=== PATIENT | female | born 1960 | race Caucasian/White ===

== ENCOUNTER → 2017-03-09 11:34 | Outpatient (CLI) | payer MEDICARE, SELFPAY ==
--- NOTE | 2017-03-09 11:51 | XR_ITS ---
XR chest 2V Ordering Physician: Reanna Perdomo Patient Age: 56 years: Female HISTORY: ITS.REASON: INFLUENZA A,COPD . cough congestion Influenza a post viral cough COPD TECHNIQUE: PA lateral chest. COMPARISON :07/16/2016 CXR. And May 2014 CXR FINDINGS Pectus excavatum deformity again noted which accentuates markings at lung bases as well as accentuates heart size. . Left ventricular configuration on this chest film. Nothing definitely acute additionally seen today. The chest film appears stable when compared back to 2017 study. Generous gas within the splenic flexure noted today. Mild dextroscoliosis lower thoracic spine the straightening and slight reversal of the focal lumbar junction also noted IMPRESSION: Nothing definitely acute. Pectus excavatum features again noted along with other minor stable observations.
== END ==
PROVIDERS: PCP Internal Medicine Adolescent Medicine; Visit Provider Nurse Practitioner Family
DX: J10.1 Influenza due to other identified influenza virus with other respiratory manifestations (principal); R05 Cough; J44.1 Chronic obstructive pulmonary disease with (acute) exacerbation
CPT/HCPCS: 71046

== ENCOUNTER → 2018-02-08 14:00 | Outpatient (POV) | payer MEDICARE, SELFPAY ==
[2018-02-08 14:39] VITALS: BP 144/78; PULSE 84; RESP 18; O2SAT 99
--- NOTE | 2018-02-09 08:51 | HMH.PMCON ---
Assessment and Plan (1) Back pain Current visit: Yes Status: Chronic Qualifiers: Back pain location: low back pain Chronicity: chronic Back pain laterality: midline Sciatica presence: with sciatica Sciatica laterality: bilateral sciatica Qualified Code(s): M54.41 - Lumbago with sciatica, right side; M54.42 - Lumbago with sciatica, left side; G89.29 - Other chronic pain Category: Medical Code(s): M54.9 - Dorsalgia, unspecified - Assessment and plan all Dx Assessment and Plan for all problems:: Patient does not have any recent MRI. We will get a recent MRI and then review it together at her next appointment. She is on a low dose [place] prescription from her primary care physician which I do believe is quite appropriate. This note was dictated using voice recognition software and may contain errors or omissions HPI - Data of Consult Consult date: 02/08/18 Requesting Physician: Manisha Gomez APRN Primary Care Provider: Reanna Perdomo APRN - Consult Narrative Reason for consult: Back pain History of present illness: Ms. Mata is a 57 year old female presents today for consultation in regards to her chronic low back pain. Patient states that she has had pain for many years. She states all activity increases her pain while standing decreases her pain. Patient has numbness and tingling bilateral legs and feet. Patient was seen by pain management in [place] however she did not feel like she was taking care of there. Patient has had no relief with healthcare economics manager and minimal relief with physical therapy. She is tried and failed Celebrex, amitriptyline, diazepam, Lexapro, gabapentin, [place], morphine, naproxen, Relafen. She is also utilized a TENS unit. She rates the pain 7 out of 10 CC: Manisha Gomez APRN [facility] History I have reviewed the patient's past medical history: Yes Medical History: Reports:: Hyperlipidemia, Hypertension Laterality Cases: Left: Total Hip Replacement - *Social History Smoking Status: Current every day smoker Tobacco Type: cigarettes Alcohol Intake: never Occupational Status: other Housing: house - Psychiatric History Expresses thoughts of harming self/others: None Suicide Plan Description: No Plan *Family Hx:: Unable to obtain Review of Systems - Review of Systems ROS General: no recent weight change, no fever, no sleep disturbances Respiratory: no cough, no shortness of air, no recurring pulmonary infections Cardiovascular/Peripheral Vascular: No chest pain, No palpitations, no edema, no shortness of breath. Gastrointestinal: no incontinence, normal bowel movements reported Genitourinary: no incontinence Musculoskeletal: Back pain, leg pain Psychiatric: normal mood/ affect Neurological: [denies weakness in extremities], [denies balance issues] Meds Allergies Allergy/AdvReac Type Severity Reaction Status Date / Time Cephalosporin Allergy Unknown Uncoded 02/10/17 15:28 Penicillin Allergy Unknown Uncoded 02/10/17 15:28 Objective Vital signs: Pulse Resp BP Pulse Ox 84 18 144/78 H 99 02/08/18 14:39 02/08/18 14:39 02/08/18 14:39 02/08/18 14:39 Narrative: Physical Exam General: Alert and oriented x3, no acute distress, pleasant and cooperative, [on room air] Lungs: Resps E/U, Symmetrical chest expansion, Eyes: PERRL Musculoskeletal: Flexion and extension of lumbar spine somewhat guarded secondary to pain, deep tendon reflexes normal, strength in upper and lower extremities [5/5], slightly antalgic gait noted Neurological: speech clear, 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
--- NOTE | 2018-02-09 08:55 | P.CONS_ITS ---
Assessment and Plan (1) Back pain Current visit: Yes Status: Chronic Qualifiers: Back pain location: low back pain Chronicity: chronic Back pain laterality: midline Sciatica presence: with sciatica Sciatica laterality: bilateral sciatica Qualified Code(s): M54.41 - Lumbago with sciatica, right side; M54.42 - Lumbago with sciatica, left side; G89.29 - Other chronic pain Category: Medical Code(s): M54.9 - Dorsalgia, unspecified - Assessment and plan all Dx Assessment and Plan for all problems:: Patient does not have any recent MRI. We will get a recent MRI and then review it together at her next appointment. She is on a low dose [place] prescription from her primary care physician which I do believe is quite appropriate. This note was dictated using voice recognition software and may contain errors or omissions HPI - Data of Consult Consult date: 02/08/18 Requesting Physician: Manisha Gomez APRN Primary Care Provider: Reanna Perdomo APRN - Consult Narrative Reason for consult: Back pain History of present illness: Ms. Mata is a 57 year old female presents today for consultation in regards to her chronic low back pain. Patient states that she has had pain for many years. She states all activity increases her pain while standing decreases her pain. Patient has numbness and tingling bilateral legs and feet. Patient was seen by pain management in [place] however she did not feel like she was taking care of there. Patient has had no relief with transitional care nurse and minimal relief with physical therapy. She is tried and failed Celebrex, amitriptyline, diazepam, Lexapro, gabapentin, [place], morphine, naproxen, Relafen. She is also utilized a TENS unit. She rates the pain 7 out of 10 CC: Manisha Gomez APRN [facility] History I have reviewed the patient's past medical history: Yes Medical History: Reports:: Hyperlipidemia, Hypertension Laterality Cases: Left: Total Hip Replacement - *Social History Smoking Status: Current every day smoker Tobacco Type: cigarettes Alcohol Intake: never Occupational Status: other Housing: house - Psychiatric History Expresses thoughts of harming self/others: None Suicide Plan Description: No Plan *Family Hx:: Unable to obtain Review of Systems - Review of Systems ROS General: no recent weight change, no fever, no sleep disturbances Respiratory: no cough, no shortness of air, no recurring pulmonary infections Cardiovascular/Peripheral Vascular: No chest pain, No palpitations, no edema, no shortness of breath. Gastrointestinal: no incontinence, normal bowel movements reported Genitourinary: no incontinence Musculoskeletal: Back pain, leg pain Psychiatric: normal mood/ affect Neurological: [denies weakness in extremities], [denies balance issues] Meds Allergies Allergy/AdvReac Type Severity Reaction Status Date / Time Cephalosporin Allergy Unknown Uncoded 02/10/17 15:28 Penicillin Allergy Unknown Uncoded 02/10/17 15:28 Objective Vital signs: Pulse Resp BP Pulse Ox 84 18 144/78 H 99 02/08/18 14:39 02/08/18 14:39 02/08/18 14:39 02/08/18 14:39 Narrative: Physical Exam General: Alert and oriented x3, no acute distress, pleasant and cooperative, [on room air] Lungs: Resps E/U, Symmetrical chest expansion, Eyes: PER
== END ==
PROVIDERS: PCP Nurse Practitioner Family; Visit Provider Clinical Nurse Specialist Family Health
DX: M54.41 Lumbago with sciatica, right side (principal); M54.42 Lumbago with sciatica, left side; G89.29 Other chronic pain
CPT/HCPCS: 99202

== ENCOUNTER → 2018-09-22 07:36 | Outpatient (CLI) | payer MEDICARE, SELFPAY ==
--- NOTE | 2018-09-22 07:46 | AS_ITS ---
Renal Arterial Duplex Indications: 405.91 Unspecified renovascular hypertension. IMPRESSIONS 1. Greater than 60% stenosis involving the right renal artery 2. Greater than 60% stenosis involving the left renal artery. Consider CTA for confirmation. History: Risk factors: Hypertension. Complete renal arterial duplex. Duplex scan and Doppler flow study including spectral analysis, color and mims scale imaging. Height: Height: 160cm. Height: 63in. Weight: Weight: 63.5kg. Weight: 139.7lb. Body mass index: BMI: 24.8kg/m^2. Body surface area: BSA: 1.69m^2. Location: Vascular laboratory. Patient status: Outpatient. Tables: Arterial flow: + +-------+--------+ Location V sys V ed + +-------+--------+ Right renal - proximal 301cm/s 68.2cm/s + +-------+--------+ Right renal - mid 277cm/s 70.5cm/s + +-------+--------+ Right renal - distal 232cm/s 56.4cm/s + +-------+--------+ Left renal - proximal 338cm/s 66.4cm/s + +-------+--------+ Left renal - mid 175cm/s 38.1cm/s + +-------+--------+ Left renal - distal 127cm/s 25cm/s + +-------+--------+ Right renal-origin 278cm/s 78cm/s + +-------+--------+ Left renal-origin 308cm/s 77.5cm/s + +-------+--------+ Aorta-prox 129cm/s -------- + +-------+--------+ Renal anatomy: + +-----+-----+ Left Right + +-----+-----+ Long axis 8cm 7.8cm + +-----+-----+ Short axis 5.2cm 5.3cm + +-----+-----+ Cortical thickness 0.8cm 1cm + +-----+-----+ Velocity ratios: + +-----+ V sys + +-----+ Right renal/aortic 2.3 + +-----+ Left renal/aortic 2.6 + +-----+ (Report amended ) Electronically signed by: Nathen Araujo [id number]
== END ==
PROVIDERS: PCP Internal Medicine Adolescent Medicine; Visit Provider Nurse Practitioner Family
DX: I10 Essential (primary) hypertension (principal); I73.9 Peripheral vascular disease, unspecified
CPT/HCPCS: 93976

== ENCOUNTER → 2018-10-11 10:20 | Outpatient (POV) | payer MEDICARE, SELFPAY ==
[2018-10-11 11:01] VITALS: BP 197/93; PULSE 89; RESP 18; O2SAT 98; BMI 24.7
[2018-10-11 11:55] VITALS: BP 145/89; PULSE 89; RESP 22; O2SAT 97; BMI 68.6
--- NOTE | 2018-10-11 13:08 | P.CONS_ITS ---
[facility] Pain Management SOAP Note Subjective:: Patient is a pleasant 58-year-old white female who presents today for follow-up. She was seen back in January however she states she has no recollection of this visit. She has difficulty with her short-term memory. Most of the patient's pain is in her low back radiating down into her legs. Patient had a long discussion in regards to moving forward with the plan of care is quite open to injective therapy which I believe would benefit her however she has no recent diagnostic imaging. She rates her pain a 10 out of 10 she states that the hard to do activities of daily living. I discussed with her the importance of getting an MRI and she is willing to do this. ROS General: no recent weight change, no fever, no sleep disturbances Respiratory: no cough, no shortness of air, no recurring pulmonary infections Cardiovascular/Peripheral Vascular: No chest pain, No palpitations, no edema, no shortness of breath. Gastrointestinal: no incontinence, normal bowel movements reported Genitourinary: no incontinence Musculoskeletal: Back pain, leg pain Psychiatric: normal mood/ affect Neurological: [denies weakness in extremities], [denies balance issues] Objective:: Physical Exam General: Alert and oriented x3, no acute distress, pleasant and cooperative, [on room air] Lungs: Resps E/U, Symmetrical chest expansion, Eyes: PERRL Musculoskeletal: Flexion and extension of lumbar spine somewhat guarded secondary to pain, deep tendon reflexes normal, strength in upper and lower extremities [5/5], [abnormal gait noted] Neurological: speech clear, turbine engineer equal, no gross sensory deficits Assessment:: Degenerative disc disease lumbar spine with lumbar radiculopathy, back pain Plan:: We will send the patient for an MRI to help discern pathology. I do believe she potentially could benefit from some injection therapy. I will follow-up with the patient after her MRI reassess her symptoms at that time she has been instructed to call the office if she has any issues prior to her next appointm ent. Dr. Maza has reviewed this note and agrees with this plan of care. This note was dictated using voice recognition software and may contain errors or omissions Pain Management Hx Components *Have you ever received a pneumonia vaccine?: No *Have you received a flu vaccine this season?: No - *Social History *Occupational Status:: other *Travel in the last 8 weeks: None
== END ==
PROVIDERS: PCP Nurse Practitioner Family; Visit Provider Clinical Nurse Specialist Family Health
DX: M51.16 Intervertebral disc disorders with radiculopathy, lumbar region (principal)
CPT/HCPCS: 99212

== ENCOUNTER → 2018-10-21 11:44 | Outpatient (CLI) | payer MEDICARE, SELFPAY ==
--- NOTE | 2018-10-21 11:48 | MR_ITS ---
PROCEDURE: MR LUMBAR SPINE WO CON CLINICAL INDICATION: BACK PAIN Low back pain, bilateral leg pain numbness and tingling in in COMPARISON: BRW/O MRI-BRAIN W/O from 07/03/2015 TECHNIQUE: Standard multiplanar multiecho sequences are performed without contrast. 3-D MIP and myelographic images are also rendered and reviewed FINDINGS: There is mild lumbar scoliosis convex left. There is multilevel degenerative disc disease. The spinal cord ends at the L1-L2 level. T10-T11: Degenerative disc disease there is foraminal narrowing secondary to asymmetric bulging of the disc eccentric to the left at the foraminal region with facet hypertrophic change. T11-T12: Degenerate disc disease with mild bulging of the disc slightly eccentric to the left. T12-L1: Mild degenerative disc disease with bulging disc slightly eccentric to the right with mild right-sided foraminal narrowing. L1-L2: Degenerate disc disease with bulging disc along with facet ligamentum hypertrophy with right lateral recess and foraminal narrowing L1-L2: Degenerate disc disease with bulging disc with facet ligamentum hypertrophy with severe bilateral lateral recess and severe bilateral foraminal narrowing with transverse narrowing of the canal. L3-L4: Degenerate disc disease with bulging disc along with facet ligamentum hypertrophy with severe bilateral lateral recess and foraminal narrowing. There is transverse narrowing of the canal at this level. L4-5: Degenerative disc disease with bulging disc which is eccentric toward the left with facet and ligamentum hypertrophy with severe bilateral lateral recess and foraminal narrowing worse on the left. There is transverse narrowing of the canal. L5-S1: Degenerate disc disease with bulging disc with facet ligamentum hypertrophy with severe bilateral foraminal narrowing. No extruded herniated disc is evident. The IMPRESSION: Multilevel lumbar spondylosis with degenerative disc disease, bulging disc, facet ligamentum hypertrophy with lateral recess and foraminal narrowing along with transverse canal stenosis and scoliosis. Please see above for detailed description at each level Dictated by: Nathen Araujo MD 10/22/2018 06:48 Signed by: <Electronically signed by Nathen Araujo MD in [place]> 10/22/2018 06:48
== END ==
PROVIDERS: PCP Nurse Practitioner Family; Visit Provider Clinical Nurse Specialist Family Health
DX: M54.5 Low back pain (principal)
CPT/HCPCS: 72148; 76376

== ENCOUNTER → 2018-11-09 09:45 | Outpatient (POV) | payer MEDICARE, SELFPAY ==
[2018-11-09 09:54] VITALS: BP 149/71; PULSE 76; RESP 18; O2SAT 98; BMI 23.7
--- NOTE | 2018-11-09 12:40 | HMH.PAINSOAP ---
[facility] Pain Management SOAP Note Subjective:: We with patient is a pleasant 58-year-old white female who presents today for follow-up after updated MRI. Patient rates her pain today a 10 out of 10 worse when she standing and alleviated with sitting and leaning forward. She has weakness in her legs when she standing for long periods of time she has difficulty walking. Patient's MRI does show with ligamentum flavum hypertrophy along with degenerative disc disease and facet issues. ROS General: no recent weight change, no fever, no sleep disturbances Respiratory: no cough, no shortness of air, no recurring pulmonary infections Cardiovascular/Peripheral Vascular: No chest pain, No palpitations, no edema, no shortness of breath. Gastrointestinal: no incontinence, normal bowel movements reported Genitourinary: no incontinence Musculoskeletal: Back pain, leg pain Psychiatric: normal mood/ affect Neurological: Weakness in bilateral lower extremities and standing, [denies balance issues] Objective:: Physical Exam General: Alert and oriented x3, no acute distress, pleasant and cooperative, [on room air] Lungs: Resps E/U, Symmetrical chest expansion, Eyes: PERRL Musculoskeletal: Flexion and extension of lumbar spine somewhat guarded secondary to pain, deep tendon reflexes normal, strength in upper and lower extremities [5/5], [abnormal gait noted] Neurological: speech clear, manager code equal, no gross sensory deficits Assessment:: Degenerative disc disease lumbar spine with lumbar radiculopathy along with spinal stenosis and neurogenic claudication Plan:: We will set her up for an L4-L5 lumbar epidural steroid injection to see if this is beneficial along with an epidurogram to see if a mild would also benefit her. I discussed in great length in regards to her mild procedure and epidural. Patient is not on any anticoagulation therapy she does not have a current infection. She is tried and failed anti-inflammatories, medications. She is continuing a home stretching program. I will follow-up with her after injection reassess her symptoms at that time. Dr. Maza has reviewed this note and agrees with this plan of care. This note was dictated using voice recognition software and may contain errors or omissions [facility] History I have reviewed the patient's past medical history: Yes Medical History: Reports:: Hyperlipidemia, Hypertension *Have you ever received a pneumonia vaccine?: Yes *Have you received a flu vaccine this season?: Yes Other Medical History: Reports: Fibromyalgia Laterality Cases: Left: Total Hip Replacement - *Social History Smoking Status: Former smoker Tobacco Type: cigarettes #Yrs smoked (if former smoker): 45 Alcohol Intake: former Substance Use Type: denies use *Occupational Status:: other Housing: house *Travel in the last 8 weeks: None Family Hx:: Coronary Artery Disease
--- NOTE | 2018-11-09 12:43 | P.CONS_ITS ---
[facility] Pain Management SOAP Note Subjective:: We with patient is a pleasant 58-year-old white female who presents today for follow-up after updated MRI. Patient rates her pain today a 10 out of 10 worse when she standing and alleviated with sitting and leaning forward. She has weakness in her legs when she standing for long periods of time she has difficulty walking. Patient's MRI does show with ligamentum flavum hypertrophy along with degenerative disc disease and facet issues. ROS General: no recent weight change, no fever, no sleep disturbances Respiratory: no cough, no shortness of air, no recurring pulmonary infections Cardiovascular/Peripheral Vascular: No chest pain, No palpitations, no edema, no shortness of breath. Gastrointestinal: no incontinence, normal bowel movements reported Genitourinary: no incontinence Musculoskeletal: Back pain, leg pain Psychiatric: normal mood/ affect Neurological: Weakness in bilateral lower extremities and standing, [denies balance issues] Objective:: Physical Exam General: Alert and oriented x3, no acute distress, pleasant and cooperative, [on room air] Lungs: Resps E/U, Symmetrical chest expansion, Eyes: PERRL Musculoskeletal: Flexion and extension of lumbar spine somewhat guarded secondary to pain, deep tendon reflexes normal, strength in upper and lower extremities [5/5], [abnormal gait noted] Neurological: speech clear, design specialist equal, no gross sensory deficits Assessment:: Degenerative disc disease lumbar spine with lumbar radiculopathy along with spinal stenosis and neurogenic claudication Plan:: We will set her up for an L4-L5 lumbar epidural steroid injection to see if this is beneficial along with an epidurogram to see if a mild would also benefit her. I discussed in great length in regards to her mild procedure and epidural. Patient is not on any anticoagulation therapy she does not have a current infection. She is tried and failed anti-inflammatories, medications. She is continuing a home stretching program. I will follow-up with her after injection reassess her symptoms at that time. Dr. Mzaa has reviewed this note and agrees with this plan of care. This note was dictated using voice recognition software and may contain errors or omissions [facility] History I have reviewed the patient's past medical history: Yes Medical History: Reports:: Hyperlipidemia, Hypertension *Have you ever received a pneumonia vaccine?: Yes *Have you received a flu vaccine this season?: Yes Other Medical History: Reports: Fibromyalgia Laterality Cases: Left: Total Hip Replacement - *Social History Smoking Status: Former smoker Tobacco Type: cigarettes #Yrs smoked (if former smoker): 45 Alcohol Intake: former Substance Use Type: denies use *Occupational Status:: other Housing: house *Travel in the last 8 weeks: None Family Hx:: Coronary Artery Disease
== END ==
PROVIDERS: PCP Nurse Practitioner Family; Visit Provider Clinical Nurse Specialist Family Health
DX: M48.062 Spinal stenosis, lumbar region with neurogenic claudication (principal)
CPT/HCPCS: 99212

== ENCOUNTER → 2018-12-28 11:01 | Outpatient (POV) | payer MEDICARE, SELFPAY ==
[2018-12-28 11:15] VITALS: BP 184/80; PULSE 116; RESP 18; O2SAT 98; BMI 24.7
--- NOTE | 2018-12-28 13:12 | HMH.PAINSOAP ---
[facility] Pain Management SOAP Note Subjective:: Patient is a pleasant 58-year-old white female who presents today for follow-up after lumbar epidural steroid injection. Patient stated that after her injection she had 10 days of pain-free. Patient got over 80% benefit from her injection. She is not a candidate for mild procedure however she may be a candidate for intrathecal pain pump at a future time. Patient states that she is tickled to about her success with her epidural steroid injection. She would like to continue with the series of 3 epidurals given the efficacy of the last one. We will set her up for this. Patient rates her pain 8 out of 10 stating that her pain is begun to return. ROS General: no recent weight change, no fever, no sleep disturbances Respiratory: no cough, no shortness of air, no recurring pulmonary infections Cardiovascular/Peripheral Vascular: No chest pain, No palpitations, no edema, no shortness of breath. Gastrointestinal: no new onset incontinence, normal bowel movements reported Genitourinary: no new onset incontinence Musculoskeletal: Back pain, leg pain Psychiatric: normal mood/ affect Neurological: [denies new onset weakness in extremities], [denies new onset balance issues] Objective:: Physical Exam General: Alert and oriented x3, no acute distress, pleasant and cooperative, [on room air] Lungs: Resps E/U, Symmetrical chest expansion, Eyes: PERRL Musculoskeletal: Flexion and extension of lumbar spine somewhat guarded secondary to pain, deep tendon reflexes normal, strength in upper and lower extremities [5/5], [abnormal gait noted] Neurological: 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 I will follow-up with the patient after her injection reassess her symptoms at that time she is been instructed to call the office if she has any issues prior to her next appointment. She is continuing her anti-inflammatories and her home stretching program. She is not on any anticoagulation therapy. Dr. Maza has reviewed this note and agrees with this plan of care. This note was dictated using voice recognition software and may contain errors or omissions [facility] History I have reviewed the patient's past medical history: Yes Medical History: Reports:: Hyperlipidemia, Hypertension Denies:: Cancer, Diabetes Mellitus Type 1, Diabetes Mellitus Type 2, MRSA, Seizures *Have you ever received a pneumonia vaccine?: Yes *Have you received a flu vaccine this season?: Yes Other Medical History: Reports: Fibromyalgia Laterality Cases: Left: Total Hip Replacement Amputation: No Fractures: No - *Social History Smoking Status: Former smoker Tobacco Type: cigarettes #Yrs smoked (if former smoker): 45 Alcohol Intake: former Substance Use Type: denies use *Occupational Status:: other Housing: house Household Members: spouse *Travel in the last 8 weeks: None Family Hx:: Coronary Artery Disease
--- NOTE | 2018-12-28 13:15 | P.CONS_ITS ---
[facility] Pain Management SOAP Note Subjective:: Patient is a pleasant 58-year-old white female who presents today for follow-up after lumbar epidural steroid injection. Patient stated that after her injection she had 10 days of pain-free. Patient got over 80% benefit from her injection. She is not a candidate for mild procedure however she may be a candidate for intrathecal pain pump at a future time. Patient states that she is tickled to about her success with her epidural steroid injection. She would like to continue with the series of 3 epidurals given the efficacy of the last one. We will set her up for this. Patient rates her pain 8 out of 10 stating that her pain is begun to return. ROS General: no recent weight change, no fever, no sleep disturbances Respiratory: no cough, no shortness of air, no recurring pulmonary infections Cardiovascular/Peripheral Vascular: No chest pain, No palpitations, no edema, no shortness of breath. Gastrointestinal: no new onset incontinence, normal bowel movements reported Genitourinary: no new onset incontinence Musculoskeletal: Back pain, leg pain Psychiatric: normal mood/ affect Neurological: [denies new onset weakness in extremities], [denies new onset balance issues] Objective:: Physical Exam General: Alert and oriented x3, no acute distress, pleasant and cooperative, [on room air] Lungs: Resps E/U, Symmetrical chest expansion, Eyes: PERRL Musculoskeletal: Flexion and extension of lumbar spine somewhat guarded secondary to pain, deep tendon reflexes normal, strength in upper and lower extremities [5/5], [abnormal gait noted] Neurological: speech clear, iron melter equal, no gross sensory deficits Assessment:: Degenerative disc disease lumbar spine with lumbar radiculopathy Plan:: We will plan a repeat L4-L5 lumbar epidural steroid injection given the efficacy of the last one I do believe it would be beneficial. I will follow-up with the patient after her injection reassess her symptoms at that time she is been instructed to call the office if she has any issues prior to her next appointment. She is continuing her anti-inflammatories and her home stretching program. She is not on any anticoagulation therapy. Dr. Maza has reviewed this note and agrees with this plan of care. This note was dictated using voice recognition software and may contain errors or omissions [facility] History I have reviewed the patient's past medical history: Yes Medical History: Reports:: Hyperlipidemia, Hypertension Denies:: Cancer, Diabetes Mellitus Type 1, Diabetes Mellitus Type 2, MRSA, Seizures *Have you ever received a pneumonia vaccine?: Yes *Have you received a flu vaccine this season?: Yes Other Medical History: Reports: Fibromyalgia Laterality Cases: Left: Total Hip Replacement Amputation: No Fractures: No - *Social History Smoking Status: Former smoker Tobacco Type: cigarettes #Yrs smoked (if former smoker): 45 Alcohol Intake: former Substance Use Type: denies use *Occupational Status:: other Housing: house Household Members: spouse *Travel in the last 8 weeks: None Family Hx:: Coronary Artery Disease
== END ==
PROVIDERS: PCP Nurse Practitioner Family; Visit Provider Clinical Nurse Specialist Family Health
DX: M51.16 Intervertebral disc disorders with radiculopathy, lumbar region (principal)
CPT/HCPCS: 99212

== ENCOUNTER → 2019-05-23 14:48 | Outpatient (POV) | payer MEDICARE, SELFPAY ==
--- NOTE | 2019-05-23 15:45 | HMH.VVPMSO ---
[facility] Virtual Visit SOAP Consent for virtual visit:: With the recent concerns about the COVID-19, we are trying to minimize exposure to you by shifting to telehealth appointments whenever possible. It restricts me from seeing you in person, but the trade off is protecting you during this pandemic. Can you see and hear me okay, and do you consent to this option? If not, I would be happy to see if we can reschedule your appointment in the future, when feasible. Has patient consented to this virtual visit?: Yes Subjective:: This visit was performed via telemedicine. The patient has chosen to have telemedicine visit for his/her symptoms due to risk associated with COVID19 Patient is a pleasant 58-year-old white female who presents today for follow-up via telehealth medicine. She is being treated for low back pain with lumbar radiculopathy symptoms. She has undergone 2 lumbar epidural steroid injections for which she got approximately 80 to 85% relief with each injection that did last 2 to 3 weeks. Patient rates her pain a 10 out of 10 today. She says that her pain is worse with standing and walking and is improved with sitting. She says that her pain has been ongoing for greater than a year. She has tried physical therapy. She does continue with ice and heat therapies and does continue with a home stretching program. Review of Systems General: No recent weight changes, no fever, no sleep disturbances Respiratory: No cough, no shortness of air, no recurring pulmonary infections Cardiovascular/peripheral vascular: No chest pain, no palpitations, no edema, no shortness of breath Gastrointestinal: No new onset incontinence, normal bowel movements reported Genitourinary: No new onset incontinence Musculoskeletal: Low back pain Psychiatric: Normal mood/affect Neurological: [Denies weakness in extremities], [denies balance issues] Objective:: Physical exam Constitutional: Healthy appearing, well-developed, alert and oriented, no acute distress noted Psychiatric: Judgment and insight intact. Mood normal, affect appropriate Head: Normocephalic, atraumatic, extraocular movement intact Respiratory: Nonlabored, non-dyspneic Cardiovascular: No cyanosis, no clubbing, no edema observed Skin: Head and neck, no lesions or rashes noted. Bilateral upper extremities no lesions or rashes noted Gait: Able to walk without assist of heel and toe walk Neurological: Sensation grossly intact per patient C3-T1 Musculoskeletal: Full range of motion, positive straight leg raise Assessment:: Degenerative disc disease lumbar spine with lumbar radiculopathy symptoms Plan:: Unfortunately, the patient I did discuss that we will not be able to perform any type of injective therapies at this time secondary to the coronavirus pandemic and the restrictions within the clinic. For now, we will order the patient diclofenac 75 mg 1 tablet p.o. twice daily. We will give her 2 months worth of medication. When we are able to resume injective therapy, we will schedule the patient for an appointment. She is not on anticoagulation therapy. Patient has been instructed to contact clinic if she has any concerns before her next appointment. Dr. Maza has reviewed this note and agrees with this plan of care. This note was dictated using voice recognition software and make contain errors or omissions. This encounter was performed as telemedicine. The visit was performed via a secure to a video and audio to minimize risk and transmission of COVID19. Patient understands limitations of telemedicine visits which include inability to check reflexes, possibly missing subtle findings on the physical exam. Alternative options were presented to the patient and the patient did elect to proceed with the visit. The patient and I specifically discussed risk factors for COVID19. These risks include, but are not limited to age greater than 60, heart or lung disease, diabetes,
== END ==
PROVIDERS: Visit Provider Clinical Nurse Specialist Family Health
DX: M51.16 Intervertebral disc disorders with radiculopathy, lumbar region (principal)
CPT/HCPCS: 99212

== ENCOUNTER 2019-06-03 11:14 | Day surgery (SDC) | payer MEDICARE, SELFPAY ==
[2019-06-03 11:51] VITALS: BP 132/52; PULSE 69; RESP 18; TEMP 36.5; O2SAT 96; BMI 51.9
[2019-06-03 12:20] VITALS: BP 115/78; PULSE 82; RESP 18; O2SAT 99
[2019-06-03 12:21] VITALS: BP 115/78; PULSE 89; RESP 18; O2SAT 99
--- NOTE | 2019-06-03 12:29 | P.PCN_ITS ---
- Procedure Date: 06/03/19 Time: 12:29 Anesthesiologist:: Benjamin Maza MD Complications:: None Pre-procedure Diagnosis:: Degenerative disc disease of lumbar spine with lumbar radicular symptoms and scoliosis Post-procedure Diagnosis:: Same Indications for Procedure:: This patient is a pleasant 58-year-old white female who we are treating for low back pain with lumbar radicular symptoms. She is done well with previous lumbar epidural steroid injections. Her pain is now gotten severe in her back and down her right leg. It is affecting her activities of daily living. Is affecting h er functionality. We will do a repeat lumbar epidural steroid injection today to keep her out of the emergency room and off oral opioids. Procedure Details:: Lumbar epidural steroid injection under fluoroscopy Informed consent was obtained and the risk and benefits of the procedure was explained to the patient. The patient was taken to the procedure room. The patient was placed prone on the procedure table. The patient was prepped and draped in sterile fashion. C-arm fluoroscopy was used to view the lumbar spine. Skin and subcutaneous tissues were anesthetized using lidocaine. I placed an 18-gauge epidural needle and advanced into the L4-L5 interspace using fluoroscopic guidance and [id number] to air. After confirmation of needle placement in the epidural space with dye I injected 2 mL of lidocaine 1.5% with Depo-Medrol 80 mg. Patient tolerated the procedure well with no complications. Plan and Disposition:: We will follow-up with her in 2 weeks. Will reevaluate her symptoms at that time. She does have severe degenerative arthritis of her left hip. I believe she needs to see Dr. Eagle for possible hip replacement.
[2019-06-03 12:30] VITALS: BP 140/52; PULSE 75; RESP 18; O2SAT 96
== END 2019-06-03 12:30 | disposition home or self-care (01) ==
LOC: SC.PAINP 11:16
PROVIDERS: PCP Nurse Practitioner Family; Visit Provider Anesthesiology
DX: M51.16 Intervertebral disc disorders with radiculopathy, lumbar region (principal); M41.9 Scoliosis, unspecified
CPT/HCPCS: 62323; J1040; Q9966

== ENCOUNTER → 2019-06-28 09:19 | Outpatient (CLI) | payer MEDICARE, SELFPAY ==
--- NOTE | 2019-06-28 09:31 | XR_ITS ---
PROCEDURE: XR HIP LT 2-3V W/PELVIS CLINICAL INDICATION: Left hip pain COMPARISON: [id number] HIP LT 2-3V W/PELVIS IF PERFOR from 07/17/2015 FINDINGS: There are mild osteoarthritic changes of the left hip. No acute fracture or dislocation. No lytic or blastic change. There has been a prior right hip hemiarthroplasty. Levoscoliosis noted of lumbar spine IMPRESSION: Mild osteoarthritis of the left hip Dictated by: Nathen Araujo MD 06/28/2019 14:32 Electronically signed by Nathen Araujo MD in [facility] 06/28/2019 14:32
--- NOTE | 2019-06-28 10:06 | XR_ITS ---
PROCEDURE: XR SHOULDER LT MIN 2V CLINICAL INDICATION: LT SHOULDER PAIN Shoulder pain COMPARISON: No exams were available for comparison FINDINGS: Osteoarthritic changes are present at the acromioclavicular joint and glenohumeral joint. There is mild subacromial stenosis. Small inferior osteophytes are present at the AC joint. No acute fracture or dislocation. No lytic or blastic change IMPRESSION: Osteoarthritis with subacromial stenosis Dictated by: Nathen Araujo MD 06/28/2019 14:31 Electronically signed by Nathen Araujo MD in [facility] 06/28/2019 14:31
[2019-06-28 11:54] VITALS: BP 114/74; PULSE 80; RESP 18; TEMP 36.6; O2SAT 98; BMI 24.7
--- NOTE | 2019-06-28 15:38 | HMH.PAINSOAP ---
[facility] Pain Management SOAP Note Subjective:: Patient is a pleasant 58-year-old white female who presents today for follow-up. Patient states that she did extremely well after her lumbar epidural injection. However she described her pain today a 10 out of 10. She had a telehealth visit with Jolie at her last appointment where she received diclofenac however she states she was unsure of if she was supposed to take it or not. I encouraged her to do so. Patient does have difficulty with her short-term memory. Patient does well with her epidural injections. She is currently receiving bursa and intra-articular hip injections from Dr. Eagle. She states this is beneficial. ROS General: no recent weight change, no fever, no sleep disturbances Respiratory: no cough, no shortness of air, no recurring pulmonary infections Cardiovascular/Peripheral Vascular: No chest pain, No palpitations, no edema, no shortness of breath. Gastrointestinal: no new onset incontinence, normal bowel movements reported Genitourinary: no new onset incontinence Musculoskeletal: Back pain Psychiatric: normal mood/ affect Neurological: [denies new onset weakness in extremities], [denies new onset balance issues] Objective:: Physical Exam General: Alert and oriented x3, no acute distress, pleasant and cooperative, [on room air] Lungs: Resps E/U, Symmetrical chest expansion, Eyes: PERRL Musculoskeletal: Flexion and extension of lumbar spine somewhat guarded secondary to pain, deep tendon reflexes normal, strength in upper and lower extremities [5/5], [abnormal gait noted] Neurological: speech clear, unit operator equal, no gross sensory deficits Assessment:: Degenerative disc disease lumbar spine with lumbar radiculopathy and scoliosis Plan:: Schedule repeat L4-L5 lumbar epidural steroid injection for her after she is finished with her treatment with Dr. Eagle. Patient's been instructed to call the office if she has any issues prior to her next appointment. Patient not on any anticoagulation therapy. Dr. Maza has reviewed this note and agrees with this plan of care. This note was dictated using voice recognition software and may contain errors or omissions [facility] History I have reviewed the patient's past medical history: Yes Medical History: Reports:: Anxiety, Depression, Gastroesophageal Reflux Disease(GERD), Hyperlipidemia, Hypertension Denies:: Cancer, Diabetes Mellitus Type 1, Diabetes Mellitus Type 2, MRSA, Seizures *Have you ever received a pneumonia vaccine?: Yes *Have you received a flu vaccine this season?: Yes Other Medical History: Reports: Anemia, Arthritis, Fibromyalgia Laterality Cases: Right: Total Hip Replacement, Bilateral: Carpal Tunnel Release, Tonsillectomy Other Surgeries: Yes: Cholecystectomy, Colonoscopy, EGD Amputation: No Fractures: No - *Social History Smoking Status: Former smoker Tobacco Type: cigarettes #Yrs smoked (if former smoker): 45 Alcohol Intake: former Substance Use Type: denies use *Occupational Status:: other Housing: house Household Members: spouse *Travel in the last 8 weeks: None - Psychiatric History Pschychiatric History:: Reports:: Anxiety, Depression Family Hx:: Coronary Artery Disease
== END ==
PROVIDERS: PCP Nurse Practitioner Family; Visit Provider Orthopaedic Surgery
DX: M25.552 Pain in left hip (principal); M75.42 Impingement syndrome of left shoulder; M25.512 Pain in left shoulder
CPT/HCPCS: 73030; 73502; 99212

== ENCOUNTER 2019-08-05 09:04 | Day surgery (SDC) | payer MEDICARE, SELFPAY ==
[2019-08-05 09:22] VITALS: BP 158/63; PULSE 88; RESP 18; TEMP 36.8; O2SAT 98; BMI 23.9
[2019-08-05 09:44] VITALS: BP 152/78; PULSE 82; RESP 18; O2SAT 99
[2019-08-05 09:45] VITALS: BP 148/78; PULSE 81; RESP 18; O2SAT 99
--- NOTE | 2019-08-05 09:51 | HMH.PMPROC ---
- Procedure Date: 08/05/19 Time: 09:51 Anesthesiologist:: Benjamin Maza MD Complications:: None Pre-procedure Diagnosis:: Degenerative disc disease of lumbar spine with lumbar radicular symptoms Post-procedure Diagnosis:: Same Indications for Procedure:: This patient is a pleasant 58-year-old white female who we are treating for low back pain with lumbar radicular symptoms. She has done well with epidural steroid injections in the past. She was 80 to 90% better. Her pain is now returned. It is been sometime since her last injection. We will do repeat lumbar epidural steroid injection under fluoroscopy today. She does receive bursa and intra-articular hip injections from Dr. Eagle. These also have helped. Procedure Details:: Epidural steroid injection under fluoroscopy Informed consent was obtained and the risk and benefits of the procedure was explained to the patient. The patient was taken to the procedure room. The patient was placed prone on the procedure table. The patient was prepped and draped in sterile fashion. C-arm fluoroscopy was used to view the lumbar spine. Skin and subcutaneous tissues were anesthetized using lidocaine. I placed an 18-gauge epidural needle and advanced into the L4-L5 interspace using fluoroscopic guidance and [id number] to air. After confirmation of needle placement in the epidural space with dye I injected 2 mL of lidocaine 1.5% with Depo-Medrol 80 mg. Patient tolerated the procedure well with no complications. Plan and Disposition:: We will follow-up with her in 2 weeks. Will reevaluate her symptoms at that time.
[2019-08-05 09:54] VITALS: BP 151/58; PULSE 80; RESP 20; O2SAT 98
== END 2019-08-05 09:55 | disposition home or self-care (01) ==
LOC: SC.PAINP 09:08
PROVIDERS: PCP Nurse Practitioner Family; Visit Provider Anesthesiology
DX: M51.16 Intervertebral disc disorders with radiculopathy, lumbar region (principal); I10 Essential (primary) hypertension; Z72.0 Tobacco use; E78.5 Hyperlipidemia, unspecified; R00.2 Palpitations; M79.7 Fibromyalgia; F41.9 Anxiety disorder, unspecified; F32.9 Major depressive disorder, single episode, unspecified; Z86.73 Personal history of transient ischemic attack (TIA), and cerebral infarction without residual deficits; Z87.39 Personal history of other diseases of the musculoskeletal system and connective tissue; Z96.649 Presence of unspecified artificial hip joint; Z90.89 Acquired absence of other organs; Z88.0 Allergy status to penicillin
CPT/HCPCS: 62323; J1040; Q9966

== ENCOUNTER → 2019-08-29 09:29 | Outpatient (POV) | payer MEDICARE, SELFPAY ==
[2019-08-29 09:59] VITALS: BP 131/54; PULSE 88; RESP 18; O2SAT 98; BMI 24.3
--- NOTE | 2019-08-29 10:04 | HMH.PAINSOAP ---
[facility] Pain Management SOAP Note Subjective:: She is a pleasant 59-year-old white female who presents today for follow-up after lumbar epidural steroid injection. Patient has done well however her pain is returned. She rates an 8 out of 10 and states it is quite different being much more focal in her low back. Patient has difficulty with rotation of lumbar spine. Patient has an MRI showing facet arthropathy. Patient I discussed medial branch block/facet joint injection and potential neurotomy. Patient understands and would like to move forward. Patient is no longer seeing Dr. Eagle for her hip pain. She is not on any anticoagulation therapy. ROS General: no recent weight change, no fever, no sleep disturbances Respiratory: no cough, no shortness of air, no recurring pulmonary infections Cardiovascular/Peripheral Vascular: No chest pain, No palpitations, no edema, no shortness of breath. Gastrointestinal: no new onset incontinence, normal bowel movements reported Genitourinary: no new onset incontinence Musculoskeletal: Back pain Psychiatric: normal mood/ affect Neurological: [denies new onset weakness in extremities], [denies new onset balance issues] Objective:: Physical Exam General: Alert and oriented x3, no acute distress, pleasant and cooperative, [on room air] Lungs: Resps E/U, Symmetrical chest expansion, Eyes: PERRL Musculoskeletal: Flexion and extension of lumbar spine somewhat guarded secondary to pain, deep tendon reflexes normal, strength in upper and lower extremities [5/5], antalgic gait noted Neurological: speech clear, podiatrist equal, no gross sensory deficits Assessment:: Indurative disc disease lumbar spine lumbar facet arthropathy lumbar spinal stenosis. Plan:: We will move forward with an L4-L5 L5-S1 bilateral medial branch block. Patient and I discussed potential neurotomy in the future. She is uninterested in any implantable therapies. Patient is not on any anticoagulation therapy. I will follow-up with her after this reassess her symptoms at that time she has been instructed to call the office if she has any issues prior to her next appointment. Dr. Maza has reviewed this note and agrees with this plan of care. This note was dictated using voice recognition software and may contain errors or omissions [facility] History I have reviewed the patient's past medical history: Yes Medical History: Reports:: Anxiety, Depression, Gastroesophageal Reflux Disease(GERD), Hyperlipidemia, Hypertension, Palpitations Denies:: Cancer, Diabetes Mellitus Type 1, Diabetes Mellitus Type 2, MRSA, Seizures *Have you ever received a pneumonia vaccine?: Yes *Have you received a flu vaccine this season?: Yes Other Medical History: Reports: Anemia, Arthritis, Fibromyalgia Laterality Cases: Right: Total Hip Replacement, Bilateral: Carpal Tunnel Release, Tonsillectomy Other Surgeries: Yes: Cholecystectomy, Colonoscopy, EGD Amputation: No Fractures: No - *Social History Smoking Status: Current every day smoker Tobacco Type: cigarettes # Packs/Day (cigarettes): 1 #Yrs smoked (if former smoker): 45 Alcohol Intake: former Substance Use Type: denies use *Occupational Status:: other Housing: house Household Members: spouse *Travel in the last 8 weeks: None - Psychiatric History Pschychiatric History:: Reports:: Anxiety, Depression Family Hx:: Coronary Artery Disease
== END ==
PROVIDERS: PCP Nurse Practitioner Family; Visit Provider Clinical Nurse Specialist Family Health
DX: M51.36 Other intervertebral disc degeneration, lumbar region (principal); M48.061 Spinal stenosis, lumbar region without neurogenic claudication; M12.88 Other specific arthropathies, not elsewhere classified, other specified site
CPT/HCPCS: 99212

== ENCOUNTER 2019-09-09 11:51 | Day surgery (SDC) | payer MEDICARE, SELFPAY ==
[2019-09-09 12:06] VITALS: BP 135/71; PULSE 105; RESP 18; TEMP 36.4; O2SAT 98; BMI 24.3
--- NOTE | 2019-09-09 12:45 | HMH.PMPROC ---
- Procedure Date: 09/09/19 Time: 12:45 Anesthesiologist:: Benjamin Maza MD Complications:: None Pre-procedure Diagnosis:: Degenerative disc disease of lumbar spine with lumbar spondylosis and facet arthropathy of lumbar spine Post-procedure Diagnosis:: Same Indications for Procedure:: This patient is a pleasant 59-year-old white female who we are treating for low back pain with lumbar spondylosis and facet arthropathy of lumbar spine. She has had a lumbar epidural steroid injection. She did very well with this injection. Now she has increasing low back pain which is axial over the facet joints. More pain with extension and twisting. We will lower lumbar medial branch block/facet joint injections of L4-5 and L5-S1 today. Procedure Details:: Lumbar medial branch block Informed consent was obtained and the risks and benefits of the procedure was explained to the patient. The back was prepped using ChloraPrep. The skin and subcutaneous tissues were anesthetized using lidocaine. I placed 22-gauge spinal needles into the facet joint/medial branches of L4-L5 and L5-S1 bilaterally. Needle placement was confirmed with dye. After this we injected 3 mL bupivacaine 0.25% and Depo-Medrol 20 mg into each facet joint/medial branch of L4-L5 and L5-S1 bilaterally. We used a total of 80 mg Depo-Medrol for both levels bilaterally. The patient tolerated the procedure well with no complications. Plan and Disposition:: We will follow-up with her in 2 weeks. Will reevaluate symptoms at that time. We will refill her diclofenac. This will be for 75 mg twice a day we will try to call it in for 3 months.
[2019-09-09 12:49] VITALS: BP 117/85; PULSE 85; RESP 18; O2SAT 98
[2019-09-09 12:51] VITALS: BP 120/87; PULSE 79; RESP 18; O2SAT 98
== END 2019-09-09 13:05 | disposition home or self-care (01) ==
LOC: SC.PAINP 11:52
PROVIDERS: PCP Nurse Practitioner Family; Visit Provider Anesthesiology
DX: M51.36 Other intervertebral disc degeneration, lumbar region (principal); M47.816 Spondylosis without myelopathy or radiculopathy, lumbar region; M12.88 Other specific arthropathies, not elsewhere classified, other specified site; I10 Essential (primary) hypertension; M81.0 Age-related osteoporosis without current pathological fracture; M79.7 Fibromyalgia; E06.9 Thyroiditis, unspecified; F41.9 Anxiety disorder, unspecified; F32.9 Major depressive disorder, single episode, unspecified; Z90.89 Acquired absence of other organs; Z87.39 Personal history of other diseases of the musculoskeletal system and connective tissue; Z72.0 Tobacco use
CPT/HCPCS: 64493; 64494; Q9966

== ENCOUNTER 2019-10-22 12:30 | Emergency (ER) | payer MEDICARE, SELFPAY ==
--- NOTE | 2019-10-22 12:43 | HMH.EDGENADL ---
ED Disposition Clinical Impression: Dizziness UTI (urinary tract infection) Qualifiers: Urinary tract infection type: acute cystitis Hematuria presence: without hematuria Qualified Code(s): N30.00 - Acute cystitis without hematuria Disposition: Home, Self-Care Condition on Discharge: Good Additional Instructions: Take antibiotic for urinary tract infection. Follow-up with your PCP in the next couple of days for reevaluation. If you have any new, changing, worsening, or concerning symptoms, come back to the emergency department. Prescriptions: levoFLOXacin [Levaquin 750mg tablet] 750 mg PO DAILY 3 Days #3 tab Transmission Status: Pending to [id number] Referrals: Reanna Perdomo APRN [Primary Care Provider] - Time of Disposition: 14:52 - Critical Care Critical Care Time: No Attestation: On , the high probability of a clinically significant, sudden or life threatening deterioration of the following system(s) required my full and direct attention, intervention and personal management. The time I documented below is in addition to time spent performing reported procedures but includes the following listed in this critical care notation. Medical Decision Making - Medical Records Medical records reviewed: Yes: I reviewed the patient's medical records. MR Comment: 59-year-old female presents the emergency department with dizziness. She denies any chest pain or other symptoms at this time, however states that she is asked [id number] questions asking for her mother over the last few weeks, who is been for many years. She is also had this intermittent dizziness for many months. This has happened on and off but she is also on benzo and opiate therapy. She arrives to the ED today hemodynamically stable, with reassuring vital signs, and looks well on exam. On reassessment, patient remains well. She remains completely stable here and continues to answer questions appropriately and is not altered. also agrees she is at her baseline. I cannot explain her intermittent questioning about her mother, unless is due to the fact that she is on opiate and benzo therapy and may be taking these medications too closely together or too frequently. She is positive for both here on her UDS. CT of the head is unremarkable. She is not dizzy at this time and does not have any worrisome symptoms. Labs are nonactionable other than urinary tract infection. Creatinine mildly increased, pushed PO fluids here. She is allergic to cephalosporins and penicillin, will treat with levofloxacin and advise that she follow-up with her PCP in the next couple of days for further evaluation. They were also given strict return precautions and discharge instructions including follow-up for further evaluation and treatment and verbalized understanding and agree with the plan. Safe to discharge. - Hardeep Inquiry Pt receiving controlled substance: No Vital Signs: 10/22/19 12:50 Temperature 97.8 F Temperature Source Oral Pulse Rate [Right Radial] 68 Respiratory Rate 15 Blood Pressure [Right Arm] 115/54 L Blood Pressure Mean [Right Arm] 74 02 Sat by Pulse Oximetry 98 - Lab Data Lab Results 10/22/19 12:40: Urine Color Yellow, Urine Appearance Cloudy, Urine pH 5.5, Ur Specific Wells >= 1.030, Urine Protein 1+, Urine Glucose (UA) Negative, Urine Ketones Negative, Urine Blood Trace-i, Urine Nitrate Positive, Urine Bilirubin Negative, Urine Urobilinogen 0.2, Ur Leukocyte Esterase 1+ A, Urine RBC 5-10, Urine WBC 20-50, Ur Squamous Epith Cells 3-5, Urine Bacteria 2+, Fine Granular Casts Occasional 10/22/19 12:40: Urine Opiates Screen Positive H, Urine Methadone Screen Negative, Ur Barbituates Screen Negative, Ur Phencyclidine Scrn Negative, Ur Amphetamines Screen Negative, U Benzodiazepines Scrn Positive H, Urine Cocaine Screen Negative, U Marijuana (THC) Screen Negative 10/22/19 13:00: WBC 9.1, RBC 4.18 L, Hgb 12.3, Hct 36.4 L,
[2019-10-22 12:50] VITALS: BP 115/54; PULSE 68; RESP 15; TEMP 36.6; O2SAT 98; BMI 23.1
--- NOTE | 2019-10-22 12:55 | CT_ITS ---
PROCEDURE: CT HEAD/BRAIN WO CON CLINICAL INDICATION: altered mental status Altered mental status, altered level of consciousness, confusion, disorientation, hallucinations, COMPARISON: No exams were available for comparison TECHNIQUE: Axial images obtained. All CT scans at the facility use one or more dose reduction, viz: automated exposure control, ma/kV adjustment per patient size (including targeted exams where dose is matched to indication, i.e. head), or iterative reconstruction technique. FINDINGS: No midline shift, mass effect, intracranial hemorrhage, hydrocephalus, or extra-axial fluid collection is evident. There is generalized atrophy with hypoattenuation of the periventricular white matter consistent with microangiopathic changes.. There old bilateral lacunar infarctions the basal ganglia the calvarium has an unremarkable appearance. No mastoid effusion. No sinus air-fluid level. IMPRESSION: No acute intracranial finding Dictated by: Nathen Araujo MD 10/22/2019 13:41 Nathen Araujo MD in [facility] 10/22/2019 13:41
--- NOTE | 2019-10-22 12:55 | ECG_ITS ---
APPROVED REPORT Exam: Resting ECG HR:63 bpm ECG Measurements Heart Rate 63 AXES MI 206 P 21 QRSd 98 QRS -13 QT 420 T -6 QTc 429 <Conclusion> Normal sinus rhythm Possible Left atrial enlargement Left ventricular hypertrophy Abnormal ECG Electronically signed by : David Love, 10/23/2019 19:52:15
--- NOTE | 2019-10-22 12:55 | XR_ITS ---
PROCEDURE: XR CHEST 2V CLINICAL HISTORY: ams Altered mental status, altered level of consciousness, confusion, disorientation, weakness, current smoker COMPARISON: CR CXR CHEST(2 VIEWS-NOT PORTABLE) from 05/24/[address] [facility] [address] CHEST W/O CONTRAST from 06/20/2014 CR CXR CHEST(2 VIEWS-NOT PORTABLE) from 07/16/2016 DX CXR2V XR chest 2V from 03/09/2017 FINDINGS: The cardiomediastinal silhouette and pulmonary vascularity are within normal limits. There is a severe pectus deformity. This is causing silhouetting out of the right heart border. No lobar consolidation or collapse is evident. Levoscoliosis of the lumbar spine. IMPRESSION: Pectus excavatum, no acute finding Dictated by: Nathen Araujo MD 10/22/2019 13:43 Nathen Araujo MD in [facility] 10/22/2019 13:45
[2019-10-22 13:01] LABS: Microscopic, Urine URINE MICROSCOPIC (MICROSCOPIC)
[2019-10-22 13:02] LABS: Appearance,Urine CLOUDY (Clear); Bilirubin,Urine Negative (Negative); Blood, Urine TRACE-I (Negative); Color,Urine YELLOW (Yellow); Glucose,Urine (UA) Negative (Negative); Ketones,Urine Negative (Negative); Leukocyte Esterase,Urine 1+ (Negative); Nitrate,Urine POSITIVE (Negative); PH,Urine 5.5 (5.0-8.5); Protein,Urine 1+ (Negative); Specific Gravity, Urine >= 1.030 (1.005-1.030); Urobilinogen,Urine 0.2 EU/dl (0.2)
[2019-10-22 13:13] LABS: Amphetamine/Metha Screen,Urine Negative ng/ml (<1000); Benzodiazepines Screen,Urine Positive ng/ml (<200)
[2019-10-22 13:14] LABS: Bacteria,Urine 2+ /lpf; Barbiturates Screen,Urine Negative ng/ml (<200); Cannabinoid Screen,Urine Negative ng/ml (<50); Fine Granular Casts,Urine Occasional #/lpf (0); WBC,Urine 20-50 #/hpf (0-3)
[2019-10-22 13:15] LABS: Cocaine Screen,Urine Negative ng/ml (<300)
[2019-10-22 13:16] LABS: Methadone Screen,Urine Negative ng/ml (<300); Opiate Screen,Urine Positive ng/ml (<300)
--- NOTE | 2019-10-22 13:16 | PC.NURSE ---
20g IV started in right hand
--- NOTE | 2019-10-22 13:16 | PC.NURSE ---
pt to CT via wheelchair
[2019-10-22 13:17] LABS: Phencyclidine Screen,Urine Negative ng/ml (<25)
[2019-10-22 13:20] LABS: Basophils # 0.1 K/mm3 (0-0.2); Basophils % 0.8 % (0.1-2.0); Eosinophils # 0.2 K/mm3 (0.0-0.4); Eosinophils % 2.3 % (0.1-12.0); Hematocrit 36.4 % (37.0-47.0); Hemoglobin 12.3 g/dL (12.2-16.2); Lymphocytes # 2.7 K/mm3 (0.7-4.5); Lymphocytes % 29.2 % (10-50); Mean Corpuscular HGB Conc 33.9 g/dL (31.8-35.4); Mean Corpuscular Hemoglobin 29.5 pg (27.0-31.2); Mean Corpuscular Volume 87.1 fl (81-99); Mean Platelet Volume 7.8 fl (7.4-10.4); Monocytes # 0.4 K/mm3 (0.1-1.0); Monocytes % 4.8 % (1.7-9.3); Neutrophils # 5.7 K/mm3 (1.8-7.8); Neutrophils % 62.9 % (37.0-80.0); Platelet Count 248 K/mm3 (142-424); Red Blood Count 4.18 M/mm3 (4.20-5.40); Red Cell Distribution Width 13.4 % (11.5-17.5); White Blood Count 9.1 K/mm3 (4.8-10.8)
[2019-10-22 13:31] LABS: Alanine Aminotransferase 22 U/L (12-78); Albumin Level 4.2 g/dl (3.5-5.0); Albumin/Globulin Ratio 1.3 (1.1-1.8); Alkaline Phosphatase 141 U/L (38-126); Anion Gap 12.4 mEq/L (5-15); Aspartate Amino Transferase 32 U/L (14-36); Bilirubin,Total 0.2 mg/dl (0.2-1.3); Blood Urea Nitrogen 31 mg/dl (7-17); Calcium 9.9 mg/dl (8.4-10.2); Carbon Dioxide 27 mmol/L (22.0-30.0); Chloride 104 mmol/L (98-107); Creatinine Clearance Estimated 44 mL/min (50-200); Estimated Glomerular Filt Rate 42 ml/min (>60); GFR (African American) 50 ML/MIN (>60); Globulin 3.2 g/dL (1.3-3.2); Glucose 112 mg/dl (74-100); Potassium 4.4 mmoL/L (3.5-5.1); Sodium 139 mmol/L (136-145); Total Protein,Serum 7.4 g/dl (6.3-8.2)
--- NOTE | 2019-10-22 13:34 | PC.NURSE ---
pt back from CT
[2019-10-22 13:42] LABS: Troponin I < 0.01 ng/ml (0.00-0.034)
[2019-10-22 15:10] VITALS: BP 136/72; PULSE 69; RESP 17; TEMP 36.6; O2SAT 99
== END 2019-10-22 15:10 | disposition home or self-care (01) ==
PROVIDERS: Emergency Provider Emergency Medicine; PCP Nurse Practitioner Family
DX: N30.00 Acute cystitis without hematuria (principal); I10 Essential (primary) hypertension; E78.5 Hyperlipidemia, unspecified; F41.8 Other specified anxiety disorders; K21.9 Gastro-esophageal reflux disease without esophagitis; M79.7 Fibromyalgia; Z88.0 Allergy status to penicillin; F17.210 Nicotine dependence, cigarettes, uncomplicated; Z79.899 Other long term (current) drug therapy; Z90.49 Acquired absence of other specified parts of digestive tract; Z96.641 Presence of right artificial hip joint
CPT/HCPCS: 70450; 71046; 80053; 80305; 81001; 84484; 85025; 87086; 87088; 87186; 93005; 99283

== ENCOUNTER 2019-10-28 13:14 | Emergency (ER) | payer MEDICARE, SELFPAY ==
[2019-10-28 13:31] VITALS: BP 129/79; PULSE 101; RESP 19; TEMP 36.6; O2SAT 98; BMI 23.7
[2019-10-28 13:37] LABS: Apearance,Urine Clear (Clear); Bilirubin,Urine Negative (Negative); Blood, Urine Negative (Negative); Color,Urine Yellow (Yellow); Glucose,Urine (UA) Negative (Negative); Ketones,Urine Negative (Negative); PH,Urine 5.5 (5.0-8.5); Protein,Urine 1+ (Negative); Specific Gravity, Urine 1.025 (1.005-1.030); UTC Leukocyte Esterase,Urine Negative (Negative); UTC Nitrate,Urine Negative (Negative); Urobilinogen,Urine 0.2 EU/dl (0.2)
--- NOTE | 2019-10-28 13:40 | HMH.EDUTC ---
[facility] [place] [facility] [place] Clinical Impression: Low back ache Qualifiers: Chronicity: unspecified Back pain laterality: unspecified Sciatica presence: without sciatica Qualified Code(s): M54.5 - Low back pain Disposition: Home, Self-Care Condition on Discharge: Good Instructions: DI for Low Back Pain, DI for Dependent Edema Additional Instructions: Make sure to call your Family Doctor and make appointment for further treatment and evaluation Make sure to keep feet elevated as discussed in UTC to help with swelling Return if needed Straight to ER if any life threatening symptoms, confusion chest pain etc. Follow up with Family Doctor in the next 48-72 hours if no improvement or any worsening of symptoms Referrals: Reanna Perdomo APRN [Primary Care Provider] - As needed Time of Disposition: 13:58 Medical Decision Making - Hardeep Inquiry Pt receiving controlled substance: No Hardeep was queried for this patient: No Vital Signs: 10/28/19 13:31 Temperature 97.8 F Temperature Source Oral Pulse Rate [Right Brachial] 101 H Respiratory Rate 19 Blood Pressure [Right Arm] 129/79 Blood Pressure Mean [Right Arm] 95 Blood Pressure Source [Right Arm] Automatic Cuff Blood Pressure Position [Right Arm] Sitting 02 Sat by Pulse Oximetry 98 Oxygen Delivery Method Room Air - Lab Data Lab results reviewed: Yes: I reviewed the patient's lab results. Lab Results 10/28/19 13:30: Urine Color Yellow, Urine Appearance Clear, Urine pH 5.5, Ur Specific Kennedy 1.025, Urine Protein 1+, Urine Glucose (UA) Negative, Urine Ketones Negative, Urine Blood Negative, Urine Nitrate Negative, Urine Bilirubin Negative, Urine Urobilinogen 0.2, Ur Leukocyte Esterase Negative Medical Decision Narrative: UA results discussed with patient recommended xray of back or could transfer her to the ED and she declined states that she will follow up with her PCP she just wanted to get her urine checked worried that the antibiotic didnt clear up her UTI Feet appeared swollen and family that was with her reports that she is always walking around outside Discussed with patient that when she is sitting she needs to make sure to keep feet elevated to help with swelling and patient verbalized understanding and recommended follow up with PCP florencio for further evaluation and testing if needed [facility] [place] [facility] [place] - General Stated complaint: UTI Possibly Time Seen by Provider: 10/28/19 13:35 Mode of Arrival: Ambulatory Source of Information: Patient Limitations: No Limitations Description of Symptoms (Recalled from Triage Doc. by RN): PATIENT C/O POSSIBLE UTI. STATES SHE HAS RECENTLY BEEN TREATED FOR A UTI, HOWEVER IT IS NOT GETTING BETTER HEENT Symptoms (Recalled from RN notes): No Resp Symptoms (Recalled from RN notes): No Skin Symptoms (Recalled from RN notes): No MS Symptoms (Recalled from RN notes): No Functional Status (Recalled from RN notes): WNL - History of Present Illness Provider Complaint: Patient states that she was recently seen and treated for UTI States that she finished the medication yesterday and she was still having achy like feeling in her back State that she has chronic back pain and wasn't sure if that is what she was having or if the medication didnt clear up the UTI - Related Data Home Medications Medication Instructions Recorded Confirmed albuterol sulfate 90 mcg/actuation 2 puff INHALATION Q4-6H PRN 08/23/18 10/22/19 aerosol inhaler amitriptyline 100 mg tablet 100 mg PO DAILY 08/23/18 10/22/19 aspirin 81 mg tablet,delayed 81 mg PO DAILY 08/23/18 10/22/19 release cyclobenzaprine 10 mg tablet 10 mg PO TID PRN 08/23/18 10/22/19 diazepam 10 mg tablet 10 mg PO DAILY 08/23/18 10/22/19 furosemide 20 mg tablet 40 mg PO DAILY PRN tab 08/23/18 10/22/19 hydrocodone 10 mg-acetaminophen 1 tab PO BID PRN 08/23/18 10/22/19 325 mg tablet levothyroxine 25 mcg capsule 50 mcg PO DAILY 08/23/18 10/22/19 lisinopril 20 1 tab PO DAILY 08/23/18 10/22/19 mg-h
[2019-10-28 14:00] VITALS: BP 129/79; PULSE 101; RESP 19; TEMP 36.6; O2SAT 98
== END 2019-10-28 14:02 | disposition home or self-care (01) ==
PROVIDERS: Emergency Provider Nurse Practitioner; PCP Nurse Practitioner Family
DX: M54.5 Low back pain (principal); F41.8 Other specified anxiety disorders; K21.9 Gastro-esophageal reflux disease without esophagitis; M79.7 Fibromyalgia; E78.5 Hyperlipidemia, unspecified; I10 Essential (primary) hypertension; R00.2 Palpitations; Z96.641 Presence of right artificial hip joint; F17.210 Nicotine dependence, cigarettes, uncomplicated; Z88.0 Allergy status to penicillin
CPT/HCPCS: G0463; 81003; 99201

== ENCOUNTER → 2019-11-02 11:47 | Outpatient (CLI) | payer MEDICARE, SELFPAY ==
[2019-11-02 12:09] LABS: Basophils # 0.1 K/mm3 (0-0.2); Basophils % 0.5 % (0.1-2.0); Eosinophils # 0.2 K/mm3 (0.0-0.4); Eosinophils % 1.5 % (0.1-12.0); Hematocrit 39.1 % (37.0-47.0); Lymphocytes # 2.8 K/mm3 (0.7-4.5); Lymphocytes % 27.2 % (10-50); Mean Corpuscular HGB Conc 33.3 g/dL (31.8-35.4); Mean Corpuscular Hemoglobin 29.2 pg (27.0-31.2); Mean Corpuscular Volume 87.7 fl (81-99); Mean Platelet Volume 8.1 fl (7.4-10.4); Monocytes # 0.4 K/mm3 (0.1-1.0); Monocytes % 4.3 % (1.7-9.3); Neutrophils # 6.9 K/mm3 (1.8-7.8); Neutrophils % 66.5 % (37.0-80.0); Platelet Count 229 K/mm3 (142-424); Red Blood Count 4.45 M/mm3 (4.20-5.40); Red Cell Distribution Width 12.9 % (11.5-17.5); White Blood Count 10.3 K/mm3 (4.8-10.8)
[2019-11-02 13:28] LABS: Alanine Aminotransferase 16 U/L (12-78); Albumin Level 4.3 g/dl (3.5-5.0); Albumin/Globulin Ratio 1.5 (1.1-1.8); Alkaline Phosphatase 133 U/L (38-126); Anion Gap 12.3 mEq/L (5-15); Aspartate Amino Transferase 30 U/L (14-36); Bilirubin,Total 0.2 mg/dl (0.2-1.3); Blood Urea Nitrogen 39 mg/dl (7-17); Calcium 10.1 mg/dl (8.4-10.2); Carbon Dioxide 35 mmol/L (22.0-30.0); Chloride 100 mmol/L (98-107); Estimated Glomerular Filt Rate 35 ml/min (>60); GFR (African American) 43 ML/MIN (>60); Globulin 2.9 g/dL (1.3-3.2); Glucose 110 mg/dl (74-100); Potassium 4.3 mmoL/L (3.5-5.1); Sodium 143 mmol/L (136-145); Total Protein,Serum 7.2 g/dl (6.3-8.2)
[2019-11-02 13:45] LABS: Free Thyroxine Index 2.8 ug/dL (5.93-13.13); T4 (Thyroxine) 9.3 ug/dl (5.53-11.0); Triiodothryronine (T3) Uptake 30 % (23.5-40.5)
[2019-11-02 13:58] LABS: Thyroid Stimulating Hormone 1.37 uIU/mL (0.465-4.68)
[2019-11-02 14:18] LABS: Vitamin B12 379 pg/mL (239-931)
[2019-11-03 11:51] LABS: Rapid Plasma Reagin Ab Titer Non Reactive (NonRea<1:1)
== END ==
PROVIDERS: Visit Provider Internal Medicine Adolescent Medicine
DX: R42 Dizziness and giddiness (principal); Z79.899 Other long term (current) drug therapy
CPT/HCPCS: 36415; 80053; 82607; 84436; 84443; 84479; 85025; 86592

== ENCOUNTER → 2019-11-08 08:07 | Outpatient (CLI) | payer MEDICARE, SELFPAY ==
--- NOTE | 2019-11-08 | MR_ITS ---
PROCEDURE: MR HEAD/BRAIN WO CON CLINICAL INDICATION: PERSISTENT H/A Pt has had a persistent h/a with some delusional episodes. Prior CT brain done 10/22/19 COMPARISON: CT CT HEAD/BRAIN WO CON from 10/22/2019 TECHNIQUE: Routine multiplanar multi echo sequences are performed without gadolinium enhancement. FINDINGS: No midline shift, mass effect, intracranial hemorrhage, or hydrocephalus is evident. There is generalized atrophy with scattered periventricular and subcortical T2 white matter hyperintensities consistent with ischemic gliotic change from microvascular disease. An unusual oval area of decreased diffusion signal within the right head of the caudate. There is some increased in T1 signal in this region. No calcification evident in this area on the unenhanced CT scan of 10/22/2019. There are old bilateral lacunar infarctions. The cerebellopontine angle, cerebellum, and brainstem have an unremarkable appearance the pituitary, optic chiasm, corpus callosum, and craniocervical junction have an unremarkable appearance. No mastoid effusion or sinus air-fluid level. IMPRESSION: 1. Atrophy with chronic ischemic gliotic changes and old bilateral lacunar infarctions.. 2. Unusual area of decreased diffusion signal in the head of the caudate on the right with some minimal increased T1 signal at this region. The etiology is indeterminate. Consider short-term follow-up to confirm stability. 3. Otherwise negative MRI of the brain without contrast. Dictated by: Nathen Araujo MD 11/09/2019 13:34 Nathen Araujo MD in [place] 11/09/2019 13:34
--- NOTE | 2019-11-08 09:17 | XR_ITS ---
PROCEDURE: XR SHOULDER LT MIN 2V CLINICAL INDICATION: IMPINGEMENT SYNDROM, SHOULDER L, LSHOULDER PAIN COMPARISON: CR XR SHOULDER LT MIN 2V from 06/28/2019 FINDINGS: There are mild osteoarthritic changes of the acromioclavicular joint and glenohumeral joint with subacromial stenosis. There is minimal hypertrophic change of the greater tuberosity. IMPRESSION: Mild osteoarthritic change of the glenohumeral joint and acromioclavicular joint with mild subacromial stenosis. Dictated by: Nathen Araujo MD 11/08/2019 18:36 Nathen Araujo MD in [facility] 11/08/2019 18:36
== END ==
PROVIDERS: PCP Nurse Practitioner Family; Visit Provider Internal Medicine Adolescent Medicine
DX: G44.52 New daily persistent headache (NDPH) (principal); F22 Delusional disorders; M75.42 Impingement syndrome of left shoulder; M25.512 Pain in left shoulder
CPT/HCPCS: 70551; 73030

== ENCOUNTER → 2019-12-30 11:17 | Outpatient (CLI) | payer MEDICARE, SELFPAY ==
--- NOTE | 2019-12-30 | XR_ITS ---
PROCEDURE: XR HIP LT 2-3V W/PELVIS CLINICAL INDICATION: PAIN IN LT HIP COMPARISON: CR XR HIP LT 2-3V W/PELVIS from 06/28/2019 FINDINGS: There are mild osteoarthritic changes of the left hip with minimal osteophyte formation along the inferior aspect the acetabulum. No fracture or dislocation. There is a well-circumscribed lucency through the medial aspect of the left superior pubic ramus. May represent a benign cystic lesion. Overall not significantly changed. IMPRESSION: Mild osteoarthritis of the left hip. No change with no acute finding Dictated by: Nathen Araujo MD 12/30/2019 12:42 Nathen Araujo MD in [facility] 12/30/2019 12:42
--- NOTE | 2019-12-30 | XR_ITS ---
PROCEDURE: XR HIP RT 2-3V W/PELVIS CLINICAL INDICATION: PAIN IN RT HIP Right hip pain COMPARISON: CR [id number] HIP LT 2-3V W/PELVIS IF PERFOR from 07/17/2015 CR XR HIP LT 2-3V W/PELVIS from 06/28/2019 FINDINGS: There has been prior right hip hemiarthroplasty with good alignment of the prosthesis. No evidence of prosthesis loosening. There is hypertrophy of the greater trochanter with minimal heterotopic ossification. There is a well-circumscribed lucency through the superior pubic ramus medially on the left not significantly changed. There are degenerative changes in the lumbar spine. IMPRESSION: Prior right hip hemiarthroplasty with no acute finding Dictated by: Nathen Araujo MD 12/30/2019 12:41 Nathen Araujo MD in [place] 12/30/2019 12:41
--- NOTE | 2019-12-30 11:25 | XR_ITS ---
PROCEDURE: XR LUMBAR SPINE MIN 4V CLINICAL INDICATION: PAIN IN LT HIP, PAIN IN RT HIT, MULTILEVEL DEGENERATIVE DISC COMPARISON: No exams were available for comparison FINDINGS: Moderate levoscoliosis of the lumbar spine 29 degrees with multilevel degenerative disc disease. Facet arthritic changes are present at L4-5 and S1. There is degenerative disc disease from L1-S1. Bridging osteophytes are present on the right from L1-L4 Other findings:None. IMPRESSION: Levoscoliosis with degenerative changes as described above Dictated by: Nathen Araujo MD 12/30/2019 12:44 Nathen Araujo MD in [facility] 12/30/2019 12:44
== END ==
PROVIDERS: PCP Internal Medicine Adolescent Medicine; Visit Provider Internal Medicine Adolescent Medicine
DX: M25.552 Pain in left hip (principal); M25.551 Pain in right hip; M53.9 Dorsopathy, unspecified
CPT/HCPCS: 72110; 73502

== ENCOUNTER → 2020-05-02 13:46 | Outpatient (CLI) | payer MEDICARE, SELFPAY ==
--- NOTE | 2020-05-02 13:49 | MR_ITS ---
PROCEDURE: MR HEAD/BRAIN WO CON CLINICAL INDICATION: NEW DAILY PERSISTENT HEADACHE New onset Migraine headaches x3wks ago with vomiting, dizziness, and blurred vision. Prior MRI brain 11-08-19. COMPARISON: MR MR HEAD/BRAIN WO CON from 11/08/2019 TECHNIQUE: Routine multiplanar multi echo sequences are performed without gadolinium enhancement. FINDINGS: No midline shift or mass effect is evident. There is small area of gyriform increased diffusion signal in the left occipital lobe posteriorly with I so to slightly decreased ADC signal consistent with an area of acute or subacute infarction. This was not present on 11/08/2019 exam. T2 white matter hyperintensities are present as before with mild generalized atrophy. There are old lacunar infarctions of the left basal ganglia. The cerebellopontine angles have an unremarkable appearance. There is some fluid signal intensity in the right mastoid sinus. No paranasal sinus air-fluid levels evident. The pituitary, optic chiasm, and craniocervical junction have an unremarkable appearance. There is a small defect in the splenium of the corpus callosum which appears to be old. IMPRESSION: 1. There is a small area of acute or subacute infarction in the left occipital lobe posteriorly which has developed since the previous exam. 2. Atrophy with periventricular ischemic gliotic changes 3. Small amount fluid in the right mastoid sinus Dictated by: Nathen Araujo MD 05/03/2020 11:04 Nathen Araujo MD in [facility] 05/03/2020 11:04
== END ==
PROVIDERS: PCP Internal Medicine Adolescent Medicine; Visit Provider Nurse Practitioner Family
DX: G44.52 New daily persistent headache (NDPH) (principal); R93.0 Abnormal findings on diagnostic imaging of skull and head, not elsewhere classified
CPT/HCPCS: 70551

== ENCOUNTER → 2020-05-08 10:38 | Outpatient (CLI) | payer MEDICARE, SELFPAY ==
--- NOTE | 2020-05-08 10:43 | CA_ITS ---
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: [place] Laterality: Bilateral Indications: recent CVA Risk Factors Hypertension: TIA/CVA History Smoking Doppler Spectral Velocity Analysis ECA (R) 456.10/43.60 cm/s ECA (L) 263.10/27.30 cm/s dICA (R) 79.40/21.80 cm/s dICA (L) 109.30/27.30 cm/s Stephanie (R) 190.70/59.70 cm/s Stephanie (L) 112.70/41.00 cm/s pICA (R) 208.00/71.30 cm/s pICA (L) 179.40/35.90 cm/s dCCA (R) 82.30/23.50 cm/s dCCA (L) 89.80/22.40 cm/s pCCA (R) 95.20/26.70 cm/s pCCA (L) 80.20/26.20 cm/s Vert (R) 25.10/3.20 cm/s Vert (L) 82.00/29.00 cm/s ICA/CCA 2.53 ICA/CCA 2.00 Findings Duplex evaluation visually demonstrates stenosis of the right proximal internal carotid artery in the range of 50-69%. Duplex evaluation demonstrates stenosis of the left proximal internal carotid artery in the range of 50-69%. Suggest further testing. Conclusion Duplex evaluation visually demonstrates stenosis of the right proximal internal carotid artery in the range of 50-69%. Duplex evaluation demonstrates stenosis of the left proximal internal carotid artery in the range of 50-69%. Electronically signed by : Nathen Araujo MD 05/08/2020 16:41:57
== END ==
PROVIDERS: PCP Internal Medicine Adolescent Medicine; Visit Provider Nurse Practitioner Family
DX: I63.9 Cerebral infarction, unspecified (principal); I65.23 Occlusion and stenosis of bilateral carotid arteries
CPT/HCPCS: 93880

== ENCOUNTER → 2020-05-09 10:37 | Outpatient (CLI) | payer MEDICARE, SELFPAY | PROVIDERS: PCP Nurse Practitioner Family; Visit Provider Internal Medicine Adolescent Medicine | DX: R94.31 Abnormal electrocardiogram [ECG] [EKG]; R06.09 Other forms of dyspnea; I63.9 Cerebral infarction, unspecified | CPT/HCPCS: 93270 ==

== ENCOUNTER → 2020-05-15 09:17 | Outpatient (CLI) | payer MEDICARE, SELFPAY ==
--- NOTE | 2020-05-15 | CA_ITS ---
APPROVED REPORT EXAM: Comprehensive 2D, Doppler, and color-flow Echocardiogram with Bubble study Health Equipment Servicer: ULYSSES Kyle, RVS Ht: 5 ft 3 in Wt: 140lbs BSA: 1.66 HR: 65 bpm BP: 141/66 mmHg Rhythm: NSR Indications: S/p TIA, Carotid stenosis, COPD, HTN, HLD, Palpitations,GERD Echo Enhancing Agent Indication: Rule Out Septal Defect Agent(s) / Amount(s) Used: Agitated Saline 30 cc Comments: Negative bubble study, Limited windows due to heart monitor placement and patient inablility to be positioned. 2D Dimensions IVSd 1.22 cm LVEF (Visual) 60.80 % PWd 0.89 cm LA Volume 39.20 mL LVDd 3.82 cm LA Volume Index 23.60 mL/m2 (M/F) 16-34 LVDs 2.60 cm LVOT 1.93 cm (M/F) 1.5-2.5 M-Mode Dimensions LA Diam 2.66 cm (1.9-4.0) Ao Diam 3.13 cm (2.0-3.7) TAPSE 2.15 (<1.7) LV Diastology E Decel Time 267.00 (160-240 msec) E/A Ratio 0.98 MED E' 8.60 (< 7 cm/sec) MED A' 9.10 cm/s E'/MED E' Ratio 9.34 (>14) LAT E' 10.00 (<10 cm/sec) LAT A' 6.80 cm/s E/LAT E' Ratio 8.03 (>14) Aortic Valve AO Peak GR. 4.80 mmHg Mitral Valve MV A Velocity 82.00 (40-130 cm/s) E/A Ratio 0.98 MV Decel. Time 267.00 (160-240 ms) Pulmonary Valve PV Peak Velocity 82.00 (50-150 cm/s) Tricuspid Valve TR P. Velocity 210.00 cm/s RAP Estimate 10.00 mmHg RVSP 27.60 mmHg Left Ventricle Left atrium is mildly enlarged, left ventricle is normal size, mild concentric left ventricular hypertrophy, visually estimated ejection fraction 55% with no regional wall motion abnormality, diastolic parameters are inconclusive. Right Ventricle Right atrium and right ventricle are normal size and contractility. Atria Intra-atrial septum is intact intact, there is no flow across the atrial septum, agitated saline contrast fails to identify intracardiac shunt. Aortic Valve Aortic valve is minimally thickened and fibrosed, there is no aortic stenosis or aortic insufficiency. Mitral Valve Mitral valve is grossly normal, there is trace mitral regurgitation. Tricuspid Valve Tricuspid grossly normal, there is trace tricuspid regurgitation. Tricuspid regurgitation jet velocity is inadequate for calculation of the right ventricular systolic pressure. Pulmonic Valve Pulmonic valve is poorly visualized. Great Vessels Aortic root is normal size. Pericardium No significant pericardial effusion noted. Conclusion 1. Normal left ventricular size, mild concentric left ventricular hypertrophy, visually estimated ejection fraction 55% with no regional wall motion abnormality, diastolic parameters are inconclusive. 2. Agitated saline contrast study fails to identify intracardiac shunt. 3. Trace mitral and tricuspid regurgitation. 4. No significant pericardial effusion noted. Electronically signed by : Miguel Munoz, 05/15/2020 20:10:13
== END ==
PROVIDERS: PCP Internal Medicine Adolescent Medicine; Visit Provider Nurse Practitioner Family
DX: I63.89 Other cerebral infarction (principal)
CPT/HCPCS: 93306

== ENCOUNTER → 2021-01-16 11:04 | Outpatient (CLI) | payer MEDICARE, SELFPAY | PROVIDERS: PCP Internal Medicine Adolescent Medicine; Visit Provider Nurse Practitioner Family | DX: R53.81 Other malaise (principal); R06.00 Dyspnea, unspecified | CPT/HCPCS: 93306 ==

== ENCOUNTER → 2021-01-29 08:33 | Outpatient (POV) | payer MEDICARE, SELFPAY ==
--- NOTE | 2021-01-29 09:09 | HMH.PMCON ---
Assessment and Plan (1) Degenerative disc disease, lumbar Status: Acute Category: Medical Code(s): M51.36 - Other intervertebral disc degeneration, lumbar region (2) Spondylosis Status: Acute Category: Medical Code(s): M47.9 - Spondylosis, unspecified (3) Facet arthritis of lumbar region Status: Acute Category: Medical Code(s): M47.816 - Spondylosis without myelopathy or radiculopathy, lumbar region - Assessment and plan all Dx Assessment and Plan for all problems:: Ordering Physician: Manisha Gomez APRN Date of Service: 10/21/18 Procedure(s): MR lumbar spine wo con Accession Number(s): [id number] cc: Nathen Araujo MD; Reanna Perdomo APRN~ PROCEDURE: MR LUMBAR SPINE WO CON CLINICAL INDICATION: BACK PAIN Low back pain, bilateral leg pain numbness and tingling in in COMPARISON: BRW/O MRI-BRAIN W/O from 07/03/2015 TECHNIQUE: Standard multiplanar multiecho sequences are performed without contrast. 3-D MIP and myelographic images are also rendered and reviewed FINDINGS: There is mild lumbar scoliosis convex left. There is multilevel degenerative disc disease. The spinal cord ends at the L1-L2 level. T10-T11: Degenerative disc disease there is foraminal narrowing secondary to asymmetric bulging of the disc eccentric to the left at the foraminal region with facet hypertrophic change. T11-T12: Degenerate disc disease with mild bulging of the disc slightly eccentric to the left. T12-L1: Mild degenerative disc disease with bulging disc slightly eccentric to the right with mild right-sided foraminal narrowing. L1-L2: Degenerate disc disease with bulging disc along with facet ligamentum hypertrophy with right lateral recess and foraminal narrowing L1-L2: Degenerate disc disease with bulging disc with facet ligamentum hypertrophy with severe bilateral lateral recess and severe bilateral foraminal narrowing with transverse narrowing of the canal. L3-L4: Degenerate disc disease with bulging disc along with facet ligamentum hypertrophy with severe bilateral lateral recess and foraminal narrowing. There is transverse narrowing of the canal at this level. L4-5: Degenerative disc disease with bulging disc which is eccentric toward the left with facet and ligamentum hypertrophy with severe bilateral lateral recess and foraminal narrowing worse on the left. There is transverse narrowing of the canal. L5-S1: Degenerate disc disease with bulging disc with facet ligamentum hypertrophy with severe bilateral foraminal narrowing. No extruded herniated disc is evident. The IMPRESSION: Multilevel lumbar spondylosis with degenerative disc disease, bulging disc, facet ligamentum hypertrophy with lateral recess and foraminal narrowing along with transverse canal stenosis and scoliosis. Please see above for detailed description at each level Dictated by: Nathen Araujo MD 10/22/2018 06:48 Signed by: <Electronically signed by Nathen Araujo MD in [place]> 10/22/2018 06:48 Patient has tried and failed conservative therapies such as physical therapy, oral medication, and at home exercises for greater than 6 weeks in the past. Patient is currently not in any oral pain medication. Previous injections have helped the patient. We will schedule the patient for a lumbar epidural steroid injection with epidurogram at the levels of L3-L4 L4-L5. Patient is currently on Plavix. Risk and benefits of this procedure has been discussed with the patient. We will also start the patient on Lyrica 75 mg twice a day. Patient has been instructed to contact the clinic with any concerns before the next appointment. Dr. Maza has reviewed this note and agrees with this plan of care. This note was dictated using voice recognition software and make contain errors or omissions. HPI - Data of Consult Patient: new to practice Consult date: 01/29/21 Requesting Physician: Dr. Yonny Scott - Consult Narrative
[2021-01-29 09:21] VITALS: BP 208/90; PULSE 91; RESP 18; O2SAT 98; BMI 23.6
== END ==
PROVIDERS: Visit Provider Clinical Nurse Specialist Family Health
DX: M51.36 Other intervertebral disc degeneration, lumbar region (principal); M47.9 Spondylosis, unspecified; M47.816 Spondylosis without myelopathy or radiculopathy, lumbar region
CPT/HCPCS: 99202; G0463

== ENCOUNTER 2021-02-13 08:38 | Day surgery (SDC) | payer MEDICARE, SELFPAY ==
[2021-02-13 08:46] VITALS: BP 183/71; PULSE 81; RESP 20; TEMP 36.7; O2SAT 97; BMI 23.6
[2021-02-13 08:54] VITALS: BP 148/64; PULSE 72; RESP 18; O2SAT 98
[2021-02-13 09:01] VITALS: BP 152/68; PULSE 72; RESP 18; O2SAT 98
[2021-02-13 09:15] VITALS: BP 143/63; PULSE 71; RESP 20; O2SAT 96
--- NOTE | 2021-02-13 09:40 | HMH.PMPROC ---
- Procedure Date: 02/13/21 Time: 09:40 Anesthesiologist:: Benjamin Maza MD Complications:: None Pre-procedure Diagnosis:: Degenerative disc disease of lumbar spine with lumbar radiculopathy symptoms and lumbar spinal stenosis with neurogenic claudication symptoms Post-procedure Diagnosis:: Same Indications for Procedure:: Patient is a pleasant 60-year-old white female who we are treating for low back pain with lumbar radiculopathy symptoms and lumbar spinal stenosis with neurogenic claudication symptoms. She has increasing pain in her back and down her legs especially while standing and walking. MRI does show significant degenerative changes with lumbar spinal stenosis and ligamentum flavum hypertrophy at L3-L4 and L4-L5. She also does have some scoliosis. We will plan on lumbar epidural steroid injection with epidurogram today to assess levels of stenosis and candidacy for minimally invasive lumbar decompression. Procedure Details:: Informed consent was obtained and the risk and benefits of the procedure was explained to the patient. The patient was taken to the procedure room. The patient was placed prone on the procedure table. The patient was prepped and draped in sterile fashion. C-arm fluoroscopy was used to view the lumbar spine. Skin and subcutaneous tissues were anesthetized using lidocaine. I placed an 18-gauge epidural needle and advanced into the L4-L5 interspace using fluoroscopic guidance and [id number] to air. After confirmation of needle placement in the epidural space with dye I injected 2 mL of lidocaine 1.5% with Depo-Medrol 80 mg. Patient tolerated the procedure well with no complications. Plan and Disposition:: Based on epidurogram she does have significant stenosis at L3-L4 and L4-L5. Even though she does have scoliosis she is a candidate for minimally invasive lumbar decompression bilateral L3-L4 and L4-L5. Most significant stenosis was on the left side. We will schedule for minimally invasive lumbar decompression bilateral L3-L4 and L4-L5 when approved.
== END 2021-02-13 09:15 | disposition home or self-care (01) ==
LOC: SC.PAINP 08:40
PROVIDERS: PCP Internal Medicine Adolescent Medicine; Visit Provider Anesthesiology
DX: M51.16 Intervertebral disc disorders with radiculopathy, lumbar region (principal); M48.062 Spinal stenosis, lumbar region with neurogenic claudication; E78.5 Hyperlipidemia, unspecified; I10 Essential (primary) hypertension; K21.9 Gastro-esophageal reflux disease without esophagitis; F32.A Depression, unspecified; D64.9 Anemia, unspecified; E07.9 Disorder of thyroid, unspecified; Z87.891 Personal history of nicotine dependence
CPT/HCPCS: 62323; J1040; Q9966

== ENCOUNTER → 2021-03-04 10:34 | Outpatient (POV) | payer MEDICARE, SELFPAY ==
[2021-03-04 10:48] VITALS: BP 155/85; PULSE 91; RESP 18; O2SAT 94; BMI 23.9
--- NOTE | 2021-03-04 11:23 | HMH.PAINSOAP ---
[facility] Pain Management SOAP Note Subjective:: Patient is a 60-year-old white female who presents today for follow-up. She recently had a lumbar epidural steroid injection with an epidurogram. Dr. Maza did work the patient up for possible mild L3-L4 L4-L5. Patient would like to postpone the injection due to financial reasons at this time. Patient got up to 5 days of relief with the last injection at about 70%. The patient's pain is starting to return. She does have radicular pain with numbness and tingling in both hands and feet at this time. She has been told in the past she has significant pathology to her neck as well. Today, she rates her pain at a 7 out of 10. Patient would like to proceed with a repeat injection before proceeding with a mild procedure. Review of Systems General: No recent weight changes, no fever, no sleep disturbances Respiratory: No cough, no shortness of air, no recurring pulmonary infections Cardiovascular/peripheral vascular: No chest pain, no palpitations, no edema, no shortness of breath Gastrointestinal: No new onset incontinence, normal bowel movements reported Genitourinary: No new onset incontinence Musculoskeletal: Low back pain with radiation into bilateral lower extremities Psychiatric: [Normal mood/affect] Neurological: [Denies weakness in extremities], [denies balance issues] Objective:: Physical exam General: Alert and oriented x3, no acute distress, pleasant and cooperative Lungs: Respirations even and unlabored, symmetrical chest expansion Eyes: PERRL Musculoskeletal: Flexion and extension of lumbar [spine] somewhat guarded secondary to pain, [antalgic gait noted] Neurological: Speech clear, no gross sensory deficit Assessment:: Degenerative disc disease lumbar spine with lumbar radiculopathy symptoms, spinal stenosis with neurogenic claudication symptoms Plan:: Patient would like to proceed with repeat injection?lumbar epidural steroid injection at L4-L5. She is on Plavix therapy for history of stroke. She is not diabetic. We will schedule her for the injection and see her back in clinic afterwards for further evaluation. She does understand she will need to hold her Plavix therapy which is prescribed by Dr. Jay. Possible side effects of corticosteroids have been discussed with the patient. Risks and benefits of the procedure have been explained to the patient. Patient would like to proceed with the procedure. Patient has been instructed to contact the clinic with any concerns before the next appointment. Dr. Maza has reviewed this note and agrees with this plan of care. This note was dictated using voice recognition software and make contain errors or omissions. [facility] History I have reviewed the patient's past medical history: Yes Medical History: Reports:: Anxiety, Depression, Gastroesophageal Reflux Disease(GERD), Hyperlipidemia, Hypertension, Palpitations Denies:: Cancer, Diabetes Mellitus Type 1, Diabetes Mellitus Type 2, MRSA, Seizures *Have you ever received a pneumonia vaccine?: Yes *Have you received a flu vaccine this season?: Yes Other Medical History: Reports: Anemia, Arthritis, Fibromyalgia, Hypothyroidism, Thyroid Disease Laterality Cases: Right: Total Hip Replacement, Bilateral: Carpal Tunnel Release, Tonsillectomy Other Surgeries: Yes: Cholecystectomy, Colonoscopy, EGD Amputation: No Fractures: No - *Social History Smoking Status: Former smoker Tobacco Type: cigarettes # Packs/Day (cigarettes): 1 #Yrs smoked (if former smoker): 45 Alcohol Intake: never Substance Use Type: denies use *Occupational Status:: unemployed Housing: house Household Members: other *Travel in the last 8 weeks: None - Psychiatric History Pschychiatric History:: Reports:: Anxiety, Depression Family Hx:: Coronary Artery Disease
== END ==
PROVIDERS: Visit Provider Clinical Nurse Specialist Family Health
DX: M51.16 Intervertebral disc disorders with radiculopathy, lumbar region (principal); M48.062 Spinal stenosis, lumbar region with neurogenic claudication
CPT/HCPCS: 99212; G0463

== ENCOUNTER 2021-04-12 13:08 | Day surgery (SDC) | payer MEDICARE, SELFPAY ==
[2021-04-12 13:27] VITALS: BP 154/62; BP 168/95; BP 181/73; PULSE 108; PULSE 109; RESP 18; RESP 20; TEMP 36.6; O2SAT 96; BMI 23.7
[2021-04-12 13:33] VITALS: BP 152/60; PULSE 104; RESP 18; O2SAT 96
--- NOTE | 2021-04-12 14:09 | HMH.PMPROC ---
- Procedure Date: 04/12/21 Time: 14:10 Anesthesiologist:: Benjamin Maza MD Complications:: None Pre-procedure Diagnosis:: Degenerative disc disease of lumbar spine with lumbar spinal stenosis and neurogenic claudication symptoms Post-procedure Diagnosis:: Same Indications for Procedure:: This patient is a pleasant 60-year-old white female who we are treating for low back pain with lumbar spinal stenosis and neurogenic claudication symptoms. She got up to 5 days of relief with her last lumbar epidural steroid injection she was 70 to 80% better. Pain is now returned in her back and down her legs. Is worse while walking and standing. She has significant neurogenic claudication symptoms which would benefit from the minimally invasive lumbar decompression. We will do repeat lumbar epidural steroid injection today to give her some relief of her pain symptoms. Patient wants to proceed with mill invasive lumbar decompression bilateral L3-L4 and L4-L5. Procedure Details:: Informed consent was obtained and the risk and benefits of the procedure was explained to the patient. The patient was taken to the procedure room. The patient was placed prone on the procedure table. The patient was prepped and draped in sterile fashion. C-arm fluoroscopy was used to view the lumbar spine. Skin and subcutaneous tissues were anesthetized using lidocaine. I placed an 18-gauge epidural needle and advanced into the L4-L5 interspace using fluoroscopic guidance and [id number] to air. After confirmation of needle placement in the epidural space with dye I injected 2 mL of lidocaine 1.5% with Depo-Medrol 80 mg. Patient tolerated the procedure well with no complications. Plan and Disposition:: We will seek approval and plan on mill invasive lumbar decompression bilateral L3-L4 and L4-L5. I do believe the patient would significantly benefit from this. She does not necessarily have to have an epidural during the procedure as it is difficult in placement.
== END 2021-04-12 14:10 | disposition home or self-care (01) ==
LOC: SC.PAINP 13:09
PROVIDERS: PCP Internal Medicine Adolescent Medicine; Visit Provider Anesthesiology
DX: M51.36 Other intervertebral disc degeneration, lumbar region (principal); M48.062 Spinal stenosis, lumbar region with neurogenic claudication
CPT/HCPCS: 62323; 76000; J1040; Q9966

== ENCOUNTER → 2022-03-18 12:43 | Outpatient (CLI) | payer MEDICARE, SELFPAY ==
--- NOTE | 2022-03-18 12:55 | XR_ITS ---
FINAL REPORT CLINICAL HISTORY: LT RIB PAIN,SOB COMPARISON: 10/22/2019 FINDINGS: Two views of the chest show chronic left pleural scarring. The lungs are otherwise clear. Pulmonary vascularity is normal. Heart and mediastinum are unremarkable. No rib fracture or rib destruction is identified No pleural effusion is present. IMPRESSION: No active disease. Reviewed, Interpreted and Dictated by Stephanie Wharton MD Transcribed by Thais Greenwood Authenticated and [facility]
== END ==
PROVIDERS: PCP Internal Medicine Adolescent Medicine; Visit Provider Nurse Practitioner Family
DX: R06.02 Shortness of breath (principal); R07.81 Pleurodynia
CPT/HCPCS: 71046

== ENCOUNTER 2022-10-20 11:31 | Emergency (ER) | payer MEDICARE, SELFPAY ==
[2022-10-20 11:32] VITALS: BP 222/128; BP 236/105; PULSE 105; RESP 18; TEMP 36.7; O2SAT 98; BMI 23.2
--- NOTE | 2022-10-20 11:42 | ECG_ITS ---
APPROVED REPORT Exam: Resting ECG HR:99 bpm ECG Measurements Heart Rate 99 AXES NV 168 P 70 QRSd 91 QRS -5 QT 348 T 56 QTc 404 Conclusion SINUS RHYTHM RIGHT ATRIAL ENLARGEMENT [0.3mV P-WAVE] LEFT ATRIAL ENLARGEMENT [-0.15mV P-WAVE IN V1/V2] LEFT VENTRICULAR HYPERTROPHY AND ST-T CHANGE [VOLTAGE CRITERIA PLUS ST/T ABNORMALITY] ABNORMAL ECG UNCONFIRMED REPORT Electronically signed by : Yonny Scott MD 10/21/2022 17:22:48
--- NOTE | 2022-10-20 11:48 | PC.NURSE ---
Dr. Gomez at [facility]
--- NOTE | 2022-10-20 11:56 | CT_ITS ---
FINAL REPORT TECHNIQUE: thin section axial CT with and without IV contrast supplemented with multiplanar 3-D reconstruction of the head. This study was performed with techniques to keep radiation doses as low as reasonably achievable, (ALARA)individualized dose reduction techniques using automated exposure control or adjustment of mA and/or kV according to the patient's size were employed. CLINICAL HISTORY: numbness in fingers, htn FINDINGS: HEAD CT: The ventricles are normal in size. There is no evidence of hemorrhage. No masses are identified. No extra-axial fluid is seen. The sinuses are normal. CTA: The cranial circulation is unremarkable. There is no significant stenosis, aneurysm or occlusion. IMPRESSION: No acute process. Reviewed, Interpreted and Dictated by Partha Rome MD Transcribed by Bree Monae Authenticated and . [facility]
--- NOTE | 2022-10-20 11:56 | CT_ITS ---
FINAL REPORT TECHNIQUE: Postcontrast axial images of the chest were performed in a CTA protocol. This study was performed with techniques to keep radiation doses as low as reasonably achievable, (ALARA). Individualized dose reduction technique using automated exposure control or adjustment of mA and/or kV according to the patient's size were employed. CLINICAL HISTORY: LUE numbness and shoulder pain with HTN FINDINGS: The heart is normal in size. Mild pectus deformity is seen. No adenopathy is identified. No pleural or pericardial effusion is identified. The thoracic aorta is normal in caliber with no focal aneurysm or dissection identified. There is no filling defect to suggest pulmonary embolism. There is dense airspace opacity in the medial left lung base likely due to chronic pneumonia or aspiration with associated bronchiectasis.. The images of the upper abdomen demonstrate postoperative changes of cholecystectomy but are otherwise unremarkable. IMPRESSION: No evidence for PE on this exam. Dense airspace opacity in the medial left lung base likely due to chronic pneumonia or aspiration with associated bronchiectasis. Reviewed, Interpreted and Dictated by Partha Rome MD Transcribed by Bree Monae Authenticated and . [facility]
--- NOTE | 2022-10-20 11:56 | CT_ITS ---
FINAL REPORT TECHNIQUE: NASCET technique utilized for stenosis evaluation. CLINICAL HISTORY: LUE numbness (with severe HTN) FINDINGS: RIGHT CAROTID: Dense calcification is seen of the distal right common carotid artery. There is 40% stenosis of the proximal right internal carotid artery. LEFT CAROTID: Left common carotid artery is patent. There is high-grade narrowing of the proximal left ICA of approximately 80%. VERTEBRALS: The vertebrals are patent. No significant stenosis is present. IMPRESSION: High-grade narrowing of the proximal left ICA of approximately 80%. 40% stenosis of the proximal right ICA. Reviewed, Interpreted and Dictated by Partha Rome MD Transcribed by Bree Monae Authenticated and [facility]
[2022-10-20 12:01] VITALS: BP 234/99; PULSE 97; O2SAT 96
--- NOTE | 2022-10-20 12:02 | CT_ITS ---
FINAL REPORT TECHNIQUE: multiple axial CT images were performed from the foramen magnum to the vertex without enhancement. CLINICAL HISTORY: AMS FINDINGS: There is extensive decreased attenuation in the periventricular white matter change likely related to small vessel disease. Old lacunar infarcts are seen at the heads of the caudate. There is encephalomalacia in the left occipital lobe. There is no evidence of hemorrhage. No masses are identified. No extra-axial fluid is seen. The sinuses are normal. IMPRESSION: Atrophy and chronic changes without acute process. Reviewed, Interpreted and Dictated by Partha Rome MD Transcribed by Bree Monae Authenticated and . [facility]
--- NOTE | 2022-10-20 12:02 | HMH.EDGENADL ---
Discharge Plan Disposition Patient Disposition: Home, Self-Care Prescriptions Prescriptions: No Action metoprolol succinate 100 mg tablet extended release 24 hr 100 mg PO DAILY pramipexole 1 mg tablet 1 mg PO TID PRN (Reason: rls) furosemide 20 mg tablet 20 mg PO DAILY PRN (Reason: FLUID) levothyroxine 25 mcg capsule 50 mcg PO DAILY rosuvastatin 20 MG tablet 20 mg PO DAILY lisinopril-hydrochlorothiazide 1 EACH tablet 1 tab PO DAILY Referrals Follow up/Referrals: Hugo Padilla MD [Staff Physician] - See instructions oYnny Scott MD [Primary Care Provider] - See instructions Activity Restrictions/Add. Instructions Additional Instructions/Restrictions: Your left arm paresthesias and neuropathic symptoms in the left upper extremity most likely secondary to cervical radiculopathy. I would recommend you follow-up with your primary care doctor to discuss getting an MRI of your cervical spine as well as physical therapy. There is no evidence of any stroke today however you did have 80% stenosis of your internal carotid artery on the left. Your left upper extremity symptoms are most likely not associated with the internal carotid stenosis that was found yet this degree of stenosis needs to be considered for possible carotid endarterectomy or interventional treatment. This can be discussed with Dr. Padilla and he can arrange therapy as indicated. I want you to follow-up with cardiology as soon as possible next available appointment to discuss blood thinning medication and possible surgical intervention. I would recommend in the meantime you at least take an 81 mg daily aspirin. You may also discuss your poorly controlled hypertension with the machine operators as well. Clinical Impressions Clinical Impression: Hypertension, Arm paresthesia, left, Carotid artery stenosis Discharge ED Provider: Gin Gomez General Adult [facility] General Chief complaint: Headache Stated complaint: high blood pressure Time Seen by Provider: 10/20/22 11:47 Mode of Arrival: Ambulatory Source of Information: Patient Limitations: No Limitations Description of Symptoms (Recalled from ER Triage Doc. by RN): Pt sent from Dr. Scott's office for evaluation r/t elevated bp. Pt reports was seeing Dr. Scott today r/t tingling from fingers on L hand to shoulder then down L side of body down to toes, x3 weeks. Pt reports hx of hypertension, takes lisinopril at night. Pt does c/o headache that started this morning, states she did not sleep lastnight and has not slept well in several night. Pt reports feeling anxious. Pt denies cp, SOA or dizziness History of Present Illness HPI narrative: 62-year-old female sent from Dr. Potts's office for hypertension. States she been having left upper extremity numbness over the last 3 weeks has been shooting down her left arm with paresthesias and she states that it got to the point where she was frustrated with it went to Dr. Potts. She had no other symptoms other than some discomfort between her shoulder blades no significant chest pain when he found her to have significant hypertension sent her directly to the emergency department. She does take some antihypertensive medications and states that her blood pressure is always very high when she sees Dr. Potts and was actually normal when she took it earlier today. She denies any changes mental status changes urine output any shortness of breath. Related Data Home Medications Medication Instructions Recorded Confirmed furosemide 20 mg tablet 20 mg PO DAILY PRN FLUID 08/23/18 04/12/21 levothyroxine 25 mcg capsule 50 mcg PO DAILY THYROID 08/23/18 04/12/21 metoprolol succinate 100 mg 100 mg PO DAILY BLOOD PRESSURE 08/23/18 04/12/21 tablet,extended release 24 hr pramipexole 1 mg tablet 1 mg PO TID PRN rls 08/23/18 04/12/21 rosuvastatin 20 mg tablet 20 mg PO DAILY Cholesterol 10/22/19 04/12/21 lisinopril 20 1 tab PO DAILY Hypertensio
[2022-10-20 12:11] LABS: Basophils # 0.1 K/mm3 (0-0.2); Basophils % 0.7 % (0.1-2.0); Chloride 103 mmol/L (98-107); Eosinophils # 0.1 K/mm3 (0.0-0.4); Eosinophils % 1.2 % (0.1-12.0); Hematocrit 50.8 % (37.0-47.0); Hemoglobin 15.7 g/dL (12.2-16.2); Lymphocytes % 31.9 % (10-50); Mean Corpuscular HGB Conc 30.9 g/dL (31.8-35.4); Mean Corpuscular Hemoglobin 26.8 pg (27.0-31.2); Mean Corpuscular Volume 86.8 fl (81-99); Mean Platelet Volume 7.7 fl (7.4-10.4); Monocytes # 0.5 K/mm3 (0.1-1.0); Monocytes % 4.9 % (1.7-9.3); Neutrophils # 5.7 K/mm3 (1.8-7.8); Neutrophils % 61.3 % (37.0-80.0); Platelet Count 299 K/mm3 (142-424); Red Blood Count 5.85 M/mm3 (4.20-5.40); Red Cell Distribution Width 12.8 % (11.5-17.5); White Blood Count 9.3 K/mm3 (4.8-10.8)
[2022-10-20 12:12] LABS: Potassium 4.2 mmoL/L (3.5-5.1); Sodium 141 mmol/L (136-145)
[2022-10-20 12:14] LABS: Alanine Aminotransferase 22 U/L (12-78); Albumin Level 4.5 g/dl (3.5-5.0); Albumin/Globulin Ratio 1.2 (1.1-1.8); Alkaline Phosphatase 159 U/L (38-126); Anion Gap 14.2 mEq/L (5-15); Aspartate Amino Transferase 32 U/L (14-36); Bilirubin,Total 0.4 mg/dl (0.2-1.3); Blood Urea Nitrogen 15 mg/dl (7-17); Calcium 10.6 mg/dl (8.4-10.2); Carbon Dioxide 28 mmol/L (22.0-30.0); Creatinine Clearance Estimated 53 mL/min (50-200); Estimated Glomerular Filt Rate 56 ml/min (>60); GFR (African American) 68 ML/MIN (>60); Globulin 3.9 g/dL (1.3-3.2); Glucose 140 mg/dl (74-100); Total Protein,Serum 8.4 g/dl (6.3-8.2)
[2022-10-20 12:15] LABS: Magnesium 2.1 mg/dl (1.6-2.3)
[2022-10-20 12:17] LABS: Activated Partial Thrombo Time 25.8 seconds (22.8-30.6); INR 0.95 (0.9-1.1); Prothrombin Time 10.3 seconds (10.1-12.5)
--- NOTE | 2022-10-20 12:24 | PC.NURSE ---
pt to ct
[2022-10-20 12:29] LABS: Troponin I < 0.01 ng/ml (0.00-0.034)
[2022-10-20 12:34] LABS: Appearance,Urine SL CLOUDY (Clear); Bilirubin,Urine Negative (Negative); Blood, Urine Negative (Negative); Color,Urine YELLOW (Yellow); Glucose,Urine (UA) Negative (Negative); Ketones,Urine Negative (Negative); Leukocyte Esterase,Urine Negative (Negative); Microscopic, Urine URINE MICROSCOPIC (MICROSCOPIC); Nitrate,Urine Negative (Negative); Protein,Urine Negative (Negative); Specific Gravity, Urine 1.015 (1.005-1.030); Urobilinogen,Urine 0.2 EU/dl (0.2)
[2022-10-20 12:54] LABS: Bacteria,Urine Trace /lpf; RBC,Urine Occasional #/hpf (0-3); Squamous Epithelial Cell,Urine Occasional #/hpf (0-5); WBC,Urine Occasional #/hpf (0-3)
[2022-10-20 13:01] VITALS: BP 155/109; PULSE 95; O2SAT 98
[2022-10-20 13:30] VITALS: BP 198/91; PULSE 89; RESP 20; O2SAT 98
--- NOTE | 2022-10-20 13:32 | PC.NURSE ---
Received report from Jose STROUD; assumed patient care. Rounded on patient; pillow provided. Call oh within reach of patient
--- NOTE | 2022-10-20 13:53 | PC.NURSE ---
checked on pt she was resting in bed no needs call light at bs
[2022-10-20 14:02] VITALS: BP 142/96; PULSE 88; RESP 20; O2SAT 98
[2022-10-20 14:23] VITALS: BP 142/96; PULSE 90; RESP 20; TEMP 36.7; O2SAT 98
== END 2022-10-20 14:19 | disposition home or self-care (01) ==
PROVIDERS: Emergency Provider Student in an Organized Health Care Education/Training Program; PCP Internal Medicine Adolescent Medicine
DX: I10 Essential (primary) hypertension (principal); R51.9 Headache, unspecified; I65.29 Occlusion and stenosis of unspecified carotid artery; R01.1 Cardiac murmur, unspecified; E78.5 Hyperlipidemia, unspecified; F17.210 Nicotine dependence, cigarettes, uncomplicated
CPT/HCPCS: 70450; 70496; 70498; 71275; 80053; 81001; 83735; 84484; 85025; 85610; 85730; 93005; 96361; 96374; 99285; Q9967

== ENCOUNTER → 2022-10-29 23:53 | Outpatient (CLI) | payer MEDICARE, SELFPAY ==
[2022-10-29 19:16] LABS: Alanine Aminotransferase 18 U/L (12-78); Albumin Level 4.8 g/dl (3.5-5.0); Albumin/Globulin Ratio 1.3 (1.1-1.8); Alkaline Phosphatase 134 U/L (38-126); Anion Gap 16.5 mEq/L (5-15); Aspartate Amino Transferase 28 U/L (14-36); Bilirubin,Total 0.4 mg/dl (0.2-1.3); Blood Urea Nitrogen 15 mg/dl (7-17); Carbon Dioxide 26 mmol/L (22.0-30.0); Chloride 104 mmol/L (98-107); Estimated Glomerular Filt Rate 56 ml/min (>60); GFR (African American) 68 ML/MIN (>60); Globulin 3.6 g/dL (1.3-3.2); Glucose 105 mg/dl (74-100); Magnesium 2.1 mg/dl (1.6-2.3); Phosphorous 4.4 mg/dl (2.5-4.5); Potassium 4.5 mmoL/L (3.5-5.1); Sodium 142 mmol/L (136-145); Total Protein,Serum 8.4 g/dl (6.3-8.2)
[2022-10-29 19:25] LABS: Free T4 (Free Thyroxine) 1.25 ng/dl (0.78-2.19)
[2022-10-29 19:47] LABS: Basophils # 0.1 K/mm3 (0-0.2); Basophils % 0.7 % (0.1-2.0); Eosinophils # 0.1 K/mm3 (0.0-0.4); Hematocrit 49.7 % (37.0-47.0); Hemoglobin 15.5 g/dL (12.2-16.2); Lymphocytes # 3.1 K/mm3 (0.7-4.5); Lymphocytes % 31.9 % (10-50); Mean Corpuscular HGB Conc 31.2 g/dL (31.8-35.4); Mean Corpuscular Volume 86.6 fl (81-99); Mean Platelet Volume 8.7 fl (7.4-10.4); Monocytes # 0.5 K/mm3 (0.1-1.0); Monocytes % 5.1 % (1.7-9.3); Neutrophils # 5.9 K/mm3 (1.8-7.8); Neutrophils % 61.4 % (37.0-80.0); Platelet Count 332 K/mm3 (142-424); Red Blood Count 5.74 M/mm3 (4.20-5.40); Red Cell Distribution Width 12.9 % (11.5-17.5); Thyroid Stimulating Hormone 6.31 uIU/mL (0.465-4.68); White Blood Count 9.6 K/mm3 (4.8-10.8)
[2022-10-29 20:06] LABS: Vitamin B12 441 pg/mL (239-931)
[2022-10-29 21:20] LABS: Iron 117 ug/dL (37-170)
[2022-10-29 21:30] LABS: Total Iron Binding Capacity 444 ug/dL (265-497)
== END ==
PROVIDERS: PCP Nurse Practitioner; Visit Provider Nurse Practitioner
DX: E78.5 Hyperlipidemia, unspecified (principal); G25.81 Restless legs syndrome; Z87.898 Personal history of other specified conditions; R73.9 Hyperglycemia, unspecified; Z79.899 Other long term (current) drug therapy; R71.8 Other abnormality of red blood cells
CPT/HCPCS: 80053; 82607; 83036; 83540; 83550; 83735; 84100; 84439; 84443; 85025

== ENCOUNTER → 2022-11-12 13:37 | Outpatient (CLI) | payer MEDICARE, SELFPAY | PROVIDERS: PCP Nurse Practitioner; Visit Provider Nurse Practitioner | DX: G47.33 Obstructive sleep apnea (adult) (pediatric) (principal) | CPT/HCPCS: G0399 ==

== ENCOUNTER → 2022-11-17 10:28 | Outpatient (CLI) | payer MEDICARE, SELFPAY ==
--- NOTE | 2022-11-17 10:33 | XR_ITS ---
FINAL REPORT CLINICAL HISTORY: BACK PAIN FINDINGS: 5 VIEW CERVICAL SPINE Vertebral body heights are normal. Alignment in the sagittal plane is normal. There are very large anterior osteophytes from C3-C6. There is multilevel degenerative disc disease most pronounced at C5-C6 and C6-C7. Prevertebral soft tissues are unremarkable. IMPRESSION: Multilevel degenerative disc disease. Reviewed, Interpreted and Dictated by Kalee Resendez MD Transcribed by Franky Parish Authenticated and [facility]
--- NOTE | 2022-11-17 10:33 | XR_ITS ---
FINAL REPORT CLINICAL HISTORY: BACK PAIN FINDINGS: AP, lateral, and swimmer's views of the thoracic spine were obtained. There is no prior exam for comparison. There is no acute fracture or malalignment. Vertebral body height is preserved. There is levoscoliosis centered at the thoracolumbar junction. There is multilevel degenerative disc disease. Paraspinal soft tissues are within normal limits. IMPRESSION: Multilevel degenerative disc disease. Reviewed, Interpreted and Dictated by Kalee Resendez MD Transcribed by rFanky Parish Authenticated and [facility]
--- NOTE | 2022-11-17 10:33 | XR_ITS ---
FINAL REPORT CLINICAL HISTORY: COUGH FINDINGS: PA and lateral views of the chest are obtained. There is no prior exam for comparison. The cardiac and mediastinal silhouettes are within normal limits. There is a left lower lobe opacity. There is no pleural effusion, pneumothorax, or acute osseous abnormality. IMPRESSION: Left lower lobe opacity could represent atelectasis or pneumonia. Reviewed, Interpreted and Dictated by Kalee Resendez MD Transcribed by Franky Parish Authenticated and [facility]
== END ==
PROVIDERS: PCP Nurse Practitioner; Visit Provider Specialist
DX: M47.816 Spondylosis without myelopathy or radiculopathy, lumbar region (principal); M54.9 Dorsalgia, unspecified; F17.200 Nicotine dependence, unspecified, uncomplicated; G47.33 Obstructive sleep apnea (adult) (pediatric); R05.9 Cough, unspecified; M54.2 Cervicalgia; M54.6 Pain in thoracic spine
CPT/HCPCS: 71046; 72052; 72072

== ENCOUNTER → 2022-11-18 12:32 | Outpatient (CLI) | payer MEDICARE, SELFPAY ==
--- NOTE | 2022-11-18 12:32 | CT_ITS ---
FINAL REPORT TECHNIQUE: Pre-and postcontrast images of the abdomen were performed by computed tomography. Extensive 3-D reconstruction images were performed. A CTA was performed. This study was performed with techniques to keep radiation doses as low as reasonably achievable (ALARA). Individualized dose reduction techniques using automated exposure control or adjustment of mA and/or kV according to the patient's size were employed. CLINICAL HISTORY: REnal artery stenosis, HTN COMPARISON: None FINDINGS: ABDOMEN: There is left lower lobe airspace disease, likely atelectasis and/or pneumonia. Cardiomegaly is present. Precontrast images demonstrate no evidence of nephrolithiasis. There is left renal cortical thinning. No adrenal masses are identified. The liver, spleen and pancreas are unremarkable. There are mildly prominent fluid-filled small bowel loops, and an enteritis cannot be excluded. CTA: No evidence of an abdominal aortic aneurysm is seen. 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 The SMA, celiac axis, and NADEEN are patent. There are calcifications at the origins of both renal arteries. On the right side this produces approximately 50% diameter stenosis. On the left side dense calcifications somewhat limit evaluation of the degree of stenosis, however there is at least high-grade proximal left renal stenosis present. The common iliac arteries are patent. 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 50% right renal artery stenosis, with dense calcification somewhat limiting the exact degree of left renal artery stenosis, however there is at least high-grade stenosis of the proximal left renal artery. There are mildly prominent fluid-filled small bowel loops, and enteritis is not excluded. Reviewed, Interpreted and Dictated by Kalee Resendez MD Transcribed by Kristine Rodriguez Authenticated and [facility]
== END ==
PROVIDERS: PCP Nurse Practitioner; Visit Provider Physician Assistant
DX: E78.5 Hyperlipidemia, unspecified (principal); F17.200 Nicotine dependence, unspecified, uncomplicated; I10 Essential (primary) hypertension; I70.1 Atherosclerosis of renal artery; R06.00 Dyspnea, unspecified; R94.31 Abnormal electrocardiogram [ECG] [EKG]
CPT/HCPCS: 74175; Q9967

== ENCOUNTER → 2022-11-24 10:43 | Outpatient (CLI) | payer MEDICARE, SELFPAY ==
--- NOTE | 2022-11-24 10:45 | CA_ITS ---
APPROVED REPORT EXAM: Comprehensive 2D, Doppler, and color-flow Echocardiogram Director [employer]: Bee Reyes CRT Ht: 5 ft 3 in Wt: 136lbs BSA: 1.64 BP: 150/79 mmHg Indications: Abnormal ECG, Murmur, Hyperlipidemia, Hypertension/HDD, HOWARD, Renal artery stenosis 2D Dimensions LVOT 2.03 cm (M/F) 1.5-2.5 LA Volume 8.50 mL LA Volume Index 5.18 mL/m2 (M/F) 16-34 M-Mode Dimensions RVDd 2.13 cm (0.9-2.6) LA Diam 3.45 cm (1.9-4.0) LVDd 3.23 cm (3.5-5.7) Ao Diam 2.86 cm (2.0-3.7) LVDs 1.82 cm (3.5-5.7) IVSd 1.79 cm (0.6-1.1) PWd 1.07 cm (0.6-1.1) EF (Teich) 76.10% FS 43.70% EDV (Teich) 41.90 mL TAPSE 1.56 (<1.7) ESV (Teich) 10.00 mL LV Diastology E Decel Time 0.00 (160-240 msec) E/A Ratio 0.48 MED E' 4.10 (< 7 cm/sec) MED A' 10.50 cm/s E'/MED E' Ratio 9.05 (>14) LAT E' 3.60 (<10 cm/sec) LAT A' 8.30 cm/s E/LAT E' Ratio 10.31 (>14) Aortic Valve AO Peak GR. 4.00 mmHg Mitral Valve MV A Velocity 77.00 (40-130 cm/s) E/A Ratio 0.48 MV Decel. Time 0.00 (160-240 ms) Tricuspid Valve TR P. Velocity 228.00 cm/s RAP Estimate 10.00 mmHg RVSP 30.90 mmHg Left Ventricle The left ventricle is normal size. The left ventricular systolic function is normal. The left ventricular ejection fraction is within the normal range. There is marked asymmetric increase in LV wall thickness (IVSd=1.9 cm). No evidence of LVOT obstruction at rest There is normal LV segmental wall motion. LVEF is 65%. Right Ventricle The right ventricle is normal size. The right ventricular systolic function is normal. There is increased RV wall thickness. Atria The left atrium size is normal. The right atrium size is normal. There is no Doppler evidence of interatrial shunt. Aortic Valve The aortic valve opens well There is no aortic valvular stenosis. Trace aortic regurgitation. Mitral Valve There is systolic anterior motion of the mitral valve. There is no septal contact. No evidence of mitral valve stenosis. Trace mitral regurgitation. Tricuspid Valve The tricuspid valve leaflets are thin and pliable. Trace tricuspid regurgitation. There is insufficient TR jet to estimate RVSP. Pulmonic Valve The pulmonary valve is normal in structure. Trace pulmonic regurgitation. Great Vessels The aortic root is normal in size. The ascending aorta is not well visualized. IVC is normal in size and collapses >50% with inspiration. Pericardium There is no pericardial effusion. Other Information Study Quality: Adequate Conclusion Normal LV systolic size and function. Marked increase in asymmetric LV wall thickness (IVSd=1.9 cm). Systolic anterior motion (SANDRA) of the mitral valve without septal contact. No evidence of high LVOT obstruction at rest. LVOT gradient at Valsalva was not evaluated in the study. The combination of findings is highly suggestive of hypertrophic cardiomyopathy. Further evaluation with cardiac MRI and stress echo (to evaluate LVOT gradient at rest and at peak stress) is recommended. When visually compared to the prior study from 2020, the LV wall thickness is now further increased. Electronically signed by : Neelima Yusuf MD 11/24/2022 22:23:00
== END ==
PROVIDERS: PCP Nurse Practitioner; Visit Provider Physician Assistant
DX: E78.5 Hyperlipidemia, unspecified (principal); F17.200 Nicotine dependence, unspecified, uncomplicated; I10 Essential (primary) hypertension; R01.1 Cardiac murmur, unspecified; R06.00 Dyspnea, unspecified; R94.31 Abnormal electrocardiogram [ECG] [EKG]
CPT/HCPCS: 93306

== ENCOUNTER 2022-11-26 14:37 | Inpatient (IN) | payer MEDICARE, SELFPAY ==
[2022-11-26] VITALS (29 sets, daily range): BP systolic 100–182; BP diastolic 52–95; PULSE 50–77; RESP 16–20; TEMP 36.6–36.9; O2SAT 94–100; BMI 24.4
--- NOTE | 2022-11-26 07:07 | IR_ITS ---
APPROVED REPORT Patient Location: Outpatient PROCEDURES Catheter placement in the right vertebral artery Right vertebral artery angiogram Catheter placement in the right common carotid artery Right internal carotid artery selective angiogram Right intracerebral internal carotid artery selective angiogram Catheter placement in the brachiocephalic artery Brachiocephalic artery angiogram Catheter placed in the left vertebral artery Left vertebral artery selective angiogram Catheter placed in left subclavian artery Left subclavian artery selective angiogram Catheter placed in the left common carotid artery Left internal carotid artery selective angiogram Left internal carotid artery intracerebral artery angiogram Bilateral selective renal angiography INDICATION Severe bilateral internal carotid artery stenosis, Severe bilateral renal artery stenosis, Severe bilateral subclavian artery stenosis Informed consent was obtained prior to the procedure. COMPLICATIONS None Estimated Blood Loss: Less than 10 ML TECHNIQUE 1% lidocaine used to anesthetize the right femoral groin. The right femoral artery was accessed via the Seldinger technique. 5 Vietnamese sheath was placed in the right femoral artery and a JR4 catheter was used to perform bilateral vertebral artery angiography bilateral internal carotid artery selective angiography as well as intracerebral angiography. It was noted patient had bilateral subclavian artery stenosis therefore bilateral subclavian artery angiography was performed. Following this the JR4 cath was used to perform bilateral selective renal angiography. At the end the procedure the apparatus was removed the patient was transferred to the postop putting in stable addition for sheath removal ANGIOGRAPHIC RESULTS Right subclavian artery has a concentric 70% stenosis Right common carotid artery is widely patent Right internal carotid artery has an eccentric 50% stenosis. There is no intracerebral aneurysms or distal atherosclerotic plaque identified. There is crossover with a portion of the left hemisphere being supplied by the right internal carotid artery Left common carotid artery is widely patent Left internal carotid artery has a concentric 80% stenosis. There are no intracerebral aneurysms or distal atherosclerotic plaque identified. Right vertebral artery is vestigial Left vertebral artery is a large dominant vessel widely patent with mild to moderate atheromatous plaque. The basilar artery is widely patent Right renal artery is singular and has a proximal eccentric 70% stenosis Left vertebral artery singular and has a long proximal eccentric 70 to 80% stenosis IMPRESSION Severe bilateral subclavian stenosis Severe bilateral renal artery stenosis Moderate right internal carotid artery stenosis Severe left internal carotid artery stenosis Vestigial right vertebral artery Large dominant left vertebral artery which is widely patent and provides antegrade flow into the basilar artery PLAN 1. Recommend patient be admitted this evening for IV fluids. Recommend discontinuing hydrochlorothiazide and IAN inhibitor 2. Plan is to bring patient back to the [facility] Techn[facility] tomorrow where she will undergo stenting of the left subclavian artery and the left renal artery. 3. Patient has also been describing angina pectoris and will undergo coronary artery angiography tomorrow 4. At some point patient will require additional stenting of the right subclavian artery as well as stenting of the right renal artery. Timing of this will depend on how the interventional procedure goes and the severity of the cardiac diagnostic testing 5. Patient has severe left internal carotid artery stenosis which I would recommend being revascularized at some point. Because of patient's
[2022-11-26 10:49] LABS: Blood Urea Nitrogen 37 mg/dl (7-17); Estimated Glomerular Filt Rate 35 ml/min (>60); GFR (African American) 42 ML/MIN (>60)
[2022-11-26 12:38] LABS: MANUAL DIFFERENTIAL MANUAL DIFFERENTIAL (MANUAL DIFF)
[2022-11-26 12:41] LABS: Basophils # 0.1 K/mm3 (0-0.2); Basophils % 0.9 % (0.1-2.0); Eosinophils # 0.2 K/mm3 (0.0-0.4); Eosinophils % 1.4 % (0.1-12.0); Hematocrit 47.4 % (37.0-47.0); Hemoglobin 14.7 g/dL (12.2-16.2); Lymphocytes # 3.8 K/mm3 (0.7-4.5); Lymphocytes % 36.1 % (10-50); Mean Corpuscular Volume 87.3 fl (81-99); Mean Platelet Volume 8.1 fl (7.4-10.4); Monocytes # 0.5 K/mm3 (0.1-1.0); Monocytes % 4.7 % (1.7-9.3); Neutrophils % 56.9 % (37.0-80.0); Platelet Count 300 K/mm3 (142-424); Red Blood Count 5.43 M/mm3 (4.20-5.40); Red Cell Distribution Width 12.8 % (11.5-17.5); White Blood Count 10.6 K/mm3 (4.8-10.8)
--- NOTE | 2022-11-26 14:02 | SUR.PHASEII ---
During removal of right femoral groin sheath patient became very anxious and moving, because of moving more pressure was applied on access site (r groin) to prevent bleeding, pt medicated per mar for pain to right groin during sheath pull.
--- NOTE | 2022-11-26 14:28 | SUR.PHASEII ---
Case Managment called at this time in regards to admission.
--- NOTE | 2022-11-26 14:37 | SUR.PHASEII ---
pt re-educated at this time on need to lie flat and keep right leg straight. pt given water to drink.
[2022-11-26 14:44] LABS: Eosinophils % 1 % (0-3); Lymphocytes % 37 % (10-50); Monocytes % 4 % (2-9); Neutrophils % 58 % (42-76); Platelet Estimate Normal; RBC Morphology Normal; Total Cells Counted 100
--- NOTE | 2022-11-26 14:46 | SUR.PHASEII ---
Dr. Padilla speaking with patient regarding cath results.
--- NOTE | 2022-11-26 14:51 | HMH.PHAINT1 ---
Pharmacy Intervention Comments: MEDICATION RECONCILIATION COMPLETED ON PATIENT USING EXTERNAL FILL HISTORY FROM PHARMACY AND LIST FROM PCP OFFICE. -JOSEFINA JONES, MERCEDD
--- NOTE | 2022-11-26 14:57 | PC.NURSE ---
arrived to floor from labeler by meng
--- NOTE | 2022-11-26 15:21 | EXP.HP ---
History of Present Illness *Admission Date: 11/26/22 *History of present illness: Ms. Mata is a 38-year-old female with significant history of vasculopathy, tobacco use, history of occipital stroke, hypothyroidism ED MARTINA, hypertension, hyperlipidemia. She presented today for elective outpatient renal and carotid angiograms given image findings of renal artery stenosis and carotid artery stenosis. Patient has been seen by cardiology several years ago but was lost to follow-up. Recently reestablished with her primary provider who referred her back to cardiology for further evaluation and work-up of previous concerning arterial disease. Patient was noted to have slight MELISSA today with creatinine 1.5. After her procedure identifying bilateral subclavian stenosis, renal artery stenosis, and carotid artery stenosis, cardiology requested admission for monitoring overnight, gentle rehydration, and repeat angiography with intervention planned for tomorrow. 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 50% right renal artery stenosis, with dense calcification somewhat limiting the exact degree of left renal artery stenosis, however there is at least high-grade stenosis of the proximal left renal artery. There are mildly prominent fluid-filled small bowel loops, and enteritis is not excluded. Neck CTA: Carotid artery stenosis- CTA showed 80% stenosis left ICA, 40% in right. Echocardiogram obtained 11/24 with the following finding: Normal LV systolic size and function. Marked increase in asymmetric LV wall thickness (IVSd=1.9 cm). Systolic anterior motion (SANDRA) of the mitral valve without septal contact. No evidence of high LVOT obstruction at rest. LVOT gradient at Valsalva was not evaluated in the study. The combination of findings is highly suggestive of hypertrophic cardiomyopathy. [facility] Disclaimer: The information contained in this section may have been updated after the patient was seen, as this information can be updated by other users. Medical History Abnormal EKG Abnormal head CT Acquired hypothyroidism Cardiac murmur Carotid artery stenosis Claudication Dyspnea Edema Essential hypertension Ex-smoker Family history of early CAD History of CVA (cerebrovascular accident) History of paresthesia HLD (hyperlipidemia) HTN (hypertension) IFG (impaired fasting glucose) Incontinence Insomnia Left carotid bruit Left leg paresthesias MARTINA (obstructive sleep apnea) Renal artery stenosis Restless sleeper RLS (restless legs syndrome) Smoker Surgical History History of carpal tunnel surgery History of right hip replacement History of thoracotomy Hx of cholecystectomy Hx of tonsillectomy Hx of tubal ligation Family History Diabetes Mother Hyperlipidemia Hypertension Mother Social History Smoking Status: Current every day smoker tobacco type: cigarettes packs per day: 2 years smoked: 51 quit status: not considering quitting second hand exposure: No alcohol intake: never substance use type: denies use current occupational status: disabled Travel in the last 8 weeks: None household members: other housing: house caffeine: Yes Review of Systems Review of Systems Review of systems (narrative): 14 point review of systems performed, pertinent positives and negatives as per HPI Meds Home Medications and Allergies Home Medications Medication Instructions Recorded Confirmed Type rosuvastatin 20 mg tablet 20 mg PO DAILY Cholesterol 11/19/22 11/26/22 History clopidogrel 75 mg tablet (Plavix) 75 mg PO DAILY Platelet Inhibitor 11/26/22 11/26/22 History duloxetine 30 mg capsule,delayed 60 mg PO DAILY Mood 11/26/22 11/26/22 History release levothyroxine 50 mcg tablet 50 mcg PO D
--- NOTE | 2022-11-26 15:30 | PC.NURSE ---
pt educated on home medication usage while in hospital, stated could bring them in
[2022-11-27] VITALS (32 sets, daily range): BP systolic 124–188; BP diastolic 52–111; PULSE 48–90; RESP 16–22; TEMP 36.4–37; O2SAT 94–100; BMI 24.4
--- NOTE | 2022-11-27 05:20 | PC.NURSE ---
PATIENT HAS HAD A QUIET NIGHT. CONSENT SIGNED. NPO SINCE MN. FAMILY MEMBER AT BEDSIDE. HAS BEEN UP TO THE BR 5 TIMES AND VOIDED UNMEASURED. 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
[2022-11-27 06:10] LABS: Basophils # 0.1 K/mm3 (0-0.2); Basophils % 0.9 % (0.1-2.0); Eosinophils # 0.2 K/mm3 (0.0-0.4); Hematocrit 42.7 % (37.0-47.0); Hemoglobin 13.3 g/dL (12.2-16.2); Lymphocytes # 3.5 K/mm3 (0.7-4.5); Lymphocytes % 36.7 % (10-50); Mean Corpuscular HGB Conc 31.1 g/dL (31.8-35.4); Mean Corpuscular Hemoglobin 27.1 pg (27.0-31.2); Mean Corpuscular Volume 86.9 fl (81-99); Mean Platelet Volume 8.1 fl (7.4-10.4); Monocytes # 0.5 K/mm3 (0.1-1.0); Monocytes % 5.1 % (1.7-9.3); Neutrophils # 5.3 K/mm3 (1.8-7.8); Neutrophils % 55.3 % (37.0-80.0); Platelet Count 239 K/mm3 (142-424); Red Blood Count 4.91 M/mm3 (4.20-5.40); Red Cell Distribution Width 12.8 % (11.5-17.5); White Blood Count 9.6 K/mm3 (4.8-10.8)
[2022-11-27 06:27] LABS: Chloride 105 mmol/L (98-107); Potassium 4.2 mmoL/L (3.5-5.1); Sodium 139 mmol/L (136-145)
[2022-11-27 06:29] LABS: Alanine Aminotransferase 16 U/L (12-78); Aspartate Amino Transferase 27 U/L (14-36); Blood Urea Nitrogen 29 mg/dl (7-17); Creatinine Clearance Estimated 47 mL/min (50-200); Estimated Glomerular Filt Rate 45 ml/min (>60); GFR (African American) 55 ML/MIN (>60)
[2022-11-27 06:30] LABS: Albumin Level 3.5 g/dl (3.5-5.0); Albumin/Globulin Ratio 1.3 (1.1-1.8); Alkaline Phosphatase 99 U/L (38-126); Anion Gap 10.2 mEq/L (5-15); Bilirubin,Total 0.2 mg/dl (0.2-1.3); Carbon Dioxide 28 mmol/L (22.0-30.0); Globulin 2.7 g/dL (1.3-3.2); Glucose 102 mg/dl (74-100); Magnesium 1.9 mg/dl (1.6-2.3); Total Protein,Serum 6.2 g/dl (6.3-8.2)
--- NOTE | 2022-11-27 09:01 | IR_ITS ---
APPROVED REPORT Patient Location: Inpatient PROCEDURES Left heart catheterization Left ventriculogram Selective coronary angiogram Catheter placed in the left subclavian artery Left subclavian artery selective angiogram Left subclavian artery bare-metal stent deployment Catheter placed in the right renal artery Right renal artery selective angiogram Bare-metal stent deployment to the ostial proximal right renal artery Catheter placement in the left renal artery Left renal artery selective angiogram Bare-metal stent deployment to the ostial proximal portion of the left renal artery INDICATION Left subclavian stenosis, Renovascular hypertension, Bilateral renal artery stenosis, Malignant hypertension Informed consent was obtained prior to the procedure. COMPLICATIONS None Estimated Blood Loss: Less than 10 mls TECHNIQUE 1% lidocaine used anesthetize the left groin the left femoral was accessed via the Salinger technique and a 6 Swazi sheath was placed in the femoral artery. A JL 4 JR 4 catheter used to perform left heart catheterization left ventriculogram and selective coronary angiogram. At the end the diagnostic angiogram therapeutic heparin was administered giving a therapeutic ACT and the JR4 catheter was placed in the left subclavian artery followed by a 260 cm wire into the left axillary artery. A long 6 Swazi sheath was then exchanged for a short 6 Swazi sheath with the 6 Swazi sheath being placed in the proximal portion of the left subclavian artery. An 8 mm x 37 mm bare-metal balloon mounted VISI pro stent was deployed at 14 maye. The balloon was brought back and deployed at 18 maye to flare the ostium. Excellent angiographic results were obtained with wide patency of the left subclavian artery. Following this the long 6 Swazi sheath was exchanged for short 6 Swazi sheath and short PECK guide catheter was placed in the right renal artery followed by Choice PT extra-support wire. A 6 mm x 18 mm Herculink stent was deployed at 18 maye in the ostial proximal segment reducing the critical stenosis to 0%. This was repeated in the left renal artery where a 5.5 x 18 mm Herculink stent was placed in the midportion of the left renal artery extending back to the proximal portion. The balloon was then pulled back to the ostium and inflated at 18 maye. An additional 6 mm x 12 mm Herculink stent was placed in the ostial segment overlapping the first stent yet flaring out into the aorta and deployed at 18 maye. Excellent angiographic results were obtained. Patient did experience significant hypertension during the procedure which responded well to nitroglycerin labetalol and hydralazine. At the end of the procedure the apparatus was removed the groin is reprepped closure change sheath was removed and hemostasis was achieved using Perclose device patient was transferred to the postop holding in stable condition ANGIOGRAPHIC RESULTS The left main artery Normal The left anterior descending artery Is proximally normal. Distal to a large first diagonal artery the LAD has a concentric 50% stenosis. This then gives rise to 2 large septal perforators. The LAD itself is small caliber and does not approaches the apex. A much larger first diagonal artery has a proximal 30% stenosis. This supplies a large portion of the anterolateral wall. The circumflex artery Nondominant and normal The right coronary artery Large dominant and normal. With a large amount of the left ventricle being supplied by this long and tortuous vessel The PEDERSEN ventriculogram reveals Normal 65% The left ventricular end-diastolic pressure 10 mmHg Left subclavian artery has an ostial proximal concentric calcified 80 to 90% stenosis. Following stenting there was wide inflow throughout the subclavian artery
--- NOTE | 2022-11-27 09:36 | EXP.CARD.CON ---
History of Present Illness History of Present Illness Consult date: 11/27/22 Requesting physician: Jared Castellanos Consult reason: known to you Chief complaint: Weakness and dizziness History of present illness: 62-year-old white female known to our office with a history of significant polyvascular disease. She has known bilateral carotid stenosis bilateral subclavian stenosis bilateral renal artery stenosis. She had outpatient procedure yesterday and was recommended she be admitted overnight for observation with staged intervention of left subclavian artery and renal artery. This morning she complains of mild right femoral cath site discomfort associated with bruising. Her creatinine stable at 1.2. BP 140s. She is agreeable to proceed with intervention as planned. [facility] Disclaimer: The information contained in this section may have been updated after the patient was seen, as this information can be updated by other users. Medical History Abnormal EKG Abnormal head CT Acquired hypothyroidism Cardiac murmur Carotid artery stenosis Claudication Dyspnea Edema Essential hypertension Ex-smoker Family history of early CAD History of CVA (cerebrovascular accident) History of paresthesia HLD (hyperlipidemia) HTN (hypertension) IFG (impaired fasting glucose) Incontinence Insomnia Left carotid bruit Left leg paresthesias MARTINA (obstructive sleep apnea) Renal artery stenosis Restless sleeper RLS (restless legs syndrome) Smoker Surgical History History of carpal tunnel surgery History of right hip replacement History of thoracotomy Hx of cholecystectomy Hx of tonsillectomy Hx of tubal ligation Family History Diabetes Mother Hyperlipidemia Hypertension Mother Social History Smoking Status: Current every day smoker tobacco type: cigarettes packs per day: 2 years smoked: 51 quit status: not considering quitting second hand exposure: No alcohol intake: never substance use type: denies use current occupational status: disabled Travel in the last 8 weeks: None household members: other housing: house caffeine: Yes Review of Systems Constitutional Constitutional: Reports fatigue, Reports lethargy, Reports malaise and Reports weakness Eyes Eyes: Denies loss of vision ENT Ears, Nose, Mouth, and Throat: Denies hearing loss and Reports vertigo *Cardiovascular Cardiovascular: Denies chest pain, Reports dyspnea and Denies syncope *Respiratory Respiratory: Denies cough and Reports dyspnea *Gastrointestinal Gastrointestinal: Denies change in stool character, Reports nausea and Denies vomiting *Musculoskeletal Musculoskeletal: Reports muscle weakness Integumentary/Breasts Skin/Breast: Denies changing lesions *Neurologic Neurologic: Denies loss of vision, Denies syncope, Reports vertigo and Reports weakness Psychiatric Psychiatric: Reports change in appetite and Reports depression Endocrine Endocrine: Reports fatigue Exam Data for Last 24 hours Vital signs and Labs for Last 24 Hours: Temp Pulse Resp BP Pulse Ox O2 Del Method 97.5 F L 69 18 145/57 H 98 Room Air 11/27/22 07:31 11/27/22 07:31 11/27/22 07:31 11/27/22 07:31 11/27/22 07:31 11/27/22 09:00 Laboratory Results - last 24 hr 11/26/22 10:20: BUN 37 H, Creatinine 1.50 H, Estimated GFR 35 L, Est GFR ( Amer) 42 L 11/26/22 10:21: WBC 10.6, RBC 5.43 H, Hgb 14.7, Hct 47.4 H, MCV 87.3, MCH 27.0, MCHC 31.0 L, RDW 12.8, Plt Count 300, MPV 8.1, Neut % (Auto) 56.9, Lymph % (Auto) 36.1, [place] % (Auto) 4.7, Eos % (Auto) 1.4, Baso % (Auto) 0.9, Neut # (Auto) 6.0, Lymph # (Auto) 3.8, [place] # (Auto) 0.5, Eos # (Auto) 0.2, Baso # (Auto) 0.1, Total Counted 100, Neutrophils % (Manual) 58, Lymphocytes % (Manual) 37, Monocytes % (Manual) 4, Eosinophils % (Manual) 1, Platelet Estimate Normal, RBC
--- NOTE | 2022-11-27 09:45 | CA_ITS ---
FINAL REPORT CLINICAL HISTORY: R/OPSEUDO,PT S/P INTEVENTIONAL PROCEDURE WITH RT GROIN ACCESS 11/26,BRUISING AT PAIN AT SITE FINDINGS: DUPLEX DOPPLER UPPER EXTREMITY TECHNIQUE: Axial and color Doppler waveform evaluation of the right groin was performed. FINDINGS: There is no evidence of pseudoaneurysm or AV fistula seen in the right groin. IMPRESSION: No evidence of pseudoaneurysm or AV fistula in the right groin. Reviewed, Interpreted and Dictated by Jovanni Dominguez III, MD Transcribed by Cadence Saab Authenticated and . [facility]
[2022-11-27 17:11] LABS: CATHL Activated Clotting Time 297 SEC (74-125)
--- NOTE | 2022-11-27 17:21 | CT_ITS ---
PROCEDURE INFORMATION: Exam: CT Head Without Contrast Exam date and time: 11/27/2022 5:20 PM Age: 62 years old Clinical indication: Stroke-like symptoms; Other: Stroke symptoms; Additional info: RO stroke TECHNIQUE: Imaging protocol: Computed tomography of the head without contrast. Radiation optimization: All CT scans at this facility use at least one of these dose optimization techniques: automated exposure control; mA and/or kV adjustment per patient size (includes targeted exams where dose is matched to clinical indication); or iterative reconstruction. Other technique: STROKE PROTOCOL was implemented. REPORTING DATA: Count of CT and Cardiac NM exams in prior 12 months: This patient has received 5 known CTs and 0 known cardiac nuclear medicine studies in the 12 months prior to the current study. COMPARISON: CT HEAD/BRAIN WO CON 10/20/2022 12:34 PM FINDINGS: Brain: Chronic lacunar infarcts are visualized within the bilateral basal ganglia and bilateral thalami. Areas of encephalomalacia/gliosis are visualized within the left occipital lobe, consistent with old infarcts and stable compared to the previous exam. The mims-white differentiation is preserved demonstrating no acute territorial type infarct. There is moderate cerebral white matter hypodensity, likely representing small vessel ischemic disease in a patient this age. The acuity of the white matter disease is indeterminate. There is no midline shift. Cerebral ventricles: There is stable prominence of the ventricles and sulci, compatible with atrophy. Paranasal sinuses: Visualized sinuses are unremarkable. No fluid levels. Mastoid air cells: No mastoid effusion. Bones/joints: The calvarium demonstrates no evidence for a depressed fracture. There is angulation of the anterior right nasal bone, which is stable. Soft tissues: Mild soft tissue swelling of the left supraorbital region of the frontal scalp. Vasculature: There is hyperdensity of the intracranial arteries and dural venous sinuses due to recent contrast administration. This limits evaluation for intracranial hemorrhage. Other findings: Motion artifact limits this study. IMPRESSION: 1. No acute territorial type infarct. 2. Chronic lacunar infarcts are visualized within the bilateral basal ganglia and bilateral thalami. 3. Areas of encephalomalacia/gliosis are visualized within the left occipital lobe, consistent with old infarcts and stable compared to the previous exam. 4. There is hyperdensity of the intracranial arteries and dural venous sinuses due to recent contrast administration. This limits evaluation for intracranial hemorrhage. 5. There is moderate cerebral white matter hypodensity, likely representing small vessel ischemic disease in a patient this age. 6. Stable atrophy. 7. Mild soft tissue swelling of the left supraorbital region of the frontal scalp. 8. If further evaluation is clinically indicated, an MRI of the brain is recommended. ASSESSMENT: ASPECTS ([place] Stroke Program Early CT Score) is 10.
--- NOTE | 2022-11-27 17:37 | PC.NURSE ---
Levophed drip titrated per verbal order by Dr. Padilla to 10 mcg/min. BP 149/68, HR-72. Goal of systolic of 160-180 staying under 200.
--- NOTE | 2022-11-27 17:43 | PC.NURSE ---
Dr. Padilla states to give pt 2mg Morphine for pain. Levophed drip titrated to 8 mcg/min for a bp of 196/78
--- NOTE | 2022-11-27 17:50 | EXP.ACUTE.PN ---
Subjective *Date: 11/27/22 *Time: 18:17 Interval history: Patient seen this morning on morning rounds prior to going for angiography. Was overall feeling well, baseline neurologic exam. Received morning medications including her metoprolol and lisinopril. Taken for angiography and stenting. Intervened on left subclavian stenosis and bilateral renal artery stenosis. Patient stable on room air with no complaint of headache, chest pain, shortness of breath, nausea, vomiting. After procedure, patient had episode of right-sided weakness and right facial droop upon arriving to the floor after her angiography/PCI. Stroke alert called, taken for CT of head. Noted to have severely elevated blood pressures with systolics in the 200s during procedure. Blood pressure in the 140s after procedure. CT of head showed no acute ischemic change or bleed. Initiated on vasopressors to increase systolic blood pressure. Patient had gradual improvement in right-sided weakness. Escalated to stepdown level of care and will continue phenylephrine drip overnight. at bedside, updated on events and prognosis. Medical Exam Vital signs and Labs for Last 24 Hours: Vital Signs Temp Pulse Pulse Resp BP Pulse Ox O2 Del Method 11/27/22 17:42 79 18 185/73 H 11/27/22 17:39 74 16 171/73 H Room Air 11/27/22 15:00 Room Air 11/27/22 08:00 65 11/27/22 12:33 Room Air 11/27/22 11:14 98.6 F 48 L 18 139/52 L 97 Room Air 11/27/22 10:28 Room Air 11/27/22 09:00 Room Air 11/27/22 08:00 Room Air 11/27/22 07:31 97.5 F L 69 18 145/57 H 98 Room Air 11/27/22 06:33 Room Air 11/27/22 05:00 Room Air 11/27/22 04:00 56 L 11/27/22 04:00 98 F 65 17 134/68 96 Room Air 11/27/22 03:00 Room Air 11/27/22 00:00 67 11/27/22 01:00 Room Air 11/27/22 00:00 98 F 66 16 124/66 96 Room Air 11/26/22 23:00 Room Air 11/26/22 20:00 60 11/26/22 21:00 Room Air 11/26/22 20:00 94 L Room Air 11/26/22 21:15 98.0 F 61 16 121/52 L 94 L Room Air 11/26/22 20:15 97.8 F 57 L 16 145/64 H 94 L Room Air 11/26/22 19:15 98.0 F 61 20 172/89 H 94 L Room Air 11/26/22 18:25 Room Air 11/26/22 18:15 59 L 20 150/75 H 97 Room Air Intake and Output 11/27/22 11/27/22 11/27/22 07:59 15:59 23:59 Intake Total 1240 / 1240 0 / 1240 Output Total 1 / 1 0 / 1 0 / 1 Balance 1239 / 1239 0 / 1239 0 / 1239 Intake: Intake, Oral Amount 240 / 240 0 / 240 Intake, Total IV Amount 1000 / 1000 Lactated Ringers 1000ML 1,000 1000 / 1000 ml @ 100 mls/hr IV .Q10H PENDING SALE TO [facility] Rx #:[id number] Output: Output, Urine Amount 0 / 1 0 Other: Number of Unmeasured Voids 0 0 0 Weight 62.596 kg Patient Weight 11/27/22 23:59 Weight 62.596 kg Laboratory Results - last 24 hr 11/27/22 05:19: WBC 9.6, RBC 4.91, Hgb 13.3, Hct 42.7, MCV 86.9, MCH 27.1, MCHC 31.1 L, RDW 12.8, Plt Count 239, MPV 8.1, Neut % (Auto) 55.3, Lymph % (Auto) 36.7, [place] % (Auto) 5.1, Eos % (Auto) 2.0, Baso % (Auto) 0.9, Neut # (Auto) 5.3, Lymph # (Auto) 3.5, [place] # (Auto) 0.5, Eos # (Auto) 0.2, Baso # (Auto) 0.1, Sodium 139, Potassium 4.2, Chloride 105, Carbon Dioxide 28, Anion Gap 10.2, BUN 29 H, Creatinine 1.20 H, Estimated Creat Clear 47, Estimated GFR 45 L, Est GFR ( Amer) 55 L D, Glucose 102 H, Calcium 9.0, Magnesium 1.9, Total Bilirubin 0.2, AST 27, ALT 16, Alkaline Phosphatase 99, Total Protein 6.2 L D, Albumin 3.5, Globulin 2.7, Albumin/Globulin Ratio 1.3 11/27/22 16:37: Activated Clotting Time 297 H* I & O for Labs for Last 24 Hours: Intake & Output 11/24/22 11/25/22 11/26/22 11/27/22 23:59 23:59 23:59 23:59 Intake Total 240 / 480 1240 / 1240 Output Total 2 / 2 Balance 238 / 478 1239 / 1239 Weight 62.596 kg 62.596 kg Constitutional: Present no acute distress, average body habitus, chronically ill appea
--- NOTE | 2022-11-27 18:13 | PC.NURSE ---
Communicated with Lala Friend, primary RN that per Dr. Padilla verbal order wean Levophed drip and add Neosynephrine drip keeping heart rate >70 bpm and BP systolic 160-180 not greater than 200. Dr. Castellanos to place drip order.
--- NOTE | 2022-11-27 18:19 | PC.NURSE ---
WHEN PT ARRIVED BACK TO THE FLOOR FROM [facility] AT 1710 AND MOVED FROM STRETCHER TO BED PT WAS NOTED TO HAVE A RIGHT SIDED FACIAL DROOP. PT WAS UNABLE TO TURN HER HEAD TO THE RIGHT SIDE. UNABLE TO BRONZER WITH HER RIGHT HAND OR MOVE HER RIGHT ARM AND LEG. PT HAD SLURRED/INCOMPREHENSIBLE SPEECH. STROKE ALERT CALLED AT 1713 AND PT WAS TAKEN IMMEDIATELY TO CT WITH Ana Paula REAGAN RN AND Day DE LA CRUZ AND ARRIVED TO CT. IVF'S AND LEVOPHED DRIP WAS ORDERED WHEN PT'S BP WAS NOTED TO BE 149/80. LEVOPHED DRIP WAS STARTED AND TITRATED TO KEEP SYSTOLIC PRESSURE 160-180. PT STARTED TO REGAIN MOVEMENT OF HER RIGHT SIDE AND WAS BETTER AT FOLLOWING COMMANDS WITH MORE CLEAR SPEECH AFTER ARRIVING BACK TO THE FLOOR AT 1730.
--- NOTE | 2022-11-27 18:28 | PC.NURSE ---
1702 pt transferred to stepdown r/t monitoring of bp
--- NOTE | 2022-11-27 19:37 | PC.NURSE ---
1809 order received to change patient from phenylephrine and to wean pt slowly off of Levophed . Drip mixed by Day Aldana RN 1814 Avtar drip started at 20mcg, Levo infusing at 8mcg 1824 Avtar drip 30 mcg, Levo decreased to 6 mcg 1829 Avtar 30mcg, Levo decreased to 2mcg 1833 Levo drip stopped.
--- NOTE | 2022-11-27 19:43 | PC.NURSE ---
Addendum entered by Remedios Tao RN 11/28/22 06:45: 0645 dropped Avtar to 20mcg/min BP 180/98 HR 83 Addendum entered by Remedios Tao RN 11/28/22 06:32: 0632 Avtar driped dropped to 30mcg/min BP 191/89 HR 79 Addendum entered by Remedios Tao RN 11/28/22 05:13: 0513 changed Avtar to 40mcg/min BP 144/63 HR 76 Addendum entered by Remedios Tao RN 11/28/22 03:52: 0352 changed Avtar to 30mcg/min BP 195/60 HR 80 Addendum entered by Remedios Tao RN 11/28/22 03:30: 0329 Avtar changed to 40mcg/min BP 199/108 HR 83 Addendum entered by Remedios Tao RN 11/28/22 03:18: 3:18 dropped Avtar to 50mcg/min BP 184/83 HR 77 Addendum entered by Remedios Tao RN 11/28/22 02:14: 2:14 changed Avtar to 60mcg/min BP 129/80 HR 77 Addendum entered by Remedios aTo RN 11/28/22 01:30: 1:30am changed Avtar to 50mcg/min BP 129/59 HR 88 Addendum entered by Remedios Tao RN 11/28/22 01:17: At 1:17 titrated Avtar to 40mcg/min BP 120/58 HR 79 Addendum entered by Remedios Tao RN 11/28/22 01:05: At 1:05am titrated Avtar to 30mcg/min BP 124/53 HR 88 Addendum entered by Remedios Tao RN 11/28/22 00:52: 0052 changed drip to 20mcg/min BP 117/53 HR 88 Addendum entered by Remedios Tao RN 11/27/22 23:47: At 11:48 changed Avtar to 15mcg/min BP 186/136 HR 95Zac APRN notified and agreeable. Addendum entered by Remedios Tao RN 11/27/22 23:37: At 11:35 Avtar turned to 20mcg/min BP 128/57 HR 75 Addendum entered by Remedios Tao RN 11/27/22 23:28: Avtar restarted to 10mcg/min BP 134/55 HR 85 Addendum entered by Remedios Tao RN 11/27/22 22:54: At 10:54 turned Avtar off Addendum entered by Remedios Tao RN 11/27/22 22:35: At 10:35 turned Avtar to 10mcg/min current BP is 199/96 HR 82 Addendum entered by Remedios Tao RN 11/27/22 22:19: At 10:19 turned Avtar down to 20mcg/min current BP is 187/98 HR 73 Original Note: Upon start of shift Avtar drip is at 30mcg/min, BP currently 163/73 HR is 77
[2022-11-28] VITALS (27 sets, daily range): BP systolic 128–180; BP diastolic 50–94; PULSE 60–92; RESP 16–20; TEMP 36.4–37.3; O2SAT 95–100; BMI 24.3
--- NOTE | 2022-11-28 05:17 | PC.NURSE ---
Patient has been able to sleep through the night some. She is defiantly gotten more alert as the shift has gone on. Short term memory is still an issue. She knows where she is at, her name, birthday and that her is in the room with her. She still struggles to know why she is here but is easily reoriented. She can move all extremities. Speech is not slurred and face is not drooping. Patient has been incontinent all night requiring x2 bed changes and a purewick to be applied because patient didn't know she was voiding and Cath site was getting contaminated. Cath site was changed and cleaned and a new dressing was placed. Cath site did have some bleeding radha in shift and rainer was notified. Drip remains on to keep SBP above 160. attempted to wean patient off and patient could not tolerate and SPB of 160
--- NOTE | 2022-11-28 06:00 | PC.NURSE ---
Rainer called to check in. RN told rainer patient is more alert this morning, Avtar is currently at 40mcg/min with a BP of 169/83. Rainer stated that he is going to wait for labs to come back and then will decided if we want to change parameters or not
[2022-11-28 06:03] LABS: Basophils # 0.1 K/mm3 (0-0.2); Basophils % 0.3 % (0.1-2.0); Eosinophils # 0.1 K/mm3 (0.0-0.4); Eosinophils % 0.7 % (0.1-12.0); Hematocrit 47.3 % (37.0-47.0); Hemoglobin 15.2 g/dL (12.2-16.2); Lymphocytes # 2.6 K/mm3 (0.7-4.5); Lymphocytes % 16.4 % (10-50); Mean Corpuscular HGB Conc 32.1 g/dL (31.8-35.4); Mean Corpuscular Hemoglobin 27.1 pg (27.0-31.2); Mean Corpuscular Volume 84.2 fl (81-99); Monocytes # 0.7 K/mm3 (0.1-1.0); Monocytes % 4.2 % (1.7-9.3); Neutrophils # 12.3 K/mm3 (1.8-7.8); Neutrophils % 78.5 % (37.0-80.0); Platelet Count 283 K/mm3 (142-424); Red Blood Count 5.62 M/mm3 (4.20-5.40); Red Cell Distribution Width 12.9 % (11.5-17.5); White Blood Count 15.7 K/mm3 (4.8-10.8)
[2022-11-28 06:07] LABS: MANUAL DIFFERENTIAL MANUAL DIFFERENTIAL (MANUAL DIFF)
[2022-11-28 06:08] LABS: Chloride 108 mmol/L (98-107); Sodium 138 mmol/L (136-145)
[2022-11-28 06:11] LABS: Alanine Aminotransferase 19 U/L (12-78); Albumin/Globulin Ratio 1.3 (1.1-1.8); Alkaline Phosphatase 118 U/L (38-126); Aspartate Amino Transferase 29 U/L (14-36); Bilirubin,Total 0.5 mg/dl (0.2-1.3); Blood Urea Nitrogen 16 mg/dl (7-17); Carbon Dioxide 22 mmol/L (22.0-30.0); Creatinine Clearance Estimated 56 mL/min (50-200); Estimated Glomerular Filt Rate 63 ml/min (>60); GFR (African American) 76 ML/MIN (>60); Globulin 3.2 g/dL (1.3-3.2); Glucose 120 mg/dl (74-100); Magnesium 1.6 mg/dl (1.6-2.3); Total Protein,Serum 7.2 g/dl (6.3-8.2)
[2022-11-28 07:59] LABS: Lymphocytes % 28 % (10-50); Monocytes % 1 % (2-9); Neutrophils % 71 % (42-76); Platelet Estimate Normal; RBC Morphology Normal; Total Cells Counted 100
--- NOTE | 2022-11-28 08:02 | PC.NURSE ---
Avtar gtt titrated at 0715 from 20 mcg/min to 30 mcg/min. Titrated to 40 mcg/min @ 0745. Titrated to 50 mcg/min 0750. Titrated to 60 mcg/min 0804.
--- NOTE | 2022-11-28 08:04 | EXP.ACUTE.PN ---
Subjective *Date: 11/28/22 *Time: 08:46 Interval history: Patient doing better this morning. Still has some residual right-sided weakness and difficulty with [id number]. Knows who she is and that she is at the hospital but then she is in [facility]. Able to follow directions. Stable on room air. No nausea or vomiting. No coughing with drinking. No dysarthria on exam Medical Exam Vital signs and Labs for Last 24 Hours: Vital Signs Temp Pulse Pulse Resp BP BP Pulse Ox 11/28/22 06:52 91 H 161/60 H 97 11/28/22 06:03 72 169/83 H 98 11/28/22 05:22 75 179/65 H 98 11/28/22 05:00 11/28/22 04:00 70 11/28/22 00:00 90 11/27/22 20:00 90 11/28/22 04:52 11/28/22 03:00 77 16 170/78 H 98 11/28/22 07:00 11/28/22 04:00 98.2 F 76 16 160/94 H 98 11/28/22 03:00 11/28/22 02:22 85 18 164/67 H 98 11/28/22 02:00 91 H 16 172/70 H 99 11/28/22 01:37 92 H 154/67 H 97 11/28/22 01:00 11/28/22 00:59 83 18 149/78 H 97 11/27/22 23:54 98.3 F 81 18 187/76 H 98 11/27/22 23:00 86 178/111 H 100 11/27/22 22:02 82 18 181/95 H 97 11/27/22 21:00 88 18 168/108 H 96 11/27/22 23:00 11/27/22 21:00 11/27/22 20:00 98.2 F 84 18 172/101 H 98 11/27/22 20:00 11/27/22 19:50 81 188/71 H 99 11/27/22 19:40 79 163/73 H 99 11/27/22 19:30 78 22 174/85 H 99 11/27/22 19:20 71 22 169/80 H 100 11/27/22 19:10 61 22 183/86 H 99 11/27/22 19:00 70 20 162/72 H 99 11/27/22 18:50 57 L 18 170/65 H 99 11/27/22 18:40 76 20 176/76 H 96 11/27/22 18:34 77 18 185/75 H 94 L 11/27/22 18:20 75 18 175/82 H 99 11/27/22 18:10 79 18 186/84 H 100 11/27/22 18:00 77 20 164/64 H 96 11/27/22 17:57 76 18 169/57 H 96 11/27/22 17:51 77 22 178/79 H 94 L 11/27/22 17:45 78 18 157/95 H 96 11/27/22 17:39 77 18 179/80 H 96 11/27/22 17:33 79 20 139/61 96 11/27/22 17:29 75 20 148/63 H 99 11/27/22 17:24 74 18 149/61 H 99 11/27/22 19:00 11/27/22 17:30 149/61 H 11/27/22 12:00 55 L 11/27/22 17:42 79 18 185/73 H 11/27/22 17:39 74 16 171/73 H 11/27/22 15:00 11/27/22 12:33 11/27/22 11:14 98.6 F 48 L 18 139/52 L 97 11/27/22 10:28 11/27/22 09:00 O2 Del Method 11/28/22 06:52 Room Air 11/28/22 06:03 Room Air 11/28/22 05:22 Room Air 11/28/22 05:00 Room Air 11/28/22 04:00 11/28/22 00:00 11/27/22 20:00 11/28/22 04:52 Room Air 11/28/22 03:00 Room Air 11/28/22 07:00 Room Air 11/28/22 04:00 Room Air 11/28/22 03:00 Room Air 11/28/22 02:22 11/28/22 02:00 Room Air 11/28/22 01:37 Room Air 11/28/22 01:00 Room Air 11/28/22 00:59 Room Air 11/27/22 23:54 Room Air 11/27/22 23:00 Room Air 11/27/22 22:02 Room Air 11/27/22 21:00 11/27/22 23:00 Room Air 11/27/22 21:00 Room Air 11/27/22 20:00 Room Air 11/27/22 20:00 Room Air 11/27/22 19:50 Room Air 11/27/22 19:40 Room Air 11/27/22 19:30 Room Air 11/27/22 19:20 Room Air 11/27/22 19:10 Room Air 11/27/22 19:00 Room Air 11/27/22 18:50 Room Air 11/27/22 18:40 Room Air 11/27/22 18:34 Room Air 11/27/22 18:20 Room Air 11/27/22 18:10 Room Air 11/27/22 18:00 Room Air 11/27/22 17:57 Room Air 11/27/22 17:51 Room Air 11/27/22 17:45 Room Air 11/27/22 17:39 Room Air 11/27/22 17:33 Room Air 11/27/22 17:29 Room Air 11/27/22 17:24 Room Air 11/27/22 19:00 Room Air 11/27/22 17:30 11/27/22 12:00 11/27/22 17:42 11/27/22 17:39 Room Air 11/27/22 15:00 Room Air 11/27/22 12:33 Room Air 11/27/22 11:14 Room Air 11/27/22 10:28 Room Air 11/27/22 09:00 Room Air Intake and Output 11/27/22 11/28/22 11/28/22 23:59 07:59 15:59 Output Total 0 / 1 1200 / 1200 Balance 0 / 1239 -1200 / -1200 Outpu
--- NOTE | 2022-11-28 08:40 | EXP.CARD.PN ---
Subjective Subjective Date: 11/28/22 Time: 08:41 Principal diagnosis: Peripheral artery disease Interval history: Patient underwent successful stenting of severe left subclavian and vertebral artery stenosis yesterday as well as bilateral renal artery stenosis. She experienced postprocedure complication of severe hypotension resulting in altered mental status and confusion. She was started on phenylephrine overnight with goal systolic blood pressure greater than 170. This morning she has ongoing mild confusion and disorientation. Exam Data for Last 24 hours Vital signs and Labs for Last 24 Hours: Temp Pulse Resp BP Pulse Ox O2 Del Method 97.7 F 80 16 161/60 H 97 Room Air 11/28/22 08:00 11/28/22 08:00 11/28/22 04:00 11/28/22 06:52 11/28/22 06:52 11/28/22 07:00 Laboratory Results - last 24 hr 11/27/22 16:37: Activated Clotting Time 297 H* 11/28/22 05:41: WBC 15.7 H D, RBC 5.62 H, Hgb 15.2, Hct 47.3 H, MCV 84.2, MCH 27.1, MCHC 32.1, RDW 12.9, Plt Count 283, MPV 8.0, Neut % (Auto) 78.5, Lymph % (Auto) 16.4, [place] % (Auto) 4.2, Eos % (Auto) 0.7, Baso % (Auto) 0.3, Neut # (Auto) 12.3 H, Lymph # (Auto) 2.6, [place] # (Auto) 0.7, Eos # (Auto) 0.1, Baso # (Auto) 0.1, Total Counted 100, Neutrophils % (Manual) 71, Lymphocytes % (Manual) 28, Monocytes % (Manual) 1 L, Platelet Estimate Normal, RBC Morphology Normal, Sodium 138, Potassium 4.0, Chloride 108 H, Carbon Dioxide 22, Anion Gap 12.0, BUN 16 D, Creatinine 0.90 D, Estimated Creat Clear 56, Estimated GFR 63, Est GFR ( Amer) 76 D, Glucose 120 H, Calcium 9.0, Magnesium 1.6 D, Total Bilirubin 0.5, AST 29, ALT 19, Alkaline Phosphatase 118, Total Protein 7.2, Albumin 4.0 D, Globulin 3.2, Albumin/Globulin Ratio 1.3 I & O for Last 24 hours: Intake & Output 11/25/22 11/26/22 11/27/22 11/28/22 23:59 23:59 23:59 23:59 Intake Total 240 / 480 1240 / 1240 120 / 120 Output Total 2 / 1200 / 1200 Balance 238 / 478 1239 / 1239 -1080 / -1080 Weight 138 lb 138 lb 0.009 oz 137 lb 6.4 oz Constitutional Constitutional: no acute distress and cooperative *Routine HEENT Exam Eye: Present PERRL *Routine Respiratory Exam Respiratory: Present CTA bilaterally; Absent accessory muscle use, wheezes or crackles *Routine Cardiovascular Exam Cardiovascular: Present RRR, Normal S1 and Normal S2; Absent murmur, gallop or rubs *Routine Abdominal Exam Abdominal: Present soft; Absent tenderness *Routine Extremities Exam Extremities: Present pulses intact; Absent cyanosis or edema *Routine Skin Exam Skin: Present intact; Absent erythema or wounds *Routine Neurological Exam Neurological: Present alert, altered mental status, moving all extremities and normal speech; Absent motor deficit, facial asymmetry or tremors Comments: Patient is disoriented to place and situation. She understands she is in the hospital and can identify herself and her but does not remember the events of yesterday. She also cannot identify the year. Routine Psychiatric Exam Psychiatric: Present cooperative Progress Note: A&P Assessment and plan (1) Stroke-like episode: Status: Acute (2) Renal artery stenosis: Status: Acute (3) Subclavian arterial stenosis: Status: Acute (4) Carotid artery stenosis: Status: Chronic (5) Major depression, chronic: Status: Chronic (6) Lacunar cerebrovascular accident (CVA): Status: Chronic (7) Hypothyroidism: Status: Chronic (8) Smoker: Status: Chronic (9) Acquired hypothyroidism: Status: Chronic (10) Hypertension: Status: Chronic (11) HLD (hyperlipidemia): Status: Chronic Assessment and Plan Assessment and Plan for All Diagnoses:: Acute AMS secondary to acute cerebral hypoperfusion -Patient has baseline severe left carotid stenosis and multiple prior CVA -BP 250 during renal artery stenting. Subsequent drop to 140s associated with altered mental status. -She is off all antihypertensives,
--- NOTE | 2022-11-28 08:41 | MR_ITS ---
FINAL REPORT CLINICAL HISTORY: STROKE/VISION DEFICITS, RIGHT SIDED WEAKNESS COMPARISON: 05/02/2020 FINDINGS: Multiplanar MR imaging of the brain was performed without contrast. There is age-appropriate atrophy, moderate chronic ischemic changes, and left occipital encephalomalacia which are stable. There is no evidence of intracranial hemorrhage or mass. The ventricular size is normal. There is no evidence of shift of the midline structures. There is a new foci of restricted diffusion involving the medial left temporal lobe and medial left occipital lobe consistent with acute left posterior cerebral artery territorial infarct. The posterior fossa and brainstem have an unremarkable appearance. There is opacification of several right mastoid air cells. IMPRESSION: Findings consistent with acute left posterior cerebral artery territorial infarct. Stable age-appropriate atrophy and chronic findings. Reviewed, Interpreted and Dictated by Jovanni Dominguez III, MD Transcribed by Zabrina Jackson Authenticated and [facility]
--- NOTE | 2022-11-28 10:24 | SW/DCPLANNER ---
Addendum entered by Zuri Marinelli 12/01/22 11:12: Karol w/ [facility] stated that they can accept this patient for services. Addendum entered by Zuri Marinelli 12/01/22 09:03: Patient information/order has been faxed to [facility]. Patient will discharge home today. Original Note: I spoke w/ patient and her regarding plans once medically stable for discharge. Patient resides at home w/ her and does not currently receive any assistance at home. PT/OT evaluated patient and recommended SNF or home w/home health. Patient is NOT interested in placement at time of discharge and prefers to return home w/ home health services. Patient stated that she does feel safe to return home. Patient prefers to use [facility] at time of discharge. Discharge date is unknown at this time: home health services will be set up once medically stable for discharge. Discharge date is unknown at this time.
--- NOTE | 2022-11-28 10:55 | HMH.PTEV ---
Physical Therapy Evaluation Rehab PT IP Evaluation Start: 11/28/22 08:01 Freq: ONCE Status: Active Protocol: Document 11/28/22 10:01 RADHADI (Rec: 11/28/22 10:55 JAMES [id number]) Subjective/History History History Patient is a 62 year old female admitted to [facility] 11/26/22 secondary to MELISSA. Patient presented with both carotid artery stenosis and renal artery stenosis. Subclaviana and reneal artery stents placed 11/27/22. After the procedure, patient had a hypotensive episode, requiring further monitoring. Patient currently lives at home with spouse and previously independent with all ADL's/ standing/ambulatory activities . Subjective Subjective I really just don't feel like doing anything. New diagnosis of cancer in past 12 No months? Rehab PT IP Eval Objective Appearance Patient Behavior Appropriate,Cooperative, Anxious Patient Orientation Person,Place,Birthday Difficulty following instructions none Speech Pattern Clear,Appropriate Ambulation Patient Able to Ambulate Yes Ambulation Observation IP General Gait Pattern Observation No Deviations/Normal Ambulation Distance (feet) 5 Ambulation Assistive Device Rolling Walker Ambulation Ability Contact Guard/Hand Hold Balance Ability to Arise Able, uses arms to help Sitting Balance Steady, safe Standing Balance Steady, wide stance Dynamic Sitting Balance Ability Normal Dynamic Standing Balance Ability Normal Transfers Bed Transfer Ability Minimal x 1 (25% assist) Sit to Stand Bed Transfer Ability Minimal x 1 (25% assist) ROM All Extremities PT ROM Status WFL MMT All Extremities PT MMT WFL Rehab PT IP prob,goals,plan Problems Date of Evaluation: 11/28/22 PT IP Problems Bed Mobility,Transfers,Gait, Balance,Self care,Safety Rehab Potential Rehab Potential Good Equipment Needs Assistive Devices None / NA Plan PT Intervention Plan Bed Mobility,Transfers,Gait, Balance,Self care,Safety, Therapeutic Exercise PT Plan Frequency BI
--- NOTE | 2022-11-28 12:01 | PC.NURSE ---
Pt back from MRI. VSS. BP 158/64. Avtar is currently infusing @ 70 mcg/min.
--- NOTE | 2022-11-28 12:53 | HMH.OTEV ---
OT Inpatient Evaluation Rehab OT IP Evaluation Start: 11/28/22 08:01 Freq: ONCE Status: Active Protocol: Document 11/28/22 11:04 RADAMES (Rec: 11/28/22 12:52 RADAMES [id number]) Rehab OT IP Assessment Subjective History Ms. Mata is a 38-year-old female with significant history of vasculopathy, tobacco use, history of doing her broke, hypothyroidism ED MARTINA, hyper engine, hyperlipidemia. She presented today for elective outpatient renal and carotid angiograms given image findings of renal artery stenosis and carotid artery stenosis. Patient has been seen by cardiology several years ago but was lost to follow-up. Recently reestablished with her primary provider who referred her back to cardiology for further evaluation and work-up of previous concerning arterial disease. Patient was noted to have slight MELISSA today with creatinine 1.5. After her procedure identifying bilateral subclavian stenosis, renal artery stenosis, and carotid artery stenosis, cardiology requested admission for monitoring overnight, gentle rehydration, and repeat angiography with intervention planned for tomorrow. 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 50% right renal artery stenosis, with dense calcification somewhat limiting the exact degree of left renal artery stenosis, however there is at least high-grade stenosis of the proximal left renal artery . There are mildly prominent fluid-filled small bowel loops
[2022-11-28 13:29] LABS: Chol/HDL Ratio 3.6 (1-3.5); Cholesterol 194 mg/dl (140-200); HDL Cholesterol 54 mg/dl (40-60); Triglycerides 103 mg/dl (30-150); VLDL Cholesterol 21 mg/dL (0-40)
[2022-11-28 13:40] LABS: Direct LDL Cholesterol 106.83 mg/dL (100-129)
--- NOTE | 2022-11-28 21:41 | PC.NURSE ---
Went to give patient her RLS medication and she was noted to be sitting on the side of the bed with her with her. Patient had gotten up with her to bedside commode; however, she urinated in floor. Patient dry and very apologetic. Ensured patient safety, educated rail transportation tabeler oh use for assistance r/t her monitoring devices and IV tubing. Patient and agreed. Patient's floor cleaned up and she is back in bed resting.
[2022-11-29] VITALS (29 sets, daily range): BP systolic 113–187; BP diastolic 48–89; PULSE 59–136; RESP 14–69; TEMP 36.8–37.1; O2SAT 91–97; BMI 23.9; BMI 22.8
--- NOTE | 2022-11-29 02:33 | PC.NURSE ---
Went in to check patient IV pump alarming. Patient found to be standing at her bedside after getting up to bedside without calling for assist. Spouse is noted to be laying in chair bed sleeping. Assisted patient to edge of bed. She was very apologetic. I reinforced education regarding her moderate fall risk status, her call oh, and risk of injury that could occur. Patient's left forearm IV was noted to be displaced and laying in bed. Bleeding was slight, and controlled. I helped clean up patient, straitened her monitoring cords, IV tubing changed to her right forearm IV, and assisted her back to bed. I turned bed alarm on and educated patient on this, so that it was important for her to use her call oh for assistance. Spouse noted to be covering his face from the lights on and did not participate in education.
[2022-11-29 07:35] LABS: Basophils # 0.1 K/mm3 (0-0.2); Basophils % 0.6 % (0.1-2.0); Eosinophils # 0.2 K/mm3 (0.0-0.4); Eosinophils % 1.3 % (0.1-12.0); Hemoglobin 13.6 g/dL (12.2-16.2); Lymphocytes % 22.3 % (10-50); Mean Corpuscular Hemoglobin 26.8 pg (27.0-31.2); Mean Corpuscular Volume 86.6 fl (81-99); Monocytes # 0.7 K/mm3 (0.1-1.0); Monocytes % 5.2 % (1.7-9.3); Neutrophils # 9.6 K/mm3 (1.8-7.8); Neutrophils % 70.5 % (37.0-80.0); Platelet Count 270 K/mm3 (142-424); Red Blood Count 5.08 M/mm3 (4.20-5.40); Red Cell Distribution Width 12.9 % (11.5-17.5); White Blood Count 13.6 K/mm3 (4.8-10.8)
[2022-11-29 07:40] LABS: Chloride 107 mmol/L (98-107); Sodium 141 mmol/L (136-145)
[2022-11-29 07:43] LABS: Alanine Aminotransferase 21 U/L (12-78); Albumin Level 3.7 g/dl (3.5-5.0); Albumin/Globulin Ratio 1.2 (1.1-1.8); Alkaline Phosphatase 107 U/L (38-126); Aspartate Amino Transferase 31 U/L (14-36); Bilirubin,Total 0.7 mg/dl (0.2-1.3); Blood Urea Nitrogen 9 mg/dl (7-17); Carbon Dioxide 28 mmol/L (22.0-30.0); Creatinine Clearance Estimated 53 mL/min (50-200); Estimated Glomerular Filt Rate 72 ml/min (>60); GFR (African American) 87 ML/MIN (>60); Globulin 3.2 g/dL (1.3-3.2); Total Protein,Serum 6.9 g/dl (6.3-8.2)
[2022-11-29 07:44] LABS: Calcium 8.7 mg/dl (8.4-10.2); Glucose 112 mg/dl (74-100)
--- NOTE | 2022-11-29 09:00 | PC.NURSE ---
Avtar gtt titrated from 60 mcg/min to 50 mcg/min @ 0800. Titrated to 40 mcg/min @ 0900.
--- NOTE | 2022-11-29 09:42 | EXP.ACUTE.PN ---
Subjective *Date: 11/29/22 *Time: 12:18 Interval history: Patient doing better this morning. Still has some residual right-sided weakness and difficulty with [id number]. Knows who she is and that she is at the hospital but then she is in [facility]. Able to follow directions. Stable on room air. No nausea or vomiting. No coughing with drinking. No dysarthria on exam Review of neurology notes shows the following: She has a history of previous left occipital CVA in 2020, (brain MRI consistent with subacute left occipital CVA. CT of the head 10/20/2022: Left occipital encephalomalacia consistent with a previous CVA, old bilateral lacunar infarcts, (small vessel ischemia). CT angiogram of the head and neck 10/12/2022: Left ICA stenotic lesion of at least 80%. Medical Exam Vital signs and Labs for Last 24 Hours: Vital Signs Temp Pulse Pulse Resp BP Pulse Ox O2 Del Method 11/29/22 08:00 70 11/29/22 08:00 Room Air 11/29/22 07:21 98.2 F 11/29/22 06:10 Room Air 11/29/22 06:00 98.8 F 69 19 176/88 H 95 Room Air 11/29/22 05:00 65 17 162/89 H 96 Room Air 11/29/22 04:49 Room Air 11/29/22 04:00 60 11/29/22 04:00 61 16 173/64 H 96 Room Air 11/29/22 02:44 Room Air 11/29/22 02:37 98.3 F 61 16 153/50 H 96 Room Air 11/29/22 02:00 100 H 19 168/56 H 94 L Room Air 11/29/22 01:00 Room Air 11/29/22 00:00 70 11/28/22 23:00 Room Air 11/29/22 00:00 66 16 169/61 H 96 Room Air 11/28/22 22:00 97.7 F 79 17 153/63 H 96 Room Air 11/28/22 21:00 Room Air 11/28/22 20:07 60 11/28/22 20:00 95 Room Air 11/28/22 20:00 98.1 F 65 16 167/55 H 95 Room Air 11/28/22 19:19 69 19 180/64 H 95 Room Air 11/28/22 19:00 Room Air 11/28/22 18:00 67 18 175/63 H 95 Room Air 11/28/22 17:00 72 19 174/66 H 98 Room Air 11/28/22 16:00 60 11/28/22 16:00 Room Air 11/28/22 16:47 Room Air 11/28/22 15:00 Room Air 11/28/22 16:00 99.1 F 65 17 168/61 H 96 Room Air 11/28/22 12:00 70 11/28/22 14:00 76 20 159/56 H 95 Room Air 11/28/22 13:00 68 19 178/66 H 95 Room Air 11/28/22 13:00 Room Air 11/28/22 12:00 68 19 158/61 H 98 Room Air 11/28/22 12:00 97.6 F 11/28/22 10:30 73 19 150/50 H 99 Room Air 11/28/22 10:54 Room Air 11/28/22 10:00 68 20 143/57 H 99 Room Air 11/28/22 09:45 78 20 150/59 H 98 Room Air Intake and Output 11/28/22 11/29/22 11/29/22 23:59 07:59 15:59 Intake Total 1190 / 1190 Output Total 600 / 1800 1300 / 1300 0 / 1300 Balance -600 / -610 -110 / -110 0 / -110 Intake: Intake, Oral Amount 440 / 440 Intake, Total IV Amount 500 / 500 Lactated Ringers 1000ML 1,000 500 / 500 ml @ 100 mls/hr IV .Q10H BACILIO Rx #:[id number] Infusion Intake 250 / 250 Phenylephrine HCl 10 mg In 0.9 250 / 250 % Sodium Chloride 250 ml @ 40 MCG/MIN 60.24 mls/hr IV .Q4H10M BACILIO Rx#:[id number] Output: Output, Urine Amount 600 / 1800 1300 / 1300 0 / 1300 Other: Number of Voids 0 Number of Unmeasured Voids 1 1 1 Weight 58.598 kg Patient Weight 11/29/22 23:59 Weight 58.598 kg Laboratory Results - last 24 hr 11/28/22 05:41: Triglycerides 103, Cholesterol 194, LDL Cholesterol Direct 106.83, VLDL Cholesterol 21, HDL Cholesterol 54, Cholesterol/HDL Ratio 3.6 H 10/07/23 06:53: WBC 13.6 H, RBC 5.08, Hgb 13.6, Hct 44.0, MCV 86.6, MCH 26.8 L, MCHC 31.0 L, RDW 12.9, Plt Count 270, MPV 8.0, Neut % (Auto) 70.5, Lymph % (Auto) 22.3, Yell % (Auto) 5.2, Eos % (Auto) 1.3, Baso % (Auto) 0.6, Neut # (Auto) 9.6 H, Lymph # (Auto) 3.0, Yell # (Auto) 0.7, Eos # (Auto) 0.2, Baso # (Auto) 0.1, Sodium 141, Potassium 4.0, Chloride 107, Carbon Dioxide 28, Anion Gap 10.0, BUN 9 D, Creatinine 0.80, Estimated Creat Clear 53, Estimated GFR 72, Est GFR ( Amer)
--- NOTE | 2022-11-29 10:36 | PC.NURSE ---
Avtar gtt titrated to 30 mcg/min.
--- NOTE | 2022-11-29 18:21 | PC.NURSE ---
Pt sat up to chair this afternoon. She is currently back in bed. Avtar titrated per protocol. 1423 Avtar @ 40 mcg/min. 1649 Avtar @ 50 mcg/min. 1730 Avtar @ 40 mcg/min. 1825 Avtar @ 30 mcg/min.
--- NOTE | 2022-11-29 19:03 | PC.NURSE ---
Avtar gtt titrated to 20 mcg/min.
--- NOTE | 2022-11-29 20:50 | PC.NURSE ---
sharri gtt titrated to 10 mcg
--- NOTE | 2022-11-29 21:49 | PC.NURSE ---
sharri gtt put on standby at 2114, turned back on to 40 mcg at 2144
--- NOTE | 2022-11-29 22:17 | PC.NURSE ---
sharri gtt titrated up to 40 mcg
--- NOTE | 2022-11-29 23:11 | PC.NURSE ---
Patient got up to bedside commode and heart rate increased to 120's-130's. AMY Cervantes notified. Patient then became bradycardic with heart rate into 50's then became tachycardic again in the 90's. AMY Cervantes aware. No new orders except to keep running sharri gtt.
--- NOTE | 2022-11-29 23:32 | PC.NURSE ---
sharri gtt titrated to 20 mcg
[2022-11-30] VITALS (20 sets, daily range): BP systolic 106–200; BP diastolic 48–86; PULSE 60–103; RESP 14–20; TEMP 36.7–37.1; O2SAT 91–97
--- NOTE | 2022-11-30 01:07 | PC.NURSE ---
sharri gtt placed on standby due to bp 195/73
--- NOTE | 2022-11-30 01:19 | PC.NURSE ---
sharri gtt restarted at 20 mcg bp 106/48
--- NOTE | 2022-11-30 04:12 | PC.NURSE ---
Patient rested during rest of shift, sharri gtt currently running at 20 mcg. Blood pressures range systolic from low 110's to 170's. Patient alert to self and place. No other changes noted.
--- NOTE | 2022-11-30 05:04 | PC.NURSE ---
sharri gtt titrated to 40 mcg
[2022-11-30 07:21] LABS: Basophils % 0.2 % (0.1-2.0); Eosinophils # 0.1 K/mm3 (0.0-0.4); Eosinophils % 0.6 % (0.1-12.0); Hematocrit 40.6 % (37.0-47.0); Hemoglobin 12.7 g/dL (12.2-16.2); Lymphocytes # 3.6 K/mm3 (0.7-4.5); Lymphocytes % 29.6 % (10-50); Mean Corpuscular HGB Conc 31.3 g/dL (31.8-35.4); Mean Corpuscular Hemoglobin 26.9 pg (27.0-31.2); Mean Corpuscular Volume 85.9 fl (81-99); Mean Platelet Volume 8.1 fl (7.4-10.4); Monocytes # 0.3 K/mm3 (0.1-1.0); Monocytes % 2.7 % (1.7-9.3); Neutrophils % 66.8 % (37.0-80.0); Platelet Count 238 K/mm3 (142-424); Red Blood Count 4.73 M/mm3 (4.20-5.40); Red Cell Distribution Width 12.8 % (11.5-17.5)
--- NOTE | 2022-11-30 07:25 | PC.NURSE ---
Avtar titrated to 30 mcg/min
[2022-11-30 07:30] LABS: Chloride 113 mmol/L (98-107); Potassium 3.6 mmoL/L (3.5-5.1); Sodium 139 mmol/L (136-145)
[2022-11-30 07:33] LABS: Alanine Aminotransferase 16 U/L (12-78); Albumin/Globulin Ratio 1.2 (1.1-1.8); Alkaline Phosphatase 89 U/L (38-126); Anion Gap 6.6 mEq/L (5-15); Aspartate Amino Transferase 26 U/L (14-36); Bilirubin,Total 0.6 mg/dl (0.2-1.3); Blood Urea Nitrogen 8 mg/dl (7-17); Carbon Dioxide 23 mmol/L (22.0-30.0); Creatinine Clearance Estimated 53 mL/min (50-200); Estimated Glomerular Filt Rate 63 ml/min (>60); GFR (African American) 76 ML/MIN (>60); Globulin 2.6 g/dL (1.3-3.2); Total Protein,Serum 5.6 g/dl (6.3-8.2)
[2022-11-30 07:34] LABS: Calcium 8.2 mg/dl (8.4-10.2); Glucose 102 mg/dl (74-100)
--- NOTE | 2022-11-30 09:00 | PC.NURSE ---
Avtar gtt titrated to 20 mcg/min.
--- NOTE | 2022-11-30 10:04 | EXP.ACUTE.PN ---
Subjective *Date: 11/30/22 *Time: 12:14 Interval history: Patient doing better this morning. No deficits bilaterally. Oriented to person and place. Knows that it is Thursday but unsure about month. Slight improvement in vision per her report. No nausea or vomiting. No chest pain. [place] dizzy when stood this morning, developed some bradycardia overnight. Weaning off phenylephrine this morning Medical Exam Vital signs and Labs for Last 24 Hours: Vital Signs Temp Pulse Pulse Resp BP Pulse Ox O2 Del Method 11/30/22 08:00 Room Air 11/30/22 07:42 98.2 F 11/30/22 06:42 Room Air 11/30/22 06:00 76 16 144/66 H 93 L Room Air 11/30/22 04:00 100 H 11/30/22 00:00 80 11/30/22 05:30 86 16 164/68 H 91 L Room Air 11/30/22 05:05 Room Air 11/30/22 05:00 76 16 117/67 94 L Room Air 11/30/22 04:05 Room Air 11/30/22 03:45 98.5 F 78 14 153/66 H 92 L Room Air 11/30/22 03:00 Room Air 11/30/22 02:00 102 H 16 140/48 L 92 L Room Air 11/30/22 01:19 103 H 16 106/48 L 93 L Room Air 11/30/22 01:00 103 H 195/73 H 92 L Room Air 11/30/22 01:00 Room Air 11/29/22 20:00 60 11/30/22 00:00 98.6 F 83 14 135/69 93 L Room Air 11/29/22 22:59 67 11/29/22 22:56 136 H 11/29/22 23:30 73 14 169/67 H 91 L Room Air 11/29/22 23:05 Room Air 11/29/22 22:30 92 H 16 151/57 H 93 L Room Air 11/29/22 22:15 99 H 14 115/59 L 93 L Room Air 11/29/22 22:00 98 H 14 130/67 94 L Room Air 11/29/22 21:45 101 H 14 113/48 L 93 L Room Air 11/29/22 21:30 94 H 16 166/58 H 92 L Room Air 11/29/22 21:15 94 H 16 187/77 H 91 L Room Air 11/29/22 21:00 99 H 16 167/59 H 91 L Room Air 11/29/22 21:04 Room Air 11/29/22 20:10 Room Air 11/29/22 20:45 84 16 152/81 H 92 L Room Air 11/29/22 20:30 64 16 166/72 H 92 L Room Air 11/29/22 20:00 67 69 H 147/59 H 95 Room Air 11/29/22 18:42 Room Air 11/29/22 18:00 68 20 157/69 H 94 L Room Air 11/29/22 16:00 70 11/29/22 16:00 72 21 158/68 H 96 Room Air 11/29/22 14:00 66 20 141/65 H 92 L Room Air 11/29/22 17:00 Room Air 11/29/22 16:00 Room Air 11/29/22 15:00 Room Air 11/29/22 15:01 98.5 F 11/29/22 12:00 80 11/29/22 12:00 85 20 154/56 H 97 Room Air 11/29/22 12:46 Room Air 11/29/22 11:00 Room Air 11/29/22 11:02 98.6 F 11/29/22 10:30 63 19 167/74 H 95 Room Air Intake and Output 11/29/22 11/30/22 11/30/22 23:59 07:59 15:59 Intake Total 1680 / 3446 1040 / 1040 Output Total 0 / 1300 Balance 1680 / 2146 1040 / 1040 Intake: Intake, Oral Amount 240 / 950 120 / 120 Intake, Total IV Amount 1440 / 2246 920 / 920 0.9 % Sodium Chloride 1000ML 1, 464 / 721 680 / 680 000 ml @ 100 mls/hr IV .Q10H BACILIO Rx#:[id number] Phenylephrine HCl 10 mg In 0.9 976 / 1025 240 / 240 % Sodium Chloride 250 ml @ 40 MCG/MIN 60.24 mls/hr IV .Q4H10M BACILIO Rx#:[id number] Output: Output, Urine Amount 0 / 1300 Other: Number of Unmeasured Voids 2 Number of Bowel Movements 1 Laboratory Results - last 24 hr 11/30/22 06:38: WBC 12.0 H, RBC 4.73, Hgb 12.7, Hct 40.6, MCV 85.9, MCH 26.9 L, MCHC 31.3 L, RDW 12.8, Plt Count 238, MPV 8.1, Neut % (Auto) 66.8, Lymph % (Auto) 29.6, [place] % (Auto) 2.7, Eos % (Auto) 0.6, Baso % (Auto) 0.2, Neut # (Auto) 8.0 H, Lymph # (Auto) 3.6, Angelina # (Auto) 0.3, Eos # (Auto) 0.1, Baso # (Auto) 0.0, Sodium 139, Potassium 3.6, Chloride 113 H, Carbon Dioxide 23, Anion Gap 6.6, BUN 8, Creatinine 0.90, Estimated Creat Clear 53, Estimated GFR 63, Est GFR ( Amer) 76, Glucose 102 H, Calcium 8.2 L, Total Bilirubin 0.6, AST 26, ALT 16, Alkaline Phosphatase 89, Total Protein 5.6 L, Albumin 3.0 L D, Globulin 2.6, Albumin/Globulin Ratio 1.2 I & O for Labs for Last 24 Hours:
--- NOTE | 2022-11-30 13:01 | PC.NURSE ---
Avtar gtt titrated to 10 mcg/min @ 1000. It was placed on standby at 1100. BP is stable at this time.
--- NOTE | 2022-11-30 16:36 | PC.NURSE ---
Pt has remained off Avtar GTT. Has ambulated to BR with assist x1. Tolerated good. Partial bath given. Pt is up in the chair visiting with family.
--- NOTE | 2022-11-30 21:37 | PC.NURSE ---
it was reported to this nurse of blood prssure 200/77 at 1999 recheck is 176/62, no changes at this time will continue to monitor
--- NOTE | 2022-11-30 22:50 | PC.NURSE ---
midodrine held at this time blood pressure 182/76
[2022-12-01] VITALS: BP 147/85; PULSE 80; PULSE 88; RESP 18; TEMP 36.9; O2SAT 96
[2022-12-01 04:00] VITALS: BP 188/88; PULSE 90; PULSE 94; RESP 18; TEMP 36.7; O2SAT 96; BMI 25.0
--- NOTE | 2022-12-01 04:08 | PC.NURSE ---
Patient has rested well this shift, VSS, no acute changes. no voiced complaints or concerns.
[2022-12-01 06:59] LABS: Basophils % 0.2 % (0.1-2.0); Eosinophils # 0.2 K/mm3 (0.0-0.4); Eosinophils % 1.8 % (0.1-12.0); Hematocrit 37.7 % (37.0-47.0); Lymphocytes # 2.3 K/mm3 (0.7-4.5); Lymphocytes % 28.2 % (10-50); Mean Corpuscular HGB Conc 31.9 g/dL (31.8-35.4); Mean Corpuscular Hemoglobin 27.2 pg (27.0-31.2); Mean Corpuscular Volume 85.4 fl (81-99); Mean Platelet Volume 8.1 fl (7.4-10.4); Monocytes # 0.4 K/mm3 (0.1-1.0); Monocytes % 4.2 % (1.7-9.3); Neutrophils # 5.5 K/mm3 (1.8-7.8); Neutrophils % 65.7 % (37.0-80.0); Platelet Count 207 K/mm3 (142-424); Red Blood Count 4.42 M/mm3 (4.20-5.40); Red Cell Distribution Width 12.8 % (11.5-17.5); White Blood Count 8.3 K/mm3 (4.8-10.8)
[2022-12-01 07:07] LABS: Chloride 110 mmol/L (98-107); Sodium 141 mmol/L (136-145)
[2022-12-01 07:08] LABS: Potassium 3.6 mmoL/L (3.5-5.1)
[2022-12-01 07:10] LABS: Alanine Aminotransferase 15 U/L (12-78); Albumin Level 3.1 g/dl (3.5-5.0); Albumin/Globulin Ratio 1.2 (1.1-1.8); Alkaline Phosphatase 94 U/L (38-126); Anion Gap 10.6 mEq/L (5-15); Aspartate Amino Transferase 24 U/L (14-36); Bilirubin,Total 0.5 mg/dl (0.2-1.3); Blood Urea Nitrogen 8 mg/dl (7-17); Calcium 8.5 mg/dl (8.4-10.2); Carbon Dioxide 24 mmol/L (22.0-30.0); Creatinine Clearance Estimated 57 mL/min (50-200); Estimated Glomerular Filt Rate 63 ml/min (>60); GFR (African American) 76 ML/MIN (>60); Globulin 2.6 g/dL (1.3-3.2); Glucose 104 mg/dl (74-100); Total Protein,Serum 5.7 g/dl (6.3-8.2)
[2022-12-01 07:11] LABS: Magnesium 1.5 mg/dl (1.6-2.3)
[2022-12-01 07:24] VITALS: BP 163/77; PULSE 92; RESP 26; TEMP 36.8; O2SAT 96
[2022-12-01 08:00] VITALS: PULSE 85
--- NOTE | 2022-12-01 08:21 | EXP.CARD.PN ---
Subjective Subjective Date: 12/01/22 Time: 08:21 Principal diagnosis: Peripheral artery disease Interval history: 62-year-old white female lying in bed in no acute distress. She is aware of where she is in the year but is unsure of the date and month. She reports still with some visual disturbances of the right eye. She is anxious to go home. Blood pressure in the right arm measured at 163/88 mmHg, blood pressure in the left arm 183 mm Hg systolic. Exam Data for Last 24 hours Vital signs and Labs for Last 24 Hours: Temp Pulse Resp BP Pulse Ox O2 Del Method 98.2 F 92 H 26 H 163/77 H 96 Room Air 12/01/22 07:24 12/01/22 07:24 12/01/22 07:24 12/01/22 07:24 12/01/22 07:24 12/01/22 07:24 Laboratory Results - last 24 hr 12/01/22 06:35: WBC 8.3 D, RBC 4.42, Hgb 12.0 L, Hct 37.7, MCV 85.4, MCH 27.2, MCHC 31.9, RDW 12.8, Plt Count 207, MPV 8.1, Neut % (Auto) 65.7, Lymph % (Auto) 28.2, [place] % (Auto) 4.2, Eos % (Auto) 1.8, Baso % (Auto) 0.2, Neut # (Auto) 5.5, Lymph # (Auto) 2.3, [place] # (Auto) 0.4, Eos # (Auto) 0.2, Baso # (Auto) 0.0, Sodium 141, Potassium 3.6, Chloride 110 H, Carbon Dioxide 24, Anion Gap 10.6, BUN 8, Creatinine 0.90, Estimated Creat Clear 57, Estimated GFR 63, Est GFR ( Amer) 76, Glucose 104 H, Calcium 8.5, Magnesium 1.5 L, Total Bilirubin 0.5, AST 24, ALT 15, Alkaline Phosphatase 94, Total Protein 5.7 L, Albumin 3.1 L, Globulin 2.6, Albumin/Globulin Ratio 1.2 I & O for Last 24 hours: Intake & Output 11/28/22 11/29/22 11/30/22 12/01/22 11:59 11:59 11:59 11:59 Intake Total 120 / 120 1616 / 1616 2990 / 2990 1080 / 1080 Output Total 1200 / 1200 1900 / 1900 0 / 0 700 / 700 Balance -1080 / -1080 -284 / -284 2990 / 2990 380 / 380 Weight 137 lb 6.4 oz 129 lb 3 oz 141 lb 1 oz Constitutional Constitutional: no acute distress *Routine Respiratory Exam Respiratory: Present CTA bilaterally *Routine Cardiovascular Exam Cardiovascular: Present RRR *Routine Extremities Exam Extremities: Absent edema *Routine Neurological Exam Neurological: Present alert Progress Note: A&P Assessment and plan (1) Occipital stroke: Problem details: Left occipital CVA in 2020 and this visit Status: Acute (2) Renal artery stenosis: Status: Acute (3) Subclavian arterial stenosis: Status: Acute (4) Carotid artery stenosis: Status: Chronic (5) Major depression, chronic: Status: Chronic (6) Lacunar cerebrovascular accident (CVA): Status: Chronic (7) Hypothyroidism: Status: Chronic (8) Smoker: Status: Chronic (9) Acquired hypothyroidism: Status: Chronic (10) Hypertension: Status: Chronic (11) HLD (hyperlipidemia): Status: Chronic Assessment and Plan Assessment and Plan for All Diagnoses:: 1. Acute AMS secondary to acute cerebral hypoperfusion, slowly improved -Patient has baseline severe left carotid stenosis and multiple prior CVA -BP 250 during renal artery stenting. Subsequent drop to 140s associated with altered mental status. -Transient use of phenylephrine. Now off of this with blood pressure in the 160 to 180 mmHg systolic range -Patient likely needs urgent revascularization of left internal carotid artery, will consult with [facility] Dr. Recinos -MRI shows acute left posterior cerebral artery territorial infarct. Stable age-appropriate atrophy and chronic findings noted 2. Bilateral subclavian artery stenosis status post left subclavian and vertebral artery stenting 11/27 -Continue Plavix and statin -Successful intervention on left, will leave right to medical management she is asymptomatic at this time 3. Bilateral renal artery stenosis with hypertension and renal insufficiency status post successful bilateral renal artery stenting 11/27 -Continue ASA, Plavix, statin and BP control -Creatinine stable and improving 0.9 4. Bilateral carotid artery stenosis -With noted bilateral carotid bruits and dizziness
--- NOTE | 2022-12-01 08:27 | EXP.DC.SUM ---
General Admission date:: 11/26/22 Discharge date: 12/01/22 HPI HPI HPI: Ms. Mata is a 38-year-old female with significant history of vasculopathy, tobacco use, history of occipital stroke, hypothyroidism ED MARTINA, hypertension, hyperlipidemia. She presented today for elective outpatient renal and carotid angiograms given image findings of renal artery stenosis and carotid artery stenosis. Patient has been seen by cardiology several years ago but was lost to follow-up. Recently reestablished with her primary provider who referred her back to cardiology for further evaluation and work-up of previous concerning arterial disease. Patient was noted to have slight MELISSA today with creatinine 1.5. After her procedure identifying bilateral subclavian stenosis, renal artery stenosis, and carotid artery stenosis, cardiology requested admission for monitoring overnight, gentle rehydration, and repeat angiography with intervention planned for tomorrow. 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 50% right renal artery stenosis, with dense calcification somewhat limiting the exact degree of left renal artery stenosis, however there is at least high-grade stenosis of the proximal left renal artery. There are mildly prominent fluid-filled small bowel loops, and enteritis is not excluded. Neck CTA: Carotid artery stenosis- CTA showed 80% stenosis left ICA, 40% in right. Echocardiogram obtained 11/24 with the following finding: Normal LV systolic size and function. Marked increase in asymmetric LV wall thickness (IVSd=1.9 cm). Systolic anterior motion (SANDRA) of the mitral valve without septal contact. No evidence of high LVOT obstruction at rest. LVOT gradient at Valsalva was not evaluated in the study. The combination of findings is highly suggestive of hypertrophic cardiomyopathy. Hospital Course Hospital Course Hospital Course: 62-year-old female with significant vasculopathy and MELISSA. Admitted for monitoring overnight and treatment of MELISSA. Kidney function improved by morning. Taken for angiography with stenting of left subclavian and bilateral renal arteries. Developed strokelike symptoms after procedure with normalization of blood pressure. Admitted to stepdown for transient right-sided weakness. Initiated on phenylephrine drip due to hypertrophic cardiomyopathy. Blood pressure remained at goal greater than 140 with ability to wean pressors during admission. Neurologic deficits improved with onloy some slight residual loss of vision. given clinical stability, patient stable to discharge home with close follow-up with cardiology. Referred to Neurology for additional eval of stroke symptoms. No residual motor deficits on right side. During admission, problems addressed as follows: Occipital stroke acute right sided weakness, resolved Vision impairment, persists - After stenting of renal arteries and left subclavian artery, patient developed right sided weakness, dysarthria, and vision changes. CT obtained with no acute findings. Blood pressure with increased with phenylephrine due to relative hypotension and development of neurologic symptoms after BP dropped below 160 systolic. Symptoms gradually improved over several hours, but due to residual vision impairment, MRI obtained the following morning with positive findings showing occipital and temporal stroke on the left side, numerous chronic findings present as well. Gradually weaned phenylephrine, goal blood pressure greater than 130. Autoregulation of blood pressure improved over the following days and Mrs Mata was able to resume low dose metoprolol on day of discharge. Due to residual vision deficits, recommended she have repeat ophthalmology evaluation with her regular provider in the next few weeks and was referred to her neurologist for further outpatient management. On DAPT. PT and OT assisting with care during admission. Tung
--- NOTE | 2022-12-01 10:21 | P.CONPHA_ITS ---
PHA Heel Lift Gouger Discharge Med Parks And Recreation Manager: [place] Mata has received discharge medication counseling on the following medications: ASPIRIN 81 MG DAILY CLOPIDOGREL 75 MG DAILY METOPROLOL SUCCINATE 25 MG DAILY ROSUVASTATIN 20 MG HS STOPPED LISINOPRIL ON D/C
--- NOTE | 2022-12-02 14:11 | SW/DCPLANNER ---
Follow up phone call was made with this patient today. Patient stated that she is doing well at home and home health nurse was at patient's house at time of my call. Patient does not have any further needs/questions at this time.
== END 2022-12-01 10:43 | disposition home or self-care (01) | DRG 65 ==
LOC: 2ND 14:39
PROVIDERS: Internal Medicine; Physician Assistant; Specialist; Admitting Provider Internal Medicine Adolescent Medicine; PCP Nurse Practitioner; Visit Provider Internal Medicine Adolescent Medicine
DX: I63.89 Other cerebral infarction (principal); G81.91 Hemiplegia, unspecified affecting right dominant side; N17.9 Acute kidney failure, unspecified; I10 Essential (primary) hypertension; I65.23 Occlusion and stenosis of bilateral carotid arteries; I70.1 Atherosclerosis of renal artery; I70.8 Atherosclerosis of other arteries; I77.1 Stricture of artery; F32.9 Major depressive disorder, single episode, unspecified; G47.33 Obstructive sleep apnea (adult) (pediatric); E03.9 Hypothyroidism, unspecified; F17.200 Nicotine dependence, unspecified, uncomplicated; G47.00 Insomnia, unspecified; G25.81 Restless legs syndrome; E78.2 Mixed hyperlipidemia; F17.210 Nicotine dependence, cigarettes, uncomplicated; Z96.641 Presence of right artificial hip joint; Z71.6 Tobacco abuse counseling
CPT/HCPCS: 36415; 70450; 70551; 80053; 80061; 82565; 83735; 84520; 85007; 85014; 85018; 85025; 85048; 85049; 85347; 93306; 93926; 97116; 97163; 97165; 97530; 99152; 99153; C1725; C1760; C1766; C1769; C1876; C1887; C1894; J1644; J3475; Q9967

== ENCOUNTER → 2022-12-08 09:38 | Outpatient (CLI) | payer MEDICARE, SELFPAY | PROVIDERS: PCP Nurse Practitioner; Visit Provider Specialist | DX: R93.89 Abnormal findings on diagnostic imaging of other specified body structures (principal); Z86.73 Personal history of transient ischemic attack (TIA), and cerebral infarction without residual deficits ==

== ENCOUNTER 2023-03-18 16:13 | Outpatient (CLI) | payer MEDICARE, SELFPAY ==
[2023-03-18 17:28] LABS: Creatine Kinase 115 U/L (30-135)
[2023-03-18 18:11] LABS: Ferritin 51.8 ng/ml (11.1-264)
[2023-03-19 14:13] LABS: Aldolase 13.6 U/L (3.3-10.3)
== END 2023-03-18 23:59 ==
LOC: LAB 16:16
PROVIDERS: PCP Family Medicine; Visit Provider Specialist
DX: I63.532 Cerebral infarction due to unspecified occlusion or stenosis of left posterior cerebral artery; I70.90 Unspecified atherosclerosis; I65.29 Occlusion and stenosis of unspecified carotid artery; E11.9 Type 2 diabetes mellitus without complications; Z79.899 Other long term (current) drug therapy
CPT/HCPCS: 36415; 82085; 82550; 82728

== ENCOUNTER 2023-04-17 09:31 | Outpatient (CLI) | payer MEDICARE, SELFPAY ==
--- NOTE | 2023-04-17 09:50 | MR_ITS ---
APPROVED REPORT Plant Pathologist: CLINICAL INDICATION Cardiomyopathy evaluation. TECHNIQUE Image Acquisition: Cardiac magnetic resonance (CMR) was performed on Siemens Espree MRI 1.5T scanner. Software platform sequences were performed using the Siemens Pikum MR B19 platform. A set of three-plane, low-resolution, large [id number] localizers were initially acquired. Then axial, coronal, sagittal TrueFISP, as well as axial HASTE images, were obtained. These were followed by gated TrueFISP breathold cinematic sequences obtained in the short axis with 8 mm slices and 2 mm gaps, 2-chamber (vertical long axis), 3-chamber, 4-chamber (horizontal long axis). A bolus of contrast was injected intravenously with first-pass sequences obtained in the short axis and four-chamber planes. After approximately 10 minutes, a TI medical education coordinator sequence was performed to determine the optimal TI time. Using the optimized TI time, delayed contrast enhancement segmented inversion???recovery TurboFLASH sequences were obtained in the short axis, 2-chamber, 3-chamber, and 4-chamber projections. 2D-velocity phase mapping was performed. Functional parameters were calculated by offline analysis on an independent workstation ([email or web address] Platform, [email or web address]). Contrast: ProHance??? (Gadoteridol) FINDINGS MORPHOLOGY AND FUNCTION Left ventricle: The left ventricle is normal in size. The indexed left ventricular end-diastolic volume (LVEDVi) is 65 ml/m2 (reference range 57-105 ml/m2 in males, 56-96 ml/m2 in females). Normal left ventricular systolic function is present. There is increased left ventricular wall thickness, proximal septal thickening is noted. The maximum LV wall thickness is 14.6 mm. There are no regional wall motion abnormalities noted. LVEF is calculated at 59.2% (reference range 57-77%). Right ventricle: The right ventricle is normal in size. The indexed right ventricular end-diastolic volume (RVEDVi) is 70 ml/m2 (reference range 61-121 ml/m2 in males, 48-112 ml/m2 in females). Normal right ventricular systolic function is present. RVEF is calculated at 54.3% (reference range 52-72% in males, 51-71% in females). Atria: The left atrium is normal in size. The maximum indexed left atrial volume is 16 ml/m2 (reference range 26-52 ml/m2 in males, 27-53 ml/m2 in females). The right atrium is normal in size. The maximum indexed right atrial volume is 24 ml/m2 (reference range 18-90 ml/m2). Aorta: The diameter of the aortic annulus is normal, measuring 19 mm (coronal view reference range 21-30 mm in males, 19-27 mm in females). The diameter of the aortic sinus is normal, measuring 25 mm (coronal view reference range 25-42 mm in males, 24-36 mm in females). The diameter of the sinotubular junction is normal, measuring 21 mm (coronal view reference range 18-32 mm in males, 18-28 mm in females). The diameters of the ascending and descending thoracic aorta are normal. Main pulmonary artery: The main pulmonary artery diameter is normal. Pericardium: The pericardial thickness is normal. The pericardial thickness measures 2.1 cm (normal < 4.0 cm). There is no pericardial effusion. VALVES The valvular morphologies in the visualized sequences appear normal. There is no significant valvular stenosis or regurgitation of the mitral, aortic, tricuspid, or pulmonic valve noted visually. Systolic anterior motion of the mitral valve is not visualized. Ratio of pulmonary to systemic flow, Qp:Qs ratio = 1.1 (normal < or = 1.2), demonstrating no evidence of hemodynamically significant shunt. TISSUE CHARACTERIZATION Resting Perfusion: Normal myocardial blood flow at rest. No evidence of resting hypoperfusion. Myocardial Fibrosis and/or edema: Normal gadolinium kinetics are present. No evidence of late gadolinium enhancement is noted, consistent with absence of myocardial scarring, infarction, or necrosis. T2-weighted imaging demonstrates no evidence of myocardial edema or inflammation. OTHER No other significant findings are noted. However, this exam is focused on the cardiac structure and function. IMPRESSION Normal LV size with normal LV systolic function. LVEDVi= 65 ml/m2 and LVEF= 59.2%. Normal RV size with normal RV systolic function. RVEDVi= 70 ml/m2 and RVEF= 54.3%. No atrial enlargement. No CMR evidence of myocardial scarring, infarction, or necrosis. No evidence of myocardial edema or inflammation. Perfusion analysis demonstrates normal blood flow at rest with no evidence of resting hypoperfusion. Ratio of pulmonary to systemic flow, Qp:Qs ratio = 1.1 (normal < or = 1.2), demonstrating no evidence of hemodynamically significant shunt. Overall, this CMR demonstrates normal biventricular systolic function. There is proximal septal thickening with asymmetric increase in LV wall thickness, but not meeting criteria for HCM. COMPARISON None CRITICAL RESULT None COMMUNICATION Per this written report The findings of this cardiac MR were reviewed, reported, and signed by Nael Yusuf MD (Benefits Clerk). Conclusion Electronically signed by : Neelima Yusuf MD 04/23/2023 12:03:35
[2023-04-17 09:59] LABS: Blood Urea Nitrogen 20 mg/dl (7-17); Estimated Glomerular Filt Rate 50 ml/min (>60); GFR (African American) 61 ML/MIN (>60)
[2023-04-17] MEDS: SODIUM CHLORIDE 0.9% 10ML SYR (RAD ONLY) 10 ML IV (11:33)
[2023-04-17] MEDS: SODIUM CHLORIDE 0.9% 50ML BAG 25 ML IV (11:33)
[2023-04-17] MEDS: GADOTERIDOL INJ 17ML SYRINGE 14 ML IV (11:34)
== END 2023-04-17 23:59 ==
LOC: RAD 09:35
PROVIDERS: PCP Family Medicine; Visit Provider Physician Assistant
DX: E78.5 Hyperlipidemia, unspecified (principal); F17.200 Nicotine dependence, unspecified, uncomplicated; I10 Essential (primary) hypertension; I42.8 Other cardiomyopathies; R94.31 Abnormal electrocardiogram [ECG] [EKG]
CPT/HCPCS: 36415; 75561; 82565; 84520; A9576

== ENCOUNTER 2023-04-23 12:36 | Outpatient (CLI) | payer MEDICARE, SELFPAY ==
[2023-04-23 12:58] LABS: Basophils # 0.1 K/mm3 (0-0.2); Basophils % 1.1 % (0.1-2.0); Eosinophils # 0.1 K/mm3 (0.0-0.4); Eosinophils % 0.7 % (0.1-12.0); Hematocrit 42.1 % (37.0-47.0); Hemoglobin 13.2 g/dL (12.2-16.2); Lymphocytes # 2.4 K/mm3 (0.7-4.5); Lymphocytes % 32.6 % (10-50); Mean Corpuscular HGB Conc 31.3 g/dL (31.8-35.4); Mean Corpuscular Hemoglobin 28.5 pg (27.0-31.2); Mean Corpuscular Volume 90.8 fl (81-99); Mean Platelet Volume 8.2 fl (7.4-10.4); Monocytes # 0.4 K/mm3 (0.1-1.0); Monocytes % 4.7 % (1.7-9.3); Neutrophils # 4.5 K/mm3 (1.8-7.8); Neutrophils % 60.9 % (37.0-80.0); Platelet Count 301 K/mm3 (142-424); Red Blood Count 4.63 M/mm3 (4.20-5.40); Red Cell Distribution Width 13.2 % (11.5-17.5); White Blood Count 7.3 K/mm3 (4.8-10.8)
[2023-04-23 13:39] LABS: Alanine Aminotransferase 20 U/L (12-78); Albumin Level 4.3 g/dl (3.5-5.0); Alkaline Phosphatase 96 U/L (38-126); Amylase 56 U/L (30-110); Anion Gap 10.8 mEq/L (5-15); Aspartate Amino Transferase 27 U/L (14-36); Bilirubin,Direct 0.2 mg/dl (0.0-0.4); Bilirubin,Indirect 0.1 mg/dL (0.0-0.9); Bilirubin,Total 0.3 mg/dl (0.2-1.3); Bilirubin,Unconjugated 0.1 mg/dL (0.0-1.1); Blood Urea Nitrogen 14 mg/dl (7-17); Calcium 9.5 mg/dl (8.4-10.2); Carbon Dioxide 29 mmol/L (22.0-30.0); Chloride 103 mmol/L (98-107); Chol/HDL Ratio 3.8 (1-3.5); Cholesterol 173 mg/dl (140-200); Estimated Glomerular Filt Rate 72 ml/min (>60); GFR (African American) 87 ML/MIN (>60); Glucose 127 mg/dl (74-100); HDL Cholesterol 46 mg/dl (40-60); Lipase 413 U/L (23-300); Potassium 3.8 mmoL/L (3.5-5.1); Sodium 139 mmol/L (136-145); Total Protein,Serum 6.9 g/dl (6.3-8.2); Triglycerides 133 mg/dl (30-150); VLDL Cholesterol 27 mg/dL (0-40)
[2023-04-23 13:50] LABS: Direct LDL Cholesterol 89.76 mg/dL (100-129)
[2023-04-23 13:56] LABS: Free T4 (Free Thyroxine) 0.91 ng/dl (0.78-2.19)
[2023-04-23 14:09] LABS: Thyroid Stimulating Hormone 1.74 uIU/mL (0.465-4.68)
== END 2023-04-23 23:59 ==
LOC: LAB 12:37
PROVIDERS: PCP Family Medicine; Visit Provider Internal Medicine
DX: R06.00 Dyspnea, unspecified; E11.9 Type 2 diabetes mellitus without complications; E78.5 Hyperlipidemia, unspecified; G25.81 Restless legs syndrome; I25.10 Atherosclerotic heart disease of native coronary artery without angina pectoris; I63.532 Cerebral infarction due to unspecified occlusion or stenosis of left posterior cerebral artery; I65.22 Occlusion and stenosis of left carotid artery; I77.1 Stricture of artery; Z72.0 Tobacco use; K21.9 Gastro-esophageal reflux disease without esophagitis; I11.9 Hypertensive heart disease without heart failure; I65.23 Occlusion and stenosis of bilateral carotid arteries
CPT/HCPCS: 36415; 80048; 80061; 80076; 82150; 83690; 84439; 84443; 85025

== ENCOUNTER 2023-05-12 13:51 | Outpatient (RCR) | payer MEDICARE, SELFPAY ==
--- NOTE | 2023-05-12 15:09 | HMH.PTOPEV ---
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 The patient reports that she has persistent weakness, numbness and tingling into her left arm, abdominal region and left leg. The patient reports that she has not fallen, but she walks very cautiously because she is afraid that she will. The patient reports that she is able to take care of herself independently but it has gotten much more difficult since the stroke. The patient reports that she is sometime dizzy but attributes that to hypertension. New diagnosis of cancer in past 12 No months? Chief Complaint Paresthesia,Weakness,Decreased Coordination Symptom Type Numbness,Tingling Symptoms Relieved By Nothing Prior Functional Limitations None Current Functional Limitations Lifting,Housework,Driving, Standing,Walking,Stairs, Balance Symptom Description Constant and Continuous Level of pain today (0-10) 0 Pain scale - at its best (0-10) 0 Pain scale - at its worst (0-10) 3 Hip/Knee Eval MMT right Hip Flexion Strength Grade 5 Normal Hip Abduction Strength Grade 5 Normal Hip Extension Strength Grade 4 Good Knee Extension Strength Grade 5 Normal Knee Flexion Strength Grade 5 Normal left Hip Flexion Strength Grade 2+ Poor+ Hip Abduction Strength Grade 2+ Poor+ Hip Extension Strength Grade 2- Poor- Knee Extension Strength Grade 2- Poor- Knee Flexion Strength Grade 2+ Poor+ Ankle/Foot Eval MMT right Ankle Dorsiflexion Strength Grade 5 Normal Ankle Plantarflexion Strength Grade 5 Normal left Ankle Dorsiflexion Strength Grade 2+ Poor+ Ankle Plantarflexion Strength Grade 4- Good- Balance Eval Chief Complaint vertigo No Did you feel dizzy, unsteady or faint? No Hx of Falls Hx Falls No Gait/Posture Asssessment General Gait Observation Narrow Based Gait,Shuffling Step Assistive Devices None / NA Level of Transfer Assist Standby Assistance Hip Observation in Gait Swing Decreased Flexion,Externally Rotated Ankle/Foot Observation in Gait Swing Decreased Foot Clearance Timed Up and Go Test 1. Is the Timed Up and Go test result > yes or = to 12 seconds? [place] Feet Together/Eyes open/Stable Surface pass Feet Together/Eyes Closed/Stable Surface pass Feet Together/Eyes open/Unstable Surface fail Feet Together/Eyes Closed/Unstable fail Surface Tinetti Sitting Balance Sitting Balance Steady, safe Arising from Chair Ability to Arise Able, uses arms to help Attempts to Arise Arises on 1st attempt Standing Balance Immediate Standing Balance Steady w/o support Standing Balance Steady, wide stance Nudged Response Staggers, catches self Standing with Eyes Closed Unsteady Turning Step Pattern Turning 360 Degrees Discontinuous steps Stability Turning 360 Degrees Unsteady, grabs/staggers Sitting Down Sitting Down Safe, steady Gait and Step Initiation of Gait No hesitancy Right Foot Step Length Does not pass stance ft. Right Foot Step Height Completely clears floor Left Foot Step Length Does not pass stance foot Left Foot Step Height Completely clears floor Step Description Step Symmetry Step length appears equal Step Continuity Steps appear continuous Gait Description Path Description Straight Trunk Description No sway but posturing Walking Stance Heels apart Scoring and Interpretation Tinetti Composite Score (points) 18 Interpretation of Scores High risk for falls(< 19) Outpatient Therapy Assessment Impairments Problems/Impairmments Impaired Strength,Impaired Endurance,Impaired Gait Pattern,Impaired Walking, Impaired Standing,Impaired Stair Climbing,Impaired Incline Stepping,Impaired Stepping on Uneven Surface, Impaired Recreational Activities,Impaired Tinnetti Score,Impaired TUG Time, Impaired Self Care/Self Management Prognosis Rehab Potential Fair Comment Patient presents with weakness of her LLE globally and per Tinnetti, presents as a a high fall risk. Skilled PT is indicated for this patient to promote a return to her prior level of function and to reduce her fall risk level. Clinical Impression Consistent with Diagnosis Yes Short Term Goals Number of Weeks 4 Increase Strength Yes: 3/5 LLE globally Increase Endurance Yes: stand for 15 minutes Improve Gait Pattern without Assistive Yes: Improve step length and Device foot clearance Increase Tinnetti Score Yes: 23 Decrease TUG Time Yes: 15 seconds Patient to be Ind w/ HEP Yes Half-Way Goals Number of Weeks 10-12 Increase Strength Yes: 4/5 LLE Globally Improve Gait Pattern without Assistive Yes: no deviations Device Increase Ability to Stand Yes: 30 minutes Increase Tinnetti Score Yes: 26 Decrease TUG Time Yes: 12 seconds Patient to be Ind w/ Advanced HEP Yes Outpatient Therapy Plan of Care Treatment Plan May Include Therapeutic Exercise Including Home Yes Exercise Program Manual Therapy Techniques Yes Neuromuscular Re-education Yes Therapeutic Activities to Return to Yes Previous Functional/Work Level Gait Training Yes ADL/Self Care Education Yes Mechanical Traction Yes Dry Needling Yes Thermal Modalities Yes Electrical Stimulation Yes Ultrasound/Phonophoresis Yes Orthotics/Bracing/Splinting Yes Massage Yes Manual Lymphatic Drainage Yes Eval/Re-Eval Yes Frequency Times per week 2-3/week Duration Number of Weeks 10-12 Addendums This patient is a candidate for social No or vocational rehab? Patient/Guardian verbally acknowledges Yes understanding of treatment program and consents to further treatment? Patient/Guardian verbally acknowledges Yes understanding of diagnosis, prognosis and goals for treatment? Eval Complexity PT Charges 98793 - High Complexity Shoulder/Elbow Eval Shoulder Objective Measurements Elbow Objective Measurements PHYSICIAN CERTIFICATION: I certify the specified therapy services for [place] Mata are required, authorized, and reviewed every 30 days.
== END 2023-05-12 15:00 | disposition home or self-care (01) ==
LOC: PT 13:51
PROVIDERS: Visit Provider Family Medicine
DX: R53.1 Weakness (principal); R20.2 Paresthesia of skin; Z86.73 Personal history of transient ischemic attack (TIA), and cerebral infarction without residual deficits
CPT/HCPCS: 97163

== ENCOUNTER 2023-07-18 17:32 | Emergency (ER) | payer MEDICARE, SELFPAY ==
[2023-07-18 18:45] VITALS: PULSE 81; RESP 20; TEMP 36.9; O2SAT 99; BMI 22.6
--- NOTE | 2023-07-18 20:07 | ED_ITS ---
Discharge Plan Disposition Patient Disposition: Home, Self-Care Condition: Good Prescriptions Prescriptions: New mupirocin 2 % ointment 1 applic topical BID Qty: 22 0RF No Action pantoprazole [Protonix] 40 mg tablet,delayed release (DR/EC) 40 mg PO DAILY Qty: 30 5RF sucralfate [Carafate] 1 gram tablet 1 g PO BID Qty: 60 5RF mirtazapine 15 mg tablet 15 mg PO HS Patient Comments: TAKE 1 TABLET BY MOUTH ONCE DAILY. atorvastatin [Lipitor] 40 mg tablet 40 mg PO DAILY Qty: 90 3RF lorazepam 1 mg tablet 1 mg PO HS PRN (Reason: sleep) Qty: 30 3RF Horizant 600 mg tablet extended release 600 mg PO HS Qty: 30 5RF Rx Instructions: administer daily at approximately 5 PM with food/evening meal clopidogrel [Plavix] 75 mg tablet 75 mg PO DAILY Qty: 90 3RF hydrochlorothiazide 25 mg tablet 25 mg PO DAILY Qty: 90 3RF duloxetine 30 mg capsule,delayed release(DR/EC) 60 mg PO DAILY Qty: 90 3RF hydroxyzine pamoate 25 mg capsule See Rx Instructions .ROUTE .COMPLEX Qty: 60 0RF Dose Instruction: Take 1 to 2 Capsules by mouth at bedtime nightly as needed for sleep. Rx Instructions: Take 1 to 2 Capsules by mouth at bedtime nightly as needed for sleep. pramipexole 1 mg tablet 1 mg PO TIDP PRN (Reason: Restless Leg(S)) Qty: 90 3RF metoprolol succinate 25 mg tablet extended release 24 hr 25 mg PO DAILY Qty: 90 3RF levothyroxine 50 mcg tablet 50 mcg PO DAILY aspirin 81 mg Tablet,Delayed Release (Dr/Ec) 81 mg PO DAILY 30 Days Qty: 30 0RF Referrals Follow up/Referrals: Provider,Referral, MD [Primary Care Provider] - See instructions Activity Restrictions/Add. Instructions Additional Instructions/Restrictions: Take blood pressure medication as soon as you get home. Make a follow up appointment with PCP next week. Check BP regularly at least 3 times a week and keep record. Keep skin tear clean and dry. Clinical Impressions Clinical Impression: Noninfected skin tear of left lower extremity, Hypertension Instructions Patient Instructions: Skin Wound, Lifestyle Habits May Lower Risk of Hypertension in Women, Treatments for High Blood Pressure: More Than Just Taking a Pill Discharge ED Provider: Emmanuelle Atkins [facility] [place] General Stated complaint: AO5 fell out of chair and cut on right Leg Mode of Arrival: Ambulatory Source of Information: Patient Limitations: No Limitations Time Seen by Provider: 07/18/23 19:10 Description of Symptoms (Recalled from Triage Doc. by RN): Pt was painting on a chair and chair came out from under her. She has a skin tear on granados. HEENT Symptoms (Recalled from RN notes): No Resp Symptoms (Recalled from RN notes): No Skin Symptoms (Recalled from RN notes): Yes MS Symptoms (Recalled from RN notes): No Functional Status (Recalled from RN notes): n/a Related Data Home Medications Medication Instructions Recorded Confirmed levothyroxine 50 mcg tablet 50 mcg PO DAILY Thyroid 11/26/22 04/29/23 mirtazapine 15 mg tablet 15 mg PO HS 03/18/23 04/29/23 Previous Rx's Medication Instructions Recorded aspirin 81 mg tablet,delayed 81 mg PO DAILY 30 days #30 tabs 12/01/22 release duloxetine 30 mg capsule,delayed 60 mg (2 x 30 mg) PO DAILY Mood 12/19/22 release #90 caps hydrochlorothiazide 25 mg tablet 25 mg PO DAILY #90 tabs 12/19/22 atorvastatin 40 mg tablet (Lipitor) 40 mg PO DAILY #90 tabs 03/02/23 lorazepam 1 mg tablet 1 mg PO HS PRN sleep #30 tabs 03/02/23 hydroxyzine pamoate 25 mg capsule See Rx Instructions .Route 04/13/23 .COMPLEX #60 caps pantoprazole 40 mg tablet,delayed 40 mg PO DAILY #30 tabs 04/23/23 release (Protonix) sucralfate 1 gram tablet (Carafate) 1 g PO BID #60 tabs 04/23/23 clopidogrel 75 mg tablet (Plavix) 75 mg PO DAILY Platelet Inhibitor 04/29/23 #90 tabs gabapentin enacarbil 600 mg 600 mg PO HS RLS #30 tabs 04/29/23 tablet,extended release (Horizant ER) pramipexole 1 mg tablet 1 mg PO TIDP PRN Restless Leg(S) 05/25/23 #90 tabs metoprolol succinate 25 mg 25 mg PO DAILY #90 tabs 06/18/23 tablet,extended release 24 hr mupirocin 2 % topical ointment 1 applic topical BID #22 grams 07/18/23 Allergies Allergy/AdvReac Type Severity Reaction Status Date / Time Cephalosporins Allergy Unknown Unknown Verified 07/18/23 19:05 allergy reaction Penicillins Allergy Unknown Unknown Verified 07/18/23 19:05 allergy reaction Sutures Allergy Unknown Verified 07/18/23 19:05 allergy reaction Worker's Comp Is this a Worker's Comp case?: [facility] Disclaimer: The information contained in this section may have been updated after the patient was seen, as this information can be updated by other users. Medical History Cardiomyopathy History of CVA (cerebrovascular accident) Incontinence Renal artery stenosis Smoker Insomnia Acquired hypothyroidism IFG (impaired fasting glucose) Left leg paresthesias Abnormal head CT 10/20/2022 CT head: Left occipital encephalomalacia consistent with previous CVA, old bilateral lacunar infarcts. MARTINA (obstructive sleep apnea) Severe MARTINA: Trial with AutoPap was discussed and recommended. Order sent to [facility] for AutoPap trial 6/16 cm with heated humidifier. Consider formal titration if needed. History of paresthesia RLS (restless legs syndrome) Essential hypertension Carotid artery stenosis L-ICA angoplasty and stenting 01/07/2023, CB Left carotid bruit Cardiac murmur Restless sleeper Family history of early CAD Claudication Dyspnea Edema Ex-smoker Abnormal EKG HLD (hyperlipidemia) HTN (hypertension) Surgical History History of carpal tunnel surgery Hx of tonsillectomy Hx of tubal ligation Hx of cholecystectomy History of thoracotomy History of right hip replacement Family History Mother Hypertension Diabetes Other Hyperlipidemia Social History Smoking Status: Current every day smoker tobacco type: cigarettes packs per day: 2 years smoked: 51 quit status: not considering quitting second hand exposure: No alcohol intake: never substance use type: denies use current occupational status: disabled Travel in the last 8 weeks: None household members: other housing: house caffeine: Yes ROS Obtained: Yes All systems reviewed & no additional complaints except as documented Constitutional Constitutional: Reports system reviewed and no additional complaints, except as documented Eyes Eyes: Reports system reviewed and no additional complaints, except as documented ENT Ears, Nose, Mouth, and Throat: Reports system reviewed and no additional complaints, except as documented Cardiovascular Cardiovascular: Reports system reviewed and no additional complaints, except as documented Respiratory Respiratory: Reports system reviewed and no additional complaints, except as documented Gastrointestinal Gastrointestingal: Reports system reviewed and no additional complaints, except as documented Genitourinary Female Genitourinary: Reports system reviewed and no additional complaints, except as documented Musculoskeletal Musculoskeletal: Reports system reviewed and no additional complaints, except as documented Integumentary/Breasts Skin/Breast: Reports system reviewed and no additional complaints, except as documented and Reports wounds Neurologic Neurologic: Reports system reviewed and no additional complaints, except as documented Endocrine Endocrine: Reports system reviewed and no additional complaints, except as do cumented Hematologic/Lymphatic Henatologic/Lymphatic: Reports system reviewed and no additional complaints, except as documented and Reports easy bleeding Comments: on Plavix Allergic/Immunologic Allergic/Immunologic: Reports system reviewed and no additional complaints, except as documented Physical Exam General General appearance: alert and in no apparent distress Head Head exam: atraumatic and normocephalic Eye Eye exam: Present normal appearance ENT ENT exam: Present normal exam Neck Neck exam: Present normal inspection Chest Chest inspection: Present normal inspection and symmetric chest wall rise Respiratory Respiratory exam: Present normal lung sounds bilaterally Cardiovascular Cardiovascular exam: Present regular rate and normal rhythm Abdominal Exam Abdominal exam: Present soft Back Exam Back exam: Present normal inspection Neurological Exam Neurological exam: Present alert and oriented X3 Psychiatric Psychiatric exam: Present normal affect and normal mood Skin Skin exam: Present other Expanded Skin Exam Type of lesion: Present laceration Distribution: LLE Description: Present size (about 2 inches ) Lymphatic Lymphatic Findings: no adenopathy Medical Decision Making Hardeep Inquiry Pt receiving controlled substance: No Hardeep was queried for this patient: No Vital Signs: 07/18/23 18:45 Temperature 98.4 F Temperature Source Oral Pulse Rate [Right Radial] 81 Respiratory Rate 20 02 Sat by Pulse Oximetry 99 Oxygen Delivery Method Room Air Procedures Miscellaneous Procedure Procedure Performed: left lower extremity cleaned with hibiclens and sterile water. Non- adherent dressing applied and wrapped with kerlix.
[2023-07-18 20:20] VITALS: BP 204/84; PULSE 81; RESP 20; TEMP 36.9; O2SAT 99
--- NOTE | 2023-07-18 20:32 | PC.NURSE ---
Pt stated that she has not taken her blood pressure medication today and it as baseline is always high.
--- NOTE | 2023-07-18 20:48 | PC.NURSE ---
Provider spoke with patient about education on blood pressure medication and she needs to speak with primary care provider about changing how she is taking them from all at night to through out the day. And or changing them to getting it under control. She stated that she understood and she would talk with them about it. I cleaned and dressed the skin tear on her leg.
== END 2023-07-18 20:20 | disposition home or self-care (01) ==
PROVIDERS: Emergency Provider Nurse Practitioner Family
DX: S81.801A Unspecified open wound, right lower leg, initial encounter (principal); I10 Essential (primary) hypertension; W22.8XXA Striking against or struck by other objects, initial encounter
CPT/HCPCS: 99204; 99212; G0463

== ENCOUNTER 2023-08-23 16:37 | Emergency (ER) | payer SELFPAY ==
[2023-08-23 16:37] VITALS: BP 161/69; PULSE 98; RESP 18; TEMP 36.8; O2SAT 97; BMI 22.1
[2023-08-23 17:04] VITALS: BP 181/79; PULSE 97; O2SAT 94
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
[2023-08-23 18:13] VITALS: BP 184/81; PULSE 98; RESP 20; TEMP 36.7; O2SAT 97
== END 2023-08-23 18:14 | disposition home or self-care (01) ==
PROVIDERS: Emergency Provider Student in an Organized Health Care Education/Training Program; PCP Family Medicine
DX: G25.81 Restless legs syndrome (principal); V47.5XXA Car driver injured in collision with fixed or stationary object in traffic accident, initial encounter; Y92.410 Unspecified street and highway as the place of occurrence of the external cause
CPT/HCPCS: 99283

== ENCOUNTER 2023-12-28 12:02 | Outpatient (CLI) | payer MEDICARE, SELFPAY ==
[2023-12-28 18:56] LABS: Albumin Level 4.3 g/dl (3.5-5.0); Chloride 106 mmol/L (98-107); Potassium 4.2 mmoL/L (3.5-5.1); Sodium 140 mmol/L (136-145)
[2023-12-28 18:58] LABS: Blood Urea Nitrogen 20 mg/dl (7-17); Estimated Glomerular Filt Rate 56 ml/min (>60); GFR (African American) 67 ML/MIN (>60)
[2023-12-28 18:59] LABS: Alanine Aminotransferase 15 U/L (12-78); Albumin/Globulin Ratio 1.5 (1.1-1.8); Alkaline Phosphatase 94 U/L (38-126); Anion Gap 13.2 mEq/L (5-15); Aspartate Amino Transferase 23 U/L (14-36); Bilirubin,Total 0.6 mg/dl (0.2-1.3); Calcium 9.7 mg/dl (8.4-10.2); Carbon Dioxide 25 mmol/L (22.0-30.0); Chol/HDL Ratio 3.5 (1-3.5); Cholesterol 179 mg/dl (140-200); Globulin 2.8 g/dL (1.3-3.2); Glucose 144 mg/dl (74-100); HDL Cholesterol 51 mg/dl (40-60); Total Protein,Serum 7.1 g/dl (6.3-8.2); Triglycerides 136 mg/dl (30-150); VLDL Cholesterol 27 mg/dL (0-40)
[2023-12-28 19:10] LABS: Direct LDL Cholesterol 100.72 mg/dL (100-129)
== END 2023-12-28 23:59 | disposition home or self-care (01) ==
LOC: LAB.DROPOF 12-29 12:02
PROVIDERS: PCP Family Medicine; Visit Provider Family Medicine
DX: I10 Essential (primary) hypertension (principal); I65.23 Occlusion and stenosis of bilateral carotid arteries
CPT/HCPCS: 80053; 80061

== ENCOUNTER 2024-06-21 10:06 | Observation (INO) | payer MEDICARE, SELFPAY ==
[2024-06-21] VITALS (9 sets, daily range): BP systolic 119–199; BP diastolic 59–95; PULSE 67–91; RESP 17–18; TEMP 36.6–37.1; O2SAT 96–98; BMI 22.1; BMI 23.1
--- NOTE | 2024-06-21 10:19 | HMH.EDGENADL ---
Discharge Plan Disposition Patient Disposition: Admitted Condition: Good Clinical Impressions Clinical Impression: Altered mental status, CVA (cerebral vascular accident) Discharge ED Provider: Hoda Berumen General Adult HPI General Chief complaint: Neuro Symptoms/Deficit Stated complaint: left arm pain, numbness, past stroke Time Seen by Provider: 06/21/24 10:10 History of Present Illness HPI narrative: This patient is a 63-year-old female with a history of prior occipital CVA with minor residual left lower extremity numbness, visual change, and short term memory issues, tobacco abuse, hypertension, hyperlipidemia, CAD, and extensive cardiovascular disease presenting to the emergency department for evaluation with concern for possible stroke. Patient arrives with her sister. According to the sister, the patient has been acting abnormally for several days now, maybe up to 10 days. She notes that she tried to get her to come to the emergency department, but she has not wanted to come. She notes that she has seemed more confused than usual and has been complaining of worsened numbness on the left side. Patient also states that her vision is worse, more blurry than usual. Sister also notes that her speech seems a little bit abnormal and she seems more confused. She notes that she was having trouble finding the seatbelt in her memory how to buckle up 3 days ago when they had gone for a car ride. She also notes she has not been eating or drinking as much as usual or taking any of her medications. She denies any other concerns or complaint such as fevers, chest pain, shortness of breath, abdominal pain, Vomiting, or urinary symptoms. And tingling. on review of systems, patient reports headache, visual disturbance, numbness Related Data Home Medications ?Medication ?Instructions ?Recorded ?Confirmed mirtazapine 15 mg tablet 15 mg PO HS 06/21/24 06/21/24 Previous Rx's ?Medication ?Instructions ?Recorded aspirin 81 mg tablet,delayed 81 mg PO DAILY 30 days #30 tabs 12/01/22 release pramipexole 1 mg tablet 1 mg PO TIDP PRN Restless Leg(S) 05/27/24 #90 tabs Allergies Allergy/AdvReac Type Severity Reaction Status Date / Time Cephalosporins Allergy Unknown Unknown Verified 12/28/23 11:12 allergy reaction Penicillins Allergy Unknown Unknown Verified 12/28/23 11:12 allergy reaction Sutures Allergy Unknown Verified 12/28/23 11:12 allergy reaction PFSH PFSH Disclaimer: The information contained in this section may have been updated after the patient was seen, as this information can be updated by other users. Medical History Cardiomyopathy History of CVA (cerebrovascular accident) Incontinence Renal artery stenosis Smoker Insomnia Acquired hypothyroidism IFG (impaired fasting glucose) Left leg paresthesias Abnormal head CT MARTINA (obstructive sleep apnea) History of paresthesia RLS (restless legs syndrome) Essential hypertension Carotid artery stenosis Left carotid bruit Cardiac murmur Restless sleeper Family history of early CAD Claudication Dyspnea Edema Ex-smoker Abnormal EKG HLD (hyperlipidemia) HTN (hypertension) Surgical History History of carpal tunnel surgery Hx of tonsillectomy Hx of tubal ligation Hx of cholecystectomy History of thoracotomy History of right hip replacement Family History Mother Hypertension Diabetes Other Hyperlipidemia Social History (Updated 06/21/24 @ 13:26 by Esther Almonte RN) Smoking Status: Current every day smoker tobacco type: cigarettes packs per day: 2 years smoked: 51 quit status: not considering quitting second hand exposure: No alcohol intake: current substance use type: denies use current occupational status: disabled Travel in the last 8 weeks?: None household members: other housing: house caffeine: Yes Have you lived/traveled outside [place] in past 30 days?: No Contact w/someone who lives/traveled outside US past 30 days?: No Exposure to someone with infectious disease in past 14 days?: No Do you have a fever (greater than 100.4 F or 38 C)?: No Have you tested positive for COVID-19?: No Exposed to someone with COVID-19 in past 14 days?: No Do you have a sore throat?: No Do you have a cough?: No Do you have any weakness?: No Are you experiencing any nausea/vomitting?: No Do you have any diarrhea?: No Are you experiencing any unusual bleeding?: No Do you have any muscle aches/pain?: No Do you have any abdominal pain?: No Are you experiencing loss of taste or smell?: No Other Medical History Have you received the Flu Vaccine for this season: No Have you received the Pneumonia Vaccine: Yes ROS Obtained: Yes All systems reviewed & no additional complaints except as documented Physical Exam General General appearance: alert and in no apparent distress Head Head exam: atraumatic and normocephalic Eye Eye exam: Present normal appearance, PERRL and EOMI ENT ENT exam: Present normal exam, normal oropharynx, mucous membranes moist and normal external ear exam Neck Neck exam: Present normal inspection, full ROM and trachea midline; Absent tenderness Chest Chest inspection: Present normal inspection and symmetric chest wall rise; Absent tenderness Respiratory Respiratory exam: Present normal lung sounds bilaterally; Absent respiratory distress, wheezes, stridor or accessory muscle use Cardiovascular Cardiovascular exam: Present regular rate and normal rhythm Abdominal Exam Abdominal exam: Present soft; Absent distention, tenderness or guarding Extremities Exam Extremities exam: Present normal inspection, full ROM and normal capillary refill; Absent tenderness or edema Back Exam Back exam: Present normal inspection and full ROM; Absent tenderness Neurological Exam Neurological exam: Present alert, motor sensory deficit and other (NIH stroke scale of 6 because the patient has minor facial droop with stable to overcome, partial hemianopia, mild dysarthria, mild aphasia with some word finding difficulty, subjective decrease in sensation of the left lower extremity); Absent oriented X3 or CN II-XII intact Psychiatric Psychiatric exam: Present normal affect and normal mood Skin Skin exam: Present warm and dry Medical Decision Making Medical Records Medical records reviewed: Yes I reviewed the patient's medical records. Screening: Per USPSTF and CDC recommendations, given the prevalence of disease in our region, it is our hospital?s policy to screen for HIV and viral Hepatitis for all patients aged 18 and over and those with ongoing risk factors. Hardeep Inquiry Pt receiving controlled substance: No Vital Signs: 06/21/24 10:16 06/21/24 11:01 06/21/24 11:30 Temperature 98.7 F Temperature Source Oral Pulse Rate 74 69 Pulse Rate [Left Radial] 91 H Respiratory Rate 17 17 Blood Pressure 185/95 H 178/89 H Blood Pressure [Right Arm] 197/84 H Blood Pressure Mean [Right Arm] 121 Blood Pressure Source [Right Arm] Automatic Cuff Blood Pressure Position [Right Arm] Sitting 02 Sat by Pulse Oximetry 97 97 97 Oxygen Delivery Method Room Air Room Air Room Air 06/21/24 12:17 06/21/24 12:17 Temperature Temperature Source Pulse Rate Pulse Rate [Left Radial] 67 Respiratory Rate 18 Blood Pressure Blood Pressure [Right Arm] 126/72 Blood Pressure Mean [Right Arm] 90 Blood Pressure Source [Right Arm] Automatic Cuff Blood Pressure Position [Right Arm] Supine 02 Sat by Pulse Oximetry 97 Oxygen Delivery Method Room Air Room Air Lab Data Lab results reviewed: Yes I reviewed the patient's lab results. Lab Results 06/21/24 10:04: Hemoglobin A1c 5.9 06/21/24 10:14: POC Glucose 104 06/21/24 10:24: WBC 8.4, RBC 5.42 H, Hgb 14.8, Hct 46.9, MCV 86.5, MCH 27.3, MCHC 31.6 L, RDW 12.3, Plt Count 311, MPV 9.6, Neut % (Auto) 63.2, Lymph % (Auto) 29.4, [place] % (Auto) 5.4, Eos % (Auto) 1.2, Baso % (Auto) 0.6, Neut # (Auto) 5.3, Lymph # (Auto) 2.5, [place] # (Auto) 0.5, Eos # (Auto) 0.1, Baso # (Auto) 0.1, PT 10.5, INR 0.93, APTT 26.1, Sodium 141, Potassium 4.0, Chloride 107, Carbon Dioxide 29, Anion Gap 9.0, BUN 21 H, Creatinine 1.00, Estimated Creat Clear 50, Estimated GFR 56 L, Est GFR ( Amer) 67, Glucose 110 H, Calcium 9.9, Total Bilirubin 0.4, AST 24, ALT 15, Alkaline Phosphatase 126, Troponin I < 0.01, Total Protein 7.7, Albumin 4.4, Globulin 3.3 H, Albumin/Globulin Ratio 1.3, Triglycerides 106, Cholesterol 254 H, LDL Cholesterol Direct 145.95 H, VLDL Cholesterol 21, HDL Cholesterol 61 H, Cholesterol/HDL Ratio 4.2 H, TSH 8.88 H, Thyroxine (T4) 11.0, Plasma/Serum Alcohol < 10, HCV Ab CHECO w/Rflx PCR Qn Negative, HIV Ag/Ab Combo Qual Negative 06/21/24 11:12: Urine Color Yellow, Urine Appearance Clear, Urine pH 6.0, Ur Specific [place] 1.015, Urine Protein Negative, Urine Glucose (UA) Negative, Urine Ketones Negative, Urine Blood Negative, Urine Nitrate Negative, Urine Bilirubin Negative, Urine Urobilinogen 0.2, Ur Leukocyte Esterase 1+ A, Urine RBC None, Urine WBC 5-10, Ur Squamous Epith Cells 10-20, Urine Mucus Trace, Urine Opiates Screen Negative, Urine Methadone Screen Negative, Ur Barbituates Screen Negative, Ur Phencyclidine Scrn Negative, Ur Amphetamines Screen Negative, U Benzodiazepines Scrn Negative, Urine Cocaine Screen Negative, U Marijuana (THC) Screen Negative 06/21/24 10:24 06/21/24 10:24 Orders (Tests/Meds): ED MEDICATIONS Generic Name Dose Route Start Last Admin Trade Name Freari PRN Reason Stop Dose Admin Aspirin 81 mg 06/22/24 09:00 Aspirin Ec 81mg Tablet PO 07/22/24 08:59 DAILY BACILIO Clopidogrel Bisulfate 75 mg 06/22/24 09:00 Clopidogrel 75mg Tab PO 07/22/24 08:59 DAILY BACILIO Levothyroxine Sodium 50 mcg 06/21/24 12:49 06/21/24 13:13 Levothyroxine 50mcg (0.05mg) Tab PO 07/21/24 12:48 50 mcg DAILYDM BACILIO Administration Miscellaneous 1 each 06/21/24 12:01 Consider Pt For Statin At Discharge-Stroke NOTAPPLIC 07/21/24 12:00 NEEDED PRN Reminder for med @discharge Sodium Chloride 10 ml 06/21/24 10:20 Sodium Chloride 0.9% 10ml Flush Syringe IV 07/21/24 10:19 NEEDED PRN Maintain IV Site Discontinued Medications Generic Name Dose Route Start Last Admin Trade Name Aashish PRN Reason Stop Dose Admin Iopamidol 80 ml 06/21/24 10:37 06/21/24 10:38 Iopamidol-370 (76%);100ml Bottle IV 06/21/24 10:38 80 ml ONCE ONE Administration Sodium Chloride 10 ml 06/21/24 10:37 06/21/24 10:38 Sodium Chloride 0.9% 10ml Syr (Rad Only) IV 06/21/24 10:38 10 ml ONCE ONE Administration Sodium Chloride 50 ml 06/21/24 10:37 06/21/24 10:38 0.9 % Sodium Chloride 50 Ml Vial IV 06/21/24 10:38 50 ml ONCE ONE Administration ORDERS Category Date Time Status CT angio head Stat Cat Scan 06/21/24 10:[address] angio neck Stat Cat Scan 06/21/24 10:[address] head/brain wo con Stat Cat Scan 06/21/24 10:20 Completed XR chest portable Stat Exams 06/21/24 10:20 Completed Activated Partial Thrombo Time Stat Lab 06/21/24 10:24 Completed Complete Blood Count Auto Diff AMLAB Lab 06/22/24 06:00 Ordered Complete Blood Count Auto Diff Stat Lab 06/21/24 10:24 Completed Comprehensive Metabolic Panel AMLAB Lab 06/22/24 06:00 Ordered Comprehensive Metabolic Panel Stat Lab 06/21/24 10:24 Completed Drug Screen,Urine Stat Lab 06/21/24 11:12 Completed Ethyl Alcohol Stat Lab 06/21/24 10:24 Completed HIV Combo Stat Lab 06/21/24 10:24 Completed Hemoglobin A1C Stat Lab 06/21/24 10:04 Completed Hepatitis C Ab Qual. W/ RFX Stat Lab 06/21/24 10:24 Completed Lipid Panel Stat Lab 06/21/24 10:24 Completed Magnesium AMLAB Lab 06/22/24 06:00 Ordered POC Glucose,Bedside Routine Lab 06/21/24 10:14 Completed Prothrombin Time INR Stat Lab 06/21/24 10:24 Completed T4 (Thyroxine) Stat Lab 06/21/24 10:24 Completed TSH [Thyroid Stimulating Hormone] Stat Lab 06/21/24 10:24 Completed Troponin I Q3H Lab 06/21/24 13:30 Received Troponin I Q3H Lab 06/21/24 16:30 Ordered Troponin I Stat Lab 06/21/24 10:24 Completed Urinalysis and Microscopic Stat Lab 06/21/24 11:12 Completed Urine Culture Stat Micro 06/21/24 11:12 Received ECG Request Stat Y 06/21/24 10:20 Ordered ECG Data Tracing #1: I reviewed this ECG and interpreted as documented below: Normal sinus rhythm ventricular of [address] changes concerning for ischemia. Normal intervals ECG initial impression date: 06/21/24 ECG initial impression time: 10:32 Medical Decision Narrative: In summary, this patient is a 63-year-old female presenting to the Emergency Department for evaluation of confusion, left-sided numbness, visual disturbance, headache. Differential diagnoses considered include but are not limited to CVA, intracranial hemorrhage, intracranial mass, hypertensive urgency, hypertensive emergency, urinary tract infection, hypothyroidism, recrudescence of prior stroke. Ruling out the most morbid conditions drove assessment. It should be noted patient's history includes hypertension, hyperlipidemia, extensive cardiovascular history, prior CVA, hypothyroidism which likely are not at goal therapy, as patient has not been taking her medications according to her sister. This complicates all aspects of care by increasing patient's risk for morbidity. I reviewed patient's past medical records and noted prior evaluations by neurology and PCP for left [employer] stroke which was in 2020. On exam, the patient is sitting upright in no acute distress. She ambulated into the emergency department, though with difficulty, seemingly more weak on the left side. She has an NIH of 6 for partial hemianopia (R side), partial facial paralysis, minor expressive aphasia, minor dysarthria, subjective decrease in sensation to the left lower lobe. Workup included lab evaluation to evaluate for infectious, metabolic, cardiac derangement as well as EKG and stroke CT scans. She arrives profoundly hypertensive with systolics in the 240s in the setting of reported medication noncompliance according to her sister. On recheck after letting the patient rest in bed for a minute she was 192/89. Will continue to monitor. Unfortunately, patient presents outside of any window for thrombolytics or thrombectomy given that symptoms started days ago. I independently interpreted CT scan prior to the radiologist read and noted very large area of encephalomalacia consistent with prior stroke, I do not see any large hemorrhage. Please see their read for final interpretation. Labs were obtained that demonstrated reassuring CBC with no significant leukocytosis or anemia, reassuring coags, reassuring chemistry with only very mildly elevated BUN. Urinalysis is not concerning for infection. She does have 1+ leukocyte esterase but is contaminated with 10-20 squamous cells, negative for nitrates. Overall unclear at this time if she has had an acute stroke or if she has recrudescence in the setting of severe hypertension. I feel she would benefit from admission for further evaluation and management of altered mental status and her new neurologic symptoms. I had an interactive discussion with the hospitalist who admitted the patient in stable condition. Critical Care Critical Care Time Critical Care Time: Yes Attestation: On 06/21/24, the high probability of a clinically significant, sudden or life threatening deterioration of the following system(s) required my full and direct attention, intervention and personal management. The time I documented below is in addition to time spent performing reported procedures but includes the following listed in this critical care notation. Total Time Total Critical Care Time: 35
--- NOTE | 2024-06-21 10:20 | CT_ITS ---
FINAL REPORT TECHNIQUE: thin section axial CT with and without IV contrast supplemented with multiplanar 3-D reconstruction of the head. This study was performed with techniques to keep radiation doses as low as reasonably achievable, (ALARA)individualized dose reduction techniques using automated exposure control or adjustment of mA and/or kV according to the patient's size were employed. CLINICAL HISTORY: possible stroke COMPARISON: 10/20/2022 FINDINGS: CTA: The cranial circulation is unremarkable. There is no significant stenosis, aneurysm or occlusion. IMPRESSION: No evidence of large vessel occlusion. Reviewed, Interpreted and Dictated by Partha Rome MD Transcribed by Zabrina Jackson Authenticated and [facility]
--- NOTE | 2024-06-21 10:20 | XR_ITS ---
FINAL REPORT CLINICAL HISTORY: AMS COMPARISON: 11/17/2022 FINDINGS: A single view of the chest was obtained. The heart size is normal. The mediastinum is normal. The lungs are underinflated. There is mild atelectasis at the lung bases. There is no focal infiltrate or edema. There are no pleural effusions. There is no pneumothorax. There is no osseous abnormality. IMPRESSION: Underinflation with mild atelectasis at the lung bases. Reviewed, Interpreted and Dictated by Partha Rome MD Transcribed by Ema Buchanan Authenticated and [facility]
--- NOTE | 2024-06-21 10:20 | CT_ITS ---
FINAL REPORT TECHNIQUE: Axial CT images were performed through the head. Coronal and sagittal reformatted images were submitted. This study was performed with techniques to keep radiation doses as low as reasonably achievable (ALARA). Individualized dose reduction techniques using automated exposure control or adjustment of mA and/or kV according to the patient's size were employed. CLINICAL HISTORY: Possible stroke FINDINGS: CT HEAD/BRAIN W/O CONTRAST There is a large region of encephalomalacia in the left occipital lobe. There is patchy abnormal decreased attenuation throughout the deep white matter. There are multiple old lacunar infarcts in the right thalamus and in the right and left caudate. There is no evidence of acute hemorrhage, mass effect, or edema. The visualized paranasal sinuses are well aerated. IMPRESSION: Extensive changes of chronic microvascular ischemia with an old left occipital infarct. No definite acute abnormality identified. Reviewed, Interpreted and Dictated by Partha Rome MD Transcribed by Ema Buchanan Authenticated and [facility]
--- NOTE | 2024-06-21 10:20 | CT_ITS ---
FINAL REPORT TECHNIQUE: NASCET technique utilized for stenosis evaluation. CLINICAL HISTORY: possible stroke COMPARISON: 10/20/2022 FINDINGS: RIGHT CAROTID: There are bulky calcifications of the carotid bifurcation. Mural thrombus is noted of the right carotid bulb. There is stenosis of the right proximal internal carotid artery measures 50%. LEFT CAROTID: A left vascular stent is present which appears patent. No significant stenosis. VERTEBRALS: The vertebrals are patent. Left vertebral artery is patent. The right vertebral artery is diminutive. No significant stenosis is present. IMPRESSION: 50% stenosis right proximal ICA. Patent stent on the left. Reviewed, Interpreted and Dictated by Partha Rome MD Transcribed by Zabrina Jackson Authenticated and [facility]
[2024-06-21 10:22] LABS: POC Glucose,Bedside 104 (70-110)
[2024-06-21 10:31] LABS: Basophils # 0.1 K/mm3 (0-0.2); Basophils % 0.6 % (0.1-2.0); Eosinophils # 0.1 Kmm3 (0.0-0.4); Eosinophils % 1.2 % (0.1-12.0); Hematocrit 46.9 % (37.0-47.0); Hemoglobin 14.8 g/dL (12.2-16.2); Lymphocytes # 2.5 K/mm3 (0.7-4.5); Lymphocytes % 29.4 % (10-50); Mean Corpuscular HGB Conc 31.6 g/dL (31.8-35.4); Mean Corpuscular Hemoglobin 27.3 pg (27.0-31.2); Mean Corpuscular Volume 86.5 fl (81-99); Mean Platelet Volume 9.6 fl (7.4-10.4); Monocytes # 0.5 K/mm3 (0.1-1.0); Monocytes % 5.4 % (1.7-9.3); Neutrophils # 5.3 K/mm3 (1.8-7.8); Neutrophils % 63.2 % (37.0-80.0); Nucleated Red Blood Cells # 0 10^3/uL; Nucleated Red Blood Cells % 0 %; Platelet Count 311 K/mm3 (142-424); Red Blood Count 5.42 M/mm3 (4.20-5.40); Red Cell Distribution Width 12.3 % (11.5-17.5); White Blood Count 8.4 K/mm3 (4.8-10.8)
--- NOTE | 2024-06-21 10:31 | ECG_ITS ---
APPROVED REPORT Exam: Resting ECG HR:79 bpm ECG Measurements Heart Rate 79 AXES TX 173 P 78 QRSd 97 QRS -8 QT 382 T 43 QTc 417 Conclusion SINUS RHYTHM LEFT ATRIAL ENLARGEMENT [-0.15mV P-WAVE IN V1/V2] POSSIBLE LEFT VENTRICULAR HYPERTROPHY [VOLTAGE CRITERIA PLUS LAE OR QRS WIDENING] No STEMI Electronically signed by : WESTLEY VASQUEZ, 06/21/2024 23:22:16
[2024-06-21] MEDS: SODIUM CHLORIDE 0.9% 10ML SYR (RAD ONLY) 10 ML IV (10:38)
[2024-06-21] MEDS: IOPAMIDOL-370 (76%);100ML BOTTLE 80 ML IV (10:38)
[2024-06-21] MEDS: 0.9 % SODIUM CHLORIDE 50 ML VIAL IV (10:38)
--- NOTE | 2024-06-21 10:38 | PC.NURSE ---
pt to CT
[2024-06-21 10:45] LABS: Activated Partial Thrombo Time 26.1 seconds (22.8-30.6); Alanine Aminotransferase 15 U/L (12-78); Albumin Level 4.4 g/dl (3.5-5.0); Albumin/Globulin Ratio 1.3 (1.1-1.8); Alkaline Phosphatase 126 U/L (38-126); Aspartate Amino Transferase 24 U/L (14-36); Bilirubin,Total 0.4 mg/dl (0.2-1.3); Blood Urea Nitrogen 21 mg/dl (7-17); Calcium 9.9 mg/dl (8.4-10.2); Carbon Dioxide 29 mmol/L (22.0-30.0); Chloride 107 mmol/L (98-107); Chol/HDL Ratio 4.2 (1-3.5); Cholesterol 254 mg/dl (140-200); Creatinine Clearance Estimated 50 mL/min (50-200); Estimated Glomerular Filt Rate 56 ml/min (>60); GFR (African American) 67 ML/MIN (>60); Globulin 3.3 g/dL (1.3-3.2); Glucose 110 mg/dl (74-100); HDL Cholesterol 61 mg/dl (40-60); INR 0.93 (0.9-1.1); Prothrombin Time 10.5 seconds (10.1-12.5); Sodium 141 mmol/L (136-145); Total Protein,Serum 7.7 g/dl (6.3-8.2); Triglycerides 106 mg/dl (30-150); VLDL Cholesterol 21 mg/dL (0-40)
[2024-06-21 10:51] LABS: Ethyl Alcohol < 10 mg/dl (0-10)
[2024-06-21 10:55] LABS: Direct LDL Cholesterol 145.95 mg/dL (100-129)
[2024-06-21 10:59] LABS: Troponin I < 0.01 ng/ml (0.00-0.034)
[2024-06-21 11:15] LABS: Microscopic, Urine URINE MICROSCOPIC (MICROSCOPIC)
[2024-06-21 11:17] LABS: Thyroid Stimulating Hormone 8.88 uIU/mL (0.465-4.68)
[2024-06-21 11:22] LABS: Appearance,Urine CLEAR (Clear); Bilirubin,Urine Negative (Negative); Blood, Urine Negative (Negative); Color,Urine YELLOW (Yellow); Glucose,Urine (UA) Negative (Negative); Ketones,Urine Negative (Negative); Leukocyte Esterase,Urine 1+ (Negative); Nitrate,Urine Negative (Negative); Protein,Urine Negative (Negative); Specific Gravity, Urine 1.015 (1.005-1.030); Urobilinogen,Urine 0.2 EU/dl (0.2)
[2024-06-21 11:35] LABS: Barbiturates Screen,Urine Negative ng/ml (<200); Benzodiazepines Screen,Urine Negative ng/ml (<200)
[2024-06-21 11:36] LABS: Amphetamine/Metha Screen,Urine Negative ng/ml (<1000)
[2024-06-21 11:37] LABS: Cannabinoid Screen,Urine Negative ng/ml (<50); Methadone Screen,Urine Negative ng/ml (<300)
[2024-06-21 11:38] LABS: Cocaine Screen,Urine Negative ng/ml (<300)
[2024-06-21 11:39] LABS: Opiate Screen,Urine Negative ng/ml (<300); Phencyclidine Screen,Urine Negative ng/ml (<25)
[2024-06-21 11:49] LABS: Mucus,Urine Trace /lpf
--- NOTE | 2024-06-21 12:02 | EXP.HP ---
History of Present Illness *Admission Date: 06/21/24 *Reason for visit:: suspected stroke *History of present illness: Ms. Mata is a 63-year-old female who continues to smoke 2 packs a day, history of CVA a year and a half ago, history of hypertension, hyperlipidemia, hypothyroid and short-term memory loss. She reports discontinuing many of her home medications because she did not feel like they were working. She presents today with family due to concern for increased confusion and fatigue over the past 3 to 4 days. Further questioning of family exhibits that symptoms may have been present for up to 10 days. They have previously tried to get her to come to the ER but she did not want to go. As she was more confused today than usual, has developed left-sided numbness in her arm, patient came to the ER for further evaluation. Family states her speech is a little bit more abnormal with word finding difficulty than usual. In the ER, found to have severely elevated blood pressure with systolics of 200. Workup relatively unremarkable from a lab standpoint. CT of head showed significant chronic stroke in the left occipital region with periventricular white matter changes but no acute appearing stroke on CT. Medicine consulted for admission and further management of malignant hypertension and acute on chronic stroke symptoms. Patient stable on room air, denies chest pain. By the time of my evaluation, states she is feeling a little bit better with improvement in the numbness in her arm. Blood pressure improved to systolics of 180s to 190s. States she smokes about 2 packs a day. Knows who she is, where she is, who family is that is in the room with her. Though she is unstable on her feet, she ambulates without difficulty. [facility] Disclaimer: The information contained in this section may have been updated after the patient was seen, as this information can be updated by other users. Medical History Cardiomyopathy History of CVA (cerebrovascular accident) Incontinence Renal artery stenosis Smoker Insomnia Acquired hypothyroidism IFG (impaired fasting glucose) Left leg paresthesias Abnormal head CT MARTINA (obstructive sleep apnea) History of paresthesia RLS (restless legs syndrome) Essential hypertension Carotid artery stenosis Left carotid bruit Cardiac murmur Restless sleeper Family history of early CAD Claudication Dyspnea Edema Ex-smoker Abnormal EKG HLD (hyperlipidemia) HTN (hypertension) Surgical History History of carpal tunnel surgery Hx of tonsillectomy Hx of tubal ligation Hx of cholecystectomy History of thoracotomy History of right hip replacement Family History Mother Hypertension Diabetes Other Hyperlipidemia Social History Smoking Status: Current every day smoker tobacco type: cigarettes packs per day: 2 years smoked: 51 quit status: not considering quitting second hand exposure: No alcohol intake: current substance use type: denies use current occupational status: disabled Travel in the last 8 weeks?: None household members: other housing: house caffeine: Yes Have you lived/traveled outside [place] in past 30 days?: No Contact w/someone who lives/traveled outside US past 30 days?: No Exposure to someone with infectious disease in past 14 days?: No Do you have a fever (greater than 100.4 F or 38 C)?: No Have you tested positive for COVID-19?: No Exposed to someone with COVID-19 in past 14 days?: No Do you have a sore throat?: No Do you have a cough?: No Do you have any weakness?: No Are you experiencing any nausea/vomitting?: No Do you have any diarrhea?: No Are you experiencing any unusual bleeding?: No Do you have any muscle aches/pain?: No Do you have any abdominal pain?: No Are you experiencing loss of taste or smell?: No Other Medical History Have you received the Flu Vaccine for this season: No Have you received the Pneumonia Vaccine: Yes Review of Systems Review of Systems Review of systems (narrative): 14 point review of systems performed, pertinent positives and negatives as per HPI Meds Home Medications and Allergies Home Medications ?Medication ?Instructions ?Recorded ?Confirmed ?Type aspirin 81 mg tablet,delayed 81 mg PO DAILY 30 days #30 tabs 12/01/22 06/21/24 Rx release pramipexole 1 mg tablet 1 mg PO TIDP PRN Restless Leg(S) 05/27/24 06/21/24 Rx #90 tabs mirtazapine 15 mg tablet 15 mg PO HS 06/21/24 06/21/24 History New Prescriptions to Start Prescriptions: Allergies Allergy/AdvReac Type Severity Reaction Status Date / Time Cephalosporins Allergy Unknown Unknown Verified 12/28/23 11:12 allergy reaction Penicillins Allergy Unknown Unknown Verified 12/28/23 11:12 allergy reaction Sutures Allergy Unknown Verified 12/28/23 11:12 allergy reaction Exam Data for Last 24 hours Vital signs and Labs for Last 24 Hours: Temp Pulse Resp BP Pulse Ox O2 Del Method 98.7 F 74 17 185/95 H 97 Room Air 06/21/24 10:16 06/21/24 11:01 06/21/24 11:01 06/21/24 11:01 06/21/24 11:01 06/21/24 11:01 Laboratory Results - last 24 hr 06/21/24 10:14: POC Glucose 104 06/21/24 10:24: WBC 8.4, RBC 5.42 H, Hgb 14.8, Hct 46.9, MCV 86.5, MCH 27.3, MCHC 31.6 L, RDW 12.3, Plt Count 311, MPV 9.6, Neut % (Auto) 63.2, Lymph % (Auto) 29.4, [place] % (Auto) 5.4, Eos % (Auto) 1.2, Baso % (Auto) 0.6, Neut # (Auto) 5.3, Lymph # (Auto) 2.5, [place] # (Auto) 0.5, Eos # (Auto) 0.1, Baso # (Auto) 0.1, PT 10.5, INR 0.93, APTT 26.1, Sodium 141, Potassium 4.0, Chloride 107, Carbon Dioxide 29, Anion Gap 9.0, BUN 21 H, Creatinine 1.00, Estimated Creat Clear 50, Estimated GFR 56 L, Est GFR ( Amer) 67, Glucose 110 H, Calcium 9.9, Total Bilirubin 0.4, AST 24, ALT 15, Alkaline Phosphatase 126, Troponin I < 0.01, Total Protein 7.7, Albumin 4.4, Globulin 3.3 H, Albumin/Globulin Ratio 1.3, Triglycerides 106, Cholesterol 254 H, LDL Cholesterol Direct 145.95 H, VLDL Cholesterol 21, HDL Cholesterol 61 H, Cholesterol/HDL Ratio 4.2 H, TSH 8.88 H, Thyroxine (T4) 11.0, Plasma/Serum Alcohol < 10 06/21/24 11:12: Urine Color Yellow, Urine Appearance Clear, Urine pH 6.0, Ur Specific [place] 1.015, Urine Protein Negative, Urine Glucose (UA) Negative, Urine Ketones Negative, Urine Blood Negative, Urine Nitrate Negative, Urine Bilirubin Negative, Urine Urobilinogen 0.2, Ur Leukocyte Esterase 1+ A, Urine RBC None, Urine WBC 5-10, Ur Squamous Epith Cells 10-20, Urine Mucus Trace, Urine Opiates Screen Negative, Urine Methadone Screen Negative, Ur Barbituates Screen Negative, Ur Phencyclidine Scrn Negative, Ur Amphetamines Screen Negative, U Benzodiazepines Scrn Negative, Urine Cocaine Screen Negative, U Marijuana (THC) Screen Negative I & O for Last 24 hours: Intake & Output 06/18/24 06/19/24 06/20/24 06/21/24 23:59 23:59 23:59 23:59 Weight 56.699 kg Constitutional Constitutional: no acute distress, average body habitus, chronically ill appearing and cooperative *Routine HEENT Exam Head: Present normocephalic Eye: Present EOMI and PERRL ENT: Present mucous membranes moist *Routine Neck Exam Neck: Present supple; Absent lymphadenopathy Routine Chest/Breast/Axilla Exam Chest wall: Absent tenderness *Routine Respiratory Exam Respiratory: Present CTA bilaterally; Absent rhonchi, wheezes or crackles *Routine Cardiovascular Exam Cardiovascular: Present RRR *Routine Abdominal Exam Abdominal: Present soft and normoactive bowel sounds; Absent tenderness *Routine Rectal Exam Rectal:: deferred *Routine Genitalia Exam Genitalia:: deferred *Routine Extremities Exam Extremities: Absent cyanosis, clubbing or edema *Routine Skin Exam Skin: Present warm; Absent rash *Routine Neurological Exam Neurological: Present alert, oriented X3 and moving all extremities; Absent altered mental status Comments: Oriented to family at bedside, knows who she is and where she is. Slight asymmetry to face, right sided hemianopsia Assessment and Plan *Assessment and plan (1) CVA (cerebral vascular accident): Status: Acute Category: Medical Code(s): I63.9 - Cerebral infarction, unspecified (2) Malignant hypertension: Status: Acute Category: Medical Code(s): I10 - Essential (primary) hypertension (3) Occipital stroke: Status: Acute Category: Medical Code(s): I63.9 - Cerebral infarction, unspecified (4) Major depression, chronic: Status: Chronic Category: Medical Code(s): F32.9 - Major depressive disorder, single episode, unspecified (5) Lacunar cerebrovascular accident (CVA): Status: Chronic Category: Medical Code(s): I63.81 - Other cerebral infarction due to occlusion or stenosis of small artery (6) Smoker: Status: Chronic Category: Social Hx Code(s): F17.200 - Nicotine dependence, unspecified, uncomplicated (7) Acquired hypothyroidism: Status: Chronic Category: Medical Code(s): E03.9 - Hypothyroidism, unspecified (8) Hypertension: Status: Chronic Qualifiers: Hypertension type: primary hypertension Qualified Code(s): I10 - Essential (primary) hypertension Category: Medical Code(s): I10 - Essential (primary) hypertension (9) HLD (hyperlipidemia): Status: Chronic Qualifiers: Hyperlipidemia type: mixed hyperlipidemia Qualified Code(s): E78.2 - Mixed hyperlipidemia Category: Medical Code(s): E78.5 - Hyperlipidemia, unspecified (10) Restless leg syndrome: Status: Acute Category: Medical Code(s): G25.81 - Restless legs syndrome Plan 63-year-old female with history of occipital stroke who presented with increased weakness and confusion. Concern for acute on chronic stroke. Workup in the ER was CT with no acute findings. Found to have malignant hypertension. Discussed case with ER physician, request admission for management of blood pressure and further workup of strokelike symptoms. I agreed to admit for further care. Patient states she stopped a lot of her own medications including her blood pressure medications because she did not think that they were working. States she continues to smoke. Was recently started on mirtazapine for sleep within the past 2 to 3 weeks. States she is out of this medication even though she should have at least a week or more left of it per review of her fill history. Concern for symptoms having a component of medication side effect. Problems addressed as follows: Chronic occipital stroke Strokelike symptoms, acute - CT reviewed showing chronic left occipital stroke. No acute findings. Significant white matter periventricular lesions. -Blood pressure severely elevated. -Discussed pros and cons of MRI. As it would not change our management with treatment of goal-directed therapy, will defer MRI at this time. Reevaluate if symptoms worsen. -Initiate aspirin 81 mg daily, Plavix 75 mg daily, statin with Lipitor 40 mg daily. As symptoms have been present for several days, concern for hypertension is a component of her neurologic changes. Will treat malignant hypertension over the next 24 hours - PT and OT evaluated, stable to discharge home. At baseline function CKD 3 - White count normal at 8.4, hemoglobin 14.8, kidney function normal with BUN 21, creatinine 1.0 consistent with CKD 3 with GFR 56. Potassium normal at 4.0, sodium 141. A1c 5.9. - Repeat CBC, CMP, magnesium ordered for the morning Hypertension, malignant Hyperlipidemia - Has previously been on metoprolol and lisinopril. Not taking her statin at this time. Resume Lipitor 40 mg nightly -LDL elevated at 145 -Will administer 5 mg lisinopril and monitor for response. Initiate 10 mg daily in the morning Hypothyroid: Not on any medication at this time. TSH 8.8, initiate levothyroxine 50 mcg daily Continue medical chronic conditions as follows: -Pramipexole 1 mg 3 times daily as needed for restless leg Tobacco use disorder: Smokes 2 packs a day. Nicotine patch provided if needed. Patient interested in trying to quit. Full code Cardiac diet
[2024-06-21 12:08] LABS: HIV Combo NEGATIVE (Negative)
[2024-06-21 12:15] LABS: Hepatitis C Ab Qual. W/ RFX NEGATIVE (Negative)
--- NOTE | 2024-06-21 12:52 | PC.NURSE ---
arrived by w/c from ED
[2024-06-21 12:53] LABS: Hemoglobin A1C 5.9 % (4.0-6.0)
[2024-06-21] MEDS: LEVOTHYROXINE 50MCG (0.05MG) TAB 50 MCG PO (13:13)
[2024-06-21 14:32] LABS: Troponin I < 0.01 ng/ml (0.00-0.034)
--- NOTE | 2024-06-21 15:44 | PC.NURSE ---
patient is a/ox4. she has ambulated in room independently. family at bedside. no c/o pain. patient was able to take PO meds and tolerate PO fluids. no c/o pain. patient stated she has right sided blurry vision that comes and goes. she stated this has been going on for a few weeks. no complaints at this time. call light within reach
[2024-06-21] MEDS: LISINOPRIL 5MG TABLET 5 MG PO (16:14)
--- NOTE | 2024-06-21 16:58 | HMH.PTEV ---
Physical Therapy Evaluation Rehab PT IP Evaluation Start: 06/21/24 12:01 Freq: ONCE Status: Active Protocol: Document 06/21/24 14:40 JAYESH (Rec: 06/21/24 16:58 PHOMINDI [id number]) Subjective/History History History This patient is a 63-year-old female with a history of prior occipital CVA with minor residual left lower extremity numbness, visual change, and short term memory issues, tobacco abuse, hypertension, hyperlipidemia, CAD, and extensive cardiovascular disease presenting to the emergency department for evaluation with concern for possible stroke. According to the sister, the patient has been acting abnormally for several days now, maybe up to 10 days. She has an NIH of 6 for partial hemianopia (R side ), partial facial paralysis, minor expressive aphasia, minor dysarthria, subjective decrease in sensation to the left lower lobe. She arrives profoundly hypertensive with systolics in the 240s in the setting of reported medication noncompliance according to her sister. Pt currently lives at home with her but is alone much of the time . She is independent with all mobility at baseline and does not use an AD. Subjective Subjective Pt presents supine in bed with 2 family members in the room. She is alert and oriented, but required some time for word finding. Pt is willing to participate with PT this afternoon. Pt moved to bedside chair to eat her lunch with call light in reach. [facility] How much help from another person do you currently need... Turning from your back to your side None while in a flat bed without using bedrails? Moving from lying on back to sitting on None the side of a flat bed without using bedrails? Moving to and from a bed to a chair ( None including a wheelchair)? Standing up from a chair using your arms None ? (e.g., wheelchair, bedside chair) Walking in hospital room? A little Climbing 3-5 steps with a railing? A little Mobility Score [address] [facility] Mobility Calculator Mobility 7 Walk 25 feet or more Rehab PT IP Eval Objective Appearance Patient Behavior Appropriate,Cooperative Patient Orientation Person,Place,Time Difficulty following instructions none Speech Pattern Clear,Delayed,Difficulty Finding Words Ambulation Patient Able to Ambulate Yes Ambulation Observation IP General Gait Pattern Observation Shuffling Step Ambulation Distance (feet) 10 Ambulation Ability Contact Guard/Hand Hold Balance Ability to Arise Able, w/o using arms Sitting Balance Steady, safe Standing Balance Narrow stance w/o support Dynamic Sitting Balance Ability Normal Dynamic Standing Balance Ability Normal Transfers Bed Transfer Ability Independent Chair Transfer Ability Supervision/Stand by Sit to Stand Bed Transfer Ability Supervision/Stand by Sit to Stand Chair Transfer Ability Supervision/Stand by MMT RUE PT MMT ABN Abnormal MMT Grade 4-/5 shoulder elevation RLE PT MMT ABN Abnormal MMT Grade 4-/5 hip flexion, knee extension, knee flexion, 4/5 DF LUE PT MMT ABN Abnormal MMT Grade 4/5 shoulder elevation LLE PT MMT ABN Abnormal MMT Grade 4/5 hip flexion, knee extension, knee flexion, DF Rehab PT IP prob,goals,plan Problems Date of Evaluation: 06/21/24 PT IP Problems Bed Mobility,Transfers,Gait, Balance Rehab Potential Rehab Potential Good Plan PT Intervention Plan Bed Mobility,Transfers,Gait, Balance,Self care,Therapeutic Exercise PT Plan Frequency Daily Duration LOS Discharge Goals Bed Transfer Ability Independent Sit to Stand Chair Transfer Ability Independent Ambulation Distance (feet) 50 Discharge Plan PT Discharge Plan Patient is currently most appropriate to return home once medically stable for d/c. Home health therapy is recommended to further increase LE and UE strength and other residual effects from prior CVAs. Skilled acute therapy is currently recommended to improve LE and UE strength to return to PLOF with all ADLs and ambulation. Eval Complexity Eval Charge Codes 27194 - High Complexity PHYSICIAN CERTIFICATION: I certify the specified therapy services for [place] Mata are required, authorized, and reviewed every 30 days.
[2024-06-21 17:10] LABS: Troponin I < 0.01 ng/ml (0.00-0.034)
[2024-06-21] MEDS: PRAMIPEXOLE 1MG TAB 1 MG PO (18:11)
[2024-06-21] MEDS: ATORVASTATIN 40MG TABLET 40 MG PO (20:53)
[2024-06-22] VITALS: BP 134/74; PULSE 75; PULSE 77; RESP 19; TEMP 36.7; O2SAT 96
--- NOTE | 2024-06-22 03:12 | PC.NURSE ---
Pt has had some intermittent confusion tonight. She ambulated in the hallway with nurse twice this shift. New IV inserted in RFA as the other was found in the bed after returning from ambulating with the patient. She is currently resting in bed with eyes closed. Respirations even and unlabored. Bd is low, locked, and call light is in reach.
[2024-06-22 04:00] VITALS: BP 153/86; PULSE 60; PULSE 68; RESP 17; TEMP 36.8; O2SAT 94; BMI 23.1
[2024-06-22 06:17] LABS: Basophils # 0.1 K/mm3 (0-0.2); Basophils % 0.8 % (0.1-2.0); Eosinophils # 0.2 Kmm3 (0.0-0.4); Eosinophils % 2.7 % (0.1-12.0); Hemoglobin 13.4 g/dL (12.2-16.2); Lymphocytes # 3.1 K/mm3 (0.7-4.5); Lymphocytes % 43.1 % (10-50); Mean Corpuscular HGB Conc 31.2 g/dL (31.8-35.4); Mean Corpuscular Hemoglobin 27.3 pg (27.0-31.2); Mean Corpuscular Volume 87.6 fl (81-99); Monocytes # 0.5 K/mm3 (0.1-1.0); Monocytes % 7.6 % (1.7-9.3); Neutrophils # 3.2 K/mm3 (1.8-7.8); Neutrophils % 45.5 % (37.0-80.0); Nucleated Red Blood Cells # 0 10^3/uL; Nucleated Red Blood Cells % 0 %; Platelet Count 296 K/mm3 (142-424); Red Blood Count 4.91 M/mm3 (4.20-5.40); Red Cell Distribution Width 12.5 % (11.5-17.5); Red Cell Distribution Width-SD 39.8 fL; White Blood Count 7.1 K/mm3 (4.8-10.8)
[2024-06-22 06:24] LABS: Chloride 107 mmol/L (98-107); Potassium 4.2 mmoL/L (3.5-5.1); Sodium 138 mmol/L (136-145)
[2024-06-22 06:27] LABS: Alanine Aminotransferase 11 U/L (12-78); Albumin/Globulin Ratio 1.5 (1.1-1.8); Alkaline Phosphatase 99 U/L (38-126); Anion Gap 6.2 mEq/L (5-15); Aspartate Amino Transferase 19 U/L (14-36); Bilirubin,Total 0.4 mg/dl (0.2-1.3); Blood Urea Nitrogen 15 mg/dl (7-17); Calcium 9.7 mg/dl (8.4-10.2); Carbon Dioxide 29 mmol/L (22.0-30.0); Creatinine Clearance Estimated 44 mL/min (50-200); Estimated Glomerular Filt Rate 45 ml/min (>60); GFR (African American) 55 ML/MIN (>60); Globulin 2.7 g/dL (1.3-3.2); Glucose 101 mg/dl (74-100); Magnesium 2.2 mg/dl (1.6-2.3); Total Protein,Serum 6.7 g/dl (6.3-8.2)
[2024-06-22] MEDS: LEVOTHYROXINE 50MCG (0.05MG) TAB 50 MCG PO (06:34)
[2024-06-22 08:00] VITALS: BP 142/80; PULSE 70; PULSE 75; RESP 16; TEMP 36.6; O2SAT 96
--- NOTE | 2024-06-22 08:53 | P.DS_ITS ---
General Admission date:: 06/21/24 Discharge date: 06/22/24 HPI HPI HPI: Ms. Mata is a 63-year-old female who continues to smoke 2 packs a day, history of CVA a year and a half ago, history of hypertension, hyperlipidemia, hypothyroid and short-term memory loss. She reports discontinuing many of her home medications because she did not feel like they were working. She presents today with family due to concern for increased confusion and fatigue over the past 3 to 4 days. Further questioning of family exhibits that symptoms may have been present for up to 10 days. They have previously tried to get her to come to the ER but she did not want to go. As she was more confused today than usual, has developed left-sided numbness in her arm, patient came to the ER for further evaluation. Family states her speech is a little bit more abnormal with word finding difficulty than usual. In the ER, found to have severely elevated blood pressure with systolics of 200. Workup relatively unremarkable from a lab standpoint. CT of head showed significant chronic stroke in the left occipital region with periventricular white matter changes but no acute appearing stroke on CT. Medicine consulted for admission and further management of malignant hypertension and acute on chronic stroke symptoms. Patient stable on room air, denies chest pain. By the time of my evaluation, states she is feeling a little bit better with improvement in the numbness in her arm. Blood pressure improved to systolics of 180s to 190s. States she smokes about 2 packs a day. Knows who she is, where she is, who family is that is in the room with her. Though she is unstable on her feet, she ambulates without difficulty. Hospital Course Hospital Course Hospital Course: 63-year-old female with history of occipital stroke who presented with increased weakness and confusion. Concern for acute on chronic stroke. Workup in the ER was CT with no acute findings. Found to have malignant hypertension. Discussed case with ER physician, request admission for management of blood pressure and further workup of strokelike symptoms. I agreed to admit for further care. Patient states she stopped a lot of her own medications including her blood pressure medications because she did not think that they were working. States she continues to smoke. Was recently started on mirtazapine for sleep within the past 2 to 3 weeks. States she is out of this medication even though she should have at least a week or more left of it per review of her fill history. Concern for symptoms having a component of medication side effect. Did well overnight. At baseline level of function. Improvement in mentation and orientation. Back to baseline. Would benefit from home health PT after evaluation by therapy. Strongly encourage compliance with medications due to admitted noncompliance. Problems addressed as follows: Chronic occipital stroke Strokelike symptoms, acute - CT reviewed showing chronic left occipital stroke. No acute findings. Significant white matter periventricular lesions. Blood pressure severely elevated. Discussed pros and cons of MRI. As it would not change our management with treatment of goal-directed therapy, will defer MRI at this time. Symptoms improved with improvement of blood pressure and holding sleep medications. Initiated on aspirin 81 mg daily, Plavix 75 mg daily, statin with Lipitor 40 mg daily. As symptoms have been present for several days, concern for hypertension is a component of her neurologic changes. Resume blood pressure regimen to improve hypertension. Patient at baseline function on morning of discharge. Therapy evaluated, recommended home health. Stable discharge with family. Order sent for home health PT, OT. CKD 3 - On admission, White count normal at 8.4, hemoglobin 14.8, kidney function normal with BUN 21, creatinine 1.0 consistent with CKD 3 with GFR 56. Potassium normal at 4.0, sodium 141. A1c 5.9. Kidney function stable Hypertension, malignant Hyperlipidemia - Has previously been on metoprolol and lisinopril. Not taking her statin at this time. Resume Lipitor 40 mg nightly. LDL elevated at 145, goal less than 55. Initiated on lisinopril for blood pressure. Continue 10 mg lisinopril daily. Blood pressure improved to 136/79 at time of discharge. Hypothyroid: Not on any medication at this time. TSH 8.8, initiated levothyroxine 50 mcg daily Pramipexole 1 mg 3 times daily as needed for restless leg Tobacco use disorder: Smokes 2 packs a day. Nicotine patch offered during admission. Strongly encouraged smoking cessation. High risk for recurrent stroke. Exam Data for Last 24 hours Vital signs and Labs for Last 24 Hours: Temp Pulse Resp BP Pulse Ox O2 Del Method 98.2 F 70 17 153/86 H 94 L Room Air 06/22/24 04:00 06/22/24 08:00 06/22/24 04:00 06/22/24 04:06/22/24 04:00 06/22/24 06:57 Laboratory Results - last 24 hr 06/21/24 10:04: Hemoglobin A1c 5.9 06/21/24 10:14: POC Glucose 104 06/21/24 10:24: WBC 8.4, RBC 5.42 H, Hgb 14.8, Hct 46.9, MCV 86.5, MCH 27.3, MCHC 31.6 L, RDW 12.3, Plt Count 311, MPV 9.6, Neut % (Auto) 63.2, Lymph % (Auto) 29.4, [place] % (Auto) 5.4, Eos % (Auto) 1.2, Baso % (Auto) 0.6, Neut # (Auto) 5.3, Lymph # (Auto) 2.5, [place] # (Auto) 0.5, Eos # (Auto) 0.1, Baso # (Auto) 0.1, PT 10.5, INR 0.93, APTT 26.1, Sodium 141, Potassium 4.0, Chloride 107, Carbon Dioxide 29, Anion Gap 9.0, BUN 21 H, Creatinine 1.00, Estimated Creat Clear 50, Estimated GFR 56 L, Est GFR ( Amer) 67, Glucose 110 H, Calcium 9.9, Total Bilirubin 0.4, AST 24, ALT 15, Alkaline Phosphatase 126, Troponin I < 0.01, Total Protein 7.7, Albumin 4.4, Globulin 3.3 H, Albumin/Globulin Ratio 1.3, Triglycerides 106, Cholesterol 254 H, LDL Cholesterol Direct 145.95 H, VLDL Cholesterol 21, HDL Cholesterol 61 H, Cholesterol/HDL Ratio 4.2 H, TSH 8.88 H, Thyroxine (T4) 11.0, Plasma/Serum Alcohol < 10, HCV Ab CHECO w/Rflx PCR Qn Negative, HIV Ag/Ab Combo Qual Negative 06/21/24 11:12: Urine Color Yellow, Urine Appearance Clear, Urine pH 6.0, Ur Specific [place] 1.015, Urine Protein Negative, Urine Glucose (UA) Negative, Urine Ketones Negative, Urine Blood Negative, Urine Nitrate Negative, Urine Bilirubin Negative, Urine Urobilinogen 0.2, Ur Leukocyte Esterase 1+ A, Urine RBC None, Urine WBC 5-10, Ur Squamous Epith Cells 10-20, Urine Mucus Trace, Urine Opiates Screen Negative, Urine Methadone Screen Negative, Ur Barbituates Screen Negative, Ur Phencyclidine Scrn Negative, Ur Amphetamines Screen Negative, U Benzodiazepines Scrn Negative, Urine Cocaine Screen Negative, U Marijuana (THC) Screen Negative 06/21/24 13:35: Troponin I < 0.01 06/21/24 16:27: Troponin I < 0.01 06/22/24 05:18: WBC 7.1, RBC 4.91, Hgb 13.4, Hct 43.0, MCV 87.6, MCH 27.3, MCHC 31.2 L, RDW 12.5, Plt Count 296, MPV 10.0, Neut % (Auto) 45.5, Lymph % (Auto) 43.1, [place] % (Auto) 7.6, Eos % (Auto) 2.7, Baso % (Auto) 0.8, Neut # (Auto) 3.2, Lymph # (Auto) 3.1, [place] # (Auto) 0.5, Eos # (Auto) 0.2, Baso # (Auto) 0.1, Sodium 138, Potassium 4.2, Chloride 107, Carbon Dioxide 29, Anion Gap 6.2, BUN 15 D, Creatinine 1.20 H, Estimated Creat Clear 44, Estimated GFR 45 L, Est GFR ( Amer) 55 L, Glucose 101 H, Calcium 9.7, Magnesium 2.2, Total Bilirubin 0.4, AST 19, ALT 11 L D, Alkaline Phosphatase 99, Total Protein 6.7, Albumin 4.0, Globulin 2.7, Albumin/Globulin Ratio 1.5 I & O for Last 24 hours: Intake & Output 06/19/24 06/20/24 06/21/24 06/22/24 23:59 23:59 23:59 23:59 Intake Total 600 / 600 Output Total 0 / 0 0 / 0 Balance 600 / 600 0 / 0 Weight 59.052 kg 59.33 kg Constitutional Constitutional: no acute distress, thin, chronically ill appearing and cooperative *Routine HEENT Exam Head: Present normocephalic Eye: Present EOMI and PERRL ENT: Present mucous membranes moist *Routine Neck Exam Neck: Present supple; Absent lymphadenopathy *Routine Respiratory Exam Respiratory: Present CTA bilaterally; Absent rhonchi, wheezes or crackles *Routine Cardiovascular Exam Cardiovascular: Present RRR *Routine Abdominal Exam Abdominal: Present soft and normoactive bowel sounds; Absent tenderness *Routine Rectal Exam Patient deferred: visual exam *Routine Exam Patient deferred: external exam *Routine Extremities Exam Extremities: Absent cyanosis, clubbing or edema *Routine Skin Exam Skin: Present warm; Absent rash *Routine Neurological Exam Neurological: Present alert, oriented X3 and moving all extremities; Absent sensory deficit, motor deficit or altered mental status Comments: vision decreased, effecting right visual field. Routine Psychiatric Exam Psychiatric: Present normal affect Results Data Completed and Pending Labs on day of discharge: Labs from last 24 hours 06/22/24 06/21/24 06/21/24 05:18 16:27 13:35 WBC 7.1 RBC 4.91 Hgb 13.4 Hct 43.0 MCV 87.6 MCH 27.3 MCHC 31.2 L RDW 12.5 Plt Count 296 MPV 10.0 Neut % (Auto) 45.5 Lymph % (Auto) 43.1 [place] % (Auto) 7.6 Eos % (Auto) 2.7 Baso % (Auto) 0.8 Neut # (Auto) 3.2 Lymph # (Auto) 3.1 [place] # (Auto) 0.5 Eos # (Auto) 0.2 Baso # (Auto) 0.1 PT INR APTT Sodium 138 Potassium 4.2 Chloride 107 Carbon Dioxide 29 Anion Gap 6.2 BUN 15 D Creatinine 1.20 H Estimated Creat Clear 44 Estimated GFR 45 L Est GFR ( Amer) 55 L Glucose 101 H POC Glucose Hemoglobin A1c Calcium 9.7 Magnesium 2.2 Total Bilirubin 0.4 AST 19 ALT 11 L D Alkaline Phosphatase 99 Troponin I < 0.01 < 0.01 Total Protein 6.7 Albumin 4.0 Globulin 2.7 Albumin/Globulin Ratio 1.5 Triglycerides Cholesterol LDL Cholesterol Direct VLDL Cholesterol HDL Cholesterol Cholesterol/HDL Ratio TSH Thyroxine (T4) Urine Color Urine Appearance Urine pH Ur Specific [place] Urine Protein Urine Glucose (UA) Urine Ketones Urine Blood Urine Nitrate Urine Bilirubin Urine Urobilinogen Ur Leukocyte Esterase Urine RBC Urine WBC Ur Squamous Epith Cells Urine Mucus Urine Opiates Screen Urine Methadone Screen Ur Barbituates Screen Ur Phencyclidine Scrn Ur Amphetamines Screen U Benzodiazepines Scrn Urine Cocaine Screen U Marijuana (THC) Screen Plasma/Serum Alcohol HCV Ab CHECO w/Rflx PCR Qn HIV Ag/Ab Combo Qual 06/21/24 06/21/24 06/21/24 11:12 10:24 10:14 WBC 8.4 RBC 5.42 H Hgb 14.8 Hct 46.9 MCV 86.5 MCH 27.3 MCHC 31.6 L RDW 12.3 Plt Count 311 MPV 9.6 Neut % (Auto) 63.2 Lymph % (Auto) 29.4 [place] % (Auto) 5.4 Eos % (Auto) 1.2 Baso % (Auto) 0.6 Neut # (Auto) 5.3 Lymph # (Auto) 2.5 [place] # (Auto) 0.5 Eos # (Auto) 0.1 Baso # (Auto) 0.1 PT 10.5 INR 0.93 APTT 26.1 Sodium 141 Potassium 4.0 Chloride 107 Carbon Dioxide 29 Anion Gap 9.0 BUN 21 H Creatinine 1.00 Estimated Creat Clear 50 Estimated GFR 56 L Est GFR ( Amer) 67 Glucose 110 H POC Glucose 104 Hemoglobin A1c Calcium 9.9 Magnesium Total Bilirubin 0.4 AST 24 ALT 15 Alkaline Phosphatase 126 Troponin I < 0.01 Total Protein 7.7 Albumin 4.4 Globulin 3.3 H Albumin/Globulin Ratio 1.3 Triglycerides 106 Cholesterol 254 H LDL Cholesterol Direct 145.95 H VLDL Cholesterol 21 HDL Cholesterol 61 H Cholesterol/HDL Ratio 4.2 H TSH 8.88 H Thyroxine (T4) 11.0 Urine Color Yellow Urine Appearance Clear Urine pH 6.0 Ur Specific [place] 1.015 Urine Protein Negative Urine Glucose (UA) Negative Urine Ketones Negative Urine Blood Negative Urine Nitrate Negative Urine Bilirubin Negative Urine Urobilinogen 0.2 Ur Leukocyte Esterase 1+ A Urine RBC None Urine WBC 5-10 Ur Squamous Epith Cells 10-20 Urine Mucus Trace Urine Opiates Screen Negative Urine Methadone Screen Negative Ur Barbituates Screen Negative Ur Phencyclidine Scrn Negative Ur Amphetamines Screen Negative U Benzodiazepines Scrn Negative Urine Cocaine Screen Negative U Marijuana (THC) Screen Negative Plasma/Serum Alcohol < 10 HCV Ab CHECO w/Rflx PCR Qn Negative HIV Ag/Ab Combo Qual Negative 06/21/24 10:04 WBC RBC Hgb Hct MCV MCH MCHC RDW Plt Count MPV Neut % (Auto) Lymph % (Auto) [place] % (Auto) Eos % (Auto) Baso % (Auto) Neut # (Auto) Lymph # (Auto) [place] # (Auto) Eos # (Auto) Baso # (Auto) PT INR APTT Sodium Potassium Chloride Carbon Dioxide Anion Gap BUN Creatinine Estimated Creat Clear Estimated GFR Est GFR ( Amer) Glucose POC Glucose Hemoglobin A1c 5.9 Calcium Magnesium Total Bilirubin AST ALT Alkaline Phosphatase Troponin I Total Protein Albumin Globulin Albumin/Globulin Ratio Triglycerides Cholesterol LDL Cholesterol Direct VLDL Cholesterol HDL Cholesterol Cholesterol/HDL Ratio TSH Thyroxine (T4) Urine Color Urine Appearance Urine pH Ur Specific [place] Urine Protein Urine Glucose (UA) Urine Ketones Urine Blood Urine Nitrate Urine Bilirubin Urine Urobilinogen Ur Leukocyte Esterase Urine RBC Urine WBC Ur Squamous Epith Cells Urine Mucus Urine Opiates Screen Urine Methadone Screen Ur Barbituates Screen Ur Phencyclidine Scrn Ur Amphetamines Screen U Benzodiazepines Scrn Urine Cocaine Screen U Marijuana (THC) Screen Plasma/Serum Alcohol HCV Ab CHECO w/Rflx PCR Qn HIV Ag/Ab Combo Qual DS: Diagnosis Discharge Diagnosis (1) CVA (cerebral vascular accident): Status: Acute Code(s): I63.9 - Cerebral infarction, unspecified (2) Malignant hypertension: Status: Acute Code(s): I10 - Essential (primary) hypertension (3) Occipital stroke: Status: Acute Code(s): I63.9 - Cerebral infarction, unspecified (4) Major depression, chronic: Status: Chronic Code(s): F32.9 - Major depressive disorder, single episode, unspecified (5) Lacunar cerebrovascular accident (CVA): Status: Chronic Code(s): I63.81 - Other cerebral infarction due to occlusion or stenosis of small artery (6) Smoker: Status: Chronic Code(s): F17.200 - Nicotine dependence, unspecified, uncomplicated (7) Acquired hypothyroidism: Status: Chronic Code(s): E03.9 - Hypothyroidism, unspecified (8) Hypertension: Status: Chronic Code(s): I10 - Essential (primary) hypertension Qualifiers: Hypertension type: primary hypertension Qualified Code(s): I10 - Essential (primary) hypertension (9) HLD (hyperlipidemia): Status: Chronic Code(s): E78.5 - Hyperlipidemia, unspecified Qualifiers: Hyperlipidemia type: mixed hyperlipidemia Qualified Code(s): E78.2 - Mixed hyperlipidemia (10) Restless leg syndrome: Status: Acute Code(s): G25.81 - Restless legs syndrome Meds Home Medications and Allergies Home Medications ?Medication ?Instructions ?Recorded ?Confirmed ?Type aspirin 81 mg tablet,delayed 81 mg PO DAILY 30 days #30 tabs 12/01/22 06/21/24 Rx release pramipexole 1 mg tablet 1 mg PO TIDP PRN Restless Leg(S) 05/27/24 06/21/24 Rx #90 tabs atorvastatin 40 mg tablet 40 mg PO HS 30 days #30 tabs 06/22/24 Rx clopidogrel 75 mg tablet 75 mg PO DAILY 20 days #20 tabs 06/22/24 Rx levothyroxine 50 mcg tablet 50 mcg PO DAILYDM 30 days #30 tabs 06/22/24 Rx (Synthroid) lisinopril 10 mg tablet 10 mg PO DAILY 30 days #30 tabs 06/22/24 Rx New Prescriptions to Start Prescriptions: Jared Rivera clopidogrel Jared Castellanos levothyroxine [Synthroid] Jared Castellanos lisinopril Jared Castellanos Allergies Allergy/AdvReac Type Severity Reaction Status Date / Time Cephalosporins Allergy Unknown Unknown Verified 12/28/23 11:12 allergy reaction Penicillins Allergy Unknown Unknown Verified 12/28/23 11:12 allergy reaction Sutures Allergy Unknown Verified 12/28/23 11:12 allergy reaction Discharge Plan Disposition Patient Disposition: Home Health Service Condition: Fair Discharge Order Discharge Orders: Discharge Order (Routine); Ordered 06/22/24 Ordered By: Jared Castellanos Follow up Plan Follow up with: Yonny Scott MD [Primary Care Provider] - 06/28/24 2:45 pm (appointment in [place]) Prescriptions/Medication Reconciliation: New atorvastatin 40 mg Tablet 40 mg PO HS 30 Days Qty: 30 0RF clopidogrel 75 mg Tablet 75 mg PO DAILY 20 Days Qty: 20 0RF levothyroxine [Synthroid] 50 mcg Tablet 50 mcg PO DAILYDM 30 Days Qty: 30 0RF lisinopril 10 mg Tablet 10 mg PO DAILY 30 Days Qty: 30 0RF Continued pramipexole 1 mg tablet 1 mg PO TIDP PRN (Reason: Restless Leg(S)) Qty: 90 1RF aspirin 81 mg Tablet,Delayed Release (Dr/Ec) 81 mg PO DAILY 30 Days Qty: 30 0RF Discontinued mirtazapine 15 mg tablet 15 mg PO HS Patient Comments: TAKE 1 TABLET BY MOUTH AT BEDTIME Problem Reconciliation Problems Reviewed?: Yes Patient Discharge Instructions ACTIVITY: Continue current activity DIET: continue same diet and low fat, low cholesterol Additional Instructions: Strongly encouraged smoking cessation. Currently smoking 2 packs a day. Patient declined patches at discharge. Patient Instructions: DI for Stroke-Ischemic, DI for High Blood Pressure, DI for Altered Mental Status Print Language: Kiswahili Providers Primary Care Provider: Yonny Scott Provider: Jared Castellanos Attending Provider: Jared Castellanos
--- NOTE | 2024-06-22 09:54 | HMH.OTEV ---
OT Inpatient Evaluation Rehab OT IP Evaluation Start: 06/21/24 12:01 Freq: ONCE Status: Active Protocol: Document 06/22/24 09:48 [facility] (Rec: 06/22/24 09:53 [facility] [id number]) Rehab OT IP Assessment Subjective History Pt oriented to self on arrival . Pt unable to identify her birthday, place, or year. Pt admitted on 06/21/24 due to possible CVA and AMS. History and physical: Ms. Mata is a 63-year-old female who continues to smoke 2 packs a day, history of CVA a year and a half ago, history of hypertension, hyperlipidemia, hypothyroid and short-term memory loss. She reports discontinuing many of her home medications because she did not feel like they were working. She presents today with family due to concern for increased confusion and fatigue over the past 3 to 4 days. Further questioning of family exhibits that symptoms may have been present for up to 10 days. They have previously tried to get her to come to the ER but she did not want to go. As she was more confused today than usual, has developed left -sided numbness in her arm, patient came to the ER for further evaluation. Family states her speech is a little bit more abnormal with word finding difficulty than usual. In the ER, found to have severely elevated blood pressure with systolics of 200 . Workup relatively unremarkable from a lab standpoint. CT of head showed significant chronic stroke in the left occipital region with periventricular white matter changes but no acute appearing stroke on CT. Medicine consulted for admission and further management of malignant hypertension and acute on chronic stroke symptoms. Subjective Upon observation, pt has a slight droop in face on right side. She also has some weakness on RUE when completing MMT. Pt reports prior to being in the hospital she lived at home with her . Pt claims she is normally independent with all ADLs and IADLs. Pt does not require any type of AE during functional transfers. Pt no longer drives. Pt does appears to have slight difficulty with processing one step directions and answering questions. Objective Patient Orientation Person Right Upper Extremity Gross ROM Min Limitation <25% Left Upper Extremity Gross ROM WFL Shoulder ROM Limitations Muscle Weakness Elbow ROM Limitations Muscle Weakness Wrist Limitations of Range of Motion Muscle Weakness Bed Mobility bed mobility-scooting,bed mobility - supine/sit Assist Level Contact Guard/Hand Hold Transfer Training Sit/Stand Transfer Assist Level Minimal x 1 (25% assist) Chair Transfer Ability Minimal x 1 (25% assist) Chair Transfer Technique Sit to/from Ambulatory Lower Body Dressing Ability Contact Guard Rehab OT IP prob,goals,plan Problems Date of Evaluation: 06/22/24 OT IP Problems Bed Mobility,Transfers,Balance ,Self care,Safety Rehab Potential Rehab Potential Good Equipment Needs Assistive Devices Rolling / Wheeled Walker Plan OT intervention Plan Bed Mobility,Transfers,Balance ,Self care,Safety,Therapeutic Exercise OT Plan Frequency Daily Duration LOS Discharge Goals Bed Mobility Ability Standby Assistance Sit to Stand Chair Transfer Ability Supervision/Stand by,Contact Guard/Hand Hold Chair Transfer Ability Supervision/Stand by,Contact Guard/Hand Hold Chair Transfer Technique Sit to/from Ambulatory Chair Transfer Assistive Devices Rolling Walker Lower Body Dressing Ability Contact Guard Upper Body Dressing Ability Standby Assistance Bathing Ability Minimal Assistance Performing Toilet Hygiene Ability Contact Guard Overall Commode/Toilet Transfer Ability Contact Guard Commode/Toilet Transfer Technique Sit to/from Ambulatory Discharge Plan OT Discharge Plan Patient is currently most appropriate to return home once medically stable for d/c. Home health therapy is recommended to further increase UE strength and other residual effects from prior CVAs. Skilled acute therapy is currently recommended to improve UE strength, ADL independence, and functional transfers to return to [facility]. Eval Complexity Eval Charge Codes 82740 - Moderate Complexity PHYSICIAN CERTIFICATION: I certify the specified therapy services for [place] Mata are required, authorized, and reviewed every 30 days.
[2024-06-22] MEDS: LISINOPRIL 10MG TABLET 10 MG PO (10:28)
[2024-06-22] MEDS: ASPIRIN EC 81MG TABLET 81 MG PO (10:28)
[2024-06-22] MEDS: CLOPIDOGREL 75MG TAB 75 MG PO (10:28)
[2024-06-22 12:00] VITALS: BP 136/79; PULSE 60; PULSE 72; RESP 16; TEMP 36.6; O2SAT 96
--- NOTE | 2024-06-22 12:59 | SW/DCPLANNER ---
Spoke with patient once she is medically stable and ready for DC if she would be interested in home health services. Patient stated that she would and that she had no preference of what agency she has. I sent patient's info to [facility] and they have accepted patient. Allen LUEVANO [employer]
--- NOTE | 2024-06-24 10:54 | SW/DCPLANNER ---
Phoned patient x2. left message with name and call back number. Allen Bob
== END 2024-06-22 14:40 | disposition home health service (06) ==
LOC: ER 11:59 → 2ND 12:17
PROVIDERS: Admitting Provider Internal Medicine Adolescent Medicine; Emergency Provider Emergency Medicine; PCP Internal Medicine Adolescent Medicine; Visit Provider Internal Medicine Adolescent Medicine
DX: R29.818 Other symptoms and signs involving the nervous system (principal); I10 Essential (primary) hypertension; F32.9 Major depressive disorder, single episode, unspecified; F17.200 Nicotine dependence, unspecified, uncomplicated; E03.9 Hypothyroidism, unspecified; E78.2 Mixed hyperlipidemia; G25.81 Restless legs syndrome; I70.1 Atherosclerosis of renal artery; Z86.73 Personal history of transient ischemic attack (TIA), and cerebral infarction without residual deficits; F17.210 Nicotine dependence, cigarettes, uncomplicated; Z88.0 Allergy status to penicillin; Z88.1 Allergy status to other antibiotic agents; Z88.8 Allergy status to other drugs, medicaments and biological substances; Z79.82 Long term (current) use of aspirin; Z79.899 Other long term (current) drug therapy; I42.9 Cardiomyopathy, unspecified; Z91.128 Patient's intentional underdosing of medication regimen for other reason; T46.5X6A Underdosing of other antihypertensive drugs, initial encounter
CPT/HCPCS: 36415; 70450; 70496; 70498; 71045; 80053; 80061; 80307; 80320; 81001; 82962; 83036; 83735; 84436; 84443; 84484; 85025; 85610; 85730; 86803; 87086; 87389; 93005; 97116; 97163; 97166; 99291; G0378; Q9967

== ENCOUNTER 2024-07-11 10:18 | Outpatient (CLI) | payer MEDICARE, SELFPAY ==
--- NOTE | 2024-07-11 10:23 | XR_ITS ---
FINAL REPORT CLINICAL HISTORY: pain, no known trauma COMPARISON: None FINDINGS: LUMBOSACRAL SPINE SERIES Five views of the lumbosacral spine were obtained. There is no fracture present. There is 40 degrees of lumbar scoliosis convex to the left. There is no malalignment. Prominent anterior osteophyte formation is noted at L2-3, L3-4, and L4-5. Bilateral renal artery stents are present. IMPRESSION: Changes of degenerative disc disease. Scoliosis. Reviewed, Interpreted and Dictated by Partha Rome MD Transcribed by Zabrina Jackson Authenticated and [facility]
--- NOTE | 2024-07-11 10:23 | XR_ITS ---
FINAL REPORT CLINICAL HISTORY: PAIN COMPARISON: None FINDINGS: SACROILIAC JOINTS SERIES Three views were obtained. Right hip prosthesis is present with intact hardware. There is no acute fracture or dislocation. The joint spaces appear normal. The visualized bony structures are well aligned. No soft tissue abnormality is seen. IMPRESSION: No acute bony abnormality. Reviewed, Interpreted and Dictated by Partha Rome MD Transcribed by Zabrina Jackson Authenticated and . [facility]
--- NOTE | 2024-07-11 10:23 | XR_ITS ---
FINAL REPORT CLINICAL HISTORY: pain, no known trauma COMPARISON: None FINDINGS: RIGHT HIP Two views of the right hip with an AP view of the pelvis demonstrate a total joint prosthesis. Hardware appears intact. There is no acute fracture or dislocation. There is an ossific density superior to the greater trochanter measuring 1.7 cm probably representing heterotopic bone formation. No soft tissue abnormality is seen. IMPRESSION: Intact total joint prosthesis without acute bony abnormality. Reviewed, Interpreted and Dictated by Partha Rome MD Transcribed by Zabrina Jackson Authenticated and [facility]
--- NOTE | 2024-07-11 10:23 | XR_ITS ---
FINAL REPORT CLINICAL HISTORY: pain, no known falls COMPARISON: None FINDINGS: LEFT HIP: Two views of the left hip with an AP view of the pelvis demonstrate no acute fracture or dislocation. The joint spaces appear normal. The visualized bony structures are well aligned. No soft tissue abnormality is seen. IMPRESSION: No acute bony abnormality. Reviewed, Interpreted and Dictated by Partha Rome MD Transcribed by Zabrina Jackson Authenticated and [facility]
== END 2024-07-11 23:59 | disposition home or self-care (01) ==
LOC: RAD 10:19
PROVIDERS: PCP Internal Medicine Adolescent Medicine; Visit Provider Internal Medicine Adolescent Medicine
DX: M41.86 Other forms of scoliosis, lumbar region (principal); M47.896 Other spondylosis, lumbar region; M25.552 Pain in left hip; M25.551 Pain in right hip; Z96.641 Presence of right artificial hip joint
CPT/HCPCS: 72110; 72202; 73502

== ENCOUNTER 2024-07-13 06:05 | Emergency (ER) | payer MEDICARE, SELFPAY ==
--- NOTE | 2024-07-13 06:22 | ECG_ITS ---
APPROVED REPORT Exam: Resting ECG HR:81 bpm ECG Measurements Heart Rate 81 AXES NE 172 P 87 QRSd 91 QRS 72 QT 374 T 51 QTc 411 Conclusion SINUS RHYTHM POSSIBLE RIGHT ATRIAL ENLARGEMENT [0.25mV P-WAVE] LEFT VENTRICULAR HYPERTROPHY AND ST-T CHANGE [VOLTAGE CRITERIA PLUS ST/T ABNORMALITY] ABNORMAL ECG Electronically signed by : MARY ELLEN DAVIS, 07/18/2024 07:43:28
--- NOTE | 2024-07-13 06:23 | CT_ITS ---
PROCEDURE INFORMATION: Exam: CTA Neck With Contrast Exam date and time: 07/13/2024 6:43 AM Age: 63 years old Clinical indication: Stroke-like symptoms; Altered mental status/memory loss; Additional info: Possible stroke, AMS, recent stroke TECHNIQUE: Imaging protocol: Computed tomographic angiography of the neck with contrast. Exam focused on the cervical segments of the vasculature. 3D rendering (Not supervised by radiologist): MIP and/or 3D reconstructed images were created by the technologist. Radiation optimization: All CT scans at this facility use at least one of these dose optimization techniques: automated exposure control; mA and/or kV adjustment per patient size (includes targeted exams where dose is matched to clinical indication); or iterative reconstruction. Contrast material: ISOVUE 370; Contrast volume: 80 ml; Contrast route: INTRAVENOUS (IV); COMPARISON: CT ANGIO NECK 06/21/2024 10:39 AM FINDINGS: Right common carotid artery: Right common carotid artery is not well evaluated given extensive patient motion. The vessel is grossly patent. Right internal carotid artery: Stenosis involving the proximal right ICA is again evident but not well evaluated given extensive patient motion. Limited evaluation of the mid right ICA secondary to patient motion. The distal right ICA is patent. Right external carotid artery: No occlusion or stenosis of the origin. Left common carotid artery: Limited evaluation of the left common carotid artery secondary to patient motion, no gross severe stenosis. Left internal carotid artery: Patent left proximal ICA stent again noted. Mid and distal left ICA appear widely patent. Left external carotid artery: No occlusion or stenosis of the origin. Right vertebral artery: Small caliber right vertebral artery. 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 Overall findings similar to the prior study. Left vertebral artery: Similar moderate narrowing at the origin of the left vertebral artery secondary to calcified and noncalcified atherosclerosis. The left vertebral artery is dominant, remainder of the vessel is widely patent. Left subclavian artery: Patent stent again noted in the proximal left subclavian artery. Aorta: Atherosclerotic changes of the aorta and branch vessels. Thyroid: Heterogeneous appearance of the thyroid gland again noted, no discrete nodule. Soft tissues: Normal. No significant soft tissue swelling. Bones/joints: There is a pectus excavatum deformity of the anterior chest wall. Degenerative changes of the spine. Lungs: Air trapping again noted in the superior lower lobes bilaterally. Other findings: Overall study is limited by patient motion. IMPRESSION: Overall study is very limited by patient motion. No gross change from prior exam as detailed above. REFERENCES: NASCET CRITERIA. The degree of stenosis in the cervical segment of the internal carotid artery is based on NASCET criteria. Normal is no stenosis. Mild is less than 50% stenosis. Moderate is 50-69% stenosis. Severe is 70% to 99% stenosis. Total occlusion is no detectable patent lumen.
--- NOTE | 2024-07-13 06:23 | CT_ITS ---
PROCEDURE INFORMATION: Exam: CTA Head With Contrast, Arteriography Exam date and time: 07/13/2024 6:43 AM Age: 63 years old Clinical indication: Stroke-like symptoms; Altered mental status/memory loss; Additional info: Possible stroke, AMS, recent stroke TECHNIQUE: Imaging protocol: Computed tomographic angiography of the head with contrast. Exam focused on the arteries. 3D rendering (Not supervised by radiologist): MIP and/or 3D reconstructed images were created by the technologist. Radiation optimization: All CT scans at this facility use at least one of these dose optimization techniques: automated exposure control; mA and/or kV adjustment per patient size (includes targeted exams where dose is matched to clinical indication); or iterative reconstruction. Contrast material: ISOVUE 370; Contrast volume: 80 ml; Contrast route: INTRAVENOUS (IV); COMPARISON: CT ANGIO HEAD 06/21/2024 10:39 AM FINDINGS: ANTERIOR CIRCULATION: Right internal carotid artery: Calcified atherosclerosis involving the cavernous portion of the right distal ICA with less than 50% luminal narrowing. Right middle cerebral artery: No occlusion or significant stenosis. No aneurysm. Right anterior cerebral artery: No occlusion or significant stenosis. No aneurysm. Left internal carotid artery: Calcified atherosclerosis involving the left distal ICA at the carotid siphon with less than 50% luminal narrowing. Left middle cerebral artery: No occlusion or significant stenosis. No aneurysm. 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 POSTERIOR CIRCULATION: Right vertebral artery: No occlusion or significant stenosis. No aneurysm. Left vertebral artery: No occlusion or significant stenosis. No aneurysm. Basilar artery: No occlusion or significant stenosis. No aneurysm. Right posterior cerebral artery: No occlusion or significant stenosis. No aneurysm. Left posterior cerebral artery: No occlusion or significant stenosis. No aneurysm. Brain: No definite mass, mass effect, or midline shift. Cerebral ventricles: No ventriculomegaly. Bones/joints: Unremarkable. No acute fracture. Soft tissues: Unremarkable. IMPRESSION: No large vessel occlusion or significant stenosis.
--- NOTE | 2024-07-13 06:23 | CT_ITS ---
PROCEDURE INFORMATION: Exam: CT Head Without Contrast Exam date and time: 07/13/2024 6:42 AM Age: 63 years old Clinical indication: Stroke-like symptoms; Altered mental status/memory loss; Additional info: Possible stroke TECHNIQUE: Imaging protocol: Computed tomography of the head without contrast. Radiation optimization: All CT scans at this facility use at least one of these dose optimization techniques: automated exposure control; mA and/or kV adjustment per patient size (includes targeted exams where dose is matched to clinical indication); or iterative reconstruction. Other technique: STROKE PROTOCOL was implemented. COMPARISON: CT ANGIO HEAD 06/21/2024 10:39 AM FINDINGS: Brain: Stable encephalomalacia in the left occipital lobe. Multiple chronic lacunar infarcts again noted bilaterally. There is no evidence of acute intracranial hemorrhage. No mass effect or midline shift. Cerebral ventricles: Ex-vacuo changes of the ventricles. Paranasal sinuses: Visualized sinuses are unremarkable. No fluid levels. Mastoid air cells: Visualized mastoid air cells are well aerated. Orbital cavities: Rightward gaze. Bones: Unremarkable. No acute fracture. Soft tissues: Unremarkable. IMPRESSION: Stable chronic findings as detailed above, no acute intracranial process evident. ASSESSMENT: ASPECTS ([place] Stroke [facility] Early CT Score) is 10.
[2024-07-13 06:24] VITALS: BP 164/139; PULSE 83; RESP 20; TEMP 36.6; O2SAT 97; BMI 22.3
--- NOTE | 2024-07-13 06:29 | ED_ITS ---
Discharge Plan Disposition Patient Disposition: Home, Self-Care Chief Complaint: Neuro Symptoms/Deficit Prescriptions Prescriptions: No Action pramipexole 1 mg tablet 1 mg PO TIDP PRN (Reason: Restless Leg(S)) Qty: 90 1RF atorvastatin 40 mg Tablet 40 mg PO HS 30 Days Qty: 30 0RF clopidogrel 75 mg Tablet 75 mg PO DAILY 20 Days Qty: 20 0RF levothyroxine [Synthroid] 50 mcg Tablet 50 mcg PO DAILYDM 30 Days Qty: 30 0RF lisinopril 10 mg Tablet 10 mg PO DAILY 30 Days Qty: 30 0RF aspirin 81 mg Tablet,Delayed Release (Dr/Ec) 81 mg PO DAILY 30 Days Qty: 30 0RF Referrals Follow up/Referrals: ProviderMarylin MD [Primary Care Provider] - See instructions Sue Shoemaker MD [Staff Physician] - See instructions Hugo Padilla MD [Staff Physician] - See instructions Activity Restrictions/Add. Instructions Additional Instructions/Restrictions: Call your family doctor to establish care for this visit to the emergency department and schedule follow-up within 48 hours to ensure improvement. If you have any worsening of your condition or any other concerning signs or symptoms, return to the emergency department or your primary care doctor for further evaluation. Call Dr. Padilla's office to have Holter monitor evaluated after 48-hours. If you have any events or changes from your baseline, be sure to keep a log of these. Call Dr. Shoemaker in order to set up an outpatient EEG to make sure you are not having seizures or any reason for seizures to be the most likely cause of your symptoms. Also talk to either Dr. Shoemaker or your family doctor about scheduling an MRI to further delineate what caused her symptoms. Smoking cessation will be paramount in preventing these in the future. Clinical Impressions Clinical Impression: Transient neurological symptoms Print Language Print Language: Libyan Discharge ED Provider: Angelo Diez General Adult HPI <Alfonso Anderson MD - Last Filed: 07/13/24 06:59> General Chief complaint: Neuro Symptoms/Deficit Stated complaint: trouble Time Seen by Provider: 07/13/24 06:23 History of Present Illness HPI narrative: 63-year-old female smoker with history of CVA, malignant hypertension, generalized anxiety, carotid artery stenosis, hypothyroid, hyperlipidemia presents to the ER with her niece and sister with concerns for possible stroke. Patient was evaluated in this ER for strokelike symptoms at the end of May. Review of records demonstrates patient has a prior occipital CVA with reportedly minor residual left lower extremity numbness, family reports peripheral vision problems, short-term memory issues. Review of records from May demonstrates patient presented more confused than normal and complaining of worsening numbness on the left side. Patient was admitted to the hospitalist service. Patient presents this morning with family concerned that this morning they saw the patient struggling to walk and she had difficulty following commands, she was not able to raise her arms when I asked her to, she was not able to identify the TV in their house, and patient was saying she could not see. They report she was having difficulty with her speech as well. Last known normal was midnight when family went to bed, more than 6 hours prior to arrival. They report by the time they arrived in the ER patient's strength seems somewhat improved. Reportedly no recent illness, no chest pain, vomiting, abdominal pain, diarrhea, headache, patient does not report new numbness to me at this time. Patient is oriented to month but disoriented to year, she knows her name but did not know her age. No fevers or chills, no recent illness. Patient's blood pressure medication was recently increased approximately 5 days ago. Related Data Previous Rx's ?Medication ?Instructions ?Recorded aspirin 81 mg tablet,delayed 81 mg PO DAILY 30 days #30 tabs 12/01/22 release pramipexole 1 mg tablet 1 mg PO TIDP PRN Restless Leg(S) 05/27/24 #90 tabs atorvastatin 40 mg tablet 40 mg PO HS 30 days #30 tabs 06/22/24 clopidogrel 75 mg tablet 75 mg PO DAILY 20 days #20 tabs 06/22/24 levothyroxine 50 mcg tablet 50 mcg PO DAILYDM 30 days #30 tabs 06/22/24 (Synthroid) lisinopril 10 mg tablet 10 mg PO DAILY 30 days #30 tabs 06/22/24 Allergies Allergy/AdvReac Type Severity Reaction Status Date / Time Cephalosporins Allergy Unknown Unknown Verified 12/28/23 11:12 allergy reaction Penicillins Allergy Unknown Unknown Verified 12/28/23 11:12 allergy reaction Sutures Allergy Unknown Verified 12/28/23 11:12 allergy reaction PFSH <Alfonso Anderson MD - Last Filed: 07/13/24 06:59> PFSH Disclaimer: The information contained in this section may have been updated after the patient was seen, as this information can be updated by other users. Medical History Cardiomyopathy History of CVA (cerebrovascular accident) Incontinence Renal artery stenosis Smoker Insomnia Acquired hypothyroidism IFG (impaired fasting glucose) Left leg paresthesias Abnormal head CT MARTINA (obstructive sleep apnea) History of paresthesia RLS (restless legs syndrome) Essential hypertension Carotid artery stenosis Left carotid bruit Cardiac murmur Restless sleeper Family history of early CAD Claudication Dyspnea Edema Ex-smoker Abnormal EKG HLD (hyperlipidemia) HTN (hypertension) Surgical History History of carpal tunnel surgery Hx of tonsillectomy Hx of tubal ligation Hx of cholecystectomy History of thoracotomy History of right hip replacement Family History Mother Hypertension Diabetes Other Hyperlipidemia Social History Smoking Status: Current every day smoker tobacco type: cigarettes packs per day: 2 years smoked: 51 quit status: not considering quitting second hand exposure: No alcohol intake: current substance use type: denies use current occupational status: disabled Travel in the last 8 weeks?: None household members: other housing: house caffeine: Yes Other Medical History Have you received the Flu Vaccine for this season: No Have you received the Pneumonia Vaccine: No <Alfonso Anderson MD - Last Filed: 07/13/24 06:59> ROS Obtained: Yes Systems reviewed as appropriate & no additional complaints except as documented Per HPI Physical Exam <Alfonso Anderson MD - Last Filed: 07/13/24 06:59> General General appearance: alert and in no apparent distress Comment: Chronically ill-appearing, appears older than stated age Head Head exam: atraumatic and normocephalic Eye Eye exam: Present PERRL, EOMI and other (Bitemporal hemianopsia) ENT ENT exam: Present mucous membranes moist Neck Neck exam: Present normal inspection and full ROM Chest Chest inspection: Present symmetric chest wall rise Respiratory Respiratory exam: Present normal lung sounds bilaterally; Absent respiratory distress, wheezes or stridor Cardiovascular Cardiovascular exam: Present regular rate and normal rhythm Abdominal Exam Abdominal exam: Present soft; Absent distention or tenderness Extremities Exam Extremities exam: Present full ROM Neurological Exam Neurological exam: Present alert and other (NIHSS 6, receiving 3 points for bilateral bilateral temporal hemianopia, 1 point for aphasia, 1 point for discoordination in the right lower extremity, difficulty with [id number], 1 point for incorrect answer to 1 orientation question); Absent oriented X3 (Oriented to self, location, disoriented to year, oriented to month, disoriented to age), normal gait (Patient's gait is unsteady requiring 2 person assist from the wheelchair to the stretcher) or motor sensory deficit Psychiatric Psychiatric exam: Present normal affect and normal mood Skin Skin exam: Present warm and dry Medical Decision Making <Alfonso Anderson MD - Last Filed: 07/13/24 06:59> Medical Records Medical records reviewed: Yes I reviewed the patient's medical records. Screening: Per USPSTF and CDC recommendations, given the prevalence of disease in our region, it is our hospital?s policy to screen for HIV and viral Hepatitis for all patients aged 18 and over and those with ongoing risk factors. MR Comment: See HPI Hardeep Inquiry Pt receiving controlled substance: No Vital Signs: 07/13/24 06:24 07/13/24 07:01 07/13/24 08:02 Temperature 97.9 F Temperature Source Oral Pulse Rate 75 78 Pulse Rate [Left] 83 Respiratory Rate 20 15 14 Blood Pressure 172/68 H 117/96 H Blood Pressure [Right Arm] 164/139 H Blood Pressure Mean [Right Arm] 147 Blood Pressure Source [Right Arm] Automatic Cuff Blood Pressure Position [Right Arm] Supine 02 Sat by Pulse Oximetry 97 95 95 Oxygen Delivery Method Room Air Room Air Room Air Lab Data Lab Results 07/13/24 06:15: WBC 11.2 H, RBC 4.84, Hgb 13.4, Hct 42.4, MCV 87.6, MCH 27.7, M CHC 31.6 L, RDW 12.7, Plt Count 315, MPV 10.1, Neut % (Auto) 68.7, Lymph % (Auto) 21.9, [place] % (Auto) 7.4, Eos % (Auto) 0.9, Baso % (Auto) 0.6, Neut # (Auto) 7.7, Lymph # (Auto) 2.5, [place] # (Auto) 0.8, Eos # (Auto) 0.1, Baso # (Auto) 0.1, PT 11.9, INR 1.08, APTT 26.7, Sodium 140, Potassium 4.0, Chloride 105, Carbon Dioxide 28, Anion Gap 11.0, BUN 14, Creatinine 0.90, Estimated Creat Clear 52, Estimated GFR 63, Est GFR ( Amer) 76, Glucose 117 H, Calcium 9.8, Total Bilirubin 0.8, AST 23, ALT 15, Alkaline Phosphatase 114, Troponin I < 0.01, Total Protein 7.5, Albumin 4.7, Globulin 2.8, Albumin/Globulin Ratio 1.7, Triglycerides 98, Cholesterol 124 L, LDL Cholesterol Direct 55.50 L, VLDL Cholesterol 20, HDL Cholesterol 44, Cholesterol/HDL Ratio 2.8, Plasma/Serum Alcohol < 10 07/13/24 06:30: TSH 1.92, Thyroxine (T4) 11.0 07/13/24 07:29: Urine Color Yellow, Urine Appearance Clear, Urine pH 6.0, Ur Specific [place] <= 1.005, Urine Protein Negative, Urine Glucose (UA) Negative, Urine Ketones Negative, Urine Blood Trace-l, Urine Nitrate Negative, Urine Bilirubin Negative, Urine Urobilinogen 0.2, Ur Leukocyte Esterase Trace, Urine RBC Occasional, Urine WBC Occasional, Ur Squamous Epith Cells Occasional, Urine Bacteria Trace 07/13/24 06:15 07/13/24 06:15 Orders (Tests/Meds): ED MEDICATIONS Generic Name Dose Route Start Last Admin Trade Name Freq PRN Reason Stop Dose Admin Sodium Chloride 10 ml 07/13/24 06:23 07/13/24 06:50 Sodium Chloride 0.9% 10ml Flush Syringe IV 08/12/24 06:22 10 ml NEEDED PRN Administration Maintain IV Site Discontinued Medications Generic Name Dose Route Start Last Admin Trade Name Freq PRN Reason Stop Dose Admin Iopamidol 80 ml 07/13/24 06:49 07/13/24 06:50 Iopamidol-370 (76%);100ml Bottle IV 07/13/24 06:50 80 ml ONCE ONE Administration Sodium Chloride 50 ml 07/13/24 06:49 07/13/24 06:50 0.9 % Sodium Chloride 50 Ml Vial IV 07/13/24 06:50 50 ml ONCE ONE Administration Sodium Chloride 10 ml 07/13/24 06:49 07/13/24 06:50 Sodium Chloride 0.9% 10ml Syr (Rad Only) IV 07/13/24 06:50 10 ml ONCE ONE Administration ORDERS Category Date Time Status CT angio head Stat Cat Scan 07/13/24 06:[address] angio neck Stat Cat Scan 07/13/24 06:[address] head/brain wo con Stat Cat Scan 07/13/24 06:23 Completed CXR --portable [XR chest portable] Stat Exams 07/13/24 07:09 Completed Activated Partial Thrombo Time Stat Lab 07/13/24 06:15 Completed Complete Blood Count Auto Diff Stat Lab 07/13/24 06:15 Completed Comprehensive Metabolic Panel Stat Lab 07/13/24 06:15 Completed Drug Screen,Urine Stat Lab 07/13/24 07:29 Received Ethyl Alcohol Stat Lab 07/13/24 06:15 Completed Lipid Panel Stat Lab 07/13/24 06:15 Completed Prothrombin Time INR Stat Lab 07/13/24 06:15 Completed T4 (Thyroxine) Stat Lab 07/13/24 06:30 Completed TSH [Thyroid Stimulating Hormone] Stat Lab 07/13/24 06:30 Completed Troponin I Q3H Lab 07/13/24 09:30 Ordered Troponin I Q3H Lab 07/13/24 12:30 Ordered Troponin I Stat Lab 07/13/24 06:15 Completed Urinalysis and Microscopic Stat Lab 07/13/24 07:29 Completed ECG Request Stat Y 07/13/24 06:22 Completed Medical Decision Narrative: In summary, this 63-year-old female with comorbidities described in the HPI which may not be at goal therapy presents to the emergency department today with concerns of strokelike symptoms with last known normal more than 6 hours prior to arrival. On initial evaluation patient is hemodynamically stable, afebrile, GCS 14 with slight disorientation, NIHSS 6 tested by me with bitemporal hemianopsia, difficulty identifying objects/aphasia, disorientation, discoordination of the right lower extremity with difficulty with [id number]. Differential diagnosis includes but is not limited to intracranial bleed, mass, midline shift, TIA, stroke, electrolyte abnormality, UTI, other metabolic derangement, among others. [id number] glucose on arrival performed at bedside 111. Ruling out most morbid conditions drove my assessment. Patient does not meet criteria for stroke alert since she is more than 4.5 hours outside her last known normal, however she was sent for emergent CT imaging with angiography. Based on these concerns, I ordered serum labs, CT imaging, urine studies. ECG personally interpreted demonstrates normal sinus rhythm, rate 81, normal axis, normal MA and QTc, no STEMI. No medications administered to the patient on arrival to the ER. CT head personally interpreted does not demonstrate no acute intracranial abnormality, patient has significant chronic findings including areas of old stroke. I received a call from the reading radiologist who verifies the same. See radiology read for final interpretation. CT angiography of the head and neck pending at the time of physician handoff. Patient handed off to Dr. Diez in stable condition pending radiology reads and additional management. <Angelo Diez MD - Last Filed: 07/13/24 08:57> Vital Signs: 07/13/24 06:24 07/13/24 07:01 07/13/24 08:02 Temperature 97.9 F Temperature Source Oral Pulse Rate 75 78 Pulse Rate [Left] 83 Respiratory Rate 20 15 14 Blood Pressure 172/68 H 117/96 H Blood Pressure [Right Arm] 164/139 H Blood Pressure Mean [Right Arm] 147 Blood Pressure Source [Right Arm] Automatic Cuff Blood Pressure Position [Right Arm] Supine 02 Sat by Pulse Oximetry 97 95 95 Oxygen Delivery Method Room Air Room Air Room Air Lab Data Lab Results 07/13/24 06:15: WBC 11.2 H, RBC 4.84, Hgb 13.4, Hct 42.4, MCV 87.6, MCH 27.7, M CHC 31.6 L, RDW 12.7, Plt Count 315, MPV 10.1, Neut % (Auto) 68.7, Lymph % (Auto) 21.9, [place] % (Auto) 7.4, Eos % (Auto) 0.9, Baso % (Auto) 0.6, Neut # (Auto) 7.7, Lymph # (Auto) 2.5, [place] # (Auto) 0.8, Eos # (Auto) 0.1, Baso # (Auto) 0.1, PT 11.9, INR 1.08, APTT 26.7, Sodium 140, Potassium 4.0, Chloride 105, Carbon Dioxide 28, Anion Gap 11.0, BUN 14, Creatinine 0.90, Estimated Creat Clear 52, Estimated GFR 63, Est GFR ( Amer) 76, Glucose 117 H, Calcium 9.8, Total Bilirubin 0.8, AST 23, ALT 15, Alkaline Phosphatase 114, Troponin I < 0.01, Total Protein 7.5, Albumin 4.7, Globulin 2.8, Albumin/Globulin Ratio 1.7, Triglycerides 98, Cholesterol 124 L, LDL Cholesterol Direct 55.50 L, VLDL Cholesterol 20, HDL Cholesterol 44, Cholesterol/HDL Ratio 2.8, Plasma/Serum Alcohol < 10 07/13/24 06:30: TSH 1.92, Thyroxine (T4) 11.0 07/13/24 07:29: Urine Color Yellow, Urine Appearance Clear, Urine pH 6.0, Ur Specific [place] <= 1.005, Urine Protein Negative, Urine Glucose (UA) Negative, Urine Ketones Negative, Urine Blood Trace-l, Urine Nitrate Negative, Urine Bilirubin Negative, Urine Urobilinogen 0.2, Ur Leukocyte Esterase Trace, Urine RBC Occasional, Urine WBC Occasional, Ur Squamous Epith Cells Occasional, Urine Bacteria Trace Orders (Tests/Meds): ED MEDICATIONS Generic Name Dose Route Start Last Admin Trade Name Freq PRN Reason Stop Dose Admin Sodium Chloride 10 ml 07/13/24 06:23 07/13/24 06:50 Sodium Chloride 0.9% 10ml Flush Syringe IV 08/12/24 06:22 10 ml NEEDED PRN Administration Maintain IV Site Discontinued Medications Generic Name Dose Route Start Last Admin Trade Name Freq PRN Reason Stop Dose Admin Iopamidol 80 ml 07/13/24 06:49 07/13/24 06:50 Iopamidol-370 (76%);100ml Bottle IV 07/13/24 06:50 80 ml ONCE ONE Administration Sodium Chloride 50 ml 07/13/24 06:49 07/13/24 06:50 0.9 % Sodium Chloride 50 Ml Vial IV 07/13/24 06:50 50 ml ONCE ONE Administration Sodium Chloride 10 ml 07/13/24 06:49 07/13/24 06:50 Sodium Chloride 0.9% 10ml Syr (Rad Only) IV 07/13/24 06:50 10 ml ONCE ONE Administration ORDERS Category Date Time Status CT angio head Stat Cat Scan 07/13/24 06:[address] angio neck Stat Cat Scan 07/13/24 06:[address] head/brain wo con Stat Cat Scan 07/13/24 06:23 Completed CXR --portable [XR chest portable] Stat Exams 07/13/24 07:09 Completed Activated Partial Thrombo Time Stat Lab 07/13/24 06:15 Completed Complete Blood Count Auto Diff Stat Lab 07/13/24 06:15 Completed Comprehensive Metabolic Panel Stat Lab 07/13/24 06:15 Completed Drug Screen,Urine Stat Lab 07/13/24 07:29 Received Ethyl Alcohol Stat Lab 07/13/24 06:15 Completed Lipid Panel Stat Lab 07/13/24 06:15 Completed Prothrombin Time INR Stat Lab 07/13/24 06:15 Completed T4 (Thyroxine) Stat Lab 07/13/24 06:30 Completed TSH [Thyroid Stimulating Hormone] Stat Lab 07/13/24 06:30 Completed Troponin I Q3H Lab 07/13/24 09:30 Ordered Troponin I Q3H Lab 07/13/24 12:30 Ordered Troponin I Stat Lab 07/13/24 06:15 Completed Urinalysis and Microscopic Stat Lab 07/13/24 07:29 Completed ECG Request Stat Y 07/13/24 06:22 Completed Medical Decision Narrative: In summary, this 63-year-old female with comorbidities described in the HPI which may not be at goal therapy presents to the emergency department today with concerns of strokelike symptoms with last known normal more than 6 hours prior to arrival. On initial evaluation patient is hemodynamically stable, afebrile, GCS 14 with slight disorientation, NIHSS 6 tested by me with bitemporal hemianopsia, difficulty identifying objects/aphasia, disorientation, discoordination of the right lower extremity with difficulty with [id number]. Differential diagnosis includes but is not limited to intracranial bleed, mass, midline shift, TIA, stroke, electrolyte abnormality, UTI, other metabolic derangement, among others. [id number] glucose on arrival performed at bedside 111. Ruling out most morbid conditions drove my assessment. Patient does not meet criteria for stroke alert since she is more than 4.5 hours outside her last known normal, however she was sent for emergent CT imaging with angiography. Based on these concerns, I ordered serum labs, CT imaging, urine studies. ECG personally interpreted demonstrates normal sinus rhythm, rate 81, normal axis, normal MA and QTc, no STEMI. No medications administered to the patient on arrival to the ER. CT head personally interpreted does not demonstrate no acute intracranial abnormality, patient has significant chronic findings including areas of old stroke. I received a call from the reading radiologist who verifies the same. See radiology read for final interpretation. CT angiography of the head and neck pending at the time of physician handoff. Patient handed off to Dr. Diez in stable condition pending radiology reads and additional management. Chary: I assumed primary responsibility for this patient after signout from previous physician. On my evaluation, patient neuro intact, amnestic to the event, but has no complaints. Alert and oriented x 4. Neurologically her baseline and ambulatory. Independent interpretation with nonactionable CBC or chemistry. Thyroid studies normal, nonactionable urine. Alcohol level negative. Chest x-ray without concern for pneumonia. Independent interpretation of CT imaging without focal vascular stenosis or intracranial hemorrhage. No evidence of LVO. Because patient back to baseline, I feel she is appropriate for outpatient management as she has adamant about being discharged. It was recommended that she stay in the hospital, but I feel patient is being appropriately medically managed as an outpatient, back to baseline, close return precautions were discussed with her and family. It was recommended that she follow-up with cardiology, as well as neurology for further workup as well as EEG. She voiced her understanding as well as family. Because patient at baseline without signs or symptoms of clinical decompensation, deemed appropriate for discharge. Results were relayed to patient who voiced understanding and were agreeable to outpatient management and follow up. I discussed my clinical impression with patient and answered all questions. At this time, the evidence for any other entities in the differential is insufficient to warrant any further testing or ED observation. This was explained as well. Advisory was given that persistent or worsening symptoms require further evaluation. I confirmed the understanding of this discussion. Critical Care <Alfonso Anderson MD - Last Filed: 07/13/24 06:59> Critical Care Time Critical Care Time: Yes Attestation: On 07/13/24, the high probability of a clinically significant, sudden or life threatening deterioration of the following system(s) required my full and direct attention, intervention and personal management. The time I documented below is in addition to time spent performing reported procedures but includes the following listed in this critical care notation. Total Time Total Critical Care Time: 35
--- NOTE | 2024-07-13 06:38 | PC.NURSE ---
pt taken to ct at this time via er carrier with audio visual collections coordinator
[2024-07-13] MEDS: SODIUM CHLORIDE 0.9% 10ML FLUSH SYRINGE 10 ML IV (06:50)
[2024-07-13] MEDS: 0.9 % SODIUM CHLORIDE 50 ML VIAL IV (06:50)
[2024-07-13] MEDS: IOPAMIDOL-370 (76%);100ML BOTTLE 80 ML IV (06:50)
[2024-07-13] MEDS: SODIUM CHLORIDE 0.9% 10ML SYR (RAD ONLY) 10 ML IV (06:50)
[2024-07-13 06:56] LABS: Basophils # 0.1 K/mm3 (0-0.2); Basophils % 0.6 % (0.1-2.0); Eosinophils # 0.1 Kmm3 (0.0-0.4); Eosinophils % 0.9 % (0.1-12.0); Hematocrit 42.4 % (37.0-47.0); Hemoglobin 13.4 g/dL (12.2-16.2); Immature Granulocytes # 0.06 10^3uL; Immature Granulocytes % 0.5 %; Lymphocytes # 2.5 K/mm3 (0.7-4.5); Lymphocytes % 21.9 % (10-50); Mean Corpuscular HGB Conc 31.6 g/dL (31.8-35.4); Mean Corpuscular Hemoglobin 27.7 pg (27.0-31.2); Mean Corpuscular Volume 87.6 fl (81-99); Mean Platelet Volume 10.1 fl (7.4-10.4); Monocytes # 0.8 K/mm3 (0.1-1.0); Monocytes % 7.4 % (1.7-9.3); Neutrophils # 7.7 K/mm3 (1.8-7.8); Neutrophils % 68.7 % (37.0-80.0); Nucleated Red Blood Cells # 0 10^3/uL; Nucleated Red Blood Cells % 0 %; Platelet Count 315 K/mm3 (142-424); Red Blood Count 4.84 M/mm3 (4.20-5.40); Red Cell Distribution Width 12.7 % (11.5-17.5); Red Cell Distribution Width-SD 40.6 fL; White Blood Count 11.2 K/mm3 (4.8-10.8)
[2024-07-13 07:01] VITALS: BP 172/68; PULSE 75; RESP 15; O2SAT 95
[2024-07-13 07:02] LABS: Alanine Aminotransferase 15 U/L (12-78); Alkaline Phosphatase 114 U/L (38-126); Aspartate Amino Transferase 23 U/L (14-36); Bilirubin,Total 0.8 mg/dl (0.2-1.3); Calcium 9.8 mg/dl (8.4-10.2); Chloride 105 mmol/L (98-107); Chol/HDL Ratio 2.8 (1-3.5); Cholesterol 124 mg/dl (140-200); Glucose 117 mg/dl (74-100); HDL Cholesterol 44 mg/dl (40-60); Sodium 140 mmol/L (136-145); Triglycerides 98 mg/dl (30-150); VLDL Cholesterol 20 mg/dL (0-40)
[2024-07-13 07:04] LABS: Activated Partial Thrombo Time 26.7 seconds (22.8-30.6); Albumin Level 4.7 g/dl (3.5-5.0); Albumin/Globulin Ratio 1.7 (1.1-1.8); Blood Urea Nitrogen 14 mg/dl (7-17); Carbon Dioxide 28 mmol/L (22.0-30.0); Creatinine Clearance Estimated 52 mL/min (50-200); Estimated Glomerular Filt Rate 63 ml/min (>60); GFR (African American) 76 ML/MIN (>60); Globulin 2.8 g/dL (1.3-3.2); INR 1.08 (0.9-1.1); Prothrombin Time 11.9 seconds (10.1-12.5); Total Protein,Serum 7.5 g/dl (6.3-8.2)
--- NOTE | 2024-07-13 07:09 | XR_ITS ---
FINAL REPORT CLINICAL HISTORY: Stroke symptoms, AMS COMPARISON: 06/21/2024 FINDINGS: A single view of the chest was obtained. The lungs are clear. There is no evidence of effusion or pneumothorax. There is a left-sided stent along the aortic arch presumably of the left subclavian or left common carotid artery. Mediastinum is unremarkable. Heart size is normal. IMPRESSION: No acute findings. Reviewed, Interpreted and Dictated by Stephanie Wharton MD Transcribed by Ema Buchanan Authenticated and [facility]
[2024-07-13 07:18] LABS: Troponin I < 0.01 ng/ml (0.00-0.034)
[2024-07-13 07:34] LABS: Microscopic, Urine URINE MICROSCOPIC (MICROSCOPIC)
[2024-07-13 07:35] LABS: Ethyl Alcohol < 10 mg/dl (0-10)
[2024-07-13 07:38] LABS: Appearance,Urine CLEAR (Clear); Bilirubin,Urine Negative (Negative); Blood, Urine TRACE-L (Negative); Color,Urine YELLOW (Yellow); Glucose,Urine (UA) Negative (Negative); Ketones,Urine Negative (Negative); Leukocyte Esterase,Urine TRACE (Negative); Nitrate,Urine Negative (Negative); Protein,Urine Negative (Negative); Specific Gravity, Urine <= 1.005 (1.005-1.030); Urobilinogen,Urine 0.2 EU/dl (0.2)
[2024-07-13 08:02] VITALS: BP 117/96; PULSE 78; RESP 14; O2SAT 95
[2024-07-13 08:02] LABS: Bacteria,Urine Trace /lpf; RBC,Urine Occasional #/hpf (0-3); Squamous Epithelial Cell,Urine Occasional #/hpf (0-5); WBC,Urine Occasional #/hpf (0-3)
[2024-07-13 08:03] LABS: Thyroid Stimulating Hormone 1.92 uIU/mL (0.465-4.68)
--- NOTE | 2024-07-13 08:56 | PC.NURSE ---
respiratory was called for 48 hour holter monitor for pt to wear home
[2024-07-13 10:03] VITALS: BP 117/96; PULSE 75; RESP 18; TEMP 36.6; O2SAT 94
[2024-07-13 10:20] LABS: Amphetamine/Metha Screen,Urine Negative ng/ml (<1000)
[2024-07-13 10:21] LABS: Barbiturates Screen,Urine Negative ng/ml (<200); Benzodiazepines Screen,Urine Negative ng/ml (<200)
[2024-07-13 10:22] LABS: Cannabinoid Screen,Urine Negative ng/ml (<50); Cocaine Screen,Urine Negative ng/ml (<300)
[2024-07-13 10:23] LABS: Methadone Screen,Urine Negative ng/ml (<300)
[2024-07-13 10:24] LABS: Opiate Screen,Urine Negative ng/ml (<300); Phencyclidine Screen,Urine Negative ng/ml (<25)
== END 2024-07-13 10:07 | disposition home or self-care (01) ==
PROVIDERS: Emergency Medicine; Emergency Provider Emergency Medicine
DX: R29.818 Other symptoms and signs involving the nervous system (principal); F17.210 Nicotine dependence, cigarettes, uncomplicated; I10 Essential (primary) hypertension; I65.29 Occlusion and stenosis of unspecified carotid artery; E78.5 Hyperlipidemia, unspecified; Z86.73 Personal history of transient ischemic attack (TIA), and cerebral infarction without residual deficits
CPT/HCPCS: 70450; 70496; 70498; 71045; 80053; 80061; 80307; 80320; 81001; 84436; 84443; 84484; 85025; 85610; 85730; 93005; 93225; 93226; 99291; Q9967

== ENCOUNTER 2024-10-29 23:00 | Emergency (ER) | payer MEDICARE, SELFPAY ==
--- OUTSIDE RECORDS SUMMARY | 2024-09-01 15:00 | XMS_ITS | Encounter Summary ---
Author Organization [facility] Address [address] [place] [address] Care Team Providers Care Streaming Media Specialist Name Role Phone Yonny Scott MD Primary Care Provider + [phone] Reason for Referral * Occupational Therapy (Routine) - Closed Specialty Diagnoses / Procedures Referred By Zoe guevara Referred To Contact Diagnoses History of stroke Right sided weakness Procedures DE OFFICE/OUTPATIENT NEW MODERATE MDM 45 MINUTES Eva Daley APRN [address] [place] [address] Phone: tel: fax: [place] [address] Phone: tel: fax: Referral ID Status Reason Start Date Expiration Date V isits Requested Visits Authorized [id number] Closed Specialty Services Required 09/01/2024 12/01/2025 1 1 * Consultation (Routine) - Closed Specialty Diagnoses / Procedures Referred By Zoe guevara Referred To Contact Sleep Medicine Diagnoses History of stroke Insomnia, unspecified type Procedures DE OFFICE/OUTPATIENT NEW MODERATE MDM 45 MINUTES Eva Daley APRN [address] [place] [address] Phone: tel: fax: [facility] [address] [facility] [address] [place] [address] Phone: tel: fax: Referral ID Status Reason Start Date Expiration Date Visits Re quested Visits Authorized [id number] Closed 09/01/2024 12/01/2025 1 1 Reason for Visit * Reason Comments Establish Care * Consultation (Routine) - Closed Specialty Diagnoses / Procedures Referred By Zoe t Referred To Contact Neurology Diagnoses Cerebrovascular accident (CVA), unspecified mechanism Procedures DE OFFICE/OUTPATIENT NEW MODERATE MDM 45 MINUTES Nieves Evans, GARMENT PATTERNMAKER [address] [place] [address] Phone: tel: fax: Julissa Kenney, GARMENT PATTERNMAKER [address] [place] [address] Phone: tel: fax: Referral ID Status Reason Start Date Expiration Date V isits Requested Visits Authorized [id number] Closed Specialty Services Required 07/21/2024 10/20/2025 1 1 Encounter Details Date Type Department Care Team (Late st Contact Info) Description 09/01/2024 3:00 PM EDT Office Visit [facility] [address] [facility] [address] [place] [address] Eva Daley, GARMENT PATTERNMAKER [address] [place] [address] History of stroke (Primary Dx); Bilateral carotid artery stenosis; Tobacco use; Hyperlipidemia LDL goal <70; Depression as late effect of cerebrovascular accident (CVA); Insomnia, unspecified type; Right sided weakness Social History Tobacco Use Types Packs/Day Years Used Date Smoking Tobacco: Former Cigarettes 0.3 50 Passive Smoke Exposure: Past Smokeless Tobacco: Never Tobacco Cessation:Counseling Given: No Alcohol Use Standard Drinks/Week Comments Not Currently 21 (1 standard drink = 0.6 oz pu re alcohol) [facility] Utilities Answer Date Recorded In the past 12 months has th e [employer], gas, oil, or water company threatened to shut off services in your home? No 07/20/2024 AUDIT-C Answer Date Recorded Q1: How often do you have a drink containing alcohol? 4 or more times a week 07/20/2024 Q2: How many drinks containi ng alcohol do you have on a typical day when you are drinking? 3 or 4 Q3: How often do you have si x or more drinks on one occasion? Patient declined 07/20/2024 Exercise Vital Sign Answer Date Recorde d On average, how many days pe r week do you engage in moderate to strenuous exercise (like a brisk walk)? 0 days 07/20/2024 On average, how many minutes do you engage in exercise at this level? 0 min 07/20/2024 Hunger Vital Sign Answer Date Recorded Within the past 12 months, y ou worried that your food would run out before you got the money to buy more. Never true 07/21/19 25 Within the past 12 months, t he food you bought just didn't last and you didn't have money to get more. Never true 07/20/2024 PRAPARE - Transportation Answer Date Re corded In the past 12 months, has l ack of transportation kept you from medical appointments or from getting medications? No 06/24 In the past 12 months, has l ack of transportation kept you from meetings, work, or from getting things needed for daily living? No 07/20/2024 Abuse Screen Answer Date Recorded Feels Unsafe at Home or Work/School no 07/20/2024 Feels Threatened by Someone no 06/24 Does Anyone Try to Keep You From Having Contact with Others or Doing Things Outside Your Home? no 07/20/2024 Physical Signs of Abuse Present no 07/20/2024 Housing Stability Answer Date Recorded Current Living Arrangements home 06/24 Potentially Unsafe Housing Conditions none 07/20/2024 Family and Community Support Answer Luciano e Recorded If for any reason you need h elp with day-to-day activities such as bathing, preparing meals, shopping, managing finances, etc., do you get the help you need? I get all the help I need 07/20/2024 Lonely or Isolated Not on file 07/20/2024 Employment Answer Date Recorded Do you want help finding or keeping work or a job? I do not need or want help 07/20/2024 Disabilities Answer Date Recorded Difficulty Concentrating, Remembering or Making Decisions no 07/20/2024 Difficulty Managing Errands Independently yes 07/20/2024 Education Answer Date Recorded Do you want help with school or training? For example, starting or completing job training or getting a high school diploma, GED or equivalent No 07/20/2024 Preferred Language [place] 07/20/2024 PHQ-2 Answer Date Recorded Patient Health Questionnaire-2 Score 0 09/01/2024 Comments No Sex and Gender Information Value Date Recorded Sex Assigned at Not on file Legal Sex Female 10:09 AM EDT Gender Identity Not on file Sexual Orientation Not on file documented as of this encounter Last Filed Vital Signs Vital Sign Reading Time Taken Comments Blood Pressure 111/68 09/01/2024 2:47 PM EDT Pulse 73 09/01/2024 2:47 PM EDT Temperature 36.7 C (98.1 F) 09/01/2024 2:47 PM EDT Respiratory Rate - - Oxygen Saturation 91% 09/01/2024 2:47 PM EDT Inhaled Oxygen Concentration - - Weight 58.5 kg (129 lb) 09/01/2024 2:47 PM EDT Height 160 cm (5' 2.99 ) 09/01/2024 2:47 PM EDT Body Mass Index 22.86 09/01/2024 2:47 PM EDT documented in this encounter Functional Status documented as of this encounter Patient Instructions * Patient Instructions* Eva Daley APRN - 09/01/2024 3:00 PM EDT - Continue aspirin 81 mg daily - Continue Plavix 75 mg daily - Continue rosuvastatin 40 mg nightly - SBP goals 110-150/80-90. Avoid low blood pressure due to severe narrowing of the arteries in yourbrain. Check twice daily and keep a log to your primary care provider - Stay well-hydrated - Avoid constipation/straining - Heart healthy diet - Fall precautions - Increase activity as tolerated -- Continue therapies as recommended -- Referral placed for OT -- Referral placed for sleep medicine - Continue to stop smoking - Follow-up with Dr. Dwyer as recommended [phone] - No driving. Follow-up with neuro-ophthalmology as scheduled 11/21/24 -- Follow up with primary care provider regarding seroquel. Recommend stopping seroquel and initiation of something for post stroke depression. - Return to the ED with any additional strokelike symptoms * Attachments The following attachments cannot be sent through Care Everywhere. * Stroke Prevention Ghlh-dj-Oqcp ([place]) * Heart-Healthy Eating Plan ([place]) * Fall Prevention in the Home Adult Akye-cz-Pjad ([place]) * Carotid Artery Disease Qdzx-xv-Kkfz ([place]) * Managing the Challenge of Quitting Smoking ([place]) documented in this encounter Progress Notes * Eva Daley APRN - 09/01/2024 3:00 PM EDT New Patient Office Visit Encounter Date: 08/18/2024 Patient Name: Albania Mata : 1960 PCP: Yonny Scott MD Referring Provider: Nieves Evans APRN Chief Complaint: Chief Complaint Patient presents with ??? Establish Care History of Present Illness: Albania Mata is a 64 y.o. 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 Symptoms reportedly began on 07/05/2024. She reportedly went to an OSH and was later discharged. She was recently seen by her PCP for ataxia. Outpatient EEG and MRI was ordered. Family noted paid the PCP and worsening right sided weakness on 07/19/2024. PCP recommended come to the ED for further evaluation. She was not a candidate for TNK due to LKW greater than [address] head 07/19/2024 with as well as encephalomalacia in the left occipital lobe. CTA H/N with severe stenosis of the R ICA as well as stenosis in the bilateral outdoor studies director. 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 TTE with no LAE, negative bubble study. Hemoglobin A1c 5.7. LDL was 47. P2 Y12 75. She was recommended to continue aspirin 81 mg daily as well asPlavix 75 mg for at least 90 days for secondary stroke prevention in the setting of severe iCAD. She was recommended to continue Crestor 40 mg nightly for secondary stroke prevention as well. NIH 10 prior to discharge. IPR was recommended at discharge. She was discharged to [facility] for rehab. Clinic visit 09/01/2024: Ms. Mata presents to clinic today with her brother and niece. She is undergoing PT with [facility]. She continues with difficulty with weakness and fine motor movement in her right upper extremity. RLE with some antigravity strength. She is walking with a walker. Discussed with her and her family that I recommend that she begin OT as well. Referral placed. She reports compliance with her aspirin, Plavix, and Crestor. Given her severe iCAD, I recommend thatshe continue DAPT indefinitely. She is withdrawn and struggling with her loss of independence. She does have family that have been supportive and with her 15/09. I discussed with the patient and her family to allow her to do things that she is able to do as that will help with her recovery. She reports that she is able to walk independently with her walker. She does have a shower chair. She is able to warm up prepared meals. We did discuss fall prevention and precautions at length. I recommend that if she is left alone, that she have a life alert or similar device to call emergency services incase of a fall. She is having difficulty with insomnia. She was started on Seroquel by her PCP. Shereports that it is not helping with her insomnia. 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 I recommend that she follow-up with her PCP regarding Seroquel use as it has not been effect miguel. I discussed that I am hesitant to start her on an SSRI with Seroquel as concurrent use can lead to QT prolongation and arrhythmia. I did place an ambulatory referral to sleep medicine given her insomnia and recent stroke. Blood pressure parameters discussed at length as well. Given her multifocal intracranial atherosclerotic disease, we recommend that she avoid hypotension. Systolic blood pressure goals recommended 110-140. Recommend that she stay well- hydrated and avoid constipation/straining. The patient and her family verbalized understanding. Stroke Risk Factors: carotid stenosis, hyperlipidemia, hypertension, and smoking Subjective Review of Systems: Review of Systems Constitutional: Negative for chills and fever. HENT: Negative for congestion and trouble swallowing. Eyes: Negative for photophobia and visual disturbance. Respiratory: Negative for cough and shortness of breath. Cardiovascular: Negative for chest pain and palpitations. Gastrointestinal: Negative for nausea and vomiting. Musculoskeletal: Positive for gait problem. Neurological: Positive for weakness. Past Medical History: Past Medical History: Diagnosis Date ??? Carotid artery disease ??? Chronic kidney disease ??? Depression 01/07/2023 ??? Disease of thyroid gland ??? Dyslipidemia 01/07/2023 ??? ETOH abuse ??? Fibromyalgia ??? HTN (hypertension) 01/07/2023 ??? Hyperlipidemia ??? Hypertension ??? Hypertrophic cardiomyopathy ??? Hypothyroidism 01/07/2023 ??? Memory loss ??? PVD (peripheral vascular disease) ??? Renal artery stenosis ??? Stroke ??? Subclavian artery stenosis, left ??? Tobacco use 01/07/2023 Past Surgical History: Past Surgical History: Procedure Laterality Date ??? BRONCHOSCOPY ??? CAROTID STENT ??? CAROTID STENT Left 01/07/2023 Procedure: Carotid Stent; Surgeon: Pedro Dwyer MD; Location: [facility]; Service: Interventional Radiology; Laterality: Left; ??? CEREBRAL ANGIOGRAM Bilateral 12/26/2022 Procedure: Cerebral angiogram; Surgeon: Pedro Dwyer MD; Location: [facility]; Service: Interventional Radiology; Laterality: Bilateral; ??? CHOLECYSTECTOMY ??? RENAL ARTERY STENT ??? TOTAL HIP ARTHROPLASTY Right Family History: History reviewed. No pertinent family history. Social History: Social History Socioeconomic History ??? Marital status: Tobacco Use ??? Smoking status: Former Current packs/day: 0.25 Average packs/day: 0.3 packs/day for 50.0 years (12.5 ttl pk-yrs) Types: Cigarettes Passive exposure: Past ??? Smokeless tobacco: Never Vaping Use ??? Vaping status: Never Used Substance and Sexual Activity ??? Alcohol use: Not Currently Alcohol/week: 21.0 standard drinks of alcohol Types: 21 Shots of liquor per week ??? Drug use: Never ??? Sexual activity: Never Medications: Current Outpatient Medications: ??? amLODIPine (NORVASC) 5 MG tablet, Take 1 tablet by mouth Daily., Disp: , Rfl: ??? aspirin 81 MG EC tablet, 1 tablet., Disp: , Rfl: ??? atorvastatin (LIPITOR) 80 MG tablet, Take 1 tablet by mouth Every Night., Disp: , Rfl: ??? clopidogrel (PLAVIX) 75 MG tablet, Take 1 tablet by mouth Daily., Disp: , Rfl: ??? cyclobenzaprine (FLEXERIL) 10 MG tablet, Take by mouth., Disp: , Rfl: ??? levothyroxine (SYNTHROID, LEVOTHROID) 50 MCG tablet, Take 1 tablet by mouth Daily., Disp: , Rfl: ??? lisinopril (PRINIVIL,ZESTRIL) 20 MG tablet, Take 1 tablet by mouth Daily., Disp: , Rfl: ??? mirtazapine (REMERON) 15 MG tablet, Take 1 tablet by mouth Every Night., Disp: , Rfl: ??? oxybutynin XL (DITROPAN-XL) 5 MG 24 hr tablet, Daily., Disp: , Rfl: ??? pantoprazole (PROTONIX) 20 MG EC tablet, Daily., Disp: , Rfl: ??? pramipexole (MIRAPEX) 1 MG tablet, Take 1 tablet by mouth Every Night., Disp: , Rfl: ??? QUEtiapine Fumarate 150 MG tablet, Daily., Disp: , Rfl: ??? Symbicort 160-4.5 MCG/ACT inhaler, Every 12 (Twelve) Hours., Disp: , Rfl: Allergies: Allergies Allergen Reactions ??? Cephalosporins Unknown - Low Severity ??? Penicillins Unknown - Low Severity Less than 2 y.o. - she almost Objective Physical Exam: Vital Signs: Vitals: 09/01/24 1447 BP: 111/68 Pulse: 73 Temp: 98.1 ??F (36.7 ??C) SpO2: 91% Weight: 58.5 kg (129 lb) Height: 160 cm (62.99 ) Body mass index is 22.86 kg/m??. Physical Exam Constitutional: General: She is not in acute distress. HENT: Head: Normocephalic and atraumatic. Eyes: General: Lids are normal. Extraocular Movements: Extraocular movements intact. Pupils: Pupils are equal, round, and reactive to light. Cardiovascular: Rate and Rhythm: Normal rate and regular rhythm. Pulmonary: Effort: Pulmonary effort is normal. No respiratory distress. Musculoskeletal: Cervical back: Normal range of motion and neck supple. Right lower leg: No edema. Left lower leg: No edema. Skin: General: Skin is warm and dry. Capillary Refill: Capillary refill takes less than 2 seconds. Neurological: Mental Status: She is alert and oriented to person, place, and time. Sensory: Sensory deficit present. Motor: Weakness present. Psychiatric: Speech: Speech normal. Neurological Exam Mental Status Alert. Oriented to person, place, time and situation. Oriented to person, place, and time. Speech is normal. Language is fluent with no aphasia. Cranial Nerves CN II: Visual salazar full to confrontation. CN III, IV, : Extraocular movements intact bilaterally. Normal lids and orbits bilaterally. Pupils equal round and reactive to light bilaterally. CN V: Facial sensation is normal. CN VII: Full and symmetric facial movement. CN IX, X: Palate elevates symmetrically CN XI: Shoulder shrug strength is normal. CN XII: Tongue midline without atrophy or fasciculations. Motor Strength is 5/5 in all four extremities except as noted. RUE drift, RLE with some antigravity strength. Sensory Light touch abnormality: Right-sided sensory deficit. Coordination Right: No obvious dysmetria out of proportion to weakness. Rapid alternating movement abnormality: Dysdiadochokinesia noted in the right hand.Left: Xeofuw-lv-iuvs normal. Rapid alternating movement normal. Gait Not observed as the patient does not have her walker.. NIH Stroke Scale 1a Level of consciousness: 0=alert; keenly responsive 1b. LOC questions: 0=Answers both questions correctly 1c. LOC commands: 0=Performs both tasks correctly 2. Best Gaze: 0=normal 3. Visual: 0=No visual loss 4. Facial Palsy: 0=Normal symmetric movement 5a. Motor left arm: 0=No drift, limb holds 90 (or 45) degrees for full 10 seconds 5b. Motor right arm: 1=Drift, limb holds 90 (or 45) degrees but drifts down before full 10 seconds:does not hit bed 6a. Motor left le=No drift, limb holds 90 (or 45) degrees for full 10 seconds 6b Motor right le=Some effort against gravity, limb cannot get to or maintain (if cured) 90 (or45) degrees, drifts down to bed, but has some effort against gravity 7. Limb Ataxia: 0=Absent 8. Sensory: 1=Mild to moderate sensory loss; patient feels pinprick is less sharp or is dull on theaffected side; there is a loss of superficial pain with pinprick but patient is aware She is being touched 9. Best Language: 0=No aphasia, normal 10. Dysarthria: 0=Normal 11. Extinction and Inattention: 0=No abnormality Total: 4 Modified [place] Score: 3 0 No Symptoms 1 No significant disability. Able to carry out all usual activities, despite some symptoms. 2 Slight disability. Able to look after own affairs without assistance, but unable to carry out allprevious activities. 3 Moderate disability. Requires some help, but able to walk unassisted. 4 Moderately severe disability. Unable to attend to own bodily needs without assistance, and unableto walk unassisted. 5 Severe disability. Requires constant nursing care and attention, bedridden, incontinent. 6 PHQ-9 Depression Screening Little interest or pleasure in doing things? Not at all Feeling down, depressed, or hopeless? Not at all PHQ-2 Total Score 0 Trouble falling or staying asleep, or sleeping too much? Feeling tired or having little energy? Poor appetite or overeating? Feeling bad about yourself - or that you are a failure or have let yourself or your family down? Trouble concentrating on things, such as reading the newspaper or watching television? Moving or speaking so slowly that other people could have noticed? Or the opposite - being so fidgety or restless that you have been moving around a lot more than usual? Thoughts that you would be better off , or of hurting yourself in some way? PHQ-9 Total Score If you checked off any problems, how difficult have these problems made it for you to do your work,take care of things at home, or get along with other people? STOP-Bang Score Have you been diagnosed with Sleep Apnea?: yes (pt does not wear a CPAP) Imaging Reviewed: Duplex Carotid Ultrasound CAR Addendum Date: 07/20/2024 ??? Right internal carotid artery demonstrates greater than 70% stenosis but less than near occlusion. ??? Right vertebral flow not noted. Vessel is possibly occluded. ??? Left carotid stent is patent without evidence of in-stent restenosis. ??? Antegrade left vertebral flow. MRI Brain Without Contrast Result Date: 07/19/2024 Impression: 1.Subacute lacunar type infarct left thalamic/posterior left basal ganglia area. 2.T2 signal changes involving the cerebral hemispheres, brainstem and cerebellar hemispheres that could reflect more chronic small vessel ischemic change. 3.Scattered foci of susceptibility artifact involving the cerebral hemispheres, brainstem and cerebellum. This could relate to amyloid angiopathy. Thisalso could be seen with hypertension. 4.Ballooning of the occipital horn left lateral ventricle that could relate to old insult involving the left occipital lobe. Electronically Signed: Tristan Carvalho MD 07/19/2024 9:06 PM EDT Workstation ID: [id number] XR Chest 1 View Result Date: 07/19/2024 Impression: No acute cardiopulmonary abnormality. Electronically Signed: Nathaniel Lombardo MD 07/19/2024 8:26 PM EDT Workstation ID: [id number] CT Angiogram Head w AI Analysis of LVO Result Date: 07/19/2024 1. Severe focal narrowing of the left posterior cerebral artery seen on axial image #374 series 8. 2. There is greater than 80% stenosis of the right carotid bulb and proximal right internal carotid artery. Multiple remote infarcts are noted. Electronically Signed: Jared Boateng MD 07/19/2024 8:23 TellwikiDT Workstation ID: [id number] CT Angiogram Neck Result Date: 07/19/2024 1. Severe focal narrowing of the left posterior cerebral artery seen on axial image #374 series 8. 2. There is greater than 80% stenosis of the right carotid bulb and proximal right internal carotid artery. Multiple remote infarcts are noted. Electronically Signed: Jared Boateng MD 07/19/2024 8:23 TellwikiDT Workstation ID: [id number] CT Head Without Contrast Result Date: 07/19/2024 1. Severe focal narrowing of the left posterior cerebral artery seen on axial image #374 series 8. 2. There is greater than 80% stenosis of the right carotid bulb and proximal right internal carotid artery. Multiple remote infarcts are noted. Electronically Signed: Jared Boateng MD 07/19/2024 8:23 REM ENTERPRISE Workstation ID: [id number] Results for orders placed during the hospital encounter of 07/19/24 Duplex Carotid Ultrasound CAR 07/20/2024 1:08 PM Interpretation Summary ??? Right internal carotid artery demonstrates greater than 70% stenosis but less than near occlusion. ??? Right vertebral flow not noted. Vessel is possibly occluded. ??? Left carotid stent is patent without evidence of in-stent restenosis. ??? Antegrade left vertebral flow. Results for orders placed during the hospital encounter of 07/19/24 Adult Transthoracic Echo Complete W/ Cont if Necessary Per Protocol (With Agitated Saline) Interpretation Summary ??? Left ventricular systolic function is normal. Estimated left ventricular EF = 60% ??? Left ventricular wall thickness is consistent with mild concentric hypertrophy. ??? No hemodynamically significant valvular disease present. ??? Saline test results are negative. Results for orders placed during the hospital encounter of 07/19/24 Duplex Carotid Ultrasound CAR 07/20/2024 1:08 PM Interpretation Summary ??? Right internal carotid artery demonstrates greater than 70% stenosis but less than near occlusion. ??? Right vertebral flow not noted. Vessel is possibly occluded. ??? Left carotid stent is patent without evidence of in-stent restenosis. ??? Antegrade left vertebral flow. Laboratory Results: Lipid Panel 07/20/2024 09:27 Lipid Panel Total Cholesterol 112 Triglycerides 131 HDL Cholesterol 42 VLDL Cholesterol 23 LDL Cholesterol 47 LDL/HDL Ratio 1.04 Assessment / Plan Assessment/Plan: Diagnoses and all orders for this visit: 1. History of stroke (Primary) - Continue aspirin 81 mg daily - Continue Plavix 75 mg daily - Continue rosuvastatin 40 mg nightly - SBP goals 110-150/80-90. Avoid low blood pressure due to severe narrowing of the arteries in yourbrain. Check twice daily and keep a log to your primary care provider - Stay well-hydrated - Avoid constipation/straining - Heart healthy diet - Fall precautions - Increase activity as tolerated -- Continue therapies as recommended -- Referral placed for OT -- Referral placed for sleep medicine - Continue to stop smoking - Follow-up with Dr. Dwyer as recommended [phone] - No driving. Follow-up with neuro-ophthalmology as scheduled 11/21/24 -- Follow up with primary care provider regarding seroquel. Recommend stopping seroquel and initiation of something for post stroke depression. - Return to the ED with any additional strokelike symptoms 2. Bilateral carotid artery stenosis - SBP goals 110-140/80-90. Avoid low blood pressure due to severe narrowing of the arteries in yourbrain. - Stay well-hydrated - Avoid constipation/straining - Follow-up with Dr. Dwyer as recommended 3. Tobacco use - Continue to stop smoking 4. Hyperlipidemia LDL goal <70 - Continue rosuvastatin 40 mg nightly Discussed the importance of medication compliance Plavix 75mg daily, Aspirin 81mg daily, and Crestor 40mg nightly and lifestyle modifications adequate control of blood pressure, adequate control of cholesterol (goal LDL <70), adequate control of glucose (<140, A1c goal <7), smoking cessation, increased physical activity, and implementation of healthy diet to help reduce the risk of future cerebrovascular events. Also discussed the signs symptoms that would warrant the patient return back to the emergency department including unilateral weakness, unilateral numbness, visual disturbances, loss of balance, speech difficulties, and/or a sudden severe headache. Patient and her family und erstanding. Follow Up: Return in about 3 months (around 12/02/2024). Eva Daley APRN, [facility] St[facility] documented in this encounter Plan of Treatment Upcoming Encounters Date Type Department Care Team (Late st Contact Info) Description 12/05/2024 11:30 AM EDT Office Visit [facility] [address] [facility] [address] [place] [id number] Julissa Kenney APRN [address] [facility] [address] [address] Scheduled Referrals Name Type Priority Associated Diagnoses Orde r Schedule Ambulatory Referral to Sleep Medicine Outpatient Referral Routine History of stroke Insomnia, unspecified type Ordered: 09/01/2024 documented as of this encounter Visit Diagnoses Diagnosis History of stroke- Primary Transient ischemic attack (TIA), and cerebral infarction without residual deficits Bilateral carotid artery stenosis Occlusion and stenosis of carotid artery without mention of cerebral infarction Tobacco use Hyperlipidemia LDL goal <70 Other and unspecified hyperlipidemia Depression as late effect of cerebrovascular accident (CVA) Insomnia, unspecified type Right sided weakness documented in this encounter Care Teams Streaming Media Specialist Relationship Specialty Start Date End Date Yonny Scott MD [address] [facility] [address] [place] [address] PCP - General Adolescent Medicine 07/19/24 documented as of this encounter
--- OUTSIDE RECORDS SUMMARY | 2024-09-21 11:45 | XMS_ITS ---
Author Organization [facility] D [facility] Address [address] [place] [address] Care Team Providers Care Senior Architectural Designer Name Role Phone Yonny Scott Primary Care Provider [phone] Reanna Perdomo [phone] Allergies Allergen (clinical drug ingredient) Drug/Non Drug Allergy documented on EMR Reaction Allergy Type Onset Date Status Penicillin Unknown Drug Allergy Active Results Component Value Reference Range Notes THYROID PANEL WITH TSH (7444 ) Reviewed date:09/26/2024 03:13:21 PM Interpretation: Performing Lab:[place] [email or web address] [id number] [id number] Micheal Hilton Notes/Report: NON-FASTING; NON-FASTING; NON-FASTING; NON-FASTING; NON-FAST T3 UPTAKE 28 22-35 % T4 (THYROXINE), TOTAL 6.1 5.1-11.9 mcg/dL FREE T4 INDEX (T7) 1.7 1.4-3.8 TSH 19.85 0.40-4.50 mIU/L COMPREHENSIVE METABOLIC PANE L (39403) Reviewed date:09/26/2024 03:13:21 PM Interpretation: Performing Lab:[place] [employer] [facility] [id number] [facility]James [phone] Micheal Hilton Notes/Report: NON-FASTING; NON-FASTING; NON-FASTING; NON-FASTING; NON-FAST GLUCOSE 92 65-99 mg/dL Fasting reference interval UREA NITROGEN (BUN) 14 7-25 mg/dL CREATININE 1.01 0.50-1.05 mg/dL EGFR 61 > OR = 60 mL/min/1.73m2 BUN/CREATININE RATIO SEE NOTE: 6-22 (calc) Not Reported: BUN and Creatinine are within reference range. SODIUM 142 135-146 mmol/L POTASSIUM 3.8 3.5-5.3 mmol/L CHLORIDE 106 98-110 mmol/L CARBON DIOXIDE 30 20-32 mmol/L CALCIUM 9.0 8.6-10.4 mg/dL PROTEIN, TOTAL 6.9 6.1-8.1 g/dL ALBUMIN 4.2 3.6-5.1 g/dL GLOBULIN 2.7 1.9-3.7 g/dL (calc) ALBUMIN/GLOBULIN RATIO 1.6 1.0-2.5 (calc) BILIRUBIN, TOTAL 0.3 0.2-1.2 mg/dL ALKALINE PHOSPHATASE 147 37-153 U/L AST 14 10-35 U/L ALT 14 6-29 U/L CBC (INCLUDES DIFF/PLT) (639 9) Reviewed date:09/26/2024 03:13:21 PM Interpretation: Performing Lab:[place], [facility] [id number], [facility] HospitalCobaWJ[address] Micheal Hilton Notes/Report: NON-FASTING; NON-FASTING; NON-FASTING; NON-FASTING; NON-FAST WHITE BLOOD CELL COUNT 8.5 3.8-10.8 Thousand/ uL RED BLOOD CELL COUNT 4.37 3.80-5.10 Million/uL HEMOGLOBIN 12.0 11.7-15.5 g/dL HEMATOCRIT 39.9 35.0-45.0 % MCV 91.3 80.0-100.0 fL MCH 27.5 27.0-33.0 pg MCHC 30.1 32.0-36.0 g/dL For adults, a slight decrease in the calculated MCHC value (in the range of 30 to 32 g/dL) is most likely not clinically significant; however, it should be interpreted with caution in correlation with other red cell parameters and the patient's clinical condition. RDW 12.6 11.0-15.0 % PLATELET COUNT 293 140-400 Thousand/uL MPV 10.1 7.5-12.5 fL ABSOLUTE NEUTROPHILS 5032 7315-2543 cells/uL ABSOLUTE LYMPHOCYTES 2559 850-3900 cells/uL ABSOLUTE MONOCYTES 621 200-950 cells/uL ABSOLUTE EOSINOPHILS 230 15-500 cells/uL ABSOLUTE BASOPHILS 60 0-200 cells/uL NEUTROPHILS 59.2 LYMPHOCYTES 30.1 MONOCYTES 7.3 EOSINOPHILS 2.7 BASOPHILS 0.7 VITAMIN B12/FOLATE, SERUM PA ADA (7065) Reviewed date:09/26/2024 03:13:21 PM Interpretation: Performing Lab:[place] [facility], [place] RzayYA[address] Micheal Hilton Notes/Report: NON-FASTING; NON-FASTING; NON-FASTING; NON-FASTING; NON-FAST VITAMIN B12 703 176-0090 pg/mL FOLATE, SERUM 4.4 Reference Range Low: <3.4 Borderline: 3.4-5.4 Normal: >5.4 FERRITIN (457) Reviewed date:09/26/2024 03:13:22 PM Interpretation: Performing Lab:[place] [facility] [facility], [facility] Hospital[facility]bygGW[address] Micheal Hilton Notes/Report: NON-FASTING; NON-FASTING; NON-FASTING; NON-FASTING; NON-FAST FERRITIN 41 16-288 ng/mL VITAMIN D,25-OH,TOTAL,IA (17 306) Reviewed date:09/26/2024 03:13:22 PM Interpretation: Performing Lab:[place] [facility] [id number], [facility] HospitalJaieUU[address] Micheal Hilton Notes/Report: NON-FASTING; NON-FASTING; NON-FASTING; NON-FASTING; NON-FAST VITAMIN D,25-OH,TOTAL,IA 29 30-100 ng/mL Vitamin D Status 25-OH Vitamin D: Deficiency: <20 ng/mL Insufficiency: 20 - 29 ng/mL Optimal: > or = 30 ng/mL For 25-OH Vitamin D testing on patients on D2-supplementation and patients for whom quantitation of D2 and D3 fractions is required, the QuestAssureD(TM) 25-OH VIT D, (D2,D3), LC/MS/MS is recommended: order code 01358 (patients >2yrs). See Note 1 Note 1 For additional information, please refer to http://education.[facility]/faq/NMT665 (This link is being provided for informational/ educational purposes only.) REASON FOR VISIT 4 Week follow up, numbness in both feet Medications Medication SIG (Take, Route, Frequency, Duration) Notes Start Date End Date Status Clopidogrel Bisulfate 75 MG 1 tablet Ora lly Once a day; Duration: 90 days 08/31/2024 Active oxyBUTYnin Chloride ER 5 MG 1 tablet Ora lly Once a day; Duration: 90 days 08/31/2024 Active QUEtiapine Fumarate 100 MG 1 tablet at b edtime Orally Once a day 08/22/2024 Active Pantoprazole Sodium 20 MG 1 tablet 1/2 t o 1 hour before morning meal Orally Once a day; Duration: 90 days 08/31/2024 Active FLUoxetine HCl 20 MG 1 capsule Orally On ce a day; Duration: 30 day(s) 09/21/2024 Active Pramipexole Dihydrochloride 1 MG 1 tablet Orally three times a day prn; Duration: 90 days Active Mirtazapine 15 MG 1 tablet at bedtime Orally Once a day; Duration: 90 days 07/11/2024 Active Levothyroxine Sodium 50 MCG 1 tablet in the morning on an empty stomach Orally Once a day; Duration: 9 days Active Atorvastatin Calcium 80 MG 1 tablet Oral ly Once a day; Duration: 90 days Active Aspirin 81 MG 1 tablet Orally Once a day Active Lisinopril 10 MG 1 tablet Orally Once a day; Duration: 90 days Active amLODIPine Besylate 5 mg one tab orally daily; Duration: 90 days Active Symbicort 160-4.5 MCG/ACT two puffs Inha lation twice a day; Duration: 30 days 2024 Active Social History Tobacco Use: Social History Observation Description Date Details (start date - stop date) Former Smoker NA - NA Smoking: Question Answer Notes Are you a: former smoker How long has it been since you last smoked? 6-12 months Vital Signs Temperature 98.0 degrees Fahrenheit 09/22/19 25 Heart Rate 76 /min 09/21/2024 Blood pressure systolic 112 mm Hg 09/22/19 25 Blood pressure diastolic 72 mm Hg 025 Height 63.5 in 09/21/2024 Weight 126 lbs 09/21/2024 BMI 21.97 kg/m2 09/21/2024 Encounters Encounter Location Date Provider Diagnosis [facility] [address] [place], [place] [address] 09/21/2024 Yonny Scott Idiopathic periphera l neuropathy G60.9 ; Paresthesia R20.2 ; Mood disorder F39 and Insomnia, unspecified type G47.00 Assessments Encounter Date Diagnosis (ICD Code) Assessment Notes Treatment Notes Treatment Clinical Notes Section Notes 09/21/2024 Idiopathic peripheral neuropathy (ICD-10 - G60.9) We will check her B12, ferritin, folate, magnesium, CBC, CMP, Vitamin D and thyroid panel levels today in lab. 09/21/2024 Paresthesia (ICD-10 - R20.2) We will check her B12, ferritin, folate, magnesium, CBC, Vitamin D, CMP and thyroid panel levels today in lab. 09/21/2024 Mood disorder (ICD-10 - F39) We will start her on 20 mg of fluoxetine every morning to help with her mood. We will f/u in two weeks. Reviewed neuronote-they expressed some concern about starting SSRI with Seroquel. Certainly appreciate this. However patient is only on 100 mg dose. Given her significant potential for exacerbation of mood disorder I think maintaining Seroquel at 100 while initiating fluoxetine is reasonable with close observation 09/21/2024 Insomnia, unspecified type (ICD-10 - G47.00) We will keep her on 100 mg of seroquel every night to help with her insomnia and night terrors she experiences. Sleep has been a long-term issue for her. Family reports that they are waiting to hear from [facility] about a sleep medicine referral Plan Of Treatment Medication Medication Name Sig Start Date Stop Date Notes QUEtiapine Fumarate 100 MG 1 tablet at b edtime Orally Once a day 08/22/2024 FLUoxetine HCl 20 MG 1 capsule Orally On ce a day; Duration: 30 day(s) 09/21/2024 Treatment Notes Assessment Notes Idiopathic peripheral neuropathy We will check her B12, ferritin, folate, magnesium, CBC, CMP, Vitamin D and thyroid panel levels today in lab. Paresthesia We will check her B1 2, ferritin, folate, magnesium, CBC, Vitamin D, CMP and thyroid panel levels today in lab. Mood disorder We will start her on 20 mg of fluoxetine every morning to help with her mood. We will f/u in two weeks. Reviewed neuronote-they expressed some concern about starting SSRI with Seroquel. Certainly appreciate this. However patient is only on 100 mg dose. Given her significant potential for exacerbation of mood disorder I think maintaining Seroquel at 100 while initiating fluoxetine is reasonable with close observation Insomnia, unspecified type We will keep her on 100 mg of seroquel every night to help with her insomnia and night terrors she experiences. Sleep has been a long-term issue for her. Family reports that they are waiting to hear from [facility] about a sleep medicine referral Next Appt Details Follow Up: prn, Reason: Provider Name:Yonny Scott, 11/16/2024 09:30:00 AM, [address], [address], [place], [address], Progress Notes * [place] MATA RaeDOB:[birth year] (64 yo F)Acc No.[id number]:09/21/2024 Progress Notes Patient: [place] CHISHOLM Provider: Day Scott MD :1960 A ge:64 Y S ex:Female Date:09/21/2024 Address:[address] [facility] [address] [id number] Subjective: * Chief Complaints: * 1 . 4 Week follow up, numbness in both feet. * HPI: g en: Ms. Mata presents for a four week f/u. She presents with her niece and brother. She has been on 100mg of s eroquel and has noticed no improvement in her sleep. She still doesn't sleep well, but her sister has noticed that her sleep terrors have stopped. She has been feeling extremely depressed for the past couple weeks. She feels hopeless, sad, and crying all the time. Because of the loss of her independence, she has been feeling irritable and d own. S he saw her neurologist and they recommended that she stops the seroquel and starts escitalopram and trazadone for her mood and insomnia. They also recommended completing a sleep study. She is also experiencing tingling in her left foot that has been going on for the past couple weeks. * Medical History: H ypothyroidism, Fibromyalgia, HTN, Insomnia, Degenerative Disc Disease, Restless Leg Syndrome, Possible seizure, Alcoholism - recovering, Chronic pain, myofascial and degenerative joint disease, Stroke 03/2020, Stroke 11/2022. * Surgical History: i nfecton in lungs taken out 1996, tonsillectomy , surgery on toes , carpal tunnel , tubal ligation , gallbladder , hole in right eardrum fixed , cyst taken off of right breast , rt hip replacement 07/28/2016. * Hospitalization/Major Diagno stic Procedure: p neumonia x 8-10 times , child x 2 times , broken pelvic bone , shut down kidneys , rt hip replacement 07/28/2016, [facility]- stroke 11/2022, [facility] 05/2024, Stroke 07/19/2024. * Family History: F ather: , maybe lung cancer. M other: , diabetes, may have had some kind of cancer. P aternal Grand Father: , diagnosed with Diabetes. P aternal Grand Mother: . M aternal Grand Father: . M aternal Grand Mother: . P aternal uncle: . P aternal aunt: alive. M aternal uncle: . M aternal aunt: . S ibmili: alive, brother back problems, htn, heart surgery, knees replaced, diabetes, CAD. C hilenrique: alive, back problem. 4 brother(s) , 4 sister(s) - healthy. 2 son(s) - healthy. . * Social History: S moking A re you a: f ormer smoker, H ow long has it been since you last smoked??6-12 months. R ecreational drug use: no. Exercise: no. Home smoke detector use: yes. Caffeine: yes, 1 soda daily. Living Will: Yes. Alcohol: no, recovering alcoholic- 10 years sober. Sexually active: yes. Travel outside [place]: no. Occupation: disabled. * Medications: T aking Aspirin 81 MG Tablet Delayed Release 1 tablet Orally Once a day , Taking Lisinopril 10 MG Tablet 1 tablet Orally Once a day , Taking Symbicort 160-4.5 MCG/ACT Aerosol two puffs Inhalation twice a day , Taking QUEtiapine Fumarate 150 MG Tablet 1 tablet at bedtime Orally Once a day , Taking amLODIPine Besylate 5 mg Tablet one tab orally daily , Taking Pramipexole Dihydrochloride 1 MG Tablet 1 tablet Orally three times a day prn , Taking Atorvastatin Calcium 80 MG Tablet 1 tablet Orally Once a day , Taking Levothyroxine Sodium 50 MCG Tablet 1 tablet in the morning on an empty stomach Orally Once a day , Taking Mirtazapine 15 MG Tablet 1 tablet at bedtime Orally Once a day , Taking Clopidogrel Bisulfate 75 MG Tablet 1 tablet Orally Once a day , Taking Pantoprazole Sodium 20 MG Tablet Delayed Release 1 tablet 1/2 to 1 hour before morning meal Orally Once a day , Taking oxyBUTYnin Chloride ER 5 MG Tablet Extended Release 24 Hour 1 tablet Orally Once a day , Discontinued Lisinopril 10 MG Tablet 1 tablet Orally Once a day * Allergies: P enicillin. Objective: * Vitals: N urse: be, Pain: 0, Temp: 98.0, RR: 16, HR: 76, BP: 112/72, Ht: 63.5, Wt: 126, BMI:21.97. * Examination: G eneral Examination: General P leasant and Cooperative, NAD on RA,. Chest: n ormal shape and expansion. Heart: R egular Rate and Rhythm, no murmur, rubs or gallops. Lungs: L CTAB, No wheezes, crackles or rhonchi, Good air movement,. Assessment: * Assessment: 1. I diopathic peripheral neuropathy - G60.9 (Primary) 2 . P aresthesia - R20.2 3 . M ood disorder - F39 4 . I nsomnia, unspecified type - G47.00 Plan: * Treatment: Value Reference Range T 3 UPTAKE 28 22-35 - % * T 4 (THYROXINE), TOTAL 6.1 5.1-11.9 - mcg/dL * F REE T4 INDEX (T7) 1.7 1.4-3.8 - * T SH 19.85 H 0.40-4.50 - mIU/L * Belen Love 09/26/2024 03: 09:33 PM EDT > Gallo-pts brother informed, Rx sentThis lab was reviewed by Belen Love on 09/26/2024 at 15:13 PM EDT ?LAB: COMPREHENSIVE METABOLIC PANEL (39343)* Value Reference Range G LUCOSE 92 65-99 - mg/dL * U PETE NITROGEN (BUN) 14 7-25 - mg/dL * C REATININE 1.01 0.50-1.05 - mg/dL * B UN/CREATININE RATIO SEE NOTE: 6-22 - (calc) * S ODIUM 142 135-146 - mmol/L * P OTASSIUM 3.8 3.5-5.3 - mmol/L * C HLORIDE 106 98-110 - mmol/L * C ARBON DIOXIDE 30 20-32 - mmol/L * C ALCIUM 9.0 8.6-10.4 - mg/dL * P ROTEIN, TOTAL 6.9 6.1-8.1 - g/dL * A LBUMIN 4.2 3.6-5.1 - g/dL * G LOBULIN 2.7 1.9-3.7 - g/dL (calc ) * A LBUMIN/GLOBULIN RATIO 1.6 1.0-2.5 - (calc) * B ILIRUBIN, TOTAL 0.3 0.2-1.2 - mg/dL * A LKALINE PHOSPHATASE 147 37-153 - U/L * A ST 14 10-35 - U/L * A LT 14 6-29 - U/L * E GFR 61 > OR = 60 - mL/min/1 .73m2 * Belen Love 09/26/2024 03: 09:33 PM EDT > Gallo-pts brother informed, Rx sentThis lab was reviewed by Belen Love on 09/26/2024 at 15:13 PM EDT ?LAB: CBC (INCLUDES DIFF/PLT) (0941)* Value Reference Range W HAROON BLOOD CELL COUNT 8.5 3.8-10.8 - Thousan d/uL * R ED BLOOD CELL COUNT 4.37 3.80-5.10 - Million/ uL * H EMOGLOBIN 12.0 11.7-15.5 - g/dL * H EMATOCRIT 39.9 35.0-45.0 - % * M CV 91.3 80.0-100.0 - fL * M CH 27.5 27.0-33.0 - pg * M CHC 30.1 L 32.0-36.0 - g/dL * R DW 12.6 11.0-15.0 - % * P LATELET COUNT 293 140-400 - Thousand/u L * N EUTROPHILS 59.2 - % * A BSOLUTE NEUTROPHILS 5032 7400-0151 - cells/uL * L YMPHOCYTES 30.1 - % * A BSOLUTE LYMPHOCYTES 2559 850-3900 - cells/uL * M ONOCYTES 7.3 - % * A BSOLUTE MONOCYTES 621 200-950 - cells/uL * E OSINOPHILS 2.7 - % * A BSOLUTE EOSINOPHILS 230 15-500 - cells/uL * B ASOPHILS 0.7 - % * A BSOLUTE BASOPHILS 60 0-200 - cells/uL * M PV 10.1 7.5-12.5 - fL * Belen Love 09/26/2024 03: 09:33 PM EDT > Gallo-pts brother informed, Rx sentThis lab was reviewed by Belen Love on 09/26/2024 at 15:13 PM EDT ?LAB: VITAMIN B12/FOLATE, SERUM PANEL (7065)* Value Reference Range F OLATE, SERUM 4.4 L - ng/mL * V ITAMIN B12 949 172-5486 - pg/mL * Belen Love 09/26/2024 03: 09:33 PM EDT > Gallo-pts brother informed, Rx sentThis lab was reviewed by Belen Love on 09/26/2024 at 15:13 PM EDT ?LAB: FERRITIN (457)* Value Reference Range F ERRITIN 41 16-288 - ng/mL * Belen Love 09/26/2024 03: 09:33 PM EDT > Gallo-pts brother informed, Rx sentThis lab was reviewed by Belen Love on 09/26/2024 at 15:13 PM EDT ?LAB: VITAMIN D,25-OH,TOTAL,IA (90705)* Value Reference Range V ITAMIN D,25-OH,TOTAL,IA 29 L 30-100 - ng/mL * Belen Love 09/26/2024 03: 09:33 PM EDT > Gallo-pts brother informed, Rx sentThis lab was reviewed by Belen Love on 09/26/2024 at 15:13 PM EDT Notes: We will check her B12, ferritin, folate, magnesium, CBC, CMP, Vitamin D and thyroid panel levels today in lab. ??2.?Paresthesia?LAB: THYROID PANEL WITH TSH (7444)* Value Reference Range T 3 UPTAKE 28 22-35 - % * T 4 (THYROXINE), TOTAL 6.1 5.1-11.9 - mcg/dL * F REE T4 INDEX (T7) 1.7 1.4-3.8 - * T SH 19.85 H 0.40-4.50 - mIU/L * Belen Love 09/26/2024 03: 09:33 PM EDT > Gallo-pts brother informed, Rx sentThis lab was reviewed by Belen Love on 09/26/2024 at 15:13 PM EDT ?LAB: COMPREHENSIVE METABOLIC PANEL (30431)* Value Reference Range G LUCOSE 92 65-99 - mg/dL * U PETE NITROGEN (BUN) 14 7-25 - mg/dL * C REATININE 1.01 0.50-1.05 - mg/dL * B UN/CREATININE RATIO SEE NOTE: 6-22 - (calc) * S ODIUM 142 135-146 - mmol/L * P OTASSIUM 3.8 3.5-5.3 - mmol/L * C HLORIDE 106 98-110 - mmol/L * C ARBON DIOXIDE 30 20-32 - mmol/L * C ALCIUM 9.0 8.6-10.4 - mg/dL * P ROTEIN, TOTAL 6.9 6.1-8.1 - g/dL * A LBUMIN 4.2 3.6-5.1 - g/dL * G LOBULIN 2.7 1.9-3.7 - g/dL (calc ) * A LBUMIN/GLOBULIN RATIO 1.6 1.0-2.5 - (calc) * B ILIRUBIN, TOTAL 0.3 0.2-1.2 - mg/dL * A LKALINE PHOSPHATASE 147 37-153 - U/L * A ST 14 10-35 - U/L * A LT 14 6-29 - U/L * E GFR 61 > OR = 60 - mL/min/1 .73m2 * Belen Love 09/26/2024 03: 09:33 PM EDT > Gallo-pts brother informed, Rx sentThis lab was reviewed by Belen Love on 09/26/2024 at 15:13 PM EDT ?LAB: CBC (INCLUDES DIFF/PLT) (2514)* Value Reference Range W HAROON BLOOD CELL COUNT 8.5 3.8-10.8 - Thousan d/uL * R ED BLOOD CELL COUNT 4.37 3.80-5.10 - Million/ uL * H EMOGLOBIN 12.0 11.7-15.5 - g/dL * H EMATOCRIT 39.9 35.0-45.0 - % * M CV 91.3 80.0-100.0 - fL * M CH 27.5 27.0-33.0 - pg * M CHC 30.1 L 32.0-36.0 - g/dL * R DW 12.6 11.0-15.0 - % * P LATELET COUNT 293 140-400 - Thousand/u L * N EUTROPHILS 59.2 - % * A BSOLUTE NEUTROPHILS 5032 7325-8430 - cells/uL * L YMPHOCYTES 30.1 - % * A BSOLUTE LYMPHOCYTES 2559 850-3900 - cells/uL * M ONOCYTES 7.3 - % * A BSOLUTE MONOCYTES 621 200-950 - cells/uL * E OSINOPHILS 2.7 - % * A BSOLUTE EOSINOPHILS 230 15-500 - cells/uL * B ASOPHILS 0.7 - % * A BSOLUTE BASOPHILS 60 0-200 - cells/uL * M PV 10.1 7.5-12.5 - fL * Belen Love 09/26/2024 03: 09:33 PM EDT > Gallo-pts brother informed, Rx sentThis lab was reviewed by Belen Love on 09/26/2024 at 15:13 PM EDT ?LAB: VITAMIN B12/FOLATE, SERUM PANEL (3278)* Value Reference Range F OLATE, SERUM 4.4 L - ng/mL * V ITAMIN B12 824 506-8125 - pg/mL * Belen Love 09/26/2024 03: 09:33 PM EDT > Gallo-pts brother informed, Rx sentThis lab was reviewed by Belen Love on 09/26/2024 at 15:13 PM EDT ?LAB: FERRITIN (457)* Value Reference Range F ERRITIN 41 16-288 - ng/mL * Belen Love 09/26/2024 03: 09:33 PM EDT > Gallo-pts brother informed, Rx sentThis lab was reviewed by Belen Love on 09/26/2024 at 15:13 PM EDT ?LAB: VITAMIN D,25-OH,TOTAL,IA (23528)* Value Reference Range V ITAMIN D,25-OH,TOTAL,IA 29 L 30-100 - ng/mL * Belen Love 09/26/2024 03: 09:33 PM EDT > Gallo-pts brother informed, Rx sentThis lab was reviewed by Belen Love on 09/26/2024 at 15:13 PM EDT Notes: We will check her B12, ferritin, folate, magnesium, CBC, Vitamin D, CMP and thyroid panel levels today in lab. ??3.?Mood disorder? Decrease QUEtiapine Fumarate Tablet, 100 MG, 1 tablet at bedtime, Orally, Once a day;?Start FLUoxetine HCl Capsule, 20 MG, 1 capsule, Orally, Once a day, 30 day(s), 30.?? Notes: We will start her on 20 mg of fluoxetine every morning to help with her mood. We will f/u intwo weeks. Reviewed neuronote-they expressed some concern about starting SSRI with Seroquel. Certainly appreciate this. However patient is only on 100 mg dose. Given her significant potential for exacerbation of mood disorder I think maintaining Seroquel at 100 while initiating fluoxetine is reasonable with close observation??4.?Insomnia, unspecified type? Notes: We will keep her on 100 mg of seroquel every night to help with her insomnia and night terrors she experiences. Sleep has been a long-term issue for her. Family reports that they are waiting to hear from [facility] about a sleep medicine referral ? * Follow Up: p rn * * Sign off status: Completed true * Provider: Day Scott MD Date: 09/21/2024 Generated for Mik olmos/Karen/eTransmitting on: 0 10/29/2024 11:19 PM EDT History and Physical Notes * HPI (History of Present Illness) Category Sub-Category Detail Notes Category Not es gen Ms. Mata presents for a four week f/u. She presents with her niece and brother. She has been on 100mg of seroquel and has noticed no improvement in her sleep. She still doesn't sleep well, but her sister has noticed that her sleep terrors have stopped. She has been feeling extremely depressed for the past couple weeks. She feels hopeless, sad, and crying all the time. Because of the loss of her independence, she has been feeling irritable and down. She saw her neurologist and they recommended that she stops the seroquel and starts escitalopram and trazadone for her mood and insomnia. They also recommended completing a sleep study. She is also experiencing tingling in her left foot that has been going on for the past couple weeks. Examination Category Sub-Category Detail Notes Category Not es General Examination Heart: Regular Rate and Rhythm, no murmur, rubs or gallops Lungs: LCTAB, No wheezes, c rackles or rhonchi, Good air movement, Chest: normal shape and exp ansion General Pleasant and Coopera tive, NAD on RA,
--- OUTSIDE RECORDS SUMMARY | 2024-10-05 06:30 | XMS_ITS ---
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 Name Role Phone Yonny Scott Primary Care Provider Reanna Perdomo [phone] Allergies Allergen (clinical drug ingredient) Drug/Non Drug Allergy documented on EMR Reaction Allergy Type Onset Date Status Penicillin Unknown Drug Allergy Active REASON FOR VISIT 2 week follow up Medications Medication SIG (Take, Route, Frequency, Duration) Notes Start Date End Date Status QUEtiapine Fumarate 100 MG 1 tablet at b edtime Orally Once a day 08/22/2024 Active oxyBUTYnin Chloride ER 5 MG 1 tablet Ora lly Once a day; Duration: 90 days 08/31/2024 Active FLUoxetine HCl 20 MG 1 capsule Orally On ce a day; Duration: 30 day(s) 09/21/2024 Active Folic Acid 800 MCG 1 tablet Orally Once a day; Duration: 30 day(s) 09/26/2024 Active Levothyroxine Sodium 75 MCG 1 tablet in the morning on an empty stomach Orally Once a day; Duration: 30 days 09/26/2024 Active Pantoprazole Sodium 20 MG 1 tablet 1/2 t o 1 hour before morning meal Orally Once a day; Duration: 90 days 08/31/2024 Active Clopidogrel Bisulfate 75 MG 1 tablet Ora lly Once a day; Duration: 90 days 08/31/2024 Active Pramipexole Dihydrochloride 1 MG 1 tablet Orally three times a day prn; Duration: 90 days Active Mirtazapine 15 MG 1 tablet at bedtime Orally Once a day; Duration: 90 days 07/11/2024 Active Atorvastatin Calcium 80 MG 1 tablet Oral ly Once a day; Duration: 90 days Active Lisinopril 10 MG 1 tablet Orally Once a day; Duration: 90 days Active Aspirin 81 MG 1 tablet Orally Once a day Active Symbicort 160-4.5 MCG/ACT two puffs Inha lation twice a day; Duration: 30 days 2024 Active amLODIPine Besylate 5 mg one tab orally daily; Duration: 90 days Active Social History Tobacco Use: Social History Observation Description Date Details (start date - stop date) Former Smoker NA - NA Smoking: Question Answer Notes Are you a: former smoker How long has it been since you last smoked? 6-12 months Vital Signs Temperature 97.6 degrees Fahrenheit 10/06/19 25 Heart Rate 84 /min 10/05/2024 Blood pressure systolic 120 mm Hg 10/06/19 25 Blood pressure diastolic 62 mm Hg 025 Height 63.5 in 10/05/2024 Weight 129 lbs 10/05/2024 BMI 22.49 kg/m2 10/05/2024 Encounters Encounter Location Date Provider Diagnosis [facility] [address] [place], [place] [address] 10/05/2024 Yonny Scott History of CVA (cerebrovascular accident) Z86.73 ; Essential hypertension I10 ; Hemiparesis affecting right side as late effect of cerebrovascular accident I69.351 and Mood disorder F39 Assessments Encounter Date Diagnosis (ICD Code) Assessment Notes Treatment Notes Treatment Clinical Notes Section Notes 10/05/2024 History of CVA (cerebrovascular accident) (ICD-10 - Z86.73) Blood pressure under good control, remains on antiplatelet agent. No evidence of recurrence of stroke disease 10/05/2024 Essential hypertension (ICD-10 - I10) Blood pressure stable and well-controlled 10/05/2024 Hemiparesis affecting right side as late effect of cerebrovascular accident (ICD-10 - I69.351) Continuing to do home PT, using walker, no falls 10/05/2024 Mood disorder (ICD-10 - F39) Fluoxetine seems to have helped augment her Seroquel. No changes in plan at this point. Follow-up 6 weeks Plan Of Treatment Treatment Notes Assessment Notes History of CVA (cerebrovascular accident ) Blood pressure under good control, remains on antiplatelet agent. No evidence of recurrence of stroke disease Essential hypertension Blood pressure st able and well-controlled Hemiparesis affecting right side as late effect of cerebrovascular accident Continuing to do home PT, using walker, no falls Mood disorder Fluoxetine seems to have helped augment her Seroquel. No changes in plan at this point. Follow-up 6 weeks Next Appt Details Follow Up: prn, Reason: Provider Name:Yonny Scott, 11/16/2024 09:30:00 AM, [address] [facility] [address], [address], [place], [address], Progress Notes * [place] JORDAN RaeDOB:[birth year] (64 yo F)Acc No.[id number]:10/05/2024 Progress Notes Patient: [place] CHISHOLM Provider: Day Scott MD :1960 A ge:64 Y S ex:Female Date:10/05/2024 Address:[id number] Subjective: * Chief Complaints: * 1 . 2 week follow up. * HPI: g en: [place] is here with her brother. Overall she feels much better. She did not have any side effects of fluoxetine. Thinks that she is sleeping a little bit better. Her brother reports that they had a family reunion and this helped her reconnect with some family members she had not seen in a while. Blood pressure has been well-controlled, she is eating little better. * Medical History: H ypothyroidism, Fibromyalgia, HTN, [...] down kidneys , rt hip replacement 07/28/2016, [facility]- stroke 11/2022, H 05/2024, Stroke 07/19/2024. * Family History: F [...] heart surgery, knees replaced, diabetes, CAD. C elia: alive, back problem. 4 brother(s) , 4 [...] puffs Inhalation twice a day , Taking amLODIPine Besylate 5 mg Tablet one tab orally daily , Taking Pramipexole Dihydrochloride 1 MG Tablet 1 tablet Orally three times a day prn , Taking Atorvastatin Calcium 80 MG Tablet 1 tablet Orally Once a day , Taking Mirtazapine [...] tablet Orally Once a day , Taking QUEtiapine Fumarate 100 MG Tablet 1 tablet at bedtime Orally Once a day , Taking FLUoxetine HCl 20 MG Capsule 1 capsule Orally Once a day , Taking Levothyroxine Sodium 75 MCG Tablet 1 tablet in the morning on an empty stomach Orally Once a day , Taking Folic Acid 800 MCG Tablet 1 tablet Orally Once a day , Medication List reviewed and reconciled with the patient * Allergies: P enicillin. Objective: * Vitals: N urse: be, Pain: 0, Temp: 97.6, RR: 16, HR: 84, BP: 120/62, Ht: 63.5, Wt: 129, BMI:22.49. * Examination: G eneral Examination: General P leasant and Cooperative, NAD on RA,. Chest: n ormal shape and expansion. Heart: R egular Rate and Rhythm, no murmur, rubs or gallops. Lungs: L CTAB, No wheezes, crackles or rhonchi, Good air movement,. U sing walker, wearing AFO brace on her right leg. Assessment: * Assessment: 1. H istory of CVA (cerebrovascular accident) - Z86.73 (Primary) 2 . E ssential hypertension - I10 3 . H emiparesis affecting right side as late effect of cerebrovascular accident - I69.351 4 . M ood disorder - F39 Plan: * Treatment: 2. E ssential hypertension Notes: Blood pressure stable and well-controlled 3. H emiparesis affecting right side as late effect of cerebrovascular accident Notes: Continuing to do home PT, using walker, no falls 4. M ood disorder Notes: Fluoxetine seems to have helped augment her Seroquel. No changes in plan at this point. Follow-up 6 weeks * Follow Up: p rn * * Sign off status: Completed true * Provider: Day Scott MD Date: 10/05/2024 Generated for Mik olmos/Karen/Aideeitting on: 10/29/2024 11:18 PM EDT History and Physical Notes * HPI (History of Present Illness) Category Sub-Category Detail Notes Category Not es gen [place] is here with her brother. Overall she feels much better. She did not have any side effects of fluoxetine. Thinks that she is sleeping a little bit better. Her brother reports that they had a family reunion and this helped her reconnect with some family members she had not seen in a while. Blood pressure has been well-controlled, she is eating little better. Examination Category Sub-Category Detail Notes Category Not es General Examination Heart: Regular Rate and Rhythm, no murmur, rubs or gallops Using walker, wearing AFO brace on her right leg. Lungs: LCTAB, No wheezes, c rackles or rhonchi, Good air movement, Chest: normal shape and exp ansion General Pleasant and Coopera tive, NAD on RA,
--- OUTSIDE RECORDS SUMMARY | 2024-10-18 11:00 | XMS_ITS ---
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 Name Role Phone Yonny Scott Primary Care Provider Reanna Perdomo [phone] Allergies Allergen (clinical drug ingredient) Drug/Non Drug Allergy documented on EMR Reaction Allergy Type Onset Date Status Penicillin Unknown Drug Allergy Active REASON FOR VISIT High blood pressure Medications Medication SIG (Take, Route, Frequency, Duration) Notes Start Date End Date Status Lisinopril 20 MG 1 tablet Orally Once a day; Duration: 30 days Active Aspirin 81 MG 1 tablet Orally Once a day Active Levothyroxine Sodium 75 MCG 1 tablet in the morning on an empty stomach Orally Once a day; Duration: 30 days 09/26/2024 Active Folic Acid 800 MCG 1 tablet Orally Once a day; Duration: 30 day(s) 09/26/2024 Active FLUoxetine HCl 20 mg TAKE 1 CAPSULE BY M OUTH ONCE A DAY; Duration: 30 Active Mirtazapine 15 MG 1 tablet at bedtime Orally Once a day; Duration: 90 days 07/11/2024 Active Clopidogrel Bisulfate 75 MG 1 tablet Ora lly Once a day; Duration: 90 days 08/31/2024 Active Pantoprazole Sodium 20 MG 1 tablet 1/2 t o 1 hour before morning meal Orally Once a day; Duration: 90 days 08/31/2024 Active oxyBUTYnin Chloride ER 5 MG 1 tablet Ora lly Once a day; Duration: 90 days 08/31/2024 Active QUEtiapine Fumarate 100 MG 1 tablet at b edtime Orally Once a day 08/22/2024 Active Symbicort 160-4.5 MCG/ACT two puffs Inha lation twice a day; Duration: 30 days 2024 Active amLODIPine Besylate 5 mg one tab orally daily; Duration: 90 days Active Pramipexole Dihydrochloride 1 MG 1 tablet Orally three times a day prn; Duration: 90 days Active Atorvastatin Calcium 80 MG 1 tablet Oral ly Once a day; Duration: 90 days Active Vital Signs Temperature 97.6 degrees Fahrenheit 10/19/19 25 Heart Rate 88 /min 10/18/2024 Blood pressure systolic 140 mm Hg 10/19/19 25 Blood pressure diastolic 90 mm Hg 025 Height 63.5 in 10/18/2024 Weight 131 lbs 10/18/2024 BMI 22.84 kg/m2 10/18/2024 Encounters Encounter Location Date Provider Diagnosis [address] [address] 10/18/2024 Yonny Scott Essential hypertensi on I10 ; Acquired hypothyroidism E03.9 and Hemiparesis affecting right side as late effect of cerebrovascular accident I69.351 Assessments Encounter Date Diagnosis (ICD Code) Assessment Notes Treatment Notes Treatment Clinical Notes Section Notes 10/18/2024 Essential hypertension (ICD-10 - I10) Pt currently on a low dose of lisinopril qd increase lisinopril dosing to 20 mg Rx sent to pharmacy today pt advised to bring in home blood pressure cuff to next visit Pt and family members advised to bring medications to next visit 10/18/2024 Acquired hypothyroidism (ICD-10 - E03.9) Recently started levothyroxine therapy. Doing well, clinically euthyroid, no change in plans, possibly contributing to elevated blood pressure over baseline 10/18/2024 Hemiparesis affecting right side as late effect of cerebrovascular accident (ICD-10 - I69.351) Overall doing well, using walker. No falls. Continue home observation from family members Plan Of Treatment Medication Medication Name Sig Start Date Stop Date Notes Lisinopril 20 MG 1 tablet Orally Once a day; Duration: 30 days Treatment Notes Assessment Notes Essential hypertension Pt currently on a low dose of lisinopril qd increase lisinopril dosing to 20 mg Rx sent to pharmacy today pt advised to bring in home blood pressure cuff to next visit Pt and family members advised to bring medications to next visit Acquired hypothyroidism Recently started levothyroxine therapy. Doing well, clinically euthyroid, no change in plans, possibly contributing to elevated blood pressure over baseline Hemiparesis affecting right side as late effect of cerebrovascular accident Overall doing well, using walker. No falls. Continue home observation from family members Next Appt Details Follow Up: prn, Reason: Provider Name:Yonny Scott, 11/16/2024 09:30:00 AM, [address] [facility] [address], [address], [place], [address], Progress Notes * [place] JORDAN RaeDOB:[birth year] (64 yo F)Acc No.[id number]:10/18/2024 Progress Notes Patient: [place] CHISHOLM Provider: Day Scott MD :1960 A ge:64 Y S ex:Female Date:10/18/2024 Address:[address] [place] [address] [address] [id number] Subjective: * Chief Complaints: * 1 . High blood pressure. * HPI: g en: [place] presents today for her blood pressure. She has been taking her blood pressure at home which usually runs around 160-170/60-70. Her blood pressure read 190 this morning. She usually takes her medications in the morning, and does a blood pressure read shortly after that. Her mid day readings are closer to 160s. Denies chest pain, shortness of breath, vision changes, or headaches. * Medical History: H ypothyroidism, Fibromyalgia, HTN, Insomnia, Degenerative Disc Disease, Restless Leg Syndrome, Possible seizure, Alcoholism - recovering, Chronic pain, myofascial and degenerative joint disease, Stroke 03/2020, Stroke 11/2022. * Medications: T aking Aspirin 81 MG [...] bedtime Orally Once a day , Taking Levothyroxine Sodium 75 MCG Tablet 1 tablet in the morning on an empty stomach Orally Once a day , Taking Folic Acid 800 MCG Tablet 1 tablet Orally Once a day , Taking FLUoxetine HCl 20 mg Capsule TAKE 1 CAPSULE BY MOUTH ONCE A DAY , Medication List reviewed and reconciled with the patient * Allergies: P enicillin. Objective: * Vitals: N urse: sw, Pain: 0, Temp: 97.6, RR: 16, HR: 88, BP: 140/90, Ht: 63.5, Wt: 131, BMI:22.84. * Examination: G eneral Examination: General P leasant and Cooperative, NAD on RA,. Heart: R egular Rate and Rhythm, no murmur, rubs or gallops. Lungs: L CTAB, No wheezes, crackles or rhonchi, Good air movement,. Assessment: * Assessment: 1. E ssential hypertension - I10 (Primary) 2 . A cquired hypothyroidism - E03.9 3 . H emiparesis affecting right side as late effect of cerebrovascular accident - I69.351 Plan: * Treatment: 2. A cquired hypothyroidism Notes: Recently started levothyroxine therapy. Doing well, clinically euthyroid, no change in plans, possibly contributing to elevated blood pressure over baseline 3. H emiparesis affecting right side as late effect of cerebrovascular accident Notes: Overall doing well, using walker. No falls. Continue home observation from family members? * Follow Up: p rn * * Sign off status: Completed true * Provider: Day Scott MD Date: 0 10/18/2024 Generated for Mik olmos/Karen/Aideeitting on: 0 10/29/2024 11:19 PM EDT History and Physical Notes * HPI (History of Present Illness) Category Sub-Category Detail Notes Category Not es gen Lovelace presents today for her blood pressure. She has been taking her blood pressure at home which usually runs around 160-170/60-70. Her blood pressure read 190 this morning. She usually takes her medications in the morning, and does a blood pressure read shortly after that. Her mid day readings are closer to 160s. Denies chest pain, shortness of breath, vision changes, or headaches. Examination Category Sub-Category Detail Notes Category Not es General Examination Heart: Regular Rate and Rhythm, no murmur, rubs or gallops Lungs: LCTAB, No wheezes, c rackles or rhonchi, Good air movement, General Pleasant and Coopera tive, NAD on RA,
--- NOTE | 2024-10-29 23:10 | CT_ITS ---
PROCEDURE INFORMATION: Exam: CTA Head With Contrast, Arteriography Exam date and time: 10/29/2024 11:39 PM Age: 64 years old Clinical indication: Injury or trauma; Additional info: Fall on thinners TECHNIQUE: Imaging protocol: Computed tomographic angiography of the head with contrast. Exam focused on the arteries. 3D rendering (Not supervised by radiologist): MIP and/or 3D reconstructed images were created by the technologist. Radiation optimization: All CT scans at this facility use at least one of these dose optimization techniques: automated exposure control; mA and/or kV adjustment per patient size (includes targeted exams where dose is matched to clinical indication); or iterative reconstruction. Contrast material: ISOUVE 370; Contrast volume: 80 ml; Contrast route: INTRAVENOUS (IV); COMPARISON: CT ANGIO HEAD 07/13/2024 6:43 AM FINDINGS: ANTERIOR CIRCULATION: Right internal carotid artery: Intracranial segment is patent with no significant stenosis. No aneurysm. Right middle cerebral artery: Moderate to severe stenosis of a right MCA branch segment example images 509-512 series 7. Right anterior cerebral artery: No occlusion or significant stenosis. No aneurysm. Left internal carotid artery: Intracranial segment is patent with no significant stenosis. No aneurysm. Left middle cerebral artery: Mild stenosis of the proximal left M1 segment. Left anterior cerebral artery: Hypoplastic left A1 segment, likely developmental. POSTERIOR CIRCULATION: Right vertebral artery: No occlusion or significant stenosis. No aneurysm. Left vertebral artery: No occlusion or significant stenosis. No aneurysm. Basilar artery: No occlusion or significant stenosis. No aneurysm. Right posterior cerebral artery: Mild to moderate stenosis of the right P1 segment and proximal right GROUP PRODUCT MANAGER example image 452 series 7. Left posterior cerebral artery: Moderate to severe stenosis of the left GROUP PRODUCT MANAGER example image 461 series 7. Brain: Left occipital encephalomalacia. Cerebral ventricles: No ventriculomegaly. Bones/joints: Unremarkable. No acute fracture. Soft tissues: Unremarkable. IMPRESSION: 1. No acute intracranial arterial abnormality. 2. Moderate to severe stenosis of the left GROUP PRODUCT MANAGER example image 461 series 7. This could be related to prior infarction. 3. Moderate to severe stenosis of a right MCA branch segment example images 509-512 series 7.
--- NOTE | 2024-10-29 23:10 | CT_ITS ---
PROCEDURE INFORMATION: Exam: CTA Neck With Contrast Exam date and time: 10/29/2024 11:39 PM Age: 64 years old Clinical indication: Injury or trauma; Additional info: Fall on thinners TECHNIQUE: Imaging protocol: Computed tomographic angiography of the neck with contrast. Exam focused on the cervical segments of the vasculature. 3D rendering (Not supervised by radiologist): MIP and/or 3D reconstructed images were created by the technologist. Radiation optimization: All CT scans at this facility use at least one of these dose optimization techniques: automated exposure control; mA and/or kV adjustment per patient size (includes targeted exams where dose is matched to clinical indication); or iterative reconstruction. Contrast material: ISOUVE 370; Contrast volume: 80 ml; Contrast route: INTRAVENOUS (IV); COMPARISON: CT ANGIO NECK 07/13/2024 6:43 AM FINDINGS: Right common carotid artery: Advanced mixed atherosclerotic disease of the right carotid bifurcation producing a 55% stenosis of the right internal carotid artery per NASCET criteria. Right internal carotid artery: See Right common carotid artery finding. Right external carotid artery: No occlusion or stenosis of the origin. Left common carotid artery: Long segment of mild stenosis of the left common carotid artery. Left internal carotid artery: Advanced atherosclerotic disease of the left carotid bulb. There is a left internal carotid arterial stent that is patent. Left external carotid artery: Near occlusion of the proximal left external carotid artery. 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 Left vertebral artery: Mild to moderate stenosis of the origin of the left vertebral artery. Left subclavian artery: There is a patent left subclavian arterial stent. Soft tissues: Normal. No significant soft tissue swelling. Bones/joints: No acute fractures. IMPRESSION: 1. No acute carotid or vertebral arterial injury. 2. Advanced mixed atherosclerotic disease of the right carotid bifurcation producing 55% stenosis of the right internal carotid artery per NASCET criteria. 3. 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 This is chronic and unchanged. REFERENCES: NASCET CRITERIA. The degree of stenosis in the cervical segment of the internal carotid artery is based on NASCET criteria. Normal is no stenosis. Mild is less than 50% stenosis. Moderate is 50-69% stenosis. Severe is 70% to 99% stenosis. Total occlusion is no detectable patent lumen.
--- NOTE | 2024-10-29 23:10 | CT_ITS ---
PROCEDURE INFORMATION: Exam: CT Lumbar Spine Without Contrast Exam date and time: 10/29/2024 11:34 PM Age: 64 years old Clinical indication: Injury or trauma; Additional info: Fall on thinners TECHNIQUE: Imaging protocol: Computed tomography of the lumbar spine without contrast. Radiation optimization: All CT scans at this facility use at least one of these dose optimization techniques: automated exposure control; mA and/or kV adjustment per patient size (includes targeted exams where dose is matched to clinical indication); or iterative reconstruction. COMPARISON: MR LUMBAR SPINE WO CON 10/21/2018 12:04 PM FINDINGS: Bones/joints: No acute fracture. Normal alignment. No significant disc bulge or herniation. No severe spinal canal stenosis. No significant neural foraminal narrowing. Gallbladder and biliary ducts: Gallbladder is absent. Mild post cholecystectomy ectasia. Vasculature: Bilateral renal arterial stents. Soft tissues: Unremarkable. Other findings: Please see separate report for abdomen/pelvis. IMPRESSION: No acute fracture or malalignment of the lumbar spine.
--- NOTE | 2024-10-29 23:10 | CT_ITS ---
PROCEDURE INFORMATION: Exam: CT Thoracic Spine Without Contrast Exam date and time: 10/29/2024 11:32 PM Age: 64 years old Clinical indication: Injury or trauma; Additional info: Fall on thinners TECHNIQUE: Imaging protocol: Computed tomography of the thoracic spine without contrast. Radiation optimization: All CT scans at this facility use at least one of these dose optimization techniques: automated exposure control; mA and/or kV adjustment per patient size (includes targeted exams where dose is matched to clinical indication); or iterative reconstruction. COMPARISON: CR XR THORACIC SPINE 3V 11/17/2022 10:36 AM FINDINGS: Bones/joints: No acute fracture. Normal alignment. No significant disc bulge or herniation. No severe spinal canal stenosis. No significant neural foraminal narrowing. Soft tissues: Unremarkable. Other findings: Please see separate report for CT chest. IMPRESSION: No acute fracture or malalignment of the thoracic spine.
--- NOTE | 2024-10-29 23:10 | CT_ITS ---
PROCEDURE INFORMATION: Exam: CTA Chest With Contrast Exam date and time: 10/29/2024 11:43 PM Age: 64 years old Clinical indication: Injury or trauma; Additional info: Fall on thinners TECHNIQUE: Imaging protocol: Computed tomographic angiography of the chest with contrast. Exam focused on the arteries. 3D rendering (Not supervised by radiologist): MIP and/or 3D reconstructed images were created by the technologist. Radiation optimization: All CT scans at this facility use at least one of these dose optimization techniques: automated exposure control; mA and/or kV adjustment per patient size (includes targeted exams where dose is matched to clinical indication); or iterative reconstruction. Contrast material: ISOUVE 370; Contrast volume: 80 ml; Contrast route: INTRAVENOUS (IV); COMPARISON: CT ANGIO CHEST 10/20/2022 12:44 PM FINDINGS: Pulmonary arteries: Normal. No pulmonary emboli. Great vessels off aortic arch: Left subclavian arterial stent. Aorta: The aorta demonstrates moderate atherosclerotic disease. Trachea: Portions of the left lower lobe are collapsed and there are secretions in left lower lobe airways. Lungs: Mild scarring and atelectasis in the lower lungs. Pleural spaces: Unremarkable. No pneumothorax. No pleural effusion. Heart: Cardiomegaly. Lymph nodes: Unremarkable. No enlarged lymph nodes. Bones/joints: Pectus deformity. Old right 12th rib fracture. Soft tissues: Unremarkable. Other findings: Please see separate report for abdomen/pelvis. IMPRESSION: 1. No acute intrathoracic organ injury. 2. Portions of the left lower lobe are collapsed and there are secretions in left lower lobe airways. Please exclude aspiration and infection clinically.
--- NOTE | 2024-10-29 23:10 | CT_ITS ---
PROCEDURE INFORMATION: Exam: CT Head Without Contrast Exam date and time: 10/29/2024 11:23 PM Age: 64 years old Clinical indication: Injury or trauma; Additional info: Fall on thinners TECHNIQUE: Imaging protocol: Computed tomography of the head without contrast. Radiation optimization: All CT scans at this facility use at least one of these dose optimization techniques: automated exposure control; mA and/or kV adjustment per patient size (includes targeted exams where dose is matched to clinical indication); or iterative reconstruction. COMPARISON: CT ANGIO HEAD 07/13/2024 6:43 AM FINDINGS: Brain: Left occipital encephalomalacia. Chronic bilateral basal ganglia lacunar infarctions. Moderate chronic brain volume loss and chronic small vessel ischemic changes. Cerebral ventricles: There is a 1.5 cm hematoma in the ventricles along the septum pellucidum image 38 series 3. Paranasal sinuses: Blood in the paranasal sinuses. Please see separate report for maxillofacial CT for details of sinus and orbital injuries. Mastoid air cells: Small right mastoid effusion. Bones: Unremarkable. No acute fracture. Soft tissues: Right periorbital hematoma. IMPRESSION: 1. There is a 1.5 cm hematoma in the ventricles along the septum pellucidum image 38 series 3. 2. Please see separate report for maxillofacial CT for details of sinus and orbital injuries.
--- NOTE | 2024-10-29 23:10 | CT_ITS ---
PROCEDURE INFORMATION: Exam: CTA Abdomen and Pelvis With Contrast Exam date and time: 10/29/2024 11:43 PM Age: 64 years old Clinical indication: Injury or trauma; Additional info: Fall on thinners TECHNIQUE: Imaging protocol: Computed tomographic angiography of the abdomen and pelvis with contrast. Exam focused on the arteries. 3D rendering (Not supervised by radiologist): MIP and/or 3D reconstructed images were created by the technologist. Radiation optimization: All CT scans at this facility use at least one of these dose optimization techniques: automated exposure control; mA and/or kV adjustment per patient size (includes targeted exams where dose is matched to clinical indication); or iterative reconstruction. Contrast material: ISOUVE 370; Contrast volume: 80 ml; Contrast route: INTRAVENOUS (IV); COMPARISON: CT ANGIO ABDOMEN 11/18/2022 1:08 PM FINDINGS: Aorta: No aortic aneurysm. No aortic dissection. Celiac trunk and mesenteric arteries: Moderate stenosis of the origin of the celiac trunk. Renal arteries: Bilateral renal arterial stents. Right iliac arteries: No occlusion or significant stenosis. Left iliac arteries: No occlusion or significant stenosis. Other arteries: The arteries demonstrate severe atherosclerotic disease. Liver: No mass. Gallbladder and biliary ducts: Mild post cholecystectomy ectasia. Gallbladder is absent. Pancreas: Unremarkable. No mass. No ductal dilation. Spleen: Unremarkable. No splenomegaly. Adrenal glands: Unremarkable. No mass. Kidneys and ureters: Unremarkable. No solid mass. No hydronephrosis. Stomach and bowel: Unremarkable. No obstruction. No mucosal thickening. Appendix: Unremarkable appendix. Intraperitoneal space: Unremarkable. No free air. No significant fluid collection. Lymph nodes: Unremarkable. No enlarged lymph nodes. Urinary bladder: Unremarkable. No mass. Reproductive: Unremarkable as visualized. Bones/joints: Status post total right hip arthroplasty. The hardware appears intact. Soft tissues: Tiny fat containing umbilical hernia. Other findings: Please see separate report for CT chest. IMPRESSION: No acute intra-abdominal or intrapelvic organ injury.
--- NOTE | 2024-10-29 23:10 | CT_ITS ---
PROCEDURE INFORMATION: Exam: CT Cervical Spine Without Contrast Exam date and time: 10/29/2024 11:28 PM Age: 64 years old Clinical indication: Injury or trauma; Additional info: Fall on thinners TECHNIQUE: Imaging protocol: Computed tomography of the cervical spine without contrast. Radiation optimization: All CT scans at this facility use at least one of these dose optimization techniques: automated exposure control; mA and/or kV adjustment per patient size (includes targeted exams where dose is matched to clinical indication); or iterative reconstruction. COMPARISON: CR XR CERVICAL SPINE W FLEX/EXT 11/17/2022 10:36 AM FINDINGS: Bones: Straightening of the curvature of the cervical spine is likely positional. Mild to moderate left neural foraminal stenoses at C4-C7. Moderate right neural foraminal stenoses from C3-C6. Multilevel degenerative changes of the cervical spine producing multiple levels of mild and moderate spinal canal stenosis. Lungs: Lung apices are normal. Vasculature: Left carotid stent. Left subclavian arterial stent. Soft tissues: Unremarkable. IMPRESSION: No acute fracture or malalignment of the cervical spine.
--- NOTE | 2024-10-29 23:12 | CT_ITS ---
PROCEDURE INFORMATION: Exam: CT Maxillofacial Without Contrast Exam date and time: 10/29/2024 11:25 PM Age: 64 years old Clinical indication: Injury or trauma; Additional info: Fall on thinners TECHNIQUE: Imaging protocol: Computed tomography of the face without contrast. Radiation optimization: All CT scans at this facility use at least one of these dose optimization techniques: automated exposure control; mA and/or kV adjustment per patient size (includes targeted exams where dose is matched to clinical indication); or iterative reconstruction. COMPARISON: CT HEAD/BRAIN WO CON 10/29/2024 11:23 PM FINDINGS: Paranasal sinuses: The right maxillary sinus anterior and posterolateral benites are fractured. The anterior maxillary sinus wall fracture involves the lacrimal duct. Acute, nondisplaced right maxillary frontal process fracture with possible propagation into the medial wall of the right maxillary sinus. Orbital cavities: Acute right orbital medial wall fracture. Moderate extraconal gas and hematoma in the right orbit producing moderate globe proptosis. Mastoid air cells: Small right mastoid effusion. Bones: Right zygomatic process fracture. Acute right orbital lateral wall and floor fractures. Chronic appearing nasal bone deformity. Soft tissues: Hematoma and soft tissue gas in the right-side of the face and right periorbital region. IMPRESSION: 1. Right ZMC/tripod fracture. The anterior maxillary sinus wall fracture involves the lacrimal duct. 2. Chronic appearing nasal bone deformity. Please correlate with point tenderness to exclude an acute component. 3. Moderate extraconal gas and hematoma in the right orbit producing moderate globe proptosis.
--- OUTSIDE RECORDS SUMMARY | 2024-10-29 23:18 | XMS_ITS | Clinical Summary ---
Author Organization [facility] Address [address] [place] [address] Phone Care Team Providers Care Location Director Name Role Phone Jovanni Kelly MD [ ] Conditions or Problems Problem Name Problem Code Onset Date Status Entry Date Provider Comment Standard Description Annotate Pneumonia, organism unspecified 091171343 (SNOMED CT) Active 05/09 Katherine W Pneumonia ALPHA STREP B95.4 (ICD-10-CM) Active 05/09 Katherine W Other streptococcus as the cause of diseases classified elsewhere PARENCHYMAL LUNG ABSCESS 513.0 (ICD-9-CM) Active 05/09 Katherine W Abscess of lung Pneumococcus infection B95.3 (ICD-10-CM) Active 05/09 Katherine W Streptococcus pneumoniae as the cause of diseases classified elsewhere LT Empyema without mention of fistula J86.9 (ICD-10-CM) Active 05/09 Katherine W Pyothorax without fistula Fever 873437006 (SNOMED CT) Active 05/09 Katherine W Fever Leukocytosis 411950466 (SNOMED CT) Active 05/09 Katherine W Leukocytosis PLEURITIC CHEST PAIN 8492177 (SNOMED CT) Active 05/09 Katherine W Pleuritic pain THRUSH 84879737 (SNOMED CT) Active 05/09 Katherine W Candidiasis ETOH F10.20 (ICD-10-CM) Active 05/09 Katherine W Alcohol dependence, uncomplicated TOBACCO ABUSE 38863768 (SNOMED CT) Active 05/09 Katherine Neal Tobacco dependence syndrome Medications Medication Instructions Start Date Stop Date Generic Name NDC Provider CEFTRIAXONE SODIUM 2 GM SOLR 2gm IV daily [facility] x6197 [facility] 05/31 CEFTRIAXONE SODIUM [id number] Eva Horvath RN CYCLOBENZAPRINE HCL TABLET CYCLOBENZAPRINE HCL TABS [id number] Smita Helena LOPRESSOR TABS METOPROLOL TARTRATE TABS 11104233864 Smita Z LEVOTHYROXINE SODIUM TABS 05/31 LEVOTHYROXINE SODIUM TABS 55938144426 Smita Malik DIFLUCAN 150 MG TABS 1 po daily 05/31 FLUCONAZOLE [id number] Smita Malik HYDROCODONE-ACETAM INOPHEN TABS HYDROCODONE-ACETA MINOPHEN TABS 21632906502 Jovanni Kelly MD DIAZEPAM TABS DIAZEPAM TABS [id number] Jovanni Kelly MD TEMAZEPAM CAPS TEMAZEPAM CAPS 44026752302 Jovanni Kelly MD METOPROLOL TARTRATE TABS 05/19 METOPROLOL TARTRATE TABS 84712733091 Jovanni Kelly MD SIMVASTATIN TABLET 05/19 SIMVASTATIN TABS 49942187531 Jovanni Kelly MD DIFLUCAN 150 MG TABS 1 po daily 0 08/31 FLUCONAZOLE [id number] Jovanni Kelly MD CEFTRIAXONE SODIUM 2 GM SOLR 2gm IV daily [facility] x6197 [facility] 05/31 CEFTRIAXONE SODIUM 17263431338 Jolie Pineda RN LEVOTHYROXINE SODIUM TABS 0 05/24 LEVOTHYROXINE SODIUM TABS [id number] Jovanni Kelly MD SIMVASTATIN TABLET 0 07/05 SIMVASTATIN TABS [id number] Jovanni Kelly MD METOPROLOL TARTRATE TABS 0 05/24 METOPROLOL TARTRATE TABS 10812558214 Jovanni Kelly MD LISINOPRIL TABS LISINOPRIL TABS 80558827577 Jovanni Kelly MD CEFTRIAXONE SODIUM 2 GM SOLR 2gm IV daily [facility] x6197 [facility] FOR PICC CARE x6564 05/10 CEFTRIAXONE SODIUM [id number] Jolie Pineda RN Medications Administered No information available. Allergies, Adverse Reactions, Alerts Allergy Name Reaction Description Start Date Severity Statu s Provider PENICILLIN V POTASSIUM reation unknown; from childhood Moderate Active Jovanni aden MD Results Date Name Value Unit Range Flag Description Lab Report: C-Reactive Prote in CRPCARDRISK 119.100 mg/L 0.000-10.0 H C reac tive protein [Mass/volume] in Serum or Plasma Lab Report: ESR (Sed Rate) ESR 69 mm/h 0-30 H Erythrocyte sedimentation rate by Westergren method Clinical Lists Update: Prelo ad CIGARET SMKG yes Tobacco smoking status Office Visit: 7 SMOK STATUS former smoker Tobacco smoking status Chart Maintenance: updated H H labs 05/16/13 LYMPHS % 6.2 % Lymphocytes/ 100 leukocytes in Blood by Automated count PMN % 93.0 % Neutrophils/1 00 leukocytes in Blood by Automated count Lab Report: CBC w Auto Diff IMM GRANU % 0.4 % 0.0-0.6 N Immature granulocytes/100 leukocytes in Blood BASOPHIL % 0.5 % 0.0-1.0 N Basophils/ 100 leukocytes in Blood by Manual count % EOS AUTO 1.0 % 0.0-3.0 N Eosinophil s/100 leukocytes in Blood by Automated count MONOCYTE BF 8.0 % 0.0-12.0 N monocyte s as percent of body fluid leukocytes LYMPHOCY BF 37.4 % 24.0-44.0 N lymphoc ytes as percent of body fluid leukocytes NEUTROP BF 52.7 % 41.0-71.0 N Neutroph ils/100 leukocytes in Body fluid [id number] 0.0 GE use only - for [employer] import when terms are not otherwise specified BASOABSOLMAN 0.05 K/MCL {Cells}/uL 0.00-0.20 N basophils, absolute, manual EOS ABSLT 0.09 10*3/uL 0.10-0.30 L Eosinophi ls [#/volume] in Blood MONOCYTABMAN 0.74 K/MCL {Cells}/uL 0.00-1.00 N monocytes, absolute, manual LYMPHSABSMAN 3.44 K/MCL {Cells}/uL 0.60-4.80 N lymphocytes, absolute, manual ABS NEUTROPH 4.84 10*3/uL 1.50-8.30 N Neutro phils [#/volume] in Blood PLATELETS 292 10*3/mm3 150-450 N Platelets [#/volume] in Blood by Automated count RDW_ 14.5 11.3-14.5 N RDW, no uni ts MCHC 31.0 G/DL 32.0-36.0 L MCHC [Mass/ volume] by Automated count MCH 27.8 pg 27.0-31.0 N MCH [Entiti c mass] by Automated count MCV 89.8 fL 80.0-99.0 N MCV [Entiti c volume] by Automated count HCT 36.8 % 34.5-44.0 N Hematocrit [Volume Fraction] of Blood by Automated count HGB 11.4 g/dL 11.5-15.5 L Hemoglobin [Mass/volume] in Blood RBC 4.10 M/MCL 10*6/mm3 3.89-5.14 N Erythro cytes [#/volume] in Blood by Automated count WBC 9.20 10*3/mm3 3.50-10.80 N Leukocyte s [#/volume] in Blood by Automated count Lab Report: Basic Metabolic Panel ANIONGAP 4 mmol/L 3-11 N anion gap, s eduardo GFR EST 104 mL/min estimated glomerular filtration rate CALCIUM 9.0 mg/dL 8.7-10.4 N Calcium [Moles/volume] in Serum or Plasma CO2 29 mmol/L 20-31 N Carbon dioxid e, total [Moles/volume] in Venous blood CHLORIDE 103 mmol/L 99-109 N Chloride [Moles/volume] in Serum or Plasma POTASSIUM 5.3 mmol/L 3.5-5.5 N Potassium [Moles/volume] in Serum or Plasma SODIUM 136 mmol/L 132-146 N Sodium [Moles/volume] in Serum or Plasma CREATININE 0.6 mg/dL 0.6-1.3 N Creatinine [Mass/volume] in Serum or Plasma BUN 16 mg/dL 9-23 N Urea nitrogen [Mass/volume] in Serum or Plasma GLUCOSE SER 75 mg/dL 70-100 N Glucose [Mass/volume] in Serum or Plasma Office Visit: 7 MEDS REVIEW Done Documenta tion of current medications (procedure) Plan of Care Type Date Detail Pending order PICC Removal Pending order Discontinue IV a ntibiotics Pending order Weekly PICC Line Care Pending order Weekly Labs (Con tinue) Pending order Continue IV anti biotics Pending order Ceftriaxone Pending order Continue oral an tibiotics Pending order Weekly PICC Line Care Pending order Weekly Labs (Con tinue) Pending order Continue IV anti biotics Pending order Ceftriaxone Procedures Code Procedure Name Date Entry Date CPT-wpc Weekly PICC Line Care 05/19 CPT-cwl Weekly Labs (Continue) 05/19 CPT-ca Continue IV antibiotics 2013 CPT-J0696 Ceftriaxone CPT-Cooral Continue oral antibiotics 20 06/05/26 CPT-wpc Weekly PICC Line Care 05/10 CPT-cwl Weekly Labs (Continue) 05/10 CPT-ca Continue IV antibiotics 2013 CPT-J0696 Ceftriaxone Vital Signs Date Name Value Unit Description BMI (Body Mass Index) 22.90 kg/m2 Bod y Mass Index (Ratio) Body Temperature 98.5 [degF] temperat ure E&M BP Diastolic 92 mm[Hg] blood pressu re, diastolic BP Systolic 159 mm[Hg] blood pressur e, systolic Heart Rate 104 /min pulse rate Height 63 [in_us] height E&M Respiratory Rate 14 /min respirat ory rate E&M Weight Measured 128.8 [lb_av] weight E& M Weight Measured 128.8 [lb_av] weight E& M Immunizations No information available. Advance Directives No information available.
--- OUTSIDE RECORDS SUMMARY | 2024-10-29 23:18 | XMS_ITS | Encounter Summary ---
Author Organization [facility] Address [address] [place] [address] Care Team Providers Care Book Solicitor Name Role Phone Yonny Scott MD Primary Care Provider + [phone] Encounter Details Date Type Department Care Team (Latest Contact Info) Description 09/01/2024 Travel Social History Tobacco Use Types Packs/Day Years Used Date Smoking Tobacco: Former Cigarettes 0.3 50 Passive Smoke Exposure: Past Smokeless Tobacco: Never Alcohol Use Standard Drinks/Week Comments Not Currently 19 (1 standard drink = 0.6 oz pu re alcohol) [facility] Utilities Answer Date Recorded In the past 12 months has e [employer] gas, oil, or water [employer] threatened to shut off services in your [...] GED or equivalent No 07/20/2024 Preferred Language [place]orese 07/20/2024 PHQ-2 Answer Date Recorded Patient Health Questionnaire-2 Score 0 09/01/2024 Comments No Sex and Gender Information Value Date Recorded Sex Assigned at Not on file Legal Sex Female 10:09 AM EDT Gender Identity Not on file Sexual Orientation Not on file documented as of this encounter Functional Status documented as of this encounter Plan of Treatment Upcoming Encounters Date Type Department Care Team (Late st Contact Info) Description 12/05/2024 11:30 AM EDT Office Visit [facility] [address] [facility] [address] [place] [address] Julissa Kenney, SCENE PAINTER [address] [facility] [address] [address] documented as of this encounter Visit Diagnoses Not on filedocumented in this encounter Care Teams Book Solicitor Relationship Specialty Start Date End Date Yonny Scott MD [address] [facility] [address] [place] [address] PCP - General Adolescent Medicine 07/19/24 documented as of this encounter
[2024-10-29 23:19] VITALS: BP 171/76; PULSE 57; RESP 18; TEMP 36.6; O2SAT 98
--- OUTSIDE RECORDS SUMMARY | 2024-10-29 23:19 | XMS_ITS | Clinical Summary ---
Author Organization [facility] Address [address] [place] [address] Care Team Providers Care Manpower Development Specialist Manager Name Role Phone Reanna Perdomo Naila MONIQUE Primary Care Provider [phone] Source Comments This information has been disclosed to you from confidential records protectedfrom disclosure by state law. You shall make no further disclosure of thisinformation without the specific, written, and informed release of theindividual to whom it pertains, or as otherwise permitted by law. A generalauthorization for the release of medical or other information is not sufficientfor the purposes of therelease of HIV test results or diagnoses. [id number] Allergies Active Allergy Reactions Criticality Noted Date Comments Other 06/26/2009 Less than 1 y.o. - she almost Penicillins 04/14/2006 Medications amitriptyline (ELAVIL) 100 MG tablet Take by mouth. Activ e cyclobenzaprine (FLEXERIL) 10 MG tabletIndication s:patient states she takes 3 10mg tablets daily Take by mouth. Indications: patient states she takes 3 10mg tablets daily Active diazePAM (VALIUM) 10 MG tabletIndication s:patient states she takes 2 10mg tablets daily Take by mouth. Indications: patient states she takes 2 10mg tablets daily Active furosemide (LASIX) 20 MG tablet TAKE 1 TABLET IN THE MORNING FOR LEG SWELLING 0 9 Active HYDROcodone-acet aminophen (NORCO) 10-325 mg per tablet hydrocodone 10 mg-acetaminophe n 325 mg tablet Active levothyroxine 25 mcg Cap Take by mouth. Activ e metoprolol succinate (TOPROL-XL) 100 MG 24 hr tablet Take by mouth. Active milnacipran (SAVELLA) 100 mg TabIndications:p atient states she takes 2 100mg tablets daily Take by mouth. Indications: patient states she takes 2 100mg tablets daily Active nabumetone (RELAFEN) 750 MG tabletIndication s:patient states she takes 2 750mg tablets daily Take by mouth. Indications: patient states she takes 2 750mg tablets daily Active rosuvastatin (CRESTOR) 20 MG tablet Take by mouth. Activ e amLODIPine (NORVASC) 5 MG tabletIndication s:Hypertension, unspecified type Take 1 tablet (5 mg total) by mouth daily. 90 tablet 1 9 Active lisinopril (PRINIVIL,ZESTRI L) 40 MG tabletIndication s:Essential hypertension Take 1 tablet (40 mg total) by mouth daily. 30 tablet 9 Active chlorthalidone (HYGROTEN) 25 MG tabletIndication s:Essential hypertension Take 1 tablet (25 mg total) by mouth daily. 90 tablet 1 9 Active Active Problems Problem Noted Date Diagnosed Date Claudication 09/03/2018 Essential hypertension 09/03/2018 PVD (peripheral vascular disease) 09/03/2018 Dyspnea on exertion 09/03/2018 Lower extremity edema 09/03/2018 LVH (left ventricular hypertrophy) 09/03/2018 Social History Tobacco Use Types Packs/Day Years Used Date Smoking Tobacco: Never Assessed PHQ-2 Answer Date Recorded PHQ-2 Score 2 12/06/2018 Comments Unknown Sex and Gender Information Value Date Recorded Sex Assigned at Not on file Legal Sex Female 1:05 PM EDT Gender Identity Not on file Sexual Orientation Not on file Last Filed Vital Signs Vital Sign Reading Time Taken Comments Blood Pressure 155/81 01/06/2019 11:28 AM EST Pulse 85 01/06/2019 11:28 AM EST Temperature - - Respiratory Rate - - Oxygen Saturation 98% 01/06/2019 11:28 AM EST Inhaled Oxygen Concentration 98% 01/06/2019 1 1:28 AM EST Weight 68.5 kg (151 lb) 01/06/2019 11:28 AM EST Height 160.7 cm (5' 3.25 ) 01/06/2019 11:[address] Body Mass Index 26.54 01/06/2019 11:28 AM EST Plan of Treatment Not on file Insurance [employer] PPO MEDICARE Care Teams Manpower Development Specialist Manager Relationship Specialty Start Date End Date Reanna Perdomo APN [address] [facility] [address] [place] [address] PCP - General Family Medicine 09/02/18
--- OUTSIDE RECORDS SUMMARY | 2024-10-29 23:19 | XMS_ITS | Patient Health Record ---
Author Organization [facility] Address [address] [place] [address] Care Team Providers Care Manager Finance Name Role Phone Yonny Scott Primary Care Provider Reanna Perdomo Unavailable [phone] Migration, Provider Unavailable Unavailable Allergies Allergen (clinical drug ingredient) Drug/Non Drug Allergy documented on EMR Reaction Allergy Type Onset Date Status Penicillin Unknown Drug Allergy Active Results Component Value Reference Range Notes EEG Reviewed date:09/26/2024 03:13:22 PM Interpretation: Performing Lab: Notes/Report: THYROID PANEL WITH TSH (7444 ) Reviewed date:09/26/2024 03:13:21 PM Interpretation: Performing Lab:[place] [facility] Utui1970 OradteLindsey Shell, [facility] [id number] Micheal Hilton Notes/Report: NON-FASTING; NON-FASTING; NON-FASTING; NON-FASTING; NON-FAST T3 UPTAKE 28 22-35 % T4 (THYROXINE), TOTAL 6.1 5.1-11.9 mcg/dL FREE T4 INDEX (T7) 1.7 1.4-3.8 TSH 19.85 0.40-4.50 mIU/L COMPREHENSIVE METABOLIC PANE L (39871) Reviewed date:09/26/2024 03:13:21 PM Interpretation: Performing Lab:[place] [facility] [id number] [facility] [facility] ObdbGO[address] Micheal Hilton Notes/Report: NON-FASTING; NON-FASTING; NON-FASTING; NON-FASTING; [...] Reviewed date:09/26/2024 03:13:21 PM Interpretation: Performing Lab:[place], [facility], [facility] InstituteZgpoSJ[address] Micheal Hilton Notes/Report: NON-FASTING; NON-FASTING; NON-FASTING; NON-FASTING; [...] MPV 10.1 7.5-12.5 fL ABSOLUTE NEUTROPHILS 5032 3639-3905 cells/uL ABSOLUTE LYMPHOCYTES 2559 850-3900 cells/uL ABSOLUTE MONOCYTES 621 200-950 cells/uL ABSOLUTE EOSINOPHILS 230 15-500 cells/uL ABSOLUTE BASOPHILS 60 0-200 cells/uL NEUTROPHILS 59.2 LYMPHOCYTES 30.1 MONOCYTES 7.3 EOSINOPHILS 2.7 BASOPHILS 0.7 VITAMIN B12/FOLATE, SERUM PA ADA (9154) Reviewed date:09/26/2024 03:13:21 PM Interpretation: Performing Lab:[place] [facility] [address], [place] CdrgVQ[address] Micheal Hilton Notes/Report: NON-FASTING; NON-FASTING; NON-FASTING; NON-FASTING; NON-FAST VITAMIN B12 516 462-9663 pg/mL FOLATE, SERUM 4.4 Reference Range Low: <3.4 Borderline: 3.4-5.4 Normal: >5.4 FERRITIN (457) Reviewed date:09/26/2024 03:13:22 PM Interpretation: Performing Lab:[place] [facility], [facility] InstituteOtowYE[address] Micheal Hilton Notes/Report: NON-FASTING; NON-FASTING; NON-FASTING; NON-FASTING; NON-FAST FERRITIN 41 16-288 ng/mL VITAMIN D,25-OH,TOTAL,IA (17 306) Reviewed date:09/26/2024 03:13:22 PM Interpretation: Performing Lab:[place] [facility] [address], [facility] InstitutePqcnAQ[address] Micheal Hilton Notes/Report: NON-FASTING; NON-FASTING; NON-FASTING; NON-FASTING; [...] D, (D2,D3), LC/MS/MS is recommended: order code [id number] (patients >2yrs). See Note 1 Note 1 For additional information, please refer to http://education.[employer]/faq/NFG150 (This link is being provided for informational/ educational purposes only.) Reason For Referral Reason Home Health- PT, OT and Nursing Diagnosis 1 Multilevel degenerat miguel disc disease (M53.9) Diagnosis 2 Idiopathic periphera l neuropathy (G60.9) Diagnosis 3 Occipital stroke (I6 3.9) Diagnosis 4 Malignant hypertensi on (I10) Diagnosis 5 Ataxia (R27.0) Referral Organization [facility] Referring Provider First Name Yonny Referring Provider Last Name Tyler Referring Provider Speciality Internal M edicine Referred Provider Specialty Home Health General Notes sent to caretenders, amedysis and VNA Referral Priority Routine Reason EEG and MRI brain w/ o - ataxia Referral Organization [facility] Referring Provider First Name Yonny Referring Provider Last Name Tyler Referring Provider Speciality Internal edicine Referred Organization [facility] Referred Address [address] [place] [address], [place], [place],[address], Referred Provider Specialty Diagnostic R adiology General Notes Gisele Yougn 2024 02:33:23 PM >sent to [facility] and [facility] Referral Priority Routine Medications Medication SIG (Take, Route, Frequency, Duration) Notes Start Date End Date Status Mirtazapine 15 MG 1 tablet at bedtime Orally Once a day; Duration: 90 days 07/11/2024 Active Clopidogrel Bisulfate 75 MG 1 tablet Ora lly Once a day; Duration: 90 days 08/31/2024 Active Pantoprazole Sodium 20 MG 1 tablet 1/2 t o 1 hour before morning meal Orally Once a day; Duration: 90 days 08/31/2024 Active Lisinopril 20 MG 1 tablet Orally Once a day; Duration: 30 days Active oxyBUTYnin Chloride ER 5 MG 1 tablet Ora lly Once a day; Duration: 90 days 08/31/2024 Active QUEtiapine Fumarate 100 MG 1 tablet at b edtime Orally Once a day 08/22/2024 Active Aspirin 81 MG 1 tablet Orally Once a day Active Levothyroxine Sodium 75 MCG 1 tablet in the morning on an empty stomach Orally Once a day; Duration: 30 days 09/26/2024 Active Folic Acid 800 MCG 1 tablet Orally Once a day; Duration: 30 day(s) 09/26/2024 Active Symbicort 160-4.5 MCG/ACT two puffs Inha lation twice a day; Duration: 30 days 2024 Active FLUoxetine HCl 20 mg TAKE 1 CAPSULE BY M OUTH ONCE A DAY; Duration: 30 Active amLODIPine Besylate 5 mg one tab orally daily; Duration: 90 days Active Pramipexole Dihydrochloride 1 MG 1 tablet Orally three times a day prn; Duration: 90 days Active Atorvastatin Calcium 80 MG 1 tablet Oral ly Once a day; Duration: 90 days Active Immunizations Vaccine Route Administration Date Status Comme nts Flublok IM Intramuscular 11/02/2019 Administered Fluvirin--Influenza vaccine 3+ year IM Intramuscular 11/08/2012 Administered Fluvirin--Influenza vaccine 3+ year IM Intramuscular 01/11/2014 Administered FLUZONE 6MO - OLDER IM Intramuscular 01/10/2019 Administer ed Influenza (Fluzone)--Medicare only IM Intramuscular 01/01/2017 Administered Influenza (Fluzone)--Medicare only IM Intramuscular 10/08/2017 Administered Pneumovax 23 IM Intramuscular 01/10/2019 Administered Prevnar PCV-13 (Pneumococcal conjugate 13) IM Intramuscular 09/11/2015 Administered Prevnar PCV-20 (Pneumococcal conjugate 20) Unknown 12/09/2022 Administered SHINGRIX IM Intramuscular 09/21/2023 Administered Social History Tobacco Use: Social History Observation Description Date Details (start date - stop date) Former Smoker NA - NA Smoking: Question Answer Notes Are you a: former smoker How long has it been since you last smoked? 6-12 months Problems Problem Type SNOMED Code ICD Code Onset Dates Problem Status W/U Status Risk Notes Problem Anxiety disorder (990098417) Anxiety disorder, unspecified (F41.9) Active confirmed Problem Primary insomnia (2880814) Primary insomnia (F51.01) Active confirmed Problem Mucopurulent chronic bronchitis (95679609) Mucopurulent chronic bronchitis (J41.1) Active confirmed Problem Panlobular emphysema (7159001) Panlobular emphysema (J43.1) Active confirmed Problem Fibromyalgia (282924243) Fibromyalgia (M79.7) Active confirmed Problem Mixed incontinence (265372910) Mixed incontinence (N39.46) Active confirmed Problem Headache (17011628) Headache (R51) Active confirmed Problem Peripheral vascular disease (818491271) PVD (peripheral vascular disease) (I73.9) Active confirmed Problem Mixed anxiety and depressive disorder (940381892) Depression with anxiety (F41.8) Active confirmed Problem Paresthesia (91686654) Paresthesia (R20.2) Active confirmed Problem Tobacco use (580261492) Tobacco use disorder (Z72.0) Active confirmed Problem Hyperlipidaemia (68089711) Hyperlipidemia LDL goal <100 (E78.5) Active confirmed Problem Insomnia (459123683) Insomnia (G47.00) Active confirmed Problem Essential hypertension (79986744) Essential hypertension (I10) Active confirmed Problem Acute exacerbation of chronic obstructive airways disease (251108584) COPD exacerbation (J44.1) Active confirmed Problem Idiopathic peripheral neuropathy (72047932) Idiopathic peripheral neuropathy (G60.9) Active confirmed Problem Restless legs (56933677) RLS (restless legs syndrome) (G25.81) Active confirmed Problem Malaise (594747153) Malaise (R53.81) Active confirmed Problem Liver enzymes abnormal (689399883) Abnormal liver enzymes (R74.8) Active confirmed Problem Acquired hypothyroidism (721654405) Acquired hypothyroidism (E03.9) Active confirmed Problem New daily persistent headache (774656111526599) New daily persistent headache (G44.52) Active confirmed Problem Chronic insomnia (118694610) Chronic insomnia (F51.04) Active confirmed Problem Arthropathy (025377779) Arthropathy, multiple sites (M12.9) Active confirmed Problem Ataxia (67601155) Ataxia (R27.0) Active confirm ed Problem Mood disorder (72884881) Mood disorder (F39) Active confirmed Problem Delusional disorder (74057486) Delusional disorder (F22) Active confirmed Problem Degeneration of intervertebral disc (09859081) Multilevel degenerative disc disease (M53.9) Active confirmed Problem Fibromyalgia (138029499) Diffuse myofascial pain syndrome (M79.7) Active confirmed Problem Overactive urinary bladder (disorder) (394701557) OAB (overactive bladder) (N32.81) Active confirmed Problem Sequelae of cerebral infarction (282007551) CVA, old, disturbances of vision (I69.398) Active confirmed Problem Insomnia (333923515) Insomnia, unspecified type (G47.00) Active confirmed Problem Osteoarthritis (836861717) Osteoarthritis, unspecified osteoarthritis type, unspecified site (M19.90) Active confirmed Problem Localized, primary osteoarthritis of the pelvic region and thigh (578267987) Primary osteoarthritis of right hip (M16.11) Active confirmed Problem Hemiplegia of dominant side as late effect of cerebrovascular disease (778184819) Hemiparesis affecting right side as late effect of cerebrovascular accident (I69.351) Active confirmed Problem History of cerebrovascular accident without residual deficits (864904197) History of CVA (cerebrovascular accident) (Z86.73) Active confirmed Problem Transient altered mental status (338852599) Altered level of consciousness (R40.4) Active confirmed Problem Hypertensive emergency (496662175126192) Hypertensive emergency (I16.1) Active confirmed Problem Residual 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 accident (327270239) Other symptoms and signs involving cognitive functions following cerebral infarction (I69.318) Active confirmed Problem Renal artery stenosis (694475984) Renal artery stenosis (I70.1) Active confirmed Problem Inflammatory and toxic neuropathy (948414512) Peripheral polyneuropathy (G62.9) Active confirmed Problem Functional visual loss (200910826) Vision loss (H54.7) Active confirmed Problem Moderate major depression, single episode (84153088) Current moderate episode of major depressive disorder, unspecified whether recurrent (F32.1) Active confirmed Problem Cerebral infarction (377909189) Occipital stroke (I63.9) Active confirmed Problem Ataxia due to and following cerebrovascular accident (disorder) (442668391203463) Ataxia due to and not concurrent with cerebrovascular accident (CVA) (I69.393) Active confirmed Problem Dysphagia as a late effect of cerebrovascular accident (disorder) (563308578) CVA, old, dysphagia (I69.391) Active confirmed Problem Aphasia as late effect of cerebrovascular accident (325612477) 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) Active confirmed Vital Signs Heart Rate 88 /min 10/18/2024 Temperature 97.6 degrees Fahrenheit 10/18/2024 Blood pressure diastolic 90 mm Hg 10/18/2024 Height 63.5 in 10/18/2024 Blood pressure systolic 140 mm Hg 10/18/2024 Weight 131 lbs 10/18/2024 BMI 22.84 kg/m2 10/18/2024 Encounters Encounter Location Date Provider Diagnosis [facility] [address] [facility] [address] [place] [address] 05/28/2024 Provider Migration Essential hypertension I10 ; Diffuse myofascial pain syndrome M79.7 and Mood disorder F39 [facility] [address] [place] [address] 05/31/2024 Reanna Perdomo Chronic insomnia F51 .04 ; Essential hypertension I10 and History of CVA (cerebrovascular accident) Z86.73 [facility] [address] [place], [place] [address] 06/27/2024 Yonnykim Scott Malignant hypertensi on I10 ; Occipital stroke I63.9 ; Acquired hypothyroidism E03.9 and Hospital discharge follow-up Z09 [facility] [address] [place], [place] [address] 07/11/2024 Yonny Besadama Pain in right hip M25.551 ; Pain in left hip M25.552 ; Multilevel degenerative disc disease M53.9 ; History of CVA (cerebrovascular accident) Z86.73 ; Current moderate episode of major depressive disorder, unspecified whether recurrent F32.1 ; Vision loss H54.7 ; Essential hypertension I10 and Routine medical exam Z00.00 [facility] [address] [address] 07/19/2024 Yonnykim Scott History of CVA (cerebrovascular accident) Z86.73 ; Mood disorder F39 ; Vision loss H54.7 and Essential hypertension I10 [facility] [address] [place], [place] [address] 2024 Yonnykim Scott History of CVA (cerebrovascular accident) Z86.73 ; Panlobular emphysema J43.1 ; Primary insomnia F51.01 and Hospital discharge follow-up Z09 [facility] [address] [facility] [address] [place], [place] [address] 08/22/2024 Yonny Besadama History of CVA (cerebrovascular accident) Z86.73 and Insomnia G47.00 [facility] [address] [place], [place] [address] 09/21/2024 Yonny Besson Idiopathic periphera l neuropathy G60.9 ; Paresthesia R20.2 ; Mood disorder F39 and Insomnia, unspecified type G47.00 [facility] [address] [place] [address] 10/05/2024 Yonny Besson History of CVA (cerebrovascular accident) Z86.73 ; Essential hypertension I10 ; Hemiparesis affecting right side as late effect of cerebrovascular accident I69.351 and Mood disorder F39 [facility] [address] [address] 10/18/2024 Yonny Besson Essential hypertensi on I10 ; Acquired hypothyroidism E03.9 and Hemiparesis affecting right side as late effect of cerebrovascular accident I69.351 [facility] JULIANN [address] [place] [address] 07/13/2024 Yonny Besson [facility] [address] [place] [address] 07/13/2024 Yonny Besson [facility] [address] [place] [address] 07/13/2024 Yonny Besson Ataxia R27.0 [facility] [address] [place] [address] 07/13/2024 Yonny Besson [facility] [address] [place] [address] 07/14/2024 Yonny Besson [facility] [address] [place] [address] 07/15/2024 Reanna Leanne [facility] [address] [place] [address] 07/19/2024 Yonny Besson [facility] [address] [place] [address] 07/19/2024 Yonny Besson [facility] [address] [place] [address] 08/01/2024 Yonny Besson [facility] [address] [place], [place] [address] 08/04/2024 Yonny Besson [facility] [address] [place], [place] [address] 08/09/2024 Yonny Besson [facility] [address] [place] [address] 08/31/2024 Yonny Besson Insomnia G47.00 ; Essential hypertension I10 ; Malignant hypertension I10 and Primary insomnia F51.01 [facility] [address] [place] [address] 09/02/2024 Yonny Besson [facility] [address] [place], [place] [address] 09/14/2024 Yonny Besson [facility] [address] [facility] [address] [place], [place] [address] 09/26/2024 Yonny Besson Assessments Encounter Date Diagnosis (ICD Code) Assessment [...] contributing to elevated blood pressure over baseline 10/05/2024 Essential hypertension (ICD-10 - I10) Blood pressure stable and well-controlled 10/05/2024 History of CVA (cerebrovascular accident) (ICD-10 - Z86.73) Blood pressure under good control, remains on antiplatelet agent. No evidence of recurrence of stroke disease 09/21/2024 Paresthesia (ICD-10 - R20.2) We will check her B12, ferritin, folate, magnesium, CBC, Vitamin D, CMP and thyroid panel levels today in lab. 09/21/2024 Idiopathic peripheral neuropathy (ICD-10 - G60.9) We will check her B12, ferritin, folate, magnesium, CBC, CMP, Vitamin D and thyroid panel levels today in lab. 08/31/2024 Insomnia (ICD-10 - G47.00) 08/22/2024 Insomnia (ICD-10 - G47.00) On mirtazapine. Has been on high dose temazepam in the past but I do not think this is a good idea for her. She has a long history of anxiety with possible mood component. Will start Seroquel at night for sleep. 08/22/2024 History of CVA (cerebrovascular accident) (ICD-10 - Z86.73) Blood pressure under great control. No change in plans, weight gain is good, supportive family, home health in place 2024 Panlobular emphysema (ICD-10 - J43.1) Start ICS/LABA inhaler. Twice daily. Has history of emphysema that has never been on chronic inhaler 2024 History of CVA (cerebrovascular accident) (ICD-10 - Z86.73) Overall doing well, on aspirin, IAN inhibitor, off cigarettes, Long discussion about need to stay off cigarettes. Has been off for 3 to 4 months. Will follow-up in a couple of weeks. Therapy has started with home health, son wonders about how aggressive it will be. Will reevaluate after a couple of sessions and see how she does. Consider referral to outpatient therapy as she improves Does have neurology appointment on the with [facility] neurology 07/19/2024 History of CVA (cerebrovascular accident) (ICD-10 - Z86.73) -Presenting as ED followup following recent AonC worsening of residual deficits. Known hx of Occipital CVA, had residual deficits from that event of RLE weakness and inability to walk, poor food intake. -ON statin, ASA, and Plavix + Lisinopril and Amlodipine- compliant since 06/22 but had intermittent issues w/med adherence and was still smoking prior to this -BP in ED was 164/139 on admit- CTH/Ang H&N performed and did not show any acute changes c/w new CVA; BP in office 160/100 -IN terms of neuro exam and functional status today demonstrating RLE weakness + hyperreflexia, RLE and RUE sensation loss to light touch, and sensation deficits to light touch of CN V w/o appropriate sensation- fx c/f lesion of mid to upper aquilino per AI -Reccs to present to ED- Needs MRI, well outside of window but does need eval for rehab. 07/11/2024 Pain in left hip (ICD-10 - M25.552) 07/13/2024 Ataxia (ICD-10 - R27.0) 07/11/2024 Pain in right hip (ICD-10 - M25.551) Check x-rays. Will see if PT coming to her house can help with exercises for back pain and hip pain. Will discuss x-ray results at next visit. 06/27/2024 Malignant hypertension (ICD-10 - I10) Blood pressure noted. Not at goal after hospitalization. Increase lisinopril to 20 mg. Brother is here with her today, reports that he, couple of sisters and niece will be looking into her daily to make sure she is compliant with her medications. Follow-up in 2 weeks. 06/27/2024 Occipital stroke (ICD-10 - I63.9) History of a simple stroke, needs home health to have ongoing PT/OT/nursing care. This will be set up. I performed a dted-ym-saph evaluation on this patient today, and determined that this patient cannot leave home without significant difficulty based on pain, immobility and ataxia issues. They qualify for home health evaluation for PT/OT evaluation as well as nursing care, home safety and follow-up medical care. 05/31/2024 Essential hypertension (ICD-10 - I10) she has no interest in management at this point but we did review importance 05/31/2024 Chronic insomnia (ICD-10 - F51.04) chart reviewed and has been on temazepam, valium, elavil, seroquel, duloxetine, abilify, trazodone. rec trial of mirtazepine, may need higher dose. FU in 3-4 weeks 05/28/2024 Essential hypertension (ICD-10 - I10) 05/28/2024 Diffuse myofascial pain syndrome (ICD-10 - M79.7) 06/27/2024 Acquired hypothyroidism (ICD-10 - E03.9) Back on levothyroxine. Will check TSH at appropriate time interval 05/31/2024 History of CVA (cerebrovascular accident) (ICD-10 - Z86.73) 07/11/2024 Multilevel degenerative disc disease (ICD-10 - M53.9) 10/05/2024 Hemiparesis affecting right side as late effect of cerebrovascular accident (ICD-10 - I69.351) Continuing to do home PT, using walker, no falls 07/19/2024 Mood disorder (ICD-10 - F39) 2024 Primary insomnia (ICD-10 - F51.01) Restart mirtazapine. 08/31/2024 Essential hypertension (ICD-10 - I10) 09/21/2024 Mood disorder (ICD-10 - F39) We [...] initiating fluoxetine is reasonable with close observation 10/18/2024 Hemiparesis affecting right side as late effect of cerebrovascular accident (ICD-10 - I69.351) Overall doing well, using walker. No falls. Continue home observation from family members 10/05/2024 Mood disorder (ICD-10 - F39) Fluoxetine seems to have helped augment her Seroquel. No changes in plan at this point. Follow-up 6 weeks 09/21/2024 Insomnia, unspecified type (ICD-10 - G47.00) We will keep her on 100 mg of seroquel every night to help with her insomnia and night terrors she experiences. Sleep has been a long-term issue for her. Family reports that they are waiting to hear from [facility] about a sleep medicine referral 08/31/2024 Malignant hypertension (ICD-10 - I10) 2024 Hospital discharge follow-up (ICD-10 - Z09) Personally reviewed H&P and discharge summary as available from hospital discharge documentation. Reviewed pertinent labs and test done in the hospital. Personally reconciled medication. 07/19/2024 Vision loss (ICD-10 - H54.7) 07/11/2024 History of CVA (cerebrovascular accident) (ICD-10 - Z86.73) Blood pressure not at goal. Add amlodipine as noted below 06/27/2024 Hospital discharge follow-up (ICD-10 - Z09) Personally reviewed H&P and discharge summary as available from hospital discharge documentation. Reviewed pertinent labs and test done in the hospital. Personally reconciled medication. 05/28/2024 Mood disorder (ICD-10 - F39) 07/11/2024 Current moderate episode of major depressive disorder, unspecified whether recurrent (ICD-10 - F32.1) Add mirtazapine for sleep and depression issues. 07/19/2024 Essential hypertension (ICD-10 - I10) -BP poorly controlled on 20mg lisinopril and 5mg amlodipine -Does need evaluation inpatient as noted in ED 08/31/2024 Primary insomnia (ICD-10 - F51.01) 07/11/2024 Vision loss (ICD-10 - H54.7) Refer to ophthalmology for evaluation 07/11/2024 Essential hypertension (ICD-10 - I10) 07/11/2024 Routine medical exam (ICD-10 - Z00.00) Diminished functional status, home health involved, fall risk currently mitigated by home health. Poor recall of 3 words. Son is healthcare surrogate. Positive depression diagnosis, screening not indicated. Wishes to hold off on colon screening till more stable from other perspectives here Plan Of Treatment Pending Test Test Name Order Date Ultrasound : Carotids 05/04/2020 X ray : Spines, Lumbar 07/11/2024 X ray : Hip, Bilateral 07/11/2024 EEG 06/29/2015 DEXA Hip and Spine - Screening 0 Echocardiogram 12/19/2020 Holter Monitor : Event Recorder 05/05/19 21 Physical Therapy 11/23/2019 X ray : SI Joints 07/11/2024 Mammogram : Bilateral 11/09/2019 Mammogram : Bilateral 10/19/2017 Occupational Therapy : Eval & Treatment 11/23/2019 X ray : Shoulder, left, complete 020 H-CBC with AUTO DIFF 05/03/2015 H-CMP 05/03/2015 H-LIPID PANEL 05/03/2015 H-TSH 05/03/2015 H-MISCELLANEOUS TEST 07/02/2015 C-CBC 06/19/2016 C-CBC 06/29/2015 C-CBC 01/10/2019 C-CBC 08/23/2018 C-CBC 05/26/2019 C-Sed Rate (ESR) 08/23/2018 C-BASIC METABOLIC 06/19/2016 C-CMP 04/24/2020 C-CMP 06/29/2015 C-CMP 04/11/2016 C-CMP 08/23/2018 C-CMP 01/10/2019 C-CMP 05/26/2019 C-CMP 11/25/2017 C-LIPID PANEL 11/25/2017 C-LIPID PANEL 05/26/2019 C-LIPID PANEL 01/10/2019 C-LIPID PANEL 08/23/2018 C-LIPID PANEL 04/24/2020 C-MAGNESIUM 11/25/2017 C-TSH 05/26/2019 C-TSH 04/11/2016 C-TSH 08/23/2018 C-TSH 01/10/2019 C-TSH 06/29/2015 C-HEPATITIS PANEL 06/08/2017 C-VITAMIN B12 06/29/2015 C-HGBA1C 04/26/2020 C-PTT 06/19/2016 C-PT/INR 06/19/2016 C-URINALYSIS 06/19/2016 C-URINALYSIS 06/29/2015 C-VITAMIN D, 25-HYDROXY 05/26/2019 C-VITAMIN D, 25-HYDROXY 01/10/2019 C-VITAMIN D, 25-HYDROXY 08/23/2018 C-DRUG SCREEN 12 PANEL 01/11/2018 C-DRUG SCREEN 12 PANEL 11/25/2017 C-DRUG SCREEN 12 PANEL 06/29/2015 12 PANEL DRUG SCREEN, URINE 06/11/2017 M-Complete Blood Count Auto Diff 021 M-Comprehensive Metabolic Panel 12/18/19 M-Hemoglobin A1C 12/17/2020 M-Magnesium 12/17/2020 M-Lipid Panel 12/17/2020 M-Thyroid Stimulating Hormone 12/17/2020 M-Vitamin B12 11/02/2019 M-Vitamin B12 12/17/2020 CT Scan : Chest, Lung Cancer Screening 0 09/21/2023 MRI BRAIN WO 07/13/2024 Future Test Test Name Order Date C-GGT 02/04/2017 C-CMP 02/04/2017 C-HEPATITIS PANEL 02/04/2017 Next Appt Details Provider Name:Yonny Scott, 11/16/2024 09:30:00 AM, [address] [place] [address], [address], [place], [address], Insurance Providers Payer Name Payer Address Payer Phone Subscriber Number Group Number Insured Name Patient Relationship to Insured Coverage Start Date Coverage End Date [employer] MEDICARE [address] [address] [place] [address] [id number] [place] Mata Self - patient is the insured Medications Administered Medication Instructions Date of Administration Dosage Notes Promethazine 04/23/2020 1 mL Triamcinolone Acetonide 40mg Injection 05/26/2019 1 mL Triamcinolone Acetonide 40mg Injection 04/23/2020 1 mL Kenalog 11/08/2012 1 mL Medical (General) History Medical History History ICD Code hypothyroidism fibromyalgia HTN Insomnia Degenerative Disc Disease Restless Leg Syndrome Possible seizure Alcoholism - recovering Chronic pain, myofascial and degenerativ e joint disease Stroke 03/2020 stroke 11/2022 Surgical History Surgery Date(Month/Year) infecton in lungs taken out 1996 tonsillectomy surgery on toes carpal tunnel tubal ligation gallbladder hole in right eardrum fixed cyst taken off of right breast rt hip replacement 07/28/2016 Hospitalization History Reason Date(Month/Year) H 05/2024 [facility]- stroke 11/2022 rt hip replacement 07/28/2016 shut down kidneys broken pelvic bone child x 2 times pneumonia x 8-10 times Stroke 07/19/2024
--- OUTSIDE RECORDS SUMMARY | 2024-10-29 23:19 | XMS_ITS | Clinical Summary ---
Author Organization [facility] [place] [address] Care Team Providers Care Manager Global Name Role Phone Unavailable Primary Care Provider Unavailabl e Social History Tobacco Use Types Packs/Day Years Used Date Smoking Tobacco: Never Assessed Comments Unknown Sex and Gender Information Value Date Recorded Sex Assigned at Not on file Legal Sex Female 4:12 AM EDT Gender Identity Not on file Sexual Orientation Not on file Plan of Treatment Health Maintenance Due Date Last Done Comments Annual Wellness Exam 1961 Hepatitis C Screening 1976 DTaP/TDaP/Td (1 - Tdap) 1977 Cologuard 08/09/2003 Colon Cancer Screening 08/09/2003 Colonoscopy 08/09/2003 FIT 08/09/2003 Sigmoidoscopy 08/09/2003 Virtual Colonography 08/09/2003 Pneumococcal Vaccine 50+ (1 of 1 - PCV) 2008 Zoster (1 of 2) 2008 Bone Density Screening 08/09/2023 COVID-19 Vaccine ( - 2023-2 5 season) 2024 Influenza Vaccine (#1) 2024 Hepatitis B Vaccine Aged Out No longe r eligible based on patient's age to complete this topic Meningococcal B Vaccine Aged Out No l onger eligible based on patient's age to complete this topic
--- NOTE | 2024-10-29 23:20 | HMH.EDGENADL ---
Discharge Plan Disposition Patient Disposition: Xfer Short-Term Hosp Prescriptions Prescriptions: No Action pramipexole 1 mg tablet 1 mg PO TIDP PRN (Reason: Restless Leg(S)) Qty: 90 1RF atorvastatin 40 mg Tablet 40 mg PO HS 30 Days Qty: 30 0RF clopidogrel 75 mg Tablet 75 mg PO DAILY 20 Days Qty: 20 0RF levothyroxine [Synthroid] 50 mcg Tablet 50 mcg PO DAILYDM 30 Days Qty: 30 0RF lisinopril 10 mg Tablet 10 mg PO DAILY 30 Days Qty: 30 0RF aspirin 81 mg Tablet,Delayed Release (Dr/Ec) 81 mg PO DAILY 30 Days Qty: 30 0RF Referrals Follow up/Referrals: Yonny Scott MD [Primary Care Provider, Internal Medicine] - See instructions Clinical Impressions Clinical Impression: Intraventricular hemorrhage, Retrobulbar hematoma, Fall Stand Alone Forms Stand Alone Forms: Transfer Record - ED Print Language Print Language: Vietnamese Discharge ED Provider: Alfonso Anderson General Adult HPI General Stated complaint: AO 9-6 fell and hurt face , right arm pain Time Seen by Provider: 10/29/24 23:10 History of Present Illness HPI narrative: 64-year-old female with a history of prior strokes on Plavix presents to the ER after falling out of bed onto the floor striking her face. No known loss of consciousness. Patient does not recall how it happened just woke up on the floor. Patient has swelling of the right side of the face as well as bleeding from the right eye and small amount of blood in the mouth. She has no complaints of pain anywhere except the right side of the face. No new weakness, numbness, or tingling. No recent illness. No other complaints or concerns. Family presents with her at bedside and states they did not witness the fall. She does have a history of severe hypertension. Related Data Previous Rx's ?Medication ?Instructions ?Recorded aspirin 81 mg tablet,delayed 81 mg PO DAILY 30 days #30 tabs 12/01/22 release pramipexole 1 mg tablet 1 mg PO TIDP PRN Restless Leg(S) 05/27/24 #90 tabs atorvastatin 40 mg tablet 40 mg PO HS 30 days #30 tabs 06/22/24 clopidogrel 75 mg tablet 75 mg PO DAILY 20 days #20 tabs 06/22/24 levothyroxine 50 mcg tablet 50 mcg PO DAILYDM 30 days #30 tabs 06/22/24 (Synthroid) lisinopril 10 mg tablet 10 mg PO DAILY 30 days #30 tabs 06/22/24 Allergies Allergy/AdvReac Type Severity Reaction Status Date / Time Cephalosporins Allergy Unknown Unknown Verified 12/28/23 11:12 allergy reaction Penicillins Allergy Unknown Unknown Verified 12/28/23 11:12 allergy reaction Sutures Allergy Unknown Verified 12/28/23 11:12 allergy reaction PFSH PFSH Disclaimer: The information contained in this section may have been updated after the patient was seen, as this information can be updated by other users. Medical History Cardiomyopathy History of CVA (cerebrovascular accident) Incontinence Renal artery stenosis Smoker Insomnia Acquired hypothyroidism IFG (impaired fasting glucose) Left leg paresthesias Abnormal head CT MARTINA (obstructive sleep apnea) History of paresthesia RLS (restless legs syndrome) Essential hypertension Carotid artery stenosis Left carotid bruit Cardiac murmur Restless sleeper Family history of early CAD Claudication Dyspnea Edema Ex-smoker Abnormal EKG HLD (hyperlipidemia) HTN (hypertension) Surgical History History of carpal tunnel surgery Hx of tonsillectomy Hx of tubal ligation Hx of cholecystectomy History of thoracotomy History of right hip replacement Family History Mother Hypertension Diabetes Other Hyperlipidemia Social History Smoking Status: Unknown if ever smoked years smoked: 51 quit status: not considering quitting second hand exposure: No alcohol intake: current substance use type: denies use current occupational status: disabled Travel in the last 8 weeks?: None household members: other housing: house caffeine: Yes Other Medical History Have you received the Flu Vaccine for this season: No Have you received the Pneumonia Vaccine: No ROS Obtained: Yes Systems reviewed as appropriate & no additional complaints except as documented Per HPI Physical Exam General General appearance: alert and in no apparent distress Head Head exam: normocephalic and other (Swelling of the right side of the face, significant right periorbital swelling and bruising with laceration to the right upper eyelid, no obvious dental injury but there is blood in the mouth) Eye Eye exam: Present PERRL and EOMI ENT ENT exam: Present mucous membranes moist Neck Neck exam: Present normal inspection, full ROM and other (C-collar applied upon arrival to the ER) Chest Chest inspection: Present symmetric chest wall rise Respiratory Respiratory exam: Present normal lung sounds bilaterally; Absent respiratory distress, wheezes or stridor Cardiovascular Cardiovascular exam: Present regular rate and normal rhythm Abdominal Exam Abdominal exam: Present soft; Absent distention or tenderness Extremities Exam Extremities exam: Present full ROM and other (Right upper extremity skin tear) Neurological Exam Neurological exam: Present alert and oriented X3; Absent motor sensory deficit (Mild right sided weakness stable from prior, unchanged) Psychiatric Psychiatric exam: Present normal affect and normal mood Skin Skin exam: Present warm and dry Medical Decision Making Medical Records Medical records reviewed: Yes I reviewed the patient's medical records. Screening: Per USPSTF and CDC recommendations, given the prevalence of disease in our region, it is our hospital?s policy to screen for HIV and viral Hepatitis for all patients aged 18 and over and those with ongoing risk factors. Hardeep Inquiry Pt receiving controlled substance: No Vital Signs: 10/29/24 23:19 10/30/24 00:49 10/30/24 00:54 Temperature 97.8 F Temperature Source Axillary Pulse Rate 127 H 113 H Pulse Rate [Left] 57 L Respiratory Rate 18 12 12 Blood Pressure 220/122 H 170/94 H Blood Pressure [Right Arm] 171/76 H Blood Pressure Mean [Right Arm] 107 Blood Pressure Source Blood Pressure Position 02 Sat by Pulse Oximetry 98 100 100 Oxygen Delivery Method Room Air 10/30/24 01:03 10/30/24 01:27 Temperature 98.9 F Temperature Source Pulse Rate 91 H 92 H Pulse Rate [Left] Respiratory Rate 13 18 Blood Pressure 126/62 159/91 H Blood Pressure [Right Arm] Blood Pressure Mean [Right Arm] Blood Pressure Source Automatic Cuff Blood Pressure Position Supine 02 Sat by Pulse Oximetry 100 Oxygen Delivery Method Mechanical Ventilation Lab Data Lab Results 10/29/24 23:13: WBC 16.4 H, RBC 4.61, Hgb 12.6, Hct 39.8, MCV 86.3, MCH 27.3, MCHC 31.7 L, RDW 12.5, Plt Count 298, MPV 9.9, Neut % (Auto) 76.7, Lymph % (Auto) 17.1, [place] % (Auto) 4.6, Eos % (Auto) 0.8, Baso % (Auto) 0.4, Neut # (Auto) 12.6 H, Lymph # (Auto) 2.8, [place] # (Auto) 0.8, Eos # (Auto) 0.1, Baso # (Auto) 0.1, PT 11.4, INR 1.03, APTT 22.8, Sodium 140, Potassium 3.8, Chloride 105, Carbon Dioxide 26, Anion Gap 12.8, BUN 17, Creatinine 0.90, Estimated GFR 63, Est GFR ( Amer) 76, Glucose 173 H, Calcium 9.8, Total Bilirubin 0.4, AST 28, ALT 14, Alkaline Phosphatase 154 H, Total Protein 8.1, Albumin 4.7, Globulin 3.4 H, Albumin/Globulin Ratio 1.4 10/29/24 23:13 10/29/24 23:13 Orders (Tests/Meds): ED MEDICATIONS Generic Name Dose Route Start Last Admin Trade Name Freq PRN Reason Stop Dose Admin Fentanyl Citrate 1,000 mcg/ 100 mls @ 1 mls/hr 10/30/24 01:06 10/30/24 01:14 Sodium Chloride IV 11/29/24 01:05 10 mcg/hr .Q24H BACILIO 1 mls/hr Protocol Administration 10 MCG/HR Midazolam/Sodium Chloride 50 mg in 50 mls @ 1.225 mls/hr 10/30/24 01:15 10/30/24 01:13 Midazolam 50 Mg/50 Ml-0.9%Nacl IV 11/29/24 01:14 0.02 mg/kg/hr .Q24H BACILIO 1.23 mls/hr Protocol Administration 0.02 MG/KG/HR Sodium Chloride 10 ml 10/29/24 23:12 10/29/24 23:48 Sodium Chloride 0.9% 10ml Flush Syringe IV 11/28/24 23:11 10 ml NEEDED PRN Administration Maintain IV Site Sodium Chloride 10 ml 10/29/24 23:47 Sodium Chloride 0.9% 10ml Syr (Rad Only) IV 11/28/24 23:46 NEEDED PRN Maintain IV Site Discontinued Medications Generic Name Dose Route Start Last Admin Trade Name Freq PRN Reason Stop Dose Admin Fentanyl Citrate 50 mcg 10/30/24 01:04 10/30/24 01:06 Fentanyl 250mcg/5ml Vial IV 10/30/24 01:05 50 mcg ONCE ONE Administration Iopamidol 160 ml 10/29/24 23:47 10/29/24 23:48 Iopamidol-370 (76%);100ml Bottle IV 10/29/24 23:48 160 ml ONCE ONE Administration Lidocaine/Epinephrine 3 ml 10/29/24 23:29 10/30/24 00:13 Lidocaine 1% W/Epi 1:100,000 20ml Vial SQ 10/29/24 23:30 3 ml ONCE ONE Administration Midazolam HCl 1 mg 10/30/24 00:10 10/30/24 00:14 Midazolam 2mg/2ml Vial IV 10/30/24 00:11 1 mg ONCE ONE Administration Midazolam HCl 2 mg 10/30/24 01:04 10/30/24 01:06 Midazolam 2mg/2ml Vial IV 10/30/24 01:05 2 mg ONCE ONE Administration Sodium Chloride 80 ml 10/29/24 23:47 10/29/24 23:48 0.9 % Sodium Chloride 50 Ml Vial IV 10/29/24 23:48 80 ml ONCE ONE Administration Tetanus/Reduced Diphtheria/Acell Pertussis 0.5 ml 10/30/24 00:28 10/30/24 00:54 Tet/Diphth/Pert-Adult 0.5ml Syringe IM 10/30/24 00:29 0.5 ml .ONCE ONE Administration ORDERS Category Date Time Status CT angio abd/pel - TRAUMA Stat Cat Scan 10/29/24 23:[address] angio chest - dissection Stat Cat Scan 10/29/24 23:[address] angio head Stat Cat Scan 10/29/24 23:[address] angio neck Stat Cat Scan 10/29/24 23:[address] cervical spine wo con Stat Cat Scan 10/29/24 23:[address] facial bones wo con Stat Cat Scan 10/29/24 23:[address] head/brain wo con Stat Cat Scan 10/29/24 23:[address] lumbar spine wo con Stat Cat Scan 10/29/24 23:[address] thoracic spine wo con Stat Cat Scan 10/29/24 23:10 Completed CXR --portable [XR chest portable] Stat Exams 10/30/24 01:13 Taken POCUS Point of Care (ER Only) Stat Exams 10/29/24 23:17 Completed Activated Partial Thrombo Time Stat Lab 10/29/24 23:13 Completed Complete Blood Count Auto Diff Stat Lab 10/29/24 23:13 Completed Comprehensive Metabolic Panel Stat Lab 10/29/24 23:13 Completed Prothrombin Time INR Stat Lab 10/29/24 23:13 Completed Medical Decision Narrative: In summary, this 64-year-old female presents to the emergency department today with face first fall on blood thinners with significant right face swelling. On initial evaluation patient is hemodynamically stable, afebrile, GCS 15 on arrival, patient has unchanged right sided deficits from previous CVA, significant right sided facial swelling with tenderness, initial intraocular pressure of the right eye was 28 with brisk pupillary reaction, I do have concern for possible retrobulbar hematoma. Patient is hemodynamically stable with no pain or tenderness elsewhere, small skin tear on the right arm. Differential diagnosis includes but is not limited to intracranial bleed, C-spine injury, retrobulbar hematoma, ocular injury, facial fractures, I also considered the possibility of other injuries to the axial spine, intrathoracic or intra-abdominal injuries. Based on these concerns, I ordered emergent CT imaging including angiography, hematologic and serum labs. I am anticipating patient may need a lateral canthotomy but at this time she has full range of motion of her right eye with extraocular movements, brisk capillary refill and pressure is less than 30. Will recheck when she comes back from CT. Labs personally reviewed demonstrate mild leukocytosis, no anemia, normal platelets, PT/INR and APTT normal, CMP nonactionable. Patient came back from CT and the eye appeared more proptotic with limited extraocular movements, intraocular pressures 55. She was also developing blurriness of the vision in the right eye compared to the left. Proceeded with lateral canthotomy. Details of procedure are as follows: Indication: Intraocular pressure elevated with likely retrobulbar hematoma, area cleaned with iodine, consent had been provided verbally by family at bedside but this is an emergent procedure. Patient received 1 mg of IV Versed to help with comfort during the procedure. 3 mL 1% lidocaine with epinephrine injected at the lateral aspect of the right eye Hemostats clamped over the lateral canthus, lateral canthus was cut with only slight improvement of intraocular pressure into the upper 40s, lower canthus was also cut with more dramatic improvement. Intraocular pressures are now 35 and trending down. Pain is improved. Patient tolerated procedure well. I personally interpreted CTs of the spine and do not appreciate acute axial injury, c-collar was cleared by me. Head CT demonstrates abnormality within the ventricles unclear to me if this is new because patient has previous intraventricular abnormalities. I received a phone call from reading radiologist nearly immediately that patient has acute IVH. She is still mentating with a GCS 15 but due to the intraventricular bleed and being on dual antiplatelet therapy without the ability to reverse with DDAVP at this time, I am going to proceed with intubation. Family is aware of all of these things and agreeable. Patient requires transfer to higher level of care and they are agreeable to this as well. I spoke with Dr. Oreilly at transfer center who graciously accepted the patient for transfer. Prior to transfer patient was intubated with etomidate and succinylcholine. Patient tolerated intubation well. Postintubation chest x-ray personally interpreted demonstrates good tube positioning. Patient remains hemodynamically stable. She is on a fentanyl and Versed drip for sedation. Oxygenating well. Bilateral breath sounds present. Immediately prior to transfer patient was reassessed. She remains hemodynamically stable. Tolerating sedation well. Tdap has been administered. Pupils are equal and reactive though the right pupil is still slightly sluggish compared to the left. Patient was transferred in currently stable but critical condition. Procedures Risk/Benefits of Procedure(s) Were Explained: Yes Intubation Mallampati Score:: Class III Time out performed: Yes sedative: Etomidate Mg Given: 20 paralytic: Succinylcholine Mg Given: 70 Laryngoscope: other (MAC 3 video laryngoscopy) ET Tube Size: 7 ET Tube Uncuffed: Yes Tube Secured Depth (cm): 22 Tube Secured Location: teeth Tube Placement Confirmation: visualized tube passing through cords, equal breath sounds bilaterally and no breath sounds over epigastrium Patient Tolerated Procedure: well and no complications Intubation Complications: none Additional Comments: Postintubation chest x-ray demonstrates good positioning of the tube Critical Care Critical Care Time Critical Care Time: Yes Attestation: On 10/29/24, the high probability of a clinically significant, sudden or life threatening deterioration of the following system(s) required my full and direct attention, intervention and personal management. The time I documented below is in addition to time spent performing reported procedures but includes the following listed in this critical care notation. Total Time Total Critical Care Time: 45
--- OUTSIDE RECORDS SUMMARY | 2024-10-29 23:20 | XMS_ITS | Encounter Summary ---
Author Organization Healthcare Address [address] [place] [address] Care Team Providers Care Oleo Hasher And Renderer Name Role Phone Aman Hernandez MD Primary Care Provider Encounter Details Date Type Department Care Team (Late Contact Info) Description 10/20/2022 Orders Only External Location [address] [place] [address] Nathaniel Gomez MD [address] [facility] [address] [place] [address] Social History Tobacco Use Types Packs/Day Years Used Date Smoking Tobacco: Every Day Cigarettes 1 40 Smokeless Tobacco: Never PHQ-2 Answer Date Recorded Patient Health Questionnaire-2 Score 6 07/08/2021 Comments Unknown Sex and Gender Information Value Date Recorded Sex Assigned at Female 06/10/2021 3:35 PM EDT Legal Sex Female 8:23 PM EDT Gender Identity Female 06/10/2021 3:35 PM EDT Sexual Orientation Not on file documented as of this encounter Plan of Treatment Upcoming Encounters Date Type Department Care Team (Late st Contact Info) Description 11/21/2024 12:45 PM EDT Office Visit [facility] [address] [place] [address] Navya Woody MD [address] [facility] [address] [place] [address] documented as of this encounter Procedures Procedure Name Priority Date/Time Associated Diagnosis Comments CT ANGIO HEAD 10/20/2022 12:34 PM EDT documented in this encounter Results * CT Angio Head (10/20/2022 12:34 PM EDT) Anatomical Region Laterality Modality [place] Computed Tomogr aphy 10/20/2022 12:3 4 PM EDT Nathaniel Gomez MD IMG CT PROCEDURES Final Result documented in this encounter Visit Diagnoses Not on filedocumented in this encounter Additional Health Concerns Assessment Noted Time PHQ-9 Depression Total Score: 22 022 2:00 PM EDT A fall risk assessment has been complete d for the patient 07/08/2021 2:00 PM EDT documented as of this encounter Care Teams Oleo Hasher And Renderer Relationship Specialty Start Date End Date Aman Hernandez MD [address] [facility] [address] [place] [address] PCP - General Family Medicine 06/18/21 documented as of this encounter
--- OUTSIDE RECORDS SUMMARY | 2024-10-29 23:20 | XMS_ITS | Clinical Summary ---
Author Organization [facility] Address [address] [place] [address] Care Team Providers Care Conference Interpreter Name Role Phone Aman Hernandez MD Primary Care Provider Allergies Active Allergy Reactions Criticality Noted Date Comments Cephalosporins Other - please docum ent in the comment field Low 11/26/2022 Other Other - please docum ent in the comment field Low 06/19/2023 Vicryl sutures Penicillin G Unknown - Patient st ates they do not know rxn details Low 05/09/2021 Penicillins Other - please docum ent in the comment field Low 04/14/2006 Medications pramipexole (Mirapex) 1 MG tablet pramipexole 1 mg tablet Active amLODIPine (Norvasc) 5 MG tabletIndication s:Essential (primary) hypertension Take 1 tablet (5 mg total) by mouth 1 (one) time each day. 30 tablet 5 2 Active Aspirin Low Dose 81 MG EC tablet Take 1 tablet (81 mg) by mouth 1 (one) time each day. 3 Active atorvastatin (Lipitor) 40 MG tablet Take 1 tablet (40 mg) by mouth 1 (one) time each day. 4 Active clopidogrel (Plavix) 75 MG tablet 1 tablet (75 mg). 3 Active hydroCHLOROthiaz jose l (HYDRODiuril) 25 MG tablet Take 1 tablet (25 mg) by mouth 1 (one) time each day. Active hydrOXYzine pamoate (Vistaril) 25 MG capsule TAKE 1 TO 2 CAPSULES BY MOUTH AT BEDTIME NIGHTLY NEEDED FOR SLEEP. 4 Active levothyroxine (Synthroid, Levoxyl) 50 MCG tablet Take 1 tablet (50 mcg) by mouth 1 (one) time each day. 4 Active Melatonin 10 MG tablet Take by mouth. Activ e metoprolol succinate XL (Toprol-XL) 25 MG 24 hr tablet Take 1 tablet (25 mg) by mouth 1 (one) time each day. 4 Active mirtazapine (Remeron) 15 MG tablet Take 1 tablet (15 mg) by mouth 1 (one) time each day. Active oxybutynin XL (Ditropan-XL) 5 MG 24 hr tablet Take 1 tablet (5 mg) by mouth 1 (one) time each day. 3 Active sertraline (Zoloft) 50 MG tabletIndication s:Major depressive disorder, recurrent, moderate (CMS/HCC) Take 1 tablet (50 mg) by mouth 1 (one) time each day. 30 tablet 1 4 Active QUEtiapine (SEROquel) 25 MG tabletIndication s:Insomnia, unspecified type Take 1 tablet (25 mg) by mouth every night. 30 tablet 1 4 Active Active Problems No known active problems Immunizations Immunization Administration Dates Next Due Hep A, Adult 10/31/2009 Influenza, Split (incl. rogelio fied surface antigen) 12/05/2009 Influenza, injectable, MDCK, preservative free, quadrivalent 02/03/2022 Influenza, injectable, quadrivalent 10/08/2017,1 03/03/2016 Influenza, injectable, quadr ivalent, preservative free 11/10/2022,02/01/2021,01/10/2019 Influenza, recombinant, quad rivalent, injectable, preservative free 11/02/2019 Influenza, seasonal, injecta ble, preservative free 12/12/2010 Pneumococcal 20-roderick Conj Vaccine 12/09/2022 Pneumococcal Polysaccharide PPV23 01/10/2019, Tdap 07/16/2009 Family History Medical History Relation Name Comments Diabetes Brother Diabetes Mother Diabetes Sister Relation Name Status Comments Brother Mother Sister Social History Tobacco Use Types Packs/Day Years Used Date Smoking Tobacco: Former Cigarettes 1 40 Passive Smoke Exposure: Never Smokeless Tobacco: Never Tobacco Cessation:Counseling Given: Not Answered Humiliation, Afraid, Rape, and Kick questionnair e Answer Date Recorded Within the last year, have y ou been afraid of your partner or ex-partner? No 05/22/2023 Within the last year, have y ou been humiliated or emotionally abused in other ways by your partner or ex-partner? No Within the last year, have y ou been kicked, hit, slapped, or otherwise physically hurt by your partner or ex-partner? No 05/22/2023 Within the last year, have y ou been raped or forced to have any kind of sexual activity by your partner or ex-partner? No 05/22/2023 PHQ-2 Answer Date Recorded Patient Health Questionnaire-2 Score 6 05/22/2023 Hunger Vital Sign Answer Date Recorded Within the past 12 months, y ou worried that your food would run out before you got the money to buy more. Never true 05/22/19 24 Within the past 12 months, t he food you bought just didn't last and you didn't have money to get more. Never true 05/22/2023 PRAPARE - Transportation Answer Date Re corded In the past 12 months, has l ack of transportation kept you from medical appointments or from getting medications? No 04/24 In the past 12 months, has l ack of transportation kept you from meetings, work, or from getting things needed for daily living? No 05/22/2023 Housing Stability Vital Sign Answer Luciano e Recorded In the last 12 months, was t here a time when you were not able to pay the mortgage or rent on time? No 05/22/2023 Number of Places Lived in the Last Year Not on f ile 05/22/2023 In the last 12 months, was t here a time when you did not have a steady place to sleep or slept in a alf (including now)? No 05/22/2023 PHQ-9 Answer Date Recorded Patient Health Questionnaire-9 Score 24 05/22/2023 Safety and Environment Answer Date Rubin rded Do you worry that your child may have been physically abused? No 05/22/2023 Do you worry that your child may have been sexua lly abused? No 05/22/2023 Are there any guns kept in o r around your home or where your child spends time? No 05/22/2023 Guns Unloaded or Locked Away Not on file Utilities Answer Date Recorded In the past 12 months has e electric, gas, oil, or water company threatened to shut off services in your home? No 05/22/2023 Comments Unknown Sex and Gender Information Value Date Recorded Sex Assigned at Female 06/10/2021 3:35 PM EDT Legal Sex Female 8:23 PM EDT Gender Identity Female 06/10/2021 3:35 PM EDT Sexual Orientation Not on file Last Filed Vital Signs Vital Sign Reading Time Taken Comments Blood Pressure 122/84 06/19/2023 3:29 PM EDT Pulse 74 06/19/2023 3:29 PM EDT Temperature 36.9 C (98.4 F) 05/22/2023 3:03 PM EDT Respiratory Rate 18 07/08/2021 1:58 PM EDT Oxygen Saturation 97% 06/19/2023 3:29 PM EDT Inhaled Oxygen Concentration - - Weight 58.9 kg (129 lb 13.6 oz) 06/19/2023 3:29 PM EDT Height 160 cm (5' 3 ) 06/19/2023 3:29 PM EDT Body Mass Index 23 06/19/2023 3:29 PM EDT Plan of Treatment Upcoming Encounters Date Type Department Care Team (Late st Contact Info) Description 11/21/2024 12:45 PM EDT Office Visit [facility] [address] [place] [address] Navya Woody MD [address] [place] [address] Health Maintenance Due Date Last Done Comments [facility]-Bone Density Scan 1960 [facility]-Medicare Annual Wellness (AWV) 1960 [facility]-/Child/Adol SDOH Screenings 1960 [facility]- SDOH Screenings 1976 [facility]-Adult SDOH Screenings 1976 CT Colonography 08/09/2003 Colonoscopy 08/09/2003 FIT-DNA 08/09/2003 FIT 08/09/2003 FOBT 08/09/2003 Sigmoidoscopy 08/09/2003 [facility]-Colorectal Cancer Screening 08/09/2003 [facility]-Breast Cancer Screening 06/30/2013 07/01/2011 [facility]-RSV Vaccine: 60+ Years or (1 - Risk 60-74 years 1-dose series) 2018 [facility]-DTaP,Tdap,and Td Vaccines (2 - Td or Tdap) 07/17/2019 07/16/2009 [facility]-Zoster Vaccines (2 of 2) 11/16/2023 09/21/2023 [facility]-Depression Screening 05/21/2024 05/22/2023, 04/24 [id number] Vaccine (2024- season) 2024 02/03/2022, 02/01/2021, 06/06/2020, Additional history exists [facility]-Influenza Vaccine (#1) 10/24/202411/10, 02/03/2022, 02/01/2021, Additional history exists [facility]-Diabetes: Hemoglobin A1C 07/20/2025 07/20/2024, 05/22/2023, 06/10/2021 [facility]-Hepatitis A Vaccines Aged Out 10/31/2009 No longer eligible based on patient's age to complete this topic [facility]-Cervical Cancer Screening Discontinued [facility]-Pap Smear Discontinued 04/28/2013 [facility]-Lung Cancer Screening Discontinued 10/20/2022 [facility]-Pneumococcal Vaccine: 50+ Years Completed 12/09/2022, 01/10/2019, 07/16/2009 [facility]-Hepatitis C Screening Completed 05/22/2023 HPV Vaccines Aged Out No longer eligi ble based on patient's age to complete this topic [facility]-HIB Vaccines Aged Out No longer e ligible based on patient's age to complete this topic [facility]-HPV/Cotest Discontinued [facility]-IPV Vaccines Aged Out No longer e ligible based on patient's age to complete this topic [facility]-Rotavirus Vaccines Aged Out No lo nger eligible based on patient's age to complete this topic Procedures Procedure Name Priority Date/Time Associated Diagnosis Comments HEPATITIS C ANTIBODY W/REFLEX TO HCV QUANT PCR Routine 05/22/2023 4:08 PM EDT Need for hepatitis C screening test HEMOGLOBIN A1C Routine 05/22/2023 4:[address] ANGIO CHEST 10/20/2022 12:44 PM EDT from Last 3 Months or Most Recently Relevant to Health Maintenance Results * Hepatitis C Antibody w/Reflex to HCV Quant PCR (05/22/2023 4:08 PM EDT) Hepatitis C Antibody Negative Negative 05/22/2023 6:50 PM EDT [facility] Blood Venous blood specimen / Unknown Venipuncture / Unknown 05/22/2023 4:08 PM EDT 05/22/2023 4:08 PM EDT Jennifer Adhikari APRN LAB BLOOD ORDERABLES Evelyn l Result Performing Organization Address City/State/[facility] de Phone Number [facility] [address] [place] [address] * (ABNORMAL) Hemoglobin A1c (05/22/2023 4:08 PM EDT) Hemoglobin A1c 6.0(H) <5.7 % 05/22/2023 7:37 PM EDT [facility] Blood Venous blood specimen / Unknown Venipuncture / Unknown 05/22/2023 4:08 PM EDT 05/22/2023 4:08 PM EDT Narrative [facility] - 05/22/2023 7:37 PM EDT HA1C Interpretive Data: Diagnosis of Diabetes: Diabetic > or = 6.5% Pre-diabetic 5.7 to 6.4% Non-diabetic < or = 5.6% Glycemic Targets for Type I and Type II Diabetics: Non- Adults <7.0% Adults <6.0% Children and Adolescents <7.5% Source: [place] [employer]. Standards of medical care in diabetes,2017. Diabetes Care.2017:40 (suppl 1):S1-S135. HbA1c assay performed by an ion-exchange chromatography method that is certified traceable to the DCCT. Jennifer Adhikari APRN LAB BLOOD ORDERABLES Evelyn l Result [facility] [address] [place] [address] * CT Angio Chest (10/20/2022 12:44 PM EDT) Anatomical Region Laterality Modality Chest Computed Tomogra phy 10/20/2022 12:4 4 PM EDT Nathaniel Gomez MD IMG CT PROCEDURES Final Result from Last 3 Months or Most Recently Relevant to Health Maintenance Insurance [address] [facility] [id number] MEDICARE Care Teams Conference Interpreter Relationship Specialty Start Date End Date Aman Hernandez MD [address] [facility] [address] [place] [address] PCP - General Family Medicine 06/18/21
--- OUTSIDE RECORDS SUMMARY | 2024-10-29 23:20 | XMS_ITS | Encounter Summary ---
Author Organization Healthcare Address [address] [place] [address] Care Team Providers Care Nurse Anesthetist Name Role Phone Aman Hernandez MD Primary Care Provider Encounter Details Date Type Department Care Team (Late Contact Info) Description 10/20/2022 Orders Only External Location [address] [place] [address] Nathaniel Gomez MD [address] [facility] [address] [place] [address] Social History Tobacco Use Types [...] Description 11/21/2024 12:45 PM EDT Office Visit [facility] [address] [place] [address] Navya Woody MD [address] [facility] [address] [place] [address] documented as of this encounter Procedures Procedure Name Priority Date/Time Associated Diagnosis Comments CT ANGIO CHEST 10/20/2022 12:44 PM EDT documented in this encounter Results * CT Angio Chest (10/20/2022 12:44 PM [...] documented as of this encounter Care Teams Nurse Anesthetist Relationship Specialty Start Date End Date Aman Hernandez MD [address] [address] PCP - General Family Medicine 06/18/21 documented as of this encounter
--- OUTSIDE RECORDS SUMMARY | 2024-10-29 23:20 | XMS_ITS | Encounter Summary ---
Author Organization [facility] Address [address] [place] [address] Care Team Providers Care Metal Roofing Mechanic Name Role Phone Aman Hernandez MD Primary Care Provider Reason for Referral * Consultation (Routine) - Authorized Specialty Diagnoses / Procedures Referred By Conterinn t Referred To Contact Ophthalmology Diagnoses Personal history of transient cerebral ischemia Unspecified visual loss Yonny Scott MD [address] [place] [address] [address] [place] [address] Phone: tel: fax: [facility] [address] [place] [address] Phone: tel: fax: Referral ID Status Reason Start Date Expiration Date Visits Requested Visits Authorized [id number] Authorized Specialty Services Required 07/11/2024 01/10/2026 1 1 Encounter Details Date Type Department Care Team (Late st Contact Info) Description 07/11/2024 Community [facility] [address] [place] [address] Yonny Scott MD [address] [place] [address] [address] [place] [address] Personal history of transient cerebral ischemia (Primary Dx); Unspecified visual loss Social History Tobacco Use Types Packs/Day Years Used Date Smoking Tobacco: Former Cigarettes 1 40 Passive Smoke Exposure: Never Smokeless Tobacco: Never Humiliation, Afraid, Rape, and Kick questionnair e [...] place to sleep or slept in a halfway (including now)? No 05/22/2023 PHQ-9 Answer Date [...] Description 11/21/2024 12:45 PM EDT Office Visit [facility] [address] [place] [address] Navya Woody MD [address] [facility] [address] [place] [address] Scheduled Referrals Name Type Priority Associated Diagnoses Order Schedule Ambulatory Referral to Ophthalmology Outpatient Referral Routine Personal history of transient cerebral ischemia Unspecified visual loss Ordered: 07/11/2024 documented as of this encounter Visit Diagnoses Diagnosis Personal history of transient cerebral ischemia- Primary Transient ischemic attack (TIA), and cerebral infarction without residual deficits Unspecified visual loss documented in this encounter Additional Health Concerns Assessment Noted Time PHQ-9 Depression Total Score: 24 024 3:18 PM EDT A fall risk assessment has been complete d for the patient 07/08/2021 2:00 PM EDT A Body Mass Index follow-up plan has been documented for the patient 06/19/2023 6:20 PM EDT documented as of this encounter Care Teams Metal Roofing Mechanic Relationship Specialty Start Date End Date Aman Hernandez MD [address] [place] [address] PCP - General Family Medicine 06/18/21 documented as of this encounter
--- OUTSIDE RECORDS SUMMARY | 2024-10-29 23:20 | XMS_ITS | Clinical Summary ---
Author Organization [facility] Address [address] [place] [address] Care Team Providers Care Burnt Lime Drawer Name Role Phone Yonny Scott MD Primary Care Provider + [phone] Allergies Active Allergy Reactions Criticality Noted Date Comments Cephalosporins Unknown - Low Severity 4 Penicillins Unknown - Low Severity 06/26/2009 Less than 1 y.o. - she almost Medications aspirin 81 MG EC tablet 1 tablet. 12/01/2022 Active clopidogrel (PLAVIX) 75 MG tablet Take 1 tablet by mouth Daily. 11/26/2022 Active mirtazapine (REMERON) 15 MG tablet Take 1 tablet by mouth Every Night. Active levothyroxine (SYNTHROID, LEVOTHROID) 50 MCG tablet Take 1 tablet by mouth Daily. Active lisinopril (PRINIVIL,ZESTRI L) 20 MG tablet Take 1 tablet by mouth Daily. Active amLODIPine (NORVASC) 5 MG tablet Take 1 tablet by mouth Daily. Active atorvastatin (LIPITOR) 80 MG tablet Take 1 tablet by mouth Every Night. 07/22/2024 Active pramipexole (MIRAPEX) 1 MG tablet Take 1 tablet by mouth Every Night. 07/22/2024 Active Symbicort 160-4.5 MCG/ACT inhaler Every 12 (Twelve) Hours. 2024 Active cyclobenzaprine (FLEXERIL) 10 MG tablet Take by mouth. Active oxybutynin XL (DITROPAN-XL) 5 MG 24 hr tablet Daily. 08/31/2024 Act miguel pantoprazole (PROTONIX) 20 MG EC tablet Daily. 08/31/2024 Active QUEtiapine Fumarate 150 MG tablet Daily. 08/22/2024 Active Active Problems Problem Noted Date Diagnosed Date Severe protein-calorie malnutrition 07/20/2024 Stroke 07/19/2024 Tobacco use 01/07/2023 Left renal artery stenosis s/p stent (11/2022) 1 03/09/2022 Depression 01/07/2023 HTN (hypertension) 01/07/2023 Hypothyroidism 01/07/2023 Carotid artery stenosis, symptomatic, left 01/07 Dyslipidemia 01/07/2023 Left ICA stenosis 12/26/2022 Bilateral carotid artery stenosis 12/15/2022 Stenosis of left subclavian artery s/p stent () 12/15/2022 Encounters Date Type Department Care Team Description 09/01/2024 3:00 PM EDT Office Visit [facility] [address] [facility] [address] [place] [address] Eva Daley APRN History of stroke (Primary Dx); Bilateral carotid artery stenosis; Tobacco use; Hyperlipidemia LDL goal <70; Depression as late effect of cerebrovascular accident (CVA); Insomnia, unspecified type; Right sided weakness 09/01/2024 Travel from Last 3 Months Social History Tobacco Use Types Packs/Day Years Used Date Smoking Tobacco: Former Cigarettes 0.3 50 Passive Smoke Exposure: Past Smokeless Tobacco: Never Tobacco Cessation:Counseling Given: No Alcohol Use Standard Drinks/Week Comments Not Currently 21 (1 standard drink = 0.6 oz pu re alcohol) [facility] Utilities Answer Date Recorded In the past 12 months has e [email or web address], [employer], or water [employer] threatened to shut off services in your [...] GED or equivalent No 07/20/2024 Preferred Language Citizen Of [place] 07/20/2024 PHQ-2 Answer Date Recorded Patient Health [...] F) 09/01/2024 2:47 PM EDT Respiratory Rate 16 07/22/2024 8:20 AM EDT Oxygen Saturation 91% 09/01/2024 2:47 PM EDT Inhaled Oxygen Concentration - - Weight 58.5 kg (129 lb) 09/01/2024 2:47 PM EDT Height 160 cm (5' 2.99 ) 09/01/2024 2:47 PM EDT Body Mass Index 22.86 09/01/2024 2:47 PM EDT Plan of Treatment Upcoming Encounters Date Type Department Care Team (Late st Contact Info) Description 12/05/2024 11:30 AM EDT Office Visit [facility] [address] [facility] [address] [place] [address] Julissa Kenney, AMY [address] [facility] [address] [place] [address] Health Maintenance Due Date Last Done Comments DXA SCAN 1958 COLOGUARD 08/09/2003 COLON CANCER SCREENING 5 YEA R SIGMOIDOSCOPY 08/09/2003 COLONOSCOPY 08/09/2003 COLORECTAL CANCER SCREENING 08/09/2003 CT COLONOGRAPHY 08/09/2003 FECAL OCCULT BLOOD TEST 08/09/2003 FIT Testing (1 year) 08/09/2003 MAMMOGRAM 06/30/2013 07/01/2011 ANNUAL WELLNESS VISIT 03/06/2017 TDAP/TD VACCINES (2 - Td or Tdap) 07/17/2019 010 ZOSTER VACCINE (2 of 2) 11/16/2023 09/21/2023 COVID-19 Vaccine (5 - 2024-2 6 season) 2024 02/03/2022, 02/01/2021, 06/06/2020, Additional history exists INFLUENZA VACCINE 11/23/2024 11/10/2022, , 02/01/2021, Additional history exists LIPID PANEL 07/20/2025 07/20/2024, 04/24, 05/22/2023, Additional history exists LUNG CANCER SCREENING Discontinued 10/20/2022, 023 Pneumococcal Vaccine 50+ Completed 023, 01/10/2019, 09/11/2015, Additional history exists HEPATITIS C SCREENING Completed 05/22/2023, 024 Medical Devices Implanted Type Area Filtration Operator Device Identifier Shelf Expiration Date Model / Serial / Lot Stent Implanted:Qty: 3 Stent Description:2 renal stents a nd 1 subclavian Stnt Carotid Xact Tpr 10 To 8x40mm - [id number] Implanted:Qty: 1 on 01/07/2023 by Pedro Dwyer MD at [facility] Stent YA VASCULAR 820 [id number] / / [id number] Procedures Procedure Name Priority Date/Time Associated Diagnosis Comments LIPID PANEL STAT 07/20/2024 9:27 AM EDT from Last 3 Months or Most Recently Relevant to Health Maintenance Results * Lipid Panel (07/20/2024 9:27 AM EDT) Total Cholesterol 112 0 - 200 mg/dL 07/20/2024 10:08 AM EDT [facility] Triglycerides 131 0 - 150 mg/dL 07/20/2024 10:08 AM EDT [facility] HDL Cholesterol 42 40 - 60 mg/dL 07/20/2024 10:08 AM EDT [facility] LDL Cholesterol 47 0 - 100 mg/dL 07/20/2024 10:08 AM EDT [facility] VLDL Cholesterol 23 5 - 40 mg/dL 07/20/2024 10:08 AM EDT [facility] LDL/HDL Ratio 1.04 07/20/2024 10:08 AM EDT [facility] Blood Venipuncture / Unknown 07/20/2024 9:27 AM EDT 07/20/2024 9:33 AM EDT Narrative [facility] - 07/20/2024 10:08 AM EDT Cholesterol Reference Ranges (U.S. Department of Health and Human Services ATP III Classifications) Desirable <200 mg/dL Borderline High 200-239 mg/dL High Risk >240 mg/dL Triglyceride Reference Ranges (U.S. Department of Health and Human Services ATP III Classifications) Normal <150 mg/dL Borderline High 150-199 mg/dL High 200-499 mg/dL Very High >500 mg/dL HDL Reference Ranges (U.S. Department of Health and Human Services ATP III Classifications) Low <40 mg/dl (major risk factor for CHD) High >60 mg/dl ('negative' risk factor for CHD) LDL Reference Ranges (U.S. Department of Health and Human Services ATP III Classifications) Optimal <100 mg/dL Near Optimal 100-129 mg/dL Borderline High 130-159 mg/dL High 160-189 mg/dL Very High >189 mg/dL LDL is calculated using the NIH LDL-C calculation. Bro Alcala APRN LAB BLOOD ORDERABLES [facility]
[address] [place] [address], from Last 3 Months or Most Recently Relevant to Health Maintenance Insurance [address] [facility] [id number] MEDICARE ADVANTAGE [facility] MEDICARE ADVANTAGE PPO Advance Directives Documents on File Type Date Recorded Patient Crayon Painter Expl anation PATIENT ADVANCE DIRECTIVES - SCAN 07/20/2024 11:09 AM HEALTH CARE SURROGAT E DESIGNATION, BHLEX, 07/20/2024 * CPR (Attempt to Resuscitate) (Latest Code Status on File) Date Activated Date Inactivated Comments 07/19/2024 10:28 PM 07/22/2024 2:19 PM Question Answer Comments Code Status (Patient has no pulse and is not breathing): CPR (Attempt to Resuscitate) Medical Interventions (Patie nt has pulse or is breathing): Full Support Level Of Support Discussed With: Patient * CPR (Attempt to Resuscitate) Date Activated Date Inactivated Comments 01/07/2023 9:46 AM 01/08/2023 1:38 PM Question Answer Comments Code Status (Patient has no pulse and is not breathing): CPR (Attempt to Resuscitate) Medical Interventions (Patie nt has pulse or is breathing): Full Support Level Of Support Discussed With: Patient Care Teams Burnt Lime Drawer Relationship Specialty Start Date End Date Yonny Scott MD [address] [facility] [address] [place] [address] PCP - General Adolescent Medicine 07/19/24
--- OUTSIDE RECORDS SUMMARY | 2024-10-29 23:20 | XMS_ITS | Encounter Summary ---
Author Organization Healthcare Address [address] [place] [address] Care Team Providers Care Sand Conditioner Machine Name Role Phone Aman Hernandez MD Primary Care Provider Encounter Details Date Type Department Care Team (Late st Contact Info) Description 11/26/2022 Orders Only External Location [address] [place] [address] Delfino [place], [place] [address] [facility] [address] [place], [place] [id number] Social History Tobacco Use Types Packs/Day Years [...] Description 11/21/2024 12:45 PM EDT Office Visit [facility] [address] [place] [phone] Navya Woody MD [address] [place] [phone] documented as of this encounter Procedures Procedure Name Priority Date/Time Associated Diagnosis Comments IR OUTSIDE IMAGES 11/26/2022 7:07 AM EDT documented in this encounter Results * IR OUTSIDE IMAGES (11/26/2022 7:07 AM EDT) Anatomical Region Laterality Modality X-Ray Angiograph y 11/26/2022 7:07 AM EDT Delfino FORBES IMG IR PROCEDURES Final Result documented in this encounter Visit Diagnoses Not on filedocumented in this encounter Additional Health Concerns Assessment Noted Time PHQ-9 Depression Total Score: 22 022 2:00 PM EDT A fall risk assessment has been complete d for the patient 07/08/2021 2:00 PM EDT documented as of this encounter Care Teams Sand Conditioner Machine Relationship Specialty Start Date End Date Aman Hernandez MD [address] [facility] [address] [place] [address] PCP - General Family Medicine 06/18/21 documented as of this encounter
--- OUTSIDE RECORDS SUMMARY | 2024-10-29 23:20 | XMS_ITS | Encounter Summary ---
Author Organization Healthcare Address [address] [place] [address] Care Team Providers Care Geometry Tutor Name Role Phone Aman Hernandez MD Primary Care Provider Encounter Details Date Type Department Care Team (Late Contact Info) Description 10/20/2022 Orders Only External Location [address] [place] [address] Nathaniel Gomez MD [address] [facility] [address] [place] [address] Social History Tobacco Use Types [...] Description 11/21/2024 12:45 PM EDT Office Visit [facility] [address] [place] [address] Navya Woody MD [address] [facility] [address] [place] [address] documented as of this encounter Procedures Procedure Name Priority Date/Time Associated Diagnosis Comments CT OUTSIDE IMAGES 10/20/2022 12:34 PM EDT documented in this encounter Results * CT OUTSIDE IMAGES (10/20/2022 12:34 PM EDT) Anatomical Region Laterality Modality Computed Tomogra phy 10/20/2022 12:3 4 PM EDT Nathaniel Gomez MD IMG CT PROCEDURES Final Result documented in this encounter Visit Diagnoses Not on filedocumented in this encounter Additional Health Concerns Assessment Noted Time PHQ-9 Depression Total Score: 22 022 2:00 PM EDT A fall risk assessment has been complete d for the patient 07/08/2021 2:00 PM EDT documented as of this encounter Care Teams Geometry Tutor Relationship Specialty Start Date End Date Aman Hernandez MD [address] [address] PCP - General Family Medicine 06/18/21 documented as of this encounter
--- OUTSIDE RECORDS SUMMARY | 2024-10-29 23:20 | XMS_ITS | Encounter Summary ---
Author Organization Healthcare Address [address] [place] [address] Care Team Providers Care Supply Manager Name Role Phone Aman Hernandez MD Primary Care Provider Encounter Details Date Type Department Care Team (Late st Contact Info) Description 11/18/2022 Orders Only External Location [address] [place] [address] Delfino [place], [place] 1210 [facility] [address] [place], [place] [id number] Social History Tobacco Use Types Packs/Day Years [...] Description 11/21/2024 12:45 PM EDT Office Visit [facility] [address] [place] [address] Navya Woody MD [address] [facility] [address] [place] [phone] documented as of this encounter Procedures Procedure Name Priority Date/Time Associated Diagnosis Comments CT ANGIO ABDOMEN 11/18/2022 1:08 PM EDT documented in this encounter Results * CT Angio Abdomen (11/18/2022 1:08 PM EDT) Anatomical Region Laterality Modality Abdomen Computed Tomogra phy 11/18/2022 1:08 PM EDT Delfino FORBES IMG CT PROCEDURES Final Result documented in this encounter Visit Diagnoses Not on filedocumented in this encounter Additional Health Concerns Assessment Noted Time PHQ-9 Depression Total Score: 22 022 2:00 PM EDT A fall risk assessment has been complete d for the patient 07/08/2021 2:00 PM EDT documented as of this encounter Care Teams Supply Manager Relationship Specialty Start Date End Date Aman Hernandez MD [address] [phone] PCP - General Family Medicine 06/18/21 documented as of this encounter
--- OUTSIDE RECORDS SUMMARY | 2024-10-29 23:20 | XMS_ITS | Encounter Summary ---
Author Organization Healthcare Address [address] [place] [address] Care Team Providers Care Apparel Merchandiser Name Role Phone Donald Driscoll MD Primary Care Provider [phone] Aman Hernandez MD Primary Care Provider Freedom Salazar Unavailable Unavailable Encounter Details Date Type Department Care Team (Late st Contact Info) Description 06/17/2021 Orders Only External Location [address] [place] [address] Aman Hernandez MD [address] [facility] [address] [place] [address] Social History Tobacco Use Types Packs/Day Years Used Date Smoking Tobacco: Every Day Cigarettes 1 40 Smokeless Tobacco: Never PHQ-2 Answer Date Recorded Patient Health Questionnaire-2 Score 0 06/17/2021 Comments Unknown Sex and Gender Information Value Date Recorded Sex Assigned at Female 06/10/2021 3:35 PM EDT Legal Sex Female 8:23 PM EDT Gender Identity Female 06/10/2021 3:35 PM EDT Sexual Orientation Not on file COVID-19 Exposure Response Date Recorded In the last 10 days, have yo u been in contact with someone who was confirmed or suspected to have Coronavirus/COVID-19? No / Unsure 06/17/2021 12:51 PM EDT documented as of this encounter Functional Status * Over the past 2 weeks, how often have you been bothered by any of the following problems? Question Answer Date of Assessment Author Little interest or pleasure in doing things Not at all 06/17/2021 12:58 PM EDT Ema Trevizo LPN Feeling down, depressed, or hopeless Not at all 06/17/2021 12:58 PM EDT Ema Trevizo LPN Patient Health Questionnaire-2 Score 0 06/17/2021 12:58 PM EDT Leena Trevizo LPN * Calculated C-SSRS Risk Score (Lifetime/Recent) Answer Date of Assessment Author No Risk Indicated 06/17/2021 12:58 PM EDT Ema Johnson LPN * Question Answer Date of Assessment Author 1. Wish to be (Past 1 Month) No 06/17/2021 12:58 PM EDT Ema Trevizo LPN 2. Non-Specific Active Suici john Thoughts (Past 1 Month) No 06/17/2021 12:58 PM EDT Heriberto Trevizo LPN 6. Suicidal Behavior (Lifetime) No 12:58 PM EDT Ema Trevizo LPN documented as of this encounter Plan of Treatment Upcoming Encounters Date Type Department Care Team (Late st Contact Info) Description 11/21/2024 12:45 PM EDT Office Visit [facility] [address] [place] [address] Navya Woody MD [address] [facility] [address] [place] [address] documented as of this encounter Procedures Procedure Name Priority Date/Time Associated Diagnosis Comments XR OUTSIDE IMAGES 06/17/2021 1:57 PM EDT documented in this encounter Results * XR OUTSIDE IMAGES (06/17/2021 1:57 PM EDT) Anatomical Region Laterality Modality Radiographic Carlene ging 06/17/2021 1:57 PM EDT Aman Hernandez MD IMG XR PROCEDURES Final Result documented in this encounter Visit Diagnoses Not on filedocumented in this encounter Additional Health Concerns Assessment Noted Time PHQ-9 Depression Total Score: 22 2 022 9:12 AM EDT A fall risk assessment has been complete d for the patient 06/17/2021 12:58 PM EDT documented as of this encounter Care Teams Apparel Merchandiser Relationship Specialty Start Date End Date Donald Driscoll MD [address] [place] [address] PCP - General 07/06/20 06/17/21 Aman Hernandez MD [address] [phone] PCP - General Family Medicine 06/18/21 Freedom Salazar [facility] [address] [place] [address] Community Health Worker Sale Professional Digital Marketing 07/08/2107/09 documented as of this encounter
--- OUTSIDE RECORDS SUMMARY | 2024-10-29 23:20 | XMS_ITS | Encounter Summary ---
Author Organization [facility] Address [address] [place] [address] Care Team Providers Care Supplier Diversity Director Name Role Phone Aman Hernandez MD Primary Care Provider Encounter Details Date Type Department Care Team (Late Contact Info) Description 10/20/2022 Orders Only External Location [address] [place] [address] Nathaniel Gomez MD 110 [facility] [address] [place] [address] Social History Tobacco Use Types [...] Description 11/21/2024 12:45 PM EDT Office Visit [facility] [address] [place] [address] Navya Woody MD [address] [facility] [address] [place] [address] documented as of this encounter Procedures Procedure Name Priority Date/Time Associated Diagnosis Comments CT ANGIO NECK 10/20/2022 12:34 PM EDT documented in this encounter Results * CT Angio Neck (10/20/2022 12:34 PM EDT) Anatomical Region Laterality Modality Carotid Artery Computed Tomogra phy 10/20/2022 12:3 4 PM [...] documented as of this encounter Care Teams Supplier Diversity Director Relationship Specialty Start Date End Date Aman Hernandez MD [address] [phone] PCP - General Family Medicine 06/18/21 documented as of this encounter
--- OUTSIDE RECORDS SUMMARY | 2024-10-29 23:20 | XMS_ITS | Encounter Summary ---
Author Organization Healthcare Address [address] [place] [place] [address] Care Team Providers Care Director Of Financial Reporting Name Role Phone Aman Hernandez MD Primary Care Provider Encounter Details Date Type Department Care Team (Late st Contact Info) Description 11/27/2022 Orders Only External Location [address] [place] [address] Provider, External Social History Tobacco Use Types Packs/Day Years [...] Description 11/21/2024 12:45 PM EDT Office Visit [facility] [address] [place] [address] Navya Woody MD [address] [place] [phone] documented as of this encounter Procedures Procedure Name Priority Date/Time Associated Diagnosis Comments CT OUTSIDE IMAGES 11/27/2022 5:20 PM EDT documented in this encounter Results * CT OUTSIDE IMAGES (11/27/2022 5:20 PM EDT) Anatomical Region Laterality Modality Computed Tomogra phy 11/27/2022 5:20 PM EDT us External Provider IMG CT PROCEDURES Final Result documented in this encounter Visit Diagnoses Not on filedocumented in this encounter Additional Health Concerns Assessment Noted Time PHQ-9 Depression Total Score: 022 2:00 PM EDT A fall risk assessment has been complete d for the patient 07/08/2021 2:00 PM EDT documented as of this encounter Care Teams Director Of Financial Reporting Relationship Specialty Start Date End Date Aman Hernandez MD [address] [address] PCP - General Family Medicine 06/18/21 documented as of this encounter
--- OUTSIDE RECORDS SUMMARY | 2024-10-29 23:20 | XMS_ITS | Encounter Summary ---
Author Organization Healthcare Address [address] [place] [address] Care Team Providers Care Stucco Worker Name Role Phone Donald Driscoll MD Primary Care Provider [phone] Aman Hernandez MD Primary Care Provider Freedom Salazar Unavailable Unavailable Encounter Details Date Type Department Care Team (Late st Contact Info) Description 06/17/2021 Orders Only External Location [address] [place] [address] Aman Hernandez MD [address] [facility] [address] [place] [address] Social History Tobacco Use Types [...] Description 11/21/2024 12:45 PM EDT Office Visit [facility] [address] [place] [address] Navya Woody MD [address] [facility] [address] [place] [address] documented as of this encounter Procedures Procedure Name Priority Date/Time Associated Diagnosis Comments XR OUTSIDE IMAGES 06/17/2021 2:02 PM EDT documented in this encounter Results * XR OUTSIDE IMAGES (06/17/2021 2:02 PM EDT) Anatomical Region Laterality Modality Radiographic Carlene ging 06/17/2021 2:02 PM EDT Aman Hernandez MD IMG XR PROCEDURES Final Result documented in this encounter Visit Diagnoses Not on filedocumented in this encounter Additional Health Concerns Assessment Noted Time PHQ-9 Depression Total Score: 22 022 9:12 AM EDT A fall risk assessment has been complete d for the patient 06/17/2021 12:58 PM EDT documented as of this encounter Care Teams Stucco Worker Relationship Specialty Start Date End Date Donald Driscoll MD [address] [place] [address] PCP - General 07/06/20 06/17/21 Aman Hernandez MD [address] [phone] PCP - General Family Medicine 06/18/21 Freedom Salazar [facility] [address] [place] [address] Community Health Worker Network Operations Manager 07/08/2107/09 documented as of this encounter
[2024-10-29 23:21] LABS: Hematocrit 39.8 % (37.0-47.0); Hemoglobin 12.6 g/dL (12.2-16.2); Immature Granulocytes % 0.4 %; Mean Corpuscular HGB Conc 31.7 g/dL (31.8-35.4); Mean Corpuscular Hemoglobin 27.3 pg (27.0-31.2); Mean Corpuscular Volume 86.3 fl (81-99); Nucleated Red Blood Cells % 0 %; Platelet Count 298 K/mm3 (142-424); Red Blood Count 4.61 M/mm3 (4.20-5.40); Red Cell Distribution Width-SD 39.5 fL; White Blood Count 16.4 K/mm3 (4.8-10.8)
[2024-10-29 23:32] LABS: Albumin Level 4.7 g/dl (3.5-5.0); Chloride 105 mmol/L (98-107)
[2024-10-29 23:33] LABS: Potassium 3.8 mmoL/L (3.5-5.1); Sodium 140 mmol/L (136-145)
[2024-10-29 23:35] LABS: Alanine Aminotransferase 14 U/L (12-78); Anion Gap 12.8 mEq/L (5-15); Aspartate Amino Transferase 28 U/L (14-36); Blood Urea Nitrogen 17 mg/dl (7-17); Carbon Dioxide 26 mmol/L (22.0-30.0); Creatinine,Serum 0.90 mg/dl (0.52-1.04); Estimated Glomerular Filt Rate 63 ml/min (>60); GFR (African American) 76 ML/MIN (>60)
[2024-10-29 23:36] LABS: Albumin/Globulin Ratio 1.4 (1.1-1.8); Alkaline Phosphatase 154 U/L (38-126); Bilirubin,Total 0.4 mg/dl (0.2-1.3); Calcium 9.8 mg/dl (8.4-10.2); Globulin 3.4 g/dL (1.3-3.2); Glucose 173 mg/dl (74-100); Total Protein,Serum 8.1 g/dl (6.3-8.2)
[2024-10-29] MEDS: SODIUM CHLORIDE 0.9% 10ML FLUSH SYRINGE 10 ML IV (23:48)
[2024-10-29] MEDS: 0.9 % SODIUM CHLORIDE 50 ML VIAL 80 ML IV (23:48)
[2024-10-29] MEDS: IOPAMIDOL-370 (76%);100ML BOTTLE 160 ML IV (23:48)
[2024-10-29 23:53] LABS: Activated Partial Thrombo Time 22.8 seconds (22.8-30.6); INR 1.03 (0.9-1.1); Prothrombin Time 11.4 seconds (10.1-12.5)
[2024-10-29 23:57] VITALS: BMI 23.9
[2024-10-30] MEDS: LIDOCAINE 1% W/EPI 1:100,000 20ML VIAL 3 ML SQ (00:13)
[2024-10-30] MEDS: MIDAZOLAM 2MG/2ML VIAL 1 MG IV (00:14)
--- NOTE | 2024-10-30 00:19 | PC.NURSE ---
[facility] called. [place] 2 would be 12 minutes plus lift. Will call back soon
--- NOTE | 2024-10-30 00:20 | PC.NURSE ---
[facility] declined due to weather. [facility] called at this time.
--- NOTE | 2024-10-30 00:25 | PC.NURSE ---
[facility] declined due to weather. Pt will go [facility]
[2024-10-30 00:49] VITALS: BP 220/122; PULSE 127; RESP 12; O2SAT 100
[2024-10-30 00:54] VITALS: BP 170/94; PULSE 113; RESP 12; O2SAT 100
[2024-10-30] MEDS: TET/DIPHTH/PERT-ADULT 0.5ML SYRINGE 0.5 ML IM (00:54)
[2024-10-30 01:03] VITALS: BP 126/62; PULSE 91; RESP 13; O2SAT 100
[2024-10-30] MEDS: FENTANYL 250MCG/5ML VIAL 50 MCG IV (01:06)
[2024-10-30] MEDS: MIDAZOLAM 2MG/2ML VIAL 2 MG IV (01:06)
--- NOTE | 2024-10-30 01:06 | PC.NURSE ---
Emergent verbal order entered for physician for 2mg of midazolam and 50 mcg fentanyl IV
[2024-10-30] MEDS: MIDAZOLAM HCL IN 0.9 % NACL/PF 50 MG/50 ML PLAST..BAG IV (01:13)
--- NOTE | 2024-10-30 01:13 | XR_ITS ---
PROCEDURE INFORMATION: Exam: XR Chest Exam date and time: 10/30/2024 1:15 AM Age: 64 years old Clinical indication: Device placement; Ett placement (vent status); Additional info: Intubated TECHNIQUE: Imaging protocol: Radiologic exam of the chest. Views: 1 view. COMPARISON: CT ANGIO CHEST 10/29/2024 11:43 PM FINDINGS: Tubes, catheters and devices: Endotracheal tube tip projects 2.7 cm above the emily. Lungs: Left retrocardiac opacities correlating with atelectasis on CT. Mild scarring and atelectasis in the lower lungs. Pleural spaces: Unremarkable. No pleural effusion. No pneumothorax. Heart/Mediastinum: Cardiomegaly. Vasculature: Left subclavian arterial stent. Bones/joints: Unremarkable. IMPRESSION: 1. Endotracheal tube tip projects 2.7 cm above the emily. 2. Left retrocardiac opacities correlating with atelectasis on CT. Please exclude superimposed aspiration and infection.
[2024-10-30] MEDS: FENTANYL CITRATE/PF 1,000 MCG in 0.9 % SODIUM CHLORIDE 80 ML 1 MCG IV (01:14)
[2024-10-30 01:27] VITALS: BP 159/91; PULSE 92; RESP 18; TEMP 37.2; O2SAT 97
[2024-10-30] MEDS: ETOMIDATE 40MG/20ML VIAL 20 MG IV (01:36)
[2024-10-30] MEDS: SUCCINYLCHOLINE 20MG/ML 10 ML MDV 70 MG IV (01:37)
--- OUTSIDE RECORDS SUMMARY | 2024-11-29 20:00 | XMS_ITS | Clinical Summary ---
Author Organization Unknown Care Team Providers Care Clipper Machine Name Role Phone REED KAUR, WILLI Unavailable Unavailable ORA COMMUNITY SERVICE WORKER, DAMARIS Unavailable Unavailable MIRIAM CLEMENTSN, SHANTANU Unavailable Unavailable OSMIN RN, RANDA Unavailable Unavailable CURTIS OT, BALJIT Unavailable Unavailable JARED PT, AMY Unavailable Unavailable BRIDGET SW, RAFAELA Unavailable Unavailable Payers Payer Name Policy Type Policy Number Effective Date Expira tion Date HUMA[employer].MA.PPO.C.AUTH [id number] Problems Condition Name Condition Details Condition Category [...] 08-03 00:00: 00 ATHSCL HEART DISEASE OF [place] CORONARY ARTERY W/O ANG PCTRS Active 08-03 [...] ABUSE, UNCOMPLICATE D Active 08-03 00:00: 00 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) USE 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 ICS/ANTIPLAT ELETS Active [...] 1 mg tablet 4-04 00:00: 00 Yes [id number] RESTLESS LEGS 1 tablet 3 TIMES DAILY 1 tablet 3 TIMES DAILY (route: oral) Med Classific ation: Central Nervous System Agents Aspirin Childrens 81 mg chewable tablet 07-12 00:00: 00 Yes [id number] HEART 1 tablet DAILY 1 tablet DAILY (route: oral) Med Classific ation: Hematolog ical Agents atorvastati n 40 mg tablet 07-12 00:00: 00 Yes [id number] CHOLESTEROL 1 tablet BEDTIME 1 tablet BEDTIME (route: oral) Med Classific ation: Cardiovas cular Therapy Agents clopidogrel 75 mg tablet 07-12 00:00: 00 Yes [id number] HEART 1 tablet DAILY 1 tablet DAILY (route: oral) Med Classific ation: Hematolog ical Agents levothyroxi ne 50 mcg tablet 07-12 00:00: 00 Yes [id number] THYROID 1 tablet DAILY 1 tablet DAILY (route: oral) Med Classific ation: Endocrine lisinopril 20 mg tablet 07-12 00:00: 00 Yes [id number] BLOOD PRESSURE 1 tablet DAILY 1 tablet DAILY (route: oral) Med Classific ation: Cardiovas cular Therapy Agents amlodipine 5 mg tablet 08-03 00:00: 00 Yes [id number] HTN 1 tablet 2 TIMES DAILY 1 tablet 2 TIMES DAILY (route: oral) Med Classific ation: Cardiovas cular Therapy Agents atorvastati n 80 mg tablet 08-03 00:00: 00 Yes [id number] HLD 1 tablet DAILY 1 tablet DAILY (route: oral) Med Classific ation: Cardiovas cular Therapy Agents lisinopril 10 mg tablet 08-03 00:00: 00 Yes [id number] HTN 1 tablet 2 TIMES DAILY 1 tablet 2 TIMES DAILY (route: oral) Med Classific ation: Cardiovas cular Therapy Agents oxybutynin chloride 5 mg tablet 08-03 00:00: 00 Yes [id number] OAB 1 tablet DAILY 1 tablet DAILY (route: oral) Med Classific ation: Genitouri nary Therapy Protonix 20 mg tablet,leeroy yed release 08-03 00:00: 00 Yes [id number] GI 1 tablet DAILY 1 tablet DAILY [...] TO EVALUATE, OBSERVE / ASSESS, AND MONITOR, AUTOMATION AND CONTROLS MANAGER TO OBSERVE AND MONITOR, PROVIDE SKILLED THERAPEUTIC INTERVENTION, ACTIVITY, EDUCATION, AND TRAINING TO ADDRESS; IMPROVEMENT OF RIGHT UPPER EXTREMITY ACTIVE RANGE OF MOTION, RIGHT UPPER EXTREMITY STRENGTH, IMPROVEMENT OF RIGHT HAND FUNCTION, DYNAMIC STANDING BALANCE FOR SELF CARE, HOME SAFETY RECOMMENDATIONS] Future Scheduled Test PERSONAL H YGIENE/GROOMING (OT/AUTOMATION AND CONTROLS MANAGER) [code = PERSONAL HYGIENE/GROOMING (OT/AUTOMATION AND CONTROLS MANAGER)] Future Scheduled Test DRESSING ( OT/AUTOMATION AND CONTROLS MANAGER) [code = DRESSING (OT/AUTOMATION AND CONTROLS MANAGER)] Future Scheduled Test ACTIVITIES OF DAILY LIVING (OT/AUTOMATION AND CONTROLS MANAGER) [code = ACTIVITIES OF DAILY LIVING (OT/AUTOMATION AND CONTROLS MANAGER)] Future Scheduled Test BATH/SHOWE R TRANSFER (OT/AUTOMATION AND CONTROLS MANAGER) [code = BATH/SHOWER TRANSFER (OT/AUTOMATION AND CONTROLS MANAGER)] Future Scheduled Test HOME ACTIV ITY / EXERCISE PROGRAM (OT/DANILE) [code = HOME ACTIVITY / EXERCISE PROGRAM (OT/DANIEL)] Future Scheduled Test POSTURAL C ONTROL/BALANCE (OT/AUTOMATION AND CONTROLS MANAGER) [code = POSTURAL CONTROL/BALANCE (OT/AUTOMATION AND CONTROLS MANAGER)] Future Scheduled Test FINE MOTOR COORDINATION (OT/AUTOMATION AND CONTROLS MANAGER) [code = FINE MOTOR COORDINATION (OT/AUTOMATION AND CONTROLS MANAGER)] Future Scheduled Test THERAPEUTI C EXERCISE (OT/DANIEL) [code = THERAPEUTIC EXERCISE (OT/DANIEL)] Future Scheduled Test OT / AUTOMATION AND CONTROLS MANAGER T O IDENTIFY FALL RISK FACTORS; EDUCATE [...] G ET STRONGER, BE MORE INDEPENDENT Goal Patient Goal - G ET STRONGER, BE [...] AND HOME SAFETY BY END OF EPISODE. Encounters Start Date/Time End Date/Time Encounter Type Admission Type Attending Clinicians Care Facility Care Department Encounter ID Discharge Date Discharge Status Discharge Condition Discharge Reason Percent Goals Met 2024-10-02 00:00:00 2024-11-30 00:00:00 Outpatient RECERTIFIC ATION [facility] [id number] [id number]
== END 2024-10-30 01:37 | disposition short-term general hospital (02) ==
PROVIDERS: Emergency Provider Emergency Medicine; PCP Internal Medicine Adolescent Medicine
DX: I61.5 Nontraumatic intracerebral hemorrhage, intraventricular (principal); H05.239 Hemorrhage of unspecified orbit; W19.XXXA Unspecified fall, initial encounter; I10 Essential (primary) hypertension; E78.5 Hyperlipidemia, unspecified
CPT/HCPCS: 70450; 70486; 70496; 70498; 71045; 71275; 72125; 72128; 72131; 74174; 80053; 85025; 85610; 85730; 90471; 90715; 96374; 96375; 96376; 99285; 99291; J0330; J2004; J2250; J2251; J3010; Q9967

== ENCOUNTER 2024-12-14 00:23 | Emergency (ER) | payer MEDICARE, SELFPAY ==
--- OUTSIDE RECORDS SUMMARY | 2024-07-25 07:45 | XMS_ITS ---
Author Organization [facility] Address [address] [facility] [address] [facility] [address] [place] [address] Care Team Providers Care Plant Buyer Name Role Phone Yonny Scott Primary Care Provider Reanna Perdomo [phone] REASON FOR VISIT 2 wk FU Encounters Encounter Location Date Provider Diagnosis [facility] [address] [facility] [address] [place], [place] [address] 07/25/2024 Yonny Scott Plan Of Treatment No Information Progress Notes * [place] JORDAN RaeDOB:[birth year] (64 yo F)Acc No.[id number]:07/25/2024 Progress Notes Patient: [place] CHISHOLM Provider: Day Scott MD :1960 A ge:63 Y S ex:Female Date:07/25/2024 [address]1944 [address] [id number] Subjective: * Chief Complaints: * 1 . 2 wk FU. * Medical History: Objective: * Vitals: Assessment: Plan: * Treatment: * * Electronic signature of William Scott MD FAAP on 12/14/2024 at 01:05 AM EDT Sign off status: Pending * Provider: Day Scott MD Date: 0 07/25/2024 Generated for Printi ng/Faxing/eTransmitting on: 1 01:05 AM EDT
--- OUTSIDE RECORDS SUMMARY | 2024-10-18 11:00 | XMS_ITS ---
Author Organization [facility] Address [address] [facility] [address] [facility] [address] [place] [address] Care Team Providers Care Application Security Architect Name Role Phone Yonyn Scott Primary Care Provider [phone] Reanna Perdomo Unavailable [phone] Allergies Allergen (clinical drug ingredient) Drug/Non Drug Allergy documented on EMR Reaction Allergy Type Onset Date Status Information temporarily unavailable Penicillin Unknown Drug Allergy Active REASON FOR [...] 10/18/2024 Encounters Encounter Location Date Provider Diagnosis [address] [address] 10/18/2024 Yonny Scott Essential hypertensi on I10 [...] Next Appt Details Follow Up: prn, Reason: Progress Notes * [place] JORDAN RaeDOB:[birth year] (64 yo F)Acc No.[id number]:10/18/2024 Progress Notes Patient: [place] CHISHOLM Provider: Day Scott MD :1960 A ge:64 Y S ex:Female Date:10/18/2024 Address:[address] [place] [address], [id number] Subjective: * Chief Complaints: * 1 . [...] MD Date: 0 10/18/2024 Generated for Mik olmos/Karen/Gina on: 01:03 AM EDT History and Physical Notes * HPI (History of Present Illness) Category Sub-Category Detail Notes Category Not es gen [place] presents today for her blood pressure. [...]
--- OUTSIDE RECORDS SUMMARY | 2024-10-29 20:00 | XMS_ITS | Clinical Summary ---
Author Organization Unknown Care Team Providers Care Grain Elevator Clerk Name Role Phone REED KAUR, WILLI Unavailable Unavailable JARED PT, AMY Unavailable Unavailable CURTIS OT, BALJIT Unavailable Unavailable BRIDGET SW, RAFAELA Unavailable Unavailable ORA MANAGER TRANSITION, DAMARIS Unavailable Unavailable MIRIAM CLEMENTSN, SHANTANU Unavailable Unavailable OSMIN RN, RANDA Unavailable Unavailable Payers Payer Name Policy Type Policy Number Effective Date Expira tion Date HUMANA.MA.PPO.C.AUTH [id number] Problems Condition Name Condition Details Condition Category Status Onset Date Resolution Date Last Treatment Date Treating Clinician Comments 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 08-03 00:00: 00 APHASIA FOLLOWING CEREBRAL INFARCTION Active 08-03 00:00: 00 DYSPHAGIA FOLLOWING CEREBRAL INFARCTION Active 08-03 00:00: 00 OTHER SYMPTOMS AND SIGNS W COGN FNCTNS FOL CEREBRAL INFRC Active 08-03 00:00: 00 DYSARTHRIA FOLLOWING CEREBRAL INFARCTION Active 08-03 00:00: 00 OTHER SEQUELAE OF CEREBRAL INFARCTION Active 08-03 00:00: 00 UNSPECIFIED VISUAL LOSS Active 08-03 00:00: 00 UNSPECIFIED SEVERE PROTEIN-WERNER ИВАН MALNUTRITION Active 08-03 00:00: 00 HYPERTENSIVE CHRONIC KIDNEY DISEASE W STG 1-4/UNSP CHR KDNY Active 08-03 00:00: 00 CHRONIC KIDNEY DISEASE, STAGE 3 UNSPECIFIED Active 08-03 00:00: 00 CHRONIC OBSTRUCTIVE PULMONARY DISEASE, UNSPECIFIED Active 08-03 00:00: 00 ATHSCL HEART DISEASE OF [place] CORONARY ARTERY W/O ANG PCTRS Active 08-03 00:00: 00 OCCLUSION AND STENOSIS OF BILATERAL CAROTID ARTERIES Active 08-03 00:00: 00 OTHER CARDIOMYOPAT HIES Active 08-03 00:00: 00 ATHEROSCLERO SIS OF RENAL ARTERY Active 08-03 00:00: 00 OTHER SPECIFIED ANXIETY DISORDERS Active 08-03 00:00: 00 PRIMARY GENERALIZED (OSTEO)ARTHR ITIS Active 08-03 00:00: 00 FIBROMYALGIA Active 08-03 00:00: 00 HYPOTHYROIDI SM, UNSPECIFIED Active 08-03 00:00: 00 ALCOHOL ABUSE, UNCOMPLICATE D Active 08-03 00:00: 00 CORRECTION (CURRENT) USE 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 ICS/ANTIPLAT ELETS Active 08-03 00:00: 00 PERSONAL HISTORY OF URINARY (TRACT) INFECTIONS Active 08-03 00:00: 00 Allergies, Adverse Reactions, Alerts Allergy Name Allergy Type Status Severity Reaction(s) Onset Date Inactive Date Treating Clinician Comments CEPHALEXIN Propensity to adverse reactions Active 08-03 09:49: 04 PENICILLIN- Propensity to adverse reactions Active 08-03 09:49: 14 Medications Ordered Medication Name Filled Medication Name Start Date Stop Date Current Medication? Ordering Clinician Indication Dosage Frequency Signature (SIG) Comments Components pramipexole 1 mg tablet 4-04 00:00: 00 Yes [id number] RESTLESS LEGS 1 tablet 3 TIMES DAILY 1 tablet 3 TIMES DAILY (route: oral) Med Classific ation: Central Nervous System Agents Aspirin Childrens 81 mg chewable tablet 07-12 00:00: 00 Yes [id number] HEART 1 tablet DAILY 1 tablet DAILY (route: oral) Med Classific ation: Hematolog ical Agents atorvastati n 40 mg tablet 07-12 00:00: 00 Yes [id number] CHOLESTEROL 1 tablet BEDTIME 1 tablet BEDTIME (route: oral) Med Classific ation: Cardiovas cular Therapy Agents clopidogrel 75 mg tablet 07-12 00:00: 00 Yes [id number] HEART 1 tablet DAILY 1 tablet DAILY (route: oral) Med Classific ation: Hematolog ical Agents levothyroxi ne 50 mcg tablet 07-12 00:00: 00 Yes [id number] THYROID 1 tablet DAILY 1 tablet DAILY (route: oral) Med Classific ation: Endocrine lisinopril 20 mg tablet 07-12 00:00: 00 Yes [id number] BLOOD PRESSURE 1 tablet DAILY 1 tablet DAILY (route: oral) Med Classific ation: Cardiovas cular Therapy Agents amlodipine 5 mg tablet 08-03 00:00: 00 Yes [id number] HTN 1 tablet 2 TIMES DAILY 1 tablet 2 TIMES DAILY (route: oral) Med Classific ation: Cardiovas cular Therapy Agents atorvastati n 80 mg tablet 08-03 00:00: 00 Yes [id number] HLD 1 tablet DAILY 1 tablet DAILY (route: oral) Med Classific ation: Cardiovas cular Therapy Agents lisinopril 10 mg tablet 08-03 00:00: 00 Yes [id number] HTN 1 tablet 2 TIMES DAILY 1 tablet 2 TIMES DAILY (route: oral) Med Classific ation: Cardiovas cular Therapy Agents oxybutynin chloride 5 mg tablet 08-03 00:00: 00 Yes [id number] OAB 1 tablet DAILY 1 tablet DAILY (route: oral) Med Classific ation: Genitouri nary Therapy Protonix 20 mg tablet,leeroy yed release 08-03 00:00: 00 Yes [id number] GI 1 tablet DAILY 1 tablet DAILY (route: oral) Med Classific ation: Gastroint estinal Therapy Agents Vital Signs Vital Name Observation Time Observation Value Commen ts Temperature 2024-10-28 14:29:00.000 97.8 [degF] Temperature 2024-10-19 16:45:00.000 98 [degF] Temperature 2024-10-12 16:13:00.000 97.8 [degF] Pulse 2024-10-28 14:29:00.000 77 /min Pulse 2024-10-19 16:45:00.000 75 /min Pulse 2024-10-12 16:13:00.000 85 /min O2 Saturation (%) 2024-10-28 14:29:00.000 95 % O2 Saturation (%) 2024-10-19 16:45:00.000 95 % O2 Saturation (%) 2024-10-12 16:13:00.000 96 % Respirations 2024-10-28 14:29:00.000 18 /min Respirations 2024-10-19 16:45:00.000 17 /min Respirations 2024-10-12 16:13:00.000 18 /min Systolic Blood Pressure 2024-10-28 14:29:00.000 130 mm [Hg] Systolic Blood Pressure 2024-10-19 16:45:00.000 151 mm [Hg] Systolic Blood Pressure 2024-10-12 16:13:00.000 116 mm [Hg] Diastolic Blood Pressure 2024-10-28 14:29:00.000 62 mm [Hg] Diastolic Blood Pressure 2024-10-19 16:45:00.000 67 mm [Hg] Diastolic Blood Pressure 2024-10-12 16:13:00.000 62 mm [Hg] Plan of Treatment Planned Activity Planned Date Details Comments Future Scheduled Test AGENCY MAY PERFORM A RESUMPTION OF CARE VISIT FOLLOWING ANY HOSPITAL ADMISSION. OT TO EVALUATE, OBSERVE / ASSESS, AND MONITOR, CONTRACT POST OFFICE CLERK TO OBSERVE AND MONITOR, PROVIDE SKILLED THERAPEUTIC INTERVENTION, ACTIVITY, EDUCATION, AND TRAINING TO ADDRESS; IMPROVEMENT OF RIGHT UPPER EXTREMITY ACTIVE RANGE OF MOTION, RIGHT UPPER EXTREMITY STRENGTH, IMPROVEMENT OF RIGHT HAND FUNCTION, DYNAMIC STANDING BALANCE FOR SELF CARE, HOME SAFETY RECOMMENDATIONS [code = AGENCY MAY PERFORM A RESUMPTION OF CARE VISIT FOLLOWING ANY HOSPITAL ADMISSION. OT TO EVALUATE, OBSERVE / ASSESS, AND MONITOR, DANIEL TO OBSERVE AND MONITOR, PROVIDE SKILLED THERAPEUTIC INTERVENTION, ACTIVITY, EDUCATION, AND TRAINING TO ADDRESS; IMPROVEMENT OF RIGHT UPPER EXTREMITY ACTIVE RANGE OF MOTION, RIGHT UPPER EXTREMITY STRENGTH, IMPROVEMENT OF RIGHT HAND FUNCTION, DYNAMIC STANDING BALANCE FOR SELF CARE, HOME SAFETY RECOMMENDATIONS] Future Scheduled Test PERSONAL H YGIENE/GROOMING (OT/DANIEL) [code = PERSONAL HYGIENE/GROOMING (OT/CONTRACT POST OFFICE CLERK)] Future Scheduled Test DRESSING ( OT/DANIEL) [code = DRESSING (OT/CONTRACT POST OFFICE CLERK)] Future Scheduled Test ACTIVITIES OF DAILY LIVING (OT/DANIEL) [code = ACTIVITIES OF DAILY LIVING (OT/CONTRACT POST OFFICE CLERK)] Future Scheduled Test BATH/SHOWE R TRANSFER (OT/CONTRACT POST OFFICE CLERK) [code = BATH/SHOWER TRANSFER (OT/CONTRACT POST OFFICE CLERK)] Future Scheduled Test HOME ACTIV ITY / EXERCISE PROGRAM (OT/DANIEL) [code = HOME ACTIVITY / EXERCISE PROGRAM (OT/DANIEL)] Future Scheduled Test POSTURAL C ONTROL/BALANCE (OT/DANIEL) [code = POSTURAL CONTROL/BALANCE (OT/DANIEL)] Future Scheduled Test FINE MOTOR COORDINATION (OT/DANIEL) [code = FINE MOTOR COORDINATION (OT/DANIEL)] Future Scheduled Test THERAPEUTI C EXERCISE (OT/DANIEL) [code = THERAPEUTIC EXERCISE (OT/CONTRACT POST OFFICE CLERK)] Future Scheduled Test OT / DANIEL T O IDENTIFY FALL RISK FACTORS; EDUCATE THE PATIENT/CAREGIVER ON WAYS TO REDUCE FALL RISK FACTORS AND ESTABLISH HOME EXERCISE PROGRAM TO MINIMIZE FALL RISK. MAY TEACH THE PATIENT FLOOR RECOVERY WHEN CLINICALLY APPROPRIATE. [code = OT / DANIEL TO IDENTIFY FALL RISK FACTORS; EDUCATE THE PATIENT/CAREGIVER ON WAYS TO REDUCE FALL RISK FACTORS AND ESTABLISH HOME EXERCISE PROGRAM TO MINIMIZE FALL RISK. MAY TEACH THE PATIENT FLOOR RECOVERY WHEN CLINICALLY APPROPRIATE.] Goal 2024-09-29 Patient Goal - G ET STRONGER, BE MORE INDEPENDENT Goal 2024-10-30 Patient Goal - G ET STRONGER, BE MORE INDEPENDENT Goal Provider Goal - Goal Provider Goal - OT STG: PATIENT WILL DEMONSTRATE IMPROVED ABILITY TO SAFELY PERFORM PERSONAL HYGIENE AND GROOMING FROM MINIMAL ASSISTANCE TO STAND BY ASSISTANCE WITHIN 5 WEEKS OT LTG: PATIENT WILL DEMONSTRATE IMPROVED ABILITY TO PERFORM PERSONAL HYGIENE FROM MINIMAL ASSISTANCE TO SUPERVISION ASSISTANCE WITHIN 9 WEEKS Goal Provider Goal - OT STG: PATIENT WILL DEMONSTRATE IMPROVED ABILITY TO BUTTON, ZIP SNAP UPPER BODY ARTICLES OF A CLOTHING TO REDUCE CAREGIVER BURDEN OF CARE FROM MINIMAL ASSISTANCE TO STAND BY ASSISTANCE WITHIN 5 WEEKS OT LTG: PATIENT WILL DEMONSTRATE IMPROVED ABILITY TO PERFORM UPPER BODY DRESSING TO REDUCE CAREGIVER BURDEN FROM MINIMAL ASSISTANCE TO INDEPENDENCE WITHIN 9 WEEKS Goal Provider Goal - OT LTG: PATIENT WILL DEMONSTRATE IMPROVEMENT IN MODIFIED BRICE INDEX SCORE FROM 84 TO 96 INDICATING DECREASED DEPENDENCY ON CAREGIVER ASSISTANCE WITH ACTIVITIES OF DAILY LIVING WITHIN 9 WEEKS Goal Provider Goal - OT LTG: PATIENT WILL DEMONSTRATE IMPROVED ABILITY AND SAFETY TO PERFORM SHOWER TRANSFER FROM MINIMAL ASSISTANCE TO SUPERVISION ASSISTANCE WITHIN 6 WEEKS Goal Provider Goal - OT STG: PATIENT WILL DEMONSTRATE THE ABILITY TO PERFORM HER RIGHT UPPER EXTREMITY RANGE OF MOTION HOME EXERCISE PROGRAM FROM MAXIMAL ASSISTANCE TO INDEPENDENT STATUS WITHIN 6 WEEKS OT STG: PATIENT WILL DEMONSTRATE THE ABILITY TO PERFORM HER RIGHT UPPER EXTREMITY STRENGTHENING HOME EXERCISE PROGRAM FOR MAXIMAL ASSISTANCE TO INDEPENDENT STATUS WITHIN 6 WEEKS OT STG: PATIENT WILL DEMONSTRATE THE ABILITY TO PERFORM HER RIGHT HAND COORDINATION AND FINE MOTOR HOME EXERCISE PROGRAM FROM MAXIMAL ASSISTANCE TO INDEPENDENT STATUS WITHIN 6 WEEKS OT STG: PATIENT WILL DEMONSTRATE THE ABILITY TO PERFORM HER RIGHT UPPER EXTREMITY SENSORY HOME EXERCISE PROGRAM FROM MAXIMAL ASSISTANCE TO INDEPENDENT STATUS WITHIN 6 WEEKS Goal Provider Goal - OT STG: PATIENT WILL DEMONSTRATE IMPROVED POSTURAL CONTROL AND DECREASE FALL RISK EVIDENCE BY AN IMPROVEMENT IN FUNCTIONAL REACH SCORE FROM 8 IN TO 10 INCHES IN ORDER TO PERFORM HER SELF-CARE WITH DECREASED CAREGIVER BURDEN OF CARE WITHIN 6 WEEKS OT LTG: PATIENT WILL DEMONSTRATE IMPROVED POSTURAL CONTROL AND DECREASED FALL RISK EVIDENCED BY AN IMPROVEMENT IN FUNCTIONAL REACH SCORE FROM 8 IN TO 12 IN IN ORDER TO PERFORM HER SELF-CARE WITH DECREASED CAREGIVER BURDEN OF CARE WITHIN 9 WEEKS Goal Provider Goal - OT LTG: FINE MOTOR COORDINATION WILL IMPROVE EVIDENCED BY UTENSILS BUTTONS/ZIPPERS IMPROVING FROM MINIMAL ASSISTANCE TO INDEPENDENT WITHIN 6 WEEKS Goal Provider Goal - OT STG: PATIENT WILL INCREASE RIGHT UPPER EXTREMITY STRENGTH FROM 3/5 TO 3+/5 IN ORDER TO IMPROVE FUNCTIONAL TRANSFERS AND SELF CARE PERFORMANCE IN 6 WEEKS OT LTG: PATIENT WILL INCREASE RUE STRENGTH FRO. 3/5 TO 4/5 IN ORDER TO IMPROVE FUNCTIONAL TRANSFERS AND SELF CARE PERFORMANCE IN 9 WEEKS OT LTG: PATIENT WILL DEMONSTRATE IMPROVED ROM IN RUE SHLDR FROM 15O DEGREES TO 170 DEGREES FLEXION AND ABDUCTION AROM FOR IMPROVED OVERHEAD GROOMING AND HYGIENE WITHIN 6 WEEKS Goal Provider Goal - OT LTG: PATIENT/CAREGIVER WILL BE ABLE TO IMPLEMENT RECOMMENDATIONS SPECIFIC TO FALL REDUCTION FOR IMPROVED ADL/IADL COMPLETION AND HOME SAFETY BY END OF EPISODE. Reason for Visit MODERATE ASSIST WITH TRANSFER/AMBULATION/ADLS Encounters Start Date/Time End Date/Time Encounter Type Admission Type Attending [facility] Care [facility] Care Department Encounter ID Discharge Date Discharge Status Discharge Condition Discharge Reason Percent Goals Met 2024-10-02 00:00:00 2024-10-30 00:00:00 Outpatient RECERTIFIC ATION RANDA SOLORIO [facility] [id number] 2024-10-30 00:00:00 DISCHARGED /TRANSFERR ED TO A [facility] FOR [facility]PAT[facility] CARE MODERATE ASSIST WITH TRANSFER/A MBULATION/ ADLS HH - DISCHARGE TO ACUTE CARE FACILITY 0.00
--- OUTSIDE RECORDS SUMMARY | 2024-10-29 20:00 | XMS_ITS | Clinical Summary ---
Author Organization Unknown Care Team Providers Care Instructor Wastewater Treatment [employer] Name Role Phone REED KAUR, WILLI Unavailable Unavailable JARED PT, AMY Unavailable Unavailable CURTIS OT, BALJIT Unavailable Unavailable BRIDGET SW, RAFAELA Unavailable Unavailable ORA COMMUNICATIONS MANAGER, DAMARIS Unavailable Unavailable MIRIAM CLEMENTSN, SHANTANU Unavailable Unavailable OSMIN RN, RANDA Unavailable Unavailable Payers Payer Name Policy Type Policy Number Effective Date Expira tion Date HUMANA.MA.PPO.C.AUTH [id number] Problems Condition Name Condition Details Condition Category [...] 08-03 00:00: 00 ATHSCL HEART DISEASE OF [place] CORONARY ARTERY W/O ANG PCTRS Active 08-03 [...] ABUSE, UNCOMPLICATE D Active 08-03 00:00: 00 LONGTERM (CURRENT) USE 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 ICS/ANTIPLAT ELETS Active [...] 1 mg tablet 4-04 00:00: 00 Yes [id number] RESTLESS LEGS 1 tablet 3 TIMES DAILY 1 tablet 3 TIMES DAILY (route: oral) Med Classific ation: Central Nervous System Agents Aspirin Childrens 81 mg chewable tablet 07-12 00:00: 00 Yes [id number] HEART 1 tablet DAILY 1 tablet DAILY (route: oral) Med Classific ation: Hematolog ical Agents atorvastati n 40 mg tablet 07-12 00:00: 00 Yes [id number] CHOLESTEROL 1 tablet BEDTIME 1 tablet BEDTIME (route: oral) Med Classific ation: Cardiovas cular Therapy Agents clopidogrel 75 mg tablet 07-12 00:00: 00 Yes [id number] HEART 1 tablet DAILY 1 tablet DAILY (route: oral) Med Classific ation: Hematolog ical Agents levothyroxi ne 50 mcg tablet 07-12 00:00: 00 Yes [id number] THYROID 1 tablet DAILY 1 tablet DAILY (route: oral) Med Classific ation: Endocrine lisinopril 20 mg tablet 07-12 00:00: 00 Yes [id number] BLOOD PRESSURE 1 tablet DAILY 1 tablet DAILY (route: oral) Med Classific ation: Cardiovas cular Therapy Agents amlodipine 5 mg tablet 08-03 00:00: 00 Yes [id number] HTN 1 tablet 2 TIMES DAILY 1 tablet 2 TIMES DAILY (route: oral) Med Classific ation: Cardiovas cular Therapy Agents atorvastati n 80 mg tablet 08-03 00:00: 00 Yes [id number] HLD 1 tablet DAILY 1 tablet DAILY (route: oral) Med Classific ation: Cardiovas cular Therapy Agents lisinopril 10 mg tablet 08-03 00:00: 00 Yes [id number] HTN 1 tablet 2 TIMES DAILY 1 tablet 2 TIMES DAILY (route: oral) Med Classific ation: Cardiovas cular Therapy Agents oxybutynin chloride 5 mg tablet 08-03 00:00: 00 Yes [id number] OAB 1 tablet DAILY 1 tablet DAILY (route: oral) Med Classific ation: Genitouri nary Therapy Protonix 20 mg tablet,leeroy yed release 08-03 00:00: 00 Yes [id number] GI 1 tablet DAILY 1 tablet DAILY [...] TO EVALUATE, OBSERVE / ASSESS, AND MONITOR, SUPERVISOR METALIZING TO OBSERVE AND MONITOR, PROVIDE SKILLED THERAPEUTIC [...] H YGIENE/GROOMING (OT/DANIEL) [code = PERSONAL HYGIENE/GROOMING (OT/SUPERVISOR METALIZING)] Future Scheduled Test DRESSING ( OT/DANIEL) [code = DRESSING (OT/SUPERVISOR METALIZING)] Future Scheduled Test ACTIVITIES OF DAILY LIVING (OT/DANIEL) [code = ACTIVITIES OF DAILY LIVING (OT/SUPERVISOR METALIZING)] Future Scheduled Test BATH/SHOWE R TRANSFER (OT/SUPERVISOR METALIZING) [code = BATH/SHOWER TRANSFER (OT/SUPERVISOR METALIZING)] Future Scheduled Test HOME ACTIV ITY / EXERCISE PROGRAM (OT/DANIEL) [code = HOME ACTIVITY / EXERCISE PROGRAM (OT/DANIEL)] Future Scheduled Test POSTURAL C ONTROL/BALANCE (OT/DANIEL) [code = POSTURAL CONTROL/BALANCE (OT/DANIEL)] Future Scheduled Test FINE MOTOR COORDINATION (OT/DANIEL) [code = FINE MOTOR COORDINATION (OT/DANIEL)] Future Scheduled Test THERAPEUTI C EXERCISE (OT/DANIEL) [code = THERAPEUTIC EXERCISE (OT/SUPERVISOR METALIZING)] Future Scheduled Test OT / DANIEL T [...] Encounter Type Admission Type Attending [facility] Care [facility] Care Department Encounter ID Discharge Date Discharge Status Discharge Condition Discharge Reason Percent Goals Met 2024-10-02 00:00:00 2024-10-30 00:00:00 Outpatient RECERTIFIC ATION RANDA SOLORIO [facility] [id number] 2024-10-30 00:00:00 DISCHARGED /TRANSFERR ED TO A [facility] FOR INPATIENT CARE MODERATE ASSIST WITH TRANSFER/A MBULATION/ ADLS HH - DISCHARGE TO ACUTE CARE FACILITY 0.00
--- OUTSIDE RECORDS SUMMARY | 2024-10-30 02:57 | XMS_ITS | Encounter Summary ---
Author Organization Healthcare Address [address] [place] [address] Care Team Providers Care Instrument Technician Apprentice Name Role Phone Aman Hernandez MD Primary Care Provider Reason for Referral * Consultation (Routine) - Closed Specialty Diagnoses / Procedures Referred By Contac t Referred To Contact Otolaryngology Diagnoses Fall, initial encounter Closed fracture of zygomatic arch, unspecified laterality, initial encounter Charles Velasco APRN [address] [facility] [address] [place] [address] Phone: tel: fax: [place] [facility] [address], [address] [place] [address] Phone: tel: fax: Referral ID Status Reason Start Date Expiration Date V isits Requested Visits Authorized [id number] Closed Specialty Services Required 11/12/2024 05/14/2026 1 1 * Consultation (Routine) - Closed Specialty Diagnoses / Procedures Referred By Contac t Referred To Contact Neurosurgery Diagnoses Fall, initial encounter Traumatic brain injury, with unknown loss of consciousness status, initial encounter Charles Velasco APRN [id number] [place] [address] Phone: tel: fax: [place] [facility] [address], [address] [place] [address] Phone: tel: fax: Referral ID Status Reason Start Date Expiration Date V isits Requested Visits Authorized [id number] Closed Specialty Services Required 11/12/2024 05/14/2026 1 1 Scheduling Instructions tSAH, IVH Reason for Visit * Reason Comments Trauma Alert * Auth/Cert (Routine) Specialty Diagnoses / Procedures Referred By Contac t Referred To Contact Diagnoses Intraventricular hemorrhage (CMS/HCC) Fall, Retrobulbar hematoma, brain bleed Katharine Savage MD [address] [address] Phone: tel: fax: [facility] [address] [place] [address] Phone: tel: Referral ID Status Reason Start Date Expiration Date Visits Re quested Visits Authorized [id number] 1 1 Encounter Details Date Type Department Care Team (Latest Contact Info) Description 10/30/2024 2:57 AM EDT - 11/12/2024 4:07 PM EDT Hospital Encounter [facility] [address] [place] [address] Iker Reagan MD [address] [place] [address] Katharine Savage MD [address] [address] Isabelle Soto MD [address] [address] Micheal Espinoza MD [id number] [place] [address] Marilia Sagastume MD [id number] [place] [address] Dionne Jacobs MD [id number] [place] [address] Fall, initial encounter (Primary Dx); Intraventricular hemorrhage ([facility]/HCC); Electrolyte abnormality; ABLA (acute blood loss anemia); Closed fracture of right zygomatic arch, initial encounter (CMS/HCC); Hyperlipidemia, unspecified hyperlipidemia type; Traumatic brain injury, with unknown loss of consciousness status, initial encounter ([facility]); Acute respiratory failure with hypoxia; Hypertension, unspecified type; Injury of globe of eye, right, initial encounter; Debility; Closed fracture of zygomatic arch, unspecified laterality, initial encounter ([facility]/HCC); Retrobulbar hematoma; Brain bleed ([facility]) Discharge Disposition: Rehab Facility Social History Tobacco [...] any time in the past 12 m [facility], were you homeless or living in a long term (including now)? Patient unable to answer 10/31/2024 [facility] Utilities Answer Date Recorded In the [...] will call with appointment date and time. [address] [place] [address], Third Floor, [place] [address] # [phone] Ophtho: Follow up 11/21 @ 12:25. [address], [address] [place] [address] #[phone] Neurosurgery: Clinic will contact with appointment date and time, [address] [place] [address] First Floor, Wing C, [address], [place] [address], SGT: [facility] Thursday Clinic as needed ; [address] [place] [address] First Floor, Wing [address] [address], #[phone]. Questions or Concerns and Appointments If there are questions or concerns after discharge from the hospital, please call [phone] and ask for Blue Surgery Nurse. Working hours are Thursday - Thursday 8:00 AM to 4:00 PM. After hours, weekends and holidays please call [phone] and ask for the resident hearing care practitioner for Blue Surgery. For appointments please call [phone]. Medication requests should be made between the hours of 9:00 AM to 3:00 PM Thursday thru Thursday. Please note that based upon recent changes to [place] law related to prescribing opioid pain medications, [...] Take 1 tablet by mouth daily. 09/26/2024 HYDROcodone-acetami nophen (Rufe) 5-325 MG tablet Take 1 tablet by mouth every 6 hours as needed. 05/24/2024 hydrOXYzine pamoate (Vistaril) 25 MG capsule Take 1 capsule by mouth every 8 hours as needed for itching. 15 capsule 11/12/2024 levothyroxine (Synthroid, Levoxyl) 75 MCG tablet Take 1 tablet by mouth daily. 04/14/2023 lisinopril 20 MG tablet Take 1 tablet by mouth daily. 10/18/2024 mirtazapine (Remeron) 15 MG tablet Take 1 [...] tablet Take 1.5 tablets by mouth nightly. acetaminophen (Tylenol) 500 MG tablet Take 1 tablet by mouth 4 times a day for 7 days. 28 tablet 11/12/2024 12/02/19 25 butalbital-acetamin ophen-caffeine 50-325-40 MG tablet Take 1 tablet by mouth every 6 hours as needed for headaches for up to 3 days. 12 tablet 11/12/2024 11/16/19 25 megestrol (Megace) 40 MG/ML suspension Take 10 mL by mouth daily for 7 days. Shake well just before you measure a dose. Measure with a special dose-measuring spoon or medicine cup, not with a regular table spoon. If you do not have a dose-measuring device, ask your pharmacist for one. 70 mL 11/12/2024 12/02/19 25 ondansetron ODT (Zofran-ODT) 4 MG disintegrating [...] for 5 days. 20 tablet 11/12/2024 11/18/19 25 tamsulosin (Flomax) 0.4 MG 24 hr capsule Take 1 capsule by mouth 1 time each day with dinner. 30 capsule 11/12/2024 12/14/19 25 documented as of this encounter Miscellaneous Notes * Adele London RN - 11/12/2024 1:53 PM EDT Images from the original note were not included. [id number] Oxycodone IMPORTANT WARNING: Oxycodone may be habit-forming. [...] Health Services Administration (SAMHSA) National Helpline at 7-996-065-KNFS. Oxycodone may cause serious or life-threatening breathing [...] doctor or pharmacist will give you the creative services producer's patient information sheet (Medication Guide) when you begin your treatment with oxycodone and each time you fill your prescription. Read theinformation carefully and ask your doctor or pharmacist if you have any questions. You can also visit the Food and Drug Administration (FDA) website (https://www.fda.gov/Drugs/DrugSafety/gto770741.htm) or the creative services producer's website to obtain the Medication Guide. WHY [...] or herbal products may interact with oxycodone: Aromas's wort andtryptophan. Be sure to let your [...] and out of their sight and reach. https://www.BeneStreamndGamgee.org What should I do in case of [...] pharmacist for the instructions or visit the creative services producer's website to get the instructions. If symptoms [...] narrowing or widening of the pupils (dark lone pine in the eye) ? cold, clammy skin [...] of all of the prescription and nonprescription (hmtq-qed-qelabkk) medicines, vitamins, minerals, and dietary supplements you [...] or pharmacist about specific clinical use. The [place] [employer] represents that the information provided hereunder was formulated with a reasonable standard of care, and in conformity with professional standards in the field. The [place] [employer]. makes no representations or warranties, express or implied, including, but not limited to, any implied warranty of merchantability and/or fitness for a particular purpose, with respect to such information and specifically disclaims all such warranties. Users are advised that decisions regarding drug therapy are complex medical decisions requiring the independent, informed decision of an appropriate health administrator health care facility, and the information is provided for informational purposes only. The entire monograph for a drug should be reviewed for a thorough understanding of the drug's actions, uses and side effects. The [place] [employer] does not endorse or recommend the use of any drug.The information is not a substitute for medical care. AHFS?? Patient Medication Information?. ?? Copyright, 2023. The [place] [employer]-System Pharmacists??, [address], [address], [place], [place]. All Rights Reserved. Duplication for commercial use must be authorized by [facility]. Selected Revisions: March 09, 2024. AHFS?? Patient Medication Information?. ?? Copyright, 2024 * [facility] - Adele Carmona RN - 11/12/2024 1:53 [...] of Drug Diversion Investigators (NADDI): http://rxdrugdropbox.org/ ? [place] Office of Drug Control Policy: http://odcp.dc.gov/Prescription+Drug+Drop+Box+Sites.htm Are there concerns about or ? ? [...] that tracks prescriptions of controlled substances in [place]. The BASIA report tells your doctor if you have been prescribed controlled substances in the past. Doctors must get a BASIA report before prescribing controlled substances. What can I do if the information in my BASIA report is wrong? You or your doctor may contact the dispenser who reported the information to [employer]. If the dispenser agrees that the information should be changed, he or she can fix the BASIA report. However, the dispenser may certify that the report is correct. If that is the case, you or your doctor may then call the [place] Drug Enforcement and Professional Practices Branch at .This will start an investigation of the error. * [facility] - Adele Carmona RN - 11/12/2024 1:53 PM EDT Images from the original note were not included. [address] Preventing a Surgical Site Infection A risk [...] of infection. ? Controlled body temperature. A sbism-twtm-kxlflu temperature during or after surgery prevents oxygen [...] and water or with an alcohol-based hand videotape sales representative before and after caring for you. Don?t [...] away. Last Reviewed Date: 2024 00:00:00 ?? 9714-5022 [employer]. All rights reserved. This information is not intended as a substitute for professional medical care. Always follow your healthcare professional's instructions. * [facility] - Adele Carmona, LUANNE - 11/12/2024 1:51 [...] from the original note were not included. [id number] Fall Prevention Falls often take place due [...] medical history, your current prescriptions and your frsd-dic-cabmqqf medicines. As a general rule, the National [place] on Aging (NCA) recommends taking one-third of [...] often. Last Reviewed Date: 2024 00:00:00 ?? 2503-5191 [employer]. All rights reserved. This information is not [...] cavities clean. Home care ? Use Your [place]! The more moist your nose is, the [...] have some congestion. You may take an vxck-dru-ulgifnq decongestant, like Sudafed. Do not take any [...] call and ask for the ENT resident hearing care practitioner. * [facility] - Adele Carmona RN - 11/12/2024 1:51 [...] refer you to a concussion specialist at [facility]. When should I call 911? Some head [...] might refer you to a specialist at [facility]. ? For symptoms that last longer than [...] PCP name and Address: Aman Hernandez MD [address] [facility] [address] / [facility] [address] Referring provider name and address: Alfonso Anderson MD [address] [place] [address] Chief Concern, Brief History of Present Illness, [...] the bedside, plan to transport her to [facility] by car on this day at 1630. Family and patient are agreeable to the plan. No further questions or concerns per patient major donor coordinator. Physical therapy and occupational therapy evaluated the patient during hospitalization and recommend Subacute Rehab. At the time of discharge the patient was hemodynamically stable, tolerating PO, voiding spontaneously, normal bowel function, mobilizing appropriately, with their pain controlled with PO medication. At this time, the patient has obtained the maximum benefit from the present hospital stay, and so will be discharged to [facility]. DVT prophylaxis: Hold AC/AP for 2 weeks [...] will call with appointment date and time. [address] [place] [address], Third Floor, [place] [address] # [phone] Ophtho: Follow up 11/21 @ 12:25. [address], [address] [place] [address] #[phone] Neurosurgery: Clinic will contact with appointment date and time, [address] [place] [address] [facility], [address], [place] [address], SGT: [facility] Clinic as needed ; [address] [place] [address] First Floor, Wing [address] [address], #[phone]. Questions or Concerns and Appointments If there are questions or concerns after discharge from the hospital, please call [phone] and ask for Blue Surgery Nurse. Working hours are Thursday - Thursday 8:00 AM to 4:00 PM. After hours, weekends and holidays please call [phone] and ask for the resident hearing care practitioner for Blue Surgery. For appointments please call [phone]. Medication requests should be made between the hours of 9:00 AM to 3:00 PM Thursday thru Thursday. Please note that based upon recent changes to [place] law related to prescribing opioid pain medications, [...] tablet by mouth 2 times a day. nrkipjklku-clgwdsscldlca-lfxvslzp 50-325-40 MG tablet Take 1 tablet by [...] Your Medications These medications were sent to [facility] - [facility] [address], [facility] [address] acetaminophen 500 MG tablet bacitracin (425g jar) 500 UNIT/GM ointment Baclofen 5 MG tablet luwygseejo-thsbmulxxgloc-uyqvbtyp 50-325-40 MG tablet erythromycin 5 MG/GM ophthalmic [...] 25.0-29.9) Debility Fracture of right orbital floor ([facility]/HCC) Malnutrition ([facility]/HCC) Overview Signed 11/06/2024 11:22 AM by Jenny Miller APRN DHT w/TF Oral supplementation MRSA (methicillin resistant staph aureus) culture positive Overview Addendum 11/06/2024 11:26 AM by Jenny Miller APRN Eye wound culture: MRSA Doxycycline Urinary retention Outpatient Follow-Up Future Appointments Date Time Provider Department Center 11/21/2024 12:45 PM Navya Woody MD [facility] Pertinent Physical Exam At Time of Discharge [...] and Function Flowsheets (Taken 11/11/2024 08 by Adnreea Dean, RN) Self-Care Promotion: independence encouraged Goal: [...] Note [place] Mata 64 y.o. female CSN: [id number] Admission: 10/30/2024 2:57 AM Primary Problem: Fall Anticipated Discharge Date: 11/12/24 Has Discharge Plans Changed? No Medicare Second Notice: Housing Circumstances: Not Applicable Housing Circumstances Action Taken: Other na Medically Ready for Discharge: Ready Now Additional Comments Pt anticipated to discharge today at 4pm with family transport To: [facility] Report: [phone] Discharge Summary fax: [phone] / [phone] Escribe new meds/controls to: [facility]. SW will remain available through discharge if needs arise. Reanna Hyatt NURSE SITTER, CUSHION INSTALLER Assistant Grocery Store Manager * Care Plan - Jazmin Burton RN [...] Prevent Infection Flowsheets (Taken 11/11/2024 0800 by Andreea Dean RN) Infection Prevention: hand hygiene promoted [...] Ramez Villegas MD General Surgery, PGY-1 Pager: [phone] 12:07 AM 11/12/2024 * Nursing Note - [...] 11/11/2024 2:40 PM EDTAssociated Problem(s): Carotid stenosis ASSISTANT BASKETBALL COACH and MCA stenosis Resume home meds as [...] debility after stroke earlier this year: recommend Tzwhbsycmz50hj BID Improved spasticity, however meds causing nausea; [...] No further questions or concerns per patient major donor coordinator. Edited by: Yuli Gerardo PA at 11/11/2024 [...] SGT ICU [x] Tertiary 10/31 Transfer to [facility] 11/04 TBI (traumatic brain injury) (CMS/HCC) Present on Admission: Yes SAH, IVH NSGY consult DDAVP given at OSH PMR following Carotid stenosis Present on Admission: Yes ASSISTANT BASKETBALL COACH and MCA stenosis Resume home meds as [...] debility after stroke earlier this year: recommend Ylkntzgvde25pd BID Improved spasticity, however meds causing nausea; [...] States that they are discharging tomorrow to [facility] subacute rehab. She reports pt slept more [...] Center 11/21/2024 12:45 PM Navya Woody MD [facility] Mobility Orders Mobility Protocol: Ortho/Trauma/Spine Mobility Guidelines [...] PM&R will continue to follow. Please page [phone] with any questions, or resident on-call if [...] 0.4 mg, Oral, Daily with dinner [3] rtqerhxigu-bukyygdgtcrjw-otkdilgn, 1 tablet, Oral, q6h PRN hydrOXYzine pamoate, [...] Note [place] Mata 64 y.o. female CSN: [id number] Admission: 10/30/2024 2:57 AM Primary Problem: Fall Anticipated Discharge Date: 11/14 Per primary provider, pt is medically ready. Pt was able to eat and does not need a DHT. [facility] can still accept and will start insurance auth today. Pt's family can transport. Family is aware and agreeable to discharge plan. Update: Insurance approved and bed will be available on 11/12 at 4:30 PM. RN to notify family at bedside. [facility] Hyrqen-[phone] Eaj-[phone] [facility] Rani Dodson RN * Care Plan - [...] 4:36 PM EDT Associated Problem(s): Carotid stenosis ASSISTANT BASKETBALL COACH and MCA stenosis Resume home meds as [...] EDT Associated Problem(s): CVA (cerebral vascular accident) ([facility]) PMH CVA and R sided deficits Resume [...] debility after stroke earlier this year: recommend Xlkyrjonnu11ig BID Improved spasticity, however meds causing nausea; [...] 11/10/2024 4:33 PM EDT 11/10/24 [place] Mata [facility] Alban[place] Mata is a 64 y/o [...] Edited by: Arnoldo Savage PA at 11/10/2024 6937 Relevant review of systems was obtained as [...] SGT ICU [x] Tertiary 10/31 Transfer to [facility] 11/04 TBI (traumatic brain injury) (CMS/HCC) Present on Admission: Yes SAH, IVH NSGY consult DDAVP given at OSH PMR following Carotid stenosis Present on Admission: Yes ASSISTANT BASKETBALL COACH and MCA stenosis Resume home meds as [...] debility after stroke earlier this year: recommend Ylbitheasj00io BID Improved spasticity, however meds causing nausea; [...] up in chair Taken 11/10/2024 0800 by Katie Childers Head [...] Flowsheets Taken 11/10/2024 0027 by Pietro Valdovinos, botany laboratory assistant Review/Management: medications reviewed Taken 11/01/20241999 by Javi [...] Note [place] Mata 64 y.o. female CSN: [id number] Admission: 10/30/2024 2:57 AM Primary Problem: Fall Anticipated Discharge Date: 11/15 Pt removed DHT and is agreeable to eating more if family brings food from home. Provider wants to continue to monitor oral intake. Pt may need DHT replaced if unable to take in enough calories. [facility] in case pt needs [facility]HT replaced. [...] name and and knew she was in [place]. Pt did not know the place, current [...] Mobility Bed Mobility Exam: Scooting/Bridging Level of Alpha: Dependent Physical/Nonphysical Assist: Verbal Cues, Nonverbal cues (demo/gestures), Additional assist utilized for safety, Moderate cues Bed Mobility Exam: Supine to Sit Level of Alpha: Maximum assist (25% patient's effort) Physical/Nonphysical Assist: Verbal Cues, Nonverbal cues (demo/gestures), Additional assist utilized for safety, HOB elevated, Moderate cues Assistive Device: Bed rails Transfers Transfer Exam: Sit to stand Level of Alpha: Maximum assist (25% patient's effort) Physical/Nonphysical Assist: Verbal Cues, Nonverbal cues (demo/gestures), Additional assist utilized for safety, Moderate cues Assistive Device: Hand held assist Transfer Exam: Stand to Sit Level of Alpha: Maximum assist (25% patient's effort) Physical/Nonphysical Assist: Verbal Cues, Nonverbal cues (demo/gestures), Additional assist utilized for safety, Moderate cues Assistive Device: Hand held assist Transfer Exam: Bed to Chair/Chair to Bed Level of Alpha: Maximum assist (25% patient's effort) Physical/Nonphysical Assist: [...] A x 2 forsit to stand with CLIENT COORDINATOR and was able to stand for 10 sec before needing to sit back down. Pt stood again with Max A x 2 CLIENT COORDINATOR and was able take a side step or to the chair with Max cues and weight shifting. Pt sat unsupported in the chair for 8 min with SBA to increase core strength for functional tasks. Pt completed sit to stand with Max A x 2 with CLIENT COORDINATOR and required cues for posture. Pt was [...] care tasks and functional transfers to reduce career services assistant burden. OT Recommendations Discharge Destination: Subacute rehab [...] Family/Caregiver: Other (Specify) (Niece entered during session.) Hydrographic Surveyor: Not Applicable Presentation Oxygen Therapy: None (Room [...] Mobility Bed Mobility Exam: Scooting/Bridging Level of Alpha: Dependent Physical/Nonphysical Assist: Verbal Cues, Nonverbal cues (demo/gestures), Additional assist utilized for safety Bed Mobility Exam: Supine to Sit Level of Alpha: Maximum assist (25% patient's effort) Physical/Nonphysical Assist: [...] Transfer Exam: Sit to stand Level of Alpha: Maximum assist (25% patient's effort) Physical/Nonphysical Assist: Verbal Cues, Nonverbal cues (demo/gestures), Additional assist utilized for safety Assistive Device: Hand held assist Transfer Exam: Stand to Sit Level of Alpha: Maximum assist (25% patient's effort) Physical/Nonphysical Assist: Verbal Cues, Nonverbal cues (demo/gestures), Additional assist utilized for safety Assistive Device: Hand held assist Transfer Exam: Bed to Chair/Chair to Bed Level of Alpha: Maximum assist (25% patient's effort) Physical/Nonphysical Assist: [...] debility after stroke earlier this year: recommend Rhapmnhgho43kj BID Improved spasticity, however meds causing nausea; [...] 5:57 PM EDT Associated Problem(s): Carotid stenosis 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 BASKETBALL COACH and MCA stenosis Resume home meds as [...] RA * Assessment & Plan Note - Aronldo Savage PA - 11/09/2024 5:57 PM EDT [...] EDT Associated Problem(s): CVA (cerebral vascular accident) ([facility]) PMH CVA and R sided deficits Resume [...] Edited by: Arnoldo Savage PA at 11/09/2024 1752 Relevant review of systems was obtained as [...] SGT ICU [x] Tertiary 10/31 Transfer to [facility] 11/04 TBI (traumatic brain injury) (CMS/HCC) Present on Admission: Yes SAH, IVH NSGY consult DDAVP given at OSH PMR following Carotid stenosis Present on Admission: Yes ASSISTANT BASKETBALL COACH and MCA stenosis Resume home meds as [...] debility after stroke earlier this year: recommend Siasxrxrgy02sg BID Improved spasticity, however meds causing nausea; [...] 11/09/2024 1600 by Katie Childers Body Position: [place] chair Taken 11/09/2024 0426 by Jennifer Ayala Skin Protection: incontinence pads utilized 11/09/2024 1650 by Junior Naila Raines Flowsheets Taken 11/09/2024 1600 by Katie Childesr Body Position: Wolf chair Taken 11/09/2024 0426 [...] Raines Flowsheets Taken 11/08/20241999 by Sindi Porter botany laboratory assistant Review/Management: medications reviewed Taken 11/01/20241999 by Frank, [...] Outcome: Ongoing, Progressing 11/09/2024 1650 by Junior Niala Raines Outcome: Ongoing, Progressing 11/09/2024 1639 by [...] Center 11/21/2024 12:45 PM Navya Woody MD [facility] Mobility Orders Mobility Protocol: Ortho/Trauma/Spine Mobility Guidelines [...] PM&R will continue to follow. Please page [phone] with any questions, or resident on-call if [...] 0.4 mg, Oral, Daily with dinner [3] trhqvqfsro-phhhkkgxylwnp-qpktghnx, 1 tablet, Oral, q6h PRN hydrOXYzine pamoate, [...] saw and evaluated the patient with the medical/BUSINESS SOLUTION ANALYST/PA student. I discussed the case with the medical/BUSINESS SOLUTION ANALYST/PA student and agree with the findings and [...] or Manage Pain Flowsheets (Taken 11/07/20241999 by Sindi Porter, RN) Sensory Stimulation Regulation: care clustered [...] 3:07 PM EDT Associated Problem(s): Carotid stenosis ASSISTANT BASKETBALL COACH and MCA stenosis Resume home meds as [...] debility after stroke earlier this year: recommend [id number] BID Improved spasticity, however meds causing nausea; [...] - 11/08/2024 3:07 PM EDT Associated Problem(s): MRSA (methicillin resistant [...] CM reports that next available bed at [facility] is on Thursday depending on DHT and TF. If unable to go to [facility], patient and family are acceptable in going [...] Intake/Output Summary (Last 24 hours) at 11/08/2024 2863 Last data filed at 11/07/20241999 Gross per [...] SGT ICU [x] Tertiary 10/31 Transfer to [facility] 11/04 TBI (traumatic brain injury) (CMS/HCC) Present on Admission: Yes SAH, IVH NSGY consult DDAVP given at OSH PMR following Carotid stenosis Present on Admission: Yes ASSISTANT BASKETBALL COACH and MCA stenosis Resume home meds as [...] debility after stroke earlier this year: recommend Mrsoctvlqy14rf BID Improved spasticity, however meds causing nausea; [...] Note [place] Mata 64 y.o. female CSN: [id number] Admission: 10/30/2024 2:57 AM Primary Problem: Fall Anticipated Discharge Date: TBD DHT remains in place. Pt has not had adequate oral intake since cyclic feeds have been DC. Pt states she has N/V. [facility] will not have a bed available until Friday 11/10. [facility] have a bed when pt is medically ready. Rani Dodson RN * Consults - Jennifer Slater RD - 11/08/2024 9:46 AM EDT Adult Nutrition Evaluation Note [place] Mata 64 y.o. female CSN: [id number] Room/Bed 116/116A Nutrition evaluation type: follow-up Reason for evaluation: Hospital course: 64 y.o female admitted after fall. OSH found cerebral artery hemmorhage, ad tripodfx of rt eye. Zygomatic arch rx. Plan to extubate. OR 11/01 for ORIF zygomaticomaxillary complex fracture. BELT KNIFE FEEDER recs Easy to chew with thin liquids. [...] (Room air) O2 Delivery Method: Nasal cannula Benja Coma Scale Score: 14 Denis Scale Score: 15 Pietro/Cubbin Pressure Risk Score: 37 Most Recent BM Date: 11/07/24 GI Symptoms: Nausea Edema: Facial Allergies: NKFA Medications: Current Scheduled Medications[3]Current Continuous Medications[4]Current PRN Medications[5] Labs: Reviewed. Anthropometrics: Height: 160 cm (5' 2.99 ) Weight: 62.1 kg (136 lb 14.5 oz) BMI (Calculated): 24.26 Weight Evaluation: Overweight (BMI 25-29.9) [place] Body Weight (kg): 52.3 Percent [place] Body Weight: 129 Adjusted Body Weight (kg): [...] Easy to Chew diet - Continue Boost [facility] TID - Will send snacks TID. [...] labs, and elytes Acuity Level: 2 Jennifer Salter, RD, LD [1] Past Medical History: Diagnosis Date Depression Fibromyalgia Hx of degenerative disc disease Hyperlipidemia Hypertension Neuropathy Stroke (CMS/HCC) [2] Past Surgical History: Procedure Laterality Date CAROTID STENT LUNG SURGERY ORAL SURGERY RENAL ARTERY STENT REPLACEMENT TOTAL HIP LATERAL POSITION TONSILLECTOMY [3] acetaminophen, 1,000 mg, Oral, q6h BACILIO amLODIPine, [...] from the original note were not included. [facility] Department of Otolaryngology-Head and Neck Surgery Otolaryngology-HNS [...] Edited by: Reanna Suggs MD at 11/08/2024 0693 Intake/Output Summary (Last 24 hours) at 11/08/2024 [...] List * (Principal) Fall Zygomatic arch fracture ([facility]/HCC) Overview Addendum 11/06/2024 11:20 AM by Jenny [...] Miller APRN Eye wound culture: MRSA Doxycycline Present on Admission: Zygomatic arch fracture ([facility]/HCC) Injury of globe of eye, right, initial encounter Fall TBI (traumatic brain injury) ([facility]) Carotid stenosis ABLA (acute blood loss anemia) Hyperglycemia Acute respiratory failure with hypoxia Lactic acidosis Electrolyte abnormality MELISSA (acute kidney injury) ([facility]) Hypothyroidism Hypertension Hyperlipidemia CVA (cerebral vascular accident) ([facility]) Overweight (BMI 25.0-29.9) Debility Fracture of right orbital floor ([facility]) Plan: [place] Mata is a 64 y.o. [...] Edited by: Reanna Suggs MD at 11/08/2024 8963 Dispo: ENT will now sign-off Reanna Suggs MD General ENT Adult Inpatient Coverage and New Consults Pediatric ENT Inpatient Coverage and New Consults Head and Neck Cancer/Oncology Inpatient Coverage *If the above links do not work, please either go to the On-Call Finder in [employer] for appropriate coverage Cosigned by Yobani Benoit [...] Prevention: activity supervised assistive device/personal items within [facility] fall prevention program maintained clutter-free environment [...] Prevention: activity supervised assistive device/personal items within [facility] fall prevention program maintained clutter-free environment [...] 3:03 PM EDT Associated Problem(s): Carotid stenosis ASSISTANT BASKETBALL COACH and MCA stenosis Resume home meds as appropriate in 2 weeks dt tSAH and IVH * Assessment & Plan Note - Comfort Bills APRN, DNP - 11/07/2024 3:03 PM EDT Associated Problem(s): CVA (cerebral vascular accident) ([facility]) PMH CVA and R sided deficits Resume home meds as appropriate in 2 weeks due to tSAH and IVH * Assessment & Plan Note - Comfort Bills APRN, DNP - 11/07/2024 3:03 PM EDT Associated Problem(s): Debility PT/OT following Recommend ERIKA Possible PM&R consult for 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: recommend Pthwlsdeha14rz BID Improved spasticity, however meds causing nausea; [...] - 11/07/2024 2:45 PM EDT 11/07/24 [place] IHNDS [place] Mata is a 64 y/o Female [...] Interval: Patient is resting in bed with sisterJessica in the room. Easily awaken. Able to [...] patient or nursing. Edited by: Comfort Bills, MARKETING FORECASTER, DNP at 11/07/2024 1502 Relevant review of [...] Plan: Assessment & Plan Zygomatic arch fracture ([facility]) 11/01: OR with ENT for ORIF right [...] [x] Tertiary 10/31 TBI (traumatic brain injury) ([facility]) SAH, IVH NSGY consult DDAVP given at OSH PMR consult for Thursday Carotid stenosis ASSISTANT BASKETBALL COACH and MCA stenosis Resume home meds as [...] recheck as necessary MELISSA (acute kidney injury) ([facility]) Avoid nephrotoxic agents as able and renally dose medications IVF resuscitation as needed Hypothyroidism Resume home meds as appropriate Hypertension Resume home meds as appropriate Hyperlipidemia Resume home meds as appropriate CVA (cerebral vascular accident) ([facility]) PMH CVA and R sided deficits Resume home meds as appropriate in 2 weeks due to tSAH and IVH Overweight (BMI 25.0-29.9) Could complicate hospitalization and mobility Debility PT/OT following Recommend ERIKA Possible PM&R consult for 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: recommend [id number] BID Improved spasticity, however meds causing nausea; [...] -Delirium precautions -PT/OT Discharge Dispo: Subacute Rehab ([facility]) Edited by: Comfort Bills APRN, DNP at [...] Mobility Bed Mobility Exam: Scooting/Bridging Level of Alpha: Dependent (scoot to HOB in supine and scoot back on bed in sitting) Physical/Nonphysical Assist: Verbal Cues, Maximal cues, Additional assist utilized for safety Bed Mobility Exam: Supine to Sit Level of Alpha: Maximum assist (25% patient's effort) Physical/Nonphysical Assist: Verbal Cues, Nonverbal cues (demo/gestures), Additional assist utilized for safety, HOB elevated, Maximal cues Bed Mobility Exam: Sit to Supine Level of Alpha: Maximum assist (25% patient's effort) Physical/Nonphysical Assist: Verbal Cues, Additional assist utilized for safety, Maximal cues, Nonverbal cues (demo/gestures) Transfers Transfer Exam: Sit to stand Level of Alpha: Maximum assist (25% patient's effort) Physical/Nonphysical Assist: Verbal Cues, Nonverbal cues (demo/gestures), Additional assist utilized for safety Assistive Device: Hand held assist Transfer Exam: Stand to Sit Level of Alpha: Maximum assist (25% patient's effort) Physical/Nonphysical Assist: [...] 11/21/2024 12:45 PM Navya Woody MD [facility] Mobility Orders Mobility Protocol: Ortho/Trauma/Spine Mobility [...] We will continue to follow. Please page [phone] with any questions, or resident on-call if [...] saw and evaluated the patient with the medical/BUSINESS SOLUTION ANALYST/PA student. I discussed the case with the medical/BUSINESS SOLUTION ANALYST/PA student and agree with the findings and [...] Note [place]ia Mata 64 y.o. female CSN: [id number] Admission: 10/30/2024 2:57 AM Primary Problem: Fall Anticipated Discharge Date: 11/10/24 Cyclic feeds DC but DHT remains in place. Pt was previously accepted by [facility] but the bed wasgiven away since pt was not medically ready. [place] with [facility] will let CM know [...] 11:27 AM EDT Associated Problem(s): Carotid stenosis Production Graphic Designer and mca stenosis Resume home meds as [...] EDT Associated Problem(s): CVA (cerebral vascular accident) ([facility]) PMH CVA and R sided deficits Resume [...] debility after stroke earlier this year: recommend [id number] BID * Progress Notes - Jenny Miller [...] Thursday Carotid stenosis Present on Admission: Yes Production Graphic Designer and mca stenosis Resume home meds as [...] debility after stroke earlier this year: recommend [id number] BID Fracture of right orbital floor (CMS/HCC) [...] -Delirium precautions - PT/OT Discharge dispo: ERIKA ([facility]) Edited by: Jenny Miller APRN at 11/06/2024 [...] Edited by: Vidal Ivey MD at 11/05/2024 1144 Vidal Ivey MD [1] acetaminophen, 1,000 mg, [...] 10:42 AM EDT Associated Problem(s): Carotid stenosis Production Graphic Designer and mca stenosis Resume home meds as [...] EDT Associated Problem(s): CVA (cerebral vascular accident) ([facility]/HCC) PMH CVA and R sided deficits Resume [...] debility after stroke earlier this year: recommend [id number] BID * Progress Notes - Jenny Miller [...] Thursday Carotid stenosis Present on Admission: Yes Production Graphic Designer and mca stenosis Resume home meds as [...] debility after stroke earlier this year: recommend Lyxjbqqnwo24zo BID Fracture of right orbital floor (CMS/HCC) Present on Admission: Unknown 11/01: OR with ENT for right orbital floor fracture repair ENT following Plan: -MMPC - Augmentin and erythromycin for her eye purulence; ophtho following -DHT w/TF; d/c once tolerating 50% meals -Pulm Hygiene -Bowel reg -Sinus precautions -Delirium precautions - PT/OT Discharge dispo: ERIKA ([facility]) Edited by: Jenny Miller APRN at 11/05/2024 1041 Jenny Miller APRN * Care Plan - Jelly Clay RN - 11/05/2024 10:18 AM EDT Problem: Adult Inpatient Plan of Care Goal: Plan of Care Review 11/05/2024 1019 by Jelly Clay RN Outcome: Ongoing, Progressing Flowsheets (Taken 11/03/2024 0346 by Phoenix Crump) Progress: improving Plan of Care Reviewed With: patient sibling 11/05/2024 1018 by Jelly Clay RN Outcome: Ongoing, Progressing Goal: Patient-Specific Goal [...] lighting adjusted Taken 11/05/2024 0600 by Elizabeth Spencer RN Activity Management: activity [...] and Function Flowsheets (Taken 11/01/20241999 by Javi Frank RN) Self-Care Promotion: independence encouraged Goal: [...] sheet Goal: Compensation for Sensory Deficit 11/05/2024 1019 by Jelly Clay RN Outcome: [...] Absence of Infection Signs and Symptoms 11/05/2024 1019 by Jelly Clay RN Outcome: Ongoing, Progressing 11/05/2024 101 by Jelly Clay RN Outcome: Ongoing, Progressing Intervention: Prevent or Manage Infection Flowsheets (Taken 11/05/2024 0737) Isolation Precautions: protective precautions maintained Problem: Pain Acute Goal: Optimal Pain Control and Function 11/05/2024 1019 by Jelly Clay RN [...] Goal: Feeding Tolerance 11/05/2024 1019 by Jelly Clay RN Outcome: Ongoing, Progressing 11/05/2024 1018 by Clay, Jelly N, RN Outcome: Ongoing, [...] emotional support provided * Hospital Course - Cahrles Velasco APRN - 11/04/2024 5:03 PM EDT [...] the bedside, plan to transport her to [facility] by car on this day at 1630. Family and patient are agreeable to the plan. No further questions or concerns per patient major donor coordinator. Physical therapy and occupational therapy evaluated the patient during hospitalization and recommend Subacute Rehab. At the time of discharge the patient was hemodynamically stable, tolerating PO, voiding spontaneously, normal bowel function, mobilizing appropriately, with their pain controlled with PO medication. At this time, the patient has obtained the maximum benefit from the present hospital stay, and so will be discharged to [facility]. DVT prophylaxis: Hold AC/AP for 2 weeks [...] with appointment date and time. Viv Orozco [facility], Third Floor, [place] [address] # [phone] Ophtho: Follow up 11/21 @ 12:25. [facility], [address] [place] [address] #[phone] Neurosurgery: Clinic will contact with appointment date and time, Viv Orozco, [facility], [facility], [address], [place] [address], SGT: [facility] Thursday Clinic as needed ; [address] [facility] First Floor, Wing [address] [place] [address], #[phone]. Questions or Concerns and Appointments If there are questions or concerns after discharge from the hospital, please call [phone] and ask for Blue Surgery Nurse. Working hours are Thursday - Thursday 8:00 AM to 4:00 PM. After hours, weekends and holidays please call [phone] and ask for the resident hearing care practitioner for Blue Surgery. For appointments please call [phone]. Medication requests should be made between the hours of 9:00 AM to 3:00 PM Thursday thru Thursday. Please note that based upon recent changes to [place] law related to prescribing opioid pain medications, [...] Date Noted Fracture of right orbital floor ([facility]) 11/03/2024 Debility 11/02/2024 Overweight (BMI 25.0-29.9) 10/31/2024 Zygomatic arch fracture ([facility]) 10/30/2024 Injury of globe of eye, right, initial encounter 10/30/2024 Fall 10/30/2024 TBI (traumatic brain injury) ([facility]) 10/30/2024 Carotid stenosis 10/30/2024 ABLA (acute blood loss anemia) 10/30/2024 Hyperglycemia 10/30/2024 Acute respiratory failure with hypoxia 10/30/2024 Lactic acidosis 10/30/2024 Electrolyte abnormality 10/30/2024 MELISSA (acute kidney injury) ([facility]) 10/30/2024 Hypothyroidism 10/30/2024 Hypertension 10/30/2024 Hyperlipidemia 10/30/2024 CVA (cerebral vascular accident) ([facility]) 10/30/2024 Antibiotics: amoxicillin-clavulanate Indication and duration: - [...] exam X 15% Respiratory rate 22 13% [place] coma scale 14 4% Hematocrit abnormal (25.5 [...] Risk Flowsheets Taken 11/04/2024 1500 by Jelly Clay, RN Oral Care: mouth suctioned mouth swabbed Taken 11/04/2024 1300 by Junior Naila Raines Head of Bed (HOB) Positioning: HOB at 30-45 degrees Goal: Feeding Tolerance Outcome: Ongoing, Progressing * Progress Notes - Jeane Cowan - 11/04/2024 1:00 PM EDT Case Management Adult Progress Note [place] Mata 64 y.o. female CSN: [id number] Admission: 10/30/2024 2:57 AM Primary Problem: Fall Anticipated Discharge Date: TBD Pt has been accepted to rehab at [facility]. Pt/family agreeable. Per liaison, pt will need to be stable off IV pain meds for 24/hrs prior to beginning pre- cert. Will also need feeding tube removed.Will reevaluate on Thursday for readiness. Jeane Cowan MSW, CUSHION INSTALLER Trauma/General Surgery ICU * Consults - Back, Nahed Richardson RD - 11/04/2024 10:20 AM EDT Adult Nutrition Evaluation Note [place] Mata 64 y.o. female CSN: [id number] Room/Bed 239/239A Nutrition evaluation type: follow-up Reason for evaluation: Hospital course: 64 y.o female admitted after fall. OSH found cerebral artery hemmorhage, ad tripodfx of rt eye. Zygomatic arch rx. Plan to extubate. OR 11/01 for ORIF zygomaticomaxillary complex fracture. BELT KNIFE FEEDER recs Easy to chew with thin liquids. [...] Method: Nasal cannula Benja Coma Scale Score: 13 Denis Scale Score: [...] (Calculated): 26.41 Weight Evaluation: Overweight (BMI 25-29.9) [place] Body Weight (kg): 52.3 Percent [place] Body Weight: 129 Adjusted Body Weight (kg): [...] Easy to Chew diet - Continue Boost [facility] TID - TF Recs: Cyclic 50% [...] Edited by: Vidal Ivey MD at 11/05/2024 1142 Vidal Ivey MD [1] acetaminophen, 1,000 mg, [...] 7:05 AM EDT Associated Problem(s): Carotid stenosis Production Graphic Designer and mca stenosis Resume home meds as [...] ICU * Assessment & Plan Note - iMcheal Espinoza MD - 11/04/2024 7:05 AM EDT [...] EDT Associated Problem(s): CVA (cerebral vascular accident) ([facility]) PMH CVA and R sided deficits Resume [...] debility after stroke earlier this year: recommend [id number] BID * Assessment & Plan Note - [...] (mL) 11/02/24 07 - 11/02/24 1859 11/02/24 1900 - 11/03/24 0659 11/03/24 0700 - 11/03/24 [...] OSH Carotid stenosis Present on Admission: Yes Production Graphic Designer and mca stenosis Resume home meds as [...] debility after stroke earlier this year: recommend Zegycbacle02yu BID Fracture of right orbital floor (CMS/HCC) [...] Edited by: Keri Patel MD at 11/04/2024 1231 Keri Patel MD Critical Care Performed by: [...] Aggressive pulmonary toilet. On goal tube feeds. BELT KNIFE FEEDER evaluated and cleared for diet but PO [...] and Optimize Oral Intake Flowsheets (Taken 10/31/2024 181 by Danitza Méndez, RN) Oral Nutrition Promotion: [...] 6:35 PM EDT Associated Problem(s): Carotid stenosis Production Graphic Designer and mca stenosis Resume home meds as [...] EDT Associated Problem(s): CVA (cerebral vascular accident) ([facility]) PMH CVA and R sided deficits Resume [...] debility after stroke earlier this year: recommend Vlqunbrmil64km BID * Assessment & Plan Note - Micheal Espinoza MD - 11/03/2024 6:35 PM EDT Associated Problem(s): Fracture of right orbital floor 11/01: OR with ENT for right orbital floor fracture repair * Progress Notes - Reanna Suggs MD - 11/03/2024 2:47 PM EDT Images from the original note were not included. [facility] Department of Otolaryngology-Head and Neck Surgery Otolaryngology-HNS [...] affect Edited by: Reanna Suggs MD at 11/03/2024 1447 Intake/Output Summary (Last 24 hours) at 11/03/2024 1447 Last data filed at 11/03/2024 1400 Gross per 24 hour Intake 1220 ml Output 3900 ml Net -2680 ml Lines/Drains/Tubes: Patient Lines/Drains/Airways Status Active Airway None Output by Drain (mL) 11/01/24 07 - 11/01/24185811/01/24 190 - 11/02/24 0659 11/02/24 07 - 11/02/24 18511/02/24 1900 - 11/03/24 0659 11/03/24 07 - 11/03/24 1447 Requested LDAs do not [...] acidosis Electrolyte abnormality MELISSA (acute kidney injury) ([facility]) Hypothyroidism Hypertension Hyperlipidemia CVA (cerebral vascular accident) ([facility]) Overweight (BMI 25.0-29.9) Debility Plan: [place] Mata [...] Edited by: Reanna Suggs MD at 11/03/2024 9477 Dispo: ENT will continue to follow Reanna Suggs MD General ENT Adult Inpatient Coverage and New Consults Pediatric ENT Inpatient Coverage and New Consults Head and Neck Cancer/Oncology Inpatient Coverage *If the above links do not work, please either go to the On-Call Finder in [employer] for appropriate coverage Cosigned by Yobani Benoit MD at 11/03/2024 4:02 PM EDT * Clinician Note - Claudia Guerrero PT - 11/03/2024 2:38 PM EDT Physical Therapy Attempt Patient Name: [place] Mata Today's Date: 11/03/2024 Patient was attempted to be seen by physical therapy 11/03/2024 for PT Treatment however bedside care in progress (BELT KNIFE FEEDER). Physical therapy team will follow-up as schedule [...] 190 - 11/03/24 0659 11/03/24699 - 11/03/24 1835 Requested LDAs do not [...] OSH Carotid stenosis Present on Admission: Yes Production Graphic Designer and mca stenosis Resume home meds as [...] debility after stroke earlier this year: recommend Frldymyvro10yq BID Fracture of right orbital floor (CMS/HCC) [...] Edited by: Manisha Maxwell PA at 11/03/2024 7186 ANDREI Quiles Critical Care Performed by: Micheal [...] 11/03/2024 10:35 AM EDT Pastoral Care Note Prawn Trawler Hand visited with patient and family, sister and niece, at bedside and provided emotional support and a prayer per family request. Pastoral care will continue to be available as needed. Referral From: Prawn Trawler Hand Initiated Pastoral Care Provided For: Patient, Sibling(s), Extended family Patient Profile: Consult Reasons: Emotional support, Family support Spiritual Assessment: Support Systems/ Spiritual Resources: [place], Family, Prayer Spiritual Needs: Emotional support, Prayer, Spiritual support Spiritual Issues: Trauma/ crisis Interventions: Interventions Provided: Emotional support, Family support, Prayer, Identify alevism/ spiritual coping, Introduced Patient/Family to [employer]wn Trawler Hand Services, Supportive Listening, Spiritual support Pastoral Care Outcomes: Patient Outcomes: Demonstrates lower level of Anxious(ness), Is knowledgeable about Javascript Developer Services, Identifies spiritual or alevism practices as helpful, Appreciative of Prawn Trawler Hand Support * Consults - Carol Ann Dai - 11/03/2024 7:52 AM EDTAssociated Order(s): IP CONSULT TO PHYSICAL MEDICINE REHAB PHYSICAL MEDICINE & REHABILITATION INPATIENT CONSULT NOTE Patient: Albania Mata : 1960 PCP: Aman Hernandez MD at [address] [address] / [facility] [address] Payor: [email or web address] MEDICARE / Plan: [employer] MEDICARE / Product [...] Children: 2 Previous Residence: lives alone in [place], [place] in a one story house with [...] patient's stroke in June she went to [facility] until August. After discharge, she had [...] Abnormal Ventricular Rate 85 Atrial Rate 85 IN Interval 146 QRSD Interval 84 QT Interval 394 QTC Interval 468 P [place] 82 R [place] 51 T Wave [place] 184 Diagnosis Poor data quality, interpretation may be adversely affected Diagnosis Normal sinus rhythm Diagnosis Possible Left atrial enlargement Diagnosis Possible Anterior infarct , age undetermined Diagnosis T wave abnormality, consider inferolateral ischemia Diagnosis Abnormal ECG Diagnosis Need clinical information and correlation Diagnosis Confirmed by Tristan Cooper ([id number]) on 10/30/2024 12:08:55 PM *Note: Due to [...] Center 11/21/2024 12:45 PM Navya Woody MD [facility] Mobility Orders Mobility Protocol: Ortho/Trauma/Spine Mobility Guidelines [...] We will continue to follow. Please page [phone] with any questions, or resident on-call if [...] saw and evaluated the patient with the medical/BUSINESS SOLUTION ANALYST/PA student. I discussed the case with the medical/BUSINESS SOLUTION ANALYST/PA student and agree with the findings and [...] by Phoenix Crump Outcome: Ongoing, Progressing 11/03/2024 0346 by Phoenix Crump Outcome: Ongoing, Progressing Goal: Compensation for Sensory Deficit 11/03/2024 034 by Phoenix Crump Outcome: Ongoing, Progressing 11/03/2024 0346 by Phoenix Crump Outcome: Ongoing, Progressing Problem: Infection Goal: Absence of Infection Signs and Symptoms 11/03/2024 034 by Phoenix Crump Outcome: Ongoing, Progressing 11/03/2024 034 by Phoenix Crump Outcome: Ongoing, Progressing Problem: Pain Acute Goal: Optimal Pain Control and Function Outcome: Ongoing, Progressing * Progress Notes - Jeane Cowan - 11/02/2024 3:05 PM EDT Case Management Adult Progress Note [place]ia Mtaa 64 y.o. female CSN: [id number] Admission: 10/30/2024 2:57 AM Primary Problem: Fall Anticipated Discharge Date: TBD Pt is with subacute rehab recs. SW presented to bedside to discuss with pt, pt was receiving bedside care at that time. SW discussed rehab recs with family who were waiting outside pt's room. Pt's son stated that family is agreeable to rehab at [facility]. Referrals sent on this date. SW/CM will continue to follow for resource needs and dispo p coretta. COLETTE Restrepo, CUSHION INSTALLER Trauma/General Surgery ICU * Progress Notes - Renetta Mascorro CCC-BELT KNIFE FEEDER - 11/02/2024 3:00 PM EDT Speech Language [...] of tongue retraction * Progress Notes - Bridgett Cha Samreen - 11/02/2024 2:20 PM EDT Occupational Therapy Treatment Patient Name: Albania Mata Today's Date: 11/02/2024 OT Discharge Recommendations: Subacute rehab Equipment Recommended: Defer to facility Subjective Brother and son very supportive at b/s, pt repeatedly asking when she will be able to return home Participants in Care Family/Caregiver Present: Yes Family/Caregiver: Adult Son, Other (Specify) (brother) Hydrographic Surveyor: Not Applicable Presentation Oxygen Therapy: Supplemental oxygen [...] and increase time to state month of , unable to state the day in July, [...] into standing with max assist x 2 (CLIENT COORDINATOR x 2) with max cues for b/l hand and feet placement, pt was then transferred over to b/s chair, pt with significant difficulty weight shifting and advancing LE's forward - ultimately requiring max assist x 2 (CLIENT COORDINATOR x 2), once in chair additional time [...] b/s chair with max assist x 2 (CLIENT COORDINATOR x 2) however mobility limited due to [...] 2:18 PM EDT Associated Problem(s): Carotid stenosis Production Graphic Designer and mca stenosis Resume home meds as [...] EDT Associated Problem(s): CVA (cerebral vascular accident) ([facility]) PMH CVA and R sided deficits Resume [...] exam. * Progress Notes - Radha Huff, CCC-BELT KNIFE FEEDER - 11/02/2024 11:40 AM EDT Speech Language [...] Positionin-90 degrees Feeding assistance: total assistance from BELT KNIFE FEEDER or caregiver Consistencies Administered: ice chips, thin liquid via teaspoon, and thin liquid via cup Risk Factors: Intubation (prolonged >48 hrs, multiple) w/dysphonia and Elevated oxygenation needs [place] Swallow Protocol (Ed and Daler, 2014) - [...] by mouth Goals MBSS. Radha Huff M.A., CCC-BELT KNIFE FEEDER Speech-Language Pathologist * Progress Notes - Micheal [...] Airway None O2 Delivery Method: Nasal cannula IN SUP: 10 cm H20 Insp Time (sec): 2 sec FiO2 (%): 40 % S RR: 8 IN SUP: 10 cm H20 Output by Drain [...] OSH Carotid stenosis Present on Admission: Yes Production Graphic Designer and mca stenosis Resume home meds as [...] at noon postop labs okay DC A-line BELT KNIFE FEEDER eval Downgrade Edited by: Keri Patel MD [...] COMMUNICATION: Per this written report. Drafted by Zudro Hsieh MD on 11/01/2024 11:01 AM Final [...] Edited by: Vidal Ivey MD at 11/02/2024 8223 Vidal Ivey MD [1] acetaminophen, 1,000 mg, [...] plan as documented. * Op Note - Rauqel Paiz MD - 11/01/2024 2:29 PM EDT Operative Note Date: 11/01/24 Location: [facility] Name: Albania Mata, : 1960, Diagnoses: Pre-op Diagnosis Closed fracture of right zygomatic arch, initial encounter ([facility]) Post-op Diagnosis Closed fracture of right zygomatic arch, initial encounter ([facility]) Procedure(s): Open reduction internal fixation right ZMC fracture Right orbital floor fracture repair Attending Surgeon(s): * Yobani Benoit - Primary Asbestos Cloth Inspector(s): * Raquel Paiz MD - Resident - [...] BARRIER FLOOR AND WALL - [phone] - [id number] Implanted Specimen: None Findings: Right ZMC fracture repaired with a midface places along orbital rim and anterior face of maxillary sinus Right infraorbital nerve identified and preserved Right orbital floor blowout fracture repaired with SynPOR prosthesis Indications: Albania Mata is an 64 y.o. female who is having surgery for Closed fracture of rightzygomatic arch, initial encounter ([facility]). 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 [facility] Department of Ophthalmology Ophthalmology Progress Note Exam [...] Please call with any questions or concerns. [phone] Robbin Nielson MD Resident Physician, PGY-2 Department of Neurosurgery [facility] Cosigned by Barney Osman MD at 11/01/2024 [...] Edited by: Vidal Ivey MD at 11/01/2024 [id number] Vidal Ivey MD [1] acetaminophen, 1,000 mg, [...] OSH Carotid stenosis Present on Admission: Yes Production Graphic Designer and mca stenosis Resume home meds as [...] utilized pulse oximeter probe site changed Taken 11/01/2024399 Body Position: turned heels elevated Intervention: Prevent [...] provided Intervention: Provide Person-Centered Care Flowsheets (Taken 10/30/2024822 by Earline Ridley, RN) Trust Relationship/Rapport: care [...] Note: Tube feeds * Progress Notes - Bridgett Cha Samreen - 10/31/2024 4:48 PM EDT Occupational [...] Family/Caregiver: Adult Son, Other (Specify) (brother, niece) Hydrographic Surveyor: Not Applicable Presentation Oxygen Therapy: Supplemental oxygen [...] chair Home Living Comments: Pt went to [facility] following CVA in June 2024. Since then, Pt has had 24/7 assistance from family at home. Prior Level of Function Receives Help From: (Family) Level of Mobility: Ambulatory- household only (primarily household since CVA, occasional trips to grocery store) Mobility Alpha: Independent gait with device (rolling walker) History [...] lethargy Bed Mobility Exam: Scooting/Bridging Level of Alpha: Maximum assist (25% patient's effort) Physical/Nonphysical Assist: Verbal Cues, Nonverbal cues (demo/gestures), Additional assist utilized for safety Bed Mobility Exam: Supine to Sit Level of Alpha: Dependent Physical/Nonphysical Assist: Verbal Cues, Nonverbal cues (demo/gestures), Additional assist utilized for safety Bed Mobility Exam: Sit to Supine Level of Alpha: (pt was left seated OOBTC) Transfers Transfer Interventions: pt was instructed on b/l hand and feet placement when transitioning to upright, pt with overall fair carryover, pt with noted to have mild/moderate increase tone throughout right LE- limiting pt's ability to transition to upright Transfer Exam: Sit to stand Level of Alpha: Maximum assist (25% patient's effort) (x2) Physical/Nonphysical Assist: Verbal Cues, Nonverbal cues (demo/gestures), Additional assist utilized for safety Assistive Device: Hand held assist Transfer Exam: Stand to Sit Level of Alpha: Maximum assist (25% patient's effort) (x2) Physical/Nonphysical Assist: Verbal Cues, Nonverbal cues (demo/gestures), Additional assist utilized for safety Assistive Device: Hand held assist Transfer Exam: Bed to Chair/Chair to Bed Level of Alpha: Maximum assist (25% patient's effort) (x2) Physical/Nonphysical [...] Standing - Interventions: max assist x 2 (CLIENT COORDINATOR x 2), pt with liimited weight bearing throughout right LE due to increase tone Dynamic Standing Balance Dynamic Standing-Balance Support: Right upper extremity support, Left upper extremity support Dynamic Standing Level of Assistance: Maximum assistance Dynamic Standing - Interventions: pt required max assist x 2 (CLIENT COORDINATOR x 2) stand pivot sit transfer to [...] as pt's son, niece, and brother at [employer], prior to pt's CVA in spring pt was completely independent and independently living alone, son reports after stroke pt went to [facility] for 1 week prior to discharging [...] Family/Caregiver: Adult Son, Other (Specify) (brother, niece) Hydrographic Surveyor: Not Applicable Presentation Oxygen Therapy: Supplemental oxygen [...] chair Home Living Comments: Pt went to [facility] following CVA in June 2024. Since then, Pt has had 24/ assistance from family at home. Prior Level of Function Receives Help From: (Family) Level of Mobility: Ambulatory- household only (primarily household since CVA, occasional trips to grocery store) Mobility Alpha: Independent gait with device (rolling walker, wears [...] following. Bed Mobility Exam: Scooting/Bridging Level of Alpha: Maximum assist (25% patient's effort) Physical/Nonphysical Assist: Verbal Cues, Nonverbal cues (demo/gestures), Additional assist utilized for safety Bed Mobility Exam: Supine to Sit Level of Alpha: Dependent Physical/Nonphysical Assist: Verbal Cues, Nonverbal cues [...] Transfer Exam: Sit to stand Level of Alpha: Maximum assist (25% patient's effort) Physical/Nonphysical Assist: Verbal Cues, Nonverbal cues (demo/gestures), Additional assist utilized for safety Assistive Device: Hand held assist Transfer Exam: Stand to Sit Level of Alpha: Maximum assist (25% patient's effort) Physical/Nonphysical Assist: Verbal Cues, Nonverbal cues (demo/gestures), Additional assist utilized for safety Assistive Device: Hand held assist Transfer Exam: Bed to Chair/Chair to Bed Level of Alpha: Maximum assist (25% patient's effort) Physical/Nonphysical Assist: [...] recommendations. Standardized Assessments Standardized Assessments Standardized Assessments: [facility] 6-Clicks Mobility Assessment [facility] 6-Clicks Mobility Assessment Difficulty patient has turning [...] climbing 3-5 steps with a railing?: Unable [facility] 6-Clicks Mobility Assessment Total : 10 Assessment [...] Note Albania Mata 64 y.o. female CSN: [id number] Room/Bed 239/239A Nutrition evaluation type: assessment Reason for evaluation: [facility] Hospital course: 64 y.o female admitted after [...] Supplemental oxygen O2 Delivery Method: Nasal cannula [place] Coma Scale Score: 10 Pietro/Cubbin Pressure Risk [...] (Calculated): 26.41 Weight Evaluation: Overweight (BMI 25-29.9) [place] Body Weight (kg): 52.3 Percent [place] Body Weight: 129 Adjusted Body Weight (kg): [...] Interventions and Recommendations: - PO diet per BELT KNIFE FEEDER - TF Recs: - Impact Peptide 1.5 [...] Note Albania Mata 64 y.o. female CSN: [id number] Admission: 10/30/2024 2:57 AM Primary Problem: Fall Americanization Teacher reviewed chart and spoke with patient's son Sami at bedside to complete this Initial Case Management Assessment. Pt remained intubated in ICU level care and could not participate in conversation. PCP: Aman Hernandez MD Emergency Contact: Extended Emergency Contact Information Primary Emergency Contact: Artemio Urbina Mobile Relation: Son Secondary Emergency Contact: Salazar,Trice Mobile Relation: Relative Preferred language: Austrian Hydrographic Surveyor needed? No Insurance: Primary Visit Coverage Payer Plan Sponsor Code Group Number Group Name HUMANA MEDICARE HUMANA MEDICARE [id number] Primary Visit Coverage Subscriber Subscriber ID Subscriber Name Subscriber SSN Subscriber Address [id number] ALBANIA MATA [id number] [address] [place] [address] Patient information: Primary Caregiver: Self Accompanied by/Relationship: Son Sami Support System: Immediate family, Extended family Daily Living Activities: Functional Status: Moderate assistance Living Arrangements: Alone Type of Residence: Private residence [address] [facility] [address] [address] Smoker in the Home?: N/A Current DME: [...] Services: None reported. Living Will/Advance Directive/Power of Book Sorter /Guardian: Pt's two sons are her healthcare [...] Alcohol Misuse (07/20/2024) Received from [facility] AUDIT-C Q1: How often do you [...] Medium Risk (09/01/2024) Received from [facility] Patient History Smoking Tobacco Use: Former Smokeless Tobacco Use: Never Passive Exposure: Past Transportation Needs: Patient Unable To Answer (10/31/2024) PRAPARE - Transportation Lack of Transportation (Medical): Patient unable to answer Lack of Transportation (Non-Medical): Patient unable to answer Depression: Not at risk (09/01/2024) Received from [facility] PHQ-2 Patient Health Questionnaire-2 Score: 0 Utilities: Patient Unable To Answer (10/31/2024) [facility] Utilities Threatened with loss of utilities: [...] Activity: Inactive (07/20/2024) Received from [facility] Exercise Vital Sign On average, how many days per week do you engage in moderate to strenuous exercise (like a brisk walk)?: 0 days On average, how many minutes do you engage in exercise at this level?: 0 min Social Connections: Unknown (07/20/2024) Received from [facility] Family and Community Support If for [...] stated that pt lives at home in [place], [place]. Sami stated that pt had a stroke earlier this year and since then family members have been staying with pt and she is rarely alone for more than a couple hours. Pt was at [facility] for rehab in June. Pt is currently intubated in ICU level care. SW/CM will continue to follow for resource needs and dispoplanning. 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 UOP 0.5ml/kg/hr. Hgb 9.2 from 10.4, likely dilutional. Tmax 100.4, WBC stable, no abx. Edited by: Kerwin Johnson MD at 10/31/2024 0911 Are there limits on this patient's care or advanced wishes/documents available? No Past Medical History: Active Ambulatory Problems Diagnosis Date Noted No Active Ambulatory Problems Resolved Ambulatory Problems Diagnosis Date Noted No Resolved Ambulatory Problems Past Medical History: Diagnosis Date Depression Fibromyalgia Hx of degenerative disc disease Hyperlipidemia Hypertension Neuropathy Stroke ([facility]) Past Surgical History: Surgical History[1] Home Medications: [...] 1 Output by Drain (mL) 10/29/24699 - 10/29/24 18510/29/241899 - 10/30/24 0659 10/30/24699 - 10/30/24185810/30/241899 - [...] OSH Carotid stenosis Present on Admission: Yes Production Graphic Designer and mca stenosis Resume home meds as [...] pLOV tonight Tertiary note today Edited by: Erica Castillo APRN at 10/31/2024 1048 Erica Castillo [...] Please call with any questions or concerns. [phone] [place] PGY-1 Pager: [phone] Cosigned by Barney Osman MD at 10/31/2024 [...] tobacco, and illicit drug use. Lives in [place], [place]. Review of Systems 14 point review [...] with questions. Shannon Mack MD Ophthalmology Pager: [phone] [1] Past Medical History: Diagnosis Date Depression [...] were discussed: yes Alternatives discussed: No treatment [place] protocol: Imaging studies available: yes Site/side marked: [...] Tmax 98.1, not on abx. Last BM AGRICULTURAL ECONOMICS TEACHER, currently NPO. Edited by: Erica Castillo APRN at 10/30/2024 0935 Patient Active Problem List Diagnosis Date Noted Zygomatic arch fracture ([facility]) 10/30/2024 Injury of globe of eye, right, initial encounter 10/30/2024 Fall 10/30/2024 TBI (traumatic brain injury) ([facility]) 10/30/2024 Carotid stenosis 10/30/2024 ABLA (acute blood loss anemia) 10/30/2024 Hyperglycemia 10/30/2024 Acute respiratory failure with hypoxia 10/30/2024 Lactic acidosis 10/30/2024 Electrolyte abnormality 10/30/2024 MELISSA (acute kidney injury) ([facility]) 10/30/2024 Hypothyroidism 10/30/2024 Hypertension 10/30/2024 Hyperlipidemia 10/30/2024 CVA (cerebral vascular accident) ([facility]) 10/30/2024 Plan: Transfused PLTS, concern for transfusion [...] by: son. Risks discussed: Bleeding and infection [place] protocol: Imaging studies available: yes Site/side marked: [...] MD Resident Physician, PGY-2 Department of Neurosurgery [facility] Cosigned by Barney Osman MD at 10/30/2024 [...] included. Consult to ENT/Otolaryngology Consult performed by: Geogrette Song MD Consult ordered by: Iker Reagan [...] Medium Risk (09/01/2024) Received from [facility] Patient History Smoking Tobacco Use: Former Smokeless Tobacco Use: Never Passive Exposure: Past Alcohol Use: Alcohol Misuse (07/20/2024) Received from [facility] AUDIT-C Q1: How often do you [...] R hemiparesis), ASA, Plavix, HTN,HLD, carotid stent ([facility], ), DDD who presents from OSH after [...] Medium Risk (09/01/2024) Received from [facility] Patient History Smoking Tobacco Use: Former [...] Date: 10/30/24 Arrival Time: 229 Referring Hospital: [facility] Injury Date: 10/29/24 Injury Time: 190 Transport [...] disc disease, Hyperlipidemia, Hypertension, Neuropathy, and Stroke ([facility]). Reviewed as documented above Surgical History She [...] kg (149 lb 0.5 oz), SpO2 100%. [place] Coma Scale Best Eye Response: Spontaneous Best [...] and teaching time. * ED Notes - Liea Ojeda RN - 10/30/2024 3:12 AM EDT Patient arrived intubated from outside hospital as a trauma alert. All ED documentation completed on paper prior to EPIC downtime resolving. * Consults - Hugo Flores - 10/30/2024 2:30 AM EDT Pastoral Care Note Prawn Trawler Hand responded to trauma alert. Medical team tended [...] PGY4 * ED Provider Notes - Jacques Otto, - 10/30/2024 2:28 AM EDT Images from [...] Start Status Ordering Provider 10/31/24 0600 Scheduled KATHARINE SAVAGE 11/03/24 0600 Scheduled DANIELLA, KATHARINE S 11/07/24 0600 Scheduled DANIELLA, KATHARINE S 11/10/24 0600 Scheduled DANIELLA, KATHARINE S 11/14/24 0600 Scheduled DANIELLA, KATHARINE S 11/17/24 0600 Scheduled DANIELLA, KATHARINE S 11/21/24 0600 Scheduled DANIELLA, KATHARINE S 11/24/24 0600 Scheduled DANIELLA, KATHARINE S Ordered DANIELLA, KATHARINE S 10/30/24 0319 Consult to Trauma Surgery Once Specialty: Trauma Surgery Provider: (Not yet assigned) Ordered LETICIA JACQUES B 10/30/24 031 ED to floor bed request [...] provider for updated RASS goal order. Ordered DANIELLA KATHARINE Bernstein On initial evaluation patient is intubated, breath [...] please document in the comment field Jacques Otto DO Resident 10/30/24 0828 Cosigned by Iker [...] Care Team (Late st Contact Info) Description 12/15/2024 12:00 PM EDT Appointment [facility] [address] [place] [address] 12/15/2024 1:30 PM EDT Office Visit [facility] [address] [place] [address] Raymond Nuñez MD [address] [place] [address] 12/30/2024 1:00 PM EST Office Visit [facility] Otolaryngology [address] [place] [address] Yobani Benoit MD [address] [place] [address] 05/24/2025 2:30 PM EDT Office Visit [facility] [address] [place] [address] Navya Woody MD [address] [facility] [address] [place] [address] 06/07/2025 2:00 PM EDT Consult [place] [facility] [address] [place] [address] Haseeb Dias MD [address] [facility] [place] [address] Scheduled Referrals Name Type Priority Associated Diagnoses Orde r Schedule Discharge Ambulatory referral to Neurosurgery Outpatient Referral Routine Fall, initial encounter Traumatic brain injury, with unknown loss of consciousness status, initial encounter ([facility]) Expected: 11/12/2024 (Approximate), Expires: 05/16/2026 Discharge Ambulatory referral to ENT Outpatient Referral Routine Fall, initial encounter Closed fracture of zygomatic arch, unspecified laterality, initial encounter ([facility]) Expected: 11/26/2024, Expires: 05/16/2026 documented as of [...] OXYGEN THERAPY Routine 11/04/2024 8:00 AM EDT IN CRITICAL CARE, E/M 30-74 MINUTES Routine 11/04/2024 7:05 AM EDT Fall, initial encounter Electrolyte abnormality Traumatic brain injury, with unknown loss of consciousness status, initial encounter ([facility]) Acute respiratory failure with hypoxia Hypertension, unspecified [...] 3+ VIEWS Routine 11/03/2024 12:43 PM EDT IN CRITICAL CARE, E/M 30-74 MINUTES Routine 11/03/2024 11:16 AM EDT Fall, initial encounter Electrolyte abnormality Traumatic brain injury, with unknown loss of consciousness status, initial encounter ([facility]) Acute respiratory failure with hypoxia OXYGEN THERAPY [...] OXYGEN THERAPY Routine 11/02/2024 12:53 PM EDT IN CRITICAL CARE, E/M 30-74 MINUTES Routine 11/02/2024 10:25 AM EDT Fall, initial encounter Traumatic brain injury, with unknown loss of consciousness status, initial encounter ([facility]) Acute respiratory failure with hypoxia Hypertension, unspecified [...] fracture of right zygomatic arch, initial encounter ([facility]) IN OPEN RX COMPLX CHEEK BONE FRAC 11/01/2024 1:40 PM EDT Closed fracture of right zygomatic arch, initial encounter ([facility]) XR CHEST 1 VIEW STAT 11/01/2024 12:15 [...] 3+ VIEWS STAT 11/01/2024 9:55 AM EDT IN CRITICAL CARE, E/M 30-74 MINUTES Routine 11/01/2024 7:22 AM EDT Fall, initial encounter Hyperlipidemia, unspecified hyperlipidemia type Traumatic brain injury, with unknown loss of consciousness status, initial encounter ([facility]) Acute respiratory failure with hypoxia IONIZED CALCIUM, [...] EDT EXTUBATION Routine 10/31/2024 1:11 PM EDT IN CRITICAL CARE, E/M 30-74 MINUTES Routine 10/31/2024 [...] 10/30/2024 4:02 PM EDT Fall, initial encounter IN INSERT NON-TUNNEL CV CATH Routine 10/30/2024 4:02 [...] REACTION INVESTIGATION Routine 10/30/2024 10:04 AM EDT IN CRITICAL CARE, ADDL 30 MIN Routine 10/30/2024 [...] globe of eye, right, initial encounter Debility IN CRITICAL CARE, ADDL 30 MIN Routine 10/30/2024 [...] 10/30/2024 9:11 AM EDT Intraventricular hemorrhage (CMS/HCC) IN INSERT CATH,ART,PERCUT,LOR ERM Routine 10/30/2024 9:11 AM [...] Nathaniel Alcaraz MD on 11/12/2024 1:16 AM us Katharine Savage MD IMG CT PROCEDURES Final [...] - 99 mg/dL 11/11/2024 10:51 PM EDT [facility] Comment:Accuracy of a glucos e result [...] for testing. Comment 11/11/2024 10:51 PM EDT [facility] Windows System Admin ID Zackery Cohen 11/12/19 10:51 PM EDT [facility]ARE [facility] Device ID [id number] 11/11/2024 10:51 PM EDT [facility] Specimen Type POC Capillary 11/11/2024 10:51 PM EDT [facility] Blood Capillary blood specimen / Unknown 11/11/2024 10:50 PM EDT 11/11/2024 10:51 PM EDT Katharine Savage MD LAB POINT OF CARE TE ST DOCKED DEVICE UNSOLICITED RESULTS Final Result [facility] [address] [place] [address] * (ABNORMAL) Wound Culture and Gram Stain (11/04/2024 11:57 AM EDT) CULTURE READING WOUND Light Growth 11/07/2024 12:50 PM EDT [facility] CULTURE READING WOUND 1+ Methicillin-Resista nt Staphylococcus aureus(AA) GERM[place]N 11/07/2024 12:50 PM EDT [facility] Comment: The organism value for this result has been updated. These results have been appended to the previously preliminary verified report. Edited result: Previously reported as Staphylococcus aureus on 11/05/2024 at 0710 EDT. Staphylococcus aureus has been updated to reportable. CULTURE READING WOUND 1+ Staphylococcus epidermidis(A) [place]ERM[place]N 11/07/2024 12:50 PM EDT [facility] Comment: This isolate has been identified using the FDA Approved [employer] System The organism value for this result has been updated. These results have been appended to the previously preliminary verified report. Gram Stain Result Few Polymorphonuclear leukocytes(A) 11/07/2024 12:50 PM EDT [facility] Gram Stain Result Few Gram positive cocci in clusters(A) 11/07/2024 12:50 PM EDT [facility] Swab Skin structure / Unknown Non-blood [...] LAB MICROBIOLOGY - GENERAL ORDERABLES Final Result [facility] [address] [place] [address] * IN CRITICAL CARE, E/M 30-74 MINUTES (11/04/2024 7:05 [...] Aggressive pulmonary toilet. On goal tube feeds. [employer] evaluated and cleared for diet but PO [...] - 4.5 mg/dL 11/04/2024 12:48 AM EDT [facility] Blood Venous blood specimen / Unknown Venipuncture / Unknown 11/04/2024 12:07 AM EDT 11/04/2024 12:16 AM EDT Manisha FORBES LAB BLOOD ORDERABLES Final R esult Performing Organization Address [facility] Co de Phone Number [facility] [address] [place] [address] * Magnesium (11/04/2024 12:07 AM EDT) Magnesium, Plasma 2.2 1.9 - 2.4 mg/dL 11/04/2024 12:48 AM EDT [facility] Blood Venous blood specimen / Unknown Venipuncture / Unknown 11/04/2024 12:07 AM EDT 11/04/2024 12:16 AM EDT Manisha FORBES LAB BLOOD ORDERABLES Final R esult [facility] [address] [place] [address] * (ABNORMAL) Basic metabolic panel (11/04/2024 12:07 AM EDT) Glucose, Plasma 114(H) 74 - 99 mg/dL 11/04/2024 12:48 AM EDT [facility] BUN, Plasma 21 8 - 23 mg/dL 11/04/2024 12:48 AM EDT [facility] Creatinine, Plasma 0.73 0.60 - 1.10 mg/dL 11/04/2024 12:48 AM EDT [facility] BUN/Creatinine Ratio 29 11/04/2024 12:48 AM EDT [facility] Sodium, Plasma 143 136 - 145 mmol/L 11/04/2024 12:48 AM EDT [facility] Potassium, Plasma 3.9 3.6 - 4.9 mmol/L 11/04/2024 12:48 AM EDT [facility] Chloride, Plasma 108(H) 97 - 107 mmol/L 11/04/2024 12:48 AM EDT [facility] CO2, Plasma 27 22 - 29 mmol/L 11/04/2024 12:48 AM EDT [facility] Anion Gap 8 6 - 16 mmol/L 11/04/2024 12:48 AM EDT [facility] Total Calcium, Plasma 7.9(L) 8.9 - 10.2 mg/dL 11/04/2024 12:48 AM EDT [facility] eGFRcr 90.8 mL/min/1.7 3m*2 11/04/2024 12:48 AM EDT [facility] Comment:Reported eGFRcr in m L/min/1.73m2 is based the CKD-EPI 2020 equation that does not use a race coefficient. Blood Venous blood specimen / Unknown Venipuncture / Unknown 11/04/2024 12:07 AM EDT 11/04/2024 12:16 AM EDT us Manisha FORBES LAB BLOOD ORDERABLES Final R esult [facility] [address] [place] [address] * (ABNORMAL) CBC W/O Differential (11/04/2024 12:07 AM EDT) WBC Count 7.42 3.70 - 10.30 10*3/uL LAB HEMATOLOGY METHOD 11/04/2024 12:26 AM EDT [facility] RBC Count 2.89(L) 3.90 - 5.20 10*6/uL LAB HEMATOLOGY METHOD 11/04/2024 12:26 AM EDT [facility] HGB 7.9(L) 11.2 - 15.7 g/dL LAB HEMATOLOGY METHOD 11/04/2024 12:26 AM EDT [facility] HCT 25.5(L) 34.0 - 45.0 % LAB HEMATOLOGY METHOD 11/04/2024 12:26 AM EDT [facility] Platelet Count 229 155 - 369 10*3/uL LAB HEMATOLOGY METHOD 11/04/2024 12:26 AM EDT [facility] MCV 88 79 - 98 fL LAB HEMATOLOGY METHOD 11/04/2024 12:26 AM EDT [facility] MCH 27.3 26.0 - 32.0 pg LAB HEMATOLOGY METHOD 11/04/2024 12:26 AM EDT [facility] MCHC 31.0 30.7 - 35.5 g/dL LAB HEMATOLOGY METHOD 11/04/2024 12:26 AM EDT [facility] RDW 13.6 11.5 - 14.5 % LAB HEMATOLOGY METHOD 11/04/2024 12:26 AM EDT [facility] MPV 10.8 8.8 - 12.5 fL LAB HEMATOLOGY METHOD 11/04/2024 12:26 AM EDT [facility] nRBC 0.0 <=0.0 per 100 WBCs LAB HEMATOLOGY METHOD 11/04/2024 12:26 AM EDT [facility] Blood Venous blood specimen / Unknown Venipuncture / Unknown 11/04/2024 12:07 AM EDT 11/04/2024 12:18 AM EDT us Manisha FORBES LAB BLOOD ORDERABLES Final R esult [facility] [address] [place] [address] * (ABNORMAL) CBC W/O Differential (11/03/2024 3:13 PM EDT) WBC Count 9.52 3.70 - 10.30 10*3/uL LAB HEMATOLOGY METHOD 11/03/2024 3:46 PM EDT [facility] RBC Count 3.24(L) 3.90 - 5.20 10*6/uL LAB HEMATOLOGY METHOD 11/03/2024 3:46 PM EDT [facility] HGB 8.8(L) 11.2 - 15.7 g/dL LAB HEMATOLOGY METHOD 11/03/2024 3:46 PM EDT [facility] HCT 28.3(L) 34.0 - 45.0 % LAB HEMATOLOGY METHOD 11/03/2024 3:46 PM EDT [facility] Platelet Count 255 155 - 369 10*3/uL LAB HEMATOLOGY METHOD 11/03/2024 3:46 PM EDT [facility] MCV 87 79 - 98 fL LAB HEMATOLOGY METHOD 11/03/2024 3:46 PM EDT [facility] MCH 27.2 26.0 - 32.0 pg LAB HEMATOLOGY METHOD 11/03/2024 3:46 PM EDT [facility] MCHC 31.1 30.7 - 35.5 g/dL LAB HEMATOLOGY METHOD 11/03/2024 3:46 PM EDT [facility] RDW 13.5 11.5 - 14.5 % LAB HEMATOLOGY METHOD 11/03/2024 3:46 PM EDT [facility] MPV 11.1 8.8 - 12.5 fL LAB HEMATOLOGY METHOD 11/03/2024 3:46 PM EDT [facility] nRBC 0.0 <=0.0 per 100 WBCs LAB HEMATOLOGY METHOD 11/03/2024 3:46 PM EDT [facility] Blood Venous blood specimen / Unknown Venipuncture / Unknown 11/03/2024 3:13 PM EDT 11/03/2024 3:38 PM EDT us Micheal Espinoza MD LAB BLOOD ORDERABLES Final Result [facility] [address] [place] [address] * XR Ankle Right 3+ Views (11/03/2024 [...] IMG XR PROCEDURES Final Resu lt * IN CRITICAL CARE, E/M 30-74 MINUTES (11/03/2024 11:16 [...] 11/03/2024 8:27 AM Final report signed by Ehtan Grande MD on 11/03/2024 9:24 AM Micheal Espinoza MD IMG XR PROCEDURES Final Re sult * (ABNORMAL) Phosphorus (11/03/2024 2:08 AM EDT) Phosphorus, Plasma 2.1(L) 2.5 - 4.5 mg/dL 11/03/2024 3:24 AM EDT [facility] Blood Venous blood specimen / Unknown Venipuncture / Unknown 11/03/2024 2:08 AM EDT 11/03/2024 2:17 AM EDT Micheal Espinoza MD LAB BLOOD ORDERABLES Final Result [facility] [address] [place] [address] * Magnesium (11/03/2024 2:08 AM EDT) Magnesium, Plasma 2.1 1.9 - 2.4 mg/dL 11/03/2024 3:24 AM EDT [facility] Blood Venous blood specimen / Unknown Venipuncture / Unknown 11/03/2024 2:08 AM EDT 11/03/2024 2:17 AM EDT us Micheal Espinoza MD LAB BLOOD ORDERABLES Final Result [facility] [address] [place] [address] * (ABNORMAL) Comprehensive metabolic panel (11/03/2024 2:08 AM EDT) Glucose, Plasma 163(H) 74 - 99 mg/dL 11/03/2024 3:24 AM EDT [facility] BUN, Plasma 22 8 - 23 mg/dL 11/03/2024 3:24 AM EDT [facility] Creatinine, Plasma 0.78 0.60 - 1.10 mg/dL 11/03/2024 3:24 AM EDT [facility] BUN/Creatinine Ratio 28 11/03/2024 3:24 AM EDT [facility] Sodium, Plasma 142 136 - 145 mmol/L 11/03/2024 3:24 AM EDT [facility] Potassium, Plasma 4.1 3.6 - 4.9 mmol/L 11/03/2024 3:24 AM EDT [facility] Chloride, Plasma 109(H) 97 - 107 mmol/L 11/03/2024 3:24 AM EDT [facility] CO2, Plasma 25 22 - 29 mmol/L 11/03/2024 3:24 AM EDT [facility] Anion Gap 8 6 - 16 mmol/L 11/03/2024 3:24 AM EDT [facility] Total Calcium, Plasma 7.9(L) 8.9 - 10.2 mg/dL 11/03/2024 3:24 AM EDT [facility] Total Protein 5.5(L) 6.3 - 7.9 g/dL 11/03/2024 3:24 AM EDT [facility] Albumin, Plasma 2.8(L) 3.5 - 5.2 g/dL 11/03/2024 3:24 AM EDT [facility] AST, Plasma 32 10 - 35 U/L 11/03/2024 3:24 AM EDT [facility] ALT, Plasma 46(H) 10 - 35 U/L 11/03/2024 3:24 AM EDT [facility] Alkaline Phosphatase, Plasma 154(H) 46 - 142 U/L 11/03/2024 3:24 AM EDT [facility] Total Bilirubin, Plasma 0.3 0.2 - 1.1 mg/dL 11/03/2024 3:24 AM EDT [facility] eGFRcr 83.9 mL/min/1.7 3m*2 11/03/2024 3:24 AM EDT [facility] Comment:Reported eGFRcr in m L/min/1.73m2 is based the CKD-EPI 2020 equation that does not use a race coefficient. Blood Venous blood specimen / Unknown Venipuncture / Unknown 11/03/2024 2:08 AM EDT 11/03/2024 2:17 AM EDT us Micheal Espinoza MD LAB BLOOD ORDERABLES Final Result [facility] [address] [place] [address] * (ABNORMAL) CBC and differential (11/03/2024 2:08 AM EDT) WBC Count 7.77 3.70 - 10.30 10*3/uL LAB HEMATOLOGY METHOD 11/03/2024 2:33 AM EDT [facility] RBC Count 2.74(L) 3.90 - 5.20 10*6/uL LAB HEMATOLOGY METHOD 11/03/2024 2:33 AM EDT [facility] HGB 7.6(L) 11.2 - 15.7 g/dL LAB HEMATOLOGY METHOD 11/03/2024 2:33 AM EDT [facility] HCT 24.4(L) 34.0 - 45.0 % LAB HEMATOLOGY METHOD 11/03/2024 2:33 AM EDT [facility] Platelet Count 193 155 - 369 10*3/uL LAB HEMATOLOGY METHOD 11/03/2024 2:33 AM EDT [facility] MCV 89 79 - 98 fL LAB HEMATOLOGY METHOD 11/03/2024 2:33 AM EDT [facility] MCH 27.7 26.0 - 32.0 pg LAB HEMATOLOGY METHOD 11/03/2024 2:33 AM EDT [facility] MCHC 31.1 30.7 - 35.5 g/dL LAB HEMATOLOGY METHOD 11/03/2024 2:33 AM EDT [facility] RDW 13.7 11.5 - 14.5 % LAB HEMATOLOGY METHOD 11/03/2024 2:33 AM EDT [facility] MPV 10.8 8.8 - 12.5 fL LAB HEMATOLOGY METHOD 11/03/2024 2:33 AM EDT [facility] nRBC 0.0 <=0.0 per 100 WBCs LAB HEMATOLOGY METHOD 11/03/2024 2:33 AM EDT [facility] Differential Type Automated LAB HEMATOLOGY METHOD 11/03/2024 2:33 AM EDT [facility] Neutrophils % 72 % LAB HEMATOLOGY METHOD 11/03/2024 2:33 AM EDT [facility] Lymphocytes % 21 % LAB HEMATOLOGY METHOD 11/03/2024 2:33 AM EDT [facility] Monocytes % 5 % LAB HEMATOLOGY METHOD 11/03/2024 2:33 AM EDT [facility] Eosinophils % 2 % LAB HEMATOLOGY METHOD 11/03/2024 2:33 AM EDT [facility] Basophils % 0 % LAB HEMATOLOGY METHOD 11/03/2024 2:33 AM EDT [facility] Immature Granulocytes % 0 % LAB HEMATOLOGY METHOD 11/03/2024 2:33 AM EDT [facility] Neutrophils Absolute 5.60 1.60 - 6.10 10*3/uL LAB HEMATOLOGY METHOD 11/03/2024 2:33 AM EDT [facility] Lymphocytes Absolute 1.62 1.20 - 3.90 10*3/uL LAB HEMATOLOGY METHOD 11/03/2024 2:33 AM EDT [facility] Monocytes Absolute 0.35 0.30 - 0.90 10*3/uL LAB HEMATOLOGY METHOD 11/03/2024 2:33 AM EDT [facility] Eosinophils Absolute 0.15 0.00 - 0.50 10*3/uL LAB HEMATOLOGY METHOD 11/03/2024 2:33 AM EDT [facility] Basophils Absolute 0.02 0.00 - 0.10 10*3/uL LAB HEMATOLOGY METHOD 11/03/2024 2:33 AM EDT [facility] Immature Granulocytes Absolute 0.03 0.00 - 0.06 10*3/uL LAB HEMATOLOGY METHOD 11/03/2024 2:33 AM EDT [facility] Blood Venous blood specimen / Unknown Venipuncture / Unknown 11/03/2024 2:08 AM EDT 11/03/2024 2:24 AM EDT Narrative [facility] - 11/03/2024 2:33 AM EDT Therapeutic decision making should be based on absolute values, rather than percentages. us Micheal Espinoza MD LAB BLOOD ORDERABLES Final Result [facility] [address] [place] [address] * [place] Modified Barium Swallow (11/02/2024 3:21 [...] signing this report, I, the attending physician, attaguedathat I have personally reviewed the images/data for the aboveexamination(s) and agree with the final edited report. Drafted by Kerwin Kennedy III, MD on 11/02/2024 4:35 PM Final report signed by Carter Palomo MD on 11/02/2024 5:10 PM us Micheal Espinoza MD IMG FLUOROSCOPY PROCEDURES Final Result * IN CRITICAL CARE, E/M 30-74 MINUTES (11/02/2024 10:25 [...] October 30, 2024. Face CT scan from [facility] from October 29, 2024 FINDINGS: Diagnostic Quality: [...] October 30, 2024. Face CT scan from [facility] from October 29, 2024 FINDINGS: [...] 7.31 - 7.42 11/01/2024 6:42 PM EDT [facility] pCO2, Arterial 46 35 - 48 mm Hg 11/01/2024 6:42 PM EDT [facility] pO2, Arterial 72(L) >80 mm Hg 11/01/2024 6:42 PM EDT [facility] SO2, Arterial 97 94 - 98 % 11/01/2024 6:42 PM EDT [facility] FIO2 50.0 % 11/01/2024 6:42 PM EDT [facility] Base Excess, Arterial 1.7 -2 - 3 mmol/L 11/01/2024 6:42 PM EDT [facility] HCO3, Arterial 27.2(H) 22 - 26 mmol/L 11/01/2024 6:42 PM EDT [facility] Total Hemoglobin, Arterial, Whole Blood 8.9(L) 11.2 - 15.7 g/dL 11/01/2024 6:42 PM EDT [facility] Hematocrit, Arterial 27.0(L) 34.0 - 45.0 % 11/01/2024 6:42 PM EDT [facility] Sodium, Arterial 141 136 - 145 mmol/L 11/01/2024 6:42 PM EDT [facility] Potassium, Arterial 4.6 3.6 - 4.9 mmol/L 11/01/2024 6:42 PM EDT [facility] Chloride, Whole Blood 109(H) 97 - 107 mmol/L 11/01/2024 6:42 PM EDT [facility] Glucose, Arterial 122(H) 74 - 99 mg/dL 11/01/2024 6:42 PM EDT [facility] Ionized Calcium, Arterial 5.2(H) 4.6 - 5.1 mg/dL 11/01/2024 6:42 PM EDT [facility] Lactate, Arterial 0.8 0.5 - 1.6 mmol/L 11/01/2024 6:42 PM EDT [facility] Body Temperature 37.5 Celsius 11/01/2024 6:42 PM EDT [facility] pH, Temp Corrected, Arterial 7.37 7.31 - 7.42 11/01/2024 6:42 PM EDT [facility] pCO2, Temp Corrected, Arterial 47 35 - 48 mm Hg 11/01/2024 6:42 PM EDT [facility] pO2, Temp Corrected, Arterial 74(L) >80 mm Hg 11/01/2024 6:42 PM EDT [facility] Windows System Admin ID Edwin Sommers 11/01/2024 6:42 PM EDT [facility] Blood, Arterial Whole blood specimen / Unknown 11/01/2024 6:41 PM EDT 11/01/2024 6:42 PM EDT Micheal Espinoza MD LAB POINT OF CARE TEST DOCKED DEVICE UNSOLICITED RESULTS Final Result Performing Organization Address City/State/[facility] Co de Phone Number [facility] [address] [place], [place] [id number] * (ABNORMAL) POCT glucose meter (11/01/2024 6:09 PM EDT) [facility] POCT Glucose 102(H) 74 - 99 mg/dL [...] Comment 11/01/2024 6:11 PM EDT [facility] Windows System Admin ID Danitza Méndez 11/01/2024 6:11 PM EDT [facility] Device ID [id number] 11/01/2024 6:11 PM EDT [facility] Specimen Type POC Arterial 11/01/2024 6:11 PM EDT [facility] Blood Arterial blood specimen / Unknown 11/01/2024 6:09 PM EDT 11/01/2024 6:11 PM EDT us Micheal Espinoza MD LAB POINT OF CARE TEST DOCKED DEVICE UNSOLICITED RESULTS Final Result [facility] [address] [place] [address] * Phosphorus (11/01/2024 6:09 PM EDT) Phosphorus, Plasma 3.5 2.5 - 4.5 mg/dL 11/01/2024 6:53 PM EDT [facility] Blood Venous blood specimen / Unknown Venipuncture / Unknown 11/01/2024 6:09 PM EDT 11/01/2024 6:22 PM EDT us Micheal Espinoza MD LAB BLOOD ORDERABLES Final Result Performing Organization Address City/[facility]/ZIP Co de Phone Number [facility] [address] [place] [address] * Magnesium (11/01/2024 6:09 PM EDT) Magnesium, Plasma 2.0 1.9 - 2.4 mg/dL 11/01/2024 6:53 PM EDT [facility] Blood Venous blood specimen / Unknown Venipuncture / Unknown 11/01/2024 6:09 PM EDT 11/01/2024 6:22 PM EDT us Micheal Espinoza MD LAB BLOOD ORDERABLES Final Result [facility] [address] [place] [address] * (ABNORMAL) Comprehensive metabolic panel (11/01/2024 6:09 PM EDT) Glucose, Plasma 113(H) 74 - 99 mg/dL 11/01/2024 6:53 PM EDT [facility] BUN, Plasma 14 8 - 23 mg/dL 11/01/2024 6:53 PM EDT [facility] Creatinine, Plasma 0.78 0.60 - 1.10 mg/dL 11/01/2024 6:53 PM EDT [facility] BUN/Creatinine Ratio 18 11/01/2024 6:53 PM EDT [facility] Sodium, Plasma 142 136 - 145 mmol/L 11/01/2024 6:53 PM EDT [facility] Potassium, Plasma 4.4 3.6 - 4.9 mmol/L 11/01/2024 6:53 PM EDT [facility] Chloride, Plasma 109(H) 97 - 107 mmol/L 11/01/2024 6:53 PM EDT [facility] CO2, Plasma 22 22 - 29 mmol/L 11/01/2024 6:53 PM EDT [facility] Anion Gap 11 6 - 16 mmol/L 11/01/2024 6:53 PM EDT [facility] Total Calcium, Plasma 8.7(L) 8.9 - 10.2 mg/dL 11/01/2024 6:53 PM EDT [facility] Total Protein 6.2(L) 6.3 - 7.9 g/dL 11/01/2024 6:53 PM EDT [facility] Albumin, Plasma 3.2(L) 3.5 - 5.2 g/dL 11/01/2024 6:53 PM EDT [facility] AST, Plasma 72(H) 10 - 35 U/L 11/01/2024 6:53 PM EDT [facility] ALT, Plasma 84(H) 10 - 35 U/L 11/01/2024 6:53 PM EDT [facility] Alkaline Phosphatase, Plasma 194(H) 46 - 142 U/L 11/01/2024 6:53 PM EDT [facility] Total Bilirubin, Plasma 0.7 0.2 - 1.1 mg/dL 11/01/2024 6:53 PM EDT [facility] eGFRcr 83.9 mL/min/1.7 3m*2 11/01/2024 6:53 PM EDT [facility] Comment:Reported eGFRcr in m L/min/1.73m2 is based the CKD-EPI 2020 equation that does not use a race coefficient. Blood Venous blood specimen / Unknown Venipuncture / Unknown 11/01/2024 6:09 PM EDT 11/01/2024 6:22 PM EDT us Micheal Espinoza MD LAB BLOOD ORDERABLES Final Result [facility] [address] [place] [address] * (ABNORMAL) CBC and differential (11/01/2024 6:09 PM EDT) WBC Count 9.73 3.70 - 10.30 10*3/uL LAB HEMATOLOGY METHOD 11/01/2024 6:37 PM EDT [facility] RBC Count 3.48(L) 3.90 - 5.20 10*6/uL LAB HEMATOLOGY METHOD 11/01/2024 6:37 PM EDT [facility] HGB 9.4(L) 11.2 - 15.7 g/dL LAB HEMATOLOGY METHOD 11/01/2024 6:37 PM EDT [facility] HCT 30.8(L) 34.0 - 45.0 % LAB HEMATOLOGY METHOD 11/01/2024 6:37 PM EDT [facility] Platelet Count 198 155 - 369 10*3/uL LAB HEMATOLOGY METHOD 11/01/2024 6:37 PM EDT [facility] MCV 89 79 - 98 fL LAB HEMATOLOGY METHOD 11/01/2024 6:37 PM EDT [facility] MCH 27.0 26.0 - 32.0 pg LAB HEMATOLOGY METHOD 11/01/2024 6:37 PM EDT [facility] MCHC 30.5(L) 30.7 - 35.5 g/dL LAB HEMATOLOGY METHOD 11/01/2024 6:37 PM EDT [facility] RDW 13.3 11.5 - 14.5 % LAB HEMATOLOGY METHOD 11/01/2024 6:37 PM EDT [facility] MPV 10.9 8.8 - 12.5 fL LAB HEMATOLOGY METHOD 11/01/2024 6:37 PM EDT [facility] nRBC 0.0 <=0.0 per 100 WBCs LAB HEMATOLOGY METHOD 11/01/2024 6:37 PM EDT [facility] Differential Type Automated LAB HEMATOLOGY METHOD 11/01/2024 6:37 PM EDT [facility] Neutrophils % 94 % LAB HEMATOLOGY METHOD 11/01/2024 6:37 PM EDT [facility] Lymphocytes % 4 % LAB HEMATOLOGY METHOD 11/01/2024 6:37 PM EDT [facility] Monocytes % 1 % LAB HEMATOLOGY METHOD 11/01/2024 6:37 PM EDT [facility] Eosinophils % 0 % LAB HEMATOLOGY METHOD 11/01/2024 6:37 PM EDT [facility] Basophils % 0 % LAB HEMATOLOGY METHOD 11/01/2024 6:37 PM EDT [facility] Immature Granulocytes % 1 % LAB HEMATOLOGY METHOD 11/01/2024 6:37 PM EDT [facility] Neutrophils Absolute 9.13(H) 1.60 - 6.10 10*3/uL LAB HEMATOLOGY METHOD 11/01/2024 6:37 PM EDT [facility] Lymphocytes Absolute 0.40(L) 1.20 - 3.90 10*3/uL LAB HEMATOLOGY METHOD 11/01/2024 6:37 PM EDT [facility] Monocytes Absolute 0.12(L) 0.30 - 0.90 10*3/uL LAB HEMATOLOGY METHOD 11/01/2024 6:37 PM EDT [facility] Eosinophils Absolute 0.01 0.00 - 0.50 10*3/uL LAB HEMATOLOGY METHOD 11/01/2024 6:37 PM EDT [facility] Basophils Absolute 0.01 0.00 - 0.10 10*3/uL LAB HEMATOLOGY METHOD 11/01/2024 6:37 PM EDT [facility] Immature Granulocytes Absolute 0.06 0.00 - 0.06 10*3/uL LAB HEMATOLOGY METHOD 11/01/2024 6:37 PM EDT [facility] Blood Venous blood specimen / Unknown Venipuncture / Unknown 11/01/2024 6:09 PM EDT 11/01/2024 6:27 PM EDT Narrative [facility] - 11/01/2024 6:37 PM EDT Therapeutic decision making should be based on absolute values, rather than percentages. Micheal Espinoza MD LAB BLOOD ORDERABLES Final Result [facility] [address] [place] [address] * XR Chest 1 View (11/01/2024 12:15 [...] 7.31 - 7.42 11/01/2024 12:12 PM EDT [facility] pCO2, Arterial 43 35 - 48 mm Hg 11/01/2024 12:12 PM EDT [facility] pO2, Arterial 114 >80 mm Hg 11/01/2024 12:12 PM EDT [facility] SO2, Arterial 100(H) 94 - 98 % 11/01/2024 12:12 PM EDT [facility] FIO2 70.0 % 11/01/2024 12:12 PM EDT [facility] Base Excess, Arterial 2.4 -2 - 3 mmol/L 11/01/2024 12:12 PM EDT [facility] HCO3, Arterial 27.3(H) 22 - 26 mmol/L 11/01/2024 12:12 PM EDT [facility] Total Hemoglobin, Arterial, Whole Blood 9.0(L) 11.2 - 15.7 g/dL 11/01/2024 12:12 PM EDT [facility] Hematocrit, Arterial 27.0(L) 34.0 - 45.0 % 11/01/2024 12:12 PM EDT [facility] Sodium, Arterial 142 136 - 145 mmol/L 11/01/2024 12:12 PM EDT [facility] Potassium, Arterial 3.9 3.6 - 4.9 mmol/L 11/01/2024 12:12 PM EDT [facility] Chloride, Whole Blood 110(H) 97 - 107 mmol/L 11/01/2024 12:12 PM EDT [facility] Glucose, Arterial 91 74 - 99 mg/dL 11/01/2024 12:12 PM EDT [facility] Ionized Calcium, Arterial 4.9 4.6 - 5.1 mg/dL 11/01/2024 12:12 PM EDT [facility] Lactate, Arterial 0.7 0.5 - 1.6 mmol/L 11/01/2024 12:12 PM EDT [facility] Body Temperature 37.2 Celsius 11/01/2024 12:12 PM EDT [facility] pH, Temp Corrected, Arterial 7.41 7.31 - 7.42 11/01/2024 12:12 PM EDT [facility] pCO2, Temp Corrected, Arterial 43 35 - 48 mm Hg 11/01/2024 12:12 PM EDT [facility] pO2, Temp Corrected, Arterial 115 >80 mm Hg 11/01/2024 12:12 PM EDT [facility] Windows System Admin ID Edwin Sommers 11/01/2024 12:12 PM EDT [facility] Blood, Arterial Whole blood specimen / Unknown 11/01/2024 12:10 PM EDT 11/01/2024 12:12 PM EDT us Micheal Espinoza MD LAB POINT OF CARE TEST DOCKED DEVICE UNSOLICITED RESULTS Final Result [facility] [address] [place] [address] * XR Wrist Right 3+ Views (11/01/2024 [...] IMG XR PROCEDURES Final Re sult * IN CRITICAL CARE, E/M 30-74 MINUTES (11/01/2024 7:22 [...] - 4.5 mg/dL 11/01/2024 12:42 AM EDT [facility] Blood Venous blood specimen / Unknown Venipuncture / Unknown 10/31/2024 11:49 PM EDT 10/31/2024 11:59 PM EDT Erica Day Jonathan [employer] LAB BLOOD ORDERABLES Final Result [facility] [address] [place] [address] * Magnesium, Plasma (10/31/2024 11:49 PM EDT) Magnesium, Plasma 1.9 1.9 - 2.4 mg/dL 11/01/2024 12:42 AM EDT [facility] Blood Venous blood specimen / Unknown Venipuncture / Unknown 10/31/2024 11:49 PM EDT 10/31/2024 11:59 PM EDT Atticous Day GarciaCastillo [employer] LAB BLOOD ORDERABLES Final Result [facility] [facility] [address] [place] [address] * Ionized calcium, whole blood (10/31/2024 11:49 PM EDT) Ionized Calcium, Whole Blood 4.6 4.6 - 5.1 mg/dL LAB HEMATOLOGY METHOD 11/01/2024 12:01 AM EDT [facility] Blood Venous blood specimen / Unknown Venipuncture / Unknown 10/31/2024 11:49 PM EDT 10/31/2024 11:59 PM EDT Erica Castillo APRN LAB BLOOD ORDERABLES Final Result [facility] [address] [place] [address] * (ABNORMAL) CBC W/O Differential (10/31/2024 11:49 PM EDT) WBC Count 9.34 3.70 - 10.30 10*3/uL LAB HEMATOLOGY METHOD 11/01/2024 12:32 AM EDT [facility] RBC Count 2.97(L) 3.90 - 5.20 10*6/uL LAB HEMATOLOGY METHOD 11/01/2024 12:32 AM EDT [facility] HGB 8.1(L) 11.2 - 15.7 g/dL LAB HEMATOLOGY METHOD 11/01/2024 12:32 AM EDT [facility] HCT 26.5(L) 34.0 - 45.0 % LAB HEMATOLOGY METHOD 11/01/2024 12:32 AM EDT [facility] Platelet Count 179 155 - 369 10*3/uL LAB HEMATOLOGY METHOD 11/01/2024 12:32 AM EDT [facility] MCV 89 79 - 98 fL LAB HEMATOLOGY METHOD 11/01/2024 12:32 AM EDT [facility] MCH 27.3 26.0 - 32.0 pg LAB HEMATOLOGY METHOD 11/01/2024 12:32 AM EDT [facility] MCHC 30.6(L) 30.7 - 35.5 g/dL LAB HEMATOLOGY METHOD 11/01/2024 12:32 AM EDT [facility] RDW 13.2 11.5 - 14.5 % LAB HEMATOLOGY METHOD 11/01/2024 12:32 AM EDT [facility] MPV 10.7 8.8 - 12.5 fL LAB HEMATOLOGY METHOD 11/01/2024 12:32 AM EDT [facility] nRBC 0.0 <=0.0 per 100 WBCs LAB HEMATOLOGY METHOD 11/01/2024 12:32 AM EDT [facility] Blood Venous blood specimen / Unknown Venipuncture / Unknown 10/31/2024 11:49 PM EDT 10/31/2024 11:59 PM EDT Erica Castillo APRN LAB BLOOD ORDERABLES Final Result [facility] [address] [place] [address] * (ABNORMAL) Basic Metabolic Panel, Plasma (10/31/2024 11:49 PM EDT) Glucose, Plasma 133(H) 74 - 99 mg/dL 11/01/2024 12:42 AM EDT [facility] BUN, Plasma 16 8 - 23 mg/dL 11/01/2024 12:42 AM EDT [facility] Creatinine, Plasma 0.80 0.60 - 1.10 mg/dL 11/01/2024 12:42 AM EDT [facility] BUN/Creatinine Ratio 20 11/01/2024 12:42 AM EDT [facility] Sodium, Plasma 143 136 - 145 mmol/L 11/01/2024 12:42 AM EDT [facility] Potassium, Plasma 4.0 3.6 - 4.9 mmol/L 11/01/2024 12:42 AM EDT [facility] Chloride, Plasma 111(H) 97 - 107 mmol/L 11/01/2024 12:42 AM EDT [facility] CO2, Plasma 22 22 - 29 mmol/L 11/01/2024 12:42 AM EDT [facility] Anion Gap 10 6 - 16 mmol/L 11/01/2024 12:42 AM EDT [facility] Total Calcium, Plasma 7.7(L) 8.9 - 10.2 mg/dL 11/01/2024 12:42 AM EDT [facility] eGFRcr 81.4 mL/min/1.7 3m*2 11/01/2024 12:42 AM EDT [facility] Comment:Reported eGFRcr in m L/min/1.73m2 is based the CKD-EPI 2020 equation that does not use a race coefficient. Blood Venous blood specimen / Unknown Venipuncture / Unknown 10/31/2024 11:49 PM EDT 10/31/2024 11:59 PM EDT Erica Castillo [employer] LAB BLOOD ORDERABLES Final Result [facility] [address] [place] [address] * IN CRITICAL CARE, E/M 30-74 MINUTES (10/31/2024 10:48 [...] Plan extubation today. No significant infectious concerns. Micheal Espinoza MD IN CLINIC/BEDSIDE ORDERABL ES Final Result * Triglycerides (10/31/2024 6:56 AM EDT) Triglycerides, Plasma 82 <150 mg/dL 10/31/2024 7:42 AM EDT [facility] Comment: Triglyceride Reference Range (age >17 years): Desirable: <150 mg/dL Borderline high: 150 to 199 mg/dL High: 200 to 499 mg/dL Very high: >499 mg/dL Increased risk of pancreatitis: >1000 mg/dL Fasting greater than or equal to 12 hours? No 10/31/2024 7:42 AM EDT [facility] Blood Venous blood specimen / Unknown Venipuncture / Unknown 10/31/2024 6:56 AM EDT 10/31/2024 7:09 AM EDT us Katharine Savage MD LAB BLOOD ORDERABLES Final Resul t [facility] [address] [place] [address] * (ABNORMAL) Blood gas, arterial (10/30/2024 11:11 PM EDT) pH, Arterial 7.41 7.31 - 7.42 LAB HEMATOLOGY METHOD 10/30/2024 11:19 PM EDT [facility] pCO2, Arterial 38 35 - 48 mmHg LAB HEMATOLOGY METHOD 10/30/2024 11:19 PM EDT [facility] pO2, Arterial 192 >80 mmHg LAB HEMATOLOGY METHOD 10/30/2024 11:19 PM EDT [facility] SO2, Measured, Arterial 100(H) 94 - 98 % LAB HEMATOLOGY METHOD 10/30/2024 11:19 PM EDT [facility] Base Excess, Arterial -0.2 -2.0 - 3.0 mmol/L LAB HEMATOLOGY METHOD 10/30/2024 11:19 PM EDT [facility] Bicarbonate, Calculated, Arterial 24 22 - 26 mmol/L LAB HEMATOLOGY METHOD 10/30/2024 11:19 PM EDT [facility] Hematocrit, Whole Blood 27.5(L) 34.0 - 45.0 % LAB HEMATOLOGY METHOD 10/30/2024 11:19 PM EDT [facility] Sodium, Whole Blood 140 136 - 145 mmol/L LAB HEMATOLOGY METHOD 10/30/2024 11:19 PM EDT [facility] Potassium, Whole Blood 4.0 3.6 - 4.9 mmol/L LAB HEMATOLOGY METHOD 10/30/2024 11:19 PM EDT [facility] Chloride, Whole Blood 110(H) 97 - 107 mmol/L LAB HEMATOLOGY METHOD 10/30/2024 11:19 PM EDT [facility] Glucose, Whole Blood 138(H) 74 - 99 mg/dL LAB HEMATOLOGY METHOD 10/30/2024 11:19 PM EDT [facility] Ionized Calcium, Whole Blood 4.4(L) 4.6 - 5.1 mg/dL LAB HEMATOLOGY METHOD 10/30/2024 11:19 PM EDT [facility] Lactate, Arterial, Whole Blood 1.5 0.5 - 1.6 mmol/L LAB HEMATOLOGY METHOD 10/30/2024 11:19 PM EDT [facility] Blood Arterial blood specimen / Unknown Arterial Puncture / Unknown 10/30/2024 11:11 PM EDT 10/30/2024 11:17 PM EDT Isabelle Soto MD LAB BLOOD ORDERABLES Evelyn l Result Performing Organization Address City/[facility]/ZIP Co de Phone Number [facility] [address] [place] [address] * Phosphorus, Plasma (10/30/2024 11:11 PM EDT) Phosphorus, Plasma 2.9 2.5 - 4.5 mg/dL 10/30/2024 11:46 PM EDT [facility] Blood Venous blood specimen / Unknown Venipuncture / Unknown 10/30/2024 11:11 PM EDT 10/30/2024 11:17 PM EDT Erica Castillo APRN LAB BLOOD ORDERABLES Final Result [facility] [address] [place] [address] * (ABNORMAL) Magnesium, Plasma (10/30/2024 11:11 PM EDT) Magnesium, Plasma 1.8(L) 1.9 - 2.4 mg/dL 10/30/2024 11:46 PM EDT [facility] Blood Venous blood specimen / Unknown Venipuncture / Unknown 10/30/2024 11:11 PM EDT 10/30/2024 11:17 PM EDT Erica Castillo [employer] LAB BLOOD ORDERABLES Final Result [facility] [address] [place] [address] * Ionized calcium, whole blood (10/30/2024 11:11 PM EDT) Pathologist [facility] [place] Ionized Calcium, Whole Blood 4.6 4.6 - 5.1 mg/dL LAB HEMATOLOGY METHOD 10/30/2024 11:19 PM EDT [facility] Blood Venous blood specimen / Unknown Venipuncture / Unknown 10/30/2024 11:11 PM EDT 10/30/2024 11:17 PM EDT us Erica Castillo APRN LAB BLOOD ORDERABLES Final Result Performing Organization Address [facility]/ZIP Co de Phone Number [facility] [address] [place] [address] * (ABNORMAL) CBC W/O Differential (10/30/2024 11:11 PM EDT) Pathologist [facility] [place] WBC Count 9.72 3.70 - 10.30 10*3/uL LAB HEMATOLOGY METHOD 10/30/2024 11:24 PM EDT [facility] RBC Count 3.36(L) 3.90 - 5.20 10*6/uL LAB HEMATOLOGY METHOD 10/30/2024 11:24 PM EDT [facility] HGB 9.2(L) 11.2 - 15.7 g/dL LAB HEMATOLOGY METHOD 10/30/2024 11:24 PM EDT [facility] HCT 29.8(L) 34.0 - 45.0 % LAB HEMATOLOGY METHOD 10/30/2024 11:24 PM EDT [facility] Platelet Count 250 155 - 369 10*3/uL LAB HEMATOLOGY METHOD 10/30/2024 11:24 PM EDT [facility] MCV 89 79 - 98 fL LAB HEMATOLOGY METHOD 10/30/2024 11:24 PM EDT [facility] MCH 27.4 26.0 - 32.0 pg LAB HEMATOLOGY METHOD 10/30/2024 11:24 PM EDT [facility] MCHC 30.9 30.7 - 35.5 g/dL LAB HEMATOLOGY METHOD 10/30/2024 11:24 PM EDT [facility] RDW 13.1 11.5 - 14.5 % LAB HEMATOLOGY METHOD 10/30/2024 11:24 PM EDT [facility] MPV 10.1 8.8 - 12.5 fL LAB HEMATOLOGY METHOD 10/30/2024 11:24 PM EDT [facility] nRBC 0.0 <=0.0 per 100 WBCs LAB HEMATOLOGY METHOD 10/30/2024 11:24 PM EDT [facility] Blood Venous blood specimen / Unknown Venipuncture / Unknown 10/30/2024 11:11 PM EDT 10/30/2024 11:17 PM EDT Erica Castillo APRN LAB BLOOD ORDERABLES Final Result [facility] [address] [place] [address] * (ABNORMAL) Basic Metabolic Panel, Plasma (10/30/2024 11:11 PM EDT) Glucose, Plasma 145(H) 74 - 99 mg/dL 10/30/2024 11:46 PM EDT [facility] BUN, Plasma 17 8 - 23 mg/dL 10/30/2024 11:46 PM EDT [facility] Creatinine, Plasma 0.99 0.60 - 1.10 mg/dL 10/30/2024 11:46 PM EDT [facility] BUN/Creatinine Ratio 17 10/30/2024 11:46 PM EDT [facility] Sodium, Plasma 141 136 - 145 mmol/L 10/30/2024 11:46 PM EDT [facility] Potassium, Plasma 4.3 3.6 - 4.9 mmol/L 10/30/2024 11:46 PM EDT [facility] Chloride, Plasma 110(H) 97 - 107 mmol/L 10/30/2024 11:46 PM EDT [facility] CO2, Plasma 22 22 - 29 mmol/L 10/30/2024 11:46 PM EDT [facility] Anion Gap 9 6 - 16 mmol/L 10/30/2024 11:46 PM EDT [facility] Total Calcium, Plasma 8.2(L) 8.9 - 10.2 mg/dL 10/30/2024 11:46 PM EDT [facility] eGFRcr 63.0 mL/min/1.7 3m*2 10/30/2024 11:46 PM EDT [facility] Comment:Reported eGFRcr in m L/min/1.73m2 is based the CKD-EPI 2020 equation that does not use a race coefficient. Blood Venous blood specimen / Unknown Venipuncture / Unknown 10/30/2024 11:11 PM EDT 10/30/2024 11:17 PM EDT us Erica Castillo APRN LAB BLOOD ORDERABLES Final Result Performing Organization Address City/[facility]/ZIP Co de Phone Number [facility] [address] [place] [id number] * (ABNORMAL) POCT glucose meter (10/30/2024 6:23 [...] for testing. Comment 10/30/2024 6:24 PM EDT [facility] Windows System Admin ID Earline Ridley 10/30/2024 6:24 PM EDT [facility] Device ID [id number] 10/30/2024 6:24 PM EDT [facility] Specimen Type POC Arterial 10/30/2024 6:24 PM EDT [facility] Blood Arterial blood specimen / Unknown 10/30/2024 6:23 PM EDT 10/30/2024 6:24 PM EDT Isabelle Soto MD LAB POINT OF CARE TEST DOCKED DEVICE UNSOLICITED RESULTS Final Result Performing Organization Address City/[facility]/ZIP Co de Phone Number [facility] [address] [place] [address] * XR Chest 1 View (10/30/2024 4:11 [...] IMG XR PROCEDURES Final R esult * IN INSERT NON-TUNNEL CV CATH, HC INSERT NON-TUNNEL [...] were discussed: yes Alternatives discussed: No treatment [place] protocol: Imaging studies available: yes Site/side marked: [...] Castillo APRN LAB URINE ORDERABLES Final Result [facility] [address] [place] [address] * (ABNORMAL) Urinalysis with reflex microscopic (Culture NOT Included) (10/30/2024 2:11 PM EDT) Color, Urine Dark Yellow LAB URINALYSIS - AUTOMATED METHOD 10/30/2024 2:36 PM EDT [facility] Clarity, Urine Cloudy LAB URINALYSIS - AUTOMATED METHOD 10/30/2024 2:36 PM EDT [facility] Spec [place], Urine >1.030(H) 1.005 - 1.030 LAB URINALYSIS - AUTOMATED METHOD 10/30/2024 2:36 PM EDT [facility] pH, Urine 5.5 5.0 - 8.0 LAB URINALYSIS - AUTOMATED METHOD 10/30/2024 2:36 PM EDT [facility] Protein, Urine 100(A) Negative mg/dL LAB URINALYSIS - AUTOMATED METHOD 10/30/2024 2:36 PM EDT [facility] Glucose, Urine Negative Negative mg/dL LAB URINALYSIS - AUTOMATED METHOD 10/30/2024 2:36 PM EDT [facility] Ketones, Urine Trace(A) Negative mg/dL LAB URINALYSIS - AUTOMATED METHOD 10/30/2024 2:36 PM EDT [facility] Blood, Urine Large(A) Negative LAB URINALYSIS - AUTOMATED METHOD 10/30/2024 2:36 PM EDT [facility] Bilirubin, Urine Negative Negative LAB URINALYSIS - AUTOMATED METHOD 10/30/2024 2:36 PM EDT [facility] Urobilinogen, Urine 1.0 0.2 to 1.0 mg/dL LAB URINALYSIS - AUTOMATED METHOD 10/30/2024 2:36 PM EDT [facility] Leukocytes, Urine Trace(A) Negative LAB URINALYSIS - AUTOMATED METHOD 10/30/2024 2:36 PM EDT [facility] Nitrite, Urine Negative Negative LAB URINALYSIS - AUTOMATED METHOD 10/30/2024 2:36 PM EDT [facility] RBC, Urine >50(A) 0 to 3 /HPF LAB URINALYSIS - AUTOMATED METHOD 10/30/2024 2:36 PM EDT [facility] WBC, Urine 6 - 10(A) 0 to 5 /HPF LAB URINALYSIS - AUTOMATED METHOD 10/30/2024 2:36 PM EDT [facility] Squamous Epithelial Cells 0 - 2 0 to 5 /HPF LAB URINALYSIS - AUTOMATED METHOD 10/30/2024 2:36 PM EDT [facility] Hyaline Casts 0 - 2 0 to 5 /LPF LAB URINALYSIS - AUTOMATED METHOD 10/30/2024 2:36 PM EDT [facility] Bacteria, Urine Negative Negative LAB URINALYSIS - AUTOMATED METHOD 10/30/2024 2:36 PM EDT [facility] Urine Urine specimen from urinary conduit / Unknown Non-blood Collection / Unknown 10/30/2024 2:11 PM EDT 10/30/2024 2:16 PM EDT Erica Garciaers [employer] LAB URINE ORDERABLES Final Result Performing Organization Address [facility]/ZIP Co de Phone Number [facility] [address] [place] [address] * (ABNORMAL) Troponin T, High Sensitivity, 2 Hour, Plasma (10/30/2024 1:24 PM EDT) Troponin T, High Sensitivity, 2 Hour 418(H) <14 ng/L 10/30/2024 1:56 PM EDT [facility] Troponin Delta Interpretation Not Calculated 10/30/2024 1:56 PM EDT [facility] Comment:Specimen not collect ed within acceptable timeframe. Delta will not be calculated. Blood Arterial blood specimen / Unknown Arterial Puncture / Unknown 10/30/2024 1:24 PM EDT 10/30/2024 1:28 PM EDT Erica Castillo [employer] LAB BLOOD ORDERABLES Final Result Performing Organization Address [facility] [place] [address] * CT Head wo IV Contrast (10/30/2024 [...] ECG Atrial Rate 85 BPM MUSE ECG IN Interval 146 ms MUSE ECG QRSD Interval 84 ms MUSE ECG QT Interval 394 ms MUSE ECG QTC Interval 468 ms MUSE ECG P [place] 82 degrees MUSE ECG R [place] 51 degrees MUSE ECG T Wave [place] 184 degrees MUSE ECG Diagnosis Poor data [...] MUSE ECG Diagnosis Confirmed by Tristan Cooper ([id number]) on 10/30/2024 12:08:55 PM MUSE ECG 10/30/2024 11:3 9 AM EDT 10/30/2024 12:08 PM EDT Erica Castillo APRN ECG ORDERABLES Final Resu lt MUSE ECG * (ABNORMAL) Troponin T, High Sensitivity, 0 Hour Plasma, Reflex to 2 Hour (10/30/2024 11:25 AM EDT) Troponin T, High Sensitivity, 0 Hour 179(H) <14 ng/L 10/30/2024 12:01 PM EDT [facility] Blood Arterial blood specimen / Unknown Arterial Puncture / Unknown 10/30/2024 11:25 AM EDT 10/30/2024 11:32 AM EDT Erica Garciaers [employer] LAB BLOOD ORDERABLES [place] [address] * Phosphorus (10/30/2024 11:25 AM EDT) Pathologist [facility] [place] Phosphorus, Plasma 3.1 2.5 - 4.5 mg/dL 10/30/2024 12:[address] [facility] Blood Arterial blood specimen / Unknown Arterial Puncture / Unknown 10/30/2024 11:25 AM EDT 10/30/2024 11:32 AM EDT Atticous Day Castillo [employer] LAB BLOOD ORDERABLES Final Result Performing Organization Address City/[facility]/ZIP [place] [address] * (ABNORMAL) Magnesium, Plasma (10/30/2024 11:25 AM EDT) [facility] Magnesium, Plasma 1.8(L) 1.9 - 2.4 mg/dL 10/30/2024 12:01 PM EDT [facility] Blood Arterial blood specimen / Unknown Arterial Puncture / Unknown 10/30/2024 11:25 AM EDT 10/30/2024 11:32 AM EDT Atticous S Castillo [employer] LAB BLOOD ORDERABLES Final Result Performing Organization Address [facility]/ZIP [place] [address] * Ionized calcium, whole blood (10/30/2024 11:25 AM EDT) [facility] Ionized Calcium, Whole Blood 4.7 4.6 - 5.1 mg/dL LAB HEMATOLOGY METHOD 10/30/2024 11:37 AM EDT [facility] Blood Arterial blood specimen / Unknown Arterial Puncture / Unknown 10/30/2024 11:25 AM EDT 10/30/2024 11:33 AM EDT Erica Castillo [employer] LAB BLOOD ORDERABLES Final Result [facility] [address] [place] [address] * (ABNORMAL) Basic Metabolic Panel, Plasma (10/30/2024 11:25 AM EDT) Glucose, Plasma 124(H) 74 - 99 mg/dL 10/30/2024 12:01 PM EDT [facility] BUN, Plasma 18 8 - 23 mg/dL 10/30/2024 12:01 PM EDT [facility] Creatinine, Plasma 1.12(H) 0.60 - 1.10 mg/dL 10/30/2024 12:01 PM EDT [facility] BUN/Creatinine Ratio 16 10/30/2024 12:01 PM EDT [facility] Sodium, Plasma 144 136 - 145 mmol/L 10/30/2024 12:01 PM EDT [facility] Potassium, Plasma 3.7 3.6 - 4.9 mmol/L 10/30/2024 12:01 PM EDT [facility] Chloride, Plasma 107 97 - 107 mmol/L 10/30/2024 12:01 PM EDT [facility] CO2, Plasma 23 22 - 29 mmol/L 10/30/2024 12:01 PM EDT [facility] Anion Gap 14 6 - 16 mmol/L 10/30/2024 12:01 PM EDT [facility] Total Calcium, Plasma 8.6(L) 8.9 - 10.2 mg/dL 10/30/2024 12:01 PM EDT [facility] eGFRcr 54.3 mL/min/1.7 3m*2 10/30/2024 12:01 PM EDT [facility] Comment:Reported eGFRcr in m L/min/1.73m2 is based the CKD-EPI 2020 equation that does not use a race coefficient. Blood Arterial blood specimen / Unknown Arterial Puncture / Unknown 10/30/2024 11:25 AM EDT 10/30/2024 11:32 AM EDT Erica Castillo [employer] LAB BLOOD ORDERABLES Final Result [facility] [address] [place] [address] * (ABNORMAL) CBC W/O Differential (10/30/2024 11:25 AM EDT) WBC Count 9.31 3.70 - 10.30 10*3/uL LAB HEMATOLOGY METHOD 10/30/2024 11:39 AM EDT [facility] RBC Count 3.82(L) 3.90 - 5.20 10*6/uL LAB HEMATOLOGY METHOD 10/30/2024 11:39 AM EDT [facility] HGB 10.4(L) 11.2 - 15.7 g/dL LAB HEMATOLOGY METHOD 10/30/2024 11:39 AM EDT [facility] HCT 33.5(L) 34.0 - 45.0 % LAB HEMATOLOGY METHOD 10/30/2024 11:39 AM EDT [facility] Platelet Count 364 155 - 369 10*3/uL LAB HEMATOLOGY METHOD 10/30/2024 11:39 AM EDT [facility] MCV 88 79 - 98 fL LAB HEMATOLOGY METHOD 10/30/2024 11:39 AM EDT [facility] MCH 27.2 26.0 - 32.0 pg LAB HEMATOLOGY METHOD 10/30/2024 11:39 AM EDT [facility] MCHC 31.0 30.7 - 35.5 g/dL LAB HEMATOLOGY METHOD 10/30/2024 11:39 AM EDT [facility] RDW 13.0 11.5 - 14.5 % LAB HEMATOLOGY METHOD 10/30/2024 11:39 AM EDT [facility] MPV 10.0 8.8 - 12.5 fL LAB HEMATOLOGY METHOD 10/30/2024 11:39 AM EDT [facility] nRBC 0.0 <=0.0 per 100 WBCs LAB HEMATOLOGY METHOD 10/30/2024 11:39 AM EDT [facility] Blood Arterial blood specimen / Unknown Arterial Puncture / Unknown 10/30/2024 11:25 AM EDT 10/30/2024 11:32 AM EDT Erica Castillo [employer] LAB BLOOD ORDERABLES Final Result [facility] [address] [place] [address] * (ABNORMAL) Blood gas panel, arterial (10/30/2024 11:25 AM EDT) pH, Arterial 7.33 7.31 - 7.42 LAB HEMATOLOGY METHOD 10/30/2024 11:36 AM EDT [facility] pCO2, Arterial 49(H) 35 - 48 mmHg LAB HEMATOLOGY METHOD 10/30/2024 11:36 AM EDT [facility] pO2, Arterial 236 >80 mmHg LAB HEMATOLOGY METHOD 10/30/2024 11:36 AM EDT [facility] SO2, Measured, Arterial 100(H) 94 - 98 % LAB HEMATOLOGY METHOD 10/30/2024 11:36 AM EDT [facility] Base Excess, Arterial -0.4 -2.0 - 3.0 mmol/L LAB HEMATOLOGY METHOD 10/30/2024 11:36 AM EDT [facility] Bicarbonate, Calculated, Arterial 26 22 - 26 mmol/L LAB HEMATOLOGY METHOD 10/30/2024 11:36 AM EDT [facility] Hematocrit, Whole Blood 31.4(L) 34.0 - 45.0 % LAB HEMATOLOGY METHOD 10/30/2024 11:36 AM EDT [facility] Sodium, Whole Blood 143 136 - 145 mmol/L LAB HEMATOLOGY METHOD 10/30/2024 11:36 AM EDT [facility] Potassium, Whole Blood 3.5(L) 3.6 - 4.9 mmol/L LAB HEMATOLOGY METHOD 10/30/2024 11:36 AM EDT [facility] Chloride, Whole Blood 107 97 - 107 mmol/L LAB HEMATOLOGY METHOD 10/30/2024 11:36 AM EDT [facility] Glucose, Whole Blood 121(H) 74 - 99 mg/dL LAB HEMATOLOGY METHOD 10/30/2024 11:36 AM EDT [facility] Ionized Calcium, Whole Blood 4.7 4.6 - 5.1 mg/dL LAB HEMATOLOGY METHOD 10/30/2024 11:36 AM EDT [facility] Lactate, Arterial, Whole Blood 2.2(H) 0.5 - 1.6 mmol/L LAB HEMATOLOGY METHOD 10/30/2024 11:36 AM EDT [facility] Blood Arterial blood specimen / Unknown Arterial Puncture / Unknown 10/30/2024 11:25 AM EDT 10/30/2024 11:33 AM EDT us Erica Castillo APRN LAB BLOOD ORDERABLES Final Result Performing Organization Address [facility]/ZIP Co de Phone Number [facility] [address] [place] [address] * Light Blue Top (10/30/2024 11:20 AM EDT) Extra Hold for add-ons 10/30/2024 2:02 PM EDT [facility] Comment:Auto resulted. Blood Venous blood specimen / Unknown 10/30/2024 11:20 AM EDT 10/30/2024 11:35 AM EDT us Katharine Savage MD LAB BLOOD ORDERABLES Final Resul t Performing Organization Address [facility] Co de Phone Number [facility] [address] [place] [address] * Transfusion Reaction, Pathologist Interpretation (10/30/2024 10:04 [...] BLOOD BANK TEST ORDERA BLES Final Result BLOOD BANK [address] [place] [address], * (ABNORMAL) TEG Global Hemostasis with Lysis (10/30/2024 10:04 AM EDT) R, Lysis 3.3(L) 4.6 - 9.1 min 10/30/2024 11:23 AM EDT [facility] MA, Rapid, Lysis 69.0 52.0 - 70.0 mm 10/30/2024 11:23 AM EDT [facility] MA, Fibrinogen, Lysis 28.0 15.0 - 32.0 mm 10/30/2024 11:23 AM EDT [facility] LY30 0.1 0.0 - 2.6 % 10/30/2024 11:23 AM EDT [facility] Blood Arterial blood specimen / Unknown Arterial Puncture / Unknown 10/30/2024 10:04 AM EDT 10/30/2024 10:17 AM EDT us Crystal S Castillo [employer] [facility] BLOOD ORDERABLES Final Result [facility] [address] [place] [address] * Transfusion Reaction Investigation (10/30/2024 10:04 AM EDT) Pre-Transfusion Hemolysis No Visible Hemolysis 10/30/2024 9:10 AM EDT BLOOD BANK Post-Transfusion Hemolysis No Visible Hemolysis 10/30/2024 9:10 AM EDT BLOOD BANK Post Specimen ABO/Rh O Positive 10/30/2024 9:10 AM EDT BLOOD BANK LUCIANO, Polyspecific Negative 025 9:10 AM EDT BLOOD BANK Clerical Check Clerical Check OK 10/30/2024 9:10 AM EDT BLOOD BANK RN Clerical Check 025 9:10 AM EDT BLOOD BANK Unit Number & Component Type See Comment 10/30/2024 9:10 AM EDT BLOOD BANK Comment:2 [employer]UKOR[employer]UCED PLATE LETS GIVEN- [id number]; [id number] Donor Unit Culture Not Indicated 10/30/2024 9:10 [...] EDT 10/30/2024 10:30 AM EDT Erica Castillo [employer] [facility] BLOOD BANK TEST ORDERA BLES Final Result BLOOD BANK [address] [place] [address], * IN CRITICAL CARE, ADDL 30 MIN, IN CRITICAL CARE, ADDL 30 MIN (10/30/2024 9:49 [...] hour neuro exams. Isabelle Soto MD Result [facility] Isabelle Soto MD IN CLINIC/BEDSIDE ORDERAB LES Final Result * Transfuse platelets (10/30/2024 9:14 AM EDT) Erica Castillo APRN BLOOD TRANSFUSION ORDERABL ES Final Result * Transfuse platelets: 2 Units (10/30/2024 9:14 AM EDT) Erica Castillo APRN BLOOD TRANSFUSION ORDERABL ES Final Result * Transfuse platelets (10/30/2024 9:13 AM EDT) Erica Castillo APRN BLOOD TRANSFUSION ORDERABL ES Final Result * IN INSERT CATH,ART,PERCUT,SHORTTERM, HC INSERT CATH,ART,PERCUT,SHORTTERM (10/30/2024 9:11 AM EDT) Narrative Isabelle Soto MD - 10/30/2024 9:11 AM EDT Isabelle Soto MD 11/02/2024 10:22 AM Arterial line Performed by: Erica Castillo APRN Authorized by: Erica Castillo APRN Consent: Consent obtained: Written Consent given by: son. Risks discussed: Bleeding and infection [place] protocol: Imaging studies available: yes Site/side marked: [...] 7.31 - 7.42 10/30/2024 8:50 AM EDT [facility] pCO2, Arterial 40 35 - 48 mm Hg 10/30/2024 8:50 AM EDT [facility] pO2, Arterial 70(L) >80 mm Hg 10/30/2024 8:50 AM EDT [facility] SO2, Arterial 96 94 - 98 % 10/30/2024 8:50 AM EDT [facility] FIO2 40.0 % 10/30/2024 8:50 AM EDT [facility] Base Excess, Arterial -0.7 -2 - 3 mmol/L 10/30/2024 8:50 AM EDT [facility] HCO3, Arterial 24.2 22 - 26 mmol/L 10/30/2024 8:50 AM EDT [facility] Total Hemoglobin, Arterial, Whole Blood 9.4(L) 11.2 - 15.7 g/dL 10/30/2024 8:50 AM EDT [facility] Hematocrit, Arterial 28.0(L) 34.0 - 45.0 % 10/30/2024 8:50 AM EDT [facility] Sodium, Arterial 141 136 - 145 mmol/L 10/30/2024 8:50 AM EDT [facility] Potassium, Arterial 3.6 3.6 - 4.9 mmol/L 10/30/2024 8:50 AM EDT [facility] Chloride, Whole Blood 107 97 - 107 mmol/L 10/30/2024 8:50 AM EDT [facility] Glucose, Arterial 128(H) 74 - 99 mg/dL 10/30/2024 8:50 AM EDT [facility] Ionized Calcium, Arterial 4.6 4.6 - 5.1 mg/dL 10/30/2024 8:50 AM EDT [facility] Lactate, Arterial 2.2(H) 0.5 - 1.6 mmol/L 10/30/2024 8:50 AM EDT [facility] Body Temperature 36.2 Celsius 10/30/2024 8:50 AM EDT [facility] pH, Temp Corrected, Arterial 7.40 7.31 - 7.42 10/30/2024 8:50 AM EDT [facility] pCO2, Temp Corrected, Arterial 39 35 - 48 mm Hg 10/30/2024 8:50 AM EDT [facility] pO2, Temp Corrected, Arterial 66(L) >80 mm Hg 10/30/2024 8:50 AM EDT [facility] Windows System Admin ID Aria Pereira 10/30/2024 8:50 AM EDT [facility] Blood, Arterial Whole blood specimen / Unknown 10/30/2024 8:49 AM EDT 10/30/2024 8:50 AM EDT us Katharine Savage MD LAB POINT OF CARE TE ST DOCKED DEVICE UNSOLICITED RESULTS Final Result [facility] [address] [place] [address] * Prepare Leukocyte Reduced Platelets: 2 Units (10/30/2024 7:15 AM EDT) Product Code [id number] BLOO D BANK Dispense Status Transfused BLOOD BANK Blood Expiration Date [id number] BLOOD BANK Unit Number [id number] CH B LOOD BANK Product Blood Type 7300 BLOOD BANK Blood Type B+ CH BLOOD BANK Product Code [id number] BLOO D BANK Dispense Status Transfused BLOOD BANK Blood Expiration Date [id number] BLOOD BANK Unit Number [id number] CH B LOOD BANK Product Blood Type 6200 BLOOD BANK Blood Type A+ BLOOD BANK Blood Venous blood specimen / Unknown Erica Castillo [employer] BLOOD BANK PRODUCT ORDERAB LES Final Result [facility] BANK [address] [place] [address] * (ABNORMAL) Lactate, venous (10/30/2024 6:45 AM EDT) Lactate, Venous, Whole Blood 2.8(H) 0.5 - 2.2 mmol/L LAB HEMATOLOGY METHOD 10/30/2024 6:58 AM EDT [facility] Blood Venous blood specimen / Unknown Venipuncture / Unknown 10/30/2024 6:45 AM EDT 10/30/2024 6:57 AM EDT Chirag Campoverdeel PA LAB BLOOD ORDERABLES Final Res ult Performing Organization Address City/[facility]/ZIP [place] [address] * Phosphorus (10/30/2024 6:45 AM EDT) Phosphorus, Plasma 3.2 2.5 - 4.5 mg/dL 10/30/2024 7:24 AM EDT [facility] Blood Venous blood specimen / Unknown Venipuncture / Unknown 10/30/2024 6:45 AM EDT 10/30/2024 6:51 AM EDT Chirag Bernstein Imel PA LAB BLOOD ORDERABLES Final Res ult [facility] [address] [place] [address] * (ABNORMAL) Magnesium (10/30/2024 6:45 AM EDT) Magnesium, Plasma 1.8(L) 1.9 - 2.4 mg/dL 10/30/2024 7:24 AM EDT [facility] Blood Venous blood specimen / Unknown Venipuncture / Unknown 10/30/2024 6:45 AM EDT 10/30/2024 6:51 AM EDT us Chirag FORBES LAB BLOOD ORDERABLES Final Res ult [facility] [address] [place] [address] * (ABNORMAL) Basic Metabolic Panel, Plasma (10/30/2024 6:45 AM EDT) Glucose, Plasma 119(H) 74 - 99 mg/dL 10/30/2024 7:24 AM EDT [facility] BUN, Plasma 15 8 - 23 mg/dL 10/30/2024 7:24 AM EDT [facility] Creatinine, Plasma 1.00 0.60 - 1.10 mg/dL 10/30/2024 7:24 AM EDT [facility] BUN/Creatinine Ratio 15 10/30/2024 7:24 AM EDT [facility] Sodium, Plasma 139 136 - 145 mmol/L 10/30/2024 7:24 AM EDT [facility] Potassium, Plasma 4.5 3.6 - 4.9 mmol/L 10/30/2024 7:24 AM EDT [facility] Comment:Hemolyzed, result ma y be falsely increased. Chloride, Plasma 105 97 - 107 mmol/L 10/30/2024 7:24 AM EDT [facility] CO2, Plasma 23 22 - 29 mmol/L 10/30/2024 7:24 AM EDT [facility] Anion Gap 11 6 - 16 mmol/L 10/30/2024 7:24 AM EDT [facility] Total Calcium, Plasma 8.8(L) 8.9 - 10.2 mg/dL 10/30/2024 7:24 AM EDT [facility] eGFRcr 62.3 mL/min/1.7 3m*2 10/30/2024 7:24 AM EDT [facility] Comment:Reported eGFRcr in m L/min/1.73m2 is based the CKD-EPI 2020 equation that does not use a race coefficient. Blood Venous blood specimen / Unknown Venipuncture / Unknown 10/30/2024 6:45 AM EDT 10/30/2024 6:51 AM EDT us Chirag FORBES LAB BLOOD ORDERABLES Final Res ult [facility] [address] [place] [address] * (ABNORMAL) CBC W/O Differential (10/30/2024 6:45 AM EDT) WBC Count 12.35(H) 3.70 - 10.30 10*3/uL LAB HEMATOLOGY METHOD 10/30/2024 7:21 AM EDT [facility] RBC Count 3.73(L) 3.90 - 5.20 10*6/uL LAB HEMATOLOGY METHOD 10/30/2024 7:21 AM EDT [facility] HGB 10.3(L) 11.2 - 15.7 g/dL LAB HEMATOLOGY METHOD 10/30/2024 7:21 AM EDT [facility] HCT 32.9(L) 34.0 - 45.0 % LAB HEMATOLOGY METHOD 10/30/2024 7:21 AM EDT [facility] Platelet Count 218 155 - 369 10*3/uL LAB HEMATOLOGY METHOD 10/30/2024 7:21 AM EDT [facility] MCV 88 79 - 98 fL LAB HEMATOLOGY METHOD 10/30/2024 7:21 AM EDT [facility] MCH 27.6 26.0 - 32.0 pg LAB HEMATOLOGY METHOD 10/30/2024 7:21 AM EDT [facility] MCHC 31.3 30.7 - 35.5 g/dL LAB HEMATOLOGY METHOD 10/30/2024 7:21 AM EDT [facility] RDW 12.9 11.5 - 14.5 % LAB HEMATOLOGY METHOD 10/30/2024 7:21 AM EDT [facility] MPV 10.6 8.8 - 12.5 fL LAB HEMATOLOGY METHOD 10/30/2024 7:21 AM EDT [facility] nRBC 0.0 <=0.0 per 100 WBCs LAB HEMATOLOGY METHOD 10/30/2024 7:21 AM EDT [facility] Blood Venous blood specimen / Unknown Venipuncture / Unknown 10/30/2024 6:45 AM EDT 10/30/2024 6:51 AM EDT us Chirag FORBES LAB BLOOD ORDERABLES Final Res ult [facility] [address] [place] [address] * CT Head wo IV Contrast (10/30/2024 [...] Detected Not Detected 10/31/2024 4:57 AM EDT [facility] Swab (Axilla and Groin) Non-blood Collection / Unknown 10/30/2024 4:47 AM EDT 10/30/2024 4:59 AM EDT Narrative [facility] - 10/31/2024 4:57 AM EDT This PCR assay was developed and its performance characteristics determined by [facility] as appropriate for clinical purposes. This assay has not been cleared or approved by the FDA, but is performed in a CLIA regulated laboratory that is qualified to perform high-complexity testing. Chirag Zambrano PA LAB MICROBIOLOGY - GENERAL ORD ERABLES Final Result [facility] [address] [place] [address] * Multi Drug Resistance Test (10/30/2024 4:47 AM EDT) Culture No growth at day 1 10/31/2024 6:37 AM EDT [facility] Swab (Nares and Marley Rectal) Non-blood Collection / Unknown 10/30/2024 4:47 AM EDT 10/30/2024 4:58 AM EDT Narrative [facility] - 10/31/2024 6:37 AM EDT This test was developed and its performance characteristics determined by the [facility]. Although the media is FDA-approved, it is not FDA-approved for all specimen types submitted. The FDA has determined that such clearance or approval is not necessary. This test is used for surveillance purposes. It should not be regarded as investigational or for research. The [facility] is certified under the Clinical Laboratory Improvement Amendments of 1988 (CLIA-88) as qualified to perform high complexity clinical laboratory testing. Chirag FORBES LAB MICROBIOLOGY - GENERAL ORD ERABLES Final Result [facility] [address] [place] [address] * (ABNORMAL) POCT glucose meter (10/30/2024 3:18 [...] for testing. Comment 10/30/2024 3:20 AM EDT [facility] Windows System Admin ID Doug Loya 3:20 AM EDT [facility] Device ID [id number] 10/30/2024 3:20 AM EDT [facility] Specimen Type POC Capillary 10/30/2024 3:20 AM EDT [facility] Blood Capillary blood specimen / Unknown 10/30/2024 3:18 AM EDT 10/30/2024 3:20 AM EDT Generic Provider Poct LAB POINT OF CARE TEST DOCKED DEVICE UNSOLICITED RESULTS Final Result Performing Organization Address City/[facility]/ZIP Co de Phone Number [facility] [address] [place] [address] * Type and Screen (10/30/2024 2:43 AM EDT) ABO/Rh O Positive 10/30/2024 4:18 AM EDT [facility] Comment:DOWNTIME RESULT ENTR Y : [id number] Antibody Screen Negative 10/30/2024 4:18 AM EDT [facility] Comment:DOWNTIME RESULT ENTR Y: [id number] Specimen Expiration 11/02/2024 23:59 10/30/2024 4:18 AM EDT [facility] Blood Venous blood specimen / Unknown Venipuncture / Unknown 10/30/2024 2:43 AM EDT 10/30/2024 4:35 AM EDT Katharine Savage MD LAB BLOOD BANK TEST ORDERABLES E dited Result - Final Performing Organization Address City/[facility]/ZIP Co de Phone Number [facility] [address] [place] [address], [place] * Gold Top (10/30/2024 2:40 AM EDT) Extra Hold for add-ons 10/30/2024 6:02 AM EDT [facility] Comment:Auto resulted. Blood Venous blood specimen / Unknown 10/30/2024 2:40 AM EDT 10/30/2024 3:32 AM EDT Iker Reagan MD LAB BLOOD ORDERABLES Final Result Performing Organization Address City/[facility]/ZIP Co de Phone Number [facility] [address] [place] [address] * Gold Top (10/30/2024 2:40 AM EDT) Extra Hold for add-ons 10/30/2024 6:02 AM EDT [facility] Comment:Auto resulted. Blood Venous blood specimen / Unknown 10/30/2024 2:40 AM EDT 10/30/2024 3:32 AM EDT Iker Reagan MD LAB BLOOD ORDERABLES Final Result Performing Organization Address [facility] Co de Phone Number [facility] [address] [place] [address] * Alcohol Profile Plasma (10/30/2024 2:40 AM EDT) Methanol Plasma <10 <10 mg/dL 7:04 AM EDT [facility] Acetone Plasma <10 <10 mg/dL 10/30/2024 7:04 AM EDT [facility] Isopropanol Plasma <10 <10 mg/dL 10/30/2024 7:04 AM EDT [facility] Ethanol Plasma <10 <10 mg/dL 10/30/2024 7:04 AM EDT [facility] Blood Venous blood specimen / Unknown Venipuncture / Unknown 10/30/2024 2:40 AM EDT 10/30/2024 3:22 AM EDT Narrative [facility] - 10/30/2024 7:04 AM EDT Test performed by Gas Chromatography at the [facility]. This test was developed and its performance characteristics determined by [facility]. It has not been cleared or approved by the FDA.The laboratory is regulated under CLIA as qualified to perform high-complexity testing. This test is used for clinical purposes only. Katharine Savage MD LAB BLOOD ORDERABLES Final Resul t Performing Organization Address [facility] Co de Phone Number [facility] [address] [place] [address] * Protime-INR (10/30/2024 2:40 AM EDT) Prothrombin Time 10/30/2024 4:59 AM EDT [facility] Comment: aPTT <20. Notified Baron Black of result correction. Corrected result: Previously reported as 13.9 sec on 10/30/2024 at 0336 EDT. INR LAB COAGULATION METHOD 10/30/2024 4:59 AM EDT [facility] Comment: aPTT <20. Notified Baron Black of result correction. Corrected result: Previously reported as 1.1 on 10/30/2024 at 0336 EDT. Blood Venous blood specimen / Unknown Venipuncture / Unknown 10/30/2024 2:40 AM EDT 10/30/2024 3:12 AM EDT Narrative [facility] - 10/30/2024 4:59 AM EDT aPTT <20. Notified Baron Black of result correction. us Katharine Savage MD LAB BLOOD ORDERABLES Edited Resu lt - Final [facility] [address] [place] [address] * (ABNORMAL) CBC W/O Differential (10/30/2024 2:40 AM EDT) WBC Count 18.78(H) 3.70 - 10.30 10*3/uL LAB HEMATOLOGY METHOD 10/30/2024 3:15 AM EDT [facility] RBC Count 4.41 3.90 - 5.20 10*6/uL LAB HEMATOLOGY METHOD 10/30/2024 3:15 AM EDT [facility] HGB 12.0 11.2 - 15.7 g/dL LAB HEMATOLOGY METHOD 10/30/2024 3:15 AM EDT [facility] HCT 38.2 34.0 - 45.0 % LAB HEMATOLOGY METHOD 10/30/2024 3:15 AM EDT [facility] Platelet Count 278 155 - 369 10*3/uL LAB HEMATOLOGY METHOD 10/30/2024 3:15 AM EDT [facility] MCV 87 79 - 98 fL LAB HEMATOLOGY METHOD 10/30/2024 3:15 AM EDT [facility] MCH 27.2 26.0 - 32.0 pg LAB HEMATOLOGY METHOD 10/30/2024 3:15 AM EDT [facility] MCHC 31.4 30.7 - 35.5 g/dL LAB HEMATOLOGY METHOD 10/30/2024 3:15 AM EDT [facility] RDW 12.6 11.5 - 14.5 % LAB HEMATOLOGY METHOD 10/30/2024 3:15 AM EDT [facility] MPV 10.1 8.8 - 12.5 fL LAB HEMATOLOGY METHOD 10/30/2024 3:15 AM EDT [facility] nRBC 0.0 <=0.0 per 100 WBCs LAB HEMATOLOGY METHOD 10/30/2024 3:15 AM EDT [facility] Blood Venous blood specimen / Unknown Venipuncture / Unknown 10/30/2024 2:40 AM EDT 10/30/2024 3:12 AM EDT us Katharine Savage MD LAB BLOOD ORDERABLES Final Resul t [facility] [address] [place] [address] * (ABNORMAL) Blood gas, venous (10/30/2024 2:40 AM EDT) pH, Venous 7.31(L) 7.32 - 7.43 LAB HEMATOLOGY METHOD 10/30/2024 3:18 AM EDT [facility] pCO2, Venous 53(H) 37 - 52 mmHg LAB HEMATOLOGY METHOD 10/30/2024 3:18 AM EDT [facility] pO2, Venous 33 25 - 40 mmHg LAB HEMATOLOGY METHOD 10/30/2024 3:18 AM EDT [facility] SO2, Measured, Venous 51(L) 65 - 80 % LAB HEMATOLOGY METHOD 10/30/2024 3:18 AM EDT [facility] Base Excess, Venous -0.4 -2.0 - 3.0 mmol/L LAB HEMATOLOGY METHOD 10/30/2024 3:18 AM EDT [facility] Bicarbonate, Calculated, Venous 27(H) 22 - 26 mmol/L LAB HEMATOLOGY METHOD 10/30/2024 3:18 AM EDT [facility] Hematocrit, Whole Blood 37.6 34.0 - 45.0 % LAB HEMATOLOGY METHOD 10/30/2024 3:18 AM EDT [facility] Sodium, Whole Blood 140 136 - 145 mmol/L LAB HEMATOLOGY METHOD 10/30/2024 3:18 AM EDT [facility] Potassium, Whole Blood 4.2 3.6 - 4.9 mmol/L LAB HEMATOLOGY METHOD 10/30/2024 3:18 AM EDT [facility] Chloride, Whole Blood 103 97 - 107 mmol/L LAB HEMATOLOGY METHOD 10/30/2024 3:18 AM EDT [facility] Glucose, Whole Blood 125(H) 74 - 99 mg/dL LAB HEMATOLOGY METHOD 10/30/2024 3:18 AM EDT [facility] Lactate, Venous, Whole Blood 3.3(H) 0.5 - 2.2 mmol/L LAB HEMATOLOGY METHOD 10/30/2024 3:18 AM EDT [facility] Ionized Calcium, Whole Blood 4.7 4.6 - 5.1 mg/dL LAB HEMATOLOGY METHOD 10/30/2024 3:18 AM EDT [facility] Blood Venous blood specimen / Unknown Venipuncture / Unknown 10/30/2024 2:40 AM EDT 10/30/2024 3:11 AM EDT Katharine Savage MD LAB BLOOD ORDERABLES Final Resul t [facility] [address] [place] [address] * XR Pelvis 1 or 2 Views [...] and unspecified hyperlipidemia CVA (cerebral vascular accident) ([facility]) Unspecified cerebral artery occlusion with cerebral infarction Overweight (BMI 25.0-29.9) Overweight Debility Unspecified debility Fracture of right orbital floor Malnutrition ([facility]/HCC) Unspecified protein-calorie malnutrition MRSA (methicillin resistant staph aureus) culture positive Carrier or suspected carrier of Methicillin resistant Staphylococcus aureus Urinary retention Unspecified retention of urine documented in this encounter Admitting Diagnoses Diagnosis Intraventricular hemorrhage ([facility]) documented in this encounter Administered Medications Inactive [...] scheduled, First dose (after last modification) on [facility] 11/03/24 at 1230, Until Discontinued, Routine Given [...] 2.5 mg, Oral, Daily, First dose on Tu11/01/24 at 1845, Until Discontinued, Routine, Recovery(Phase II-Outpatient)/On [...] Given 11/02/2024 3:22 PM EDT 120 mL dyuawkxbxo-aqcjeibecrqso-uypssyid 50-325-40 MG per tablet 1 tablet 1 tablet, Oral, Every 6 hours PRN, Starting on 11/08/24 at 1327, Until 11/12/24 at 1807, Routine, headaches dantrolene (Dantrium) capsule 25 mg 25 mg, Oral, 2 times daily, First dose on Thu11/03/24 at 1430, Until Discontinued, Routine Given 11/07/2024 [...] PRN, Starting on Thu11/02/24 at 1646, Until Thu11/12/24 at 1807, Routine, itching Given 11/11/2024 8:49 [...] PRN, Starting on Thu11/07/24 at 1515, Until Thu11/12/24 at 1807, Routine, wheezing lactated Ringer's bolus 500 mL 500 mL, Intravenous, Once, 1 dose, On 10/31/24 at 1445, Administer over 1 Hours, Routine New Bag 10/31/2024 2:07 PM EDT 500 mL 500 mL/hr levETIRAcetam (Keppra) tablet 1,000 mg 1,000 mg, Oral, 2 times daily, 1400 doses, First dose on [place] 10/30/24 at 0900, Last dose on [facility] 09/29/26 at 2100, Routine Given 10/30/2024 11:23 AM EDT 1,000 mg levETIRAcetam (Keppra) tablet 1,000 mg 1,000 mg, Nasogastric, 2 times daily, 13 doses, First dose (after last modification) on [place] 10/30/24 at 2100, Last dose on [facility] 11/05/24 at 2100, Routine Given 11/03/2024 8:47 AM EDT 1,000 mg Given 11/02/2024 8:15 PM EDT 1,000 mg Given 11/02/2024 8:03 AM EDT 1,000 mg levETIRAcetam (Keppra) tablet 1,000 mg 1,000 mg, Oral, 2 times daily, 5 doses, First dose (after last modification) on [facility] 11/03/24 at 2100, Last dose on [facility] 11/05/24 at 2100, Routine Given 11/05/2024 8:25 [...] times daily, 10 doses, First dose on 11/05/24 at 0900, Last dose on Thu11/09/24 at 2100, Routine Given 11/09/2024 9:07 AM EDT 1 Application Given 11/08/2024 8:01 PM EDT 1 Application Given 11/08/2024 8:02 AM EDT 1 Application mupirocin (Bactroban) 2 % ointment 1 Application Each Nostril, 2 times daily, 3 doses, First dose (after last reorder) on Thu11/09/24 at 2245, Last dose on [facility] 11/10/24 at 2100, Routine Given 11/10/2024 8:00 PM EDT 1 Application Given 11/10/2024 8:39 AM EDT 1 Application Given 11/09/2024 10:30 PM EDT 1 Application norepinephrine 8 mg/250 mL (0.032 mg/mL) infusion 0-0.4 mcg/kg/min 67.6 kg (0-50.7 mL/hr), 0.032 mg/mL, Intravenous, Titrated, Starting on 10/30/24 at 1000, Until Thu10/31/24 at 0931, STAT [...] PRN, Starting on Thu11/04/24 at 1639, Until Thu11/12/24 at 1807, Routine, nausea, vomiting oxyCODONE (Roxicodone) [...] Nightly, First dose (after last modification) on [facility] 10/31/24 at 2100, Until Discontinued, Routine Given 11/02/2024 8:15 PM EDT 50 mg Given 11/01/2024 9:15 PM EDT 50 mg Given 10/31/2024 8:04 PM EDT 50 mg QUEtiapine (SEROquel) tablet 50 mg 50 mg, Oral, Nightly, First dose (after last modification) on [facility] 11/03/24 at 2100, Until Discontinued, Routine Given 11/08/2024 8:01 PM EDT 50 mg Given 11/07/2024 8:01 PM EDT 50 mg Given 11/06/2024 8:02 PM EDT 50 mg senna-docusate (Marley-Colace) 8.6-50 MG per tablet 2 tablet 2 tablet, Oral, 2 times daily, First dose on [place] 10/30/24 at 0915, Until Discontinued, Routine Given 10/30/2024 11:24 AM EDT 2 tablets senna-docusate (Marley-Colace) 8.6-50 MG per tablet 2 tablet 2 tablet, Nasogastric, 2 times daily, First dose (after last modification) on [place] 10/30/24 at 2100, Until Discontinued, Routine Given 11/03/2024 8:48 AM EDT 2 tablets Given 11/02/2024 8:15 PM EDT 2 tablets Given 11/02/2024 9:16 AM EDT 2 tablets senna-docusate (Marley-Colace) 8.6-50 MG per tablet 2 tablet 2 tablet, Oral, 2 times daily, First dose (after last modification) on [facility] 11/03/24 at 2100, Until Discontinued, Routine Given 11/12/2024 9:26 AM EDT 2 table ts Given 11/11/2024 8:47 PM EDT 2 tablets Given 11/05/2024 8:25 PM EDT 2 tablets sodium chloride 0.9 % bolus 1,000 mL 1,000 mL, Intravenous, Once, 1 dose, On [place] 10/30/24 at 0700, Administer over 15 Minutes, Routine New Bag 10/30/2024 6:45 AM EDT 1,000 mL 4000 mL/hr sodium chloride 0.9 % bolus 500 mL 500 mL, Intravenous, Once, 1 dose, On [place] 10/30/24 at 1345, Administer over 15 Minutes, Routine New Bag 10/30/2024 1:44 PM EDT 500 mL 2000 mL/hr sodium chloride 0.9 % bolus 500 mL 500 mL, Intravenous, Once, 1 dose, On [place] 10/30/24 at 1615, Administer over 15 Minutes, Routine New Bag 10/30/2024 3:30 PM EDT 500 mL 2000 mL/hr sodium chloride 0.9 % flush 10 mL 10 mL, Intravenous, Every 12 hours, First dose on [place] 10/30/24 at 0415, Until Discontinued, Routine Given 11/02/2024 4:19 AM EDT 10 mL Given 11/01/2024 3:29 AM EDT 10 mL Given 10/31/2024 3:28 PM EDT 10 mL sodium chloride 0.9 % flush 10 mL 10 mL, Intravenous, Every 12 hours, First dose on [place] 10/30/24 at 1745, Until Discontinued, Routine Given 11/02/2024 5:11 AM EDT 10 mL Given 11/01/2024 4:48 AM EDT 10 mL Given 10/31/2024 5:25 PM EDT 10 mL sodium chloride 0.9 % flush 10 mL 10 mL, Intravenous, Every 12 hours, First dose on [place] 10/30/24 at 1815, Until Discontinued, Routine Given 11/02/2024 5:32 AM EDT 10 mL Given 11/01/2024 6:25 PM EDT 10 mL Given 11/01/2024 6:04 AM EDT 10 mL sodium chloride 0.9 % flush 10 mL 10 mL, Intravenous, Every 12 hours, First dose on [place] 10/30/24 at 2200, Until Discontinued, Routine Given 11/01/2024 9:15 PM EDT 10 mL Given 11/01/2024 9:45 AM EDT 10 mL Given 10/31/2024 10:03 PM EDT 10 mL sodium chloride 0.9 % infusion 75 mL/hr, Intravenous, Continuous, Starting on [place] 10/30/24 at 0415, Until Thu11/02/24 at 1018, Routine [...] [facility] 11/03/24 at 1800, Until Discontinued, Routine Given 11/10/2024 [...] Andreea Dean RN)2105 (Given - Provider: Jazmin Burton, LUANNE) 0927 (Given - Provider: Melony Maldonado)1402 (Given [...] Routine 0839 (Given - Provider: Jelly Clay RN)214 (Given - Provider: Pietro Valdovinos, LUANNE) 0842 (Given - Provider: Andreea Dean RN)212 (Given - Provider: Jazmin Burton, LUANNE) atorvastatin (Lipitor) tablet 40 mg 40 mg, Oral, Nightly, First dose (after last modification) on Bia 11/03/24 at 2100, Until Discontinued, Routine 214 (Given - Provider: Pietro Valdovinos, RN) 2048 (Given - Provider: Jazmin Burton, LUANNE) bacitracin (425g jar) ointment 1 Jar 1 Jar, Topical, 2 times daily, 10 doses, First dose on Thu11/09/24 at 0900, Last dose on Thu11/13/24 at 2100, Routine 0840 (Given - Provider: Jelly Clay RN)2200 (Given - Provider: Pietro Valdovinos RN) 1304 (Given - Provider: Andreea Dean RN)2051 (Given - Provider: Jazmin Burton RN) 09 (Given - Provider: Melony Maldonado) baclofen (Lioresal) [...] RN)2144 (Given - Provider: Pietro Valdovinos RN) 08 (Given - Provider: Andreea Dean RN)2048 (Given [...] Valdovinos RN)1401 (Given - Provider: Junior Naila Raines)214 (Given - Provider: Pietro Valdovinos RN) 0543 (Given - Provider: Pietro Valdovinos RN)1304 (Given - Provider: Andreea Dean RN)210 (Given - Provider: Jazmin Burton RN) 050 (Given - Provider: Jazmin Burton RN)140 (Given - Provider: Melony Maldonado) FLUoxetine (PROzac) [...] Valdovinos RN) 0537 (Given - Provider: Pietro Valdovinos, LUANNE) 0509 (Given - Provider: Jazmin Burton, LUANNE) [...] condition: must add comment - Comment: multiple bm)9310 (Not Given - Provider: Pietro Valdovnios RN - Reason: Patient/family refused) 0843 (Not Given - Provider: Andreea Dean RN - Reason: Hold for condition: must add comment - Comment: bm)2046 (Given - Provider: Jazmin Burton, LUANNE) 0928 (Given - Provider: Melony Maldonado) QUEtiapine (SEROquel) tablet 100 mg 100 mg, Oral, Nightly, First dose (after last modification) on Thu11/09/24 at 2100, Until Discontinued, Routine 214 (Given - Provider: Pietro Valdovinos, RN) 2048 (Given - Provider: Jazmin Burton, LUANNE) senna-docusate (Marley-Colace) 8.6-50 MG per tablet 2 tablet 2 tablet, Oral, 2 times daily, First dose (after last modification) on Bia 11/03/24 at 2100, Until Discontinued, Routine 0822 (Not Given - Provider: Jelly Clay RN - Reason: Epidural Placement or Removal - Comment: multiple bm)2214 (Not Given - Provider: Pietro Valdovinos RN - Reason: Patient/family refused) 0842 (Not Given - Provider: Andreea Dean RN - Reason: Hold for condition: must add comment - Comment: bm)2046 (Given - Provider: Jazmin Burton RN) 09 (Given - Provider: Melony Maldonaod) tamsulosin (Flomax) 24 hr capsule 0.4 mg [...] order) PRN Medication Order 11/10/2024 11/11/2024 11/12/2024 iamfediceq-laidtltezusaa-xde feine 50-325-40 MG per tablet 1 tablet 1 tablet, Oral, Every 6 hours PRN, Starting on Tu11/08/24 at 1327, Until 11/12/24 at 1807, Routine, headaches hydrOXYzine pamoate (Vistaril) capsule 25 mg 25 mg, Oral, Every 8 hours PRN, Starting on Thu11/02/24 at 1646, Until 11/12/24 at 1807, Routine, itching 0000 (Given - Provider: Pietro Valdovinos, LUANNE)2258 (Given - Provider: Pietro Valdovinos RN) 0842 (Given - Provider: Andreea Dean RN)2048 (Given - Provider: Jazmin Burton RN) ipratropium-albuterol (Duo-Neb) 0.5-2.5 mg/3 mL nebulizer solution 3 mL 3 mL, Nebulization, Every 6 hours PRN, Starting on 11/07/24 at 1515, Until 11/12/24 at 1807, Routine, [...] Oral, Every 8 hours PRN, Starting on Tu11/08/24 at 1327, Until 11/12/24 at 1807, Routine, severe pain 0000 (Given - Provider: Pietro Valdovinos RN)0907 (Return to [facility] - Provider: Jelly Clay RN)225 (Given - Provider: Pietro Valdovinos, LUANNE) 0842 (Given - Provider: Andreea Dean, LUANNE)2046 (Given - Provider: Jazmin Burton RN) Linked Groups Order Group 1: ondansetron ODT (Zofran-ODT) disintegrating tablet 4 mgJump to med 4 mg, Oral, Every 6 hours PRN, Starting on Thu11/04/24 at 1639, Until 11/12/24 at 1807, Routine, nausea, vomiting Or ondansetron (Zofran) injection 4 mgJump to med 4 mg, Intravenous, Every 6 hours PRN, Starting on 11/04/24 at 1639, Until 11/12/24 at 1807, Routine, [...] documented as of this encounter 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
--- OUTSIDE RECORDS SUMMARY | 2024-11-01 12:56 | XMS_ITS | Encounter Summary ---
Author Organization Healthcare Address [address] [place] [address] Care Team Providers Care Tanker Service Attendant Name Role Phone Aman Hernandez MD Primary Care Provider Reason for Visit * Reason Comments Trauma Alert * Auth/Cert (Routine) Specialty Diagnoses / Procedures Referred By Contac t Referred To Contact Diagnoses Intraventricular hemorrhage (CMS/HCC) Fall, Retrobulbar hematoma, brain bleed Katharine Savage MD [address] [facility] [address] [place] [address] Phone: tel: fax: [facility] A Inpatient [address] [place] [address] Phone: tel: Referral ID Status Reason Start Date Expiration Date Visits Re quested Visits Authorized [id number] 1 1 Encounter Details Date Type Department Care Team (Latest Contact Info) Description 11/01/2024 12:56 PM EDT - 11/01/2024 2:41 PM EDT Surgery P[facility] A OPERATING ROOM [address] [place] [address] Yobani Benoit MD [address] [facility] [address] [place] [address] ORIF, FRACTURE, ZYGOMATICOMAXILLARY COMPLEX [42378 (CPT )] Surgery Details Date/Time Status Location OR Service Patient Class Case Class Case Type Trauma Case? 11/01/2024 12:56 PM Posted JOSE OR [facility] 16 ENT Inpatient E-Electiv e Panel 1 Procedure LRB Anes Op Region Wound Class Comments ORIF, FRACTURE, ZYGOMATICOMA XILLARY COMPLEX Right General ORIF, FRACTURE, ORBIT, FLOOR Right General Surgeon Surgeon Role Service Panel Yobani Benoit MD Primary ENT 1 Raquel Paiz MD Resident - Assisting 1 documented in this encounter Social History Tobacco Use Types Packs/Day Years [...] any time in the past 12 m [facility], were you homeless or living in a skilled nursing (including now)? Patient unable to answer 10/31/2024 [facility] Utilities Answer Date Recorded In [...] Sign Reading Time Taken Comments Blood Pressure 116/43 10/30/2024 9:13 AM EDT Pulse 79 11/01/2024 12:07 PM EDT Temperature 37.4 C (99.3 F) 11/01/2024 12:15 PM EDT Respiratory Rate 17 11/01/2024 12:15 PM EDT Oxygen Saturation 100% 11/01/2024 12:15 PM EDT Inhaled Oxygen Concentration - - Weight 67.6 kg (149 lb 0.5 oz) 10/30/2024 2:59 A M EDT Height 160 cm (5' 2.99 ) 10/30/2024 8:06 PM EDT Body Mass Index 24.26 10/30/2024 8:06 PM EDT documented in this encounter Discharge Instructions * Discharge Instructions* Charles Velasco, BRICK PAVING CHECKER - 11/12/2024 1:10 PM EDT DVT prophylaxis: [...] will call with appointment date and time. Neelima0 SAna Maria Orozco [facility], Third Floor, [place] [address] # [phone] Ophtho: Follow up 11/21 @ 12:25. [facility], [address] [place] [address] #[phone] Neurosurgery: Clinic will contact with appointment date and time, [address], [facility], [address], [place] [address], SGT: [facility] Thursday Clinic as needed ; [address] [place], [place] [facility] First Floor, Wing [address] [place] [address], #[phone]. Questions or Concerns and Appointments If there are questions or concerns after discharge from the hospital, please call [phone] and ask for Blue Surgery Nurse. Working hours are Thursday - Thursday 8:00 AM to 4:00 PM. After hours, weekends and holidays please call [phone] and ask for the resident data control clerk for Blue Surgery. For appointments please call [phone]. Medication requests should be made between the hours of 9:00 AM to 3:00 PM Thursday thru Thursday. Please note that based upon recent changes to [place] law related to prescribing opioid pain medications, [...] tablet by mouth daily. 09/26/2024 HYDROcodone-acetami nophen ([place]) 5-325 MG tablet Take 1 tablet by [...] from the original note were not included. [id number] Oxycodone IMPORTANT WARNING: Oxycodone may be habit-forming. [...] Health Services Administration (SAMHSA) National Helpline at 6-383-183-WGBS. Oxycodone may cause serious or life-threatening breathing [...] doctor or pharmacist will give you the metallurgical laboratory assistant's patient information sheet (Medication Guide) when you begin your treatment with oxycodone and each time you fill your prescription. Read theinformation carefully and ask your doctor or pharmacist if you have any questions. You can also visit the Food and Drug Administration (FDA) website (https://www.fda.gov/Drugs/DrugSafety/hzc801973.htm) or the metallurgical laboratory assistant's website to obtain the Medication Guide. WHY [...] an extended-release capsule (Xtampza ER??) to take bygauth. The solution, concentrated solution, tablet, and capsule [...] or herbal products may interact with oxycodone: Dennis's wort andtryptophan. Be sure to let your [...] and out of their sight and reach. https://www.upandaway.org What should I do in case of OVERDOSE? In case of overdose, call the poison control helpline at . Information is also available online at https://www.poisonhelp.org/help. If the victim has collapsed, had a seizure, has trouble breathing, or can't be awakened, immediately call emergency services at 511. While taking oxycodone, you should talk to [...] pharmacist for the instructions or visit the metallurgical laboratory assistant's website to get the instructions. If symptoms [...] narrowing or widening of the pupils (dark stony river in the eye) ? cold, clammy skin [...] of all of the prescription and nonprescription (iuip-ebp-yuyeyxy) medicines, vitamins, minerals, and dietary supplements you [...] or pharmacist about specific clinical use. The [place] [employer] represents that the information provided hereunder was formulated with a reasonable standard of care, and in conformity with professional standards in the field. The [place] [employer] makes no representations or warranties, express or implied, including, but not limited to, any implied warranty of merchantability and/or fitness for a particular purpose, with respect to such information and specifically disclaims all such warranties. Users are advised that decisions regarding drug therapy are complex medical decisions requiring the independent, informed decision of an appropriate health career agent, and the information is provided for informational purposes only. The entire monograph for a drug should be reviewed for a thorough understanding of the drug's actions, uses and side effects. The [place] [employer] does not endorse or recommend the use of any drug.The information is not a substitute for medical care. AHFS?? Patient Medication Information?. ?? Copyright, 2023. The [place] [employer]-System Pharmacists??, [address], [address], [place], [place]. All Rights Reserved. Duplication for commercial use must be authorized by [facility]. Selected Revisions: March 09, 2024. AHFS?? Patient Medication Information?. ?? Copyright, 2024 * Reyes SamsonYUNG - Adele Carmona Antonina, RN - 11/12/2024 1:53 PM EDT Images [...] controlled substances: ? Drug Enforcement Agency (BARBARA): http://www.deadiversion.Cooper's Classicsoj.gov/drug_disposal/takeback/index.htm ? National Association of Drug Diversion Investigators (NADDI): http://rxdrugdropbox.org/ ? [place] Office of Drug Control Policy: http://odcp.ky.gov/Prescription+Drug+Drop+Box+Sites.htm Are there concerns about or ? ? [...] or purple What is a BASIA report? [facility] is a system that tracks prescriptions of controlled substances in [place]. The BASIA report tells your doctor if you have been prescribed controlled substances in the past. Doctors must get a BASIA report before prescribing controlled substances. What can I do if the information in my BASIA report is wrong? You or your doctor may contact the dispenser who reported the information to BASIA. If the dispenser agrees that the information should be changed, he or she can fix the BASIA report. However, the dispenser may certify that the report is correct. If that is the case, you or your doctor may then call the [place] Drug Enforcement and Professional Practices Branch at .This will start an investigation of the error. * Reyes CarmonaAdele RN - 11/12/2024 1:53 PM EDT Images from the original note were not included. 24082 Preventing a Surgical Site Infection A risk [...] of infection. ? Controlled body temperature. A kmsey-jvjn-rkgtih temperature during or after surgery prevents oxygen [...] and water or with an alcohol-based hand steel grinder before and after caring for you. Don?t [...] away. Last Reviewed Date: 2024 00:00:00 ?? [id number] [employer]. All rights reserved. This information is not intended as a substitute for professional medical care. Always follow your healthcare professional's instructions. * Reyes SamsonYUNG - Adele Carmona RN - 11/12/2024 1:51 [...] ? depression ? sleep problems * Reyes Goddard - Adele Carmona RN - 11/12/2024 1:51 PM EDT Images from the original note were not included. [id number] Fall Prevention Falls often take place due [...] medical history, your current prescriptions and your qvrs-pqa-gkzxdab medicines. As a general rule, the National [place] on Aging (NCA) recommends taking one-third of [...] often. Last Reviewed Date: 2024 00:00:00 ?? 8874-9283 [employer]. All rights reserved. This information is not intended as a substitute for professional medical care. Always follow your healthcare professional's instructions. * [facility] - Adele Carmona RN - 11/12/2024 1:51 PM EDT Images from the original note were not included. 106 Sinus Surgery After your sinus surgery, it is very important that you work with your doctor to keep your nasal and sinus cavities clean. Home care ? Use Your Palmer! The more moist your nose is, the [...] have some congestion. You may take an pabd-pai-lavzicx decongestant, like Sudafed. Do not take any [...] call and ask for the ENT resident data control clerk. * Reyes SamsonYUNG - Mathew, Adele Antonina, LUANNE - 11/12/2024 1:51 PM EDT Images [...] refer you to a concussion specialist at [facility]. When should I call 911? Some head [...] might refer you to a specialist at [facility]. ? For symptoms that last longer than 4 weeks after the injury, ask your current doctor to send a referral to [facility] at . ? If your symptoms [...] name and Address: Aman Hernandez MD [address] [facility] [address] / [facility] [address] Referring provider name and address: Alfonso Anderson MD [address] [place] [address] [place] [address] Chief Concern, Brief History of Present Illness, [...] the bedside, plan to transport her to [facility] by car on this day at 1630. Family and patient are agreeable to the plan. No further questions or concerns per patient parole supervisor. Physical therapy and occupational therapy evaluated the patient during hospitalization and recommend Subacute Rehab. At the time of discharge the patient was hemodynamically stable, tolerating PO, voiding spontaneously, normal bowel function, mobilizing appropriately, with their pain controlled with PO medication. At this time, the patient has obtained the maximum benefit from the present hospital stay, and so will be discharged to [facility]. DVT prophylaxis: Hold AC/AP for 2 weeks [...] with appointment date and time. Viv Orozco [facility], [address] [place] [id number] # [phone] Ophtho: Follow up 11/21 @ 12:25. [facility], [address] [place] [address] #[phone] Neurosurgery: Clinic will contact with appointment date and time, Viv Orozco, First Floor, Wing C, [address], [place] [address], SGT: [facility] Thursday Clinic as needed ; [address] [place], [place] [facility] First Floor, Wing [address] [place] [address], #[phone]. Questions or Concerns and Appointments If there are questions or concerns after discharge from the hospital, please call [phone] and ask for Blue Surgery Nurse. Working hours are Thursday - Thursday 8:00 AM to 4:00 PM. After hours, weekends and holidays please call [phone] and ask for the resident data control clerk for [facility]. For appointments please call [phone]. Medication requests should be made between the hours of 9:00 AM to 3:00 PM Thursday thru Thursday. Please note that based upon recent changes to [place] law related to prescribing opioid pain medications, [...] tablet by mouth 2 times a day. ioauyafjvq-uluhosyoqutzz-rxbkpvaw 50-325-40 MG tablet Take 1 tablet by [...] Your Medications These medications were sent to [facility] - [place], [place] - [address], [facility] [address] acetaminophen 500 MG tablet bacitracin (425g jar) 500 UNIT/GM ointment Baclofen 5 MG tablet werqnvkxyc-cqncbcqnzbavl-xxpnjgbb 50-325-40 MG tablet erythromycin 5 MG/GM ophthalmic ointment hydrOXYzine pamoate 25 MG capsule megestrol 40 MG/ML suspension naloxone 4 mg/0.1 mL nasal spray ondansetron ODT 4 MG disintegrating tablet oxyCODONE 5 MG immediate release tablet polyethylene glycol 17 g packet senna-docusate 8.6-50 MG tablet tamsulosin 0.4 MG 24 hr capsule Discharge Diagnosis Medical Problems Active and Resolved Hospital Problems Hospital Zygomatic arch fracture ([facility]) Overview Addendum 11/06/2024 11:20 AM by Jenny [...] * (Principal) Fall TBI (traumatic brain injury) ([facility]) Carotid stenosis ABLA (acute blood loss anemia) Hyperglycemia Acute respiratory failure with hypoxia Lactic acidosis Electrolyte abnormality MELISSA (acute kidney injury) ([facility]) Hypothyroidism Hypertension Hyperlipidemia CVA (cerebral vascular accident) ([facility]) Overweight (BMI 25.0-29.9) Debility Fracture of right orbital floor ([facility]) Malnutrition ([facility]) Overview Signed 11/06/2024 11:22 AM by Jenny Miller APRN DHT w/TF Oral supplementation MRSA (methicillin resistant staph aureus) culture positive Overview Addendum 11/06/2024 11:26 AM by Jenny Miller APRN Eye wound culture: MRSA Doxycycline Urinary retention Outpatient Follow-Up Future Appointments Date Time Provider Department Center 11/21/2024 12:45 PM Navya Woody MD AGUILAR Zendejas Pertinent Physical Exam At Time of Discharge [...] Flowsheets (Taken 11/12/2024 0313 by Jazmin Burton, LUANNE) Progress: declining Plan of Care Reviewed With: patient sibling Goal: Patient-Specific Goal (Individualized) Outcome: Ongoing, Progressing Flowsheets (Taken 11/12/2024 08) Patient/Family-Specific Goals (Include Timeframe): pt will remain free of injury throughout the shift Individualized Care Needs: patient safety management Anxieties, Fears or Concerns: safety Goal: Absence of Hospital-Acquired Illness or Injury Outcome: Ongoing, Progressing Intervention: Identify and Manage Fall Risk Flowsheets (Taken 11/12/2024 1000) Safety Promotion/Fall Prevention: activity supervised Intervention: Prevent Skin Injury Flowsheets Taken 11/12/2024999 by Melony Maldonado Body Position: turned right [...] Care Flowsheets (Taken 11/11/2024799 by Andreea Dean, LUANNE) Trust Relationship/Rapport: care explained choices provided emotional support provided empathic listening provided questions answered questions encouraged reassurance provided thoughts/feelings acknowledged Problem: Skin Injury Risk Increased Goal: Skin Health and Integrity Outcome: Ongoing, Progressing Intervention: Optimize Skin Protection Flowsheets Taken 11/12/2024999 by Melony Maldonado Activity Management: activity adjusted [...] Intervention: Identify and Manage Contributors Flowsheets (Taken 11/11/2024 08 by Andreea Dean, RN) Medication Review/Management: medications [...] Progressing Intervention: Optimize Cognitive Function Flowsheets (Taken 11/11/2024799 by Andreea Dean, RN) Sensory Stimulation Regulation: care clustered television on Environment Familiarity/Consistency: daily routine followed Self-Care Promotion: independence encouraged Goal: Optimal Coordination Outcome: Ongoing, Progressing Intervention: Optimize Motor Coordination and Function Flowsheets (Taken 11/11/2024799 by Andreea Dean, RN) Self-Care Promotion: independence encouraged Goal: Improved Muscle Strength Outcome: Ongoing, Progressing Intervention: Optimize Muscle Strength Flowsheets Taken 11/12/2024 1000 by Melony Maldonado Activity Management: activity adjusted per tolerance Taken 11/11/20241999 by Jazmin Burton, LUANNE Activity Assistance Provided: assistance, 2 people Taken 11/11/2024799 by Andreea Dean RN Self-Care Promotion: independence encouraged Goal: Improved Muscle Tone Outcome: Ongoing, Progressing Goal: Optimal Range of Motion Outcome: Ongoing, Progressing Intervention: Maintain Functional Joint Range Position Flowsheets Taken 11/12/2024 1000 by Melony Maldonado Range of Motion: active ROM (range of motion) encouraged Taken 11/08/20241999 by Sindi Porter RN Positioning/Transfer Devices: pillows applied Goal: Compensation for Sensory Deficit Outcome: Ongoing, Progressing Intervention: Optimize Sensory Function Flowsheets Taken 11/11/20241999 by Jazmin Burton, RN Skin [...] precautions maintained Taken 11/11/2024 08 by Andreea Dean, LUANNE Infection Management: aseptic technique maintained Fever Reduction/Comfort Measures: lightweight bedding Problem: Pain Acute Goal: Optimal Pain Control and Function Outcome: Ongoing, Progressing Intervention: Optimize Psychosocial Wellbeing Flowsheets (Taken 11/11/2024799 by Andreea Dean, RN) Supportive Measures: active listening utilized self-care encouraged positive reinforcement provided Diversional Activities: television Spiritual Activities Assistance: affirmation provided Intervention: Develop Pain Management Plan Flowsheets (Taken 11/11/20242046 by Jazmin Burton, LUANNE) Pain Management Interventions: medication (see MAR) position adjusted Intervention: Prevent or Manage Pain Flowsheets (Taken 11/11/2024799 by Andreea Dean, RN) Sensory Stimulation Regulation: [...] rinse provided Taken 11/06/2024 0234 by Pietro Valdovinos RN Enteral Feeding Safety: placement checked Goal: Feeding Tolerance Outcome: Ongoing, Progressing Intervention: Prevent and Manage Feeding Intolerance Flowsheets (Taken 11/11/2024799 by Andreea Dean, RN) Nutrition Support Management: weight trending reviewed * Progress Notes - Reanna Hyatt - 11/12/2024 10:15 AM EDT Case Management Adult Progress Note [place] Mata 64 y.o. female CSN: [id number] Admission: 10/30/2024 2:57 AM Primary Problem: Fall Anticipated Discharge Date: 11/12/24 Has Discharge Plans Changed? No Medicare Second Notice: Housing Circumstances: Not Applicable Housing Circumstances Action Taken: Other na Medically Ready for Discharge: Ready Now Additional Comments Pt anticipated to discharge today at 4pm with family transport To: [facility] Report: [phone] Discharge Summary fax: [phone] / [phone] Escribe new meds/controls to: [facility]. SW will remain available through discharge if needs arise. Reanna Hyatt RN CARDIAC, STEREO EQUIPMENT INSTALLER Banking Analyst * Care Plan - Jazmin Burton RN [...] Skin Protection Flowsheets Taken 11/11/20241999 by Jazmin Burton, RN Skin Protection: incontinence pads utilized Taken 11/11/2024 1600 by Andreea Dean, RN Activity Management: activity adjusted per tolerance Head of Bed (HOB) Positioning: HOB elevated Taken 11/11/2024 08 by Andreea Dean RN Pressure Reduction Techniques: [...] Intervention: Prevent or Manage Pain Flowsheets (Taken 11/11/2024799 by Andreea Dean RN) Sensory Stimulation Regulation: care clustered television on Bowel Elimination Promotion: adequate fluid intake promoted commode/bedpan at bedside Sleep/Rest Enhancement: awakenings minimized consistent schedule promoted Medication Review/Management: medications reviewed * Significant Event - [place], Ramez Greenfield MD - 11/11/2024 11:26 PM EDT Trauma [...] Ramez Villegas MD General Surgery, PGY-1 Pager: [phone] 12:07 AM 11/12/2024 * Nursing Note - Jazmin Burton, LUANNE - 11/11/2024 11:15 PM EDT Bed alarm [...] 16 BP 119/58 * Care Plan - Andreea Dean RN - 11/11/2024 3:25 PM EDT Problem: Adult Inpatient Plan of Care Goal: Plan of Care Review Outcome: Ongoing, Progressing Flowsheets (Taken 11/11/2024 1524) Progress: no change Plan of Care Reviewed With: patient Goal: Patient-Specific Goal (Individualized) Outcome: Ongoing, Progressing Flowsheets (Taken 11/11/2024 0800) Patient/Family-Specific Goals (Include Timeframe): patient will remain free of fall or injury this shift Individualized Care Needs: safety Anxieties, Fears or Concerns: denies Goal: Absence of Hospital-Acquired Illness or Injury Outcome: Ongoing, Progressing Intervention: Identify and Manage Fall Risk Flowsheets (Taken 11/11/2024 0800) Safety Promotion/Fall Prevention: activity supervised assistive [...] up in chair Taken 11/11/2024799 by Andreea Dean, RN Safety Promotion/Fall Prevention: activity supervised assistive [...] Activity Assistance Provided: assistance, 2 people Taken 11/11/2024 08 by Andreea Dean, RN Self-Care Promotion: independence encouraged Goal: Improved Muscle Tone Outcome: Ongoing, Progressing Goal: Optimal Range of Motion Outcome: Ongoing, Progressing Goal: Compensation for Sensory Deficit Outcome: Ongoing, Progressing Intervention: Optimize Sensory Function Flowsheets Taken 11/11/2024 0800 by Andreea Dean, RN Pressure Reduction Techniques: pressure points protected Skin Protection: incontinence pads utilized Taken 11/08/20241999 by Sindi Porter RN Sensation Impairment Protection: cues provided for safety Problem: Infection Goal: Absence of Infection Signs and Symptoms Outcome: Ongoing, Progressing Intervention: Prevent or Manage Infection Flowsheets (Taken 11/11/2024 08) Infection Management: aseptic technique maintained Fever Reduction/Comfort Measures: lightweight bedding Isolation Precautions: precautions maintained Problem: Pain Acute Goal: Optimal Pain Control and Function Outcome: Ongoing, Progressing Intervention: Optimize Psychosocial Wellbeing Flowsheets (Taken 11/11/2024 08) Supportive Measures: active listening utilized self-care encouraged positive reinforcement provided Diversional Activities: television Spiritual Activities Assistance: affirmation provided Problem: Enteral Nutrition Goal: Absence of Aspiration Signs and Symptoms Outcome: Ongoing, Progressing Goal: Feeding Tolerance Outcome: Ongoing, Progressing Intervention: Prevent and Manage Feeding Intolerance Flowsheets (Taken 11/11/2024 08) Nutrition Support Management: weight trending reviewed * [...] SGT ICU [x] Tertiary 10/31 Transfer to [facility] care 11/04 * Assessment & Plan Note - Yuli Gerardo PA - 11/11/2024 2:40 PM EDTAssociated Problem(s): TBI (traumatic brain injury) SAH, IVH NSGY consult DDAVP given at [facility] PMR following * Assessment & Plan Note - Yuli Gerardo PA - 11/11/2024 2:40 PM EDTAssociated Problem(s): Carotid stenosis 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 and MCA stenosis Resume home meds as [...] PM EDTAssociated Problem(s): CVA (cerebral vascular accident) ([facility]) PMH CVA and R sided deficits Resume home meds as appropriate in 2 weeks due to tSAH and IVH * Assessment & Plan Note - Yuil Gerardo PA - 11/11/2024 2:40 PM EDTAssociated Problem(s): Overweight (BMI 25.0-29.9) Could complicate hospitalization and mobility * Assessment & Plan Note - Yuli Gerardo PA - 11/11/2024 2:40 PM EDTAssociated Problem(s): Debility PT/OT following Recommend ERIKA Possible PM&R consult for 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: recommend [id number] BID Improved spasticity, however meds causing nausea; [...] No further questions or concerns per patient parole supervisor. Edited by: Yuli Gerardo PA at 11/11/2024 [...] SGT ICU [x] Tertiary 10/31 Transfer to [facility] care 11/04 TBI (traumatic brain injury) (CMS/HCC) Present on Admission: Yes SAH, IVH NSGY consult DDAVP given at OSH PMR following Carotid stenosis Present on Admission: Yes 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 and MCA stenosis Resume home meds as [...] debility after stroke earlier this year: recommend [id number] BID Improved spasticity, however meds causing nausea; [...] Edited by: Yuli Gerardo PA at 11/11/2024 9656 ANDREI Beasley * Progress Notes - Sven Hwang MD - 11/11/2024 1:12 PM EDT Physical Medicine & Rehabilitation Inpatient Consult Followup cc: Fall Subjective: Patient seen and examined at bedside, sister at bedside. States that they are discharging tomorrow to [facility] rehab. She reports pt slept more yesterday [...] 5/5 - RLE 2/5, tone present - LLE 5/5 Neurological: awake and alert, participating in conversation, speech fluent MAS 3 R ankle plantar flexors and MAS 1 knee flexors CN II-XII intact Follow up appointments: Future Appointments Date Time Provider Department Center 11/21/2024 12:45 PM Navya Woody MD [facility] Mobility Orders Mobility Protocol: Ortho/Trauma/Spine Mobility [...] PM&R will continue to follow. Please page [phone] with any questions, or resident on-call if [...] 0.4 mg, Oral, Daily with dinner [3] uvgestjywx-asyjjnyqayjoi-qqhrcfil, 1 tablet, Oral, q6h PRN hydrOXYzine pamoate, 25 mg, Oral, q8h PRN ipratropium-albuterol, 3 mL, Nebulization, q6h PRN ondansetron ODT, 4 mg, Oral, q6h PRN OR ondansetron, 4 mg, Intravenous, q6h PRN oxyCODONE, 5 mg, Oral, q8h PRN Cosigned by Benito Stiles DO at 11/11/2024 4:21 PM EDT Associated attestation - Bentio Stiles DO - 11/11/2024 4:21 PM EDT I saw and evaluated the patient with the resident/fellow. I discussed the case with the resident/fellow and agree with the findings and plan as documented. * Progress Notes - Rani Dodson RN - 11/11/2024 11:34 AM EDT Case Management Adult Progress Note [place] aMta 64 y.o. female CSN: [id number] Admission: 10/30/2024 2:57 AM Primary Problem: Fall Anticipated Discharge Date: 11/14 Per primary provider, pt is medically ready. Pt was able to eat and does not need a DHT. [facility] can still accept and will start insurance auth today. Pt's family can transport. Family is aware and agreeable to discharge plan. Update: Insurance approved and bed will be available on 11/12 at 4:30 PM. RN to notify family at bedside. [facility] [phone] [facility] Rani Dodson RN * Care Plan - Pietro Valdovinos RN - 11/11/2024 1:25 AM EDT Problem: Adult Inpatient Plan of Care Goal: Plan of Care Review Outcome: Ongoing, Progressing Flowsheets (Taken 11/11/2024121) Progress: no change Plan of Care Reviewed [...] Ongoing, Progressing Intervention: Prevent Infection Flowsheets (Taken 11/11/2024121) Infection Prevention: environmental surveillance performed equipment surfaces disinfected hand hygiene promoted personal protective equipment utilized rest/sleep promoted Problem: Adult Inpatient Plan of Care Goal: Optimal Comfort and Wellbeing Outcome: Ongoing, Progressing Intervention: Provide Person-Centered Care Flowsheets (Taken 11/11/2024121) Trust Relationship/Rapport: choices provided emotional support provided empathic listening provided questions encouraged questions answered thoughts/feelings acknowledged reassurance provided Problem: Skin Injury Risk Increased Goal: Skin Health and Integrity Outcome: Ongoing, Progressing Intervention: Promote and Optimize Oral Intake Flowsheets (Taken 11/11/2024121) Oral Nutrition Promotion: physical activity promoted adaptive [...] Prevent or Manage Pain Flowsheets (Taken 11/11/2024 0122) Sensory Stimulation Regulation: auditory stimulation minimized tactile [...] 4:36 PM EDT Associated Problem(s): Carotid stenosis 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 and MCA stenosis Resume home meds as [...] EDT Associated Problem(s): CVA (cerebral vascular accident) ([facility]) PMH CVA and R sided deficits [...] debility after stroke earlier this year: recommend Xpzpwrvchz47sk BID Improved spasticity, however meds causing nausea; [...] 11/10/2024 4:33 PM EDT 11/10/24 [place] Mata HPI [place] Mata is a [...] Edited by: Arnoldo Savage PA at 11/10/2024 1625 Relevant review of systems was obtained as [...] SGT ICU [x] Tertiary 10/31 Transfer to [facility] 11/04 TBI (traumatic brain injury) ([facility]) Present on Admission: Yes SAH, IVH NSGY consult DDAVP given at OSH PMR following Carotid stenosis Present on Admission: Yes 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 and MCA stenosis Resume home meds as [...] recheck as necessary MELISSA (acute kidney injury) ([facility]/HCC) Present on Admission: Yes Avoid nephrotoxic agents [...] debility after stroke earlier this year: recommend Ltvhmtzdos54qi BID Improved spasticity, however meds causing nausea; [...] of Care Goal: Plan of Care Review 11/10/2024 1611 by Junior Naila Raines Outcome: Ongoing, Progressing Flowsheets (Taken 11/10/2024 0027 by Pietro Valdovinos, RN) Progress: no change Plan of Care Reviewed With: patient 11/10/2024 1549 by Junior Naila Raines Outcome: Ongoing, Progressing Flowsheets (Taken 11/10/2024 0027 by Pietro Valdovinos, RN) Progress: no change Plan of Care Reviewed With: patient Goal: Patient-Specific Goal (Individualized) 11/10/2024 1611 by Junior Naila Raines Outcome: Ongoing, Progressing Flowsheets (Taken 11/10/2024 0745) Patient/Family-Specific Goals (Include Timeframe): pt will remain free from falls or injury throughout shift Individualized Care Needs: safety Anxieties, Fears or Concerns: none stated 11/10/2024 1549 by Junior Naila Raines Outcome: [...] Flowsheets Taken 11/10/2024 0027 by Pietro Valdovinos, topographic computator Review/Management: medications reviewed Taken 11/01/20241999 by Javi [...] routine followed Taken 11/01/20241999 by Javi Frank, RN Self-Care [...] Strength Flowsheets Taken 11/10/2024 1020 by Jelly Clay RN Activity Management: up in chair Activity [...] Plan Flowsheets (Taken 11/10/2024 0000 by Pietro Valodvinos, RN) Pain Management Interventions: medication (see MAR) [...] HOB elevated Taken 11/06/2024 0234 by Pietro Valdovinos, RN [...] Note [place] Mata 64 y.o. female CSN: [id number] Admission: 10/30/2024 2:57 AM Primary Problem: Fall Anticipated Discharge Date: 9/23 Pt removed DHT and is agreeable to eating more if family brings food from home. Provider wants to continue to monitor oral intake. Pt may need DHT replaced if unable to take in enough calories. Referrals expanded to [facility] emergency department facilities in case pt needs DHT replaced. Rani Dodson RN * Progress Notes - EmmanuelElieserly Kwame - 11/10/2024 10:21 AM EDT Occupational Therapy [...] name and and knew she was in [place]. Pt did not know the place, current [...] Mobility Bed Mobility Exam: Scooting/Bridging Level of [place]: Dependent Physical/Nonphysical Assist: Verbal Cues, Nonverbal cues (demo/gestures), Additional assist utilized for safety, Moderate cues Bed Mobility Exam: Supine to Sit Level of [place]: Maximum assist (25% patient's effort) Physical/Nonphysical Assist: Verbal Cues, Nonverbal cues (demo/gestures), Additional assist utilized for safety, HOB elevated, Moderate cues Assistive Device: Bed rails Transfers Transfer Exam: Sit to stand Level of [place]: Maximum assist (25% patient's effort) Physical/Nonphysical Assist: Verbal Cues, Nonverbal cues (demo/gestures), Additional assist utilized for safety, Moderate cues Assistive Device: Hand held assist Transfer Exam: Stand to Sit Level of [place]: Maximum assist (25% patient's effort) Physical/Nonphysical Assist: Verbal Cues, Nonverbal cues (demo/gestures), Additional assist utilized for safety, Moderate cues Assistive Device: Hand held assist Transfer Exam: Bed to Chair/Chair to Bed Level of [place]: Maximum assist (25% patient's effort) Physical/Nonphysical Assist: [...] A x 2 forsit to stand with FOOD TASTER and was able to stand for 10 sec before needing to sit back down. Pt stood again with Max A x 2 FOOD TASTER and was able take a side step or to the chair with Max cues and weight shifting. Pt sat unsupported in the chair for 8 min with SBA to increase core strength for functional tasks. Pt completed sit to stand with Max A x 2 with FOOD TASTER and required cues for posture. Pt was [...] care tasks and functional transfers to reduce resident care aid burden. OT Recommendations Discharge Destination: Subacute rehab [...] PM. * Progress Notes - Nikki Sena - 11/10/2024 10:20 AM EDT Physical Therapy Treatment Patient Name: [place] Mata Today's Date: 11/10/2024 Total Treatment Time: 42 Minutes PT Discharge Recommendations: Subacute rehab Equipment Recommended: Defer to facility Subjective RN and patient agreed to physical therapy services this date. Participants in Care Family/Caregiver Present: Yes Family/Caregiver: Other (Specify) (Niece entered during session.) Clay Artisan: Not Applicable Presentation Oxygen Therapy: None (Room [...] Mobility Bed Mobility Exam: Scooting/Bridging Level of [place]: Dependent Physical/Nonphysical Assist: Verbal Cues, Nonverbal cues (demo/gestures), Additional assist utilized for safety Bed Mobility Exam: Supine to Sit Level of [place]: Maximum assist (25% patient's effort) Physical/Nonphysical Assist: [...] Transfer Exam: Sit to stand Level of [place]: Maximum assist (25% patient's effort) Physical/Nonphysical Assist: Verbal Cues, Nonverbal cues (demo/gestures), Additional assist utilized for safety Assistive Device: Hand held assist Transfer Exam: Stand to Sit Level of [place]: Maximum assist (25% patient's effort) Physical/Nonphysical Assist: Verbal Cues, Nonverbal cues (demo/gestures), Additional assist utilized for safety Assistive Device: Hand held assist Transfer Exam: Bed to Chair/Chair to Bed Level of [place]: Maximum assist (25% patient's effort) Physical/Nonphysical Assist: [...] sit to stand transfers- 2x from the [facility] and 1x from the recliner chair. SPT [...] Intervention: Prevent or Manage Infection Flowsheets (Taken 11/10/202426) Infection Management: aseptic technique maintained Fever Reduction/Comfort Measures: lightweight clothing lightweight bedding fluid intake increased Isolation Precautions: protective Problem: Pain Acute Goal: Optimal Pain Control and Function Outcome: Ongoing, Progressing Intervention: Prevent or Manage Pain Flowsheets (Taken 11/10/202426) Sensory Stimulation Regulation: care clustered visual stimulation [...] stable * Assessment & Plan Note - rAnoldo Savage PA - 11/09/2024 5:57 PM EDT Associated Problem(s): Debility PT/OT following Recommend ERIKA Possible PM&R consult for 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: recommend [id number] BID Improved spasticity, however meds causing nausea; [...] SGT ICU [x] Tertiary 10/31 Transfer to [facility] care 11/04 * Assessment & Plan Note - Arnoldo Savage PA - 11/09/2024 5:57 PM EDT Associated Problem(s): TBI (traumatic brain injury) SAH, IVH NSGY consult DDAVP given at OSH PMR following * Assessment & Plan Note - Arnoldo Savage PA - 11/09/2024 5:57 PM EDT Associated Problem(s): Carotid stenosis 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 and MCA stenosis Resume home meds as [...] EDT Associated Problem(s): CVA (cerebral vascular accident) ([facility]) PMH CVA and R sided deficits [...] - 11/09/2024 5:55 PM EDT 11/09/24 [place] Mata HPI [place] Mata is a [...] Edited by: Arnoldo Savage PA at 11/09/2024 7670 Relevant review of systems was obtained as [...] by Drain (mL) 11/07/24 0700 - 11/07/24 18511/07/24 1900 - 11/08/24 0659 11/08/24 0700 - 11/08/24 18511/08/24 1900 - 11/09/24 0659 11/09/24 0700 - [...] SGT ICU [x] Tertiary 10/31 Transfer to [facility] 11/04 TBI (traumatic brain injury) (CMS/HCC) Present on Admission: Yes SAH, IVH NSGY consult DDAVP given at OSH PMR following Carotid stenosis Present on Admission: Yes 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 and MCA stenosis Resume home meds as [...] debility after stroke earlier this year: recommend [id number] BID Improved spasticity, however meds causing nausea; [...] of Care Goal: Plan of Care Review 11/09/2024 1658 by Junior Naila Raines Outcome: [...] With: patient Goal: Patient-Specific Goal (Individualized) 11/09/2024 165 by Junior Naila Raines Outcome: Ongoing, Progressing [...] completed toileting scheduled Intervention: Prevent Skin Injury 11/09/20241657 by Junior Naila Rainesheets Taken 11/09/2024 1600 by Katie Childers Body Position: [place] chair Taken 11/09/2024 0426 by Jennifer Ayala Skin Protection: incontinence pads utilized 11/09/2024 1650 by Junior Naila Raines Flowsheets Taken 11/09/2024 1600 by Katie Childers Body Position: [place] chair Taken 11/09/2024 0426 by Jennifer Ayala Skin Protection: incontinence pads utilized Intervention: Prevent and Manage VTE (Venous Thromboembolism) Risk 11/09/20241657 by Junior Naila Raines Flowsheets (Taken 11/09/2024 0000 by Sindi Porter, RN) VTE Prevention/Management: bilateral SCDs (sequential compression devices) off 11/09/20241649 by Junior Naila Raines Flowsheets (Taken 11/09/2024 0000 by Sindi Porter, RN) VTE Prevention/Management: bilateral [...] position adjusted 11/09/20241649 by Junior Naila Raines Flowsheets (Taken 11/08/20241999 by Sindi Porter, RN) Pain Management Interventions: medication (see MAR) pillow support provided position adjusted Intervention: Provide Person-Centered Care 11/09/20241657 by Junior Naila Raines Flowsheets (Taken 11/08/20241999 by Sindi Porter, RN) Trust Relationship/Rapport: care explained choices provided thoughts/feelings acknowledged 11/09/2024 1650 by Junior Naila Raines Flowsheets (Taken 11/08/20241999 by Sindi Porter, RN) Trust Relationship/Rapport: care explained choices provided thoughts/feelings acknowledged Problem: Skin Injury Risk Increased Goal: Skin Health and Integrity 11/09/2024 165 by Junior Naila Raines Outcome: Ongoing, Progressing 11/09/2024 1650 by Junior Naila Raines Outcome: Ongoing, Progressing 11/09/2024 1639 by Junior Naila Raines Outcome: Ongoing, Progressing Intervention: Optimize Skin Protection 11/09/20241657 by Junior Naila Raines Flowsheets Taken [...] Pressure Reduction Devices: positioning supports utilized 11/09/2024 165 by Junior Naila Raines Flowsheets Taken 11/09/2024 [...] utilized Intervention: Promote and Optimize Oral Intake 11/09/20241657 by Junior Naila Raines Flowsheets (Taken 11/08/20241999 by Sindi Porter, RN) Oral Nutrition Promotion: rest periods promoted Nutrition Interventions: food preferences provided frequent small meals provided 11/09/20241649 by Junior Naila Raines Flowsheets (Taken 11/08/20241999 by Sindi Porter, RN) Oral Nutrition Promotion: rest periods promoted Nutrition Interventions: food preferences provided frequent small meals provided Problem: Fall Injury Risk Goal: Absence of Fall and Fall-Related Injury 11/09/20241657 by Junior Naila Raines Outcome: Ongoing, Progressing 11/09/2024 1650 by Junior Naila Raines Outcome: Ongoing, Progressing 11/09/2024 1639 by Junior Naila Raines Outcome: Ongoing, Progressing Intervention: Identify and Manage Contributors 11/09/20241657 by Junior Naila Raines Flowsheets Taken 11/08/20241999 by Sindi Porter, topographic computator Review/Management: medications reviewed Taken 11/01/20241999 by Javi Frank, RN Self-Care Promotion: independence encouraged 11/09/20241649 by Junior Naila Raines Flowsheets Taken 11/08/20241999 by Sindi Porter, topographic computator Review/Management: medications reviewed Taken 11/01/20241999 by Javi [...] Junior Naila Raines Outcome: Ongoing, Progressing 11/09/2024 165 by Junior Naila Raines Outcome: Ongoing, Progressing 11/09/2024 1639 by Junior Naila Raines Outcome: Ongoing, Progressing Intervention: Optimize Balance and Safe Activity 11/09/2024 1658 by Junior Naila Raines Flowsheets [...] 1658 by Junior Naila Raines Flowsheets Taken 11/08/2024 2000 by Sindi Porter RN Sensory Stimulation Regulation: [...] assistance, 2 people Taken 11/01/20241999 by Javi Frank, RN Self-Care Promotion: independence encouraged Goal: Improved [...] of motion) encouraged Taken 11/08/20241999 by Sindi Porter, RN Positioning/Transfer Devices: pillows applied Goal: Compensation for Sensory Deficit 11/09/2024 1658 by Junior Naila Raines Outcome: Ongoing, Progressing 11/09/2024 1650 by Junior Naila Raines Outcome: Ongoing, Progressing 11/09/2024 1639 by Junior Naila Raines Outcome: Ongoing, Progressing Intervention: Optimize Sensory Function Flowsheets Taken 11/09/2024 0426 by Ayala, Jennifer B Skin Protection: incontinence pads utilized Taken 11/08/20241999 [...] technique maintained Taken 11/06/2024 0234 by Pietro Valdovinos RN Fever Reduction/Comfort Measures: lightweight clothing lightweight bedding fluid intake increased Problem: Pain Acute Goal: Optimal Pain Control and Function 11/09/20241657 by Junior Naila Raines Outcome: Ongoing, Progressing 11/09/2024 165 by Junior Naila Raines Outcome: Ongoing, Progressing [...] Management Plan Flowsheets (Taken 11/08/20241999 by Sindi Porter RN) Pain Management Interventions: medication (see MAR) pillow support provided position adjusted Intervention: Prevent or Manage Pain Flowsheets (Taken 11/08/20241999 by Sindi Porter RN) Sensory Stimulation Regulation: auditory stimulation minimized care clustered lighting decreased Bowel Elimination Promotion: privacy promoted Sleep/Rest Enhancement: awakenings minimized noise level reduced regular sleep/rest pattern promoted Medication Review/Management: medications reviewed Problem: Enteral Nutrition Goal: Absence of Aspiration Signs and Symptoms 11/09/2024 1658 by Junior Naila Raines Outcome: Ongoing, Progressing 11/09/2024 165 by Junior Naila Raines Outcome: Ongoing, Progressing 11/09/2024 1639 by Junior Naila Raines Outcome: Ongoing, Progressing Intervention: Minimize Aspiration Risk Flowsheets Taken 11/09/2024 1200 by Katie Childers Head of Bed (HOB) Positioning: HOB at 20-30 degrees Taken 11/06/2024 0234 by Pietro Valdovinos RN Oral Care: lip lubricant applied mouth [...] at 4:28 PM. * Progress Notes - Carol Ann Dai - 11/09/2024 10:01 AM EDT Physical Medicine [...] 11/21/2024 12:45 PM Navya Woody MD [facility] Mobility Orders Mobility Protocol: Ortho/Trauma/Spine Mobility Guidelines [...] PM&R will continue to follow. Please page [phone] with any questions, or resident on-call if [...] 0.4 mg, Oral, Daily with dinner [3] relfymllzc-yxhszcgqosxdz-yadrqjvh, 1 tablet, Oral, q6h PRN hydrOXYzine pamoate, [...] saw and evaluated the patient with the medical/CONTRACT DESIGNER/PA student. I discussed the case with the medical/CONTRACT DESIGNER/PA student and agree with the findings and plan as documented. I personally performed the Examand Medical Decision Making. Physical exam: MAS 2/4 RLE, right hemiparesis Assessment/Plan: - recommend baclofen 5mg po bid - discussed with PT regarding boot for right ankle * Care Plan - Junior Naila Rianes - 11/08/2024 3:47 PM EDT Problem: Adult [...] Position: turned right Taken 11/07/20241999 by Sindi Porter RN Skin Protection: incontinence pads utilized transparent dressing maintained Intervention: Prevent and Manage VTE (Venous Thromboembolism) Risk Flowsheets (Taken 11/08/2024 0800) VTE Prevention/Management: medication Intervention: Prevent Infection Flowsheets (Taken 11/07/20241999 by Sindi Porter, RN) Infection Prevention: environmental surveillance performed rest/sleep promoted Goal: Optimal Comfort and Wellbeing Outcome: Ongoing, Progressing Intervention: Monitor Pain and Promote Comfort Flowsheets (Taken 11/07/2024 2244 by Sindi Porter, RN) Pain Management Interventions: medication (see MAR) Intervention: Provide Person-Centered Care Flowsheets (Taken 11/07/20241999 by Sindi Porter RN) Trust Relationship/Rapport: care explained choices provided [...] technique maintained Taken 11/06/2024 0234 by Pietro Valdovinos RN Fever Reduction/Comfort Measures: lightweight clothing lightweight [...] Plan Flowsheets (Taken 11/07/2024 2244 by Sindi Porter RN) Pain Management Interventions: medication (see MAR) Intervention: Prevent or Manage Pain Flowsheets (Taken 11/07/20241999 by Sindi Porter RN) Sensory Stimulation Regulation: care clustered lighting [...] Feeding Intolerance Flowsheets (Taken 11/07/20241999 by Sindi Porter, RN) Nutrition Support Management: tube feeding held [...] SGT ICU [x] Tertiary 10/31 Transfer to [facility] care 11/04 * Assessment & Plan Note - Comfort Bills APRN, DNP - 11/08/2024 3:07 PM EDT Associated Problem(s): TBI (traumatic brain injury) SAH, IVH NSGY consult DDAVP given at OSH PMR following * Assessment & Plan Note - Comfort Bills APRN, DNP - 11/08/2024 3:07 PM EDT Associated Problem(s): Carotid stenosis 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 and MCA stenosis Resume home meds as [...] EDT Associated Problem(s): CVA (cerebral vascular accident) ([facility]) PMH CVA and R sided deficits [...] debility after stroke earlier this year: recommend Gkmwzxytww78el BID Improved spasticity, however meds causing nausea; discontinue 11/07 * Assessment & Plan Note - RoComfort [...] - 11/08/2024 2:48 PM EDT 11/08/24 [place] HINDS [place] Mata is a 64 [...] CM reports that next available bed at [facility] is on Thursday depending on DHT and TF. If unable to go to [facility], patient and family are acceptable in going to other facilities. Discussed plan of care with patient/family, RN, CM, and Pharm D who is in understanding. No further concerns per patient or nursing. 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 female CSN: [id number] Admission: 10/30/2024 2:57 AM Primary Problem: Fall Anticipated Discharge Date: TBD DHT remains in place. Pt has not had adequate oral intake since cyclic feeds have been DC. Pt states she has N/V. [facility] will not have a bed available until Friday 11[facility]10. [facility] when pt is medically ready. Rani Dodson RN * Consults - Jennifer Slater RD - 11/08/2024 9:46 AM EDT Adult Nutrition Evaluation Note [place] Mata 64 y.o. female CSN: [id number] Room/Bed 116/116A Nutrition evaluation type: follow-up Reason for evaluation: Hospital course: 64 y.o female admitted after fall. OSH found cerebral artery hemmorhage, ad tripodfx of rt eye. Zygomatic arch rx. Plan to extubate. OR 11/01 for ORIF zygomaticomaxillary complex fracture. INBOUND TELEMARKETER recs Easy to chew with thin liquids. [...] (Calculated): 24.26 Weight Evaluation: Overweight (BMI 25-29.9) [place] Body Weight (kg): 52.3 Percent [place] Body Weight: 129 Adjusted Body Weight (kg): [...] Easy to Chew diet - Continue Boost [facility] TID - Will send snacks TID. - [...] labs, and elytes Acuity Level: [address], LD [1] Past Medical History: Diagnosis [...] from the original note were not included. [facility] Department of Otolaryngology-Head and Neck [...] Edited by: Reanna Suggs MD at 11/08/2024 0647 Intake/Output Summary (Last 24 hours) at 11/08/2024 0647 Last data filed at 11/07/20241999 Gross per 24 hour Intake 200 ml Output 300 ml Net -100 ml Lines/Drains/Tubes: Patient Lines/Drains/Airways Status Active Airway None Output by Drain (mL) 11/06/24 07 - 11/06/24 18511/06/24 1900 - 11/07/24 0659 11/07/24 0700 - 11/07/24 1859 11/07/24 190 - 11/08/24 0647 Requested LDAs do not [...] (Principal) Fall Zygomatic arch fracture (CMS/HCC) Overview Addendum 11/06/2024 [...] Doxycycline Present on Admission: Zygomatic arch fracture ([facility]/HCC) Injury of globe of eye, right, initial encounter Fall TBI (traumatic brain injury) (CMS/HCC) Carotid stenosis ABLA (acute blood loss anemia) Hyperglycemia Acute respiratory failure with hypoxia Lactic acidosis Electrolyte abnormality MELISSA (acute kidney injury) ([facility]/HCC) Hypothyroidism Hypertension Hyperlipidemia CVA (cerebral vascular accident) (CMS/HCC) Overweight (BMI 25.0-29.9) Debility Fracture of right orbital floor ([facility]/HCC) Plan: [place] Mata is a 64 y.o. [...] Edited by: Reanna Suggs MD at 11/08/2024 0926 Dispo: ENT will now sign-off Reanna Suggs MD General ENT Adult Inpatient Coverage and New Consults Pediatric ENT Inpatient Coverage and New Consults Head and Neck Cancer/Oncology Inpatient Coverage *If the above links do not work, please either go to the On-Call Finder in [place] for appropriate coverage Cosigned by Yobani Benoit [...] Pain and Promote Comfort Flowsheets (Taken 11/07/2024 2244) Pain Management Interventions: [...] Prevention: activity supervised assistive device/personal items within [facility] fall prevention program maintained clutter-free environment maintained lighting adjusted room organization consistent safety round/check completed Problem: Functional Deficit Goal: Improved Balance and Postural Control Outcome: Ongoing, Not Progressing Intervention: Optimize Balance and Safe Activity Flowsheets (Taken 11/07/20242199) Activity Management: activity adjusted per tolerance Safety Promotion/Fall Prevention: activity supervised assistive device/personal items within [facility] fall prevention program maintained clutter-free environment maintained [...] Develop Pain Management Plan Flowsheets (Taken 11/07/2024 5696) Pain Management Interventions: medication (see MAR) Intervention: [...] 3:03 PM EDT Associated Problem(s): Carotid stenosis 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 and MCA stenosis Resume home meds as appropriate in 2 weeks dt tSAH and IVH * Assessment & Plan Note - Comfort Bills APRN, DNP - 11/07/2024 3:03 PM EDT Associated Problem(s): CVA (cerebral vascular accident) ([facility]) PMH CVA and R sided deficits Resume home meds as appropriate in 2 weeks due to tSAH and IVH * Assessment & Plan Note - Comfort Bills APRN, DNP - 11/07/2024 3:03 PM EDT Associated Problem(s): Debility PT/OT following Recommend ERIKA Possible PM&R consult for 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: recommend [id number] BID Improved spasticity, however meds causing nausea; [...] visual changes. Ophthalmology following. CM reports that [facility] will accept once DHT and TF has been discontinued. Discussed plan of care with patient/family, RN, CM, and Pharm D who is in understanding. No further concerns per patient or nursing. 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 TBI (traumatic brain injury) ([facility]) SAH, IVH NSGY consult DDAVP given at OSH PMR consult for Thursday Carotid stenosis 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 and MCA stenosis Resume home meds as appropriate in 2 weeks dt tSAH and IVH ABLA (acute blood loss anemia) Recheck hemogram and transfuse as necessary Hyperglycemia Likely reactive to trauma, recheck and treat as necessary Did not require insulin while in ICU Acute respiratory failure with hypoxia Extubated 10/31/24 Placed on HFNC on 9/9/25 2L NC Stable on RA Lactic acidosis IVF resuscitation and recheck as necessary Electrolyte abnormality Hypomagnesemia (POA) Hypocalcemia (POA) Replace/treat and recheck as necessary MELISSA (acute kidney injury) ([facility]) Avoid nephrotoxic agents as able and renally dose medications IVF resuscitation as needed Hypothyroidism Resume home meds as appropriate Hypertension Resume home meds as appropriate Hyperlipidemia Resume home meds as appropriate CVA (cerebral vascular accident) ([facility]) PMH CVA and R sided deficits Resume home meds as appropriate in 2 weeks due to tSAH and IVH Overweight (BMI 25.0-29.9) Could complicate hospitalization and mobility Debility PT/OT following Recommend ERIKA Possible PM&R consult for 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: recommend [id number] BID Improved spasticity, however meds causing nausea; discontinue 11/07 Fracture of right orbital floor ([facility]) 11/01: OR with ENT for right orbital floor fracture repair ENT following ; Augmentin x7 days (11/11); Sinus precautions x 2 weeks Erythromycin ointment TID Malnutrition ([facility]) DHT w/TF Discontinue TF and encourage oral [...] -Delirium precautions -PT/OT Discharge Dispo: Subacute Rehab ([facility]) Edited by: Comfort Bills APRN, DNP at [...] Mobility Bed Mobility Exam: Scooting/Bridging Level of [place]: Dependent (scoot to HOB in supine and scoot back on bed in sitting) Physical/Nonphysical Assist: Verbal Cues, Maximal cues, Additional assist utilized for safety Bed Mobility Exam: Supine to Sit Level of [place]: Maximum assist (25% patient's effort) Physical/Nonphysical Assist: Verbal Cues, Nonverbal cues (demo/gestures), Additional assist utilized for safety, HOB elevated, Maximal cues Bed Mobility Exam: Sit to Supine Level of [place]: Maximum assist (25% patient's effort) Physical/Nonphysical Assist: Verbal Cues, Additional assist utilized for safety, Maximal cues, Nonverbal cues (demo/gestures) Transfers Transfer Exam: Sit to stand Level of [place]: Maximum assist (25% patient's effort) Physical/Nonphysical Assist: Verbal Cues, Nonverbal cues (demo/gestures), Additional assist utilized for safety Assistive Device: Hand held assist Transfer Exam: Stand to Sit Level of [place]: Maximum assist (25% patient's effort) Physical/Nonphysical Assist: [...] safety, decrease caregiver burden, and return to [facility] to facilitate a safe transition home. PT [...] environment lacks the necessary adaptive equipment or 24/ supervision, placing the patient at high risk [...] Center 11/21/2024 12:45 PM Navya Woody MD [facility] Mobility Orders Mobility Protocol: Ortho/Trauma/Spine Mobility [...] We will continue to follow. Please page [phone] with any questions, or resident on-call if [...] saw and evaluated the patient with the medical/CONTRACT DESIGNER/PA student. I discussed the case with the medical/CONTRACT DESIGNER/PA student and agree with the findings and [...] Note [place]ia Mata 64 y.o. female CSN: [id number] Admission: 10/30/2024 2:57 AM Primary Problem: Fall Anticipated Discharge Date: 11/10/24 Cyclic feeds DC but DHT remains in place. Pt was previously accepted by [facility] but the bed wasgiven away since pt was not medically ready. [place] with [facility] will let CM know [...] adjusted Intervention: Prevent Skin Injury Flowsheets Taken 11/06/20242199 Body Position: turned left Taken 11/06/20241999 Skin [...] 11:27 AM EDT Associated Problem(s): Carotid stenosis Test And Balance Engineer and mca stenosis Resume home meds as [...] debility after stroke earlier this year: recommend [id number] BID * Progress Notes - Jenny Miller APRN - 11/06/2024 11:26 AM EDT 11/06/24 [place] Adolfo HINDS [place] Mata is a 64 y/o F [...] Thursday Carotid stenosis Present on Admission: Yes Test And Balance Engineer and mca stenosis Resume home meds as [...] debility after stroke earlier this year: recommend [id number] BID Fracture of right orbital floor (CMS/HCC) [...] -Delirium precautions - PT/OT Discharge dispo: ERIKA ([facility]) Edited by: Jenny Miller APRN at 11/06/2024 1128 Jenny Miller APRN * Care Plan - Pietro Valdovinos RN - 11/06/2024 2:39 AM EDT Problem: Adult Inpatient Plan of Care Goal: Plan of Care Review Outcome: Ongoing, Progressing Flowsheets (Taken 11/06/2024233) Progress: improving Plan of Care Reviewed With: [...] Ongoing, Progressing Intervention: Prevent Infection Flowsheets (Taken 11/06/2024233) Infection Prevention: equipment surfaces disinfected hand hygiene [...] Progressing Intervention: Minimize Aspiration Risk Flowsheets (Taken 11/06/2024 0234) Enteral Feeding Safety: placement checked Oral Care: [...] 10:42 AM EDT Associated Problem(s): Carotid stenosis Test And Balance Engineer and mca stenosis Resume home meds as [...] EDT Associated Problem(s): CVA (cerebral vascular accident) ([facility]) PMH CVA and R sided deficits [...] debility after stroke earlier this year: recommend Gmbnytydue61re BID * Progress Notes - Jenny Miller APRN - 11/05/2024 10:41 AM EDT 11/05/24 [place] HINDS Alban[place] Mata is a 64 y/o F [...] Discussed plan of care with patient/family, attending, LORENZO, RN, consulting teams. No further concerns at [...] Airway None Output by Drain (mL) 11/03/24 0700 - 11/03/24 1859 11/03/24 1900 - 11/04/24 0659 11/04/24 07 - 11/04/24 1859 11/04/24 1900 - 11/05/24 [...] Thursday Carotid stenosis Present on Admission: Yes Test And Balance Engineer and mca stenosis Resume home meds as [...] debility after stroke earlier this year: recommend Caalfutrzx71ko BID Fracture of right orbital floor (CMS/HCC) Present on Admission: Unknown 11/01: OR with ENT for right orbital floor fracture repair ENT following Plan: -MMPC - Augmentin and erythromycin for her eye purulence; ophtho following -DHT w/TF; d/c once tolerating 50% meals -Pulm Hygiene -Bowel reg -Sinus precautions -Delirium precautions - PT/OT Discharge dispo: [facility] ([facility]) Edited by: Jenny Miller APRN at 11/05/2024 1041 Jenny Miller APRN * Care Plan - Jelly Clay, RN - 11/05/2024 10:18 AM EDT Problem: Adult Inpatient Plan of Care Goal: Plan of Care Review 11/05/2024 1019 by Jelly Clay, RN Outcome: Ongoing, Progressing Flowsheets (Taken 11/03/2024 [...] or Concerns: pain 11/05/2024 1018 by Jelly Clay RN Outcome: Ongoing, Progressing Goal: Absence of Hospital-Acquired Illness or Injury 11/05/2024 101 by Jelly Clay RN Outcome: Ongoing, Progressing 11/05/2024 101 by Jelly Clay RN Outcome: Ongoing, Progressing Intervention: Prevent Infection Flowsheets (Taken 11/01/20241999 by Javi Frank, LUANNE) Infection Prevention: environmental surveillance performed Goal: Optimal Comfort and Wellbeing 11/05/2024 101 by Jelly Clay RN Outcome: Ongoing, Progressing 11/05/2024 1018 by Jelly Clay RN Outcome: Ongoing, Progressing Intervention: Provide Person-Centered Care Flowsheets (Taken 11/01/20241999 by Javi Frank, LUANNE) Trust Relationship/Rapport: care explained choices provided emotional [...] adjusted per tolerance Taken 11/01/20241999 by Javi Frank RN Self-Care [...] assistance, 2 people Taken 11/01/20241999 by Javi Frank, RN Self-Care Promotion: independence encouraged Goal: Improved Muscle Tone 11/05/2024 1019 by Jelly Clay RN Outcome: Ongoing, Progressing 11/05/2024 1018 by Jelly Clay RN Outcome: Ongoing, Progressing Goal: Optimal Range of Motion 11/05/2024 1019 by Jelly Clay RN Outcome: Ongoing, Progressing 11/05/2024 1018 by Jelly Clay RN Outcome: Ongoing, Progressing Intervention: Maintain Functional Joint Range Position Flowsheets Taken 11/05/2024 0600 by Elizabeth Spencer RN Range of Motion: [...] by Jelly Clay RN Outcome: Ongoing, Progressing * Care Plan [...] Pain and Promote Comfort Flowsheets (Taken 11/04/2024 2150) Pain Management Interventions: medication (see MAR) Intervention: [...] the bedside, plan to transport her to [facility] by car on this day at 1630. Family and patient are agreeable to the plan. No further questions or concerns per patient parole supervisor. Physical therapy and occupational therapy evaluated the patient during hospitalization and recommend Subacute Rehab. At the time of discharge the patient was hemodynamically stable, tolerating PO, voiding spontaneously, normal bowel function, mobilizing appropriately, with their pain controlled with PO medication. At this time, the patient has obtained the maximum benefit from the present hospital stay, and so will be discharged to [facility]. DVT prophylaxis: Hold AC/AP for 2 weeks [...] will call with appointment date and time. [address] [place] [address], Third Floor, Wing C, [place] [address] # [phone] Ophtho: Follow up 11/21 @ 12:25. [facility] [address] [facility], [address] [place] [address] #[phone] Neurosurgery: Clinic will contact with appointment date and time, [address] [place] [address], First Floor, Wing C, [address], [place] [address], SGT: ALKA Thursday Clinic as needed ; 0 [facility] First Floor, Wing D [address] [address], #[phone]. Questions or Concerns and Appointments If there are questions or concerns after discharge from the hospital, please call [phone] and ask for [facility] Nurse. Working hours are Thursday - Thursday 8:00 AM to 4:00 PM. After hours, weekends and holidays please call [phone] and ask for the resident data control clerk for [facility]. For appointments please call [phone]. Medication requests should be made between the hours of 9:00 AM to 3:00 PM Thursday thru Thursday. Please note that based upon recent changes to [place] law related to prescribing opioid pain medications, our providers will not provide refills on controlled medications after your hospital discharge following a major surgery or trauma. [place], [place] 201 KAR9:260. * Transfer of Care - Keri Patel MD - 11/04/2024 4:40 PM EDT Blue Surgery Transfer Note Patient is being transferred from T ICU to [facility] on 11/04/24 Reason for transfer: Downgrade [...] Date Noted Fracture of right orbital floor ([facility]) 11/03/2024 Debility 11/02/2024 Overweight (BMI 25.0-29.9) 10/31/2024 Zygomatic arch fracture ([facility]) 10/30/2024 Injury of globe of eye, right, initial encounter 10/30/2024 Fall 10/30/2024 TBI (traumatic brain injury) ([facility]) 10/30/2024 Carotid stenosis 10/30/2024 ABLA (acute blood loss anemia) 10/30/2024 Hyperglycemia 10/30/2024 Acute respiratory failure with hypoxia 10/30/2024 Lactic acidosis 10/30/2024 Electrolyte abnormality 10/30/2024 MELISSA (acute kidney injury) ([facility]) 10/30/2024 Hypothyroidism 10/30/2024 Hypertension 10/30/2024 Hyperlipidemia 10/30/2024 CVA (cerebral vascular accident) ([facility]) 10/30/2024 Antibiotics: amoxicillin-clavulanate Indication and duration: - [...] exam X 15% Respiratory rate 22 13% [place] coma scale 14 4% Hematocrit abnormal (25.5 [...] Raines Body Position: turned right Taken 11/04/2024 0200 by Manuelito Angeles Skin [...] Intake Flowsheets (Taken 10/31/2024 181 by Danitza Méndez RN) Oral Nutrition Promotion: [...] out of bed Taken 11/01/20241999 by Javi Frank, RN Self-Care [...] assistance, 2 people Taken 11/01/20241999 by Javi Frank, RN Self-Care Promotion: independence encouraged Goal: Improved [...] Note [place]ia Mata 64 y.o. female CSN: [id number] Admission: 10/30/2024 2:57 AM Primary Problem: Fall Anticipated Discharge Date: TBD Pt has been accepted to rehab at [facility]. Pt/family agreeable. Per liaison, pt will need to be stable off IV pain meds for 24/hrs prior to beginning pre- cert. Will also need feeding tube removed.Will reevaluate on Thursday for readiness. Jeane Cowan, RN CARDIAC, STEREO EQUIPMENT INSTALLER Trauma/General Surgery ICU * Consults - Nahed Zarco RD - 11/04/2024 10:20 AM EDT Adult Nutrition Evaluation Note [place] Mata 64 y.o. female CSN: [id number] Room/Bed 239/239A Nutrition evaluation type: follow-up Reason for evaluation: Hospital course: 64 y.o female admitted after fall. OSH found cerebral artery hemmorhage, ad tripodfx of rt eye. Zygomatic arch rx. Plan to extubate. OR 11/01 for ORIF zygomaticomaxillary complex fracture. INBOUND TELEMARKETER recs Easy to chew with thin liquids. [...] Supplemental oxygen O2 Delivery Method: Nasal cannula [place] Coma Scale Score: 13 Denis Scale Score: [...] (Calculated): 26.41 Weight Evaluation: Overweight (BMI 25-29.9) [place] Body Weight (kg): 52.3 Percent [place] Body Weight: 129 Adjusted Body Weight (kg): [...] Easy to Chew diet - Continue Boost [facility] TID - TF Recs: Cyclic 50% of [...] Intake/Output 11/05/24 0601 - 11/06/24 0600 11/06/24 0601 - 11/07/24 0600 Intake P[address] 360 -- [...] 7:05 AM EDT Associated Problem(s): Carotid stenosis Test And Balance Engineer and mca stenosis Resume home meds as [...] EDT Associated Problem(s): CVA (cerebral vascular accident) ([facility]) PMH CVA and R sided deficits [...] debility after stroke earlier this year: recommend [id number] BID * Assessment & Plan Note - [...] ICU Daily Progress Note 11/04/24 [place] Mata GUZMAN [place] Mata is a 64 y/o F [...] Edited by: Keri Patel MD at 11/04/2024 5220 Relevant review of systems was obtained as [...] by Drain (mL) 11/02/24 07 - 11/02/24 18511/02/24 1900 - 11/03/24 0659 11/03/24 0700 - 11/03/24 18511/03/24 1900 - 11/04/24 0659 11/04/24 0700 - [...] OSH Carotid stenosis Present on Admission: Yes Test And Balance Engineer and mca stenosis Resume home meds as [...] debility after stroke earlier this year: recommend Gszlvikems73er BID Fracture of right orbital floor (CMS/HCC) [...] Edited by: Keri Patel MD at 11/04/2024 2069 Keri Patel MD Critical Care Performed by: [...] Aggressive pulmonary toilet. On goal tube feeds. INBOUND TELEMARKETER evaluated and cleared for diet but PO [...] Review Outcome: Ongoing, Not Progressing Flowsheets (Taken 11/03/2024345 by Phoenix Crump) Progress: improving Plan of [...] Intervention: Prevent Infection Flowsheets (Taken 11/01/20241999 by Frank, Karys L, RN) Infection Prevention: environmental surveillance performed Goal: [...] (HOB) Positioning: HOB at 30-45 degrees Taken 11/03/20241199 by Emanuel Villavicencio RN Activity Management: back to bed Taken 11/01/20241999 by Javi Frank RN Pressure Reduction Techniques: frequent weight shift encouraged Skin Protection: incontinence pads utilized Taken 11/01/2024 0849 by Felicia Miller RN Pressure Reduction Devices: heel offloading device utilized positioning supports utilized Intervention: Promote and Optimize Oral Intake Flowsheets (Taken 10/31/20241816 by Danitza Méndez, LUANNE) Oral Nutrition Promotion: other (see comments) Nutrition [...] [place] Safety Promotion/Fall Prevention: activity supervised Taken 11/03/20241199 by Emanuel Villavicencio RN Activity Management: back [...] assistance, 2 people Taken 11/01/20241999 by Javi Frank, LUANNE Self-Care Promotion: independence encouraged Goal: Improved Muscle [...] PM EDT Associated Problem(s): Zygomatic arch fracture ([facility]) 11/01: OR with ENT for ORIF [...] 6:35 PM EDT Associated Problem(s): Carotid stenosis Test And Balance Engineer and mca stenosis Resume home meds as [...] EDT Associated Problem(s): CVA (cerebral vascular accident) ([facility]) PMH CVA and R sided deficits [...] debility after stroke earlier this year: recommend [id number] BID * Assessment & Plan Note - Micheal Espinoza MD - 11/03/2024 6:35 PM EDT Associated Problem(s): Fracture of right orbital floor 11/01: OR with ENT for right orbital floor fracture repair * Progress Notes - Reanna Suggs MD - 11/03/2024 2:47 PM EDT Images from the original note were not included. [facility] Department of Otolaryngology-Head and Neck [...] Airway None Output by Drain (mL) 11/01/24 0700 - 11/01/24 1859 11/01/24 1900 - 11/02/24 0659 11/02/24 07 - 11/02/24 1859 11/02/24 1900 - 11/03/24 0659 11/03/24 0700 - 11/03/24 1447 Requested LDAs do not [...] canthotomy at OSH TBI (traumatic brain injury) ([facility]/HCC) Carotid stenosis ABLA (acute blood loss anemia) [...] acidosis Electrolyte abnormality MELISSA (acute kidney injury) ([facility]/HCC) Hypothyroidism Hypertension Hyperlipidemia CVA (cerebral vascular accident) (CMS/HCC) Overweight (BMI 25.0-29.9) Debility Plan: [place] Mata [...] Edited by: Reanna Suggs MD at 11/03/2024 4632 Dispo: ENT will continue to follow Reanna Suggs MD General ENT Adult Inpatient Coverage and New Consults Pediatric ENT Inpatient Coverage and New Consults Head and Neck Cancer/Oncology Inpatient Coverage *If the above links do not work, please either go to the On-Call Finder in [place] for appropriate coverage Cosigned by Yobani Benoit MD at 11/03/2024 4:02 PM EDT * Clinician Note - Claudia Guerrero PT - 11/03/2024 2:38 PM EDT Physical Therapy Attempt Patient Name: [place]ia Mata Today's Date: 11/03/2024 Patient was attempted to be seen by physical therapy 11/03/2024 for PT Treatment however bedside care in progress (INBOUND TELEMARKETER). Physical therapy team will follow-up as schedule [...] cannula Output by Drain (mL) 11/01/24699 - 11/01/24185811/01/241899 - 11/02/24 0659 11/02/24 07 - 11/02/24 18511/02/241899 - 11/03/2459 11/03/24699 - 11/03/24 1835 Requested LDAs do [...] OSH Carotid stenosis Present on Admission: Yes Test And Balance Engineer and mca stenosis Resume home meds as [...] debility after stroke earlier this year: recommend Qwjbibomft70an BID Fracture of right orbital floor (CMS/HCC) [...] Edited by: Manisha Maxwell PA at 11/03/2024 1834 ANDREI Quiles Critical Care Performed by: Micheal [...] 11/03/2024 10:35 AM EDT Pastoral Care Note Furniture Upholstery Mechanic visited with patient and family, sister and niece, at bedside and provided emotional support and a prayer per family request. Pastoral care will continue to be available as needed. Referral From: Furniture Upholstery Mechanic Initiated Pastoral Care Provided For: Patient, Sibling(s), Extended family Patient Profile: Consult Reasons: Emotional support, Family support Spiritual Assessment: Support Systems/ Spiritual Resources: [place], Family, Prayer Spiritual Needs: Emotional support, Prayer, Spiritual support Spiritual Issues: Trauma/ crisis Interventions: Interventions Provided: Emotional support, Family support, Prayer, Identify zoroastrianism/ spiritual coping, Introduced Patient/Family to Furniture Upholstery Mechanic Services, Supportive Listening, Spiritual support Pastoral Care Outcomes: Patient Outcomes: Demonstrates lower level of Anxious(ness), Is knowledgeable about Shrimp Boat Captain Services, Identifies spiritual or zoroastrianism practices as helpful, Appreciative of Furniture Upholstery Mechanic Support * Consults - Malaika Carol Ann - 11/03/2024 7:52 AM EDTAssociated Order(s): IP CONSULT TO PHYSICAL MEDICINE REHAB PHYSICAL MEDICINE & REHABILITATION INPATIENT CONSULT NOTE Patient: Albania Mata : 1960 PCP: Aman Hernandez MD at [address] [address] / [facility] [id number] Payor: [employer] MEDICARE / Plan: [employer] MEDICARE [...] Children: 2 Previous Residence: lives alone in [place], [place] in a one story house with [...] patient's stroke in June she went to [facility] until August. After discharge, she had 24/7 [...] Abnormal Ventricular Rate 85 Atrial Rate 85 TN Interval 146 QRSD Interval 84 QT Interval 394 QTC Interval 468 P [place] 82 R [place] 51 T Wave [place] 184 Diagnosis Poor data quality, interpretation may be adversely affected Diagnosis Normal sinus rhythm Diagnosis Possible Left atrial enlargement Diagnosis Possible Anterior infarct , age undetermined Diagnosis T wave abnormality, consider inferolateral ischemia Diagnosis Abnormal ECG Diagnosis Need clinical information and correlation Diagnosis Confirmed by Tristan Cooper ([id number]) on 10/30/2024 12:08:55 PM *Note: Due to a large number of results and/or encounters for the requested time period, some results have not been displayed. A complete set of results can be found in Results Review. Current diet (full): Dietary Orders (From admission, onward) Start Ordered 11/02/24 1181 Adult diet Diet texture: Easy to Chew [...] Center 11/21/2024 12:45 PM Navya Woody MD [facility] Mobility Orders Mobility Protocol: Ortho/Trauma/Spine Mobility [...] We will continue to follow. Please page [phone] with any questions, or resident on-call if [...] saw and evaluated the patient with the medical/CONTRACT DESIGNER/PA student. I discussed the case with the medical/CONTRACT DESIGNER/PA student and agree with the findings and [...] Note Albania Mata 64 y.o. female CSN: [id number] Admission: 10/30/2024 2:57 AM Primary Problem: Fall Anticipated Discharge Date: TBD Pt is with subacute rehab recs. SW presented to bedside to discuss with pt, pt was receiving bedside care at that time. SW discussed rehab recs with family who were waiting outside pt's room. Pt's son stated that family is agreeable to rehab at [facility], [facility], [facility]. Referrals sent on this date. SW/CM will continue to follow for resource needs and dispo p coretta. Jeane Cowan MSW, STEREO EQUIPMENT INSTALLER Trauma/General Surgery ICU * Progress Notes - Renetta Mascorro, CCC-INBOUND TELEMARKETER - 11/02/2024 3:00 PM EDT Speech Language [...] no effort is made to eject. (Gin Mcgowan, et al. A penetration-aspiration scale. Dysphagia. 1996;11(2):93-8.) [...] retraction * Progress Notes - Bridgett Cha - 11/02/2024 2:20 PM EDT Occupational Therapy Treatment Patient Name: Albania Mata Today's Date: 11/02/2024 OT Discharge Recommendations: Subacute rehab Equipment Recommended: Defer to facility Subjective Brother and son very supportive at b/s, pt repeatedly asking when she will be able to return home Participants in Care Family/Caregiver Present: Yes Family/Caregiver: Adult Son, Other (Specify) (brother) Clay Artisan: Not Applicable Presentation Oxygen Therapy: Supplemental oxygen [...] into standing with max assist x 2 (FOOD TASTER x 2) with max cues for b/l hand and feet placement, pt was then transferred over to b/s chair, pt with significant difficulty weight shifting and advancing LE's forward - ultimately requiring max assist x 2 (FOOD TASTER x 2), once in chair additional time [...] at times, pt able to transfer to [facility] chair with max assist x 2 (FOOD TASTER x 2) however mobility limited due to [...] execute a self care routine, family at [facility] are incredibly supportive to pt and will [...] 2:18 PM EDT Associated Problem(s): Carotid stenosis Test And Balance Engineer and mca stenosis Resume home meds as [...] EDT Associated Problem(s): CVA (cerebral vascular accident) ([facility]) PMH CVA and R sided deficits [...] in exam. * Progress Notes - Radha Huff CCC-INBOUND TELEMARKETER - 11/02/2024 11:40 AM EDT Speech Language [...] Positionin-90 degrees Feeding assistance: total assistance from INBOUND TELEMARKETER or caregiver Consistencies Administered: ice chips, thin liquid via teaspoon, and thin liquid via cup Risk Factors: Intubation (prolonged >48 hrs, multiple) w/dysphonia and Elevated oxygenation needs Sowmya Swallow Protocol (Ed and Dylan, 2014) - 3 Oz water challenge: not [...] by mouth Goals MBSS. Radha Huff M.A., CCC-INBOUND TELEMARKETER Speech-Language Pathologist * Progress Notes - Micheal [...] Edited by: Keri Patel MD at 11/02/2024 0913 Relevant review of systems was obtained [...] Airway None O2 Delivery Method: Nasal cannula TN SUP: 10 cm H20 Insp Time (sec): 2 sec FiO2 (%): 40 % S RR: 8 TN SUP: 10 cm H20 Output by Drain (mL) 10/31/24 07 - 10/31/24 1859 10/31/24 190 - 11/01/24 0659 11/01/24 07 - 11/01/24 1859 11/01/24 190 - 11/02/24 0659 11/02/24 07 - [...] Results from last 7 days Lab Units 11/01/24 1809 10/31/24 2349 10/30/24 2311 HEMOGLOBIN g/dL 9.4* 8.1* 9.2* HEMATOCRIT % 30.8* 26.5* 29.8* INR Cr Results from last 7 days Lab Units 11/01/24 18010/31/24 2349 10/30/24 2311 CREATININE mg/dL 0.78 0.80 0.99 Radiology: [...] OSH Carotid stenosis Present on Admission: Yes Test And Balance Engineer and mca stenosis Resume home meds as [...] at noon postop labs okay DC A-line INBOUND TELEMARKETER eval Downgrade Edited by: Keri Patel MD [...] MD at 11/02/2024 0638 I/O: Intake/Output 11/01/24 0601 - 11/02/24 0600 11/02/24 0601 - 11/03/24 [...] Edited by: Vidal Ivey MD at 11/02/2024 5695 Vidal Ivey MD [1] acetaminophen, 1,000 mg, [...] 75 mL/hr, Last Rate: 75 mL/hr (11/01/24 2355) [3] PRN medications: hydrALAZINE, HYDROmorphone OR HYDROmorphone, [...] PM EDT Operative Note Date: 11/01/24 Location: [place] [facility] Name: Albania Mata DOB: 1960, Diagnoses: Pre-op Diagnosis Closed fracture of right zygomatic arch, initial encounter ([facility]) Post-op Diagnosis Closed fracture of right zygomatic arch, initial encounter ([facility]) Procedure(s): Open reduction internal fixation right ZMC fracture Right orbital floor fracture repair Attending Surgeon(s): Yobani Espinosa - Primary Hosiery Operator(s): * Raquel Paiz MD - Resident - Assisting Anesthesia: General ASA: III Blood Administration: Blood Product Administration History Date Volume Status Transfuse platelets 10/30/2024 Completed 10/30/2491210/30/2024 230 mL Completed 10/30/2414 Estimated Blood Loss: Minimal Drains: Urethral Catheter (Active) Site Assessment Clean;Skin intact 11/01/24 155 CAUTI: Collection Container Standard drainage bag 11/01/24 155 CAUTI: Securement Method Securing device (Describe) 11/01/24 155 CAUTI: Specimen Collection Port Covered with Alcohol Cap Yes 11/01/24 0800 CAUTI: Urinary Catheter Indication Yes, meets indication reason 11/01/241554 CAUTI: Urinary Catheter Indication Reasons ICU patient requiring output monitoring q 1-2 hours withinterventions 11/01/24 0800 Output (mL) 45 mL 11/01/24 1600 Implants Type Name Action Serial No. Implant BARRIER FLOOR AND WALL - [id number] - [id number] Implanted Specimen: None Findings: Right ZMC fracture repaired with a midface places along orbital rim and anterior face of maxillary sinus Right infraorbital nerve identified and preserved Right orbital floor blowout fracture repaired with SynPOR prosthesis Indications: Albania Mata is an 64 y.o. female who is having surgery for Closed fracture of rightzygomatic arch, initial encounter ([facility]). Narrative: After informed consent was obtained [...] 10:42 AM EDT Associated Problem(s): Carotid stenosis Test And Balance Engineer and mca stenosis Resume home meds as [...] EDT Associated Problem(s): CVA (cerebral vascular accident) ([facility]) PMH CVA and R sided deficits [...] from the original note were not included. [facility] Department of Ophthalmology Ophthalmology Progress Note Exam [...] abnormality Periphery Attached Attached Assessment/Plan: #Orbital fractures / fall - Pt presents / fall, found to have right tripod fracture [...] Care Review Outcome: Ongoing, Progressing Flowsheets (Taken 11/01/2024848) Progress: improving Plan of Care Reviewed With: patient child Goal: Patient-Specific Goal (Individualized) Outcome: Ongoing, Progressing Flowsheets (Taken 11/01/2024799) Patient/Family-Specific Goals (Include Timeframe): pt will adequate pain control throughout the shift Individualized Care Needs: pain management, movement Anxieties, Fears or Concerns: pain Goal: Absence of Hospital-Acquired Illness or Injury Outcome: Ongoing, Progressing Goal: Optimal Comfort and Wellbeing Outcome: Ongoing, Progressing Intervention: Monitor Pain and Promote Comfort Flowsheets (Taken 11/01/2024848) Pain Management Interventions: medication (see MAR) pillow [...] Progressing Intervention: Optimize Muscle Strength Flowsheets (Taken 11/01/2024 0849) Activity Management: activity adjusted per tolerance activity encouraged Activity Assistance Provided: assistance, 2 people Self-Care Promotion: independence encouraged Goal: Improved Muscle Tone Outcome: Ongoing, Progressing Goal: Optimal Range of Motion Outcome: Ongoing, Progressing Goal: Compensation for Sensory Deficit Outcome: Ongoing, Progressing Intervention: Optimize Sensory Function Flowsheets Taken 11/01/2024 0849 Pressure Reduction Techniques: frequent weight shift encouraged heels elevated off bed Sensation Impairment Protection: insensate areas closely monitored Taken 11/01/2024 0800 Skin Protection: silicone foam dressing in place [...] Please call with any questions or concerns. [phone] Robbin Nielson MD Resident Physician, PGY-2 Department of Neurosurgery [facility] Cosigned by Barney Osman MD at 11/01/2024 [...] approval. If so, hold TF today vs Thu midnight. - Sinus Precautions #Facial laceration - [...] by: Vidal Ivey MD at 11/01/2024 0743 Vidal Ivey MD [1] acetaminophen, 1,000 mg, [...] ICU Daily Progress Note 11/01/24 [place] Mata [facility] Albania Mata is a 64 y/o F [...] (%): 70 % Output by Drain (mL) 10/30/24 07 - 10/30/24185810/30/241899 - 10/31/24 0659 10/31/24 07 - 10/31/24 18510/31/24 190 - 11/01/24 0659 11/01/24 07 - [...] Results from last 7 days Lab Units 10/31/24234810/30/24 23110/30/24 1125 HEMOGLOBIN g/dL 8.1* 9.2* 10.4* HEMATOCRIT % 26.5* 29.8* 33.5* INR Cr Results from last 7 days Lab Units 10/31/24 23410/30/24 23110/30/24 1125 CREATININE mg/dL 0.80 0.99 1.12* Radiology: [...] OSH Carotid stenosis Present on Admission: Yes Test And Balance Engineer and mca stenosis Resume home meds as [...] Identify and Manage Fall Risk Flowsheets (Taken 11/01/2024631) Safety Promotion/Fall Prevention: activity supervised Intervention: Prevent Skin Injury Flowsheets Taken 11/01/2024631 Skin Protection: transparent dressing maintained silicone foam dressing in place incontinence pads utilized pulse oximeter probe site changed Taken 11/01/2024 0400 Body Position: turned heels elevated Intervention: Prevent and Manage VTE (Venous Thromboembolism) Risk Flowsheets (Taken 11/01/2024 0400) VTE Prevention/Management: bilateral lower extremity SCDs (sequential compression devices) on Intervention: Prevent Infection Flowsheets (Taken 11/01/2024631) Infection Prevention: environmental surveillance performed single patient [...] Progressing Intervention: Optimize Cognitive Function Flowsheets (Taken 11/01/2024 0632) Sensory Stimulation Regulation: quiet environment promoted Environment Familiarity/Consistency: daily routine followed Self-Care Promotion: independence encouraged Goal: Optimal Coordination Outcome: Ongoing, Progressing Intervention: Optimize Motor Coordination and Function Flowsheets (Taken 11/01/2024 0632) Self-Care Promotion: independence encouraged Goal: Improved Muscle Strength Outcome: Ongoing, Progressing Intervention: Optimize Muscle Strength Flowsheets (Taken 11/01/2024 0632) Activity Management: activity adjusted per tolerance Self-Care Promotion: independence encouraged Goal: Improved Muscle Tone Outcome: Ongoing, Progressing Goal: Optimal Range of Motion Outcome: Ongoing, Progressing Intervention: Maintain Functional Joint Range Position Flowsheets (Taken 11/01/2024 06) Range of Motion: active ROM (range of [...] Protection: silicone foam dressing in place Taken 10/31/2024 1600 Body Position: turned Intervention: Prevent and Manage VTE (Venous Thromboembolism) Risk Flowsheets (Taken 10/31/2024 1600) VTE Prevention/Management: bilateral SCDs (sequential compression devices) on Intervention: Prevent Infection Flowsheets (Taken 10/31/2024 181) Infection Prevention: single patient room provided rest/sleep promoted Goal: Optimal Comfort and Wellbeing Outcome: Ongoing, Progressing Intervention: Monitor Pain and Promote Comfort Flowsheets (Taken 10/31/2024 0445 by Baron Vo) Pain Management Interventions: position adjusted pillow support provided Intervention: Provide Person-Centered Care Flowsheets (Taken 10/30/2024 08 by Earline Ridley RN) Trust Relationship/Rapport: care explained questions answered Problem: Skin Injury Risk Increased Goal: Skin Health and Integrity Outcome: Ongoing, Progressing Intervention: Optimize Skin Protection Flowsheets Taken 10/31/20241816 Skin Protection: silicone foam dressing in place Taken 10/31/2024 1600 Activity Management: activity adjusted per tolerance Head of Bed (HOB) Positioning: HOB at 30-45 degrees Intervention: Promote and Optimize Oral Intake Flowsheets (Taken 10/31/20241816) Oral Nutrition Promotion: other (see comments) Nutrition Interventions: diet adjusted Note: Tube feeds * Progress Notes - Bridgett Cha - 10/31/2024 4:48 PM EDT Occupational Therapy [...] Family/Caregiver: Adult Son, Other (Specify) (brother, niece) Clay Artisan: Not Applicable Presentation Oxygen Therapy: Supplemental oxygen [...] chair Home Living Comments: Pt went to [facility] following CVA in June 2024. Since then, Pt has had 24/ assistance from family at home. Prior Level of Function Receives Help From: (Family) Level of Mobility: Ambulatory- household only (primarily household since CVA, occasional trips to grocery store) Mobility [place]: Independent gait with device (rolling walker) History [...] lethargy Bed Mobility Exam: Scooting/Bridging Level of [place]: Maximum assist (25% patient's effort) Physical/Nonphysical Assist: Verbal Cues, Nonverbal cues (demo/gestures), Additional assist utilized for safety Bed Mobility Exam: Supine to Sit Level of [place]: Dependent Physical/Nonphysical Assist: Verbal Cues, Nonverbal cues (demo/gestures), Additional assist utilized for safety Bed Mobility Exam: Sit to Supine Level of [place]: (pt was left seated OOBTC) Transfers Transfer Interventions: pt was instructed on b/l hand and feet placement when transitioning to upright, pt with overall fair carryover, pt with noted to have mild/moderate increase tone throughout right LE- limiting pt's ability to transition to upright Transfer Exam: Sit to stand Level of [place]: Maximum assist (25% patient's effort) (x2) Physical/Nonphysical Assist: Verbal Cues, Nonverbal cues (demo/gestures), Additional assist utilized for safety Assistive Device: Hand held assist Transfer Exam: Stand to Sit Level of [place]: Maximum assist (25% patient's effort) (x2) Physical/Nonphysical Assist: Verbal Cues, Nonverbal cues (demo/gestures), Additional assist utilized for safety Assistive Device: Hand held assist Transfer Exam: Bed to Chair/Chair to Bed Level of [place]: Maximum assist (25% patient's effort) (x2) Physical/Nonphysical [...] Standing - Interventions: max assist x 2 (FOOD TASTER x 2), pt with liimited weight bearing throughout right LE due to increase tone Dynamic Standing Balance Dynamic Standing-Balance Support: Right upper extremity support, Left upper extremity support Dynamic Standing Level of Assistance: Maximum assistance Dynamic Standing - Interventions: pt required max assist x 2 (FOOD TASTER x 2) stand pivot sit transfer to [...] as pt's son, niece, and brother at [facility], prior to pt's CVA in spring pt was completely independent and independently living alone, son reports after stroke pt went to [facility] for 1 week prior to discharging to [...] and most all self cares, family at [facility] extremely supportive of pt, all quesions were [...] at 4:49 PM. * Progress Notes - Monae Sommers - 10/31/2024 3:14 PM EDT Physical Therapy [...] disc disease, Hyperlipidemia, Hypertension, Neuropathy, and Stroke ([facility]). Past Surgical History Patient has a past surgical history that includes Replacement total hip lateral position; Lung surgery; Tonsillectomy; oral surgery; Carotid stent; and Renal artery stent. Precautions Medical Precautions: Fall precautions, Sinus Subjective Pt and family agreeable to PT. Participants in Care Family/Caregiver Present: Yes Family/Caregiver: Adult Son, Other (Specify) (brother, niece) Clay Artisan: Not Applicable Presentation Oxygen Therapy: Supplemental oxygen [...] chair Home Living Comments: Pt went to [facility] following CVA in June 2024. Since then, Pt has had 24/ assistance from family at home. Prior Level of Function Receives Help From: (Family) Level of Mobility: Ambulatory- household only (primarily household since CVA, occasional trips to grocery store) Mobility [place]: Independent gait with device (rolling walker, wears [...] following. Bed Mobility Exam: Scooting/Bridging Level of [place]: Maximum assist (25% patient's effort) Physical/Nonphysical Assist: Verbal Cues, Nonverbal cues (demo/gestures), Additional assist utilized for safety Bed Mobility Exam: Supine to Sit Level of [place]: Dependent Physical/Nonphysical Assist: Verbal Cues, Nonverbal cues [...] Transfer Exam: Sit to stand Level of [place]: Maximum assist (25% patient's effort) Physical/Nonphysical Assist: Verbal Cues, Nonverbal cues (demo/gestures), Additional assist utilized for safety Assistive Device: Hand held assist Transfer Exam: Stand to Sit Level of [place]: Maximum assist (25% patient's effort) Physical/Nonphysical Assist: Verbal Cues, Nonverbal cues (demo/gestures), Additional assist utilized for safety Assistive Device: Hand held assist Transfer Exam: Bed to Chair/Chair to Bed Level of [place]: Maximum assist (25% patient's effort) Physical/Nonphysical Assist: [...] recommendations. Standardized Assessments Standardized Assessments Standardized Assessments: [facility] 6-Clicks Mobility Assessment [facility] 6-Clicks Mobility Assessment Difficulty patient has turning [...] climbing 3-5 steps with a railing?: Unable [facility] 6-Clicks Mobility Assessment Total : 10 Assessment [...] discharge recommendations. 2 weeks Written by Monae Somemrs on 10/31/24 at 5:03 PM. * Care [...] the patient's medical record. * Consults - Back, Nahed Richardson RD - 10/31/2024 11:28 AM EDT Adult Nutrition Evaluation Note [place]ia Mata 64 y.o. female CSN: [id number] Room/Bed 239/239A Nutrition evaluation type: assessment Reason for evaluation: [facility] Hospital course: 64 y.o female admitted after [...] (Calculated): 26.41 Weight Evaluation: Overweight (BMI 25-29.9) [place] Body Weight (kg): 52.3 Percent [place] Body Weight: 129 Adjusted Body Weight (kg): [...] Interventions and Recommendations: - PO diet per INBOUND TELEMARKETER - TF Recs: - Impact Peptide 1.5 [...] chloride * Progress Notes - Jeane Cowan 10/31/2024 10:54 AM EDT Case Management Adult Initial Progress Note [place] Mata 64 y.o. female CSN: [id number] Admission: 10/30/2024 2:57 AM Primary Problem: Fall Desktop Support Consultant reviewed chart and spoke with patient's son Sami at bedside to complete this Initial Case Management Assessment. Pt remained intubated in ICU level care and could not participate in conversation. PCP: Aman Hernandez MD Emergency Contact: Extended Emergency Contact Information Primary Emergency Contact: Artemio Urbina Mobile Relation: Son Secondary Emergency Contact: SalazarTrice Mobile Relation: Relative Preferred language: Latvian Clay Artisan needed? No Insurance: Primary Visit Coverage Payer Plan Sponsor Code Group Number Group Name HUMANA MEDICARE HUMANA MEDICARE [id number] Primary Visit Coverage Subscriber Subscriber ID Subscriber Name Subscriber N Subscriber Address [id number] ALBANIA MATA R [id number] [place] [address] Patient information: Primary Caregiver: Self Accompanied by/Relationship: Son Sami Support System: Immediate family, Extended family Daily Living Activities: Functional Status: Moderate assistance Living Arrangements: Alone Type of Residence: Private residence [address] [place] [address] Smoker in the Home?: N/A Current DME: [...] Services: None reported. Living Will/Advance Directive/Power of Senior Estimator /Guardian: Pt's two sons are her healthcare surrogates. Copy of advanced directive in blue chart. Social Drivers of Health Food Insecurity: Patient Unable To Answer (10/31/2024) Hunger Vital Sign Worried About Running Out of Food in the Last Year: Patient unable to answer Ran Out of Food in the Last Year: Patient unable to answer Alcohol Use: Alcohol Misuse (07/20/2024) Received from [facility] AUDIT-C Q1: How often do you have [...] Tobacco Use: Medium Risk (09/01/2024) Received from [facility] Patient History Smoking Tobacco Use: Former Smokeless Tobacco Use: Never Passive Exposure: Past Transportation Needs: Patient Unable To Answer (10/31/2024) PRAPARE - Transportation Lack of Transportation (Medical): Patient unable to answer Lack of Transportation (Non-Medical): Patient unable to answer Depression: Not at risk (09/01/2024) Received from [facility] PHQ-2 Patient Health Questionnaire-2 Score: 0 Utilities: Patient Unable To Answer (10/31/2024) [facility] Utilities Threatened with loss of utilities: Patient unable to answer Stress: Not on file Intimate Partner Violence: Patient Unable To Answer (10/31/2024) Humiliation, Afraid, Rape, and Kick questionnaire Fear of Current or Ex-Partner: Patient unable to answer Emotionally Abused: Patient unable to answer Physically Abused: Patient unable to answer Sexually Abused: Patient unable to answer Physical Activity: Inactive (07/20/2024) Received from [facility] Exercise Vital Sign On average, how many days per week do you engage in moderate to strenuous exercise (like a brisk walk)?: 0 days On average, how many minutes do you engage in exercise at this level?: 0 min Social Connections: Unknown (07/20/2024) Received from [facility] Family and Community Support If for any [...] stated that pt lives at home in [place], [place]. Sami stated that pt had a stroke earlier this year and since then family members have been staying with pt and she is rarely alone for more than a couple hours. Pt was at [facility] for rehab in June. Pt is currently intubated in ICU level care. SW/CM will continue to follow for resource needs and dispoplanning. 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 UOP 0.5ml/kg/hr. Hgb 9.2 from 10.4, likely dilutional. Tmax 100.4, WBC stable, no abx. Edited by: Kerwin Johnson MD at 10/31/2024 0938 Are there limits on this patient's care or advanced wishes/documents available? No Past Medical History: Active Ambulatory Problems Diagnosis Date Noted No Active Ambulatory Problems Resolved Ambulatory Problems Diagnosis Date Noted No Resolved Ambulatory Problems Past Medical History: Diagnosis Date Depression Fibromyalgia Hx of degenerative disc disease Hyperlipidemia Hypertension Neuropathy Stroke (CMS/HCC) Past Surgical History: Surgical History[1] Home Medications: [...] 0231 Oral 1 Output by Drain (mL) 10/29/24 07 - 10/29/24 18510/29/24 190 - 10/30/24 0659 10/30/24 07 - 10/30/24 1859 10/30/24 190 - 10/31/24 0659 10/31/24 07 - 10/31/24 1048 Requested LDAs do not [...] Results from last 7 days Lab Units 10/30/24 2311 10/30/24 1125 10/30/24 0645 HEMOGLOBIN g/dL 9.2* 10.4* 10.3* HEMATOCRIT % 29.8* 33.5* 32.9* INR Cr Results from last 7 days Lab Units 10/30/24 2311 10/30/24 1125 10/30/24 0645 CREATININE mg/dL 0.99 1.12* 1.00 Radiology: [...] OSH Carotid stenosis Present on Admission: Yes Test And Balance Engineer and mca stenosis Resume home meds as [...] Please call with any questions or concerns. [phone] [place] PGY-1 Pager: [phone] Cosigned by Barney Osman MD at 10/31/2024 [...] tobacco, and illicit drug use. Lives in [place], [place]. Review of Systems 14 point review [...] with questions. Shannon Mack MD Ophthalmology Pager: [phone] [1] Past Medical History: Diagnosis Date Depression [...] were discussed: yes Alternatives discussed: No treatment [place] protocol: Imaging studies available: yes Site/side marked: [...] Optimize Device Care and Function Flowsheets (Taken 10/30/2024822 by Earline Ridley, RN) Airway/Ventilation Management: airway patency maintained Oral Care: [...] with hypoxia; Fall, initial encounter; Intraventricular hemorrhage ([facility]/HCC); Injury of globe of eye, right, initial encounter; Hyperlipidemia, unspecified hyperlipidemia type; Closed fracture of right zygomatic arch, initial encounter ([facility]); ABLA (acute blood loss anemia); Hypertension, unspecified [...] Tmax 98.1, not on abx. 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 Edited by: Erica Casitllo, BRICK PAVING CHECKER at 10/30/2024 0922 Patient Active Problem List Diagnosis Date Noted Zygomatic arch fracture ([facility]/HCC) 10/30/2024 Injury of globe of eye, right, initial encounter 10/30/2024 Fall 10/30/2024 TBI (traumatic brain injury) ([facility]/HCC) 10/30/2024 Carotid stenosis 10/30/2024 ABLA (acute blood loss anemia) 10/30/2024 Hyperglycemia 10/30/2024 Acute respiratory failure with hypoxia 10/30/2024 Lactic acidosis 10/30/2024 Electrolyte abnormality 10/30/2024 MELISSA (acute kidney injury) ([facility]) 10/30/2024 Hypothyroidism 10/30/2024 Hypertension 10/30/2024 Hyperlipidemia 10/30/2024 CVA (cerebral vascular accident) ([facility]) 10/30/2024 Plan: Transfused PLTS, concern for transfusion rxn, labs sent, benadryl and neb given Follow additional NSGY recs Keppra to oral, tylenol added Home statin and levothyroxine added DHT and feeds Tertiary note tomorrow Edited by: Erica aCstillo APRN at 10/30/2024 0944 Erica Castillo APRN [...] by: son. Risks discussed: Bleeding and infection [place] protocol: Imaging studies available: yes Site/side marked: [...] MD Resident Physician, PGY-2 Department of Neurosurgery [facility] Cosigned by Barney Osman MD at 10/30/2024 [...] Tobacco Use: Medium Risk (09/01/2024) Received from [facility] Patient History Smoking Tobacco Use: Former Smokeless Tobacco Use: Never Passive Exposure: Past Alcohol Use: Alcohol Misuse (07/20/2024) Received from [facility] AUDIT-C Q1: How often do you have [...] R hemiparesis), ASA, Plavix, HTN,HLD, carotid stent ([facility], ), DDD who presents from OSH after [...] Tobacco Use: Medium Risk (09/01/2024) Received from [facility] Patient History Smoking Tobacco Use: Former Smokeless [...] Date: 10/30/24 Arrival Time: 229 Referring Hospital: [facility] Date: 10/29/24 Injury Time: 190 Transport Mode: [...] disc disease, Hyperlipidemia, Hypertension, Neuropathy, and Stroke ([facility]). Reviewed as documented above Surgical History [...] kg (149 lb 0.5 oz), SpO2 100%. [place] Coma Scale Best Eye Response: Spontaneous Best Verbal Response: None Best Motor Response: Follows commands [place] Coma Scale Score: 11 Intubated Yes Oral [...] tablet 1,000 mg 1,000 mg Oral q6h BACILIO Erica Castillo APRN EPINEPHrine (Adrenalin) 1 mg/10mL injection - [...] Katharine Savage MD 12.17 mL/hr at 10/30/24 045 30 mcg/kg/min at 10/30/24 045 senna-docusate (Marley-Colace) 8.6-50 MG per tablet 2 tablet 2 tablet Oral BID Erica Castillo APRN sodium chloride 0.9 % flush 10 mL 10 mL Intravenous q12h Chirag Zambrano PA 10 mL at 10/30/24 0457 And sodium chloride 0.9 % flush 10 mL 10 mL Intravenous PRN Chirag Zambrano PA sodium chloride 0.9 % infusion 75 mL/hr Intravenous Continuous ImChirag ng PA 75 mL/hr at 10/30/24 0459 75 mL/hr at 10/30/24 045 [3] Cosigned by Katharine Savage MD at [...] 10/30/2024 2:30 AM EDT 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 Medical team tended [...] PGY4 * ED Provider Notes - Jacques Kelly DO - 10/30/2024 2:28 AM EDT Images from [...] Start Status Ordering Provider 10/31/24 0600 Scheduled DANIELLA KATHARINE S 11/03/24 0600 Scheduled DANIELLA, KATHARINE S 11/07/24 0600 Scheduled DANIELLA, KATHARINE S 11/10/24 0600 Scheduled DANIELLA, KATHARINE S 11/14/24 0600 Scheduled DANIELLA, KATHARINE S 11/17/24 0600 Scheduled DANIELLA, KATHARINE S 11/21/24 0600 Scheduled DANIELLA, KATHARINE S 11/24/24 0600 Scheduled DANIELLA, KATHARINE S Ordered DANIELLA KATHARINE S 10/30/24 0319 Consult to Trauma Surgery Once Specialty: Trauma Surgery Provider: (Not yet assigned) Ordered JACQUES KELLY 10/30/24 0319 ED to floor bed request Once Ordered JACQUES KELLY 10/30/24 0311 Consult to ENT/Otolaryngology Once Specialty: Otolaryngology Provider: (Not yet assigned) Ordered JACQUES KELLY 10/30/24 0309 XR Pelvis 1 or 2 Views Once In process IKER REAGAN 10/30/24 0308 Alcohol Profile Plasma Once Collected DANIELLA KATHARINE S 10/30/24 0309 XR Chest 1 View One time imaging In process IKER REAGAN 10/30/24 0308 Blood gas, venous Once Final result DANIELLA KATHARINE S 10/30/24 0308 CBC W/O Differential Once Final result DANIELLA KATHARINE S 10/30/24 0308 APTT Once In process DANIELLA KATHARINE Day 10/30/24 0308 Protime-INR Once In process GM SAVAGELEILA Bernstein 10/30/24 0300 ICU Target Pain Score Until discontinued Comments: Initiate and titrate analgesia to attain goal CPOT first prior to initiating sedation unless otherwise ordered. Goal is to provide adequate pain management prior to initiating sedative agents. Target consistent patient goal CPOT as ordered. Document CPOT per nursing policy prior to and following PRN dosing and with any changes in infusionrate. Ordered DANIELLA KATHARINE S 10/30/24 0300 Target arousal level - RASS: [...] was put on a ventilator. Vitals were stablein the ED as well. No additional CT scans were completed as all trauma scans were completed outsidehospital. Repeat chest x-ray does not show pneumothorax [...] the comment field Jacques Kelly DO Resident 10/30/24827 Cosigned by Iker Reagan MD at 10/30/2024 [...] EDT Appointment [facility] [address] [phone] 12/15/2024 1:30 PM EDT Office Visit [facility] [address], [address] [place] [address] Raymond Nuñez MD [address] [place] [address] 12/30/2024 1:00 PM EST Office Visit [facility] Otolaryngology [address], 3[address] [place] [address] Yobani Benoit MD [address] [facility] [address] [place] [address] 05/24/2025 2:30 PM EDT Office Visit [facility] [address] [place] [address] Navya Woody MD [address] [facility] [address] [place] [address] 06/07/2025 2:00 PM EDT Consult [facility] [address], [address] [place] [address] Haseeb Dias MD [address] [facility] [address] [place] [address] Scheduled Referrals Name Type Priority Associated Diagnoses Orde r Schedule Discharge Ambulatory referral to Neurosurgery Outpatient Referral Routine Fall, initial encounter Traumatic brain injury, with unknown loss of consciousness status, initial encounter ([facility]) Expected: 11/12/2024 (Approximate), Expires: 05/16/2026 Discharge Ambulatory referral to ENT Outpatient Referral Routine Fall, initial encounter Closed fracture of zygomatic arch, unspecified laterality, initial encounter ([facility]) Expected: 11/26/2024, Expires: 05/16/2026 documented as [...] OXYGEN THERAPY Routine 11/04/2024 8:00 AM EDT [place] CRITICAL CARE, E/M 30-74 MINUTES Routine 11/04/2024 7:05 AM EDT Fall, initial encounter Electrolyte abnormality Traumatic brain injury, with unknown loss of consciousness status, initial encounter ([facility]) Acute respiratory failure with hypoxia Hypertension, [...] 3+ VIEWS Routine 11/03/2024 12:43 PM EDT [place] CRITICAL CARE, E/M 30-74 MINUTES Routine 11/03/2024 11:16 AM EDT Fall, initial encounter Electrolyte abnormality Traumatic brain injury, with unknown loss of consciousness status, initial encounter ([facility]) Acute respiratory failure with hypoxia OXYGEN [...] OXYGEN THERAPY Routine 11/02/2024 12:53 PM EDT [place] CRITICAL CARE, E/M 30-74 MINUTES Routine 11/02/2024 10:25 AM EDT Fall, initial encounter Traumatic brain injury, with unknown loss of consciousness status, initial encounter ([facility]) Acute respiratory failure with hypoxia Hypertension, [...] fracture of right zygomatic arch, initial encounter ([facility]) TN OPEN RX COMPLX CHEEK BONE FRAC 11/01/2024 1:40 PM EDT Closed fracture of right zygomatic arch, initial encounter ([facility]) XR CHEST 1 VIEW STAT 11/01/2024 [...] 3+ VIEWS STAT 11/01/2024 9:55 AM EDT [place] CRITICAL CARE, E/M 30-74 MINUTES Routine 11/01/2024 7:22 AM EDT Fall, initial encounter Hyperlipidemia, unspecified hyperlipidemia type Traumatic brain injury, with unknown loss of consciousness status, initial encounter ([facility]) Acute respiratory failure with hypoxia IONIZED [...] EDT EXTUBATION Routine 10/31/2024 1:11 PM EDT [place] CRITICAL CARE, E/M 30-74 MINUTES Routine 10/31/2024 10:48 AM EDT Intraventricular hemorrhage ([facility]) Fall, initial encounter Electrolyte abnormality ABLA (acute [...] 10/30/2024 4:02 PM EDT Fall, initial encounter TN INSERT NON-TUNNEL CV CATH Routine 10/30/2024 4:02 [...] REACTION INVESTIGATION Routine 10/30/2024 10:04 AM EDT [place] CRITICAL CARE, ADDL 30 MIN Routine 10/30/2024 9:49 AM EDT Intraventricular hemorrhage (CMS/HCC) Fall, initial encounter Electrolyte abnormality ABLA (acute blood loss anemia) Closed fracture of right zygomatic arch, initial encounter ([facility]) Hyperlipidemia, unspecified hyperlipidemia type Traumatic brain injury, with unknown loss of consciousness status, initial encounter ([facility]) Acute respiratory failure with hypoxia Hypertension, unspecified type Injury of globe of eye, right, initial encounter Debility [place] CRITICAL CARE, ADDL 30 MIN Routine 10/30/2024 9:49 AM EDT Intraventricular hemorrhage (CMS/HCC) Fall, initial encounter Electrolyte abnormality ABLA (acute blood loss anemia) Closed fracture of right zygomatic arch, initial encounter ([facility]) Hyperlipidemia, unspecified hyperlipidemia type Traumatic brain injury, with unknown loss of consciousness status, initial encounter (CMS/HCC) Acute respiratory failure with hypoxia Hypertension, unspecified type Injury of globe of eye, right, initial encounter Debility HC INSERT CATH,ART,PERCUT,LOR ERM Routine 10/30/2024 9:11 AM EDT Intraventricular hemorrhage (CMS/HCC) TN INSERT CATH,ART,PERCUT,LOR ERM Routine 10/30/2024 9:11 AM [...] Nathaniel Alcaraz MD on 11/12/2024 1:26 AM us Katharine Savage MD IMG CT PROCEDURES Final Result * (ABNORMAL) POCT glucose meter (11/11/2024 10:50 PM EDT) [facility] POCT Glucose 135(H) 74 - 99 mg/dL 11/11/2024 10:51 PM EDT [facility] Comment:Accuracy of a [...] for testing. Comment 11/11/2024 10:51 PM EDT [facility] Victorian Literature Professor ID Zackery Cohen 11/12/19 10:51 PM EDT [facility] Device ID [id number] 11/11/2024 10:51 PM EDT [facility] Specimen Type POC Capillary 11/11/2024 10:51 PM EDT [facility] Blood Capillary blood specimen / Unknown 11/11/2024 10:50 PM EDT 11/11/2024 10:51 PM EDT us Katharine Savage MD LAB POINT OF CARE TE ST DOCKED DEVICE UNSOLICITED RESULTS Final Result Performing Organization Address City/State/[facility] Co de Phone Number [facility] [address] [place] [address] * (ABNORMAL) Wound Culture and Gram Stain (11/04/2024 11:57 AM EDT) [facility] CULTURE READING WOUND Light Growth 11/07/2024 12:50 PM EDT [facility] CULTURE READING WOUND 1+ Methicillin-Resista nt Staphylococcus aureus(AA) GERMÁN 11/07/2024 12:50 PM EDT [facility] Comment: The organism value for this result has been updated. These results have been appended to the previously preliminary verified report. Edited result: Previously reported as Staphylococcus aureus on 11/05/2024 at 0710 EDT. Staphylococcus aureus has been updated to reportable. CULTURE READING WOUND 1+ Staphylococcus epidermidis(A) GERMÁN 11/07/2024 12:50 PM EDT [facility] Comment: This isolate has been identified using the FDA Approved [employer] [place] System The organism value for this result has been updated. These results have been appended to the previously preliminary verified report. Gram Stain Result Few Polymorphonuclear leukocytes(A) 11/07/2024 12:50 PM EDT [facility] Gram Stain Result Few Gram positive cocci in clusters(A) 11/07/2024 12:50 PM EDT [facility] Swab Skin structure / Unknown [...] Staphylococcus aureus Vancomycin GERMÁN 1 ug/ml: Susceptible Micheal Espinoza MD LAB MICROBIOLOGY - GENERAL ORDERABLES Final Result Performing Organization Address City/State/[facility] Co de Phone Number [facility] [address] [place] [address] * [place] CRITICAL CARE, E/M 30-74 MINUTES (11/04/2024 7:05 [...] Aggressive pulmonary toilet. On goal tube feeds. 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 TELEMARKETER evaluated and cleared for diet but PO [...] - 4.5 mg/dL 11/04/2024 12:48 AM EDT [facility] Blood Venous blood specimen / Unknown Venipuncture / Unknown 11/04/2024 12:07 AM EDT 11/04/2024 12:16 AM EDT us Manisha FORBES LAB BLOOD ORDERABLES Final R esult [facility] [address] [place] [address] * Magnesium (11/04/2024 12:07 AM EDT) Magnesium, Plasma 2.2 1.9 - 2.4 mg/dL 11/04/2024 12:48 AM EDT [facility] Blood Venous blood specimen / Unknown Venipuncture / Unknown 11/04/2024 12:07 AM EDT 11/04/2024 12:16 AM EDT us Manisha FORBES LAB BLOOD ORDERABLES Final R esult [facility] [address] [place] [address] * (ABNORMAL) Basic metabolic panel (11/04/2024 12:07 AM EDT) Glucose, Plasma 114(H) 74 - 99 mg/dL 11/04/2024 12:48 AM EDT [facility] BUN, Plasma 21 8 - 23 mg/dL 11/04/2024 12:48 AM EDT [facility] Creatinine, Plasma 0.73 0.60 - 1.10 mg/dL 11/04/2024 12:48 AM EDT [facility] BUN/Creatinine Ratio 29 11/04/2024 12:48 AM EDT [facility] Sodium, Plasma 143 136 - 145 mmol/L 11/04/2024 12:48 AM EDT [facility] Potassium, Plasma 3.9 3.6 - 4.9 mmol/L 11/04/2024 12:48 AM EDT [facility] Chloride, Plasma 108(H) 97 - 107 mmol/L 11/04/2024 12:48 AM EDT [facility] CO2, Plasma 27 22 - 29 mmol/L 11/04/2024 12:48 AM EDT [facility] Anion Gap 8 6 - 16 mmol/L 11/04/2024 12:48 AM EDT [facility] Total Calcium, Plasma 7.9(L) 8.9 - 10.2 mg/dL 11/04/2024 12:48 AM EDT [facility] eGFRcr 90.8 mL/min/1.7 3m*2 11/04/2024 12:48 AM EDT [facility] Comment:Reported eGFRcr in m L/min/1.73m2 is based the CKD-EPI 2020 equation that does not use a race coefficient. Blood Venous blood specimen / Unknown Venipuncture / Unknown 11/04/2024 12:07 AM EDT 11/04/2024 12:16 AM EDT us Manisha FORBES LAB BLOOD ORDERABLES Final R esult [facility] [address] [place] [address] * (ABNORMAL) CBC W/O Differential (11/04/2024 12:07 AM EDT) WBC Count 7.42 3.70 - 10.30 10*3/uL LAB HEMATOLOGY METHOD 11/04/2024 12:26 AM EDT [facility] RBC Count 2.89(L) 3.90 - 5.20 10*6/uL LAB HEMATOLOGY METHOD 11/04/2024 12:26 AM EDT [facility] HGB 7.9(L) 11.2 - 15.7 g/dL LAB HEMATOLOGY METHOD 11/04/2024 12:26 AM EDT [facility] HCT 25.5(L) 34.0 - 45.0 % LAB HEMATOLOGY METHOD 11/04/2024 12:26 AM EDT [facility] Platelet Count 229 155 - 369 10*3/uL LAB HEMATOLOGY METHOD 11/04/2024 12:26 AM EDT [facility] MCV 88 79 - 98 fL LAB HEMATOLOGY METHOD 11/04/2024 12:26 AM EDT [facility] MCH 27.3 26.0 - 32.0 pg LAB HEMATOLOGY METHOD 11/04/2024 12:26 AM EDT [facility] MCHC 31.0 30.7 - 35.5 g/dL LAB HEMATOLOGY METHOD 11/04/2024 12:26 AM EDT [facility] RDW 13.6 11.5 - 14.5 % LAB HEMATOLOGY METHOD 11/04/2024 12:26 AM EDT [facility] MPV 10.8 8.8 - 12.5 fL LAB HEMATOLOGY METHOD 11/04/2024 12:26 AM EDT [facility] nRBC 0.0 <=0.0 per 100 WBCs LAB HEMATOLOGY METHOD 11/04/2024 12:26 AM EDT [facility] Blood Venous blood specimen / Unknown Venipuncture / Unknown 11/04/2024 12:07 AM EDT 11/04/2024 12:18 AM EDT us Manisha FORBES LAB BLOOD ORDERABLES Final R esult [facility] [address] [place] [address] * (ABNORMAL) CBC W/O Differential (11/03/2024 3:13 PM EDT) WBC Count 9.52 3.70 - 10.30 10*3/uL LAB HEMATOLOGY METHOD 11/03/2024 3:46 PM EDT [facility] RBC Count 3.24(L) 3.90 - 5.20 10*6/uL LAB HEMATOLOGY METHOD 11/03/2024 3:46 PM EDT [facility] HGB 8.8(L) 11.2 - 15.7 g/dL LAB HEMATOLOGY METHOD 11/03/2024 3:46 PM EDT [facility] HCT 28.3(L) 34.0 - 45.0 % LAB HEMATOLOGY METHOD 11/03/2024 3:46 PM EDT [facility] Platelet Count 255 155 - 369 10*3/uL LAB HEMATOLOGY METHOD 11/03/2024 3:46 PM EDT [facility] MCV 87 79 - 98 fL LAB HEMATOLOGY METHOD 11/03/2024 3:46 PM EDT [facility] MCH 27.2 26.0 - 32.0 pg LAB HEMATOLOGY METHOD 11/03/2024 3:46 PM EDT [facility] MCHC 31.1 30.7 - 35.5 g/dL LAB HEMATOLOGY METHOD 11/03/2024 3:46 PM EDT [facility] RDW 13.5 11.5 - 14.5 % LAB HEMATOLOGY METHOD 11/03/2024 3:46 PM EDT [facility] MPV 11.1 8.8 - 12.5 fL LAB HEMATOLOGY METHOD 11/03/2024 3:46 PM EDT [facility] nRBC 0.0 <=0.0 per 100 WBCs LAB HEMATOLOGY METHOD 11/03/2024 3:46 PM EDT [facility] Blood Venous blood specimen / Unknown Venipuncture / Unknown 11/03/2024 3:13 PM EDT 11/03/2024 3:38 PM EDT us Micheal Espinoza MD LAB BLOOD ORDERABLES Final Result [facility] [address] [place] [address] * XR Ankle Right 3+ Views (11/03/2024 [...] IMG XR PROCEDURES Final Resu lt * [place] CRITICAL CARE, E/M 30-74 MINUTES (11/03/2024 11:16 [...] therapy. Recommending subacute rehab. Chemical VTE prophylaxis. Micheal Espinoza MD IN [...] Ethan Grande MD on 11/03/2024 9:24 AM us Micheal Espinoza MD IMG XR PROCEDURES Final Re sult * (ABNORMAL) Phosphorus (11/03/2024 2:08 AM EDT) Phosphorus, Plasma 2.1(L) 2.5 - 4.5 mg/dL 11/03/2024 3:24 AM EDT [facility] Blood Venous blood specimen / Unknown Venipuncture / Unknown 11/03/2024 2:08 AM EDT 11/03/2024 2:17 AM EDT us Micheal Espinoza MD LAB BLOOD ORDERABLES Final Result Performing Organization Address City/[facility]/ZIP Co de Phone Number [facility] [address] [place] [address] * Magnesium (11/03/2024 2:08 AM EDT) Magnesium, Plasma 2.1 1.9 - 2.4 mg/dL 11/03/2024 3:24 AM EDT [facility] Blood Venous blood specimen / Unknown Venipuncture / Unknown 11/03/2024 2:08 AM EDT 11/03/2024 2:17 AM EDT us Micheal Espinoza MD LAB BLOOD ORDERABLES Final Result [facility] [address] [place] [address] * (ABNORMAL) Comprehensive metabolic panel (11/03/2024 2:08 AM EDT) Glucose, Plasma 163(H) 74 - 99 mg/dL 11/03/2024 3:24 AM EDT [facility] BUN, Plasma 22 8 - 23 mg/dL 11/03/2024 3:24 AM EDT [facility] Creatinine, Plasma 0.78 0.60 - 1.10 mg/dL 11/03/2024 3:24 AM EDT [facility] BUN/Creatinine Ratio 28 11/03/2024 3:24 AM EDT [facility] Sodium, Plasma 142 136 - 145 mmol/L 11/03/2024 3:24 AM EDT [facility] Potassium, Plasma 4.1 3.6 - 4.9 mmol/L 11/03/2024 3:24 AM EDT [facility] Chloride, Plasma 109(H) 97 - 107 mmol/L 11/03/2024 3:24 AM EDT [facility] CO2, Plasma 25 22 - 29 mmol/L 11/03/2024 3:24 AM EDT [facility] Anion Gap 8 6 - 16 mmol/L 11/03/2024 3:24 AM EDT [facility] Total Calcium, Plasma 7.9(L) 8.9 - 10.2 mg/dL 11/03/2024 3:24 AM EDT [facility] Total Protein 5.5(L) 6.3 - 7.9 g/dL 11/03/2024 3:24 AM EDT [facility] Albumin, Plasma 2.8(L) 3.5 - 5.2 g/dL 11/03/2024 3:24 AM EDT [facility] AST, Plasma 32 10 - 35 U/L 11/03/2024 3:24 AM EDT [facility] ALT, Plasma 46(H) 10 - 35 U/L 11/03/2024 3:24 AM EDT [facility] Alkaline Phosphatase, Plasma 154(H) 46 - 142 U/L 11/03/2024 3:24 AM EDT [facility] Total Bilirubin, Plasma 0.3 0.2 - 1.1 mg/dL 11/03/2024 3:24 AM EDT [facility] eGFRcr 83.9 mL/min/1.7 3m*2 11/03/2024 3:24 AM EDT [facility] Comment:Reported eGFRcr in m L/min/1.73m2 is based the CKD-EPI 2020 equation that does not use a race coefficient. Blood Venous blood specimen / Unknown Venipuncture / Unknown 11/03/2024 2:08 AM EDT 11/03/2024 2:17 AM EDT us Micheal Espinoza MD LAB BLOOD ORDERABLES Final Result [facility] [address] [place] [address] * (ABNORMAL) CBC and differential (11/03/2024 2:08 AM EDT) WBC Count 7.77 3.70 - 10.30 10*3/uL LAB HEMATOLOGY METHOD 11/03/2024 2:33 AM EDT [facility] RBC Count 2.74(L) 3.90 - 5.20 10*6/uL LAB HEMATOLOGY METHOD 11/03/2024 2:33 AM EDT [facility] HGB 7.6(L) 11.2 - 15.7 g/dL LAB HEMATOLOGY METHOD 11/03/2024 2:33 AM EDT [facility] HCT 24.4(L) 34.0 - 45.0 % LAB HEMATOLOGY METHOD 11/03/2024 2:33 AM EDT [facility] Platelet Count 193 155 - 369 10*3/uL LAB HEMATOLOGY METHOD 11/03/2024 2:33 AM EDT [facility] MCV 89 79 - 98 fL LAB HEMATOLOGY METHOD 11/03/2024 2:33 AM EDT [facility] MCH 27.7 26.0 - 32.0 pg LAB HEMATOLOGY METHOD 11/03/2024 2:33 AM EDT [facility] MCHC 31.1 30.7 - 35.5 g/dL LAB HEMATOLOGY METHOD 11/03/2024 2:33 AM EDT [facility] RDW 13.7 11.5 - 14.5 % LAB HEMATOLOGY METHOD 11/03/2024 2:33 AM EDT [facility] MPV 10.8 8.8 - 12.5 fL LAB HEMATOLOGY METHOD 11/03/2024 2:33 AM EDT [facility] nRBC 0.0 <=0.0 per 100 WBCs LAB HEMATOLOGY METHOD 11/03/2024 2:33 AM EDT [facility] Differential Type Automated LAB HEMATOLOGY METHOD 11/03/2024 2:33 AM EDT [facility] Neutrophils % 72 % LAB HEMATOLOGY METHOD 11/03/2024 2:33 AM EDT [facility] Lymphocytes % 21 % LAB HEMATOLOGY METHOD 11/03/2024 2:33 AM EDT [facility] Monocytes % 5 % LAB HEMATOLOGY METHOD 11/03/2024 2:33 AM EDT [facility] Eosinophils % 2 % LAB HEMATOLOGY METHOD 11/03/2024 2:33 AM EDT [facility] Basophils % 0 % LAB HEMATOLOGY METHOD 11/03/2024 2:33 AM EDT [facility] Immature Granulocytes % 0 % LAB HEMATOLOGY METHOD 11/03/2024 2:33 AM EDT [facility] Neutrophils Absolute 5.60 1.60 - 6.10 10*3/uL LAB HEMATOLOGY METHOD 11/03/2024 2:33 AM EDT [facility] Lymphocytes Absolute 1.62 1.20 - 3.90 10*3/uL LAB HEMATOLOGY METHOD 11/03/2024 2:33 AM EDT [facility] Monocytes Absolute 0.35 0.30 - 0.90 10*3/uL LAB HEMATOLOGY METHOD 11/03/2024 2:33 AM EDT [facility] Eosinophils Absolute 0.15 0.00 - 0.50 10*3/uL LAB HEMATOLOGY METHOD 11/03/2024 2:33 AM EDT [facility] Basophils Absolute 0.02 0.00 - 0.10 10*3/uL LAB HEMATOLOGY METHOD 11/03/2024 2:33 AM EDT [facility] Immature Granulocytes Absolute 0.03 0.00 - 0.06 10*3/uL LAB HEMATOLOGY METHOD 11/03/2024 2:33 AM EDT [facility] Blood Venous blood specimen / Unknown Venipuncture / Unknown 11/03/2024 2:08 AM EDT 11/03/2024 2:24 AM EDT Narrative [facility] - 11/03/2024 2:33 AM EDT Therapeutic decision making should be based on absolute values, rather than percentages. us Micheal Espinoza MD LAB BLOOD ORDERABLES Final Result [facility] [address] [place] [address] * [place] Modified Barium Swallow (11/02/2024 3:21 [...] signing this report, I, the attending physician, jorge I have personally reviewed the images/data for the aboveexamination(s) and agree with the final edited report. Drafted by Kerwin Kennedy III, MD on 11/02/2024 4:35 PM Final report signed by Carter Palomo MD on 11/02/2024 5:10 PM us Micheal Espinoza MD IMG FLUOROSCOPY PROCEDURES Final Result * [place] [facility], E/M 30-74 MINUTES (11/02/2024 10:25 [...] October 30, 2024. Face CT scan from [facility] from October 29, 2024 FINDINGS: [...] October 30, 2024. Face CT scan from [facility] from October 29, 2024 FINDINGS: [...] 7.31 - 7.42 11/01/2024 6:42 PM EDT [facility] pCO2, Arterial 46 35 - 48 mm Hg 11/01/2024 6:42 PM EDT [facility] pO2, Arterial 72(L) >80 mm Hg 11/01/2024 6:42 PM EDT [facility] SO2, Arterial 97 94 - 98 % 11/01/2024 6:42 PM EDT [facility] FIO2 50.0 % 11/01/2024 6:42 PM EDT [facility] Base Excess, Arterial 1.7 -2 - 3 mmol/L 11/01/2024 6:42 PM EDT [facility] HCO3, Arterial 27.2(H) 22 - 26 mmol/L 11/01/2024 6:42 PM T [facility] Total Hemoglobin, Arterial, Whole Blood 8.9(L) 11.2 - 15.7 g/dL 11/01/2024 6:42 PM T [facility] Hematocrit, Arterial 27.0(L) 34.0 - 45.0 % 11/01/2024 6:42 PM T [facility] Sodium, Arterial 141 136 - 145 mmol/L 11/01/2024 6:42 PM T [facility] Potassium, Arterial 4.6 3.6 - 4.9 mmol/L 11/01/2024 6:42 PM T [facility] Chloride, Whole Blood 109(H) 97 - 107 mmol/L 11/01/2024 6:42 PM T [facility] Glucose, Arterial 122(H) 74 - 99 mg/dL 11/01/2024 6:42 PM T [facility] Ionized Calcium, Arterial 5.2(H) 4.6 - 5.1 mg/dL 11/01/2024 6:42 PM T [facility] Lactate, Arterial 0.8 0.5 - 1.6 mmol/L 11/01/2024 6:42 PM T [facility] Body Temperature 37.5 Celsius 11/01/2024 6:42 PM [facility] pH, Temp Corrected, Arterial 7.37 7.31 - 7.42 11/01/2024 6:42 PM [facility] pCO2, Temp Corrected, Arterial 47 35 - 48 mm Hg 11/01/2024 6:42 PM T [facility] pO2, Temp Corrected, Arterial 74(L) >80 mm Hg 11/01/2024 6:42 PM T [facility] [employer] Literature Professor ID Edwin Sommers 11/01/2024 6:42 PM T [facility] Blood, Arterial Whole blood specimen / Unknown 11/01/2024 6:41 PM EDT 11/01/2024 6:42 PM EDT Micheal Espinoza MD LAB POINT OF CARE TEST DOCKED DEVICE UNSOLICITED RESULTS Final Result Performing Organization Address City/State/[facility] Co de Phone Number [facility] [address] [place] [address] * (ABNORMAL) POCT glucose meter (11/01/2024 6:09 [...] for testing. Comment 11/01/2024 6:11 PM EDT [facility] [employer] Literature Professor ID Danitza Méndez 11/01/2024 6:11 PM EDT [facility] Device ID [id number] 11/01/2024 6:11 PM EDT [facility] Specimen Type POC Arterial 11/01/2024 6:11 PM EDT [facility] Blood Arterial blood specimen / Unknown 11/01/2024 6:09 PM EDT 11/01/2024 6:11 PM EDT Micheal Espinoza MD LAB POINT OF CARE TEST DOCKED DEVICE UNSOLICITED RESULTS Final Result Performing Organization Address City/[facility] Co de Phone Number [facility] [address] [place] [address] * Phosphorus (11/01/2024 6:09 PM EDT) Phosphorus, Plasma 3.5 2.5 - 4.5 mg/dL 11/01/2024 6:53 PM EDT [facility] Blood Venous blood specimen / Unknown Venipuncture / Unknown 11/01/2024 6:09 PM EDT 11/01/2024 6:22 PM EDT Micheal Espinoza MD LAB BLOOD ORDERABLES Final Result [facility] [address] [place] [address] * Magnesium (11/01/2024 6:09 PM EDT) Pathologist [facility] Magnesium, Plasma 2.0 1.9 - 2.4 mg/dL 11/01/2024 6:53 PM EDT [facility] Blood Venous blood specimen / Unknown Venipuncture / Unknown 11/01/2024 6:09 PM EDT 11/01/2024 6:22 PM EDT us Micheal Espinoza MD LAB BLOOD ORDERABLES Final Result Performing Organization Address [facility]/ZIP Co de Phone Number [facility] [address] [place] [address] * (ABNORMAL) Comprehensive metabolic panel (11/01/2024 6:09 PM EDT) Pathologist [facility] Glucose, Plasma 113(H) 74 - 99 mg/dL 11/01/2024 6:53 PM EDT [facility] BUN, Plasma 14 8 - 23 mg/dL 11/01/2024 6:53 PM EDT [facility] Creatinine, Plasma 0.78 0.60 - 1.10 mg/dL 11/01/2024 6:53 PM EDT [facility] BUN/Creatinine Ratio 18 11/01/2024 6:53 PM EDT [facility] Sodium, Plasma 142 136 - 145 mmol/L 11/01/2024 6:53 PM EDT [facility] Potassium, Plasma 4.4 3.6 - 4.9 mmol/L 11/01/2024 6:53 PM EDT [facility] Chloride, Plasma 109(H) 97 - 107 mmol/L 11/01/2024 6:53 PM EDT [facility] CO2, Plasma 22 22 - 29 mmol/L 11/01/2024 6:53 PM EDT [facility] Anion Gap 11 6 - 16 mmol/L 11/01/2024 6:53 PM EDT [facility] Total Calcium, Plasma 8.7(L) 8.9 - 10.2 mg/dL 11/01/2024 6:53 PM EDT [facility] Total Protein 6.2(L) 6.3 - 7.9 g/dL 11/01/2024 6:53 PM EDT [facility] Albumin, Plasma 3.2(L) 3.5 - 5.2 g/dL 11/01/2024 6:53 PM EDT [facility] AST, Plasma 72(H) 10 - 35 U/L 11/01/2024 6:53 PM EDT [facility] ALT, Plasma 84(H) 10 - 35 U/L 11/01/2024 6:53 PM EDT [facility] Alkaline Phosphatase, Plasma 194(H) 46 - 142 U/L 11/01/2024 6:53 PM EDT [facility] Total Bilirubin, Plasma 0.7 0.2 - 1.1 mg/dL 11/01/2024 6:53 PM EDT [facility] eGFRcr 83.9 mL/min/1.7 3m*2 11/01/2024 6:53 PM EDT [facility] Comment:Reported eGFRcr in m L/min/1.73m2 is based the CKD-EPI 2020 equation that does not use a race coefficient. Blood Venous blood specimen / Unknown Venipuncture / Unknown 11/01/2024 6:09 PM EDT 11/01/2024 6:22 PM EDT us Micheal Espinoza MD LAB BLOOD ORDERABLES Final Result [facility] [address] [place] [address] * (ABNORMAL) CBC and differential (11/01/2024 6:09 PM EDT) WBC Count 9.73 3.70 - 10.30 10*3/uL LAB HEMATOLOGY METHOD 11/01/2024 6:37 PM EDT [facility] RBC Count 3.48(L) 3.90 - 5.20 10*6/uL LAB HEMATOLOGY METHOD 11/01/2024 6:37 PM EDT [facility] HGB 9.4(L) 11.2 - 15.7 g/dL LAB HEMATOLOGY METHOD 11/01/2024 6:37 PM EDT [facility] HCT 30.8(L) 34.0 - 45.0 % LAB HEMATOLOGY METHOD 11/01/2024 6:37 PM EDT [facility] Platelet Count 198 155 - 369 10*3/uL LAB HEMATOLOGY METHOD 11/01/2024 6:37 PM EDT [facility] MCV 89 79 - 98 fL LAB HEMATOLOGY METHOD 11/01/2024 6:37 PM EDT [facility] MCH 27.0 26.0 - 32.0 pg LAB HEMATOLOGY METHOD 11/01/2024 6:37 PM EDT [facility] MCHC 30.5(L) 30.7 - 35.5 g/dL LAB HEMATOLOGY METHOD 11/01/2024 6:37 PM EDT [facility] RDW 13.3 11.5 - 14.5 % LAB HEMATOLOGY METHOD 11/01/2024 6:37 PM EDT [facility] MPV 10.9 8.8 - 12.5 fL LAB HEMATOLOGY METHOD 11/01/2024 6:37 PM EDT [facility] nRBC 0.0 <=0.0 per 100 WBCs LAB HEMATOLOGY METHOD 11/01/2024 6:37 PM EDT [facility] Differential Type Automated LAB HEMATOLOGY METHOD 11/01/2024 6:37 PM EDT [facility] Neutrophils % 94 % LAB HEMATOLOGY METHOD 11/01/2024 6:37 PM EDT [facility] Lymphocytes % 4 % LAB HEMATOLOGY METHOD 11/01/2024 6:37 PM EDT [facility] Monocytes % 1 % LAB HEMATOLOGY METHOD 11/01/2024 6:37 PM EDT [facility] Eosinophils % 0 % LAB HEMATOLOGY METHOD 11/01/2024 6:37 PM EDT [facility] Basophils % 0 % LAB HEMATOLOGY METHOD 11/01/2024 6:37 PM EDT [facility] Immature Granulocytes % 1 % LAB HEMATOLOGY METHOD 11/01/2024 6:37 PM EDT [facility] Neutrophils Absolute 9.13(H) 1.60 - 6.10 10*3/uL LAB HEMATOLOGY METHOD 11/01/2024 6:37 PM EDT [facility] Lymphocytes Absolute 0.40(L) 1.20 - 3.90 10*3/uL LAB HEMATOLOGY METHOD 11/01/2024 6:37 PM EDT [facility] Monocytes Absolute 0.12(L) 0.30 - 0.90 10*3/uL LAB HEMATOLOGY METHOD 11/01/2024 6:37 PM EDT [facility] Eosinophils Absolute 0.01 0.00 - 0.50 10*3/uL LAB HEMATOLOGY METHOD 11/01/2024 6:37 PM EDT [facility] Basophils Absolute 0.01 0.00 - 0.10 10*3/uL LAB HEMATOLOGY METHOD 11/01/2024 6:37 PM EDT [facility] Immature Granulocytes Absolute 0.06 0.00 - 0.06 10*3/uL LAB HEMATOLOGY METHOD 11/01/2024 6:37 PM EDT [facility] Blood Venous blood specimen / Unknown Venipuncture / Unknown 11/01/2024 6:09 PM EDT 11/01/2024 6:27 PM EDT Narrative [facility] - 11/01/2024 6:37 PM EDT Therapeutic decision making should be based on absolute values, rather than percentages. us Micheal Espinoza MD LAB BLOOD ORDERABLES Final Result [facility] [address] [place] [address] * XR Chest 1 View (11/01/2024 12:15 [...] Ethan Grande MD on 11/01/2024 12:57 PM us Micheal Espinoza MD IMG XR PROCEDURES Final Re sult * (ABNORMAL) POCT arterial blood gas gem (11/01/2024 12:10 PM EDT) pH, Arterial 7.41 7.31 - 7.42 11/01/2024 12:12 PM EDT [facility] pCO2, Arterial 43 35 - 48 mm Hg 11/01/2024 12:12 PM EDT [facility] pO2, Arterial 114 >80 mm Hg 11/01/2024 12:12 PM EDT [facility] SO2, Arterial 100(H) 94 - 98 % 11/01/2024 12:12 PM EDT [facility] FIO2 70.0 % 11/01/2024 12:12 PM EDT [facility] Base Excess, Arterial 2.4 -2 - 3 mmol/L 11/01/2024 12:12 PM EDT [facility] HCO3, Arterial 27.3(H) 22 - 26 mmol/L 11/01/2024 12:12 PM EDT [facility] Total Hemoglobin, Arterial, Whole Blood 9.0(L) 11.2 - 15.7 g/dL 11/01/2024 12:12 PM EDT [facility] Hematocrit, Arterial 27.0(L) 34.0 - 45.0 % 11/01/2024 12:12 PM EDT [facility] Sodium, Arterial 142 136 - 145 mmol/L 11/01/2024 12:12 PM EDT [facility] Potassium, Arterial 3.9 3.6 - 4.9 mmol/L 11/01/2024 12:12 PM EDT [facility] Chloride, Whole Blood 110(H) 97 - 107 mmol/L 11/01/2024 12:12 PM EDT [facility] Glucose, Arterial 91 74 - 99 mg/dL 11/01/2024 12:12 PM EDT [facility] Ionized Calcium, Arterial 4.9 4.6 - 5.1 mg/dL 11/01/2024 12:12 PM EDT [facility] Lactate, Arterial 0.7 0.5 - 1.6 mmol/L 11/01/2024 12:12 PM EDT [facility] Body Temperature 37.2 Celsius 11/01/2024 12:12 PM EDT [facility] pH, Temp Corrected, Arterial 7.41 7.31 - 7.42 11/01/2024 12:12 PM EDT [facility] pCO2, Temp Corrected, Arterial 43 35 - 48 mm Hg 11/01/2024 12:12 PM EDT [facility] pO2, Temp Corrected, Arterial 115 >80 mm Hg 11/01/2024 12:12 PM EDT [facility] Victorian Literature Professor ID Edwin Sommers 11/01/2024 12:12 PM EDT [facility] Blood, Arterial Whole blood specimen / Unknown 11/01/2024 12:10 PM EDT 11/01/2024 12:12 PM EDT Micheal Espinoza MD LAB POINT OF CARE TEST DOCKED DEVICE UNSOLICITED RESULTS Final Result [facility] [address] [place] [address] * XR Wrist Right 3+ Views (11/01/2024 [...] IMG XR PROCEDURES Final Re sult * [place] [facility], E/M 30-74 MINUTES (11/01/2024 7:22 [...] - 4.5 mg/dL 11/01/2024 12:42 AM EDT [facility] Blood Venous blood specimen / Unknown Venipuncture / Unknown 10/31/2024 11:49 PM EDT 10/31/2024 11:59 PM EDT us Erica Castillo APRN LAB BLOOD ORDERABLES Final Result [facility] [address] [place] [address] * Magnesium, Plasma (10/31/2024 11:49 PM EDT) Magnesium, Plasma 1.9 1.9 - 2.4 mg/dL 11/01/2024 12:42 AM EDT [facility] Blood Venous blood specimen / Unknown Venipuncture / Unknown 10/31/2024 11:49 PM EDT 10/31/2024 11:59 PM EDT Erica Castillo BRICK [employer]ING CHECKER LAB BLOOD ORDERABLES Final Result Performing Organization Address [facility]/ZIP Co de Phone Number [facility] [address] [place] [address] * Ionized calcium, whole blood (10/31/2024 11:49 PM EDT) Pathologist [facility] Ionized Calcium, Whole Blood 4.6 4.6 - 5.1 mg/dL LAB HEMATOLOGY METHOD 11/01/2024 12:01 AM EDT [facility] Blood Venous blood specimen / Unknown Venipuncture / Unknown 10/31/2024 11:49 PM EDT 10/31/2024 11:59 PM EDT Erica Castillo BR[employer]ING CHECKER LAB BLOOD ORDERABLES Final Result Performing Organization Address [facility]/ZIP Co de Phone Number [facility] [address] [place] [address] * (ABNORMAL) CBC W/O Differential (10/31/2024 11:49 PM EDT) [facility] WBC Count 9.34 3.70 - 10.30 10*3/uL LAB HEMATOLOGY METHOD 11/01/2024 12:32 AM EDT [facility] RBC Count 2.97(L) 3.90 - 5.20 10*6/uL LAB HEMATOLOGY METHOD 11/01/2024 12:32 AM EDT [facility] HGB 8.1(L) 11.2 - 15.7 g/dL LAB HEMATOLOGY METHOD 11/01/2024 12:32 AM EDT [facility] HCT 26.5(L) 34.0 - 45.0 % LAB HEMATOLOGY METHOD 11/01/2024 12:32 AM EDT [facility] Platelet Count 179 155 - 369 10*3/uL LAB HEMATOLOGY METHOD 11/01/2024 12:32 AM EDT [facility] MCV 89 79 - 98 fL LAB HEMATOLOGY METHOD 11/01/2024 12:32 AM EDT [facility] MCH 27.3 26.0 - 32.0 pg LAB HEMATOLOGY METHOD 11/01/2024 12:32 AM EDT [facility] MCHC 30.6(L) 30.7 - 35.5 g/dL LAB HEMATOLOGY METHOD 11/01/2024 12:32 AM EDT [facility] RDW 13.2 11.5 - 14.5 % LAB HEMATOLOGY METHOD 11/01/2024 12:32 AM EDT [facility] MPV 10.7 8.8 - 12.5 fL LAB HEMATOLOGY METHOD 11/01/2024 12:32 AM EDT [facility] nRBC 0.0 <=0.0 per 100 WBCs LAB HEMATOLOGY METHOD 11/01/2024 12:32 AM EDT [facility] Blood Venous blood specimen / Unknown Venipuncture / Unknown 10/31/2024 11:49 PM EDT 10/31/2024 11:59 PM EDT Erica Castillo APRN LAB BLOOD ORDERABLES Final Result [facility] [address] [place] [address] * (ABNORMAL) Basic Metabolic Panel, Plasma (10/31/2024 11:49 PM EDT) Glucose, Plasma 133(H) 74 - 99 mg/dL 11/01/2024 12:42 AM EDT [facility] BUN, Plasma 16 8 - 23 mg/dL 11/01/2024 12:42 AM EDT [facility] Creatinine, Plasma 0.80 0.60 - 1.10 mg/dL 11/01/2024 12:42 AM EDT [facility] BUN/Creatinine Ratio 20 11/01/2024 12:42 AM EDT [facility] Sodium, Plasma 143 136 - 145 mmol/L 11/01/2024 12:42 AM EDT [facility] Potassium, Plasma 4.0 3.6 - 4.9 mmol/L 11/01/2024 12:42 AM EDT [facility] Chloride, Plasma 111(H) 97 - 107 mmol/L 11/01/2024 12:42 AM EDT [facility] CO2, Plasma 22 22 - 29 mmol/L 11/01/2024 12:42 AM EDT [facility] Anion Gap 10 6 - 16 mmol/L 11/01/2024 12:42 AM EDT [facility] Total Calcium, Plasma 7.7(L) 8.9 - 10.2 mg/dL 11/01/2024 12:42 AM EDT [facility] eGFRcr 81.4 mL/min/1.7 3m*2 11/01/2024 12:42 AM EDT [facility] Comment:Reported eGFRcr in m L/min/1.73m2 is based the CKD-EPI 2020 equation that does not use a race coefficient. Blood Venous blood specimen / Unknown Venipuncture / Unknown 10/31/2024 11:49 PM EDT 10/31/2024 11:59 PM EDT Erica Castillo BR[employer] CHECK[employer] LAB BLOOD ORDERABLES Final Result [facility] [address] [place] [address] * [place] [facility], E/M 30-74 MINUTES (10/31/2024 10:48 AM EDT) Narrative Micheal Espinoza MD - 10/31/2024 10:48 AM EDT Micheal Espinoza MD 10/31/2024 1:26 PM Critical Care Performed by: Micheal Espinoza MD Authorized by: Micheal Espinzoa MD Critical care provider statement: Critical care [...] 82 <150 mg/dL 10/31/2024 7:42 AM EDT [facility] Comment: Triglyceride Reference Range (age >17 years): Desirable: <150 mg/dL Borderline high: 150 to 199 mg/dL High: 200 to 499 mg/dL Very high: >499 mg/dL Increased risk of pancreatitis: >1000 mg/dL Fasting greater than or equal to 12 hours? No 10/31/2024 7:42 AM EDT [facility] Blood Venous blood specimen / Unknown Venipuncture / Unknown 10/31/2024 6:56 AM EDT 10/31/2024 7:09 AM EDT us Katharine Savage MD LAB BLOOD ORDERABLES Final Resul t [facility] [address] [place] [address] * (ABNORMAL) Blood gas, arterial (10/30/2024 11:11 PM EDT) pH, Arterial 7.41 7.31 - 7.42 LAB HEMATOLOGY METHOD 10/30/2024 11:19 PM EDT [facility] pCO2, Arterial 38 35 - 48 mmHg LAB HEMATOLOGY METHOD 10/30/2024 11:19 PM EDT [facility] pO2, Arterial 192 >80 mmHg LAB HEMATOLOGY METHOD 10/30/2024 11:19 PM EDT [facility] SO2, Measured, Arterial 100(H) 94 - 98 % LAB HEMATOLOGY METHOD 10/30/2024 11:19 PM EDT [facility] Base Excess, Arterial -0.2 -2.0 - 3.0 mmol/L LAB HEMATOLOGY METHOD 10/30/2024 11:19 PM EDT [facility] Bicarbonate, Calculated, Arterial 24 22 - 26 mmol/L LAB HEMATOLOGY METHOD 10/30/2024 11:19 PM EDT [facility] Hematocrit, Whole Blood 27.5(L) 34.0 - 45.0 % LAB HEMATOLOGY METHOD 10/30/2024 11:19 PM EDT [facility] Sodium, Whole Blood 140 136 - 145 mmol/L LAB HEMATOLOGY METHOD 10/30/2024 11:19 PM EDT [facility] Potassium, Whole Blood 4.0 3.6 - 4.9 mmol/L LAB HEMATOLOGY METHOD 10/30/2024 11:19 PM EDT [facility] Chloride, Whole Blood 110(H) 97 - 107 mmol/L LAB HEMATOLOGY METHOD 10/30/2024 11:19 PM EDT [facility] Glucose, Whole Blood 138(H) 74 - 99 mg/dL LAB HEMATOLOGY METHOD 10/30/2024 11:19 PM EDT [facility] Ionized Calcium, Whole Blood 4.4(L) 4.6 - 5.1 mg/dL LAB HEMATOLOGY METHOD 10/30/2024 11:19 PM EDT [facility] Lactate, Arterial, Whole Blood 1.5 0.5 - 1.6 mmol/L LAB HEMATOLOGY METHOD 10/30/2024 11:19 PM EDT [facility] Blood Arterial blood specimen / Unknown Arterial Puncture / Unknown 10/30/2024 11:11 PM EDT 10/30/2024 11:17 PM EDT Isabelle Soto MD LAB BLOOD ORDERABLES Evelyn richardson Result [facility] [address] [place] [address] * Phosphorus, Plasma (10/30/2024 11:11 PM EDT) Phosphorus, Plasma 2.9 2.5 - 4.5 mg/dL 10/30/2024 11:46 PM EDT [facility] Blood Venous blood specimen / Unknown Venipuncture / Unknown 10/30/2024 11:11 PM EDT 10/30/2024 11:17 PM EDT us Crystal S Castillo [employer] LAB BLOOD ORDERABLES Final Result Performing Organization Address [facility]/ZIP Co de Phone Number [facility] [address] [place] [address] * (ABNORMAL) Magnesium, Plasma (10/30/2024 11:11 PM EDT) Magnesium, Plasma 1.8(L) 1.9 - 2.4 mg/dL 10/30/2024 11:46 PM EDT [facility] Blood Venous blood specimen / Unknown Venipuncture / Unknown 10/30/2024 11:11 PM EDT 10/30/2024 11:17 PM EDT Erica Castillo BR[employer] CHECKER LAB BLOOD ORDERABLES Final Result Performing Organization Address [facility] Co de Phone Number [facility] [address] [place] [address] * Ionized calcium, whole blood (10/30/2024 11:11 PM EDT) Ionized Calcium, Whole Blood 4.6 4.6 - 5.1 mg/dL LAB HEMATOLOGY METHOD 10/30/2024 11:19 PM EDT [facility] Blood Venous blood specimen / Unknown Venipuncture / Unknown 10/30/2024 11:11 PM EDT 10/30/2024 11:17 PM EDT Erica Castillo BR[employer] LAB BLOOD ORDERABLES Final Result Performing Organization Address City/[facility]/ZIP Co de Phone Number [facility] [address] [place] [address] * (ABNORMAL) CBC W/O Differential (10/30/2024 11:11 PM EDT) WBC Count 9.72 3.70 - 10.30 10*3/uL LAB HEMATOLOGY METHOD 10/30/2024 11:24 PM EDT [facility] RBC Count 3.36(L) 3.90 - 5.20 10*6/uL LAB HEMATOLOGY METHOD 10/30/2024 11:24 PM EDT [facility] HGB 9.2(L) 11.2 - 15.7 g/dL LAB HEMATOLOGY METHOD 10/30/2024 11:24 PM EDT [facility] HCT 29.8(L) 34.0 - 45.0 % LAB HEMATOLOGY METHOD 10/30/2024 11:24 PM EDT [facility] Platelet Count 250 155 - 369 10*3/uL LAB HEMATOLOGY METHOD 10/30/2024 11:24 PM EDT [facility] MCV 89 79 - 98 fL LAB HEMATOLOGY METHOD 10/30/2024 11:24 PM EDT [facility] MCH 27.4 26.0 - 32.0 pg LAB HEMATOLOGY METHOD 10/30/2024 11:24 PM EDT [facility] MCHC 30.9 30.7 - 35.5 g/dL LAB HEMATOLOGY METHOD 10/30/2024 11:24 PM EDT [facility] RDW 13.1 11.5 - 14.5 % LAB HEMATOLOGY METHOD 10/30/2024 11:24 PM EDT [facility] MPV 10.1 8.8 - 12.5 fL LAB HEMATOLOGY METHOD 10/30/2024 11:24 PM EDT [facility] nRBC 0.0 <=0.0 per 100 WBCs LAB HEMATOLOGY METHOD 10/30/2024 11:24 PM EDT [facility] Blood Venous blood specimen / Unknown Venipuncture / Unknown 10/30/2024 11:11 PM EDT 10/30/2024 11:17 PM EDT Erica Castillo APRN LAB BLOOD ORDERABLES Final Result [facility] [address] [place] [address] * (ABNORMAL) Basic Metabolic Panel, Plasma (10/30/2024 11:11 PM EDT) Glucose, Plasma 145(H) 74 - 99 mg/dL 10/30/2024 11:46 PM EDT [facility] BUN, Plasma 17 8 - 23 mg/dL 10/30/2024 11:46 PM EDT [facility] Creatinine, Plasma 0.99 0.60 - 1.10 mg/dL 10/30/2024 11:46 PM EDT [facility] BUN/Creatinine Ratio 17 10/30/2024 11:46 PM EDT [facility] Sodium, Plasma 141 136 - 145 mmol/L 10/30/2024 11:46 PM EDT [facility] Potassium, Plasma 4.3 3.6 - 4.9 mmol/L 10/30/2024 11:46 PM EDT [facility] Chloride, Plasma 110(H) 97 - 107 mmol/L 10/30/2024 11:46 PM EDT [facility] CO2, Plasma 22 22 - 29 mmol/L 10/30/2024 11:46 PM EDT [facility] Anion Gap 9 6 - 16 mmol/L 10/30/2024 11:46 PM EDT [facility] Total Calcium, Plasma 8.2(L) 8.9 - 10.2 mg/dL 10/30/2024 11:46 PM EDT [facility] eGFRcr 63.0 mL/min/1.7 3m*2 10/30/2024 11:46 PM EDT [facility] Comment:Reported eGFRcr in m L/min/1.73m2 is based the CKD-EPI 2020 equation that does not use a race coefficient. Blood Venous blood specimen / Unknown Venipuncture / Unknown 10/30/2024 11:11 PM EDT 10/30/2024 11:17 PM EDT Erica Castillo APRN LAB BLOOD ORDERABLES Final Result [facility] [address] [place] [address] * (ABNORMAL) POCT glucose meter (10/30/2024 6:23 PM EDT) POCT Glucose 159(H) 74 - 99 mg/dL 10/30/2024 6:24 PM EDT [facility] Comment:Accuracy of a glucos e result [...] Comment 10/30/2024 6:24 PM EDT [facility] [employer] ID Ealrine Ridley 10/30/2024 6:24 PM EDT [facility] Device ID [id number] 10/30/2024 6:24 PM EDT [facility] Specimen Type POC Arterial 10/30/2024 6:24 PM EDT [facility] Blood Arterial blood specimen / Unknown 10/30/2024 6:23 PM EDT 10/30/2024 6:24 PM EDT Isabelle Soto MD LAB POINT OF CARE TEST DOCKED DEVICE UNSOLICITED RESULTS Final Result Performing Organization Address City/State/[facility] Co de Phone Number [facility] [address] [place] [id number] * XR Chest 1 View (10/30/2024 4:11 [...] Nolvia Clements MD on 10/30/2024 4:31 PM Isabelle Soto MD IMG XR PROCEDURES Final R esult * TN INSERT NON-TUNNEL CV CATH, HC INSERT NON-TUNNEL [...] were discussed: yes Alternatives discussed: No treatment [place] protocol: Imaging studies available: yes Site/side marked: [...] well, no immediate complications Erica Castillo APRN IN CLINIC/BEDSIDE ORDERABL ES Final Result * Urinalysis Microscopic Examination (10/30/2024 2:11 PM EDT) Urine Urine specimen from urinary conduit / Unknown Non-blood Collection / Unknown 10/30/2024 2:11 PM EDT 10/30/2024 2:16 PM EDT Erica Castillo APRN LAB URINE ORDERABLES Final Result [facility] [address] [place] [address] * (ABNORMAL) Urinalysis with reflex microscopic (Culture NOT Included) (10/30/2024 2:11 PM EDT) Color, Urine Dark Yellow LAB URINALYSIS - AUTOMATED METHOD 10/30/2024 2:36 PM EDT [facility] Clarity, Urine Cloudy LAB URINALYSIS - AUTOMATED METHOD 10/30/2024 2:36 PM EDT [facility] Spec [place], Urine >1.030(H) 1.005 - 1.030 LAB URINALYSIS - AUTOMATED METHOD 10/30/2024 2:36 PM EDT [facility] pH, Urine 5.5 5.0 - 8.0 LAB URINALYSIS - AUTOMATED METHOD 10/30/2024 2:36 PM EDT [facility] Protein, Urine 100(A) Negative mg/dL LAB URINALYSIS - AUTOMATED METHOD 10/30/2024 2:36 PM EDT [facility] Glucose, Urine Negative Negative mg/dL LAB URINALYSIS - AUTOMATED METHOD 10/30/2024 2:36 PM EDT [facility] Ketones, Urine Trace(A) Negative mg/dL LAB URINALYSIS - AUTOMATED METHOD 10/30/2024 2:36 PM EDT [facility] Blood, Urine Large(A) Negative LAB URINALYSIS - AUTOMATED METHOD 10/30/2024 2:36 PM EDT [facility] Bilirubin, Urine Negative Negative LAB URINALYSIS - AUTOMATED METHOD 10/30/2024 2:36 PM EDT [facility] Urobilinogen, Urine 1.0 0.2 to 1.0 mg/dL LAB URINALYSIS - AUTOMATED METHOD 10/30/2024 2:36 PM EDT [facility] Leukocytes, Urine Trace(A) Negative LAB URINALYSIS - AUTOMATED METHOD 10/30/2024 2:36 PM EDT [facility] Nitrite, Urine Negative Negative LAB URINALYSIS - AUTOMATED METHOD 10/30/2024 2:36 PM EDT [facility] RBC, Urine >50(A) 0 to 3 /HPF LAB URINALYSIS - AUTOMATED METHOD 10/30/2024 2:36 PM EDT [facility] WBC, Urine 6 - 10(A) 0 to 5 /HPF LAB URINALYSIS - AUTOMATED METHOD 10/30/2024 2:36 PM EDT [facility] Squamous Epithelial Cells 0 - 2 0 to 5 /HPF LAB URINALYSIS - AUTOMATED METHOD 10/30/2024 2:36 PM EDT [facility] Hyaline Casts 0 - 2 0 to 5 /LPF LAB URINALYSIS - AUTOMATED METHOD 10/30/2024 2:36 PM EDT [facility] Bacteria, Urine Negative Negative LAB URINALYSIS - AUTOMATED METHOD 10/30/2024 2:36 PM EDT [facility] Urine Urine specimen from urinary conduit / Unknown Non-blood Collection / Unknown 10/30/2024 2:11 PM EDT 10/30/2024 2:16 PM EDT us [employer] [facility] LAB URINE ORDERABLES Final Result Performing Organization Address City/[facility]/ZIP Co de Phone Number [facility] [address] [place] [address] * (ABNORMAL) Troponin T, High Sensitivity, 2 Hour, Plasma (10/30/2024 1:24 PM EDT) Troponin T, High Sensitivity, 2 Hour 418(H) <14 ng/L 10/30/2024 1:56 PM EDT [facility] Troponin Delta Interpretation Not Calculated 10/30/2024 1:56 PM EDT [facility] Comment:Specimen not collect ed within acceptable timeframe. Delta will not be calculated. Blood Arterial blood specimen / Unknown Arterial Puncture / Unknown 10/30/2024 1:24 PM EDT 10/30/2024 1:28 PM EDT [employer] LAB BLOOD ORDERABLES Final Result Performing Organization Address [facility]/ZIP Co de Phone Number [facility] [address] [place] [address] * CT Head wo IV Contrast (10/30/2024 [...] MD on 10/31/2024 2:45 AM Erica Castillo [employer] IMG CT PROCEDURES Final Re sult * ECG Adult (10/30/2024 11:39 AM EDT) EKG DIAGNOSIS CLASS Abnormal MUSE ECG Ventricular Rate 85 BPM MUSE ECG Atrial Rate 85 BPM MUSE ECG TN Interval 146 ms MUSE ECG QRSD Interval 84 ms MUSE ECG QT Interval 394 ms MUSE ECG QTC Interval 468 ms MUSE ECG P [place] 82 degrees MUSE ECG R [place] 51 degrees MUSE ECG T Wave [place] 184 degrees MUSE ECG Diagnosis Poor data [...] MUSE ECG Diagnosis Confirmed by Tristan Cooper ([id number]) on 10/30/2024 12:08:55 PM MUSE ECG 10/30/2024 11:3 9 AM EDT 10/30/2024 12:08 PM EDT Erica Castillo [employer] ECG ORDERABLES Final Resu lt MUSE ECG * (ABNORMAL) Troponin T, High Sensitivity, 0 Hour Plasma, Reflex to 2 Hour (10/30/2024 11:25 AM EDT) Troponin T, High Sensitivity, 0 Hour 179(H) <14 ng/L 10/30/2024 12:01 PM EDT [facility] Blood Arterial blood specimen / Unknown Arterial Puncture / Unknown 10/30/2024 11:25 AM EDT 10/30/2024 11:32 AM EDT Erica Castillo [employer] LAB BLOOD ORDERABLES Final Result Performing Organization Address [facility] Co de Phone Number [facility] [address] [place] [address] * Phosphorus (10/30/2024 11:25 AM EDT) Phosphorus, Plasma 3.1 2.5 - 4.5 mg/dL 10/30/2024 12:01 PM EDT [facility] Blood Arterial blood specimen / Unknown Arterial Puncture / Unknown 10/30/2024 11:25 AM EDT 10/30/2024 11:32 AM EDT Erica Castillo [employer] LAB BLOOD ORDERABLES Final Result Performing Organization Address City/[facility]/ZIP Co de Phone Number [facility] [address] [place] [address] * (ABNORMAL) Magnesium, Plasma (10/30/2024 11:25 AM EDT) Magnesium, Plasma 1.8(L) 1.9 - 2.4 mg/dL 10/30/2024 12:01 PM EDT [facility] Blood Arterial blood specimen / Unknown Arterial Puncture / Unknown 10/30/2024 11:25 AM EDT 10/30/2024 11:32 AM EDT us Erica Castillo [employer] LAB BLOOD ORDERABLES Final Result Performing Organization Address [facility]/ZIP Co de Phone Number [facility] [address] [place] [address] * Ionized calcium, whole blood (10/30/2024 11:25 AM EDT) Ionized Calcium, Whole Blood 4.7 4.6 - 5.1 mg/dL LAB HEMATOLOGY METHOD 10/30/2024 11:37 AM EDT [facility] Blood Arterial blood specimen / Unknown Arterial Puncture / Unknown 10/30/2024 11:25 AM EDT 10/30/2024 11:33 AM EDT us Erica Castillo [employer] LAB BLOOD ORDERABLES Final Result Performing Organization Address City/[facility]/ZIP Co de Phone Number [facility] [address] [place] [address] * (ABNORMAL) Basic Metabolic Panel, Plasma (10/30/2024 11:25 AM EDT) Glucose, Plasma 124(H) 74 - 99 mg/dL 10/30/2024 12:01 PM EDT [facility] BUN, Plasma 18 8 - 23 mg/dL 10/30/2024 12:01 PM EDT [facility] Creatinine, Plasma 1.12(H) 0.60 - 1.10 mg/dL 10/30/2024 12:01 PM EDT [facility] BUN/Creatinine Ratio 16 10/30/2024 12:01 PM EDT [facility] Sodium, Plasma 144 136 - 145 mmol/L 10/30/2024 12:01 PM EDT [facility] Potassium, Plasma 3.7 3.6 - 4.9 mmol/L 10/30/2024 12:01 PM EDT [facility] Chloride, Plasma 107 97 - 107 mmol/L 10/30/2024 12:01 PM EDT [facility] CO2, Plasma 23 22 - 29 mmol/L 10/30/2024 12:01 PM EDT [facility] Anion Gap 14 6 - 16 mmol/L 10/30/2024 12:01 PM EDT [facility] Total Calcium, Plasma 8.6(L) 8.9 - 10.2 mg/dL 10/30/2024 12:01 PM EDT [facility] eGFRcr 54.3 mL/min/1.7 3m*2 10/30/2024 12:01 PM EDT [facility] Comment:Reported eGFRcr in m L/min/1.73m2 is based the CKD-EPI 2020 equation that does not use a race coefficient. Blood Arterial blood specimen / Unknown Arterial Puncture / Unknown 10/30/2024 11:25 AM EDT 10/30/2024 11:32 AM EDT Erica Castillo APRN LAB BLOOD ORDERABLES Final Result [facility] [address] [place] [address] * (ABNORMAL) CBC W/O Differential (10/30/2024 11:25 AM EDT) WBC Count 9.31 3.70 - 10.30 10*3/uL LAB HEMATOLOGY METHOD 10/30/2024 11:39 AM EDT [facility] RBC Count 3.82(L) 3.90 - 5.20 10*6/uL LAB HEMATOLOGY METHOD 10/30/2024 11:39 AM EDT [facility] HGB 10.4(L) 11.2 - 15.7 g/dL LAB HEMATOLOGY METHOD 10/30/2024 11:39 AM EDT [facility] HCT 33.5(L) 34.0 - 45.0 % LAB HEMATOLOGY METHOD 10/30/2024 11:39 AM EDT [facility] Platelet Count 364 155 - 369 10*3/uL LAB HEMATOLOGY METHOD 10/30/2024 11:39 AM EDT [facility] MCV 88 79 - 98 fL LAB HEMATOLOGY METHOD 10/30/2024 11:39 AM EDT [facility] MCH 27.2 26.0 - 32.0 pg LAB HEMATOLOGY METHOD 10/30/2024 11:39 AM EDT [facility] MCHC 31.0 30.7 - 35.5 g/dL LAB HEMATOLOGY METHOD 10/30/2024 11:39 AM EDT [facility] RDW 13.0 11.5 - 14.5 % LAB HEMATOLOGY METHOD 10/30/2024 11:39 AM EDT [facility] MPV 10.0 8.8 - 12.5 fL LAB HEMATOLOGY METHOD 10/30/2024 11:39 AM EDT [facility] nRBC 0.0 <=0.0 per 100 WBCs LAB HEMATOLOGY METHOD 10/30/2024 11:39 AM EDT [facility] Blood Arterial blood specimen / Unknown Arterial Puncture / Unknown 10/30/2024 11:25 AM EDT 10/30/2024 11:32 AM EDT Erica Castillo APRN LAB BLOOD ORDERABLES Final Result [facility] [address] [place] [address] * (ABNORMAL) Blood gas panel, arterial (10/30/2024 11:25 AM EDT) pH, Arterial 7.33 7.31 - 7.42 LAB HEMATOLOGY METHOD 10/30/2024 11:36 AM EDT [facility] pCO2, Arterial 49(H) 35 - 48 mmHg LAB HEMATOLOGY METHOD 10/30/2024 11:36 AM EDT [facility] pO2, Arterial 236 >80 mmHg LAB HEMATOLOGY METHOD 10/30/2024 11:36 AM EDT [facility] SO2, Measured, Arterial 100(H) 94 - 98 % LAB HEMATOLOGY METHOD 10/30/2024 11:36 AM EDT [facility] Base Excess, Arterial -0.4 -2.0 - 3.0 mmol/L LAB HEMATOLOGY METHOD 10/30/2024 11:36 AM EDT [facility] Bicarbonate, Calculated, Arterial 26 22 - 26 mmol/L LAB HEMATOLOGY METHOD 10/30/2024 11:36 AM EDT [facility] Hematocrit, Whole Blood 31.4(L) 34.0 - 45.0 % LAB HEMATOLOGY METHOD 10/30/2024 11:36 AM EDT [facility] Sodium, Whole Blood 143 136 - 145 mmol/L LAB HEMATOLOGY METHOD 10/30/2024 11:36 AM EDT [facility] Potassium, Whole Blood 3.5(L) 3.6 - 4.9 mmol/L LAB HEMATOLOGY METHOD 10/30/2024 11:36 AM EDT [facility] Chloride, Whole Blood 107 97 - 107 mmol/L LAB HEMATOLOGY METHOD 10/30/2024 11:36 AM EDT [facility] Glucose, Whole Blood 121(H) 74 - 99 mg/dL LAB HEMATOLOGY METHOD 10/30/2024 11:36 AM EDT [facility] Ionized Calcium, Whole Blood 4.7 4.6 - 5.1 mg/dL LAB HEMATOLOGY METHOD 10/30/2024 11:36 AM EDT [facility] Lactate, Arterial, Whole Blood 2.2(H) 0.5 - 1.6 mmol/L LAB HEMATOLOGY METHOD 10/30/2024 11:36 AM EDT [facility] Blood Arterial blood specimen / Unknown Arterial Puncture / Unknown 10/30/2024 11:25 AM EDT 10/30/2024 11:33 AM EDT us Erica Castillo APRN LAB BLOOD ORDERABLES Final Result [facility] [address] [place] [address] * Light Blue Top (10/30/2024 11:20 AM EDT) Extra Hold for add-ons 10/30/2024 2:02 PM EDT [facility] Comment:Auto resulted. Blood Venous blood specimen / Unknown 10/30/2024 11:20 AM EDT 10/30/2024 11:35 AM EDT Katharine Savage MD LAB BLOOD ORDERABLES Final Resul t [facility] [address] [place] [address] * Transfusion Reaction, Pathologist Interpretation (10/30/2024 10:04 [...] ORDERA BLES Final Result Performing Organization Address City/[facility]/ZIP Co de Phone Number BLOOD BANK [address] [place] [address], * (ABNORMAL) TEG Global Hemostasis with Lysis (10/30/2024 10:04 AM EDT) R, Lysis 3.3(L) 4.6 - 9.1 min 10/30/2024 11:23 AM EDT [facility] MA, Rapid, Lysis 69.0 52.0 - 70.0 mm 10/30/2024 11:23 AM EDT [facility] MA, Fibrinogen, Lysis 28.0 15.0 - 32.0 mm 10/30/2024 11:23 AM EDT [facility] LY30 0.1 0.0 - 2.6 % 10/30/2024 11:23 AM EDT [facility] Blood Arterial blood specimen / Unknown Arterial Puncture / Unknown 10/30/2024 10:04 AM EDT 10/30/2024 10:17 AM EDT Erica Castillo APRN LAB BLOOD ORDERABLES Final Result [facility] [address] [place] [address] * Transfusion Reaction Investigation (10/30/2024 10:04 AM [...] Comment:2 LEUKOREDUCED PLATE LETS GIVEN- [id number] D [id number]; [id number] 25 [id number] O [id number] Donor Unit Culture Not Indicated 10/30/2024 9:10 [...] 10:04 AM EDT 10/30/2024 10:30 AM EDT us Erica Castillo [employer] LAB BLOOD BANK TEST ORDERA BLES Final Result BLOOD BANK [address] [place] [id number], * TN CRITICAL CARE, ADDL 30 MIN, TN CRITICAL CARE, ADDL 30 MIN (10/30/2024 9:49 [...] hour neuro exams. Isabelle Soto MD Result [facility] Isabelle Soto MD IN CLINIC/BEDSIDE ORDERAB LES Final Result * Transfuse platelets (10/30/2024 9:14 AM EDT) Result [facility] Erica Castillo APRN BLOOD TRANSFUSION ORDERABL ES Final Result * Transfuse platelets: 2 Units (10/30/2024 9:14 AM EDT) Erica Castillo APRN BLOOD TRANSFUSION ORDERABL ES Final Result * Transfuse platelets (10/30/2024 9:13 AM EDT) Result [facility] Erica Castillo APRN BLOOD TRANSFUSION ORDERABL ES Final Result * TN INSERT CATH,ART,PERCUT,SHORTTERM, HC INSERT CATH,ART,PERCUT,SHORTTERM (10/30/2024 9:11 AM EDT) Narrative Isabelle Soto MD - 10/30/2024 9:11 AM EDT Isabelle Soto MD 11/02/2024 10:22 AM Arterial line Performed by: Erica Castillo APRN Authorized by: Erica Castillo APRN Consent: Consent obtained: Written Consent given by: son. Risks discussed: Bleeding and infection [place] protocol: Imaging studies available: yes Site/side marked: [...] Procedure completion: Tolerated well, no immediate complications Result [facility] Erica Castillo APRN IV THERAPY ORDERABLES Evelyn l Result * (ABNORMAL) POCT arterial blood gas gem (10/30/2024 8:49 AM EDT) pH, Arterial 7.39 7.31 - 7.42 10/30/2024 8:50 AM EDT [facility] pCO2, Arterial 40 35 - 48 mm Hg 10/30/2024 8:50 AM [facility] pO2, Arterial 70(L) >80 mm Hg 10/30/2024 8:50 AM [facility] SO2, Arterial 96 94 - 98 % 10/30/2024 8:50 AM [facility] FIO2 40.0 % 10/30/2024 8:50 AM [facility] Base Excess, Arterial -0.7 -2 - 3 mmol/L 10/30/2024 8:50 AM [facility] HCO3, Arterial 24.2 22 - 26 mmol/L 10/30/2024 8:50 AM [facility] Total Hemoglobin, Arterial, Whole Blood 9.4(L) 11.2 - 15.7 g/dL 10/30/2024 8:50 AM [facility] Hematocrit, Arterial 28.0(L) 34.0 - 45.0 % 10/30/2024 8:50 AM [facility] Sodium, Arterial 141 136 - 145 mmol/L 10/30/2024 8:50 AM [facility] Potassium, Arterial 3.6 3.6 - 4.9 mmol/L 10/30/2024 8:50 AM [facility] Chloride, Whole Blood 107 97 - 107 mmol/L 10/30/2024 8:50 AM [facility] Glucose, Arterial 128(H) 74 - 99 mg/dL 10/30/2024 8:50 AM [facility] Ionized Calcium, Arterial 4.6 4.6 - 5.1 mg/dL 10/30/2024 8:50 AM [facility] Lactate, Arterial 2.2(H) 0.5 - 1.6 mmol/L 10/30/2024 8:50 AM [facility] Body Temperature 36.2 Celsius 10/30/2024 8:50 AM [facility] pH, Temp Corrected, Arterial 7.40 7.31 - 7.42 10/30/2024 8:50 AM [facility] pCO2, Temp Corrected, Arterial 39 35 - 48 mm Hg 10/30/2024 8:50 AM [facility] pO2, Temp Corrected, Arterial 66(L) >80 mm Hg 10/30/2024 8:50 AM [facility] Victorian Literature Professor ARI Asiya Pereiraine 10/30/2024 8:50 AM EDT [facility] Blood, Arterial Whole blood specimen / Unknown 10/30/2024 8:49 AM EDT 10/30/2024 8:50 AM EDT us Katharine Savage MD LAB POINT OF CARE TE ST DOCKED DEVICE UNSOLICITED RESULTS Final Result Performing Organization Address City/[facility]/ZIP Co de Phone Number [facility] [address] [place] [address] * Prepare Leukocyte Reduced Platelets: 2 Units (10/30/2024 7:15 AM EDT) Product Code Q3210G35 CH BLOO D BANK Dispense Status Transfused BLOOD BANK Blood Expiration Date [id number] BLOOD BANK Unit Number [id number] CH B LOOD BANK Product Blood Type 7300 BLOOD BANK Blood Type B+ CH BLOOD BANK Product Code K9713P51 CH BLOO D BANK Dispense Status Transfused BLOOD BANK Blood Expiration Date [id number] BLOOD BANK Unit Number [id number] CH B LOOD BANK Product Blood Type 6200 BLOOD BANK Blood Type A+ BLOOD BANK Blood Venous blood specimen / Unknown us Erica Castillo APRN BLOOD BANK PRODUCT ORDERAB LES Final Result Performing Organization Address [facility] [[email or web address]] de Phone Number BLOOD BANK [address] [place] [address] * (ABNORMAL) Lactate, venous (10/30/2024 6:45 AM EDT) Lactate, Venous, Whole Blood 2.8(H) 0.5 - 2.2 mmol/L LAB HEMATOLOGY METHOD 10/30/2024 6:58 AM EDT [facility] Blood Venous blood specimen / Unknown Venipuncture / Unknown 10/30/2024 6:45 AM EDT 10/30/2024 6:57 AM EDT us Chirag Zambrano PA LAB BLOOD ORDERABLES Final Res ult [facility] [address] [place] [address] * Phosphorus (10/30/2024 6:45 AM EDT) Phosphorus, Plasma 3.2 2.5 - 4.5 mg/dL 10/30/2024 7:24 AM EDT [facility] Blood Venous blood specimen / Unknown Venipuncture / Unknown 10/30/2024 6:45 AM EDT 10/30/2024 6:51 AM EDT Chirag Bernstein Imel PA LAB BLOOD ORDERABLES Final Res ult Performing Organization Address City/[facility]/ZIP Co de Phone Number [facility] [address] [place] [address] * (ABNORMAL) Magnesium (10/30/2024 6:45 AM EDT) Magnesium, Plasma 1.8(L) 1.9 - 2.4 mg/dL 10/30/2024 7:24 AM EDT [facility] Blood Venous blood specimen / Unknown Venipuncture / Unknown 10/30/2024 6:45 AM EDT 10/30/2024 6:51 AM EDT us Chirag Campoverdeel PA LAB BLOOD ORDERABLES Final Res ult Performing Organization Address City/[facility]/ZIP Co de Phone Number [facility] [address] [place] [address] * (ABNORMAL) Basic Metabolic Panel, Plasma (10/30/2024 6:45 AM EDT) Glucose, Plasma 119(H) 74 - 99 mg/dL 10/30/2024 7:24 AM EDT [facility] BUN, Plasma 15 8 - 23 mg/dL 10/30/2024 7:24 AM EDT [facility] Creatinine, Plasma 1.00 0.60 - 1.10 mg/dL 10/30/2024 7:24 AM EDT [facility] BUN/Creatinine Ratio 15 10/30/2024 7:24 AM EDT [facility] Sodium, Plasma 139 136 - 145 mmol/L 10/30/2024 7:24 AM EDT [facility] Potassium, Plasma 4.5 3.6 - 4.9 mmol/L 10/30/2024 7:24 AM EDT [facility] Comment:Hemolyzed, result ma y be falsely increased. Chloride, Plasma 105 97 - 107 mmol/L 10/30/2024 7:24 AM EDT [facility] CO2, Plasma 23 22 - 29 mmol/L 10/30/2024 7:24 AM EDT [facility] Anion Gap 11 6 - 16 mmol/L 10/30/2024 7:24 AM EDT [facility] Total Calcium, Plasma 8.8(L) 8.9 - 10.2 mg/dL 10/30/2024 7:24 AM EDT [facility] eGFRcr 62.3 mL/min/1.7 3m*2 10/30/2024 7:24 AM EDT [facility] Comment:Reported eGFRcr in m L/min/1.73m2 is based the CKD-EPI 2020 equation that does not use a race coefficient. Blood Venous blood specimen / Unknown Venipuncture / Unknown 10/30/2024 6:45 AM EDT 10/30/2024 6:51 AM EDT us Chirag FORBES LAB BLOOD ORDERABLES Final Res ult [facility] [address] [place] [address] * (ABNORMAL) CBC W/O Differential (10/30/2024 6:45 AM EDT) WBC Count 12.35(H) 3.70 - 10.30 10*3/uL LAB HEMATOLOGY METHOD 10/30/2024 7:21 AM EDT [facility] RBC Count 3.73(L) 3.90 - 5.20 10*6/uL LAB HEMATOLOGY METHOD 10/30/2024 7:21 AM EDT [facility] HGB 10.3(L) 11.2 - 15.7 g/dL LAB HEMATOLOGY METHOD 10/30/2024 7:21 AM EDT [facility] HCT 32.9(L) 34.0 - 45.0 % LAB HEMATOLOGY METHOD 10/30/2024 7:21 AM EDT [facility] Platelet Count 218 155 - 369 10*3/uL LAB HEMATOLOGY METHOD 10/30/2024 7:21 AM EDT [facility] MCV 88 79 - 98 fL LAB HEMATOLOGY METHOD 10/30/2024 7:21 AM EDT [facility] MCH 27.6 26.0 - 32.0 pg LAB HEMATOLOGY METHOD 10/30/2024 7:21 AM EDT [facility] MCHC 31.3 30.7 - 35.5 g/dL LAB HEMATOLOGY METHOD 10/30/2024 7:21 AM EDT [facility] RDW 12.9 11.5 - 14.5 % LAB HEMATOLOGY METHOD 10/30/2024 7:21 AM EDT [facility] MPV 10.6 8.8 - 12.5 fL LAB HEMATOLOGY METHOD 10/30/2024 7:21 AM EDT [facility] nRBC 0.0 <=0.0 per 100 WBCs LAB HEMATOLOGY METHOD 10/30/2024 7:21 AM EDT [facility] Blood Venous blood specimen / Unknown Venipuncture / Unknown 10/30/2024 6:45 AM EDT 10/30/2024 6:51 AM EDT us Chirag FORBES LAB BLOOD ORDERABLES Final Res ult [facility] [address] [place] [address] * CT Head wo IV Contrast (10/30/2024 [...] on 10/30/2024 7:04 PM Katharine Savage MD IM CT PROCEDURES Final Result * Veronica auris Surveillance by PCR (10/30/2024 4:47 AM EDT) Veronica auris PCR Result Not Detected Not Detected 10/31/2024 4:57 AM EDT [facility] Swab (Axilla and Groin) Non-blood Collection / Unknown 10/30/2024 4:47 AM EDT 10/30/2024 4:59 AM EDT Narrative [facility] - 10/31/2024 4:57 AM EDT This PCR assay was developed and its performance characteristics determined by [facility] as appropriate for clinical purposes. This assay has not been cleared or approved by the FDA, but is performed in a CLIA regulated laboratory that is qualified to perform high-complexity testing. Chirag S Imhernandez [place] LAB MICROBIOLOGY - GENERAL ORD ERABLES Final Result Performing Organization Address [facility] Co de Phone Number [facility] [address] [place] [address] * Multi Drug Resistance Test (10/30/2024 4:47 AM EDT) Culture No growth at day 1 10/31/2024 6:[address] [facility] Swab (Nares and Marley Rectal) Non-blood Collection / Unknown 10/30/2024 4:47 AM EDT 10/30/2024 4:58 AM EDT Narrative [facility] - 10/31/2024 6:37 AM EDT This test was developed and its performance characteristics determined by the [facility]. Although the media is FDA-approved, it is not FDA-approved for all specimen types submitted. The FDA has determined that such clearance or approval is not necessary. This test is used for surveillance purposes. It should not be regarded as investigational or for research. The [facility] is certified under the Clinical Laboratory Improvement Amendments of 1988 (CLIA-88) as qualified to perform high complexity clinical laboratory testing. [facility] MICRO[facility] - GENERAL ORD ERABLES Final Result Performing Organization Address [facility] Co de Phone Number [facility] [address] [place] [address] * (ABNORMAL) POCT glucose meter (10/30/2024 3:18 AM EDT) Pathologist [facility] POCT Glucose 125(H) 74 - 99 mg/dL 10/30/2024 3:20 AM EDT [facility] Comment:Accuracy of a glucos e result [...] Comment 10/30/2024 3:20 AM EDT [facility] [employer] Professor ID Doug Loya 3:20 AM EDT [facility] Device ID [id number] 10/30/2024 3:20 AM EDT [facility] Specimen Type POC Capillary 10/30/2024 3:20 AM EDT [facility] Blood Capillary blood specimen / Unknown 10/30/2024 3:18 AM EDT 10/30/2024 3:20 AM EDT us Generic Provider Poct LAB POINT OF CARE TEST DOCKED DEVICE UNSOLICITED RESULTS Final Result Performing Organization Address [facility] Co de Phone Number [facility] [address] [place] [address] * Type and Screen (10/30/2024 2:43 AM EDT) ABO/Rh O Positive 10/30/2024 4:18 AM EDT BLOOD BANK Comment:DOWNTIME RESULT ENTR Y : [id number] Antibody Screen Negative 10/30/2024 4:18 AM EDT BLOOD B[facility] Comment:DOWNTIME RESULT ENTR Y: [id number] Specimen Expiration 11/02/2024 23:59 10/30/2024 4:18 AM EDT [facility]LO[facility] B[facility] Blood Venous blood specimen / Unknown Venipuncture / Unknown 10/30/2024 2:43 AM EDT 10/30/2024 4:35 AM EDT Katharine Savage MD LAB BLOOD BANK TEST ORDERABLES E dited Result - Final Performing Organization Address City/[facility]/ZIP Co de Phone Number BLOOD BANK [address] [place] [address], * Gold Top (10/30/2024 2:40 AM EDT) Extra Hold for add-ons 10/30/2024 6:02 AM EDT [facility] Comment:Auto resulted. Blood Venous blood specimen / Unknown 10/30/2024 2:40 AM EDT 10/30/2024 3:32 AM EDT us Iker Reagan MD LAB BLOOD ORDERABLES Final Result [facility] [address] [place] [address] * Gold Top (10/30/2024 2:40 AM EDT) Extra Hold for add-ons 10/30/2024 6:02 AM EDT [facility] Comment:Auto resulted. Blood Venous blood specimen / Unknown 10/30/2024 2:40 AM EDT 10/30/2024 3:32 AM EDT us Iker Reagan MD LAB BLOOD ORDERABLES Final Result Performing Organization Address City/[facility]/ZIP Co de Phone Number [facility] [address] [place] [address] * Alcohol Profile Plasma (10/30/2024 2:40 AM EDT) Methanol Plasma <10 <10 mg/dL 7:04 AM EDT [facility] Acetone Plasma <10 <10 mg/dL 10/30/2024 7:04 AM EDT [facility] Isopropanol Plasma <10 <10 mg/dL 10/30/2024 7:04 AM EDT [facility] Ethanol Plasma <10 <10 mg/dL 10/30/2024 7:04 AM EDT [facility] Blood Venous blood specimen / Unknown Venipuncture / Unknown 10/30/2024 2:40 AM EDT 10/30/2024 3:22 AM EDT Narrative [facility] - 10/30/2024 7:04 AM EDT Test performed by Gas Chromatography at the [facility]. This test was developed and its performance characteristics determined by [facility]. It has not been cleared or approved by the FDA.The laboratory is regulated under CLIA as qualified to perform high-complexity testing. This test is used for clinical purposes only. us Katharine Savage MD LAB BLOOD ORDERABLES Final Resul t Performing Organization Address [facility]/ZIP Co de Phone Number [facility] [address] [place] [address] * Protime-INR (10/30/2024 2:40 AM EDT) Prothrombin Time 10/30/2024 4:59 AM EDT [facility] Comment: aPTT <20. Notified Baron Sofia of result correction. Corrected result: Previously reported as 13.9 sec on 10/30/2024 at 0336 EDT. INR LAB COAGULATION METHOD 10/30/2024 4:59 AM EDT [facility] Comment: aPTT <20. Notified Baron Sofia of result correction. Corrected result: Previously reported as 1.1 on 10/30/2024 at 0336 EDT. Blood Venous blood specimen / Unknown Venipuncture / Unknown 10/30/2024 2:40 AM EDT 10/30/2024 3:12 AM EDT Narrative [facility] - 10/30/2024 4:59 AM EDT aPTT <20. Notified Baron Sofia of result correction. us Katharine Savage MD LAB BLOOD ORDERABLES Edited Resu lt - Final Performing Organization Address [facility] Co de Phone Number [facility] [address] [place] [address] * (ABNORMAL) CBC W/O Differential (10/30/2024 2:40 AM EDT) WBC Count 18.78(H) 3.70 - 10.30 10*3/uL LAB HEMATOLOGY METHOD 10/30/2024 3:15 AM EDT [facility] RBC Count 4.41 3.90 - 5.20 10*6/uL LAB HEMATOLOGY METHOD 10/30/2024 3:15 AM EDT [facility] HGB 12.0 11.2 - 15.7 g/dL LAB HEMATOLOGY METHOD 10/30/2024 3:15 AM EDT [facility] HCT 38.2 34.0 - 45.0 % LAB HEMATOLOGY METHOD 10/30/2024 3:15 AM EDT [facility] Platelet Count 278 155 - 369 10*3/uL LAB HEMATOLOGY METHOD 10/30/2024 3:15 AM EDT [facility] MCV 87 79 - 98 fL LAB HEMATOLOGY METHOD 10/30/2024 3:15 AM EDT [facility] MCH 27.2 26.0 - 32.0 pg LAB HEMATOLOGY METHOD 10/30/2024 3:15 AM EDT [facility] MCHC 31.4 30.7 - 35.5 g/dL LAB HEMATOLOGY METHOD 10/30/2024 3:15 AM EDT [facility] RDW 12.6 11.5 - 14.5 % LAB HEMATOLOGY METHOD 10/30/2024 3:15 AM EDT [facility] MPV 10.1 8.8 - 12.5 fL LAB HEMATOLOGY METHOD 10/30/2024 3:15 AM EDT [facility] nRBC 0.0 <=0.0 per 100 WBCs LAB HEMATOLOGY METHOD 10/30/2024 3:15 AM EDT [facility] Blood Venous blood specimen / Unknown Venipuncture / Unknown 10/30/2024 2:40 AM EDT 10/30/2024 3:12 AM EDT Katharine Savage MD LAB BLOOD ORDERABLES Final Resul t [facility] [address] [place] [address] * (ABNORMAL) Blood gas, venous (10/30/2024 2:40 AM EDT) pH, Venous 7.31(L) 7.32 - 7.43 LAB HEMATOLOGY METHOD 10/30/2024 3:18 AM EDT [facility] pCO2, Venous 53(H) 37 - 52 mmHg LAB HEMATOLOGY METHOD 10/30/2024 3:18 AM EDT [facility] pO2, Venous 33 25 - 40 mmHg LAB HEMATOLOGY METHOD 10/30/2024 3:18 AM EDT [facility] SO2, Measured, Venous 51(L) 65 - 80 % LAB HEMATOLOGY METHOD 10/30/2024 3:18 AM EDT [facility] Base Excess, Venous -0.4 -2.0 - 3.0 mmol/L LAB HEMATOLOGY METHOD 10/30/2024 3:18 AM EDT [facility] Bicarbonate, Calculated, Venous 27(H) 22 - 26 mmol/L LAB HEMATOLOGY METHOD 10/30/2024 3:18 AM EDT [facility] Hematocrit, Whole Blood 37.6 34.0 - 45.0 % LAB HEMATOLOGY METHOD 10/30/2024 3:18 AM EDT [facility] Sodium, Whole Blood 140 136 - 145 mmol/L LAB HEMATOLOGY METHOD 10/30/2024 3:18 AM EDT [facility] Potassium, Whole Blood 4.2 3.6 - 4.9 mmol/L LAB HEMATOLOGY METHOD 10/30/2024 3:18 AM EDT [facility] Chloride, Whole Blood 103 97 - 107 mmol/L LAB HEMATOLOGY METHOD 10/30/2024 3:18 AM EDT [facility] Glucose, Whole Blood 125(H) 74 - 99 mg/dL LAB HEMATOLOGY METHOD 10/30/2024 3:18 AM EDT [facility] Lactate, Venous, Whole Blood 3.3(H) 0.5 - 2.2 mmol/L LAB HEMATOLOGY METHOD 10/30/2024 3:18 AM EDT [facility] Ionized Calcium, Whole Blood 4.7 4.6 - 5.1 mg/dL LAB HEMATOLOGY METHOD 10/30/2024 3:18 AM EDT [facility] Blood Venous blood specimen / Unknown Venipuncture / Unknown 10/30/2024 2:40 AM EDT 10/30/2024 3:11 AM EDT us Katharine Savage MD LAB BLOOD ORDERABLES Final Resul t [facility] [address] [place] [address] * XR Pelvis 1 or 2 Views [...] Leandro Escobar MD on 10/30/2024 3:19 AM us Iker Reagan MD IMG XR PROCEDURES Fin [...] and unspecified hyperlipidemia CVA (cerebral vascular accident) ([facility]) Unspecified cerebral artery occlusion with cerebral infarction Overweight (BMI 25.0-29.9) Overweight Closed fracture of right zygomatic arch, initial encounter ([facility]) documented in this encounter Admitting Diagnoses Diagnosis Intraventricular hemorrhage ([facility]) documented in this encounter Administered Medications Inactive Administered Medications - up to 3 most recent administrations Medication Order MAR Action Action Date Dose Rate Site acetaminophen (Tylenol) tablet 500 mg 500 mg, Oral, 4 times daily, First dose (after last modification) on Thu11/08/24 at 1800, Until Discontinued, Routine Given 11/12/2024 2:02 PM EDT 500 mg Given 11/12/2024 9:27 AM EDT 500 mg Given 11/11/2024 9:05 PM EDT 500 mg amLODIPine (Norvasc) tablet 5 mg 5 mg, Oral, Daily, First dose (after last modification) on Thu11/05/24 at 0900, Until Discontinued, Routine, Recovery(Phase II-Outpatient)/On Unit(Inpatient) Given 11/12/2024 9:27 AM EDT 5 mg Given 11/11/2024 8:43 AM EDT 5 mg Given 11/10/2024 8:39 AM EDT 5 mg artificial tears ophthalmic ointment As needed, Starting on Thu11/01/24 at 1436, Until Thu11/01/24 at 1549, Routine Given 11/01/2024 2:36 PM EDT 1 Application atorvastatin (Lipitor) tablet 40 mg 40 mg, Oral, Nightly, First dose (after last modification) on Thu11/03/24 at 2100, Until Discontinued, Routine Given 11/11/2024 [...] Given 11/11/2024 8:42 AM EDT 5 mg wpyhefyyez-dawdfhhaqyzmh-fpjh eine 50-325-40 MG per tablet 1 tablet 1 tablet, Oral, Every 6 hours PRN, Starting on Thu11/08/24 at 1327, Until 11/12/24 at 1807, Routine, headaches enoxaparin (Lovenox) syringe 30 mg 30 mg, [...] 9:04 PM EDT 1 Application FLUoxetine (PROzac) capsule 20 mg 20 mg, Oral, Daily, First dose on Thu11/04/24 at 0900, Until Discontinued, Routine Given 11/12/2024 9:27 AM EDT 20 mg Given 11/11/2024 8:42 AM EDT 20 mg Given 11/10/2024 8:39 AM EDT 20 mg hydrOXYzine pamoate (Vistaril) capsule 25 mg 25 [...] 1515, Until Thu11/12/24 at 1807, Routine, wheezing levothyroxine (Synthroid, Levoxyl) tablet 75 mcg 75 mcg, Oral, Every morning, First dose (after last modification) on Thu11/09/24 at 0600, Until Discontinued, Routine Given 11/12/2024 5:09 AM EDT 75 mcg Given 11/11/2024 5:37 AM EDT 75 mcg Given 11/10/2024 5:20 AM EDT 75 mcg lidocaine-EPINEPHrine (Xylocaine W/EPI) 1 %-[id number] injection As needed, Starting on Thu11/01/24 at 1429, Until Thu11/01/24 at 1549, Routine, Intraprocedure Given 11/01/2024 2:29 PM EDT 6 mL megestrol (Megace) 40 MG/ML suspension 400 mg [...] Given 11/09/2024 8:04 PM EDT 15 mg ondansetron (Zofran) injection 4 mg 4 mg, [...] Until 11/12/24 at 1807, Routine, severe pain Given 11/11/2024 8:47 PM EDT 5 mg Given 11/11/2024 8:42 AM EDT 5 mg Given 11/10/2024 10:58 PM EDT 5 mg polyethylene glycol (Miralax) packet 17 g 17 g, Oral, 2 times daily, First dose (after last modification) on Thu11/03/24 at 2100, Until Discontinued, Routine Given 11/12/2024 9:28 AM EDT 17 g Given 11/11/2024 8:47 PM EDT 17 g Given 11/04/2024 9:50 PM EDT 17 g QUEtiapine (SEROquel) tablet 100 mg 100 mg, Oral, Nightly, First dose (after last modification) on Thu11/09/24 at 2100, Until Discontinued, Routine Given 11/11/2024 8:49 PM EDT 100 mg Given 11/10/2024 9:46 PM EDT 100 mg Given 11/09/2024 8:04 PM EDT 100 mg senna-docusate (Marley-Colace) 8.6-50 MG per tablet 2 tablet 2 tablet, Oral, 2 times daily, First dose (after last modification) on Thu11/03/24 at 2100, Until Discontinued, Routine Given 11/12/2024 9:26 AM EDT 2 table ts Given 11/11/2024 8:47 PM EDT 2 tablets Given 11/05/2024 8:25 PM EDT 2 tablets tamsulosin (Flomax) 24 hr capsule 0.4 mg 0.4 mg, Oral, Daily with dinner, First dose on Thu11/03/24 at 1800, Until Discontinued, Routine Given 11/10/2024 5:35 PM EDT 0.4 mg Given 11/05/2024 6:17 PM EDT 0.4 mg Given 11/04/2024 5:48 PM EDT 0.4 mg documented in this encounter Active and Recently [...] 0843 (Given - Provider: Andreea Dean RN) 09 (Given - Provider: Melony Maldonado) amoxicillin-clavulanat e (Augmentin) 875-125 MG per tablet 1 tablet (COMPLETED) 1 tablet (875 mg), Oral, Every 12 hours, 16 doses, First dose on Thu11/04/24 at 1015, Last dose on Thu11/11/24 at 2100, Routine 0839 (Given - Provider: Jelly Clay RN)214 (Given - Provider: Pietro Valdovinos RN) 08 (Given - Provider: Andreea Dean RN)2127 (Given - Provider: Jazmin Burton RN) atorvastatin (Lipitor) tablet 40 mg 40 mg, Oral, Nightly, First dose (after last modification) on Bia 11/03/24 at 2100, Until Discontinued, Routine 2144 (Given - Provider: Pietro Valdovinos, LUANNE) 2048 [...] Jelly Clay RN)214 (Given - Provider: Pietro Valdovinos RN) 08 (Given - Provider: Andreea Dean RN)2048 (Given - Provider: Jazmin Burton RN) 09 (Given - Provider: Melony Maldonado) doxycycline (Vibra-Tabs) tablet 100 mg (COMPLETED) 100 mg, Oral, 2 times daily, 12 doses, First dose on Thu11/06/24 at 0900, Last dose on Thu11/11/24 at 2100, Routine 0840 (Given - Provider: Jelly Clay RN)214 (Given - Provider: Pietro Valdovinos RN) 0842 (Given - Provider: Andreea Dean RN)2048 (Given - Provider: Jazmin Burton RN) enoxaparin (Lovenox) syringe 30 mg 30 mg, Subcutaneous, 2 times daily, First dose on Thu10/31/24 at 2100, Until Discontinued, Routine 0839 (Given - Provider: Jelly Clay RN)214 (Given - Provider: Pietro Valdovinos RN) 0843 (Given - Provider: Andreea Dean RN)204 (Given - Provider: Jazmin Burton RN) 0924 [...] Valdovinos RN)1304 (Given - Provider: Andreea Dean RN)2104 (Given - Provider: Jazmin Burton RN) 0509 (Given - Provider: Jazmin Burton RN)1402 (Given - Provider: Melony Maldonado) FLUoxetine (PROzac) capsule 20 mg 20 mg, Oral, Daily, First dose on Thu11/04/24 at 0900, Until Discontinued, Routine 0839 (Given - Provider: Jelly Clay RN) 0842 (Given - Provider: Andreea Dean RN) 09 (Given - Provider: Melony Maldonado) levothyroxine (Synthroid, [...] on Thu11/04/24 at 2100, Until Discontinued, Routine 2144 (Given - Provider: Pietro Valdovinos RN) 2048 [...] condition: must add comment - Comment: multiple bm)2214 (Not Given - [...] Pietro Valdovinos RN - Reason: Patient/family refused) 08 (Not Given - Provider: Andreea Dean RN - Reason: Hold for condition: must add comment - Comment: bm)2046 (Given - Provider: Jazmin Burton RN) 925 (Given - Provider: Melony Maldonado) tamsulosin (Flomax) [...] order) PRN Medication Order 11/10/2024 11/11/2024 11/12/2024 zicgymsefy-jnffywytyiqpp-akv feine 50-325-40 MG per tablet 1 tablet 1 tablet, Oral, Every 6 hours PRN, Starting on Thu11/08/24 at 1327, Until 11/12/24 at 1807, Routine, headaches hydrOXYzine pamoate (Vistaril) capsule 25 mg 25 mg, Oral, Every 8 hours PRN, Starting on Thu11/02/24 at 1646, Until 11/12/24 at 1807, Routine, itching 0000 (Given - Provider: Pietro Valdovinos RN)225 (Given - Provider: Pietro Valdovinos RN) 0842 [...] - Provider: Piet[facility] Valdovinos RN)0907 [facility]: Jelly Clay RN)2258 (Given - Provider: Pietro Valdovinos RN) 0842 (Given - Provider: Andreea Dean RN)2047 (Given - Provider: Jazmin Burton RN) Linked [...] documented as of this encounter 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
--- OUTSIDE RECORDS SUMMARY | 2024-11-01 13:55 | XMS_ITS | Encounter Summary ---
Author Organization Healthcare Address [address] [place] [address] Care Team Providers Care Etymology Teacher Name Role Phone Aman Hernandez MD Primary Care Provider Reason for Visit * Auth/Cert (Routine) Specialty Diagnoses / Procedures Referred By Contac t Referred To Contact Diagnoses Intraventricular hemorrhage (CMS/HCC) Fall, Retrobulbar hematoma, brain bleed Katharine Savage MD [address] [facility] [address] [place] [address] Phone: tel: fax: [facility] Inpatient [address] [place] [address] Phone: tel: Referral ID Status Reason Start Date Expiration Date Visits Re quested Visits Authorized [id number] 1 1 Encounter Details Date Type Department Care Team (Late st Contact Info) Description 11/01/2024 1:55 PM EDT Anesthesia Event [facility] OPERATING ROOM [address] [place] [address] Vernon Lim MD [address] [place] [address] Jelly Tapia PA [address] [facility] [address] [place] [address] Anesthesia Record Procedure Summary Procedure Name Responsible Anesthesiologist Anesthesia Start Time Anesthesia Stop Time ORIF, FRACTURE, ZYGOMATICOMAXILLARY COMPLEX (Right) Vernon Lim MD 11/01/24 1355 11/01/24 1602 Events Date Time Event Comment 11/01/2024 1355 An Start The patient was reevaluated immediately before sedation and remains eligible for anesthesia plan. 1355 In Room 1355 An Start Data 1403 An Induction The patient was reevaluated immediately before moderate or deep sedation use and before anesthesia induction. 1410 An Intubation 1411 Anesthesia Ready 1429 Proc Start 1529 An Extubation 1541 Proc Fin 1543 an stop data 1549 Out of Room 1601 Handoff to Receiving I compl eted my handoff to the receiving clinician during which we: 1. Identified the patient 2. Identified the responsible provider 3. Reviewed the pertinent medical history 4. Discussed the surgical course 5. Reviewed intra-op anesthesia management and issues during anesthesia 6. Set expectations for post-procedure period 7. Allowed opportunity for questions and acknowledgement of understanding. 1602 An Stop Meds Name Total fentaNYL (Sublimaze) injection 50 mcg/mL 100 mcg lidocaine PF (Xylocaine-MPF) 2% 60 mg propofol (Diprivan) injection 10 mg/mL 2 00 mg rocuronium (ZeMuron) injection 10 mg/mL 80 mg dexamethasone (Decadron) injection 4 mg/ mL 4 mg HYDROmorphone PF (Dilaudid) injection 1 mg/mL 1 mg phenylephrine (Avtar-Synephrine) prefilled syringe 1 mg/10 mL 100 mcg ondansetron (Zofran) injection 2 mg/mL 4 mg sugammadex (Bridion) injection 100 mg/mL 300 mg ampicillin-sulbactam (Unasyn) vial 3 g 3 g dexmedetomidine (Precedex) infusion in N aCl 4 mcg/mL 24 mcg esmolol (Brevibloc) infusion 10 mg/mL 30 mg glycopyrrolate (Robinul) injection 0.2 m g/mL 0.2 mg meToprolol tartrate (Lopressor) injectio n 2 mg labetalol (Normodyne,Trandate) injection 5 mg/mL 5 mg calcium chloride injection 10% 0.5 g sodium chloride 0.9 % infusion 500 mL * Agents Name O2 N2O Air Sevoflurane Isoflurane Desflurane Inspired Desflurane Inspired Isoflurane Inspired Sevoflurane N2O Inspired N2O * Blood No blood administrations on file. Lines, Drains, and Airways Type Details Placement Removal Wound 11/01/24; 1429; N; Y es; Surgical (surgical incision); Right 11/01/24 1429 by Zac Manning RN Peripheral IV Placement Date: 09/16; Catheter Size: 20 G; Orientation: Left; Location: Antecubital; Site Prep: Alcohol; Insertion Attempts: 1; Patient Tolerance: Tolerated well; Removal Date: 11/12/24; Removal Time: 0430; Removal Reason: Removed by patient 10/30/24 0000 by Earline Ridley RN 11/12/24 0430 by Jazmin uBrton RN Peripheral IV Orientation: Anterio r, Left; Location: Forearm; Removal Date: 11/06/24; Removal Time: 1159; Removal Reason: Per patient/family request 10/30/24 0301 by 11/06/24 1159 by Gallo Posey Peripheral IV Placement Date: 09/16; Placement Time: 0320; Catheter Size: 20 G; Orientation: Right; Location: Antecubital; Removal Date: 11/06/24; Removal Time: 1200; Removal Reason: Per patient/family request 10/30/24 0320 by Baron Vo 11/06/24 1200 by Gallo Posey Urethral Catheter Placement Date: 09/16; Placement Time: 0400; Removal Date: 11/02/24; Removal Time: 0000; Removal Reason: Per order 10/30/24 0400 by Baron Vo 11/02/24 0000 by Javi Frank RN Peripheral IV Placement Date: 09/16; Placement Time: 0900; Catheter Size: 18 G; Orientation: Anterior, Distal, Right; Location: Forearm; Technique: Anatomical landmarks; Insertion Attempts: 1; Patient Tolerance: Tolerated well; Removal Date: 11/06/24; Removal Time: 1200; Removal Reason: Per patient/family request 10/30/24 0900 by Suzy Lopez RN 11/06/24 1200 by Gallo Posey Arterial Line Placement Date: 09/16; Placement Time: 0900; Orientation: Right; Location: Radial; Site Prep: Alcohol; Technique: Ultrasound guidance; Insertion Attempts: 1; Securement: Taped; Removal Date: 11/02/24; Removal Time: 1430; Removal Reason: Per order 10/30/24 0900 by Suzy Lopez RN 11/02/24 1430 by Emanuel Villavicencio RN Feeding Tube Placement Date: 09/16; Placement Time: 1059; Inserted by: FT Team; Type: Gastric; Size: 10 Fr.; Location: Left nare; Removal Date: 11/09/24; Removal Time: 0141 10/30/[address] 11/09/24 0141 by Sindi Porter RN CVC Triple Lumen Placement Date: 09/16; Placement Time: 1545; Hand Hygiene: Yes; Site Prep: Chlorhexidine ; Site Prep Agent Dried: Yes; Sterile Barrier Used: Yes; Medical Reason for Not Performing Maximal Sterile Barrier Technique: No; Orientation: Right; Removal Date: 11/02/24; Removal Time: 0100; Removal Reason: Per order 10/30/24 1545 by Suzy Lopez RN 11/02/24 0100 by Javi Frank RN ETT Placement Date: 11/17; Placement Time: 1410 (created via procedure documentation); Mask Ventilation: 1; Technique: Video laryngoscopy; Type: ETT - single; Single Lumen Tube Size: 7 mm; Cuffed: Yes; Laryngoscope: (glide); Blade Size: 3; Location: Oral; Grade View: Grade I; Insertion Attempts: 1; Placement Verification: Auscultation, Capnometry; Airway Comments: Atraumatic. No change to dentition. Easy mask. Poor neck extension. Easy glide.; Placed by: ROBY; Removal Date: 11/01/24; Removal Time: 15211/01/24 1410 by Masha Jurado CRNA 11/01/24 1529 by Amado Ash CRNA documented in this encounter Social History Tobacco [...] any time in the past 12 m [facility], were you homeless or living in a senior care (including now)? Patient unable to answer 10/31/2024 [facility] Utilities Answer Date Recorded In the past [...] on file documented as of this encounter Miscellaneous Notes * Anesthesia Postprocedure Evaluation - Amado Ash CRNA - 11/01/2024 4:02 PM EDT Patient: [place] Mata Anesthesia Type: general Vitals Value Taken Time BP 135/67 11/01/24 16:00 Temp 36.6 11/01/24 16:02 Pulse 88 11/01/24 16:01 Resp 26 11/01/24 16:01 SpO2 95 % 11/01/24 16:01 Vitals shown include unfiled device data. Anesthesia Post Evaluation Patient location during evaluation: PACU Level of consciousness: responsive to physical stimuli Pain management: adequate (pain score 0-3) Airway patency: supraglottic device Cardiovascular status: acceptable Respiratory status: acceptable, oral airway, face mask, nonlabored ventilation, unassisted and spontaneous ventilation Hydration status: acceptable Nausea/Vomiting: No No notable events documented. * Anesthesia Procedure Notes - Masha Jurado CRNA - 11/01/2024 2:27 PM EDT Associated Order(s): Airway Airway Date/Time: 11/01/2024 2:10 PM Reason: elective Airway not difficult General Information and Staff Patient location during procedure: OR Performed: ROBY Patient Condition Indications for airway management: anesthesia Patient position: sniffing Final Airway Details Final airway type: endotracheal airway Successful airway: ETT Cuffed: yes Successful intubation technique: video laryngoscopy Adjuncts used in placement: intubating stylet Endotracheal tube insertion site: oral Blade: other (glide) Blade size: #3 ETT size (mm): 7.0 Cormack-Lehane Classification: grade I - full view of glottis Placement verified by: chest auscultation and capnometry Measured from: lips ETT to lips (cm): 21 Additional Comments Atraumatic. No change to dentition. Easy mask. Poor neck extension. Easy glide. * Anesthesia Preprocedure Evaluation - Vernon Lim MD - 11/01/2024 11:21 AM EDT Images from the original note were not included. Procedure Information Date/Time: 11/01/24 1319 Procedures: ORIF, FRACTURE, ZYGOMATICOMAXILLARY COMPLEX (Right) ORIF, FRACTURE, ORBIT, FLOOR (Right) Location: TSA 3 / JOSE OR Surgeons: Yobani Benoit MD GUZMAN Mata is a 64 y.o. female with body mass index is 26.41 kg/m??. who Presents s/p fall. Reversed with DDAVP. Injuries include: tSAH, IVH, R tripod fx with non-displaced ZMG, R globe hematoma s/p lateral canthotomy at OSH. Now for above procedure PMH: CVA, R sided defecits on ASA/Plavix, HTN, HLD, CAD, carotid artery disease (Right internal carotid artery demonstrates greater than 70% stenosis but less than near occlusion. Left carotid stent is patent without evidence of in-stent restenosis), hypothyroidism *on 5L NC, repeat chest xray pending. Extubated to NC yesterday. NPO STATUS: TF off since MN Activity Level/METS: borderline 4 mets, uses walker at home Type & Screen Expires: 11/02 Lab Results Component Value Date ABO O Positive 10/30/2024 ALLERGIES Allergies[1] MEDICATIONS Outpatient Current Outpatient Medications Medication Instructions amLODIPine (NORVASC) [...] as needed. QUEtiapine (SEROQUEL) 150 mg, Nightly Scheduled Current Scheduled Medications[2] PRNs Current PRN Medications[3] SURGICAL HX: Surgical History[4] SOCIAL HX: Social History[5] OBJECTIVE DATA Blood pressure (!) 116/43, pulse 81, temperature 37.2 ??C (99 ??F), resp. rate 17, height 1.6 m (5'2.99 ), weight 67.6 kg (149 lb 0.5 oz), SpO2 94%. LABS Lab Results Component Value Date WBC 9.34 10/31/2024 HGB 8.1 (L) 10/31/2024 HCT 26.5 (L) 10/31/2024 MCV 89 10/31/2024 PLT 179 10/31/2024 Lab Results Component Value Date CALCIUM 7.7 (L) 10/31/2024 BUN 16 10/31/2024 CREATININE 0.80 10/31/2024 BCR 20 10/31/2024 NA 143 10/31/2024 K 4.0 10/31/2024 CL 111 (H) 10/31/2024 CO2 22 10/31/2024 ANIONGAP 10 10/31/2024 INR Date Value Ref Range Status 10/30/2024 Corrected Comment: aPTT <20. Notified Baron Black of result correction. Corrected result: Previously reported as 1.1 on 10/30/2024 at 0336 EDT. Lab Results Component Value Date HGBA1C 5.7 (H) 07/20/2024 GLUCOSE 133 (H) 10/31/2024 ABG No results found for: PHART , QJV4RZP , PO2ART , SO2ART , BEART , ATH0XUL , HCTART , SODIUMART , POTASSIUMART , POCTCL , POCGLU , IONCALART , LACTATE Lab Results Component Value Date HOLLIE 4.6 10/31/2024 EKG ECHO at OSH 07/20/24: Left ventricular systolic function is normal. Estimated left ventricular EF = 60% Left ventricular wall thickness is consistent with mild concentric hypertrophy. No hemodynamically significant valvular disease present. Saline test results are negative. Carotid duplex OSH 07/20/24: Right internal carotid artery demonstrates greater than 70% stenosis but less than near occlusion. Right vertebral flow not noted. Vessel is possibly occluded. Left carotid stent is patent without evidence of in-stent restenosis. Antegrade left vertebral flow. Physical Exam Airway Mallampati: III Neck ROM: limited Cardiovascular Rhythm: regular Rate: normal Dental Pulmonary (+) decreased breath sounds Neurological Oriented: normal to time, normal to place and normal to person Skin Musculoskeletal Extremities Other findings: Unable to eval. Anesthesia Plan ASA 3 Plan was reviewed with: attending, resident and VP [employer] Anesthesia technique(s) discussed with the patient/family: general Anesthesia plan agreed upon was: general Anesthetic plan and risks discussed with patient and healthcare power of tax associate attorney. Use of blood products discussed with patient and healthcare power of tax associate attorney who consented to blood products. ROS Anesthesia: Date of last anesthetic: >1 yr ago No issues with prior GA history of previous anesthesia. Does not have a history of anesthetic complications, obstructive sleep apnea and PONV. Cardiovascular: CAD, carotid artery disease and hyperlipidemia. hypertension: Respiratory: home oxygen. no asthma: no COPD: Respiratory ROS additional comments: Hx recurrent pneumonia HEENT: Does not have loose teeth or missing teeth. Neurological: no seizures: a cerebrovascular accident. Musculoskeletal: Does not have cervical spine instability. Gastrointestinal: Does not have GERD.Does not have cirrhosis. Genitourinary: chronic renal disease: Hematological/Lymphatic: History of no DVT. History of no pulmonary embolism. no history of chemotherapy no history of radiation Endocrine/Metabolic: does not have diabetes mellitus. Does not have thyroid disorder. [1] Allergies Allergen Reactions Cephalosporins Other - please document in the comment field Other Other - please document in the comment field Vicryl sutures Penicillin G Unknown - Patient states they do not know rxn details Penicillins Other - please document in the comment field [2] acetaminophen, 1,000 mg, Nasogastric, q6h BACILIO atorvastatin, [...] q12h sodium chloride, 10 mL, Intravenous, q12h [COMPLETED] Insert peripheral IV, , , Once AND [COMPLETED] Saline lock IV, , , Once AND sodium chloride, 10 mL, Intravenous, q12h AND sodium chloride, 10 mL, Intravenous, PRN [3] PRN medications: HYDROmorphone OR HYDROmorphone, oxyCODONE, [COMPLETED] Insert peripheral IV AND [COMPLETED] Saline lock IV AND sodium chloride AND sodium chloride, sodium chloride, sodium chloride, sodium chloride, sodium chloride [4] Past Surgical History: Procedure Laterality Date CAROTID STENT LUNG SURGERY ORAL SURGERY RENAL ARTERY STENT REPLACEMENT TOTAL HIP LATERAL POSITION TONSILLECTOMY [5] Social History Tobacco Use Smoking status: Former Current packs/day: 1.00 Average packs/day: 1 pack/day for 40.0 years (40.0 ttl pk-yrs) Types: Cigarettes Passive exposure: Never Smokeless tobacco: Never documented in this encounter Plan of Treatment Upcoming Encounters Date Type Department Care Team (Late st Contact Info) Description 12/15/2024 12:00 PM EDT Appointment [facility] V[facility] Lab [address] [address] 12/15/2024 1:30 PM EDT Office Visit [facility] [address] [place] [address] Raymond Nuñez MD [address] [place] [address] 12/30/2024 1:00 PM EST Office Visit [facility] Ot[facility] [address] [place] [address] Yobani Benoit MD [address] [place] [address] 05/24/2025 2:30 PM EDT Office Visit [facility] [address] [place] [id number] Navya Woody MD [address] [place] [address] 06/07/2025 2:00 PM EDT Consult [facility] [address] [place] [address] Haseeb Dias MD [address] [place] [address] documented as of this encounter Procedures Procedure Name Priority Date/Time Associated Diagnosis Comments PB ANESTHESIA PLACEHOLDER Routine 11/01/2024 2:10 PM EDT [place] AN ELECTIVE ENDOTRACHEAL AIRWAY Routine 11/01/2024 2:10 PM EDT documented in this encounter Results * [place] AN ELECTIVE ENDOTRACHEAL AIRWAY, PB ANESTHESIA PLACEHOLDER (11/01/2024 2:10 PM EDT) Narrative Masha Jurado CRNA - 11/01/2024 2:10 PM EDT Masha Jurado CRNA 11/01/2024 2:30 PM Airway Date/Time: 11/01/2024 2:10 PM Reason: elective Airway not difficult General Information and Staff Patient location during procedure: OR Performed: [facility] [employer] Patient Condition Indications for airway management: anesthesia Patient position: sniffing Final Airway Details Final airway type: endotracheal airway Successful airway: ETT Cuffed: yes Successful intubation technique: video laryngoscopy Adjuncts used in placement: intubating stylet Endotracheal tube insertion site: oral Blade: other (glide) Blade size: #3 ETT size (mm): 7.0 Cormack-Lehane Classification: grade I - full view of glottis Placement verified by: chest auscultation and capnometry Measured from: lips ETT to lips (cm): 21 Additional Comments Atraumatic. No change to dentition. Easy mask. Poor neck extension. Easy glide. Vernon Lim MD ANESTHESIA ORDERABLES Final Resu lt documented in this encounter Visit Diagnoses Not on filedocumented in this encounter Administered Medications Inactive Administered Medications - up to 3 most recent administrations Medication Order MAR Action Action Date Dose Rate Site ampicillin-sulbactam (Unasyn) injection Intravenous, As needed, Starting on Thu11/01/24 at 1428, Until Thu11/01/24 at 1602, Routine, Anesthesia Intraprocedure Given 11/01/2024 2:28 PM EDT 3 g calcium chloride 10 % injection Intravenous, As needed, Starting on Thu11/01/24 at 1521, Until Thu11/01/24 at 1602, Routine, Anesthesia Intraprocedure Given 11/01/2024 3:21 PM EDT 0.5 g dexamethasone (Decadron) injection Intravenous, As needed, Starting on Thu11/01/24 at 1403, Until Thu11/01/24 at 1602, Routine, Anesthesia Intraprocedure Given 11/01/2024 2:03 PM EDT 4 mg dexmedetomidine in NS (Precedex) 4 mcg/mL infusion Intravenous, As needed, Starting on Thu11/01/24 at 1413, Until Thu11/01/24 at 1602, Routine Given 11/01/2024 3:21 PM EDT 8 mcg Given 11/01/2024 2:32 PM EDT 8 mcg Given 11/01/2024 2:13 PM EDT 8 mcg esmolol (Brevibloc) infusion 10 mg/mL Intravenous, As needed, Starting on Thu11/01/24 at 1436, Until Thu11/01/24 at 1602, STAT, Anesthesia Intraprocedure Given 11/01/2024 2:36 PM EDT 30 mg fentaNYL (Sublimaze) injection Intravenous, As needed, Starting on Thu11/01/24 at 1403, Until Thu11/01/24 at 1602, Routine, Anesthesia Intraprocedure Given 11/01/2024 2:27 PM EDT 50 mcg Given 11/01/2024 2:03 PM EDT 50 mcg glycopyrrolate (Robinul) injection Intravenous, As needed, Starting on Thu11/01/24 at 1507, Until Thu11/01/24 at 1602, Routine, Anesthesia Intraprocedure Given 11/01/2024 3:07 PM EDT 0.2 mg HYDROmorphone PF (Dilaudid) injection Intravenous, As needed, Starting on Thu11/01/24 at 1430, Until Thu11/01/24 at 1602, Routine, Anesthesia Intraprocedure Given 11/01/2024 2:59 PM EDT 0.3 mg Given 11/01/2024 2:47 PM EDT 0.2 mg Given 11/01/2024 2:30 PM EDT 0.5 mg labetalol (Normodyne,Trandate) injection Intravenous, As needed, Starting on Thu11/01/24 at 1511, Until Thu11/01/24 at 1602, Routine, Anesthesia Intraprocedure Given 11/01/2024 3:11 PM EDT 5 mg lidocaine PF (Xylocaine) 2 % injection Intravenous, As needed, Starting on Thu11/01/24 at 1403, Until Thu11/01/24 at 1602, Routine, Anesthesia Intraprocedure Given 11/01/2024 2:03 PM EDT 60 mg metoprolol tartrate (Lopressor) injection Intravenous, As needed, Starting on Thu11/01/24 at 1509, Until Thu11/01/24 at 1602, Routine, Anesthesia Intraprocedure Given 11/01/2024 3:09 PM EDT 2 mg ondansetron (Zofran) injection Intravenous, As needed, Starting on Thu11/01/24 at 1516, Until Thu11/01/24 at 1602, Routine, Anesthesia Intraprocedure Given 11/01/2024 3:16 PM EDT 4 mg phenylephrine in NS (Avtar-Synephrine) 100 mcg/mL prefilled syringe Intravenous, As needed, Starting on Thu11/01/24 at 1424, Until Thu11/01/24 at 1602, Routine, Anesthesia Intraprocedure Given 11/01/2024 2:24 PM EDT 100 mcg propofol (Diprivan) injection Intravenous, As needed, Starting on Thu11/01/24 at 1403, Until Thu11/01/24 at 1602, Routine, Anesthesia Intraprocedure Given 11/01/2024 2:27 PM EDT 50 mg Given 11/01/2024 2:14 PM EDT 50 mg Given 11/01/2024 2:03 PM EDT 100 mg rocuronium (ZeMuron) injection Intravenous, As needed, Starting on Thu11/01/24 at 1403, Until Thu11/01/24 at 1602, Routine, Anesthesia Intraprocedure Given 11/01/2024 2:59 PM EDT 20 mg Given 11/01/2024 2:03 PM EDT 60 mg sodium chloride 0.9 % infusion 75 mL/hr, Intravenous, Continuous, Starting on Thu10/30/24 at 0415, Until Thu11/02/24 at 1018, Routine New Bag 11/01/2024 5:53 PM EDT 75 mL/ hr 75 mL/hr Restarted 11/01/2024 1:55 PM EDT Rate/Dose Verify 11/01/2024 10:00 AM EDT 75 mL/hr 75 mL/ hr sugammadex (Bridion) 100 MG/ML injection Intravenous, As needed, Starting on Thu11/01/24 at 1521, Until Thu11/01/24 at 1602, Routine, Anesthesia Intraprocedure Given 11/01/2024 3:29 PM EDT 100 mg Given 11/01/2024 3:23 PM EDT 100 mg Given 11/01/2024 3:21 PM EDT 100 mg documented in this encounter Additional Health Concerns Assessment Noted Time PHQ-9 Depression Total Score: 24 024 3:18 PM EDT A fall risk assessment has been complete d for the patient 07/08/2021 2:00 PM EDT A Body Mass Index follow-up plan has been documented for the patient 11/12/2024 2:21 PM EDT documented as of this encounter Care Teams Etymology Teacher Relationship Specialty Start Date End Date Aman Hernandez MD [address] [address] PCP - General Family Medicine 06/18/21 documented as of this encounter
--- OUTSIDE RECORDS SUMMARY | 2024-11-15 10:30 | XMS_ITS ---
Author Organization [facility] D [facility] Address [address] [facility] [address] [place] [address] Care Team Providers Care Insurance Consultant Name Role Phone Yonny Scott Primary Care Provider Reanna Perdomo [phone] Allergies Allergen (clinical drug ingredient) Drug/Non Drug Allergy documented on EMR Reaction Allergy Type Onset Date Status Penicillin Unknown Drug Allergy Active REASON FOR VISIT [facility] Medications Medication SIG (Take, Route, Frequency, Duration) Notes Start Date End Date Status QUEtiapine Fumarate 150 MG 1 tablet at b edtime Orally Once a day 08/22/2024 Active Levothyroxine Sodium 75 MCG 1 tablet in the morning on an empty stomach Orally Once a day; Duration: 30 days 09/26/2024 Active FLUoxetine HCl 20 mg TAKE 1 CAPSULE BY M OUTH ONCE A DAY; Duration: 30 Active Atorvastatin Calcium 40 MG 1 tablet Oral ly Once a day; Duration: 90 days Active Mirtazapine 15 MG 1 tablet at bedtime Orally Once a day; Duration: 90 days 07/11/2024 Active Clopidogrel Bisulfate 75 MG 1 tablet Ora lly Once a day; Duration: 90 days 08/31/2024 Active oxyBUTYnin Chloride ER 5 MG 1 tablet Ora lly Once a day; Duration: 90 days 08/31/2024 Active Baclofen 5 MG 1 tablet Orally twic e a day Active amLODIPine Besylate 5 mg one tab orally daily; Duration: 90 days Active Aspirin 81 MG 1 tablet Orally Once a day Active Multigen Folic 70-150-2-1 MG 1 tablet Orally Once a day Active Erythromycin 5 MG/GM 1 application into the lower eyelid of affected eye Ophthalmic Four times a day Active Tamsulosin HCl 0.4 MG 1 capsule Orally O nce a day Active Losartan Potassium 50 MG 1 tablet Orally Once a day Active Social History Tobacco Use: Social History Observation Description Date Details (start date - stop date) Former Smoker NA - NA Smoking: Question Answer Notes Are you a: former smoker How long has it been since you last smoked? 6-12 months Problems Problem Type SNOMED Code ICD Code Onset Dates Problem Status W/U Status Risk Notes Problem Late effects of cerebrovascular disease (675832708) History of CVA with residual deficit (I69.30) Active confirmed Problem Recurrent falls (752580180) Frequent falls (R29.6) Active confirmed Problem Chronic pain (92191918) Other chronic pain (G89.29) Active confirmed Vital Signs Temperature 97.3 degrees Fahrenheit 11/16/19 25 Heart Rate 70 /min 11/15/2024 Blood pressure systolic 129 mm Hg 11/16/19 25 Blood pressure diastolic 59 mm Hg 025 Height 63.5 in 11/15/2024 Weight 121 lbs 11/15/2024 BMI 21.1 kg/m2 11/15/2024 Encounters Encounter Location Date Provider Diagnosis [address] [address] 11/15/2024 Reanna Perdomo Multiple closed frac tures of facial bone, sequela S02.92XS ; Other specified postprocedural states Z98.890 ; Personal history of (healed) traumatic fracture Z87.81 ; Physical debility R53.81 ; History of CVA with residual deficit I69.30 ; Mood disorder F39 ; Frequent falls R29.6 ; Acquired hypothyroidism E03.9 ; Chronic insomnia F51.04 ; RLS (restless legs syndrome) G25.81 ; PVD (peripheral vascular disease) I73.9 ; Other chronic pain G89.29 and Hospital discharge follow-up Z09 Assessments Encounter Date Diagnosis (ICD Code) Assessment Notes Treatment Notes Treatment Clinical Notes Section Notes 11/15/2024 Multiple closed fractures of facial bone, sequela (ICD-10 - S02.92XS) Hospital documentation reviewed. Antibiotics and sinus precautions completed. Has resumed AC for stroke prevention and PVD management. FU with ENT recommended Will stop megace 11/15/2024 Other specified postprocedural states (ICD-10 - Z98.890) 11/15/2024 Personal history of (healed) traumatic fracture (ICD-10 - Z87.81) 11/15/2024 Physical debility (ICD-10 - R53.81) PT, OT, ST to eval and treat as indicated. Was quite debilitated prior to this fall with fracture, rehab potential is guarded 11/15/2024 History of CVA with residual deficit (ICD-10 - I69.30) continue statin, DAPT 11/15/2024 Mood disorder (ICD-10 - F39) continue seroquel, mirtazepine 11/15/2024 Frequent falls (ICD-10 - R29.6) PT/OT following 11/15/2024 Acquired hypothyroidism (ICD-10 - E03.9) continue daily replacement 11/15/2024 Chronic insomnia (ICD-10 - F51.04) seroquel, mirtazepine as noted 11/15/2024 RLS (restless legs syndrome) (ICD-10 - G25.81) has PRN order for mirapex 11/15/2024 PVD (peripheral vascular disease) (ICD-10 - I73.9) continue statin, aspirin and refrain from smoking 11/15/2024 Other chronic pain (ICD-10 - G89.29) no pain complaints today, monitor 11/15/2024 Hospital discharge follow-up (ICD-10 - Z09) FU labs ordered to monitor hepatorenal function and blood counts Plan Of Treatment Next Appt Details Follow Up: 4 Weeks, Reason: Progress Notes * [place] JORDAN RaeDOB:[birth year] (64 yo F)Acc No.[id number]:11/15/2024 Patient: [place] CHISHOLM Rae Provider: MADELIN Reid :1960 A ge:64 Y S ex:Female Date:11/15/2024 Address:[address] [facility] [address], [id number] Pcp:Yonny Scott Subjective: * Chief Complaints: * 1 . [facility] [place] Admission. * HPI: I ntrim History: Transition of care visit from hospital D ate of admission to hospital: 0 10/30/2024, D ate of receipt of hospital admission report: 0 11/12/2024,?Date of discharge from hospital: 0 11/12/2024, D ate of receipt of hospital discharge summary: 0 11/12/2024, D ischarge medications reviewed and reconciled from hospital: M edications changed (e.g. discontinued, changed or added). Seen today at [place] for transition from [facility]. Admitted there after sufferring a fall, at her sister's home, and striking her face. Required ORIF right zygomatic arch and right orbital wall. Sinus precautions complete and AC has been resumed. Sister is at bedside today at time of visit. She was able to walk today with therapies but with max assist. Denies pain at time of exam. Is to have outpatient FU with ENT. She does report good appetite and is on both mirtazepine and megace. * ROS: R ESPIRATORY: Reviewed, No Symptoms Reported: Y es. C ARDIOLOGY: no C hest pain. L eg edema y es. C ONSTITUTIONAL: no L oss of appetite. n o F ever. W eakness?yes, i mproving. D ERMATOLOGY: no R cinthia. G ASTROENTEROLOGY: no V omiting. n o A bdominal pain. n o D iarrhea. C onstipation y es, i mproved with treatment. N EUROLOGY: no S eizures. n o I nsomnia. M casa loss yes, b aseline. P SYCHOLOGY: Depression y es. U ROLOGY: no D ifficulty urinating, o n flomax. * Medical History: H ypothyroidism, Fibromyalgia, HTN, Insomnia, Degenerative Disc Disease, Restless Leg Syndrome, Possible seizure, Alcoholism - recovering, Chronic pain, myofascial and degenerative joint disease, Stroke 03/2020, Stroke 11/2022, Fall with facial trauma 10/2024. * Surgical History: i nfecton in lungs [...] down kidneys , rt hip replacement 07/28/2016, [facility]- stroke 11/2022, [facility] 05/2024, Stroke 07/19/2024, [facility] - fall with facial trauma 10/2024. * Family History: F ather: , maybe lung cancer. M other: , diabetes, may have had some kind of cancer. P aternal Grand Father: , diagnosed with Diabetes. P aternal Grand Mother: . M aternal Grand Father: . M aternal Grand Mother: . P aternal uncle: . P aternal aunt: alive. M aternal uncle: . M aternal aunt: . S iblings: alive, brother back problems, htn, heart surgery, knees replaced, diabetes, CAD. C hildren: alive, back problem. 4 brother(s) , 4 sister(s) - healthy. 2 son(s) - healthy. . N on-Contributory. * Social History: S moking A re you a: f ormer smoker, H ow long has it been since you last smoked??6-12 months. R ecreational drug use: no. Exercise: no. Home smoke detector use: yes. Caffeine: yes, 1 soda daily. Living Will: Yes. Alcohol: no, recovering alcoholic- 10 years sober. Sexually active: yes. Travel outside [place]: no. Occupation: disabled. * Medications: T aking Multigen Folic 70-150-2-1 MG Tablet 1 tablet Orally Once a day , Taking Tamsulosin HCl 0.4 MG Capsule 1 capsule Orally Once a day , Taking Losartan Potassium 50 MG Tablet 1 tablet Orally Once a day , Taking Erythromycin 5 MG/GM Ointment 1 application into the lower eyelid of affected eye Ophthalmic Four times a day , Taking Baclofen 5 MG Tablet 1 tablet Orally twice a day , Taking Aspirin 81 MG Tablet Delayed Release 1 tablet Orally Once a day , Taking amLODIPine Besylate 5 mg Tablet one tab orally daily , Taking Atorvastatin Calcium 40 MG Tablet 1 tablet Orally Once a day , Taking Mirtazapine 15 MG Tablet 1 tablet at bedtime Orally Once a day , Taking Clopidogrel Bisulfate 75 MG Tablet 1 tablet Orally Once a day , Taking oxyBUTYnin Chloride ER 5 MG Tablet Extended Release 24 Hour 1 tablet Orally Once a day , Taking QUEtiapine Fumarate 150 MG Tablet 1 tablet at bedtime Orally Once a day , Taking Levothyroxine Sodium 75 MCG Tablet 1 tablet in the morning on an empty stomach Orally Once a day , Taking FLUoxetine HCl 20 mg Capsule TAKE 1 CAPSULE BY MOUTH ONCE A DAY , Discontinued Symbicort 160-4.5 MCG/ACT Aerosol two puffs Inhalation twice a day , Discontinued Pramipexole Dihydrochloride 1 MG Tablet 1 tablet Orally three times a day prn , Discontinued Pantoprazole Sodium 20 MG Tablet Delayed Release 1 tablet 1/2 to 1 hour before morning meal Orally Once a day , Discontinued Folic Acid 800 MCG Tablet 1 tablet Orally Once a day , Discontinued Lisinopril 20 MG Tablet 1 tablet Orally Once a day , Medication List reviewed and reconciled with the patient * Allergies: P enicillin. Objective: * Vitals: P ain: 0, Temp: 97.3, RR: 20, HR: 70, BP: 129/59, Ht: 63.5, Wt: 121, BMI:21.1. * Examination: G eneral Examination: General P leasant and Cooperative, NAD on RA, frail appearing. Oral cavity: M oist membranes. Heart: R egular Rate and Rhythm,. HEENT: s welling around the right eye, resolving ecchymosis. Lungs: c lear to auscultation,. Abdomen: s oft, NT/ND, BS present. Neurologic Exam: A lert and oriented x 2, poor recall. Skin: w ithout acute rashes. Peripheral pulses: d iminished. Extremities: t race edema, arthritic changes multiple joints. neck s upple,. Psych N ormal Mood/Affect. Assessment: * Assessment: 1. M ultiple closed fractures of facial bone, sequela - S02.92XS (Primary) 2 .?Other specified postprocedural states - Z98.890 3 . P ersonal history of (healed) traumatic fracture - Z87.81 4 . P hysical debility - R53.81 5. H istory of CVA with residual deficit - I69.30 6 . M ood disorder - F39 7 . F requent falls - R29.6 8 . A cquired hypothyroidism - E03.9 9 . C hronic insomnia - F51.04 1 0. R LS (restless legs syndrome) - G25.81 1 1. P VD (peripheral vascular disease) - I73.9 ? 1 2. O ther chronic pain - G89.29 1 3. H ospital discharge follow-up - Z09 Plan: * Treatment: 2. P hysical debility Clinical Notes: PT, OT, ST to eval and treat as indicated. Was quite debilitated prior to this fall with fracture, rehab potential is guarded 3. H istory of CVA with residual deficit Clinical Notes: continue statin, DAPT 4. M ood disorder Clinical Notes: continue seroquel, mirtazepine 5. F requent falls Clinical Notes: PT/OT following 6. A cquired hypothyroidism Clinical Notes: continue daily replacement 7. C hronic insomnia Clinical Notes: seroquel, mirtazepine as noted 8. R LS (restless legs syndrome) Clinical Notes: has PRN order for mirapex 9. P VD (peripheral vascular disease) Clinical Notes: continue statin, aspirin and refrain from smoking 10. O ther chronic pain Clinical Notes: no pain complaints today, monitor 11. H ospital discharge follow-up Clinical Notes: FU labs ordered to monitor hepatorenal function and blood counts * Procedure Codes: 9 9496 TRANS CARE MGMT 7 DAY DISCH, 1111F DSCHRG MED/CURRENT MED MERGE * Follow Up: 4 Weeks * * Sign off status: Completed true * Provider: MADELIN Reid Date: 0 11/15/2024 Generated for Mik olmos/Karen/Gina on: 1 01:05 AM EDT History and Physical Notes * HPI (History of Present Illness) Category Sub-Category Detail Notes Category Not es [place] History Transition of care visit from hospital Date of admission to hospital:: 10/30/2024 Seen today at [facility] [place] for transition from [facility]. Admitted there after sufferring a fall, at her sister's home, and striking her face. Required ORIF right zygomatic arch and right orbital wall. Sinus precautions complete and AC has been resumed. Sister is at bedside today at time of visit. She was able to walk today with therapies but with max assist. Denies pain at time of exam. Is to have outpatient FU with ENT. She does report good appetite and is on both mirtazepine and megace Date of receipt of hospital admission re port:: 11/12/2024 Date of discharge from hospital:: 2024 Date of receipt of hospital discharge guidry mmary:: 11/12/2024 Discharge medications review ed and reconciled from hospital:: Medications changed (e.g. discontinued, changed or added) Examination Category Sub-Category Detail Notes Category Not es General Examination HEENT: swelling [place] und the right eye, resolving ecchymosis Heart: Regular Rate and Rhy thm, Lungs: clear to auscultatio n, Abdomen: soft, NT/ND, BS pres ent Extremities: trace edema, arthrit ic changes multiple joints Skin: without acute rashes Neurologic Exam: Alert and oriented x 2, poor recall Oral cavity: Moist membranes Peripheral pulses: diminished neck supple, General Pleasant and Coopera tive, NAD on RA, frail appearing Psych Normal Mood/Affect
--- OUTSIDE RECORDS SUMMARY | 2024-11-16 05:30 | XMS_ITS ---
Author Organization [facility] Address [address] [facility] [address] [facility] [address] [place] [address] Care Team Providers Care Technical Administrator Name Role Phone Yonny Scott Primary Care Provider [phone] Reanna Perdomo [phone] REASON FOR VISIT 6 wk FU Encounters Encounter Location Date Provider Diagnosis [facility] [address] [facility] [address] [facility] [address] [place], [place] [address] 11/16/2024 Yonny Scott Plan Of Treatment No Information Progress Notes * [place] JORDAN RaeDOB:[birth year] (64 yo F)Acc No.[id number]:11/16/2024 Progress Notes Patient: [place] CHISHOLM Provider: Day Scott MD :1960 A ge:64 Y S ex:Female Date:11/16/2024 [address]1944 [address] [id number] Subjective: * Chief Complaints: * 1 . 6 wk FU. * Medical History: Objective: * Vitals: Assessment: Plan: * Treatment: * * Electronic signature of William Scott MD FAAP on 12/14/2024 at 01:06 AM EDT Sign off status: Pending * Provider: Day Scott MD Date: 0 11/16/2024 Generated for Printi ng/Faxing/eTransmitting on: 1 01:06 AM EDT
--- OUTSIDE RECORDS SUMMARY | 2024-11-25 13:15 | XMS_ITS | Encounter Summary ---
Author Organization Healthcare Address [address] [place] [address] Care Team Providers Care Yield Clerk Name Role Phone Aman Hernandez MD Primary Care Provider Reason for Referral * Consultation (Urgent) - Closed Specialty Diagnoses / Procedures Referred By Zoe guevara Referred To Contact Ophthalmology Diagnoses Injury of globe of eye, right, initial encounter Yobani Benoit MD [address] [facility] [address] [place] [address] Phone: tel: fax: [facility] [address] [place] [address] Phone: tel: fax: Referral ID Status Reason Start Date Expiration Date V isits Requested Visits Authorized [id number] Closed Specialty Services Required 11/25/2024 05/27/2026 1 [...] arch, unspecified laterality, initial encounter Charles Velasco, HAND ROUTER OPERATOR [address] [facility] [address] [place] [address] Phone: tel: fax: [facility] [address] [place] [address] Phone: tel: fax: Referral ID Status Reason Start Date Expiration Date V isits Requested Visits Authorized [id number] Closed Specialty Services Required 11/12/2024 05/14/2026 1 1 Encounter Details Date Type Department Care Team (Late st Contact Info) Description 11/25/2024 1:15 PM EDT Office Visit [facility] [address] [place] [address] Yobani Benoit MD [address] [facility] [address] [place] [address] Injury of globe of eye, [...] any time in the past 12 m [facility], were you homeless or living in a half-way (including now)? Patient unable to answer 10/31/2024 [facility] Utilities Answer Date Recorded In the past 12 months has e [employer], gas, oil, or water [employer] threatened to shut off services in your [...] unable to make an appointment with a neuro-boring machine operator horizontal which was scheduled a few days ago [...] Appointment [facility] [id number] [place] [address] 12/15/2024 1:30 PM EDT Office Visit [place] [facility] [address] [place] [address] Raymond Nuñez MD [address] [place] [address] 12/30/2024 1:00 PM EST Office Visit [facility] [address] [place] [address] Yobani Benoit MD [address] [place] [address] 05/24/2025 2:30 PM EDT Office Visit [facility] [address] [place] [address] Navya Woody MD [address] [place] [address] 06/07/2025 2:00 PM EDT Consult [facility] [address], [address] [place] [address] Haseeb Dias MD [address] [place] [address] Scheduled Referrals Name Type Priority [...] documented as of this encounter Care Teams Yield Clerk Relationship Specialty Start Date End Date Aman Hernandez MD [address] [place] [address] PCP - General Family Medicine 06/18/21 documented as of this encounter
--- OUTSIDE RECORDS SUMMARY | 2024-11-29 08:00 | XMS_ITS ---
Author Organization [facility] Address [address] [facility] [address] [place] [address] Care Team Providers Care Correctional Substance Abuse Counselor Name Role Phone Yonny Scott Primary Care Provider Reanna Perdomo [phone] Allergies Allergen (clinical drug ingredient) Drug/Non Drug Allergy documented on EMR Reaction Allergy Type Onset Date Status Penicillin Unknown Drug Allergy Active REASON FOR VISIT [facility] Medications Medication SIG (Take, Route, Frequency, [...] Signs Temperature 98.3 degrees Fahrenheit 11/30/19 25 Heart Rate 91 /min 11/29/2024 Blood pressure systolic 113 mm Hg 11/30/19 25 Blood pressure diastolic 72 mm Hg 025 Height 63.5 in 11/29/2024 Weight 128.8 lbs 11/29/2024 BMI 22.46 kg/m2 11/29/2024 Encounters Encounter Location Date Provider Diagnosis [address] [address] 11/29/2024 Reanna Perdomo Multiple closed frac tures [...] Notes * [place] JORDANOB:[birth year] (64 yo F)Acc No.[id number]:11/29/2024 Patient: Antonina [place] MAC Provider: MADELIN Reid :1960 A ge:64 Y S ex:Female Date:11/29/2024 Address:[address] [facility] [address] [address] [address], [place], [place] Pcp:Yonny Scott Subjective: * Chief Complaints: * 1 . [place] FU. * HPI: g en: Seen today at [place] in anticipation of DC from facility. Recall she was admitted from [facility]. Admitted there after sufferring a fall, [...] Reid Date: Generated for Mik olmos/Karen/Gina on: 01:05 AM EDT History and Physical Notes * HPI (History of Present Illness) Category Sub-Category Detail Notes Category Not es gen Seen today at [place] in anticipation of DC from facility. Recall she was admitted from [facility]. Admitted there after sufferring a fall, [...]
--- OUTSIDE RECORDS SUMMARY | 2024-12-01 07:40 | XMS_ITS | Encounter Summary ---
Author Organization [facility] Address [address] [place] [address] Care Team Providers Care Supervisor Fine Grading Name Role Phone Aman Hernandez MD Primary Care Provider Encounter Details Date Type Department Care Team (Late st Contact Info) Description 12/01/2024 7:40 AM EDT Ancillary Procedure [facility] Care [address] [place] [address] Social History Tobacco Use Types [...] any time in the past 12 m [facility], were you homeless or living in a group home (including now)? Patient unable to answer 10/31/2024 [facility] Utilities Answer Date Recorded In the [...] Appointment [facility] Vascular Lab [address] [place] [address] 12/15/2024 1:30 PM EDT Office [facility] [address] [place] [address] Raymond Nuñez MD [address] [place] [address] 12/30/2024 1:00 PM EST Office Visit [facility] Otolaryngology [address], [address]rd [place] [address] Yobani Benoit MD [address] [place] [address] 05/24/2025 2:30 PM EDT Office Visit [facility] Care [address] [place] [phone] Navya Woody MD [address] [place] [address] 06/07/2025 2:00 PM EDT Consult [facility] [address], [address] [place] [address] Haseeb Dias MD [address] [place] [address] documented as of this encounter Procedures Procedure Name Priority Date/Time Associated Diagnosis Comments AUTOMATED VISUAL FIELD, EXTENDED - OU - BOTH EYES Routine 12/01/2024 11:17 AM EDT Vision loss documented in this encounter Results * Automated Visual Field, Extended - OU - Both Eyes (12/01/2024 11:17 AM EDT) Anatomical Region Laterality Modality Head Visual Field Narrative 12/01/2024 11:17 AM EDT OU unable to do us Navya Woody MD OPHTH VISUAL FIELD Final Res ult documented in this encounter Visit Diagnoses Not [...] documented as of this encounter Care Teams Supervisor Fine Grading Relationship Specialty Start Date End Date Aman Hernandez MD [address] [facility] [address] [place] [address] PCP - General Family Medicine 06/18/21 documented as of this encounter
--- OUTSIDE RECORDS SUMMARY | 2024-12-01 07:40 | XMS_ITS | Encounter Summary ---
Author Organization [facility] Address [address] [place] [address] Care Team Providers Care Eye Specialist Name Role Phone mAan Hernandez MD Primary Care Provider Encounter Details Date Type Department Care Team (Late st Contact Info) Description 12/01/2024 7:40 AM EDT Ancillary Procedure [facility] Care [address] [place] [address] Social History Tobacco Use Types [...] any time in the past 12 m [facility], were you homeless or living in a half-way (including now)? Patient unable to answer 10/31/2024 [facility] Utilities Answer Date Recorded In the [...] Vascular Lab [address] [place] [address] 12/15/2024 1:30 PM EDT Office Visit [facility] [address] 1[address] [place] [address] Raymond Nuñez MD [address] [facility] [address] [place] [address] 12/30/2024 1:00 PM EST Office Visit [facility] Otolaryngology [address], [address] [place] [address] Yobani Benoit MD [address] [place] [address] 05/24/2025 2:30 PM EDT Office Visit [facility] Eye Care [address] [place] [phone] Navya Woody MD [address] [facility] [address] [place] [address] 06/07/2025 2:00 PM EDT Consult [facility] [address], [address] [place] [address] Haseeb Dias MD [address] [place] [address] documented as of this encounter [...] documented as of this encounter Care Teams Eye Specialist Relationship Specialty Start Date End Date Aman Hernandez MD [address] [address] PCP - General Family Medicine 06/18/21 documented as of this encounter
--- OUTSIDE RECORDS SUMMARY | 2024-12-01 07:45 | XMS_ITS | Encounter Summary ---
Author Organization [facility] Address [address] [place] [address] Care Team Providers Care Anodic Operator Name Role Phone Aman Hernandez MD Primary Care Provider Encounter Details Date Type Department Care Team (Late st Contact Info) Description 12/01/2024 7:45 AM EDT Ancillary Procedure [facility] Advanced Eye Care [address] [place] [address] Social History Tobacco Use Types [...] any time in the past 12 m [facility], were you homeless or living in a m[facility] (including now)? Patient unable to answer 10/31/2024 [facility] Utilities Answer Date Recorded In the [...] Vascular Lab [address] [place] [address] 12/15/2024 1:30 PM EDT Office Visit [facility] [address], 1st [place] [address] Raymond Nuñez MD [address] [place] [address] 12/30/2024 1:00 PM EST Office Visit [facility] Otolaryngology [address], 3[address] [place] [address] Yobani Benoit MD [address] [place] [address] 05/24/2025 2:30 PM EDT Office Visit [facility] Advanced Eye Care [address] [place] [phone] Navya Woody MD [address] [facility] [address] [place] [address] 06/07/2025 2:00 PM EDT Consult [facility] [address], [address] [place] [address] Haseeb Dias MD [address] [place] [address] documented as of this encounter [...] documented as of this encounter Care Teams Anodic Operator Relationship Specialty Start Date End Date Aman Hernandez MD [address] [address] PCP - General Family Medicine 06/18/21 documented as of this encounter
--- OUTSIDE RECORDS SUMMARY | 2024-12-01 09:00 | XMS_ITS | Encounter Summary ---
Author Organization Healthcare Address [address] [place] [address] Care Team Providers Care Track Rider Name Role Phone Aman Hernandez MD Primary Care Provider Reason for Referral * Consultation (Routine) - Authorized Specialty Diagnoses / Procedures Referred By Zoe guevara Referred To Contact Oculoplastics Ophthalmology / Ophthalmology Diagnoses Ectropion of left lower eyelid, unspecified ectropion type Navya Woody MD [address] [address] Phone: tel: fax: [facility] [address] [place] [address] Phone: tel: fax: Referral ID Status Reason Start Date Expiration Date V isits Requested Visits Authorized [id number] Authorized 12/01/2024 06/02/2026 1 1 * Consultation (Routine) - Authorized Specialty Diagnoses / Procedures Referred By Zoe t Referred To Contact Neurology Diagnoses Ectropion of left lower eyelid, unspecified ectropion type Navya Woody MD [address] [address] Phone: tel: fax: Referral ID Status Reason Start Date Expiration Date Visits Requested Visits Authorized [id number] Authorized Specialty Services Required 12/01/2024 06/02/2026 1 1 Scheduling Instructions Stroke please * Imaging (Routine) - Pending Review Specialty Diagnoses / Procedures Referred By Zoe guevara Referred To Contact Radiology Diagnoses Homonymous hemianopia, right Procedures MR Head w and wo IV Contrast Navya Woody MD [address] [address] Phone: tel: fax: Referral ID Status Reason Start Date Expiration Date V isits Requested Visits Authorized [id number] Pending Review 12/01/2024 06/02/2026 1 1 Reason for Visit * Consultation (Routine) - Closed Specialty Diagnoses / Procedures Referred By Zoe guevara Referred To Contact Ophthalmology Diagnoses Personal history of transient cerebral ischemia Unspecified visual loss Yonny Scott MD [address] [facility] [address] [place] [address] Phone: tel: fax: [facility] [address] [place] [address] Phone: tel: fax: Referral ID Status Reason Start Date Expiration Date V isits Requested Visits Authorized [id number] Closed Specialty Services Required 07/11/2024 01/10/2026 1 1 Encounter Details Date Type Department Care Team (Latest Contact Info) Description 12/01/2024 9:00 AM EDT Office Visit [facility] [address] [place] [phone] Navya Woody MD [address] [phone] Vision loss (Primary Dx); Homonymous hemianopia, right; [...] time in the past [address] [facility], were you homeless or living in a correction (including now)? Patient unable to answer 10/31/2024 [facility] Utilities Answer Date Recorded In the [...] stent in December/2022 and smoking, presented to [facility] in June/2024 with 2 weeks of right-sided weakness. MRI brain revealed subacute lacunar infarct in left thalamic/posterior left basal ganglia area. Patient was recommended dual antiplatelets with aspirin and Plavix and Lipitor was increased to 80 mg. Was advised to control blood pressure and sent to [facility] for rehab. There was significant right ICA [...] canthotomy (IOP ? to 35). Treated at [facility]. Initially GCS 14-15, intubated for airway [...] evolving postsurgical changes and/or hematoma. Discharged to [facility] Since discharge she has been back on [...] needing minimal assistance after PT- went to [facility] They report it was due to BP [...] illicit substance use. Currently lives in a prison Review of systems Review of systems: 14 [...] choroidal lesions Refraction Wearing Rx Sphere Cylinder [place] Add Right +0.50 +0.75 175 +3.00 Left +0.50 +1.00 145 +3.00 Wearing Rx #2 Sphere Cylinder [place] Add Right +0.75 +0.50 005 +2.75 Left +0.25 +1.00 164 +2.75 Manifest Refraction (Auto) Sphere Cylinder [place] Right +1.00 +1.25 162 Left +1.00 +0.50 [...] Otitis media A couple months ago. Stroke (CMS/HCC) documented in this encounter Plan of Treatment Upcoming Encounters Date Type Department Care Team (Late st Contact Info) Description 12/15/2024 12:00 PM EDT Appointment [facility] [address] [place] [address] 12/15/2024 1:30 PM EDT Office Visit [facility] [address] [place] [address] Raymond Nuñez MD [address] [place] [address] 12/30/2024 1:00 PM EST Office Visit [facility] [address], [address] [place] [address] Yobani Benoit MD [address] [place] [address] 05/24/2025 2:30 PM EDT Office Visit [facility] [address] [place] [address] Navya Woody MD [address] [place] [address] 06/07/2025 2:00 PM EDT Consult [place] [facility] [address], [address] [place] [address] Haseeb Dias MD [address] [facility] [address] [place] [address] Scheduled Orders Name Type Priority [...] unable to do us Navya Woody MD OPH VISUAL FIELD Final Res ult documented in [...] documented as of this encounter Care Teams Track Rider Relationship Specialty Start Date End Date Aman Hernandez MD [address] [place] [address] PCP - General Family Medicine 06/18/21 documented as of this encounter
--- OUTSIDE RECORDS SUMMARY | 2024-12-13 10:37 | XMS_ITS | Encounter Summary ---
Author Organization Healthcare Address [address] [place] [address] Care Team Providers Care Dairy Specialist Name Role Phone Aman Hernandez MD Primary Care Provider Reason for Referral * Imaging (Routine) - Closed Specialty Diagnoses / Procedures Referred By Contac t Referred To Contact Radiology Diagnoses SDH (subdural hematoma) (CMS/HCC) Procedures CT Head wo IV Contrast Miranda Garcias PA [address] [address] Phone: tel: fax: Referral ID Status Reason Start Date Expiration Date Visits Re quested Visits Authorized [id number] Closed 11/17/2024 05/19/2026 1 1 Reason for Visit * Imaging (Routine) - Closed Specialty Diagnoses / Procedures Referred By Contac t Referred To Contact Radiology Diagnoses SDH (subdural hematoma) (CMS/HCC) Procedures CT Head wo IV Contrast Miranda Garcias PA [address] [address] Phone: tel: fax: Referral ID Status Reason Start Date Expiration Date Visits Re quested Visits Authorized [id number] Closed 11/17/2024 05/19/2026 1 1 Encounter Details Date Type Department Care Team (Latest Contact Info) Description 12/13/2024 10:37 AM EDT - 12/13/2024 11:59 PM EDT Hospital Encounter [facility] [address] [place] [address] SDH (subdural hematoma) (CMS/HCC) Discharge Disposition: Home or Self Care Social History Tobacco Use Types Packs/Day Years Used Date Smoking Tobacco: Former Cigarettes 1 40 Passive Smoke Exposure: Never Smokeless Tobacco: Never Alcohol Use Standard Drinks/Week Comments Not Currently 0 (1 standard drink = 0.6 oz pur e alcohol) PHQ-2 Answer Date Recorded Patient Health Questionnaire-2 [...] time in the past 12 m [facility], were you homeless or living in a fpc (including now)? Patient unable to answer 10/31/2024 [facility] [...] on file documented as of this encounter Medications at Time of Discharge Aspirin Low Dose 81 MG EC tablet Take 1 tablet by mouth daily. 12/01/2022 atorvastatin (Lipitor) 40 MG tablet Take 1 tablet by mouth daily. 03/02/2023 bacitracin, 425g jar, 500 UNIT/GM ointment Apply to face BID 14 g 11/12/2024 clopidogrel (Plavix) 75 MG tablet 1 tablet. 11/26/2022 erythromycin (Romycin) 5 MG/GM ophthalmic ointment Apply 1 Application to both eyes every 8 hours. 3.5 g 11/12/2024 Fe Asp Nxn-Vkrl-I-Thre-B12 -FA (Multigen Folic) 70-150-2-1 MG tablet Take 1 tablet by mouth. FLUoxetine (PROzac) 20 MG capsule Take 1 capsule by mouth every morning. 09/21/2024 folic acid (Folvite) 800 MCG tablet Take 1 tablet by mouth daily. 09/26/2024 furosemide (Lasix) 20 MG tablet 1 tablet. 12/02/2024 HYDROcodone-acetami nophen ([place]) 5-325 MG tablet Take 1 tablet by mouth every 6 hours as needed. 05/24/2024 levothyroxine (Synthroid, Levoxyl) 75 MCG tablet Take 1 tablet by mouth daily. 04/14/2023 lisinopril 20 MG tablet Take 1 tablet by mouth daily. 10/18/2024 losartan (Cozaar) 50 MG tablet Take 1 tablet by mouth. mirtazapine (Remeron) 15 MG tablet Take 1 tablet by mouth nightly. naloxone (Narcan) 4 mg/0.1 mL nasal spray 1. Give 1 spray in nostril for no/slow breathing or cannot wake after opioid use 2. Call 911 3. Repeat in other nostril if symptoms continue 1 each 11/12/2024 ondansetron ODT (Zofran-ODT) 4 MG disintegrating tablet 1 tablet. 12/02/2024 oxybutynin XL (Ditropan-XL) 5 MG 24 hr tablet Take 1 tablet by mouth daily. 12/03/2022 pramipexole (Mirapex) 1 MG tablet Take 1 tablet by mouth 3 times a day as needed. QUEtiapine (SEROquel) 100 MG tablet Take 1.5 tablets by mouth nightly. documented as of this encounter Plan of Treatment Upcoming Encounters Date Type Department Care Team (Late st Contact Info) Description 12/15/2024 12:00 PM EDT Appointment [facility] [address] [place] [address] 12/15/2024 1:30 PM EDT Office Visit [place] [facility] [address] [place] [address] Raymond Nuñez MD [address] [place] [address] 12/30/2024 1:00 PM EST Office Visit [facility] [address] [place] [address] Yobani Benoit MD [address] [place] [address] 05/24/2025 2:30 PM EDT Office Visit [facility] [address] [place] [address] Navya Woody MD [address] [facility] [address] [place] [address] 06/07/2025 2:00 PM EDT Consult [facility] [address] [place] [address] Haseeb Dias MD [address] [facility] [address] [place] [address] Pending Results Name Type Priority Associated Diagnoses Date /Time CT Head wo IV Contrast Imaging Routine SDH (subdural hematoma) (CMS/HCC) 12/13/2024 10:45 AM EDT Scheduled Orders Name Type Priority Associated Diagnoses Orde r Schedule CT Head wo IV Contrast Imaging Routine SDH (subdural hematoma) (CMS/HCC) Once for 1 Occurrences starting 12/13/2024 until 12/13/2024 documented as of this encounter Visit Diagnoses Diagnosis SDH (subdural hematoma) (CMS/HCC) Subdural hemorrhage documented in this encounter Additional Health Concerns Infection Onset Date Last 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
--- OUTSIDE RECORDS SUMMARY | 2024-12-13 13:00 | XMS_ITS | Encounter Summary ---
Author Organization Healthcare Address [address] [place] [address] Care Team Providers Care Can Machine Operator Name Role Phone Aman Hernandez MD Primary Care Provider Reason for Referral * Imaging (Routine) - Authorized Specialty Diagnoses / Procedures Referred By Zoe guevara Referred To Contact Cardiology Diagnoses Occlusion and stenosis of bilateral carotid arteries Procedures VAS US Carotid Duplex Bilateral Ezio Estrada PA [address] [facility] [address] [place] [address] Phone: tel: fax: Referral ID Status Reason Start Date Expiration Date Visits Requested Visits Authorized [id number] Authorized Perform Procedure 5 06/14/2026 1 1 Reason for Visit * Consultation (Routine) - Closed Specialty Diagnoses / Procedures Referred By Conterinn t Referred To Contact Neurosurgery Diagnoses Fall, initial encounter Traumatic brain injury, with unknown loss of consciousness status, initial encounter Charles Velasco, COMMERCIAL RELIEF DRIVER [address] [facility] [address] [place] [address] Phone: tel: fax: [place] [facility] [address] [place] [address] Phone: tel: fax: Referral ID Status Reason Start Date Expiration Date V isits Requested Visits Authorized [id number] Closed Specialty Services Required 11/12/2024 05/14/2026 1 1 Encounter Details Date Type Department Care Team (Late st Contact Info) Description 12/13/2024 1:00 PM EDT Consult [place] [facility] [address] [place] [address] Ezio Estrada PA [address] [place] [address] Occlusion and stenosis of bilateral carotid arteries (Primary Dx) Social History Tobacco Use Types Packs/Day Years [...] any time in the past 12 m [facility], were you homeless or living in a senior living (including now)? Patient unable to answer 10/31/2024 [facility] Utilities Answer Date Recorded In the [...] Sign Reading Time Taken Comments Blood Pressure 143/80 12/13/2024 12:41 PM EDT Pulse 84 12/13/2024 12:41 PM EDT Temperature - - Respiratory Rate - - Oxygen Saturation 97% 12/13/2024 12:41 PM EDT Inhaled Oxygen Concentration - - Weight 57.2 kg (126 lb) 12/13/2024 12:41 PM EDT Height 157.5 cm (5' 2 ) 12/13/2024 12:41 PM EDT Body Mass Index 23.05 12/13/2024 12:41 PM EDT documented in this encounter Miscellaneous Notes * Progress Notes - Ezio Estrada PA - 12/13/2024 1:00 PM EDT Images from the original note were not included. Patient I.DAna Maria Mata Date of 1960 Encounter Date 12/13/2024 Chief Complaint SAH, IVH History Of Present Illness [place] Mata is a 64 y.o. female with history of CVA w/ R sided defecits on ASA/Plavix, HTN, HLP,CAD, and Hypothyroidism who presents for hospital follow-up of fall with left IVH and SAH on 10/29/24. Also notable zygomatic fracture with surgical intervention and right globe hematoma s/p lateral canthotomy at OSH. Still at rehab, doing well, but still getting confused and having balance issues. Held ASA/plavix 2 weeks and has resumed. No new stroke symptoms. Accompanied by family. Past Medical History She has a past medical history of Anxiety, Arthritis, Depression, Fibromyalgia, Headache, degenerative disc disease, Hyperlipidemia, Hypertension, Neuropathy, Otitis media (A couple months ago.), andStroke ([facility] Surgical History She has a past surgical history that includes Replacement total hip lateral position; Lung surgery;Tonsillectomy; oral surgery; Carotid stent; Renal artery stent; Cholecystectomy (25years ago); and Joint replacement (06/2018). Family History Family History[1] Social History She reports that she has quit smoking. Her smoking use included cigarettes. She has a 40 pack-year smoking history. She has never been exposed to tobacco smoke. She has never used smokeless tobacco. No history on file for alcohol use and drug use. Medications Current Medications[2] Allergies Cephalosporins, Other, Penicillin g, and Penicillins Review of Systems Reviewed. Pertinent positives and negatives listed in HPI above. Vitals Visit Vitals Smoking Status Former Physical Exam CONSTITUTIONAL: Well developed, well nourished, in no acute distress HEAD: Normocephalic, atraumatic SKIN: Warm, non-diaphoretic, appropriate color EYES: Pupils equal, round, reactive to light, and accommodate appropriately RESPIRATORY: Breathing comfortably on room air without accessory muscle use NEUROLOGICAL: Alert and oriented without dystrophy. Speech fluent and intelligible. No cranial nerve deficits noted. Face Symmetric. RUE 4/5 RLE 4/5 LUE 5/5 LLE 5/5 MUSCULOSKELETAL: Appropriate station and sitting in wheelchair PSYCHIATRIC: Pleasant mood and appropriate affect Imaging The following was personally independently reviewed: CT head: interval resolution of left IVH and SAH. Stable encephalomalacia left occipital Assessment and Plan SAH, IVH Noted after fall in which she fractured her zygoma Resolved Is back on DAPT, no new stroke symptoms Follow-up PRN for this issue Carotid stenosis S/p left carotid stent 2022 at [facility] Left carotid stent patent, right carotid 70% stenosis on US, 80% on CTA Asymptomatic as far as right carotid stenosis goes (no left sided symptoms) Wants to move all her care to to keep things consistent Will have her follow-up with Dr. Nuñez with carotid US same day. 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 Education provided was verbal counseling. Additional time was spent in care coordination including viewing prior records, reviewing prior labs/studies, obtaining history from the patient/family, discussing the management plan with the patient/family, counseling the patient/family, and documentation of the encounter. LEVEL OF SERVICE: Patient was seen by myself today, under supervision Total time in minutes spent on face to face and qualifying non-face to face patient care related activities as outlined above on the date of service = 45 MADDISON ATTESTATION by: Ezio Estrada PA-C I saw the patient [id number], obtained and documented the medical history, performed and documented the physical exam, and reviewed imaging. I documented the plan of care in the EMR prior to any revisions made by the attending physician. Thank you. If there are any questions or concerns please feel free to contact us: [facility] Department of Neurosurgery [address] [place] [address] [place] [address] ; [1] Family History Problem Relation Name Age of Onset Diabetes Mother Diabetes Sister None Diabetes Brother Arthritis Mother's Brother GB Lucia Diabetes Brother None [2] Current Outpatient Medications Medication Sig Dispense Refill amLODIPine (Norvasc) 5 MG tablet Take 1 tablet (5 mg total) by mouth 1 (one) time each day. 30 tablet 5 Aspirin Low Dose 81 MG EC tablet Take 1 tablet by mouth daily. atorvastatin (Lipitor) 40 MG tablet Take 1 tablet by mouth daily. bacitracin, 425g jar, 500 UNIT/GM ointment Apply to face BID 14 g 0 baclofen 5 MG tablet Take 1 tablet by mouth 2 times a day. 14 tablet 0 clopidogrel (Plavix) 75 MG tablet 1 tablet. erythromycin (Romycin) 5 MG/GM ophthalmic ointment Apply 1 Application to both eyes every 8 hours. 3.5 g 0 FLUoxetine (PROzac) 20 MG capsule Take 1 capsule by mouth every morning. folic acid (Folvite) 800 MCG tablet Take 1 tablet by mouth daily. hydrOXYzine pamoate (Vistaril) 25 MG capsule Take 1 capsule by mouth every 8 hours as needed for itching. 15 capsule 0 levothyroxine (Synthroid, Levoxyl) 75 MCG tablet Take 1 tablet by mouth daily. mirtazapine (Remeron) 15 MG tablet Take 1 tablet by mouth nightly. naloxone (Narcan) 4 mg/0.1 mL nasal spray 1. Give 1 spray in nostril for no/slow breathing or cannot wake after opioid use 2. Call 911 3. Repeat in other nostril if symptoms continue 1 each 0 oxybutynin XL (Ditropan-XL) 5 MG 24 hr tablet Take 1 tablet by mouth daily. pramipexole (Mirapex) 1 MG tablet Take 1 tablet by mouth 3 times a day as needed. QUEtiapine (SEROquel) 100 MG tablet Take 1.5 tablets by mouth nightly. No current facility-administered medications for this visit. documented in this encounter Plan of Treatment Upcoming Encounters Date Type Department Care Team (Late st Contact Info) Description 12/15/2024 12:00 PM EDT Appointment [facility] [address] [place] [address] 12/15/2024 1:30 PM EDT Office Visit [facility] [address] [place] [address] Raymond Nuñez MD [address] [facility] [address] [place] [phone] 12/30/2024 1:00 PM EST Office Visit [facility] Otolaryngology [address] [place] [phone] Yobani Benoit MD [address] [place] [address] 05/24/2025 2:30 PM EDT Office Visit [facility] [address] [place] [phone] Navya Woody MD [address] [facility] [address] [place] [address] 06/07/2025 2:00 PM EDT Consult [facility] [address] [place] [phone] Haseeb Dias MD [address] [place] [phone] Scheduled Orders Name Type Priority Associated Diagnoses Orde r Schedule VAS US Carotid Duplex Bilateral Vascular Ultrasound Routine Occlusion and stenosis of bilateral carotid arteries Expected: 12/29/2024 (Approximate), Expires: 06/16/2026 documented as of this encounter Visit Diagnoses Diagnosis Occlusion and stenosis of bilateral carotid arteries- Primary documented in this encounter Additional Health Concerns [...] documented as of this encounter Care Teams Can Machine Operator Relationship Specialty Start Date End Date Aman Hernandez MD [address] [phone] PCP - General Family Medicine 06/18/21 documented as of this encounter
--- NOTE | 2024-12-14 00:22 | ED_ITS ---
Discharge Plan Disposition Patient Disposition: Xfer [facility] Prescriptions Prescriptions: No Action pramipexole 1 mg tablet 1 mg PO TIDP PRN (Reason: Restless Leg(S)) Qty: 90 1RF atorvastatin 40 mg Tablet 40 mg PO HS 30 Days Qty: 30 0RF clopidogrel 75 mg Tablet 75 mg PO DAILY 20 Days Qty: 20 0RF levothyroxine [Synthroid] 50 mcg Tablet 50 mcg PO DAILYDM 30 Days Qty: 30 0RF lisinopril 10 mg Tablet 10 mg PO DAILY 30 Days Qty: 30 0RF aspirin 81 mg Tablet,Delayed Release (Dr/Ec) 81 mg PO DAILY 30 Days Qty: 30 0RF Referrals Follow up/Referrals: Provider,Referral, MD [Primary Care Provider, Medical] - See instructions Activity Restrictions/Add. Instructions Additional Instructions/Restrictions: No obvious source for patient's left-sided abdominal pain. Labs are unremarkable. Urine is clean. No stone, obstruction, diverticulitis etc. noted on CT scan. Patient feeling better upon discharge. Clinical Impressions Clinical Impression: Abdominal pain Instructions Patient Instructions: DI for Acute Abdominal Pain Print Language Print Language: Czech Discharge ED Provider: Rachid Avendaño General Adult HPI General Chief complaint: Abdominal Pain Stated complaint: abdominal pain Time Seen by Provider: 12/14/24 00:25 History of Present Illness HPI narrative: 64-year-old female with history of strokes and dementia presents for abdominal pain. Began complaining of abdominal pain earlier this evening. Points to her left side when asked where she is hurting. She denies any chest pain shortness of breath. Unsure when her last bowel movement was. No reported diarrhea. No vomiting. Related Data Previous Rx's ?Medication ?Instructions ?Recorded aspirin 81 mg tablet,delayed 81 mg PO DAILY 30 days #3 0 tabs 12/01/22 release pramipexole 1 mg tablet 1 mg PO TIDP PRN Restless Le g(S) 05/27/24 #90 tabs atorvastatin 40 mg tablet 40 mg PO HS 30 days #30 tabs 06/22/24 clopidogrel 75 mg tablet 75 mg PO DAILY 20 days #20 t abs 06/22/24 levothyroxine 50 mcg tablet 50 mcg PO DAILYDM 30 days #30 tabs 06/22/24 (Synthroid) lisinopril 10 mg tablet 10 mg PO DAILY 30 days #30 t abs 06/22/24 Allergies Allergy/AdvReac Type Severity Reaction Status Date / Time Cephalosporins Allergy Unknown Unknown Verified 12/28/23 11:12 allergy reaction Penicillins Allergy Unknown Unknown Verified 12/28/23 11:12 allergy reaction Sutures Allergy Unknown Verified 12/28/23 11:12 allergy reaction PFSH PFS Disclaimer: The information contained in this section may have been updated after the patient was seen, as this information can be updated by other users. Medical History Cardiomyopathy History of CVA (cerebrovascular accident) Incontinence Renal artery stenosis Smoker Insomnia Acquired hypothyroidism IFG (impaired fasting glucose) Left leg paresthesias Abnormal head CT MARTINA (obstructive sleep apnea) History of paresthesia RLS (restless legs syndrome) Essential hypertension Carotid artery stenosis Left carotid bruit Cardiac murmur Restless sleeper Family history of early CAD Claudication Dyspnea Edema Ex-smoker Abnormal EKG HLD (hyperlipidemia) HTN (hypertension) Surgical History History of carpal tunnel surgery Hx of tonsillectomy Hx of tubal ligation Hx of cholecystectomy History of thoracotomy History of right hip replacement Family History Mother Hypertension Diabetes Other Hyperlipidemia Social History Smoking Status: Never smoker years smoked: 51 quit status: not considering quitting second hand exposure: No alcohol intake: current substance use type: denies use current occupational status: disabled Travel in the last 8 weeks?: None household members: other housing: house caffeine: Yes Other Medical History Have you received the Flu Vaccine for this season: No Have you received the Pneumonia Vaccine: No ROS Obtained: Yes All systems reviewed & no additional complaints except as documented Physical Exam General General appearance: alert and in no apparent distress Head Head exam: atraumatic and normocephalic Eye Eye exam: Present normal appearance, PERRL and EOMI ENT ENT exam: Present normal oropharynx and normal external ear exam Neck Neck exam: Present normal inspection and full ROM Chest Chest inspection: Present normal inspection and symmetric chest wall rise; Absent tenderness Respiratory Respiratory exam: Present normal lung sounds bilaterally; Absent respiratory distress Cardiovascular Cardiovascular exam: Present regular rate and normal rhythm Abdominal Exam Abdominal exam: Present soft; Absent distention, tenderness or guarding Extremities Exam Extremities exam: Present normal inspection; Absent edema or joint swelling Back Exam Back exam: Present normal inspection; Absent tenderness Neurological Exam Neurological exam: Present alert and oriented X3; Absent motor sensory deficit Psychiatric Psychiatric exam: Present normal affect and normal mood Skin Skin exam: Present warm, dry and normal color Lymphatic Lymphatic Findings: no adenopathy Medical Decision Making Medical Records Medical records reviewed: Yes I reviewed the patient's medical records. Screening: Per USPSTF and CDC recommendations, given the prevalence of disease in our region, it is our hospital?s policy to screen for HIV and viral Hepatitis for all patients aged 18 and over and those with ongoing risk factors. Hardeep Inquiry Pt receiving controlled substance: No Hardeep was queried for this patient: No Vital Signs: 12/14/24 00:25 12/14/24 00:31 12/14/24 00:46 Temperature 98.6 F 98.6 F Temperature Source Tympanic Tympanic Pulse Rate 107 H 105 H Pulse Rate [Right] 107 H Respiratory Rate 16 16 16 Blood Pressure 182/107 H 123/90 Blood Pressure [Right Arm] 182/107 H Blood Pressure Mean [Right Arm] 132 02 Sat by Pulse Oximetry 97 97 97 Oxygen Delivery Method Room Air Room Air Room Air 12/14/24 01:12 12/14/24 02:43 12/14/24 02:57 Temperature 98.6 F Temperature Source Pulse Rate 89 91 H 85 Pulse Rate [Right] Respiratory Rate 16 16 16 Blood Pressure 179/99 H 135/68 135/68 Blood Pressure [Right Arm] Blood Pressure Mean [Right Arm] 02 Sat by Pulse Oximetry 95 97 Oxygen Delivery Method Room Air Room Air Room Air Lab Data Lab results reviewed: Yes I reviewed the patient's lab results. Lab Results 12/14/24 00:25: WBC 9.6, RBC 4.01 L, Hgb 11.2 L, Hct 35.3 L, MCV 88.0, MCH 27.9, MCHC 31.7 L, RDW 13.6, Plt Count 301, MPV 9.7, Neut % (Auto) 63.3, Lymph % (Auto) 26.9, [place] % (Auto) 7.7, Eos % (Auto) 1.5, Baso % (Auto) 0.4, Neut # (Auto) 6.1, Lymph # (Auto) 2.6, [place] # (Auto) 0.7, Eos # (Auto) 0.1, Baso # (Auto) 0.0, PT 11.0, INR 0.99, Sodium 141, Potassium 3.9, Chloride 105, Carbon Dioxide 26, Anion Gap 13.9, BUN 23 H, Creatinine 1.00, Estimated Creat Clear 50, Estimated GFR 55 L, Est GFR ( Amer) 67, Glucose 119 H, Calcium 9.1, Total Bilirubin 0.5, AST 28, ALT 28, Alkaline Phosphatase 168 H, Total Protein 7.0, Albumin 4.2, Globulin 2.8, Albumin/Globulin Ratio 1.5, Lipase 108 12/14/24 01:47: Urine Color Yellow, Urine Appearance Clear, Urine pH 5.5, Ur Specific [place] 1.025, Urine Protein Negative, Urine Glucose (UA) Negative, Urine Ketones Negative, Urine Blood Negative, Urine Nitrate Negative, Urine Bilirubin Negative, Urine Urobilinogen 0.2, Ur Leukocyte Esterase Negative, Urine RBC Occasional, Ur Squamous Epith Cells Occasional 12/14/24 00:25 12/14/24 00:25 Orders (Tests/Meds): ED MEDICATIONS Generic Name Dose Route Start Last Admin Trade Name Freq PRN Reason Stop Dose Admin Sodium Chloride 10 ml 12/14/24 01:41 12/14/24 01:42 Sodium Chloride 0.9% 10ml Syr (Rad Only) IV 01/13/25 01:40 10 ml NEEDED PRN Administration Maintain IV Site Discontinued Medications Generic Name Dose Route Start Last Admin Trade Name Freq PRN Reason Stop Dose Admin Acetaminophen 1,000 mg 12/14/24 00:22 12/14/24 00:43 Acetaminophen 500mg Tab PO 12/14/24 00:23 1,000 mg ONCE ONE Administration Iopamidol 75 ml 12/14/24 01:41 12/14/24 01:42 Iopamidol-370 (76%);100ml Bottle IV 12/14/24 01:42 75 ml ONCE ONE Administration Ketorolac Tromethamine 15 mg 12/14/24 00:22 12/14/24 00:43 Ketorolac 30mg/Ml Vial IV 12/14/24 00:23 15 mg ONCE ONE Administration ORDERS Category Date Time Status CT abdomen pelvis w con Stat Cat Scan 12/14/24 00:38 Completed CBC w/Auto Diff [Complete Blood Count Auto Diff] Stat Lab 12/14/24 00:25 Completed CMP [Comprehensive Metabolic Panel] Stat Lab 12/14/24 00:25 Completed INR [Prothrombin Time INR] Stat Lab 12/14/24 00:25 Completed Lipase Stat Lab 12/14/24 00:25 Completed UA [Urinalysis and Microscopic] Stat Lab 12/14/24 01:47 Completed Medical Decision Narrative: 64-year-old female with history of hypertension hyperlipidemia prior stroke, confused at baseline per nursing facility, presents for left-sided abdominal pain.. History was obtained via interactive discussion with patient, EMS, chart review. On arrival, patient is afebrile, mildly hypertensive, satting properly on room air, alert, moving all extremities spontaneously. Full physical exam performed and significant for soft nondistended abdomen without significant tenderness on exam. Differential includes but is not limited to colitis, diverticulitis, obstruction, mesenteric ischemia, kidney stone, UTI, constipation. Patient was given Tylenol and Toradol for symptomatic management and correction of underlying abnormalities. Workup initiated including CBC CMP lipase urinalysis CT abdomen pel with IV contrast. On re-evaluation, patient reports significant symptomatic improvement. Laboratory workup independently interpreted by me and significant for mild anemia, stable renal function, no electrolyte derangement. Urinalysis unremarkable. Imaging independently interpreted by me and significant for no evidence of diverticulitis, bowel obstruction, kidney stone. Patient does have some calcifications of the aorta and branch vessels but no evidence of mesenteric ischemia.. See radiology read for full review of final results. Given patient history, exam and workup, patient's presentation most likely represents mild abdominal pain now resolved. No obvious underlying etiology found, no evidence of emergent pathology on workup. Patient was discharged back to nursing facility in stable condition.. Procedures Risk/Benefits of Procedure(s) Were Explained: Yes Critical Care Critical Care Time Critical Care Time: No
[2024-12-14 00:25] VITALS: BP 182/107; PULSE 107; RESP 16; TEMP 37; O2SAT 97; BMI 20.9
[2024-12-14 00:31] VITALS: BP 182/107; PULSE 107; RESP 16; TEMP 37; O2SAT 97
[2024-12-14 00:33] LABS: Hematocrit 35.3 % (37.0-47.0); Hemoglobin 11.2 g/dL (12.2-16.2); Immature Granulocytes % 0.2 %; Mean Corpuscular HGB Conc 31.7 g/dL (31.8-35.4); Mean Corpuscular Hemoglobin 27.9 pg (27.0-31.2); Mean Corpuscular Volume 88.0 fl (81-99); Nucleated Red Blood Cells % 0 %; Platelet Count 301 K/mm3 (142-424); Red Blood Count 4.01 M/mm3 (4.20-5.40); Red Cell Distribution Width-SD 44.3 fL; White Blood Count 9.6 K/mm3 (4.8-10.8)
--- NOTE | 2024-12-14 00:38 | CT_ITS ---
PROCEDURE INFORMATION: Exam: CT Abdomen And Pelvis With Contrast Exam date and time: 12/14/2024 1:38 AM Age: 64 years old Clinical indication: Abdominal pain; Additional info: Left sided abd pain TECHNIQUE: Imaging protocol: Computed tomography of the abdomen and pelvis with contrast. Radiation optimization: All CT scans at this facility use at least one of these dose optimization techniques: automated exposure control; mA and/or kV adjustment per patient size (includes targeted exams where dose is matched to clinical indication); or iterative reconstruction. Contrast material: ISOVUE; Contrast volume: 75 ml; Contrast route: IV; COMPARISON: CT ANGIO ABD/PEL - TRAUMA 10/29/2024 11:43 PM FINDINGS: Limitations: Beam hardening artifact arising from the right hip arthroplasty obscures adjacent structures. Lungs: Bronchiectasis and atelectasis versus consolidation in the medial basal left lower lobe. Liver: Normal. No mass. Gallbladder and biliary ducts: Cholecystectomy. Pancreas: Normal. No ductal dilation. Spleen: Normal. No splenomegaly. Adrenal glands: Normal. No mass. Kidneys and ureters: Normal. No hydronephrosis. Stomach and bowel: Unremarkable. No obstruction. No mucosal thickening. Appendix: No evidence of appendicitis. Intraperitoneal space: Unremarkable. No free air. No significant fluid collection. Vasculature: Calcification of the aorta and branch vessels. Lymph nodes: Unremarkable. No enlarged lymph nodes. Urinary bladder: Unremarkable as visualized. Reproductive: Unremarkable as visualized. Bones/joints: Right hip arthroplasty. Degenerative changes in the spine. Soft tissues: Unremarkable. IMPRESSION: 1. No acute intra-abdominal findings. 2. Atherosclerotic vascular disease. 3. Artifact limits evaluation of the pelvic structures. 4. Bronchiectasis and atelectasis versus consolidation in the medial basal left lower lobe.
[2024-12-14 00:39] LABS: Alanine Aminotransferase 28 U/L (12-78); Albumin Level 4.2 g/dl (3.5-5.0); Albumin/Globulin Ratio 1.5 (1.1-1.8); Alkaline Phosphatase 168 U/L (38-126); Anion Gap 13.9 mEq/L (5-15); Aspartate Amino Transferase 28 U/L (14-36); Bilirubin,Total 0.5 mg/dl (0.2-1.3); Blood Urea Nitrogen 23 mg/dl (7-17); Calcium 9.1 mg/dl (8.4-10.2); Carbon Dioxide 26 mmol/L (22.0-30.0); Chloride 105 mmol/L (98-107); Creatinine Clearance Estimated 50 mL/min (50-200); Creatinine,Serum 1.00 mg/dl (0.52-1.04); Estimated Glomerular Filt Rate 55 ml/min (>60); GFR (African American) 67 ML/MIN (>60); Globulin 2.8 g/dL (1.3-3.2); Glucose 119 mg/dl (74-100); Lipase 108 U/L (23-300); Potassium 3.9 mmoL/L (3.5-5.1); Sodium 141 mmol/L (136-145); Total Protein,Serum 7.0 g/dl (6.3-8.2)
[2024-12-14 00:40] LABS: INR 0.99 (0.9-1.1); Prothrombin Time 11.0 seconds (10.1-12.5)
[2024-12-14] MEDS: ACETAMINOPHEN 500MG TAB 1000 MG PO (00:43)
[2024-12-14] MEDS: KETOROLAC 30MG/ML VIAL 15 MG IV (00:43)
[2024-12-14 00:46] VITALS: BP 123/90; PULSE 105; RESP 16; O2SAT 97
--- OUTSIDE RECORDS SUMMARY | 2024-12-14 01:02 | XMS_ITS | Encounter Summary ---
Author Organization Healthcare Address [address] [place] [address] Care Team Providers Care Granite Polisher Apprentice Name Role Phone Aman Hernandez MD Primary Care Provider Encounter Details Date Type Department Care Team (Latest Contact Info) Description 12/01/2024 Travel Social History Tobacco Use Types Packs/Day [...] time in the past 12 m [facility], were you homeless or living in a residential (including now)? Patient unable to answer 10/31/2024 [facility] Utilities Answer Date Recorded In [...] Vascular Lab [address] [place] [address] 12/15/2024 1:30 PM EDT Office Visit [facility] [address], [address] [place] [address] Raymond Nuñez MD [address] [facility] [address] [place] [address] 12/30/2024 1:00 PM EST Office Visit [facility] Otolaryngology [address], 3rd [place] [address] Yobani Benoit MD [address] [facility] [address] [place] [address] 05/24/2025 2:30 PM EDT Office Visit [facility] [address] [place] [address] Navya Woody MD [address] [facility] [address] [place] [address] 06/07/2025 2:00 PM EDT Consult [facility] [address], [address]st [place] [phone] Haseeb Dias MD [address] [facility] [address] [place] [address] documented as of this encounter Visit Diagnoses [...] documented as of this encounter Care Teams Granite Polisher Apprentice Relationship Specialty Start Date End Date Aman Hernandez MD [address] [address] PCP - General Family Medicine 06/18/21 documented as of this encounter
--- OUTSIDE RECORDS SUMMARY | 2024-12-14 01:02 | XMS_ITS | Encounter Summary ---
Author Organization Healthcare Address [address] [place] [address] Care Team Providers Care Executive Marketing Assistant Name Role Phone Aman Hernandez MD Primary Care Provider Encounter Details Date Type Department Care Team (Late st Contact Info) Description [facility] [address] [place] [address] Aroldo Cam MD [address] [address] Social History Tobacco Use Types Packs/Day [...] any time in the past 12 m [facility], were you homeless or living in a [facility]p (including now)? Patient unable to answer 10/31/2024 [facility] Utilities Answer Date Recorded In the [...] as of this encounter Miscellaneous Notes * Telephone Encounter - Emelyn Cote - 12/13/2024 2:06 PM EDT LM on for pt. to call me back to schedule referring appt. with Dr. Cam. documented in this encounter Plan of Treatment Upcoming Encounters Date Type Department Care Team (Late st Contact Info) Description 12/15/2024 12:00 PM EDT Appointment [facility] [address] [place] [address] 12/15/2024 1:30 PM EDT Office [facility] [address] [place] [phone] Raymond Nuñez MD [address] [place] [address] 12/30/2024 1:00 PM EST Office Visit [facility] Otol[facility] [address], 3[address] [place] [phone] Yobani Benoit MD [address] [place] [address] 05/24/2025 2:30 PM EDT Office Visit [facility] [address] [place] [phone] Navya Woody MD [address] [place] [address] 06/07/2025 2:00 PM EDT Consult [place] [facility] [address] [place] [address] Haseeb Dias MD [address] [place] [address] documented as of this encounter [...] documented as of this encounter Care Teams Executive Marketing Assistant Relationship Specialty Start Date End Date Aman Hernandez MD [address] [place] [address] PCP - General Family Medicine 06/18/21 documented as of this encounter
--- OUTSIDE RECORDS SUMMARY | 2024-12-14 01:02 | XMS_ITS | Encounter Summary ---
Author Organization Healthcare Address [address] [facility] [place] [address] Care Team Providers Care Supervisor Blueprinting And Photocopy Name Role Phone Aman Hernandez MD Primary Care Provider Encounter Details Date Type Department Care Team (Late st Contact Info) Description 11/30/2024 Telephone [facility] [address] [place] [address] Navya Woody MD [address] [place] [address] Social History Tobacco Use Types Packs/Day Years [...] any time in the past 12 m [facility], were you homeless or living in a retirement (including now)? Patient unable to answer 10/31/2024 [facility] Utilities Answer Date Recorded In [...] encounter Miscellaneous Notes * Telephone Encounter - Jeane Molina - 11/30/2024 2:32 PM EDT Spoke to Syeda - offered appt for tomorrow at 9. She will give me a call back and let me know. * Telephone Encounter - Ayala Burgess - 11/30/2024 2:23 PM EDT Clinical Concern/Question Reason for Call: Messi calling from ENT with provider would like patient seen urgently instead of april, requesting call back to patient to be moved up please. Best contact number: Other: [phone] Optimal time of day to reach caller: ANYTIME Additional comments/information from caller: None Note: Please do not reply to this message. Follow-up communication and further actions as a result of this message need to be communicated with the patient directly, if the patient is not active onMyChart. If the patient is active on MyChart, they will receive notification of the communication/outcome via MyChart. documented in this encounter Plan of Treatment Upcoming Encounters Date Type Department Care Team (Late st Contact Info) Description 12/15/2024 12:00 PM EDT Appointment [facility] [address] [place] [address] 12/15/2024 1:30 PM EDT Office [facility] [address] [place] [address] Raymond Nuñez MD [address] [place] [address] 12/30/2024 1:00 PM EST [facility] Otol[facility] [address]rd [place] [address] Yobani Benoit MD [address] [place] [address] 05/24/2025 2:30 PM EDT Office Visit [facility] [address] [place] [address] Navya Woody MD [address] [place] [address] 06/07/2025 2:00 PM EDT Consult [facility] [address] [place] [address] Haseeb Dias MD [address] [place] [address] documented as of this encounter [...] as of this encounter Care Teams Supervisor Blueprinting And Photocopy Relationship Specialty Start Date End Date Aman Hernandez MD [address] [place] [address] PCP - General Family Medicine 06/18/21 documented as of this encounter
--- OUTSIDE RECORDS SUMMARY | 2024-12-14 01:02 | XMS_ITS | Encounter Summary ---
Author Organization Healthcare Address [address] [place] [address] Care Team Providers Care Conventional Machinist Name Role Phone Aman Hernandez MD Primary Care Provider Reason for Visit * Reason Onset Date Comments [facility] Clinical Concern/Question 11/30/2024 Encounter Details Date Type Department Care Team (Late st Contact Info) Description 11/30/2024 Telephone [facility] [address] [place] [address] Yobani Benoit MD [address] [place] [address] [facility] Clinical Concern/Question Social History Tobacco Use Types Packs/Day Years [...] were you homeless or living in a [facility] (including now)? Patient unable to answer 10/31/2024 [facility] Utilities Answer Date Recorded In the [...] encounter Miscellaneous Notes * Telephone Encounter - Messi Medrano - 11/30/2024 2:25 PM EDT I contacted the patient and got her scheduled for an appointment. I informed her that I contacted ophthalmology and they are going to work on getting her scheduled for an urgent appointment. * Telephone Encounter - Michael Carter - 11/30/2024 1:09 PM EDT Clinical Concern/Question Reason for Call: She is checking on the status of the appts. Best contact number: [phone] Optimal time of day to reach caller: Additional comments/information from caller: Note: Please do not reply to this message. Follow-up communication and further actions as a result of this message need to be communicated with the patient directly, if the patient is not active onMyChart. If the patient is active on MyChart, they will receive notification of the communication/outcome via [place] [employer]. documented in this encounter Plan of Treatment Upcoming Encounters Date Type Department Care Team (Late st Contact Info) Description 12/15/2024 12:00 PM EDT Appointment [facility] [address] [place] [address] 12/15/2024 1:30 PM EDT Office Visit [place] [facility] [address] [place] [address] Raymond Nuñez MD [address] [facility] [address] [place] [address] 12/30/2024 1:00 PM EST [facility] [address] 3[address] [place] [address] Yobani Benoit MD [address] [place] [address] 05/24/2025 2:30 PM EDT Office Visit [facility] [address] [place] [address] Navya Woody MD [address] [facility] [address] [place] [address] 06/07/2025 2:00 PM EDT Consult [facility] [address] [place] [address] Haseeb Dias MD [address] [facility] [address] [place] [address] documented as of this encounter [...] documented as of this encounter Care Teams Conventional Machinist Relationship Specialty Start Date End Date Aman Hernandez MD [address] [facility] [address] [place] [address] PCP - General Family Medicine 06/18/21 documented as of this encounter
--- OUTSIDE RECORDS SUMMARY | 2024-12-14 01:02 | XMS_ITS | Data Portability ---
Author Organization [facility] CARA MunozS [place] Address [address] [place] [address] Assessment Encounter Date Assessment Date Assessment LastModified by Organization Details LastModified Time 10/16/2017 10/16/2017 was seen and nothing wrong with the liver smoberly Not available 10/16/2017 12:12:56 Plan of Treatment Reminders Order Date Submit Date Provider Last Modified By Organization Details Last Modified Time Details Appointments None recorded. Lab None recorded. Referral pain management referral 2017 018 ana Woodall MD [facility]), [address], [place], [address], 8 08:30:20 Procedures None recorded. Surgeries None recorded. Imaging None recorded. Medication Orders Cortisone (hydrocort isone) 1 % topical cream 2018 019 INTERFACE [facility], [address] [place], [place], [id number], 9 12:23:49 Savella 100 mg tablet 2018 019 INTERFACE [facility], [address] , [place], [address], 9 12:12:52 nabumetone 750 mg tablet 2018 019 INTERFACE [facility], [address], [place], [address], 9 12:12:51 Depo-Medro l 80 mg/mL suspension for injection 2018 019 [email or web address] Not available 9 11:57:03 amitriptyl ine 100 mg tablet 2018 019 INTERFACE [facility], [address] [facility], [place], [address], 9 12:12:52 Savella 100 mg tablet 2018 019 INTERFACE [facility], [address] [facility], [place], [address], 9 11:45:20 nabumetone 750 mg tablet 2018 019 INTERFACE [facility], [address] [facility], [place], [address], 9 11:46:16 Depo-Medro l 80 mg/mL suspension for injection 2018 019 [email or web address] Not available 9 12:00:45 amitriptyl ine 100 mg tablet 2018 019 INTERFACE [facility], [address] [facility], [place], [address], 9 11:45:20 nabumetone 750 mg tablet 2017 018 INTERFACE [facility], [address] [facility], [place], [address], 8 11:57:29 Savella 100 mg tablet 2017 018 INTERFACE [facility], [address] , [place], [address], 8 11:57:30 Depo-Medro l 80 mg/mL suspension for injection 2017 018 [email or web address] Not available 9 11:34:24 amitriptyl ine 100 mg tablet 2017 018 INTERFACE [facility], [address], [place], [address], 8 11:57:29 nabumetone 750 mg tablet 2017 018 INTERFACE [facility], [address], [place], [address], 8 12:12:01 Savella 100 mg tablet 2017 018 INTERFACE [facility], [address], [place], [address], 8 12:05:04 amitriptyl ine 100 mg tablet 2017 018 INTERFACE [facility], [address], [place], [address], 8 12:10:22 Savella 100 mg tablet 2017 018 INTERFACE [facility], [address], [place], [address], 8 13:57:49 cyclobenza antonio 10 mg tablet 2017 018 [email or web address] [facility], [address], [place], [address], 8 12:00:12 amitriptyl ine 75 mg tablet 2017 018 [email or web address] [facility], [address], [place], [address], 8 11:42:42 Patient TargetsNo targets recorded. Patient Instructions Encounter Date Encounter Id Patient Instructions Last Modified By Organization Details Last Modified Time 07/17/2017 [id number] chronic pain: care instructions smoberly Not available 07/17/2017 13:57:48 neuropathic pain : care instructions smoberly Not available 07/17/2017 13:57:48 Quitting Tobacco : Care Instructions smoberly Not available 07/17/2017 13:57:48 10/16/2017 [id number] arthritis: care instructions smoberly Not available 10/16/2017 12:12:00 osteoarthritis: care instructions smoberly Not available 10/16/2017 12:12:00 chronic pain: care instructions smoberly Not available 10/16/2017 12:05:02 neuropathic pain : care instructions smoberly Not available 10/16/2017 12:05:02 Quitting Tobacco : Care Instructions smoberly Not available 10/16/2017 12:05:02 01/13/2018 [id number] arthritis: care instructions smoberly Not available 01/13/2018 11:57:27 osteoarthritis: care instructions smoberly Not available 01/13/2018 11:57:27 chronic pain: care instructions smoberly Not available 01/13/2018 11:57:27 neuropathic pain : care instructions smoberly Not available 01/13/2018 11:57:27 Quitting Tobacco : Care Instructions smoberly Not available 01/13/2018 11:57:27 04/14/2018 [id number] chronic pain: care instructions smoberly Not available 04/14/2018 11:45:18 neuropathic pain : care instructions smoberly Not available 04/14/2018 11:45:18 arthritis: care instructions smoberly Not available 04/14/2018 11:45:18 osteoarthritis: care instructions smoberly Not available 04/14/2018 11:45:18 Quitting Tobacco : Care Instructions smoberly Not available 04/14/2018 11:45:18 10/12/2018 [id number] chronic pain: care instructions smoberly Not available 10/12/2018 12:12:50 neuropathic pain : care instructions smoberly Not available 10/12/2018 12:12:50 arthritis: care instructions smoberly Not available 10/12/2018 12:12:50 osteoarthritis: care instructions smoberly Not available 10/12/2018 12:12:50 Quitting Tobacco : Care Instructions smoberly Not available 10/12/2018 12:12:50 Reason for Referral Pain Management Referral for Chronic pain chronic pain, back and other Referring Physician: Nancy Barker, Rheumatology, Encounter Date: 07/17/2017 Results Created Date Observation Date Name Description Value Unit Range Abnormal Flag Note LastModifiedBy Organization Detail LastModifiedTime 05/24/19 20 05/13/2019 MRI, cervi noel spine , w/o contr ast No observ ation record ed. BARCODE Not Available 2019 15:05:35 05/24/19 20 05/13/2019 MRI, lumba r spine , w/o contr ast No observ ation record ed. BARCODE Not Available 2019 15:05:35 Result Notes None recorded. Problems Name Problem SNOMED Code Status Onset Date Resolution Date Notes Provider Name and Address Organization Details Recorded Time Paresthes ia of skin Active 2015 From Automated Load;Provi racquel: Terrence, Gallo;Stat us: Active Not Available [facility] 6 01:37:07 Fibromyal diamond 339636397 Active 2016 NANCY BARKER, EXECUTIVE TEAM LEADER [address] [place], [address] , [facility] 7 10:20:34 Problem Notes None recorded. Procedures Surgical History Date Name Laterality Status Provider Name and Address Organization Details Recorded Time Carpal tunnel surgery completed Nicolasa Barnhart [facility] 06/23/2016 10:23:06 Other completed Amairani Hilton [facility] 09/08/2016 10:57:20 Imaging Results None recorded. Procedure Notes None recorded. Medical Equipment None Reported. Allergies Allergen ID Allergen Name Allergen Category Reaction Reaction Severity Criticality Documentation Date Start Date Code Code System Note Provider Name and Address Organization Details Recorded Time 347685 Product containin g penicilli n (product) medicatio n Not available Not available Not available 01/18/20162006 31226 8001 SNOMED Comme nt: Creat ed By: Heather De Anda Creat ed Date: 2006 10:03 :06 AM; Not Available [facility] 6 04:22:16 Medications Name Sig Start Date Stop Date Status Note LastModified by Organization Details LastModified Time cyclobenz aprine 10 mg tablet Take 1 tablet every day by oral route. 10/16 completed Not Available Not Available Not Available pramipexo le 1 mg tablet active Not Available Not Available Not Available Depo-Medr ol 40 mg/mL suspensio n for injection Take 120 mg by injectio n route. 10/16 completed [facility] #[id number] 06-02 Not Available Not Available Not Available nabumeton e 750 mg tablet Take 1 tablet twice a day by oral route. 2018 active Not Available Not Available Not Jeannette bahena clindamyc in HCl 300 mg capsule 12/22 completed Not Available Not Available Not Available azithromy dee 250 mg tablet 03/24 completed Not Available Not Available Not Available aspirin 325 mg tablet Daily 04/14 completed Duration : 30 days;Elliot quency: daily;Me dication Descript ion: aspirin; Dosage:1 ; Route:or al; refills: 0; Quantity :30 tablet Not Available Not Available Not Available amitripty line 75 mg tablet Take 1 tablet every day by oral route. 01/13 completed Not Available Not Available Not Available tizanidin e 4 mg tablet Take 1 tablet every 8 hours by oral route. 10/16 completed Not Available Not Available Not Available meloxicam 15 mg tablet 09/08 completed Not Available Not Available Not Available metoprolo l succinate ER 100 mg tablet,ex tended release 24 hr active Not Available Not Available Not Available gabapenti n 400 mg capsule Take 1 capsule 4 times a day by oral route. 07/17 completed Nancy Barker (stopped - caused forgetfu llness and weight gain) Not Available Not Available Not Available prednison e 5 mg tablet take one po tid x 1 week; one po bid x 1 week; then one po daily x 1 week then off 09/08 completed Not Available Not Available Not Available amlodipin e 2.5 mg tablet active Not Available Not Available Not Available hydrocodo ne 10 mg-acetam inophen 325 mg tablet active Not Available Not Available Not Available tramadol 50 mg tablet 09/08 completed Not Available Not Available Not Available Depo-Medr ol 80 mg/mL suspensio n for injection Take 120 mg by injectio n route. 2018 active [facility] #[id number] 63-01 Not Available Not Available Not Available levothyro xine 25 mcg tablet active Not Available Not Available Not Available levothyro xine 75 mcg tablet 07/17 completed Not Available Not Available Not Available meloxicam 7.5 mg tablet 06/23 completed Not Available Not Available Not Available amitripty line 25 mg tablet Take 1 tablet every day by oral route. 10/16 completed Not Available Not Available Not Available temazepam 30 mg capsule 06/23 completed Not Available Not Available Not Available hydrocodo ne 7.5 mg-acetam inophen 325 mg tablet 09/08 completed Not Available Not Available Not Available oxybutyni n chloride ER 5 mg tablet,ex tended release 24 hr active Not Available Not Available Not Available gabapenti n 300 mg capsule Take 1 capsule 3 times a day by oral route. 12/22 completed Nancy Barker Not Available Not Available Not Available lisinopri l 20 mg-hydroc hlorothia zide 25 mg tablet active Not Available Not Available No t Available mupirocin 2 % topical ointment 09/08 completed Not Available Not Available Not Available furosemid e 20 mg tablet active Not Available Not Available Not Available diazepam 10 mg tablet active Not Available Not Available Not Available methylpre dnisolone 4 mg tablets in a dose pack 06/23 completed Not Available Not Available Not Available amitripty line 100 mg tablet Take 1 tablet every day by oral route. 2018 active Not Available Not Available Not Avai lable oxycodone 5 mg tablet 09/08 completed Not Available Not Available Not Available escitalop maisha 20 mg tablet 07/17 completed Not Available Not Available Not Available rosuvasta tin 20 mg tablet active Not Available Not Available Not Available nitrofura ntoin monohydra te/macroc rystals 100 mg capsule active Not Available Not Available Not Available Cortisone (hydrocor tisone) 1 % topical cream APPLY A THIN LAYER TO THE AFFECTED AREA(S) BY TOPICAL ROUTE 2 TIMES PER DAY 2018 active Not Available Not Available Not Avai lable Savella 100 mg tablet Take 1 tablet twice a day by oral route. 2018 active Not Available Not Available Not Avai lable Savella 09/09 completed Not Available Not Available Not Available Vitals Date Recorded Body height Body mass index (BMI) Body weight Respiratory rate Heart rate Systolic And Diastolic Provider Name and Address Organization Details Last Updated DateTime 9 160.02 cm 24.8 kg/m2 47636.9 3 g 18 /min 86 /min 127/50 mm[Hg] Perri Kaba [facility] 9 11:34:13 Date Recorded Body height Body mass index (BMI) Body weight Heart rate Systolic And Diastolic Provider Name and Address Organization Details Last Updated DateTime 07/17/2017 160.02 cm 21.1 kg/m2 82640.49 g 105 /min 205/103 mm[Hg] Amairani Hilton [facility] 07/17/2017 13:10:11 Date Recorded Body height Body mass index (BMI) Body weight Heart rate Respiratory rate Systolic And Diastolic Provider Name and Address Organization Details Last Updated DateTime 9 160.02 cm 25.7 kg/m2 43991.8 9 g 93 /min 18 /min 184/93 mm[Hg] Laurence Worley [facility] 9 12:05:58 Date Recorded Body height Body mass index (BMI) Body weight Heart rate Systolic And Diastolic Provider Name and Address Organization Details Last Updated DateTime 10/16/2017 160.02 cm 23.2 kg/m2 17602.6 g 99 /min 186/103 mm[Hg] Amairani Hilton [facility] 10/16/2017 11:39:42 Date Recorded Body height Body mass index (BMI) Body weight Heart rate Systolic And Diastolic Provider Name and Address Organization Details Last Updated DateTime 01/13/2018 160.02 cm 24.1 kg/m2 45262.56 g 76 /min 136/60 mm[Hg] Amairani Hilton [facility] 01/13/2018 11:44:37 Social History Question Answer Notes LastModified by Organizat ion Details LastModified Time Tobacco Smoking Status Former Smoker Laurence Worley [facility] 10/12/2018 12:01:03 How Much Tobacco Do You Chew? None [email or web address] Information not available 10/12/2018 What Was The Date Of Your Most Recent Tobacco Screening? 04/14/2018 Information not available 04/12/2019 How Much Tobacco Do You Smoke? 0.5 PPD Decreased Amt Now Information not available 06/23/2016 How Many Years Have You Smoked Tobacco? 40 Information not available 06/23/2016 Sex: Unknown Functional Status Question Answer Note LastModified by Organizat ion Details LastModified Time What is your level of alcohol consumption? None Information not available 06/23/2016 Do you or have you ever used smokeless tobacco? Never used smokeless tobacco [email or web address] Information not available 10/12/2018 Do you or have you ever used e-cigarettes or vape? Never used electronic cigarettes Information not available 10/12/2018 Mental Status None recorded. Family History Relationship Description Onset Age of this Age Resolved Age Notes LastModified by Organization Details LastModified Time Father Myocardial infarction 71 Not available 12/25 11:42:17 Father Arthritis [email or web address] Not availa ble 09/08/2016 10:56:47 Maternal Aunt Cerebrovascu lar accident Not available 11:42:17 Brother Arthritis [email or web address] Not avail able 09/08/2016 10:56:54 Sister Arthritis [email or web address] Not availa ble 09/08/2016 10:56:59 Notes: old age illness - d age 80 Medical History Condition Response Emphysema N COPD N Arthritis Y Acid Reflux (GERD) N Rheumatoid Arthritis N Bleeding Disorder N Asthma N Diabetes N Heart Disease N Hypertension Y Gynecological HistoryNo gynecological history recorded. Obstetrics History GPAL:G 0 P 0 0 0 0 Past Encounters Encounter ID Performer Location Encounter Start Date Encounter Closed Date Diagnosis/Indication Diagnosis SNOMED-CT Code Diagnosis ICD10 Code Diagnosis IMO Codes Diagnosis Note [id number] NANCY BARKER [facility]N [facility] [address] [place] [address] 06/23/2016 09:56:50 06/23/2016 10:51:34 Pain of multiple joints 22492382 M25.50 chronic and recurring bilateral hand pains and stiffnessg rip is decreasedm ultiple nodular activity on hands and feetpredni sone trial x 3 weeks and then f/u in 1 month [id number] [facility]ANC[facility] B[facility]ER [facility] [address] [place] [address] 09/08/2016 09:55:07 09/08/2016 11:30:21 Neuropathy 848610522 G62.9 chronic and recurring neuropathi c burning and tingling into bilateral upper and lower extremitie s exacerbate d by aleah butler provide with gabapentin refills and have her sign a controlled substance agreementk asper today Fibromyalgia 452095442 M 79.7 refills today labs are good normal systemic exam [id number] NANCY BARKER APRN [facility] [place] [id number] 12/22/2016 09:11:25 12/23/2016 08:26:18 Neuropathy 734892044 G62.9 chronic and recurring neuropathi c burning and tingling into bilateral upper and lower extremitie s exacerbate d by aleah butler provide with gabapentin refills and have her sign a controlled substance agreementk asper today Fibromyalgia 164454757 M 79.7 refills today labs are good normal systemic exam Chronic low back pain 27 9561513 M54.5 with left sided stiffness; sciatica worsenedwi ll provide with 120 mg IM injection in the left buttocks today [id number] NANCY BARKER APRN [facility] [place] [address] 03/24/2017 11:07:54 03/24/2017 14:21:04 Fibromyalgia 399142545 M79.7 refills today labs are good normal systemic exam Neuropathy 750532914 G62 .9 chronic and recurring neuropathi c burning and tingling into bilateral upper and lower extremitie s exacerbate d by aleah varghesetopped the neurontin on her ownwill start her on amitriptyl ine Chronic low back pain 27 0916171 M54.5 with left sided stiffness; sciatica worsened bilaterall ywill provide with 120 mg IM injection in the left buttocks today [id number] NANCY BARKER APRN [facility] [place] [id number] 07/17/2017 12:57:55 07/17/2017 14:09:03 Fibromyalgia 607467473 M79.7 refills todaylabs are goodsympto matic complaints will continue savella and increase the amitriptyl ine Neuropathy 820795913 G62 .9 chronic and recurring neuropathi c burning and tingling into bilateral upper and lower extremitie s exacerbate d by aleah varghesetopped the neurontin on her owncontinu e her on amitriptyl ine Chronic low back pain 27 3655952 M54.5 with left sided stiffness; sciatica continues Chronic pain 76435355 G8 9.29 recurring pain and tenderness secondary to oa, fibromyalg ia with being off pain meds she is crying and worsening I discussed with her and she would like a pain management evaluation [id number] NANCY BARKER APRN [facility] [address] [place] [address] 10/16/2017 11:19:27 10/16/2017 13:01:12 Fibromyalgia 809195082 M79.7 refills todaylabs are goodsympto matic complaints will continue savella and increase the amitriptyl ine Neuropathy 580693798 G62 .9 chronic and recurring neuropathi c burning and tingling into bilateral upper and lower extremitie s exacerbate d by fibromyalg iastopped the neurontin on her owncontinu e her on amitriptyl inefailed lyrica and gabapentin Chronic low back pain 27 2837830 M54.5 with left sided stiffness; sciatica continues Chronic pain 62496816 G8 9.29 recurring pain and tenderness secondary to oa, fibromyalg ia with being off pain meds she is crying and worsening I discussed with her and she did go to the pain management and they told her they couldn't help her she reports she is feeling like a drug addict, but she reports she is off her Osteoarthritis 074588465 M19.90 [id number] NANCY BARKER APRN [facility] [address] [place] [address] 01/13/2018 11:18:09 01/13/2018 12:11:34 Fibromyalgia 916870883 M79.7 refills todaylabs are goodsympto matic complaints will continue savella and increase the amitriptyl ine Neuropathy 201184710 G62 .9 chronic and recurring neuropathi c burning and tingling into bilateral upper and lower extremitie s exacerbate d by fibromyalg iastopped the neurontin on her owncontinu e her on amitriptyl inefailed lyrica and gabapentin Chronic low back pain 27 8952744 M54.5 with left sided stiffness; sciatica continues Chronic pain 45876398 G8 9.29 recurring pain and tenderness secondary to oa, fibromyalg ia with being off pain meds she is crying and worsening I discussed with her and she did go to the pain management and they told her they couldn't help her she reports she is feeling like a drug addict, but she reports she is off her Osteoarthritis 538221573 M19.90 chronic recurring degenerati ve joint changes will continue with nabumetone Pain of le ft hip joint 3050698952 15816 M25.552 chronic and recurring degenerati ve changes she reports left hip pain recurring with muscle pain and tenderness will provide with an IM injection of 80 mg depo medrol today [id number] NANCY BARKER APRN [facility] [address] [place] [address] 04/14/2018 11:22:52 04/14/2018 11:58:25 Osteoarthritis 136665083 M19.90 chronic recurring degenerati ve joint changes will continue with nabumetone Fibromyalgia 402533006 M 79.7 refills todaylabs are goodsympto matic complaints will continue savella and increase the amitriptyl ine Neuropathy 370449733 G62 .9 chronic and recurring neuropathi c burning and tingling into bilateral upper and lower extremitie s exacerbate d by fibromyalg iastopped the neurontin on her owncontinu e her on amitriptyl inefailed lyrica and gabapentin Chronic low back pain 27 5817195 M54.5 with left sided stiffness; sciatica continues Chronic pain 01662714 G8 9.29 recurring pain and tenderness secondary to oa, fibromyalg ia with being off pain meds she is crying and worsening I discussed with her and she did go to the pain management and they told her they couldn't help her she reports she is feeling like a drug addict, but she reports she is off her Pain of le ft hip joint 9824450264 67813 M25.552 chronic and recurring degenerati ve changes she reports left hip pain recurring with muscle pain and tenderness will provide with an IM injection of 120 mg depo medrol today due to sciatica [id number] NANCY BARKER APRN [facility] [address] [place] [address] 10/12/2018 11:03:28 10/19/2018 15:43:40 Fibromyalgia 534822909 M79.7 refills todaylabs are goodsympto matic complaints will continue savella and increase the amitriptyl ine Osteoarthritis 965611654 M19.90 chronic recurring degenerati ve joint changes will continue with nabumetone Neuropathy 576800703 G62 .9 chronic and recurring neuropathi c burning and tingling into bilateral upper and lower extremitie s exacerbate d by fibromyalg iastopped the neurontin on her owncontinu e her on amitriptyl inefailed lyrica and gabapentin Chronic low back pain 27 2762040 M54.5 with left sided stiffness; sciatica continues Chronic pain 35451502 G8 9.29 recurring pain and tenderness secondary to oa, fibromyalg ia with being off pain meds she is crying and worsening I discussed with her and she did go to the pain management and they told her they couldn't help her she reports she is feeling like a drug addict, but she reports she is off her Pain of le ft hip joint 1450297633 29648 M25.552 chronic and recurring degenerati ve changes she reports left hip pain recurring with muscle pain and tenderness will provide with an IM injection of 120 mg depo medrol today due to sciatica 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 Photograph today Will start her on cortisone and asked that she discuss with her primary care changes in vasculariz ation of her feet Health Concerns Section Related Observation LastModified by Organization Detai ls LastModified Time None Recorded Concern Status LastModified by Organization Details LastModified Time None Recorded Advance Directives Directive None Recorded Payers Insurance Date Sequence Insurance Name Policy Number Policy Eagle Covered Member ID Eagle Member ID Guarantor Name 01/18/2020 1 [employer] (MEDICARE REPLACEMENT/ ADVANTAGE - PPO) [place] M[place] [id number] [place] M[place] Notes Date Note Type Note Provider Name and Address Organization Details Recorded Time 07/17/2017 text/html ROS as noted in the HPI she has been off the gabapentin, stopped all of her pain medication and is vomiting a lot; she is waking up with kendra horses every night; she reports she is till on the savella; she is eating bananas and not feeling like it is helping; she feels like she can't walk anymore; she dreads doing activity now; she reports she cannot stand without pain; nothing is comfortable; she has lost 15 lbs since last visit in February; she currently denies cp, soa, rash or fevers and all others are negative [place], [address], [facility] 07/17/2017 14:05:13 10/16/2017 text/html ROS as noted in the HPI was seen at pain management; she was referred to another pain management who told her she couldn't do anything; she reports she doesn't remember their names, but she she has been off the gabapentin, stopped all of her pain medication and is vomiting a lot; she is waking up with kendra horses every night; she reports she is till on the savella; she is eating bananas and not feeling like it is helping; she feels like she can't walk anymore; she dreads doing activity now; she reports she cannot stand without pain; nothing is comfortable; she has lost 15 lbs since last visit in February; she currently denies cp, soa, rash or fevers and all others are negative [place], [address], [facility] 10/22/2017 20:40:54 01/13/2018 text/html ROS as noted in the HPI improved somewhat; having chronic recurring joint pain and tenderness; f/u on fibro; continues with neuropathy; she has chronic pain and seen with pain management; she has worsening left hip pain and left shoulder pain; without interval infection; no s/e from medications; she currently denies bowel or bladder changes, chest pain, shortness of air, rashes, fevers and all others are negative [place], [address], [facility] 01/13/2018 12:03:16 04/14/2018 text/html ROS as noted in the HPI left hip pain with sciatica is improved; she has just returned from [place] and had very little issues while there, but returning to our cold, wet weather has caused grief; she reports she is without interval infection; no s/e from medications; she currently denies bowel or bladder changes, chest pain, shortness of air, rashes, fevers and all others are negative NANCY BARKER APRN [address] [place], [address], [facility] 04/14/2018 11:48:30 10/12/2018 text/html ROS as noted in the HPI f/u on fibromyalgia; with chronic and recurring bilateral hip pain with sciatica worsening again; she is going to have an mri next ; with a rash on her right foot; she reports she is without interval infection; no s/e from medications; she currently denies bowel or bladder changes, chest pain, shortness of air, fevers and all others are negative NANCY BARKER APRN [address] [place], [address], [facility] 10/17/2018 17:27:40 OBGyn Episode No OBEpisode recorded.
--- OUTSIDE RECORDS SUMMARY | 2024-12-14 01:02 | XMS_ITS | Encounter Summary ---
Author Organization [facility] Address [address] [place] [address] Care Team Providers Care Veterinary Physiologist Name Role Phone Aman Hernandez MD Primary Care Provider Encounter Details Date Type Department Care Team (Latest Contact Info) Description 12/13/2024 Travel Social History Tobacco Use Types Packs/Day [...] any time in the past 12 m [facility], were you homeless or living in a retirement (including now)? Patient unable to answer 10/31/2024 [facility] Utilities Answer Date Recorded In the [...] Vascular Lab [address] [place] [address] 12/15/2024 1:30 PM EDT Office Visit [facility] [address], [address] [place] [address] Raymond uNñez MD [address] [place] [address] 12/30/2024 1:00 PM EST Office Visit [facility] Otolaryngology [address], [address] [place] [address] Yobani Benoit MD [address] [facility] [address] [place] [phone] 05/24/2025 2:30 PM EDT Office Visit [facility] [address] [place] [address] Navya Woody MD [address] [facility] [address] [place] [address] 06/07/2025 2:00 PM EDT Consult [facility] [address], [address] [place] [phone] Haseeb Dias MD [address] [facility] [address] [place] [address] documented as of this encounter [...] documented as of this encounter Care Teams Veterinary Physiologist Relationship Specialty Start Date End Date Aman Hernandez MD [address] [address] PCP - General Family Medicine 06/18/21 documented as of this encounter
--- OUTSIDE RECORDS SUMMARY | 2024-12-14 01:02 | XMS_ITS | Encounter Summary ---
Author Organization Healthcare Address [address] [place] [address] Care Team Providers Care Aerial Lineman Name Role Phone Aman Hernandez MD Primary Care Provider Encounter Details Date Type Department Care Team (Late st Contact Info) Description 12/05/2024 [facility]ology [address] [place] [address] Messi Medrano Social History Tobacco Use Types Packs/Day Years [...] any time in the past 12 m [facility], were you homeless or living in a senior living (including now)? Patient unable to answer 10/31/2024 [facility] Utilities Answer Date Recorded In the past 12 months has e [employer], gas, oil, or water [employer] threatened to shut off services in your [...] * Telephone Encounter - Messi Medrano - 12/05/2024 8:24 AM EDT I called the patient to see if she would like to come in on 12/21/24 instead of 12/30/24, but due to her not answering, I Left a voicemail. documented in this encounter Plan of Treatment Upcoming Encounters Date Type Department Care Team (Late st Contact Info) Description 12/15/2024 12:00 PM EDT Appointment [facility] Vascular Lab [address] [place] [address] 12/15/2024 1:30 PM EDT Office Visit [facility] [address] [place] [address] Raymond Nuñez MD [address] [place] [address] 12/30/2024 1:00 PM EST [facility] [address] [place] [address] Yobani Benoit MD [address] [place] [address] 05/24/2025 2:30 PM EDT Office Visit [facility] [address] [place] [address] Navya Woody MD [address] [place] [address] 06/07/2025 2:00 PM EDT Consult [place] [facility] [address] [place] [address] Haseeb Dias MD [address] [place] [address] documented as of this encounter [...] documented as of this encounter Care Teams Aerial Lineman Relationship Specialty Start Date End Date Aman Hernandez MD [address] [place] [address] PCP - General Family Medicine 06/18/21 documented as of this encounter
--- OUTSIDE RECORDS SUMMARY | 2024-12-14 01:02 | XMS_ITS | Encounter Summary ---
Author Organization Healthcare Address [address] [place] [address] Care Team Providers Care Geographic Information Systems Director Name Role Phone Aman Hernandez MD Primary Care Provider Encounter Details Date Type Department Care Team (Latest Contact Info) Description 11/25/2024 Travel Social History Tobacco Use Types Packs/Day [...] time in the past 12 m [facility], were you homeless or living in a care home (including now)? Patient unable to answer 10/31/2024 [facility] Utilities Answer Date Recorded In the [...] Vascular Lab [address] [place] [address] 12/15/2024 1:30 PM EDT Office Visit [facility] [address], [address] [place] [address] Raymond Nuñez MD [address] [facility] [address] [place] [address] 12/30/2024 1:00 PM EST Office Visit [facility] Otolaryngology [address], [address] [place] [address] Yobani Benoit MD [address] [facility] [address] [place] [address] 05/24/2025 2:30 PM EDT Office Visit [facility] [address] [place] [address] Navya Woody MD [address] [facility] [address] [place] [address] 06/07/2025 2:00 PM EDT Consult [facility] [address], [address] [place] [phone] Haseeb Dias MD [address] [facility] [address] [place] [address] documented as of this encounter [...] documented as of this encounter Care Teams Geographic Information Systems Director Relationship Specialty Start Date End Date Aman Hernandez MD [address] [address] PCP - General Family Medicine 06/18/21 documented as of this encounter
--- OUTSIDE RECORDS SUMMARY | 2024-12-14 01:03 | XMS_ITS | Encounter Summary ---
Author Organization Healthcare Address [address] [place] [address] Care Team Providers Care Professor Of Spanish Name Role Phone Aman Hernandez MD Primary Care Provider Encounter Details Date Type Department Care Team (Latest Contact Info) Description 11/03/2024 Travel Social History Tobacco Use Types Packs/Day [...] any time in the past 12 m [facility], were you homeless or living in a group home (including now)? Patient unable to answer 10/31/2024 [facility] Utilities Answer Date Recorded In the past [...] as of this encounter Functional Status * Calculated C-SSRS Risk Score (Lifetime/Recent) Answer Date of Assessment Author Low Risk 11/03/2024 8:00 PM EDT KarthikRosi * Question Answer Date of Assessment Author 1. Wish to be (Past 1 Month) Yes 025 8:00 PM EDT Karthik Manuelito 2. Non-Specific Active Suici john Thoughts (Past 1 Month) No 11/03/2024 8:00 PM EDT Manuelito Angeles 6. Suicidal Behavior (Lifetime) No 8:00 PM EDT Manuelito Angeles documented as of this encounter Plan of Treatment Upcoming Encounters Date Type Department Care Team (Late st Contact Info) Description 12/15/2024 12:00 PM EDT Appointment [facility] Vascular Lab [address] [facility] [address] [place] [address] 12/15/2024 1:30 PM EDT Office Visit [facility] [address] [place] [address] Raymond Nuñez MD [address] [place] [phone] 12/30/2024 1:00 PM EST Office Visit [facility] Otolaryngology [address] [place] [address] Yobani Benoit MD [address] [place] [address] 05/24/2025 2:30 PM EDT Office Visit [facility] [address] [place] [address] Navya Woody MD [address] [place] [address] 06/07/2025 2:00 PM EDT Consult [facility] [address] [place] [address] Haseeb Dias MD [address] [place] [address] documented as of this encounter [...] documented as of this encounter Care Teams Professor Of Spanish Relationship Specialty Start Date End Date Aman Hernandez MD [address] [facility] [address] [place] [address] PCP - General Family Medicine 06/18/21 documented as of this encounter
--- OUTSIDE RECORDS SUMMARY | 2024-12-14 01:03 | XMS_ITS | Patient Health Record ---
Author Organization [facility] Address [address] [place] [address] Care Team Providers Care Product Safety Technical Assistant Name Role Phone Yonny Scott Primary Care Provider [phone] Reanna Perdomo Unavailable [phone] Migration, Provider Unavailable Unavailable Allergies Allergen (clinical drug ingredient) Drug/Non Drug Allergy documented on EMR Reaction Allergy Type Onset Date Status Penicillin Unknown Drug Allergy Active Results Component Value Reference Range Notes EEG Reviewed date:09/26/2024 03:13:22 PM Interpretation: Performing Lab: Notes/Report: THYROID PANEL WITH TSH (7444 ) Reviewed date:09/26/2024 03:13:21 PM Interpretation: Performing Lab:[place] [facility] [id number] [facility] [employer], [facility] VmkvGD[address] Micheal Hilton Notes/Report: NON-FASTING; NON-FASTING; NON-FASTING; NON-FASTING; NON-FAST T3 UPTAKE 28 22-35 % T4 (THYROXINE), TOTAL 6.1 5.1-11.9 mcg/dL FREE T4 INDEX (T7) 1.7 1.4-3.8 TSH 19.85 0.40-4.50 mIU/L COMPREHENSIVE METABOLIC PANE L (06008) Reviewed date:09/26/2024 03:13:21 PM Interpretation: Performing Lab:[place] [facility] [id number] [facility] GroupChildren's MinnesotaXhjnPA[address] Micheal Hilton Notes/Report: NON-FASTING; NON-FASTING; NON-FASTING; NON-FASTING; [...] Reviewed date:09/26/2024 03:13:21 PM Interpretation: Performing Lab:[place], [facility], [facility] ServicesEcfqRN[address] Micheal Hilton Notes/Report: NON-FASTING; NON-FASTING; NON-FASTING; NON-FASTING; [...] MPV 10.1 7.5-12.5 fL ABSOLUTE NEUTROPHILS 5032 1964-6952 cells/uL ABSOLUTE LYMPHOCYTES 2559 850-3900 cells/uL ABSOLUTE MONOCYTES 621 200-950 cells/uL ABSOLUTE EOSINOPHILS 230 15-500 cells/uL ABSOLUTE BASOPHILS 60 0-200 cells/uL NEUTROPHILS 59.2 LYMPHOCYTES 30.1 MONOCYTES 7.3 EOSINOPHILS 2.7 BASOPHILS 0.7 VITAMIN B12/FOLATE, SERUM PA ADA (5016) Reviewed date:09/26/2024 03:13:21 PM Interpretation: Performing Lab:[place] [facility] [id number], [place] TdfiYF[address] Micheal Hilton Notes/Report: NON-FASTING; NON-FASTING; NON-FASTING; NON-FASTING; NON-FAST VITAMIN B12 723 263-2033 pg/mL FOLATE, SERUM 4.4 Reference Range Low: <3.4 Borderline: 3.4-5.4 Normal: >5.4 FERRITIN (457) Reviewed date:09/26/2024 03:13:22 PM Interpretation: Performing Lab:[place] [facility], [facility] ServicesRhhzAA[address] Micheal Hilton Notes/Report: NON-FASTING; NON-FASTING; NON-FASTING; NON-FASTING; NON-FAST FERRITIN 41 16-288 ng/mL VITAMIN D,25-OH,TOTAL,IA (17 306) Reviewed date:09/26/2024 03:13:22 PM Interpretation: Performing Lab:[place] [facility] [id number], [facility] ServicesDawhEH[address] Micheal Hilton Notes/Report: NON-FASTING; NON-FASTING; NON-FASTING; NON-FASTING; [...] D, (D2,D3), LC/MS/MS is recommended: order code [id number] (patients >2yrs). See Note 1 Note 1 For additional information, please refer to http://education.Fablic/faq/HET355 (This link is being provided for informational/ educational purposes only.) Reason For Referral Reason Home Health- PT, OT and Nursing Diagnosis 1 Multilevel degenerat miguel disc disease (M53.9) Diagnosis 2 Idiopathic periphera l neuropathy (G60.9) Diagnosis 3 Occipital stroke (I6 3.9) Diagnosis 4 Malignant hypertensi on (I10) Diagnosis 5 Ataxia (R27.0) Referral Organization [facility] Referring Provider First Name Yonny Referring Provider Last Name Tyler Referring Provider Speciality Internal M edicine Referred Provider Specialty Home Health General Notes sent to caretenders, amedysis and VNA Referral Priority Routine Reason EEG and MRI brain w/ o - ataxia Referral Organization [facility] Referring Provider First Name Yonny Referring Provider Last Name Tyler Referring Provider Speciality Internal edicine Referred Organization [facility] Referred Address [address] [place] [address], [place], [place],[address], Referred Provider Specialty Diagnostic R adiology General Notes Gisele Young 2024 02:33:23 PM >sent to [facility] and [facility] Referral Priority Routine Medications Medication SIG (Take, Route, Frequency, Duration) Notes Start Date End Date Status Multigen Folic 70-150-2-1 MG 1 tablet Orally Once a day Active QUEtiapine Fumarate 150 MG 1 tablet at b edtime Orally Once a day 08/22/2024 Active Furosemide 20 MG 1 tablet Orally Once a day Active Clopidogrel Bisulfate 75 MG 1 tablet Ora lly Once a day; Duration: 90 days 08/31/2024 Active Mirtazapine 15 MG 1 tablet at bedtime Orally Once a day; Duration: 90 days 07/11/2024 Active Tamsulosin HCl 0.4 MG 1 capsule Orally O nce a day Active Erythromycin 5 MG/GM 1 application into the lower eyelid of affected eye Ophthalmic Four times a day Active Losartan Potassium 50 MG 1 tablet Orally Once a day Active FLUoxetine HCl 20 mg TAKE 1 CAPSULE BY M OUTH ONCE A DAY; Duration: 30 Active Levothyroxine Sodium 75 MCG 1 tablet in the morning on an empty stomach Orally Once a day; Duration: 30 days 09/26/2024 Active Atorvastatin Calcium 40 MG 1 tablet Oral ly Once a day; Duration: 90 days Active Aspirin 81 MG 1 tablet Orally Once a day Active Baclofen 5 MG 1 tablet Orally twic e a day Active Immunizations Vaccine Route Administration Date Status [...] W/U Status Risk Notes Problem Anxiety disorder (629488861) Anxiety disorder, unspecified (F41.9) Active confirmed Problem Primary insomnia (7340482) Primary insomnia (F51.01) Active confirmed Problem Mucopurulent chronic bronchitis (58235409) Mucopurulent chronic bronchitis (J41.1) Active confirmed Problem Panlobular emphysema (7305747) Panlobular emphysema (J43.1) Active confirmed Problem Fibromyalgia (366258926) Fibromyalgia (M79.7) Active confirmed Problem Mixed incontinence (257273223) Mixed incontinence (N39.46) Active confirmed Problem Headache (46152768) Headache (R51) Active confirmed Problem Peripheral vascular disease (358633305) PVD (peripheral vascular disease) (I73.9) Active confirmed Problem Mixed anxiety and depressive disorder (216922330) Depression with anxiety (F41.8) Active confirmed Problem Paresthesia (50646097) Paresthesia (R20.2) Active confirmed Problem Tobacco use (870213591) Tobacco use disorder (Z72.0) Active confirmed Problem Hyperlipidaemia (52153043) Hyperlipidemia LDL goal <100 (E78.5) Active confirmed Problem Insomnia (077020955) Insomnia (G47.00) Active confirmed Problem Essential hypertension (58247545) Essential hypertension (I10) Active confirmed Problem Acute exacerbation of chronic obstructive airways disease (692293197) COPD exacerbation (J44.1) Active confirmed Problem Idiopathic peripheral neuropathy (12913797) Idiopathic peripheral neuropathy (G60.9) Active confirmed Problem Restless legs (58298794) RLS (restless legs syndrome) (G25.81) Active confirmed Problem Malaise (273229585) Malaise (R53.81) Active confirmed Problem Chronic pain (73656125) Other chronic pain (G89.29) Active confirmed Problem Liver enzymes abnormal (082832364) Abnormal liver enzymes (R74.8) Active confirmed Problem Acquired hypothyroidism (153880430) Acquired hypothyroidism (E03.9) Active confirmed Problem Recurrent falls (645138451) Frequent falls (R29.6) Active confirmed Problem New daily persistent headache (150605769645219) New daily persistent headache (G44.52) Active confirmed Problem Chronic insomnia (922051370) Chronic insomnia (F51.04) Active confirmed Problem Arthropathy (492853299) Arthropathy, multiple sites (M12.9) Active confirmed Problem Ataxia (06077408) Ataxia (R27.0) Active confirm ed Problem Mood disorder (06638960) Mood disorder (F39) Active confirmed Problem Delusional disorder (95872348) Delusional disorder (F22) Active confirmed Problem Degeneration of intervertebral disc (15666159) Multilevel degenerative disc disease (M53.9) Active confirmed Problem Fibromyalgia (843427027) Diffuse myofascial pain syndrome (M79.7) Active confirmed Problem Overactive urinary bladder (disorder) (611284763) OAB (overactive bladder) (N32.81) Active confirmed Problem Sequelae of cerebral infarction (811497283) CVA, old, disturbances of vision (I69.398) Active confirmed Problem Insomnia (541833210) Insomnia, unspecified type (G47.00) Active confirmed Problem Osteoarthritis (128886504) Osteoarthritis, unspecified osteoarthritis type, unspecified site (M19.90) Active confirmed Problem Localized, primary osteoarthritis of the pelvic region and thigh (267416837) Primary osteoarthritis of right hip (M16.11) Active confirmed Problem Hemiplegia of dominant side as late effect of cerebrovascular disease (609160220) Hemiparesis affecting right side as late effect of cerebrovascular accident (I69.351) Active confirmed Problem History of cerebrovascular accident without residual deficits (822530483) History of CVA (cerebrovascular accident) (Z86.73) Active confirmed Problem Transient altered mental status (396577519) Altered level of consciousness (R40.4) Active confirmed Problem Hypertensive emergency (777095208392561) Hypertensive emergency (I16.1) Active confirmed Problem Residual 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 accident (540015828) Other symptoms and signs involving cognitive functions following cerebral infarction (I69.318) Active confirmed Problem Late effects of cerebrovascular disease (040512357) History of CVA with residual deficit (I69.30) Active confirmed Problem Renal artery stenosis (982072208) Renal artery stenosis (I70.1) Active confirmed Problem Inflammatory and toxic neuropathy (624194010) Peripheral polyneuropathy (G62.9) Active confirmed Problem Functional visual loss (754414977) Vision loss (H54.7) Active confirmed Problem Moderate major depression, single episode (04997991) Current moderate episode of major depressive disorder, unspecified whether recurrent (F32.1) Active confirmed Problem Cerebral infarction (007811291) Occipital stroke (I63.9) Active confirmed Problem Ataxia due to and following cerebrovascular accident (disorder) (811790255542365) Ataxia due to and not concurrent with cerebrovascular accident (CVA) (I69.393) Active confirmed Problem Dysphagia as a late effect of cerebrovascular accident (disorder) (363414518) CVA, old, dysphagia (I69.391) Active confirmed Problem Aphasia as late effect of cerebrovascular accident (797408677) 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) Active confirmed Vital Signs Heart Rate 91 /min 11/29/2024 Temperature 98.3 degrees Fahrenheit 11/29/2024 Blood pressure diastolic 72 mm Hg 11/29/2024 Height 63.5 in 11/29/2024 Blood pressure systolic 113 mm Hg 11/29/2024 Weight 128.8 lbs 11/29/2024 BMI 22.46 kg/m2 11/29/2024 Encounters Encounter Location Date Provider Diagnosis [facility] [address] [place] [address] 05/28/2024 Provider Migration Essential hypertension I10 ; Diffuse myofascial pain syndrome M79.7 and Mood disorder F39 [facility] [address] [place] [address] 05/31/2024 Reanna Perdomo Chronic insomnia F51 .04 ; Essential hypertension I10 and History of CVA (cerebrovascular accident) Z86.73 [facility] [address] [place] [address] 06/27/2024 Yonny Scott Malignant hypertensi on I10 ; Occipital stroke I63.9 ; Acquired hypothyroidism E03.9 and Hospital discharge follow-up Z09 [facility] [address] [place] [address] 07/11/2024 Yonny Scott Pain in right hip M25.551 ; Pain in left hip M25.552 ; Multilevel degenerative disc disease M53.9 ; History of CVA (cerebrovascular accident) Z86.73 ; Current moderate episode of major depressive disorder, unspecified whether recurrent F32.1 ; Vision loss H54.7 ; Essential hypertension I10 and Routine medical exam Z00.00 [facility] [address] [address] 07/19/2024 Yonny Scott History of CVA (cerebrovascular accident) Z86.73 ; Mood disorder F39 ; Vision loss H54.7 and Essential hypertension I10 [facility] [address] [place] [address] 2024 Yonny Scott History of CVA (cerebrovascular accident) Z86.73 ; Panlobular emphysema J43.1 ; Primary insomnia F51.01 and Hospital discharge follow-up Z09 [facility] [address] [place] [address] 08/22/2024 Yonny Scott History of CVA (cerebrovascular accident) Z86.73 and Insomnia G47.00 [facility] [address] [place] [address] 09/21/2024 Yonny Scott Idiopathic periphera l neuropathy G60.9 ; Paresthesia R20.2 ; Mood disorder F39 and Insomnia, unspecified type G47.00 [facility] [address] [address] 10/05/2024 Yonny Scott History of CVA (cerebrovascular accident) Z86.73 ; Essential hypertension I10 ; Hemiparesis affecting right side as late effect of cerebrovascular accident I69.351 and Mood disorder F39 [facility] [place] [address] [address] 10/18/2024 Yonny Scott Essential hypertensi on I10 ; Acquired hypothyroidism E03.9 and Hemiparesis affecting right side as late effect of cerebrovascular accident I69.[address] [address] 11/15/2024 Reanna Perdomo Multiple closed fractures of facial bone, sequela S02.92XS ; Other [...] pain G89.29 and Hospital discharge follow-up Z09 [address] [address] 11/29/2024 Reanna Perdomo Multiple closed fractures of facial bone, sequela S02.92XS ; Other [...] disease) I73.9 and Other chronic pain G89.29 [facility] [place] [address] [address] 07/13/2024 Yonny Scott [facility] [address] [place] [address] 07/13/2024 Yonny Besson [facility] [address] [place] [address] 07/13/2024 Yonny Besson Ataxia R27.0 [facility] [address] [place] [address] 07/13/2024 Yonny Besson [facility] [address] [place] [address] 07/14/2024 Yonny Besson [facility] [place] [address] [place] [address] 07/15/2024 Reanna Monsivaisence [facility] [address] [place] [address] 07/19/2024 Yonny Besson [facility] [address] [place] [address] 07/19/2024 Yonny Besson [facility] [address] [place] [address] 08/01/2024 Yonny Besson [facility] [address] [place] [address] 08/04/2024 Yonny Besson [facility] [address] [place] [address] 08/09/2024 Yonny Besson [facility] [address] [place] [address] 08/31/2024 Yonny Besson Insomnia G47.00 ; Essential hypertension I10 ; Malignant hypertension I10 and Primary insomnia F51.01 [facility] [address] [place] [address] 09/02/2024 Yonny Besson [facility] [address] [place] [address] 09/14/2024 Yonny Besson [facility] [address] [place] [address] 09/26/2024 Yonny Besson [facility] [address] [facility] [address] [place] [address] 11/07/2024 Yonny Scott Assessments Encounter Date Diagnosis (ICD Code) Assessment Notes Treatment Notes Treatment Clinical Notes Section Notes 10/05/2024 History of CVA (cerebrovascular accident) (ICD-10 - Z86.73) Blood pressure under good control, remains on antiplatelet agent. No evidence of recurrence of stroke disease 10/05/2024 Essential hypertension (ICD-10 - I10) Blood pressure stable and well-controlled 11/29/2024 Other specified postprocedural states (ICD-10 - Z98.890) 11/29/2024 Multiple closed fractures of facial bone, sequela (ICD-10 - S02.92XS) Plan is to discharge home with sister at the end of the week. Recommend continue PT/OT. Hospital bed for assistance with mobility, edema, prevention of aspiration. Antibiotics and sinus precautions completed. Continue AC for stroke prevention and PVD management. FU with ENT recommended 11/15/2024 Other specified postprocedural states (ICD-10 - Z98.890) 11/15/2024 Multiple closed fractures of facial bone, sequela (ICD-10 - S02.92XS) Hospital documentation reviewed. Antibiotics and sinus precautions completed. Has resumed AC for stroke prevention and PVD management. FU with ENT recommended Will stop megace 10/18/2024 Essential hypertension (ICD-10 - I10) Pt [...] contributing to elevated blood pressure over baseline 09/21/2024 Paresthesia (ICD-10 - R20.2) We will [...] Does have neurology appointment on the with [facility] 07/19/2024 History of CVA (cerebrovascular accident) [...] window but does need eval for rehab. 07/13/2024 Ataxia (ICD-10 - R27.0) 07/11/2024 Pain in right hip (ICD-10 - M25.551) Check x-rays. Will see if PT coming to her house can help with exercises for back pain and hip pain. Will discuss x-ray results at next visit. 07/11/2024 Pain in left hip (ICD-10 - M25.552) 06/27/2024 Malignant hypertension (ICD-10 - I10) Blood [...] will be set up. I performed a [id number] evaluation on this patient today, and determined [...] Diffuse myofascial pain syndrome (ICD-10 - M79.7) 05/31/2024 History of CVA (cerebrovascular accident) (ICD-10 - Z86.73) 07/11/2024 Multilevel degenerative disc disease (ICD-10 - M53.9) 07/19/2024 Mood disorder (ICD-10 - F39) 06/27/2024 Acquired hypothyroidism (ICD-10 - E03.9) Back on levothyroxine. Will check TSH at appropriate time interval 2024 Primary insomnia (ICD-10 - F51.01) Restart [...] falls. Continue home observation from family members 11/15/2024 Personal history of (healed) traumatic fracture (ICD-10 - Z87.81) 11/29/2024 Personal history of (healed) traumatic fracture (ICD-10 - Z87.81) 10/05/2024 Hemiparesis affecting right side as late effect of cerebrovascular accident (ICD-10 - I69.351) Continuing to do home PT, using walker, no falls 10/05/2024 Mood disorder (ICD-10 - F39) Fluoxetine seems to have helped augment her Seroquel. No changes in plan at this point. Follow-up 6 weeks 11/29/2024 Physical debility (ICD-10 - R53.81) therapies as indicated 11/15/2024 Physical debility (ICD-10 - R53.81) PT, OT, ST to eval and treat as indicated. Was quite debilitated prior to this fall with fracture, rehab potential is guarded 09/21/2024 Insomnia, unspecified type (ICD-10 - G47.00) We will keep her on 100 mg of seroquel every night to help with her insomnia and night terrors she experiences. Sleep has been a long-term issue for her. Family reports that they are waiting to hear from [facility] about a sleep medicine referral 08/31/2024 Malignant hypertension (ICD-10 - I10) 06/27/2024 Hospital discharge follow-up (ICD-10 - Z09) Personally reviewed H&P and discharge summary as available from hospital discharge documentation. Reviewed pertinent labs and test done in the hospital. Personally reconciled medication. 07/11/2024 History of CVA (cerebrovascular accident) (ICD-10 - Z86.73) Blood pressure not at goal. Add amlodipine as noted below 07/19/2024 Vision loss (ICD-10 - H54.7) 2024 Hospital discharge follow-up (ICD-10 - Z09) [...] ED 08/31/2024 Primary insomnia (ICD-10 - F51.01) 11/15/2024 History of CVA with residual deficit (ICD-10 - I69.30) continue statin, DAPT 11/29/2024 History of CVA with residual deficit (ICD-10 - I69.30) continue statin, DAPT 11/29/2024 Mood disorder (ICD-10 - F39) continue seroquel, mirtazepine 11/15/2024 Mood disorder (ICD-10 - F39) continue seroquel, mirtazepine 07/11/2024 Vision loss (ICD-10 - H54.7) Refer to [facility] for evaluation 07/11/2024 Essential hypertension (ICD-10 - I10) 11/15/2024 Frequent falls (ICD-10 - R29.6) PT/OT following 11/29/2024 Frequent falls (ICD-10 - R29.6) PT/OT following 11/29/2024 Acquired hypothyroidism (ICD-10 - E03.9) continue daily replacement 11/15/2024 Acquired hypothyroidism (ICD-10 - E03.9) continue daily replacement 07/11/2024 Routine medical exam (ICD-10 - Z00.00) Diminished functional status, home health involved, fall risk currently mitigated by home health. Poor recall of 3 words. Son is healthcare surrogate. Positive depression diagnosis, screening not indicated. Wishes to hold off on colon screening till more stable from other perspectives here 11/15/2024 Chronic insomnia (ICD-10 - F51.04) seroquel, mirtazepine as noted 11/29/2024 Chronic insomnia (ICD-10 - F51.04) seroquel, mirtazepine as noted 11/29/2024 RLS (restless legs syndrome) (ICD-10 - G25.81) has PRN order for mirapex 11/15/2024 RLS (restless legs syndrome) (ICD-10 - G25.81) has PRN order for mirapex 11/29/2024 PVD (peripheral vascular disease) (ICD-10 - I73.9) continue statin, aspirin and refrain from smoking 11/15/2024 PVD (peripheral vascular disease) (ICD-10 - I73.9) continue statin, aspirin and refrain from smoking 11/15/2024 Other chronic pain (ICD-10 - G89.29) no pain complaints today, monitor 11/29/2024 Other chronic pain (ICD-10 - G89.29) no pain complaints today, monitor, continue baclofen post-stroke 11/15/2024 Hospital discharge follow-up (ICD-10 - Z09) FU labs ordered to monitor hepatorenal function and blood counts Plan Of Treatment Pending Test Test Name [...] 05/03/2015 H-TSH 05/03/2015 H-MISCELLANEOUS TEST 07/02/2015 C-CBC 01/10/2019 C-CBC 08/23/2018 C-CBC 06/29/2015 C-CBC 05/26/2019 C-CBC 06/19/2016 C-Sed Rate (ESR) 08/23/2018 C-BASIC METABOLIC 06/19/2016 C-CMP 05/26/2019 C-CMP 04/24/2020 C-CMP 04/11/2016 C-CMP 08/23/2018 C-CMP 01/10/2019 C-CMP 11/25/2017 C-CMP 06/29/2015 C-LIPID PANEL 11/25/2017 C-LIPID PANEL 01/10/2019 C-LIPID PANEL 08/23/2018 C-LIPID PANEL 04/24/2020 C-LIPID PANEL 05/26/2019 C-MAGNESIUM 11/25/2017 C-TSH 05/26/2019 C-TSH 08/23/2018 C-TSH 04/11/2016 C-TSH 01/10/2019 C-TSH 06/29/2015 C-HEPATITIS PANEL 06/08/2017 C-VITAMIN B12 06/29/2015 C-HGBA1C 04/26/2020 C-PTT 06/19/2016 C-PT/INR 06/19/2016 C-URINALYSIS 06/19/2016 C-URINALYSIS 06/29/2015 C-VITAMIN D, 25-HYDROXY 01/10/2019 C-VITAMIN D, 25-HYDROXY 08/23/2018 C-VITAMIN D, 25-HYDROXY 05/26/2019 C-DRUG SCREEN 12 PANEL 11/25/2017 C-DRUG SCREEN 12 PANEL 01/11/2018 C-DRUG SCREEN 12 PANEL 06/29/2015 12 PANEL DRUG SCREEN, URINE 06/11/2017 M-Complete Blood Count Auto Diff 021 M-Comprehensive Metabolic Panel 12/18/19 M-Hemoglobin A1C 12/17/2020 M-Magnesium 12/17/2020 M-Lipid Panel 12/17/2020 M-Thyroid Stimulating Hormone 12/17/2020 M-Vitamin B12 12/17/2020 M-Vitamin B12 11/02/2019 CT Scan : Chest, Lung Cancer Screening 0 09/21/2023 MRI BRAIN WO 07/13/2024 Future Test Test Name Order Date C-GGT 02/04/2017 C-CMP 02/04/2017 C-HEPATITIS PANEL 02/04/2017 Insurance Providers Payer Name Payer Address Payer Phone Subscriber Number Group Number Insured Name Patient Relationship to Insured Coverage Start Date Coverage End Date [employer] [address] [address] [place] [address] [phone] [id number] [place] Mata Self - patient is the [...] e joint disease Stroke 03/2020 stroke 11/2022 Fall with facial trauma 10/2024 Surgical History Surgery Date(Month/Year) infecton in lungs taken out 1996 tonsillectomy surgery on toes carpal tunnel tubal ligation gallbladder hole in right eardrum fixed cyst taken off of right breast rt hip replacement 07/28/2016 Hospitalization History Reason Date(Month/Year) [facility] - fall with facial trauma 10/2024 Stroke 07/19/2024 [facility] 05/2024 [facility]- stroke 11/2022 rt hip replacement 07/28/2016 shut down kidneys broken pelvic bone child x 2 times pneumonia x 8-10 times
--- OUTSIDE RECORDS SUMMARY | 2024-12-14 01:03 | XMS_ITS | Encounter Summary ---
Author Organization Healthcare Address [address] [place] [address] Care Team Providers Care Liner Worker Name Role Phone Aman Hernandez MD Primary Care Provider Encounter Details Date Type Department Care Team (Latest Contact Info) Description 11/12/2024 Travel Social History Tobacco Use Types Packs/Day [...] any time in the past 12 m [facility], were you homeless or living in a [facility]p (including now)? Patient unable to answer 10/31/2024 [facility] Utilities Answer Date Recorded In the [...] Vascular Lab [address] [place] [address] 12/15/2024 1:30 PM EDT Office Visit [facility] [address], 1st [place] [address] Raymond Nuñez MD [address] [facility] [address] [place] [address] 12/30/2024 1:00 PM EST Office Visit [facility] Otolaryngology [address], 3rd [place] [address] Yobani Benoit MD [address] [facility] [address] [place] [address] 05/24/2025 2:30 PM EDT Office Visit [facility] [address] [place] [address] Navya Woody MD [address] [facility] [address] [place] [address] 06/07/2025 2:00 PM EDT Consult [facility] [address], 1st [place] [address] Haseeb Dias MD [address] [facility] [address] [place] [address] documented as of this encounter [...] documented as of this encounter Care Teams Liner Worker Relationship Specialty Start Date End Date Aman Hernandez MD [address] [address] PCP - General Family Medicine 06/18/21 documented as of this encounter
--- OUTSIDE RECORDS SUMMARY | 2024-12-14 01:03 | XMS_ITS | Encounter Summary ---
Author Organization [facility] Address [address] [place] [address] Care Team Providers Care Bilingual Social Worker Name Role Phone Aman Hernandez MD Primary Care Provider Reason for Visit * Reason Onset Date Comments HCN - Patient Message 11/29/2024 Encounter Details Date Type Department Care Team (Late st Contact Info) Description 11/29/2024 Telephone [facility] [address] [place] [address] Aroldo Cam MD [address] [address] HCN - Patient Message Social History Tobacco Use Types Packs/Day Years [...] were you homeless or living in a long-term (including now)? 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 Son calling to check status of her being scheduled this week from referral placed 11/25 Best contact number: [phone] Optimal time of day to reach caller: ANYTIME Additional comments/information from caller: Note: Please do [...] EDT Appointment [facility] V[facility] Lab [address] [facility] [address] [place] [address] 12/15/2024 1:30 PM EDT Office Visit [facility] [address], 1st [place] [address] Raymond Nuñez MD [address] [place] [address] 12/30/2024 1:00 PM EST Office Visit [facility] Otolaryngology [address], 3rd [place] [address] Yobani Benoit MD [address] [place] [address] 05/24/2025 2:30 PM EDT Office Visit [facility] [address] [place] [address] Navya Woody MD [address] [place] [address] 06/07/2025 2:00 PM EDT Consult [place] [facility] [address], 1st [place] [address] Haseeb Dias MD [address] [place] [address] documented as of this encounter [...] documented as of this encounter Care Teams Bilingual Social Worker Relationship Specialty Start Date End Date Aman Hernandez MD 2[address] [facility] [address] [place] [address] PCP - General Family Medicine 06/18/21 documented as of this encounter
--- OUTSIDE RECORDS SUMMARY | 2024-12-14 01:03 | XMS_ITS | Encounter Summary ---
Author Organization Healthcare Address [address] [place] [address] Care Team Providers Care Hook Up Driver Name Role Phone Aman Hernandez MD Primary Care Provider Encounter Details Date Type Department Care Team (Late st Contact Info) Description 11/01/2024 Ophth Exam [facility] [address] [place] [address] Jovanni Lima MD [address] [place] [address] Social History Tobacco Use Types Packs/Day Years [...] any time in the past 12 m [facility], were you homeless or living in a penitentiary (including now)? Patient unable to answer 10/31/2024 [facility] Utilities Answer Date Recorded In the [...] Date of Assessment Author No Risk Indicated 11/04/2024 8:00 AM EDT Pushpa Mckeon RN * Question Answer Date of Assessment Author 1. Wish to be (Past 1 Month) No 11/04/2024 8:00 AM EDT Mariam Merida RN 2. Non-Specific Active Suicidal Thoughts (Past 1 Month) No 11/04/2024 8:00 AM EDT Mariam Merida RN 6. Suicidal Behavior (Lifetime) No 11/04/2024 8:00 AM EDT Mariam Merida RN documented as of this encounter Plan of Treatment Upcoming Encounters Date Type Department Care Team (Late st Contact Info) Description 12/15/2024 12:00 PM EDT Appointment [facility] [address] [place] [address] 12/15/2024 1:30 PM EDT Office [facility] [address], 1st [place] [address] Raymond Nuñez MD [address] [facility] [address] [place] [address] 12/30/2024 1:00 PM EST Office [facility] Otolaryngology [address], 3rd [place] [address] Yobani Benoit MD [address] [facility] [address] [place] [address] 05/24/2025 2:30 PM EDT Office Visit [facility] [address] [place] [address] Navya Woody MD [address] [facility] [address] [place] [address] 06/07/2025 2:00 PM EDT Consult [facility] [address], 1st [place] [address] Haseeb Dias MD [address] [facility] [address] [place] [address] documented as of this encounter [...] documented as of this encounter Care Teams Hook Up Driver Relationship Specialty Start Date End Date Aman Hernandez MD 2[address] [facility] 125 [place] [address] PCP - General Family Medicine 06/18/21 documented as of this encounter
--- OUTSIDE RECORDS SUMMARY | 2024-12-14 01:03 | XMS_ITS | Encounter Summary ---
Author Organization Healthcare Address [address] [place] [address] Care Team Providers Care International Trade Compliance Manager Name Role Phone Aman Hernandez MD Primary Care Provider Encounter Details Date Type Department Care Team (Latest Contact Info) Description 11/11/2024 Travel Social History Tobacco Use Types Packs/Day [...] any time in the past 12 m [facility], were you homeless or living in a longterm (including now)? Patient unable to answer 10/31/2024 [facility] Utilities Answer Date Recorded In [...] Month) No 025 8:00 PM EDT Jazmin Burton, LUANNE 2. Non-Specific Active Suici john Thoughts (Past 1 Month) No 11/11/2024 8:00 PM EDT Lexa Burton RN 6. Suicidal Behavior (Lifetime) No 8:00 PM EDT Jazmin Burton, LUANNE documented as of this encounter Plan of Treatment Upcoming Encounters Date Type Department Care Team (Late st Contact Info) Description 12/15/2024 12:00 PM EDT Appointment [facility] Vascular Lab [address] [facility] [address] [place] [address] 12/15/2024 1:30 PM EDT Office Visit [facility] [address], 1st [place] [address] Raymond Nuñez MD [address] [place] [address] 12/30/2024 1:00 PM EST Office Visit [facility] Otolaryngology [address], 3rd [place] [address] Yobani Benoit MD [address] [place] [address] 05/24/2025 2:30 PM EDT Office Visit [facility] [address] [place] [address] Navya Woody MD [address] [place] [address] 06/07/2025 2:00 PM EDT Consult [place] [facility] [address], 1st [place] [address] Haseeb Dias MD [address] [place] [address] documented as of this [...] documented as of this encounter Care Teams International Trade Compliance Manager Relationship Specialty Start Date End Date Aman Hernandez MD [address] [place] [address] PCP - General Family Medicine 06/18/21 documented as of this encounter
--- OUTSIDE RECORDS SUMMARY | 2024-12-14 01:03 | XMS_ITS | Encounter Summary ---
Author Organization Healthcare Address [address] [place] [address] Care Team Providers Care Slubber Machine Operator Name Role Phone Aman Hernandez MD Primary Care Provider Encounter Details Date Type Department Care Team (Late st Contact Info) Description 11/14/2024 Telephone [facility] [address], 3rd [place] [address] Vianey Mascorro Social History Tobacco Use Types Packs/Day Years [...] any time in the past 12 m [facility], were you homeless or living in a correction (including now)? Patient unable to answer 10/31/2024 [facility] Utilities Answer Date Recorded In [...] Vascular Lab [address] [place] [address] 12/15/2024 1:30 PM EDT Office Visit [facility] [address], 1st [place] [address] Raymond Nuñez MD [address] [place] [address] 12/30/2024 1:00 PM EST Office [facility] Otolaryngology [address], 3rd [place] [address] Yobani Benoit MD [address] [place] [address] 05/24/2025 2:30 PM EDT Office Visit [facility] [address] [place] [address] Navya Woody MD [address] [place] [address] 06/07/2025 2:00 PM EDT Consult [facility] [address], 1st [place] [address] Haseeb Dias MD [address] [place] [address] documented as of this encounter Visit Diagnoses [...] documented as of this encounter Care Teams Slubber Machine Operator Relationship Specialty Start Date End Date mAan Hernandez MD [address] [address] PCP - General Family Medicine 06/18/21 documented as of this encounter
--- OUTSIDE RECORDS SUMMARY | 2024-12-14 01:03 | XMS_ITS | Encounter Summary ---
Author Organization Healthcare Address [address] [place] [address] Care Team Providers Care Emergency Services Professional Name Role Phone Aman Hernandez MD Primary Care Provider Encounter Details Date Type Department Care Team (Late st Contact Info) Description 11/30/2024 Telephone [facility] [address] [place] [address] Monique Barnhart [address] [place] [address] Social History Tobacco Use Types Packs/Day [...] (including now)? Patient unable to answer 10/31/2024 [facility] Utilities Answer Date Recorded In the [...] * Telephone Encounter - Emelyn Cote - 11/30/2024 9:57 AM EDT LM on VM for the son to call me back to schedule referring appt. with Dr. Barnhart. documented in this encounter Plan of Treatment Upcoming Encounters Date Type Department Care Team (Late st Contact Info) Description 12/15/2024 12:00 PM EDT Appointment [facility] Vascular Lab [id number] [place] [address] 12/15/2024 1:30 PM EDT Office Visit [facility] [address], 1st [place] [address] Raymond Nuñez MD [address] [place] [address] 12/30/2024 1:00 PM EST Office Visit [facility] Otolaryngology [address], 3rd [place] [address] Yobani Benoit MD [address] [place] [address] 05/24/2025 2:30 PM EDT Office Visit [facility] [address] [place] [address] Navya Woody MD [address] [place] [address] 06/07/2025 2:00 PM EDT Consult [place] [facility] [address], 1st [place] [address] Haseeb Dias MD [address] [place] [address] documented as of this encounter [...] documented as of this encounter Care Teams Emergency Services Professional Relationship Specialty Start Date End Date Aman Hernandez MD [address] [place] [address] PCP - General Family Medicine 06/18/21 documented as of this encounter
--- OUTSIDE RECORDS SUMMARY | 2024-12-14 01:03 | XMS_ITS | Encounter Summary ---
Author Organization Healthcare Address [address] [place] [address] Care Team Providers Care Wirer Name Role Phone Aman Hernandez MD Primary Care Provider Reason for Referral * Imaging (Routine) - Closed Specialty Diagnoses / Procedures Referred By Zoe guevara Referred To Contact Radiology Diagnoses SDH (subdural hematoma) (CMS/HCC) Procedures CT Head wo IV Contrast Miranda Garcias PA [id number] [place] [address] Phone: tel: fax: Referral ID Status Reason Start Date Expiration Date Visits Re quested Visits Authorized [id number] Closed 11/17/2024 05/19/2026 1 1 Encounter Details Date Type Department Care Team (Late st Contact Info) Description 11/17/2024 Orders Only [place] [facility] [address], 1st [place] [address] Miranda Garcias PA [address] [facility] [address] [place] [address] SDH (subdural hematoma) (CMS/HCC) (Primary Dx) Social History Tobacco Use Types [...] any time in the past 12 m [facility], were you homeless or living in a senior care (including now)? Patient unable to answer 10/31/2024 [facility] Utilities Answer Date Recorded In the [...] Description 12/15/2024 12:00 PM EDT Appointment [facility] Vascular Lab [address] [facility] [address] [place] [address] 12/15/2024 1:30 PM EDT Office Visit [facility] [address], 1st [place] [address] Raymond Nuñez MD [address] [place] [address] 12/30/2024 1:00 PM EST Office Visit [facility] Otolaryngology [address], 3rd [place] [address] Yobani Benoit MD [address] [place] [address] 05/24/2025 2:30 PM EDT Office Visit [facility] [address] [place] [address] Navya Woody MD [address] [place] [address] 06/07/2025 2:00 PM EDT Consult [place] [facility] [address], 1[address] [place] [address] Haseeb Dias MD [address] [facility] [address] [place] [address] Pending Results Name Type Priority Associated Diagnoses Date /Time CT Head wo IV Contrast Imaging Routine SDH (subdural hematoma) (CMS/HCC) 12/13/2024 10:45 AM EDT Scheduled Orders Name Type Priority Associated Diagnoses Orde r Schedule CT Head wo IV Contrast Imaging Routine SDH (subdural hematoma) (CMS/HCC) Expected: 12/17/2024 (Approximate), Expires: 05/21/2026 documented as of this encounter Visit Diagnoses Diagnosis SDH (subdural hematoma) (CMS/HCC)- Primary Subdural hemorrhage documented in this encounter Additional [...] documented as of this encounter Care Teams Wirer Relationship Specialty Start Date End Date Aman Hernandez MD [address] [place] [address] PCP - General Family Medicine 06/18/21 documented as of this encounter
--- OUTSIDE RECORDS SUMMARY | 2024-12-14 01:03 | XMS_ITS | Encounter Summary ---
Author Organization Healthcare Address [address] [place] [address] Care Team Providers Care Mailing Machine Helper Name Role Phone Aman Hernandez MD Primary Care Provider Encounter Details Date Type Department Care Team (Latest Contact Info) Description 11/02/2024 Travel Social History Tobacco Use Types Packs/Day [...] (including now)? Patient unable to answer 10/31/2024 [facility] Utilities Answer Date Recorded In the [...] Date of Assessment Author No Risk Indicated 11/02/2024 8:00 PM EDT Phoenix Crump * Question Answer Date of Assessment Author 1. Wish to be (Past 1 Month) No 025 8:00 PM EDT Phoenix Crump 2. Non-Specific Active Suici john Thoughts (Past 1 Month) No 11/02/2024 8:00 PM EDT Phoenix Crump 6. Suicidal Behavior (Lifetime) No 8:00 PM EDT Phoenix Crump documented as of this encounter Plan of Treatment Upcoming Encounters Date Type Department Care Team (Late st Contact Info) Description 12/15/2024 12:00 PM EDT Appointment [facility] Vascular Lab [address] [facility] [address] [place] [address] 12/15/2024 1:30 PM EDT Office Visit [facility] [address], 1st [place] [address] Raymond Nuñez MD [address] [facility] [address] [place] [address] 12/30/2024 1:00 PM EST Office Visit [facility] Otolaryngology [address], 3rd [place] [address] Yobani Benoit MD [address] [place] [address] 05/24/2025 2:30 PM EDT Office Visit [facility] [address] [place] [address] Navya Woody MD [address] [place] [address] 06/07/2025 2:00 PM EDT Consult [facility] [address], 1st [place] [address] Haseeb Dias MD [address] [place] [address] documented as of this encounter [...] documented as of this encounter Care Teams Mailing Machine Helper Relationship Specialty Start Date End Date Aman Hernandez MD [address] [facility] [address] [place] [address] PCP - General Family Medicine 06/18/21 documented as of this encounter
--- OUTSIDE RECORDS SUMMARY | 2024-12-14 01:03 | XMS_ITS | Encounter Summary ---
Author Organization Healthcare Address [address] [place] [address] Care Team Providers Care Airconditioning Plant Operator Name Role Phone Aman Hernandez MD Primary Care Provider Encounter Details Date Type Department Care Team (Latest Contact Info) Description 11/01/2024 Travel Social History Tobacco Use Types Packs/Day [...] any time in the past 12 m [facility], were you homeless or living in a care home (including now)? Patient unable to answer 10/31/2024 [facility] Utilities Answer Date Recorded In [...] Vascular Lab [address] [place] [address] 12/15/2024 1:30 PM EDT Office Visit [facility] [address], 1st [place] [address] Raymond Nuñez MD [address] [facility] [address] [place] [address] 12/30/2024 1:00 PM EST Office Visit [facility] Otolaryngology [address], 3rd [place] [address] Yobani Benoit MD [address] [place] [address] 05/24/2025 2:30 PM EDT Office Visit [facility] [address] [place] [address] Navya Woody MD [address] [facility] [address] [place] [address] 06/07/2025 2:00 PM EDT Consult [facility] [address], 1st [place] [address] Haseeb Dias MD [address] [facility] [address] [place] [address] documented as of this encounter [...] documented as of this encounter Care Teams Airconditioning Plant Operator Relationship Specialty Start Date End Date Aman Hernandez MD [address] [facility] 125 [place] [address] PCP - General Family Medicine 06/18/21 documented as of this encounter
--- OUTSIDE RECORDS SUMMARY | 2024-12-14 01:05 | XMS_ITS | Encounter Summary ---
Author Organization Healthcare Address [address] [place] [address] Care Team Providers Care Back Panel Padder Name Role Phone Aman Hernandez MD Primary Care Provider Encounter Details Date Type Department Care Team (Late st Contact Info) Description 11/18/2024 Telephone [facility] [address], 3rd [place] [address] Vianey Mascorro Social History Tobacco [...] in the past 12 m [facility], were you homeless or living in a [place] [facility] [place] (including now)? Patient unable to answer 10/31/2024 [facility] Utilities Answer Date Recorded In [...] Vascular Lab [address] [place] [address] 12/15/2024 1:30 PM EDT Office Visit [facility] [address], 1[address] [place] [address] Raymond Nuñez MD [address] [place] [address] 12/30/2024 1:00 PM EST Office Visit [facility] Otolaryngology [address], 3rd [place] [address] Yobani Benoit MD [address] [place] [address] 05/24/2025 2:30 PM EDT Office Visit [facility] [address] [place] [address] Navya Woody MD [address] [place] [address] 06/07/2025 2:00 PM EDT Consult [facility] [address], 1[address] [place] [address] Haseeb Dias MD [address] [place] [address] documented as of this encounter Visit Diagnoses [...] documented as of this encounter Care Teams Back Panel Padder Relationship Specialty Start Date End Date Aman Hernandez MD [address] [address] PCP - General Family Medicine 06/18/21 documented as of this encounter
--- OUTSIDE RECORDS SUMMARY | 2024-12-14 01:05 | XMS_ITS | Encounter Summary ---
Author Organization Healthcare Address [address] [place] [address] Care Team Providers Care Air Bag Curer Name Role Phone Aman Hernandez MD Primary Care Provider Encounter Details Date Type Department Care Team (Late st Contact Info) Description 10/20/2022 Orders Only External Location [address] [place] [address] Nathaniel Gomez MD [address] [address] Social History Tobacco Use Types [...] EDT Appointment [facility] 800 [facility] [address] [place] [address] 12/15/2024 1:30 PM EDT Office Visit [facility] [address], 1st [place] [address] Raymond Nuñez MD [address] [place] [address] 12/30/2024 1:00 PM EST Office [facility] Otolaryngology [address], 3rd [place] [address] Yobani Benoit MD [address] [place] [address] 05/24/2025 2:30 PM EDT Office Visit [facility] [address] [place] [address] Navya Woody MD [address] [facility] [address] [place] [address] 06/07/2025 2:00 PM EDT Consult [facility] [address], 1st [place] [address] Haseeb Dias MD [address] [place] [address] documented as of this encounter Procedures Procedure Name Priority Date/Time Associated Diagnosis Comments CT ANGIO HEAD 10/20/2022 12:34 PM EDT documented in this encounter Results * CT Angio Head (10/20/2022 12:34 PM EDT) Anatomical Region Laterality Modality [place] Computed Tomogr aphy 10/20/2022 12:3 [...] documented as of this encounter Care Teams Air Bag Curer Relationship Specialty Start Date End Date Aman Hernandez MD [address] [place] [address] [address] PCP - General Family Medicine 06/18/21 documented as of this encounter
--- OUTSIDE RECORDS SUMMARY | 2024-12-14 01:05 | XMS_ITS | Encounter Summary ---
Author Organization Healthcare Address [address] [place] [address] Care Team Providers Care Drawing Machine Operator Name Role Phone Aman Hernandez MD Primary Care Provider Encounter Details Date Type Department Care Team (Late st Contact Info) Description 10/20/2022 Orders Only External Location 800 [place] [address] Nathaniel Gomez MD [address] [address] Social History Tobacco Use Types [...] EDT Appointment [facility] 800 [facility] [address] [place] [address] 12/15/2024 1:30 PM EDT Office Visit [facility] [address], 1st [place] [address] Raymond Nuñez MD [address] [place] [address] 12/30/2024 1:00 PM EST Office Visit [facility] Otolaryngology [address], 3rd [place] [address] Yobani Benoit MD [address] [place] [address] 05/24/2025 2:30 PM EDT Office Visit [facility] 110 [place] [address] Navya Woody MD [address] [facility] [address] [place] [address] 06/07/2025 2:00 PM EDT Consult [facility] [address], 1st [place] [address] Haseeb Dias MD [address] [place] [address] documented as of this encounter [...] documented as of this encounter Care Teams Drawing Machine Operator Relationship Specialty Start Date End Date Aman Hernandez MD [address] [address] PCP - General Family Medicine 06/18/21 documented as of this encounter
--- OUTSIDE RECORDS SUMMARY | 2024-12-14 01:05 | XMS_ITS | Encounter Summary ---
Author Organization [facility] Address [address] [place] [address] Care Team Providers Care Data Sciences Director Name Role Phone Aman Hernandez MD Primary Care Provider Encounter Details Date Type Department Care Team (Late st Contact Info) Description 11/18/2022 Orders Only External Location 800 [place] [address] [place]elf[place], [place] 1210 [facility] 36 [place], [place] [id number] Social History Tobacco Use Types Packs/Day Years [...] EDT Appointment [facility] 800 [facility] [address] [place] [address] 12/15/2024 1:30 PM EDT Office Visit [facility] [address], 1st [place] [address] Raymond Nuñez MD [address] [place] [address] 12/30/2024 1:00 PM EST Office Visit [facility] Otolaryngology [address], 3rd [place] [address] Yobani Benoit MD [address] [place] [address] 05/24/2025 2:30 PM EDT Office Visit [facility] 110 [place] [address] Navya Woody MD [address] [place] [address] 06/07/2025 2:00 PM EDT Consult [facility] [address], 1st [place] [address] Haseeb Dias MD [address] [facility] [address] [place] [address] documented as of this encounter Procedures Procedure Name Priority Date/Time Associated Diagnosis Comments CT ANGIO ABDOMEN 11/18/2022 1:08 PM EDT documented in this encounter Results * CT Angio Abdomen (11/18/2022 1:08 PM EDT) Anatomical Region Laterality Modality Abdomen Computed Tomogra phy 11/18/2022 1:08 PM EDT D[address] CT PROCEDURES Final Result documented in this encounter Visit Diagnoses Not on filedocumented in this encounter Additional Health Concerns Infection Onset 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
--- OUTSIDE RECORDS SUMMARY | 2024-12-14 01:05 | XMS_ITS | Encounter Summary ---
Author Organization [facility] Address [address] [place] [address] Care Team Providers Care Log Snaker Name Role Phone Donald Driscoll MD Primary Care Provider + [phone] Aman Hernandez MD Primary Care Provider Freedom Salazar Unavailable Unavailable Encounter Details Date Type Department Care Team (Late st Contact Info) Description 06/17/2021 Orders Only External Location 800 [place] [address] Aman Hernandez MD 2195 [facility] 125 [place] [address] Social History Tobacco Use Types [...] Info) Description 12/15/2024 12:00 PM EDT Appointment [facility] Lab [address] [address] 12/15/2024 1:30 PM EDT Office Visit [facility] [address], 1st [place] [address] Raymond Nuñez MD [address] [place] [address] 12/30/2024 1:00 PM EST Office Visit [facility] Otol[facility]ology [address], 3rd [place] [address] Yobani Benoit MD [address] [place] [address] 05/24/2025 2:30 PM EDT Office Visit [facility] [address] [place] [address] Navya Woody MD [address] [place] [address] 06/07/2025 2:00 PM EDT Consult [place] [facility] [address], 1st [place] [address] Haseeb Dias MD [address] [place] [address] documented as of this encounter [...] Noted Time PHQ-9 Depression Total Score: 22 06/10/ 022 9:12 AM EDT A fall risk assessment has been complete d for the patient 06/17/2021 12:58 PM EDT documented as of this encounter Care Teams Log Snaker Relationship Specialty Start Date End Date Donald Driscoll MD [address] [place] [address] PCP - General 07/06/20 06/17/21 Aman Hernandez MD [address] [place] [address] PCP - General Family Medicine 06/18/21 Freedom Salazar [facility] [address] [place] [address] Community Health Worker Automatic Fabric Cutter 07/08/2107/09 documented as of this encounter
--- OUTSIDE RECORDS SUMMARY | 2024-12-14 01:05 | XMS_ITS | Encounter Summary ---
Author Organization [facility] Address [address] [place] [address] Care Team Providers Care Nail Professional Name Role Phone Donald Driscoll MD Primary Care Provider + [phone] Aman Hernandez MD Primary Care Provider Freedom Salazar Unavailable Unavailable Encounter Details Date Type Department Care Team (Late st Contact Info) Description 06/17/2021 Orders Only External Location 800 [place] [address] Aman Hernandez MD 2195 [facility] 125 [place] [address] Social History Tobacco Use Types [...] Info) Description 12/15/2024 12:00 PM EDT Appointment [facility] Vascular Lab [address] [address] 12/15/2024 1:30 PM EDT Office [facility] [address], 1st [place] [address] Raymond Nuñez MD [address] [place] [address] 12/30/2024 1:00 PM EST Office [facility] Otolaryngology [address], 3rd [place] [address] Yobani Benoit MD [address] [place] [address] 05/24/2025 2:30 PM EDT Office Visit [facility] [address] [place] [address] Navya Woody MD [address] [place] [address] 06/07/2025 2:00 PM EDT Consult [place] [facility] [address], 1[address] [place] [address] Haseeb Dias MD [address] [place] [address] documented as of this encounter [...] documented as of this encounter Care Teams Nail Professional Relationship Specialty Start Date End Date Donald Driscoll MD [address] [place] [address] PCP - General 07/06/20 06/17/21 Aman Hernandez MD [address] [place] [address] PCP - General Family Medicine 06/18/[address] [facility] [address] [place] [address] Community Health Worker Laborer Poultry Hatchery 07/08/2107/09 documented as of this encounter
--- OUTSIDE RECORDS SUMMARY | 2024-12-14 01:05 | XMS_ITS | Encounter Summary ---
Author Organization Healthcare Address [address] [place] [address] Care Team Providers Care Laborer Chicken Farm Name Role Phone Aman Hernandez MD Primary Care Provider Encounter Details Date Type Department Care Team (Late st Contact Info) Description 10/20/2022 Orders Only External Location 800 [place] [address] Nathaniel Gomez MD [address] [address] Social History Tobacco Use Types [...] EDT Appointment [facility] 800 [facility] [address] [place] [address] 12/15/2024 1:30 PM EDT Office Visit [facility] [address], 1st [place] [address] Raymond Nuñez MD [address] [place] [address] 12/30/2024 1:00 PM EST Office Visit [facility] Otolaryngology [address], 3rd [place] [address] Yobani Benoit MD [address] [place] [address] 05/24/2025 2:30 PM EDT Office Visit [facility] 110 [place] [address] Navya Woody MD [address] [facility] [address] [place] [address] 06/07/2025 2:00 PM EDT Consult [facility] [place] [facility] [address], 1st [place] [address] Haseeb Dias MD [address] [place] [address] documented as of this encounter [...] documented as of this encounter Care Teams Laborer Chicken Farm Relationship Specialty Start Date End Date Aman Hernandez MD [address] [place] [address] [address] PCP - General Family Medicine 06/18/21 documented as of this encounter
--- OUTSIDE RECORDS SUMMARY | 2024-12-14 01:05 | XMS_ITS | Encounter Summary ---
Author Organization Healthcare Address [address] [place] [address] Care Team Providers Care Flight Radio Officer Name Role Phone Aman Hernandez MD Primary Care Provider Encounter Details Date Type Department Care Team (Late st Contact Info) Description 11/27/2022 Orders Only External Location 800 [place] [address] Provider, External Social History Tobacco Use Types [...] EDT Appointment [facility] 800 [facility] [address] [place] [address] 12/15/2024 1:30 PM EDT [facility] [address], 1st [place] [address] Raymond Nuñez MD [address] [place] [address] 12/30/2024 1:00 PM EST Office Visit [facility] Otolaryngology [address], 3rd [place] [address] Yobani Benoit MD [address] [place] [address] 05/24/2025 2:30 PM EDT Office Visit [facility] [address] [place] [address] Navya Woody MD [address] [place] [address] 06/07/2025 2:00 PM EDT Consult [facility] [address], 1st [place] [address] Haseeb Dias MD [address] [facility] [address] [place] [address] documented as of this encounter [...] Noted Time PHQ-9 Depression Total Score: 22 05/2 022 2:00 PM EDT A fall risk assessment has been complete d for the patient 07/08/2021 2:00 PM EDT documented as of this encounter Care Teams Flight Radio Officer Relationship Specialty Start Date End Date Aman Hernandez MD [address] [phone] PCP - General Family Medicine 06/18/21 documented as of this encounter
--- OUTSIDE RECORDS SUMMARY | 2024-12-14 01:05 | XMS_ITS | Clinical Summary ---
Author Organization [facility] Address [address] [place] [address] Care Team Providers Care Ambulance Operations Supervisor Name Role Phone Yonny Scott MD Primary Care Provider + [phone] Allergies Active Allergy Reactions Criticality Noted Date [...] Encounters Date Type Department Care Team Description 12/06/2024 Telephone [facility] 17[address] [facility] [address] [place] [address] Julissa Kenney APRN 12/06/2024 Telephone [facility] 1720 [facility] [address] [place] [address] Julissa Kenney, AMY from Last 3 Months Social History Tobacco Use Types Packs/Day Years Used Date Smoking Tobacco: Former Cigarettes 0.3 50 Passive Smoke Exposure: Past Smokeless Tobacco: Never Tobacco Cessation:Counseling Given: No Alcohol Use Standard Drinks/Week Comments Not Currently 21 (1 standard drink = 0.6 oz pu re alcohol) [facility] Utilities Answer Date Recorded In the past 12 months has Augment, E-Sign, or water Hall threatened to shut off services in your [...] GED or equivalent No 07/20/2024 Preferred Language Iranian 07/20/2024 PHQ-2 Answer Date Recorded Patient Health [...] 09/01/2024 2:47 PM EDT Plan of Treatment Health Maintenance Due Date Last Done Comments DXA SCAN 1958 COLOGUARD 08/09/2003 COLON CANCER SCREENING 5 JAY JAY Jolley SIGMOIDOSCOPY 08/09/2003 COLONOSCOPY 08/09/2003 COLORECTAL CANCER SCREENING 08/09/2003 CT COLONOGRAPHY 08/09/2003 FECAL OCCULT BLOOD TEST 08/09/2003 FIT Testing (1 year) 08/09/2003 MAMMOGRAM 06/30/2013 07/01/2011 ANNUAL WELLNESS VISIT 03/06/2017 ZOSTER VACCINE (2 of 2) 11/16/2023 09/21/2023 INFLUENZA VACCINE 09/23/2024 11/10/2022, , 02/01/2021, Additional history exists COVID-19 Vaccine (4 - 2024-2 6 season) 2024 02/03/2022, 02/01/2021, 06/06/2020, Additional history exists LIPID PANEL 07/20/2025 07/20/2024, 04/24, 05/22/2023, Additional history exists TDAP/TD VACCINES (3 - Td or Tdap) 10/30/2034 025, 07/16/2009 LUNG CANCER SCREENING Discontinued 10/20/2022, 023 Pneumococcal Vaccine 50+ Completed 023, 01/10/2019, 09/11/2015, Additional history exists HEPATITIS C SCREENING Completed 05/22/2023, 024 Medical Devices Implanted Type Area Certified Fraud Examiner Device Identifier Shelf Expiration Date Model / Serial / Lot Stent Implanted:Qty: 3 Stent Description:2 renal stents a nd 1 subclavian Stnt Carotid Xact Tpr 10 To 8x40mm - [id number] Implanted:Qty: 1 on 01/07/2023 by Pedro Dwyer MD at [facility] Stent YA VASCULAR 820 [id number] / / [id number] Procedures Procedure Name Priority Date/Time Associated Diagnosis Comments LIPID PANEL STAT 07/20/2024 9:27 AM EDT from Last 3 Months or Most Recently Relevant to Health Maintenance Results * Lipid Panel (07/20/2024 9:27 AM EDT) Total Cholesterol 112 0 - 200 mg/dL 07/20/2024 10:08 AM EDT [facility] Triglycerides 131 0 - 150 mg/dL 07/20/2024 10:08 AM EDT [facility] HDL Cholesterol 42 40 - 60 mg/dL 07/20/2024 10:08 AM EDT [facility] LDL Cholesterol 47 0 - 100 mg/dL 07/20/2024 10:08 AM EDT [facility] VLDL Cholesterol 23 5 - 40 mg/dL 07/20/2024 10:08 AM EDT [facility] LDL/HDL Ratio 1.04 07/20/2024 10:08 AM EDT [facility] Blood Venipuncture / Unknown 07/20/2024 9:27 AM EDT 07/20/2024 9:33 AM EDT Narrative [facility] - 07/20/2024 10:08 AM [...] calculated using the NIH LDL-C calculation. Bro Callumkristy [facility] BLOOD ORDERABLES Final [facility] Organization Address City/State/ZIP Co de Phone Number [facility]
[address] [place] [address], from Last 3 Months or Most Recently Relevant to Health Maintenance Insurance [facility] MEDICARE ADVANTAGE Member Subscriber Plan / Payer (Ef fective 2022-Present) Name:[place] Mata Relation to Subscriber:Self Name:[place] Mata Payer ID:[id number] (NAIC) Type:Medicare Replacement Address: [place] [id number] [facility] MEDICARE ADVANTAGE PPO Advance Directives Documents on File Type Date Recorded Patient B Operator Expl anation PATIENT ADVANCE DIRECTIVES - SCAN [...] Of Support Discussed With: Patient Care Teams Ambulance Operations Supervisor Relationship Specialty Start Date End Date Yonny Scott MD [facility] [facility] [address] [address] PCP - General Adolescent Medicine 07/19/24
--- OUTSIDE RECORDS SUMMARY | 2024-12-14 01:05 | XMS_ITS | Encounter Summary ---
Author Organization [facility] Address [address] [place] [address] Care Team Providers Care Eligibility And Occupancy Interviewer Name Role Phone Aman Hernandez MD Primary Care Provider Encounter Details Date Type Department Care Team (Late st Contact Info) Description 11/26/2022 Orders Only External Location 800 [place] [address] [place] Et[place], [place] 1210 [facility] 36 [place], [place] [id number] Social History Tobacco Use Types Packs/Day Years [...] EDT Appointment [facility] 800 [facility] [address] [place] [address] 12/15/2024 1:30 PM EDT Office Visit [facility] [address], 1st [place] [address] Raymond Nuñez MD [address] [place] [address] 12/30/2024 1:00 PM EST Office Visit [facility] Otolaryngology [address], 3rd [place] [address] Yobani Benoit MD [address] [place] [address] 05/24/2025 2:30 PM EDT Office Visit [facility] [address] [place] [address] Navya Woody MD [address] [facility] [address] [place] [address] 06/07/2025 2:00 PM EDT Consult [facility] [address], 1st [place] [address] Haseeb Dias MD [address] [place] [address] documented as of this encounter [...] documented as of this encounter Care Teams Eligibility And Occupancy Interviewer Relationship Specialty Start Date End Date Aman Hernandez MD [address] [address] PCP - General Family Medicine 06/18/21 documented as of this encounter
--- OUTSIDE RECORDS SUMMARY | 2024-12-14 01:05 | XMS_ITS | Encounter Summary ---
Author Organization Healthcare Address [address] [place] [address] Care Team Providers Care Chinese Instructor Name Role Phone Aman Hernandez MD Primary Care Provider Encounter Details Date Type Department Care Team (Late st Contact Info) Description 10/20/2022 Orders Only External Location 800 [place] [address] Nathaniel Gomez MD [address] [address] Social History Tobacco Use Types [...] EDT Appointment [facility] 800 [facility] [address] [place] [address] 12/15/2024 1:30 PM EDT Office Visit [facility] [address], 1st [place] [address] Raymond Nuñez MD [address] [place] [address] 12/30/2024 1:00 PM EST Office Visit [facility] Otolaryngology [address], 3rd [place] [address] Yobani Benoit MD [address] [place] [address] 05/24/2025 2:30 PM EDT Office Visit [facility] [address] [place] [address] Navya Woody MD [address] [facility] [address] [place] [address] 06/07/2025 2:00 PM EDT Consult [facility] [address], 1st [place] [address] Haseeb Dias MD [address] [place] [address] documented as of this [...] documented as of this encounter Care Teams Chinese Instructor Relationship Specialty Start Date End Date Aman Hernandez MD [address] [address] PCP - General Family Medicine 06/18/21 documented as of this encounter
--- OUTSIDE RECORDS SUMMARY | 2024-12-14 01:05 | XMS_ITS | Clinical Summary ---
Author Organization [facility] Address [address] [place] [address] Care Team Providers Care Scheduling Coordinator Name Role Phone Aman Hernandez MD Primary Care Provider Allergies Active Allergy Reactions Criticality Noted Date Comments Cephalosporins Other - please docum ent in the comment field Low 11/26/2022 Other Other - please docum ent in the comment field Low 06/19/2023 Vicryl sutures Penicillin G Unknown - Patient st ates they do not know rxn details,Other - please document in the comment field Low 05/09/2021 Penicillins Other - please docum ent in the comment field Low 04/14/2006 Tolerated augmentin 11/04/24 Medications pramipexole (Mirapex) 1 MG tablet Take 1 tablet by mouth 3 times a day as needed. Active amLODIPine (Norvasc) 5 MG tabletIndications: Essential (primary) hypertension Take 1 tablet (5 mg total) by mouth 1 (one) time each day. 30 tablet 5 06/11/19 22 Active Additional Information Patient not taking.Reported on 12/13/2024 Aspirin Low Dose 81 MG EC tablet Take 1 tablet by mouth daily. 12/02/19 23 Active atorvastatin (Lipitor) 40 MG tablet Take 1 tablet by mouth daily. 03/02/19 24 Active clopidogrel (Plavix) 75 MG tablet 1 tablet. 11/27/19 Active levothyroxine (Synthroid, Levoxyl) 75 MCG tablet Take 1 tablet by mouth daily. 04/14/19 Active mirtazapine (Remeron) 15 MG tablet Take 1 tablet by mouth nightly. Active oxybutynin XL (Ditropan-XL) 5 MG 24 hr tablet Take 1 tablet by mouth daily. 12/04/19 Active folic acid (Folvite) 800 MCG tablet Take 1 tablet by mouth daily. 09/27/19 Active FLUoxetine (PROzac) 20 MG capsule Take 1 capsule by mouth every morning. 09/22/19 Active QUEtiapine (SEROquel) 100 MG tablet Take 1.5 tablets by mouth nightly. Active bacitracin, 425g jar, 500 UNIT/GM ointment Apply to face BID 14 g 11/13/19 Active baclofen 5 MG tablet Take 1 tablet by mouth 2 times a day. 14 tablet 11/13/19 25 Active erythromycin (Romycin) 5 MG/GM ophthalmic ointment Apply 1 Application to both eyes every 8 hours. 3.5 g 11/13/19 25 Active hydrOXYzine pamoate (Vistaril) 25 MG capsule Take 1 capsule by mouth every 8 hours as needed for itching. 15 capsule 11/13/19 25 Active naloxone (Narcan) 4 mg/0.1 mL nasal spray 1. Give 1 spray in nostril for no/slow breathing or cannot wake after opioid use 2. Call 911 3. Repeat in other nostril if symptoms continue 1 each 11/13/19 Active Additional Information Patient not taking.Reported on 12/13/2024 Fe Asp Ypm-Ucjx-H-Thre-B1 2-FA (Multigen Folic) 70-150-2-1 MG tablet Take 1 tablet by mouth. Active furosemide (Lasix) 20 MG tablet 1 tablet. 12/03/19 Active HYDROcodone-acetam inophen (Monroe) 5-325 MG tablet Take 1 tablet by mouth every 6 hours as needed. 05/25/19 25 Active lisinopril 20 MG tablet Take 1 tablet by mouth daily. 10/19/19 25 Active losartan (Cozaar) 50 MG tablet Take 1 tablet by mouth. Active ondansetron ODT (Zofran-ODT) 4 MG disintegrating tablet 1 tablet. 12/03/19 Active acetaminophen (Tylenol) 500 MG tablet Take 1 tablet by mouth 4 times a day for 7 days. 28 tablet 11/13/19 25 butalbital-acetami nophen-caffeine 50-325-40 MG tablet Take 1 tablet by mouth every 6 hours as needed for headaches for up to 3 days. 12 tablet 11/13/19 25 megestrol (Megace) 40 MG/ML suspension Take 10 mL by mouth daily for 7 days. Shake well just before you measure a dose. Measure with a special dose-measuring spoon or medicine cup, not with a regular table spoon. If you do not have a dose-measuring device, ask your pharmacist for one. 70 mL 11/13/19 ondansetron ODT (Zofran-ODT) 4 MG disintegrating tablet Dissolve 1 tablet on the tongue every 6 hours as needed for nausea or vomiting for up to 5 days. 20 tablet 11/13/19 25 025 polyethylene glycol (Miralax) 17 g packet Take 17 g by mouth 2 times a day for 5 days. 10 packet 11/13/19 25 senna-docusate (Marley-Colace) 8.6-50 MG tablet Take 2 tablets by mouth 2 times a day for 5 days. 20 tablet 11/13/19 25 025 tamsulosin (Flomax) 0.4 MG 24 hr capsule Take 1 capsule by mouth 1 time each day with dinner. 30 capsule 11/13/19 25 025 oxyCODONE (Roxicodone) 5 MG immediate release tablet Take 1 tablet by mouth every 8 hours as needed for severe pain for up to 3 days. 9 tablet 11/13/19 25 025 Active Problems Problem Noted Date Diagnosed Date Nuclear sclerotic cataract of both eyes 12/02/19 Other localized visual field defect, bilateral 1 Bilateral profound visual loss 12/01/2024 Ectropion of left lower eyelid 12/01/2024 Homonymous hemianopia, right 12/01/2024 Vision loss 12/01/2024 Intraventricular hemorrhage 12/01/2024 Lagophthalmos of right lower eyelid 12/01/2024 Urinary retention 11/08/2024 Assessment & Plan (11/11/2024 2:40 PM EDT): On Flomax Assessment & Plan (11/10/2024 4:36 PM EDT): On Flomax Assessment & Plan (11/09/2024 5:57 PM EDT): On Flomax Assessment & Plan (11/08/2024 3:07 PM EDT): On Flomax Malnutrition 11/06/2024 Overview (11/06/2024): DHT w/TF Oral supplementation Assessment & Plan (11/11/2024 2:40 PM EDT): DHT w/TF 11/07: Discontinue TF and encourage oral intake 11/08: Poor appetite, started Megace and resumed cyclic tube feedings Oral supplementation PO intake improving per family. Hold off replacing DHT at this time. Re-evaluate 11/11 Assessment & Plan (11/10/2024 4:36 PM EDT): DHT w/TF 11/07: Discontinue TF and encourage oral intake 11/08: Poor appetite, started Megace and resumed cyclic tube feedings Oral supplementation PO intake improving per family. Hold off replacing DHT at this time. Re-evaluate 11/11 Assessment & Plan (11/09/2024 5:57 PM EDT): DHT w/TF 11/07: Discontinue TF and encourage oral intake 11/08: Poor appetite, started Megace and resumed cyclic tube feedings Oral supplementation Hold off replacing DHT per family request, re-eval tomorrow Assessment & Plan (11/08/2024 3:07 PM EDT): DHT w/TF 11/07: Discontinue TF and encourage oral intake 9/16: Poor appetite, started Megace and resumed cyclic tube feedings Oral supplementation Assessment & Plan (11/07/2024 3:03 PM EDT): DHT w/TF Discontinue TF and encourage oral intake Oral supplementation MRSA (methicillin resistant staph aureus) cultur e positive 11/06/2024 Overview (11/06/2024): Eye wound culture: MRSA Doxycycline Assessment & Plan (11/11/2024 2:40 PM EDT): Oral doxycyline Assessment & Plan (11/10/2024 4:36 PM EDT): Oral doxycyline Assessment & Plan (11/09/2024 5:57 PM EDT): Oral doxycyline Assessment & Plan (11/08/2024 3:07 PM EDT): Oral doxycyline Assessment & Plan (11/07/2024 3:03 PM EDT): Oral doxycyline Fracture of right orbital floor 11/03/2024 Assessment & Plan (11/11/2024 2:40 PM EDT): 11/01: OR with ENT for right orbital floor fracture repair ENT following ; Augmentin x 10 days (11/11); Sinus precautions x 2 weeks Erythromycin ointment TID Assessment & Plan (11/10/2024 4:36 PM EDT): 11/01: OR with ENT for right orbital floor fracture repair ENT following ; Augmentin x 10 days (11/11); Sinus precautions x 2 weeks Erythromycin ointment TID Assessment & Plan (11/09/2024 5:57 PM EDT): 11/01: OR with ENT for right orbital floor fracture repair ENT following ; Augmentin x 10 days (11/11); Sinus precautions x 2 weeks Erythromycin ointment TID Assessment & Plan (11/08/2024 3:07 PM EDT): 11/01: OR with ENT for right orbital floor fracture repair ENT following ; Augmentin x 10 days (11/11); Sinus precautions x 2 weeks Erythromycin ointment TID Assessment & Plan (11/07/2024 3:03 PM EDT): 11/01: OR with ENT for right orbital floor fracture repair ENT following ; Augmentin x7 days (11/11); Sinus precautions x 2 weeks Erythromycin ointment TID Assessment & Plan (11/06/2024 11:27 AM EDT): 11/01: OR with ENT for right orbital floor fracture repair ENT following ; Augmentin x7 days (11/11); Sinus precautions Assessment & Plan (11/05/2024 10:42 AM EDT): 11/01: OR with ENT for right orbital floor fracture repair ENT following Assessment & Plan (11/04/2024 1:15 PM EDT): 11/01: OR with ENT for right orbital floor fracture repair Assessment & Plan (11/04/2024 5:46 AM EDT): 11/01: OR with ENT for right orbital floor fracture repair Debility 11/02/2024 Assessment & Plan (11/11/2024 2:40 PM EDT): PT/OT following Recommend ERIKA Possible PM&R consult for 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: recommend Dantrolene 25mg BID Improved spasticity, however meds causing nausea; discontinue 11/07 PMR recs to trial baclofen Assessment & Plan (11/10/2024 4:36 PM EDT): PT/OT following Recommend ERIKA Possible PM&R consult for 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: recommend Dantrolene 25mg BID Improved spasticity, however meds causing nausea; discontinue 11/07 PMR recs to trial baclofen Assessment & Plan (11/09/2024 5:57 PM EDT): PT/OT following Recommend ERIKA Possible PM&R consult for 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: recommend Dantrolene 25mg BID Improved spasticity, however meds causing nausea; discontinue 11/07 PMR recs to trial baclofen Assessment & Plan (11/08/2024 3:07 PM EDT): PT/OT following Recommend ERIKA Possible PM&R consult for 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: recommend Dantrolene 25mg BID Improved spasticity, however meds causing nausea; discontinue 11/07 Assessment & Plan (11/07/2024 3:03 PM EDT): PT/OT following Recommend ERIKA Possible PM&R consult for 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: recommend Dantrolene 25mg BID Improved spasticity, however meds causing nausea; discontinue 11/07 Assessment & Plan (11/06/2024 11:27 AM EDT): PT/OT following Recommend ERIKA Possible PM&R consult for 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: recommend Dantrolene 25mg BID Assessment & Plan (11/05/2024 10:42 AM EDT): PT/OT following Recommend ERIKA Possible PM&R consult for 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: recommend Dantrolene 25mg BID Assessment & Plan (11/04/2024 1:15 PM EDT): PT/OT following Recommend ERIKA Possible PM&R consult for 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: recommend Dantrolene 25mg BID Assessment & Plan (11/04/2024 5:46 AM EDT): PT/OT following Recommend ERIKA Possible PM&R consult for 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: recommend Dantrolene 25mg BID Assessment & Plan (11/02/2024 2:58 PM EDT): PT/OT following Recommend ERIKA Possible PM&R consult for 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 Overweight (BMI 25.0-29.9) 10/31/2024 Assessment & Plan (11/11/2024 2:40 PM EDT): Could complicate hospitalization and mobility Assessment & Plan (11/10/2024 4:36 PM EDT): Could complicate hospitalization and mobility Assessment & Plan (11/09/2024 5:57 PM EDT): Could complicate hospitalization and mobility Assessment & Plan (11/08/2024 3:07 PM EDT): Could complicate hospitalization and mobility Assessment & Plan (11/07/2024 3:03 PM EDT): Could complicate hospitalization and mobility Assessment & Plan (11/06/2024 11:27 AM EDT): Could complicate hospitalization and mobility Assessment & Plan (11/05/2024 10:42 AM EDT): Could complicate hospitalization and mobility Assessment & Plan (11/04/2024 1:15 PM EDT): Could complicate hospitalization and mobility Assessment & Plan (11/04/2024 5:46 AM EDT): Could complicate hospitalization and mobility Assessment & Plan (11/02/2024 2:58 PM EDT): Could complicate hospitalization and mobility Assessment & Plan (11/01/2024 1:55 PM EDT): Could complicate hospitalization and mobility Assessment & Plan (10/31/2024 1:26 PM EDT): Could complicate hospitalization and mobility Zygomatic arch fracture 10/30/2024 Overview (11/06/2024): ENT consult 11/01: s/p ORIF R zygomatic arch fx and R orbital wall fx repair Augmentin through 11/11 Sinus precautions Assessment & Plan (11/11/2024 2:40 PM EDT): 11/01: OR with ENT for ORIF right Zygomatic arch fracture Recommend Ophtho reevaluation of vision loss/changes in addition to entrapment concern since postop Started on Augmentin for hardware in place after surgery Erythromycin optho ointment TID Sinus Precautions for 2 weeks total (11/13) Assessment & Plan (11/10/2024 4:36 PM EDT): 11/01: OR with ENT for ORIF right Zygomatic arch fracture Recommend Ophtho reevaluation of vision loss/changes in addition to entrapment concern since postop Started on Augmentin for hardware in place after surgery Erythromycin optho ointment TID Sinus Precautions for 2 weeks total (11/13) Assessment & Plan (11/09/2024 5:57 PM EDT): 11/01: OR with ENT for ORIF right Zygomatic arch fracture Recommend Ophtho reevaluation of vision loss/changes in addition to entrapment concern since postop Started on Augmentin for hardware in place after surgery Erythromycin optho ointment TID Sinus Precautions for 2 weeks total Assessment & Plan (11/08/2024 3:07 PM EDT): 11/01: OR with ENT for ORIF right Zygomatic arch fracture Recommend Ophtho reevaluation of vision loss/changes in addition to entrapment concern since postop Started on Augmentin for hardware in place after surgery Erythromycin optho ointment TID Sinus Precautions for 2 weeks total Assessment & Plan (11/07/2024 3:03 PM EDT): 11/01: OR with ENT for ORIF right Zygomatic arch fracture Recommend Ophtho reevaluation of vision loss/changes in addition to entrapment concern since postop Started on Augmentin for hardware in place after surgery Erythromycin optho ointment TID Sinus Precautions for 2 weeks total Assessment & Plan (11/06/2024 11:27 AM EDT): 11/01: OR with ENT for ORIF right Zygomatic arch fracture Assessment & Plan (11/05/2024 10:42 AM EDT): 11/01: OR with ENT for ORIF right Zygomatic arch fracture Assessment & Plan (11/04/2024 1:15 PM EDT): 11/01: OR with ENT for ORIF right Zygomatic arch fracture Assessment & Plan (11/04/2024 5:46 AM EDT): 11/01: OR with ENT for ORIF right Zygomatic arch fracture Assessment & Plan (11/02/2024 2:58 PM EDT): To OR with ENT on 11/01/24 Assessment & Plan (11/01/2024 1:55 PM EDT): To ER with ENT today Injury of globe of eye, right, initial encounter 10/30/2024 Overview (11/06/2024): Optho consult Lateral canthotomy at OSH Follow up 11/21 @ 12:25. Assessment & Plan (11/11/2024 2:40 PM EDT): S/p canthotomy at OSH Optho following- will reach out for recheck of vision when patient consistently able to participate in exam Sinus precautions x 2 weeks Erythromycin optho ointment TID Assessment & Plan (11/10/2024 4:36 PM EDT): S/p canthotomy at OSH Optho following- will reach out for recheck of vision when patient consistently able to participate in exam Sinus precautions x 2 weeks Erythromycin optho ointment TID Assessment & Plan (11/09/2024 5:57 PM EDT): S/p canthotomy at OSH Optho following- will reach out for recheck of vision when patient consistently able to participate in exam Sinus precautions x 2 weeks Erythromycin optho ointment TID Assessment & Plan (11/08/2024 3:07 PM EDT): S/p canthotomy at OSH Optho following- will reach out for recheck of vision when patient consistently able to participate in exam Sinus precautions x 2 weeks Erythromycin optho ointment TID Assessment & Plan (11/07/2024 3:03 PM EDT): S/p canthotomy at OSH Optho following- will reach out for recheck of vision when patient consistently able to participate in exam Sinus precautions x 2 weeks Erythromycin optho ointment TID Assessment & Plan (11/06/2024 11:27 AM EDT): S/p canthotomy at OSH Optho following- will reach out for recheck of vision when patient consistently able to participate in exam Assessment & Plan (11/05/2024 10:42 AM EDT): S/p canthotomy at OSH Optho following- will reach out for recheck of vision when patient consistently able to participate in exam Assessment & Plan (11/04/2024 1:15 PM EDT): S/p canthotomy at OSH Optho following- will reach out for recheck of vision when patient consistently able to participate in exam Assessment & Plan (11/04/2024 5:46 AM EDT): S/p canthotomy at OSH Optho following- will reach out for recheck of vision when patient consistently able to participate in exam Assessment & Plan (11/02/2024 2:58 PM EDT): S/p canthotomy at OSH Optho following Assessment & Plan (11/01/2024 1:55 PM EDT): S/p canthotomy at OSH OPH reassessing today Assessment & Plan (10/31/2024 1:26 PM EDT): S/p canthotomy at OSH OPH consult Assessment & Plan (10/30/2024 8:50 AM EDT): Ophthalmology did not recommend acute intervention at this time when consulted in the emergency department Fall 10/30/2024 Assessment & Plan (11/11/2024 2:40 PM EDT): Admit SGT ICU [x] Tertiary 9/8 Transfer to progressive care 11/04 Assessment & Plan (11/10/2024 4:36 PM EDT): Admit SGT ICU [x] Tertiary 9/8 Transfer to progressive care 11/04 Assessment & Plan (11/09/2024 5:57 PM EDT): Admit SGT ICU [x] Tertiary 9/8 Transfer to progressive care 11/04 Assessment & Plan (11/08/2024 3:07 PM EDT): Admit SGT ICU [x] Tertiary 9/8 Transfer to progressive care 11/04 Assessment & Plan (11/07/2024 3:03 PM EDT): Admit SGT ICU [x] Tertiary 9/8 Assessment & Plan (11/06/2024 11:27 AM EDT): Admit SGT ICU [x] Tertiary 9/8 Assessment & Plan (11/05/2024 10:42 AM EDT): Admit SGT ICU [x] Tertiary 9/8 Assessment & Plan (11/04/2024 1:15 PM EDT): Admit SGT ICU [x] Tertiary 9/8 [] Audit-C [] Patient will need ITSS evaluation when appropriate Assessment & Plan (11/04/2024 5:46 AM EDT): Admit SGT ICU [x] Tertiary 9/8 [] Audit-C [] Patient will need ITSS evaluation when appropriate Assessment & Plan (11/02/2024 2:58 PM EDT): Admit SGT ICU [x] Tertiary 9/ [] Audit-C [] Patient will need ITSS evaluation when appropriate Assessment & Plan (11/01/2024 1:55 PM EDT): Admit SGT ICU [x] Tertiary 9/8 [] Audit-C [] Patient will need ITSS evaluation when appropriate Assessment & Plan (10/31/2024 1:26 PM EDT): Admit SGT ICU [x] Tertiary 9 [] Audit-C [] Patient will need ITSS evaluation when appropriate TBI (traumatic brain injury) 10/30/2024 Assessment & Plan (11/11/2024 2:40 PM EDT): SAH, IVH NSGY consult DDAVP given at OSH PMR following Assessment & Plan (11/10/2024 4:36 PM EDT): SAH, IVH NSGY consult DDAVP given at OSH PMR following Assessment & Plan (11/09/2024 5:57 PM EDT): SAH, IVH NSGY consult DDAVP given at OSH PMR following Assessment & Plan (11/08/2024 3:07 PM EDT): SAH, IVH NSGY consult DDAVP given at OSH PMR following Assessment & Plan (11/07/2024 3:03 PM EDT): SAH, IVH NSGY consult DDAVP given at OSH PMR consult for Thursday Assessment & Plan (11/06/2024 11:27 AM EDT): SAH, IVH NSGY consult DDAVP given at OSH PMR consult for Thursday Assessment & Plan (11/05/2024 10:42 AM EDT): SAH, IVH NSGY consult DDAVP given at OSH PMR consult for Thursday Assessment & Plan (11/04/2024 1:15 PM EDT): SAH, IVH NSGY consult DDAVP given at OSH Assessment & Plan (11/04/2024 5:46 AM EDT): SAH, IVH NSGY consult DDAVP given at OSH Assessment & Plan (11/02/2024 2:58 PM EDT): SAH, IVH NSGY consult DDAVP given at OSH Assessment & Plan (11/01/2024 1:55 PM EDT): SAH, IVH NSGY consult DDAVP given at OSH Assessment & Plan (10/31/2024 1:26 PM EDT): SAH, IVH NSGY consult DDAVP given at OSH Carotid stenosis 10/30/2024 Assessment & Plan (11/11/2024 2:40 PM EDT): 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 LAY OUT WORKER and MCA stenosis Resume home meds as appropriate in 2 weeks dt tSAH and IVH Assessment & Plan (11/10/2024 4:36 PM EDT): WELD LAY OUT WORKER and MCA stenosis Resume home meds as appropriate in 2 weeks dt tSAH and IVH Assessment & Plan (11/09/2024 5:57 PM EDT): WELD LAY OUT WORKER and MCA stenosis Resume home meds as appropriate in 2 weeks dt tSAH and IVH Assessment & Plan (11/08/2024 3:07 PM EDT): WELD LAY OUT WORKER and MCA stenosis Resume home meds as appropriate in 2 weeks dt tSAH and IVH Assessment & Plan (11/07/2024 3:03 PM EDT): WELD LAY OUT WORKER and MCA stenosis Resume home meds as appropriate in 2 weeks dt tSAH and IVH Assessment & Plan (11/06/2024 11:27 AM EDT): Recruiting Specialist and mca stenosis Resume home meds as appropriate Assessment & Plan (11/05/2024 10:42 AM EDT): Recruiting Specialist and mca stenosis Resume home meds as appropriate Assessment & Plan (11/04/2024 1:15 PM EDT): Recruiting Specialist and mca stenosis Resume home meds as appropriate Assessment & Plan (11/04/2024 5:46 AM EDT): Recruiting Specialist and mca stenosis Resume home meds as appropriate Assessment & Plan (11/02/2024 2:58 PM EDT): Recruiting Specialist and mca stenosis Resume home meds as appropriate Assessment & Plan (11/01/2024 1:55 PM EDT): Recruiting Specialist and mca stenosis Resume home meds as appropriate Assessment & Plan (10/31/2024 1:26 PM EDT): Recruiting Specialist and mca stenosis Resume home meds as appropriate ABLA (acute blood loss anemia) 10/30/2024 Assessment & Plan (11/11/2024 2:40 PM EDT): H&H stable Assessment & Plan (11/10/2024 4:36 PM EDT): H&H stable Assessment & Plan (11/09/2024 5:57 PM EDT): H&H stable Assessment & Plan (11/08/2024 3:07 PM EDT): Recheck hemogram and transfuse as necessary Assessment & Plan (11/07/2024 3:03 PM EDT): Recheck hemogram and transfuse as necessary Assessment & Plan (11/06/2024 11:27 AM EDT): Recheck hemogram and transfuse as necessary Assessment & Plan (11/05/2024 10:42 AM EDT): Recheck hemogram and transfuse as necessary Assessment & Plan (11/04/2024 1:15 PM EDT): Recheck hemogram and transfuse as necessary Assessment & Plan (11/04/2024 5:46 AM EDT): Recheck hemogram and transfuse as necessary Assessment & Plan (11/02/2024 2:58 PM EDT): Recheck hemogram and transfuse as necessary Assessment & Plan (11/01/2024 1:55 PM EDT): Recheck hemogram and transfuse as necessary Assessment & Plan (10/31/2024 1:26 PM EDT): Recheck hemogram and transfuse as necessary Hyperglycemia 10/30/2024 Assessment & Plan (11/11/2024 2:40 PM EDT): Likely reactive to trauma, recheck and treat as necessary Did not require insulin while in ICU Assessment & Plan (11/10/2024 4:36 PM EDT): Likely reactive to trauma, recheck and treat as necessary Did not require insulin while in ICU Assessment & Plan (11/09/2024 5:57 PM EDT): Likely reactive to trauma, recheck and treat as necessary Did not require insulin while in ICU Assessment & Plan (11/08/2024 3:07 PM EDT): Likely reactive to trauma, recheck and treat as necessary Did not require insulin while in ICU Assessment & Plan (11/07/2024 3:03 PM EDT): Likely reactive to trauma, recheck and treat as necessary Did not require insulin while in ICU Assessment & Plan (11/06/2024 11:27 AM EDT): Likely reactive to trauma, recheck and treat as necessary Did not require insulin while in ICU Assessment & Plan (11/05/2024 10:42 AM EDT): Likely reactive to trauma, recheck and treat as necessary Did not require insulin while in ICU Assessment & Plan (11/04/2024 1:15 PM EDT): Likely reactive to trauma, recheck and treat as necessary Did not require insulin while in ICU Assessment & Plan (11/04/2024 5:46 AM EDT): Likely reactive to trauma, recheck and treat as necessary Assessment & Plan (11/02/2024 2:58 PM EDT): Likely reactive to trauma, recheck and treat as necessary Assessment & Plan (11/01/2024 1:55 PM EDT): Likely reactive to trauma, recheck and treat as necessary Assessment & Plan (10/31/2024 1:26 PM EDT): Likely reactive to trauma, recheck and treat as necessary Acute respiratory failure with hypoxia Assessment & Plan (11/11/2024 2:40 PM EDT): Extubated 10/31/24 Placed on HFNC on 11/01/24 2L NC Stable on RA Assessment & Plan (11/10/2024 4:36 PM EDT): Extubated 10/31/24 Placed on HFNC on 11/01/24 2L NC Stable on RA Assessment & Plan (11/09/2024 5:57 PM EDT): Extubated 10/31/24 Placed on HFNC on 11/01/24 2L NC Stable on RA Assessment & Plan (11/08/2024 3:07 PM EDT): Extubated 10/31/24 Placed on HFNC on 11/01/24 2L NC Stable on RA Assessment & Plan (11/07/2024 3:03 PM EDT): Extubated 10/31/24 Placed on HFNC on 11/01/24 2L NC Stable on RA Assessment & Plan (11/06/2024 11:27 AM EDT): Extubated 10/31/24 Placed on HFNC on 11/01/24 2L NC Assessment & Plan (11/05/2024 10:42 AM EDT): Extubated 10/31/24 Placed on HFNC on 11/01/24 2L NC Assessment & Plan (11/04/2024 1:15 PM EDT): Extubated 10/31/24 Placed on HFNC on 11/01/24 2L NC Assessment & Plan (11/04/2024 5:46 AM EDT): Extubated 10/31/24 Placed on HFNC on 11/01/24 4L NC Assessment & Plan (11/02/2024 2:58 PM EDT): Extubated 10/31/24 Placed on HFNC on 11/01/24 2L NC Assessment & Plan (11/01/2024 1:55 PM EDT): Extubated 10/31/24 2L NC Assessment & Plan (10/31/2024 1:26 PM EDT): Wean vent as able Lactic acidosis 10/30/2024 Assessment & Plan (11/11/2024 2:40 PM EDT): Resolved IVF resuscitation and recheck as necessary Assessment & Plan (11/10/2024 4:36 PM EDT): Resolved IVF resuscitation and recheck as necessary Assessment & Plan (11/09/2024 5:57 PM EDT): IVF resuscitation and recheck as necessary Assessment & Plan (11/08/2024 3:07 PM EDT): IVF resuscitation and recheck as necessary Assessment & Plan (11/07/2024 3:03 PM EDT): IVF resuscitation and recheck as necessary Assessment & Plan (11/06/2024 11:27 AM EDT): IVF resuscitation and recheck as necessary Assessment & Plan (11/05/2024 10:42 AM EDT): IVF resuscitation and recheck as necessary Assessment & Plan (11/04/2024 1:15 PM EDT): IVF resuscitation and recheck as necessary Assessment & Plan (11/04/2024 5:46 AM EDT): IVF resuscitation and recheck as necessary Assessment & Plan (11/02/2024 2:58 PM EDT): IVF resuscitation and recheck as necessary Assessment & Plan (11/01/2024 1:55 PM EDT): IVF resuscitation and recheck as necessary Assessment & Plan (10/31/2024 1:26 PM EDT): IVF resuscitation and recheck as necessary Electrolyte abnormality 10/30/2024 Assessment & Plan (11/11/2024 2:40 PM EDT): Hypomagnesemia (POA) Hypocalcemia (POA) Replace/treat and recheck as necessary Assessment & Plan (11/10/2024 4:36 PM EDT): Hypomagnesemia (POA) Hypocalcemia (POA) Replace/treat and recheck as necessary Assessment & Plan (11/09/2024 5:57 PM EDT): Hypomagnesemia (POA) Hypocalcemia (POA) Replace/treat and recheck as necessary Assessment & Plan (11/08/2024 3:07 PM EDT): Hypomagnesemia (POA) Hypocalcemia (POA) Replace/treat and recheck as necessary Assessment & Plan (11/07/2024 3:03 PM EDT): Hypomagnesemia (POA) Hypocalcemia (POA) Replace/treat and recheck as necessary Assessment & Plan (11/06/2024 11:27 AM EDT): Hypomagnesemia (POA) Hypocalcemia (POA) Replace/treat and recheck as necessary Assessment & Plan (11/05/2024 10:42 AM EDT): Hypomagnesemia (POA) Hypocalcemia (POA) Replace/treat and recheck as necessary Assessment & Plan (11/04/2024 1:15 PM EDT): Hypomagnesemia (POA) Hypocalcemia (POA) Replace/treat and recheck as necessary Assessment & Plan (11/04/2024 5:46 AM EDT): Hypomagnesemia (POA) Hypocalcemia (POA) Replace/treat and recheck as necessary Assessment & Plan (11/02/2024 2:58 PM EDT): Hypomagnesemia (POA) Hypocalcemia (POA) Replace/treat and recheck as necessary Assessment & Plan (11/01/2024 1:55 PM EDT): Hypomagnesemia (POA) Hypocalcemia (POA) Replace/treat and recheck as necessary Assessment & Plan (10/31/2024 1:26 PM EDT): Hypomagnesemia (POA) Hypocalcemia (POA) Replace/treat and recheck as necessary MELISSA (acute kidney injury) 10/30/2024 Assessment & Plan (11/11/2024 2:40 PM EDT): Avoid nephrotoxic agents as able and renally dose medications IVF resuscitation as needed Assessment & Plan (11/10/2024 4:36 PM EDT): Avoid nephrotoxic agents as able and renally dose medications IVF resuscitation as needed Assessment & Plan (11/09/2024 5:57 PM EDT): Avoid nephrotoxic agents as able and renally dose medications IVF resuscitation as needed Assessment & Plan (11/08/2024 3:07 PM EDT): Avoid nephrotoxic agents as able and renally dose medications IVF resuscitation as needed Assessment & Plan (11/07/2024 3:03 PM EDT): Avoid nephrotoxic agents as able and renally dose medications IVF resuscitation as needed Assessment & Plan (11/06/2024 11:27 AM EDT): Avoid nephrotoxic agents as able and renally dose medications IVF resuscitation as needed Assessment & Plan (11/05/2024 10:42 AM EDT): Avoid nephrotoxic agents as able and renally dose medications IVF resuscitation as needed Assessment & Plan (11/04/2024 1:15 PM EDT): Avoid nephrotoxic agents as able and renally dose medications IVF resuscitation as needed Assessment & Plan (11/04/2024 5:46 AM EDT): Avoid nephrotoxic agents as able and renally dose medications IVF resuscitation as needed Assessment & Plan (11/02/2024 2:58 PM EDT): Avoid nephrotoxic agents as able and renally dose medications IVF resuscitation as needed Assessment & Plan (11/01/2024 1:55 PM EDT): Avoid nephrotoxic agents as able and renally dose medications IVF resuscitation as needed Assessment & Plan (10/31/2024 1:26 PM EDT): Avoid nephrotoxic agents as able and renally dose medications IVF resuscitation as needed Hypothyroidism 10/30/2024 Assessment & Plan (11/11/2024 2:40 PM EDT): Home synthroid resumed Assessment & Plan (11/10/2024 4:36 PM EDT): Home synthroid resumed Assessment & Plan (11/09/2024 5:57 PM EDT): Home synthroid resumed Assessment & Plan (11/08/2024 3:07 PM EDT): Home synthroid resumed Assessment & Plan (11/07/2024 3:03 PM EDT): Resume home meds as appropriate Assessment & Plan (11/06/2024 11:27 AM EDT): Resume home meds as appropriate Assessment & Plan (11/05/2024 10:42 AM EDT): Resume home meds as appropriate Assessment & Plan (11/04/2024 1:15 PM EDT): Resume home meds as appropriate Assessment & Plan (11/04/2024 5:46 AM EDT): Resume home meds as appropriate Assessment & Plan (11/02/2024 2:58 PM EDT): Resume home meds as appropriate Assessment & Plan (11/01/2024 1:55 PM EDT): Resume home meds as appropriate Assessment & Plan (10/31/2024 1:26 PM EDT): Resume home meds as appropriate Hypertension 10/30/2024 Assessment & Plan (11/11/2024 2:40 PM EDT): Home amlodipine resumed Assessment & Plan (11/10/2024 4:36 PM EDT): Home amlodipine resumed Assessment & Plan (11/09/2024 5:57 PM EDT): Home amlodipine resumed Assessment & Plan (11/08/2024 3:07 PM EDT): Home amlodipine resumed Assessment & Plan (11/07/2024 3:03 PM EDT): Resume home meds as appropriate Assessment & Plan (11/06/2024 11:27 AM EDT): Resume home meds as appropriate Assessment & Plan (11/05/2024 10:42 AM EDT): Resume home meds as appropriate Assessment & Plan (11/04/2024 1:15 PM EDT): Resume home meds as appropriate Assessment & Plan (11/04/2024 5:46 AM EDT): Resume home meds as appropriate Assessment & Plan (11/02/2024 2:58 PM EDT): Resume home meds as appropriate Assessment & Plan (11/01/2024 1:55 PM EDT): Resume home meds as appropriate Assessment & Plan (10/31/2024 1:26 PM EDT): Resume home meds as appropriate Hyperlipidemia 10/30/2024 Assessment & Plan (11/11/2024 2:40 PM EDT): Home Atorvastatin resumed Assessment & Plan (11/10/2024 4:36 PM EDT): Home Atorvastatin resumed Assessment & Plan (11/09/2024 5:57 PM EDT): Home Atorvastatin resumed Assessment & Plan (11/08/2024 3:07 PM EDT): Home Atorvastatin resumed Assessment & Plan (11/07/2024 3:03 PM EDT): Resume home meds as appropriate Assessment & Plan (11/06/2024 11:27 AM EDT): Resume home meds as appropriate Assessment & Plan (11/05/2024 10:42 AM EDT): Resume home meds as appropriate Assessment & Plan (11/04/2024 1:15 PM EDT): Resume home meds as appropriate Assessment & Plan (11/04/2024 5:46 AM EDT): Resume home meds as appropriate Assessment & Plan (11/02/2024 2:58 PM EDT): Resume home meds as appropriate Assessment & Plan (11/01/2024 1:55 PM EDT): Resume home meds as appropriate Assessment & Plan (10/31/2024 1:26 PM EDT): Resume home meds as appropriate CVA (cerebral vascular accident) 10/30/2024 Assessment & Plan (11/11/2024 2:40 PM EDT): PMH CVA and R sided deficits Resume home meds as appropriate in 2 weeks due to tSAH and IVH Assessment & Plan (11/10/2024 4:36 PM EDT): PMH CVA and R sided deficits Resume home meds as appropriate in 2 weeks due to tSAH and IVH Assessment & Plan (11/09/2024 5:57 PM EDT): PMH CVA and R sided deficits Resume home meds as appropriate in 2 weeks due to tSAH and IVH Assessment & Plan (11/08/2024 3:07 PM EDT): PMH CVA and R sided deficits Resume home meds as appropriate in 2 weeks due to tSAH and IVH Assessment & Plan (11/07/2024 3:03 PM EDT): PMH CVA and R sided deficits Resume home meds as appropriate in 2 weeks due to tSAH and IVH Assessment & Plan (11/06/2024 11:27 AM EDT): PMH CVA and R sided deficits Resume home meds as appropriate Assessment & Plan (11/05/2024 10:42 AM EDT): PMH CVA and R sided deficits Resume home meds as appropriate Assessment & Plan (11/04/2024 1:15 PM EDT): PMH CVA and R sided deficits Resume home meds as appropriate Assessment & Plan (11/04/2024 5:46 AM EDT): PMH CVA and R sided deficits Resume home meds as appropriate Assessment & Plan (11/02/2024 2:58 PM EDT): PMH CVA and R sided deficits Resume home meds as appropriate Assessment & Plan (11/01/2024 1:55 PM EDT): PMH CVA and R sided deficits Resume home meds as appropriate Assessment & Plan (10/31/2024 1:26 PM EDT): PMH CVA and R sided deficits Resume home meds as appropriate Encounters Date Type Department Care Team Description 12/13/2024 1:00 PM EDT Consult [place] [facility] [address], [address] [place] [address] Ezio Estrada PA Occlusion and stenosis of bilateral carotid arteries (Primary Dx) 12/13/2024 10:37 AM EDT - 12/13/2024 11:59 PM EDT Hospital Encounter [facility] [address], [address] [place] [address] SDH (subdural hematoma) (CMS/HCC) Discharge Disposition: Home or Self Care 12/13/2024 Telephone [facility] [address] [place] [address] Aroldo Cam MD 12/13/2024 Travel 12/05/2024 Telephone [facility] Otolaryngology [address], [address] [place] [address] Messi Medrano 12/01/2024 9:00 AM EDT Office Visit [facility] [address] [place] [address] Navya Woody MD Vision loss (Primary Dx); Homonymous hemianopia, right; Ectropion of left lower eyelid, unspecified ectropion type; Bilateral profound visual loss; Other localized visual field defect, bilateral; Nuclear sclerotic cataract of both eyes; Intraventricular hemorrhage (CMS/HCC); Lagophthalmos of right lower eyelid, unspecified lagophthalmos type 12/01/2024 7:45 AM EDT Ancillary Procedure [facility] [address] [place] [address] 12/01/2024 7:40 AM EDT Ancillary Procedure [facility] [address] [place] [address] 12/01/2024 7:40 AM EDT Ancillary Procedure [facility] [address] [place] [address] 12/01/2024 Travel 11/30/2024 Telephone [facility] [address] [place] [address] Navya Woody MD 11/30/2024 Telephone [facility] Otolaryngology [address], [address] [place] [address] Yobani Benoit MD HCN Clinical Concern/Question 11/30/2024 Telephone [facility] [address] [place] [address] Monique Barnhart 11/29/2024 Telephone [facility] [address] [place] [address] Aroldo Cam MD HCN - Patient Message 11/25/2024 1:15 PM EDT Office Visit [facility] Otolaryngology [address], [address] [place] [address] Yobani Benoit MD Injury of globe of eye, right, initial encounter (Primary Dx); Closed fracture of right zygomatic arch with routine healing, subsequent encounter 11/25/2024 Travel 11/18/2024 Telephone [facility] Otolaryngology [address], [address] [place] [address] Vianey Mascorro 11/17/2024 Orders Only [facility] [address], [address] [place] [phone] Miranda Garcias PA SDH (subdural hematoma) (CMS/HCC) (Primary Dx) 11/14/2024 Telephone [facility] Otolaryngology [address], [address] [place] [address] Vianey Mascorro 11/12/2024 Travel 11/11/2024 Travel 11/03/2024 Travel 11/02/2024 Travel 11/01/2024 1:55 PM EDT Anesthesia Event [facility] [address] [place] [address] Vernon Lim MD Rock, Holly R, PA 11/01/2024 12:56 PM EDT - 11/01/2024 2:41 PM EDT Surgery [facility] [address] [place] [address] Yobani Benoit MD ORIF, FRACTURE, ZYGOMATICOMAXILLARY COMPLEX [47998 (CPT )] 11/01/2024 Ophth Exam [facility] [address] [place] [address] Jovanni Lima MD 11/01/2024 Travel 10/31/2024 Lab Requisition [facility] [address] [place] [address] Benito Waggoner MD Encounter for general adult medical examination without abnormal findings 10/30/2024 2:57 AM EDT - 11/12/2024 4:07 PM EDT Hospital Encounter [facility] [address] [place] [phone] Aroldo Simms MD Wei, Helen S, MD Wheelock, Brittany N, MD Pecoraro, Anthony R, MD Coile, MD Reynaldo Cunningham, Dionne Goss MD Fall, initial encounter (Primary Dx); Intraventricular hemorrhage (CMS/HCC); Electrolyte abnormality; ABLA (acute blood loss anemia); Closed fracture of right zygomatic arch, initial encounter (CMS/HCC); Hyperlipidemia, unspecified hyperlipidemia type; Traumatic brain injury, with unknown loss of consciousness status, initial encounter (CMS/HCC); Acute respiratory failure with hypoxia; Hypertension, unspecified type; Injury of globe of eye, right, initial encounter; Debility; Closed fracture of zygomatic arch, unspecified laterality, initial encounter (CMS/HCC); Retrobulbar hematoma; Brain bleed (CMS/[facility]) Discharge Disposition: Rehab Facility 10/30/2024 Ophth Exam [facility] [address] [place] [address] Shannon Mack MD 10/30/2024 Travel 10/30/2024 Orders Only External Location [address] [place] [address] Provider, External 10/29/2024 Orders Only External Location [address] [place] [address] Provider, External 10/29/2024 Orders Only External Location [address] [place] [address] Provider, External 10/29/2024 Orders Only External Location [address] [place] [address] Provider, External 10/29/2024 Orders Only External Location [address] [place] [address] Provider, External 10/29/2024 Orders Only External Location [address] [place] [address] Provider, External 10/29/2024 Orders Only External Location [address] [place] [address] Provider, External 10/29/2024 Orders Only External Location [address] [place] [address] Provider, External 10/29/2024 Orders Only External Location [address] [place] [address] Provider, External 10/29/2024 Orders Only External Location [address] [place] [address] Provider, External from Last 3 Months Immunizations Immunization Administration Dates Next Due Hep A, Adult 10/31/2009 Influenza, Split (incl. rogelio fied surface antigen) 01/11/2014,11/08/2012,12/05/2009 Influenza, injectable, MDCK, preservative free, quadrivalent 02/03/2022 Influenza, injectable, quadrivalent 10/08/2017,1 03/03/2016 Influenza, injectable, quadr ivalent, preservative free 11/10/2022,02/01/2021,01/10/2019 Influenza, recombinant, quad rivalent, injectable, preservative free 11/02/2019 Influenza, seasonal, injecta ble, preservative free 12/12/2010 Pneumococcal 20-roderick Conj Vaccine 12/09/2022 Pneumococcal Conjugate PCV 13 09/11/2015 Pneumococcal Polysaccharide PPV23 01/10/2019, Tdap 10/30/2024,07/16/2009 Zoster, Recombinant 09/21/2023 Family History Medical History Relation Name Comments Diabetes Brother 1 Diabetes Brother 2 None Diabetes Mother Arthritis Mother's Brother GB Lucia Diabetes Sister None Relation Name Status Comments Brother 1 Brother 2 None Alive Mother Mother's Brother GB Lucia Alive Sister None Social History Tobacco Use Types Packs/Day Years [...] any time in the past [address] [facility], were you homeless or living in a fpc (including now)? Patient unable to answer 10/31/2024 [facility] Utilities Answer Date Recorded In the past [...] Pulse 84 12/13/2024 12:41 PM EDT Temperature 36.6 C (97.8 F) 11/12/2024 11:32 AM EDT Respiratory Rate 16 11/11/2024 11:02 PM EDT Oxygen Saturation 97% 12/13/2024 12:41 PM EDT Inhaled Oxygen Concentration - - Weight 57.2 kg (126 lb) 12/13/2024 12:41 PM EDT Height 157.5 cm (5' 2 ) 12/13/2024 12:41 PM EDT Body Mass Index 23.05 12/13/2024 12:41 PM EDT Plan of Treatment Upcoming Encounters Date Type Department Care Team (Late st Contact Info) Description 12/15/2024 12:00 PM EDT Appointment [facility] [address] [place] [address] 12/15/2024 1:30 PM EDT Office Visit [place] [facility] [address], [address] [place] [address] Raymond Nuñez MD [address] [place] [address] 12/30/2024 1:00 PM EST [facility] [place] [facility] [address], [address] [place] [address] Yobani Benoit MD [address] [place] [address] 05/24/2025 2:30 PM EDT Office Visit [facility] [address] [place] [address] Navya Woody MD [address] [place] [address] 06/07/2025 2:00 PM EDT Consult [place] [facility] [address], [address] [place] [address] Haseeb Dias MD [address] [place] [address] Health Maintenance Due Date Last Done Comments [facility]-Bone Density Scan 1960 [facility]-Medicare Annual Wellness (AWV) 1960 [facility]-/Child/Adol SDOH Screenings 1960 [address] Colonography 08/09/2003 Colonoscopy 08/09/2003 FIT-DNA 08/09/2003 FIT 08/09/2003 FOBT 08/09/2003 Sigmoidoscopy 08/09/2003 [facility]-Colorectal Cancer Screening 08/09/2003 [facility]-Breast Cancer Screening 06/30/2013 07/01/2011 [facility]-RSV Vaccine: 60+ Years or (1 - Risk 60-74 years 1-dose series) 2018 [facility]-Zoster Vaccines (2 of 2) 11/16/2023 09/21/2023 [facility]-Depression Screening 05/21/2024 05/22/2023, 04/24 [id number] Vaccine (5 - season) 2024 02/03/2022, 02/01/2021, 06/06/2020, Additional history exists [facility]-Influenza Vaccine (#1) 10/24/202411/10, 02/03/2022, 02/01/2021, Additional history exists [facility]- SDOH Screenings 04/30/2025 [facility]-Adult SDOH Screenings 04/30/2025 10/31/2024 [facility]-Diabetes: Hemoglobin A1C 07/20/2025 07/20/2024, 05/22/2023, 06/10/2021 [facility]-DTaP,Tdap,and Td Vaccines (3 - Td or Tdap) 10/30/2034 10/30/2024, 07/16/2009 [facility]-Hepatitis A Vaccines Aged Out 10/31/2009 No longer eligible based on patient's age to complete this topic [facility]-Cervical Cancer Screening Discontinued [facility]-Pap Smear Discontinued 04/28/2013 [facility]-Lung Cancer Screening Discontinued 10/20/2022 [facility]-Pneumococcal Vaccine: 50+ Years Completed 12/09/2022, 01/10/2019, 09/11/2015, Additional history exists [facility]-Hepatitis C Screening Completed 05/22/2023 HPV Vaccines [...] on patient's age to complete this topic Medical Devices Implanted Type Area Tile Picker Device Identifier Shelf Expiration Date Model / Serial / Lot Barrier Floor And Wall - [id number] - [id number] Implanted:Qty: 1 on 11/01/2024 by Yobani Benoit MD at [facility] Implant Synthes [id number] / 08.520.220S / Plate Matric Orbital Rim Plate 12 Holes 0.5mm - S04.503.343 - [id number] Implanted:Qty: 1 on 11/01/2024 by Yobani Benoit MD at [facility] Plate Synthe[employer] [id number] 04.503.343 / 04.503.343 / Plate Matric Oblique L-Pl 3x4 Holes-Rt/0.8mm - S04.503.386 - [id number] Implanted:Qty: 1 on 11/01/2024 by Yobani Benoit MD at [facility] Plate [id number] 04.503.386 / 04.503.386 / Screw Screw Matrix Self-Drill 4mm - S04.503.224.01 - [id number] Implanted:Qty: 1 on 11/01/2024 by Yobani Benoit MD at [facility] Screw [id number] 04.503.224. 01 / 04.503.224. 01 / Screw Matrix Self-Drill 5mm - S04.503.225.01 - [id number] Implanted:Qty: 10 on 11/01/2024 by Yobani Benoit MD at [facility] Screw [employer] [id number] 04.503.225. 01 / 04.503.225. 01 / Procedures Procedure Name Priority Date/Time Associated Diagnosis Comments OCT, RETINA - OU - BOTH EYES Routine 12/01/2024 11:22 AM EDT Vision loss OCT, OPTIC NERVE - OU - BOTH EYES Routine 12/01/2024 11:21 AM EDT Vision loss AUTOMATED VISUAL FIELD, EXTENDED - OU - BOTH EYES Routine 12/01/2024 11:17 AM EDT Vision loss CT CERVICAL SPINE WO IV CONTRAST Routine [...] OXYGEN THERAPY Routine 11/04/2024 8:00 AM EDT [facility] CRITICAL CARE, E/M 30-74 MINUTES Routine 11/04/2024 7:05 AM EDT Fall, initial encounter Electrolyte abnormality Traumatic brain injury, with unknown loss of consciousness status, initial encounter ([facility]) Acute respiratory failure with hypoxia Hypertension, unspecified type PHOSPHORUS, PLASMA Routine 11/04/2024 12 :07 AM EDT MAGNESIUM, PLASMA Routine 11/04/2024 12: 07 AM EDT BASIC METABOLIC PANEL, PLASMA Routine 11/04/2024 12:07 AM EDT CBC W/O DIFFERENTIAL Routine 11/04/2024 12:07 AM EDT OXYGEN THERAPY Routine 11/03/2024 8:00 PM EDT CBC W/O DIFFERENTIAL Routine 11/03/2024 3:13 PM EDT XR ANKLE RIGHT 3+ VIEWS Routine 11/03/2024 12:43 PM EDT XR FOOT RIGHT 3+ VIEWS Routine 12:43 PM EDT GA CRITICAL CARE, E/M 30-74 MINUTES Routine 11/03/2024 11:16 AM EDT Fall, initial encounter Electrolyte abnormality Traumatic brain injury, with unknown loss of consciousness status, initial encounter ([facility]) Acute respiratory failure with hypoxia OXYGEN THERAPY Routine 11/03/2024 8:00 AM EDT XR CHEST 1 VIEW Timed 11/03/2024 7:03 AM EDT PHOSPHORUS, PLASMA Routine 11/03/2024 2: 08 AM EDT MAGNESIUM, PLASMA Routine 11/03/2024 2:0 8 AM EDT COMPREHENSIVE METABOLIC PANEL, PLASMA Routine 11/03/2024 2:08 AM EDT CBC WITH AUTO DIFFERENTIAL Routine 11/03/2024 2:08 AM EDT OXYGEN THERAPY Routine 11/02/2024 8:00 PM EDT FL MODIFIED BARIUM SWALLOW STAT 11/02/2024 3:21 PM EDT OXYGEN THERAPY Routine 11/02/2024 12:53 PM EDT OXYGEN THERAPY Routine 11/02/2024 12:53 PM EDT GA CRITICAL CARE, E/M 30-74 MINUTES Routine 11/02/2024 10:25 AM EDT Fall, initial encounter Traumatic brain injury, with unknown loss of consciousness status, initial encounter ([facility]) Acute respiratory failure with hypoxia Hypertension, unspecified type PEP THERAPY Routine 11/02/2024 10:[address] FACE WO IV CONTRAST STAT 9:12 AM EDT POCT ARTERIAL BLOOD GAS GEM UNSOLICITED RESULTS Routine 11/01/2024 6:41 PM EDT POCT GLUCOSE METER UNSOLICITED RESULTS Routine 11/01/2024 6:09 PM EDT PHOSPHORUS, PLASMA Routine 11/01/2024 6: 09 PM EDT MAGNESIUM, PLASMA Routine 11/01/2024 6:0 9 PM EDT COMPREHENSIVE METABOLIC PANEL, PLASMA Routine 11/01/2024 6:09 PM EDT CBC WITH AUTO DIFFERENTIAL Routine 11/01/2024 6:09 PM EDT OXYGEN THERAPY Routine 11/01/2024 3:15 PM EDT PB ANESTHESIA PLACEHOLDER Routine 11/01/2024 2:10 PM EDT GA AN ELECTIVE ENDOTRACHEAL AIRWAY Routine 11/01/2024 2:10 PM EDT ORIF, FRACTURE, ORBIT, FLOOR 11/01/2024 1:40 PM EDT Closed fracture of right zygomatic arch, initial encounter (CMS/[facility]) GA OPEN RX COMPLX CHEEK BONE FRAC 11/01/2024 1:40 PM EDT Closed fracture of right zygomatic arch, initial encounter (CMS/[facility]) XR CHEST 1 VIEW STAT 11/01/2024 12:15 PM EDT POCT ARTERIAL BLOOD GAS GEM UNSOLICITED RESULTS Routine 11/01/2024 12:10 PM EDT CHEST PHYSIOTHERAPY / AIRWAY CLEARANCE Routine 11/01/2024 11:52 AM EDT CHEST PHYSIOTHERAPY / AIRWAY CLEARANCE Routine 11/01/2024 11:52 AM EDT OXYGEN THERAPY Routine 11/01/2024 11:50 AM EDT OXYGEN THERAPY Routine 11/01/2024 11:50 AM EDT XR WRIST RIGHT 3+ VIEWS STAT 11/01/2024 9:55 AM EDT XR HAND RIGHT 3+ VIEWS STAT 9:55 AM EDT XR ELBOW RIGHT 3+ VIEWS STAT 11/01/2024 9:55 AM EDT XR FOREARM RIGHT 2 VIEWS STAT 11/01/2024 9:55 AM EDT GA CRITICAL CARE, E/M 30-74 MINUTES Routine 11/01/2024 7:22 AM EDT Fall, initial encounter Hyperlipidemia, unspecified hyperlipidemia type Traumatic brain injury, with unknown loss of consciousness status, initial encounter ([facility]) Acute respiratory failure with hypoxia PHOSPHORUS, PLASMA Routine 10/31/2024 11 :49 PM EDT MAGNESIUM, PLASMA Routine 10/31/2024 11: 49 PM EDT IONIZED CALCIUM, WHOLE BLOOD Routine 10/31/2024 11:49 PM EDT CBC W/O DIFFERENTIAL Routine 10/31/2024 11:49 PM EDT BASIC METABOLIC PANEL, PLASMA Routine 10/31/2024 11:49 PM EDT MULTI DRUG RESISTANCE TEST Routine 10/31/2024 5:30 PM EDT Encounter for general adult medical examination without abnormal findings OXYGEN THERAPY Routine 10/31/2024 1:47 PM EDT OXYGEN THERAPY Routine 10/31/2024 1:47 PM EDT OXYGEN THERAPY Routine 10/31/2024 1:47 PM EDT EXTUBATION Routine 10/31/2024 1:11 PM EDT GA CRITICAL CARE, E/M 30-74 MINUTES Routine 10/31/2024 10:48 AM EDT Intraventricular hemorrhage ([facility]) Fall, initial encounter Electrolyte abnormality ABLA (acute blood loss anemia) TRIGLYCERIDES, PLASMA Timed 10/31/2024 6:56 AM EDT BLOOD GAS PANEL, ARTERIAL Routine 10/30/2024 11:11 PM EDT PHOSPHORUS, PLASMA Routine 10/30/2024 11 :11 PM EDT MAGNESIUM, PLASMA Routine 10/30/2024 11: 11 PM EDT IONIZED CALCIUM, WHOLE BLOOD Routine 10/30/2024 11:11 PM EDT CBC W/O DIFFERENTIAL Routine 10/30/2024 11:11 PM EDT BASIC METABOLIC PANEL, PLASMA Routine 10/30/2024 11:11 PM EDT POCT GLUCOSE METER UNSOLICITED RESULTS Routine 10/30/2024 6:23 PM EDT XR CHEST 1 VIEW STAT 10/30/2024 4:11 PM EDT CVC TRIPLE LUMEN (SMARTFORM LINK) Routine 10/30/2024 4:02 PM EDT Fall, initial encounter HC INSERT NON-TUNNEL CV CATH Routine 10/30/2024 4:02 PM EDT Fall, initial encounter GA INSERT NON-TUNNEL CV CATH Routine 10/30/2024 4:02 PM EDT Fall, initial encounter URINALYSIS MICROSCOPIC FOR UA REFLEX Routine 10/30/2024 2:11 PM EDT URINALYSIS WITH REFLEX MICROSCOPIC Routine 10/30/2024 2:11 PM EDT TRANSFUSION REACTION URINALYSIS Routine 10/30/2024 2:11 PM EDT TROPONIN T, HIGH SENSITIVITY, 2 HOUR, PLASMA Timed 10/30/2024 1:[address] HEAD WO IV CONTRAST Timed 12:06 PM EDT ECG ADULT STAT 10/30/2024 11:39 AM EDT TROPONIN T, HIGH SENSITIVITY, 0 HOUR, PLASMA, REFLEX TO 2 HOUR STAT 10/30/2024 11:25 AM EDT PHOSPHORUS, PLASMA Routine 10/30/2024 11 :25 AM EDT MAGNESIUM, PLASMA Routine 10/30/2024 11: 25 AM EDT IONIZED CALCIUM, WHOLE BLOOD Routine 10/30/2024 11:25 AM EDT BASIC METABOLIC PANEL, PLASMA Routine 10/30/2024 11:25 AM EDT CBC W/O DIFFERENTIAL Routine 10/30/2024 11:25 AM EDT BLOOD GAS PANEL, ARTERIAL Routine 10/30/2024 11:25 AM EDT EXTRA TUBE LIGHT BLUE TOP Routine 10/30/2024 11:20 AM EDT EXTRA TUBES Routine 10/30/2024 11:20 AM EDT TRANSFUSION REACTION, PATHOLOGIST INTERPRETATION Routine 10/30/2024 10:04 AM EDT TEG GLOBAL HEMOSTASIS WITH LYSIS STAT 10/30/2024 10:04 AM EDT TRANSFUSION REACTION INVESTIGATION Routine 10/30/2024 10:04 AM EDT GA CRITICAL CARE, ADDL 30 MIN Routine 10/30/2024 9:49 AM EDT Intraventricular hemorrhage (CMS/HCC) Fall, initial encounter Electrolyte abnormality ABLA (acute blood loss anemia) Closed fracture of right zygomatic arch, initial encounter (CMS/[facility]) Hyperlipidemia, unspecified hyperlipidemia type Traumatic brain injury, with unknown loss of consciousness status, initial encounter (CMS/[facility]) Acute respiratory failure with hypoxia Hypertension, unspecified type Injury of globe of eye, right, initial encounter Debility GA CRITICAL CARE, ADDL 30 MIN Routine 10/30/2024 9:49 AM EDT Intraventricular hemorrhage (CMS/HCC) Fall, initial encounter Electrolyte abnormality ABLA (acute blood loss anemia) Closed fracture of right zygomatic arch, initial encounter (CMS/[facility]) Hyperlipidemia, unspecified hyperlipidemia type Traumatic brain injury, with unknown loss of consciousness status, initial encounter (CMS/HCC) Acute respiratory failure with hypoxia Hypertension, unspecified type Injury of globe of eye, right, initial encounter Debility HC INSERT CATH,ART,PERCUT,LOR ERM Routine 10/30/2024 9:11 AM EDT Intraventricular hemorrhage (CMS/HCC) GA INSERT CATH,ART,PERCUT,LOR ERM Routine 10/30/2024 9:11 AM EDT Intraventricular hemorrhage (CMS/HCC) POCT ARTERIAL BLOOD GAS GEM UNSOLICITED RESULTS Routine 10/30/2024 8:49 AM EDT TRANSFUSE PLATELETS Routine 10/30/2024 8 :41 AM EDT TRANSFUSE PLATELETS Routine 10/30/2024 8 :11 AM EDT VENTILATOR - ADULT Routine 10/30/2024 8: 00 AM EDT END TIDAL CO2 MONITORING Routine 10/30/2024 8:00 AM EDT PREPARE PLATELETS Routine 10/30/2024 7:1 5 AM EDT VENTILATOR - ADULT Routine 10/30/2024 6: 46 AM EDT VENTILATOR - ADULT Routine 10/30/2024 6: 46 AM EDT LACTATE, VENOUS Routine 10/30/2024 6:45 AM EDT PHOSPHORUS, PLASMA Routine 10/30/2024 6: 45 AM EDT MAGNESIUM, PLASMA Routine 10/30/2024 6:4 5 AM EDT BASIC METABOLIC PANEL, PLASMA STAT 10/30/2024 6:45 AM EDT CBC W/O DIFFERENTIAL STAT 10/30/2024 6:45 AM EDT SBT - SPONTANEOUS BREATHING TRIAL Routine 10/30/2024 6:[address] HEAD WO IV CONTRAST Timed 5:39 AM EDT VERONICA AURIS SURVEILLANCE BY PCR Routine 10/30/2024 4:47 AM EDT MULTI DRUG RESISTANCE TEST Routine 10/30/2024 4:47 AM EDT SBT - SPONTANEOUS BREATHING TRIAL Routine 10/30/2024 4:00 AM EDT END TIDAL CO2 MONITORING Routine 10/30/2024 4:00 AM EDT END TIDAL CO2 MONITORING Routine 10/30/2024 4:00 AM EDT END TIDAL CO2 MONITORING Routine 10/30/2024 4:00 AM EDT VENTILATOR - [...] PROFILE, PLASMA Routine 10/30/2024 2:40 AM EDT PROTHROMBIN TIME(PT) / INR Routine 10/30/2024 2:40 AM EDT CBC W/O DIFFERENTIAL Routine 10/30/2024 2:40 AM EDT BLOOD GAS PANEL, VENOUS Routine 10/30/2024 2:40 AM EDT XR PELVIS 1 OR 2 VIEWS STAT 2:40 AM EDT XR CHEST 1 VIEW STAT 10/30/2024 2:40 AM EDT XR OUTSIDE IMAGES 10/30/2024 1:[address] NEURO OUTSIDE IMAGES 10/29/2024 11:[address] NEURO OUTSIDE IMAGES 10/29/2024 11:[address] NEURO OUTSIDE IMAGES 10/29/2024 11:[address] OUTSIDE IMAGES 10/29/2024 11: [address] NEURO OUTSIDE IMAGES 10/29/2024 11:[address] NEURO OUTSIDE IMAGES 10/29/2024 11:[address] NEURO OUTSIDE IMAGES 10/29/2024 11:[address] NEURO OUTSIDE IMAGES 10/29/2024 11:[address] NEURO OUTSIDE IMAGES 10/29/2024 11:23 PM EDT HEPATITIS C ANTIBODY W/REFLEX TO HCV QUANT PCR Routine 05/22/2023 4:08 PM EDT Need for hepatitis C screening test HEMOGLOBIN A1C Routine 05/22/2023 4:[address] ANGIO CHEST 10/20/2022 12:44 PM EDT from Last 3 Months or Most Recently Relevant to Health Maintenance Results * OCT, Retina - OU - [...] MD OPHTH VISUAL FIELD Final Res ult * CT Cervical Spine wo IV Contrast [...] wo IV Contrast (11/12/2024 12:44 AM EDT) Only the most recent of3 resultswithin the time period is included. Anatomical Region Laterality Modality Head Computed Tomogra [...] POCT glucose meter (11/11/2024 10:50 PM EDT) Only the most recent of4 resultswithin the time period is included. [facility] POCT Glucose 135(H) 74 - 99 mg/dL 11/11/2024 10:51 PM EDT [facility] Comment:Accuracy of [...] Comment 11/11/2024 10:51 PM EDT HEALTHCARE LAB Licensed Chemical Spray Technician ID Zackery Cohen 11/12/19 10:51 PM EDT HEALTHCARE LAB Device ID [id number] 11/11/2024 10:51 PM EDT HEALTHCARE LAB Specimen Type POC Capillary 11/11/2024 10:51 PM EDT HEALTHCARE LAB Blood Capillary blood specimen / Unknown 11/11/2024 10:50 PM EDT 11/11/2024 10:51 PM EDT us Katharine Savage MD LAB POINT OF CARE TE ST DOCKED DEVICE UNSOLICITED RESULTS Final Result [facility] [address] [place] [address] * (ABNORMAL) Wound Culture and Gram Stain (11/04/2024 11:57 AM EDT) [facility] CULTURE READING WOUND Light Growth 11/07/2024 12:50 PM EDT [facility] CULTURE READING WOUND 1+ Methicillin-Resista nt Staphylococcus aureus(AA) GERMÁN 11/07/2024 12:50 PM EDT [facility] Comment: The organism value for this result has been updated. These results have been appended to the previously preliminary verified report. Edited result: Previously reported as Staphylococcus aureus on 11/05/2024 at 0710 EDT. Staphylococcus aureus has been updated to reportable. CULTURE READING WOUND 1+ Staphylococcus epidermidis(A) GERMÁN 11/07/2024 12:50 PM EDT [facility] Comment: This isolate has been identified using the FDA Approved [facility] [place] System The organism value for this result has been updated. These results have been appended to the previously preliminary verified report. Gram Stain Result Few Polymorphonuclear leukocytes(A) 11/07/2024 12:50 PM EDT [facility] Gram Stain Result Few Gram positive cocci in clusters(A) 11/07/2024 12:50 PM EDT [facility] Swab Skin structure / Unknown [...] LAB MICROBIOLOGY - GENERAL ORDERABLES Final Result [facility] [address] [place] [address] * [place] CRITICAL CARE, E/M 30-74 MINUTES (11/04/2024 7:05 [...] Aggressive pulmonary toilet. On goal tube feeds. 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 Will switch to nocturnal feeds and continue diet with protein supplementation during the day. Adequate urine output after 20mg lasix yesterday. Trial of void 11/05. Chemical VTE prophylaxis. us Micheal Espinoza MD IN CLINIC/BEDSIDE ORDERABL ES Final Result * (ABNORMAL) CBC W/O Differential (11/04/2024 12:07 AM EDT) Only the most recent of7 resultswithin the time period is included. WBC Count 7.42 3.70 - 10.30 10*3/uL LAB HEMATOLOGY METHOD 11/04/2024 12:26 AM EDT [facility] RBC Count 2.89(L) 3.90 - 5.20 10*6/uL LAB HEMATOLOGY METHOD 11/04/2024 12:26 AM EDT [facility] HGB 7.9(L) 11.2 - 15.7 g/dL LAB HEMATOLOGY METHOD 11/04/2024 12:26 AM EDT [facility] HCT 25.5(L) 34.0 - 45.0 % LAB HEMATOLOGY METHOD 11/04/2024 12:26 AM EDT [facility] Platelet Count 229 155 - 369 10*3/uL LAB HEMATOLOGY METHOD 11/04/2024 12:26 AM EDT [facility] MCV 88 79 - 98 fL LAB HEMATOLOGY METHOD 11/04/2024 12:26 AM EDT [facility] MCH 27.3 26.0 - 32.0 pg LAB HEMATOLOGY METHOD 11/04/2024 12:26 AM EDT [facility] MCHC 31.0 30.7 - 35.5 g/dL LAB HEMATOLOGY METHOD 11/04/2024 12:26 AM EDT [facility] RDW 13.6 11.5 - 14.5 % LAB HEMATOLOGY METHOD 11/04/2024 12:26 AM EDT [facility] MPV 10.8 8.8 - 12.5 fL LAB HEMATOLOGY METHOD 11/04/2024 12:26 AM EDT [facility] nRBC 0.0 <=0.0 per 100 WBCs LAB HEMATOLOGY METHOD 11/04/2024 12:26 AM EDT [facility] Blood Venous blood specimen / Unknown Venipuncture / Unknown 11/04/2024 12:07 AM EDT 11/04/2024 12:18 AM EDT us Manisha FORBES LAB BLOOD ORDERABLES Final R esult [facility] [address] [place] [address] * Phosphorus (11/04/2024 12:07 AM EDT) Only the most recent of7 resultswithin the time period is included. Phosphorus, Plasma 3.6 2.5 - 4.5 mg/dL 11/04/2024 12:48 AM EDT [facility] Blood Venous blood specimen / Unknown Venipuncture / Unknown 11/04/2024 12:07 AM EDT 11/04/2024 12:16 AM EDT Manisha Maxwell PA LAB BLOOD ORDERABLES Final R esult Performing Organization Address City/[facility]/ZIP Co de Phone Number [facility] [address] [place] [address] * Magnesium (11/04/2024 12:07 AM EDT) Only the most recent of7 resultswithin the time period is included. Magnesium, Plasma 2.2 1.9 - 2.4 mg/dL 11/04/2024 12:48 AM EDT [facility] Blood Venous blood specimen / Unknown Venipuncture / Unknown 11/04/2024 12:07 AM EDT 11/04/2024 12:16 AM EDT Manisha Maxwell [place] LAB BLOOD ORDERABLES Final R [facility] Performing Organization Address City/[facility] Co de Phone Number [facility] [address] [place] [address] * (ABNORMAL) Basic metabolic panel (11/04/2024 12:07 AM EDT) Only the most recent of5 resultswithin the time period is included. Glucose, Plasma 114(H) 74 - 99 mg/dL 11/04/2024 12:48 AM EDT [facility] BUN, Plasma 21 8 - 23 mg/dL 11/04/2024 12:48 AM EDT [facility] Creatinine, Plasma 0.73 0.60 - 1.10 mg/dL 11/04/2024 12:48 AM EDT [facility] BUN/Creatinine Ratio 29 11/04/2024 12:48 AM EDT [facility] Sodium, Plasma 143 136 - 145 mmol/L 11/04/2024 12:48 AM EDT [facility] Potassium, Plasma 3.9 3.6 - 4.9 mmol/L 11/04/2024 12:48 AM EDT [facility] Chloride, Plasma 108(H) 97 - 107 mmol/L 11/04/2024 12:48 AM EDT [facility] CO2, Plasma 27 22 - 29 mmol/L 11/04/2024 12:48 AM EDT [facility] Anion Gap 8 6 - 16 mmol/L 11/04/2024 12:48 AM EDT [facility] Total Calcium, Plasma 7.9(L) 8.9 - 10.2 mg/dL 11/04/2024 12:48 AM EDT [facility] eGFRcr 90.8 mL/min/1.7 3m*2 11/04/2024 12:48 AM EDT [facility] Comment:Reported eGFRcr in m L/min/1.73m2 is based the CKD-EPI 2020 equation that does not use a race coefficient. Blood Venous blood specimen / Unknown Venipuncture / Unknown 11/04/2024 12:07 AM EDT 11/04/2024 12:16 AM EDT Manisha FORBES LAB BLOOD ORDERABLES Final R esult [facility] [address] [place] [address] * XR Foot Right 3+ Views (11/03/2024 [...] XR PROCEDURES Final Resu lt * XR Ankle Right 3+ Views (11/03/2024 [...] IMG XR PROCEDURES Final Resu lt * GA CRITICAL CARE, E/M 30-74 MINUTES (11/03/2024 11:16 [...] Chest 1 View (11/03/2024 7:03 AM EDT) Only the most recent of4 resultswithin the time period is included. Anatomical Region Laterality Modality Chest Digital Radiogra [...] XR PROCEDURES Final Re sult * (ABNORMAL) CBC and differential (11/03/2024 2:08 AM EDT) Only the most recent of2 resultswithin the time period is included. WBC Count 7.77 3.70 - 10.30 10*3/uL LAB HEMATOLOGY METHOD 11/03/2024 2:33 AM EDT [facility] RBC Count 2.74(L) 3.90 - 5.20 10*6/uL LAB HEMATOLOGY METHOD 11/03/2024 2:33 AM EDT [facility] HGB 7.6(L) 11.2 - 15.7 g/dL LAB HEMATOLOGY METHOD 11/03/2024 2:33 AM EDT [facility] HCT 24.4(L) 34.0 - 45.0 % LAB HEMATOLOGY METHOD 11/03/2024 2:33 AM EDT [facility] Platelet Count 193 155 - 369 10*3/uL LAB HEMATOLOGY METHOD 11/03/2024 2:33 AM EDT [facility] MCV 89 79 - 98 fL LAB HEMATOLOGY METHOD 11/03/2024 2:33 AM EDT [facility] MCH 27.7 26.0 - 32.0 pg LAB HEMATOLOGY METHOD 11/03/2024 2:33 AM EDT [facility] MCHC 31.1 30.7 - 35.5 g/dL LAB HEMATOLOGY METHOD 11/03/2024 2:33 AM EDT [facility] RDW 13.7 11.5 - 14.5 % LAB HEMATOLOGY METHOD 11/03/2024 2:33 AM EDT [facility] MPV 10.8 8.8 - 12.5 fL LAB HEMATOLOGY METHOD 11/03/2024 2:33 AM EDT [facility] nRBC 0.0 <=0.0 per 100 WBCs LAB HEMATOLOGY METHOD 11/03/2024 2:33 AM EDT [facility] Differential Type Automated LAB HEMATOLOGY METHOD 11/03/2024 2:33 AM EDT [facility] Neutrophils % 72 % LAB HEMATOLOGY METHOD 11/03/2024 2:33 AM EDT [facility] Lymphocytes % 21 % LAB HEMATOLOGY METHOD 11/03/2024 2:33 AM EDT [facility] Monocytes % 5 % LAB HEMATOLOGY METHOD 11/03/2024 2:33 AM EDT [facility] Eosinophils % 2 % LAB HEMATOLOGY METHOD 11/03/2024 2:33 AM EDT [facility] Basophils % 0 % LAB HEMATOLOGY METHOD 11/03/2024 2:33 AM EDT [facility] Immature Granulocytes % 0 % LAB HEMATOLOGY METHOD 11/03/2024 2:33 AM EDT [facility] Neutrophils Absolute 5.60 1.60 - 6.10 10*3/uL LAB HEMATOLOGY METHOD 11/03/2024 2:33 AM EDT [facility] Lymphocytes Absolute 1.62 1.20 - 3.90 10*3/uL LAB HEMATOLOGY METHOD 11/03/2024 2:33 AM EDT [facility] Monocytes Absolute 0.35 0.30 - 0.90 10*3/uL LAB HEMATOLOGY METHOD 11/03/2024 2:33 AM EDT [facility] Eosinophils Absolute 0.15 0.00 - 0.50 10*3/uL LAB HEMATOLOGY METHOD 11/03/2024 2:33 AM EDT [facility] Basophils Absolute 0.02 0.00 - 0.10 10*3/uL LAB HEMATOLOGY METHOD 11/03/2024 2:33 AM EDT [facility] Immature Granulocytes Absolute 0.03 0.00 - 0.06 10*3/uL LAB HEMATOLOGY METHOD 11/03/2024 2:33 AM EDT [facility] Blood Venous blood specimen / Unknown Venipuncture / Unknown 11/03/2024 2:08 AM EDT 11/03/2024 2:24 AM EDT Narrative [facility] - 11/03/2024 2:33 AM EDT Therapeutic decision making should be based on absolute values, rather than percentages. us Micheal Espinoza MD LAB BLOOD ORDERABLES Final Result [facility] [address] [place] [address] * (ABNORMAL) Comprehensive metabolic panel (11/03/2024 2:08 AM EDT) Only the most recent of2 resultswithin the time period is included. Glucose, Plasma 163(H) 74 - 99 mg/dL 11/03/2024 3:24 AM EDT [facility] BUN, Plasma 22 8 - 23 mg/dL 11/03/2024 3:24 AM EDT [facility] Creatinine, Plasma 0.78 0.60 - 1.10 mg/dL 11/03/2024 3:24 AM EDT [facility] BUN/Creatinine Ratio 28 11/03/2024 3:24 AM EDT [facility] Sodium, Plasma 142 136 - 145 mmol/L 11/03/2024 3:24 AM EDT [facility] Potassium, Plasma 4.1 3.6 - 4.9 mmol/L 11/03/2024 3:24 AM EDT [facility] Chloride, Plasma 109(H) 97 - 107 mmol/L 11/03/2024 3:24 AM EDT [facility] CO2, Plasma 25 22 - 29 mmol/L 11/03/2024 3:24 AM EDT [facility] Anion Gap 8 6 - 16 mmol/L 11/03/2024 3:24 AM EDT [facility] Total Calcium, Plasma 7.9(L) 8.9 - 10.2 mg/dL 11/03/2024 3:24 AM EDT [facility] Total Protein 5.5(L) 6.3 - 7.9 g/dL 11/03/2024 3:24 AM EDT [facility] Albumin, Plasma 2.8(L) 3.5 - 5.2 g/dL 11/03/2024 3:24 AM EDT [facility] AST, Plasma 32 10 - 35 U/L 11/03/2024 3:24 AM EDT [facility] ALT, Plasma 46(H) 10 - 35 U/L 11/03/2024 3:24 AM EDT [facility] Alkaline Phosphatase, Plasma 154(H) 46 - 142 U/L 11/03/2024 3:24 AM EDT [facility] Total Bilirubin, Plasma 0.3 0.2 - 1.1 mg/dL 11/03/2024 3:24 AM EDT [facility] eGFRcr 83.9 mL/min/1.7 3m*2 11/03/2024 3:24 AM EDT [facility] Comment:Reported eGFRcr in m L/min/1.73m2 is based the CKD-EPI 2020 equation that does not use a race coefficient. Blood Venous blood specimen / Unknown Venipuncture / Unknown 11/03/2024 2:08 AM EDT 11/03/2024 2:17 AM EDT us Micheal Espinoza MD LAB BLOOD ORDERABLES Final Result [facility] [address] [place] [address] * [place] Modified Barium Swallow (11/02/2024 3:21 [...] MD IMG FLUOROSCOPY PROCEDURES Final Result * [place] CRITICAL CARE, E/M 30-74 MINUTES (11/02/2024 10:25 [...] October 30, 2024. Face CT scan from [facility] from October 29, 2024 FINDINGS: [...] 2024. Face CT scan from [facility] from October 29, 2024 FINDINGS: [...] 9:26 AM Final report signed by Trevor Nela MD on 11/02/2024 9:58 AM Micheal Espinoza MD IMG CT PROCEDURES Final Re sult * (ABNORMAL) POCT arterial blood gas gem (11/01/2024 6:41 PM EDT) Only the most recent of3 resultswithin the time period is included. pH, Arterial 7.38 7.31 - 7.42 11/01/2024 6:42 PM EDT [facility] pCO2, Arterial 46 35 - 48 mm Hg 11/01/2024 6:42 PM EDT [facility] pO2, Arterial 72(L) >80 mm Hg 11/01/2024 6:42 PM EDT [facility] SO2, Arterial 97 94 - 98 % 11/01/2024 6:42 PM EDT [facility] FIO2 50.0 % 11/01/2024 6:42 PM EDT [facility] Base Excess, Arterial 1.7 -2 - 3 mmol/L 11/01/2024 6:42 PM EDT [facility] HCO3, Arterial 27.2(H) 22 - 26 mmol/L 11/01/2024 6:42 PM EDT [facility] Total Hemoglobin, Arterial, Whole Blood 8.9(L) 11.2 - 15.7 g/dL 11/01/2024 6:42 PM EDT [facility] Hematocrit, Arterial 27.0(L) 34.0 - 45.0 % 11/01/2024 6:42 PM EDT [facility] Sodium, Arterial 141 136 - 145 mmol/L 11/01/2024 6:42 PM EDT [facility] Potassium, Arterial 4.6 3.6 - 4.9 mmol/L 11/01/2024 6:42 PM EDT [facility] Chloride, Whole Blood 109(H) 97 - 107 mmol/L 11/01/2024 6:42 PM EDT [facility] Glucose, Arterial 122(H) 74 - 99 mg/dL 11/01/2024 6:42 PM EDT [facility] Ionized Calcium, Arterial 5.2(H) 4.6 - 5.1 mg/dL 11/01/2024 6:42 PM EDT [facility] Lactate, Arterial 0.8 0.5 - 1.6 mmol/L 11/01/2024 6:42 PM EDT [facility] Body Temperature 37.5 Celsius 11/01/2024 6:42 PM EDT [facility] pH, Temp Corrected, Arterial 7.37 7.31 - 7.42 11/01/2024 6:42 PM EDT [facility] pCO2, Temp Corrected, Arterial 47 35 - 48 mm Hg 11/01/2024 6:42 PM EDT [facility] pO2, Temp Corrected, Arterial 74(L) >80 mm Hg 11/01/2024 6:42 PM EDT [facility] Licensed Chemical Spray Technician ID Edwin Sommers 11/01/2024 6:42 PM EDT [facility] Blood, Arterial Whole blood specimen / Unknown 11/01/2024 6:41 PM EDT 11/01/2024 6:42 PM EDT Micheal Espinoza MD LAB POINT OF CARE TEST DOCKED DEVICE UNSOLICITED RESULTS Final Result [facility] [address] [place] [address] * GA AN ELECTIVE ENDOTRACHEAL AIRWAY, PB ANESTHESIA PLACEHOLDER (11/01/2024 2:10 PM EDT) Narrative JuradoOnofre oquendoruth Jolley CRNA - 11/01/2024 2:10 PM EDT JuradoOnofre oquendoruth Jolley CRNA 11/01/2024 2:30 PM Airway Date/Time: 11/01/2024 2:10 PM Reason: elective Airway not difficult General Information and Staff Patient location during procedure: OR Performed: GUINEA PIG BREEDER Patient Condition Indications for airway management: anesthesia [...] Easy mask. Poor neck extension. Easy glide. us Vernon Lim MD ANESTHESIA ORDERABLES Final Resu lt * XR Hand Right 3+ Views (11/01/2024 [...] XR PROCEDURES Final Re sult * XR Wrist Right 3+ Views (11/01/2024 [...] IMG XR PROCEDURES Final Re sult * GA CRITICAL CARE, E/M 30-74 MINUTES (11/01/2024 7:22 [...] IN CLINIC/BEDSIDE ORDERABL ES Final Result * Ionized calcium, whole blood (10/31/2024 11:49 PM EDT) Only the most recent of3 resultswithin the time period is included. [facility] Ionized Calcium, Whole Blood 4.6 4.6 - 5.1 mg/dL LAB HEMATOLOGY METHOD 11/01/2024 12:01 AM EDT [facility] Blood Venous blood specimen / Unknown Venipuncture / Unknown 10/31/2024 11:49 PM EDT 10/31/2024 11:59 PM EDT Erica Castillo APRN LAB BLOOD ORDERABLES Final Result [facility] [address] [place] [address] * Multi Drug Resistance Test (10/31/2024 5:30 PM EDT) Only the most recent of2 resultswithin the time period is included. [facility] Culture No growth at day 1 11/01/2024 8:21 PM EDT [facility] Swab (Nares and Marley Rectal) 10/31/2024 5:30 PM EDT 10/31/2024 6:42 PM EDT Narrative [facility] - 11/01/2024 8:21 PM EDT This test was developed and its performance characteristics determined by the [facility]. Although the media is FDA-approved, it is not FDA-approved for all specimen types submitted. The FDA has determined that such clearance or approval is not necessary. This test is used for surveillance purposes. It should not be regarded as investigational or for research. The [facility] is certified under the Clinical Laboratory Improvement Amendments of 1988 (CLIA-88) as qualified to perform high complexity clinical laboratory testing. us Benito Waggoner MD LAB MICROBIOLOGY - GEN ERAL ORDERABLES Final Result [facility] [address] [place] [address] * [facility] CRITICAL CARE, E/M 30-74 MINUTES (10/31/2024 10:48 [...] 82 <150 mg/dL 10/31/2024 7:42 AM EDT [facility] Comment: Triglyceride Reference Range (age >17 years): Desirable: <150 mg/dL Borderline high: 150 to 199 mg/dL High: 200 to 499 mg/dL Very high: >499 mg/dL Increased risk of pancreatitis: >1000 mg/dL Fasting greater than or equal to 12 hours? No 10/31/2024 7:42 AM EDT [facility] Blood Venous blood specimen / Unknown Venipuncture / Unknown 10/31/2024 6:56 AM EDT 10/31/2024 7:09 AM EDT us Katharine Savage MD LAB BLOOD ORDERABLES Final Resul t [facility] [address] [place] [address] * (ABNORMAL) Blood gas, arterial (10/30/2024 11:11 PM EDT) Only the most recent of2 resultswithin the time period is included. pH, Arterial 7.41 7.31 - 7.42 LAB HEMATOLOGY METHOD 10/30/2024 11:19 PM EDT [facility] pCO2, Arterial 38 35 - 48 mmHg LAB HEMATOLOGY METHOD 10/30/2024 11:19 PM EDT [facility] pO2, Arterial 192 >80 mmHg LAB HEMATOLOGY METHOD 10/30/2024 11:19 PM EDT [facility] SO2, Measured, Arterial 100(H) 94 - 98 % LAB HEMATOLOGY METHOD 10/30/2024 11:19 PM EDT [facility] Base Excess, Arterial -0.2 -2.0 - 3.0 mmol/L LAB HEMATOLOGY METHOD 10/30/2024 11:19 PM EDT [facility] LAB Bicarbonate, Calculated, Arterial 24 22 - 26 mmol/L LAB HEMATOLOGY METHOD 10/30/2024 11:19 PM EDT [facility] Hematocrit, Whole Blood 27.5(L) 34.0 - 45.0 % LAB HEMATOLOGY METHOD 10/30/2024 11:19 PM EDT [facility] Sodium, Whole Blood 140 136 - 145 mmol/L LAB HEMATOLOGY METHOD 10/30/2024 11:19 PM EDT [facility] Potassium, Whole Blood 4.0 3.6 - 4.9 mmol/L LAB HEMATOLOGY METHOD 10/30/2024 11:19 PM EDT [facility] Chloride, Whole Blood 110(H) 97 - 107 mmol/L LAB HEMATOLOGY METHOD 10/30/2024 11:19 PM EDT [facility] Glucose, Whole Blood 138(H) 74 - 99 mg/dL LAB HEMATOLOGY METHOD 10/30/2024 11:19 PM EDT [facility] Ionized Calcium, Whole Blood 4.4(L) 4.6 - 5.1 mg/dL LAB HEMATOLOGY METHOD 10/30/2024 11:19 PM EDT [facility] Lactate, Arterial, Whole Blood 1.5 0.5 - 1.6 mmol/L LAB HEMATOLOGY METHOD 10/30/2024 11:19 PM EDT [facility] Blood Arterial blood specimen / Unknown Arterial Puncture / Unknown 10/30/2024 11:11 PM EDT 10/30/2024 11:17 PM EDT Isabelle Soto MD LAB BLOOD ORDERABLES Evelyn richardson Result Performing Organization Address City/State/[facility] Co de Phone Number [facility] [address] [place] [address] * GA INSERT NON-TUNNEL CV CATH, HC INSERT NON-TUNNEL [...] were discussed: yes Alternatives discussed: No treatment [place] protocol: Imaging studies available: yes Site/side marked: [...] Castillo APRN LAB URINE ORDERABLES Final Result [facility] [address] [place] [address] * (ABNORMAL) Urinalysis with reflex microscopic (Culture NOT Included) (10/30/2024 2:11 PM EDT) Color, Urine Dark Yellow LAB URINALYSIS - AUTOMATED METHOD 10/30/2024 2:36 PM EDT [facility] Clarity, Urine Cloudy LAB URINALYSIS - AUTOMATED METHOD 10/30/2024 2:36 PM EDT [facility] Spec [place], Urine >1.030(H) 1.005 - 1.030 LAB URINALYSIS - AUTOMATED METHOD 10/30/2024 2:36 PM EDT [facility] pH, Urine 5.5 5.0 - 8.0 LAB URINALYSIS - AUTOMATED METHOD 10/30/2024 2:36 PM EDT [facility] Protein, Urine 100(A) Negative mg/dL LAB URINALYSIS - AUTOMATED METHOD 10/30/2024 2:36 PM EDT [facility] Glucose, Urine Negative Negative mg/dL LAB URINALYSIS - AUTOMATED METHOD 10/30/2024 2:36 PM EDT [facility] Ketones, Urine Trace(A) Negative mg/dL LAB URINALYSIS - AUTOMATED METHOD 10/30/2024 2:36 PM EDT [facility] Blood, Urine Large(A) Negative LAB URINALYSIS - AUTOMATED METHOD 10/30/2024 2:36 PM EDT [facility] Bilirubin, Urine Negative Negative LAB URINALYSIS - AUTOMATED METHOD 10/30/2024 2:36 PM EDT [facility] Urobilinogen, Urine 1.0 0.2 to 1.0 mg/dL LAB URINALYSIS - AUTOMATED METHOD 10/30/2024 2:36 PM EDT [facility] Leukocytes, Urine Trace(A) Negative LAB URINALYSIS - AUTOMATED METHOD 10/30/2024 2:36 PM EDT [facility] Nitrite, Urine Negative Negative LAB URINALYSIS - AUTOMATED METHOD 10/30/2024 2:36 PM EDT [facility] RBC, Urine >50(A) 0 to 3 /HPF LAB URINALYSIS - AUTOMATED METHOD 10/30/2024 2:36 PM EDT [facility] WBC, Urine 6 - 10(A) 0 to 5 /HPF LAB URINALYSIS - AUTOMATED METHOD 10/30/2024 2:36 PM EDT [facility] Squamous Epithelial Cells 0 - 2 0 to 5 /HPF LAB URINALYSIS - AUTOMATED METHOD 10/30/2024 2:36 PM EDT [facility] Hyaline Casts 0 - 2 0 to 5 /LPF LAB URINALYSIS - AUTOMATED METHOD 10/30/2024 2:36 PM EDT [facility] Bacteria, Urine Negative Negative LAB URINALYSIS - AUTOMATED METHOD 10/30/2024 2:36 PM EDT [facility] Urine Urine specimen from urinary conduit / Unknown Non-blood Collection / Unknown 10/30/2024 2:11 PM EDT 10/30/2024 2:16 PM EDT us Erica Castillo APRN LAB URINE ORDERABLES Final Result [facility] [address] [place] [address] * (ABNORMAL) Troponin T, High Sensitivity, 2 Hour, Plasma (10/30/2024 1:24 PM EDT) Troponin T, High Sensitivity, 2 Hour 418(H) <14 ng/L 10/30/2024 1:56 PM EDT [facility] Troponin Delta Interpretation Not Calculated 10/30/2024 1:56 PM EDT [facility] Comment:Specimen not collect ed within acceptable timeframe. Delta will not be calculated. Blood Arterial blood specimen / Unknown Arterial Puncture / Unknown 10/30/2024 1:24 PM EDT 10/30/2024 1:28 PM EDT us Erica Castillo [employer] LAB BLOOD ORDERABLES Final Result [facility] [address] [place] [address] * ECG Adult (10/30/2024 11:39 AM EDT) EKG DIAGNOSIS CLASS Abnormal MUSE ECG Ventricular Rate 85 BPM MUSE ECG Atrial Rate 85 BPM MUSE ECG GA Interval 146 ms MUSE ECG QRSD Interval 84 ms MUSE ECG QT Interval 394 ms MUSE ECG QTC Interval 468 ms MUSE ECG P [place] 82 degrees MUSE ECG R [place] 51 degrees MUSE ECG T Wave [place] 184 degrees MUSE ECG Diagnosis Poor data [...] MUSE ECG Diagnosis Confirmed by Tristan Cooper ([id number]) on 10/30/2024 12:08:55 PM MUSE ECG 10/30/2024 11:3 9 AM EDT 10/30/2024 12:08 PM EDT us Erica Castillo [employer] ECG ORDERABLES Final Resu lt MUSE ECG * (ABNORMAL) Troponin T, High Sensitivity, 0 Hour Plasma, Reflex to 2 Hour (10/30/2024 11:25 AM EDT) Troponin T, High Sensitivity, 0 Hour 179(H) <14 ng/L 10/30/2024 12:01 PM EDT [facility] Blood Arterial blood specimen / Unknown Arterial Puncture / Unknown 10/30/2024 11:25 AM EDT 10/30/2024 11:32 AM EDT Erica Castillo AMY LAB BLOOD ORDERABLES Final Result [facility] [address] [place] [address] * Light Blue Top (10/30/2024 11:20 AM EDT) Extra Hold for add-ons 10/30/2024 2:02 PM EDT [facility] Comment:Auto resulted. Blood Venous blood specimen / Unknown 10/30/2024 11:20 AM EDT 10/30/2024 11:35 AM EDT Katharine Savage MD LAB BLOOD ORDERABLES Final Resul t Performing Organization Address [facility] Co de Phone Number [facility] [address] [place] [address] * Transfusion Reaction, Pathologist Interpretation (10/30/2024 10:04 [...] AM EDT 10/30/2024 10:30 AM EDT Erica Garciaers [employer] LAB BLOOD BANK TEST ORDERA BLES Final Result Performing Organization Address City/[facility]/ZIP Co de Phone Number BLOOD BANK [address] [place] [address], * (ABNORMAL) TEG Global Hemostasis with Lysis (10/30/2024 10:04 AM EDT) R, Lysis 3.3(L) 4.6 - 9.1 min 10/30/2024 11:23 AM EDT [facility] MA, Rapid, Lysis 69.0 52.0 - 70.0 mm 10/30/2024 11:23 AM EDT [facility] MA, Fibrinogen, Lysis 28.0 15.0 - 32.0 mm 10/30/2024 11:23 AM EDT [facility] LY30 0.1 0.0 - 2.6 % 10/30/2024 11:23 AM EDT [facility] Blood Arterial blood specimen / Unknown Arterial Puncture / Unknown 10/30/2024 10:04 AM EDT 10/30/2024 10:17 AM EDT Erica Day Jonathan [employer] LAB BLOOD ORDERABLES Final Result Performing Organization Address City/[facility]/ZIP Co de Phone Number [facility] [address] [place] [address] * Transfusion Reaction Investigation (10/30/2024 10:04 AM [...] Comment:2 LEUKOREDUCED PLATE LETS GIVEN- [id number]; W0382 25 [id number] O [id number] Donor Unit Culture Not Indicated 10/30/2024 9:10 [...] ORDERA BLES Final Result Performing Organization Address City/State/[facility] de Phone Number BLOOD BANK [address] [place] [address], * GA CRITICAL CARE, ADDL 30 MIN, GA CRITICAL CARE, ADDL 30 MIN (10/30/2024 9:49 [...] * Transfuse platelets (10/30/2024 9:14 AM EDT) Only the most recent of2 resultswithin the time period is included. Erica Castillo APRN BLOOD TRANSFUSION ORDERABL ES Final Result * GA INSERT CATH,ART,PERCUT,SHORTTERM, HC INSERT CATH,ART,PERCUT,SHORTTERM (10/30/2024 9:11 AM EDT) Narrative Isabelle Soto MD - 10/30/2024 9:11 AM EDT Isabelle Soto MD 11/02/2024 10:22 AM Arterial line Performed by: Erica Castillo APRN Authorized by: Erica Castillo APRN Consent: Consent obtained: Written Consent given by: son. Risks discussed: Bleeding and infection [place] protocol: Imaging studies available: yes Site/side marked: [...] Tolerated well, no immediate complications Erica Castillo [employer] IV THERAPY ORDERABLES Evelyn l Result * Prepare Leukocyte Reduced Platelets: 2 Units (10/30/2024 7:15 AM EDT) Product Code [id number] BLOO D BANK Dispense Status Transfused BLOOD BANK Blood Expiration Date [id number] BLOOD BANK Unit Number [id number] CH B LOOD BANK Product Blood Type 7300 BLOOD BANK Blood Type B+ CH BLOOD BANK Product Code [id number] BLOO D BANK Dispense Status Transfused BLOOD BANK Blood Expiration Date [id number] BLOOD BANK Unit Number [id number] CH B LOOD BANK Product Blood Type 6200 BLOOD BANK Blood Type A+ BLOOD BANK Blood Venous blood specimen / Unknown Erica Castillo APRN BLOOD BANK PRODUCT ORDERAB LES Final Result Performing Organization Address [facility] Co de Phone Number BLOOD BANK [address] * (ABNORMAL) Lactate, venous (10/30/2024 6:45 AM EDT) Pathologist [facility] Lactate, Venous, Whole Blood 2.8(H) 0.5 - 2.2 mmol/L LAB HEMATOLOGY METHOD 10/30/2024 6:58 AM EDT [facility] Blood Venous blood specimen / Unknown Venipuncture / Unknown 10/30/2024 6:45 AM EDT 10/30/2024 6:57 AM EDT Chirag FORBES LAB BLOOD ORDERABLES Final Res ult [facility] [address] [place] [address] * Vreonica auris Surveillance by PCR (10/30/2024 4:47 AM EDT) Pathologist [facility] Veronica auris PCR Result Not Detected Not Detected 10/31/2024 4:57 AM EDT [facility] Swab (Axilla and Groin) Non-blood Collection / Unknown 10/30/2024 4:47 AM EDT 10/30/2024 4:59 AM EDT Narrative [facility] - 10/31/2024 4:57 AM EDT This PCR assay was developed and its performance characteristics determined by [facility] as appropriate for clinical purposes. This assay has not been cleared or approved by the FDA, but is performed in a CLIA regulated laboratory that is qualified to perform high-complexity testing. Chirag FORBES LAB MICROBIOLOGY - GENERAL ORD ERABLES Final Result Performing Organization Address [facility] Co de Phone Number [facility] [address] [place] [address] * Type and Screen (10/30/2024 2:43 AM EDT) [facility] ABO/Rh O Positive 10/30/2024 4:18 AM EDT BLOOD BANK Comment:DOWNTIME RESULT ENTR Y : [id number] Antibody Screen Negative 10/30/2024 4:18 AM EDT [facility]LO[facility] Comment:DOWNTIME RESULT ENTR Y: [id number] Specimen Expiration 11/02/2024 23:59 10/30/2024 4:18 AM EDT [facility] Blood Venous blood specimen / Unknown Venipuncture / Unknown 10/30/2024 2:43 AM EDT 10/30/2024 4:35 AM EDT Katharine Savage MD LAB BLOOD BANK TEST ORDERABLES E dited Result - Final Performing Organization Address City/[facility] Co de Phone Number BLOOD BANK [address] [place] [address], [place] * Gold Top (10/30/2024 2:40 AM EDT) Only the most recent of2 resultswithin the time period is included. [facility] Extra Hold for add-ons 10/30/2024 6:02 AM EDT [facility] Comment:Auto resulted. Blood Venous blood specimen / Unknown 10/30/2024 2:40 AM EDT 10/30/2024 3:32 AM EDT Aroldo Simms MD LAB BLOOD ORDERABLES Final Result Performing Organization Address [facility] Co de Phone Number [facility] [address] [place] [address] * Alcohol Profile Plasma (10/30/2024 2:40 AM EDT) Methanol Plasma <10 <10 mg/dL 7:04 AM EDT [facility] Acetone Plasma <10 <10 mg/dL 10/30/2024 7:04 AM EDT [facility] Isopropanol Plasma <10 <10 mg/dL 10/30/2024 7:04 AM EDT [facility] Ethanol Plasma <10 <10 mg/dL 10/30/2024 7:04 AM EDT [facility] Blood Venous blood specimen / Unknown Venipuncture / Unknown 10/30/2024 2:40 AM EDT 10/30/2024 3:22 AM EDT Narrative [facility] - 10/30/2024 7:04 AM EDT Test performed by Gas Chromatography at the [facility]. This test was developed and its performance characteristics determined by [facility]. It has not been cleared or approved by the FDA.The laboratory is regulated under CLIA as qualified to perform high-complexity testing. This test is used for clinical purposes only. Katharine Savage MD LAB BLOOD ORDERABLES Final Resul t Performing Organization Address City/[facility]/ZIP Co de Phone Number [facility] [address] [place] [address] * XR Pelvis 1 or 2 Views [...] Escobar MD on 10/30/2024 3:19 AM us Aroldo Simms MD IMG XR PROCEDURES Fin al Result * Protime-INR (10/30/2024 2:40 AM EDT) Prothrombin Time 10/30/2024 4:59 AM EDT [facility] Comment: aPTT <20. Notified Baron Sofia of result correction. Corrected result: Previously reported as 13.9 sec on 10/30/2024 at 0336 EDT. INR LAB COAGULATION METHOD 10/30/2024 4:59 AM EDT [facility] Comment: aPTT <20. Notified Baron Sofia of result correction. Corrected result: Previously reported as 1.1 on 10/30/2024 at 0336 EDT. Blood Venous blood specimen / Unknown Venipuncture / Unknown 10/30/2024 2:40 AM EDT 10/30/2024 3:12 AM EDT Narrative [facility] - 10/30/2024 4:59 AM EDT aPTT <20. Notified Baron Sofia of result correction. us Katharine Savage MD LAB BLOOD ORDERABLES Edited Resu lt - Final [facility] [address] [place] [address] * (ABNORMAL) Blood gas, venous (10/30/2024 2:40 AM EDT) pH, Venous 7.31(L) 7.32 - 7.43 LAB HEMATOLOGY METHOD 10/30/2024 3:18 AM EDT [facility] pCO2, Venous 53(H) 37 - 52 mmHg LAB HEMATOLOGY METHOD 10/30/2024 3:18 AM EDT [facility] pO2, Venous 33 25 - 40 mmHg LAB HEMATOLOGY METHOD 10/30/2024 3:18 AM EDT [facility] SO2, Measured, Venous 51(L) 65 - 80 % LAB HEMATOLOGY METHOD 10/30/2024 3:18 AM EDT [facility] Base Excess, Venous -0.4 -2.0 - 3.0 mmol/L LAB HEMATOLOGY METHOD 10/30/2024 3:18 AM EDT [facility] Bicarbonate, Calculated, Venous 27(H) 22 - 26 mmol/L LAB HEMATOLOGY METHOD 10/30/2024 3:18 AM EDT [facility] Hematocrit, Whole Blood 37.6 34.0 - 45.0 % LAB HEMATOLOGY METHOD 10/30/2024 3:18 AM EDT [facility] Sodium, Whole Blood 140 136 - 145 mmol/L LAB HEMATOLOGY METHOD 10/30/2024 3:18 AM EDT [facility] Potassium, Whole Blood 4.2 3.6 - 4.9 mmol/L LAB HEMATOLOGY METHOD 10/30/2024 3:18 AM EDT [facility] Chloride, Whole Blood 103 97 - 107 mmol/L LAB HEMATOLOGY METHOD 10/30/2024 3:18 AM EDT [facility] Glucose, Whole Blood 125(H) 74 - 99 mg/dL LAB HEMATOLOGY METHOD 10/30/2024 3:18 AM EDT [facility] Lactate, Venous, Whole Blood 3.3(H) 0.5 - 2.2 mmol/L LAB HEMATOLOGY METHOD 10/30/2024 3:18 AM EDT [facility] Ionized Calcium, Whole Blood 4.7 4.6 - 5.1 mg/dL LAB HEMATOLOGY METHOD 10/30/2024 3:18 AM EDT [facility] Blood Venous blood specimen / Unknown Venipuncture / Unknown 10/30/2024 2:40 AM EDT 10/30/2024 3:11 AM EDT Katharine Savage MD LAB BLOOD ORDERABLES Final Resul t [facility] [address] [place] [address] * XR OUTSIDE IMAGES (10/30/2024 1:15 AM EDT) Anatomical Region Laterality Modality Radiographic Carlene ging 10/30/2024 1:15 AM EDT us External Provider IMG XR PROCEDURES Final Result * CT NEURO OUTSIDE IMAGES (10/29/2024 11:43 PM EDT) Only the most recent of8 resultswithin the time period is included. Anatomical Region Laterality Modality Computed Tomogra phy 10/29/2024 11:4 3 PM EDT us External Provider IMG CT PROCEDURES Edited Resul t - Final * CT OUTSIDE IMAGES (10/29/2024 11:39 PM EDT) Anatomical Region Laterality Modality Computed Tomogra phy 10/29/2024 11:3 9 PM EDT us External Provider IMG CT PROCEDURES Final Result * Hepatitis C Antibody w/Reflex to HCV Quant PCR (05/22/2023 4:08 PM EDT) Hepatitis C Antibody Negative Negative 05/22/2023 6:50 PM EDT [facility] Blood Venous blood specimen / Unknown Venipuncture / Unknown 05/22/2023 4:08 PM EDT 05/22/2023 4:08 PM EDT Jennifer Adhikari APRN LAB BLOOD ORDERABLES Evelyn l Result Performing Organization Address [facility] de Phone Number [facility] [address] [place] [address] * (ABNORMAL) Hemoglobin A1c (05/22/2023 4:08 PM EDT) Hemoglobin A1c 6.0(H) <5.7 % 05/22/2023 7:37 PM EDT [facility] Blood Venous blood specimen / Unknown Venipuncture / Unknown 05/22/2023 4:08 PM EDT 05/22/2023 4:08 PM EDT Narrative [facility] - 05/22/2023 7:37 PM EDT HA1C Interpretive Data: Diagnosis of Diabetes: Diabetic > or = 6.5% Pre-diabetic 5.7 to 6.4% Non-diabetic < or = 5.6% Glycemic Targets for Type I and Type II Diabetics: Non- Adults <7.0% Adults <6.0% Children and Adolescents <7.5% Source: [place] [employer]. Standards of medical care in diabetes,2017. Diabetes Care.2017:40 (suppl 1):S1-S135. HbA1c assay performed by an ion-exchange chromatography method that is certified traceable to the DCCT. 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 Yes I have reviewed the capacity from the link above and, if needed, have updated to appropriate status: Yes Healthcare Agents on File Name Relationship Healthcare Agent Relationshi p Communication Artemio Heath Health Care Agent Sami Heath Health Care Agent Care Teams Scheduling Coordinator Relationship Specialty Start Date End Date Aman Hernandez MD [address] [facility] [address] [place] [address] PCP - General Family Medicine 06/18/21
--- OUTSIDE RECORDS SUMMARY | 2024-12-14 01:05 | XMS_ITS | Encounter Summary ---
Author Organization Healthcare Address [address] [place] [address] Care Team Providers Care Senior Erp Consultant Name Role Phone Aman Hernandez MD Primary Care Provider Reason for Referral * Consultation (Routine) - Closed Specialty Diagnoses / Procedures Referred By Zoe guevara Referred To Contact Ophthalmology Diagnoses Personal history of transient cerebral ischemia Unspecified visual loss Yonny Scott MD [facility] [place] [address] Phone: tel: fax: [facility] [address] [place] [address] Phone: tel: fax: Referral ID Status Reason Start Date Expiration Date V isits Requested Visits Authorized [id number] Closed Specialty Services Required 07/11/2024 01/10/2026 1 1 Encounter Details Date Type Department Care Team (Late st Contact Info) Description 07/11/2024 Community [facility] [address] [place] [address] Yonny Scott MD [facility] [place] [address] Personal history of transient cerebral [...] place to sleep or slept in a custodial (including now)? No 05/22/2023 PHQ-9 Answer Date [...] Recorded In the past 12 months has [employer] gas, oil, or water Seeder threatened to shut off services in your [...] [facility] [address] [place] [address] 12/15/2024 1:30 PM EDT Office Visit [facility] [address] [place] [phone] Raymond Nuñez MD [address] [facility] [address] [place] [address] 12/30/2024 1:00 PM EST Office Visit [facility] Otol[facility]ology [address] [place] [address] Yobani Benoit MD [address] [facility] [address] [place] [address] 05/24/2025 2:30 PM EDT Office Visit [facility] [address] [place] [phone] Navya Woody MD [address] [place] [address] 06/07/2025 2:00 PM EDT Consult [facility] [address] [place] [address] Haseeb Dias MD [address] [facility] [address] [place] [address] Scheduled Referrals Name Type Priority [...] documented as of this encounter Care Teams Senior Erp Consultant Relationship Specialty Start Date End Date Aman Hernandez MD [address] [place] [phone] PCP - General Family Medicine 06/18/21 documented as of this encounter
--- OUTSIDE RECORDS SUMMARY | 2024-12-14 01:06 | XMS_ITS | Clinical Summary ---
Author Organization [facility] Address [address] [place] [id number] Care Team Providers Care Digital Imaging Specialist Name Role Phone Reanna Perdomo Naila MONIQUE Primary Care Provider [phone] Source Comments This information has been disclosed [...] therelease of HIV test results or diagnoses. [id number] Allergies Active Allergy Reactions Criticality Noted [...] Insurance [employer] PPO MEDICARE Care Teams Digital Imaging Specialist Relationship Specialty Start Date End Date Reanna Perdomo APN [address] [place] [facility] [address] [place] [address] PCP - General Family Medicine 09/02/18
--- OUTSIDE RECORDS SUMMARY | 2024-12-14 01:06 | XMS_ITS | Encounter Summary ---
Author Organization [facility] Address [address] [place] [address] Care Team Providers Care Electronics Commodity Manager Name Role Phone Aman Hernandez MD Primary Care Provider Encounter Details Date Type Department Care Team (Late st Contact Info) Description 10/29/2024 Orders Only External Location [address] [place] [address] Provider, External Social History Tobacco Use Types [...] any time in the past 12 m [facility], were you homeless or living in a mcfp (including now)? Patient unable to answer 10/31/2024 [facility] Utilities Answer Date Recorded In the [...] Vascular Lab [address] [place] [address] 12/15/2024 1:30 PM EDT Office Visit [facility] [address], 1st [place] [address] Raymond Nuñez MD [address] [place] [address] 12/30/2024 1:00 PM EST Office Visit [facility] Otolaryngology [address], 3rd [place] [address] Yobani Benoit MD [address] [place] [address] 05/24/2025 2:30 PM EDT Office Visit [facility] [address] [place] [address] Navya Woody MD [address] [place] [address] 06/07/2025 2:00 PM EDT Consult [facility] [address] 1[address] [place] [address] Haseeb Dias MD [address] [place] [address] documented as of this encounter Procedures Procedure Name Priority Date/Time Associated Diagnosis Comments CT NEURO OUTSIDE IMAGES 10/29/2024 11:39 PM EDT documented in this encounter Results * CT NEURO OUTSIDE IMAGES (10/29/2024 11:39 PM EDT) Anatomical Region Laterality Modality Computed Tomogra phy 10/29/2024 11:3 9 PM EDT External Provider IMG CT PROCEDURES Final Result [...] documented as of this encounter Care Teams Electronics Commodity Manager Relationship Specialty Start Date End Date Aman Hernandez MD [address] [facility] 125 [place] [address] PCP - General Family Medicine 06/18/21 documented as of this encounter
--- OUTSIDE RECORDS SUMMARY | 2024-12-14 01:06 | XMS_ITS | Encounter Summary ---
Author Organization [facility] Address [address] [place] [address] Care Team Providers Care Surgery Teacher Name Role Phone Aman Hernandez MD Primary Care Provider Encounter Details Date Type Department Care Team (Late st Contact Info) Description 10/29/2024 Orders Only External Location [address] [place] [address] Provider, External Social History Tobacco Use Types [...] time in the past 12 m [facility], were you homeless or living in a snf (including now)? Patient unable to answer 10/31/2024 [...] Vascular Lab [address] [place] [address] 12/15/2024 1:30 PM EDT Office Visit [facility] [address], 1st [place] [address] Raymond Nuñez MD [address] [place] [address] 12/30/2024 1:00 PM EST Office Visit [facility] Otolaryngology [address], 3rd [place] [address] Yobani Benoit MD [address] [place] [address] 05/24/2025 2:30 PM EDT Office Visit [facility] Eye Care [address] [place] [address] Navya Woody MD [address] [place] [address] 06/07/2025 2:00 PM EDT Consult [facility] [address], [address] [place] [address] Haseeb Dias MD [address] [place] [address] documented as of this encounter Procedures Procedure Name Priority Date/Time Associated Diagnosis Comments CT NEURO OUTSIDE IMAGES 10/29/2024 11:32 PM EDT documented in this encounter Results * CT NEURO OUTSIDE IMAGES (10/29/2024 11:32 PM EDT) Anatomical Region Laterality Modality Computed Tomogra phy 10/29/2024 11:3 2 PM EDT External Provider IMG CT PROCEDURES [...] documented as of this encounter Care Teams Surgery Teacher Relationship Specialty Start Date End Date Aman Hernandez MD 2[address] [facility] 125 [place] [address] PCP - General Family Medicine 06/18/21 documented as of this encounter
--- OUTSIDE RECORDS SUMMARY | 2024-12-14 01:06 | XMS_ITS | Encounter Summary ---
Author Organization [facility] Address [address] [place] [address] Care Team Providers Care Director Communications Name Role Phone Aman Hernandez MD Primary Care Provider Encounter Details Date Type Department Care Team (Late st Contact Info) Description 10/31/2024 Lab Requisition [facility] [address] [place] [address] Benito Waggoner MD [address] [facility] 100 [place] [address] Encounter for general adult medical examination without abnormal findings Social History Tobacco Use Types Packs/Day Years [...] time in the past 12 m [facility], were you homeless or living in a snf (including now)? Patient unable to answer 10/31/2024 [facility] Utilities Answer Date Recorded In the [...] Author Low Risk 11/03/2024 8:00 PM EDT Rosi Angeles * Question Answer Date of Assessment Author 1. Wish to be (Past 1 Month) Yes 025 8:00 PM EDT Manuelito Angeles 2. Non-Specific Active Suici john Thoughts (Past 1 Month) No 11/03/2024 8:00 PM EDT Manuelito Angeles 6. Suicidal Behavior (Lifetime) No 8:00 PM EDT Manuelito Angeles documented as of this encounter Plan of Treatment Upcoming Encounters Date Type Department Care Team (Late st Contact Info) Description 12/15/2024 12:00 PM EDT Appointment [facility] Vascular Lab [address] [place] [address] 12/15/2024 1:30 PM EDT Office Visit [facility] [address], 1st [place] [address] Raymond Nuñez MD [address] [place] [address] 12/30/2024 1:00 PM EST Office Visit [facility] Otolaryngology [address], 3rd [place] [address] Yobani Benoit MD [address] [place] [address] 05/24/2025 2:30 PM EDT Office Visit [facility] Eye Care [address] [place] [address] Navya Woody MD [address] [place] [address] 06/07/2025 2:00 PM EDT [facility] [address], 1st [place] [address] Haseeb Dias MD [address] [place] [address] documented as of this encounter Procedures Procedure Name Priority Date/Time Associated Diagnosis Comments MULTI DRUG RESISTANCE TEST Routine 10/31/2024 5:30 PM EDT Encounter for general adult medical examination without abnormal findings documented in this encounter Results * Multi Drug Resistance Test (10/31/2024 5:30 PM EDT) Culture No growth at day 1 11/01/2024 8:21 PM EDT [facility] Swab (Nares and Marley Rectal) 10/31/2024 5:30 PM EDT 10/31/2024 6:42 PM EDT Narrative [facility] - 11/01/2024 8:21 PM EDT This test was developed and its performance characteristics determined by the [facility]. Although the media is FDA-approved, it is not FDA-approved for all specimen types submitted. The FDA has determined that such clearance or approval is not necessary. This test is used for surveillance purposes. It should not be regarded as investigational or for research. The [facility] is certified under the Clinical Laboratory Improvement Amendments of 1988 (CLIA-88) as qualified to perform high complexity clinical laboratory testing. Benito Waggoner MD LAB MICROBIOLOGY - GEN ERAL ORDERABLES Final Result [facility] [address] [place] [address] documented in this encounter Visit Diagnoses Diagnosis Encounter for general adult medical examination without abnormal findings documented in this encounter Additional Health Concerns [...] as of this encounter Care Teams Director Communications Relationship Specialty Start Date End Date Aman Hernandez MD [address] [address] PCP - General Family Medicine 06/18/21 documented as of this encounter
--- OUTSIDE RECORDS SUMMARY | 2024-12-14 01:06 | XMS_ITS | Encounter Summary ---
Author Organization [facility] Address [address] [place] [address] Care Team Providers Care Parole Officer Name Role Phone Aman Hernandez MD Primary Care Provider Encounter Details Date Type Department Care Team (Late st Contact Info) Description 10/30/2024 Ophth Exam [facility] [address] [place] [address] Shannon Mack MD [address] [place] [address] Social History Tobacco Use Types [...] now)? Patient unable to answer 10/31/2024 [facility] Utilities Answer Date Recorded In the past 12 months has th e [employer], gas, oil, or water company threatened to [...] Vascular Lab [address] [place] [address] 12/15/2024 1:30 PM EDT Office Visit [facility] [address], 1st [place] [address] Raymond Nuñez MD [address] [facility] [address] [place] [address] 12/30/2024 1:00 PM EST [facility] Otol[facility]ology [address], 3rd [place] [address] Yobani Benoit MD [address] [place] [address] 05/24/2025 2:30 PM EDT Office Visit [facility] Care [address] [facility] [place] [address] Navya Woody MD [address] [facility] [address] [place] [address] 06/07/2025 2:00 PM EDT Consult [facility] [address], 1[address] [place] [address] Haseeb Dias MD [address] [facility] [address] [place] [address] documented as of this encounter [...] documented as of this encounter Care Teams Parole Officer Relationship Specialty Start Date End Date Aman Hernandez MD [address] [facility] 125 [place] [address] PCP - General Family Medicine 06/18/21 documented as of this encounter
--- OUTSIDE RECORDS SUMMARY | 2024-12-14 01:06 | XMS_ITS | Encounter Summary ---
Author Organization [facility] Address [address] [place] [address] Care Team Providers Care Order Expediter Name Role Phone Aman Hernandez MD Primary Care Provider Encounter Details Date Type Department Care Team (Latest Contact Info) Description 10/30/2024 Travel Social History Tobacco Use Types Packs/Day [...] time in the past 12 m [facility], were you homeless or living in a mcfp (including now)? Patient unable to answer 10/31/2024 [facility] Utilities Answer Date Recorded In [...] Vascular Lab [address] [place] [address] 12/15/2024 1:30 PM EDT Office Visit [facility] [address], 1st [place] [address] Raymond Nuñez MD [address] [facility] [address] [place] [address] 12/30/2024 1:00 PM EST Office Visit [facility] Otolaryngology [address], 3rd [place] [address] Yobani Benoit MD [address] [place] [address] 05/24/2025 2:30 PM EDT Office Visit [facility] [address] [place] [address] Navya Woody MD [address] [facility] [address] [place] [address] 06/07/2025 2:00 PM EDT Consult [facility] [address], 1st [place] [address] Haseeb Dias MD [address] [facility] [address] [place] [address] documented as of this encounter [...] documented as of this encounter Care Teams Order Expediter Relationship Specialty Start Date End Date Aman Hernandez MD [address] [facility] 125 [place] [address] PCP - General Family Medicine 06/18/21 documented as of this encounter
--- OUTSIDE RECORDS SUMMARY | 2024-12-14 01:06 | XMS_ITS | Encounter Summary ---
Author Organization [facility] Address [address] [place] [address] Care Team Providers Care Fact Checker Name Role Phone Aman Hernandez MD Primary Care Provider Encounter Details Date Type Department Care Team (Late st Contact Info) Description 10/30/2024 Orders Only External Location [address] [place] [address] Provider, External Social History Tobacco Use Types [...] any time in the past 12 m [facility], were you homeless or living in a correction (including now)? Patient unable to answer 10/31/2024 [facility] Utilities Answer Date Recorded In [...] Date of Assessment Author No Risk Indicated 11/03/2024 7:44 AM EDT Emanuel Villavicencio RN * Question Answer Date of Assessment Author 1. Wish to be (Past 1 Month) No 025 7:44 AM EDT Emanuel Villavicencio RN 2. Non-Specific Active Suici john Thoughts (Past 1 Month) No 11/03/2024 7:44 AM EDT Hallie Villavicencio RN 6. Suicidal Behavior (Lifetime) No 7:44 AM EDT Emanuel Villavicencio RN documented as of this encounter Plan of Treatment Upcoming Encounters Date Type Department Care Team (Late st Contact Info) Description 12/15/2024 12:00 PM EDT Appointment [facility] Vascular Lab [address] [place] [address] 12/15/2024 1:30 PM EDT Office Visit [facility] [address], 1st [place] [address] Raymond Nuñez MD [address] [place] [address] 12/30/2024 1:00 PM EST Office Visit [facility] Otolaryngology [address], 3rd [place] [address] Yobani Benoit MD [address] [place] [address] 05/24/2025 2:30 PM EDT Office Visit [facility] Eye Care [address] [place] [address] Navya Woody MD [address] [place] [address] 06/07/2025 2:00 PM EDT Consult [place] [facility] [address], 1st [place] [address] Haseeb Dias MD [address] [place] [address] documented as of this encounter Procedures Procedure Name Priority Date/Time Associated Diagnosis Comments XR OUTSIDE IMAGES 10/30/2024 1:15 AM EDT documented in this encounter Results * XR OUTSIDE IMAGES (10/30/2024 1:15 AM EDT) Anatomical Region Laterality Modality Radiographic Carlene ging 10/30/2024 1:15 AM EDT us External Provider IMG XR PROCEDURES Final Result documented in [...] documented as of this encounter Care Teams Fact Checker Relationship Specialty Start Date End Date Amna Hernandez MD [address] [place] [address] PCP - General Family Medicine 06/18/21 documented as of this encounter
--- OUTSIDE RECORDS SUMMARY | 2024-12-14 01:07 | XMS_ITS | Encounter Summary ---
Author Organization [facility] Address [address] [place] [address] Care Team Providers Care Item Repair Manager Name Role Phone Aman Hernandez MD Primary Care Provider Encounter Details Date Type Department Care Team (Late st Contact Info) Description 10/29/2024 Orders Only External Location [address] [place] [address] Provider, External Social History Tobacco Use Types [...] any time in the past 12 m [facility], were you homeless or living in a prison (including now)? Patient unable to answer 10/31/2024 [facility] Utilities Answer Date Recorded In the [...] Vascular Lab [address] [place] [address] 12/15/2024 1:30 PM EDT Office Visit [facility] [address], 1st [place] [address] Raymond Nuñez MD [address] [place] [address] 12/30/2024 1:00 PM EST Office Visit [facility] Otolaryngology [address], 3rd [place] [address] Yobani Benoit MD [address] [place] [address] 05/24/2025 2:30 PM EDT Office Visit [facility] Eye Care [address] [place] [address] Navya Woody MD [address] [place] [address] 06/07/2025 2:00 PM EDT Consult [facility] [address], [address] [place] [address] Haseeb Dias MD [address] [place] [address] documented as of this encounter Procedures Procedure Name Priority Date/Time Associated Diagnosis Comments CT NEURO OUTSIDE IMAGES 10/29/2024 11:43 PM EDT documented in this encounter Results * CT NEURO OUTSIDE IMAGES (10/29/2024 11:43 PM EDT) Anatomical Region Laterality Modality Computed Tomogra phy 10/29/2024 11:4 3 PM EDT External Provider IMG CT PROCEDURES [...] documented as of this encounter Care Teams Item Repair Manager Relationship Specialty Start Date End Date Aman Hernandez MD 2[address] [facility] 125 [place] [address] PCP - General Family Medicine 06/18/21 documented as of this encounter
--- OUTSIDE RECORDS SUMMARY | 2024-12-14 01:07 | XMS_ITS | Encounter Summary ---
Author Organization [facility] Address [address] [place] [address] Care Team Providers Care Foreign Legal Consultant Name Role Phone Aman Hernandez MD Primary Care Provider Encounter Details Date Type Department Care Team (Late st Contact Info) Description 10/29/2024 Orders Only External Location [address] [place] [address] Provider, External Social History Tobacco Use Types [...] (including now)? Patient unable to answer 10/31/2024 [facility] Utilities Answer Date Recorded In the past [...] Vascular Lab [address] [place] [address] 12/15/2024 1:30 PM EDT Office Visit [facility] [address], 1st [place] [address] Raymond Nuñez MD [address] [place] [address] 12/30/2024 1:00 PM EST Office Visit [facility] Otolaryngology [address], 3rd [place] [address] Yobani Benoit MD [address] [place] [address] 05/24/2025 2:30 PM EDT Office Visit [facility] Eye Care [address] [place] [address] Navya Woody MD [address] [place] [address] 06/07/2025 2:00 PM EDT Consult [facility] [address], [address] [place] [address] Haseeb Dias MD [address] [place] [address] documented as of this encounter Procedures Procedure Name Priority Date/Time Associated Diagnosis Comments CT OUTSIDE IMAGES 10/29/2024 11:39 PM EDT documented in this encounter Results * CT OUTSIDE IMAGES (10/29/2024 11:39 PM [...] documented as of this encounter Care Teams Foreign Legal Consultant Relationship Specialty Start Date End Date Aman Hernandez MD [address] [facility] 125 [place] [address] PCP - General Family Medicine 06/18/21 documented as of this encounter
--- OUTSIDE RECORDS SUMMARY | 2024-12-14 01:07 | XMS_ITS | Encounter Summary ---
Author Organization [facility] Address [address] [place] [address] Care Team Providers Care Logistics Vice President Name Role Phone Yonny Scott MD Primary Care Provider + [phone] Encounter Details Date Type Department Care Team (Late st Contact Info) Description 12/06/2024 Telephone [facility] NEUROLOGY [address] [facility] [address] [place] [address] Julissa Kenney, COMBAT INFORMATION CENTER OFFICER [address] [facility] [address] [address] Social History Tobacco Use Types Packs/Day Years Used Date Smoking Tobacco: Former Cigarettes 0.3 50 Passive Smoke Exposure: Past Smokeless Tobacco: Never Alcohol Use Standard Drinks/Week Comments Not Currently 21 (1 standard drink = 0.6 oz pu re alcohol) [facility] Utilities Answer Date Recorded In the past 12 months has [employer], oil, or water [employer] threatened to shut off services in your [...] GED or equivalent No 07/20/2024 Preferred Language Scottish 07/20/2024 PHQ-2 Answer Date Recorded Patient Health Questionnaire-2 Score 0 09/01/2024 Comments No Sex and Gender Information Value Date Recorded Sex Assigned at Not on file Legal Sex Female 10:09 AM EDT Gender Identity Not on file Sexual Orientation Not on file documented as of this encounter Miscellaneous Notes * Telephone Encounter - Era Coleman, Taz Rep - 12/06/2024 11:31 AM EDT CALLED PT ON 12/06/24. NO ANSWER, LEFT VMAIL FOR THE PT TO CALL THE OFFICE IF THEY WOULD LIKE TO BERESCHEDULED FOR THEIR NO SHOW APPT. documented in this encounter Plan of Treatment Not on file documented as of this encounter Visit Diagnoses Not on filedocumented in this encounter Care Teams Logistics Vice President Relationship Specialty Start Date End Date Yonny Scott MD [facility] [address] [address] PCP - General Adolescent Medicine 07/19/24 documented as of this encounter
--- OUTSIDE RECORDS SUMMARY | 2024-12-14 01:07 | XMS_ITS | Encounter Summary ---
Author Organization [facility] Address [address] [place] [address] Care Team Providers Care 2Nd Grade Teacher Name Role Phone Yonny Scott MD Primary Care Provider + [phone] Encounter Details Date Type Department Care Team (Late st Contact Info) Description 12/06/2024 Telephone [facility] NEUROLOGY [address] [facility] [address] [place] [address] Julissa Kenney, MEDICAL SUPPORT ASSISTANT [address] [facility] [address] [address] Social History Tobacco Use Types Packs/Day Years Used Date Smoking Tobacco: Former Cigarettes 0.3 50 Passive Smoke Exposure: Past Smokeless Tobacco: Never Alcohol Use Standard Drinks/Week Comments Not Currently 21 (1 standard drink = 0.6 oz pu re alcohol) [facility] Utilities Answer Date Recorded In the past 12 months has [employer], oil, or water [employer] threatened to shut off services in [...] GED or equivalent No 07/20/2024 Preferred Language Colombian 07/20/2024 PHQ-2 Answer Date Recorded Patient Health Questionnaire-2 Score 0 09/01/2024 Comments No Sex and Gender Information Value Date Recorded Sex Assigned at Not on file Legal Sex Female 10:09 AM EDT Gender Identity Not on file Sexual Orientation Not on file documented as of this encounter Miscellaneous Notes * Telephone Encounter - Era Coleman, Taz Rep - 12/06/2024 11:06 AM EDT CALLED PT ON 12/06/24. NO ANSWER, NOT AVAILABLE TO LEAVE VMAIL. CALLED TO SEE IF THE PT WANTED TO GET RESCHEDULED FOR THEIR NO SHOW APPT. documented in this encounter Plan of Treatment Not on file documented as of this encounter Visit Diagnoses Not on filedocumented in this encounter Care Teams 2Nd Grade Teacher Relationship Specialty Start Date End Date Yonny Scott MD [facility] [address] [address] PCP - General Adolescent Medicine 07/19/24 documented as of this encounter
--- OUTSIDE RECORDS SUMMARY | 2024-12-14 01:07 | XMS_ITS | Encounter Summary ---
Author Organization [facility] Address [address] [place] [address] Care Team Providers Care Distance Learning Coordinator Name Role Phone Aman Hernandez MD Primary Care Provider Encounter Details Date Type Department Care Team (Late st Contact Info) Description 10/29/2024 Orders Only External Location [address] [place] [address] Provider, External Social History Tobacco Use Types [...] (including now)? Patient unable to answer 10/31/2024 [facility] Utilities Answer Date Recorded In the [...] Vascular Lab [address] [place] [address] 12/15/2024 1:30 PM EDT Office Visit [facility] [address], [address] [place] [phone] Raymond Nuñez MD [address] [place] [address] 12/30/2024 1:00 PM EST Office Visit [facility] Otolaryngology [address], 3rd [place] [phone] Yobani Benoit MD [address] [place] [address] 05/24/2025 2:30 PM EDT Office Visit [facility] [address] [place] [phone] Navya Woody MD [address] [place] [address] 06/07/2025 2:00 PM EDT Consult [facility] [address], [address] [place] [address] Haseeb Dias MD [address] [place] [address] documented as of this encounter Procedures Procedure Name Priority Date/Time Associated Diagnosis Comments CT NEURO OUTSIDE IMAGES 10/29/2024 11:28 PM EDT documented in this encounter Results * CT NEURO OUTSIDE IMAGES (10/29/2024 11:28 PM EDT) Anatomical Region Laterality Modality Computed Tomogra phy 10/29/2024 11:2 8 PM EDT us External Provider IMG CT PROCEDURES Edited Resul t - Final documented in this encounter Visit Diagnoses Not [...] documented as of this encounter Care Teams Distance Learning Coordinator Relationship Specialty Start Date End Date Aman Hernandez MD [address] [address] PCP - General Family Medicine 06/18/21 documented as of this encounter
--- OUTSIDE RECORDS SUMMARY | 2024-12-14 01:07 | XMS_ITS | Encounter Summary ---
Author Organization [facility] Address [address] [place] [address] Care Team Providers Care Rn Supplemental Name Role Phone Aman Hernandez MD Primary Care Provider Encounter Details Date Type Department Care Team (Late st Contact Info) Description 10/29/2024 Orders Only External Location [address] [place] [address] Provider, External Social History Tobacco Use Types [...] (including now)? Patient unable to answer 10/31/2024 [facility] Utilities Answer Date Recorded In the [...] Vascular Lab [address] [place] [address] 12/15/2024 1:30 PM EDT Office Visit [facility] [address], [address] [place] [phone] Raymond Nuñez MD [address] [place] [address] 12/30/2024 1:00 PM EST Office Visit [facility] Otolaryngology [address], 3[address] [place] [address] Yobani Benoit MD [address] [place] [address] 05/24/2025 2:30 PM EDT Office Visit [facility] [address] [place] [address] Navya Woody MD [address] [place] [address] 06/07/2025 2:00 PM EDT Consult [facility] [address], [address] [place] [address] Haseeb Dias MD [address] [place] [address] documented as of this encounter [...] documented as of this encounter Care Teams Rn Supplemental Relationship Specialty Start Date End Date Aman Hernandez MD [address] [address] PCP - General Family Medicine 06/18/21 documented as of this encounter
--- OUTSIDE RECORDS SUMMARY | 2024-12-14 01:07 | XMS_ITS | Encounter Summary ---
Author Organization Address [address] [place] [address] Care Team Providers Care Chief Sustainability Officer Name Role Phone Aman Hernandez MD Primary Care Provider Encounter Details Date Type Department Care Team (Late st Contact Info) Description 10/29/2024 Orders Only External Location [address] [place] [address] Provider, External Social History Tobacco Use Types [...] any time in the past 12 m [facility], were you homeless or living in [...] Vascular Lab [address] [place] [address] 12/15/2024 1:30 PM EDT Office Visit [facility] [address], 1st [place] [address] Raymond Nuñez MD [address] [place] [address] 12/30/2024 1:00 PM EST Office Visit [facility] Otolaryngology [address], 3rd [place] [address] Yobani Benoit MD [address] [place] [address] 05/24/2025 2:30 PM EDT Office Visit [facility] Eye [facility] [address] [place] [address] Navya Woody MD [address] [place] [address] 06/07/2025 2:00 PM EDT Consult [facility] [address], [address] [place] [address] Haseeb Dias MD [address] [place] [address] documented as of this encounter Procedures Procedure Name Priority Date/Time Associated Diagnosis Comments CT NEURO OUTSIDE IMAGES 10/29/2024 11:34 PM EDT documented in this encounter Results * CT NEURO OUTSIDE IMAGES (10/29/2024 11:34 PM EDT) Anatomical Region Laterality Modality Computed Tomogra phy 10/29/2024 11:3 4 PM EDT us External Provider IMG CT [...] documented as of this encounter Care Teams Chief Sustainability Officer Relationship Specialty Start Date End Date Aman Hernandez MD [address] [address] PCP - General Family Medicine 06/18/21 documented as of this encounter
--- OUTSIDE RECORDS SUMMARY | 2024-12-14 01:07 | XMS_ITS | Encounter Summary ---
Author Organization [facility] Address [address] [place] [address] Care Team Providers Care Loading Dock Hand Name Role Phone Aman Hernandez MD Primary Care Provider Encounter Details Date Type Department Care Team (Late st Contact Info) Description 10/29/2024 Orders Only External Location [address] [place] [address] Provider, External Social History Tobacco Use Types [...] time in the past 12 m [facility], were you homeless or living in a correction (including now)? Patient unable to answer 10/31/2024 [facility] Utilities Answer Date Recorded In the [...] EDT Appointment [facility] Lab [address] [place] [address] 12/15/2024 1:30 PM EDT Office Visit [facility] [address], 1st [place] [address] Raymond Nuñez MD [address] [place] [address] 12/30/2024 1:00 PM EST Office Visit [facility] Otolaryngology [address] 3rd [place] [address] Yobani Benoit MD [address] [place] [address] 05/24/2025 2:30 PM EDT Office Visit [facility] Eye Care [address] [place] [address] Navya Woody MD [address] [place] [address] 06/07/2025 2:00 PM EDT Consult [facility] [address], [address] [place] [address] Haseeb Dias MD [address] [place] [address] documented as of this encounter Procedures Procedure Name Priority Date/Time Associated Diagnosis Comments CT NEURO OUTSIDE IMAGES 10/29/2024 11:23 PM EDT documented in this encounter Results * CT NEURO OUTSIDE IMAGES (10/29/2024 11:23 PM EDT) Anatomical Region Laterality Modality Computed Tomogra phy 10/29/2024 11:2 3 PM EDT us External Provider IMG [...] documented as of this encounter Care Teams Loading Dock Hand Relationship Specialty Start Date End Date Aman Hernandez MD [address] [address] PCP - General Family Medicine 06/18/21 documented as of this encounter
--- OUTSIDE RECORDS SUMMARY | 2024-12-14 01:07 | XMS_ITS | Encounter Summary ---
Author Organization [facility] Address [address] [place] [address] Care Team Providers Care Canceling Machine Operator Name Role Phone Aman Hernandez MD Primary Care Provider Encounter Details Date Type Department Care Team (Late st Contact Info) Description 10/29/2024 Orders Only External Location [address] [place] [address] Provider, External Social History Tobacco Use Types [...] any time in the past 12 m [facility], were you homeless or living in a [facility] (including now)? Patient unable to answer 10/31/2024 [facility] Utilities Answer Date Recorded In [...] Vascular Lab [address] [place] [address] 12/15/2024 1:30 PM EDT Office Visit [facility] [address] [place] [address] Raymond Nuñez MD [address] [place] [address] 12/30/2024 1:00 PM EST Office Visit [facility] Otolaryngology [address], 3[address] [place] [address] Yobani Benoit MD [address] [place] [address] 05/24/2025 2:30 PM EDT Office Visit [facility] Eye Care [address] [place] [address] Navya Woody MD [address] [place] [address] 06/07/2025 2:00 PM EDT Consult [facility] [address], [address] [place] [address] Haseeb Dias MD [address] [place] [address] documented as of this encounter Procedures Procedure Name Priority Date/Time Associated Diagnosis Comments CT NEURO OUTSIDE IMAGES 10/29/2024 11:25 PM EDT documented in this encounter Results * CT NEURO OUTSIDE IMAGES (10/29/2024 11:25 PM EDT) Anatomical Region Laterality Modality Computed Tomogra phy 10/29/2024 11:2 5 PM EDT External Provider IMG CT PROCEDURES [...] documented as of this encounter Care Teams Canceling Machine Operator Relationship Specialty Start Date End Date Aman Hernandez MD [address] [place] [address] PCP - General Family Medicine 06/18/21 documented as of this encounter
[2024-12-14 01:12] VITALS: BP 179/99; PULSE 89; RESP 16; O2SAT 95
[2024-12-14] MEDS: SODIUM CHLORIDE 0.9% 10ML SYR (RAD ONLY) 10 ML IV (01:42)
[2024-12-14] MEDS: IOPAMIDOL-370 (76%);100ML BOTTLE 75 ML IV (01:42)
[2024-12-14 01:52] LABS: Microscopic, Urine URINE MICROSCOPIC (MICROSCOPIC)
[2024-12-14 01:53] LABS: Bilirubin,Urine Negative (Negative); Color,Urine YELLOW (Yellow); Glucose,Urine (UA) Negative (Negative); Ketones,Urine Negative (Negative); Leukocyte Esterase,Urine Negative (Negative); PH,Urine 5.5 (5.0-8.5); Protein,Urine Negative (Negative); Specific Gravity, Urine 1.025 (1.005-1.030); Urobilinogen,Urine 0.2 EU/dl (0.2)
[2024-12-14 02:11] LABS: RBC,Urine Occasional #/hpf (0-3); Squamous Epithelial Cell,Urine Occasional #/hpf (0-5)
[2024-12-14 02:43] VITALS: BP 135/68; PULSE 91; RESP 16; O2SAT 97
[2024-12-14 02:57] VITALS: BP 135/68; PULSE 85; RESP 16; TEMP 37; O2SAT 97
--- NOTE | 2024-12-14 02:58 | PC.NURSE ---
Report called to Ron Selby.
--- NOTE | 2024-12-14 03:03 | PC.NURSE ---
Pants, shoes, and plaid cardigan placed in pt belongings bag.
--- NOTE | 2024-12-14 03:21 | PC.NURSE ---
PT ambulated to the restroom x2 assistance. Proper footwear applied. PT urinated
== END 2024-12-14 03:21 ==
PROVIDERS: Emergency Provider Emergency Medicine
DX: R10.32 Left lower quadrant pain (principal); I10 Essential (primary) hypertension; E78.5 Hyperlipidemia, unspecified; Z86.73 Personal history of transient ischemic attack (TIA), and cerebral infarction without residual deficits; Z87.891 Personal history of nicotine dependence
CPT/HCPCS: 74177; 80053; 81001; 83690; 85025; 85610; 96374; 99285; J1885; Q9967

== ENCOUNTER 2024-12-19 12:01 | Emergency (ER) | payer MEDICARE, SELFPAY ==
--- OUTSIDE RECORDS SUMMARY | 2024-07-25 07:45 | XMS_ITS ---
[facility] Address [address] [facility] [address] [facility] [address] [place] [address] Care Team Providers Care Data Analytics Architect Name Role Phone Yonny Scott Primary Care Provider Reanna Perdomo [phone] REASON FOR VISIT 2 wk FU Encounters Encounter Location Date Provider Diagnosis [facility] [address] [facility] [address] [facility] [address] [facility] [address] [place], [place] [address] 07/25/2024 Yonny Scott Plan Of Treatment No Information Progress Notes * [place] JORDAN RaeDOB:[birth year] (64 yo F)Acc No.[id number]:07/25/2024 Progress Notes Patient: [place] CHISHOLM Provider: Day Scott MD :[id number] A ge:63 Y S ex:Female Date:07/25/2024 [address]1944 [address] [id number] Subjective: * Chief Complaints: * 1 . 2 wk FU. * Medical History: Objective: * Vitals: Assessment: Plan: * Treatment: * * Electronic signature of William Scott MD FAAP on 12/19/2024 at 12:44 PM EDT Sign off status: Pending * Provider: Day Scott MD Date: 0 07/25/2024 Generated for Printi ng/Faxing/eTransmitting on: 1 12:44 PM EDT
--- OUTSIDE RECORDS SUMMARY | 2024-10-29 20:00 | XMS_ITS | Clinical Summary ---
Author Organization Unknown Care Team Providers Care Metal Washing Machine Operator Name Role Phone REED KAUR, WILLI Unavailable Unavailable JARED PT, AMY Unavailable Unavailable CURTIS OT, BALJIT Unavailable Unavailable BRIDGET SW, RAFAELA Unavailable Unavailable ORA CATIA DESIGNER, DAMARIS Unavailable Unavailable MIRIAM CLEMENTSN, SHANTANU Unavailable Unavailable OSMIN RN, RANDA Unavailable Unavailable Payers Payer Name Policy Type Policy Number Effective Date Expira tion Date HUMANA.MA.PPO.C.AUTH [id number] Problems Condition Name Condition Details Condition Category [...] 08-03 00:00: 00 ATHSCL HEART DISEASE OF [place] CORONARY ARTERY W/O ANG PCTRS Active 08-03 [...] ABUSE, UNCOMPLICATE D Active 08-03 00:00: 00 SKILLED NURSING (CURRENT) USE 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 ICS/ANTIPLAT ELETS Active [...] 1 mg tablet 4-04 00:00: 00 Yes [id number] RESTLESS LEGS 1 tablet 3 TIMES DAILY 1 tablet 3 TIMES DAILY (route: oral) Med Classific ation: Central Nervous System Agents Aspirin Childrens 81 mg chewable tablet 07-12 00:00: 00 Yes [id number] HEART 1 tablet DAILY 1 tablet DAILY (route: oral) Med Classific ation: Hematolog ical Agents atorvastati n 40 mg tablet 07-12 00:00: 00 Yes [id number] CHOLESTEROL 1 tablet BEDTIME 1 tablet BEDTIME (route: oral) Med Classific ation: Cardiovas cular Therapy Agents clopidogrel 75 mg tablet 07-12 00:00: 00 Yes [id number] HEART 1 tablet DAILY 1 tablet DAILY (route: oral) Med Classific ation: Hematolog ical Agents levothyroxi ne 50 mcg tablet 07-12 00:00: 00 Yes [id number] THYROID 1 tablet DAILY 1 tablet DAILY (route: oral) Med Classific ation: Endocrine lisinopril 20 mg tablet 07-12 00:00: 00 Yes [id number] BLOOD PRESSURE 1 tablet DAILY 1 tablet DAILY (route: oral) Med Classific ation: Cardiovas cular Therapy Agents amlodipine 5 mg tablet 08-03 00:00: 00 Yes [id number] HTN 1 tablet 2 TIMES DAILY 1 tablet 2 TIMES DAILY (route: oral) Med Classific ation: Cardiovas cular Therapy Agents atorvastati n 80 mg tablet 08-03 00:00: 00 Yes [id number] HLD 1 tablet DAILY 1 tablet DAILY (route: oral) Med Classific ation: Cardiovas cular Therapy Agents lisinopril 10 mg tablet 08-03 00:00: 00 Yes [id number] HTN 1 tablet 2 TIMES DAILY 1 tablet 2 TIMES DAILY (route: oral) Med Classific ation: Cardiovas cular Therapy Agents oxybutynin chloride 5 mg tablet 08-03 00:00: 00 Yes [id number] OAB 1 tablet DAILY 1 tablet DAILY (route: oral) Med Classific ation: Genitouri nary Therapy Protonix 20 mg tablet,leeroy yed release 08-03 00:00: 00 Yes [id number] GI 1 tablet DAILY 1 tablet DAILY [...] TO EVALUATE, OBSERVE / ASSESS, AND MONITOR, PHARMACY BENEFITS COORDINATOR TO OBSERVE AND MONITOR, PROVIDE SKILLED THERAPEUTIC [...] H YGIENE/GROOMING (OT/DANIEL) [code = PERSONAL HYGIENE/GROOMING (OT/PHARMACY BENEFITS COORDINATOR)] Future Scheduled Test DRESSING ( OT/DANIEL) [code = DRESSING (OT/PHARMACY BENEFITS COORDINATOR)] Future Scheduled Test ACTIVITIES OF DAILY LIVING (OT/DANIEL) [code = ACTIVITIES OF DAILY LIVING (OT/PHARMACY BENEFITS COORDINATOR)] Future Scheduled Test BATH/SHOWE R TRANSFER (OT/PHARMACY BENEFITS COORDINATOR) [code = BATH/SHOWER TRANSFER (OT/PHARMACY BENEFITS COORDINATOR)] Future Scheduled Test HOME ACTIV ITY / EXERCISE PROGRAM (OT/DANIEL) [code = HOME ACTIVITY / EXERCISE PROGRAM (OT/DANIEL)] Future Scheduled Test POSTURAL C ONTROL/BALANCE (OT/DANIEL) [code = POSTURAL CONTROL/BALANCE (OT/DANIEL)] Future Scheduled Test FINE MOTOR COORDINATION (OT/DANIEL) [code = FINE MOTOR COORDINATION (OT/DANIEL)] Future Scheduled Test THERAPEUTI C EXERCISE (OT/DANIEL) [code = THERAPEUTIC EXERCISE (OT/PHARMACY BENEFITS COORDINATOR)] Future Scheduled Test OT / DANIEL T [...] End Date/Time Encounter Type Admission Type Attending [facility] Care [facility] Care Department Encounter ID Discharge Date Discharge Status Discharge Condition Discharge Reason Percent Goals Met 2024-10-02 00:00:00 2024-10-30 00:00:00 Outpatient RECERTIFIC ATION RANDA SOLORIO [facility] [id number] 2024-10-30 00:00:00 DISCHARGED /TRANSFERR ED TO A [facility] FOR INPATIENT CARE MODERATE ASSIST WITH TRANSFER/A MBULATION/ ADLS HH - DISCHARGE TO ACUTE CARE FACILITY 0.00
--- OUTSIDE RECORDS SUMMARY | 2024-10-29 20:00 | XMS_ITS | Clinical Summary ---
Author Organization Unknown Care Team Providers Care Commercial Ocean Clammer Name Role Phone REED KAUR, WILLI Unavailable Unavailable JARED PT, AMY Unavailable Unavailable CURTIS OT, BALJIT Unavailable Unavailable BRIDGET SW, RAFAELA Unavailable Unavailable ORA SHIP SUPERINTENDENT, DAMARIS Unavailable Unavailable MIRIAM CLEMENTSN, SHANTANU Unavailable Unavailable OSMIN RN, RANDA Unavailable Unavailable Payers Payer Name Policy Type Policy Number Effective Date Expira tion Date HUMANA.MA.PPO.C.[id number] Problems Condition Name Condition Details Condition Category [...] 08-03 00:00: 00 ATHSCL HEART DISEASE OF [place] CORONARY ARTERY W/O ANG PCTRS Active 08-03 [...] ABUSE, UNCOMPLICATE D Active 08-03 00:00: 00 RESIDENTIAL (CURRENT) USE 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 ICS/ANTIPLAT ELETS Active [...] 1 mg tablet 4-04 00:00: 00 Yes [id number] RESTLESS LEGS 1 tablet 3 TIMES DAILY 1 tablet 3 TIMES DAILY (route: oral) Med Classific ation: Central Nervous System Agents Aspirin Childrens 81 mg chewable tablet 07-12 00:00: 00 Yes [id number] HEART 1 tablet DAILY 1 tablet DAILY (route: oral) Med Classific ation: Hematolog ical Agents atorvastati n 40 mg tablet 07-12 00:00: 00 Yes [id number] CHOLESTEROL 1 tablet BEDTIME 1 tablet BEDTIME (route: oral) Med Classific ation: Cardiovas cular Therapy Agents clopidogrel 75 mg tablet 07-12 00:00: 00 Yes [id number] HEART 1 tablet DAILY 1 tablet DAILY (route: oral) Med Classific ation: Hematolog ical Agents levothyroxi ne 50 mcg tablet 07-12 00:00: 00 Yes [id number] THYROID 1 tablet DAILY 1 tablet DAILY (route: oral) Med Classific ation: Endocrine lisinopril 20 mg tablet 07-12 00:00: 00 Yes [id number] BLOOD PRESSURE 1 tablet DAILY 1 tablet DAILY (route: oral) Med Classific ation: Cardiovas cular Therapy Agents amlodipine 5 mg tablet 08-03 00:00: 00 Yes [id number] HTN 1 tablet 2 TIMES DAILY 1 tablet 2 TIMES DAILY (route: oral) Med Classific ation: Cardiovas cular Therapy Agents atorvastati n 80 mg tablet 08-03 00:00: 00 Yes [id number] HLD 1 tablet DAILY 1 tablet DAILY (route: oral) Med Classific ation: Cardiovas cular Therapy Agents lisinopril 10 mg tablet 08-03 00:00: 00 Yes [id number] HTN 1 tablet 2 TIMES DAILY 1 tablet 2 TIMES DAILY (route: oral) Med Classific ation: Cardiovas cular Therapy Agents oxybutynin chloride 5 mg tablet 08-03 00:00: 00 Yes [id number] OAB 1 tablet DAILY 1 tablet DAILY (route: oral) Med Classific ation: Genitouri nary Therapy Protonix 20 mg tablet,leeroy yed release 08-03 00:00: 00 Yes [id number] GI 1 tablet DAILY 1 tablet DAILY [...] TO EVALUATE, OBSERVE / ASSESS, AND MONITOR, DOT COMPLIANCE SPECIALIST TO OBSERVE AND MONITOR, PROVIDE SKILLED THERAPEUTIC [...] H YGIENE/GROOMING (OT/DANIEL) [code = PERSONAL HYGIENE/GROOMING (OT/DOT COMPLIANCE SPECIALIST)] Future Scheduled Test DRESSING ( OT/DANIEL) [code = DRESSING (OT/DOT COMPLIANCE SPECIALIST)] Future Scheduled Test ACTIVITIES OF DAILY LIVING (OT/DANIEL) [code = ACTIVITIES OF DAILY LIVING (OT/DOT COMPLIANCE SPECIALIST)] Future Scheduled Test BATH/SHOWE R TRANSFER (OT/DOT COMPLIANCE SPECIALIST) [code = BATH/SHOWER TRANSFER (OT/DOT COMPLIANCE SPECIALIST)] Future Scheduled Test HOME ACTIV ITY / EXERCISE PROGRAM (OT/DANIEL) [code = HOME ACTIVITY / EXERCISE PROGRAM (OT/DANIEL)] Future Scheduled Test POSTURAL C ONTROL/BALANCE (OT/DANIEL) [code = POSTURAL CONTROL/BALANCE (OT/DANIEL)] Future Scheduled Test FINE MOTOR COORDINATION (OT/DANIEL) [code = FINE MOTOR COORDINATION (OT/DANIEL)] Future Scheduled Test THERAPEUTI C EXERCISE (OT/DANIEL) [code = THERAPEUTIC EXERCISE (OT/DOT COMPLIANCE SPECIALIST)] Future Scheduled Test OT / DANIEL T [...] End Date/Time Encounter Type Admission Type Attending [facility] Care [facility] Care Department Encounter ID Discharge Date Discharge Status Discharge Condition Discharge Reason Percent Goals Met 2024-10-02 00:00:00 2024-10-30 00:00:00 Outpatient RECERTIFIC ATION RANDA SOLORIO [facility] [id number] 2024-10-30 00:00:00 DISCHARGED /TRANSFERR ED TO A [facility] FOR INPATIENT CARE MODERATE ASSIST WITH TRANSFER/A MBULATION/ ADLS HH - DISCHARGE TO ACUTE CARE FACILITY 0.00
--- OUTSIDE RECORDS SUMMARY | 2024-10-30 02:57 | XMS_ITS | Encounter Summary ---
Author Organization Healthcare Address [address] 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 Name Role Phone Aman Hernandez MD Primary Care Provider Reason for Referral * Consultation (Routine) - Closed Specialty Diagnoses / Procedures Referred By Contac t Referred To Contact Otolaryngology Diagnoses Fall, initial encounter Closed fracture of zygomatic arch, unspecified laterality, initial encounter Charles Velasco APRN [address] [facility] [address] [place] [address] Phone: tel: fax: [place] [facility] [address] [place] [address] Phone: tel: fax: Referral ID Status Reason Start Date Expiration Date V isits Requested Visits Authorized [id number] Closed Specialty Services Required 11/12/2024 05/14/2026 1 1 * Consultation (Routine) - Closed Specialty Diagnoses / Procedures Referred By Contac t Referred To Contact Neurosurgery Diagnoses Fall, initial encounter Traumatic brain injury, with unknown loss of consciousness status, initial encounter Charles Velasco APRN [id number] [place] [address] Phone: tel: fax: [place] [facility] [address], [address] [place] [address] Phone: tel: fax: Referral ID Status Reason Start Date Expiration Date V isits Requested Visits Authorized [id number] Closed Specialty Services Required 11/12/2024 05/14/2026 1 1 Scheduling Instructions [facility], [facility] Reason for Visit * Reason Comments Trauma Alert * Auth/Cert (Routine) Specialty Diagnoses / Procedures Referred By Contac t Referred To Contact Diagnoses Intraventricular hemorrhage (CMS/HCC) Fall, Retrobulbar hematoma, brain bleed Katharine Savage MD [address] [address] Phone: tel: fax: [facility] [address] [place] [address] Phone: tel: Referral ID Status Reason Start Date Expiration Date Visits Re quested Visits Authorized [id number] 1 1 Encounter Details Date Type Department Care Team (Latest Contact Info) Description 10/30/2024 2:57 AM EDT - 11/12/2024 4:07 PM EDT Hospital Encounter [facility] [address] [place] [address] Iker Reagan MD [address] [place] [address] Katharine Savage MD [address] [address] Isabelle Soto MD [address] [address] Micheal Espinoza MD [id number] [place] [address] Marilia Sagastume MD [id number] [place] [address] Dionne Jacobs MD [id number] [place] [address] Fall, initial encounter (Primary Dx); Intraventricular hemorrhage ([facility]/HCC); Electrolyte abnormality; ABLA (acute blood loss anemia); Closed fracture of right zygomatic arch, initial encounter (CMS/HCC); Hyperlipidemia, unspecified hyperlipidemia type; Traumatic brain injury, with unknown loss of consciousness status, initial encounter ([facility]); Acute respiratory failure with hypoxia; Hypertension, unspecified type; Injury of globe of eye, right, initial encounter; Debility; Closed fracture of zygomatic arch, unspecified laterality, initial encounter ([facility]/HCC); Retrobulbar hematoma; Brain bleed ([facility]) Discharge Disposition: Rehab Facility Social History Tobacco Use Types Packs/Day Years Used Date Smoking Tobacco: Former Cigarettes 1 40 Passive Smoke Exposure: Never Smokeless Tobacco: Never PHQ-2 Answer Date Recorded Patient Health Questionnaire-2 Score 6 05/22/2023 PHQ-9 Answer Date Recorded Patient Health Questionnaire-9 Score 24 05/22/2023 Humiliation, Afraid, Rape, a nd Kick questionnaire Answer Date Recorded Within the last year, have y ou been afraid of your partner or ex-partner? Patient unable to answer 10/31/2024 Within the last year, have y ou been humiliated or emotionally abused in other ways by your partner or ex-partner? Patient unable to answer 10/31/2024 Within the last year, have y ou been kicked, hit, slapped, or otherwise physically hurt by your partner or ex-partner? Patient unable to answer 10/31/2024 Within the last year, have y ou been raped or forced to have any kind of sexual activity by your partner or ex-partner? Patient unable to answer 10/31/2024 Overall Financial Resource Strain (CARDIA) Answe r Date Recorded How hard is it for you to pa y for the very basics like food, housing, medical care, and heating? Patient unable to answer 10/31/2024 Hunger Vital Sign Answer Date Recorded Within the past 12 months, y ou worried that your food would run out before you got the money to buy more. Patient unable to answer 10/31/2024 Within the past 12 months, t he food you bought just didn't last and you didn't have money to get more. Patient unable to answer 10/31/2024 PRAPARE - Transportation Answer Date Re corded In the past 12 months, has l ack of transportation kept you from medical appointments or from getting medications? Patient unable to answer 10/31/2024 In the past 12 months, has l ack of transportation kept you from meetings, work, or from getting things needed for daily living? Patient unable to answer 10/31/2024 Housing Stability Vital Sign Answer Luciano e Recorded In the last 12 months, was t here a time when you were not able to pay the mortgage or rent on time? Patient unable to answer 10/31/2024 Number of Times Moved in the Last Year Not on fi le 10/31/2024 At any time in the past 12 m [facility], were you homeless or living in a [place] (including now)? Patient unable to answer 10/31/2024 [facility] Utilities Answer Date Recorded In the past 12 months has th e electric, gas, oil, or water company threatened to shut off services in your home? Patient unable to answer 10/31/2024 Safety and Environment Answer Date Rubin rded Do you worry that your child may have been physically abused? No 05/22/2023 Do you worry that your child may have been sexua lly abused? No 05/22/2023 Are there any guns kept in o r around your home or where your child spends time? No 05/22/2023 Guns Unloaded or Locked Away Not on file Comments Unknown Sex and Gender Information Value Date Recorded Sex Assigned at Female 06/10/2021 3:35 PM EDT Legal Sex Female 8:23 PM EDT Gender Identity Female 06/10/2021 3:35 PM EDT Sexual Orientation Not on file documented as of this encounter Last Filed Vital Signs Vital Sign Reading Time Taken Comments Blood Pressure 101/58 11/12/2024 11:32 AM EDT Pulse 64 11/12/2024 11:32 AM EDT Temperature 36.6 C (97.8 F) 11/12/2024 11:32 AM EDT Respiratory Rate 16 11/11/2024 11:0 2 PM EDT Oxygen Saturation 98% 11/12/2024 11: 32 AM EDT Inhaled Oxygen Concentration - - Weight 62.1 kg (136 lb 14.5 oz) 11/07/2024 5:50 AM EDT Height 160 cm (5' 2.99 ) 10/30/2024 8:06 PM EDT Body Mass Index 24.26 10/30/2024 8:06 PM EDT documented in this encounter Functional Status * Calculated C-SSRS Risk Score (Lifetime/Recent) Answer Date of Assessment Author No Risk Indicated 11/11/2024 8:00 PM EDT Jazmin Hale RN * Question Answer Date of Assessment Author 1. Wish to be (Past 1 Month) No 025 8:00 PM EDT Jazmin Burton RN 2. Non-Specific Active Suici john Thoughts (Past 1 Month) No 11/11/2024 8:00 PM EDT Lexa Burton RN 6. Suicidal Behavior (Lifetime) No 8:00 PM EDT Jazmin Burton RN documented as of this encounter Discharge Instructions * Discharge Instructions* Charles Velasco APRN - 11/12/2024 1:10 PM EDT DVT prophylaxis: Hold AC/AP for 2 weeks (11/14) Procedures: 11/01: s/p ORIF R zygomatic arch fx and R orbital wall fx repair Mobility Restrictions: None Other Precautions: Concussion Protocol: Continue to monitor signs and symptoms: headache, confusion, lack of coordination, memory loss, n/v, dizziness, ringing in ears, sleepiness and excessive fatigue Sinus Precautions x 2 weeks (until 9/22) Wound Care: Facial Lacerations: - Use half-strength hydrogen peroxide on a Q-tip to clean the wound/sutures of crusting. Pat dry, then use thin layer of bacitracin twice daily on wound for 5 days. After 5 days, stop the antibiotic ointment, and use thin layer of Vaseline or Aquaphor until fully healed. - When showering, do not have wound in direct spray; let the soapy water run over the wound and do not scrub. Pat dry. May fully submerge in 3 days. -Once completely healed, use sunblock or physical protection (e.g., broad- brimmed hat) when out in the sun for 6 months to prevent hyperpigmentation. -Vitamin E or Mederma may be used in 1 month to reduce scarring. Incidental Findings: None Follow up: PCP: Follow up in 1-2 weeks post hospitalization for incidental findings and management of chronic conditions/medications ENT: Follow up 2 weeks after discharge. Clinic will call with appointment date and time. [address] [place] [address], Third Floor, [place] [address] # [phone] Ophtho: Follow up 11/21 @ 12:25. [address], [address] [place] [address] #[phone] Neurosurgery: Clinic will contact with appointment date and time, [address] [place] [address] First Floor, [address], [address], [place] [address], SGT: [facility] Clinic as needed ; [address] [place] [address] First Floor, [address] [address], #[phone]. Questions or Concerns and Appointments If there are questions or concerns after discharge from the hospital, please call [phone] and ask for [facility] Nurse. Working hours are Thursday - Thursday 8:00 AM to 4:00 PM. After hours, weekends and holidays please call [phone] and ask for the resident calibration tester for [facility]. For appointments please call [phone]. Medication requests should be made between the hours of 9:00 AM to 3:00 PM Thursday thru Thursday. Please note that based upon recent changes to [place] law related to prescribing opioid pain medications, our providers will not provide refills on controlled medications after your hospital discharge following a major surgery or trauma. [place] 218[place], [place] 201 KAR9:260. documented in this encounter Medications at Time of Discharge amLODIPine (Norvasc) 5 MG tabletIndications:E ssential (primary) hypertension Take 1 tablet (5 mg total) by mouth 1 (one) time each day. 30 tablet 5 06/10/2021 Aspirin Low Dose 81 MG EC tablet Take 1 tablet by mouth daily. 12/01/2022 atorvastatin (Lipitor) 40 MG tablet Take 1 tablet by mouth daily. 03/02/2023 bacitracin, 425g jar, 500 UNIT/GM ointment Apply to face BID 14 g 11/12/2024 baclofen 5 MG tablet Take 1 tablet by mouth 2 times a day. 14 tablet 11/12/2024 clopidogrel (Plavix) 75 MG tablet 1 tablet. 11/26/2022 erythromycin (Romycin) 5 MG/GM ophthalmic ointment Apply 1 Application to both eyes every 8 hours. 3.5 g 11/12/2024 FLUoxetine (PROzac) 20 MG capsule Take 1 capsule by mouth every morning. 09/21/2024 folic acid (Folvite) 800 MCG tablet Take 1 tablet by mouth daily. 09/26/2024 hydrOXYzine pamoate (Vistaril) 25 MG capsule Take 1 capsule by mouth every 8 hours as needed for itching. 15 capsule 11/12/2024 levothyroxine (Synthroid, Levoxyl) 75 MCG tablet Take 1 tablet by mouth daily. 04/14/2023 mirtazapine (Remeron) 15 MG tablet Take 1 tablet by mouth nightly. naloxone (Narcan) 4 mg/0.1 mL nasal spray 1. Give 1 spray in nostril for no/slow breathing or cannot wake after opioid use 2. Call 911 3. Repeat in other nostril if symptoms continue 1 each 11/12/2024 oxybutynin XL (Ditropan-XL) 5 MG 24 hr tablet Take 1 tablet by mouth daily. 12/03/2022 pramipexole (Mirapex) 1 MG tablet Take 1 tablet by mouth 3 times a day as needed. QUEtiapine (SEROquel) 100 MG tablet Take 1.5 tablets by mouth nightly. HYDROcodone-acetami nophen (Wilson) 5-325 MG tablet Take 1 tablet by mouth every 6 hours as needed. 05/24/2024 lisinopril 20 MG tablet Take 1 tablet by mouth daily. 10/18/2024 acetaminophen (Tylenol) 500 MG tablet Take 1 tablet by mouth 4 times a day for 7 days. 28 tablet 11/12/2024 12/02/19 25 megestrol (Megace) 40 MG/ML suspension Take 10 mL by mouth daily for 7 days. Shake well just before you measure a dose. Measure with a special dose-measuring spoon or medicine cup, not with a regular table spoon. If you do not have a dose-measuring device, ask your pharmacist for one. 70 mL 11/12/2024 12/02/19 25 tamsulosin (Flomax) 0.4 MG 24 hr capsule Take 1 capsule by mouth 1 time each day with dinner. 30 capsule 11/12/2024 12/16/19 25 butalbital-acetamin ophen-caffeine 50-325-40 MG tablet Take 1 tablet by mouth every 6 hours as needed for headaches for up to 3 days. 12 tablet 11/12/2024 11/16/19 25 ondansetron ODT (Zofran-ODT) 4 MG disintegrating tablet Dissolve 1 tablet on the tongue every 6 hours as needed for nausea or vomiting for up to 5 days. 20 tablet 11/12/2024 11/18/19 25 oxyCODONE (Roxicodone) 5 MG immediate release tablet Take 1 tablet by mouth every 8 hours as needed for severe pain for up to 3 days. 9 tablet 11/12/2024 11/16/19 25 polyethylene glycol (Miralax) 17 g packet Take 17 g by mouth 2 times a day for 5 days. 10 packet 11/12/2024 11/18/19 25 senna-docusate (Marley-Colace) 8.6-50 MG tablet Take 2 tablets by mouth 2 times a day for 5 days. 20 tablet 11/12/2024 11/18/19 documented as of this encounter Miscellaneous Notes * Adele London, LUANNE - 11/12/2024 1:53 PM EDT Images from the original note were not included. [id number] Oxycodone IMPORTANT WARNING: Oxycodone may be habit-forming. Take oxycodone exactly as directed. Do not take more of it, take itmore often, or take it in a different way than directed by your doctor. While taking oxycodone, discuss with your healthcare provider your pain treatment goals, length of treatment, and other ways tomanage your pain. Tell your doctor if you or anyone in your family drinks or has ever drunk large amounts of alcohol, uses or has ever used street drugs, or has overused prescription medications, or has had an overdose, or if you have or have ever had depression or another mental illness. There is a greater risk that you will overuse oxycodone if you have or have ever had any of these conditions.Talk to your healthcare provider immediately and ask for guidance if you think that you have an opioid addiction or call the U.S. Substance Abuse and Mental Health Services Administration (SAMHSA) National Helpline at 0-856-789-ZMJP. Oxycodone may cause serious or life-threatening breathing problems, especially during the first 24 to 72 hours of your treatment and any time your dose is increased. Your doctor will monitor you carefully during your treatment. Tell your doctor if you have or have ever had slowed breathing or asthma. Your doctor will probably tell you not to take oxycodone. Also tell your doctor if you have or have ever had lung disease such as chronic obstructive pulmonary disease (COPD; a group of diseases that affect the lungs and airways), a head injury a brain tumor, or any condition that increases the amount of pressure in your brain. The risk that you will develop breathing problems may be higher if you are an older adult or are weak or malnourished due to disease. If you experience any of the following symptoms, call your doctor immediately or get emergency medical treatment: slowed breathing, long pauses between breaths, or shortness of breath. Do not allow anyone else to take your medication. Oxycodone may harm or cause to other peoplewho take your medication, especially children. Keep oxycodone in a safe place so that no one else can take it accidentally or on purpose. Be especially careful to keep oxycodone out of the reach of children. Keep track of how many capsules, tablets, or oral solution is left so you will know if any medication is missing. Taking certain other medications with oxycodone may increase the risk of serious or life-threatening breathing problems, sedation, or coma. Tell your doctor and pharmacist what other prescription andnonprescription medications, vitamins, nutritional supplements, and herbal products you are taking or plan to take. Your doctor may need to change the doses of your medication and will monitor you carefully. If you take oxycodone with other medications and you develop any of the following symptoms,call your doctor immediately or seek emergency medical care: unusual dizziness, lightheadedness, extreme sleepiness, slowed or difficult breathing, or unresponsiveness. Be sure that your caregiver orfamily members know which symptoms may be serious so they can call the doctor or emergency medical care if you are unable to seek treatment on your own. Drinking alcohol, taking prescription or nonprescription medications that contain alcohol, or usingstreet drugs during your treatment with oxycodone increases the risk that you will experience serious, life-threatening side effects. Do not drink alcohol, take prescription or nonprescription medications that contain alcohol, or use street drugs during your treatment. If you are taking the oxycodone extended-release tablets, swallow them whole; do not chew, break, divide, crush, or dissolve them. Do not presoak, lick or otherwise wet the tablet prior to placing inthe mouth. Swallow each tablet right after you put it in your mouth. If you swallow broken, chewed,crushed, or dissolved extended-release tablets, you may receive too much oxycodone at once instead of slowly over 12 hours. This may cause serious problems, including overdose and . Oxycodone comes as a regular solution (liquid) and as a concentrated solution that contains more oxycodone in each milliliter of solution. Be sure that you know whether your doctor has prescribed theregular or concentrated solution and the dose in milliliters that your doctor has prescribed. Use the dosing cup, oral syringe, or dropper provided with your medication to carefully measure the number of milliliters of solution that your doctor prescribed. Read the directions that come with your medication carefully and ask your doctor or pharmacist if you have any questions about how to measure your dose or how much medication you should take. You may experience serious or life threatening side effects if you take an oxycodone solution with a different concentration or if you take a different amount of medication than prescribed by your doctor. Store oxycodone in a safe place so that no one else can take it accidentally or on purpose. Be especially careful to keep oxycodone out of the reach of children. Keep track of how many tablets or capsules, or how much liquid is left so you will know if any medication is missing. Dispose of unwantedcapsules, tablets, extended-release tablets, extended-release capsules, and liquid properly according to instructions. (See STORAGE and DISPOSAL). Tell your doctor if you are or plan to become . If you take oxycodone regularly during your , your baby may experience life- threatening withdrawal symptoms after . Tellyour baby's doctor right away if your baby experiences any of the following symptoms: irritability, hyperactivity, abnormal sleep, high-pitched cry, uncontrollable shaking of a part of the body, vomiting, diarrhea, or failure to gain weight. Talk to your doctor about the risks of taking oxycodone. Your doctor or pharmacist will give you the asbestos surveyor's patient information sheet (Medication Guide) when you begin your treatment with oxycodone and each time you fill your prescription. Read theinformation carefully and ask your doctor or pharmacist if you have any questions. You can also visit the Food and Drug Administration (FDA) website (https://www.fda.gov/Drugs/DrugSafety/kas668756.htm) or the asbestos surveyor's website to obtain the Medication Guide. WHY is this medicine prescribed? Oxycodone immediate-release tablets, capsules, and oral solution are used to relieve severe, acute pain (pain that begins suddenly, has a specific cause, and is expected to go away when the cause of the pain is healed) in people who are expected to need an opioid pain medication and who cannot be treated with other pain medications. Oxycodone extended-release tablets and extended-release capsulesare used to relieve severe pain in people who are expected to need pain medication around the clockfor a long time and who cannot be treated with other medications. Oxycodone extended-release tablets and extended-release capsules should not be used to treat pain that can be controlled by medication that is taken as needed. Oxycodone concentrated solution should only be used to treat people who are tolerant (used to the effects of the medication) to opioid medications because they have taken this type of medication for at least one week. Oxycodone is in a class of medications called opiate (narcotic) analgesics. It works by changing the way the brain and nervous system respond to pain. Oxycodone is also available in combination with acetaminophen (Oxycet??, Percocet??, others) and aspirin (Percodan??). This monograph only includes information about the use of oxycodone alone. If you are taking an oxycodone combination product, be sure to read information about all the ingredientsin the product you are taking and ask your doctor or pharmacist for more information. HOW should this medicine be used? Oxycodone comes as a solution (liquid), a concentrated solution, a tablet, a capsule, an extended-release (long-acting) tablet (Oxycontin??), and an extended-release capsule (Xtampza ER??) to take bymouth. The solution, concentrated solution, tablet, and capsule are taken usually with or without fo od every 4 to 6 hours, either as needed for pain or as regularly scheduled medications. The extended-release tablets (Oxycontin??) are taken every 12 hours with or without food. The extended-release capsules (Xtampza ER??) are taken every 12 hours with food; eat the same amount of food with each dose. Follow the directions on your prescription label carefully, and ask your doctor or pharmacist toexplain any part you do not understand. Take oxycodone exactly as directed. If you are taking the extended-release tablets (Oxycontin??), swallow the tablets one at a time with plenty of water. Swallow the tablet or right after putting it in your mouth. Do not presoak, wet, or lick the tablets before you put them in your mouth. Do not chew or crush extended-release tablets. If you have trouble swallowing extended-release capsules (Xtampza ER??), you can carefully open thecapsule and sprinkle the contents on soft foods such as applesauce, pudding, yogurt, ice cream, or jam, then consume the mixture immediately. Dispose of the empty capsule shells right away by flushing them down a toilet. Do not store the mixture for future use. If you have a feeding tube, the extended-release capsule contents can be poured into the tube. Ask your doctor how you should take the medication and follow these directions carefully. Your doctor may adjust your dose of oxycodone during your treatment, depending on how well your pain is controlled and on the side effects that you experience. Talk to your doctor about how you are feeling during your treatment with oxycodone. Tell your doctor if you feel that your pain is not controlled or if your pain increases, becomes worse, or if you have new pain or an increased sensitivityto pain during your treatment with oxycodone. Do not take more of it or take it more often than prescribed by your doctor. Do not stop taking oxycodone without talking to your doctor. If you stop taking oxycodone suddenly,you may experience withdrawal symptoms such as restlessness, watery eyes, runny nose, sneezing, yawning, sweating, chills, muscle or joint aches or pains, weakness, irritability, anxiety, depression,difficulty falling asleep or staying asleep, cramps, nausea, vomiting, diarrhea, loss of appetite, fast heartbeat, and fast breathing. Your doctor will probably decrease your dose gradually. Are there OTHER USES for this medicine? This medication may be prescribed for other uses; ask your doctor or pharmacist for more information. What SPECIAL PRECAUTIONS should I follow? Before taking oxycodone, ? tell your doctor and pharmacist if you are allergic to oxycodone, any other medications, or any of the ingredients in the oxycodone product you plan to take. Ask your pharmacist or check the Medication Guide for a list of the ingredients. ? tell your doctor or pharmacist if you are taking the following medications or have stopped takingthem within the past two weeks: isocarboxazid (Marplan??), linezolid (Zyvox??), methylene blue, phenelzine (Nardil??), selegiline (Emsam??, Zelapar??), or tranylcypromine (Parnate??). ? The following nonprescription or herbal products may interact with oxycodone: Notasulga's wort andtryptophan. Be sure to let your doctor and pharmacist know that you are taking these medications before you start taking oxycodone. Do not start these medications while taking oxycodone without discussing it with your healthcare provider. ? tell your doctor if you have or have ever had any of the conditions mentioned in the IMPORTANT WARNING section, a blockage or narrowing of your stomach or intestines, or paralytic ileus (condition in which digested food does not move through the intestines). Your doctor may tell you not to take oxycodone. ? Also tell your doctor if you have or have ever had low blood pressure; seizures; adrenal insufficiency (condition in which the adrenal glands do not produce enough of certain hormones needed for important body functions); seizures; urethral stricture (blockage of the tube that allows urine to leave the body), problems urinating; or heart, kidney, liver, pancreas, thyroid, or gall bladder disease. If you will be taking the extended-release tablets or extended-release capsules, also tell your doctor if you have or have ever had difficulty swallowing, diverticulitis (condition in which small pouches form in the intestines and become swollen and infected), colon cancer (cancer that begins in the large intestine), or esophageal cancer (cancer that begins in the tube that connects the mouth and stomach). ? tell your doctor if you are . You should not breastfeed while you are taking oxycodone. Oxycodone can cause shallow breathing, difficulty or noisy breathing, confusion, more than usualsleepiness, trouble , or limpness in breastfed infants. ? you should know that this medication may decrease fertility in men and women. Talk to your doctorabout the risks of taking oxycodone. ? if you are having surgery, including dental surgery, tell the doctor or dentist that you are taking oxycodone. ? you should know that this medication may make you drowsy. Do not drive a car, operate heavy machinery, or participate in any other possibly dangerous activities until you know how this medication affects you. ? you should know that oxycodone may cause dizziness, lightheadedness, and fainting when you get uptoo quickly from a lying position. To help avoid this problem, get out of bed slowly, resting your feet on the floor for a few minutes before standing up. ? you should know that oxycodone may cause constipation. Talk to your doctor about changing your diet or using other medications to prevent or treat constipation while you are taking oxycodone. What SPECIAL DIETARY instructions should I follow? Unless your doctor tells you otherwise, continue your normal diet. What should I do IF I FORGET to take a dose? If you are taking oxycodone on a regular schedule, take the missed dose as soon as you remember it.However, if it is almost time for the next dose, skip the missed dose and continue your regular dosing schedule. Do not take a double dose to make up for a missed one. Do not take more than one dose of the extended- release tablets or capsules in 12 hours. What SIDE EFFECTS can this medicine cause? Some side effects can be serious. If you experience any of these symptoms or those mentioned in theIMPORTANT WARNING section, call your doctor immediately or get emergency medical help: ? changes in heartbeat ? agitation, hallucinations (seeing things or hearing voices that do not exist), fever, sweating, confusion, fast heartbeat, shivering, severe muscle stiffness or twitching, loss of coordination, or diarrhea ? nausea, vomiting, loss of appetite, weakness, or dizziness ? inability to get or keep an erection ? irregular menstruation ? decreased sexual desire ? chest pain ? rash; itching; hives; hoarseness; difficulty breathing or swallowing; or swelling of the face, mouth, tongue, lips, or throat ? swelling of the hands, feet, ankles, or lower legs ? seizures ? extreme drowsiness If you experience a serious side effect, you or your doctor may send a report to the Food and Drug Administration's (FDA) MedWatch Adverse Event Reporting program online (https://www.fda.gov/Safety/MedWatch) or by phone ( ). Oxycodone may cause other side effects. Call your doctor if you have any unusual problems while youare taking this medication. What should I know about STORAGE and DISPOSAL of this medication? Keep this medication in the container it came in, tightly closed, and out of reach of children, andin a location that is not easily accessible by others, including visitors to the home. Store it at room temperature and away from light and excess heat and moisture (not in the bathroom). You must immediately dispose of any medication that is outdated or no longer needed through a medicine take-back program. If you do not have a take-back program nearby or one that you can access promptly, flush any medication that is outdated or no longer needed down the toilet so that others will not take it.Talk to your pharmacist about the proper disposal of your medication. Keep all medication out of sight and reach of children as many containers are not child-resistant. Always lock safety caps. Place the medication in a safe location - one that is up and away and out of their sight and reach. https://www.[employer]org What should I do in case of OVERDOSE? In case of overdose, call the poison control helpline at . Information is also available online at https://www.poisonhelp.org/help. If the victim has collapsed, had a seizure, has trouble breathing, or can't be awakened, immediately call emergency services at 911. While taking oxycodone, you should talk to your doctor about having a rescue medication called naloxone readily available (e.g., home, office). Naloxone is used to reverse the life-threatening effects of an overdose. It works by blocking the effects of opiates to relieve dangerous symptoms caused by high levels of opiates in the blood. Your doctor may also prescribe you naloxone if you are livingin a household where there are small children or someone who has abused street or prescription drugs. You should make sure that you and your family members, caregivers, or the people who spend time with you know how to recognize an overdose, how to use naloxone, and what to do until emergency medical help arrives. Your doctor or pharmacist will show you and your family members how to use the medication. Ask your pharmacist for the instructions or visit the [employer]'s website to get the instructions. If symptoms of an overdose occur, a caregiver or family member should give the first dose of naloxone, call 911 immediately, and stay with you and watch you closely until emergency medical help arrives.Your symptoms may return within a few minutes after you receive naloxone. If your symptoms return, the person should give you another dose of naloxone. Additional doses may be given every 2 to 3 minutes, if symptoms return before medical help arrives. Symptoms of overdose may include the following: ? difficulty breathing ? slowed or shallow breathing ? excessive sleepiness ? limp or weak muscles ? narrowing or widening of the pupils (dark [place] in the eye) ? cold, clammy skin ? unable to respond or wake up ? slowed heartbeat ? unusual snoring What OTHER INFORMATION should I know? Keep all appointments with your doctor. Your doctor may order certain lab tests to check your body's response to oxycodone. Before having any laboratory test (especially those that involve methylene blue), tell your doctor and the laboratory personnel that you are taking oxycodone. This prescription is not refillable. If you continue to have pain after you finish the oxycodone, call your doctor. Keep a written list of all of the prescription and nonprescription (cugd-gwj-vgdkwga) medicines, vitamins, minerals, and dietary supplements you are taking. Bring this list with you each time you visit a doctor or if you are admitted to the hospital. You should carry the list with you in case of anjel rgencies. Brand Name(s): ? Oxaydo? Oxycontin?? ? Roxicodone?? ? Roxybond?? ? Xtampza?? ER ? Combunox?? (as a combination product containing Ibuprofen, Oxycodone)?? ? Oxycet?? (as a combination product containing Acetaminophen, Oxycodone) ? Percocet?? (as a combination product containing Acetaminophen, Oxycodone) ? Percodan?? (as a combination product containing Aspirin, Oxycodone) ? Roxicet?? (as a combination product containing Acetaminophen, Oxycodone)?? ? Roxilox?? (as a combination product containing Acetaminophen, Oxycodone)?? ? Roxiprin?? (as a combination product containing Aspirin, Oxycodone)?? ? Targiniq?? ER (as a combination product containing naloxone, oxycodone)?? ? Troxyca ER?? (as a combination product containing Naltrexone, Oxycodone)?? ? Tylox?? (as a combination product containing Acetaminophen, Oxycodone)?? ? Xartemis XR?? (as a combination product containing Acetaminophen, Oxycodone)?? also available generically ?? This branded product is no longer on the market. Generic alternatives may be available. This report on medications is for your information only, and is not considered individual patient advice. Because of the changing nature of drug information, please consult your physician or pharmacist about specific clinical use. The [place] represents that the information provided hereunder was formulated with a reasonable standard of care, and in conformity with professional standards in the field. The [place] makes no representations or warranties, express or implied, including, but not limited to, any implied warranty of merchantability and/or fitness for a particular purpose, with respect to such information and specifically disclaims all such warranties. Users are advised that decisions regarding drug therapy are complex medical decisions requiring the independent, informed decision of an appropriate health care team coordinator scheduler, and the information is provided for informational purposes only. The entire monograph for a drug should be reviewed for a thorough understanding of the drug's actions, uses and side effects. The [place] does not endorse or recommend the use of any drug.The information is not a substitute for medical care. AHFS?? Patient Medication Information?. ?? Copyright, 2023. The [employer]??, [address], [address], [place], [place]. All Rights Reserved. Duplication for commercial use must be authorized by [facility]. Selected Revisions: March 09, 2024. AHFS?? Patient Medication Information?. ?? Copyright, 2024 * [facility] - Adele Carmona RN - 11/12/2024 1:53 PM EDT Images from the original note were not included. 450 Safe Use of Controlled Substances Taking a medicine may be an important part of your treatment. Your body should heal faster if you take medicine safely. Some medicines are called Controlled Substances. This means their use is controlled by law. Some of these can harm you if you do not take them safely. What can I do to make sure I take my medicine safely? ? Follow the instructions we give you for how to take your medicine. ? We will give you an instruction sheet for each of your medicines. Ask your doctor or nurse if youdo not get these instructions. ? Some medicines make you sleepy or cloud your thinking. Do not drive, use heavy machines or do dangerous activities while taking these medicines. ? Read the label on the bottle each time you take your medicine. ? Do not take your medicine with alcohol or other sedatives. ? Do not take medicine after the expiration date. ? It is against the law to sell your medicine or share it with others. ? Do not drive while using your medicine. How should I store my medicine? Store it in a safe place. This will keep others from taking your medicine and help you keep track of it. ? Store controlled substances in a cabinet or container that you can lock. ? Keep it in a place that is cool, dry and out of direct sunlight. ? Do not leave it in the car. ? Do not store in a refrigerator or freezer, unless your doctor tells you to. ? Call your doctor right away if your medicine is lost or stolen. How should I dispose of medicine that is or no longer needed? You may have medicine left over that you do not need or should not take. You must dispose of it theright way to protect yourself and others. You can ask your local pharmacist how to dispose of them.You can also visit these Web sites to learn more about disposal of controlled substances: ? Drug Enforcement Agency (BARBARA): http://www.deadiversion.usdoj.gov/drug_disposal/takeback/index.htm ? National Association of Drug Diversion Investigators (NADDI): http://rxdrugdropbox.org/ ? [place] Office of Drug Control Policy: http://odcp.ms.gov/Prescription+Drug+Drop+Box+Sites.htm Are there concerns about or ? ? Before you take a medicine, tell your doctor if you are or plan to get . This could harm your baby. ? Tell your doctor if you breastfeed. Medicine in breast milk may be bad for your child. What if I have low or impaired vision? If you have vision problems, take extra care with your medicine. ? Wear your glasses when you take your medicine. ? Do not take medicine in the dark. What are the signs of overdose? Some controlled substances may cause breathing problems if you take more than your doctor recommends. This may lead to serious health problems or even . You and your caregivers should watch for the following signs of overdose. ? Slurred speech, confusion or stumbling ? Feeling dizzy or faint ? Acting drowsy or groggy ? Unusual snoring, gasping or snorting during sleep ? Hard to wake up or keep awake What should I or my caregiver do if I overdose? You or your caregiver should call 911 if you have any of these problems: ? Cannot wake up ? Cannot talk after waking up ? Shortness of breath, slow or light breathing, or breathing has stopped ? Heartbeat is slow or stopped ? Gurgling noise comes from the mouth or throat ? Body is limp or seems lifeless ? Face is pale or clammy ? Fingernails or lips look blue or purple What is a BASIA report? BASIA is a system that tracks prescriptions of controlled substances in [place]. The BASIA report tells your doctor if you have been prescribed controlled substances in the past. Doctors must get a BASIA report before prescribing controlled substances. What can I do if the information in my BASIA report is wrong? You or your doctor may contact the dispenser who reported the information to [employer]. If the dispenser agrees that the information should be changed, he or she can fix the BASIA report. However, the dispenser may certify that the report is correct. If that is the case, you or your doctor may then call the [place] Drug Enforcement and Professional Practices Branch at .This will start an investigation of the error. * [facility] - Adele Carmona RN - 11/12/2024 1:53 PM EDT Images from the original note were not included. 86378 Preventing a Surgical Site Infection A risk of any surgery is an infection at the surgical site. The surgical site is a cut the surgeon makes in the skin to do the surgery. Surgical site infections can range in type. It may be a minor skin infection. Or it may be severe and include tissue under the skin or other organs. In some cases,a severe infection can cause . The information below tells you: ? About surgical site infections. ? What hospitals do to prevent them. ? How they?re treated if they do occur. ? What you can do to prevent an infection. Hand washing reduces the risk of infection. What causes a surgical site infection? Germs are everywhere. They?re on your skin, in the air, and on things you touch. Many germs are good. Some are harmful. Surgical site infections occur when harmful germs enter your body through the incision in your skin. Some infections are caused by germs that are in the air or on objects. But most are caused by germs found on and in your own body. Who is at risk for a surgical site infection? Anyone can have a surgical site infection. Your risk is higher if you: ? Are an older adult. ? Have a weak immune system. ? Have other health conditions such as diabetes. ? Take certain medicines, such as steroids. ? Are a smoker. ? Have certain types of surgery, such as abdominal surgery. ? Have poor nutrition. ? Are very overweight. ? Have a surgery that lasts longer than 2 hours. What are the symptoms of a surgical site infection? An infection often shows up as skin redness, pain, and swelling around the incision that gets worse. Later, a cloudy or greenish-yellow fluid may come from the incision. The fluid may smell bad. The incision may pull apart or open up. You are likely to have a fever and may feel very ill. Symptoms can appear at any time. They may happen from hours to weeks after surgery. Implants such as an artificial knee or hip can become infected at any time after the surgery. How is a surgical site infection treated? ? A surgical site infection is treated with antibiotics. The type of medicine you get will depend on what may be causing the infection. Most serious wound infections need wound care. In some cases, surgery may be needed on the infected wound. ? An infected skin wound may be reopened and cleaned. A deep wound may need to be packed with gauze. The gauze is changed often until the wound starts to heal from the inside out. Your health care provider will decide the best way to treat your infection. ? If an infection occurs where an implant is placed, the implant may be removed. ? If you have an infection deeper in your body, you may need surgery to treat it. What hospitals do to prevent surgical site infections Many hospitals take these steps to help prevent surgical site infections: ? Handwashing. Before the surgery, your surgeon and all surgery staff scrub their hands and arms with an antiseptic soap. ? Clean skin. The site where your incision is made is carefully cleaned with an antiseptic solution. ? Sterile clothing and drapes. The surgical team wears medical uniforms. These are known as scrub suits. They wear long-sleeved surgical gowns, masks, caps, shoe covers, and sterile gloves. Your bodyis fully covered with a large sterile sheet (sterile drape). There is an opening in the sheet wherethe incision is made. ? Clean air. Operating rooms have special air filters. They use positive pressure airflow to prevent unfiltered air from entering the room. ? Careful use of antibiotics. Antibiotics are given no more than 60 minutes before the incision is made. They are generally stopped within 24 hours after surgery. This depends on the type of surgery.This helps kill germs but prevents problems that can occur when antibiotics are taken longer. ? Controlled blood sugar levels. Your blood sugar level may rise. This can be because of the stressof the surgery. Your blood sugar level is watched closely to make sure it stays within a normal range. High blood sugar delays wound healing. This increases the risk of infection. ? Controlled body temperature. A [id number]-rwdkpx temperature during or after surgery prevents oxygen from reaching the wound. This makes it harder for your body to fight infection. Hospitals may warm I.V. fluids, and provide warm-air blankets. Your temperature is watched throughout the surgery. ? Safe hair removal. Any hair that must be removed is clipped right before the incision, not shavedwith a razor. This prevents tiny nicks and cuts where germs can enter. ? Wound care. After surgery, a closed wound is covered with a sterile dressing for 1 to 2 days. Open wounds are packed with sterile gauze and covered with a sterile dressing. What you can do to prevent a surgical site infection ? Ask questions. Learn what your hospital is doing to prevent infection. ? If instructed, shower or bathe with plain soap the night before and the day of your surgery. Follow all instructions you're given. You may be asked to use a special cleanser that you don?t rinse off. ? If you smoke, stop as long as possible before and after the surgery. Ask your provider about waysto quit. ? Take antibiotics only when your provider tells you to. Using antibiotics when they?re not needed can create germs that are harder to kill. Finish the entire prescription of your antibiotics even ifyou feel better. ? Ask health care workers to clean their hands with plain soap and water or with an alcohol-based hand bathing suit maker before and after caring for you. Don?t be afraid to remind them. ? After surgery, eat healthy foods. Care for your incision as directed by your health care team. When to contact your doctor Contact your provider or seek medical care right away if: ? The pain at the surgical site gets worse. ? A red streak, worse redness, or puffiness appears near the incision. ? Yellowish, cloudy, or bad-smelling fluid leaks from the incision. ? Your stitches dissolve before the wound heals. ? You have a fever of 100.4?? F ( 38??C ) or higher, or as advised by your provider. ? You have a tired feeling that doesn?t go away. Last Reviewed Date: 2024 00:00:00 ?? [id number] [employer]. All rights reserved. This information is not intended as a substitute for professional medical care. Always follow your healthcare professional's instructions. * [facility] - Adele Carmona, LUANNE - 11/12/2024 1:51 PM EDT Images from the original note were not included. 528 Moving After Your Injury or Illness Health problems can make it harder for you to turn in bed, get up and down, sit, stand, or walk. But moving less can cause your illness to get worse. It can cause you to get health problems you did not have before or cause you to stay in the hospital for a longer period of time. These problems can affect your body and your life. You need to move while you are in the hospital. You need to move as much as you can, even when you are sick or hurt. Your nurse or doctor will talkto you about safe ways you can keep moving during your hospital stay. Moving has many benefits. ? It will help you heal. ? It will protect you from getting other health problems. ? You will spend less time in the hospital. ? You will spend less money on healthcare. Not moving can cause many kinds of problems. Not moving can cause health problems that can make you sicker or even cause . Some of these problems are: Bed sores: A bed sore is also called a pressure injury. It is an injury to the skin or tissue. Not moving or staying in one position too long are common causes of bed sores. Heart problems: Moving less can weaken your heart muscles. When the muscles are weak, your heart cannot pump blood well. This means less blood and oxygen travels through your body. When blood flow slows down, it can cause clots. Blood clots: When you move less, you can get a blood clot. They often form in the leg veins. You are more likely to get a clot if you: ? are in bed for a long time ? smoke ? have had a certain type of surgery Pulmonary embolism: A pulmonary embolism is serious problem that can cause . It means a blood clot in a vein breaks off and blocks an artery in the lung. Stroke: A stroke is when blood flow to the brain stops. A blood clot in the brain can cause a stroke. Heart attack: A blood clot traveling to your heart can cause a heart attack. This blocks the flow of blood and oxygen. Lung problems: Your lungs do not expand as much when you sit or lay down. If your lung muscles do not stretch, they become stiff and your breathing muscles have to work harder to help you breathe.. This can lead to pneumonia or even organ damage. Muscle and bone problems: If you do not move, your muscles can get weak or shrink. When muscles do not stretch, you feel stiff and achy. Your bones may become weak or brittle. This makes it easier for your bones to break. Stomach problems: Lying in bed can cause the muscles in your bowels to slow down. This can lead to: ? loss of appetite ? getting less nutrition from what you eat ? fewer bowel movements and constipation Mood and behavior changes: Not moving can have bad effects on your brain. Some common signs of thisare: ? mood changes ? confusion ? less mental alertness ? anxiety or stress ? depression ? sleep problems * Reyes SamsonAdele Malik RN - 11/12/2024 1:51 PM EDT Images from the original note were not included. [id number] Fall Prevention Falls often take place due to slipping, tripping, or losing your balance. Millions of people fall every year and injure themselves. Among older adults in the [place] falls are the most common cause of traumatic brain injuries. Every 20 minutes, an older adult dies from a fall. Here are ways to reduceyour risk of falling again: ? Think about your fall. Was there anything that caused your fall that can be fixed, removed, or replaced? ? Make your home safe by keeping walkways clear of objects you may trip over, such as animal toys and electrical cords. ? If you are sad or depressed talk to your health care provider. Symptoms of depression, such as feeling under the weather, or physically slowed down, have been linked to an increased fall risk. ? Drink fluids throughout the day. Dehydration can lead to dizziness and increase your risk of falling. It's best to talk to your primary care providers about how much water you should drink. They know your medical history, your current prescriptions and your lmhp-rka-zxawhdr medicines. As a general rule, the National [place] [employer] (NCA) recommends taking one-third of your body weight and drinking that number of ounces in fluids. For example, if you weigh 150 pounds, you would drink at least50 ounces, or about 6 cups, of fluid each day. Ask your provider if it's safe for you to use this formula. ? Use nonslip pads under rugs. Don't use area rugs or small throw rugs. ? Use nonslip mats in bathtubs and showers. ? Hang grab rails by the toilet and inside and outside the shower. ? Install handrails and lights on staircases. The handrails should be on both sides of the stairs. ? Use night lights. ? Don't walk in poorly lit areas. ? Don't stand on chairs or wobbly ladders. ? Use care when reaching overhead or looking up. This position can cause a loss of balance. ? Be sure your shoes fit well, are in good condition, and have nonslip bottoms. ? Wear shoes both inside and outside of your home. Don't go barefoot or wear slippers. ? Be cautious when going up and down stairs, curbs, and when walking on uneven sidewalks. ? If your balance is poor, consider using a cane or walker. Talk with your health care provider about having a balance assessment. ? If your fall was related to alcohol use, stop or limit alcohol intake. Ask your provider for helpif you think you may overuse alcohol and can't stop. ? If your fall was related to use of sleeping medicines, talk with your provider about this. You may need to reduce your dosage at bedtime if you wake up during the night to go to the bathroom. ? To reduce the need for nighttime bathroom trips: o Don't drink fluids for several hours before going to bed. o Empty your bladder before going to bed. o Men can keep a urinal at the bedside. ? Stay as active as you can. Balance, flexibility, strength, and endurance all come from exercise. They all play a role in preventing falls. Ask your provider which types of activity are right for you. Try to do some type of exercise every day. ? Get your eyes checked once a year or more often if your vision changes. Be extra cautious while adjusting to new prescription lenses. ? If you have pets, know where they are before you stand up or walk so you don't trip over them. ? Go over all your medicines with a pharmacist or other provider. This is to see if any of them could make you more likely to fall. Have this type of medicine review at least once every year. ? If your provider advises a new medicine, ask if the side effects will affect your balance. ? Don't move quickly from one position to another. For instance, don't stand up fast from sitting. This can cause dizziness and may lead to a fall. ? Sit down when putting on pants, socks, and shoes. This will make you less likely to lose your balance and fall. ? Always let your provider know if you have fallen since your last visit. ? Contact your provider right away if you're having balance problems or falling more often. Last Reviewed Date: 2024 00:00:00 ?? [id number] [employer]. All rights reserved. This information is not intended as a substitute for professional medical care. Always follow your healthcare professional's instructions. * Reyes [facility] - Adele Carmona RN - 11/12/2024 1:51 PM EDT Images from the original note were not included. 106 Sinus Surgery After your sinus surgery, it is very important that you work with your doctor to keep your nasal and sinus cavities clean. Home care ? Use Your Ashby! The more moist your nose is, the quicker it will heal and the easier it will be to clean after surgery. Use the nose spray every 1-2 hours while you?re awake. There is no medicine in the spray. It just keeps your nose moist. The first week while your splints are in place, it may be hard to get the spray into your nose. That?s okay - do the best you can. Once the splints are out,the spray will make more of a difference. ? Don't blow your nose. This could cause very bad bleeding. If you feel like you must clear your nose, use some of the nasal spray we give you. ? No heavy lifting or straining for 3 weeks. That includes all forms of exercise and lifting any objects over 25 to 30 pounds. ? If you have to sneeze, open your mouth. This will take some of the force out of your nose and prevent bleeding after surgery. ? Use a vaporizer or humidifier at bedtime. This will help your mouth to not dry out and help you feel more comfortable as you heal. Use the it for the first 2 to 3 weeks and then as needed. Warm mist is better than cool mist for your comfort and convenience. ? Drink lots of liquids. Drinking lots of liquids will keep the mucous in your nose and sinuses thin. It will be easier for it to clear and you will have less drying and irritation. A general rule isto pee pale - If there is any yellow to the color of your urine, you are not drinking enough. ? Diet: You can eat anything you want. There are no limitations or restrictions. ? Bandages: The bandage you will be sent home with is a small gauze under your nose. You can removeit when you get home. Some people prefer to keep a small gauze under their nose for several days after surgery. This is not necessary and will not harm anything. Keeping the gauze under your nose maydraw out a little blood from your nose. Do not be alarmed - this is normal. ? Medicines: We will send you home with nasal spray, a 1 week supply of antibiotics you will take by mouth, and pain medicine. There should not be a lot of pain after this surgery, but you will have some congestion. You may take an rlga-gjq-wetkakm decongestant, like Sudafed. Do not take any antihistamines - these can dry you out further. Follow up We will arrange for you to return to the office in a week to 10 days for your first follow up visit. Plan on another visit a week to 10 days after that. Appointments after that will depend on how well your nose stays clean. The doctor will see you as often as is needed. Usually within 3 to 4 weeks,the majority of the crusting will have gone away and the healing will be near complete. ? If you have any questions or problems, call the Department of Otolaryngology - Head and Neck Surgery (Ear, Nose and Throat) Clinic at . Ask to speak to the clinic nurse. The nurse will answer your questions or have a doctor return your call. ? On evenings, weekends and holidays, call and ask for the ENT resident calibration tester. * [facility]yes [facility] - Adele Carmona RN - 11/12/2024 1:51 PM EDT Images from the original note were not included. 675 Home Care for Concussion What is it? A concussion is an injury to the brain. It is caused by a hit to the head or body that makes the brain move inside the skull. Some common reasons for concussion are car wrecks, sports injuries, and falls. How serious is it? The symptoms of concussion often go away in a few days. Most adults are better 2-3 days after the injury. Headaches usually go away in 2-4 weeks. Even if the symptoms last longer, they usually go away. If your symptoms get worse or do not go away in 4 weeks, call your doctor. What are the symptoms? As you heal, you could have a range of symptoms. You may not notice them right away. Here are some common symptoms: ? Headaches ? Feeling tired quickly ? Sleep problems ? Anxiety or depression ? Dizziness or vertigo ? Ringing in ears ? Irritated or aggressive for no reason ? Memory and concentration problems ? Sudden mood changes or mood swings ? Feeling lazy ? Personality or behavior changes ? Sensitivity to light or noise ? Feeling sick to your stomach These symptoms usually go away without treatment. Still, these symptoms can cause stress for you and your loved ones. Knowing what is normal after concussion will help you cope. Tell your doctor if the symptoms get worse or if you do not think you are getting better. What if my symptoms do not get better? If you do not feel back to your normal self after 1 week, see your doctor. If you are not back to normal after 1 month, ask your doctor to refer you to a concussion specialist at [facility]. When should I call 911? Some head injuries cause more serious problems. These may show up over time. Call 911 or go to the emergency department right away if you have any of these symptoms: ? Any bleeding or drainage from the ears or nose ? Headache gets worse or does not go away ? Vomiting often ? Passing out or not waking up ? Sleeping too much or hard to wake up ? Getting more confused, restless, or agitated ? Problems with walking or balance ? Convulsions or seizures ? Feeling weak or numb ? Vision changes If you have any of these or other symptoms that worry you, call 911 right away. How can I care for myself at home? Get rest. Sleeping and relaxing may help you heal. Resting should help to reduce symptoms for 1-2 days after the injury. However, more than 2 daysof strict rest may be harmful and may actually slow your healing. So, the gonzales is for you to know yourself and balance rest and activity! As you start to heal, you can slowly get back to your normal activities. Take it easy with physical and mental activities. Take a break from things like exercise, sports, and cleaning house when you are feeling ill. Do not try to ?tough it out.? Balance activity and rest.Ignoring symptoms can make them worse and slow your healing. We recommend that you avoid drinking alcohol. Do I need to get my doctor?s permission before doing any activities? School and work. Ask your doctor when it will be safe to go back to work or school. Talk with your doctor about any limitations on what you can do. Find out who will inform your work or school about those limitations. Until you are feeling like yourself, you may want to delay important work projects or school exams. Sports and play. Ask your doctor when it will be safe to play sports or do recreational activities.There are guidelines that will help you return gradually and safely. Do not play sports until your symptoms go away. Stop doing any physical or mental activity if you have any symptoms. Let yourself rest when doing these activities. Getting another concussion before your brain has healed can be dangerous. It may slow your healing or increase your chance of long-term problems. When do I follow up with my doctor? After you leave the hospital, make an appointment with your primary care doctor. If your doctor thinks your symptoms are serious enough, your doctor might refer you to a specialist at [facility]. ? For symptoms that last longer than 4 weeks after the injury, ask your current doctor to send a referral to Neuropsychology at . ? If your symptoms suddenly get worse, call your primary care doctor or go to your local emergency room. What can I do to prevent concussion? Take these steps to lower your risk of concussion. At home: ? Look for things that could trip you. Pick them up or move them out of the way. This includes cords and rugs that will not lay flat. ? Have good lighting in your living area. ? Place non-slip mats on slick floors and in tubs and showers. ? Use handrails on stairs and safety handles in showers. For travel and activities: ? Always wear a seat belt in vehicles. Have children sit in safety seats. ? Wear a helmet that fits well for any activity that has a risk of head injury. Some examples include: o Contact sports like football, hockey, or skiing o Riding a horse, skateboard, bike, ATV, or motorcycle * Discharge Summary - Charles Velasco APRN - 11/12/2024 1:10 PM EDT Hospitalization Admit Date/Time: 10/30/2024 2:57 AM Admitting Attending: Katharine Savage Discharge Date: 11/12/2024 Discharge Attending Physician: Dionne Jacobs MD PCP name and Address: Aman Hernandez MD [address] [facility] [address] / [facility] [id number] Referring provider name and address: Alfonso Anderson MD [address] [place] [address] Chief Concern, Brief History of Present Illness, and Hospital Course [place] Mata is a 64 y/o Female with a PMHx of CVA w/ R sided defecits on ASA/Plavix, HTN, HLP, CAD, and Hypothyroidism who presents on 10/30 s/p fall. Reversed with Anticoagulation was reversed withDDAVP. Injuries include: tSAH, IVH, R tripod fx with non-displaced ZMG, R globe hematoma s/p lateral canthotomy at OSH. Past 24h: Patient is sitting up in bed, comfortable and A&O x 2. Very pleasant but confused to time and place. NAD. NAEON. VSS. On RA, no SOA. Pain is well- controlled. Tolerating PO diet. Denies N/V, abd pain. Last BM 11/10. Mobilizing as able. Discussed anticipated hospital course with family at the bedside, plan to transport her to [place] by car on this day at 1630. Family and patient are agreeable to the plan. 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 Physical therapy and occupational therapy evaluated the patient during hospitalization and recommend Subacute Rehab. At the time of discharge the patient was hemodynamically stable, tolerating PO, voiding spontaneously, normal bowel function, mobilizing appropriately, with their pain controlled with PO medication. At this time, the patient has obtained the maximum benefit from the present hospital stay, and so will be discharged to [place]. DVT prophylaxis: Hold AC/AP for 2 weeks (11/14) Procedures: 11/01: s/p ORIF R zygomatic arch fx and R orbital wall fx repair Mobility Restrictions: None Other Precautions: Concussion Protocol: Continue to monitor signs and symptoms: headache, confusion, lack of coordination, memory loss, n/v, dizziness, ringing in ears, sleepiness and excessive fatigue Sinus Precautions x 2 weeks (until 11/14) Wound Care: Facial Lacerations: - Use half-strength hydrogen peroxide on a Q-tip to clean the wound/sutures of crusting. Pat dry, then use thin layer of bacitracin twice daily on wound for 5 days. After 5 days, stop the antibiotic ointment, and use thin layer of Vaseline or Aquaphor until fully healed. - When showering, do not have wound in direct spray; let the soapy water run over the wound and do not scrub. Pat dry. May fully submerge in 3 days. -Once completely healed, use sunblock or physical protection (e.g., broad- brimmed hat) when out in the sun for 6 months to prevent hyperpigmentation. -Vitamin E or Mederma may be used in 1 month to reduce scarring. Incidental Findings: None Follow up: PCP: Follow up in 1-2 weeks post hospitalization for incidental findings and management of chronic conditions/medications ENT: Follow up 2 weeks after discharge. Clinic will call with appointment date and time. [address] [place] [address], Third Floor, [place] [address] # [phone] Ophtho: Follow up 11/21 @ 12:25. [address], [address] [place] [address] #[phone] Neurosurgery: Clinic will contact with appointment date and time, [address] [place] [address] [facility], [address], [place] [address], SGT: [facility] Clinic as needed ; [address] [place] [address] First Floor, [address] [place] [address], #[phone]. Questions or Concerns and Appointments If there are questions or concerns after discharge from the hospital, please call [phone] and ask for [facility] Nurse. Working hours are Thursday - Thursday 8:00 AM to 4:00 PM. After hours, weekends and holidays please call [phone] and ask for the resident calibration tester for [facility]. For appointments please call [phone]. Medication requests should be made between the hours of 9:00 AM to 3:00 PM Thursday thru Thursday. Please note that based upon recent changes to [place] law related to prescribing opioid pain medications, our providers will not provide refills on controlled medications after your hospital discharge following a major surgery or trauma. [place], [place] 201 KAR9:260. Surgeries and Procedures Procedures performed in this encounter Procedures Case Request Operating Room: ORIF, FRACTURE, ZYGOMATICOMAXILLARY COMPLEX, ORIF, FRACTURE, ORBIT, FLOOR Central Line Critical Care Critical Care Critical Care Critical Care Critical Care Critical Care ORIF, FRACTURE, ZYGOMATICOMAXILLARY COMPLEX (Right), ORIF, FRACTURE, ORBIT, FLOOR (Right) Medication List PAUSE taking these medications Aspirin Low Dose 81 MG EC tablet Wait to take this until: November 15, 2024 Generic drug: aspirin Take 1 tablet by mouth daily. clopidogrel 75 MG tablet Wait to take this until: November 15, 2024 Commonly known as: Plavix 1 tablet. .. acetaminophen 500 MG tablet Commonly known as: Tylenol Take 1 tablet by mouth 4 times a day for 7 days. amLODIPine 5 MG tablet Commonly known as: Norvasc Take 1 tablet (5 mg total) by mouth 1 (one) time each day. atorvastatin 40 MG tablet Commonly known as: Lipitor Take 1 tablet by mouth daily. bacitracin (425g jar) 500 UNIT/GM ointment Apply to face BID Baclofen 5 MG tablet Take 1 tablet by mouth 2 times a day. lixuoutkwy-wnkrantuynkfx-qtqglrrb 50-325-40 MG tablet Take 1 tablet by mouth every 6 hours as needed for headaches for up to 3 days. erythromycin 5 MG/GM ophthalmic ointment Commonly known as: Romycin Apply 1 Application to both eyes every 8 hours. FLUoxetine 20 MG capsule Commonly known as: PROzac Take 1 capsule by mouth every morning. folic acid 800 MCG tablet Commonly known as: Folvite Take 1 tablet by mouth daily. hydrOXYzine pamoate 25 MG capsule Commonly known as: Vistaril Take 1 capsule by mouth every 8 hours as needed for itching. levothyroxine 75 MCG tablet Commonly known as: Synthroid, Levoxyl Take 1 tablet by mouth daily. megestrol 40 MG/ML suspension Commonly known as: Megace Take 10 mL by mouth daily for 7 days. Shake well just before you measure a dose. Measure with a special dose-measuring spoon or medicine cup, not with a regular table spoon. If you do not have a dose-measuring device, ask your pharmacist for one. mirtazapine 15 MG tablet Commonly known as: Remeron Take 1 tablet by mouth nightly. naloxone 4 mg/0.1 mL nasal spray Commonly known as: Narcan 1. Give 1 spray in nostril for no/slow breathing or cannot wake after opioid use 2. Call 911 3. Repeat in other nostril if symptoms continue ondansetron ODT 4 MG disintegrating tablet Commonly known as: Zofran-ODT Dissolve 1 tablet on the tongue every 6 hours as needed for nausea or vomiting for up to 5 days. oxybutynin XL 5 MG 24 hr tablet Commonly known as: Ditropan-XL Take 1 tablet by mouth daily. oxyCODONE 5 MG immediate release tablet Commonly known as: Roxicodone Take 1 tablet by mouth every 8 hours as needed for severe pain for up to 3 days. polyethylene glycol 17 g packet Commonly known as: Miralax Take 17 g by mouth 2 times a day for 5 days. pramipexole 1 MG tablet Commonly known as: Mirapex Take 1 tablet by mouth 3 times a day as needed. QUEtiapine 100 MG tablet Commonly known as: SEROquel Take 1.5 tablets by mouth nightly. senna-docusate 8.6-50 MG tablet Commonly known as: Marley-Colace Take 2 tablets by mouth 2 times a day for 5 days. tamsulosin 0.4 MG 24 hr capsule Commonly known as: Flomax Take 1 capsule by mouth 1 time each day with dinner. Where to Get Your Medications These medications were sent to [facility] - [facility] [address], [facility] [address] acetaminophen 500 MG tablet bacitracin (425g jar) 500 UNIT/GM ointment Baclofen 5 MG tablet yifvgobbev-izihcxngyyvnn-brcbysvn 50-325-40 MG tablet erythromycin 5 MG/GM ophthalmic ointment hydrOXYzine pamoate 25 MG capsule megestrol 40 MG/ML suspension naloxone 4 mg/0.1 mL nasal spray ondansetron ODT 4 MG disintegrating tablet oxyCODONE 5 MG immediate release tablet polyethylene glycol 17 g packet senna-docusate 8.6-50 MG tablet tamsulosin 0.4 MG 24 hr capsule Discharge Diagnosis Medical Problems Active and Resolved Hospital Problems Hospital Zygomatic arch fracture (CMS/HCC) Overview Addendum 11/06/2024 11:20 AM by Jenny Miller APRN ENT consult 11/01: s/p ORIF R zygomatic arch fx and R orbital wall fx repair Augmentin through 11/11 Sinus precautions Injury of globe of eye, right, initial encounter Overview Addendum 11/06/2024 11:30 AM by Jenny Miller APRN Optho consult Lateral canthotomy at OSH Follow up 11/21 @ 12:25. * (Principal) Fall TBI (traumatic brain injury) (CMS/HCC) Carotid stenosis ABLA (acute blood loss anemia) Hyperglycemia Acute respiratory failure with hypoxia Lactic acidosis Electrolyte abnormality MELISSA (acute kidney injury) (CMS/HCC) Hypothyroidism Hypertension Hyperlipidemia CVA (cerebral vascular accident) (CMS/HCC) Overweight (BMI 25.0-29.9) Debility Fracture of right orbital floor ([facility]/HCC) Malnutrition ([facility]/HCC) Overview Signed 11/06/2024 11:22 AM by Jenny Miller APRN DHT w/TF Oral supplementation MRSA (methicillin resistant staph aureus) culture positive Overview Addendum 11/06/2024 11:26 AM by Jenny Miller APRN Eye wound culture: MRSA Doxycycline Urinary retention Outpatient Follow-Up Future Appointments Date Time Provider Department Center 11/21/2024 12:45 PM Navya Woody MD [facility] Pertinent Physical Exam At Time of Discharge Physical Exam Vitals reviewed. Constitutional: General: She is not in acute distress. Appearance: Normal appearance. She is not ill-appearing. HENT: Head: Normocephalic. Nose: Nose normal. Mouth/Throat: Mouth: Mucous membranes are moist. Eyes: Extraocular Movements: Extraocular movements intact. Conjunctiva/sclera: Conjunctivae normal. Cardiovascular: Rate and Rhythm: Normal rate. Pulmonary: Effort: Pulmonary effort is normal. No respiratory distress. Breath sounds: Normal breath sounds. Abdominal: General: Abdomen is flat. There is no distension. Palpations: Abdomen is soft. Tenderness: There is no abdominal tenderness. Musculoskeletal: General: Signs of injury (swelling to L side of face) present. Skin: General: Skin is warm and dry. Neurological: Mental Status: She is confused. Comments: Alert and oriented to person only Psychiatric: Mood and Affect: Affect is not tearful. Behavior: Behavior normal. Behavior is cooperative. Cognition and Memory: Cognition is impaired. Discharge Disposition/Condition Disposition: Nursing facility (specify) Condition: Stable (s/sx potential problems absent or manageable) I spent >30 minutes of patient care and instruction time in preparation for this discharge. Cosigned by Dionne Jacobs MD at 11/12/2024 7:28 PM EDT Associated attestation - Dionne Jacobs MD - 11/12/2024 7:28 PM EDT The patient was seen only by Advanced Practice Provider ([facility]). * Care Plan - Melony Maldonado - 11/12/2024 10:28 AM EDT Problem: Adult Inpatient Plan of Care Goal: Plan of Care Review Outcome: Ongoing, Progressing Flowsheets (Taken 11/12/2024 0313 by Jazmin Burton, RN) Progress: declining Plan of Care Reviewed With: patient sibling Goal: Patient-Specific Goal (Individualized) Outcome: Ongoing, Progressing Flowsheets (Taken 11/12/2024 0800) Patient/Family-Specific Goals (Include Timeframe): pt will remain free of injury throughout the shift Individualized Care Needs: patient safety management Anxieties, Fears or Concerns: safety Goal: Absence of Hospital-Acquired Illness or Injury Outcome: Ongoing, Progressing Intervention: Identify and Manage Fall Risk Flowsheets (Taken 11/12/2024 1000) Safety Promotion/Fall Prevention: activity supervised Intervention: Prevent Skin Injury Flowsheets Taken 11/12/2024 1000 by Melony Maldonado Body Position: turned right Taken 11/11/20241999 by Jazmin Burton, RN Skin Protection: incontinence pads utilized Intervention: Prevent and Manage VTE (Venous Thromboembolism) Risk Flowsheets (Taken 11/11/20241999 by Jazmin Burton, RN) VTE Prevention/Management: medication Intervention: Prevent Infection Flowsheets (Taken 11/11/2024799 by Andreea Dean, RN) Infection Prevention: hand hygiene promoted rest/sleep promoted Goal: Optimal Comfort and Wellbeing Outcome: Ongoing, Progressing Intervention: Monitor Pain and Promote Comfort Flowsheets (Taken 11/11/20242046 by Jazmin Burton, RN) Pain Management Interventions: medication (see MAR) position adjusted Intervention: Provide Person-Centered Care Flowsheets (Taken 11/11/2024799 by Andreea Dean, RN) Trust Relationship/Rapport: care explained choices provided emotional support provided empathic listening provided questions answered questions encouraged reassurance provided thoughts/feelings acknowledged Problem: Skin Injury Risk Increased Goal: Skin Health and Integrity Outcome: Ongoing, Progressing Intervention: Optimize Skin Protection Flowsheets Taken 11/12/2024 1000 by Melony Maldonado Activity Management: activity adjusted per tolerance Head of Bed (HOB) Positioning: HOB at 60-90 degrees Taken 11/11/20241999 by Jazmin Burton, RN Skin Protection: incontinence pads utilized Taken 11/11/2024799 by Andreea Dean, RN Pressure Reduction Techniques: pressure points protected Pressure Reduction Devices: positioning supports utilized Intervention: Promote and Optimize Oral Intake Flowsheets (Taken 11/11/2024799 by Andreea Dean, RN) Oral Nutrition Promotion: calorie-dense foods provided rest periods promoted Nutrition Interventions: frequent small meals provided supplemental drinks provided Problem: Fall Injury Risk Goal: Absence of Fall and Fall-Related Injury Outcome: Ongoing, Progressing Intervention: Identify and Manage Contributors Flowsheets (Taken 11/11/2024799 by Andreea Dean, RN) Medication Review/Management: medications reviewed Self-Care Promotion: independence encouraged Intervention: Promote Injury-Free Environment Flowsheets (Taken 11/12/2024 1000) Safety Promotion/Fall Prevention: activity supervised Problem: Functional Deficit Goal: Improved Balance and Postural Control Outcome: Ongoing, Progressing Intervention: Optimize Balance and Safe Activity Flowsheets Taken 11/12/2024 1000 by Melony Maldonado Activity Management: activity adjusted per tolerance Safety Promotion/Fall Prevention: activity supervised Taken 11/11/2024799 by Andreea Dean, RN Self-Care Promotion: independence encouraged Goal: Optimal Cognitive Function Outcome: Ongoing, Progressing Intervention: Optimize Cognitive Function Flowsheets (Taken 11/11/2024 08 by Andreea Dean, RN) Sensory Stimulation Regulation: care clustered television on Environment Familiarity/Consistency: daily routine followed Self-Care Promotion: independence encouraged Goal: Optimal Coordination Outcome: Ongoing, Progressing Intervention: Optimize Motor Coordination and Function Flowsheets (Taken 11/11/2024 08 by Andreea Dean, RN) Self-Care Promotion: independence encouraged Goal: Improved Muscle Strength Outcome: Ongoing, Progressing Intervention: Optimize Muscle Strength Flowsheets Taken 11/12/2024 1000 by Melony Maldonado Activity Management: activity adjusted per tolerance Taken 11/11/20241999 by Jazmin Burton RN Activity Assistance Provided: assistance, 2 people Taken 11/11/2024799 by Andreea Dean RN Self-Care Promotion: independence encouraged Goal: Improved Muscle Tone Outcome: Ongoing, Progressing Goal: Optimal Range of Motion Outcome: Ongoing, Progressing Intervention: Maintain Functional Joint Range Position Flowsheets Taken 11/12/2024999 by Melony Maldonado Range of Motion: active ROM (range of motion) encouraged Taken 11/08/20241999 by Sindi Porter RN Positioning/Transfer Devices: pillows applied Goal: Compensation for Sensory Deficit Outcome: Ongoing, Progressing Intervention: Optimize Sensory Function Flowsheets Taken 11/11/20241999 by Jazmin Burton RN Skin Protection: incontinence pads utilized Taken 11/11/2024799 by Andreea Dean RN Pressure Reduction Techniques: pressure points protected Taken 11/08/20241999 by Sindi Porter RN Sensation Impairment Protection: cues provided for safety Problem: Infection Goal: Absence of Infection Signs and Symptoms Outcome: Ongoing, Progressing Intervention: Prevent or Manage Infection Flowsheets Taken 11/11/20241999 by Jazmin Burton RN Isolation Precautions: precautions maintained Taken 11/11/2024799 by Andreea Dean RN Infection Management: aseptic technique maintained Fever Reduction/Comfort Measures: lightweight bedding Problem: Pain Acute Goal: Optimal Pain Control and Function Outcome: Ongoing, Progressing Intervention: Optimize Psychosocial Wellbeing Flowsheets (Taken 11/11/2024799 by Andreea Dean, RN) Supportive Measures: active listening utilized self-care encouraged positive reinforcement provided Diversional Activities: television Spiritual Activities Assistance: affirmation provided Intervention: Develop Pain Management Plan Flowsheets (Taken 11/11/20242046 by Jazmin Burton, RN) Pain Management Interventions: medication (see MAR) position adjusted Intervention: Prevent or Manage Pain Flowsheets (Taken 11/11/2024 0800 by Andreea Dean, RN) Sensory Stimulation Regulation: care clustered television on Bowel Elimination Promotion: adequate fluid intake promoted commode/bedpan at bedside Sleep/Rest Enhancement: awakenings minimized consistent schedule promoted Medication Review/Management: medications reviewed Problem: Enteral Nutrition Goal: Absence of Aspiration Signs and Symptoms Outcome: Ongoing, Progressing Intervention: Minimize Aspiration Risk Flowsheets Taken 11/12/2024 1000 by Melony Maldonado Head of Bed (HOB) Positioning: HOB at 60-90 degrees Taken 11/12/2024 0800 by Melony Maldonado Oral Care: oral rinse provided Taken 11/06/2024 0234 by Pietro Valdovinos, RN Enteral Feeding Safety: placement checked Goal: Feeding Tolerance Outcome: Ongoing, Progressing Intervention: Prevent and Manage Feeding Intolerance Flowsheets (Taken 11/11/2024 0800 by Andreea Dean, RN) Nutrition Support Management: weight trending reviewed * Progress Notes - Reanna Hyatt - 11/12/2024 10:15 AM EDT Case Management Adult Progress Note [place] Mata 64 y.o. female CSN: [id number] Admission: 10/30/2024 2:57 AM Primary Problem: Fall Anticipated Discharge Date: 11/12/24 Has Discharge Plans Changed? No Medicare Second Notice: Housing Circumstances: Not Applicable Housing Circumstances Action Taken: Other na Medically Ready for Discharge: Ready Now Additional Comments Pt anticipated to discharge today at 4pm with family transport To: [facility] Report: [phone] Discharge Summary fax: [phone] / [phone] Escribe new meds/controls to: [facility]. SW will remain available through discharge if needs arise. Reanna Hyatt INFORMATION TECHNOLOGY OFFICER, INTERLOCKING AND SIGNAL MECHANIC Television Journalist * Care Plan - Jazmin Burton RN - 11/12/2024 3:15 AM EDT Problem: Adult Inpatient Plan of Care Goal: Plan of Care Review Outcome: Ongoing, Progressing Flowsheets (Taken 11/12/2024 0313) Progress: declining Plan of Care Reviewed With: patient sibling Goal: Patient-Specific Goal (Individualized) Outcome: Ongoing, Progressing Flowsheets (Taken 11/11/20241999) Patient/Family-Specific Goals (Include Timeframe): pt will remain free from injury throughout this shift Individualized Care Needs: safety management Anxieties, Fears or Concerns: luann Goal: Absence of Hospital-Acquired Illness or Injury Outcome: Ongoing, Progressing Intervention: Prevent Infection Flowsheets (Taken 11/11/2024 0800 by Adnreea Dean RN) Infection Prevention: hand hygiene promoted rest/sleep promoted Goal: Optimal Comfort and Wellbeing Outcome: Ongoing, Progressing Intervention: Monitor Pain and Promote Comfort Flowsheets (Taken 11/11/20242046) Pain Management Interventions: medication (see MAR) position adjusted Problem: Skin Injury Risk Increased Goal: Skin Health and Integrity Outcome: Ongoing, Progressing Intervention: Optimize Skin Protection Flowsheets Taken 11/11/20241999 by Jazmin Burton RN Skin Protection: incontinence pads utilized Taken 11/11/2024 1600 by Andreea Dean, RN Activity Management: activity adjusted per tolerance Head of Bed (HOB) Positioning: HOB elevated Taken 11/11/2024 0800 by Andreea Dean, RN Pressure Reduction Techniques: pressure points protected Pressure Reduction Devices: positioning supports utilized Problem: Fall Injury Risk Goal: Absence of Fall and Fall-Related Injury Outcome: Ongoing, Progressing Intervention: Promote Injury-Free Environment Flowsheets (Taken 11/11/20241999) Safety Promotion/Fall Prevention: activity supervised assistive device/personal items within reach clutter-free environment maintained fall prevention program maintained nonskid shoes/slippers when out of bed room organization consistent toileting scheduled safety round/check completed Problem: Infection Goal: Absence of Infection Signs and Symptoms Outcome: Ongoing, Progressing Intervention: Prevent or Manage Infection Flowsheets Taken 11/11/20241999 by Jazmin Burton RN Isolation Precautions: precautions maintained Taken 11/11/2024 08 by Andreea Dean RN Infection Management: aseptic technique maintained Fever Reduction/Comfort Measures: lightweight bedding Problem: Pain Acute Goal: Optimal Pain Control and Function Outcome: Ongoing, Progressing Intervention: Prevent or Manage Pain Flowsheets (Taken 11/11/2024 08 by Andreea Dean RN) Sensory Stimulation Regulation: care clustered television on Bowel Elimination Promotion: adequate fluid intake promoted commode/bedpan at bedside Sleep/Rest Enhancement: awakenings minimized consistent schedule promoted Medication Review/Management: medications reviewed * Significant Event - Ramez Villegas MD - 11/11/2024 11:26 PM EDT Trauma surgery was called to the patient's bedside at 10:45 p.m. for evaluation. Nursing staff reports that the patient threw herself out of bed at 10:45 p.m.. The patient's sister was in the room atthe time of the incident, however she was asleep and did not witness the fall directly. The the patient is experiencing altered mental status from dementia and delirium, and as such, is not a reliable historian. She currently denies any pain. Head to toe physical exam did not localize any specific regions of pain or injury. Head, cervical spine, chest wall, abdomen, pelvis, legs, arms, and thoracolumbar spinal palpation were negative for pain. With no direct witnesses or reliable accounts of the event, we chose to proceed with noncontrast CTof the head and neck. We also placed the patient in a cervical collar. We ordered a sitter for the patient at bedside to help control agitation. We will follow up scans and monitor any other injuriesthat present themselves. Ramez Villegas MD General Surgery, PGY-1 Pager: [phone] 12:07 AM 11/12/2024 * Nursing Note - Jazmin Burton RN - 11/11/2024 11:15 PM EDT Bed alarm was going off in pt's room, pt's sister who was staying over night came to door and said my sister threw herself out of bed. Pt was lying on her left side, no obvious signs of injury, no c/o pain, vs obtained and provider was contacted. MD Bakari assessed pt; awaiting orders. 11/11/242214 Vital Signs Temp 37 ??C (98.6 ??F) Temp Source Oral Heart Rate 64 Resp 16 BP 119/58 * Care Plan - Falls, Andreea Goss RN - 11/11/2024 3:25 PM EDT Problem: Adult Inpatient Plan of Care Goal: Plan of Care Review Outcome: Ongoing, Progressing Flowsheets (Taken 11/11/2024 1524) Progress: no change Plan of Care Reviewed With: patient Goal: Patient-Specific Goal (Individualized) Outcome: Ongoing, Progressing Flowsheets (Taken 11/11/2024799) Patient/Family-Specific Goals (Include Timeframe): patient will remain free of fall or injury this shift Individualized Care Needs: safety Anxieties, Fears or Concerns: denies Goal: Absence of Hospital-Acquired Illness or Injury Outcome: Ongoing, Progressing Intervention: Identify and Manage Fall Risk Flowsheets (Taken 11/11/2024799) Safety Promotion/Fall Prevention: activity supervised assistive device/personal items within reach clutter-free environment maintained fall prevention program maintained lighting adjusted mobility aid in reach nonskid shoes/slippers when out of bed room organization consistent safety round/check completed toileting scheduled Goal: Optimal Comfort and Wellbeing Outcome: Ongoing, Progressing Intervention: Provide Person-Centered Care Flowsheets (Taken 11/11/2024799) Trust Relationship/Rapport: care explained choices provided emotional support provided empathic listening provided questions answered questions encouraged reassurance provided thoughts/feelings acknowledged Problem: Skin Injury Risk Increased Goal: Skin Health and Integrity Outcome: Ongoing, Progressing Intervention: Promote and Optimize Oral Intake Flowsheets (Taken 11/11/2024799) Oral Nutrition Promotion: calorie-dense foods provided rest periods promoted Nutrition Interventions: frequent small meals provided supplemental drinks provided Problem: Fall Injury Risk Goal: Absence of Fall and Fall-Related Injury Outcome: Ongoing, Progressing Intervention: Promote Injury-Free Environment Flowsheets (Taken 11/11/2024799) Safety Promotion/Fall Prevention: activity supervised assistive device/personal items within reach clutter-free environment maintained fall prevention program maintained lighting adjusted mobility aid in reach nonskid shoes/slippers when out of bed room organization consistent safety round/check completed toileting scheduled Problem: Functional Deficit Goal: Improved Balance and Postural Control Outcome: Ongoing, Progressing Intervention: Optimize Balance and Safe Activity Flowsheets Taken 11/11/2024 1230 by Katie Childers Activity Management: up in chair Taken 11/11/2024799 by Andreea Dean RN Safety Promotion/Fall Prevention: activity supervised assistive device/personal items within reach clutter-free environment maintained fall prevention program maintained lighting adjusted mobility aid in reach nonskid shoes/slippers when out of bed room organization consistent safety round/check completed toileting scheduled Self-Care Promotion: independence encouraged Goal: Optimal Cognitive Function Outcome: Ongoing, Progressing Intervention: Optimize Cognitive Function Flowsheets (Taken 11/11/2024799) Sensory Stimulation Regulation: care clustered television on Environment Familiarity/Consistency: daily routine followed Self-Care Promotion: independence encouraged Goal: Optimal Coordination Outcome: Ongoing, Progressing Intervention: Optimize Motor Coordination and Function Flowsheets (Taken 11/11/2024799) Self-Care Promotion: independence encouraged Goal: Improved Muscle Strength Outcome: Ongoing, Progressing Intervention: Optimize Muscle Strength Flowsheets Taken 11/11/2024 1230 by Katie Childers Activity Management: up in chair Activity Assistance Provided: assistance, 2 people Taken 11/11/2024799 by Andreea Dean RN Self-Care Promotion: independence encouraged Goal: Improved Muscle Tone Outcome: Ongoing, Progressing Goal: Optimal Range of Motion Outcome: Ongoing, Progressing Goal: Compensation for Sensory Deficit Outcome: Ongoing, Progressing Intervention: Optimize Sensory Function Flowsheets Taken 11/11/2024799 by Andreea Dean RN Pressure Reduction Techniques: pressure points protected Skin Protection: incontinence pads utilized Taken 11/08/20241999 by Sindi Porter RN Sensation Impairment Protection: cues provided for safety Problem: Infection Goal: Absence of Infection Signs and Symptoms Outcome: Ongoing, Progressing Intervention: Prevent or Manage Infection Flowsheets (Taken 11/11/2024799) Infection Management: aseptic technique maintained Fever Reduction/Comfort Measures: lightweight bedding Isolation Precautions: precautions maintained Problem: Pain Acute Goal: Optimal Pain Control and Function Outcome: Ongoing, Progressing Intervention: Optimize Psychosocial Wellbeing Flowsheets (Taken 11/11/2024 0800) Supportive Measures: active listening utilized self-care encouraged positive reinforcement provided Diversional Activities: television Spiritual Activities Assistance: affirmation provided Problem: Enteral Nutrition Goal: Absence of Aspiration Signs and Symptoms Outcome: Ongoing, Progressing Goal: Feeding Tolerance Outcome: Ongoing, Progressing Intervention: Prevent and Manage Feeding Intolerance Flowsheets (Taken 11/11/2024 0800) Nutrition Support Management: weight trending reviewed * Assessment & Plan Note - Yuli Gerardo PA - 11/11/2024 2:40 PM EDTAssociated Problem(s): Zygomatic arch fracture (CMS/HCC) 11/01: OR with ENT for ORIF right Zygomatic arch fracture Recommend Ophtho reevaluation of vision loss/changes in addition to entrapment concern since postop Started on Augmentin for hardware in place after surgery Erythromycin optho ointment TID Sinus Precautions for 2 weeks total (11/13) * Assessment & Plan Note - Yuli Gerardo PA - 11/11/2024 2:40 PM EDTAssociated Problem(s): Injury of globe of eye, right, initial encounter S/p canthotomy at OSH Optho following- will reach out for recheck of vision when patient consistently able to participatein exam Sinus precautions x 2 weeks Erythromycin optho ointment TID * Assessment & Plan Note - Yuli Geradro PA - 11/11/2024 2:40 PM EDTAssociated Problem(s): Fall Admit SGT ICU [x] Tertiary 10/31 Transfer to progressive care 11/04 * Assessment & Plan Note - Yuli Gerardo PA - 11/11/2024 2:40 PM EDTAssociated Problem(s): TBI (traumatic brain injury) SAH, IVH NSGY consult DDAVP given at OSH PMR following * Assessment & Plan Note - Yuli Gerardo PA - 11/11/2024 2:40 PM EDTAssociated Problem(s): 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 Resume home meds as appropriate in 2 weeks dt tSAH and IVH * Assessment & Plan Note - Yuli Gerardo PA - 11/11/2024 2:40 PM EDTAssociated Problem(s): ABLA (acute blood loss anemia) H&H stable * Assessment & Plan Note - Yuli Gerardo PA - 11/11/2024 2:40 PM EDTAssociated Problem(s): Hyperglycemia Likely reactive to trauma, recheck and treat as necessary Did not require insulin while in ICU * Assessment & Plan Note - Yuli Gerardo PA - 11/11/2024 2:40 PM EDTAssociated Problem(s): Acute respiratory failure with hypoxia Extubated 10/31/24 Placed on HFNC on 11/01/24 2L NC Stable on RA * Assessment & Plan Note - Yuli Gerardo PA - 11/11/2024 2:40 PM EDTAssociated Problem(s): Lactic acidosis Resolved IVF resuscitation and recheck as necessary * Assessment & Plan Note - Yuli Gerardo PA - 11/11/2024 2:40 PM EDTAssociated Problem(s): Electrolyte abnormality Hypomagnesemia (POA) Hypocalcemia (POA) Replace/treat and recheck as necessary * Assessment & Plan Note - Yuli Gerardo PA - 11/11/2024 2:40 PM EDTAssociated Problem(s): MELISSA (acute kidney injury) Avoid nephrotoxic agents as able and renally dose medications IVF resuscitation as needed * Assessment & Plan Note - Yuli Gerardo PA - 11/11/2024 2:40 PM EDTAssociated Problem(s): Hypothyroidism Home synthroid resumed * Assessment & Plan Note - Yuli Gerardo PA - 11/11/2024 2:40 PM EDTAssociated Problem(s): Hypertension Home amlodipine resumed * Assessment & Plan Note - Yuli Gerardo PA - 11/11/2024 2:40 PM EDTAssociated Problem(s): Hyperlipidemia Home Atorvastatin resumed * Assessment & Plan Note - Yuli Gerardo PA - 11/11/2024 2:40 PM EDTAssociated Problem(s): CVA (cerebral vascular accident) (CMS/HCC) PMH CVA and R sided deficits Resume home meds as appropriate in 2 weeks due to tSAH and IVH * Assessment & Plan Note - Yuli Gerardo PA - 11/11/2024 2:40 PM EDTAssociated Problem(s): Overweight (BMI 25.0-29.9) Could complicate hospitalization and mobility * Assessment & Plan Note - Yuli Gerardo PA - 11/11/2024 2:40 PM EDTAssociated Problem(s): Debility PT/OT following Recommend ERIKA Possible PM&R consult for 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: recommend [id number] BID Improved spasticity, however meds causing nausea; discontinue 11/07 PMR recs to trial baclofen * Assessment & Plan Note - Yuli Gerardo PA - 11/11/2024 2:40 PM EDTAssociated Problem(s): Fracture of right orbital floor 11/01: OR with ENT for right orbital floor fracture repair ENT following ; Augmentin x 10 days (11/11); Sinus precautions x 2 weeks Erythromycin ointment TID * Assessment & Plan Note - Yuli Gerardo PA - 11/11/2024 2:40 PM EDTAssociated Problem(s): Malnutrition (CMS/HCC) DHT w/TF 11/07: Discontinue TF and encourage oral intake 11/08: Poor appetite, started Megace and resumed cyclic tube feedings Oral supplementation PO intake improving per family. Hold off replacing DHT at this time. Re-evaluate 11/11 * Assessment & Plan Note - Yuli Gerardo PA - 11/11/2024 2:40 PM EDTAssociated Problem(s): MRSA (methicillin resistant staph aureus) culture positive Oral doxycyline * Assessment & Plan Note - Yuli Gerardo PA - 11/11/2024 2:40 PM EDTAssociated Problem(s): Urinary retention On Flomax * Progress Notes - Yuli Gerardo PA - 11/11/2024 2:36 PM EDT 11/11/24 [place] Mata HPI [place] Mata is a 64 y/o Female with a PMHx of CVA w/ R sided defecits on ASA/Plavix, HTN, HLP, CAD, and Hypothyroidism who presents on 10/30 s/p fall. Reversed with Anticoagulation was reversed withDDAVP. Injuries include: tSAH, IVH, R tripod fx with non-displaced ZMG, R globe hematoma s/p lateral canthotomy at OSH 11/01: s/p ORIF R zygomatic arch fx and R orbital wall fx repair Interval: Patient is sitting up in bed, comfortable and A&O x 2. NAD. NAEON. VSS. On RA, no SOA. Pain is well-controlled. Tolerating PO diet. Denies N/V, abd pain. Consumed 100% of lunch and dinner yesterday, OK to proceed without DHT. Will discuss with patient's children today. Last BM 11/10. Mobilizing as able. Discussed anticipated hospital course. 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 Edited by: Yuli Gerardo PA at 11/11/2024 0913 Relevant review of systems was obtained as able and is negative unless stated above in HPI. Vital signs: Vitals: 11/11/24 1122 BP: 95/55 Pulse: 70 Resp: Temp: 36.6 ??C (97.8 ??F) SpO2: 94% Physical Exam Vitals reviewed. Constitutional: General: She is not in acute distress. Appearance: Normal appearance. She is not ill-appearing. HENT: Head: Normocephalic. Nose: Nose normal. Mouth/Throat: Mouth: Mucous membranes are moist. Eyes: Extraocular Movements: Extraocular movements intact. Conjunctiva/sclera: Conjunctivae normal. Cardiovascular: Rate and Rhythm: Normal rate. Pulmonary: Effort: Pulmonary effort is normal. No respiratory distress. Breath sounds: Normal breath sounds. Abdominal: General: Abdomen is flat. There is no distension. Palpations: Abdomen is soft. Tenderness: There is no abdominal tenderness. Musculoskeletal: General: Signs of injury (swelling to L side of face) present. Skin: General: Skin is warm and dry. Neurological: Mental Status: She is confused. Comments: Alert and oriented to person only Psychiatric: Mood and Affect: Affect is not tearful. Behavior: Behavior normal. Behavior is cooperative. Cognition and Memory: Cognition is impaired. Intake/Output Summary (Last 24 hours) at 11/11/2024 1436 Last data filed at 11/11/2024 0540 Gross per 24 hour Intake 342 ml Output -- Net 342 ml Lines/Drains/Tubes: Patient Lines/Drains/Airways Status Active Airway None Output by Drain (mL) 11/09/24 0700 - 11/09/24 1859 11/09/24 1900 - 11/10/24 0659 11/10/24 0700 - 11/10/24 1859 11/10/24 1900 - 11/11/24 0659 11/11/24 0700 - 11/11/24 1436 Requested LDAs do not have output data documented. Labs in last 18 hours: CBC WBC ?? Hb ?? Plt ?? Hct ?? ANC ?? INR ??, PTT ??, Anti-Xa ?? MCV ?? BMP Na ?? Cl ?? BUN ?? Glu ?? K ?? Co2 ?? Cr ?? Ca ?? iCa ?? Mg ??, Phos ?? Lactate ?? LFT AST ?? AlkPhos ?? T Prot ?? ALK ?? Bili ?? Alb ?? D.Bili ?? Lab Trends: H/H INR Cr Medications reviewed. Vital signs reviewed. Labs reviewed. Radiography reviewed. Assessment and Plan: Assessment & Plan Zygomatic arch fracture (CMS/HCC) Present on Admission: Yes 11/01: OR with ENT for ORIF right Zygomatic arch fracture Recommend Ophtho reevaluation of vision loss/changes in addition to entrapment concern since postop Started on Augmentin for hardware in place after surgery Erythromycin optho ointment TID Sinus Precautions for 2 weeks total (11/13) Injury of globe of eye, right, initial encounter Present on Admission: Yes S/p canthotomy at OSH Optho following- will reach out for recheck of vision when patient consistently able to participatein exam Sinus precautions x 2 weeks Erythromycin optho ointment TID Fall Present on Admission: Yes Admit SGT ICU [x] Tertiary 10/31 [facility] 11/04 TBI (traumatic brain injury) (CMS/HCC) Present on Admission: Yes SAH, IVH NSGY consult DDAVP given at OSH PMR following Carotid stenosis Present on Admission: 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 Resume home meds as appropriate in 2 weeks dt tSAH and IVH ABLA (acute blood loss anemia) Present on Admission: Yes H&H stable Hyperglycemia Present on Admission: Yes Likely reactive to trauma, recheck and treat as necessary Did not require insulin while in ICU Acute respiratory failure with hypoxia Present on Admission: Yes Extubated 10/31/24 Placed on HFNC on 11/01/24 2L NC Stable on RA Lactic acidosis Present on Admission: Yes Resolved IVF resuscitation and recheck as necessary Electrolyte abnormality Present on Admission: Yes Hypomagnesemia (POA) Hypocalcemia (POA) Replace/treat and recheck as necessary MELISSA (acute kidney injury) (CMS/HCC) Present on Admission: Yes Avoid nephrotoxic agents as able and renally dose medications IVF resuscitation as needed Hypothyroidism Present on Admission: Yes Home synthroid resumed Hypertension Present on Admission: Yes Home amlodipine resumed Hyperlipidemia Present on Admission: Yes Home Atorvastatin resumed CVA (cerebral vascular accident) (CMS/HCC) Present on Admission: Yes PMH CVA and R sided deficits Resume home meds as appropriate in 2 weeks due to tSAH and IVH Overweight (BMI 25.0-29.9) Present on Admission: Yes Could complicate hospitalization and mobility Debility Present on Admission: Yes PT/OT following Recommend ERIKA Possible PM&R consult for 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: recommend [id number] BID Improved spasticity, however meds causing nausea; discontinue 11/07 PMR recs to trial baclofen Fracture of right orbital floor (CMS/HCC) Present on Admission: Yes 11/01: OR with ENT for right orbital floor fracture repair ENT following ; Augmentin x 10 days (11/11); Sinus precautions x 2 weeks Erythromycin ointment TID Malnutrition (CMS/HCC) Present on Admission: No DHT w/TF 11/07: Discontinue TF and encourage oral intake 11/08: Poor appetite, started Megace and resumed cyclic tube feedings Oral supplementation PO intake improving per family. Hold off replacing DHT at this time. Re-evaluate 11/11 MRSA (methicillin resistant staph aureus) culture positive Present on Admission: Not Applicable Oral doxycyline Urinary retention Present on Admission: No On Flomax Plan: - Sufficient PO intake, no DHT needed - Cont megace - Augmentin and Doxycycline thru 11/11 for (+) wound cx - Ophtho following - ENT: sinus precautions for 2 weeks (11/13), Erthromycin Ophtho ointment TID, follow up in 2 weeks after discharge; sign off - PM&R following - Delirium precautions - PT/OT Discharge Dispo: Subacute Rehab Barrier: DHT and TF Edited by: Yuli Gerardo PA at 11/11/2024 1436 ANDREI Beasley * Progress Notes - Sven Hwang MD - 11/11/2024 1:12 PM EDT Physical Medicine & Rehabilitation Inpatient Consult Followup cc: Fall Subjective: Patient seen and examined at bedside, sister at bedside. States that they are discharging tomorrow to [facility]. She reports pt slept more yesterday during the day than normal. No other new concerns at this time. Current Medications: Continuous: Current Continuous Medications[1] Scheduled: Current Scheduled Medications[2] PRN: Current PRN Medications[3] Review of Information: Labs: Lab Results Component Value Date WBC 7.42 11/04/2024 WBC 9.52 11/03/2024 WBC 7.77 11/03/2024 HGB 7.9 (L) 11/04/2024 HGB 8.8 (L) 11/03/2024 HGB 7.6 (L) 11/03/2024 HCT 25.5 (L) 11/04/2024 MCV 88 11/04/2024 PLT 229 11/04/2024 PLT 255 11/03/2024 PLT 193 11/03/2024 Lab Results Component Value Date NA 143 11/04/2024 NA 142 11/03/2024 NA 142 11/01/2024 K 3.9 11/04/2024 K 4.1 11/03/2024 K 4.4 11/01/2024 CL 108 (H) 11/04/2024 CL 109 (H) 11/03/2024 CL 109 (H) 11/01/2024 BUN 21 11/04/2024 BUN 22 11/03/2024 BUN 14 11/01/2024 CREATININE 0.73 11/04/2024 CREATININE 0.78 11/03/2024 CREATININE 0.78 11/01/2024 CALCIUM 7.9 (L) 11/04/2024 CALCIUM 7.9 (L) 11/03/2024 CALCIUM 8.7 (L) 11/01/2024 GLUCOSE 114 (H) 11/04/2024 GLUCOSE 163 (H) 11/03/2024 GLUCOSE 113 (H) 11/01/2024 GLUCOSE 133 (H) 10/31/2024 GLUCOSE 145 (H) 10/30/2024 Lab Results Component Value Date ALT 46 (H) 11/03/2024 ALT 84 (H) 11/01/2024 ALT 24 07/19/2024 AST 32 11/03/2024 AST 72 (H) 11/01/2024 AST 27 07/19/2024 ALKPHOS 154 (H) 11/03/2024 ALKPHOS 194 (H) 11/01/2024 ALKPHOS 105 05/22/2023 BILITOT 0.3 11/03/2024 BILITOT 0.7 11/01/2024 BILITOT 0.3 07/19/2024 Lab Results Component Value Date HGBA1C 5.7 (H) 07/20/2024 Physical Examination: Visit Vitals BP 95/55 Pulse 70 Temp 36.6 ??C (97.8 ??F) (Oral) Ht 1.6 m (5' 2.99 ) Wt 62.1 kg (136 lb 14.5 oz) SpO2 94% BMI 24.26 kg/m?? Gen: NAD, reclining in bed Eyes: no scleral icterus in L eye, R eye shut with edema Neck: supple, no tracheostomy ENT: nares patent, mucous membranes moist CV: regular rate, no BLE edema Resp: nonlabored breathing, no wheezing GI: abd soft, NTTP : che present Skin: warm, dry Heme/lymph/immune: no bruising, no lymphadenopathy Psychiatric: good judgement, good insight MSK: -RUE 04/27 - LUE 06/27 - RLE 03/30, tone present - LLE 06/27 Neurological: awake and alert, participating in conversation, speech fluent MAS 3 R ankle plantar flexors and MAS 1 knee flexors CN II-XII intact Follow up appointments: Future Appointments Date Time Provider Department Center 11/21/2024 12:45 PM Navya Woody MD [facility] Mobility Orders Mobility Protocol: Ortho/Trauma/Spine Mobility Guidelines Spinal Precautions: No cranial, cervical or thoracolumbar spinal precautions necessary Extremity Precautions: No Extremity Precautions Other mobility precautions: Other precautions Other mobility precautions: Other Other: Keep HOB 30 Degrees, OK to Reverse Trendelenburg. ASSESSMENT/PLAN: [place] Mata is a 64 y.o. female w/PMH of CVA (R sided deficits), HTN, HLP, CAD, and hypothyroidism who presented to on 10/30/2024 (LOS: 12d) from OSH after a fall. Injuries after the fall includeIVH, SAH, R tripod fx with non- displaced ZMG, R globe hematoma s/p lateral canthotomy at OSH. Fall, unknown mechanism (sister found her immediately after face down) - IVH (Plavix was reversed with DDAVP) repeat CTH showed enlarged IVH, 1 unit of PLT administered - Spasticity -- increased tone in RLE. Dantrolene d/c 2/2 nausea, recommend Baclofen - Neurogenic bladder, che placed - R tripod with non-displaced zygomatic arch and comminuted R orbital fx S/p R zygomatic arch and orbital floor repair (11/01) - Dysphagia - MBS performed, recommended easy to chew foods - functional decline - gait impairment - ADL impairment - cognitive impairment - HTN, History of CVA with R sided hemiparesis with acute onset spasticity - Hypothyroidism Recommendations: -continue baclofen 5mg BID and monitor for somnolence. Will not increase dose at this time given ptsleeping more during the day, but will likely adjust and sedation will decrease in next few days. Thank you for allowing us to participate in the care of your patient. PM&R will continue to follow. Please page [phone] with any questions, or resident on-call if after hours or on weekends. Sven Hwang MD Physical Medicine & Rehabilitation [1] [2] acetaminophen, 500 mg, Oral, 4x daily amLODIPine, 5 mg, Oral, Daily amoxicillin-clavulanate, 875 mg, Oral, q12h atorvastatin, 40 mg, Oral, Nightly bacitracin, 1 Jar, Topical, BID baclofen, 5 mg, Oral, BID doxycycline, 100 mg, Oral, BID enoxaparin, 30 mg, Subcutaneous, BID erythromycin, 1 Application, Both Eyes, q8h BACILIO FLUoxetine, 20 mg, Oral, Daily levothyroxine, 75 mcg, Oral, q AM megestrol, 400 mg, Oral, Daily mirtazapine, 15 mg, Oral, Nightly polyethylene glycol, 17 g, Oral, BID QUEtiapine, 100 mg, Oral, Nightly senna-docusate, 2 tablet, Oral, BID tamsulosin, 0.4 mg, Oral, Daily with dinner [3] csgwyeoykw-pflxswbmgofrg-hcugdmiz, 1 tablet, Oral, q6h PRN hydrOXYzine pamoate, 25 mg, Oral, q8h PRN ipratropium-albuterol, 3 mL, Nebulization, q6h PRN ondansetron ODT, 4 mg, Oral, q6h PRN OR ondansetron, 4 mg, Intravenous, q6h PRN oxyCODONE, 5 mg, Oral, q8h PRN Cosigned by Benito Stiles DO at 11/11/2024 4:21 PM EDT Associated attestation - Benito Stiles DO - 11/11/2024 4:21 PM EDT I saw and evaluated the patient with the resident/fellow. I discussed the case with the resident/fellow and agree with the findings and plan as documented. * Progress Notes - Rani Dodson RN - 11/11/2024 11:34 AM EDT Case Management Adult Progress Note [place] Mata 64 y.o. female CSN: [id number] Admission: 10/30/2024 2:57 AM Primary Problem: Fall Anticipated Discharge Date: 11/14 Per primary provider, pt is medically ready. Pt was able to eat and does not need a DHT. [facility] can still accept and will start insurance auth today. Pt's family can transport. Family is aware and agreeable to discharge plan. Update: Insurance approved and bed will be available on 11/12 at 4:30 PM. RN to notify family at bedside. [facility] [phone] [phone] [facility] Rani Dodson RN * Care Plan - Pietro Valdovinos RN - 11/11/2024 1:25 AM EDT Problem: Adult Inpatient Plan of Care Goal: Plan of Care Review Outcome: Ongoing, Progressing Flowsheets (Taken 11/11/2024 0122) Progress: no change Plan of Care Reviewed With: patient Problem: Adult Inpatient Plan of Care Goal: Patient-Specific Goal (Individualized) Outcome: Ongoing, Progressing Flowsheets (Taken 11/10/20241999) Patient/Family-Specific Goals (Include Timeframe): patient will be a tolerable pain level throughout shift Individualized Care Needs: pain control Anxieties, Fears or Concerns: pain Problem: Adult Inpatient Plan of Care Goal: Absence of Hospital-Acquired Illness or Injury Outcome: Ongoing, Progressing Intervention: Prevent Infection Flowsheets (Taken 11/11/2024 012) Infection Prevention: environmental surveillance performed equipment surfaces disinfected hand hygiene promoted personal protective equipment utilized rest/sleep promoted Problem: Adult Inpatient Plan of Care Goal: Optimal Comfort and Wellbeing Outcome: Ongoing, Progressing Intervention: Provide Person-Centered Care Flowsheets (Taken 11/11/2024 012) Trust Relationship/Rapport: choices provided emotional support provided empathic listening provided questions encouraged questions answered thoughts/feelings acknowledged reassurance provided Problem: Skin Injury Risk Increased Goal: Skin Health and Integrity Outcome: Ongoing, Progressing Intervention: Promote and Optimize Oral Intake Flowsheets (Taken 11/11/2024 012) Oral Nutrition Promotion: physical activity promoted adaptive equipment use encouraged rest periods promoted social interaction promoted Nutrition Interventions: food preferences provided frequent small meals provided meal set-up provided meals from home/family encouraged Problem: Fall Injury Risk Goal: Absence of Fall and Fall-Related Injury Outcome: Ongoing, Progressing Intervention: Promote Injury-Free Environment Flowsheets (Taken 11/11/2024 012) Safety Promotion/Fall Prevention: activity supervised clutter-free environment maintained fall prevention program maintained lighting adjusted nonskid shoes/slippers when out of bed safety round/check completed Problem: Infection Goal: Absence of Infection Signs and Symptoms Outcome: Ongoing, Progressing Intervention: Prevent or Manage Infection Flowsheets (Taken 11/11/2024 012) Infection Management: aseptic technique maintained Fever Reduction/Comfort Measures: lightweight bedding lightweight clothing fluid intake increased Isolation Precautions: protective Problem: Pain Acute Goal: Optimal Pain Control and Function Outcome: Ongoing, Progressing Intervention: Prevent or Manage Pain Flowsheets (Taken 11/11/2024 012) Sensory Stimulation Regulation: auditory stimulation minimized tactile stimulation minimized care clustered quiet environment promoted visual stimulation minimized Bowel Elimination Promotion: adequate fluid intake promoted ambulation promoted commode/bedpan at bedside privacy promoted Medication Review/Management: medications reviewed * Assessment & Plan Note - Arnoldo Savage PA - 11/10/2024 4:36 PM EDT Associated Problem(s): Lactic acidosis Resolved IVF resuscitation and recheck as necessary * Assessment & Plan Note - Arnoldo Savage PA - 11/10/2024 4:36 PM EDT Associated Problem(s): Malnutrition (CMS/HCC) DHT w/TF 11/07: Discontinue TF and encourage oral intake 11/08: Poor appetite, started Megace and resumed cyclic tube feedings Oral supplementation PO intake improving per family. Hold off replacing DHT at this time. 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 Resume home meds as appropriate in 2 weeks dt tSAH and IVH * Assessment & Plan Note - Arnoldo Savage PA - 11/10/2024 4:36 PM EDT Associated Problem(s): ABLA (acute blood loss anemia) H&H stable * Assessment & Plan Note - Arnoldo Savage PA - 11/10/2024 4:36 PM EDT Associated Problem(s): Hyperglycemia Likely reactive to trauma, recheck and treat as necessary Did not require insulin while in ICU * Assessment & Plan Note - Arnoldo Savage PA - 11/10/2024 4:36 PM EDT Associated Problem(s): Acute respiratory failure with hypoxia Extubated 10/31/24 Placed on HFNC on 11/01/24 2L NC Stable on RA * Assessment & Plan Note - Arnoldo Savage PA - 11/10/2024 4:36 PM EDT Associated Problem(s): Electrolyte abnormality Hypomagnesemia (POA) Hypocalcemia (POA) Replace/treat and recheck as necessary * Assessment & Plan Note - Arnoldo Savage PA - 11/10/2024 4:36 PM EDT Associated Problem(s): MELISSA (acute kidney injury) Avoid nephrotoxic agents as able and renally dose medications IVF resuscitation as needed * Assessment & Plan Note - Arnoldo Savage PA - 11/10/2024 4:36 PM EDT Associated Problem(s): Hypothyroidism Home synthroid resumed * Assessment & Plan Note - Arnoldo Savage PA - 11/10/2024 4:36 PM EDT Associated Problem(s): Hypertension Home amlodipine resumed * Assessment & Plan Note - Arnoldo Savage PA - 11/10/2024 4:36 PM EDT Associated Problem(s): Hyperlipidemia Home Atorvastatin resumed * Assessment & Plan Note - Arnoldo Savage PA - 11/10/2024 4:36 PM EDT Associated Problem(s): CVA (cerebral vascular accident) ([facility]) PMH CVA and R sided deficits Resume home meds as appropriate in 2 weeks due to tSAH and IVH * Assessment & Plan Note - Arnoldo Savage PA - 11/10/2024 4:36 PM EDT Associated Problem(s): Overweight (BMI 25.0-29.9) Could complicate hospitalization and mobility * Assessment & Plan Note - Arnoldo Savage PA - 11/10/2024 4:36 PM EDT Associated Problem(s): Debility PT/OT following Recommend ERIKA Possible PM&R consult for 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: recommend [id number] BID Improved spasticity, however meds causing nausea; discontinue 11/07 PMR recs to trial baclofen * Assessment & Plan Note - Arnoldo Savage PA - 11/10/2024 4:36 PM EDT Associated Problem(s): Fracture of right orbital floor 11/01: OR with ENT for right orbital floor fracture repair ENT following ; Augmentin x 10 days (11/11); Sinus precautions x 2 weeks Erythromycin ointment TID * Assessment & Plan Note - Arnoldo Savage PA - 11/10/2024 4:36 PM EDT Associated Problem(s): MRSA (methicillin resistant staph aureus) culture positive Oral doxycyline * Assessment & Plan Note - Arnoldo Savage PA - 11/10/2024 4:36 PM EDT Associated Problem(s): Urinary retention On Flomax * Assessment & Plan Note - Arnoldo Savage PA - 11/10/2024 4:36 PM EDT Associated Problem(s): Zygomatic arch fracture (CMS/HCC) 11/01: OR with ENT for ORIF right Zygomatic arch fracture Recommend Ophtho reevaluation of vision loss/changes in addition to entrapment concern since postop Started on Augmentin for hardware in place after surgery Erythromycin optho ointment TID Sinus Precautions for 2 weeks total (11/13) * Assessment & Plan Note - Arnoldo Savage PA - 11/10/2024 4:36 PM EDT Associated Problem(s): Injury of globe of eye, right, initial encounter S/p canthotomy at OSH Optho following- will reach out for recheck of vision when patient consistently able to participatein exam Sinus precautions x 2 weeks Erythromycin optho ointment TID * Progress Notes - Arnoldo Savage PA - 11/10/2024 4:33 PM EDT 11/10/24 [place] Mata [facility] [place] Mata is a 64 y/o Female with a PMHx of CVA w/ R sided defecits on ASA/Plavix, HTN, HLP, CAD, and Hypothyroidism who presents on 10/30 s/p fall. Reversed with Anticoagulation was reversed withDDAVP. Injuries include: tSAH, IVH, R tripod fx with non-displaced ZMG, R globe hematoma s/p lateral canthotomy at OSH 11/01: s/p ORIF R zygomatic arch fx and R orbital wall fx repair Interval: Patient in bed with PT at bedside working with patient. NAD, VSS, no O2 requirement. Patient is A&O x 1. States she is open to eating and is overall less agitated today. Last BM 11/10. Denies any N/V, pain. Discussed eating with family (son and niece) who states they believe her eatingis improving and would like to hold off from DHT placement but will re-consider tomorrow if patient's eating doesn't continue to improve. Patient mobilizing in bed as able. Discussed plan of care with patient, family, nursing. No further complaints/concerns/questions at this time. Edited by: Arnoldo Savage PA at 11/10/2024 1279 Relevant review of systems was obtained as able and is negative unless stated above in HPI. Vital signs: Vitals: 11/10/24 1122 BP: 110/52 Pulse: 79 Resp: Temp: 36.9 ??C (98.4 ??F) SpO2: 95% Physical Exam HENT: Mouth/Throat: Mouth: Mucous membranes are moist. Eyes: Comments: R eye closed at time of exam Cardiovascular: Rate and Rhythm: Normal rate. Pulmonary: Effort: Pulmonary effort is normal. No respiratory distress. Breath sounds: Normal breath sounds. No wheezing. Abdominal: General: Abdomen is flat. Bowel sounds are normal. There is no distension. Palpations: Abdomen is soft. Tenderness: There is no abdominal tenderness. Musculoskeletal: General: Signs of injury (swelling to L side of face) present. Skin: General: Skin is warm and dry. Neurological: Mental Status: She is alert. She is disoriented. Comments: Alert and oriented to person only Psychiatric: Mood and Affect: Mood normal. Affect is not tearful. Behavior: Behavior is cooperative. Cognition and Memory: Cognition is impaired. Intake/Output Summary (Last 24 hours) at 11/10/2024 1636 Last data filed at 11/10/2024 0912 Gross per 24 hour Intake 360 ml Output -- Net 360 ml Lines/Drains/Tubes: Patient Lines/Drains/Airways Status Active Airway None Output by Drain (mL) 11/08/24 0700 - 11/08/24 1859 11/08/24 1900 - 11/09/24 0659 11/09/24 0700 - 11/09/24 1859 11/09/24 1900 - 11/10/24 0659 11/10/24 0700 - 11/10/24 1636 Requested LDAs do not have output data documented. Labs in last 18 hours: CBC WBC ?? Hb ?? Plt ?? Hct ?? ANC ?? INR ??, PTT ??, Anti-Xa ?? MCV ?? BMP Na ?? Cl ?? BUN ?? Glu ?? K ?? Co2 ?? Cr ?? Ca ?? iCa ?? Mg ??, Phos ?? Lactate ?? LFT AST ?? AlkPhos ?? T Prot ?? ALK ?? Bili ?? Alb ?? D.Bili ?? Lab Trends: H/H Results from last 7 days Lab Units 11/04/24 0007 HEMOGLOBIN g/dL 7.9* HEMATOCRIT % 25.5* INR Cr Results from last 7 days Lab Units 11/04/24 0007 CREATININE mg/dL 0.73 Medications reviewed. Vital signs reviewed. Labs reviewed. Radiography reviewed. Assessment and Plan: Assessment & Plan Zygomatic arch fracture (CMS/HCC) Present on Admission: Yes 11/01: OR with ENT for ORIF right Zygomatic arch fracture Recommend Ophtho reevaluation of vision loss/changes in addition to entrapment concern since postop Started on Augmentin for hardware in place after surgery Erythromycin optho ointment TID Sinus Precautions for 2 weeks total (11/13) Injury of globe of eye, right, initial encounter Present on Admission: Yes S/p canthotomy at OSH Optho following- will reach out for recheck of vision when patient consistently able to participatein exam Sinus precautions x 2 weeks Erythromycin optho ointment TID Fall Present on Admission: Yes Admit SGT ICU [x] Tertiary 10/31 [facility] 11/04 TBI (traumatic brain injury) (CMS/HCC) Present on Admission: Yes SAH, IVH NSGY consult DDAVP given at OSH PMR following Carotid stenosis 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 on Admission: 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 Resume home meds as appropriate in 2 weeks dt tSAH and IVH ABLA (acute blood loss anemia) Present on Admission: Yes H&H stable Hyperglycemia Present on Admission: Yes Likely reactive to trauma, recheck and treat as necessary Did not require insulin while in ICU Acute respiratory failure with hypoxia Present on Admission: Yes Extubated 10/31/24 Placed on HFNC on 11/01/24 2L NC Stable on RA Lactic acidosis Present on Admission: Yes Resolved IVF resuscitation and recheck as necessary Electrolyte abnormality Present on Admission: Yes Hypomagnesemia (POA) Hypocalcemia (POA) Replace/treat and recheck as necessary MELISSA (acute kidney injury) (CMS/HCC) Present on Admission: Yes Avoid nephrotoxic agents as able and renally dose medications IVF resuscitation as needed Hypothyroidism Present on Admission: Yes Home synthroid resumed Hypertension Present on Admission: Yes Home amlodipine resumed Hyperlipidemia Present on Admission: Yes Home Atorvastatin resumed CVA (cerebral vascular accident) (CMS/HCC) Present on Admission: Yes PMH CVA and R sided deficits Resume home meds as appropriate in 2 weeks due to tSAH and IVH Overweight (BMI 25.0-29.9) Present on Admission: Yes Could complicate hospitalization and mobility Debility Present on Admission: Yes PT/OT following Recommend ERIKA Possible PM&R consult for 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: recommend [id number] BID Improved spasticity, however meds causing nausea; discontinue 11/07 PMR recs to trial baclofen Fracture of right orbital floor (CMS/HCC) Present on Admission: Yes 11/01: OR with ENT for right orbital floor fracture repair ENT following ; Augmentin x 10 days (11/11); Sinus precautions x 2 weeks Erythromycin ointment TID Malnutrition (CMS/HCC) Present on Admission: No DHT w/TF 11/07: Discontinue TF and encourage oral intake 11/08: Poor appetite, started Megace and resumed cyclic tube feedings Oral supplementation PO intake improving per family. Hold off replacing DHT at this time. Re-evaluate 11/11 MRSA (methicillin resistant staph aureus) culture positive Present on Admission: Not Applicable Oral doxycyline Urinary retention Present on Admission: No On Flomax Plan: - Cont to encourage PO intake - Re-evaluate need for DHT tomorrow, 11/11 - Cont megace - Augmentin and Doxycycline thru 11/11 for (+) wound cx - Ophtho following - ENT: sinus precautions for 2 weeks (11/13), Erthromycin Ophtho ointment TID, follow up in 2 weeks after discharge; sign off -PM&R following; appreciate recs -Delirium precautions -PT/OT Discharge Dispo: Subacute Rehab Barrier: DHT and TF Edited by: Arnoldo Savage PA at 11/10/2024 1636 ANDREI Khan * Care Plan - Junior Naila Raines - 11/10/2024 4:13 PM EDT Problem: Adult Inpatient Plan of Care Goal: Plan of Care Review 11/10/20241610 by Junior Naila Raines Outcome: Ongoing, Progressing Flowsheets (Taken 11/10/2024 0027 by Pietro Valdovinos, RN) Progress: no change Plan of Care Reviewed With: patient 11/10/2024 1549 by Junior Naila Raines Outcome: Ongoing, Progressing Flowsheets (Taken 11/10/2024 0027 by Pietro Valdovinos, RN) Progress: no change Plan of Care Reviewed With: patient Goal: Patient-Specific Goal (Individualized) 11/10/2024 161 by Junior Naila Raines Outcome: Ongoing, Progressing Flowsheets (Taken 11/10/2024 0745) Patient/Family-Specific Goals (Include Timeframe): pt will remain free from falls or injury throughout shift Individualized Care Needs: safety Anxieties, Fears or Concerns: none stated 11/10/20241548 by Junior Naila Raines Outcome: Ongoing, Progressing Flowsheets (Taken 11/10/2024 0745) Patient/Family-Specific Goals (Include Timeframe): pt will remain free from falls or injury throughout shift Individualized Care Needs: safety Anxieties, Fears or Concerns: none stated Goal: Absence of Hospital-Acquired Illness or Injury 11/10/2024 1611 by Junior Naila Raines Outcome: Ongoing, Progressing 11/10/2024 1549 by Junior Naila Raines Outcome: Ongoing, Progressing Intervention: Identify and Manage Fall Risk 11/10/2024 1611 by Junior Naila Raines Flowsheets (Taken 11/10/2024 0745) Safety Promotion/Fall Prevention: clutter-free environment maintained fall prevention program maintained activity supervised nonskid shoes/slippers when out of bed room organization consistent safety round/check completed 11/10/2024 1549 by Junior Naila Raines Flowsheets (Taken 11/10/2024 0745) Safety Promotion/Fall Prevention: clutter-free environment maintained fall prevention program maintained activity supervised nonskid shoes/slippers when out of bed room organization consistent safety round/check completed Intervention: Prevent Skin Injury 11/10/2024 1611 by Junior Naila Raines Flowsheets Taken 11/10/2024 1400 by Junior Naila Raines Body Position: weight shifting Taken 11/09/2024 0426 by Jennifer Ayala Skin Protection: incontinence pads utilized 11/10/2024 1549 by Junior Naila Raines Flowsheets Taken 11/10/2024 1400 by Junior Naila Raines Body Position: weight shifting Taken 11/09/2024 0426 by Jennifer Ayala Skin Protection: incontinence pads utilized Intervention: Prevent and Manage VTE (Venous Thromboembolism) Risk Flowsheets (Taken 11/10/2024 0400 by Pietro Valdovinos, RN) VTE Prevention/Management: bilateral SCDs (sequential compression devices) off patient refused intervention previous patient education reinforced medication Intervention: Prevent Infection Flowsheets (Taken 11/10/2024 0027 by Pietro Valdovinos, RN) Infection Prevention: environmental surveillance performed equipment surfaces disinfected hand hygiene promoted personal protective equipment utilized rest/sleep promoted Goal: Optimal Comfort and Wellbeing 11/10/2024 1611 by Junior Naila Raines Outcome: Ongoing, Progressing 11/10/2024 1549 by Junior Naila Raines Outcome: Ongoing, Progressing Intervention: Monitor Pain and Promote Comfort Flowsheets (Taken 11/10/2024 0000 by Pietro Valdovinos, RN) Pain Management Interventions: medication (see MAR) Intervention: Provide Person-Centered Care Flowsheets (Taken 11/10/2024 0027 by Pietro Valdovinos, RN) Trust Relationship/Rapport: care explained choices provided emotional support provided questions encouraged questions answered Problem: Skin Injury Risk Increased Goal: Skin Health and Integrity 11/10/2024 1611 by Junior Naila Raines Outcome: Ongoing, Progressing 11/10/2024 1549 by Junior Naila Raines Outcome: Ongoing, Progressing Intervention: Optimize Skin Protection Flowsheets Taken 11/10/2024 1020 by Jelly Clay, RN Activity Management: up in chair Taken 11/10/2024 0800 by aKtie Childers Head of Bed (HOB) Positioning: HOB elevated Taken 11/09/2024 0426 by Jennifer Ayala Skin Protection: incontinence pads utilized Taken 11/08/20241999 by Sindi Porter, RN Pressure Reduction Techniques: positioned off wounds pressure points protected weight shift assistance provided Pressure Reduction Devices: positioning supports utilized Intervention: Promote and Optimize Oral Intake Flowsheets (Taken 11/10/2024 0027 by Pietro Valdovinos, RN) Oral Nutrition Promotion: adaptive equipment use encouraged physical activity promoted social interaction promoted rest periods promoted Nutrition Interventions: food preferences provided frequent small meals provided meal set-up provided Problem: Fall Injury Risk Goal: Absence of Fall and Fall-Related Injury 11/10/2024 1611 by Junior Naila Raines Outcome: Ongoing, Progressing 11/10/2024 1549 by Junior Naila Raines Outcome: Ongoing, Progressing Intervention: Identify and Manage Contributors Flowsheets Taken 11/10/2024 0027 by Pietro Valdovinos, camp boss Review/Management: medications reviewed Taken 11/01/20241999 by Javi Frank, RN Self-Care Promotion: independence encouraged Intervention: Promote Injury-Free Environment Flowsheets (Taken 11/10/2024 0745) Safety Promotion/Fall Prevention: clutter-free environment maintained fall prevention program maintained activity supervised nonskid shoes/slippers when out of bed room organization consistent safety round/check completed Problem: Functional Deficit Goal: Improved Balance and Postural Control 11/10/2024 1611 by Junior Naila Raines Outcome: Ongoing, Progressing 11/10/2024 1549 by Junior Naila Raines Outcome: Ongoing, Progressing Intervention: Optimize Balance and Safe Activity Flowsheets Taken 11/10/2024 1020 by Jelly Clay, RN Activity Management: up in chair Taken 11/10/2024 0745 by Junior Naila Raines Safety Promotion/Fall Prevention: clutter-free environment maintained fall prevention program maintained activity supervised nonskid shoes/slippers when out of bed room organization consistent safety round/check completed Taken 11/01/20241999 by Javi Frank RN Self-Care Promotion: independence encouraged Goal: Optimal Cognitive Function 11/10/2024 1611 by Junior Naila Raines Outcome: Ongoing, Progressing 11/10/2024 1549 by Junior Naila Raines Outcome: Ongoing, Progressing Intervention: Optimize Cognitive Function Flowsheets Taken 11/10/2024 0027 by Pietro Valdovinos RN Sensory Stimulation Regulation: care clustered visual stimulation minimized quiet environment promoted Taken 11/08/20241999 by Sindi Porter RN Environment Familiarity/Consistency: daily routine followed Taken 11/01/20241999 by Javi Frank RN Self-Care Promotion: independence encouraged Goal: Optimal Coordination 11/10/2024 1611 by Junior Naila Raines Outcome: Ongoing, Progressing 11/10/2024 1549 by Junior Naila Raines Outcome: Ongoing, Progressing Intervention: Optimize Motor Coordination and Function Flowsheets (Taken 11/01/20241999 by Javi Frank, LUANNE) Self-Care Promotion: independence encouraged Goal: Improved Muscle Strength 11/10/2024 1611 by Junior Naila Raines Outcome: Ongoing, Progressing 11/10/2024 1549 by Junior Naila Raines Outcome: Ongoing, Progressing Intervention: Optimize Muscle Strength Flowsheets Taken 11/10/2024 1020 by Jelly Clay, RN Activity Management: up in chair Activity Assistance Provided: assistance, 2 people Taken 11/01/20241999 by Javi Frank RN Self-Care Promotion: independence encouraged Goal: Improved Muscle Tone 11/10/2024 1611 by Junior Naila Raines Outcome: Ongoing, Progressing 11/10/2024 1549 by Junior Naila Raines Outcome: Ongoing, Progressing Goal: Optimal Range of Motion 11/10/2024 1611 by Junior Naila Raines Outcome: Ongoing, Progressing 11/10/2024 1549 by Junior Naila Raines Outcome: Ongoing, Progressing Intervention: Maintain Functional Joint Range Position Flowsheets Taken 11/10/2024 1200 by Junior Naila Raines Range of Motion: active ROM (range of motion) encouraged ROM (range of motion) performed Taken 11/08/20241999 by Sindi Porter RN Positioning/Transfer Devices: pillows applied Goal: Compensation for Sensory Deficit 11/10/2024 1611 by Junior Naila Raines Outcome: Ongoing, Progressing 11/10/2024 1549 by Junior Naila Raines Outcome: Ongoing, Progressing Intervention: Optimize Sensory Function Flowsheets Taken 11/09/2024 0426 by Jennifer Ayala Skin Protection: incontinence pads utilized Taken 11/08/20241999 by Sindi Porter RN Pressure Reduction Techniques: positioned off wounds pressure points protected weight shift assistance provided Sensation Impairment Protection: cues provided for safety Problem: Infection Goal: Absence of Infection Signs and Symptoms 11/10/2024 1611 by Junior Naila Raines Outcome: Ongoing, Progressing 11/10/2024 1549 by Junior Naila Raines Outcome: Ongoing, Progressing Intervention: Prevent or Manage Infection Flowsheets Taken 11/10/2024 0745 by Junior Naila Raines Isolation Precautions: protective precautions maintained Taken 11/10/2024 0027 by Pietro Valdovinos RN Infection Management: aseptic technique maintained Fever Reduction/Comfort Measures: lightweight clothing lightweight bedding fluid intake increased Problem: Pain Acute Goal: Optimal Pain Control and Function 11/10/2024 1611 by Junior Naila Raines Outcome: Ongoing, Progressing 11/10/2024 1549 by Junior Naila Raines Outcome: Ongoing, Progressing Intervention: Optimize Psychosocial Wellbeing Flowsheets Taken 11/08/20241999 by Sindi Porter RN Supportive Measures: active listening utilized positive reinforcement provided Taken 11/07/20241999 by Sindi Porter RN Diversional Activities: television Taken 11/05/2024 1019 by Jelly Clay RN Spiritual Activities Assistance: hope instilled Intervention: Develop Pain Management Plan Flowsheets (Taken 11/10/2024 0000 by Pietro Valdovinos, RN) Pain Management Interventions: medication (see MAR) Intervention: Prevent or Manage Pain Flowsheets (Taken 11/10/2024 0027 by Pietro Valdovinos, RN) Sensory Stimulation Regulation: care clustered visual stimulation minimized quiet environment promoted Bowel Elimination Promotion: privacy promoted adequate fluid intake promoted ambulation promoted commode/bedpan at bedside Sleep/Rest Enhancement: awakenings minimized natural light exposure provided noise level reduced regular sleep/rest pattern promoted Medication Review/Management: medications reviewed Problem: Enteral Nutrition Goal: Absence of Aspiration Signs and Symptoms 11/10/2024 1611 by Junior Naila Raines Outcome: Ongoing, Progressing 11/10/2024 1549 by Junior Naila Raines Outcome: Ongoing, Progressing Intervention: Minimize Aspiration Risk Flowsheets Taken 11/10/2024 0800 by Katie Childers Head of Bed (HOB) Positioning: HOB elevated Taken 11/06/2024 0234 by Pietro Valdovinos RN Enteral Feeding Safety: placement checked Oral Care: lip lubricant applied mouth swabbed mouth suctioned Goal: Feeding Tolerance 11/10/2024 1611 by Junior Naila Raines Outcome: Ongoing, Progressing 11/10/2024 1549 by Junior Naila Raines Outcome: Ongoing, Progressing * Progress Notes - Rani Dodson RN - 11/10/2024 10:44 AM EDT Case Management Adult Progress Note [place] Mata 64 y.o. female CSN: [id number] Admission: 10/30/2024 2:57 AM Primary Problem: Fall Anticipated Discharge Date: 11/15 Pt removed DHT and is agreeable to eating more if family brings food from home. Provider wants to continue to monitor oral intake. Pt may need DHT replaced if unable to take in enough calories. Referrals expanded to [facility] facilities in case pt needs DHT replaced. Rani Dodson RN * Progress Notes - Bettie Benitez - 11/10/2024 10:21 AM EDT Occupational Therapy Treatment Patient Name: [place] Mata Today's Date: 11/10/2024 OT Discharge Recommendations: Subacute rehab Equipment Recommended: Defer to facility Subjective Just tell me what to do, I'm a wimp. Participants in Care Family/Caregiver Present: Yes Family/Caregiver: Other (Specify) (Niece came in during session) Presentation Oxygen Therapy: None (Room air) Lines and Tubes: Intravenous access Pre-Session: Supine, Head of bed elevated, Bed alarm, Lines intact Pre-Session Comments: RN agreeable to therapy session. Post-Session: Sitting in chair, Chair alarm, Lines intact, RN notified, Call light in reach Post-Session Comments: All needs met Precautions Medical Precautions: Fall precautions, Sinus Objective Pain No pain reported Delirium Screening RASS: Alert and calm Confusion Assessment Method-ICU (CAM-ICU/PCAM-ICU) Feature 3: Altered Level of Consciousness: Negative Cognition Cognition Overall Cognitive Status: Impaired Arousal/Alertness: Delayed responses to stimuli Mood/Behavior: Alert Orientation Level: Oriented to person, Disoriented to situation, Disoriented to time, Disoriented to place Orientation Level Comments: Pt was orineted to her name and and knew she was in [place]. Pt did not know the place, current month or year and was re- oriented. Pt was sitll not orineted after 5 min. Pt reported I don't know to place, month, and year when MD asked pt. Single Step Commands: With increased time, With repetition Multi-Step Commands: With increased time, With repetition Method of Communication: Verbal Safety Judgment: Decreased awareness of need for assistance Awareness of Errors: Assistance required to identify errors made, Assistance required to correct errors made Deficit Awareness: Decreased awareness of deficits Attention Span: Attends with cues to redirect Bed Mobility Bed Mobility Exam: Scooting/Bridging Level of [place]: Dependent Physical/Nonphysical Assist: Verbal Cues, Nonverbal cues (demo/gestures), Additional assist utilized for safety, Moderate cues Bed Mobility Exam: Supine to Sit Level of [place]: Maximum assist (25% patient's effort) Physical/Nonphysical Assist: Verbal Cues, Nonverbal cues (demo/gestures), Additional assist utilized for safety, HOB elevated, Moderate cues Assistive Device: Bed rails Transfers Transfer Exam: Sit to stand Level of [place]: Maximum assist (25% patient's effort) Physical/Nonphysical Assist: Verbal Cues, Nonverbal cues (demo/gestures), Additional assist utilized for safety, Moderate cues Assistive Device: Hand held assist Transfer Exam: Stand to Sit Level of [place]: Maximum assist (25% patient's effort) Physical/Nonphysical Assist: Verbal Cues, Nonverbal cues (demo/gestures), Additional assist utilized for safety, Moderate cues Assistive Device: Hand held assist Transfer Exam: Bed to Chair/Chair to Bed Level of [place]: Maximum assist (25% patient's effort) Physical/Nonphysical Assist: Verbal Cues, Nonverbal cues (demo/gestures), Moderate cues Type of Transfer: Stand-pivot Assistive Device: Hand held assist Self-Care Interventions Self Care/Home Management (ADLs) Time Entry: 43 Therapist set up environment to facilitate safe mobility. Pt required Max A x 2 for supine to sit EOB with increased time and cues for initiation. Pt sat EOB for 8 min with Min A for static sitting balance with B UE support. Pt demo right posterior lean with dynamic sitting balance and required ModA and cues to correct to increase sitting balance and core strengthening. Pt required Max A x 2 forsit to stand with [employer] and was able to stand for 10 sec before needing to sit back down. Pt stood again with Max A x 2 [employer] and was able take a side step or to the chair with Max cues and weight shifting. Pt sat unsupported in the chair for 8 min with SBA to increase core strength for functional tasks. Pt completed sit to stand with Max A x 2 with C[employer] and required cues for posture. Pt was able to stand for 20 sec and take 1 small side step with Max cues. Pt was positioned in the chair with pillows for comfort. Grooming Grooming Level of Assistance: Setup, Minimum assistance Grooming Where Assessed: Chair level (unsupported in the chair) Grooming Interventions: Pt washed her face and brushed her hair with cues for initiation of tasks with assist to brush the back of her hair with cues to use her R UE. Lower Extremity Dressing Sock Level of Assistance: Dependent LE Dressing Where Assessed: Edge of bed LE Dressing Interventions: Therapist attempted to have pt don B socks, however she required Dep A to decreased sitting balance and flexability. Assessment Pt tolerated session without adverse reaction and continues to progress toward her goals. Pt demo slow processing and required increased time and cues for initiation of tasks. Pt required Max A x 2 for bed mobility, sit to stand, and functional transfers. Pt required Dep A for LB dressing and demo decreased activity tolerance and sitting balance. Pt is a high fall risk and is not safe to discharge home. Pt continues to jazz most appropriate for subacute rehab to increase independence with self care tasks and functional transfers to reduce child care giver burden. OT Recommendations Discharge Destination: Subacute rehab Discharge Equipment: Defer to facility Plan Continue OT plan of care Goals OT GOAL DETAILS Goal Established Date Time Frame Goal Status OT Goal 1: pt will consistently be oriented x 4 x 3 tx sessions 10/31/24 2 weeks OT Goal 2: pt will consistently follow 1 step commands with 100% accuracy 10/31/24 2 weeks OT Goal 3: pt will complete bed to commode transfers with mod assist x 2 utilizing AAD PRN 10/31/24 2 weeks OT Goal 4: pt will complete simple grooming tasks with mod assist x 1 utilizing compensatory techniques as needed while seated EOB 10/31/24 OT Goal 5: pt will participate in UE HEP to increase overall strength for increase independence with self cares and mobility 10/31/24 2 weeks Written by Bettie Benitez on 11/10/24 at 12:01 PM. * Progress Notes - Nikki Sena N - 11/10/2024 10:20 AM EDT Physical Therapy Treatment Patient Name: [place] Mata Today's Date: 11/10/2024 Total Treatment Time: 42 Minutes PT Discharge Recommendations: Subacute rehab Equipment Recommended: Defer to facility Subjective RN and patient agreed to physical therapy services this date. Participants in Care Family/Caregiver Present: Yes Family/Caregiver: Other (Specify) (Niece entered during session.) Brand Representative: Not Applicable Presentation Oxygen Therapy: None (Room air) Lines and Tubes: Peripheral IV 10/30/24 Left Antecubital (Active) Pre-Session: Supine, Head of bed elevated, Bed alarm, Lines intact Post-Session: Sitting in chair, Chair alarm, Lines intact, RN notified, Call light in reach Post-Session Comments: Patient positioned for comfort and pressure relief following session with needs in reach. RN informed of session and time to reapply adjustable anti-contracture boot. Precautions Medical Precautions: Fall precautions, Sinus Objective Pain Patient denied having any pain with inquiry. Delirium Screening RASS: Alert and calm Confusion Assessment Method-ICU (CAM-ICU/PCAM-ICU) Feature 3: Altered Level of Consciousness: Negative Therapeutic Activity (42 minutes) Patient participated in therapeutic activities including bed mobility, edge of bed sitting, functional transfers, and balance to improve strength, balance, endurance and independence with functional mobility. Verbal, visual, and tactile cues provided by therapist throughout session for sequencing, self pacing, fall prevention, and proper body mechanics to improve safety and efficiency with functional mobility. Bed Mobility Bed Mobility Exam: Scooting/Bridging Level of [place]: Dependent Physical/Nonphysical Assist: Verbal Cues, Nonverbal cues (demo/gestures), Additional assist utilized for safety Bed Mobility Exam: Supine to Sit Level of [place]: Maximum assist (25% patient's effort) Physical/Nonphysical Assist: Verbal Cues, Nonverbal cues (demo/gestures), Additional assist utilized for safety, HOB elevated Verbal and tactile cues provided to sequence BLEs to the edge of bed, reach towards bed rail, and push torso upright to achieve bed mobility. Verbal cues on seated scooting hips towards edge of bed for improved balance with use of draw sheet. Transfers Transfer Exam: Sit to stand Level of [place]: Maximum assist (25% patient's effort) Physical/Nonphysical Assist: Verbal Cues, Nonverbal cues (demo/gestures), Additional assist utilized for safety Assistive Device: Hand held assist Transfer Exam: Stand to Sit Level of [place]: Maximum assist (25% patient's effort) Physical/Nonphysical Assist: Verbal Cues, Nonverbal cues (demo/gestures), Additional assist utilized for safety Assistive Device: Hand held assist Transfer Exam: Bed to Chair/Chair to Bed Level of [place]: Maximum assist (25% patient's effort) Physical/Nonphysical Assist: Verbal Cues, Nonverbal cues (demo/gestures) Type of Transfer: Stand-pivot Assistive Device: Hand held assist Verbal and tactile cues provided on proper hand placement, proper foot placement shoulder width apart for improved base of support, and to anteriorly weight shift by rocking 3x for improved momentum to stand. Verbal cues provided to feel surface behind BLEs, reach back for surface, and ease into sitting for good eccentric control during stand to sit transfer onto surface for improved safety. She completed 3 sit to stand transfers- 2x from the BS and 1x from the recliner chair. SPT performed tosafely complete bed to chair transfer. Ambulation Patient not able to progress towards ambulation due to generalized weakness, decreased standing tolerance, and difficulty weight shifting with side steps. Balance Static Sitting Balance Static Sitting-Balance Support: Right upper extremity support, Left upper extremity support, Feet supported Static Sitting-Level of Assistance: Minimum assistance Dynamic Sitting Balance Dynamic Sitting-Balance Support: Right upper extremity support, Left upper extremity support, Feet supported Dynamic Sitting-Balance: Lateral weight shifts, Anterior/Posterior weight shifts Level of Assistance: Moderate assistance Static Standing Balance Static Standing-Balance Support: Right upper extremity support, Left upper extremity support Static Standing-Level of Assistance: Maximum assistance Dynamic Standing Balance Dynamic Standing-Balance Support: Right upper extremity support, Left upper extremity support Dynamic Standing-Balance: Lateral weight shifts Dynamic Standing Level of Assistance: Maximum assistance Patient sat upright unsupported at EOB x 8 minutes and x10 minutes in the recliner chair in attemptto increase trunk strength, tolerance to upright position, and sitting balance for participation inupright activities. She presented with weight shift right of midline, rounded shoulders, and forward head. Education provided to lean onto left elbow to re-orient to midline, proper hand placement onsurfaces to improve balance, and scapular retraction/forward head and gaze. Patient returned demonstration with cueing. She initially required Moderate assist at EOB for balance then progressed to CGA/Minimum assist static sitting. During dynamic sitting balance, she required Minimum/Moderate assist for balance. In standing, she presented with a flexed posture at trunk/hips with verbal cues at posterior spine and pelvis for trunk upright. She attempted side stepping towards the recliner chair with advancing LLE and observed difficulty weight shifting towards the left to advance RLE, SPT completed to transfer to the chair safely. In standing from the recliner chair she side stepped with RLE with Maximum assist required at pelvis to lateral weight shift towards the left during advancement of RLE. She participated in static standing trials: standing from the EOB x10 seconds and standing from the recliner chair x20 seconds with assist x2. Splinting Pre-Fabricated Splint: Adjustable anti-contracture boot, Right LE Skin Assessment Skin Assessment: Intact (Bruising distal to lateral malleolus) Splinting Application and Wearing Schedule: Contact PT for questions/concerns, Assess skin every shift (On/Off Right LE only every 2 hours.) Patient with Adjustable anti-contracture boot donned to RLE upon arrival. Assistance provided on RLE ankle dorsiflexion/plantar flexion following removal of Adjustable anti-contracture boot. Patient denied discomfort from the Adjustable anti-contracture boot. Per RN, patient on wear schedule and informed RN to don Adjustable anti-contracture boot at noon to remain on wear schedule with verbalizedunderstanding. Assessment Patient tolerated session without adverse reaction. Patient is improving, as noted by less assistance being required for patient to maintain midline in sitting- she required CGA/Minimum assist duringthis PT treatment compared to last PT treatment. Patient has the following impairments: impaired activity tolerance, gross functional weakness, impaired posture, impaired balance, and poor transfer sequencing, which is limiting the patient from performing independent functional mobility. Patient guanaco fall risk. Will progress mobility as appropriate. Patient would continue to benefit from skilled PT services to decrease fall risk and promote independence with functional mobility, in order to maximize potential level of function. Patient remains a high fall risk with transfers and thus is unsafe for discharge to home. She is currently unable to ambulate a household distance which is in contrast to her baseline level of mobility, and she is also unable to navigate x2 steps required to enter her home. Patient's needs can not be met at a lower level of care (home health or outpatient) and at this time patient would benefit from subacute rehab for further instruction to become more independent and improve functional transfers and progress towards ambulation prior to return to home as patient was in dependent with household ambulation with AD prior to admission per initial PT evaluation. PT Recommendations Discharge Destination: Subacute rehab Discharge Equipment: Defer to facility Plan Continue with PT POC. PT Goals PT GOAL DETAILS Goal Established Date Time Frame Goal Status PT Goal 1: Pt will transfer supine<>sit MIN A 10/31/24 2 weeks PT Goal 2: Pt will transfer sit<>stand and bed<>chair MIN A with LRAD as appropriate 10/31/24 2 weeks PT Goal 3: Pt will ambulate x25ft MIN A with LRAD as appropriate 10/31/24 2 weeks PT Goal 4: Pt/Pt's family will be IND with HEP, safety recommendations, and discharge recommendations. 10/31/24 2 weeks PT Goal 5: Pt will tolerate adjustable anti-contracture boot right LE for improved positioning of ankle per schedule without adverse reactions 11/09/24 1 week Written by Nikki Sena on 11/10/24 at 11:39 AM. * Care Plan - Pietro Valdovinos RN - 11/10/2024 12:30 AM EDT Problem: Adult Inpatient Plan of Care Goal: Plan of Care Review Outcome: Ongoing, Progressing Flowsheets (Taken 11/10/202426) Progress: no change Plan of Care Reviewed With: patient Problem: Adult Inpatient Plan of Care Goal: Patient-Specific Goal (Individualized) Outcome: Ongoing, Progressing Flowsheets (Taken 11/09/20241999) Patient/Family-Specific Goals (Include Timeframe): Patient will be free from injuries throughout shift Individualized Care Needs: safety Anxieties, Fears or Concerns: none Problem: Adult Inpatient Plan of Care Goal: Absence of Hospital-Acquired Illness or Injury Outcome: Ongoing, Progressing Intervention: Prevent Infection Flowsheets (Taken 11/10/202426) Infection Prevention: environmental surveillance performed equipment surfaces disinfected hand hygiene promoted personal protective equipment utilized rest/sleep promoted Problem: Adult Inpatient Plan of Care Goal: Optimal Comfort and Wellbeing Outcome: Ongoing, Progressing Intervention: Provide Person-Centered Care Flowsheets (Taken 11/10/202426) Trust Relationship/Rapport: care explained choices provided emotional support provided questions encouraged questions answered Problem: Skin Injury Risk Increased Goal: Skin Health and Integrity Outcome: Ongoing, Progressing Intervention: Promote and Optimize Oral Intake Flowsheets (Taken 11/10/202426) Oral Nutrition Promotion: adaptive equipment use encouraged physical activity promoted social interaction promoted rest periods promoted Nutrition Interventions: food preferences provided frequent small meals provided meal set-up provided Problem: Fall Injury Risk Goal: Absence of Fall and Fall-Related Injury Outcome: Ongoing, Progressing Intervention: Promote Injury-Free Environment Flowsheets (Taken 11/10/202426) Safety Promotion/Fall Prevention: activity supervised assistive device/personal items within reach clutter-free environment maintained fall prevention program maintained safety round/check completed nonskid shoes/slippers when out of bed Problem: Infection Goal: Absence of Infection Signs and Symptoms Outcome: Ongoing, Progressing Intervention: Prevent or Manage Infection Flowsheets (Taken 11/10/2024 002) Infection Management: aseptic technique maintained Fever Reduction/Comfort Measures: lightweight clothing lightweight bedding fluid intake increased Isolation Precautions: protective Problem: Pain Acute Goal: Optimal Pain Control and Function Outcome: Ongoing, Progressing Intervention: Prevent or Manage Pain Flowsheets (Taken 11/10/2024 0027) Sensory Stimulation Regulation: care clustered visual stimulation minimized quiet environment promoted Bowel Elimination Promotion: privacy promoted adequate fluid intake promoted ambulation promoted commode/bedpan at bedside Sleep/Rest Enhancement: awakenings minimized natural light exposure provided noise level reduced regular sleep/rest pattern promoted Medication Review/Management: medications reviewed * Assessment & Plan Note - Arnoldo Savage PA - 11/09/2024 5:57 PM EDT Associated Problem(s): ABLA (acute blood loss anemia) H&H stable * Assessment & Plan Note - Arnoldo Savage PA - 11/09/2024 5:57 PM EDT Associated Problem(s): Debility PT/OT following Recommend ERIKA Possible PM&R consult for 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: recommend [id number] BID Improved spasticity, however meds causing nausea; discontinue 11/07 PMR recs to trial baclofen * Assessment & Plan Note - Arnoldo Savage PA - 11/09/2024 5:57 PM EDT Associated Problem(s): Malnutrition (CMS/HCC) DHT w/TF 11/07: Discontinue TF and encourage oral intake 11/08: Poor appetite, started Megace and resumed cyclic tube feedings Oral supplementation Hold off replacing DHT per family request, re-eval tomorrow * Assessment & Plan Note - Arnoldo Savage PA - 11/09/2024 5:57 PM EDT Associated Problem(s): Zygomatic arch fracture (CMS/HCC) 11/01: OR with ENT for ORIF right Zygomatic arch fracture Recommend Ophtho reevaluation of vision loss/changes in addition to entrapment concern since postop Started on Augmentin for hardware in place after surgery Erythromycin optho ointment TID Sinus Precautions for 2 weeks total * Assessment & Plan Note - Arnoldo Savage PA - 11/09/2024 5:57 PM EDT Associated Problem(s): Injury of globe of eye, right, initial encounter S/p canthotomy at OSH Optho following- will reach out for recheck of vision when patient consistently able to participatein exam Sinus precautions x 2 weeks Erythromycin optho ointment TID * Assessment & Plan Note - Arnoldo Savage PA - 11/09/2024 5:57 PM EDT Associated Problem(s): Fall Admit SGT ICU [x] Tertiary 10/31 Transfer to progressive care 11/04 * Assessment & Plan Note - Arnoldo Savage PA - 11/09/2024 5:57 PM EDT Associated Problem(s): TBI (traumatic brain injury) SAH, IVH NSGY consult DDAVP given at OSH PMR following * Assessment & Plan Note - Arnoldo Savage PA - 11/09/2024 5:57 PM EDT Associated Problem(s): 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 Resume home meds as appropriate in 2 weeks dt tSAH and IVH * Assessment & Plan Note - Arnoldo Savage PA - 11/09/2024 5:57 PM EDT Associated Problem(s): Hyperglycemia Likely reactive to trauma, recheck and treat as necessary Did not require insulin while in ICU * Assessment & Plan Note - Arnoldo Savage PA - 11/09/2024 5:57 PM EDT Associated Problem(s): Acute respiratory failure with hypoxia Extubated 10/31/24 Placed on HFNC on 11/01/24 2L NC Stable on RA * Assessment & Plan Note - Arnoldo Savage PA - 11/09/2024 5:57 PM EDT Associated Problem(s): Lactic acidosis IVF resuscitation and recheck as necessary * Assessment & Plan Note - Arnoldo Savage PA - 11/09/2024 5:57 PM EDT Associated Problem(s): Electrolyte abnormality Hypomagnesemia (POA) Hypocalcemia (POA) Replace/treat and recheck as necessary * Assessment & Plan Note - Arnoldo Savage PA - 11/09/2024 5:57 PM EDT Associated Problem(s): MELISSA (acute kidney injury) Avoid nephrotoxic agents as able and renally dose medications IVF resuscitation as needed * Assessment & Plan Note - Arnoldo Savage PA - 11/09/2024 5:57 PM EDT Associated Problem(s): Hypothyroidism Home synthroid resumed * Assessment & Plan Note - Arnoldo Savage PA - 11/09/2024 5:57 PM EDT Associated Problem(s): Hypertension Home amlodipine resumed * Assessment & Plan Note - Arnoldo Savage PA - 11/09/2024 5:57 PM EDT Associated Problem(s): Hyperlipidemia Home Atorvastatin resumed * Assessment & Plan Note - Arnoldo Savage PA - 11/09/2024 5:57 PM EDT Associated Problem(s): CVA (cerebral vascular accident) ([facility]) PMH CVA and R sided deficits Resume home meds as appropriate in 2 weeks due to tSAH and IVH * Assessment & Plan Note - Arnoldo Savage PA - 11/09/2024 5:57 PM EDT Associated Problem(s): Overweight (BMI 25.0-29.9) Could complicate hospitalization and mobility * Assessment & Plan Note - Arnoldo Savage PA - 11/09/2024 5:57 PM EDT Associated Problem(s): Fracture of right orbital floor 11/01: OR with ENT for right orbital floor fracture repair ENT following ; Augmentin x 10 days (11/11); Sinus precautions x 2 weeks Erythromycin ointment TID * Assessment & Plan Note - Arnoldo Savage PA - 11/09/2024 5:57 PM EDT Associated Problem(s): MRSA (methicillin resistant staph aureus) culture positive Oral doxycyline * Assessment & Plan Note - Arnoldo Savage PA - 11/09/2024 5:57 PM EDT Associated Problem(s): Urinary retention On Flomax * Progress Notes - Arnoldo Savage PA - 11/09/2024 5:55 PM EDT 11/09/24 [place] HINDS [place] Mata is a 64 y/o Female with a PMHx of CVA w/ R sided defecits on ASA/Plavix, HTN, HLP, CAD, and Hypothyroidism who presents on 10/30 s/p fall. Reversed with Anticoagulation was reversed withDDAVP. Injuries include: tSAH, IVH, R tripod fx with non-displaced ZMG, R globe hematoma s/p lateral canthotomy at OSH 11/01: s/p ORIF R zygomatic arch fx and R orbital wall fx repair Interval: Patient in bed, agitated, with nurse at bedside, VSS although intermittently hypertensive, no O2 requirement. Patient is eating breakfast with assistance of nursing however states she doesn't want to eat and becomes tearful when talking about eating. Discussion with patient's family (daughter, brother, and other family member) who notes that patient is a very peculiar eater. States she has had previous strokes and refusing to eat only certain foods is very common for her all the time,worsened after strokes. Patient's family also notes she is typically on prozac, seroquel, and mirtazapine. Patient has continued these medications here. Discussed with Pharmacy and will increase patient's seroquel dose d/t her agitation and difficulty with sleeping. Patient did pull DHT out overnight. Patient and patient's family not wanting to replace DHT at this time. Family to bring in some ofpatient's favorite foods from home to encourage PO intake with foods she likes. Patient A&O x 1, only to self. Mobilizing in bed as able. Patient denies any pain, CP, SOA, abd pain. Discussed plan of care with patient, patient's family, and nursing. No further complaints/concerns/questions at this time. Edited by: Arnoldo Savage PA at 11/09/2024 1756 Relevant review of systems was obtained as able and is negative unless stated above in HPI. Vital signs: Vitals: 11/09/24 1121 BP: (!) 145/72 Pulse: 81 Resp: Temp: 36.9 ??C (98.5 ??F) SpO2: 95% Physical Exam HENT: Mouth/Throat: Mouth: Mucous membranes are moist. Eyes: Comments: R eye closed at time of exam Cardiovascular: Rate and Rhythm: Normal rate. Pulmonary: Effort: Pulmonary effort is normal. No respiratory distress. Breath sounds: Normal breath sounds. No wheezing. Abdominal: General: Abdomen is flat. Bowel sounds are normal. There is no distension. Palpations: Abdomen is soft. Tenderness: There is no abdominal tenderness. Musculoskeletal: General: Signs of injury (swelling to L side of face) present. Skin: General: Skin is warm and dry. Neurological: Mental Status: She is alert. She is disoriented. Comments: Alert and oriented to person only Psychiatric: Mood and Affect: Affect is tearful. Behavior: Behavior is uncooperative. Cognition and Memory: Cognition is impaired. Intake/Output Summary (Last 24 hours) at 11/09/2024 1755 Last data filed at 11/09/2024 1300 Gross per 24 hour Intake 1032 ml Output -- Net 1032 ml Lines/Drains/Tubes: Patient Lines/Drains/Airways Status Active Airway None Output by Drain (mL) 11/07/24 0700 - 11/07/24 1859 11/07/24 1900 - 11/08/24 0659 11/08/24 0700 - 11/08/24 1859 11/08/24 1900 - 11/09/24 0659 11/09/24 0700 - 11/09/24 1755 Requested LDAs do not have output data documented. Labs in last 18 hours: CBC WBC ?? Hb ?? Plt ?? Hct ?? ANC ?? INR ??, PTT ??, Anti-Xa ?? MCV ?? BMP Na ?? Cl ?? BUN ?? Glu ?? K ?? Co2 ?? Cr ?? Ca ?? iCa ?? Mg ??, Phos ?? Lactate ?? LFT AST ?? AlkPhos ?? T Prot ?? ALK ?? Bili ?? Alb ?? D.Bili ?? Lab Trends: H/H Results from last 7 days Lab Units 11/04/24 0007 11/03/24 1513 11/03/24 0208 HEMOGLOBIN g/dL 7.9* 8.8* 7.6* HEMATOCRIT % 25.5* 28.3* 24.4* INR Cr Results from last 7 days Lab Units 11/04/24 0007 11/03/24 0208 CREATININE mg/dL 0.73 0.78 Medications reviewed. Vital signs reviewed. Labs reviewed. Radiography reviewed. Assessment and Plan: Assessment & Plan Zygomatic arch fracture (CMS/HCC) Present on Admission: Yes 11/01: OR with ENT for ORIF right Zygomatic arch fracture Recommend Ophtho reevaluation of vision loss/changes in addition to entrapment concern since postop Started on Augmentin for hardware in place after surgery Erythromycin optho ointment TID Sinus Precautions for 2 weeks total Injury of globe of eye, right, initial encounter Present on Admission: Yes S/p canthotomy at OSH Optho following- will reach out for recheck of vision when patient consistently able to participatein exam Sinus precautions x 2 weeks Erythromycin optho ointment TID Fall Present on Admission: Yes Admit SGT ICU [x] Tertiary 10/31 Transfer to [facility] 11/04 TBI (traumatic brain injury) (CMS/HCC) Present on Admission: Yes SAH, IVH NSGY consult DDAVP given at OSH PMR following Carotid stenosis Present on 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: 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 Resume home meds as appropriate in 2 weeks dt tSAH and IVH ABLA (acute blood loss anemia) Present on Admission: Yes H&H stable Hyperglycemia Present on Admission: Yes Likely reactive to trauma, recheck and treat as necessary Did not require insulin while in ICU Acute respiratory failure with hypoxia Present on Admission: Yes Extubated 10/31/24 Placed on HFNC on 11/01/24 2L NC Stable on RA Lactic acidosis Present on Admission: Yes IVF resuscitation and recheck as necessary Electrolyte abnormality Present on Admission: Yes Hypomagnesemia (POA) Hypocalcemia (POA) Replace/treat and recheck as necessary MELISSA (acute kidney injury) (CMS/HCC) Present on Admission: Yes Avoid nephrotoxic agents as able and renally dose medications IVF resuscitation as needed Hypothyroidism Present on Admission: Yes Home synthroid resumed Hypertension Present on Admission: Yes Home amlodipine resumed Hyperlipidemia Present on Admission: Yes Home Atorvastatin resumed CVA (cerebral vascular accident) (CMS/HCC) Present on Admission: Yes PMH CVA and R sided deficits Resume home meds as appropriate in 2 weeks due to tSAH and IVH Overweight (BMI 25.0-29.9) Present on Admission: Yes Could complicate hospitalization and mobility Debility Present on Admission: Yes PT/OT following Recommend ERIKA Possible PM&R consult for 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: recommend [id number] BID Improved spasticity, however meds causing nausea; discontinue 11/07 PMR recs to trial baclofen Fracture of right orbital floor (CMS/HCC) Present on Admission: Yes 11/01: OR with ENT for right orbital floor fracture repair ENT following ; Augmentin x 10 days (11/11); Sinus precautions x 2 weeks Erythromycin ointment TID Malnutrition (CMS/HCC) Present on Admission: No DHT w/TF 11/07: Discontinue TF and encourage oral intake 11/08: Poor appetite, started Megace and resumed cyclic tube feedings Oral supplementation Hold off replacing DHT per family request, re-eval tomorrow MRSA (methicillin resistant staph aureus) culture positive Present on Admission: Not Applicable Oral doxycyline Urinary retention Present on Admission: No On Flomax Plan: - DHT removed overnight. Hold replacing for now to see if family can encourage PO intake with home foods -MMPC -Augmentin through 11/11 and Doxycycline for MRSA coverage on wound cx -Cont megace - Increase seroquel dose -Pulm Hygiene, IS -Ophtho following -ENT: sinus precautions for 2 weeks, Erthromycin Ophtho ointment TID, follow up in 2 weeks after discharge; sign off -PM&R following; recs to add baclofen 5mg BID -Bowel regimen -Delirium precautions -PT/OT Discharge Dispo: Subacute Rehab Barrier: DHT and TF Edited by: Arnoldo Savage PA at 11/09/20241754 ANDREI Khan * Care Plan - Junior Naila Raines - 11/09/2024 5:00 PM EDT Problem: Adult Inpatient Plan of Care Goal: Plan of Care Review 11/09/20241657 by Junior Naila Raines Outcome: Ongoing, Progressing Flowsheets Taken 11/09/2024 1650 by Junior Naila Raines Progress: improving Taken 11/07/2024 2302 by Sindi Porter RN Plan of Care Reviewed With: patient 11/09/2024 1650 by Junior Naila Raines Outcome: Ongoing, Progressing Flowsheets Taken 11/09/2024 1650 by Junior Naila Raines Progress: improving Taken 11/07/2024 2302 by Sindi Porter RN Plan of Care Reviewed With: patient 11/09/2024 1639 by Junior Naila Raines Outcome: Ongoing, Progressing Flowsheets (Taken 11/07/2024 2302 by Sindi Porter RN) Progress: no change Plan of Care Reviewed With: patient Goal: Patient-Specific Goal (Individualized) 11/09/2024 1658 by Junior Naila Raines Outcome: Ongoing, Progressing Flowsheets (Taken 11/09/2024 0800) Patient/Family-Specific Goals (Include Timeframe): pt will remain free from falls or injury throughout shift Individualized Care Needs: safety Anxieties, Fears or Concerns: none 11/09/2024 1650 by Junior Naila Raines Outcome: Ongoing, Progressing Flowsheets (Taken 11/09/2024 0800) Patient/Family-Specific Goals (Include Timeframe): pt will remain free from falls or injury throughout shift Individualized Care Needs: safety Anxieties, Fears or Concerns: none 11/09/2024 1639 by Junior Naila Raines Outcome: Ongoing, Progressing Flowsheets (Taken 11/09/2024 0800) Patient/Family-Specific Goals (Include Timeframe): pt will remain free from falls or injury throughout shift Individualized Care Needs: safety Anxieties, Fears or Concerns: none Goal: Absence of Hospital-Acquired Illness or Injury 11/09/2024 1658 by Junior Naila Raines Outcome: Ongoing, Progressing 11/09/2024 1650 by Junior Naila Raines Outcome: Ongoing, Progressing 11/09/2024 1639 by Junior Naila Raines Outcome: Ongoing, Progressing Intervention: Identify and Manage Fall Risk 11/09/20241657 by Junior Naila Raines Flowsheets (Taken 11/09/2024 0800) Safety Promotion/Fall Prevention: activity supervised assistive device/personal items within reach clutter-free environment maintained fall prevention program maintained lighting adjusted nonskid shoes/slippers when out of bed room organization consistent safety round/check completed toileting scheduled 11/09/2024 1650 by Junior Naila Raines Flowsheets (Taken 11/09/2024 0800) Safety Promotion/Fall Prevention: activity supervised assistive device/personal items within reach clutter-free environment maintained fall prevention program maintained lighting adjusted nonskid shoes/slippers when out of bed room organization consistent safety round/check completed toileting scheduled Intervention: Prevent Skin Injury 11/09/2024 1658 by Junior Naila Raines Flowsheets Taken 11/09/2024 1600 by Katie Childers Body Position: [place] chair Taken 11/09/2024 0426 by Jennifer Ayala Skin Protection: incontinence pads utilized 11/09/2024 1650 by Junior Naila Raines Flowsheets Taken 11/09/2024 1600 by Katie Childers Body Position: [place] chair Taken 11/09/2024 0426 by Jennifer Ayala Skin Protection: incontinence pads utilized Intervention: Prevent and Manage VTE (Venous Thromboembolism) Risk 11/09/2024 1658 by Junior Naila Raines Flowsheets (Taken 11/09/2024 0000 by Sindi Porter RN) VTE Prevention/Management: bilateral SCDs (sequential compression devices) off 11/09/20241649 by Junior Naila Raines Flowsheets (Taken 11/09/2024 by Sindi Porter, RN) VTE Prevention/Management: bilateral SCDs (sequential compression devices) off Intervention: Prevent Infection 11/09/20241657 by Junior Naila Raines Flowsheets (Taken 11/08/20241999 by Sindi Porter, RN) Infection Prevention: environmental surveillance performed rest/sleep promoted 11/09/20241649 by Junior Naila Raines Flowsheets (Taken 11/08/20241999 by Sindi Porter, RN) Infection Prevention: environmental surveillance performed rest/sleep promoted Goal: Optimal Comfort and Wellbeing 11/09/20241657 by Junior Naila Raines Outcome: Ongoing, Progressing 11/09/20241649 by Junior Naila Raines Outcome: Ongoing, Progressing 11/09/20241638 by Junior Naila Raines Outcome: Ongoing, Progressing Intervention: Monitor Pain and Promote Comfort 11/09/20241657 by Junior Naila Raines Flowsheets (Taken 11/08/20241999 by Sindi Porter, RN) Pain Management Interventions: medication (see MAR) pillow support provided position adjusted 11/09/20241649 by Junior Naila Raines (Taken 11/08/20241999 by Sindi Porter, RN) Pain Management Interventions: medication (see MAR) pillow support provided position adjusted Intervention: Provide Person-Centered Care 11/09/20241657 by Junior Naila Raines Flowsheets (Taken 11/08/20241999 by Sindi Porter, RN) Trust Relationship/Rapport: care explained choices provided thoughts/feelings acknowledged 11/09/20241649 by Junior Naila Raines Flowsheets (Taken 11/08/20241999 by Sindi Porter, RN) Trust Relationship/Rapport: care explained choices provided thoughts/feelings acknowledged Problem: Skin Injury Risk Increased Goal: Skin Health and Integrity 11/09/20241657 by Junior Naila Raines Outcome: Ongoing, Progressing 11/09/20241649 by Junior Naila Raines Outcome: Ongoing, Progressing 11/09/2024 163 by Junior Naila Raines Outcome: Ongoing, Progressing Intervention: Optimize Skin Protection 11/09/2024 1658 by Junior Naila Raines Flowsheets Taken 11/09/2024 1600 by Katie Childers Activity Management: up in chair Taken 11/09/2024 1200 by Katie Childers Head of Bed (HOB) Positioning: HOB at 20-30 degrees Taken 11/09/2024 0426 by Jennifer Ayala Skin Protection: incontinence pads utilized Taken 11/08/20241999 by Sindi Porter RN Pressure Reduction Techniques: positioned off wounds pressure points protected weight shift assistance provided Pressure Reduction Devices: positioning supports utilized 11/09/2024 1650 by Junior Naila Raines Flowsheets Taken 11/09/2024 1600 by Katie Childers Activity Management: up in chair Taken 11/09/2024 1200 by Katie Childers Head of Bed (HOB) Positioning: HOB at 20-30 degrees Taken 11/09/2024 0426 by Jennifer Ayala Skin Protection: incontinence pads utilized Taken 11/08/20241999 by Sindi Porter RN Pressure Reduction Techniques: positioned off wounds pressure points protected weight shift assistance provided Pressure Reduction Devices: positioning supports utilized Intervention: Promote and Optimize Oral Intake 11/09/2024 165 by Junior Naila Raines Flowsheets (Taken 11/08/20241999 by Sindi Porter, LUANNE) Oral Nutrition Promotion: rest periods promoted Nutrition Interventions: food preferences provided frequent small meals provided 11/09/2024 1650 by Junior Naila Raines Flowsheets (Taken 11/08/20241999 by Sindi Porter, RN) Oral Nutrition Promotion: rest periods promoted Nutrition Interventions: food preferences provided frequent small meals provided Problem: Fall Injury Risk Goal: Absence of Fall and Fall-Related Injury 11/09/2024 1658 by Junior Naila Raines Outcome: Ongoing, Progressing 11/09/2024 1650 by Junior Naila Raines Outcome: Ongoing, Progressing 11/09/2024 1639 by Junior Naila Raines Outcome: Ongoing, Progressing Intervention: Identify and Manage Contributors 11/09/20241657 by Junior Naila Raines Flowsheets Taken 11/08/20241999 by Sindi Porter camp boss Review/Management: medications reviewed Taken 11/01/20241999 by Frank, Karys L, RN Self-Care Promotion: independence encouraged 11/09/20240 by Junior Naila Raines Flowsheets Taken 11/08/20241999 by Sindi Porter RN Medication Review/Management: medications reviewed Taken 11/01/20241999 by Javi Frank RN Self-Care Promotion: independence encouraged Intervention: Promote Injury-Free Environment 11/09/2024 165 by Junior Naila Raines Flowsheets (Taken 11/09/2024 0800) Safety Promotion/Fall Prevention: activity supervised assistive device/personal items within reach clutter-free environment maintained fall prevention program maintained lighting adjusted nonskid shoes/slippers when out of bed room organization consistent safety round/check completed toileting scheduled 11/09/2024 165 by Junior Naila Raines Flowsheets (Taken 11/09/2024 0800) Safety Promotion/Fall Prevention: activity supervised assistive device/personal items within reach clutter-free environment maintained fall prevention program maintained lighting adjusted nonskid shoes/slippers when out of bed room organization consistent safety round/check completed toileting scheduled Problem: Functional Deficit Goal: Improved Balance and Postural Control 11/09/2024 1658 by Junior Naila Raines Outcome: Ongoing, Progressing 11/09/2024 1650 by Junior Naila Raines Outcome: Ongoing, Progressing 11/09/2024 1639 by Junior Naila Raines Outcome: Ongoing, Progressing Intervention: Optimize Balance and Safe Activity 11/09/20241657 by Junior Naila Raines Flowsheets Taken 11/09/2024 1600 by Katie Childers Activity Management: up in chair Taken 11/09/2024 0800 by Junior Naila Raines Safety Promotion/Fall Prevention: activity supervised assistive device/personal items within reach clutter-free environment maintained fall prevention program maintained lighting adjusted nonskid shoes/slippers when out of bed room organization consistent safety round/check completed toileting scheduled Taken 11/01/20241999 by Javi Frank RN Self-Care Promotion: independence encouraged 11/09/20240 by Junior Naila Raines Flowsheets Taken 11/09/2024 1600 by Katie Childers Activity Management: up in chair Taken 11/09/2024 0800 by Junior Naila Raines Safety Promotion/Fall Prevention: activity supervised assistive device/personal items within reach clutter-free environment maintained fall prevention program maintained lighting adjusted nonskid shoes/slippers when out of bed room organization consistent safety round/check completed toileting scheduled Taken 11/01/20241999 by Javi Frank, LUANNE Self-Care Promotion: independence encouraged Goal: Optimal Cognitive Function 11/09/2024 1658 by Junior Naila Raines Outcome: Ongoing, Progressing 11/09/2024 1650 by Junior Naila Raines Outcome: Ongoing, Progressing 11/09/2024 1639 by Junior Naila Raines Outcome: Ongoing, Progressing Intervention: Optimize Cognitive Function 11/09/2024 1658 by Junior Naila Raines Flowsheets Taken 11/08/20241999 by Sindi Porter RN Sensory Stimulation Regulation: auditory stimulation minimized care clustered lighting decreased Environment Familiarity/Consistency: daily routine followed Taken 11/01/20241999 by Javi Frank RN Self-Care Promotion: independence encouraged 11/09/2024 1650 by Junior Naila Raines Flowsheets Taken 11/08/20241999 by Sindi Porter RN Sensory Stimulation Regulation: auditory stimulation minimized care clustered lighting decreased Environment Familiarity/Consistency: daily routine followed Taken 11/01/20241999 by Javi Frank, LUANNE Self-Care Promotion: independence encouraged Goal: Optimal Coordination 11/09/2024 1658 by Junior Naila Raines Outcome: Ongoing, Progressing 11/09/2024 1650 by Junior Naila Raines Outcome: Ongoing, Progressing 11/09/2024 1639 by Junior Naila Raines Outcome: Ongoing, Progressing Intervention: Optimize Motor Coordination and Function 11/09/2024 1658 by Junior Naila Raines Flowsheets (Taken 11/01/20241999 by Javi Frank, RN) Self-Care Promotion: independence encouraged 11/09/2024 1650 by Junior Naila Raines Flowsheets (Taken 11/01/20241999 by Javi Frank, RN) Self-Care Promotion: independence encouraged Goal: Improved Muscle Strength 11/09/2024 1658 by Junior Naila Raines Outcome: Ongoing, Progressing 11/09/2024 1650 by Junior Naila Raines Outcome: Ongoing, Progressing 11/09/2024 1639 by Junior Naila Raines Outcome: Ongoing, Progressing Intervention: Optimize Muscle Strength Flowsheets Taken 11/09/2024 1600 by Katie Childers Activity Management: up in chair Taken 11/09/2024 1430 by Katie Childers Activity Assistance Provided: assistance, 2 people Taken 11/01/20241999 by Javi Frank RN Self-Care Promotion: independence encouraged Goal: Improved Muscle Tone 11/09/2024 1658 by Junior Naila Raines Outcome: Ongoing, Progressing 11/09/2024 1650 by Junior Naila Raines Outcome: Ongoing, Progressing 11/09/2024 1639 by Junior Naila Raines Outcome: Ongoing, Progressing Goal: Optimal Range of Motion 11/09/2024 1658 by Junior Naila Raines Outcome: Ongoing, Progressing 11/09/2024 1650 by Junior Naila Raines Outcome: Ongoing, Progressing 11/09/2024 1639 by Junior Naila Raines Outcome: Ongoing, Progressing Intervention: Maintain Functional Joint Range Position Flowsheets Taken 11/09/2024 1200 by Katie Childers Range of Motion: active ROM (range of motion) encouraged Taken 11/08/20241999 by Sindi Porter RN Positioning/Transfer Devices: pillows applied Goal: Compensation for Sensory Deficit 11/09/2024 1658 by Junior Naila Raines Outcome: Ongoing, Progressing 11/09/2024 1650 by Junior Naila Raines Outcome: Ongoing, Progressing 11/09/2024 1639 by Junior Naila Raines Outcome: Ongoing, Progressing Intervention: Optimize Sensory Function Flowsheets Taken 11/09/2024 0426 by Jennifer Ayala Skin Protection: incontinence pads utilized Taken 11/08/20241999 by Sindi Porter RN Pressure Reduction Techniques: positioned off wounds pressure points protected weight shift assistance provided Sensation Impairment Protection: cues provided for safety Problem: Infection Goal: Absence of Infection Signs and Symptoms 11/09/2024 1658 by Junior Naila Raines Outcome: Ongoing, Progressing 11/09/2024 1650 by Junior Naila Raines Outcome: Ongoing, Progressing 11/09/2024 1639 by Junior Naila Raines Outcome: Ongoing, Progressing Intervention: Prevent or Manage Infection Flowsheets Taken 11/09/2024 0800 by Junior Naila Raines Isolation Precautions: precautions maintained Taken 11/08/20241999 by Sindi Porter RN Infection Management: aseptic technique maintained Taken 11/06/2024 0234 by Pietro Valdovinos, RN Fever Reduction/Comfort Measures: lightweight clothing lightweight bedding fluid intake increased Problem: Pain Acute Goal: Optimal Pain Control and Function 11/09/2024 1658 by Junior Naila Raines Outcome: Ongoing, Progressing 11/09/2024 1650 by Junior Naila Raines Outcome: Ongoing, Progressing 11/09/2024 1639 by Junior Naila Raines Outcome: Ongoing, Progressing Intervention: Optimize Psychosocial Wellbeing Flowsheets Taken 11/08/20241999 by Sindi Porter RN Supportive Measures: active listening utilized positive reinforcement provided Taken 11/07/20241999 by Sindi Porter RN Diversional Activities: television Taken 11/05/2024 1019 by Jelly Clay RN Spiritual Activities Assistance: hope instilled Intervention: Develop Pain Management Plan Flowsheets (Taken 11/08/20241999 by Sindi Porter, RN) Pain Management Interventions: medication (see MAR) pillow support provided position adjusted Intervention: Prevent or Manage Pain Flowsheets (Taken 11/08/20241999 by Sindi Porter, RN) Sensory Stimulation Regulation: auditory stimulation minimized care clustered lighting decreased Bowel Elimination Promotion: privacy promoted Sleep/Rest Enhancement: awakenings minimized noise level reduced regular sleep/rest pattern promoted Medication Review/Management: medications reviewed Problem: Enteral Nutrition Goal: Absence of Aspiration Signs and Symptoms 11/09/2024 1658 by Junior Naila Raines Outcome: Ongoing, Progressing 11/09/2024 1650 by Junior Naila Raines Outcome: Ongoing, Progressing 11/09/2024 1639 by Junior Naila Raines Outcome: Ongoing, Progressing Intervention: Minimize Aspiration Risk Flowsheets Taken 11/09/2024 1200 by Katie Childers Head of Bed (HOB) Positioning: HOB at 20-30 degrees Taken 11/06/2024 0234 by Pietro Valdovinos, RN Oral Care: lip lubricant applied mouth swabbed mouth suctioned Goal: Feeding Tolerance 11/09/2024 1658 by Junior Naila Raines Outcome: Ongoing, Progressing 11/09/2024 1650 by Junior Naila Raines Outcome: Ongoing, Progressing 11/09/2024 1639 by Junior Naila Raines Outcome: Ongoing, Progressing * Progress Notes - Monae Sommers - 11/09/2024 3:45 PM EDT Images from the original note were not included. Physical Therapy Treatment Patient Name: [place] Mata Today's Date: 11/09/2024 PT Discharge Recommendations: Subacute rehab Equipment Recommended: Defer to facility Subjective Pt agreeable to PT. States don't ask me why I'm in here, I don't want to talk about it . PM&R student reports that they are recommending Pt starting Baclofen. Participants in Care Family/Caregiver Present: Yes Family/Caregiver: Other (Specify) (sister, niece) Presentation Oxygen Therapy: None (Room air) Lines and Tubes: Intravenous access Pre-Session: Sitting in chair, Lines intact, Chair alarm Pre-Session Comments: RN agreeable to therapy session. Post-Session: Sitting in chair, Call light in reach, RN notified, Lines intact, Chair alarm Post-Session Comments: Positioned Pt for comfort. Family present at bedside. Precautions Medical Precautions: Fall precautions, Sinus Objective Pain Pt with no complaints of pain. Delirium Screening RASS: Alert and calm Confusion Assessment Method-ICU (CAM-ICU/PCAM-ICU) Feature 3: Altered Level of Consciousness: Negative Therapeutic Exercise (15 minutes) PM&R reached out to inquire about splinting needs for right LE. PT provided verbal + tactile cues to encourage Pt in performing ankle pumps bilateral LE's and Pt performed x10 reps each. PT then performed PROM stretching to right ankle into dorsiflexion x10 reps with 10-15 hold each in order to improve ROM and assess for increased tone and splinting needs. Pt required verbal cues to attempt to relax right LE, and proprioceptive input provided to achilles tendon to promote relaxation of muscle. Due to decreased passive and active ROM right ankle, Pt was fitted with adjustable anti-contracture boot right LE for contracture prevention and improvement of ROM. See Splinting for details below. PT also briefly placed Pt's LE's in dependent position in recliner and Pt given verbal + tactile cues to perform right knee flexion and extension, with tactile cues to assist with gentle stretchinginto flexion x5 reps. Pt placed back into reclined position in chair at end of session. Family and RN educated on purpose of splint and splint schedule. Splinting Pre-Fabricated Splint: Adjustable anti-contracture boot, Right LE Skin Assessment Skin Assessment: Intact (bruising noted distal to lateral malleolus but otherwise skin intact) Splinting Application and Wearing Schedule: Contact PT for questions/concerns, Assess skin every shift (on/off right LE only every two hours) Splint placed on right LE with straps adjusted to provide gentle stretch to Pt's tolerance. Assessment Due to continued increased tightness in right ankle heel cord with decreased ankle dorsiflexion ROM, Pt fitted with adjustable anti-contracture boot for contracture prevention and improvement of ROM.Tone in right ankle appears somewhat improved compared to initial evaluation but questionable mild extensor tone still present, relaxes with stretching. Pt demonstrates confusion during conversation and is initially not oriented to date of , required cueing to correctly state. Family educated on splint. Pt would benefit from continued skilled therapy during this admission to address remaining balance, strength, endurance, coordination, and cognitive deficits and improve functional mobility. PT Recommendations Discharge Destination: Subacute rehab Discharge Equipment: Defer to facility Plan Continue to progress functional mobility as tolerated. PT Goals PT GOAL DETAILS Goal Established Date Time Frame Goal Status PT Goal 1: Pt will transfer supine<>sit MIN A 10/31/24 2 weeks PT Goal 2: Pt will transfer sit<>stand and bed<>chair MIN A with LRAD as appropriate 10/31/24 2 weeks PT Goal 3: Pt will ambulate x25ft MIN A with LRAD as appropriate 10/31/24 2 weeks PT Goal 4: Pt/Pt's family will be IND with HEP, safety recommendations, and discharge recommendations. 10/31/24 2 weeks PT Goal 5: Pt will tolerate adjustable anti-contracture boot right LE for improved positioning of ankle per schedule without adverse reactions 11/09/24 1 week Written by Monae Sommers on 11/09/24 at 4:28 PM. * Progress Notes - MalaikaCarol Ann - 11/09/2024 10:01 AM EDT Physical Medicine & Rehabilitation Inpatient Consult Followup cc: Fall Subjective: Patient seen and examined at bedside, friend present. Reports she didn't sleep well. Current Medications: Continuous: Current Continuous Medications[1] Scheduled: Current Scheduled Medications[2] PRN: Current PRN Medications[3] Review of Information: Labs: Lab Results Component Value Date WBC 7.42 11/04/2024 WBC 9.52 11/03/2024 WBC 7.77 11/03/2024 HGB 7.9 (L) 11/04/2024 HGB 8.8 (L) 11/03/2024 HGB 7.6 (L) 11/03/2024 HCT 25.5 (L) 11/04/2024 MCV 88 11/04/2024 PLT 229 11/04/2024 PLT 255 11/03/2024 PLT 193 11/03/2024 Lab Results Component Value Date NA 143 11/04/2024 NA 142 11/03/2024 NA 142 11/01/2024 K 3.9 11/04/2024 K 4.1 11/03/2024 K 4.4 11/01/2024 CL 108 (H) 11/04/2024 CL 109 (H) 11/03/2024 CL 109 (H) 11/01/2024 BUN 21 11/04/2024 BUN 22 11/03/2024 BUN 14 11/01/2024 CREATININE 0.73 11/04/2024 CREATININE 0.78 11/03/2024 CREATININE 0.78 11/01/2024 CALCIUM 7.9 (L) 11/04/2024 CALCIUM 7.9 (L) 11/03/2024 CALCIUM 8.7 (L) 11/01/2024 GLUCOSE 114 (H) 11/04/2024 GLUCOSE 163 (H) 11/03/2024 GLUCOSE 113 (H) 11/01/2024 GLUCOSE 133 (H) 10/31/2024 GLUCOSE 145 (H) 10/30/2024 Lab Results Component Value Date ALT 46 (H) 11/03/2024 ALT 84 (H) 11/01/2024 ALT 24 07/19/2024 AST 32 11/03/2024 AST 72 (H) 11/01/2024 AST 27 07/19/2024 ALKPHOS 154 (H) 11/03/2024 ALKPHOS 194 (H) 11/01/2024 ALKPHOS 105 05/22/2023 BILITOT 0.3 11/03/2024 BILITOT 0.7 11/01/2024 BILITOT 0.3 07/19/2024 Lab Results Component Value Date HGBA1C 5.7 (H) 07/20/2024 Physical Examination: Visit Vitals BP (!) 145/72 Pulse 81 Temp 36.9 ??C (98.5 ??F) Ht 1.6 m (5' 2.99 ) Wt 62.1 kg (136 lb 14.5 oz) SpO2 95% BMI 24.26 kg/m?? Gen: NAD, reclining in bed Eyes: no scleral icterus in L eye, R eye shut with edema Neck: supple, no tracheostomy ENT: nares patent, mucous membranes moist CV: regular rate, no BLE edema Resp: nonlabored breathing, no wheezing GI: abd soft, NTTP : che present Skin: warm, dry Heme/lymph/immune: no bruising, no lymphadenopathy Psychiatric: good judgement, good insight MSK: -RUE 3/5 - LUE 5/5 - RLE 2/5, tone present - MAS right ankle 3/4, right knee 1/4 - LLE 5/5 Neurological: awake and alert, participating in conversation, speech fluent CN II-XII intact Follow up appointments: Future Appointments Date Time Provider Department Center 11/21/2024 12:45 PM Navya Woody MD [facility] Mobility Orders Mobility Protocol: Ortho/Trauma/Spine Mobility Guidelines Spinal Precautions: No cranial, cervical or thoracolumbar spinal precautions necessary Extremity Precautions: No Extremity Precautions Other mobility precautions: Other precautions Other mobility precautions: Other Other: Keep HOB 30 Degrees, OK to Reverse Trendelenburg. ASSESSMENT/PLAN: [place] Mata is a 64 y.o. female w/PMH of CVA (R sided deficits), HTN, HLP, CAD, and hypothyroidism who presented to on 10/30/2024 (LOS: 10d) from OSH after a fall. Injuries after the fall includeIVH, SAH, R tripod fx with non- displaced ZMG, R globe hematoma s/p lateral canthotomy at OSH. Fall, unknown mechanism (sister found her immediately after face down) - IVH (Plavix was reversed with DDAVP) repeat CTH showed enlarged IVH, 1 unit of PLT administered - Spasticity -- increased tone in RLE. Dantrolene d/c 2/2 nausea, recommend Baclofen - Neurogenic bladder, che placed - R tripod with non-displaced zygomatic arch and comminuted R orbital fx S/p R zygomatic arch and orbital floor repair (11/01) - Dysphagia - MBS performed, recommended easy to chew foods - functional decline - gait impairment - ADL impairment - cognitive impairment - HTN, History of CVA with R sided hemiparesis with acute onset spasticity - Hypothyroidism Recommendations: Will discuss with PT regarding need for multi podus boot vs bunny boot. Baclofen 5mg PO BID Thank you for allowing us to participate in the care of your patient. PM&R will continue to follow. Please page [phone] with any questions, or resident on-call if after hours or on weekends. Carol Ann Dai Physical Medicine & Rehabilitation [1] [2] acetaminophen, 500 mg, Oral, 4x daily amLODIPine, 5 mg, Oral, Daily amoxicillin-clavulanate, 875 mg, Oral, q12h atorvastatin, 40 mg, Oral, Nightly bacitracin, 1 Jar, Topical, BID doxycycline, 100 mg, Oral, BID enoxaparin, 30 mg, Subcutaneous, BID erythromycin, 1 Application, Both Eyes, q8h BACILIO FLUoxetine, 20 mg, Oral, Daily levothyroxine, 75 mcg, Oral, q AM megestrol, 400 mg, Oral, Daily mirtazapine, 15 mg, Oral, Nightly mupirocin, 1 Application, Each Nostril, BID polyethylene glycol, 17 g, Oral, BID QUEtiapine, 50 mg, Oral, Nightly senna-docusate, 2 tablet, Oral, BID tamsulosin, 0.4 mg, Oral, Daily with dinner [3] kinzsggdaz-mhhvrtbbzwdjw-mghffhec, 1 tablet, Oral, q6h PRN hydrOXYzine pamoate, 25 mg, Oral, q8h PRN ipratropium-albuterol, 3 mL, Nebulization, q6h PRN ondansetron ODT, 4 mg, Oral, q6h PRN OR ondansetron, 4 mg, Intravenous, q6h PRN oxyCODONE, 5 mg, Oral, q8h PRN Cosigned by Benito Stiles DO at 11/09/2024 4:58 PM EDT Associated attestation - Benito Stiles DO - 11/09/2024 4:58 PM EDT I saw and evaluated the patient with the medical/DIGITAL CONTROLS TECHNICAL OFFICER/PA student. I discussed the case with the medical/DIGITAL CONTROLS TECHNICAL OFFICER/PA student and agree with the findings and plan as documented. I personally performed the Examand Medical Decision Making. Physical exam: MAS 2/4 RLE, right hemiparesis Assessment/Plan: - recommend baclofen 5mg po bid - discussed with PT regarding boot for right ankle * Care Plan - Junior Naila Raines - 11/08/2024 3:47 PM EDT Problem: Adult Inpatient Plan of Care Goal: Plan of Care Review Outcome: Ongoing, Progressing Flowsheets (Taken 11/07/2024 2302 by Sindi Porter, RN) Progress: no change Plan of Care Reviewed With: patient Goal: Patient-Specific Goal (Individualized) Outcome: Ongoing, Progressing Flowsheets (Taken 11/08/2024 0800) Patient/Family-Specific Goals (Include Timeframe): pt will remain free from falls or injury throughout shift Individualized Care Needs: safety Anxieties, Fears or Concerns: none stated Goal: Absence of Hospital-Acquired Illness or Injury Outcome: Ongoing, Progressing Intervention: Identify and Manage Fall Risk Flowsheets (Taken 11/08/2024 0800) Safety Promotion/Fall Prevention: activity supervised assistive device/personal items within reach clutter-free environment maintained fall prevention program maintained lighting adjusted nonskid shoes/slippers when out of bed room organization consistent safety round/check completed toileting scheduled Intervention: Prevent Skin Injury Flowsheets Taken 11/08/2024 1330 by Katie Childers Body Position: turned right Taken 11/07/20241999 by Sindi Porter, RN Skin Protection: incontinence pads utilized transparent dressing maintained Intervention: Prevent and Manage VTE (Venous Thromboembolism) Risk Flowsheets (Taken 11/08/2024 0800) VTE Prevention/Management: medication Intervention: Prevent Infection Flowsheets (Taken 11/07/20241999 by Sindi Porter RN) Infection Prevention: environmental surveillance performed rest/sleep promoted Goal: Optimal Comfort and Wellbeing Outcome: Ongoing, Progressing Intervention: Monitor Pain and Promote Comfort Flowsheets (Taken 11/07/2024 2244 by Sindi Porter, RN) Pain Management Interventions: medication (see MAR) Intervention: Provide Person-Centered Care Flowsheets (Taken 11/07/20241999 by Sindi Porter, RN) Trust Relationship/Rapport: care explained choices provided thoughts/feelings acknowledged Problem: Skin Injury Risk Increased Goal: Skin Health and Integrity Outcome: Ongoing, Progressing Intervention: Optimize Skin Protection Flowsheets Taken 11/08/2024 1330 by Katie Childers Activity Management: activity adjusted per tolerance Head of Bed (HOB) Positioning: HOB at 30 degrees Taken 11/07/20241999 by Sindi Porter RN Pressure Reduction Techniques: heels elevated off bed pressure points protected weight shift assistance provided Pressure Reduction Devices: positioning supports utilized Skin Protection: incontinence pads utilized transparent dressing maintained Intervention: Promote and Optimize Oral Intake Flowsheets Taken 11/07/20241999 by Sindi Porter RN Nutrition Interventions: food preferences provided frequent small meals provided Taken 11/06/20241999 by Sindi Porter RN Oral Nutrition Promotion: physical activity promoted rest periods promoted Problem: Fall Injury Risk Goal: Absence of Fall and Fall-Related Injury Outcome: Ongoing, Progressing Intervention: Identify and Manage Contributors Flowsheets Taken 11/07/20241999 by Sindi Porter RN Medication Review/Management: medications reviewed Taken 11/01/20241999 by Javi Frank RN Self-Care Promotion: independence encouraged Intervention: Promote Injury-Free Environment Flowsheets (Taken 11/08/2024 0800) Safety Promotion/Fall Prevention: activity supervised assistive device/personal items within reach clutter-free environment maintained fall prevention program maintained lighting adjusted nonskid shoes/slippers when out of bed room organization consistent safety round/check completed toileting scheduled Problem: Functional Deficit Goal: Improved Balance and Postural Control Outcome: Ongoing, Progressing Intervention: Optimize Balance and Safe Activity Flowsheets Taken 11/08/2024 1330 by Katie Childers Activity Management: activity adjusted per tolerance Taken 11/08/2024 0800 by Junior Naila Raines Safety Promotion/Fall Prevention: activity supervised assistive device/personal items within reach clutter-free environment maintained fall prevention program maintained lighting adjusted nonskid shoes/slippers when out of bed room organization consistent safety round/check completed toileting scheduled Taken 11/01/20241999 by Javi Frank RN Self-Care Promotion: independence encouraged Goal: Optimal Cognitive Function Outcome: Ongoing, Progressing Intervention: Optimize Cognitive Function Flowsheets Taken 11/07/20241999 by Sindi Porter RN Sensory Stimulation Regulation: care clustered lighting decreased quiet environment promoted Taken 11/01/20241999 by Javi Frank RN Environment Familiarity/Consistency: daily routine followed Self-Care Promotion: independence encouraged Goal: Optimal Coordination Outcome: Ongoing, Progressing Intervention: Optimize Motor Coordination and Function Flowsheets (Taken 11/01/20241999 by Javi Frank, LUANNE) Self-Care Promotion: independence encouraged Goal: Improved Muscle Strength Outcome: Ongoing, Progressing Intervention: Optimize Muscle Strength Flowsheets Taken 11/08/2024 1330 by Katie Childers Activity Management: activity adjusted per tolerance Taken 11/07/20241999 by Sindi Porter RN Activity Assistance Provided: assistance, 2 people Taken 11/01/20241999 by Javi Frank RN Self-Care Promotion: independence encouraged Goal: Improved Muscle Tone Outcome: Ongoing, Progressing Goal: Optimal Range of Motion Outcome: Ongoing, Progressing Intervention: Maintain Functional Joint Range Position Flowsheets Taken 11/08/2024 1330 by Katie Childers Range of Motion: active ROM (range of motion) encouraged Taken 11/07/2024 2200 by Sindi Porter RN Positioning/Transfer Devices: pillows in use Goal: Compensation for Sensory Deficit Outcome: Ongoing, Progressing Intervention: Optimize Sensory Function Flowsheets Taken 11/07/20241999 by Sindi Porter RN Pressure Reduction Techniques: heels elevated off bed pressure points protected weight shift assistance provided Skin Protection: incontinence pads utilized transparent dressing maintained Taken 11/06/20241999 by Sindi Porter RN Sensation Impairment Protection: cues provided for safety Problem: Infection Goal: Absence of Infection Signs and Symptoms Outcome: Ongoing, Progressing Intervention: Prevent or Manage Infection Flowsheets Taken 11/08/2024 0800 by Junior Naila Raines Isolation Precautions: precautions maintained Taken 11/07/20241999 by Sindi Porter RN Infection Management: aseptic technique maintained Taken 11/06/2024 0234 by Pietro Valdovinos, RN Fever Reduction/Comfort Measures: lightweight clothing lightweight bedding fluid intake increased Problem: Pain Acute Goal: Optimal Pain Control and Function Outcome: Ongoing, Progressing Intervention: Optimize Psychosocial Wellbeing Flowsheets Taken 11/07/20241999 by Sindi Porter RN Supportive Measures: active listening utilized positive reinforcement provided Diversional Activities: television Taken 11/05/2024 1019 by Jelly Clay RN Spiritual Activities Assistance: hope instilled Intervention: Develop Pain Management Plan Flowsheets (Taken 11/07/2024 2244 by Sindi Porter, LUANNE) Pain Management Interventions: medication (see MAR) Intervention: Prevent or Manage Pain Flowsheets (Taken 11/07/20241999 by Sidni Porter, RN) Sensory Stimulation Regulation: care clustered lighting decreased quiet environment promoted Bowel Elimination Promotion: adequate fluid intake promoted Sleep/Rest Enhancement: awakenings minimized noise level reduced regular sleep/rest pattern promoted Medication Review/Management: medications reviewed Problem: Enteral Nutrition Goal: Absence of Aspiration Signs and Symptoms Outcome: Ongoing, Progressing Intervention: Minimize Aspiration Risk Flowsheets Taken 11/08/2024 1330 by Katie Childers Head of Bed (HOB) Positioning: HOB at 30 degrees Taken 11/06/2024 0234 by Pietro Valdovinos, RN Enteral Feeding Safety: placement checked Oral Care: lip lubricant applied mouth swabbed mouth suctioned Goal: Feeding Tolerance Outcome: Ongoing, Progressing Intervention: Prevent and Manage Feeding Intolerance Flowsheets (Taken 11/07/20241999 by Sindi Porter RN) Nutrition Support Management: tube feeding held * Assessment & Plan Note - Comfort Bills APRN, DNP - 11/08/2024 3:07 PM EDT Associated Problem(s): Urinary retention On Flomax * Assessment & Plan Note - Comfort Bills APRN, DNP - 11/08/2024 3:07 PM EDT Associated Problem(s): Zygomatic arch fracture (CMS/HCC) 11/01: OR with ENT for ORIF right Zygomatic arch fracture Recommend Ophtho reevaluation of vision loss/changes in addition to entrapment concern since postop Started on Augmentin for hardware in place after surgery Erythromycin optho ointment TID Sinus Precautions for 2 weeks total * Assessment & Plan Note - Comfort Bills APRN, DNP - 11/08/2024 3:07 PM EDT Associated Problem(s): Injury of globe of eye, right, initial encounter S/p canthotomy at OSH Optho following- will reach out for recheck of vision when patient consistently able to participatein exam Sinus precautions x 2 weeks Erythromycin optho ointment TID * Assessment & Plan Note - Comfort Bills APRN, DNP - 11/08/2024 3:07 PM EDT Associated Problem(s): Fall Admit SGT ICU [x] Tertiary 10/31 Transfer to progressive care 11/04 * Assessment & Plan Note - Comfort Bills APRN, DNP - 11/08/2024 3:07 PM EDT Associated Problem(s): TBI (traumatic brain injury) SAH, IVH NSGY consult DDAVP given at OSH PMR following * Assessment & Plan Note - Comfort Bills APRN, DNP - 11/08/2024 3:07 PM EDT Associated Problem(s): 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 Resume home meds as appropriate in 2 weeks dt tSAH and IVH * Assessment & Plan Note - Comfort Bills APRN, DNP - 11/08/2024 3:07 PM EDT Associated Problem(s): ABLA (acute blood loss anemia) Recheck hemogram and transfuse as necessary * Assessment & Plan Note - Comfort Bills APRN, DNP - 11/08/2024 3:07 PM EDT Associated Problem(s): Hyperglycemia Likely reactive to trauma, recheck and treat as necessary Did not require insulin while in ICU * Assessment & Plan Note - Comfort Bills APRN, DNP - 11/08/2024 3:07 PM EDT Associated Problem(s): Acute respiratory failure with hypoxia Extubated 10/31/24 Placed on HFNC on 11/01/24 2L NC Stable on RA * Assessment & Plan Note - Comfort Bills APRN, DNP - 11/08/2024 3:07 PM EDT Associated Problem(s): Lactic acidosis IVF resuscitation and recheck as necessary * Assessment & Plan Note - Comfort Bills APRN, DNP - 11/08/2024 3:07 PM EDT Associated Problem(s): Electrolyte abnormality Hypomagnesemia (POA) Hypocalcemia (POA) Replace/treat and recheck as necessary * Assessment & Plan Note - Comfort Bills APRN, DNP - 11/08/2024 3:07 PM EDT Associated Problem(s): MELISSA (acute kidney injury) Avoid nephrotoxic agents as able and renally dose medications IVF resuscitation as needed * Assessment & Plan Note - Comfort Bills APRN, DNP - 11/08/2024 3:07 PM EDT Associated Problem(s): Hypothyroidism Home synthroid resumed * Assessment & Plan Note - Comfort Bills APRN, DNP - 11/08/2024 3:07 PM EDT Associated Problem(s): Hypertension Home amlodipine resumed * Assessment & Plan Note - Comfort Bills APRN, DNP - 11/08/2024 3:07 PM EDT Associated Problem(s): Hyperlipidemia Home Atorvastatin resumed * Assessment & Plan Note - RoComfort arroyo APRN, DNP - 11/08/2024 3:07 PM EDT Associated Problem(s): CVA (cerebral vascular accident) (CMS/HCC) PMH CVA and R sided deficits Resume home meds as appropriate in 2 weeks due to tSAH and IVH * Assessment & Plan Note - Comfort Bills APRN, DNP - 11/08/2024 3:07 PM EDT Associated Problem(s): Overweight (BMI 25.0-29.9) Could complicate hospitalization and mobility * Assessment & Plan Note - Comfort Bills APRN, DNP - 11/08/2024 3:07 PM EDT Associated Problem(s): Debility PT/OT following Recommend ERIKA Possible PM&R consult for 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: recommend [id number] BID Improved spasticity, however meds causing nausea; discontinue 11/07 * Assessment & Plan Note - Comfort Bills APRN, DNP - 11/08/2024 3:07 PM EDT Associated Problem(s): Fracture of right orbital floor 11/01: OR with ENT for right orbital floor fracture repair ENT following ; Augmentin x 10 days (11/11); Sinus precautions x 2 weeks Erythromycin ointment TID * Assessment & Plan Note - Comfort Bills APRN, DNP - 11/08/2024 3:07 PM EDT Associated Problem(s): Malnutrition (CMS/HCC) DHT w/TF 11/07: Discontinue TF and encourage oral intake 11/08: Poor appetite, started Megace and resumed cyclic tube feedings Oral supplementation * Assessment & Plan Note - Comfort Bills APRN, DNP - 11/08/2024 3:07 PM EDTAssociated Problem(s): MRSA (methicillin resistant staph aureus) culture positive Oral doxycyline * Progress Notes - Comfort Bills APRN, DNP - 11/08/2024 2:48 PM EDT 11/08/24 [place] Mata HPI [place] Mata is a 64 y/o Female with a PMHx of CVA w/ R sided defecits on ASA/Plavix, HTN, HLP, CAD, and Hypothyroidism who presents on 10/30 s/p fall. Reversed with Anticoagulation was reversed withDDAVP. Injuries include: tSAH, IVH, R tripod fx with non-displaced ZMG, R globe hematoma s/p lateral canthotomy at OSH 11/01: s/p ORIF R zygomatic arch fx and R orbital wall fx repair Interval: Patient is resting in bed with brother in the room. Easily awaken. Able to respond to simple commands. Disoriented to month/year. VSS. On RA, no SOA. NAD. NAEON. Brother shows concern that patient isnot receiving adequate nutrition. He states that for breakfast, patient ate only a few bites. Discussed with brother and RN about intake. Will start Megace, an appetite stimulant. Also to resume cyclic tube feeds at night until patient's appetite has increased. Brother reports that patient had difficulty eating prior to hospitalization due to strokes however, patient has worsening decline to eat.DHT to remain. Patient denies N/V. She reports a continuous headache. Reviewed pain regimen and adju sted medications. Last BM was 11/07. Encourage mobilize with nursing staff and PT/OT. Mobilizing as able. CM reports that next available bed at [facility] is on Thursday depending on DHT and TF. If unable to go to [facility], patient and family are acceptable in going to other facilities. Discussed plan of care with patient/family, RN, LORENZO, and Pharm D who is in understanding. No further concerns per patient or nursing. Edited by: Comfort Bills, AMY, CARI at 11/08/2024 1448 Relevant review of systems was obtained as able and is negative unless stated above in HPI. Vital signs: Vitals: 11/08/24 1108 BP: 132/71 Pulse: 85 Resp: Temp: 36.3 ??C (97.3 ??F) SpO2: 95% Physical Exam Vitals and nursing note reviewed. Constitutional: General: She is not in acute distress. HENT: Head: Normocephalic. Comments: Marley-orbital swelling and sclera hemorrhaging of right eye S/p lateral canthotomy site of right eye Right Ear: External ear normal. Left Ear: External ear normal. Nose: Nose normal. Comments: DHT clamped Mouth/Throat: Mouth: Mucous membranes are moist. Pharynx: Oropharynx is clear. Eyes: Extraocular Movements: Extraocular movements intact. Conjunctiva/sclera: Right eye: Hemorrhage present. Cardiovascular: Rate and Rhythm: Normal rate and regular rhythm. Pulses: Normal pulses. Pulmonary: Effort: Pulmonary effort is normal. Comments: RA Abdominal: General: Abdomen is flat. There is no distension. Palpations: Abdomen is soft. Tenderness: There is no abdominal tenderness. Musculoskeletal: Cervical back: Normal range of motion. Right lower leg: No edema. Left lower leg: No edema. Skin: General: Skin is warm and dry. Capillary Refill: Capillary refill takes less than 2 seconds. Neurological: General: No focal deficit present. Mental Status: She is easily aroused. She is disoriented and confused. GCS: GCS eye subscore is 4. GCS verbal subscore is 5. GCS motor subscore is 6. Motor: Weakness (R side from previous CVA history) present. Comments: Confused to month/year Psychiatric: Behavior: Behavior is cooperative. Cognition and Memory: Memory is impaired. Intake/Output Summary (Last 24 hours) at 11/08/2024 0054 Last data filed at 11/07/20241999 Gross per 24 hour Intake 200 ml Output 300 ml Net -100 ml Lines/Drains/Tubes: Patient Lines/Drains/Airways Status Active Airway None Output by Drain (mL) 11/06/24 0700 - 11/06/24 1859 11/06/24 1900 - 11/07/24 0659 11/07/24 0700 - 11/07/24 1859 11/07/24 1900 - 11/08/24 0659 11/08/24 0700 - 11/08/24 1454 Requested LDAs do not have output data documented. Labs in last 18 hours: CBC WBC ?? Hb ?? Plt ?? Hct ?? ANC ?? INR ??, PTT ??, Anti-Xa ?? MCV ?? BMP Na ?? Cl ?? BUN ?? Glu ?? K ?? Co2 ?? Cr ?? Ca ?? iCa ?? Mg ??, Phos ?? Lactate ?? LFT AST ?? AlkPhos ?? T Prot ?? ALK ?? Bili ?? Alb ?? D.Bili ?? Lab Trends: H/H Results from last 7 days Lab Units 11/04/24 0007 11/03/24 1513 11/03/24 0208 HEMOGLOBIN g/dL 7.9* 8.8* 7.6* HEMATOCRIT % 25.5* 28.3* 24.4* INR Cr Results from last 7 days Lab Units 11/04/24 0007 11/03/24 0208 11/01/24 1809 CREATININE mg/dL 0.73 0.78 0.78 Medications reviewed. Vital signs reviewed. Labs reviewed. Radiography reviewed. Assessment and Plan: Assessment & Plan Zygomatic arch fracture (CMS/HCC) Present on Admission: Yes 11/01: OR with ENT for ORIF right Zygomatic arch fracture Recommend Ophtho reevaluation of vision loss/changes in addition to entrapment concern since postop Started on Augmentin for hardware in place after surgery Erythromycin optho ointment TID Sinus Precautions for 2 weeks total Injury of globe of eye, right, initial encounter Present on Admission: Yes S/p canthotomy at OSH Optho following- will reach out for recheck of vision when patient consistently able to participatein exam Sinus precautions x 2 weeks Erythromycin optho ointment TID Fall Present on Admission: Yes Admit SGT ICU [x] Tertiary 10/31 Transfer to [facility] 11/04 TBI (traumatic brain injury) (CMS/HCC) Present on Admission: Yes SAH, IVH NSGY consult DDAVP given at OSH PMR following Carotid stenosis Present on Admission: 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 Resume home meds as appropriate in 2 weeks dt tSAH and IVH ABLA (acute blood loss anemia) Present on Admission: Yes Recheck hemogram and transfuse as necessary Hyperglycemia Present on Admission: Yes Likely reactive to trauma, recheck and treat as necessary Did not require insulin while in ICU Acute respiratory failure with hypoxia Present on Admission: Yes Extubated 10/31/24 Placed on HFNC on 11/01/24 2L NC Stable on RA Lactic acidosis Present on Admission: Yes IVF resuscitation and recheck as necessary Electrolyte abnormality Present on Admission: Yes Hypomagnesemia (POA) Hypocalcemia (POA) Replace/treat and recheck as necessary MELISSA (acute kidney injury) (CMS/HCC) Present on Admission: Yes Avoid nephrotoxic agents as able and renally dose medications IVF resuscitation as needed Hypothyroidism Present on Admission: Yes Home synthroid resumed Hypertension Present on Admission: Yes Home amlodipine resumed Hyperlipidemia Present on Admission: Yes Home Atorvastatin resumed CVA (cerebral vascular accident) (CMS/HCC) Present on Admission: Yes PMH CVA and R sided deficits Resume home meds as appropriate in 2 weeks due to tSAH and IVH Overweight (BMI 25.0-29.9) Present on Admission: Yes Could complicate hospitalization and mobility Debility Present on Admission: Yes PT/OT following Recommend ERIKA Possible PM&R consult for 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: recommend [id number] BID Improved spasticity, however meds causing nausea; discontinue 11/07 Fracture of right orbital floor (CMS/HCC) Present on Admission: Yes 11/01: OR with ENT for right orbital floor fracture repair ENT following ; Augmentin x 10 days (11/11); Sinus precautions x 2 weeks Erythromycin ointment TID Malnutrition (CMS/HCC) Present on Admission: No DHT w/TF 11/07: Discontinue TF and encourage oral intake 11/08: Poor appetite, started Megace and resumed cyclic tube feedings Oral supplementation MRSA (methicillin resistant staph aureus) culture positive Present on Admission: Not Applicable Oral doxycyline Urinary retention Present on Admission: No On Flomax Plan: -MMPC: wean tylenol and started PRN Fioricet; wean to oxy q8h PRN -Resumed home amlodipine and discontinue PRN -Augmentin through 11/11 and Doxycycline for MRSA coverage on wound cx -DHT remains dt poor appetite; resumed cyclic feeds; if eating >50% of all meals, can remove DHT -Initiated megace to stimulate appetite -Pulm Hygiene, IS -Ophtho following -ENT: sinus precautions for 2 weeks, Erthromycin Ophtho ointment TID, follow up in 2 weeks after discharge; sign off -PM&R following -Bowel regimen -Delirium precautions -PT/OT Discharge Dispo: Subacute Rehab Barrier: DHT and TF Edited by: Comfort Bills APRN, DNP at 11/08/2024 1454 Comfort Bills APRN, DNP * Progress Notes - Rani Dodson RN - 11/08/2024 11:37 AM EDT Case Management Adult Progress Note [place] Mata 64 y.o. female CSN: [id number] Admission: 10/30/2024 2:57 AM Primary Problem: Fall Anticipated Discharge Date: TBD DHT remains in place. Pt has not had adequate oral intake since cyclic feeds have been DC. Pt states she has N/V. [facility] will not have a bed available until Friday 11/10. [facility] when pt is medically ready. Rani Dodson RN * Consults - Jennifer Slater RD - 11/08/2024 9:46 AM EDT Adult Nutrition Evaluation Note [place] Mata 64 y.o. female CSN: [id number] Room/Bed 116/116A Nutrition evaluation type: follow-up Reason for evaluation: Hospital course: 64 y.o female admitted after fall. OSH found cerebral artery hemmorhage, ad tripodfx of rt eye. Zygomatic arch rx. Plan to extubate. OR 11/01 for ORIF zygomaticomaxillary complex fracture. DIRECT CARE PROFESSIONAL recs Easy to chew with thin liquids. Plans to downgrade. Past medical/ surgical history: Past Medical History[1]Surgical History[2] Social history: Additional comments: Out of room at time of visit, downgraded. Not a big eater per family. Likes pepsi and chocolate. Off pressors. No significant weight changes. TF at 40 ml/hr over 10 hours. Planned to remove dht, advance diet. Per nurse, poor intake, keep dobhoff and just decrease rate of feeds. Vitals and Basic Assessment: BP: 138/77 Temp: 37.2 ??C (98.9 ??F) Invasive Ventilator Initiated (ETT/Trach Only): Yes Oxygen Therapy: None (Room air) O2 Delivery Method: Nasal cannula [place] Coma Scale Score: 14 Denis Scale Score: 15 Pietro/Cubbin Pressure Risk Score: 37 Most Recent BM Date: 11/07/24 GI Symptoms: Nausea Edema: Facial Allergies: NKFA Medications: Current Scheduled Medications[3]Current Continuous Medications[4]Current PRN Medications[5] Labs: Reviewed. Anthropometrics: Height: 160 cm (5' 2.99 ) Weight: 62.1 kg (136 lb 14.5 oz) BMI (Calculated): 24.26 Weight Evaluation: Overweight (BMI 25-29.9) Polaris Body Weight (kg): 52.3 Percent Polaris Body Weight: 129 Adjusted Body Weight (kg): 56.1 Wt Readings from Last 5 Encounters: 11/07/24 62.1 kg (136 lb 14.5 oz) 06/19/23 58.9 kg (129 lb 13.6 oz) 05/22/23 59.1 kg (130 lb 3.2 oz) 07/08/21 58.3 kg (128 lb 9.6 oz) 06/17/21 60 kg (132 lb 3.2 oz) Estimated Needs: Kcal/ K - 35 Kcal Provided: 2027 - 2365 Kcal Needs Based On: Current weight Gm Protein/ Kg : 1.2 - 1.5 Protein Provided: 81 - 101 Protein Needs Based On: Current weight Metabolic Cart Study Results: Current Nutrition Intake: Diet Supplements: Boost Very High CalorieTID Diet Order: Adult Diet Diet Texture: Easy to Chew 7 Percent meals eaten: 25% x 3 meals. Tf's on hold. Diet Experience and Nutrition History: Diet Education Provided: Will monitor Pertinent home medications: WyattteAnders Nutrition Focused Physical Exam: Physical exam performed on (date): 10/31 Temples (muscles): None Clavicle (muscle): None Orbital (fat): Mild Triceps (fat): None Assessment of Malnutrition: Malnutrition Identified: No Nutrition Problem: Inadequate oral intake related to current medical status as evidenced by NPO diet (diet advanced, tf's on hold). Status of Nutrition Diagnosis: Ongoing Nutrition Interventions and Recommendations: - Continue Easy to Chew diet - Continue Boost [facility] TID - Will send snacks TID. - MVI. - Record PO intake. - TF Recs: Cyclic 50% of needs - Impact Peptide 1.5 @ 60 mL/hr x 12 hours and meets 50% of needs to help increase PO during day. - Provides: 1080 kcal, 68g protein, 101g CHO, 556 mL water - Free water per team - Document infusions If/once pt consuming 50% Of needs by PO consistently may discontinue feeds. Consider noel count. Nutrition Monitoring and Goals: - Consume 50% or greater (ongoing) - Tolerate >80% of goal (No longer appropriate) - Monitor weight, labs, and elytes Acuity Level: 2 Jennifer Slater, RD, LD [1] Past Medical History: Diagnosis Date Depression Fibromyalgia Hx of degenerative disc disease Hyperlipidemia Hypertension Neuropathy Stroke (CMS/HCC) [2] Past Surgical History: Procedure Laterality Date CAROTID STENT LUNG SURGERY ORAL SURGERY RENAL ARTERY STENT REPLACEMENT TOTAL HIP LATERAL POSITION TONSILLECTOMY [3] acetaminophen, 1,000 mg, Oral, q6h BACIILO amLODIPine, 5 mg, Oral, Daily amoxicillin-clavulanate, 875 mg, Oral, q12h atorvastatin, 40 mg, Oral, Nightly barium sulfate, 90 mL, Oral, Once in imaging doxycycline, 100 mg, Oral, BID enoxaparin, 30 mg, Subcutaneous, BID erythromycin, 1 Application, Both Eyes, q8h BACILIO FLUoxetine, 20 mg, Oral, Daily levothyroxine, 75 mcg, Oral, Daily before breakfast mirtazapine, 15 mg, Oral, Nightly mupirocin, 1 Application, Each Nostril, BID polyethylene glycol, 17 g, Oral, BID QUEtiapine, 50 mg, Oral, Nightly senna-docusate, 2 tablet, Oral, BID tamsulosin, 0.4 mg, Oral, Daily with dinner [4] [5] PRN medications: guaiFENesin, hydrALAZINE, hydrOXYzine pamoate, ipratropium- albuterol, ondansetron ODT OR ondansetron, oxyCODONE * Progress Notes - Reanna Suggs MD - 11/08/2024 6:47 AM EDT Images from the original note were not included. [facility] Department of Otolaryngology-Head and Neck Surgery Otolaryngology-HNS Progress Note 11/08/24 [place] Mata Subjective Subjective: HPI 24Hr Events: Significant improvement in eye movement on exam with no entrapment noted or double vision. Unclear if she can appreciate color given slight confusion on exam. No purulence expressed on exam this morning. Review of Systems: Relevant review of systems was obtained as able and is negative unless stated above in HPI. Objective Objective: Vital signs: Vitals: 11/08/24 0601 BP: 121/52 Pulse: 83 Resp: Temp: 36.6 ??C (97.9 ??F) SpO2: 96% Physical Exam: Physical Exam GEN: no apparent distress, well appearing female HEAD: Normocephalic, atraumatic EYES: Right conjunctival injection, EOM intact with upward gaze significantly improved, proptosis improved, no purulent drainage appreciated EARS: Pinnae without laceration or deformity, no drainage NOSE: Nares patent, no drainage MOUTH: Mucous membranes pink and moist, tongue with full ROM NECK: Soft, supple, no palpable masses RESP: Symmetric chest rise, unlabored breathing CV: appears well perfused, no cyanosis MSK/EXT: no gross deformities, appropriate ROM NEURO: alert and oriented, no focal deficits PSYCH: Appropriate mood and affect Edited by: Reanna Suggs MD at 11/08/2024 0634 Intake/Output Summary (Last 24 hours) at 11/08/2024 0647 Last data filed at 11/07/20241999 Gross per 24 hour Intake 200 ml Output 300 ml Net -100 ml Lines/Drains/Tubes: Patient Lines/Drains/Airways Status Active Airway None Output by Drain (mL) 11/06/24 0700 - 11/06/24 1859 11/06/24 1900 - 11/07/24 0659 11/07/24 0700 - 11/07/24 1859 11/07/24 1900 - 11/08/24 0647 Requested LDAs do not have output data documented. Labs in last 18 hours: CBC WBC ?? Hb ?? Plt ?? Hct ?? ANC ?? INR ??, PTT ??, Anti-Xa ?? MCV ?? BMP Na ?? Cl ?? BUN ?? Glu ?? K ?? Co2 ?? Cr ?? Ca ?? iCa ?? Mg ??, Phos ?? Lactate ?? Radiographic Interpretation: No imaging today. Medications reviewed. Vital signs reviewed. Labs reviewed. Assessment/Plan Assessment and Plan: Medical Problems Problem List * (Principal) Fall Zygomatic arch fracture ([facility]/HCC) Overview Addendum 11/06/2024 11:20 AM by Jenny Miller APRN ENT consult 11/01: s/p ORIF R zygomatic arch fx and R orbital wall fx repair Augmentin through 11/11 Sinus precautions Injury of globe of eye, right, initial encounter Overview Addendum 11/06/2024 11:30 AM by Jenny Miller APRN Optho consult Lateral canthotomy at OSH Follow up 11/21 @ 12:25. TBI (traumatic brain injury) (CMS/HCC) Carotid stenosis ABLA (acute blood loss anemia) Hyperglycemia Acute respiratory failure with hypoxia Lactic acidosis Electrolyte abnormality MELISSA (acute kidney injury) (CMS/HCC) Hypothyroidism Hypertension Hyperlipidemia CVA (cerebral vascular accident) (CMS/HCC) Overweight (BMI 25.0-29.9) Debility Fracture of right orbital floor (CMS/HCC) Malnutrition (CMS/HCC) Overview Signed 11/06/2024 11:22 AM by Jenny Miller APRN DHT w/TF Oral supplementation MRSA (methicillin resistant staph aureus) culture positive Overview Addendum 11/06/2024 11:26 AM by Paul, Jenny B, PULL OUT OPERATOR Eye wound culture: MRSA Doxycycline Present on Admission: Zygomatic arch fracture ([facility]/HCC) Injury of globe of eye, right, initial encounter Fall TBI (traumatic brain injury) ([facility]) Carotid stenosis ABLA (acute blood loss anemia) Hyperglycemia Acute respiratory failure with hypoxia Lactic acidosis Electrolyte abnormality MELISSA (acute kidney injury) ([facility]) Hypothyroidism Hypertension Hyperlipidemia CVA (cerebral vascular accident) ([facility]) Overweight (BMI 25.0-29.9) Debility Fracture of right orbital floor ([facility]) Plan: [place] Mata is a 64 y.o. female with PMHx significant for CVA, R hemiparesis, carotid stent on Plavix and HTN who presents to ED intubated and sedated following unwitnessed fall. She was found to have right tripod fracture with non-displaced zygomatic arch and comminuted right orbital floor fracture. She underwent open reduction internal fixation of right ZMC and orbital floor fractures on 11/01. #S/p Right ZMC and orbital floor repair 11/01 - Finish out course of 10-day Augmentin - Erythromycin ophtho ointment TID - Sinus Precautions for 2 weeks total - Right lateral canthotomy management per ophthalmology -ENT will coordinate outpatient follow-up #Facial laceration - Use half-strength hydrogen peroxide on a Q-tip to clean the wound/sutures of crusting. Pat dry, then use thin layer of bacitracin twice daily on wound for 5 days. After 5 days, stop the antibiotic ointment, and use thin layer of Vaseline or Aquaphor until fully healed. - When showering, do not have wound in direct spray; let the soapy water run over the wound and do not scrub. Pat dry. May fully submerge in 3 days. -Once completely healed, use sunblock or physical protection (e.g., broad- brimmed hat) when out in the sun for 6 months to prevent hyperpigmentation. -Vitamin E or Mederma may be used in 1 month to reduce scarring. Edited by: Reanna Suggs MD at 11/08/2024 8143 Dispo: ENT will now sign-off Reanna Suggs MD General ENT Adult Inpatient Coverage and New Consults Pediatric ENT Inpatient Coverage and New Consults Head and Neck Cancer/Oncology Inpatient Coverage *If the above links do not work, please either go to the On-Call Finder in [facility] for appropriate coverage Cosigned by Yobani Benoit MD at 11/08/2024 6:50 PM EDT * Query Clarification Note - Katharine Savage MD - 11/08/2024 6:42 AM EDT Physician Clarification Please review the following and provide your response below. Based on the findings below, could you clarify which, if any of the following, is the most likely etiology of the confusion/AMS? []Delirium due to a medical condition (please specify if known) [x]Delirium due to physiological condition (please specify if known) []Other (please specify) This documentation will become part of the patient's medical record. * Significant Event - Fan Hollis MD - 11/08/2024 6:25 AM EDT ENT evaluated this AM. Proptosis has improved, no further purulence expressed. ENT to sign off. Management of lateral canthotomy per Ophthalmology. Please reach out to ENT once disposition determinedto arrange for follow-up 2 weeks after discharge. * Care Plan - Sindi Porter RN - 11/07/2024 11:04 PM EDT Problem: Adult Inpatient Plan of Care Goal: Plan of Care Review Outcome: Ongoing, Not Progressing Flowsheets (Taken 11/07/2024 2302) Progress: no change Plan of Care Reviewed With: patient Goal: Patient-Specific Goal (Individualized) Outcome: Ongoing, Not Progressing Flowsheets (Taken 11/07/20241999) Patient/Family-Specific Goals (Include Timeframe): pt will remain free from injury during shift Individualized Care Needs: safety Anxieties, Fears or Concerns: not getting better Goal: Absence of Hospital-Acquired Illness or Injury Outcome: Ongoing, Not Progressing Intervention: Identify and Manage Fall Risk Flowsheets (Taken 11/07/20242199) Safety Promotion/Fall Prevention: activity supervised assistive device/personal items within [facility] fall prevention program maintained clutter-free environment maintained lighting adjusted room organization consistent safety round/check completed Intervention: Prevent Skin Injury Flowsheets Taken 11/07/20242199 Body Position: turned right Taken 11/07/20241999 Skin Protection: incontinence pads utilized transparent dressing maintained Intervention: Prevent and Manage VTE (Venous Thromboembolism) Risk Flowsheets (Taken 11/07/20241999) VTE Prevention/Management: medication Intervention: Prevent Infection Flowsheets (Taken 11/07/20241999) Infection Prevention: environmental surveillance performed rest/sleep promoted Goal: Optimal Comfort and Wellbeing Outcome: Ongoing, Not Progressing Intervention: Monitor Pain and Promote Comfort Flowsheets (Taken 11/07/20242243) Pain Management Interventions: medication (see MAR) Intervention: Provide Person-Centered Care Flowsheets (Taken 11/07/20241999) Trust Relationship/Rapport: care explained choices provided thoughts/feelings acknowledged Problem: Skin Injury Risk Increased Goal: Skin Health and Integrity Outcome: Ongoing, Not Progressing Intervention: Optimize Skin Protection Flowsheets Taken 11/07/20242199 Activity Management: activity adjusted per tolerance Head of Bed (HOB) Positioning: HOB at 20-30 degrees Taken 11/07/20241999 Pressure Reduction Techniques: heels elevated off bed pressure points protected weight shift assistance provided Pressure Reduction Devices: positioning supports utilized Skin Protection: incontinence pads utilized transparent dressing maintained Intervention: Promote and Optimize Oral Intake Flowsheets Taken 11/07/20241999 Nutrition Interventions: food preferences provided frequent small meals provided Taken 11/06/20241999 Oral Nutrition Promotion: physical activity promoted rest periods promoted Problem: Fall Injury Risk Goal: Absence of Fall and Fall-Related Injury Outcome: Ongoing, Not Progressing Intervention: Identify and Manage Contributors Flowsheets (Taken 11/07/20241999) Medication Review/Management: medications reviewed Intervention: Promote Injury-Free Environment Flowsheets (Taken 11/07/20242199) Safety Promotion/Fall Prevention: activity supervised assistive device/personal items within [facility] fall prevention program maintained clutter-free environment maintained lighting adjusted room organization consistent safety round/check completed Problem: Functional Deficit Goal: Improved Balance and Postural Control Outcome: Ongoing, Not Progressing Intervention: Optimize Balance and Safe Activity Flowsheets (Taken 11/07/20242199) Activity Management: activity adjusted per tolerance Safety Promotion/Fall Prevention: activity supervised assistive device/personal items within reach fall prevention program maintained clutter-free environment maintained lighting adjusted room organization consistent safety round/check completed Goal: Optimal Cognitive Function Outcome: Ongoing, Not Progressing Intervention: Optimize Cognitive Function Flowsheets (Taken 11/07/20241999) Sensory Stimulation Regulation: care clustered lighting decreased quiet environment promoted Goal: Optimal Coordination Outcome: Ongoing, Not Progressing Goal: Improved Muscle Strength Outcome: Ongoing, Not Progressing Intervention: Optimize Muscle Strength Flowsheets Taken 11/07/20242199 Activity Management: activity adjusted per tolerance Taken 11/07/20241999 Activity Assistance Provided: assistance, 2 people Goal: Improved Muscle Tone Outcome: Ongoing, Not Progressing Goal: Optimal Range of Motion Outcome: Ongoing, Not Progressing Intervention: Maintain Functional Joint Range Position Flowsheets Taken 11/07/20242199 Positioning/Transfer Devices: pillows in use Taken 11/07/20241999 Range of Motion: active ROM (range of motion) encouraged Goal: Compensation for Sensory Deficit Outcome: Ongoing, Not Progressing Intervention: Optimize Sensory Function Flowsheets Taken 11/07/20241999 Pressure Reduction Techniques: heels elevated off bed pressure points protected weight shift assistance provided Skin Protection: incontinence pads utilized transparent dressing maintained Taken 11/06/20241999 Sensation Impairment Protection: cues provided for safety Problem: Infection Goal: Absence of Infection Signs and Symptoms Outcome: Ongoing, Not Progressing Intervention: Prevent or Manage Infection Flowsheets Taken 11/07/20242199 Isolation Precautions: precautions maintained Taken 11/07/20241999 Infection Management: aseptic technique maintained Problem: Pain Acute Goal: Optimal Pain Control and Function Outcome: Ongoing, Not Progressing Intervention: Optimize Psychosocial Wellbeing Flowsheets (Taken 11/07/20241999) Supportive Measures: active listening utilized positive reinforcement provided Diversional Activities: television Intervention: Develop Pain Management Plan Flowsheets (Taken 11/07/2024 2244) Pain Management Interventions: medication (see MAR) Intervention: Prevent or Manage Pain Flowsheets (Taken 11/07/20241999) Sensory Stimulation Regulation: care clustered lighting decreased quiet environment promoted Bowel Elimination Promotion: adequate fluid intake promoted Sleep/Rest Enhancement: awakenings minimized noise level reduced regular sleep/rest pattern promoted Medication Review/Management: medications reviewed Problem: Enteral Nutrition Goal: Absence of Aspiration Signs and Symptoms Outcome: Ongoing, Not Progressing Intervention: Minimize Aspiration Risk Flowsheets (Taken 11/07/20242199) Head of Bed (HOB) Positioning: HOB at 20-30 degrees Goal: Feeding Tolerance Outcome: Ongoing, Not Progressing Intervention: Prevent and Manage Feeding Intolerance Flowsheets (Taken 11/07/20241999) Nutrition Support Management: tube feeding held * Assessment & Plan Note - Comfort Bills APRN, DNP - 11/07/2024 3:03 PM EDT Associated Problem(s): Acute respiratory failure with hypoxia Extubated 10/31/24 Placed on HFNC on 11/01/24 2L NC Stable on RA * Assessment & Plan Note - Comfort Bills APRN, DNP - 11/07/2024 3:03 PM EDT Associated Problem(s): 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 Resume home meds as appropriate in 2 weeks dt tSAH and IVH * Assessment & Plan Note - Comfort Bills APRN, DNP - 11/07/2024 3:03 PM EDT Associated Problem(s): CVA (cerebral vascular accident) (CMS/HCC) PMH CVA and R sided deficits Resume home meds as appropriate in 2 weeks due to tSAH and IVH * Assessment & Plan Note - Comfort Bills APRN, DNP - 11/07/2024 3:03 PM EDT Associated Problem(s): Debility PT/OT following Recommend ERIKA Possible PM&R consult for 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: recommend [id number] BID Improved spasticity, however meds causing nausea; discontinue 11/07 * Assessment & Plan Note - Comfort Bills APRN, DNP - 11/07/2024 3:03 PM EDT Associated Problem(s): Fracture of right orbital floor 11/01: OR with ENT for right orbital floor fracture repair ENT following ; Augmentin x7 days (11/11); Sinus precautions x 2 weeks Erythromycin ointment TID * Assessment & Plan Note - Comfort Bills APRN, DNP - 11/07/2024 3:03 PM EDT Associated Problem(s): Malnutrition (CMS/HCC) DHT w/TF Discontinue TF and encourage oral intake Oral supplementation * Assessment & Plan Note - Comfort Bills APRN, DNP - 11/07/2024 3:03 PM EDT Associated Problem(s): MRSA (methicillin resistant staph aureus) culture positive Oral doxycyline * Assessment & Plan Note - Comfort Bills APRN, DNP - 11/07/2024 3:03 PM EDT Associated Problem(s): Zygomatic arch fracture (CMS/HCC) 11/01: OR with ENT for ORIF right Zygomatic arch fracture Recommend Ophtho reevaluation of vision loss/changes in addition to entrapment concern since postop Started on Augmentin for hardware in place after surgery Erythromycin optho ointment TID Sinus Precautions for 2 weeks total * Assessment & Plan Note - Comfort Bills APRN, DNP - 11/07/2024 3:03 PM EDT Associated Problem(s): Injury of globe of eye, right, initial encounter S/p canthotomy at OSH Optho following- will reach out for recheck of vision when patient consistently able to participatein exam Sinus precautions x 2 weeks Erythromycin optho ointment TID * Assessment & Plan Note - Comfort Bills APRN, DNP - 11/07/2024 3:03 PM EDT Associated Problem(s): Fall Admit SGT ICU [x] Tertiary 10/31 * Assessment & Plan Note - Comfort Bills APRN, DNP - 11/07/2024 3:03 PM EDT Associated Problem(s): TBI (traumatic brain injury) SAH, IVH NSGY consult DDAVP given at OSH PMR consult for Thursday * Assessment & Plan Note - Comfort Bills APRN, DNP - 11/07/2024 3:03 PM EDT Associated Problem(s): ABLA (acute blood loss anemia) Recheck hemogram and transfuse as necessary * Assessment & Plan Note - Comfort Bills APRN, DNP - 11/07/2024 3:03 PM EDT Associated Problem(s): Hyperglycemia Likely reactive to trauma, recheck and treat as necessary Did not require insulin while in ICU * Assessment & Plan Note - Comfort Bills APRN, DNP - 11/07/2024 3:03 PM EDT Associated Problem(s): Lactic acidosis IVF resuscitation and recheck as necessary * Assessment & Plan Note - Comfort Bills APRN, DNP - 11/07/2024 3:03 PM EDT Associated Problem(s): Electrolyte abnormality Hypomagnesemia (POA) Hypocalcemia (POA) Replace/treat and recheck as necessary * Assessment & Plan Note - Comfort Bills APRN, DNP - 11/07/2024 3:03 PM EDT Associated Problem(s): MELISSA (acute kidney injury) Avoid nephrotoxic agents as able and renally dose medications IVF resuscitation as needed * Assessment & Plan Note - Comfort Bills APRN, DNP - 11/07/2024 3:03 PM EDT Associated Problem(s): Hypothyroidism Resume home meds as appropriate * Assessment & Plan Note - Comfort Bills APRN, DNP - 11/07/2024 3:03 PM EDT Associated Problem(s): Hypertension Resume home meds as appropriate * Assessment & Plan Note - Comfort Bills APRN, DNP - 11/07/2024 3:03 PM EDT Associated Problem(s): Hyperlipidemia Resume home meds as appropriate * Assessment & Plan Note - Comfort Bills APRN, DNP - 11/07/2024 3:03 PM EDT Associated Problem(s): Overweight (BMI 25.0-29.9) Could complicate hospitalization and mobility * Progress Notes - Comfort Bills APRN, DNP - 11/07/2024 2:45 PM EDT 11/07/24 [place] Mata HPI [place] Mata is a 64 y/o Female with a PMHx of CVA w/ R sided defecits on ASA/Plavix, HTN, HLP, CAD, and Hypothyroidism who presents on 10/30 s/p fall. Reversed with Anticoagulation was reversed withDDAVP. Injuries include: tSAH, IVH, R tripod fx with non-displaced ZMG, R globe hematoma s/p lateral canthotomy at OSH 11/01: s/p ORIF R zygomatic arch fx and R orbital wall fx repair Interval: Patient is resting in bed with sister, Jessica in the room. Easily awaken. Able to respond to simple commands. Hypertensive BP with all other stable vitals. NAD. NAEON. On RA, no SOA. DHT in place with cyclic tube feedings. Discussed with patient and sister about discontinuing cyclic tube feeds and pull tube when eating 50% of all meals. DHT clamped. Patient currently has poor appetite with eating oral foods. RN to monitor intake with each meal. Currently has nausea. PM&R report to discontinue home dantrolene. Last BM was 11/07. Encourage mobilize with nursing staff and PT/OT. Mobilizing as able. Patient reports that pain is controlled with current pain regimen. Sister is concerned about patient right eye blood sclera s/p canthotomy. Assessed right eye and vision. Patient showed no visual impairment and denies visual changes. Discussed with RN to place warm compresses and monitor for visual changes. Ophthalmology following. CM reports that [facility] will accept once DHT and TF has been discontinued. Discussed plan of care with patient/family, RN, CM, and Pharm D who is in understanding. No further concerns per patient or nursing. Edited by: Comfort Bills, PULL OUT OPERATOR, DNP at 11/07/2024 1502 Relevant review of systems was obtained as able and is negative unless stated above in HPI. Vital signs: Vitals: 11/07/24 1154 BP: (!) 150/79 Pulse: 80 Resp: 14 Temp: 36.8 ??C (98.3 ??F) SpO2: 96% Physical Exam Vitals and nursing note reviewed. Constitutional: General: She is not in acute distress. HENT: Head: Normocephalic. Comments: Marley-orbital swelling of right eye S/p lateral canthotomy site of right eye Right Ear: External ear normal. Left Ear: External ear normal. Nose: Nose normal. Comments: DHT clamped Mouth/Throat: Mouth: Mucous membranes are moist. Pharynx: Oropharynx is clear. Eyes: Extraocular Movements: Extraocular movements intact. Conjunctiva/sclera: Right eye: Hemorrhage present. Cardiovascular: Rate and Rhythm: Normal rate and regular rhythm. Pulses: Normal pulses. Pulmonary: Effort: Pulmonary effort is normal. Comments: RA Abdominal: General: Abdomen is flat. There is no distension. Palpations: Abdomen is soft. Musculoskeletal: Cervical back: Normal range of motion. Right lower leg: No edema. Left lower leg: No edema. Skin: General: Skin is warm and dry. Capillary Refill: Capillary refill takes less than 2 seconds. Neurological: General: No focal deficit present. Mental Status: She is oriented to person, place, and time and easily aroused. GCS: GCS eye subscore is 4. GCS verbal subscore is 5. GCS motor subscore is 6. Motor: Weakness (R side from previous CVA history) present. Psychiatric: Behavior: Behavior is cooperative. Intake/Output Summary (Last 24 hours) at 11/07/2024 1503 Last data filed at 11/07/2024 0550 Gross per 24 hour Intake 739 ml Output 300 ml Net 439 ml Lines/Drains/Tubes: Patient Lines/Drains/Airways Status Active Airway None Output by Drain (mL) 11/05/24 0700 - 11/05/24 1859 11/05/24 1900 - 11/06/24 0659 11/06/24 0700 - 11/06/24 1859 11/06/24 1900 - 11/07/24 0659 11/07/24 0700 - 11/07/24 1503 Requested LDAs do not have output data documented. Labs in last 18 hours: CBC WBC ?? Hb ?? Plt ?? Hct ?? ANC ?? INR ??, PTT ??, Anti-Xa ?? MCV ?? BMP Na ?? Cl ?? BUN ?? Glu ?? K ?? Co2 ?? Cr ?? Ca ?? iCa ?? Mg ??, Phos ?? Lactate ?? LFT AST ?? AlkPhos ?? T Prot ?? ALK ?? Bili ?? Alb ?? D.Bili ?? Lab Trends: H/H Results from last 7 days Lab Units 11/04/24 0007 11/03/24 1513 11/03/24 0208 HEMOGLOBIN g/dL 7.9* 8.8* 7.6* HEMATOCRIT % 25.5* 28.3* 24.4* INR Cr Results from last 7 days Lab Units 11/04/24 0007 11/03/24 0208 11/01/24 1809 CREATININE mg/dL 0.73 0.78 0.78 Medications reviewed. Vital signs reviewed. Labs reviewed. Radiography reviewed. Assessment and Plan: Assessment & Plan Zygomatic arch fracture ([facility]) 11/01: OR with ENT for ORIF right Zygomatic arch fracture Recommend Ophtho reevaluation of vision loss/changes in addition to entrapment concern since postop Started on Augmentin for hardware in place after surgery Erythromycin optho ointment TID Sinus Precautions for 2 weeks total Injury of globe of eye, right, initial encounter S/p canthotomy at OSH Optho following- will reach out for recheck of vision when patient consistently able to participatein exam Sinus precautions x 2 weeks Erythromycin optho ointment TID Fall Admit SGT ICU [x] Tertiary 10/31 TBI (traumatic brain injury) ([facility]) SAH, IVH NSGY consult DDAVP given at OSH PMR consult for Thursday 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 Resume home meds as appropriate in 2 weeks dt tSAH and IVH ABLA (acute blood loss anemia) Recheck hemogram and transfuse as necessary Hyperglycemia Likely reactive to trauma, recheck and treat as necessary Did not require insulin while in ICU Acute respiratory failure with hypoxia Extubated 10/31/24 Placed on HFNC on 11/01/24 2L NC Stable on RA Lactic acidosis IVF resuscitation and recheck as necessary Electrolyte abnormality Hypomagnesemia (POA) Hypocalcemia (POA) Replace/treat and recheck as necessary MELISSA (acute kidney injury) ([facility]) Avoid nephrotoxic agents as able and renally dose medications IVF resuscitation as needed Hypothyroidism Resume home meds as appropriate Hypertension Resume home meds as appropriate Hyperlipidemia Resume home meds as appropriate CVA (cerebral vascular accident) ([facility]) PMH CVA and R sided deficits Resume home meds as appropriate in 2 weeks due to tSAH and IVH Overweight (BMI 25.0-29.9) Could complicate hospitalization and mobility Debility PT/OT following Recommend ERIKA Possible PM&R consult for 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: recommend [id number] BID Improved spasticity, however meds causing nausea; discontinue 11/07 Fracture of right orbital floor (CMS/HCC) 11/01: OR with ENT for right orbital floor fracture repair ENT following ; Augmentin x7 days (11/11); Sinus precautions x 2 weeks Erythromycin ointment TID Malnutrition (CMS/HCC) DHT w/TF Discontinue TF and encourage oral intake Oral supplementation MRSA (methicillin resistant staph aureus) culture positive Oral doxycyline Plan: -MMPC -Augmentin through 11/11 and Doxycycline for MRSA coverage on wound cx -Continue with DHT clamped, once tolerating 50% meals; discontinue cyclic feeds -Pulm Hygiene, IS -Ophtho following -ENT following; sinus precautions for 2 weeks, Erthromycin Ophtho ointment TID -PM&R following; discontinue dantrolene dt increase nausea -Bowel reg -Delirium precautions -PT/OT Discharge Dispo: Subacute Rehab ([place]) Edited by: Comfort Bills APRN, DNP at 11/07/2024 1503 Comfort Bills APRN, DNP * Progress Notes - Alessandra Ivey - 11/07/2024 2:12 PM EDT Physical Therapy Treatment Patient Name: [place] Mata Today's Date: 11/07/2024 PT Discharge Recommendations: Subacute rehab Equipment Recommended: Defer to facility Total Treatment Time: 40 minutes Subjective You all are so sweet. Pt agreeable to PT services Participants in Care Family/Caregiver Present: Yes Family/Caregiver: Other (Specify) (brother and sister) Presentation Oxygen Therapy: None (Room air) Lines and Tubes: Intravenous access, Dobhoff (purewick) Pre-Session: Supine, Head of bed elevated, Lines intact Pre-Session Comments: RN agreeable to therapy session. Post-Session: RN notified, Call light in reach, Lines intact (bed in chair position) Post-Session Comments: Positioned Pt for comfort. Family present at bedside. Precautions Medical Precautions: Fall precautions, Sinus Objective Pain Pt with no complaints of pain. Delirium Screening RASS: Alert and calm Confusion Assessment Method-ICU (CAM-ICU/PCAM-ICU) Feature 3: Altered Level of Consciousness: Negative Bed Mobility Bed Mobility Exam: Scooting/Bridging Level of [place]: Dependent (scoot to HOB in supine and scoot back on bed in sitting) Physical/Nonphysical Assist: Verbal Cues, Maximal cues, Additional assist utilized for safety Bed Mobility Exam: Supine to Sit Level of [place]: Maximum assist (25% patient's effort) Physical/Nonphysical Assist: Verbal Cues, Nonverbal cues (demo/gestures), Additional assist utilized for safety, HOB elevated, Maximal cues Bed Mobility Exam: Sit to Supine Level of [place]: Maximum assist (25% patient's effort) Physical/Nonphysical Assist: Verbal Cues, Additional assist utilized for safety, Maximal cues, Nonverbal cues (demo/gestures) Transfers Transfer Exam: Sit to stand Level of [place]: Maximum assist (25% patient's effort) Physical/Nonphysical Assist: Verbal Cues, Nonverbal cues (demo/gestures), Additional assist utilized for safety Assistive Device: Hand held assist Transfer Exam: Stand to Sit Level of [place]: Maximum assist (25% patient's effort) Physical/Nonphysical Assist: Verbal Cues, Nonverbal cues (demo/gestures), Additional assist utilized for safety Assistive Device: Hand held assist Balance Postural Appearance Posture: Rounded shoulders, Weight shift right of midline Static Sitting Balance Static Sitting-Balance Support: Feet supported, Right upper extremity support, Left upper extremitysupport Static Sitting-Level of Assistance: Minimum assistance Dynamic Sitting Balance Dynamic Sitting-Balance Support: Feet supported, Left upper extremity support, Right upper extremity support Level of Assistance: Moderate assistance Static Standing Balance Static Standing-Balance Support: Right upper extremity support, Left upper extremity support Static Standing-Level of Assistance: Maximum assistance Therapeutic Activity (40 minutes) Pt participated in therapeutic activities including bed mobility, edge of bed sitting, and functional transfers to improve strength, balance, endurance and independence with functional mobility. Verbal and tactile cues provided by therapist for sequencing of log roll technique to improve safety andefficiency with bed mobility. Pt sat upright unsupported at EOB for 10 minutes in attempt to increase trunk strength, tolerance to upright position, and sitting balance for participation in upright activities. Pt demonstrated right sided lean in sitting requiring consistent min assist to maintain static sitting balance and midline orientation. Pt tolerated x3 sit to stands from eob with cues for body mechanics, upright posture, and increased hip and knee extension. Pt tolerated static standing for ~1 minute each rep with max assist for balance. Pt required prolonged seated rest breaks betweenSTS reps due to fatigue. Pt returned to supine at end of session and positioned in bed to chair position. Assessment Pt continues to demo impairments in strength, balance, postural control, transfer sequencing, and endurance. Pt tolerated PT session with no adverse effects. Pt would benefit from continued skilled PT intervention to progress functional mobility. Pt is unable to ambulate a functional household distance, requires significant physical assist for transfers, and is a high fall risk due to aforementioned impairments. Pt is unable to tolerate 3 hours of therapy at this time. Pt is most appropriate for subacute rehab at discharge to progress functional mobility, increase safety, decrease caregiver burden, and return to PLOF to facilitate a safe transition home. PT Recommendations Discharge Destination: Subacute rehab Discharge Equipment: Defer to facility Plan Progress PT POC PT Goals PT GOAL DETAILS Goal Established Date Time Frame Goal Status PT Goal 1: Pt will transfer supine<>sit MIN A 10/31/24 2 weeks PT Goal 2: Pt will transfer sit<>stand and bed<>chair MIN A with LRAD as appropriate 10/31/24 2 weeks PT Goal 3: Pt will ambulate x25ft MIN A with LRAD as appropriate 10/31/24 2 weeks PT Goal 4: Pt/Pt's family will be IND with HEP, safety recommendations, and discharge recommendations. 10/31/24 2 weeks Written by Alessandra Ivey on 11/07/24 at 2:47 PM. * Progress Notes - Georgette Bhatia - 11/07/2024 2:10 PM EDT Occupational Therapy Treatment Patient Name: [place] Mata Today's Date: 11/07/2024 Total Treatment Time: 39 minutes OT Discharge Recommendations: Subacute rehab Equipment Recommended: Defer to facility Subjective Thank you for helping me. Participants in Care Family/Caregiver Present: Yes Family/Caregiver: Other (Specify) (brother and sister) Presentation Oxygen Therapy: None (Room air) Lines and Tubes: Intravenous access, [place] Female External Urinary Catheter 11/06/24 1900 (Active) Feeding Tube Gastric 10 Fr. Left nare (Active) Peripheral IV 10/30/24 Left Antecubital (Active) Pre-Session: Supine, Head of bed elevated, Lines intact Pre-Session Comments: RN agreeable to therapy session. Post-Session: RN notified, Call light in reach, Lines intact (bed in chair position) Post-Session Comments: Positioned Pt for comfort. Family present at bedside. Precautions Medical Precautions: Fall precautions, Sinus Objective Pain Pt reporting pain upon returning to supine position- unable to localize or rate. Pt reporting no pain at start or end of session. Delirium Screening RASS: Alert and calm Confusion Assessment Method-ICU (CAM-ICU/PCAM-ICU) Feature 1: Acute Onset or Fluctuating Course: Negative Feature 2: Inattention: Negative Feature 3: Altered Level of Consciousness: Negative Feature 4: Disorganized Thinking: Negative Overall CAM-ICU/PCAM-ICU: Negative Cognition Cognition Cognitive Skill Development Intervention: Mildly delayed processing. Overall Cognitive Status: Within Functional Limits Arousal/Alertness: Appropriate responses to stimuli Mood/Behavior: Alert Orientation Level: Oriented to place, Oriented to person Orientation Level Comments: Oriented to city and family, but otherwise not tested. Single Step Commands: With increased time, With repetition Multi-Step Commands: With increased time, With repetition Method of Communication: Verbal (Low vocal quality) Safety Judgment: Decreased awareness of need for assistance Awareness of Errors: Assistance required to identify errors made Deficit Awareness: Decreased awareness of deficits Attention Span: Appears intact Self-Care Interventions Self Care/Home Management (ADLs) Time Entry: 39 Self_Care Interventions: Pt agreeable to completed self-care tasks with OT this date. Pt required max A and mod A to transition to edge of bed. Cues required to initiate and sequence due to mildly delayed processing, and physical assist required due to generalized weakness. Upon sitting up, pt required min A to maintain midline position due to anterior shift of hips at edge of bed and right lateral lean. Pt completed 3 sit to stands from edge of bed to increase standing tolerance needed for LB dressing tasks and in prep for funtional BSC transfers. Pt able to reach 90% upright on all 3 standswith max A via HHAx2. Pt noted to have soiled brief, and was unaware. Pt required total A to doff soiled brief, don new brief, and complete marley-hygiene tasks during standing trials. Rest breaks required between trials due to fatigue. Pt unable to participate in hygiene tasks and LB dressing task due to impaired standing balance, requiring b/l UE support to maintain static stance. Pt unable to weight shift laterally, limiting ability to take steps to recliner. Pt returned to supine with max A and required max A to scoot to head of bed. Pt placed in bed to chair position to optomize positioning for grooming tasks. Pt required s/u to complete oral hygiene, hand hygiene, and wash her face. Pt required max A for washing left arm due to dried blood and impaired activity tolerance. Pt more alert and interactive with session progression and agreeable to remaining in upright position in bed at session closing. Pt/family educated on role of OT, POC, and discharge recommendations. Pt and familyreceptive to all education and expressing gratitude for therapy services. Lower Extremity Dressing Sock Level of Assistance: Dependent LE Dressing Where Assessed: Edge of bed LE Dressing Interventions: Due to impaired sitting balance and poor activity tolerance. Assessment Pt participated in OT session with a focus on ADL retraining. Pt tolerated session with fair(-) energy for task, becoming fatigued quickly with short bouts of self-care tasks. Pt continues to requiresignificant physical and verbal assistance for all functional transfers and self-care tasks. Pt is at an increased risk of falling secondary to deconditioning, history of falls, and impaired standingbalance. Pt continues to benefit from skilled OT services to maximize independence/safety with ADLsand functional mobility. Although the patient is medically stable for discharge, they are currently not safe to return home,even with home health services, due to the following OT- related functional limitations and safety concerns: The patient demonstrates poor static and dynamic balance, resulting in frequent near-falls or actual falls during ADLs, transfers, and mobility tasks. Supervision or hands-on assistance is required for essential self-care tasks (e.g., bathing, toileting, dressing), which exceeds the level of support typically available through intermittent home health visits. The patient lacks the cognitive and/or physical capacity to safely compensate for these deficits without continuous skilled oversight and environmental control, which is not feasible in the home setting. The home environment lacks the necessary adaptive equipment or 24/7 supervision, placing the patient at high risk for injury. The patient requires daily, skilled OT interventions to restore ADL independence, improve safety awareness, and establish safe routines -- services that cannot be delivered at the intensity or frequency through home health. Given these factors, subacute rehabilitation is the most appropriate discharge option to ensure patient safety, prevent further injury or readmission, and support functional recovery through comprehensive, daily OT services in a structured environment. OT Recommendations Discharge Destination: Subacute rehab Discharge Equipment: Defer to facility Plan Continue OT POC. Goals OT GOAL DETAILS Goal Established Date Time Frame Goal Status OT Goal 1: pt will consistently be oriented x 4 x 3 tx sessions 10/31/24 2 weeks OT Goal 2: pt will consistently follow 1 step commands with 100% accuracy 10/31/24 2 weeks OT Goal 3: pt will complete bed to commode transfers with mod assist x 2 utilizing AAD PRN 10/31/24 2 weeks OT Goal 4: pt will complete simple grooming tasks with mod assist x 1 utilizing compensatory techniques as needed while seated EOB 10/31/24 2 weeks OT Goal 5: pt will participate in UE HEP to increase overall strength for increase independence with self cares and mobility 10/31/24 2 weeks Written by Georgette Bhatia on 11/07/24 at 2:43 PM. * Progress Notes - Carol Ann Dai - 11/07/2024 12:15 PM EDT Physical Medicine & Rehabilitation Inpatient Consult Followup cc: Fall Subjective: Patient seen and examined at bedside, sister present. Current Medications: Continuous: Current Continuous Medications[1] Scheduled: Current Scheduled Medications[2] PRN: Current PRN Medications[3] Review of Information: Labs: Lab Results Component Value Date WBC 7.42 11/04/2024 WBC 9.52 11/03/2024 WBC 7.77 11/03/2024 HGB 7.9 (L) 11/04/2024 HGB 8.8 (L) 11/03/2024 HGB 7.6 (L) 11/03/2024 HCT 25.5 (L) 11/04/2024 MCV 88 11/04/2024 PLT 229 11/04/2024 PLT 255 11/03/2024 PLT 193 11/03/2024 Lab Results Component Value Date NA 143 11/04/2024 NA 142 11/03/2024 NA 142 11/01/2024 K 3.9 11/04/2024 K 4.1 11/03/2024 K 4.4 11/01/2024 CL 108 (H) 11/04/2024 CL 109 (H) 11/03/2024 CL 109 (H) 11/01/2024 BUN 21 11/04/2024 BUN 22 11/03/2024 BUN 14 11/01/2024 CREATININE 0.73 11/04/2024 CREATININE 0.78 11/03/2024 CREATININE 0.78 11/01/2024 CALCIUM 7.9 (L) 11/04/2024 CALCIUM 7.9 (L) 11/03/2024 CALCIUM 8.7 (L) 11/01/2024 GLUCOSE 114 (H) 11/04/2024 GLUCOSE 163 (H) 11/03/2024 GLUCOSE 113 (H) 11/01/2024 GLUCOSE 133 (H) 10/31/2024 GLUCOSE 145 (H) 10/30/2024 Lab Results Component Value Date ALT 46 (H) 11/03/2024 ALT 84 (H) 11/01/2024 ALT 24 07/19/2024 AST 32 11/03/2024 AST 72 (H) 11/01/2024 AST 27 07/19/2024 ALKPHOS 154 (H) 11/03/2024 ALKPHOS 194 (H) 11/01/2024 ALKPHOS 105 05/22/2023 BILITOT 0.3 11/03/2024 BILITOT 0.7 11/01/2024 BILITOT 0.3 07/19/2024 Lab Results Component Value Date HGBA1C 5.7 (H) 07/20/2024 Physical Examination: Visit Vitals BP (!) 150/79 Pulse 80 Temp 36.8 ??C (98.3 ??F) (Axillary) Ht 1.6 m (5' 2.99 ) Wt 62.1 kg (136 lb 14.5 oz) SpO2 96% BMI 24.26 kg/m?? Gen: NAD, reclining in bed Eyes: no scleral icterus in L eye, R eye shut with edema Neck: supple, no tracheostomy ENT: nares patent, mucous membranes moist CV: regular rate, no BLE edema Resp: nonlabored breathing, no wheezing GI: abd soft, NTTP : che present Skin: warm, dry Heme/lymph/immune: no bruising, no lymphadenopathy Psychiatric: good judgement, good insight MSK: -RUE 3/5 - LUE 5/5, without increased tone - RLE 2/5 - LLE 5/5, tone present in ankle, improved from previous exam Neurological: awake and alert, participating in conversation, speech fluent CN II-XII intact Follow up appointments: Future Appointments Date Time Provider Department Center 11/21/2024 12:45 PM Navya Woody MD [facility] Mobility Orders Mobility Protocol: Ortho/Trauma/Spine Mobility Guidelines Spinal Precautions: No cranial, cervical or thoracolumbar spinal precautions necessary Extremity Precautions: No Extremity Precautions Other mobility precautions: Other precautions Other mobility precautions: Other Other: Keep HOB 30 Degrees, OK to Reverse Trendelenburg. ASSESSMENT/PLAN: [place] Mata is a 64 y.o. female w/PMH of CVA (R sided deficits), HTN, HLP, CAD, and hypothyroidism who presented to on 10/30/2024 (LOS: 8d) from OSH after a fall. Injuries after the fall include IVH, SAH, R tripod fx with non- displaced ZMG, R globe hematoma s/p lateral canthotomy at OSH. Fall, unknown mechanism (sister found her immediately after face down) - IVH (Plavix was reversed with DDAVP) repeat CTH showed enlarged IVH, 1 unit of PLT administered - Spasticity -- increased tone in RLE. Was started on Dantrolene 25mg BID, experienced nausea. D/C - Neurogenic bladder, che placed - R tripod with non-displaced zygomatic arch and comminuted R orbital fx S/p R zygomatic arch and orbital floor repair (11/01) - Dysphagia - MBS performed, recommended easy to chew foods - functional decline - gait impairment - ADL impairment - cognitive impairment - HTN, History of CVA with R sided hemiparesis with acute onset spasticity - Hypothyroidism Recommendations: Discontinue Dantrolene; although spasticity is improved on medication, onset of nausea correlates with dantrolene initiation. Nausea is impairing her ability to eat. Thank you for allowing us to participate in the care of your patient. We will continue to follow. Please page [phone] with any questions, or resident on-call if after hours or on weekends. Carol Ann Dai Physical Medicine & Rehabilitation [1] [2] acetaminophen, 1,000 mg, Oral, q6h BACILIO amLODIPine, 5 mg, Oral, Daily amoxicillin-clavulanate, 875 mg, Oral, q12h atorvastatin, 40 mg, Oral, Nightly barium sulfate, 120 mL, Oral, Once in imaging barium sulfate, 90 mL, Oral, Once in imaging dantrolene, 25 mg, Oral, BID doxycycline, 100 mg, Oral, BID enoxaparin, 30 mg, Subcutaneous, BID erythromycin, 1 Application, Both Eyes, q8h BACILIO FLUoxetine, 20 mg, Oral, Daily ipratropium-albuterol, 3 mL, Nebulization, q6h RT levothyroxine, 75 mcg, Oral, Daily before breakfast mirtazapine, 15 mg, Oral, Nightly mupirocin, 1 Application, Each Nostril, BID polyethylene glycol, 17 g, Oral, BID QUEtiapine, 50 mg, Oral, Nightly senna-docusate, 2 tablet, Oral, BID tamsulosin, 0.4 mg, Oral, Daily with dinner [3] guaiFENesin, 200 mg, Oral, q4h PRN hydrALAZINE, 10 mg, Intravenous, q4h PRN hydrOXYzine pamoate, 25 mg, Oral, q8h PRN ondansetron ODT, 4 mg, Oral, q6h PRN OR ondansetron, 4 mg, Intravenous, q6h PRN oxyCODONE, 5 mg, Oral, q4h PRN Cosigned by Benito Stiles DO at 11/07/2024 6:28 PM EDT Associated attestation - Benito Stiles DO - 11/07/2024 6:28 PM EDT I saw and evaluated the patient with the medical/DIGITAL CONTROLS TECHNICAL OFFICER/PA student. I discussed the case with the medical/DIGITAL CONTROLS TECHNICAL OFFICER/PA student and agree with the findings and plan as documented. I personally performed the Examand Medical Decision Making. Physical exam: right ankle MAS 2/4, right knee MAS 1/4 Assessment/Plan: - agree with discontinuing dantrolene as it may be contributing to her nausea and the benefit of her improved spasticity is likely outweighed by her persistent nausea * Progress Notes - Rani Dodson RN - 11/07/2024 10:58 AM EDT Case Management Adult Progress Note [place] Mata 64 y.o. female CSN: [id number] Admission: 10/30/2024 2:57 AM Primary Problem: Fall Anticipated Discharge Date: 11/10/24 Cyclic feeds DC but DHT remains in place. Pt was [facility] accepted [facility] but [facility] wasgiven away since pt was not medically ready. Jayce with [facility] will let CM know when the next bed is available after 2 PM meeting today. Pt needs updated therapy notes. Rani Dodson RN * Care Plan - Sindi Porter RN - 11/06/2024 11:44 PM EDT Problem: Adult Inpatient Plan of Care Goal: Plan of Care Review Outcome: Ongoing, Progressing Flowsheets (Taken 11/06/2024 2342) Progress: no change Plan of Care Reviewed With: patient Goal: Patient-Specific Goal (Individualized) Outcome: Ongoing, Progressing Flowsheets (Taken 11/06/20241999) Patient/Family-Specific Goals (Include Timeframe): pt will remain free from injury during shift Individualized Care Needs: safety Anxieties, Fears or Concerns: LUANN Goal: Absence of Hospital-Acquired Illness or Injury Outcome: Ongoing, Progressing Intervention: Identify and Manage Fall Risk Flowsheets (Taken 11/06/20241999) Safety Promotion/Fall Prevention: activity supervised assistive device/personal items within reach clutter-free environment maintained fall prevention program maintained lighting adjusted Intervention: Prevent Skin Injury Flowsheets Taken 11/06/2024 2200 Body Position: turned left Taken 11/06/20241999 Skin Protection: incontinence pads utilized transparent dressing maintained silicone foam dressing in place Intervention: Prevent and Manage VTE (Venous Thromboembolism) Risk Flowsheets (Taken 11/06/20241999) VTE Prevention/Management: bilateral SCDs (sequential compression devices) off medication Intervention: Prevent Infection Flowsheets (Taken 11/06/20241999) Infection Prevention: environmental surveillance performed rest/sleep promoted Goal: Optimal Comfort and Wellbeing Outcome: Ongoing, Progressing Intervention: Monitor Pain and Promote Comfort Flowsheets (Taken 11/06/20241999) Pain Management Interventions: pillow support provided position adjusted Intervention: Provide Person-Centered Care Flowsheets (Taken 11/06/20241999) Trust Relationship/Rapport: care explained choices provided thoughts/feelings acknowledged Problem: Skin Injury Risk Increased Goal: Skin Health and Integrity Outcome: Ongoing, Progressing Intervention: Optimize Skin Protection Flowsheets Taken 11/06/20242199 Activity Management: activity adjusted per tolerance Head of Bed (HOB) Positioning: HOB at 30 degrees Taken 11/06/20241999 Pressure Reduction Techniques: pressure points protected weight shift assistance provided Pressure Reduction Devices: positioning supports utilized pressure-redistributing mattress utilized Skin Protection: incontinence pads utilized transparent dressing maintained silicone foam dressing in place Intervention: Promote and Optimize Oral Intake Flowsheets (Taken 11/06/20241999) Oral Nutrition Promotion: physical activity promoted rest periods promoted Nutrition Interventions: food preferences provided Problem: Fall Injury Risk Goal: Absence of Fall and Fall-Related Injury Outcome: Ongoing, Progressing Intervention: Identify and Manage Contributors Flowsheets (Taken 11/06/20241999) Medication Review/Management: medications reviewed Intervention: Promote Injury-Free Environment Flowsheets (Taken 11/06/20241999) Safety Promotion/Fall Prevention: activity supervised assistive device/personal items within reach clutter-free environment maintained fall prevention program maintained lighting adjusted Problem: Functional Deficit Goal: Improved Balance and Postural Control Outcome: Ongoing, Progressing Intervention: Optimize Balance and Safe Activity Flowsheets Taken 11/06/20242199 Activity Management: activity adjusted per tolerance Taken 11/06/20241999 Safety Promotion/Fall Prevention: activity supervised assistive device/personal items within reach clutter-free environment maintained fall prevention program maintained lighting adjusted Goal: Optimal Cognitive Function Outcome: Ongoing, Progressing Intervention: Optimize Cognitive Function Flowsheets (Taken 11/06/20241999) Sensory Stimulation Regulation: lighting decreased care clustered quiet environment promoted Goal: Optimal Coordination Outcome: Ongoing, Progressing Goal: Improved Muscle Strength Outcome: Ongoing, Progressing Intervention: Optimize Muscle Strength Flowsheets (Taken 11/06/20242199) Activity Management: activity adjusted per tolerance Activity Assistance Provided: assistance, 2 people Goal: Improved Muscle Tone Outcome: Ongoing, Progressing Goal: Optimal Range of Motion Outcome: Ongoing, Progressing Intervention: Maintain Functional Joint Range Position Flowsheets (Taken 11/06/20241999) Range of Motion: active ROM (range of motion) encouraged Positioning/Transfer Devices: pillows repositioning sheet applied Goal: Compensation for Sensory Deficit Outcome: Ongoing, Progressing Intervention: Optimize Sensory Function Flowsheets (Taken 11/06/20241999) Pressure Reduction Techniques: pressure points protected weight shift assistance provided Sensation Impairment Protection: cues provided for safety Skin Protection: incontinence pads utilized transparent dressing maintained silicone foam dressing in place Problem: Infection Goal: Absence of Infection Signs and Symptoms Outcome: Ongoing, Progressing Intervention: Prevent or Manage Infection Flowsheets Taken 11/06/20242199 Isolation Precautions: precautions maintained Taken 11/06/20241999 Infection Management: aseptic technique maintained Problem: Pain Acute Goal: Optimal Pain Control and Function Outcome: Ongoing, Progressing Intervention: Optimize Psychosocial Wellbeing Flowsheets (Taken 11/06/20241999) Supportive Measures: relaxation techniques promoted positive reinforcement provided Diversional Activities: television Intervention: Develop Pain Management Plan Flowsheets (Taken 11/06/20241999) Pain Management Interventions: pillow support provided position adjusted Intervention: Prevent or Manage Pain Flowsheets (Taken 11/06/20241999) Sensory Stimulation Regulation: lighting decreased care clustered quiet environment promoted Bowel Elimination Promotion: adequate fluid intake promoted Sleep/Rest Enhancement: awakenings minimized room darkened consistent schedule promoted Medication Review/Management: medications reviewed Problem: Enteral Nutrition Goal: Absence of Aspiration Signs and Symptoms Outcome: Ongoing, Progressing Intervention: Minimize Aspiration Risk Flowsheets (Taken 11/06/20242199) Head of Bed (HOB) Positioning: HOB at 30 degrees Goal: Feeding Tolerance Outcome: Ongoing, Progressing Intervention: Prevent and Manage Feeding Intolerance Flowsheets (Taken 11/06/20241999) Nutrition Support Management: tube feeding initiated * Assessment & Plan Note - Jenny Miller APRN - 11/06/2024 11:27 AM EDT Associated Problem(s): Fracture of right orbital floor 11/01: OR with ENT for right orbital floor fracture repair ENT following ; Augmentin x7 days (11/11); Sinus precautions * Assessment & Plan Note - Jenny Miller APRN - 11/06/2024 11:27 AM EDT Associated Problem(s): Zygomatic arch fracture (CMS/HCC) 11/01: OR with ENT for ORIF right Zygomatic arch fracture * Assessment & Plan Note - Jenny Miller APRN - 11/06/2024 11:27 AM EDT Associated Problem(s): Injury of globe of eye, right, initial encounter S/p canthotomy at OSH Optho following- will reach out for recheck of vision when patient consistently able to participatein exam * Assessment & Plan Note - Jenny Miller APRN - 11/06/2024 11:27 AM EDT Associated Problem(s): Fall Admit SGT ICU [x] Tertiary 10/31 * Assessment & Plan Note - Jenny Miller APRN - 11/06/2024 11:27 AM EDT Associated Problem(s): TBI (traumatic brain injury) SAH, IVH NSGY consult DDAVP given at OSH PMR consult for Thursday * Assessment & Plan Note - Jenny Miller APRN - 11/06/2024 11:27 AM EDT Associated Problem(s): Carotid stenosis Coat Padder and mca stenosis Resume home meds as appropriate * Assessment & Plan Note - Jenny Miller APRN - 11/06/2024 11:27 AM EDT Associated Problem(s): ABLA (acute blood loss anemia) Recheck hemogram and transfuse as necessary * Assessment & Plan Note - Jenny Miller APRN - 11/06/2024 11:27 AM EDT Associated Problem(s): Hyperglycemia Likely reactive to trauma, recheck and treat as necessary Did not require insulin while in ICU * Assessment & Plan Note - Jenny Miller APRN - 11/06/2024 11:27 AM EDT Associated Problem(s): Acute respiratory failure with hypoxia Extubated 10/31/24 Placed on HFNC on 11/01/24 2L NC * Assessment & Plan Note - Jenny Miller APRN - 11/06/2024 11:27 AM EDT Associated Problem(s): Lactic acidosis IVF resuscitation and recheck as necessary * Assessment & Plan Note - Jenny Miller APRN - 11/06/2024 11:27 AM EDT Associated Problem(s): Electrolyte abnormality Hypomagnesemia (POA) Hypocalcemia (POA) Replace/treat and recheck as necessary * Assessment & Plan Note - Jenny Miller APRN - 11/06/2024 11:27 AM EDT Associated Problem(s): MELISSA (acute kidney injury) Avoid nephrotoxic agents as able and renally dose medications IVF resuscitation as needed * Assessment & Plan Note - Jenny Miller APRN - 11/06/2024 11:27 AM EDT Associated Problem(s): Hypothyroidism Resume home meds as appropriate * Assessment & Plan Note - Jenny Miller APRN - 11/06/2024 11:27 AM EDT Associated Problem(s): Hypertension Resume home meds as appropriate * Assessment & Plan Note - Jenny Miller APRN - 11/06/2024 11:27 AM EDT Associated Problem(s): Hyperlipidemia Resume home meds as appropriate * Assessment & Plan Note - Jenny Miller APRN - 11/06/2024 11:27 AM EDT Associated Problem(s): CVA (cerebral vascular accident) ([facility]) PMH CVA and R sided deficits Resume home meds as appropriate * Assessment & Plan Note - Jenny Miller APRN - 11/06/2024 11:27 AM EDT Associated Problem(s): Overweight (BMI 25.0-29.9) Could complicate hospitalization and mobility * Assessment & Plan Note - Jenny Miller APRN - 11/06/2024 11:27 AM EDT Associated Problem(s): Debility PT/OT following Recommend ERIKA Massimo PM&R consult for 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: recommend [id number] BID * Progress Notes - Jenny Miller APRN - 11/06/2024 11:26 AM EDT 11/06/24 [place] Mata HPI [place] Mata is a 64 y/o F with PMH CVA, R sided defecits on ASA/Plavix, HTN, HLP, CAD, and hypothyroidism. Presents s/p fall. Reversed with DDAVP. Injuries include: tSAH, IVH, R tripod fx with non-displaced ZMG, R globe hematoma s/p lateral canthotomy at OSH 11/01: s/p ORIF R zygomatic arch fx and R orbital wall fx repair Interval: [place] resting in bed. Confused but alert to person. Picking at scabs. MRSA on culture swab- starteddoxy. Cont Augmentin per ENT recs for R eye through 11/11. Patient still with poor oral intake. Continue TF w/DHT. Remove che-void trial. Encouraged mobility and nutrition. RN to obtain activity apron to help redirect picking behavior. Discussed plan of care with patient/family, attending, CM, RN,consulting teams. No further concerns at this time. Edited by: Jenny Miller APRN at 11/06/2024 1117 Relevant review of systems was obtained as able and is negative unless stated above in HPI. Vital signs: Vitals: 11/06/24 0951 BP: Pulse: Resp: 18 Temp: SpO2: Physical Exam HENT: Head: Normocephalic. Comments: Marley-orbital swelling of right eye S/p lateral canthotomy site of right eye Right Ear: External ear normal. Left Ear: External ear normal. Nose: Nose normal. Comments: DHT in place Mouth/Throat: Mouth: Mucous membranes are moist. Pharynx: Oropharynx is clear. Eyes: Comments: L pupil 3mm reactive to light, EOM intact Cardiovascular: Rate and Rhythm: Normal rate and regular rhythm. Pulses: Normal pulses. Pulmonary: Effort: Pulmonary effort is normal. Comments: 2L NC Abdominal: General: Abdomen is flat. Palpations: Abdomen is soft. Musculoskeletal: Cervical back: Normal range of motion. Right lower leg: No edema. Left lower leg: No edema. Skin: General: Skin is warm. Capillary Refill: Capillary refill takes less than 2 seconds. Neurological: General: No focal deficit present. Mental Status: She is oriented to person, place, and time. GCS: GCS eye subscore is 4. GCS verbal subscore is 5. GCS motor subscore is 6. Motor: Weakness (R side from previous CVA history) present. Intake/Output Summary (Last 24 hours) at 11/06/2024 1128 Last data filed at 11/06/2024 0641 Gross per 24 hour Intake 912 ml Output 1300 ml Net -388 ml Lines/Drains/Tubes: Patient Lines/Drains/Airways Status Active Airway None Output by Drain (mL) 11/04/24 0700 - 11/04/24 1859 11/04/24 1900 - 11/05/24 0659 11/05/24 0700 - 11/05/24 1859 11/05/24 1900 - 11/06/24 0659 11/06/24 0700 - 11/06/24 1128 Requested LDAs do not have output data documented. Labs in last 18 hours: CBC WBC ?? Hb ?? Plt ?? Hct ?? ANC ?? INR ??, PTT ??, Anti-Xa ?? MCV ?? BMP Na ?? Cl ?? BUN ?? Glu ?? K ?? Co2 ?? Cr ?? Ca ?? iCa ?? Mg ??, Phos ?? Lactate ?? LFT AST ?? AlkPhos ?? T Prot ?? ALK ?? Bili ?? Alb ?? D.Bili ?? Lab Trends: H/H Results from last 7 days Lab Units 11/04/24 0007 11/03/24 1513 11/03/24 0208 HEMOGLOBIN g/dL 7.9* 8.8* 7.6* HEMATOCRIT % 25.5* 28.3* 24.4* INR Cr Results from last 7 days Lab Units 11/04/24 0007 11/03/24 0208 11/01/24 1809 CREATININE mg/dL 0.73 0.78 0.78 Medications reviewed. Vital signs reviewed. Labs reviewed. Radiography reviewed. Assessment and Plan: Assessment & Plan Zygomatic arch fracture (CMS/HCC) Present on Admission: Yes 11/01: OR with ENT for ORIF right Zygomatic arch fracture Injury of globe of eye, right, initial encounter Present on Admission: Yes S/p canthotomy at OSH Optho following- will reach out for recheck of vision when patient consistently able to participatein exam Fall Present on Admission: Yes Admit SGT ICU [x] Tertiary 10/31 TBI (traumatic brain injury) (CMS/HCC) Present on Admission: Yes SAH, IVH NSGY consult DDAVP given at OSH PMR consult for Thursday Carotid stenosis Present on Admission: Yes Coat Padder and mca stenosis Resume home meds as appropriate ABLA (acute blood loss anemia) Present on Admission: Yes Recheck hemogram and transfuse as necessary Hyperglycemia Present on Admission: Yes Likely reactive to trauma, recheck and treat as necessary Did not require insulin while in ICU Acute respiratory failure with hypoxia Present on Admission: Yes Extubated 10/31/24 Placed on HFNC on 11/01/24 2L NC Lactic acidosis Present on Admission: Yes IVF resuscitation and recheck as necessary Electrolyte abnormality Present on Admission: Yes Hypomagnesemia (POA) Hypocalcemia (POA) Replace/treat and recheck as necessary MELISSA (acute kidney injury) (CMS/HCC) Present on Admission: Yes Avoid nephrotoxic agents as able and renally dose medications IVF resuscitation as needed Hypothyroidism Present on Admission: Yes Resume home meds as appropriate Hypertension Present on Admission: Yes Resume home meds as appropriate Hyperlipidemia Present on Admission: Yes Resume home meds as appropriate CVA (cerebral vascular accident) (CMS/HCC) Present on Admission: Yes PMH CVA and R sided deficits Resume home meds as appropriate Overweight (BMI 25.0-29.9) Present on Admission: Yes Could complicate hospitalization and mobility Debility Present on Admission: Yes PT/OT following Recommend ERIKA Possible PM&R consult for 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: recommend [id number] BID Fracture of right orbital floor (CMS/HCC) Present on Admission: Unknown 11/01: OR with ENT for right orbital floor fracture repair ENT following ; Augmentin x7 days (11/11); Sinus precautions Malnutrition (CMS/HCC) Present on Admission: Unknown MRSA (methicillin resistant staph aureus) culture positive Present on Admission: Not Applicable Plan: -MMPC - Augmentin through 11/11 -Doxycycline for MRSA coverage on wound cx -DHT w/TF; d/c once tolerating 50% meals-may need GOC discussion -Pulm Hygiene -Ophtho exam limited by patient status-at this time NTD -ENT following -Bowel reg -Hold AC/AP through 11/14 -Sinus precautions -Remove che; void trial -Activity apron -Delirium precautions - PT/OT Discharge dispo: ERIKA ([place]) Edited by: Jenny Miller APRN at 11/06/2024 1128 Jenny Miller APRN * Care Plan - Pietro Valdovinos RN - 11/06/2024 2:39 AM EDT Problem: Adult Inpatient Plan of Care Goal: Plan of Care Review Outcome: Ongoing, Progressing Flowsheets (Taken 11/06/2024 0234) Progress: improving Plan of Care Reviewed With: patient Problem: Adult Inpatient Plan of Care Goal: Patient-Specific Goal (Individualized) Outcome: Ongoing, Progressing Flowsheets (Taken 11/05/20241999) Patient/Family-Specific Goals (Include Timeframe): patient will have a tolerable pain level throughout shift Individualized Care Needs: pain control Anxieties, Fears or Concerns: pain Problem: Adult Inpatient Plan of Care Goal: Absence of Hospital-Acquired Illness or Injury Outcome: Ongoing, Progressing Intervention: Prevent Infection Flowsheets (Taken 11/06/2024 0234) Infection Prevention: equipment surfaces disinfected hand hygiene promoted personal protective equipment utilized rest/sleep promoted Problem: Adult Inpatient Plan of Care Goal: Optimal Comfort and Wellbeing Outcome: Ongoing, Progressing Intervention: Provide Person-Centered Care Flowsheets (Taken 11/06/2024233) Trust Relationship/Rapport: care explained choices provided emotional support provided empathic listening provided questions answered thoughts/feelings acknowledged questions encouraged Problem: Skin Injury Risk Increased Goal: Skin Health and Integrity Outcome: Ongoing, Progressing Intervention: Promote and Optimize Oral Intake Flowsheets (Taken 11/06/2024233) Oral Nutrition Promotion: physical activity promoted rest periods promoted social interaction promoted Nutrition Interventions: frequent small meals provided meal set-up provided food preferences provided Problem: Fall Injury Risk Goal: Absence of Fall and Fall-Related Injury Outcome: Ongoing, Progressing Intervention: Promote Injury-Free Environment Flowsheets (Taken 11/06/2024233) Safety Promotion/Fall Prevention: activity supervised clutter-free environment maintained fall prevention program maintained lighting adjusted mobility aid in reach nonskid shoes/slippers when out of bed assistive device/personal items within reach safety round/check completed Problem: Infection Goal: Absence of Infection Signs and Symptoms Outcome: Ongoing, Progressing Intervention: Prevent or Manage Infection Flowsheets (Taken 11/06/2024233) Infection Management: aseptic technique maintained Fever Reduction/Comfort Measures: lightweight clothing lightweight bedding fluid intake increased Isolation Precautions: protective precautions maintained Problem: Pain Acute Goal: Optimal Pain Control and Function Outcome: Ongoing, Progressing Intervention: Prevent or Manage Pain Flowsheets (Taken 11/06/2024233) Sensory Stimulation Regulation: care clustered lighting decreased television on Bowel Elimination Promotion: adequate fluid intake promoted privacy promoted diet adjusted Sleep/Rest Enhancement: awakenings minimized consistent schedule promoted noise level reduced regular sleep/rest pattern promoted Medication Review/Management: medications reviewed Problem: Enteral Nutrition Goal: Absence of Aspiration Signs and Symptoms Outcome: Ongoing, Progressing Intervention: Minimize Aspiration Risk Flowsheets (Taken 11/06/2024233) Enteral Feeding Safety: placement checked Oral Care: lip lubricant applied mouth swabbed mouth suctioned Head of Bed (HOB) Positioning: HOB at 30-45 degrees * Significant Event - Jovanni Lima MD - 11/05/2024 6:32 PM EDT ENT again requesting Ophthalmology evaluation for pupillary changes noted in the OR 11/03/24. On re-assessment 11/05/24, patient still unable to fully participate in exam. Pupils are equal and reactive. Still unable to accurately assess vision and EOMs 2/2 mental status. Patient does not follow commands appropriately. IOP 12/17. Patient dilated, fundus appears grossly normal. Enlarged cup:disc ratio, some peripapillary atrophy, mild venous dilation and tortuosity, but no infarction or disc edema both eyes (OU). * Progress Notes - Vidal Ivey MD - 11/05/2024 11:34 AM EDT Otolaryngology-Head and Neck Surgery Progress Note Hospital Day: 7 Subjective Patient continues to have waxing and waning delirium but able to cooperate a little this AM. She has some improvement of right eye proptosis. Had some purulence this Am from right eye. Objective Vitals: Temp: [36.7 ??C (98 ??F)-37.7 ??C (99.8 ??F)] 36.7 ??C (98 ??F) Heart Rate: [71-93] 85 Resp: [14-22] 16 BP: (102-165)/(55-71) 124/68 Temp (24hrs), Av ??C (98.6 ??F), Min:36.7 ??C (98 ??F), Max:37.7 ??C (99.8 ??F) Wt Readings from Last 3 Encounters: 10/30/24 67.6 kg (149 lb 0.5 oz) 06/19/23 58.9 kg (129 lb 13.6 oz) 05/22/23 59.1 kg (130 lb 3.2 oz) Physical exam: GEN: no apparent distress, well appearing female, confused but directable HEAD: Normocephalic, atraumatic EYES: Right conjunctival injection and periorbital ecchymosis. Post-op edema. Incision closed intact. EOM restricted in upward gaze on right eye, pupil reactive, no blink reflex. +monocular diplopia on right eye. EARS: Pinnae without laceration or deformity, no drainage NOSE: Nares patent, no drainage MOUTH: Mucous membranes pink and moist, tongue with full ROM NECK: Soft, supple, no palpable masses RESP: Symmetric chest rise, unlabored breathing CV: appears well perfused, no cyanosis MSK/EXT: no gross deformities, appropriate ROM NEURO: alert and oriented, no focal deficits PSYCH: Appropriate mood and affect Edited by: Radha [place] at 11/05/2024 1011 I/O: Intake/Output 11/04/24 0601 - 11/05/24 0600 11/05/24 0601 - 11/06/24 0600 Intake P.O. -- 120 NG/GT 240 715 Total Intake 240 835 Output Urine 2550 -- Total Output 2550 -- Net I/O -2310 835 Medications: Current Scheduled Medications[1] Current Continuous Medications[2] PRN Meds: Current PRN Medications[3] Results: WBC ?? Hgb ?? PLT ?? HCT ?? INR ?? PTT ?? antiXa ?? Na ?? Cl ?? BUN ?? Gluc ?? K ?? CO2 ?? Creat ?? Ca ?? iCa ?? Mg ?? Phos ?? pH ?? pCO2 ?? pO2 ?? SPO2 ?? FIO2 ?? HCO3 ?? BE ?? Lactate ?? Imaging Assessment/Plan [place] Mata is a 64 y.o. female with PMHx significant for CVA, R hemiparesis, carotid stent on Plavix and HTN who presents to ED intubated and sedated following unwitnessed fall. She was found to have right tripod fracture with non-displaced zygomatic arch and comminuted right orbital floor fracture. She underwent open reduction internal fixation of right ZMC and orbital floor fractures on 11/01. #S/p Right ZMC and orbital floor repair 11/01 - Recommend Ophtho reevaluation of vision loss/changes in addition to entrapment concern since postop - Started on Augmentin for hardware in place after surgery - Erythromycin optho ointment TID - Sinus Precautions for 2 weeks total - Mupirocin ointment to nostirl #Facial laceration - Use half-strength hydrogen peroxide on a Q-tip to clean the wound/sutures of crusting. Pat dry, then use thin layer of bacitracin twice daily on wound for 5 days. After 5 days, stop the antibiotic ointment, and use thin layer of Vaseline or Aquaphor until fully healed. - When showering, do not have wound in direct spray; let the soapy water run over the wound and do not scrub. Pat dry. May fully submerge in 3 days. -Once completely healed, use sunblock or physical protection (e.g., broad- brimmed hat) when out in the sun for 6 months to prevent hyperpigmentation. -Vitamin E or Mederma may be used in 1 month to reduce scarring. Edited by: Vidal Ivey MD at 11/05/2024 0704 Vidal Ivey MD [1] acetaminophen, 1,000 mg, Oral, q6h BACILIO amLODIPine, 5 mg, Oral, Daily amoxicillin-clavulanate, 875 mg, Oral, q12h atorvastatin, 40 mg, Oral, Nightly barium sulfate, 120 mL, Oral, Once in imaging barium sulfate, 90 mL, Oral, Once in imaging dantrolene, 25 mg, Oral, BID enoxaparin, 30 mg, Subcutaneous, BID erythromycin, 1 Application, Both Eyes, q8h BACILIO FLUoxetine, 20 mg, Oral, Daily ipratropium-albuterol, 3 mL, Nebulization, q6h RT levETIRAcetam, 1,000 mg, Oral, BID levothyroxine, 75 mcg, Oral, Daily before breakfast mirtazapine, 15 mg, Oral, Nightly mupirocin, 1 Application, Each Nostril, BID polyethylene glycol, 17 g, Oral, BID QUEtiapine, 50 mg, Oral, Nightly senna-docusate, 2 tablet, Oral, BID tamsulosin, 0.4 mg, Oral, Daily with dinner [2] [3] PRN medications: guaiFENesin, hydrALAZINE, hydrOXYzine pamoate, ondansetron ODT OR ondansetron, oxyCODONE Cosigned by Yobani Benoit MD at 11/07/2024 8:06 AM EDT * Assessment & Plan Note - Jenny Miller APRN - 11/05/2024 10:42 AM EDT Associated Problem(s): Fall Admit SGT ICU [x] Tertiary 10/31 * Assessment & Plan Note - Jenny Miller APRN - 11/05/2024 10:42 AM EDT Associated Problem(s): TBI (traumatic brain injury) SAH, IVH NSGY consult DDAVP given at OSH PMR consult for Thursday * Assessment & Plan Note - Jenny Miller APRN - 11/05/2024 10:42 AM EDT Associated Problem(s): Carotid stenosis Coat Padder and mca stenosis Resume home meds as appropriate * Assessment & Plan Note - Jenny Miller APRN - 11/05/2024 10:42 AM EDT Associated Problem(s): Fracture of right orbital floor 11/01: OR with ENT for right orbital floor fracture repair ENT following * Assessment & Plan Note - Jenny Miller APRN - 11/05/2024 10:42 AM EDT Associated Problem(s): Zygomatic arch fracture (CMS/HCC) 11/01: OR with ENT for ORIF right Zygomatic arch fracture * Assessment & Plan Note - Jenny Miller APRN - 11/05/2024 10:42 AM EDT Associated Problem(s): Injury of globe of eye, right, initial encounter S/p canthotomy at OSH Optho following- will reach out for recheck of vision when patient consistently able to participatein exam * Assessment & Plan Note - Jenny Miller APRN - 11/05/2024 10:42 AM EDT Associated Problem(s): ABLA (acute blood loss anemia) Recheck hemogram and transfuse as necessary * Assessment & Plan Note - Jenny Miller APRN - 11/05/2024 10:42 AM EDT Associated Problem(s): Hyperglycemia Likely reactive to trauma, recheck and treat as necessary Did not require insulin while in ICU * Assessment & Plan Note - Jenny Miller APRN - 11/05/2024 10:42 AM EDT Associated Problem(s): Acute respiratory failure with hypoxia Extubated 10/31/24 Placed on HFNC on 11/01/24 2L NC * Assessment & Plan Note - Jenny Miller APRN - 11/05/2024 10:42 AM EDT Associated Problem(s): Lactic acidosis IVF resuscitation and recheck as necessary * Assessment & Plan Note - Jenny Miller APRN - 11/05/2024 10:42 AM EDT Associated Problem(s): Electrolyte abnormality Hypomagnesemia (POA) Hypocalcemia (POA) Replace/treat and recheck as necessary * Assessment & Plan Note - Jenny Miller APRN - 11/05/2024 10:42 AM EDT Associated Problem(s): MELISSA (acute kidney injury) Avoid nephrotoxic agents as able and renally dose medications IVF resuscitation as needed * Assessment & Plan Note - Jenny Miller APRN - 11/05/2024 10:42 AM EDT Associated Problem(s): Hypothyroidism Resume home meds as appropriate * Assessment & Plan Note - Jenny Miller APRN - 11/05/2024 10:42 AM EDT Associated Problem(s): Hypertension Resume home meds as appropriate * Assessment & Plan Note - Jenny Miller APRN - 11/05/2024 10:42 AM EDT Associated Problem(s): Hyperlipidemia Resume home meds as appropriate * Assessment & Plan Note - Jenny Miller APRN - 11/05/2024 10:42 AM EDT Associated Problem(s): CVA (cerebral vascular accident) ([facility]/HCC) PMH CVA and R sided deficits Resume home meds as appropriate * Assessment & Plan Note - Jenny Miller APRN - 11/05/2024 10:42 AM EDT Associated Problem(s): Overweight (BMI 25.0-29.9) Could complicate hospitalization and mobility * Assessment & Plan Note - Jenny Miller APRN - 11/05/2024 10:42 AM EDT Associated Problem(s): Debility PT/OT following Recommend ERIKA Msasimo PM&R consult for 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: recommend [id number] BID * Progress Notes - Jenny Miller APRN - 11/05/2024 10:41 AM EDT 11/05/24 [place] Mata HPI [place] Mata is a 64 y/o F with PMH CVA, R sided defecits on ASA/Plavix, HTN, HLP, CAD, and hypothyroidism. Presents s/p fall. Reversed with DDAVP. Injuries include: tSAH, IVH, R tripod fx with non-displaced ZMG, R globe hematoma s/p lateral canthotomy at OSH 11/01: s/p ORIF R zygomatic arch fx and R orbital wall fx repair Interval: [place] resting in bed. Confused but alert to person. 2L NC. Continue eye drops her ophtho. ENT &ophtho following. Encourage oral nutrition. Discussed plan of care with patient/family, attending, CM, RN, consulting teams. No further concerns at this time. Edited by: Jenny Miller APRN at 11/05/2024 1041 Relevant review of systems was obtained as able and is negative unless stated above in HPI. Vital signs: Vitals: 11/05/24 0833 BP: Pulse: 78 Resp: Temp: SpO2: 93% Physical Exam HENT: Head: Normocephalic. Comments: Marley-orbital swelling of right eye S/p lateral canthotomy site of right eye Right Ear: External ear normal. Left Ear: External ear normal. Nose: Nose normal. Comments: DHT in place Mouth/Throat: Mouth: Mucous membranes are moist. Pharynx: Oropharynx is clear. Eyes: Comments: L pupil 3mm reactive to light, EOM intact Cardiovascular: Rate and Rhythm: Normal rate and regular rhythm. Pulses: Normal pulses. Pulmonary: Effort: Pulmonary effort is normal. Comments: 2L NC Abdominal: General: Abdomen is flat. Palpations: Abdomen is soft. Musculoskeletal: Cervical back: Normal range of motion. Right lower leg: No edema. Left lower leg: No edema. Skin: General: Skin is warm. Capillary Refill: Capillary refill takes less than 2 seconds. Neurological: General: No focal deficit present. Mental Status: She is oriented to person, place, and time. GCS: GCS eye subscore is 4. GCS verbal subscore is 5. GCS motor subscore is 6. Motor: Weakness (R side from previous CVA history) present. Comments: Obeys commands intermittently Psychiatric: Mood and Affect: Mood is anxious (Anxious about healing). Intake/Output Summary (Last 24 hours) at 11/05/2024 1041 Last data filed at 11/05/2024 0737 Gross per 24 hour Intake 955 ml Output 2050 ml Net -1095 ml Lines/Drains/Tubes: Patient Lines/Drains/Airways Status Active Airway None Output by Drain (mL) 11/03/24 07 - 11/03/24 1859 11/03/24 1900 - 11/04/24 0659 11/04/24 0700 - 11/04/24 1859 11/04/24 1900 - 11/05/24 0659 11/05/24 0700 - 11/05/24 1041 Requested LDAs do not have output data documented. Labs in last 18 hours: CBC WBC ?? Hb ?? Plt ?? Hct ?? ANC ?? INR ??, PTT ??, Anti-Xa ?? MCV ?? BMP Na ?? Cl ?? BUN ?? Glu ?? K ?? Co2 ?? Cr ?? Ca ?? iCa ?? Mg ??, Phos ?? Lactate ?? LFT AST ?? AlkPhos ?? T Prot ?? ALK ?? Bili ?? Alb ?? D.Bili ?? Lab Trends: H/H Results from last 7 days Lab Units 11/04/24 0007 11/03/24 1513 11/03/24 0208 HEMOGLOBIN g/dL 7.9* 8.8* 7.6* HEMATOCRIT % 25.5* 28.3* 24.4* INR Cr Results from last 7 days Lab Units 11/04/24 0007 11/03/24 0208 11/01/24 1809 CREATININE mg/dL 0.73 0.78 0.78 Medications reviewed. Vital signs reviewed. Labs reviewed. Radiography reviewed. Assessment and Plan: Assessment & Plan Zygomatic arch fracture (CMS/HCC) Present on Admission: Yes 11/01: OR with ENT for ORIF right Zygomatic arch fracture Injury of globe of eye, right, initial encounter Present on Admission: Yes S/p canthotomy at OSH Optho following- will reach out for recheck of vision when patient consistently able to participatein exam Fall Present on Admission: Yes Admit SGT ICU [x] Tertiary 10/31 TBI (traumatic brain injury) (CMS/HCC) Present on Admission: Yes SAH, IVH NSGY consult DDAVP given at OSH PMR consult for Thursday Carotid stenosis Present on Admission: Yes Coat Padder and mca stenosis Resume home meds as appropriate ABLA (acute blood loss anemia) Present on Admission: Yes Recheck hemogram and transfuse as necessary Hyperglycemia Present on Admission: Yes Likely reactive to trauma, recheck and treat as necessary Did not require insulin while in ICU Acute respiratory failure with hypoxia Present on Admission: Yes Extubated 10/31/24 Placed on HFNC on 11/01/24 2L NC Lactic acidosis Present on Admission: Yes IVF resuscitation and recheck as necessary Electrolyte abnormality Present on Admission: Yes Hypomagnesemia (POA) Hypocalcemia (POA) Replace/treat and recheck as necessary MELISSA (acute kidney injury) (CMS/HCC) Present on Admission: Yes Avoid nephrotoxic agents as able and renally dose medications IVF resuscitation as needed Hypothyroidism Present on Admission: Yes Resume home meds as appropriate Hypertension Present on Admission: Yes Resume home meds as appropriate Hyperlipidemia Present on Admission: Yes Resume home meds as appropriate CVA (cerebral vascular accident) (CMS/HCC) Present on Admission: Yes PMH CVA and R sided deficits Resume home meds as appropriate Overweight (BMI 25.0-29.9) Present on Admission: Yes Could complicate hospitalization and mobility Debility Present on Admission: Yes PT/OT following Recommend ERIKA Possible PM&R consult for 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: recommend [id number] BID Fracture of right orbital floor (CMS/HCC) Present on Admission: Unknown 11/01: OR with ENT for right orbital floor fracture repair ENT following Plan: -MMPC - Augmentin and erythromycin for her eye purulence; ophtho following -DHT w/TF; d/c once tolerating 50% meals -Pulm Hygiene -Bowel reg -Sinus precautions -Delirium precautions - PT/OT Discharge dispo: ERIKA ([facility]) Edited by: Jenny Miller APRN at 11/05/2024 1041 Jenny Miller APRN * Care Plan - Jelly Clay RN - 11/05/2024 10:18 AM EDT Problem: Adult Inpatient Plan of Care Goal: Plan of Care Review 11/05/2024 1019 by Jelly Clay RN Outcome: Ongoing, Progressing Flowsheets (Taken 11/03/2024 0346 by Phoenix Crump) Progress: improving Plan of Care Reviewed With: patient sibling 11/05/2024 1018 by Jelly Clay, RN Outcome: Ongoing, Progressing Goal: Patient-Specific Goal (Individualized) 11/05/2024 1019 by Jelly Clay RN Outcome: Ongoing, Progressing Flowsheets (Taken 11/05/2024 0700) Patient/Family-Specific Goals (Include Timeframe): pt will have adequate pain control throughout shift Individualized Care Needs: pain control Anxieties, Fears or Concerns: pain 11/05/2024 1018 by Jelly Clay, RN Outcome: Ongoing, Progressing Goal: Absence of Hospital-Acquired Illness or Injury 11/05/2024 1019 by Jelly Clay, RN Outcome: Ongoing, Progressing 11/05/2024 1018 by Jelly Clay RN Outcome: Ongoing, Progressing Intervention: Prevent Infection Flowsheets (Taken 11/01/20241999 by Javi Frank, RN) Infection Prevention: environmental surveillance performed Goal: Optimal Comfort and Wellbeing 11/05/2024 1019 by Jelly Clay RN Outcome: Ongoing, Progressing 11/05/2024 1018 by Jelly Clay RN Outcome: Ongoing, Progressing Intervention: Provide Person-Centered Care Flowsheets (Taken 11/01/20241999 by Javi Frank, RN) Trust Relationship/Rapport: care explained choices provided emotional support provided Problem: Skin Injury Risk Increased Goal: Skin Health and Integrity 11/05/2024 1019 by Jelly Clay RN Outcome: Ongoing, Progressing 11/05/2024 1018 by Jelly Clay RN Outcome: Ongoing, Progressing Intervention: Promote and Optimize Oral Intake Flowsheets (Taken 10/31/2024 1817 by Danitza Méndez RN) Oral Nutrition Promotion: other (see comments) Nutrition Interventions: diet adjusted Problem: Fall Injury Risk Goal: Absence of Fall and Fall-Related Injury 11/05/2024 1019 by Jelly Clay RN Outcome: Ongoing, Progressing 11/05/2024 1018 by Jelly Clay RN Outcome: Ongoing, Progressing Intervention: Promote Injury-Free Environment Flowsheets (Taken 11/05/2024 0737) Safety Promotion/Fall Prevention: activity supervised assistive device/personal items within reach clutter-free environment maintained fall prevention program maintained lighting adjusted Problem: Functional Deficit Goal: Improved Balance and Postural Control 11/05/2024 1019 by Jelly Clay RN Outcome: Ongoing, Progressing 11/05/2024 1018 by Jelly Clay RN Outcome: Ongoing, Progressing Intervention: Optimize Balance and Safe Activity Flowsheets Taken 11/05/2024 0737 by Jelly Clay RN Safety Promotion/Fall Prevention: activity supervised assistive device/personal items within reach clutter-free environment maintained fall prevention program maintained lighting adjusted Taken 11/05/2024 0600 by Elizabeth Spencer, RN Activity Management: activity adjusted per tolerance Taken 11/01/20241999 by Javi Frank, RN Self-Care Promotion: independence encouraged Goal: Optimal Cognitive Function 11/05/2024 1019 by Jelly Clay RN Outcome: Ongoing, Progressing 11/05/2024 1018 by Jelly Clay RN Outcome: Ongoing, Progressing Intervention: Optimize Cognitive Function Flowsheets (Taken 11/01/20241999 by Javi Frank RN) Sensory Stimulation Regulation: auditory stimulation minimized tactile stimulation minimized Environment Familiarity/Consistency: daily routine followed Self-Care Promotion: independence encouraged Goal: Optimal Coordination 11/05/2024 1019 by Jelly Clay RN Outcome: Ongoing, Progressing 11/05/2024 1018 by Jelly Clay RN Outcome: Ongoing, Progressing Intervention: Optimize Motor Coordination and Function Flowsheets (Taken 11/01/20241999 by Jvai Frank RN) Self-Care Promotion: independence encouraged Goal: Improved Muscle Strength 11/05/2024 1019 by Jelly Clay RN Outcome: Ongoing, Progressing 11/05/2024 1018 by Jelly Clay RN Outcome: Ongoing, Progressing Intervention: Optimize Muscle Strength Flowsheets Taken 11/05/2024 06 by Elizabeth Spencer RN Activity Management: activity adjusted per tolerance Taken 11/02/2024 06 by Javi Frank RN Activity Assistance Provided: assistance, 2 people Taken 11/01/20241999 by Javi Frank RN Self-Care Promotion: independence encouraged Goal: Improved Muscle Tone 11/05/2024 1019 by Jelly Clay RN Outcome: Ongoing, Progressing 11/05/2024 1018 by Jelly Clay RN Outcome: Ongoing, Progressing Goal: Optimal Range of Motion 11/05/2024 1019 by Jelly Clay RN Outcome: Ongoing, Progressing 11/05/2024 1018 by Jelly Clay RN Outcome: Ongoing, Progressing Intervention: Maintain Functional Joint Range Position Flowsheets Taken 11/05/2024 06 by Elizabeth Spencer RN Range of Motion: active ROM (range of motion) encouraged ROM (range of motion) performed Taken 11/01/20241999 by Javi Frank RN Positioning/Transfer Devices: repositioning sheet Goal: Compensation for Sensory Deficit 11/05/2024 101 by Jlely Clay RN Outcome: Ongoing, Progressing 11/05/2024 1018 by Jelly Clay RN Outcome: Ongoing, Progressing Intervention: Optimize Sensory Function Flowsheets Taken 11/04/2024 0200 by Manuelito Angeles Skin Protection: incontinence pads utilized Taken 11/01/20241999 by Javi Frank RN Pressure Reduction Techniques: frequent weight shift encouraged Taken 11/01/2024 0849 by Felicia Miller RN Sensation Impairment Protection: insensate areas closely monitored Problem: Infection Goal: Absence of Infection Signs and Symptoms 11/05/2024 101 by Jelly Clay RN Outcome: Ongoing, Progressing 11/05/2024 101 by Jelly Clay RN Outcome: Ongoing, Progressing Intervention: Prevent or Manage Infection Flowsheets (Taken 11/05/2024 0737) Isolation Precautions: protective precautions maintained Problem: Pain Acute Goal: Optimal Pain Control and Function 11/05/2024 101 by Jelly Clay RN Outcome: Ongoing, Progressing 11/05/2024 101 by Jelly Clay RN Outcome: Ongoing, Progressing Intervention: Optimize Psychosocial Wellbeing Flowsheets (Taken 11/05/2024 1019) Supportive Measures: active listening utilized Diversional Activities: television Spiritual Activities Assistance: hope instilled Intervention: Develop Pain Management Plan Flowsheets (Taken 11/05/2024 0945) Pain Management Interventions: medication (see MAR) Intervention: Prevent or Manage Pain Flowsheets (Taken 11/01/20241999 by Javi Frank RN) Sensory Stimulation Regulation: auditory stimulation minimized tactile stimulation minimized Medication Review/Management: medications reviewed Problem: Enteral Nutrition Goal: Absence of Aspiration Signs and Symptoms 11/05/2024 1019 by Jelly Clay RN Outcome: Ongoing, Progressing 11/05/2024 101 by Jelly Clay RN Outcome: Ongoing, Progressing Intervention: Minimize Aspiration Risk Flowsheets Taken 11/05/2024 0800 by Jelly Clay RN Oral Care: mouth suctioned mouth swabbed Taken 11/05/2024 0600 by Elizabeth Spencer RN Head of Bed (HOB) Positioning: HOB at 30-45 degrees Goal: Feeding Tolerance 11/05/2024 1019 by Jelly Clay, LUANNE Outcome: Ongoing, Progressing 11/05/2024 101 by Clay, Jelly N, RN Outcome: Ongoing, Progressing * Care Plan - Elizabeth Spencer RN - 11/05/2024 6:00 AM EDT Problem: Adult Inpatient Plan of Care Goal: Plan of Care Review Outcome: Ongoing, Progressing Goal: Patient-Specific Goal (Individualized) Outcome: Ongoing, Progressing Flowsheets (Taken 11/04/20241999) Patient/Family-Specific Goals (Include Timeframe): pt will state adequate pain relief throughout shift Individualized Care Needs: pain managment Anxieties, Fears or Concerns: pain Goal: Optimal Comfort and Wellbeing Outcome: Ongoing, Progressing Intervention: Monitor Pain and Promote Comfort Flowsheets (Taken 11/04/20242149) Pain Management Interventions: medication (see MAR) Intervention: Provide Person-Centered Care Flowsheets (Taken 11/01/20241999 by Javi Frank RN) Trust Relationship/Rapport: care explained choices provided emotional support provided * Hospital Course - Charles Velasco APRN - 11/04/2024 5:03 PM EDT [place] Mata is a 64 y/o Female with a PMHx of CVA w/ R sided defecits on ASA/Plavix, HTN, HLP, CAD, and Hypothyroidism who presents on 10/30 s/p fall. Reversed with Anticoagulation was reversed withDDAVP. Injuries include: tSAH, IVH, R tripod fx with non-displaced ZMG, R globe hematoma s/p lateral canthotomy at OSH. Past 24h: Patient is sitting up in bed, comfortable and A&O x 2. Very pleasant but confused to time and place. NAD. NAEON. VSS. On RA, no SOA. Pain is well- controlled. Tolerating PO diet. Denies N/V, abd pain. Last BM 11/10. Mobilizing as able. Discussed anticipated hospital course with family at the bedside, plan to transport her to [facility] by car on this day at 1630. Family and patient are agreeable to the plan. 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 Physical therapy and occupational therapy evaluated the patient during hospitalization and recommend Subacute Rehab. At the time of discharge the patient was hemodynamically stable, tolerating PO, voiding spontaneously, normal bowel function, mobilizing appropriately, with their pain controlled with PO medication. At this time, the patient has obtained the maximum benefit from the present hospital stay, and so will be discharged to [facility]. DVT prophylaxis: Hold AC/AP for 2 weeks (11/14) Procedures: 11/01: s/p ORIF R zygomatic arch fx and R orbital wall fx repair Mobility Restrictions: None Other Precautions: Concussion Protocol: Continue to monitor signs and symptoms: headache, confusion, lack of coordination, memory loss, n/v, dizziness, ringing in ears, sleepiness and excessive fatigue Sinus Precautions x 2 weeks (until 11/14) Wound Care: Facial Lacerations: - Use half-strength hydrogen peroxide on a Q-tip to clean the wound/sutures of crusting. Pat dry, then use thin layer of bacitracin twice daily on wound for 5 days. After 5 days, stop the antibiotic ointment, and use thin layer of Vaseline or Aquaphor until fully healed. - When showering, do not have wound in direct spray; let the soapy water run over the wound and do not scrub. Pat dry. May fully submerge in 3 days. -Once completely healed, use sunblock or physical protection (e.g., broad- brimmed hat) when out in the sun for 6 months to prevent hyperpigmentation. -Vitamin E or Mederma may be used in 1 month to reduce scarring. Incidental Findings: None Follow up: PCP: Follow up in 1-2 weeks post hospitalization for incidental findings and management of chronic conditions/medications ENT: Follow up 2 weeks after discharge. Clinic will call with appointment date and time. Viv Orozco [facility], Third Floor, [place] [address] # [phone] Ophtho: Follow up 11/21 @ 12:25. [facility], [address] [place] [address] #[phone] Neurosurgery: Clinic will contact with appointment date and time, Viv Orozco, [facility], [address], [place] [address], SGT: ALKA Thursday Clinic as needed ; [address] [facility] First Floor, [address] [place] [address], #[phone]. Questions or Concerns and Appointments If there are questions or concerns after discharge from the hospital, please call [phone] and ask for [facility] Nurse. Working hours are Thursday - Thursday 8:00 AM to 4:00 PM. After hours, weekends and holidays please call [phone] and ask for the resident calibration tester for [facility]. For appointments please call [phone]. Medication requests should be made between the hours of 9:00 AM to 3:00 PM Thursday thru Thursday. Please note that based upon recent changes to [place] law related to prescribing opioid pain medications, our providers will not provide refills on controlled medications after your hospital discharge following a major surgery or trauma. [place], [place] 201 KAR9:260. * Transfer of Care - Keri Patel MD - 11/04/2024 4:40 PM EDT [facility] Transfer Note Patient is being transferred from T ICU to T 5 on 11/04/24 Reason for transfer: Downgrade Level of Care Requested: Acute Telemetry: No Pulse oximetry: No Hospital course: [place] Mata is a 64 y/o F with PMH CVA, R sided defecits on ASA/Plavix, HTN, HLP, CAD, and hypothyroidism. Presents s/p fall. Reversed with DDAVP. Injuries include: tSAH, IVH, R tripod fx with non-displaced ZMG, R globe hematoma s/p lateral canthotomy at OSH 11/01: s/p ORIF R zygomatic arch fx and R orbital wall fx repair Interval: GCS 14. Keppra to end tomorrow. Overnight ENT expressed pus from her left eye, recommend abx, She has been hemodynamically stable. On 2 liters NC. MBS completed yesterday, on easy to chew diet and bowel reg, still on tube feeds due to poor PO intake. Having appropriate BM, last one overnight. UOP yesterday 4L. Renal fxn stable. Hgb went from 8.8 to 7.9. Afebrile, no leukocytosis. BGL 114, Lovenox for DVT ppx. Edited by: Keri Patel MD at 11/04/2024 1239 Patient Active Problem List Diagnosis Date Noted Fracture of right orbital floor ([facility]) 11/03/2024 Debility 11/02/2024 Overweight (BMI 25.0-29.9) 10/31/2024 Zygomatic arch fracture ([facility]) 10/30/2024 Injury of globe of eye, right, initial encounter 10/30/2024 Fall 10/30/2024 TBI (traumatic brain injury) ([facility]) 10/30/2024 Carotid stenosis 10/30/2024 ABLA (acute blood loss anemia) 10/30/2024 Hyperglycemia 10/30/2024 Acute respiratory failure with hypoxia 10/30/2024 Lactic acidosis 10/30/2024 Electrolyte abnormality 10/30/2024 MELISSA (acute kidney injury) ([facility]) 10/30/2024 Hypothyroidism 10/30/2024 Hypertension 10/30/2024 Hyperlipidemia 10/30/2024 CVA (cerebral vascular accident) ([facility]) 10/30/2024 Antibiotics: amoxicillin-clavulanate Indication and duration: - augmentin: concerns for eyelid infection, - erythrymycin: concerns for eyelid infection Tubes / Lines / Drains: Urethral Catheter (Active) Feeding Tube Gastric 10 Fr. Left nare (Active) Peripheral IV Anterior;Left Forearm (Active) Peripheral IV 10/30/24 Right Antecubital (Active) Peripheral IV 10/30/24 Left Antecubital (Active) Peripheral IV 10/30/24 Anterior;Distal;Right Forearm (Active) Tertiary survey date: 10/31/24 The Audit-C was: Completed ITSS: Deferred for patient unable to complete. Will need completion. Consultants and recommendations: - ENT: follow wound culture swab, continue augmentin Disposition barriers: ERIKA I have reviewed and updated the patients Problem List to reflect current plan of care with recommendations of the most recent progress notes of consultants: Yes I have communicated handoff with the primary receiving provider: Jenny Miller I have reviewed appropriateness for transfer at time of bed allocation: Yes Predictive Model Details 52 (Medium) Factor Value Calculated 11/04/2024 16:33 21% Supplemental oxygen Supplemental oxygen Deterioration Index Model 21% Age [age] years old 18% Neurological exam X 15% Respiratory rate 22 13% Benja coma scale 14 4% Hematocrit abnormal (25.5 %) 4% Sodium 143 mmol/L 1% Systolic 119 1% Temperature 37.7 ??C (99.8 ??F) 1% Blood pH 7.38 0% Pulse 85 0% WBC count 7.42 10*3/uL 0% Potassium 3.9 mmol/L 0% Pulse oximetry 96 % Keri Patel MD * Care Plan - Junior Naila Raines - 11/04/2024 3:21 PM EDT Problem: Adult Inpatient Plan of Care Goal: Plan of Care Review Outcome: Ongoing, Progressing Flowsheets (Taken 11/03/2024 0346 by Phoenix Crump) Progress: improving Plan of Care Reviewed With: patient sibling Goal: Patient-Specific Goal (Individualized) Outcome: Ongoing, Progressing Flowsheets (Taken 11/04/2024 1300) Patient/Family-Specific Goals (Include Timeframe): pt will report pain of 5 or less throughout shift Individualized Care Needs: pain managment Anxieties, Fears or Concerns: pain Goal: Absence of Hospital-Acquired Illness or Injury Outcome: Ongoing, Progressing Intervention: Identify and Manage Fall Risk Flowsheets (Taken 11/04/2024 1300) Safety Promotion/Fall Prevention: activity supervised lighting adjusted clutter-free environment maintained fall prevention program maintained room organization consistent safety round/check completed nonskid shoes/slippers when out of bed Intervention: Prevent Skin Injury Flowsheets Taken 11/04/2024 1300 by Junior Naila Raines Body Position: turned right Taken 11/04/2024 020 by Manuelito Angeles Skin Protection: incontinence pads utilized Intervention: Prevent and Manage VTE (Venous Thromboembolism) Risk Flowsheets (Taken 11/04/2024 0600 by Manuelito Angeles) VTE Prevention/Management: bilateral SCDs (sequential compression devices) on Intervention: Prevent Infection Flowsheets (Taken 11/01/20241999 by Javi Frank, RN) Infection Prevention: environmental surveillance performed Goal: Optimal Comfort and Wellbeing Outcome: Ongoing, Progressing Intervention: Monitor Pain and Promote Comfort Flowsheets (Taken 11/04/2024 0520 by Manuelito Angeles) Pain Management Interventions: medication (see MAR) Intervention: Provide Person-Centered Care Flowsheets (Taken 11/01/20241999 by Javi Frank, RN) Trust Relationship/Rapport: care explained choices provided emotional support provided Problem: Skin Injury Risk Increased Goal: Skin Health and Integrity Outcome: Ongoing, Progressing Intervention: Optimize Skin Protection Flowsheets Taken 11/04/2024 1300 by Junior Naila Raines Activity Management: activity adjusted per tolerance Head of Bed (HOB) Positioning: HOB at 30-45 degrees Taken 11/04/2024 0200 by Manuelito Angeles Skin Protection: incontinence pads utilized Taken 11/01/20241999 by Javi Frank, RN Pressure Reduction Techniques: frequent weight shift encouraged Taken 11/01/2024 0849 by Felicia Mliler RN Pressure Reduction Devices: heel offloading device utilized positioning supports utilized Intervention: Promote and Optimize Oral Intake Flowsheets (Taken 10/31/2024 1816 by Danitza Méndez, RN) Oral Nutrition Promotion: other (see comments) Nutrition Interventions: diet adjusted Problem: Fall Injury Risk Goal: Absence of Fall and Fall-Related Injury Outcome: Ongoing, Progressing Intervention: Identify and Manage Contributors Flowsheets (Taken 11/01/20241999 by Javi Frank, RN) Medication Review/Management: medications reviewed Self-Care Promotion: independence encouraged Intervention: Promote Injury-Free Environment Flowsheets (Taken 11/04/2024 1300) Safety Promotion/Fall Prevention: activity supervised lighting adjusted clutter-free environment maintained fall prevention program maintained room organization consistent safety round/check completed nonskid shoes/slippers when out of bed Problem: Functional Deficit Goal: Improved Balance and Postural Control Outcome: Ongoing, Progressing Intervention: Optimize Balance and Safe Activity Flowsheets Taken 11/04/2024 1300 by Junior Naila Raines Activity Management: activity adjusted per tolerance Safety Promotion/Fall Prevention: activity supervised lighting adjusted clutter-free environment maintained fall prevention program maintained room organization consistent safety round/check completed nonskid shoes/slippers when out of bed Taken 11/01/20241999 by Javi Frank RN Self-Care Promotion: independence encouraged Goal: Optimal Cognitive Function Outcome: Ongoing, Progressing Intervention: Optimize Cognitive Function Flowsheets (Taken 11/01/20241999 by Javi Frank, RN) Sensory Stimulation Regulation: auditory stimulation minimized tactile stimulation minimized Environment Familiarity/Consistency: daily routine followed Self-Care Promotion: independence encouraged Goal: Optimal Coordination Outcome: Ongoing, Progressing Intervention: Optimize Motor Coordination and Function Flowsheets (Taken 11/01/20241999 by Javi Frank, RN) Self-Care Promotion: independence encouraged Goal: Improved Muscle Strength Outcome: Ongoing, Progressing Intervention: Optimize Muscle Strength Flowsheets Taken 11/04/2024 1300 by Junior Naila Raines Activity Management: activity adjusted per tolerance Taken 11/02/2024 0600 by Javi Frank, RN Activity Assistance Provided: assistance, 2 people Taken 11/01/20241999 by Javi Frank RN Self-Care Promotion: independence encouraged Goal: Improved Muscle Tone Outcome: Ongoing, Progressing Goal: Optimal Range of Motion Outcome: Ongoing, Progressing Intervention: Maintain Functional Joint Range Position Flowsheets Taken 11/04/2024 1300 by Junior Naila Raines Range of Motion: active ROM (range of motion) encouraged ROM (range of motion) performed Taken 11/01/20241999 by Javi Frank RN Positioning/Transfer Devices: repositioning sheet Goal: Compensation for Sensory Deficit Outcome: Ongoing, Progressing Intervention: Optimize Sensory Function Flowsheets Taken 11/04/2024 0200 by Manuelito Angeles Skin Protection: incontinence pads utilized Taken 11/01/20241999 by Javi Frank RN Pressure Reduction Techniques: frequent weight shift encouraged Taken 11/01/2024 0849 by Felicia Miller RN Sensation Impairment Protection: insensate areas closely monitored Problem: Infection Goal: Absence of Infection Signs and Symptoms Outcome: Ongoing, Progressing Intervention: Prevent or Manage Infection Flowsheets (Taken 11/04/2024 1300) Isolation Precautions: precautions maintained Problem: Pain Acute Goal: Optimal Pain Control and Function Outcome: Ongoing, Progressing Intervention: Develop Pain Management Plan Flowsheets (Taken 11/04/2024 0520 by Manuelito Angeles) Pain Management Interventions: medication (see MAR) Intervention: Prevent or Manage Pain Flowsheets (Taken 11/01/20241999 by Javi Frank, RN) Sensory Stimulation Regulation: auditory stimulation minimized tactile stimulation minimized Medication Review/Management: medications reviewed Problem: Enteral Nutrition Goal: Absence of Aspiration Signs and Symptoms Outcome: Ongoing, Progressing Intervention: Minimize Aspiration Risk Flowsheets Taken 11/04/2024 1500 by Jelly Clay RN Oral Care: mouth suctioned mouth swabbed Taken 11/04/2024 1300 by Junior Naila Raines Head of Bed (HOB) Positioning: HOB at 30-45 degrees Goal: Feeding Tolerance Outcome: Ongoing, Progressing * Progress Notes - Jeane Cowan - 11/04/2024 1:00 PM EDT Case Management Adult Progress Note [place] Mata 64 y.o. female CSN: [id number] Admission: 10/30/2024 2:57 AM Primary Problem: Fall Anticipated Discharge Date: TBD Pt has been accepted to rehab at [facility]. Pt/family agreeable. Per liaison, pt will need to be stable off IV pain meds for 24/hrs prior to beginning pre- cert. Will also need feeding tube removed.Will reevaluate on Thursday for readiness. Jeane Cowan MSW, INTERLOCKING AND SIGNAL MECHANIC Trauma/General Surgery ICU * Consults - Back, Nahed Richardson RD - 11/04/2024 10:20 AM EDT Adult Nutrition Evaluation Note [place] Mata 64 y.o. female CSN: [id number] Room/Bed 239/239A Nutrition evaluation type: follow-up Reason for evaluation: Hospital course: 64 y.o female admitted after fall. OSH found cerebral artery hemmorhage, ad tripodfx of rt eye. Zygomatic arch rx. Plan to extubate. OR 11/01 for ORIF zygomaticomaxillary complex fracture. DIRECT CARE PROFESSIONAL recs Easy to chew with thin liquids. Plans to downgrade. Past medical/ surgical history: Past Medical History[1] Surgical History[2] Social history: Additional comments: Out of room at time of visit, downgraded. Not a big eater per family. Likes pepsi and chocolate. Off pressors. No significant weight changes. TF at 40 ml/hr over 10 hours. Planned to remove dht, advance diet. Per nurse, poor intake, keep dobhoff and just decrease rate of feeds. Vitals and Basic Assessment: BP: (!) 164/69 Temp: 37.4 ??C (99.3 ??F) Invasive Ventilator Initiated (ETT/Trach Only): Yes Oxygen Therapy: Supplemental oxygen O2 Delivery Method: Nasal cannula [place] Coma Scale Score: 13 Denis Scale Score: 19 Pietro/Cubbin Pressure Risk Score: 37 Most Recent BM Date: 11/02/24 Edema: Generalized Allergies: NKFA Medications: Current Scheduled Medications[3] Current Continuous Medications[4] Current PRN Medications[5] Meds were reviewed: Yes Labs: BMP Na 143 Cl 108 (H) BUN 21 Glu 114 (H) K 3.9 Co2 27 Cr 0.73 Ca 7.9 (L) iCa ?? Mg 2.2, Phos 3.6 Lactate ?? Lab Results Component Value Date CHOL 217 (H) 05/22/2023 CHOL 219 (H) 06/10/2021 TRIG 82 10/31/2024 TRIG 174 (H) 05/22/2023 TRIG 169 (H) 06/10/2021 HDL 54 05/22/2023 HDL 55 06/10/2021 LDLCALC 132 (H) 05/22/2023 LDLCALC 130.2 (H) 06/10/2021 Lab Results Component Value Date HGBA1C 5.7 (H) 07/20/2024 Anthropometrics: Height: 160 cm (5' 2.99 ) Weight: 67.6 kg (149 lb 0.5 oz) BMI (Calculated): 26.41 Weight Evaluation: Overweight (BMI 25-29.9) Polaris Body Weight (kg): 52.3 Percent [place]aris Body Weight: 129 Adjusted Body Weight (kg): 56.1 Wt Readings from Last 5 Encounters: 10/30/24 67.6 kg (149 lb 0.5 oz) 06/19/23 58.9 kg (129 lb 13.6 oz) 05/22/23 59.1 kg (130 lb 3.2 oz) 07/08/21 58.3 kg (128 lb 9.6 oz) 06/17/21 60 kg (132 lb 3.2 oz) Estimated Needs: Kcal/ K - 35 Kcal Provided: 2027 - 2365 Kcal Needs Based On: Current weight Gm Protein/ Kg : 1.2 - 1.5 Protein Provided: 81 - 101 Protein Needs Based On: Current weight Metabolic Cart Study Results: Current Nutrition Intake: Diet Supplements: Boost Very High Calorie Diet Order: Adult Diet Diet Texture: Easy to Chew 7 Percent Meals Eaten (%): None documented Enteral Nutrition Formula/Solution: Impact Peptide 1.5 Tube Feeding Route: [place] Current Tube Feed Rate (Continuous or Intermittent): 40 Goal Tube Feed Rate (Continuous or Intermittent): 40 Current Bolus Order: Cyclic over 10 hours Kcal Provided by EN: 660 Protein Provided by EN: 41 Water Provided by EN: 339 Grams of Carbs Provided by EN: 62 Diet Experience and Nutrition History: Diet Education Provided: Will monitor Pertinent home medications: Folvite, Remeron Nutrition Focused Physical Exam: Physical exam performed on (date): 10/31 Temples (muscles): None Clavicle (muscle): None Orbital (fat): Mild Triceps (fat): None Assessment of Malnutrition: Malnutrition Identified: No Nutrition Problem: Inadequate oral intake related to current medical status as evidenced by NPO diet. Status of Nutrition Diagnosis: Ongoing Nutrition Interventions and Recommendations: - Continue Easy to Chew diet - Continue Boost [facility] TID - TF Recs: Cyclic 50% of needs - Impact Peptide 1.5 @ 60 mL/hr over 12 hours - Provides: 1080 kcal, 68g protein, 101g CHO, 556 mL water - Can start at 20 ml/hr advance by 10 ml q 6 hours - Free water per team - Document infusions Nutrition Monitoring and Goals: - Consume 75% or greater - Tolerate >80% of goal (met) - Monitor weight, labs, and elytes Acuity Level: [address] [1] Past Medical History: Diagnosis Date Depression Fibromyalgia Hx of degenerative disc disease Hyperlipidemia Hypertension Neuropathy Stroke (CMS/HCC) [2] Past Surgical History: Procedure Laterality Date CAROTID STENT LUNG SURGERY ORAL SURGERY RENAL ARTERY STENT REPLACEMENT TOTAL HIP LATERAL POSITION TONSILLECTOMY [3] acetaminophen, 1,000 mg, Oral, q6h BACILIO [START ON 11/05/2024] amLODIPine, 5 mg, Oral, Daily amoxicillin-clavulanate, 875 mg, Oral, q12h atorvastatin, 40 mg, Oral, Nightly barium sulfate, 120 mL, Oral, Once in imaging barium sulfate, 90 mL, Oral, Once in imaging dantrolene, 25 mg, Oral, BID enoxaparin, 30 mg, Subcutaneous, BID erythromycin, 1 Application, Both Eyes, q8h BACILIO FLUoxetine, 20 mg, Oral, Daily ipratropium-albuterol, 3 mL, Nebulization, q6h RT levETIRAcetam, 1,000 mg, Oral, BID levothyroxine, 75 mcg, Oral, Daily before breakfast polyethylene glycol, 17 g, Oral, BID QUEtiapine, 50 mg, Oral, Nightly senna-docusate, 2 tablet, Oral, BID tamsulosin, 0.4 mg, Oral, Daily with dinner [4] [5] PRN medications: guaiFENesin, hydrALAZINE, hydrOXYzine pamoate, oxyCODONE * Progress Notes - Vidal Ivey MD - 11/04/2024 8:20 AM EDT Otolaryngology-Head and Neck Surgery Progress Note Subjective Patient continues to have waxing and waning altered mental status. There was concern for new purulence on exam today. Still ongoing concern for potential vision loss. Objective Vitals: Temp: [36.3 ??C (97.4 ??F)-37.4 ??C (99.3 ??F)] 37 ??C (98.6 ??F) Heart Rate: [74-101] 93 Resp: [16-18] 16 BP: (100-151)/(54-73) 103/54 Temp (24hrs), Av.8 ??C (98.2 ??F), Min:36.3 ??C (97.4 ??F), Max:37.4 ??C (99.3 ??F) Wt Readings from Last 3 Encounters: 10/30/24 67.6 kg (149 lb 0.5 oz) 06/19/23 58.9 kg (129 lb 13.6 oz) 05/22/23 59.1 kg (130 lb 3.2 oz) Physical exam: GEN: no apparent distress, well appearing female, confused but directable HEAD: Normocephalic, atraumatic EYES: Right conjunctival injection and periorbital ecchymosis. Post-op edema. Incision closed intact. EOM restricted in upward gaze on right eye, pupil reactive, no blink reflex. Concerns of purulence on exam. EARS: Pinnae without laceration or deformity, no drainage NOSE: Nares patent, no drainage MOUTH: Mucous membranes pink and moist, tongue with full ROM NECK: Soft, supple, no palpable masses RESP: Symmetric chest rise, unlabored breathing CV: appears well perfused, no cyanosis MSK/EXT: no gross deformities, appropriate ROM NEURO: alert and oriented, no focal deficits PSYCH: Appropriate mood and affect I/O: Intake/Output 11/05/24 0601 - 11/06/24 0600 11/06/24 06 - 11/07/24 0600 Intake P.O. 360 -- NG/GT 715 672 Total Intake 1075 672 Output Urine 650 650 Total Output 650 650 Net I/O 425 22 Medications: Current Scheduled Medications[1] Current Continuous Medications[2] PRN Meds: Current PRN Medications[3] Results: WBC ?? Hgb ?? PLT ?? HCT ?? INR ?? PTT ?? antiXa ?? Na ?? Cl ?? BUN ?? Gluc ?? K ?? CO2 ?? Creat ?? Ca ?? iCa ?? Mg ?? Phos ?? pH ?? pCO2 ?? pO2 ?? SPO2 ?? FIO2 ?? HCO3 ?? BE ?? Lactate ?? Imaging Assessment/Plan [place] Mata is a 64 y.o. female with PMHx significant for CVA, R hemiparesis, carotid stent on Plavix and HTN who presents to ED intubated and sedated following unwitnessed fall. She was found to have right tripod fracture with non-displaced zygomatic arch and comminuted right orbital floor fracture. She underwent open reduction internal fixation of right ZMC and orbital floor fractures on 11/01. #S/p Right ZMC and orbital floor repair 11/01 - Recommend Ophtho reevaluation of vision loss/changes in addition to entrapment concern since postop - Recommend Augmentin for hardware in place after surgery - Erythromycin optho ointment TID to right eye - Sinus Precautions for 2 weeks total - Mupirocin ointment to nostril #Facial laceration - Use half-strength hydrogen peroxide on a Q-tip to clean the wound/sutures of crusting. Pat dry, then use thin layer of bacitracin twice daily on wound for 5 days. After 5 days, stop the antibiotic ointment, and use thin layer of Vaseline or Aquaphor until fully healed. - When showering, do not have wound in direct spray; let the soapy water run over the wound and do not scrub. Pat dry. May fully submerge in 3 days. -Once completely healed, use sunblock or physical protection (e.g., broad- brimmed hat) when out in the sun for 6 months to prevent hyperpigmentation. -Vitamin E or Mederma may be used in 1 month to reduce scarring. Edited by: Vidal Ivey MD at 11/05/2024 1143 Vidal Ivey MD [1] acetaminophen, 1,000 mg, Oral, q6h BACILIO amLODIPine, 5 mg, Oral, Daily amoxicillin-clavulanate, 875 mg, Oral, q12h atorvastatin, 40 mg, Oral, Nightly barium sulfate, 120 mL, Oral, Once in imaging barium sulfate, 90 mL, Oral, Once in imaging dantrolene, 25 mg, Oral, BID doxycycline, 100 mg, Oral, BID enoxaparin, 30 mg, Subcutaneous, BID erythromycin, 1 Application, Both Eyes, q8h BACILIO FLUoxetine, 20 mg, Oral, Daily ipratropium-albuterol, 3 mL, Nebulization, q6h RT levothyroxine, 75 mcg, Oral, Daily before breakfast mirtazapine, 15 mg, Oral, Nightly mupirocin, 1 Application, Each Nostril, BID polyethylene glycol, 17 g, Oral, BID QUEtiapine, 50 mg, Oral, Nightly senna-docusate, 2 tablet, Oral, BID tamsulosin, 0.4 mg, Oral, Daily with dinner [2] [3] PRN medications: guaiFENesin, hydrALAZINE, hydrOXYzine pamoate, ondansetron ODT OR ondansetron, oxyCODONE Cosigned by Yobani Benoit MD at 11/07/2024 8:06 AM EDT * Assessment & Plan Note - Micheal Espinoza MD - 11/04/2024 7:05 AM EDT Associated Problem(s): Zygomatic arch fracture (CMS/HCC) 11/01: OR with ENT for ORIF right Zygomatic arch fracture * Assessment & Plan Note - Micheal Espinoza MD - 11/04/2024 7:05 AM EDT Associated Problem(s): Injury of globe of eye, right, initial encounter S/p canthotomy at OSH Optho following- will reach out for recheck of vision when patient consistently able to participatein exam * Assessment & Plan Note - Micheal Espinoza MD - 11/04/2024 7:05 AM EDT Associated Problem(s): Fall Admit SGT ICU [x] Tertiary 10/31 [] Audit-C [] Patient will need ITSS evaluation when appropriate * Assessment & Plan Note - Micheal Espinoza MD - 11/04/2024 7:05 AM EDT Associated Problem(s): TBI (traumatic brain injury) SAH, IVH NSGY consult DDAVP given at OSH * Assessment & Plan Note - Micheal Espinoza MD - 11/04/2024 7:05 AM EDT Associated Problem(s): Carotid stenosis Coat Padder and mca stenosis Resume home meds as appropriate * Assessment & Plan Note - Micheal Espinoza MD - 11/04/2024 7:05 AM EDT Associated Problem(s): ABLA (acute blood loss anemia) Recheck hemogram and transfuse as necessary * Assessment & Plan Note - Micheal Espinoza MD - 11/04/2024 7:05 AM EDT Associated Problem(s): Hyperglycemia Likely reactive to trauma, recheck and treat as necessary Did not require insulin while in ICU * Assessment & Plan Note - Micheal Espinoza MD - 11/04/2024 7:05 AM EDT Associated Problem(s): Acute respiratory failure with hypoxia Extubated 10/31/24 Placed on HFNC on 11/01/24 2L NC * Assessment & Plan Note - Micheal Espinoza MD - 11/04/2024 7:05 AM EDT Associated Problem(s): Lactic acidosis IVF resuscitation and recheck as necessary * Assessment & Plan Note - Micheal Espinoza MD - 11/04/2024 7:05 AM EDT Associated Problem(s): Electrolyte abnormality Hypomagnesemia (POA) Hypocalcemia (POA) Replace/treat and recheck as necessary * Assessment & Plan Note - Micheal Espinoza MD - 11/04/2024 7:05 AM EDT Associated Problem(s): MELISSA (acute kidney injury) Avoid nephrotoxic agents as able and renally dose medications IVF resuscitation as needed * Assessment & Plan Note - Micheal Espinoza MD - 11/04/2024 7:05 AM EDT Associated Problem(s): Hypothyroidism Resume home meds as appropriate * Assessment & Plan Note - Micheal Espinoza MD - 11/04/2024 7:05 AM EDT Associated Problem(s): Hypertension Resume home meds as appropriate * Assessment & Plan Note - Micheal Espinoza MD - 11/04/2024 7:05 AM EDT Associated Problem(s): Hyperlipidemia Resume home meds as appropriate * Assessment & Plan Note - Micheal Espinoza MD - 11/04/2024 7:05 AM EDT Associated Problem(s): CVA (cerebral vascular accident) ([facility]) PMH CVA and R sided deficits Resume home meds as appropriate * Assessment & Plan Note - Micheal Espinoza MD - 11/04/2024 7:05 AM EDT Associated Problem(s): Overweight (BMI 25.0-29.9) Could complicate hospitalization and mobility * Assessment & Plan Note - Micheal Espinoza MD - 11/04/2024 7:05 AM EDT Associated Problem(s): Debility PT/OT following Recommend ERIKA Possible PM&R consult for 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: recommend [id number] BID * Assessment & Plan Note - Micheal Espinoza MD - 11/04/2024 7:05 AM EDT Associated Problem(s): Fracture of right orbital floor 11/01: OR with ENT for right orbital floor fracture repair * Progress Notes - Micheal Espinoza MD - 11/04/2024 7:05 AM EDTAssociated Order(s): Critical Care Post-Procedure Diagnose(s): Electrolyte abnormality; Acute respiratory failure with hypoxia; Fall, initial encounter; Hypertension, unspecified type; Traumatic brain injury, with unknown loss of consciousness status, initial encounter Trauma ICU Daily Progress Note 11/04/24 [place] Mata HPI [place] Mata is a 64 y/o F with PMH CVA, R sided defecits on ASA/Plavix, HTN, HLP, CAD, and hypothyroidism. Presents s/p fall. Reversed with DDAVP. Injuries include: tSAH, IVH, R tripod fx with non-displaced ZMG, R globe hematoma s/p lateral canthotomy at OSH 11/01: s/p ORIF R zygomatic arch fx and R orbital wall fx repair Interval: GCS 14. Keppra to end tomorrow. Overnight ENT expressed pus from her left eye, recommend abx, She has been hemodynamically stable. On 2 liters NC. MBS completed yesterday, on easy to chew diet and bowel reg, still on tube feeds due to poor PO intake. Having appropriate BM, last one overnight. UOP yesterday 4L. Renal fxn stable. Hgb went from 8.8 to 7.9. Afebrile, no leukocytosis. BGL 114, Lovenox for DVT ppx. Edited by: Keri Patel MD at 11/04/2024 1239 Relevant review of systems was obtained as able and is negative unless stated above in HPI. Vital signs: Visit Vitals BP (!) 164/69 Pulse 78 Temp 37.4 ??C (99.3 ??F) Resp 20 Ht 1.6 m (5' 2.99 ) Wt 67.6 kg (149 lb 0.5 oz) SpO2 99% BMI 26.41 kg/m?? Smoking Status Former BSA 1.73 m?? Intake/Output Summary (Last 24 hours) at 11/04/2024 1241 Last data filed at 11/04/2024 0800 Gross per 24 hour Intake 1261 ml Output 4631 ml Net -3370 ml Physical Exam: Physical Exam HENT: Head: Normocephalic. Comments: Marley-orbital swelling of right eye S/p lateral canthotomy site of right eye Right Ear: External ear normal. Left Ear: External ear normal. Nose: Nose normal. Comments: DHT in place Mouth/Throat: Mouth: Mucous membranes are moist. Pharynx: Oropharynx is clear. Eyes: Comments: L pupil 3mm reactive to light, EOM intact Cardiovascular: Rate and Rhythm: Normal rate and regular rhythm. Pulses: Normal pulses. Pulmonary: Effort: Pulmonary effort is normal. Comments: 4L NC Abdominal: General: Abdomen is flat. Palpations: Abdomen is soft. Musculoskeletal: Cervical back: Normal range of motion. Right lower leg: No edema. Left lower leg: No edema. Skin: General: Skin is warm. Capillary Refill: Capillary refill takes less than 2 seconds. Neurological: General: No focal deficit present. Mental Status: She is oriented to person, place, and time. GCS: GCS eye subscore is 4. GCS verbal subscore is 5. GCS motor subscore is 6. Motor: Weakness (R side from previous CVA history) present. Comments: Obeys commands intermittently Psychiatric: Mood and Affect: Mood is anxious (Anxious about healing). Lines/Drains/Tubes: Patient Lines/Drains/Airways Status Active Airway None O2 Delivery Method: Nasal cannula Output by Drain (mL) 11/02/24 07 - 11/02/24 1859 11/02/24 190 - 11/03/24 0659 11/03/24 0700 - 11/03/24 1859 11/03/24 1900 - 11/04/24 0659 11/04/24 0700 - 11/04/24 1241 Requested LDAs do not have output data documented. Labs in last 18 hours: CBC WBC 7.42 Hb 7.9 (L) Plt 229 Hct 25.5 (L) ANC ?? INR ??, PTT ??, Anti-Xa ?? BMP Na 143 Cl 108 (H) BUN 21 Glu 114 (H) K 3.9 Co2 27 Cr 0.73 Ca 7.9 (L) iCa ?? Mg 2.2, Phos 3.6 Lactate ?? LFT AST ?? AlkPhos ?? T Prot ?? ALK ?? Bili ?? Alb ?? D.Bili ?? Lab Trends: H/H Results from last 7 days Lab Units 11/04/24 0007 11/03/24 1513 11/03/24 0208 HEMOGLOBIN g/dL 7.9* 8.8* 7.6* HEMATOCRIT % 25.5* 28.3* 24.4* INR Cr Results from last 7 days Lab Units 11/04/24 0007 11/03/24 0208 11/01/24 1809 CREATININE mg/dL 0.73 0.78 0.78 Radiology: I have personally reviewed and interpreted the most recent CXR and my interpretation is that it shows worsening aeration throughout right lung, which may represent edema vs airspace disease. Medications reviewed. Vital signs reviewed. Labs reviewed. Radiography reviewed. Assessment and Plan: Assessment & Plan Zygomatic arch fracture (CMS/HCC) Present on Admission: Yes 11/01: OR with ENT for ORIF right Zygomatic arch fracture Injury of globe of eye, right, initial encounter Present on Admission: Yes S/p canthotomy at OSH Optho following- will reach out for recheck of vision when patient consistently able to participatein exam Fall Present on Admission: Yes Admit SGT ICU [x] Tertiary 10/31 [] Audit-C [] Patient will need ITSS evaluation when appropriate TBI (traumatic brain injury) (CMS/HCC) Present on Admission: Yes SAH, IVH NSGY consult DDAVP given at OSH Carotid stenosis Present on Admission: Yes Coat Padder and mca stenosis Resume home meds as appropriate ABLA (acute blood loss anemia) Present on Admission: Yes Recheck hemogram and transfuse as necessary Hyperglycemia Present on Admission: Yes Likely reactive to trauma, recheck and treat as necessary Did not require insulin while in ICU Acute respiratory failure with hypoxia Present on Admission: Yes Extubated 10/31/24 Placed on HFNC on 11/01/24 2L NC Lactic acidosis Present on Admission: Yes IVF resuscitation and recheck as necessary Electrolyte abnormality Present on Admission: Yes Hypomagnesemia (POA) Hypocalcemia (POA) Replace/treat and recheck as necessary MELISSA (acute kidney injury) (CMS/HCC) Present on Admission: Yes Avoid nephrotoxic agents as able and renally dose medications IVF resuscitation as needed Hypothyroidism Present on Admission: Yes Resume home meds as appropriate Hypertension Present on Admission: Yes Resume home meds as appropriate Hyperlipidemia Present on Admission: Yes Resume home meds as appropriate CVA (cerebral vascular accident) (CMS/HCC) Present on Admission: Yes PMH CVA and R sided deficits Resume home meds as appropriate Overweight (BMI 25.0-29.9) Present on Admission: Yes Could complicate hospitalization and mobility Debility Present on Admission: Yes PT/OT following Recommend ERIKA Possible PM&R consult for 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: recommend [id number] BID Fracture of right orbital floor (CMS/HCC) Present on Admission: Unknown 11/01: OR with ENT for right orbital floor fracture repair To Do: - increase Amlodipine to her home dose (5mg) - dc dilaudid - start Augmentin and erythromycin for her eye purulence - de-escalate NC - make tube feeds nocturnal only. Add boost drinks TID - trend UOP - downgrade to acute - PT/OT recs: Subacute rehab Edited by: Keri Patel MD at 11/04/2024 7900 Keri Patel MD Critical Care Performed by: Micheal Espinoza MD Authorized by: Micheal Espinoza MD Critical care provider statement: Critical care time (minutes): 30 Critical care time was exclusive of: Separately billable procedures and treating other patients andteaching time Critical care was time spent personally by me on the following activities: Evaluation of patient's response to treatment, examination of patient, ordering and review of radiographic studies, orderingand performing treatments and interventions, ordering and review of laboratory studies and discussions with consultants I assumed subsequent critical care for this patient from a provider in my division, on the same day: no Critical care statement: I saw and evaluated the patient with the resident/ fellow. I discussed thecase with the resident/ fellow and agree with the findings and plan as documented. Comments: GCS remains 14. Keppra for seizure ppx until 11/05. Discussed with ENT who expressed pus from canthotomy site. Recommended abx. Will start augmentin. Hypertension. Resuming home dose of amlodipine. On 2L nasal cannula. Aggressive pulmonary toilet. On goal tube feeds. DIRECT CARE PROFESSIONAL evaluated and cleared for diet but PO intake remains poor. Will switch to nocturnal feeds and continue diet with protein supplementation during the day. Adequate urine output after 20mg lasix yesterday. Trial of void 11/05. Chemical VTE prophylaxis. * Care Plan - Manuelito Angeles - 11/03/2024 11:00 PM EDT Problem: Adult Inpatient Plan of Care Goal: Plan of Care Review Outcome: Ongoing, Not Progressing Flowsheets (Taken 11/03/2024 0346 by Phoenix Crump) Progress: improving Plan of Care Reviewed With: patient sibling Goal: Patient-Specific Goal (Individualized) Outcome: Ongoing, Not Progressing Flowsheets (Taken 11/03/20241999) Patient/Family-Specific Goals (Include Timeframe): Pt pain will be managed throughout shift Individualized Care Needs: Pain management Anxieties, Fears or Concerns: Pain management Goal: Absence of Hospital-Acquired Illness or Injury Outcome: Ongoing, Not Progressing Intervention: Identify and Manage Fall Risk Flowsheets (Taken 11/03/20242199) Safety Promotion/Fall Prevention: activity supervised Intervention: Prevent Skin Injury Flowsheets Taken 11/03/20242199 by Manuelito Angeles Body Position: turned legs elevated Taken 11/01/20241999 by Javi Frank RN Skin Protection: incontinence pads utilized Intervention: Prevent and Manage VTE (Venous Thromboembolism) Risk Flowsheets (Taken 11/03/20242199) VTE Prevention/Management: bilateral SCDs (sequential compression devices) on Intervention: Prevent Infection Flowsheets (Taken 11/01/20241999 by Javi Frank, RN) Infection Prevention: environmental surveillance performed Goal: Optimal Comfort and Wellbeing Outcome: Ongoing, Not Progressing Intervention: Monitor Pain and Promote Comfort Flowsheets (Taken 11/03/20242108) Pain Management Interventions: medication (see MAR) Intervention: Provide Person-Centered Care Flowsheets (Taken 11/01/20241999 by Javi Frank RN) Trust Relationship/Rapport: care explained choices provided emotional support provided Problem: Skin Injury Risk Increased Goal: Skin Health and Integrity Outcome: Ongoing, Not Progressing Intervention: Optimize Skin Protection Flowsheets Taken 11/03/20242199 by Manuelito Angeles Head of Bed (HOB) Positioning: HOB at 30-45 degrees Taken 11/03/2024 1200 by Emanuel Villavicencio RN Activity Management: back to bed Taken 11/01/20241999 by Javi Frank RN Pressure Reduction Techniques: frequent weight shift encouraged Skin Protection: incontinence pads utilized Taken 11/01/2024 0849 by Felicia Miller RN Pressure Reduction Devices: heel offloading device utilized positioning supports utilized Intervention: Promote and Optimize Oral Intake Flowsheets (Taken 10/31/2024 1817 by Danitza Méndez, RN) Oral Nutrition Promotion: other (see comments) Nutrition Interventions: diet adjusted Problem: Fall Injury Risk Goal: Absence of Fall and Fall-Related Injury Outcome: Ongoing, Not Progressing Intervention: Identify and Manage Contributors Flowsheets (Taken 11/01/20241999 by Javi Frank, RN) Medication Review/Management: medications reviewed Self-Care Promotion: independence encouraged Intervention: Promote Injury-Free Environment Flowsheets (Taken 11/03/20242199) Safety Promotion/Fall Prevention: activity supervised Problem: Functional Deficit Goal: Improved Balance and Postural Control Outcome: Ongoing, Not Progressing Intervention: Optimize Balance and Safe Activity Flowsheets Taken 11/03/20242199 by Manuelito Angeles Safety Promotion/Fall Prevention: activity supervised Taken 11/03/2024 1200 by Emanuel Villavicencio RN Activity Management: back to bed Taken 11/01/20241999 by Javi Frank RN Self-Care Promotion: independence encouraged Goal: Optimal Cognitive Function Outcome: Ongoing, Not Progressing Intervention: Optimize Cognitive Function Flowsheets (Taken 11/01/20241999 by Javi Frank, RN) Sensory Stimulation Regulation: auditory stimulation minimized tactile stimulation minimized Environment Familiarity/Consistency: daily routine followed Self-Care Promotion: independence encouraged Goal: Optimal Coordination Outcome: Ongoing, Not Progressing Intervention: Optimize Motor Coordination and Function Flowsheets (Taken 11/01/20241999 by Javi Frank, RN) Self-Care Promotion: independence encouraged Goal: Improved Muscle Strength Outcome: Ongoing, Not Progressing Intervention: Optimize Muscle Strength Flowsheets Taken 11/03/2024 1200 by Emanuel Villavicencio RN Activity Management: back to bed Taken 11/02/2024 0600 by Javi Frank RN Activity Assistance Provided: assistance, 2 people Taken 11/01/20241999 by Javi Frank RN Self-Care Promotion: independence encouraged Goal: Improved Muscle Tone Outcome: Ongoing, Not Progressing Goal: Optimal Range of Motion Outcome: Ongoing, Not Progressing Intervention: Maintain Functional Joint Range Position Flowsheets Taken 11/03/20242199 by Manuelito Angeles Range of Motion: active ROM (range of motion) encouraged Taken 11/01/20241999 by Javi Frank RN Positioning/Transfer Devices: repositioning sheet Goal: Compensation for Sensory Deficit Outcome: Ongoing, Not Progressing Intervention: Optimize Sensory Function Flowsheets Taken 11/01/20241999 by Javi Frank RN Pressure Reduction Techniques: frequent weight shift encouraged Skin Protection: incontinence pads utilized Taken 11/01/2024 0849 by Felicia Miller RN Sensation Impairment Protection: insensate areas closely monitored Problem: Infection Goal: Absence of Infection Signs and Symptoms Outcome: Ongoing, Not Progressing Intervention: Prevent or Manage Infection Flowsheets (Taken 11/03/20242199) Isolation Precautions: precautions maintained Problem: Pain Acute Goal: Optimal Pain Control and Function Outcome: Ongoing, Not Progressing Intervention: Develop Pain Management Plan Flowsheets (Taken 11/03/20242108) Pain Management Interventions: medication (see MAR) Intervention: Prevent or Manage Pain Flowsheets (Taken 11/01/20241999 by Javi Frank RN) Sensory Stimulation Regulation: auditory stimulation minimized tactile stimulation minimized Medication Review/Management: medications reviewed * Assessment & Plan Note - Micheal Espinoza MD - 11/03/2024 6:35 PM EDT Associated Problem(s): Zygomatic arch fracture (CMS/HCC) 11/01: OR with ENT for ORIF right Zygomatic arch fracture * Assessment & Plan Note - Micheal Espinoza MD - 11/03/2024 6:35 PM EDT Associated Problem(s): Injury of globe of eye, right, initial encounter S/p canthotomy at OSH Optho following- will reach out for recheck of vision when patient consistently able to participatein exam * Assessment & Plan Note - Micheal Espinoza MD - 11/03/2024 6:35 PM EDT Associated Problem(s): Fall Admit SGT ICU [x] Tertiary 10/31 [] Audit-C [] Patient will need ITSS evaluation when appropriate * Assessment & Plan Note - Micheal Espinoza MD - 11/03/2024 6:35 PM EDT Associated Problem(s): TBI (traumatic brain injury) SAH, IVH NSGY consult DDAVP given at OSH * Assessment & Plan Note - Micheal Espinoza MD - 11/03/2024 6:35 PM EDT Associated Problem(s): Carotid stenosis Coat Padder and mca stenosis Resume home meds as appropriate * Assessment & Plan Note - Micheal Espinoza MD - 11/03/2024 6:35 PM EDT Associated Problem(s): ABLA (acute blood loss anemia) Recheck hemogram and transfuse as necessary * Assessment & Plan Note - Micheal Espinoza MD - 11/03/2024 6:35 PM EDT Associated Problem(s): Hyperglycemia Likely reactive to trauma, recheck and treat as necessary * Assessment & Plan Note - Micheal Espinoza MD - 11/03/2024 6:35 PM EDT Associated Problem(s): Acute respiratory failure with hypoxia Extubated 10/31/24 Placed on HFNC on 11/01/24 4L NC * Assessment & Plan Note - Micheal Espinoza MD - 11/03/2024 6:35 PM EDT Associated Problem(s): Lactic acidosis IVF resuscitation and recheck as necessary * Assessment & Plan Note - Micheal Espinoza MD - 11/03/2024 6:35 PM EDT Associated Problem(s): Electrolyte abnormality Hypomagnesemia (POA) Hypocalcemia (POA) Replace/treat and recheck as necessary * Assessment & Plan Note - Micheal Espinoza MD - 11/03/2024 6:35 PM EDT Associated Problem(s): MELISSA (acute kidney injury) Avoid nephrotoxic agents as able and renally dose medications IVF resuscitation as needed * Assessment & Plan Note - Micheal Espinoza MD - 11/03/2024 6:35 PM EDT Associated Problem(s): Hypothyroidism Resume home meds as appropriate * Assessment & Plan Note - Micheal Espinoza MD - 11/03/2024 6:35 PM EDT Associated Problem(s): Hypertension Resume home meds as appropriate * Assessment & Plan Note - Micheal Espinoza MD - 11/03/2024 6:35 PM EDT Associated Problem(s): Hyperlipidemia Resume home meds as appropriate * Assessment & Plan Note - Micheal Espinoza MD - 11/03/2024 6:35 PM EDT Associated Problem(s): CVA (cerebral vascular accident) ([facility]) PMH CVA and R sided deficits Resume home meds as appropriate * Assessment & Plan Note - Micheal Espinoza MD - 11/03/2024 6:35 PM EDT Associated Problem(s): Overweight (BMI 25.0-29.9) Could complicate hospitalization and mobility * Assessment & Plan Note - Micheal Espinoza MD - 11/03/2024 6:35 PM EDT Associated Problem(s): Debility PT/OT following Recommend ERIKA Possible PM&R consult for 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: recommend [id number] BID * Assessment & Plan Note - Micheal Espinoza MD - 11/03/2024 6:35 PM EDT Associated Problem(s): Fracture of right orbital floor 11/01: OR with ENT for right orbital floor fracture repair * Progress Notes - Reanna Suggs MD - 11/03/2024 2:47 PM EDT Images from the original note were not included. [facility] Department of Otolaryngology-Head and Neck Surgery Otolaryngology-HNS Progress Note 11/03/24 [place] Mata Subjective Subjective: HPI 24Hr Events: Patient remains confused but is able to be redirected. She reports vision loss in right eye. She is unable to see colors appropriately and does not reflexively blink on exam. Exam still shows upward gaze restriction on right compared to left eye. CT face reviewed by ENT without obviousissue with hardware placement. Recommend antibiotics to prevent hardware infection (Augmentin or primary team's choice). Review of Systems: Relevant review of systems was obtained as able and is negative unless stated above in HPI. Objective Objective: Vital signs: Vitals: 11/03/24 1400 BP: (!) 169/59 Pulse: 79 Resp: 18 Temp: SpO2: 100% Physical Exam: Physical Exam GEN: no apparent distress, well appearing female, confused but directable HEAD: Normocephalic, atraumatic EYES: Right conjunctival injection and periorbital ecchymosis. Post-op edema. Incision closed intact. EOM restricted in upward gaze on right eye, pupil reactive, no blink reflex EARS: Pinnae without laceration or deformity, no drainage NOSE: Nares patent, no drainage MOUTH: Mucous membranes pink and moist, tongue with full ROM NECK: Soft, supple, no palpable masses RESP: Symmetric chest rise, unlabored breathing CV: appears well perfused, no cyanosis MSK/EXT: no gross deformities, appropriate ROM NEURO: alert and oriented, no focal deficits PSYCH: Appropriate mood and affect Edited by: Reanna uSggs MD at 11/03/2024 1447 Intake/Output Summary (Last 24 hours) at 11/03/2024 1447 Last data filed at 11/03/2024 1400 Gross per 24 hour Intake 1220 ml Output 3900 ml Net -2680 ml Lines/Drains/Tubes: Patient Lines/Drains/Airways Status Active Airway None Output by Drain (mL) 11/01/24 07 - 11/01/24185811/01/241899 - 11/02/24 0659 11/02/24 07 - 11/02/24 18511/02/24 190 - 11/03/24 0659 11/03/24699 - 11/03/24 1447 Requested LDAs do not have output data documented. Labs in last 18 hours: CBC WBC 7.77 Hb 7.6 (L) Plt 193 Hct 24.4 (L) ANC 5.60 INR ??, PTT ??, Anti-Xa ?? MCV 89 BMP Na 142 Cl 109 (H) BUN 22 Glu 163 (H) K 4.1 Co2 25 Cr 0.78 Ca 7.9 (L) iCa ?? Mg 2.1, Phos 2.1 (L) Lactate ?? XR Foot Right 3+ Views Result Date: 11/03/2024 Impression: Degenerative ossification distal tip of the medial malleolus and degenerative posteriorand plantar calcaneal spur. No acute osseous or articular abnormality. CRITICAL RESULT: No. COMMUNICATION: Per this written report. Drafted by Zurdo Hsieh MD on 11/03/2024 12:48 PM Final report signed by Zurdo Hsieh MD on 11/03/2024 12:50 PM XR Ankle Right 3+ Views Result Date: 11/03/2024 Impression: Degenerative ossification distal tip of the medial malleolus and degenerative posteriorand plantar calcaneal spur. No acute osseous or articular abnormality. CRITICAL RESULT: No. COMMUNICATION: Per this written report. Drafted by Zurdo Hsieh MD on 11/03/2024 12:48 PM Final report signed by Zurdo Hsieh MD on 11/03/2024 12:50 PM XR Chest 1 View Result Date: 11/03/2024 Impression: Interval removal of right IJ central venous catheter. Possible leak of the nasogastric tube near the area of the fundus of the stomach. Progressive worsening aeration throughout the rightlung, which may represent asymmetric edema versus airspace disease. CRITICAL RESULT: No. COMMUNICATION: Per this written report. By electronically signing this report, I, the attending physician, attest that I have personally reviewed the images/data for the above examination(s) and agree with the final edited report. Drafted by Tim Bernal MD on 11/03/2024 8:27 AM Final report signed by Ethan Grande MD on 11/03/2024 9:24 AM FL Modified Barium Swallow Result Date: 11/02/2024 Impression: No aspiration or laryngeal penetration. Vallecular residue with pudding and cracker. Please see separate note by Speech therapy team for dietary recommendations. CRITICAL RESULT: No. COMMUNICATION: Per this written report. By electronically signing this report, I, the attending physician, attest that I have personally reviewed the images/data for the above examination(s) and agree with the final edited report. Drafted by Kerwin Kennedy III, MD on 11/02/2024 4:35 PM Final report signed by Carter Palomo MD on 11/02/2024 5:10 PM Radiographic Interpretation: No relevant imaging to review by ENT team. Medications reviewed. Vital signs reviewed. Labs reviewed. Assessment/Plan Assessment and Plan: Medical Problems Problem List * (Principal) Fall Zygomatic arch fracture (CMS/HCC) Overview Signed 10/30/2024 6:07 AM by Chirag Zambrano PA ENT consult May need OR Sinus precautions Injury of globe of eye, right, initial encounter Overview Signed 10/30/2024 6:08 AM by Chirag Zambrano PA Optho consult Lateral canthotomy at OSH TBI (traumatic brain injury) (CMS/HCC) Carotid stenosis ABLA (acute blood loss anemia) Hyperglycemia Acute respiratory failure with hypoxia Lactic acidosis Electrolyte abnormality MELISSA (acute kidney injury) (CMS/HCC) Hypothyroidism Hypertension Hyperlipidemia CVA (cerebral vascular accident) (CMS/HCC) Overweight (BMI 25.0-29.9) Debility Present on Admission: Zygomatic arch fracture (CMS/HCC) Injury of globe of eye, right, initial encounter Fall TBI (traumatic brain injury) (CMS/HCC) Carotid stenosis ABLA (acute blood loss anemia) Hyperglycemia Acute respiratory failure with hypoxia Lactic acidosis Electrolyte abnormality MELISSA (acute kidney injury) (CMS/HCC) Hypothyroidism Hypertension Hyperlipidemia CVA (cerebral vascular accident) ([facility]) Overweight (BMI 25.0-29.9) Debility Plan: [place] Mata is a 64 y.o. female with PMHx significant for CVA, R hemiparesis, carotid stent on Plavix and HTN who presents to ED intubated and sedated following unwitnessed fall. She was found to have right tripod fracture with non-displaced zygomatic arch and comminuted right orbital floor fracture. She underwent open reduction internal fixation of right ZMC and orbital floor fractures on 11/01. #S/p Right ZMC and orbital floor repair 11/01 - recommend Ophtho evaluation of vision loss/change in addition to entrapment concern - Erythromycin optho ointment TID - Recommend abx (Augmentin or primary team choic) for hardware in place after surgery - Sinus Precautions for 2 weeks total #Facial laceration - Use half-strength hydrogen peroxide on a Q-tip to clean the wound/sutures of crusting. Pat dry, then use thin layer of bacitracin twice daily on wound for 5 days. After 5 days, stop the antibiotic ointment, and use thin layer of Vaseline or Aquaphor until fully healed. - When showering, do not have wound in direct spray; let the soapy water run over the wound and do not scrub. Pat dry. May fully submerge in 3 days. -Once completely healed, use sunblock or physical protection (e.g., broad- brimmed hat) when out in the sun for 6 months to prevent hyperpigmentation. -Vitamin E or Mederma may be used in 1 month to reduce scarring. Edited by: Reanna Suggs MD at 11/03/2024 5145 Dispo: ENT will continue to follow Reanna Suggs MD General ENT Adult Inpatient Coverage and New Consults Pediatric ENT Inpatient Coverage and New Consults Head and Neck Cancer/Oncology Inpatient Coverage *If the above links do not work, please either go to the On-Call Finder in [facility] for appropriate coverage Cosigned by Yobani Benoit MD at 11/03/2024 4:02 PM EDT * Clinician Note - Claudia Guerrero PT - 11/03/2024 2:38 PM EDT Physical Therapy Attempt Patient Name: [place] Mata Today's Date: 11/03/2024 Patient was attempted to be seen by physical therapy 11/03/2024 for PT Treatment however bedside care in progress ([facility]). Physical therapy team will follow-up as schedule permits. Written by Claudia Guerrero PT on 11/03/24 at 2:38 PM. * Progress Notes - Micheal Espinoza MD - 11/03/2024 11:16 AM EDTAssociated Order(s): Critical Care Post-Procedure Diagnose(s): Electrolyte abnormality; Acute respiratory failure with hypoxia; Fall, initial encounter; Traumatic brain injury, with unknown loss of consciousness status, initial encounter Trauma ICU Daily Progress Note 11/03/24 [place] Mata HPI [place] Mata is a 64 y/o F with PMH CVA, R sided defecits on ASA/Plavix, HTN, HLP, CAD, and hypothyroidism. Presents s/p fall. Reversed with DDAVP. Injuries include: tSAH, IVH, R tripod fx with non-displaced ZMG, R globe hematoma s/p lateral canthotomy at OSH 11/01: s/p ORIF R zygomatic arch fx and R orbital wall fx repair Interval: No acute overnight events. GCS 15. She has been hemodynamically stable. On 4 liters NC. MBS completed yesterday, on easy to chew diet and bowel reg. UOP yesterday 2100, but today has had tohave straight cath 3 times per nurse. Afebrile, no leukocytosis. H/H down trend, however no overt signs of fever. BGL 163, Lovenox for DVT ppx. Phos was replaced Edited by: Manisha Maxwell PA at 11/03/2024 1345 Relevant review of systems was obtained as able and is negative unless stated above in HPI. Vital signs: Visit Vitals BP (!) 154/62 Pulse 76 Temp 36.7 ??C (98.1 ??F) (Axillary) Resp 23 Ht 1.6 m (5' 2.99 ) Wt 67.6 kg (149 lb 0.5 oz) SpO2 100% BMI 26.41 kg/m?? Smoking Status Former BSA 1.73 m?? Intake/Output Summary (Last 24 hours) at 11/03/2024 1835 Last data filed at 11/03/2024 1800 Gross per 24 hour Intake 1482 ml Output 4875 ml Net -3393 ml Physical Exam: Physical Exam HENT: Head: Normocephalic. Comments: Marley-orbital swelling of right eye S/p lateral canthotomy site of right eye Right Ear: External ear normal. Left Ear: External ear normal. Nose: Nose normal. Comments: DHT in place Mouth/Throat: Mouth: Mucous membranes are moist. Pharynx: Oropharynx is clear. Eyes: Comments: L pupil 3mm reactive to light, EOM intact Cardiovascular: Rate and Rhythm: Normal rate and regular rhythm. Pulses: Normal pulses. Pulmonary: Effort: Pulmonary effort is normal. Comments: 4L NC Abdominal: General: Abdomen is flat. Palpations: Abdomen is soft. Musculoskeletal: Cervical back: Normal range of motion. Right lower leg: No edema. Left lower leg: No edema. Skin: General: Skin is warm. Capillary Refill: Capillary refill takes less than 2 seconds. Neurological: General: No focal deficit present. Mental Status: She is oriented to person, place, and time. GCS: GCS eye subscore is 4. GCS verbal subscore is 5. GCS motor subscore is 6. Motor: Weakness (R side from previous CVA history) present. Comments: Obeys commands intermittently Psychiatric: Mood and Affect: Mood is anxious (Anxious about healing). Lines/Drains/Tubes: Patient Lines/Drains/Airways Status Active Airway None O2 Delivery Method: Nasal cannula Output by Drain (mL) 11/01/24699 - 11/01/24185811/01/24 190 - 11/02/24 0659 11/02/24 07 - 11/02/24 18511/02/24 190 - 11/03/24 0659 11/03/24 0700 - 11/03/24 1835 Requested LDAs do not have output data documented. Labs in last 18 hours: CBC WBC 9.52 Hb 8.8 (L) Plt 255 Hct 28.3 (L) ANC 5.60 INR ??, PTT ??, Anti-Xa ?? BMP Na 142 Cl 109 (H) BUN 22 Glu 163 (H) K 4.1 Co2 25 Cr 0.78 Ca 7.9 (L) iCa ?? Mg 2.1, Phos 2.1 (L) Lactate ?? LFT AST 32 AlkPhos 154 (H) T Prot 5.5 (L) ALK 46 (H) Bili 0.3 Alb ?? D.Bili ?? Lab Trends: H/H Results from last 7 days Lab Units 11/03/24 1513 11/03/24 0208 11/01/24 1809 HEMOGLOBIN g/dL 8.8* 7.6* 9.4* HEMATOCRIT % 28.3* 24.4* 30.8* INR Cr Results from last 7 days Lab Units 11/03/24 0208 11/01/24 1809 10/31/24 2349 CREATININE mg/dL 0.78 0.78 0.80 Radiology: I have personally reviewed and interpreted the most recent CXR and my interpretation is that it shows worsening aeration throughout right lung, which may represent edema vs airspace disease. Medications reviewed. Vital signs reviewed. Labs reviewed. Radiography reviewed. Assessment and Plan: Assessment & Plan Zygomatic arch fracture (CMS/HCC) Present on Admission: Yes 11/01: OR with ENT for ORIF right Zygomatic arch fracture Injury of globe of eye, right, initial encounter Present on Admission: Yes S/p canthotomy at OSH Optho following- will reach out for recheck of vision when patient consistently able to participatein exam Fall Present on Admission: Yes Admit SGT ICU [x] Tertiary 10/31 [] Audit-C [] Patient will need ITSS evaluation when appropriate TBI (traumatic brain injury) (CMS/HCC) Present on Admission: Yes SAH, IVH NSGY consult DDAVP given at OSH Carotid stenosis Present on Admission: Yes Coat Padder and mca stenosis Resume home meds as appropriate ABLA (acute blood loss anemia) Present on Admission: Yes Recheck hemogram and transfuse as necessary Hyperglycemia Present on Admission: Yes Likely reactive to trauma, recheck and treat as necessary Acute respiratory failure with hypoxia Present on Admission: Yes Extubated 10/31/24 Placed on HFNC on 11/01/24 4L NC Lactic acidosis Present on Admission: Yes IVF resuscitation and recheck as necessary Electrolyte abnormality Present on Admission: Yes Hypomagnesemia (POA) Hypocalcemia (POA) Replace/treat and recheck as necessary MELISSA (acute kidney injury) (CMS/HCC) Present on Admission: Yes Avoid nephrotoxic agents as able and renally dose medications IVF resuscitation as needed Hypothyroidism Present on Admission: Yes Resume home meds as appropriate Hypertension Present on Admission: Yes Resume home meds as appropriate Hyperlipidemia Present on Admission: Yes Resume home meds as appropriate CVA (cerebral vascular accident) (CMS/HCC) Present on Admission: Yes PMH CVA and R sided deficits Resume home meds as appropriate Overweight (BMI 25.0-29.9) Present on Admission: Yes Could complicate hospitalization and mobility Debility Present on Admission: Yes PT/OT following Recommend ERIKA Possible PM&R consult for 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: recommend [id number] BID Fracture of right orbital floor (CMS/HCC) Present on Admission: Unknown 11/01: OR with ENT for right orbital floor fracture repair To Do: - 2 pm cbc: Hgb improved to 8.8 from 7.6 - flomax, robitussin - place che - planned to remove dht, advance diet. Per nurse, poor intake, keep dobhoff and just decrease rate of feeds - lasix today 20mg - dantrolene BID per PM&R - am labs - warm compresses to right eye - xray right foot and ankle for pain- no acute abnormalities - PT/OT recs: Subacute rehab - downgrade to acute Edited by: Manisha Maxwell PA at 11/03/2024 1717 ANDREI Quiles Critical Care Performed by: Micheal Espinoza MD Authorized by: Micheal Espinoza MD Critical care provider statement: Critical care time (minutes): 30 Critical care time was exclusive of: Separately billable procedures and treating other patients Critical care was time spent personally by me on the following activities: Evaluation of patient's response to treatment, examination of patient, ordering and review of radiographic studies, orderingand performing treatments and interventions, ordering and review of laboratory studies and development of treatment plan with patient or surrogate I assumed subsequent critical care for this patient from a provider in my division, on the same day: no Comments: Seen and examined with the Advanced Practice Provider ([facility]). I attest to being personally involved in more than half the total time in patient care including obtaining and reviewing the history, performing and documenting the exam, and medical decision making. GCS 14/15. Occasionally somewhat confused. Otherwise neurologically appropriate. Continuing to wean supplemental oxygen therapy. Aggressive pulmonary hygiene, nebulizer therapy. Hemodynamically stable. Not requiring vasopressor support. Continue noninvasive monitoring. Hypophosphatemia-replaced per ICU protocol. Continue physical therapy and occupational therapy. Recommending subacute rehab. Chemical VTE prophylaxis. * Consults - Michel Luna - 11/03/2024 10:35 AM EDT Pastoral Care Note [employer] D[employer] visited with patient and family, sister and niece, at bedside and provided emotional support and a prayer per family request. Pastoral care will continue to be available as needed. Referral From: [employer] D[employer] Initiated Pastoral Care Provided For: Patient, Sibling(s), Extended family Patient Profile: Consult Reasons: Emotional support, Family support Spiritual Assessment: Support Systems/ Spiritual Resources: [place], Family, Prayer Spiritual Needs: Emotional support, Prayer, Spiritual support Spiritual Issues: Trauma/ crisis Interventions: Interventions Provided: Emotional support, Family support, Prayer, Identify evangelical/ spiritual coping, Introduced Patient/Family to [employer] Services, Supportive Listening, Spiritual support Pastoral Care Outcomes: Patient Outcomes: Demonstrates lower level of Anxious(ness), Is knowledgeable about [employer], Identifies spiritual or evangelical practices as helpful, Appreciative of [employer] Support * Consults - Carol Ann Dai - 11/03/2024 7:52 AM EDTAssociated Order(s): IP CONSULT TO PHYSICAL MEDICINE REHAB PHYSICAL MEDICINE & REHABILITATION INPATIENT CONSULT NOTE Patient: [place] Mata : 1960 PCP: Aman Hernandez MD at [address] [facility] [address] / [facility] [id number] Payor: [employer] MEDICARE / Plan: [employer] MEDICARE / Product Type: *No Product type* / Date of Service: 11/03/24 cc: Fall Reason for Consultation: functional evaluation History of Present Illness: [place] Mata is a 64 y.o. female w/PMH of CVA (R sided deficits), HTN, HLP, CAD, and hypothyroidism who presented to on 10/30/2024 (LOS: 4d) from OSH after a fall. Injuries after the fall include IVH, SAH, R tripod fx with non-displaced ZMG, R globe hematoma s/p lateral canthotomy at OSH. Patient was staying at her sister's house when she fell and was found immediately face down. PMH: Past Medical History[1] PSH: Surgical History[2] Allergies: Allergies[3] Home Medications: Current Outpatient Medications Medication Instructions amLODIPine (NORVASC) 5 mg, Oral, Daily Aspirin Low Dose 81 mg, Daily atorvastatin (LIPITOR) 40 mg, Daily clopidogrel (PLAVIX) 75 mg FLUoxetine (PROZAC) 20 mg, Every morning folic acid (FOLVITE) 0.8 mg, Daily levothyroxine (SYNTHROID, LEVOXYL) 75 mcg, Daily mirtazapine (REMERON) 15 mg, Nightly oxybutynin XL (DITROPAN-XL) 5 mg, Daily pramipexole (Mirapex) 1 MG tablet Take 1 tablet by mouth 3 times a day as needed. QUEtiapine (SEROQUEL) 150 mg, Nightly Active Medications: Continuous: Current Continuous Medications[4]Scheduled: Current Scheduled Medications[5]PRN: Current PRN Medications[6] Family history: reviewed and noncontributory to presenting illness Family History[7] Social history: obtained from patient's niece and sister Marital Status: legally , not involved Children: 2 Previous Residence: lives alone in [place], [place] in a one story house with 3 steps to enter Anticipated Residence: home Support: 7 siblings and niece live within [address] Tobacco: before her stroke, smoked 1.5 ppd for 48 years Alcohol: liquor, unknown amount Drugs: denies Travel: denies international travel in the last 6 months 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 After patient's stroke in June she went to [facility] until August. After discharge, she had 24/7 care with hired caregivers until about 3 weeks ago. Since then, family members have been there daily and patient has been alone at night. IADLs Dependent for all IADL's. One family member would stop by the house daily to assist. Patient was alone every evening for the past three weeks. Prior to this she had 24/7 caregivers Current: Mobility Max assist to dependent for bed mobility, transfers Min to max assist for balance Self-Care Max assist to dependent for self care ROS: 14 point ROS negative other than mentioned above in HPI. OBJECTIVE: Labs: Lab Results Component Value Date WBC 7.77 11/03/2024 WBC 9.73 11/01/2024 WBC 9.34 10/31/2024 HGB 7.6 (L) 11/03/2024 HGB 9.4 (L) 11/01/2024 HGB 8.1 (L) 10/31/2024 HCT 24.4 (L) 11/03/2024 MCV 89 11/03/2024 PLT 193 11/03/2024 PLT 198 11/01/2024 PLT 179 10/31/2024 Lab Results Component Value Date NA 142 11/03/2024 NA 142 11/01/2024 NA 143 10/31/2024 K 4.1 11/03/2024 K 4.4 11/01/2024 K 4.0 10/31/2024 CL 109 (H) 11/03/2024 CL 109 (H) 11/01/2024 CL 111 (H) 10/31/2024 BUN 22 11/03/2024 BUN 14 11/01/2024 BUN 16 10/31/2024 CREATININE 0.78 11/03/2024 CREATININE 0.78 11/01/2024 CREATININE 0.80 10/31/2024 CALCIUM 7.9 (L) 11/03/2024 CALCIUM 8.7 (L) 11/01/2024 CALCIUM 7.7 (L) 10/31/2024 GLUCOSE 163 (H) 11/03/2024 GLUCOSE 113 (H) 11/01/2024 GLUCOSE 133 (H) 10/31/2024 GLUCOSE 145 (H) 10/30/2024 GLUCOSE 124 (H) 10/30/2024 Lab Results Component Value Date ALT 46 (H) 11/03/2024 ALT 84 (H) 11/01/2024 ALT 24 07/19/2024 AST 32 11/03/2024 AST 72 (H) 11/01/2024 AST 27 07/19/2024 ALKPHOS 154 (H) 11/03/2024 ALKPHOS 194 (H) 11/01/2024 ALKPHOS 105 05/22/2023 BILITOT 0.3 11/03/2024 BILITOT 0.7 11/01/2024 BILITOT 0.3 07/19/2024 Lab Results Component Value Date HGBA1C 5.7 (H) 07/20/2024 HGBA1C 6.0 (H) 05/22/2023 HGBA1C 6.3 (H) 06/10/2021 Cultures: Results No results found for the last 48 hours. Imaging reports reviewed: No MRI head results found for the past [address] Head wo IV Contrast Result Date: 10/31/2024 1. Stable intraventricular hemorrhage. 2. Stable ventriculomegaly which may be due to central predominant brain volume loss or normal pressure hydrocephalus. 3. Stable chronic appearing lacunar infarcts and probable old left occipital infarct. CRITICAL RESULT: No. COMMUNICATION: Per this written report. Drafted by Gutierrez Schaefer MD on 10/31/2024 2:35 AM Final report signed by Gutierrez Schaefer MD on 10/31/2024 2:[address] Head wo IV Contrast Result Date: 10/30/2024 1. Stable intraventricular hemorrhage which is similar to the recent CT head dated 10/30/2024 but increased compared to prior CT head dated 10/29/2024. Confluent periventricular hypodensity could represent nonspecific white matter changes due to chronic microvascular ischemia versus transependymal edema. 2. Encephalomalacic area in the left occipital lobe likely represent sequelae of remote ischemic injury. Lacunar infarcts in bilateral basal ganglia. 3. No calvarial fracture is seen. Fractures of the right orbital benites and the right maxillary sinus with hemosinus. Further evaluation with a CT face is recommended. CRITICAL RESULT: No. COMMUNICATION: Per this written report. Drafted by Mariia Domínguez MD on 10/30/2024 6:51 PM Final report signed by Mariia Domínguez MD on 10/30/2024 7:04 PM Encounter Date: 10/30/24 ECG Adult Result Value EKG DIAGNOSIS CLASS Abnormal Ventricular Rate 85 Atrial Rate 85 OK Interval 146 QRSD Interval 84 QT Interval 394 QTC Interval 468 P [place] 82 R [place] 51 T Wave [place] 184 Diagnosis Poor data quality, interpretation may be adversely affected Diagnosis Normal sinus rhythm Diagnosis Possible Left atrial enlargement Diagnosis Possible Anterior infarct , age undetermined Diagnosis T wave abnormality, consider inferolateral ischemia Diagnosis Abnormal ECG Diagnosis Need clinical information and correlation Diagnosis Confirmed by Tristan Cooper ([id number]) on 10/30/2024 12:08:55 PM *Note: Due to a large number of results and/or encounters for the requested time period, some results have not been displayed. A complete set of results can be found in Results Review. Current diet (full): Dietary Orders (From admission, onward) Start Ordered 11/02/24 1751 Adult diet Diet texture: Easy to Chew 7 Diet effective now Comments: medications crushed w/ puree/pudding (IDDSI 4) References: IDDSI Diet Texture Guide Question: Diet texture Answer: Easy to Chew 7 11/02/24 1750 11/02/24 1019 Free Water Until discontinued Question Answer Comment Amount: 250mL Route: small bore feeding tube Frequency: once 11/02/24 1019 10/31/24 1441 Tube Feeding Tube feeding formula: Impact Peptide 1.5; Route of feeding: Nasoduodenal; Tube feeding schedule: Continuous; Tube feeding continous initial Rate (ml/hr): 20; Advance by (ml): 10; Advance every (hr): 6; Tube feeding continuous goal rat... (Diet - Tube Feeding Adult) Diet effective now Comments: Free water per team Question Answer Comment Tube feeding formula: Impact Peptide 1.5 Route of feeding: Nasoduodenal Tube feeding schedule: Continuous Tube feeding continous initial Rate (ml/hr): 20 Advance by (ml): 10 Advance every (hr): 6 Tube feeding continuous goal rate (mL/hr): 65 Tube feeding continuous frequency: Continuous 10/31/24 1440 PHYSICAL EXAM Visit Vitals BP (!) 140/59 Pulse 72 Comment: post treatment HR 75 Temp 36.9 ??C (98.5 ??F) (Oral) Ht 1.6 m (5' 2.99 ) Wt 67.6 kg (149 lb 0.5 oz) SpO2 98% BMI 26.41 kg/m?? Gen: NAD, reclining in chair Eyes: no scleral icterus, R eye swollen shut Neck: supple, no tracheostomy ENT: nares patent, mucous membranes moist CV: regular rate, no BLE edema Resp: nonlabored breathing, no wheezing GI: abd soft, NTTP : no che Skin: warm, dry Heme/lymph/immune: no bruising, no lymphadenopathy Psychiatric: confused, somnolent MSK: - Has antigravity of LUE - RUE 0/5 - LLE: able to move ankle, strength exam impaired by cognition - RLE: 0/5, MAS 3/4 Neurological: Awake, speech fluent, oriented to person, not oriented to place, time, or situation, not following commands Unable to determine sensation to light touch 2/2 cognition Future Appointments Date Time Provider Department Center 11/21/2024 12:45 PM Navya Woody MD [facility] Mobility Orders Mobility Protocol: Ortho/Trauma/Spine Mobility Guidelines Spinal Precautions: No cranial, cervical or thoracolumbar spinal precautions necessary Extremity Precautions: No Extremity Precautions Other mobility precautions: Other precautions Other mobility precautions: Other Other: Keep HOB 30 Degrees, OK to Reverse Trendelenburg. ASSESSMENT/PLAN: Albania Mata is a 64 y.o. female w/PMH of of CVA (R sided deficits), HTN, HLP, CAD, and hypothyroidism who presented to on 10/30/2024 (LOS: 4d) from OSH after a fall. Injuries after the fall include IVH, SAH, R tripod fx with non- displaced ZMG, R globe hematoma s/p lateral canthotomy at OSH. Fall, unknown mechanism (sister found her immediately after face down) - IVH (Plavix was reversed with DDAVP) repeat CTH showed enlarged IVH, 1 unit of PLT administered - Spasticity -- increased tone in RLE. Recommend Dantrolene 25mg BID - Neurogenic bladder, che placed - R tripod with non-displaced zygomatic arch and comminuted R orbital fx S/p R zygomatic arch and orbital floor repair (11/01) - Dysphagia - MBS performed, recommended easy to chew foods - functional decline - gait impairment - ADL impairment - cognitive impairment - HTN, History of CVA with R sided hemiparesis with acute onset spasticity - Hypothyroidism Recommendations: Dantrolene 25mg BID Thank you for allowing us to participate in the care of your patient. We will continue to follow. Please page [phone] with any questions, or resident on-call if after hours or on weekends. [facility] Physical Medicine & Rehabilitation [1] Past Medical History: Diagnosis Date Depression Fibromyalgia Hx of degenerative disc disease Hyperlipidemia Hypertension Neuropathy Stroke (CMS/HCC) [2] Past Surgical History: Procedure Laterality Date CAROTID STENT LUNG SURGERY ORAL SURGERY RENAL ARTERY STENT REPLACEMENT TOTAL HIP LATERAL POSITION TONSILLECTOMY [3] Allergies Allergen Reactions Cephalosporins Other - please document in the comment field Other Other - please document in the comment field Vicryl sutures Penicillin G Unknown - Patient states they do not know rxn details Penicillins Other - please document in the comment field [4] [5] acetaminophen, 1,000 mg, Nasogastric, q6h BACILIO amLODIPine, 2.5 mg, Oral, Daily atorvastatin, 40 mg, Nasogastric, Nightly barium sulfate, 120 mL, Oral, Once in imaging barium sulfate, 90 mL, Oral, Once in imaging enoxaparin, 30 mg, Subcutaneous, BID FLUoxetine, 20 mg, Nasogastric, Daily ipratropium-albuterol, 3 mL, Nebulization, q6h RT levETIRAcetam, 1,000 mg, Nasogastric, BID levothyroxine, 75 mcg, Nasogastric, q AM mupirocin, 1 Application, Each Nostril, BID polyethylene glycol, 17 g, Nasogastric, BID QUEtiapine, 50 mg, Nasogastric, Nightly senna-docusate, 2 tablet, Nasogastric, BID [6] hydrALAZINE, 10 mg, Intravenous, q4h PRN HYDROmorphone, 0.25 mg, Intravenous, q2h PRN OR HYDROmorphone, 0.5 mg, Intravenous, q2h PRN hydrOXYzine pamoate, 25 mg, Oral, q8h PRN oxyCODONE, 5 mg, Oral, q4h PRN [7] Family History Problem Relation Name Age of Onset Diabetes Mother Diabetes Sister Diabetes Brother Cosigned by Benito Stiles DO at 11/04/2024 8:43 AM EDT Associated attestation - Benito Stiles DO - 11/04/2024 8:43 AM EDT I saw and evaluated the patient with the medical/DIGITAL CONTROLS TECHNICAL OFFICER/PA student. I discussed the case with the medical/DIGITAL CONTROLS TECHNICAL OFFICER/PA student and agree with the findings and plan as documented. I personally performed the Examand Medical Decision Making.' I reviewed the above tests: CBC with stable anemia, CMP with hypocalcemia and mildly elevated ALT, EKG, imaging I obtained additional history from the patient's sister regarding elements of the social history and HPI who state that her spasticity started mildly after her initial stroke but then improved, but has worsened since needing to present to the hospital. I discussed the management of this case with the patient's occupational therapist regarding her spasticity. Drug therapy requiring intensive monitoring for hepatotoxicity. Physical exam: lethargic, RUE and RLE increased tone MAS 2/4 Assessment/Plan: - agree with dantrolene 25mg po bid - please check LFTs ~weekly while on dantrolene * Care Plan - [place] Crump - 11/03/2024 3:47 AM EDT Problem: Adult Inpatient Plan of Care Goal: Plan of Care Review 11/03/2024345 by [place] Crump Outcome: Ongoing, Progressing 11/03/2024345 by [place] Crump Outcome: Ongoing, Progressing Flowsheets (Taken 11/03/2024345) Progress: improving Plan of Care Reviewed With: patient sibling Goal: Patient-Specific Goal (Individualized) 11/03/2024345 by [place] Crump Outcome: Ongoing, Progressing 11/03/2024345 by [place] Crump Outcome: Ongoing, Progressing Goal: Absence of Hospital-Acquired Illness or Injury 11/03/2024345 by [place] Crump Outcome: Ongoing, Progressing 11/03/2024345 by [place] Crump Outcome: Ongoing, Progressing Goal: Optimal Comfort and Wellbeing 11/03/2024345 by [place] Crump Outcome: Ongoing, Progressing 11/03/2024345 by [place] Crump Outcome: Ongoing, Progressing Problem: Skin Injury Risk Increased Goal: Skin Health and Integrity 11/03/2024345 by [place] Crump Outcome: Ongoing, Progressing 11/03/2024345 by [place] Crump Outcome: Ongoing, Progressing Problem: Fall Injury Risk Goal: Absence of Fall and Fall-Related Injury 11/03/2024345 by [place] Crump Outcome: Ongoing, Progressing 11/03/2024345 by [place] Crump Outcome: Ongoing, Progressing Problem: Functional Deficit Goal: Improved Balance and Postural Control 11/03/2024345 by [place] Crump Outcome: Ongoing, Progressing 11/03/2024345 by [place] Crump Outcome: Ongoing, Progressing Goal: Optimal Cognitive Function 11/03/2024345 by [place] Crump Outcome: Ongoing, Progressing 11/03/2024345 by [place] Crump Outcome: Ongoing, Progressing Goal: Optimal Coordination 11/03/2024345 by [place] Crump Outcome: Ongoing, Progressing 11/03/2024345 by [place] Crump Outcome: Ongoing, Progressing Goal: Improved Muscle Strength 11/03/2024345 by [place] Crump Outcome: Ongoing, Progressing 11/03/2024345 by [place] Crump Outcome: Ongoing, Progressing Goal: Improved Muscle Tone 11/03/2024345 by [place] Crump Outcome: Ongoing, Progressing 11/03/2024345 by [place] Crump Outcome: Ongoing, Progressing Goal: Optimal Range of Motion 11/03/2024345 by [place] Crump Outcome: Ongoing, Progressing 11/03/2024 034 by [place] Crump Outcome: Ongoing, Progressing Goal: Compensation for Sensory Deficit 11/03/2024345 by [place] Crump Outcome: Ongoing, Progressing 11/03/2024 034 by [place] Crump Outcome: Ongoing, Progressing Problem: Infection Goal: Absence of Infection Signs and Symptoms 11/03/2024345 by [place] Crump Outcome: Ongoing, Progressing 11/03/2024345 by [place] Crump Outcome: Ongoing, Progressing Problem: Pain Acute Goal: Optimal Pain Control and Function Outcome: Ongoing, Progressing * Progress Notes - Jeane Cowan - 11/02/2024 3:05 PM EDT Case Management Adult Progress Note Albania Mata 64 y.o. female CSN: [id number] Admission: 10/30/2024 2:57 AM Primary Problem: Fall Anticipated Discharge Date: TBD Pt is with subacute rehab recs. SW presented to bedside to discuss with pt, pt was receiving bedside care at that time. SW discussed rehab recs with family who were waiting outside pt's room. Pt's son stated that family is agreeable to rehab at [facility]. Referrals sent on this date. SW/CM will continue to follow for resource needs and dispo p coretta. COLETTE Restrepo, INTERLOCKING AND SIGNAL MECHANIC Trauma/General Surgery ICU * Progress Notes - Renetta Mascorro CCC-DIRECT CARE PROFESSIONAL - 11/02/2024 3:00 PM EDT Speech Language Pathology INITIAL MODIFIED BARIUM SWALLOW STUDY Patient Name: Albania Mata Age: 64 y.o. Today's Date: 11/02/2024 Recommendations: No aspiration. OK to begin up to easy to chew solids (IDDSI 7), thin liquids liquids (IDDSI 0)- NO STRAWS 2/2 sinus precautions. Medications crushed w/ puree/pudding (IDDSI 4). History Medical History: Albania Mata is a 64 y/o F with PMH CVA, R sided defecits on ASA/Plavix, HTN, HLP, CAD, and hypothyroidism. Presents s/p fall. Reversed with DDAVP. Injuries include: tSAH, IVH, R tripod fx with non-displaced ZMG, R globe hematoma s/p lateral canthotomy at OSH 11/01: s/p ORIF R zygomatic arch fx and R orbital wall fx repair CSE 11/02- continue NPO w/ DHT, pending MBS Current diet: NPO diet Tube Feeding Tube feeding formula: Impact Peptide 1.5; Route of feeding: Nasoduodenal; Tube feedingschedule: Continuous; Tube feeding continous initial Rate (ml/hr): 20; Advance by (ml): 10; Advanceevery (hr): 6; Tube feeding continuous goal rat... Subjective Patient arrived awake and alert. Agreeable. Concerned about taste of barium. GCS 13 Objective Respiratory Status: RA Location of procedure: PAV H radiology suite/ Lateral View Oral phase -Lip closure: Interlabial escape -Tongue Control During Bolus Hold: Not assessed -Bolus Preparation/Mastication: Slow and prolonged with complete bolus recollection -Bolus Transport/Lingual Motion: Slowed -Oral Residue/Amount: Less than half the bolus remaining -Oral Residue Location: Tongue and Palate Pharyngeal phase: -Swallow initiation: WFL -Soft palate elevation: No bolus between soft palate/pharyngeal wall -Laryngeal elevation: Complete -Anterior hyoid excursion: Complete -Epiglottic inversion: Complete -Vestibule closure: Complete -Stripping wave: Present -BOT retraction: Incomplete - Pharyngeal residue amount: Collection - Pharyngeal residue location: BOT and Valleculae -UES: Complete distension PENETRATION/ASPIRATION: Consistency & Method of Administration 1 2 3 4 5 6 7 8 Comments Thin tsp/cup (IDDSI 0) [x] [] [] [] [] [] [] [] Thin sequential cup (IDDSI 0) [x] [] [] [] [] [] [] [] Pudding (IDDSI 4) [x] [] [] [] [] [] [] [] Dry solid (IDDSI 7) [x] [] [] [] [] [] [] [] Description of Penetration/Aspiration Scale: 1. Material does not enter airway. 2. Material enters airway, remains above the vocal folds, and is ejected from the airway. 3. Material enters airway, remains above the vocal folds, and is not ejected from the airway. 4. Material enters airway, contacts the vocal folds, and is ejected from the airway. 5. Material enters airway, contacts the vocal folds, and is not ejected from the airway. 6. Material enters airway, passes below the vocal folds, and is ejected from trachea. 7. Material enters airway, passes below the vocal folds, and is not ejected from the trachea despite effort. 8. Material enters airway, passes below the vocal folds, and no effort is made to eject. (Gin Mcgowan et al. A penetration-aspiration scale. Dysphagia. 1996;11(2):93-8.) Assessment Patient presents with mild oropharyngeal dysphagia (Dysphagia Outcome Severity Scale- SHERRY Level 5), acutely following fall. Oral dysphagia is characterized by incomplete chewing/mashing of solids, slowed bolus transport. Pharyngeal dysphagia is characterized by intact airway protection and pharyngeal inefficiency. Inefficiency 2/2 incomplete base of tongue retraction that results in a collectionof vallecular residue greatest following pudding and dry solid. Patient unable to follow commands for postural maneuvers. Able to demonstrate double swallows inconsistently. Recommend beginning with up to easy to chew solids (IDDSI 7), thin liquids. No straws 2/2 sinus precautions. Medications crushed w/ puree/pudding (IDDSI 4). Prognosis: Good for improved function with skilled speech pathology services focusing on stated goals. Patient Education: verbal education Results and recommendations of this evaluation were communicated to: RN and RN/Team Plan / Recommendations Diet recommendations: Easy to chew solids (IDDSI 7), Thin liquids (IDDSI 0)- NO STRAWS 2/2 to sinusprecautions. Medications crushed w/ puree/pudding (IDDSI 4). Therapy Frequency: 1x-2 week for 2 weeks F/u Imaging: given changes in medical and/or respiratory status Goals Tolerate easy to chew solids (IDDSI 7), thin liquids (IDDSI 0)- NO STRAWS w/o overt s/s of aspiration and/or respiratory distress Tx: base of tongue retraction * Progress Notes - SharonBridgett danielson Samreen - 11/02/2024 2:20 PM EDT Occupational Therapy Treatment Patient Name: Albania Mata Today's Date: 11/02/2024 OT Discharge Recommendations: Subacute rehab Equipment Recommended: Defer to facility Subjective Brother and son very supportive at b/s, pt repeatedly asking when she will be able to return home Participants in Care Family/Caregiver Present: Yes Family/Caregiver: Adult Son, Other (Specify) (brother) Brand Representative: Not Applicable Presentation Oxygen Therapy: Supplemental oxygen O2 Flow Rate (L/min): 4 L/min Lines and Tubes: Intravenous access, Telemetry, Dobhoff Pre-Session: Supine, Head of bed elevated, Lines intact Pre-Session Comments: RN agreeable to therapy session. Post-Session: Sitting in chair, Call light in reach, RN notified, Lines intact, Chair alarm Post-Session Comments: Positioned Pt for comfort. Family present at bedside. Precautions Medical Precautions: Fall precautions, Sinus Objective Pain Pt with complaints of pain- all over- RN aware, pt was positioned for comfort Delirium Screening RASS: Alert and calm Confusion Assessment Method-ICU (CAM-ICU/PCAM-ICU) Feature 3: Altered Level of Consciousness: Negative Cognition Cognition Overall Cognitive Status: Impaired Arousal/Alertness: Delayed responses to stimuli Mood/Behavior: Alert, Confused Orientation Level Comments: pt was oriented to self, pt required max cues and increase time to state month of -, unable to state the day in July, however was able to state year, pt was unable to state current month or year, pt was able to ID family members in room, pt with much improved awareness of situation, pt initiating and conversing with therapy staff appropriately, pt trying to make funny comments Let's go out to dinner , pt repeatedly asing when can I go home Single Step Commands: With increased time, With repetition, 75% of the time Multi-Step Commands: Unable to follow commands Method of Communication: Verbal Safety Judgment: Decreased awareness of need for assistance Awareness of Errors: Assistance required to identify errors made, Assistance required to correct errors made Deficit Awareness: Decreased awareness of deficits Attention Span: Difficulty attending to directions Therapeutic Activity (39 minutes) pt was seen for 3 units of functional activity tolerance this date (all bed mobility and transfer training performed all serves in preparation for further participation of self cares and further mobility), upon entering room pt was rec'd supine in bed, family at b/s and very supportive, pt alert and eager to work with therapy staff, pt ultimately required max assist x 2 to transition to EOB with max cues to advance LE's off foot of bed as well as to transition torso into upright position - reaching across midline with left UE to utilize bedrail, once EOB pt presenting with significant left lateral and posterior lean requiring max assist x 1-2 for balance, b/s chair was placed in front of ptand UE's were assisted onto back of chair for support, pt was then able to maintain unsupported sitting x 30 seconds in this position, however due to fatigue pt unable to further tolerate EOB balanceactivities, pt was assisted into standing with max assist x 2 (CUTTER AND PRESSER x 2) with max cues for b/l hand and feet placement, pt was then transferred over to b/s chair, pt with significant difficulty weight shifting and advancing LE's forward - ultimately requiring max assist x 2 (CUTTER AND PRESSER x 2), once in chair additional time spent positioning pt appropriately with pillows for comfort and pressure relief, allpt needs met, all pt/family questions answered and all pt needs met prior to OT exiting room Self-Care Interventions Self Care/Home Management (ADLs) Time Entry: 25 Feeding Feeding Interventions: unable to perform Grooming Grooming Level of Assistance: Maximum assistance Bathing UE Bathing Level of Assistance: Dependent LE Bathing Level of Assistance: Dependent UE Dressing UE Dressing Level of Assistance: Dependent Lower Extremity Dressing Pants Level of Assistance: Dependent Sock Level of Assistance: Dependent Toileting Toileting Level of Assistance: Dependent Assessment Pt is progressing towards all goals est., pt presenting with much improved overall alertness and participation with therapy staff, improved conversation however conversation is confused at times, pt able to transfer to b/s chair with max assist x 2 (CUTTER AND PRESSER x 2) however mobility limited due to increasetone noted throughout right LE, pt continues to be most appropriate to transition to an inpt subacute rehab facility to continue to focus on overall mobility, transfer training, self care retraining,balance retraining, as well as overall cognition, as pt is a very HIGH FALL risk and is unable to safely execute a self care routine, family at [facility] are incredibly supportive to pt and will be available to assist post discharge to home, OT will continue to follow OT Recommendations Discharge Destination: Subacute rehab Discharge Equipment: Defer to facility Plan Transfer training, self cares Goals OT GOAL DETAILS Goal Established Date Time Frame Goal Status OT Goal 1: pt will consistently be oriented x 4 x 3 tx sessions 10/31/24 2 weeks OT Goal 2: pt will consistently follow 1 step commands with 100% accuracy 10/31/24 2 weeks OT Goal 3: pt will complete bed to commode transfers with mod assist x 2 utilizing AAD PRN 10/31/24 2 weeks OT Goal 4: pt will complete simple grooming tasks with mod assist x 1 utilizing compensatory techniques as needed while seated EOB 10/31/24 OT Goal 5: pt will participate in UE HEP to increase overall strength for increase independence with self cares and mobility 10/31/24 2 weeks Written by Bridgett Cha on 11/02/24 at 2:20 PM. * Assessment & Plan Note - Micheal Espinoza MD - 11/02/2024 2:18 PM EDT Associated Problem(s): Zygomatic arch fracture (CMS/HCC) To OR with ENT on 11/01/24 * Assessment & Plan Note - Micheal Espinoza MD - 11/02/2024 2:18 PM EDT Associated Problem(s): Injury of globe of eye, right, initial encounter S/p canthotomy at OSH Optho following * Assessment & Plan Note - Micheal Espinoza MD - 11/02/2024 2:18 PM EDT Associated Problem(s): Fall Admit SGT ICU [x] Tertiary 10/31 [] Audit-C [] Patient will need ITSS evaluation when appropriate * Assessment & Plan Note - Micheal Espinoza MD - 11/02/2024 2:18 PM EDT Associated Problem(s): TBI (traumatic brain injury) SAH, IVH NSGY consult DDAVP given at OSH * Assessment & Plan Note - Micheal Espinoza MD - 11/02/2024 2:18 PM EDT Associated Problem(s): Carotid stenosis Coat Padder and mca stenosis Resume home meds as appropriate * Assessment & Plan Note - Micheal Espinoza MD - 11/02/2024 2:18 PM EDT Associated Problem(s): ABLA (acute blood loss anemia) Recheck hemogram and transfuse as necessary * Assessment & Plan Note - Micheal Espinoza MD - 11/02/2024 2:18 PM EDT Associated Problem(s): Hyperglycemia Likely reactive to trauma, recheck and treat as necessary * Assessment & Plan Note - Micheal Espinoza MD - 11/02/2024 2:18 PM EDT Associated Problem(s): Acute respiratory failure with hypoxia Extubated 10/31/24 Placed on HFNC on 11/01/24 2L NC * Assessment & Plan Note - Micheal Espinoza MD - 11/02/2024 2:18 PM EDT Associated Problem(s): Lactic acidosis IVF resuscitation and recheck as necessary * Assessment & Plan Note - Micheal Espinoza MD - 11/02/2024 2:18 PM EDT Associated Problem(s): Electrolyte abnormality Hypomagnesemia (POA) Hypocalcemia (POA) Replace/treat and recheck as necessary * Assessment & Plan Note - Micheal Espinoza MD - 11/02/2024 2:18 PM EDT Associated Problem(s): MELISSA (acute kidney injury) Avoid nephrotoxic agents as able and renally dose medications IVF resuscitation as needed * Assessment & Plan Note - Micheal Espinoza MD - 11/02/2024 2:18 PM EDT Associated Problem(s): Hypothyroidism Resume home meds as appropriate * Assessment & Plan Note - Micheal Espinoza MD - 11/02/2024 2:18 PM EDT Associated Problem(s): Hypertension Resume home meds as appropriate * Assessment & Plan Note - Micheal Espinoza MD - 11/02/2024 2:18 PM EDT Associated Problem(s): Hyperlipidemia Resume home meds as appropriate * Assessment & Plan Note - Micheal Espinoza MD - 11/02/2024 2:18 PM EDT Associated Problem(s): CVA (cerebral vascular accident) ([facility]) PMH CVA and R sided deficits Resume home meds as appropriate * Assessment & Plan Note - Micheal Espinoza MD - 11/02/2024 2:18 PM EDT Associated Problem(s): Overweight (BMI 25.0-29.9) Could complicate hospitalization and mobility * Assessment & Plan Note - Micheal Espinoza MD - 11/02/2024 2:18 PM EDT Associated Problem(s): Debility PT/OT following Recommend ERIKA Possible PM&R consult for 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 * Significant Event - Eva Emmanuel MD - 11/02/2024 11:48 AM EDT ENT requesting Ophthalmology evaluation for pupillary changes noted in the OR yesterday. Informed team that patient was dilated yesterday morning for my exam. Pupils equal and reactive. Still unable to accurately assess vision and EOMs 2/2 mental status. Patient does not consistently follow commands appropriately. IOP 13/19. Please reach out for recheck of vision when patient is able to participate in exam. * Progress Notes - Radha Huff, WILY-DIRECT CARE PROFESSIONAL - 11/02/2024 11:40 AM EDT Speech Language Pathology Speech Language Pathology Clinical Swallow Initial Evaluation Patient Name: [place] Mata Age: 64 y.o. Today's Date: 11/02/2024 Recommendations: Continue NPO, DHT pending MBSS. OK for ice chips after oral care. History/Background Information [place] Mata is a 64 y/o F with PMH CVA, R sided defecits on ASA/Plavix, HTN, HLP, CAD, and hypothyroidism. Presents s/p fall. Reversed with DDAVP. Injuries include: tSAH, IVH, R tripod fx with non-displaced ZMG, R globe hematoma s/p lateral canthotomy at OSH 11/01: s/p ORIF R zygomatic arch fx and R orbital wall fx repair Subjective [place] Mata was alert and cooperative. Identified by name and . RN provided verbal consent for evaluation. Objective Current diet: NPO diet Tube Feeding Tube feeding formula: Impact Peptide 1.5; Route of feeding: Nasoduodenal; Tube feedingschedule: Continuous; Tube feeding continous initial Rate (ml/hr): 20; Advance by (ml): 10; Advanceevery (hr): 6; Tube feeding continuous goal rat... Respiratory Status: 40 liters/min via HFNC WBC: 9.73 Relevant Imaging: CT Face 11/02: IMPRESSION: 1. There has been open reduction and internal fixation of the right maxillary sinus fractures with plate placement. There are again nondisplaced fractures of the right maxillary sinus medial wall. 2. There has been some reduction of the right lateral orbital wall fracture fragments, with residual fracture fragment displacement contacting the right lateral rectus muscle. 3. There has been mesh repair of the right orbital floor fracture, with fracture fragments again displaced into the right maxillary sinus, and a small fracture fragment along the superior aspect of the mesh. There is thin hematoma above the mesh. The mesh contacts and mildly elevates the midportionof the inferior rectus muscle. 4. Intramuscular hematoma and edema within the right inferior rectus muscle. Mild intraorbital fat edema-hemorrhage. Right globe proptosis is similar. 5. Similar appearance to nasal fractures which may be chronic. 6. Small fracture fragment of the right medial pterygoid plate or small foreign body along the right lateral nasopharyngeal wall. 7. Lucency along the medial aspect of the left C2 lateral mass extending to the foramen transversarium region may be related to vascular groove, although a subtle fracture is not excluded. 8. Similar ventricular enlargement with some redistribution of intraventricular hemorrhage as described. 9. Similar slightly displaced right lamina papyracea fractures. CXR 11/01: FINDINGS: Extubation. Feeding tube and right IJ central venous catheter remain in place. Worsening vascular congestion with trace interstitial edema. Trace bilateral pleural effusions. No pneumothorax. Enlarged cardiomediastinal silhouette. IMPRESSION: Worsening vascular congestion and interstitial edema. Direction Following: Follows 1 step directions and Independently Oral Mechanism Report: Dentition: intact Oral hygiene: WFL Focused Cranial Nerve Exam: Trigeminal Nerve (V): facial sensation impaired Facial Nerve (VII): retraction asymmetry right and impaired protrusion right Vagus Nerve (X): intact palate elevation Spinal Accessory (XI): Not assessed Hypoglossal Nerve (XII): WFL Function Exam: Secretion Management: adequate Vocal Quality: reduced intensity Cough: - Volitional not assessed - Reflexive unable to elicit Oral Feeding Trials: Positionin-90 degrees Feeding assistance: total assistance from DIRECT CARE PROFESSIONAL or caregiver Consistencies Administered: ice chips, thin liquid via teaspoon, and thin liquid via cup Risk Factors: Intubation (prolonged >48 hrs, multiple) w/dysphonia and Elevated oxygenation needs Freeman Swallow Protocol (Ed and Daler, 2014) - 3 Oz water challenge: not tested this date Assessment Patient presented w/ risk factors for dysphagia vs aspiration. Will benefit from further instrumental evaluation. Prognosis: Fair for improved function with skilled speech pathology services focusing on stated goals. Patient Education was provided via verbal instruction to patient regarding risk factors for dysphagia, clinical indicators of dysphagia following evaluation, and plan of care . Will continue to provide education in subsequent sessions as warranted. Results and recommendations of this evaluation were communicated to: RN/Team Plan / Recommendations Diet recommendations: Continue NPO, DHT pending MBSS. OK for ice chips after oral care. FOIS (Functional Oral Intake Scale) 1 - Nothing by mouth Goals MBSS. Radha Huff M.A., CCC-DIRECT CARE PROFESSIONAL Speech-Language Pathologist * Progress Notes - Micheal Espinoza MD - 11/02/2024 10:25 AM EDTAssociated Order(s): Critical Care Post-Procedure Diagnose(s): Acute respiratory failure with hypoxia; Fall, initial encounter; Hypertension, unspecified type; Traumatic brain injury, with unknown loss of consciousness status, initialencounter Trauma ICU Daily Progress Note 11/02/24 [place] Mata HPI [place] Mata is a 64 y/o F with PMH CVA, R sided defecits on ASA/Plavix, HTN, HLP, CAD, and hypothyroidism. Presents s/p fall. Reversed with DDAVP. Injuries include: tSAH, IVH, R tripod fx with non-displaced ZMG, R globe hematoma s/p lateral canthotomy at OSH 11/01: s/p ORIF R zygomatic arch fx and R orbital wall fx repair Interval: NAEON GCS 14 today, OR with ENT 11/01, repeat CT today done. Optho following, to reevaluatetoday. CV stable. TF at 40, BM overnight on bowel reg. 3.1L uop yesterday, che out overnight, monitoring for retention. Downgrade as patient was weaned from HFNC to 4L NC Edited by: Keri Patel MD at 11/02/2024 1416 Relevant review of systems was obtained as able and is negative unless stated above in HPI. Vital signs: Visit Vitals BP 137/59 Pulse 84 Temp 37.1 ??C (98.8 ??F) (Axillary) Resp 20 Ht 1.6 m (5' 2.99 ) Wt 67.6 kg (149 lb 0.5 oz) SpO2 95% BMI 26.41 kg/m?? Smoking Status Former BSA 1.73 m?? Intake/Output Summary (Last 24 hours) at 11/02/2024 1416 Last data filed at 11/02/2024 0600 Gross per 24 hour Intake 2218 ml Output 1750 ml Net 468 ml Physical Exam: Physical Exam HENT: Head: Normocephalic. Comments: Marley-orbital swelling of right eye S/p lateral canthotomy site of right eye Right Ear: External ear normal. Left Ear: External ear normal. Nose: Nose normal. Comments: DHT in place Mouth/Throat: Mouth: Mucous membranes are moist. Pharynx: Oropharynx is clear. Eyes: Comments: L pupil 3mm reactive to light, EOM intact Cardiovascular: Rate and Rhythm: Normal rate and regular rhythm. Pulses: Normal pulses. Pulmonary: Effort: Pulmonary effort is normal. Comments: 2L NC Abdominal: General: Abdomen is flat. Palpations: Abdomen is soft. Musculoskeletal: Cervical back: Normal range of motion. Right lower leg: No edema. Left lower leg: No edema. Comments: RUE pain and minimal swelling Skin: General: Skin is warm. Capillary Refill: Capillary refill takes less than 2 seconds. Neurological: General: No focal deficit present. Mental Status: She is oriented to person, place, and time. Lines/Drains/Tubes: Patient Lines/Drains/Airways Status Active Airway None O2 Delivery Method: Nasal cannula OK SUP: 10 cm H20 Insp Time (sec): 2 sec FiO2 (%): 40 % S RR: 8 OK SUP: 10 cm H20 Output by Drain (mL) 10/31/24699 - 10/31/24185810/31/241899 - 11/01/24 0659 11/01/24 07 - 11/01/24 18511/01/24 1900 - 11/02/24 0659 11/02/24 07 - 11/02/24 1416 Requested LDAs do not have output data documented. Labs in last 18 hours: CBC WBC ?? Hb ?? Plt ?? Hct ?? ANC ?? INR ??, PTT ??, Anti-Xa ?? BMP Na ?? Cl ?? BUN ?? Glu ?? K ?? Co2 ?? Cr ?? Ca ?? iCa ?? Mg ??, Phos ?? Lactate ?? LFT AST ?? AlkPhos ?? T Prot ?? ALK ?? Bili ?? Alb ?? D.Bili ?? Lab Trends: H/H Results from last 7 days Lab Units 11/01/24180810/31/24234810/30/24 2311 HEMOGLOBIN g/dL 9.4* 8.1* 9.2* HEMATOCRIT % 30.8* 26.5* 29.8* INR Cr Results from last 7 days Lab Units 11/01/24180810/31/24234810/30/24 2311 CREATININE mg/dL 0.78 0.80 0.99 Radiology: I have personally reviewed and interpreted the most recent CT head and my interpretation is that itshows stable interval of intraranial hemorrhages. Medications reviewed. Vital signs reviewed. Labs reviewed. Radiography reviewed. Assessment and Plan: Assessment & Plan Zygomatic arch fracture (CMS/HCC) Present on Admission: Yes To OR with ENT on 11/01/24 Injury of globe of eye, right, initial encounter Present on Admission: Yes S/p canthotomy at OSH Optho following Fall Present on Admission: Yes Admit SGT ICU [x] Tertiary 10/31 [] Audit-C [] Patient will need ITSS evaluation when appropriate TBI (traumatic brain injury) (CMS/HCC) Present on Admission: Yes SAH, IVH NSGY consult DDAVP given at OSH Carotid stenosis Present on Admission: Yes Coat Padder and mca stenosis Resume home meds as appropriate ABLA (acute blood loss anemia) Present on Admission: Yes Recheck hemogram and transfuse as necessary Hyperglycemia Present on Admission: Yes Likely reactive to trauma, recheck and treat as necessary Acute respiratory failure with hypoxia Present on Admission: Yes Extubated 10/31/24 Placed on HFNC on 11/01/24 2L NC Lactic acidosis Present on Admission: Yes IVF resuscitation and recheck as necessary Electrolyte abnormality Present on Admission: Yes Hypomagnesemia (POA) Hypocalcemia (POA) Replace/treat and recheck as necessary MELISSA (acute kidney injury) (CMS/HCC) Present on Admission: Yes Avoid nephrotoxic agents as able and renally dose medications IVF resuscitation as needed Hypothyroidism Present on Admission: Yes Resume home meds as appropriate Hypertension Present on Admission: Yes Resume home meds as appropriate Hyperlipidemia Present on Admission: Yes Resume home meds as appropriate CVA (cerebral vascular accident) (CMS/HCC) Present on Admission: Yes PMH CVA and R sided deficits Resume home meds as appropriate Overweight (BMI 25.0-29.9) Present on Admission: Yes Could complicate hospitalization and mobility Debility Present on Admission: Yes PT/OT following Recommend ERIKA Possible PM&R consult for 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 To Do: FW to 250ml Central line and che removed Straight cath at noon postop labs okay DC A-line DIRECT CARE PROFESSIONAL eval Downgrade Edited by: Keri Patel MD at 11/02/2024 1416 Keri Patel MD Critical Care Performed by: Micheal Espinoza MD Authorized by: Micheal Espinoza MD Critical care provider statement: Critical care time (minutes): 35 Critical care time was exclusive of: Separately billable procedures and treating other patients andteaching time Critical care was time spent personally by me on the following activities: Evaluation of patient's response to treatment, examination of patient, ordering and review of radiographic studies, orderingand performing treatments and interventions, ordering and review of laboratory studies, developmentof treatment plan with patient or surrogate and discussions with consultants I assumed subsequent critical care for this patient from a provider in my division, on the same day: no Critical care statement: I saw and evaluated the patient with the resident/ fellow. I discussed thecase with the resident/ fellow and agree with the findings and plan as documented. Comments: Slightly confused this morning. GCS 14, stable from prior. Remains on Keppra for seizure prophylaxis. On Seroquel at bedtime. Restarted home Prozac. Went to OR with ENT yesterday for fixation of facial fractures. Underwent repeat CT of the face this morning. We will re-engage Ophthalmology to re-evaluate per ENT recommendations. Hypertension improved. On half of her home amlodipine dose. Continuing home Lipitor. On high-flow nasal cannula at 40 L 40%. Aggressive pulmonary hygiene, DuoNebs, weaned to nasal cannula. We will saline lock IV fluids. Adequate urine output, serum creatinine normal. Her urine output this morning has declined somewhatso giving small bolus of free water via Dobbhoff tube. Advancing tube feeds to goal of 65. On a bowel regimen. PT OT recommended subacute rehab. Right upper extremity x-ray was obtained and an avulsion fractureof the 5th metacarpal can not be completely excluded. There is no associated point tenderness. She is on her home levothyroxine. She has normal glycemic. White count stable. No indication for antibiotics. Hemoglobin stable, no indication for blood transfusion. Lovenox for chemical VTE prophylaxis. * Progress Notes - Vidal Ivey MD - 11/02/2024 6:38 AM EDT Otolaryngology-Head and Neck Surgery Progress Note Hospital Day: 4 Subjective Patient is alert but not completely coherent on evaluation during rounds this morning. Took multiple reinforcement for her to follow commands. This may have confounded the exam this morning. Objective Vitals: Temp: [36.6 ??C (97.9 ??F)-38 ??C (100.4 ??F)] 36.9 ??C (98.5 ??F) Heart Rate: [71-85] 72 Resp: [12-33] 13 BP: (98-164)/(42-96) 104/66 Arterial Line BP: (96-193)/(41-77) 116/51 FiO2 (%): [40 %-70 %] 40 % Temp (24hrs), Av.4 ??C (99.4 ??F), Min:36.6 ??C (97.9 ??F), Max:38 ??C (100.4 ??F) Wt Readings from Last 3 Encounters: 10/30/24 67.6 kg (149 lb 0.5 oz) 06/19/23 58.9 kg (129 lb 13.6 oz) 05/22/23 59.1 kg (130 lb 3.2 oz) Physical exam: GEN: no apparent distress, well appearing female HEAD: Normocephalic, atraumatic EYES: Right conjunctival injection and periorbital ecchymosis. Post-op edema. Incision closed intact. EOM limited in upward gaze on right. EARS: Pinnae without laceration or deformity, no drainage NOSE: Nares patent, no drainage MOUTH: Mucous membranes pink and moist, tongue with full ROM NECK: Soft, supple, no palpable masses RESP: Symmetric chest rise, unlabored breathing CV: appears well perfused, no cyanosis MSK/EXT: no gross deformities, appropriate ROM NEURO: alert and oriented, no focal deficits PSYCH: Appropriate mood and affect Edited by: Vidal Ivey MD at 11/02/2024 0638 I/O: Intake/Output 11/01/24 06 - 11/02/24 0600 11/02/24 0601 - 11/03/24 0600 Intake I.V. 1809 -- NG/GT 523 -- IV Piggyback 6 -- Total Intake 2338 -- Output Urine 3110 -- Blood 100 -- Total Output 3210 -- Net I/O -872 -- Medications: Current Scheduled Medications[1] Current Continuous Medications[2] PRN Meds: Current PRN Medications[3] Results: WBC 9.73 Hgb 9.4 (L) PLT 198 HCT 30.8 (L) INR ?? PTT ?? antiXa ?? Na 142 Cl 109 (H) BUN 14 Gluc 113 (H) K 4.4 CO2 22 Creat 0.78 Ca 8.7 (L) iCa ?? Mg 2.0 Phos 3.5 pH ?? pCO2 ?? pO2 ?? SPO2 ?? FIO2 50.0 HCO3 27.2 (H) BE ?? Lactate 0.8 Imaging XR Chest 1 View Result Date: 11/01/2024 Impression: Worsening vascular congestion and interstitial edema. CRITICAL RESULT: No. COMMUNICATION: Per this written report. Drafted by Ethan Grande MD on 11/01/2024 12:56 PM Final report signed by Ethan Grande MD on 11/01/2024 12:57 PM XR Forearm Right 2 View Result Date: 11/01/2024 Impression: Small ossific capacity at the dorsal medial base of the fifth metacarpal. Cannot exclude avulsion fracture if the patient is tender in this location. Otherwise no findings of acute osseous or articular abnormality of the right elbow, forearm, hand or wrist. CRITICAL RESULT: No. COMMUNICATION: Per this written report. Drafted by Zurdo Hsieh MD on 11/01/2024 11:01 AM Final report signed by Zurdo Hsieh MD on 11/01/2024 11:05 AM XR Elbow Right 3+ View Result Date: 11/01/2024 Impression: Small ossific capacity at the dorsal medial base of the fifth metacarpal. Cannot exclude avulsion fracture if the patient is tender in this location. Otherwise no findings of acute osseous or articular abnormality of the right elbow, forearm, hand or wrist. CRITICAL RESULT: No. COMMUNICATION: Per this written report. Drafted by Zurdo Hsieh MD on 11/01/2024 11:01 AM Final report signed by Zurdo Hsieh MD on 11/01/2024 11:05 AM XR Hand Right 3+ Views Result Date: 11/01/2024 Impression: Small ossific capacity at the dorsal medial base of the fifth metacarpal. Cannot exclude avulsion fracture if the patient is tender in this location. Otherwise no findings of acute osseous or articular abnormality of the right elbow, forearm, hand or wrist. CRITICAL RESULT: No. COMMUNICATION: Per this written report. Drafted by Zurdo Hsieh MD on 11/01/2024 11:01 AM Final report signed by Zurdo Hsieh MD on 11/01/2024 11:05 AM XR Wrist Right 3+ Views Result Date: 11/01/2024 Impression: Small ossific capacity at the dorsal medial base of the fifth metacarpal. Cannot exclude avulsion fracture if the patient is tender in this location. Otherwise no findings of acute osseous or articular abnormality of the right elbow, forearm, hand or wrist. CRITICAL RESULT: No. COMMUNICATION: Per this written report. Drafted by Zurdo Hsieh MD on 11/01/2024 11:01 AM Final report signed by Zurdo Hsieh MD on 11/01/2024 11:05 AM Assessment/Plan [place] Mata is a 64 y.o. female with PMHx significant for CVA, R hemiparesis, carotid stent on Plavix and HTN who presents to ED intubated and sedated following unwitnessed fall. She was found to have right tripod fracture with non-displaced zygomatic arch and comminuted right orbital floor fracture. She underwent open reduction internal fixation of right ZMC and orbital floor fractures on 11/01. #S/p Right ZMC and orbital floor repair 11/01 - Consult Ophtho for evaluation of entrapment post-repair - Erythromycin optho ointment TID - Sinus Precautions for 2 weeks total #Facial laceration - Use half-strength hydrogen peroxide on a Q-tip to clean the wound/sutures of crusting. Pat dry, then use thin layer of bacitracin twice daily on wound for 5 days. After 5 days, stop the antibiotic ointment, and use thin layer of Vaseline or Aquaphor until fully healed. - When showering, do not have wound in direct spray; let the soapy water run over the wound and do not scrub. Pat dry. May fully submerge in 3 days. -Once completely healed, use sunblock or physical protection (e.g., broad- brimmed hat) when out in the sun for 6 months to prevent hyperpigmentation. -Vitamin E or Mederma may be used in 1 month to reduce scarring. Edited by: Vidal Ivey MD at 11/02/2024 [id number] Vidal Ivey MD [1] acetaminophen, 1,000 mg, Nasogastric, q6h BACILIO amLODIPine, 2.5 mg, Oral, Daily atorvastatin, 40 mg, Nasogastric, Nightly enoxaparin, 30 mg, Subcutaneous, BID FLUoxetine, 20 mg, Nasogastric, Daily levETIRAcetam, 1,000 mg, Nasogastric, BID levothyroxine, 75 mcg, Nasogastric, q AM mupirocin, 1 Application, Each Nostril, BID polyethylene glycol, 17 g, Nasogastric, BID QUEtiapine, 50 mg, Nasogastric, Nightly senna-docusate, 2 tablet, Nasogastric, BID sodium chloride, 10 mL, Intravenous, q12h sodium chloride, 10 mL, Intravenous, q12h sodium chloride, 10 mL, Intravenous, q12h sodium chloride, 10 mL, Intravenous, q12h [2] sodium chloride, 75 mL/hr, Last Rate: 75 mL/hr (11/01/24 1753) [3] PRN medications: hydrALAZINE, HYDROmorphone OR HYDROmorphone, oxyCODONE, [COMPLETED] Insertperipheral IV AND [COMPLETED] Saline lock IV AND sodium chloride AND sodium chloride, sodium chloride, sodium chloride, sodium chloride, sodium chloride Cosigned by Yobani Benoit MD at 11/02/2024 8:48 AM EDT * Care Plan - Javi Frank RN - 11/01/2024 11:49 PM EDT Problem: Adult Inpatient Plan of Care Goal: Plan of Care Review Outcome: Ongoing, Progressing Flowsheets (Taken 11/01/20241999) Progress: improving Plan of Care Reviewed With: patient Goal: Patient-Specific Goal (Individualized) Outcome: Ongoing, Progressing Goal: Absence of Hospital-Acquired Illness or Injury Outcome: Ongoing, Progressing Intervention: Prevent Skin Injury Flowsheets (Taken 11/01/20241999) Skin Protection: incontinence pads utilized Intervention: Prevent Infection Flowsheets (Taken 11/01/20241999) Infection Prevention: environmental surveillance performed Goal: Optimal Comfort and Wellbeing Outcome: Ongoing, Progressing Intervention: Monitor Pain and Promote Comfort Flowsheets (Taken 11/01/20241999) Pain Management Interventions: pain management plan reviewed with patient/caregiver Intervention: Provide Person-Centered Care Flowsheets (Taken 11/01/20241999) Trust Relationship/Rapport: care explained choices provided emotional support provided Problem: Skin Injury Risk Increased Goal: Skin Health and Integrity Outcome: Ongoing, Progressing Intervention: Optimize Skin Protection Flowsheets (Taken 11/01/20241999) Pressure Reduction Techniques: frequent weight shift encouraged Skin Protection: incontinence pads utilized Problem: Fall Injury Risk Goal: Absence of Fall and Fall-Related Injury Outcome: Ongoing, Progressing Intervention: Identify and Manage Contributors Flowsheets (Taken 11/01/20241999) Medication Review/Management: medications reviewed Self-Care Promotion: independence encouraged Problem: Functional Deficit Goal: Improved Balance and Postural Control Outcome: Ongoing, Progressing Intervention: Optimize Balance and Safe Activity Flowsheets (Taken 11/01/20241999) Self-Care Promotion: independence encouraged Goal: Optimal Cognitive Function Outcome: Ongoing, Progressing Intervention: Optimize Cognitive Function Flowsheets (Taken 11/01/20241999) Sensory Stimulation Regulation: auditory stimulation minimized tactile stimulation minimized Environment Familiarity/Consistency: daily routine followed Self-Care Promotion: independence encouraged Goal: Optimal Coordination Outcome: Ongoing, Progressing Intervention: Optimize Motor Coordination and Function Flowsheets (Taken 11/01/20241999) Self-Care Promotion: independence encouraged Goal: Improved Muscle Strength Outcome: Ongoing, Progressing Intervention: Optimize Muscle Strength Flowsheets (Taken 11/01/20241999) Self-Care Promotion: independence encouraged Goal: Improved Muscle Tone Outcome: Ongoing, Progressing Goal: Optimal Range of Motion Outcome: Ongoing, Progressing Intervention: Maintain Functional Joint Range Position Flowsheets (Taken 11/01/20241999) Positioning/Transfer Devices: repositioning sheet Goal: Compensation for Sensory Deficit Outcome: Ongoing, Progressing Intervention: Optimize Sensory Function Flowsheets (Taken 11/01/20241999) Pressure Reduction Techniques: frequent weight shift encouraged Skin Protection: incontinence pads utilized Problem: Infection Goal: Absence of Infection Signs and Symptoms Outcome: Ongoing, Progressing * Anesthesia PACU Signout - Raquel Pugh DO - 11/01/2024 5:01 PM EDT Patient: [place] Mata Anesthesia Type: general Vitals Value Taken Time BP 140/65 11/01/24 16:45 Temp 36.6 ??C (97.9 ??F) 11/01/24 15:55 Pulse 78 11/01/24 16:59 Resp 13 11/01/24 16:59 SpO2 97 % 11/01/24 16:59 Vitals shown include unfiled device data. Anesthesia PACU Signout Patient location during evaluation: PACU Patient participation: complete - patient participated Level of consciousness: baseline and awake Pain management: adequate (pain score 0-3) Airway patency: natural airway Hydration status: acceptable PONV: none Cardiovascular status: acceptable and hemodynamically stable Respiratory status: acceptable, spontaneous ventilation, unassisted and nonlabored ventilation Discharge Disposition: admit to inpatient unit Comments: HDS on non re breather. Admitted to ICU Cosigned by Emmanuel Orta MD at 11/02/2024 8:44 AM EDT Associated attestation - Emmanuel Orta MD - 11/02/2024 8:44 AM EDT I saw and evaluated the patient with the resident/fellow. I discussed the case with the resident/fellow and agree with the findings and plan as documented. * Op Note - Raquel Paiz MD - 11/01/2024 2:29 PM EDT Operative Note Date: 11/01/24 Location: [place] [facility] Name: [place] Mata, : 1960, Diagnoses: Pre-op Diagnosis Closed fracture of right zygomatic arch, initial encounter ([facility]) Post-op Diagnosis Closed fracture of right zygomatic arch, initial encounter ([facility]) Procedure(s): Open reduction internal fixation right ZMC fracture Right orbital floor fracture repair Attending Surgeon(s): * Yobani Benoit - Primary Insurance Sales Specialist(s): * Raquel Paiz MD - Resident - Assisting Anesthesia: General ASA: III Blood Administration: Blood Product Administration History Date Volume Status Transfuse platelets 10/30/2024 Completed 10/30/2413 10/30/2024 230 mL Completed 10/30/24913 Estimated Blood Loss: Minimal Drains: Urethral Catheter (Active) Site Assessment Clean;Skin intact 11/01/24 155 CAUTI: Collection Container Standard drainage bag 11/01/24 155 CAUTI: Securement Method Securing device (Describe) 11/01/24 155 CAUTI: Specimen Collection Port Covered with Alcohol Cap Yes 11/01/24 0800 CAUTI: Urinary Catheter Indication Yes, meets indication reason 11/01/24 155 CAUTI: Urinary Catheter Indication Reasons ICU patient requiring output monitoring q 1-2 hours withinterventions 11/01/24 0800 Output (mL) 45 mL 11/01/24 1600 Implants Type Name Action Serial No. Implant BARRIER FLOOR AND WALL - [id number] - [id number] Implanted Specimen: None Findings: Right ZMC fracture repaired with a midface places along orbital rim and anterior face of maxillary sinus Right infraorbital nerve identified and preserved Right orbital floor blowout fracture repaired with SynPOR prosthesis Indications: [place] Mata is an 64 y.o. female who is having surgery for Closed fracture of rightzygomatic arch, initial encounter ([facility]). Narrative: After informed consent was obtained from the patients family, the patient was back to the operatingsuite and placed in supine position on the operating table. After induction of general endotrachealanesthesia by the anesthesia service, a timeout was performed to ensure the correct patient and correct procedure. At this time, the patient was prepped and draped in the usual sterile fashion. The patient was rotated 90 degrees. Corneal tariq were applied with Lacri-Lube to protect the patient's right cornea throughout this procedure. This remained in throughout the procedure and were removed at the end of the case. 1% lidocaine with 1:100,000 epinephrine was then injected into the patient's right orbital rims, inferior conjunctivas, and gingivobuccal sulcus. Next, the patient was prepped and draped in the usual sterile fashion for surgery. At this point we began to expose the facial fractures. The blue lip retractor was placed. The Boviewas used to incise through the gingival buccal sulcus leaving a cuff of soft tissue on the alveolarridge. Once the anterior face of the maxilla was identified a Molt was used to elevate the periosteum until the piriform aperture was identified in the midline. Laterally there was a transverse fracture through the anterior face of the maxillary sinuses. Soft tissue was elevated off the bone until the infraorbital nerves were exposed medially, and stable bone was exposed laterally. A needle tip bovie was then used to create the transconjunctival incisions. The Linda scissors were then used to sharply dissect beneath the lower lid conjunctiva in a lateral to medial fashion. Once this had been completed, the conjunctiva was then divided and the orbital septum was at this timeidentified. Blunt dissection was then used to separate the lower lid conjunctiva and overlying orbital septum from the orbicularis oculi muscle. Dissection proceeded inferiorly to the level of the infraorbital rim. Bovie electrocautery was then used to divide the periorbita on the inferior orbital rim just anterior to the orbit. The periorbita was then elevated from the infraorbital rim and the or bital floor in an anterior to posterior, lateral to medial fashion using a caudal elevator with malleable retraction onto the orbit and Desmarre retraction upon the eyelid and orbicularis oculi muscle. The inferior orbital rim was completely exposed to reveal displaced fractures of the orbital rim with the nasal maxillary buttress. There was significant depression of the right medial orbital floor. This completed the fracture exposure. We then began plating the fractures starting with the right inferior orbital rim. 4-5 mm screws diana midface plate were used for this. Periorbita continued to be elevated until the orbital floor fracture was fully identified in the medial portion of the orbital floor. It was at this time where theorbital contents were subsequently reduced using malleable retractors as well as the caudal elevator to bring this tissue out from the maxillary sinus re- establishing orbital volume. Once this had been completed, dissection continued further along the medial orbital wall for plan for placement of the SynPOR prosthesis within the defect. The SynPOR prosthesis was subsequently contoured and cut forappropriate fit to overly the orbital floor defect, with assurance the posterior-most portion of the fracture line was covered by the prosthesis. Moving inferiorly, working through the intraoral sub labial approach, plates were used to fasten the nasal maxillary buttresses to the zygomaticomaxillary buttress. This completed the fracture repairportion of the case. The transconjunctival incisions were closed with a 5-0 fast gut in a buried int errupted fashion. The gingival buccal incision was closed using 3-0 chromic gut in a simple interrupted fashion. This completed the procedure. The patient was handed off to anesthesia for their portion of the procedure where he was awoken, extubated and transferred to PACU in stable condition. There were NO signs of surgical site infection (SSI) present at the time of surgery (PATOS). Complications: None; patient tolerated the procedure well. Submitted by: Raquel Paiz MD - 11/01/2024 Cosigned by Yobani Benoit MD at 11/01/2024 6:59 PM EDT Associated attestation - Yobani Benoit MD - 11/01/2024 6:59 PM EDT I was present for the entirety of the procedure(s). * Significant Event - Keri Patel MD - 11/01/2024 11:58 AM EDT I was called to the patient's bedside for an increase in oxygen requirement from 2L to 5L NC, she continued to maintain oxygen saturation in mid 80's with a good reading. She was placed on HFNC, CXR ordered, duoneb ordered. The patient and her son also expressed to me, that should she need to intubated again she would notwant this and provided documentation of her code status which is DNR/DNI, she was also alert and oriented, and had capacity to make decisions at the time of this conversation. Patient's code status will be changed accordingly. CXR concerning for increased interstitial edema, will continue to monitor and discuss possible diuresis. Due to patient's decompensation, the decision was made by us as the primary team for the patient not to go to the OR with ENT for management of her facial fractures. Will continue to monitor. * Assessment & Plan Note - Micheal Espinoza MD - 11/01/2024 10:42 AM EDT Associated Problem(s): Injury of globe of eye, right, initial encounter S/p canthotomy at OSH OPH reassessing today * Assessment & Plan Note - Micheal Espinoza MD - 11/01/2024 10:42 AM EDT Associated Problem(s): Fall Admit SGT ICU [x] Tertiary 10/31 [] Audit-C [] Patient will need ITSS evaluation when appropriate * Assessment & Plan Note - Micheal Espinoza MD - 11/01/2024 10:42 AM EDT Associated Problem(s): TBI (traumatic brain injury) SAH, IVH NSGY consult DDAVP given at OSH * Assessment & Plan Note - Mihceal Espinoza MD - 11/01/2024 10:42 AM EDT Associated Problem(s): Carotid stenosis Coat Padder and mca stenosis Resume home meds as appropriate * Assessment & Plan Note - Micheal Espinoza MD - 11/01/2024 10:42 AM EDT Associated Problem(s): ABLA (acute blood loss anemia) Recheck hemogram and transfuse as necessary * Assessment & Plan Note - Micheal Espinoza MD - 11/01/2024 10:42 AM EDT Associated Problem(s): Hyperglycemia Likely reactive to trauma, recheck and treat as necessary * Assessment & Plan Note - Micheal Espinoza MD - 11/01/2024 10:42 AM EDT Associated Problem(s): Acute respiratory failure with hypoxia Extubated 10/31/24 2L NC * Assessment & Plan Note - Micheal Espinoza MD - 11/01/2024 10:42 AM EDT Associated Problem(s): Lactic acidosis IVF resuscitation and recheck as necessary * Assessment & Plan Note - Micheal Espinoza MD - 11/01/2024 10:42 AM EDT Associated Problem(s): Electrolyte abnormality Hypomagnesemia (POA) Hypocalcemia (POA) Replace/treat and recheck as necessary * Assessment & Plan Note - Micheal Espinoza MD - 11/01/2024 10:42 AM EDT Associated Problem(s): MELISSA (acute kidney injury) Avoid nephrotoxic agents as able and renally dose medications IVF resuscitation as needed * Assessment & Plan Note - Micheal Espinoza MD - 11/01/2024 10:42 AM EDT Associated Problem(s): Hypothyroidism Resume home meds as appropriate * Assessment & Plan Note - Micheal Espinoza MD - 11/01/2024 10:42 AM EDT Associated Problem(s): Hypertension Resume home meds as appropriate * Assessment & Plan Note - Micheal Espinoza MD - 11/01/2024 10:42 AM EDT Associated Problem(s): Hyperlipidemia Resume home meds as appropriate * Assessment & Plan Note - Micheal Espinoza MD - 11/01/2024 10:42 AM EDT Associated Problem(s): CVA (cerebral vascular accident) (CMS/HCC) PMH CVA and R sided deficits Resume home meds as appropriate * Assessment & Plan Note - Micheal Espinoza MD - 11/01/2024 10:42 AM EDT Associated Problem(s): Overweight (BMI 25.0-29.9) Could complicate hospitalization and mobility * Assessment & Plan Note - Micheal Espinoza MD - 11/01/2024 10:42 AM EDT Associated Problem(s): Zygomatic arch fracture (CMS/HCC) To ER with ENT today * Progress Notes - Eva Emmanuel MD - 11/01/2024 10:31 AM EDT Images from the original note were not included. [facility] Department of Ophthalmology Ophthalmology Progress Note Exam Date: 11/01/2024 Subjective: Patient sleepy on exam but denies eye pain. Difficult to assess vision 2/2 mental status. Objective: Physical Examination: Vitals Blood pressure (!) 116/43, pulse 81, temperature 37.2 ??C (99 ??F), resp. rate 17, height 1.6 m (5' 2.99 ), weight 67.6 kg (149 lb 0.5 oz), SpO2 94%. General in no apparent distress Base Eye Exam Visual Acuity unable to assess vision 2/2 mental status Tonometry (Tonopen, 10:09 AM) Right Left Pressure 11 13 Pupils Pupils Right PERRL Left PERRL Dilation Both eyes: 1% Tropicamide, 0.5% Tropicamide @ 10:09 AM Slit Lamp and Fundus Exam External Exam Right Left External Dried blood, edematous left side of face Normal Slit Lamp Exam Right Left Lids/Lashes Very edematous lids with dried blood. S/p lateral canthotomy, LLL mobile to qtip application, canthus appears to be severed properly Normal for age Conjunctiva/Sclera Chemosis 360, subconj heme diffuse Normal Cornea Clear and compact Clear and compact Anterior Chamber Deep and quiet Deep and quiet Iris Normal pupil size and shape Normal pupil size and shape Lens NS NS Fundus Exam Right Left Disc No edema; no vascularization; good color No edema; no vascularization; good color Macula Normal reflex; without edema Normal reflex; without edema Vessels Perfused; no tortuosity or abnormality Perfused; no tortuosity or abnormality Periphery Attached Attached Assessment/Plan: #Orbital fractures 2/2 fall - Pt presents 2/2 fall, found to have right tripod fracture with non-displaced zygomatic arch and comminuted right orbital floor fracture. Admitted to trauma surg - Pt is sedated at time of initial examination, unable to comply with some parts of eye exam. Pt was also on neuro checks so dilation was deferred - exam without evidence of globe trauma/rupture - EOM with some restriction in all quadrants on ductions, no evidence of muscle entrapment such as bradycardia. - recommend sinus precautions including no nose blowing, nasal decongestants 3 days max, cold compresses 20 min q1-2h for 24-48 hours with 30 degree incline at rest to reduce swelling - fracture repair per face team 11/01/24 Update: - patient still unable to fully participate in exam, unable to accurately assess vision - intermittently follows commands on my exam, unable to fully assess EOMs, DFE wnl although limitedperipheral view - recommend follow up with ophthalmology for recheck of vision once patient is able to participate in exam, consult resident to see pt if still inpatient at that time, otherwise will schedule for clinic if able Please call with any further questions. Eva Emmanuel MD Ophthalmology, PGY2 Cosigned by Lena Chakraborty MD at 11/10/2024 11:32 PM EDT * Care Plan - Felicia Miller RN - 11/01/2024 8:51 AM EDT Problem: Adult Inpatient Plan of Care Goal: Plan of Care Review Outcome: Ongoing, Progressing Flowsheets (Taken 11/01/2024 0849) Progress: improving Plan of Care Reviewed With: patient child Goal: Patient-Specific Goal (Individualized) Outcome: Ongoing, Progressing Flowsheets (Taken 11/01/2024 0800) Patient/Family-Specific Goals (Include Timeframe): pt will adequate pain control throughout the shift Individualized Care Needs: pain management, movement Anxieties, Fears or Concerns: pain Goal: Absence of Hospital-Acquired Illness or Injury Outcome: Ongoing, Progressing Goal: Optimal Comfort and Wellbeing Outcome: Ongoing, Progressing Intervention: Monitor Pain and Promote Comfort Flowsheets (Taken 11/01/2024 0849) Pain Management Interventions: medication (see MAR) pillow support provided position adjusted pain management plan reviewed with patient/caregiver Problem: Skin Injury Risk Increased Goal: Skin Health and Integrity Outcome: Ongoing, Progressing Intervention: Optimize Skin Protection Flowsheets Taken 11/01/2024848 Activity Management: activity adjusted per tolerance activity encouraged Pressure Reduction Techniques: frequent weight shift encouraged heels elevated off bed Pressure Reduction Devices: heel offloading device utilized positioning supports utilized Head of Bed (HOB) Positioning: HOB at 45 degrees Taken 11/01/2024799 Skin Protection: silicone foam dressing in place Problem: Fall Injury Risk Goal: Absence of Fall and Fall-Related Injury Outcome: Ongoing, Progressing Intervention: Identify and Manage Contributors Flowsheets (Taken 11/01/2024848) Medication Review/Management: medications reviewed Self-Care Promotion: independence encouraged Intervention: Promote Injury-Free Environment Flowsheets (Taken 11/01/2024848) Safety Promotion/Fall Prevention: activity supervised assistive device/personal items within reach fall prevention program maintained lighting adjusted clutter-free environment maintained nonskid shoes/slippers when out of bed room organization consistent safety round/check completed Problem: Functional Deficit Goal: Improved Balance and Postural Control Outcome: Ongoing, Progressing Intervention: Optimize Balance and Safe Activity Flowsheets (Taken 11/01/2024848) Activity Management: activity adjusted per tolerance activity encouraged Safety Promotion/Fall Prevention: activity supervised assistive device/personal items within reach fall prevention program maintained lighting adjusted clutter-free environment maintained nonskid shoes/slippers when out of bed room organization consistent safety round/check completed Self-Care Promotion: independence encouraged Goal: Optimal Cognitive Function Outcome: Ongoing, Progressing Goal: Optimal Coordination Outcome: Ongoing, Progressing Goal: Improved Muscle Strength Outcome: Ongoing, Progressing Intervention: Optimize Muscle Strength Flowsheets (Taken 11/01/2024848) Activity Management: activity adjusted per tolerance activity encouraged Activity Assistance Provided: assistance, 2 people Self-Care Promotion: independence encouraged Goal: Improved Muscle Tone Outcome: Ongoing, Progressing Goal: Optimal Range of Motion Outcome: Ongoing, Progressing Goal: Compensation for Sensory Deficit Outcome: Ongoing, Progressing Intervention: Optimize Sensory Function Flowsheets Taken 11/01/2024848 Pressure Reduction Techniques: frequent weight shift encouraged heels elevated off bed Sensation Impairment Protection: insensate areas closely monitored Taken 11/01/2024799 Skin Protection: silicone foam dressing in place * Progress Notes - Robbin Koch MD - 11/01/2024 8:41 AM EDT Neurosurgery Consult Follow-up Note History, exam, and imaging review with attending and discussed on rounds this morning. [place] Mata is a 64 y.o. female presenting w/ scattered contusions/tSAH w/o MLS s/p low mechanism trauma 2/2 ophthalmologic emergency . Exam: GCS (EMV): 364 R eye swollen shut Face symmetric Follows commands L>R LUE AG Right side hemiparetic (baseline) Imaging: Repeat CTH without contrast was reviewed and stable. - No neurosurgical intervention - Hold antiplatelet and anticoagulant medications for two weeks unless holding medications is strongly contraindicated. - Hold DVT ppx for at least 24 hours following demonstration of stable bleed. - cont neuro checks - HOB > 45 degrees - Keppra BID 1 wk - Maintain normoNa and normotension - Other injuries per respective teams - Rest of care per primary team - Neurosurgery will sign off. Please contact us back in case of neurological decline - Thank you for allowing us to participate in the care of this patient. Please call with any questions or concerns. [phone] Robbin Nielson MD Resident Physician, PGY-2 Department of Neurosurgery [facility] Cosigned by Barney Osman MD at 11/01/2024 6:16 PM EDT Associated attestation - Barney Osman MD - 11/01/2024 6:16 PM EDT I saw and evaluated the patient with the resident/fellow. I discussed the case with the resident/fellow and agree with the findings and plan as documented. * Progress Notes - Vidal Ivey MD - 11/01/2024 7:40 AM EDT Otolaryngology-Head and Neck Surgery Progress Note Hospital Day: 3 Subjective NAEO. Patient is off ventilator and pressors. She is stable on nasal cannula. We will check with primary team for fracture repair. She is agreeable Objective Vitals: Temp: [37.2 ??C (99 ??F)-38 ??C (100.4 ??F)] 37.5 ??C (99.5 ??F) Heart Rate: [73-108] 73 Resp: [16-26] 16 Arterial Line BP: (96-148)/(39-66) 145/57 FiO2 (%): [30 %] 30 % Temp (24hrs), Av.7 ??C (99.8 ??F), Min:37.2 ??C (99 ??F), Max:38 ??C (100.4 ??F) Wt Readings from Last 3 Encounters: 10/30/24 67.6 kg (149 lb 0.5 oz) 06/19/23 58.9 kg (129 lb 13.6 oz) 05/22/23 59.1 kg (130 lb 3.2 oz) Physical exam: GEN: no apparent distress, well appearing female HEAD: Normocephalic, atraumatic EYES: No scleral icterus, no conjunctival injection. Right periorbital ecchymosis, edema improved EARS: Pinnae without laceration or deformity, no drainage NOSE: Nares patent, no drainage MOUTH: Mucous membranes pink and moist, tongue with full ROM NECK: Soft, supple, no palpable masses RESP: Symmetric chest rise, unlabored breathing CV: appears well perfused, no cyanosis MSK/EXT: no gross deformities, appropriate ROM NEURO: alert and oriented, no focal deficits PSYCH: Appropriate mood and affect Edited by: Vidal Ivey MD at 11/01/2024 0743 I/O: Intake/Output 10/31/24 0601 - 11/01/24 0600 11/01/24 0601 - 11/02/24 0600 Intake I.V. 3750.7 -- NG/GT 1219 -- Total Intake 4969.7 -- Output Urine 1910 -- Total Output 1910 -- Net I/O 3059.7 -- Medications: Current Scheduled Medications[1] Current Continuous Medications[2] PRN Meds: Current PRN Medications[3] Results: WBC 9.34 Hgb 8.1 (L) PLT 179 HCT 26.5 (L) INR ?? PTT ?? antiXa ?? Na 143 Cl 111 (H) BUN 16 Gluc 133 (H) K 4.0 CO2 22 Creat 0.80 Ca 7.7 (L) iCa 4.6 Mg 1.9 Phos 2.0 (L) pH ?? pCO2 ?? pO2 ?? SPO2 ?? FIO2 ?? HCO3 ?? BE ?? Lactate ?? Imaging Assessment/Plan [place] Mata is a 64 y.o. female with PMHx significant for CVA, R hemiparesis, carotid stent on Plavix and HTN who presents to ED intubated and sedated following unwitnessed fall. She was found to have right tripod fracture with non-displaced zygomatic arch and comminuted right orbital floor fracture. #Facial fractures - Plan for right zygomatic arch and orbital floor repair in OR today vs , pending primary team approval. If so, hold TF today vs Bia midnight. - Sinus Precautions #Facial laceration - Use half-strength hydrogen peroxide on a Q-tip to clean the wound/sutures of crusting. Pat dry, then use thin layer of bacitracin twice daily on wound for 5 days. After 5 days, stop the antibiotic ointment, and use thin layer of Vaseline or Aquaphor until fully healed. - When showering, do not have wound in direct spray; let the soapy water run over the wound and do not scrub. Pat dry. May fully submerge in 3 days. -Once completely healed, use sunblock or physical protection (e.g., broad- brimmed hat) when out in the sun for 6 months to prevent hyperpigmentation. -Vitamin E or Mederma may be used in 1 month to reduce scarring. Edited by: Vidal Ivey MD at 11/01/2024 1300 Vidal Ivey MD [1] acetaminophen, 1,000 mg, Nasogastric, q6h BACILIO atorvastatin, 40 mg, Nasogastric, Nightly enoxaparin, 30 mg, Subcutaneous, BID FLUoxetine, 20 mg, Nasogastric, Daily levETIRAcetam, 1,000 mg, Nasogastric, BID levothyroxine, 75 mcg, Nasogastric, q AM mupirocin, 1 Application, Each Nostril, BID pantoprazole, 40 mg, Intravenous, Daily polyethylene glycol, 17 g, Nasogastric, BID QUEtiapine, 50 mg, Nasogastric, Nightly senna-docusate, 2 tablet, Nasogastric, BID sodium chloride, 10 mL, Intravenous, q12h sodium chloride, 10 mL, Intravenous, q12h sodium chloride, 10 mL, Intravenous, q12h sodium chloride, 10 mL, Intravenous, q12h [2] sodium chloride, 75 mL/hr, Last Rate: 75 mL/hr (10/31/24 1401) [3] PRN medications: HYDROmorphone OR HYDROmorphone, oxyCODONE, [COMPLETED] Insert peripheral IV AND [COMPLETED] Saline lock IV AND sodium chloride AND sodium chloride, sodium chloride, sodium chloride, sodium chloride, sodium chloride Cosigned by Yobani Benoit MD at 11/01/2024 6:59 PM EDT * Progress Notes - Micheal Espinoza MD - 11/01/2024 7:22 AM EDTAssociated Order(s): Critical Care Post-Procedure Diagnose(s): Acute respiratory failure with hypoxia; Fall, initial encounter; Hyperlipidemia, unspecified hyperlipidemia type; Traumatic brain injury, with unknown loss of consciousness status, initial encounter Trauma ICU Daily Progress Note 11/01/24 [place] Mata HPI [place] Mata is a 64 y/o F with PMH CVA, R sided defecits on ASA/Plavix, HTN, HLP, CAD, and hypothyroidism. Presents s/p fall. Reversed with DDAVP. Injuries include: tSAH, IVH, R tripod fx with non-displaced ZMG, R globe hematoma s/p lateral canthotomy at OSH, Interval: GCS 15 today, patient endorsing persistent headache but otherwise doing well, going to ORwith ENT today, required HFNC @ 1145 due to desaturation, Edited by: Keri Patel MD at 11/01/2024 1152 Relevant review of systems was obtained as able and is negative unless stated above in HPI. Vital signs: Visit Vitals BP (!) 116/43 Pulse 79 Temp 37.4 ??C (99.3 ??F) Resp 17 Ht 1.6 m (5' 2.99 ) Wt 67.6 kg (149 lb 0.5 oz) SpO2 100% BMI 26.41 kg/m?? Smoking Status Former BSA 1.73 m?? Intake/Output Summary (Last 24 hours) at 11/01/2024 1218 Last data filed at 11/01/2024 1200 Gross per 24 hour Intake 5089.66 ml Output 2180 ml Net 2909.66 ml Physical Exam: Physical Exam HENT: Head: Normocephalic. Comments: Marley-orbital swelling of right eye S/p lateral canthotomy site of right eye Right Ear: External ear normal. Left Ear: External ear normal. Nose: Nose normal. Comments: DHT in place Mouth/Throat: Mouth: Mucous membranes are moist. Pharynx: Oropharynx is clear. Eyes: Comments: L pupil 3mm reactive to light, EOM intact Neck: Comments: R CVC Cardiovascular: Rate and Rhythm: Normal rate and regular rhythm. Pulses: Normal pulses. Pulmonary: Effort: Pulmonary effort is normal. Comments: 2L NC Abdominal: General: Abdomen is flat. Palpations: Abdomen is soft. Musculoskeletal: Cervical back: Normal range of motion. Right lower leg: No edema. Left lower leg: No edema. Comments: RUE pain and minimal swelling R radial a line Skin: General: Skin is warm. Capillary Refill: Capillary refill takes less than 2 seconds. Neurological: General: No focal deficit present. Mental Status: She is oriented to person, place, and time. Lines/Drains/Tubes: Patient Lines/Drains/Airways Status Active Airway None O2 Delivery Method: High flow nasal cannula Invasive Vent Status (ETT, Trach Only): Discontinued FiO2 (%): 70 % Output by Drain (mL) 10/30/24699 - 10/30/24 18510/30/241899 - 10/31/24 0659 10/31/24 07 - 10/31/24 1859 10/31/24 190 - 11/01/24 0659 11/01/24 07 - 11/01/24 1218 Requested LDAs do not have output data documented. Labs in last 18 hours: CBC WBC 9.34 Hb 8.1 (L) Plt 179 Hct 26.5 (L) ANC ?? INR ??, PTT ??, Anti-Xa ?? BMP Na 143 Cl 111 (H) BUN 16 Glu 133 (H) K 4.0 Co2 22 Cr 0.80 Ca 7.7 (L) iCa 4.6 Mg 1.9, Phos 2.0 (L) Lactate 0.7 LFT AST ?? AlkPhos ?? T Prot ?? ALK ?? Bili ?? Alb ?? D.Bili ?? Lab Trends: H/H Results from last 7 days Lab Units 10/31/24 2349 10/30/24 2311 10/30/24 1125 HEMOGLOBIN g/dL 8.1* 9.2* 10.4* HEMATOCRIT % 26.5* 29.8* 33.5* INR Cr Results from last 7 days Lab Units 10/31/24 2349 10/30/24 2311 10/30/24 1125 CREATININE mg/dL 0.80 0.99 1.12* Radiology: I have personally reviewed and interpreted the most recent CT head and my interpretation is that itshows stable interval of intraranial hemorrhages. Medications reviewed. Vital signs reviewed. Labs reviewed. Radiography reviewed. Assessment and Plan: Assessment & Plan Zygomatic arch fracture (CMS/HCC) Present on Admission: Yes To ER with ENT today Injury of globe of eye, right, initial encounter Present on Admission: Yes S/p canthotomy at OSH OPH reassessing today Fall Present on Admission: Yes Admit SGT ICU [x] Tertiary 10/31 [] Audit-C [] Patient will need ITSS evaluation when appropriate TBI (traumatic brain injury) (CMS/HCC) Present on Admission: Yes SAH, IVH NSGY consult DDAVP given at OSH Carotid stenosis Present on Admission: Yes Coat Padder and mca stenosis Resume home meds as appropriate ABLA (acute blood loss anemia) Present on Admission: Yes Recheck hemogram and transfuse as necessary Hyperglycemia Present on Admission: Yes Likely reactive to trauma, recheck and treat as necessary Acute respiratory failure with hypoxia Present on Admission: Yes Extubated 10/31/24 2L NC Lactic acidosis Present on Admission: Yes IVF resuscitation and recheck as necessary Electrolyte abnormality Present on Admission: Yes Hypomagnesemia (POA) Hypocalcemia (POA) Replace/treat and recheck as necessary MELISSA (acute kidney injury) (CMS/HCC) Present on Admission: Yes Avoid nephrotoxic agents as able and renally dose medications IVF resuscitation as needed Hypothyroidism Present on Admission: Yes Resume home meds as appropriate Hypertension Present on Admission: Yes Resume home meds as appropriate Hyperlipidemia Present on Admission: Yes Resume home meds as appropriate CVA (cerebral vascular accident) (CMS/HCC) Present on Admission: Yes PMH CVA and R sided deficits Resume home meds as appropriate Overweight (BMI 25.0-29.9) Present on Admission: Yes Could complicate hospitalization and mobility To Do: - OR with ENT - post op labs when back - follow UOP, possibly remove che post op - remove CVC if stable when back from OR - optho to re-eval this morning now that patient is extubated - f/u XR of RUE Edited by: Keri Patel MD at 11/01/2024 1022 Keri Patel MD Critical Care Performed by: Micheal Espinoza MD Authorized by: Micheal Espinoza MD Critical care provider statement: Critical care time (minutes): 38 Critical care time was exclusive of: Separately billable procedures and treating other patients Critical care was time spent personally by me on the following activities: Development of treatmentplan with patient or surrogate, discussions with consultants, evaluation of patient's response to treatment, examination of patient, ordering and review of laboratory studies and ordering and performing treatments and interventions I assumed subsequent critical care for this patient from a provider in my division, on the same day: no Critical care statement: I saw and evaluated the patient with the resident/ fellow. I discussed thecase with the resident/ fellow and agree with the findings and plan as documented. Comments: Neurosurgery following for TBI - 7 days of keppra for seizure prophylaxis. Ophtho planning dilated exam, appropriate today. ENT planning OR for fixation of facial fractures. Has been hemodynamically stable. On home statin. Tolerated extubation. Had episode of desaturation today requiring HFNC. Will delay OR to allow re-recruitment and sustained adequate oxygenation. Tube feeds per Dobhoff. Can resume today and hold in AM for possible OR. Continue bowel reg. Adequate urine output. Normoglycemic. No indication for supplemental insulin. No evidence of active systemic infection. No abx. Hgb downtrended. No signs of active bleeding. Monitoring, no blood transfusion indicated. Chemical VTE prophylaxis. * Care Plan - Doug Kevin - 11/01/2024 6:32 AM EDT Problem: Adult Inpatient Plan of Care Goal: Plan of Care Review 11/01/2024631 by Doug Kevin Outcome: Ongoing, Progressing 11/01/2024631 by Doug Kevin Outcome: Ongoing, Progressing Flowsheets (Taken 11/01/2024631) Progress: improving Plan of Care Reviewed With: patient family Goal: Patient-Specific Goal (Individualized) 11/01/2024631 by Doug Kevin Outcome: Ongoing, Progressing Flowsheets Taken 11/01/2024 0400 Individualized Care Needs: Pain managment Repositioning in bed Taken 10/31/20241999 Patient/Family-Specific Goals (Include Timeframe): sleep well over shift Anxieties, Fears or Concerns: Anxious about memory skills 11/01/2024631 by Doug Kevin Outcome: Ongoing, Progressing Flowsheets Taken 11/01/2024 0400 Individualized Care Needs: Pain managment Repositioning in bed Taken 10/31/20241999 Anxieties, Fears or Concerns: Anxious about memory skills Goal: Absence of Hospital-Acquired Illness or Injury Outcome: Ongoing, Progressing Intervention: Identify and Manage Fall Risk Flowsheets (Taken 11/01/2024 0632) Safety Promotion/Fall Prevention: activity supervised Intervention: Prevent Skin Injury Flowsheets Taken 11/01/202432 Skin Protection: transparent dressing maintained silicone foam dressing in place incontinence pads utilized pulse oximeter probe site changed Taken 11/01/2024 040 Body Position: turned heels elevated Intervention: Prevent and Manage VTE (Venous Thromboembolism) Risk Flowsheets (Taken 11/01/2024 0400) VTE Prevention/Management: bilateral lower extremity SCDs (sequential compression devices) on Intervention: Prevent Infection Flowsheets (Taken 11/01/202432) Infection Prevention: environmental surveillance performed single patient room provided rest/sleep promoted cohorting utilized Goal: Optimal Comfort and Wellbeing Outcome: Ongoing, Progressing Intervention: Monitor Pain and Promote Comfort Flowsheets (Taken 11/01/2024631) Pain Management Interventions: medication (see MAR) pillow support provided Intervention: Provide Person-Centered Care Flowsheets (Taken 11/01/2024631) Trust Relationship/Rapport: care explained emotional support provided empathic listening provided questions answered questions encouraged Problem: Skin Injury Risk Increased Goal: Skin Health and Integrity Outcome: Ongoing, Progressing Intervention: Optimize Skin Protection Flowsheets (Taken 11/01/2024631) Activity Management: activity adjusted per tolerance Pressure Reduction Techniques: frequent weight shift encouraged heels elevated off bed Pressure Reduction Devices: heel offloading device utilized positioning supports utilized Skin Protection: transparent dressing maintained silicone foam dressing in place incontinence pads utilized pulse oximeter probe site changed Head of Bed (HOB) Positioning: HOB at 30-45 degrees Problem: Fall Injury Risk Goal: Absence of Fall and Fall-Related Injury Outcome: Ongoing, Progressing Intervention: Identify and Manage Contributors Flowsheets (Taken 11/01/2024631) Medication Review/Management: medications reviewed Self-Care Promotion: independence encouraged Intervention: Promote Injury-Free Environment Flowsheets (Taken 11/01/2024631) Safety Promotion/Fall Prevention: activity supervised Problem: Functional Deficit Goal: Improved Balance and Postural Control Outcome: Ongoing, Progressing Intervention: Optimize Balance and Safe Activity Flowsheets (Taken 11/01/2024631) Activity Management: activity adjusted per tolerance Safety Promotion/Fall Prevention: activity supervised Self-Care Promotion: independence encouraged Goal: Optimal Cognitive Function Outcome: Ongoing, Progressing Intervention: Optimize Cognitive Function Flowsheets (Taken 11/01/2024631) Sensory Stimulation Regulation: quiet environment promoted Environment Familiarity/Consistency: daily routine followed Self-Care Promotion: independence encouraged Goal: Optimal Coordination Outcome: Ongoing, Progressing Intervention: Optimize Motor Coordination and Function Flowsheets (Taken 11/01/2024631) Self-Care Promotion: independence encouraged Goal: Improved Muscle Strength Outcome: Ongoing, Progressing Intervention: Optimize Muscle Strength Flowsheets (Taken 11/01/2024631) Activity Management: activity adjusted per tolerance Self-Care Promotion: independence encouraged Goal: Improved Muscle Tone Outcome: Ongoing, Progressing Goal: Optimal Range of Motion Outcome: Ongoing, Progressing Intervention: Maintain Functional Joint Range Position Flowsheets (Taken 11/01/2024 0632) Range of Motion: active ROM (range of motion) encouraged Positioning/Transfer Devices: repositioning sheet pillows Goal: Compensation for Sensory Deficit Outcome: Ongoing, Progressing Intervention: Optimize Sensory Function Flowsheets (Taken 11/01/2024 0632) Pressure Reduction Techniques: frequent weight shift encouraged heels elevated off bed Skin Protection: transparent dressing maintained silicone foam dressing in place incontinence pads utilized pulse oximeter probe site changed * Care Plan - Danitza Méndez RN - 10/31/2024 6:21 PM EDT Problem: Adult Inpatient Plan of Care Goal: Absence of Hospital-Acquired Illness or Injury Outcome: Ongoing, Progressing Intervention: Identify and Manage Fall Risk Flowsheets (Taken 10/31/20241816) Safety Promotion/Fall Prevention: activity supervised Intervention: Prevent Skin Injury Flowsheets Taken 10/31/20241816 Skin Protection: silicone foam dressing in place Taken 10/31/20241599 Body Position: turned Intervention: Prevent and Manage VTE (Venous Thromboembolism) Risk Flowsheets (Taken 10/31/2024 1600) VTE Prevention/Management: bilateral SCDs (sequential compression devices) on Intervention: Prevent Infection Flowsheets (Taken 10/31/20241816) Infection Prevention: single patient room provided rest/sleep promoted Goal: Optimal Comfort and Wellbeing Outcome: Ongoing, Progressing Intervention: Monitor Pain and Promote Comfort Flowsheets (Taken 10/31/2024 0445 by Baron Vo) Pain Management Interventions: position adjusted pillow support provided Intervention: Provide Person-Centered Care Flowsheets (Taken 10/30/2024 08 by Earline Ridley, RN) Trust Relationship/Rapport: care explained questions answered Problem: Skin Injury Risk Increased Goal: Skin Health and Integrity Outcome: Ongoing, Progressing Intervention: Optimize Skin Protection Flowsheets Taken 10/31/20241816 Skin Protection: silicone foam dressing in place Taken 10/31/20241599 Activity Management: activity adjusted per tolerance Head of Bed (HOB) Positioning: HOB at 30-45 degrees Intervention: Promote and Optimize Oral Intake Flowsheets (Taken 10/31/20241816) Oral Nutrition Promotion: other (see comments) Nutrition Interventions: diet adjusted Note: Tube feeds * Progress Notes - SharonjagjitBridgett Samreen - 10/31/2024 4:48 PM EDT Occupational Therapy Evaluation Patient Name: [place] Mata Today's Date: 10/31/2024 OT Discharge Recommendations: Subacute rehab Equipment Recommended: Defer to facility History [place] Mata is 64 y.o. female admitted 10/30/2024 for work-up of Fall. Hospital Course 1. Fall, initial encounter 2. Intraventricular hemorrhage (CMS/HCC) 3. Electrolyte abnormality 4. ABLA (acute blood loss anemia) Procedures Past Medical History Patient has a past medical history of Depression, Fibromyalgia, degenerative disc disease, Hyperlipidemia, Hypertension, Neuropathy, and Stroke (CMS/HCC). Past Surgical History Patient has a past surgical history that includes Replacement total hip lateral position; Lung surgery; Tonsillectomy; oral surgery; Carotid stent; and Renal artery stent. Precautions Medical Precautions: Fall precautions, Sinus Subjective Participants in Care Family/Caregiver Present: Yes Family/Caregiver: Adult Son, Other (Specify) (brother, niece) Brand Representative: Not Applicable Presentation Oxygen Therapy: Supplemental oxygen O2 Delivery Method: Nasal cannula O2 Flow Rate (L/min): 2 L/min Lines and Tubes: Intravenous access, Art Line, Telemetry, Urinary catheter, Dobhoff Pre-Session: Supine, Head of bed elevated, Lines intact Pre-Session Comments: RN agreeable to therapy session. Post-Session: Sitting in chair, Call light in reach, RN notified, Lines intact, Chair alarm Post-Session Comments: Positioned Pt for comfort. Family present at bedside. Home Living/Set-Up Lives With: Alone Home Type: House Home Adaptive Equipment: Rolling walker Home Layout: One level, Stairs to enter without rails Number of Stairs: 2 Bathroom: Tub/Shower: Walk-in shower, Grab bars, Shower chair Home Living Comments: Pt went to [facility] following CVA in June 2024. Since then, Pt has had 24/7 assistance from family at home. Prior Level of Function Receives Help From: (Family) Level of Mobility: Ambulatory- household only (primarily household since CVA, occasional trips to grocery store) Mobility [place]: Independent gait with device (rolling walker) History of Falls: Yes (approximately x1 fall per week) ADL Performance: Needs assistance Bathing: Independent Upper Body Dressing: Independent Lower Body Dressing: Independent Grooming: Independent Toileting: Needs device (bedside commode frame over toilet) Eating: Independent Home Management Skills: Needs assist Patient/Family Goals pt did not state, family at b/s agreeable to OT POC and discharge planning Objective Pain Pt with complaints of pain throughout BLE's to touch and movement, pt did not further elaborate on this pain, RN aware, pt was positioned for comfort Delirium Screening RASS: Alert and calm Confusion Assessment Method-ICU (CAM-ICU/PCAM-ICU) Feature 3: Altered Level of Consciousness: Negative Cognition Overall Cognitive Status: Impaired Arousal/Alertness: Delayed responses to stimuli Mood/Behavior: Alert Orientation Level Comments: Disoriented to month, able to recall current year with choices Single Step Commands: With increased time, With repetition, 75% of the time Multi-Step Commands: Unable to follow commands Method of Communication: Verbal Safety Judgment: Decreased awareness of need for assistance Awareness of Errors: Assistance required to identify errors made, Assistance required to correct errors made Deficit Awareness: Decreased awareness of deficits Attention Span: Difficulty attending to directions Vision - Complex Assessment Patient Visual Report: pt unable to open right eye, pt reports double and blurred vision throughoutleft eye, due to lethargy and decrease command following further visual testing was deferred Right Upper Extremity Examination RUE Assessment: (unable to formally assess due to lethargy and decrease command following) Manual Muscle Testing - RUE: (unable to formally assess due to lethargy and decrease command following) Light Touch: Right Upper Extremity: Intact ((+) w/d to pinch) Left Upper Extremity Examination LUE Assessment: (pt was observed actively moving left UE- however difficult to formally assess secondary to lethargy and limited command following) Manual Muscle Testing - LUE: (unable to formally assess due to lethargy and decrease command following) Light Touch: Left Upper Extremity: Intact ((+) w/d to pinch) Right Lower Extremity Examination RLE Assessment: (AAROM: Observed hip and knee approximately 0-50 deg, ankle (- 10) degrees from neutral dorsiflexion initially progressing to (-5) deg with stretching) Manual Muscle Testing - RLE: (hip and knee appears grossly 2-/5, 0/5 observed in ankle; mariement limited by decreased command following) RLE Tone: Hypertonic (presenting with mild-moderate extensor tone) Light Touch: Right Lower Extremity: Intact (per Pt report) Left Lower Extremity Examination LLE Assessment: Within Functional Limits (AAROM) Manual Muscle Testing: (grossly 2+/5; assessment limited by decreased command following) Light Touch: Left Lower Extremity: Intact (per Pt report) Perception/Coordination Coordination Movements are Fluid and Coordinated: No Coordination and Movement Description: difficult to formally assess due to lethary Bed Mobility Bed Mobility Interventions: pt was instructed on sequencing of limbs, advancing LE's off foot of bed as well as transitioning torso upright, pt with poor to fair carryover due to lethargy Bed Mobility Exam: Scooting/Bridging Level of [place]: Maximum assist (25% patient's effort) Physical/Nonphysical Assist: Verbal Cues, Nonverbal cues (demo/gestures), Additional assist utilized for safety Bed Mobility Exam: Supine to Sit Level of [place]: Dependent Physical/Nonphysical Assist: Verbal Cues, Nonverbal cues (demo/gestures), Additional assist utilized for safety Bed Mobility Exam: Sit to Supine Level of [place]: (pt was left seated OOBTC) Transfers Transfer Interventions: pt was instructed on b/l hand and feet placement when transitioning to upright, pt with overall fair carryover, pt with noted to have mild/moderate increase tone throughout right LE- limiting pt's ability to transition to upright Transfer Exam: Sit to stand Level of [place]: Maximum assist (25% patient's effort) (x2) Physical/Nonphysical Assist: Verbal Cues, Nonverbal cues (demo/gestures), Additional assist utilized for safety Assistive Device: Hand held assist Transfer Exam: Stand to Sit Level of [place]: Maximum assist (25% patient's effort) (x2) Physical/Nonphysical Assist: Verbal Cues, Nonverbal cues (demo/gestures), Additional assist utilized for safety Assistive Device: Hand held assist Transfer Exam: Bed to Chair/Chair to Bed Level of [place]: Maximum assist (25% patient's effort) (x2) Physical/Nonphysical Assist: Verbal Cues, Nonverbal cues (demo/gestures), Additional assist utilized for safety Type of Transfer: Stand-pivot Assistive Device: Hand held assist Functional Mobility Balance Static Sitting Balance Static Sitting-Balance Support: Feet supported, Right upper extremity support, Left upper extremitysupport Static Sitting-Level of Assistance: Minimum assistance (MAX A intiially progressing to MIN A) Stating Sitting - Interventions: Dynamic Sitting Balance Dynamic Sitting-Balance Support: Feet supported, Left upper extremity support, Right upper extremity support Dynamic Sitting-Balance: Lateral weight shifts, Anterior/Posterior weight shifts Level of Assistance: Maximum assistance Static Standing Balance Static Standing-Balance Support: Right upper extremity support, Left upper extremity support Static Standing-Level of Assistance: Maximum assistance Static Standing - Interventions: max assist x 2 (CUTTER [employer] PRESSER x 2), pt with liimited weight bearing throughout right LE due to increase tone Dynamic Standing Balance Dynamic Standing-Balance Support: Right upper extremity support, Left upper extremity support Dynamic Standing Level of Assistance: Maximum assistance Dynamic Standing - Interventions: pt required max assist x 2 (CUTTER AND PRESSER x 2) stand pivot sit transfer to b/s chair, pt with decrease weight bearing throughout right LE- difficulty weight shifting and advancing LE's forward Therapeutic Activity (14 minutes) pt was seen for one additional unit of all functional mobility due to line management, room setup and increase time required by pt - expressing fear of falling and wanting to be close to her son- please see above for details Self-Care Interventions Self Care/Home Management (ADLs) Time Entry: 25 Self-Care Interventions: pt was seen for 2 additional units of self care retraining this date including lengthy discussion regarding PLOF, available assistance, AE needs, as well as discharge planning recommendations, due to lethargy pt's family providing most all history, as pt's son, niece, and brother at [employer] prior to pt's CVA in spring pt was completely independent and independently living alone, son reports after stroke pt went to [facility] for 1 week prior to discharging to home with arwx, son reports stay was limited due to her desire to return home and insurance issues, per son ptwas ambulatory within the home with use of a rwx and pt was able to independently dress herself with significant increase time, son reports pt has had multiple falls since discharge to home, son reports someone is always with her and niece states she is there most all of the time, throughout lengthy discussion it was quite evident and agreed upon that pt is most appropriate to transition to a subacute rehab facility, as pt is a very HIGH FALL risk, is unable to ambulate at this time, nor is pt able to execute a self care routine requiring max assist x 2 for all mobility and most all self cares, family at b/s extremely supportive of pt, all quesions were answered and all pt needs were met prior to OT exiting room Feeding Feeding Interventions: (+)dobhoff Grooming Grooming Level of Assistance: Maximum assistance Bathing UE Bathing Level of Assistance: Dependent LE Bathing Level of Assistance: Dependent UE Dressing UE Dressing Level of Assistance: Dependent Lower Extremity Dressing Pants Level of Assistance: Dependent Sock Level of Assistance: Dependent Toileting Toileting Level of Assistance: Dependent Standardized Assessments Rd Index Feeding: Unable Bathing: Dependent Grooming: Needs help with personal care Dressing: Dependent Bowels: Incontinent (or needs to be given enemas) Bladder: Incontinent, or catheterized and unable to manage alone Toilet Use: Dependent Transfers (Bed to Chair and Back): Major help (one or two people, physical), can help Mobility (on Level Surfaces): Immobile or < 50 yards Stairs: Unable Total Score: 5 Assessment Please see above for details OT Findings: Impaired IADL performance, Impaired cognition, Decreased endurance/ventilation/gas exchange, Impaired vision/visual procesing, Impaired balance, Impaired postural/trunk control, Impairedmuscle tone, Impaired motor planning, Impaired functional mobility, Impaired executive function, Impaired attention, Impaired judgment during ADL, Decreased upper extremity strength, Decreased upper extremity range of motion, Impaired ADL performance Evaluation/Treatment Tolerance: Patient limited by pain, Patient limited by fatigue Rehab Potential: Fair, will monitor progress closely Barriers to Discharge: Comorbidities Demonstrates Need for Referral to Another Service: PM & R Eval Complexity Occupational Profile: Review of medical/therapy records and extensive additional review of physical, cognitive, or psychosocial history Performance Deficits: Activities of daily living (ADLs), Instrumental activities of daily living (IADLs), Routines, Social, Roles, Habits, Values/Beliefs/Spirituality, Social interaction skills, Social participation, Work, Physical, Personal Clinical Decision Making: High Overall Eval complexity: Complex OT Recommendations Discharge Destination: Subacute rehab Discharge Equipment: Defer to facility Plan - transfer training, self cares, mobility Planned OT Interventions ADL retraining, IADL retraining, Balance training, Bed mobility Training, Strengthening, Functionalmobility, Caregiver education, Cognitive retraining, Transfer training, Neuromuscular re-education OT Frequency 2 - 5 times per week OT Duration 2 weeks Goals OT GOAL DETAILS Time Frame OT Goal 1: pt will consistently be oriented x 4 x 3 tx sessions 2 weeks OT Goal 2: pt will consistently follow 1 step commands with 100% accuracy 2 weeks OT Goal 3: pt will complete bed to commode transfers with mod assist x 2 utilizing AAD PRN 2 weeks OT Goal 4: pt will complete simple grooming tasks with mod assist x 1 utilizing compensatory techniques as needed while seated EOB 2 weeks OT Goal 5: pt will participate in UE HEP to increase overall strength for increase independence with self cares and mobility 2 weeks Written by Bridgett Cha on 10/31/24 at 4:49 PM. * Progress Notes - MatthieuMonae - 10/31/2024 3:14 PM EDT Physical Therapy Evaluation Patient Name: [place]ia Mata Today's Date: 10/31/2024 PT Discharge Recommendations: Subacute rehab Equipment Recommended: Defer to facility History [place] Mata is 64 y.o. female admitted 10/30/2024 for work-up of Fall. Hospital Course 1. Fall, initial encounter 2. Intraventricular hemorrhage (CMS/HCC) 3. Electrolyte abnormality 4. ABLA (acute blood loss anemia) Procedures Past Medical History Patient has a past medical history of Depression, Fibromyalgia, degenerative disc disease, Hyperlipidemia, Hypertension, Neuropathy, and Stroke (CMS/HCC). Past Surgical History Patient has a past surgical history that includes Replacement total hip lateral position; Lung surgery; Tonsillectomy; oral surgery; Carotid stent; and Renal artery stent. Precautions Medical Precautions: Fall precautions, Sinus Subjective Pt and family agreeable to PT. Participants in Care Family/Caregiver Present: Yes Family/Caregiver: Adult Son, Other (Specify) (brother, niece) Brand Representative: Not Applicable Presentation Oxygen Therapy: Supplemental oxygen O2 Delivery Method: Nasal cannula O2 Flow Rate (L/min): 2 L/min Lines and Tubes: Intravenous access, Art Line, Telemetry, Urinary catheter, Dobhoff Pre-Session: Supine, Head of bed elevated, Lines intact Pre-Session Comments: RN agreeable to therapy session. Post-Session: Sitting in chair, Call light in reach, RN notified, Lines intact, Chair alarm Post-Session Comments: Positioned Pt for comfort. Family present at bedside. Home Living/Set-Up Lives With: Alone Home Type: House Home Adaptive Equipment: Rolling walker Home Layout: One level, Stairs to enter without rails Number of Stairs: 2 Bathroom: Tub/Shower: Walk-in shower, Grab bars, Shower chair Home Living Comments: Pt went to [facility] following CVA in June 2024. Since then, Pt has had 24/ assistance from family at home. Prior Level of Function Receives Help From: (Family) Level of Mobility: Ambulatory- household only (primarily household since CVA, occasional trips to grocery store) Mobility [place]: Independent gait with device (rolling walker, wears right AFO at baseline) History of Falls: Yes (approximately x1 fall per week) ADL Performance: Needs assistance Bathing: Independent Upper Body Dressing: Independent Lower Body Dressing: Independent Grooming: Independent Toileting: Needs device (bedside commode frame over toilet) Eating: Independent Home Management Skills: Needs assist Patient/Family Goals To improve mobility Objective Pain Pain: Yes Pain Rating (0-10): did not give rating Pain Location: bilateral LE's Pain Type: Acute pain Response/Interventions: increased ambulation or activity, pillow support provided, position changed, and RN notified Delirium Screening RASS: Drowsy Confusion Assessment Method-ICU (CAM-ICU/PCAM-ICU) Feature 3: Altered Level of Consciousness: Positive Cognition Overall Cognitive Status: Impaired Arousal/Alertness: Delayed responses to stimuli Mood/Behavior: Alert Orientation Level Comments: Disoriented to month, able to recall current year with choices Single Step Commands: With increased time, With repetition, 75% of the time Multi-Step Commands: Unable to follow commands Method of Communication: Verbal Safety Judgment: Decreased awareness of need for assistance Awareness of Errors: Assistance required to identify errors made, Assistance required to correct errors made Deficit Awareness: Decreased awareness of deficits Attention Span: Difficulty attending to directions Right Upper Extremity Examination RUE Assessment: (unable to formally assess due to lethargy and decrease command following) Manual Muscle Testing - RUE: (unable to formally assess due to lethargy and decrease command following) Light Touch: Right Upper Extremity: Intact ((+) w/d to pinch) Left Upper Extremity Examination LUE Assessment: (pt was observed actively moving left UE- however difficult to formally assess secondary to lethargy and limited command following) Manual Muscle Testing - LUE: (unable to formally assess due to lethargy and decrease command following) Light Touch: Left Upper Extremity: Intact ((+) w/d to pinch) Right Lower Extremity Examination RLE Assessment: (AAROM: Observed hip and knee approximately 0-50 deg, ankle (- 10) degrees from neutral dorsiflexion initially progressing to (-5) deg with stretching) Manual Muscle Testing - RLE: (hip and knee appears grossly 2-/5, 0/5 observed in ankle; assesement limited by decreased command following) RLE Tone: Hypertonic (presenting with mild-moderate extensor tone) Light Touch: Right Lower Extremity: Intact (per Pt report) Left Lower Extremity Examination LLE Assessment: Within Functional Limits (AAROM) Manual Muscle Testing: (grossly 2+/5; assessment limited by decreased command following) Light Touch: Left Lower Extremity: Intact (per Pt report) Bed Mobility Bed Mobility Interventions: Pt required max verbal + tactile cues for sequencing of supine>sit transfer: to attempt to advance bilateral LE's toward edge of bed. Ultimately required use of drawsheet to complete transfer due to lethargy and impaired command following. Bed Mobility Exam: Scooting/Bridging Level of [place]: Maximum assist (25% patient's effort) Physical/Nonphysical Assist: Verbal Cues, Nonverbal cues (demo/gestures), Additional assist utilized for safety Bed Mobility Exam: Supine to Sit Level of [place]: Dependent Physical/Nonphysical Assist: Verbal Cues, Nonverbal cues (demo/gestures), Additional assist utilized for safety Transfers Transfer Interventions: Pt performed x1 sit<>stands from bed. She required verbal and tactilecues for initiation, appropriate hand placement, and bilateral hip and knee extension. Blocking to bilateral knees to prevent buckling. Pt then performed stand pivot transfer from bed>chair towardleft side with verbal + tactile cues to facilitate weight shifting of hips toward chair and pivoting on left foot. Once Pt in recliner increased time spent positioning Pt's trunk in midline alignmentfor improved posture. Transfer Exam: Sit to stand Level of [place]: Maximum assist (25% patient's effort) Physical/Nonphysical Assist: Verbal Cues, Nonverbal cues (demo/gestures), Additional assist utilized for safety Assistive Device: Hand held assist Transfer Exam: Stand to Sit Level of [place]: Maximum assist (25% patient's effort) Physical/Nonphysical Assist: Verbal Cues, Nonverbal cues (demo/gestures), Additional assist utilized for safety Assistive Device: Hand held assist Transfer Exam: Bed to Chair/Chair to Bed Level of [place]: Maximum assist (25% patient's effort) Physical/Nonphysical Assist: Verbal Cues, Nonverbal cues (demo/gestures), Additional assist utilized for safety Type of Transfer: Stand-pivot Assistive Device: Hand held assist Balance Static Sitting Balance Static Sitting-Balance Support: Feet supported, Right upper extremity support, Left upper extremitysupport Static Sitting-Level of Assistance: Minimum assistance (MAX A intiially progressing to MIN A) Stating Sitting - Interventions: Pt sat edge of bed 8 minutes for improvement of upright tolerance,core and trunk strength, and sitting balance. She required verbal + tactile cues for upright posture, to attempt to place bilateral feet on floor (difficulty flexing knee to relax right LE due to apparent increased tone), and for midline alignment due to mild right lateral lean. Dynamic Sitting Balance Dynamic Sitting-Balance Support: Feet supported, Left upper extremity support, Right upper extremity support Dynamic Sitting-Balance: Lateral weight shifts, Anterior/Posterior weight shifts Level of Assistance: Maximum assistance Static Standing Balance Static Standing-Balance Support: Right upper extremity support, Left upper extremity support Static Standing-Level of Assistance: Maximum assistance Dynamic Standing Balance Dynamic Standing-Balance Support: Right upper extremity support, Left upper extremity support Dynamic Standing Level of Assistance: Maximum assistance Therapeutic Activity (38 minutes) See bed mobility, balance, and transfers for details. Increased time for line management. Educated Pt's family on PT plan of care, goals, and discharge recommendations. Standardized Assessments Standardized Assessments Standardized Assessments: [facility] 6-Clicks Mobility Assessment [facility] 6-Clicks Mobility Assessment Difficulty patient has turning over in bed (including adjusting bedclothes, sheets, and blankets)?:A lot Difficulty patient has sitting down on and standing up from a chair with arms (wheelchair, bedside commode, etc.)?: A lot Difficulty patient has moving from lying on back to sitting on the side of the bed?: A lot How much help does the patient need moving to and from a bed to a chair (including a wheelchair)?: A lot How much help does the patient need to walk in hospital room?: Unable How much help does the patient need climbing 3-5 steps with a railing?: Unable [facility] 6-Clicks Mobility Assessment Total : 10 Assessment Pt's overall mobility limited 2/2 below impairments. Vitals remained stable throughout session. Assessment somewhat limited due to lethargy and decreased command following. Pt would benefit from continued PT during this admission to address previously mentioned deficits and improve functional mobility. Pt is at increased risk of falls and is currently unable to ambulate a household distance or navigate x2 steps to enter her home which is in contrast to her baseline level of mobility. Recommend discharge to Subacute Rehab facility to further improve safety and independence with mobility prior to returning home, and to decrease caregiver burden. Impairments: Impaired gait dynamics/performance, Decreased endurance, ventilation, and/or gas exchange, Impaired locomotion, Impaired functional mobility/transfers, Impaired attention/alertness, Impaired cognition/safety awareness, Impaired balance, Decreased strength, Impaired postural/trunk contro l, Impaired muscle tone, Pain, Decreased range of motion, Impaired vision/visual processing Activity Limitations: Inability to sit independently, Inability to ambulate household distances, Inability to transfer independently, Impaired attention/alertness, Inability to ambulate independently, Inability to complete ADLs independently, Inability to ambulate community distances Participation Restrictions: Self-care, Home management, Community leisure Activity Tolerance: Tolerates 30 min activity with multiple rests Evaluation/Treatment Tolerance: Patient limited by fatigue Diagnosis: impaired functional mobility secondary to medical diagnosis Rehab Potential: Good, to achieve stated therapy goals Eval Complexity History Profile: 3 or more personal factors and/or comorbidities Clinical Presentation: Unstable and unpredictable characteristics Clinical Decision Making: High complexity PT Recommendations Discharge Destination: Subacute rehab Discharge Equipment: Defer to facility Plan Planned PT Interventions Balance training, Bed mobility training, Gait training, Transfer training, ROM, Strengthening, Stretching, Caregiver training, Functional Mobility, Neuromuscular re-education, Orthotic fitting/training, Postural re-education PT Frequency 2 - 5 times per week PT Duration 2 weeks Goals PT GOAL DETAILS Time Frame PT Goal 1: Pt will transfer supine<>sit MIN A 2 weeks PT Goal 2: Pt will transfer sit<>stand and bed<>chair MIN A with LRAD as appropriate 2 weeks PT Goal 3: Pt will ambulate x25ft MIN A with LRAD as appropriate 2 weeks PT Goal 4: Pt/Pt's family will be IND with HEP, safety recommendations, and discharge recommendations. 2 weeks Written by Monae Sommers on 10/31/24 at 5:03 PM. * Care Plan - Delfino Ching - 10/31/2024 1:45 PM EDT Problem: Mechanical Ventilation Invasive Goal: Effective Communication Outcome: Met Goal: Optimal Device Function Outcome: Met Goal: Mechanical Ventilation Liberation Outcome: Met Goal: Absence of Device-Related Skin and Tissue Injury Outcome: Met Goal: Absence of Ventilator-Induced Lung Injury Outcome: Met * Query Clarification Note - German Duke PA - 10/31/2024 1:45 PM EDT Physician Clarification Please review the following and provide your response below. Based on the information below please clarify if there is an associated link between the antithrombotic and the documented bleeding. [x]Bleeding is enhanced by antithrombotic []Bleeding is not enhanced by antithrombotic []Other (please specify) This documentation will become part of the patient's medical record. * Query Clarification Note - German Duke PA - 10/31/2024 1:43 PM EDT Physician Clarification Please review the following and provide your response below. Please review and consider documenting a diagnosis associated with the findings below. [x]Acute blood loss anemia []Other (please specify) []Labs not clinically significant This documentation will become part of the patient's medical record. * Consults - Nahed Zarco RD - 10/31/2024 11:28 AM EDT Adult Nutrition Evaluation Note [place] Mata 64 y.o. female CSN: [id number] Room/Bed 239/239A Nutrition evaluation type: assessment Reason for evaluation: [facility] course: 64 y.o female admitted after fall. OSH found cerebral artery hemmorhage, ad tripodfx of rt eye. Zygomatic arch rx. Plan to extubate. Past medical/ surgical history: Past Medical History[1] Surgical History[2] Social history: Additional comments: Visited room. Intubated at visit, now extubated. Not a big eater per family. Likes pepsi and chocolate. Off pressors. No significant weight changes. Vitals and Basic Assessment: BP: (!) 116/43 Temp: 37.9 ??C (100.2 ??F) Invasive Ventilator Initiated (ETT/Trach Only): Yes Oxygen Therapy: Supplemental oxygen O2 Delivery Method: Nasal cannula Benja Coma Scale Score: 10 Pietro/Cubbin Pressure Risk Score: 29 Edema: Generalized Allergies: NKFA Medications: Current Scheduled Medications[3] Current Continuous Medications[4] Current PRN Medications[5] Meds were reviewed: Yes Labs: BMP Na 141 Cl 110 (H) BUN 17 Glu 145 (H) K 4.3 Co2 22 Cr 0.99 Ca 8.2 (L) iCa 4.6; 4.4 (L) Mg 1.8 (L), Phos 2.9 Lactate 1.5 Lab Results Component Value Date CHOL 217 (H) 05/22/2023 CHOL 219 (H) 06/10/2021 TRIG 82 10/31/2024 TRIG 174 (H) 05/22/2023 TRIG 169 (H) 06/10/2021 HDL 54 05/22/2023 HDL 55 06/10/2021 LDLCALC 132 (H) 05/22/2023 LDLCALC 130.2 (H) 06/10/2021 Lab Results Component Value Date HGBA1C 5.7 (H) 07/20/2024 Anthropometrics: Height: 160 cm (5' 2.99 ) Weight: 67.6 kg (149 lb 0.5 oz) BMI (Calculated): 26.41 Weight Evaluation: Overweight (BMI 25-29.9) Polaris Body Weight (kg): 52.3 Percent Polaris Body Weight: 129 Adjusted Body Weight (kg): 56.1 Wt Readings from Last 5 Encounters: 10/30/24 67.6 kg (149 lb 0.5 oz) 06/19/23 58.9 kg (129 lb 13.6 oz) 05/22/23 59.1 kg (130 lb 3.2 oz) 07/08/21 58.3 kg (128 lb 9.6 oz) 06/17/21 60 kg (132 lb 3.2 oz) Estimated Needs: Kcal/ K - 35 Kcal Provided: 2027 - 2365 Kcal Needs Based On: Current weight Gm Protein/ Kg : 1.2 - 1.5 Protein Provided: 81 - 101 Protein Needs Based On: Current weight Metabolic Cart Study Results: Current Nutrition Intake: Diet Supplements: None Diet Order: NPO Enteral Nutrition Formula/Solution: Impact Peptide 1.5 Tube Feeding Route: [place]ak Current Tube Feed Rate (Continuous or Intermittent): 20 Goal Tube Feed Rate (Continuous or Intermittent): 55 Kcal Provided by EN: 660 Protein Provided by EN: 41 Water Provided by EN: 339 Grams of Carbs Provided by EN: 62 Diet Experience and Nutrition History: Diet Education Provided: Will monitor Pertinent home medications: Folvite, Remeron Nutrition Focused Physical Exam: Physical exam performed on (date): 10/31 Temples (muscles): None Clavicle (muscle): None Orbital (fat): Mild Triceps (fat): None Assessment of Malnutrition: Malnutrition Identified: No Nutrition Problem: Inadequate oral intake related to current medical status as evidenced by NPO diet. Status of Nutrition Diagnosis: New Nutrition Interventions and Recommendations: - PO diet per DIRECT CARE PROFESSIONAL - TF Recs: - Impact Peptide 1.5 @ 65 mL/hr (1430 mL/day) provides 2145 kcal, 134g protein, 200g CHO, 91g fat, 1101 mL water, and 143% DRIs vit/min. - Can start at 20 ml/hr advance by 10 ml q 6 hours - Free water per team - Document infusions Nutrition Monitoring and Goals: - Tolerate >80% of goal - Monitor weight, labs, and elytes Acuity Level: 3 Nahed L Back, RD [1] Past Medical History: Diagnosis Date Depression Fibromyalgia Hx of degenerative disc disease Hyperlipidemia Hypertension Neuropathy Stroke (CMS/HCC) [2] Past Surgical History: Procedure Laterality Date CAROTID STENT LUNG SURGERY ORAL SURGERY RENAL ARTERY STENT REPLACEMENT TOTAL HIP LATERAL POSITION TONSILLECTOMY [3] acetaminophen, 1,000 mg, Nasogastric, q6h BACILIO atorvastatin, 40 mg, Nasogastric, Nightly enoxaparin, 30 mg, Subcutaneous, BID FLUoxetine, 20 mg, Nasogastric, Daily lactated Ringer's, 500 mL, Intravenous, Once levETIRAcetam, 1,000 mg, Nasogastric, BID levothyroxine, 75 mcg, Nasogastric, q AM mupirocin, 1 Application, Each Nostril, BID pantoprazole, 40 mg, Intravenous, Daily polyethylene glycol, 17 g, Nasogastric, BID potassium & sodium phosphates, 1 packet, Nasogastric, q12h QUEtiapine, 150 mg, Nasogastric, Nightly senna-docusate, 2 tablet, Nasogastric, BID sodium chloride, 10 mL, Intravenous, q12h sodium chloride, 10 mL, Intravenous, q12h sodium chloride, 10 mL, Intravenous, q12h sodium chloride, 10 mL, Intravenous, q12h [4] sodium chloride, 75 mL/hr, Last Rate: 75 mL/hr (10/31/24 1401) [5] PRN medications: HYDROmorphone OR HYDROmorphone, oxyCODONE, [COMPLETED] Insert peripheral IV AND [COMPLETED] Saline lock IV AND sodium chloride AND sodium chloride, sodium chloride, sodium chloride, sodium chloride, sodium chloride * Progress Notes - Jeane Cowan - 10/31/2024 10:54 AM EDT Case Management Adult Initial Progress Note [place] Mata 64 y.o. female CSN: [id number] Admission: 10/30/2024 2:57 AM Primary Problem: Fall Cane Feeder reviewed chart and spoke with patient's son Sami at bedside to complete this Initial Case Management Assessment. Pt remained intubated in ICU level care and could not participate in conversation. PCP: Aman Hernandez MD Emergency Contact: Extended Emergency Contact Information Primary Emergency Contact: Artemio Urbina [employer] Relation: Son Secondary Emergency Contact: Trice Salazar [employer] Relation: Relative Preferred language: Stateless Brand Representative needed? No Insurance: Primary Visit Coverage Payer Plan Sponsor Code Group Number Group Name HU[employer]NA MEDICARE HU[employer]NA MEDICARE [id number] Primary Visit Coverage Subscriber Subscriber ID Subscriber Name Subscriber SSN Subscriber Address [id number] AL[place] MATA [id number] [address] [place] [address] Patient information: Primary Caregiver: Self Accompanied by/Relationship: Son Sami Support System: Immediate family, Extended family Daily Living Activities: Functional Status: Moderate assistance Living Arrangements: Alone Type of Residence: Private residence [address] [facility] [address] [address] Smoker in the Home?: N/A Current DME: Equipment Currently Used at Home: other (see comments) (Son unsure of DME at time of assessment) Income Information: Income Source: Retired Income/Expense Information: Income meets expenses Current Resources Utilized: None Housing Circumstances-Z Codes: Housing Circumstances (select all that apply): Low Income (101-300% Federal Poverty Guidlines) - Z596 Anticipated Discharge Date: TBD Patient's Discharge Goal: Home Assistance Available at Discharge: Family caretakers Discharge Transport: Family Follow Up Transport: Family Home Health / Home Infusion / Outpatient Dialysis Services: None reported. Living Will/Advance Directive/Power of Clinical Informatics Educator /Guardian: Pt's two sons are her healthcare surrogates. Copy of advanced directive in blue chart. Social Drivers of Health Food Insecurity: Patient Unable To Answer (10/31/2024) Hunger Vital Sign Worried About Running Out of Food in the Last Year: Patient unable to answer Ran Out of Food in the Last Year: Patient unable to answer Alcohol Use: Alcohol Misuse (07/20/2024) Received from [facility] AUDIT-C Q1: How often do you have a drink containing alcohol?: 4 or more times a week Q2: How many drinks containing alcohol do you have on a typical day when you are drinking?: 3 or 4 Q3: How often do you have six or more drinks on one occasion?: Patient declined Housing Stability: Patient Unable To Answer (10/31/2024) Housing Stability Vital Sign Unable to Pay for Housing in the Last Year: Patient unable to answer Number of Times Moved in the Last Year: Not on file Homeless in the Last Year: Patient unable to answer Tobacco Use: Medium Risk (09/01/2024) Received from [facility] Patient History Smoking Tobacco Use: Former Smokeless Tobacco Use: Never Passive Exposure: Past Transportation Needs: Patient Unable To Answer (10/31/2024) PRAPARE - Transportation Lack of Transportation (Medical): Patient unable to answer Lack of Transportation (Non-Medical): Patient unable to answer Depression: Not at risk (09/01/2024) Received from [facility] PHQ-2 Patient Health Questionnaire-2 Score: 0 Utilities: Patient Unable To Answer (10/31/2024) [facility] Utilities Threatened with loss of utilities: Patient unable to answer Stress: Not on file Intimate Partner Violence: Patient Unable To Answer (10/31/2024) Humiliation, Afraid, Rape, and Kick questionnaire Fear of Current or Ex-Partner: Patient unable to answer Emotionally Abused: Patient unable to answer Physically Abused: Patient unable to answer Sexually Abused: Patient unable to answer Physical Activity: Inactive (07/20/2024) Received from [facility] Exercise Vital Sign On average, how many days per week do you engage in moderate to strenuous exercise (like a brisk walk)?: 0 days On average, how many minutes do you engage in exercise at this level?: 0 min Social Connections: Unknown (07/20/2024) Received from [facility] Family and Community Support If for any reason you need help with day-to-day activities such as bathing, preparing meals, shopping, managing finances, etc., do you get the help you need?: I get all the help I need Lonely or Isolated: Not on file Financial Resource Strain: Patient Unable To Answer (10/31/2024) Overall Financial Resource Strain (CARDIA) Difficulty of Paying Living Expenses: Patient unable to answer Additional Comments: Pt presented to the hospital after a fall. Pt's son Sami stated that pt lives at home in [place], [place]. Sami stated that pt had a stroke earlier this year and since then family members have been staying with pt and she is rarely alone for more than a couple hours. Pt was at [facility] for rehab in June. Pt is currently intubated in ICU level care. SW/CM will continue to follow for resource needs and dispoplanning. Jeane Cowan, INFORMATION TECHNOLOGY OFFICER, INTERLOCKING AND SIGNAL MECHANIC Trauma/General Surgery ICU * Assessment & Plan Note - Micheal Espinoza MD - 10/31/2024 10:50 AM EDT Associated Problem(s): Fall Admit SGT ICU [x] Tertiary 10/31 [] Audit-C [] Patient will need ITSS evaluation when appropriate * Assessment & Plan Note - Micheal Espinoza MD - 10/31/2024 10:50 AM EDT Associated Problem(s): TBI (traumatic brain injury) SAH, IVH NSGY consult DDAVP given at OSH * Assessment & Plan Note - Micheal Espinoza MD - 10/31/2024 10:50 AM EDT Associated Problem(s): Carotid stenosis Coat Padder and mca stenosis Resume home meds as appropriate * Assessment & Plan Note - Micheal Espinoza MD - 10/31/2024 10:50 AM EDT Associated Problem(s): ABLA (acute blood loss anemia) Recheck hemogram and transfuse as necessary * Assessment & Plan Note - Micheal Espinoza MD - 10/31/2024 10:50 AM EDT Associated Problem(s): Hyperglycemia Likely reactive to trauma, recheck and treat as necessary * Assessment & Plan Note - Micheal Espinoza MD - 10/31/2024 10:50 AM EDT Associated Problem(s): Acute respiratory failure with hypoxia Wean vent as able * Assessment & Plan Note - Micheal Espinoza MD - 10/31/2024 10:50 AM EDT Associated Problem(s): Lactic acidosis IVF resuscitation and recheck as necessary * Assessment & Plan Note - Micheal Espinoza MD - 10/31/2024 10:50 AM EDT Associated Problem(s): Electrolyte abnormality Hypomagnesemia (POA) Hypocalcemia (POA) Replace/treat and recheck as necessary * Assessment & Plan Note - Micheal Espinoza MD - 10/31/2024 10:50 AM EDT Associated Problem(s): MELISSA (acute kidney injury) Avoid nephrotoxic agents as able and renally dose medications IVF resuscitation as needed * Assessment & Plan Note - Micheal Espinoza MD - 10/31/2024 10:50 AM EDT Associated Problem(s): Hypothyroidism Resume home meds as appropriate * Assessment & Plan Note - Micheal Espinoza MD - 10/31/2024 10:50 AM EDT Associated Problem(s): Hypertension Resume home meds as appropriate * Assessment & Plan Note - Micheal Espinoza MD - 10/31/2024 10:50 AM EDT Associated Problem(s): Hyperlipidemia Resume home meds as appropriate * Assessment & Plan Note - Micheal Espinoza MD - 10/31/2024 10:50 AM EDT Associated Problem(s): CVA (cerebral vascular accident) ([facility]) PMH CVA and R sided deficits Resume home meds as appropriate * Assessment & Plan Note - Micheal Espinoza MD - 10/31/2024 10:50 AM EDT Associated Problem(s): Injury of globe of eye, right, initial encounter S/p canthotomy at OSH OPH consult * Assessment & Plan Note - Micheal Espinoza MD - 10/31/2024 10:50 AM EDT Associated Problem(s): Overweight (BMI 25.0-29.9) Could complicate hospitalization and mobility * Progress Notes - Micheal Espinoza MD - 10/31/2024 10:48 AM EDTAssociated Order(s): Critical Care Post-Procedure Diagnose(s): Electrolyte abnormality; Fall, initial encounter; Intraventricular hemorrhage (CMS/HCC); ABLA (acute blood loss anemia) TRAUMA SURGERY TERTIARY SURVEY 10/31/24 Albania Mata HPI Albania Mata is a 64 y/o F with PMH CVA, R sided defecits on ASA/Plavix, HTN, HLP, CAD, and hypothyroidism. Presents s/p fall. Reversed with DDAVP. Injuries include: tSAH, IVH, R tripod fx with non-displaced ZMG, R globe hematoma s/p lateral canthotomy at OSH. Interval: NAEON, GCS 3/07/24, keppra ending 11/05, on sedation prop off, mmpc, home seroquel 150mg qhs. Hemodynamically stable off pressors. Extubate today cxr stable. Tfs at 30, can pause when extubated, on bowel reg last BM FIFTH HAND. UOP 0.5ml/kg/hr. Hgb 9.2 from 10.4, likely dilutional. Tmax 100.4, WBC stable, no abx. Edited by: Kerwin Johnson MD at 10/31/2024 0977 Are there limits on this patient's care or advanced wishes/documents available? No Past Medical History: Active Ambulatory Problems Diagnosis Date Noted No Active Ambulatory Problems Resolved Ambulatory Problems Diagnosis Date Noted No Resolved Ambulatory Problems Past Medical History: Diagnosis Date Depression Fibromyalgia Hx of degenerative disc disease Hyperlipidemia Hypertension Neuropathy Stroke ([facility]) Past Surgical History: Surgical History[1] Home Medications: Prior to Admission medications Medication Sig Start Date End Date Taking? Authorizing Provider amLODIPine (Norvasc) 5 MG tablet Take 1 tablet (5 mg total) by mouth 1 (one) time each day. Yes Aman Hernandez MD Aspirin Low Dose 81 MG EC tablet Take 1 tablet by mouth daily. 12/01/22 Yes Provider, Historical atorvastatin (Lipitor) 40 MG tablet Take 1 tablet by mouth daily. 03/02/23 Yes Provider, Historical clopidogrel (Plavix) 75 MG tablet 1 tablet. 11/26/22 Yes Provider, Historical FLUoxetine (PROzac) 20 MG capsule Take 1 capsule by mouth every morning. 09/21/24 Yes Provider, Historical folic acid (Folvite) 800 MCG tablet Take 1 tablet by mouth daily. 09/26/24 Yes Provider, Historical levothyroxine (Synthroid, Levoxyl) 75 MCG tablet Take 1 tablet by mouth daily. 04/14/23 Yes Provider, Historical mirtazapine (Remeron) 15 MG tablet Take 1 tablet by mouth nightly. Yes Provider, Historical oxybutynin XL (Ditropan-XL) 5 MG 24 hr tablet Take 1 tablet by mouth daily. 12/03/22 Yes Provider, Historical pramipexole (Mirapex) 1 MG tablet Take 1 tablet by mouth 3 times a day as needed. Yes Provider, Historical QUEtiapine (SEROquel) 100 MG tablet Take 1.5 tablets by mouth nightly. Yes Provider, Historical hydroCHLOROthiazide (HYDRODiuril) 25 MG tablet Take 1 tablet (25 mg) by mouth 1 (one) time each day. 10/30/24 Provider, Historical hydrOXYzine pamoate (Vistaril) 25 MG capsule TAKE 1 TO 2 CAPSULES BY MOUTH AT BEDTIME NIGHTLY NEEDED FOR SLEEP. 04/13/23 10/30/24 Provider, Historical Melatonin 10 MG tablet Take by mouth. 10/30/24 Provider, Historical metoprolol succinate XL (Toprol-XL) 25 MG 24 hr tablet Take 1 tablet (25 mg) by mouth 1 (one) time each day. 04/11/23 10/30/24 Provider, Historical QUEtiapine (SEROquel) 25 MG tablet Take 1 tablet (25 mg) by mouth every night. 05/22/23 10/30/24 Jennifer Adhikari APRN sertraline (Zoloft) 50 MG tablet Take 1 tablet (50 mg) by mouth 1 (one) time each day. 05/22/23 10/30/24 Jennifer Adhikari APRN Social History: Pt has reports that she has quit smoking. Her smoking use included cigarettes. She has a 40 pack-year smoking history. She has never been exposed to tobacco smoke. She has never used smokeless tobacco. No history on file for alcohol use and drug use. (details as available below) Social History Substance and Sexual Activity Alcohol Use None Social History Substance and Sexual Activity Drug Use Not on file Tobacco Use History[2] Audit-C for Alcohol Misuse Screening Lab Results Component Value Date ETOH <10 10/30/2024 Brief Intervention Performed: No due to intubated Referral to Treatment Made: No due to intubated ITSS deferred due to patient acuity, inability to complete screening, or anticipated length of stay. ITSS to be completed when appropriate, added to 'To Do' for delayed provider screening. Relevant review of systems was obtained as able and is negative unless stated above in HPI. Vital signs: Vitals: 10/31/24 0900 BP: Pulse: 108 Resp: 22 Temp: 37.8 ??C (100 ??F) SpO2: 100% Tertiary exam as documented below: Physical Exam: GEN: Acutely and critically ill appearing. Patient appears stated age. NEURO: GCS 361T HEENT: Mucous membranes appear moist. R periorbital ecchymosis and edema, normocephalic NECK: trachea midline INTEG: Mildly pallor. EXT: No appreciable joint swelling or deformities. CV: No appreciable edema. PULM: No tachypnea. GI: Nondistended, soft, and nontender. : No appreciable bladder distention. Voiding per urinary catheter PSYCH: Appropriate to situation. Intake/Output Summary (Last 24 hours) at 10/31/2024 1048 Last data filed at 10/31/2024 0600 Gross per 24 hour Intake 1159.75 ml Output 713 ml Net 446.75 ml Lines/Drains/Tubes: Patient Lines/Drains/Airways Status Active Airway Name Placement date Placement time Site Days ETT ETT - single 7 mm 10/30/24 0231 Oral 1 Output by Drain (mL) 10/29/24699 - 10/29/24185810/29/241899 - 10/30/24 0659 10/30/24699 - 10/30/24185810/30/241899 - 10/31/24 0659 10/31/24699 - 10/31/24 1048 Requested LDAs do not have output data documented. Labs in last 18 hours: CBC WBC 9.72 Hb 9.2 (L) Plt 250 Hct 29.8 (L) ANC ?? INR ??, PTT ??, Anti-Xa ?? MCV 89 BMP Na 141 Cl 110 (H) BUN 17 Glu 145 (H) K 4.3 Co2 22 Cr 0.99 Ca 8.2 (L) iCa 4.6; 4.4 (L) Mg 1.8 (L), Phos 2.9 Lactate 1.5 LFT AST ?? AlkPhos ?? T Prot ?? ALK ?? Bili ?? Alb ?? D.Bili ?? Lab Trends: H/H Results from last 7 days Lab Units 10/30/24231010/30/24 11210/30/24 0645 HEMOGLOBIN g/dL 9.2* 10.4* 10.3* HEMATOCRIT % 29.8* 33.5* 32.9* INR Cr Results from last 7 days Lab Units 10/30/24231010/30/24112410/30/24 0645 CREATININE mg/dL 0.99 1.12* 1.00 Radiology: No new imaging today. I performed a complete tertiary exam, reviewed patient history, lab studies and all available imaging. All traumatic or incidental findings have been documented. Assessment and Plan: Assessment & Plan Zygomatic arch fracture (CMS/HCC) Present on Admission: Yes Injury of globe of eye, right, initial encounter Present on Admission: Yes S/p canthotomy at OSH OPH consult Fall Present on Admission: Yes Admit SGT ICU [x] Tertiary 10/31 [] Audit-C [] Patient will need ITSS evaluation when appropriate TBI (traumatic brain injury) (CMS/HCC) Present on Admission: Yes SAH, IVH NSGY consult DDAVP given at OSH Carotid stenosis Present on Admission: Yes Coat Padder and mca stenosis Resume home meds as appropriate ABLA (acute blood loss anemia) Present on Admission: Yes Recheck hemogram and transfuse as necessary Hyperglycemia Present on Admission: Yes Likely reactive to trauma, recheck and treat as necessary Acute respiratory failure with hypoxia Present on Admission: Yes Wean vent as able Lactic acidosis Present on Admission: Yes IVF resuscitation and recheck as necessary Electrolyte abnormality Present on Admission: Yes Hypomagnesemia (POA) Hypocalcemia (POA) Replace/treat and recheck as necessary MELISSA (acute kidney injury) (CMS/HCC) Present on Admission: Yes Avoid nephrotoxic agents as able and renally dose medications IVF resuscitation as needed Hypothyroidism Present on Admission: Yes Resume home meds as appropriate Hypertension Present on Admission: Yes Resume home meds as appropriate Hyperlipidemia Present on Admission: Yes Resume home meds as appropriate CVA (cerebral vascular accident) (CMS/HCC) Present on Admission: Yes PMH CVA and R sided deficits Resume home meds as appropriate Overweight (BMI 25.0-29.9) Present on Admission: Yes Could complicate hospitalization and mobility Plan: FU OPH note ENT: sinus precautions NSGY: CT head stable keppra one week, Na goals Extubate Possibly d/c tube feeds pending extubation Add miralax Okay for pLOV tonight Tertiary note today Edited by: Eirca Castillo APRN at 10/31/2024 1048 Erica Castillo APRN New diagnoses, need for imaging or specialty consultation identified as present on admission via tertiary survey: No new injuries noted, awaiting OPH note. Critical Care Performed by: Micheal Espinoza MD Authorized by: Micheal Espinoza MD Critical care provider statement: Critical care time (minutes): 38 Critical care time was exclusive of: Separately billable procedures and treating other patients Critical care was time spent personally by me on the following activities: Evaluation of patient's response to treatment, examination of patient, obtaining history from patient or surrogate, development of treatment plan with patient or surrogate, ordering and performing treatments and interventions, ordering and review of laboratory studies, ordering and review of radiographic studies and ventilator management Comments: Seen and examined with the Advanced Practice Provider ([facility]). I attest to being personally involved in more than half the total time in patient care including obtaining and reviewing the history, performing and documenting the exam, and medical decision making. Neurosurgery following, stable head CT. Following commands on exam with sedation off. Sequelae of transfusion reaction appear resolved. Off vasopressors. Switched to pressure support and taking good volumes. Plan extubation today. No significant infectious concerns. [1] Past Surgical History: Procedure Laterality Date CAROTID STENT LUNG SURGERY ORAL SURGERY RENAL ARTERY STENT REPLACEMENT TOTAL HIP LATERAL POSITION TONSILLECTOMY [2] Social History Tobacco Use Smoking Status Former Current packs/day: 1.00 Average packs/day: 1 pack/day for 40.0 years (40.0 ttl pk-yrs) Types: Cigarettes Passive exposure: Never Smokeless Tobacco Never * Care Plan - Baron Vo - 10/31/2024 7:58 AM EDT Q2 neuro assessments done gcs=3T6 lilia afebrile patient moves all extremities with repeated instruction. Intubated prvc 30% sating>90%, TF going per orders propofol stopped, dilaudid minimal. Levo stopped this shift. Passing to day shift Problem: Mechanical Ventilation Invasive Goal: Effective Communication Outcome: Ongoing, Progressing Goal: Optimal Device Function Outcome: Ongoing, Progressing Goal: Mechanical Ventilation Liberation Outcome: Ongoing, Progressing Goal: Optimal Nutrition Delivery Outcome: Ongoing, Progressing Goal: Absence of Device-Related Skin and Tissue Injury Outcome: Ongoing, Progressing Goal: Absence of Ventilator-Induced Lung Injury Outcome: Ongoing, Progressing Problem: Adult Inpatient Plan of Care Goal: Plan of Care Review Outcome: Ongoing, Progressing Flowsheets (Taken 10/30/2024 0802) Plan of Care Reviewed With: family Goal: Patient-Specific Goal (Individualized) Outcome: Ongoing, Progressing Goal: Absence of Hospital-Acquired Illness or Injury Outcome: Ongoing, Progressing Goal: Optimal Comfort and Wellbeing Outcome: Ongoing, Progressing Problem: Skin Injury Risk Increased Goal: Skin Health and Integrity Outcome: Ongoing, Progressing Problem: Fall Injury Risk Goal: Absence of Fall and Fall-Related Injury Outcome: Ongoing, Progressing * Progress Notes - Sun Israel MD - 10/31/2024 7:16 AM EDT Neurosurgery Consult Follow-up Note History, exam, and imaging review with attending and discussed on rounds this morning. [place] Mata is a 64 y.o. female presenting w/ scattered contusions/tSAH w/o MLS s/p low mechanism trauma 2/2 ophthalmologic emergency . Exam: GCS (EMV): 361T Intubated Awake/alert/interactive R eye swollen shut Face symmetric Follows commands appropriately L>R Right side hemiparetic (baseline) Imaging: Repeat CTH without contrast was reviewed and stable. - No neurosurgical intervention - Hold antiplatelet and anticoagulant medications for two weeks unless holding medications is strongly contraindicated. - Hold DVT ppx for at least 24 hours following demonstration of stable bleed. - cont neuro checks - HOB > 45 degrees - Keppra BID 1 wk - Maintain normoNa and normotension - Other injuries per respective teams - Rest of care per primary team - Neurosurgery will continue to follow - Thank you for allowing us to participate in the care of this patient. Please call with any questions or concerns. [phone] Sun Israel PGY-1 Pager: [phone] Cosigned by Barney Osman MD at 10/31/2024 3:11 PM EDT Associated attestation - Barney Osman MD - 10/31/2024 3:11 PM EDT I saw and evaluated the patient with the resident/fellow. I discussed the case with the resident/fellow and agree with the findings and plan as documented. * Progress Notes - Castillo Wilson MD - 10/31/2024 3:21 AM EDT Asked by RN to review and reorder restraints. Chart reviewed and patient visualized. Patient has continued need for restraints. Order renewed. * Care Plan - Kerwin Hernandez - 10/31/2024 1:06 AM EDT Problem: Mechanical Ventilation Invasive Goal: Optimal Device Function Outcome: Ongoing, Progressing Intervention: Optimize Device Care and Function Flowsheets (Taken 10/31/2024 0106) Airway/Ventilation Management: airway patency maintained humidification applied oxygen therapy provided positive pressure ventilation provided pulmonary hygiene promoted Airway Safety Measures: mask valve resuscitator at bedside manual resuscitator/mask at bedside oxygen flowmeter at bedside suction at bedside high-efficiency antimicrobial filters maintained * Consults - Shannon Mack MD - 10/30/2024 7:49 PM EDTAssociated Order(s): IP CONSULT TO OPHTHALMOLOGY OPHTHALMOLOGY CONSULT NOTE Requesting Service: TICU Reason for Consult: Globe Hematoma Exam Date: 10/30/2024 8:32 PM Chief Complaint: History of Present Illness: [place] Mata is a 64 y.o. female with PMH CVA, R sided defecits on ASA/Plavix, HTN, HLP, CAD, andhypothyroidism. Presents s/p fall. Pt presenting with medial wall orbital fracture 2/2 fall. Pt found to have right tripod fracture with non- displaced zygomatic arch and comminuted right orbital floor fracture on imaging. At OSH, pt had elevated IOP of 55 2/2 retrobulbar hematoma, after lat canth, d ecreased to 35. Admitted to trauma surg, seen by ENT, ophtho consulted for eval. Pt is sedated at time of examination, unable to comply with some parts of eye exam. Pt is also on neuro checks, will defer dilation for now. Past Medical & Surgical History Past Medical History[1] Surgical History[2] Past Ocular History: See HPI Medications: Current Outpatient Medications Medication Instructions amLODIPine (NORVASC) 5 mg, Oral, Daily Aspirin Low Dose 81 mg, Daily atorvastatin (LIPITOR) 40 mg, Daily clopidogrel (PLAVIX) 75 mg FLUoxetine (PROZAC) 20 mg, Every morning folic acid (FOLVITE) 0.8 mg, Daily levothyroxine (SYNTHROID, LEVOXYL) 75 mcg, Daily mirtazapine (REMERON) 15 mg, Nightly oxybutynin XL (DITROPAN-XL) 5 mg, Daily pramipexole (Mirapex) 1 MG tablet Take 1 tablet by mouth 3 times a day as needed. QUEtiapine (SEROQUEL) 150 mg, Nightly Allergies: Allergies[3] Family History: Family History[4] No reported family history of eye disease. Social History: Social History[5] Denies alcohol, tobacco, and illicit drug use. Lives in [place], [place]. Review of Systems 14 point review of systems negative unless otherwise stated in HPI Physical Examination: Vitals Blood pressure (!) 116/43, pulse 58, temperature 37.5 ??C (99.5 ??F), temperature source Bladder, resp. rate 17, weight 67.6 kg (149 lb 0.5 oz), SpO2 100%. General sedated Neurology sedated Base Eye Exam Visual Acuity Unable to perform 2/2 sedation Tonometry (8:16 PM) Right Left Pressure 25 16 Pupils Dark Light Shape React APD Right 2 1.5 Round minimally reactive None Left 2 1.5 Round minimally reactive None Extraocular Movement EOM with some restiction in all quadrants on ductions, no evidence of muscle entrapment such as bradycardia. Neuro/Psych Mood/Affect: Sedated Slit Lamp and Fundus Exam External Exam Right Left External Dried blood, edematous left side of face Normal Slit Lamp Exam Right Left Lids/Lashes Very edematous lids with dried blood. S/p lateral canthotomy, LLL mobile to qtip application, canthus appears to be severed properly Normal for age Conjunctiva/Sclera Chemosis 360, subconj heme diffuse Normal Cornea Clear and compact Clear and compact Anterior Chamber Deep and quiet Deep and quiet Iris Normal pupil size and shape Normal pupil size and shape Lens NS NS Imaging: CT Head wo IV Contrast Result Date: 10/30/2024 Impression: 1. Stable intraventricular hemorrhage which is similar to the recent CT head dated 10/30/2024 but increased compared to prior CT head dated 10/29/2024. Confluent periventricular hypodensity could represent nonspecific white matter changes due to chronic microvascular ischemia versus transependymal edema. 2. Encephalomalacic area in the left occipital lobe likely represent sequelae of remote ischemic injury. Lacunar infarcts in bilateral basal ganglia. 3. No calvarial fracture is seen. Fractures of the right orbital benites and the right maxillary sinus with hemosinus. Further evaluationwith a CT face is recommended. CRITICAL RESULT: No. COMMUNICATION: Per this written report. Draftedby Mariia Domínguez MD on 10/30/2024 6:51 PM Final report signed by Mariia Domínguez MD on 10/30/2024 7:04 PM XR Chest 1 View Result Date: 10/30/2024 Impression: Right IJ CVC tip in the SVC. No pneumothorax. Increased left pleural effusion and a similar opacities. CRITICAL RESULT: No. COMMUNICATION: Per this written report. Drafted by Nolvia Clements MD on 10/30/2024 4:29 PM Final report signed by Nolvia Clements MD on 10/30/2024 4:31 PM XR Chest 1 View Result Date: 10/30/2024 Impression: Tip of the ET tube is 4 cm from the emily. Cardiomediastinal silhouette within normal limits. Left lung base opacity could be atelectasis or airspace disease. No pneumothorax. Sacrum is obscured by contrast. Otherwise no pelvic fracture CRITICAL RESULT: No. COMMUNICATION: Per this written report. Drafted by Leandro Escobar MD on 10/30/2024 3:17 AM Final report signed by Leandro Escobar MD on 10/30/2024 3:19 AM XR Pelvis 1 or 2 Views Result Date: 10/30/2024 Impression: Tip of the ET tube is 4 cm from the emily. Cardiomediastinal silhouette within normal limits. Left lung base opacity could be atelectasis or airspace disease. No pneumothorax. Sacrum is obscured by contrast. Otherwise no pelvic fracture CRITICAL RESULT: No. COMMUNICATION: Per this written report. Drafted by Leandro Escobar MD on 10/30/2024 3:17 AM Final report signed by Leandro Escobar MD on 10/30/2024 3:19 AM Labs/Microbiology: Labs in last 18 hours CBC WBC 9.31 Hb 10.4 (L) Plt 364 Hct 33.5 (L) ANC ?? INR ??, PTT ??, Anti-Xa ?? BMP Na 144 Cl 107 BUN 18 Glu 124 (H) K 3.7 Co2 23 Cr 1.12 (H) Ca 8.6 (L) iCa 4.7; 4.7 Mg 1.8 (L), Phos 3.1 Lactate 2.2 (H) LFT AST ?? AlkPhos ?? T Prot ?? ALK ?? Bili ?? Alb ?? D.Bili ?? Assessment & Plan: #Orbital fractures 2/2 fall - Pt presents 2/2 fall, found to have right tripod fracture with non-displaced zygomatic arch and comminuted right orbital floor fracture. Admitted to trauma surg, seen by ENT who recommended ophtho eval. - Pt is sedated at time of examination, unable to comply with some parts of eye exam. Pt is also onneuro checks, will defer dilation for now. - exam without evidence of globe trauma/rupture - EOM with some restriction in all quadrants on ductions, no evidence of muscle entrapment such as bradycardia. - recommend sinus precautions including no nose blowing, nasal decongestants 3 days max, cold compresses 20 min q1-2h for 24-48 hours with 30 degree incline at rest to reduce swelling - fracture repair per face team - recommend follow up with ophthalmology for recheck of vision and DFE once patient is awake, consult resident to see pt if still inpatient at that time, otherwise will schedule for clinic if able Thank you for this consult. Please call with questions. Shannon Mack MD Ophthalmology Pager: [phone] [1] Past Medical History: Diagnosis Date Depression Fibromyalgia Hx of degenerative disc disease Hyperlipidemia Hypertension Neuropathy Stroke (CMS/HCC) [2] Past Surgical History: Procedure Laterality Date CAROTID STENT LUNG SURGERY ORAL SURGERY RENAL ARTERY STENT REPLACEMENT TOTAL HIP LATERAL POSITION TONSILLECTOMY [3] Allergies Allergen Reactions Cephalosporins Other - please document in the comment field Other Other - please document in the comment field Vicryl sutures Penicillin G Unknown - Patient states they do not know rxn details Penicillins Other - please document in the comment field [4] Family History Problem Relation Name Age of Onset Diabetes Mother Diabetes Sister Diabetes Brother [5] Social History Tobacco Use Smoking status: Former Current packs/day: 1.00 Average packs/day: 1 pack/day for 40.0 years (40.0 ttl pk-yrs) Types: Cigarettes Passive exposure: Never Smokeless tobacco: Never Cosigned by Tito Urbina MD at 10/31/2024 11:15 PM EDT * Procedures - Erica Castillo APRN - 10/30/2024 4:02 PM EDTAssociated Order(s): Central Line Post-Procedure Diagnose(s): Fall, initial encounter Central Line Performed by: Erica Castillo APRN Authorized by: Erica Castillo APRN Consent: Consent obtained: Written Consent given by: son. Risks, benefits, and alternatives were discussed: yes Alternatives discussed: No treatment [place] protocol: Imaging studies available: yes Site/side marked: yes Immediately prior to procedure, a time out was called: yes Patient identity confirmed: Arm band Attending Supervision?: yes Pre-procedure details: Indication(s): central venous access Hand hygiene: Hand hygiene performed prior to insertion Sterile barrier technique: All elements of maximal sterile technique followed Skin preparation: Chlorhexidine Skin preparation agent: Skin preparation agent completely dried prior to procedure Anesthesia: Anesthesia method: None Procedure details: Location: R internal jugular Patient position: Reverse Trendelenburg Procedural supplies: Triple lumen Landmarks identified: yes Ultrasound guidance: yes Ultrasound guidance timing: prior to insertion and real time Sterile ultrasound techniques: Sterile gel and sterile probe covers were used Number of attempts: 1 Successful placement: yes Post-procedure details: Post-procedure: Dressing applied and line sutured Assessment: Blood return through all ports and no pneumothorax on x-ray Procedure completion: Tolerated well, no immediate complications Cosigned by Isabelle Soto MD at 11/02/2024 10:20 AM EDT Associated attestation - Isabelle Soto MD - 11/02/2024 10:20 AM EDT I was present for the entirety of the procedure(s). * Care Plan - Karen Rodríguez - 10/30/2024 1:12 PM EDT Problem: Mechanical Ventilation Invasive Goal: Optimal Device Function Outcome: Ongoing, Progressing Intervention: Optimize Device Care and Function Flowsheets (Taken 10/30/2024 08 by Earline Ridley, LUANNE) Airway/Ventilation Management: airway patency maintained Oral Care: suction toothette Airway Safety Measures: mask valve resuscitator at bedside suction at bedside manual resuscitator/mask at bedside * Nursing Note - Suzy Lopez RN - 10/30/2024 10:25 AM EDT 0815 platelets started, verbal consent given and questions answered 0830 upon 15 min check patient was hypotensive with baseline heart rate and temp. 1 Liter bolus NS started through alternate line. Provider at bedside. 300mcg of phenylephrine were given to increase patient BP. Connie baldwin. RN asked provider if this was possible reaction due to just decreased BP with sedation now stopped. RN was told no and hang the second unit of platelets. A few mins into second unit patient became hypothermic at 35.9 (only .4C off baseline) and began desating to 87%. The platelets were stopped and labs sent. Levo started, a line placed, Benedryl given and vy hugger placed. 0940 rash noticed * Progress Notes - Isabelle Soto MD - 10/30/2024 9:49 AM EDTAssociated Order(s): Critical Care Post-Procedure Diagnose(s): Debility; Electrolyte abnormality; Acute respiratory failure with hypoxia; Fall, initial encounter; Intraventricular hemorrhage (CMS/HCC); Injury of globe of eye, right, initial encounter; Hyperlipidemia, unspecified hyperlipidemia type; Closed fracture of right zygomatic arch, initial encounter (CMS/HCC); ABLA (acute blood loss anemia); Hypertension, unspecified type;Traumatic brain injury, with unknown loss of consciousness status, initial encounter Trauma ICU Interval Summary 10/30/24 [place] Mata HPI [place] Mata is a 64 y/o F with PMH CVA, R sided defecits on ASA/Plavix, HTN, HLP, CAD, and hypothyroidism. Presents s/p fall. Reversed with DDAVP. Injuries include: tSAH, IVH, R tripod fx with non-displaced ZMG, R globe hematoma s/p lateral canthotomy at OSH. Interval: Admitted overnight after the above mechanism and injuries. CTH with worsening IVG, two units PLTS transfuse. GCS 461T, on propofol and dilaudid gtts. BP and HR are hemodynamically appropriate. Minimal vent settings. Tmax 98.1, not on abx. Last BM FIFTH HAND, currently NPO. Edited by: Erica Castillo APRN at 10/30/2024 0935 Patient Active Problem List Diagnosis Date Noted Zygomatic arch fracture ([facility]) 10/30/2024 Injury of globe of eye, right, initial encounter 10/30/2024 Fall 10/30/2024 TBI (traumatic brain injury) ([facility]) 10/30/2024 Carotid stenosis 10/30/2024 ABLA (acute blood loss anemia) 10/30/2024 Hyperglycemia 10/30/2024 Acute respiratory failure with hypoxia 10/30/2024 Lactic acidosis 10/30/2024 Electrolyte abnormality 10/30/2024 MELISSA (acute kidney injury) ([facility]) 10/30/2024 Hypothyroidism 10/30/2024 Hypertension 10/30/2024 Hyperlipidemia 10/30/2024 CVA (cerebral vascular accident) ([facility]) 10/30/2024 Plan: Transfused PLTS, concern for transfusion rxn, labs sent, benadryl and neb given Follow additional NSGY recs Keppra to oral, tylenol added Home statin and levothyroxine added DHT and feeds Tertiary note tomorrow Edited by: Erica Castillo APRN at 10/30/2024 0944 Erica Castillo APRN Trauma Surgery [phone] Critical Care Performed by: Isabelle Soto MD Authorized by: Isabelle Soto MD Critical care provider statement: Critical care time (minutes): 65 Critical care time was exclusive of: Separately billable procedures and treating other patients andteaching time Critical care was time spent personally by me on the following activities: Development of treatmentplan with patient or surrogate, discussions with consultants, evaluation of patient's response to treatment, examination of patient, ordering and performing treatments and interventions, ordering and review of laboratory studies, ordering and review of radiographic studies and ventilator management I assumed subsequent critical care for this patient from a provider in my division, on the same day: yes Comments: I attest to being involved in more than half the total time for 65 minutes in patient care. Repeat head CT this morning concerning for worsening intraventricular hemorrhage. Discussed with neurosurgery and transfused platelets due to home use of antiplatelet medications. Shortly after transfusion, patient developed diffuse rash with worsening opacities on CXR. Concern for possible transfusion reaction, suspected TRALI. Repeat physical exams without increasing ventilator requirements andsignificant improvement of rash after administration of benadryl. Medication list reviewed, no other new medication identified as a suspected cause for reaction. Ongoing supportive care with ventilator management, nebulized treatments, and avoidance of platelet transfusion. Added tylenol for multimodal pain control. Plan for placement of dobhoff tube today and initiation of tube feeds, advance togoal as tolerated. Q1 hour neuro exams. Isabelle Soto MD * Procedures - Erica Castillo APRN - 10/30/2024 9:11 AM EDTAssociated Order(s): Arterial line Post-Procedure Diagnose(s): Intraventricular hemorrhage (CMS/HCC) Arterial line Performed by: Erica Castillo APRN Authorized by: Erica Castillo APRN Consent: Consent obtained: Written Consent given by: son. Risks discussed: Bleeding and infection [place] protocol: Imaging studies available: yes Site/side marked: yes Patient identity confirmed: Arm band Indications: Indications: hemodynamic monitoring and multiple ABGs Pre-procedure details: Skin preparation: Chlorhexidine Sedation: Sedation type: None Procedure details: Location: R radial Nathen's test performed: yes Needle gauge: 20 G Placement technique: Seldinger and ultrasound guided Number of attempts: 1 Transducer: waveform confirmed Post-procedure details: Post-procedure: Sterile dressing applied CMS: Normal Procedure completion: Tolerated well, no immediate complications Cosigned by Isabelle Soto MD at 11/02/2024 10:22 AM EDT * Assessment & Plan Note - Keri Patel MD - 10/30/2024 8:50 AM EDT Associated Problem(s): Intraventricular hemorrhage (CMS/HCC) (Deleted) Neurosurgery consulted and following Reverse Plavix with DDAVP Weaned sedation * Assessment & Plan Note - Keri Patel MD - 10/30/2024 8:50 AM EDT Associated Problem(s): Injury of globe of eye, right, initial encounter Ophthalmology did not recommend acute intervention at this time when consulted in the emergency department * Care Plan - Baron Vo - 10/30/2024 8:03 AM EDT 4t6 on neuro check afebrile vented at 40% SAT passed , repeat ct done labs sent, family updated. Rhoncorous breath sounds, episodes of hypotension relieved with pausing pain/sedation. Moves all extremities, lilia. Passing to day shift Problem: Mechanical Ventilation Invasive Goal: Effective Communication Outcome: Ongoing, Progressing Goal: Optimal Device Function Outcome: Ongoing, Progressing Goal: Mechanical Ventilation Liberation Outcome: Ongoing, Progressing Goal: Optimal Nutrition Delivery Outcome: Ongoing, Progressing Goal: Absence of Device-Related Skin and Tissue Injury Outcome: Ongoing, Progressing Goal: Absence of Ventilator-Induced Lung Injury Outcome: Ongoing, Progressing Problem: Adult Inpatient Plan of Care Goal: Plan of Care Review Outcome: Ongoing, Progressing Flowsheets (Taken 10/30/2024 0802) Plan of Care Reviewed With: family Goal: Patient-Specific Goal (Individualized) Outcome: Ongoing, Progressing Goal: Absence of Hospital-Acquired Illness or Injury Outcome: Ongoing, Progressing Goal: Optimal Comfort and Wellbeing Outcome: Ongoing, Progressing * Significant Event - Robbin Koch MD - 10/30/2024 7:11 AM EDT Repeat CTH showed enlarged IVH, recommend 2 units of PLT STAT Robbin Nielson MD Resident Physician, PGY-2 Department of Neurosurgery [facility] Cosigned by Barney Osman MD at 10/30/2024 7:50 AM EDT Associated attestation - Barney Osman MD - 10/30/2024 7:50 AM EDT I discussed the case with the resident/fellow and agree with the findings and plan as documented. * Consults - Georgette Song MD - 10/30/2024 4:05 AM EDTAssociated Order(s): Consult to ENT/Otolaryngology Images from the original note were not included. Consult to ENT/Otolaryngology Consult performed by: Georgette Song MD Consult ordered by: Iker Reagan MD Reason for consult: facial fx Otolaryngology-Head and Neck Surgery Consult Note 10/30/24 HISTORY OF PRESENT ILLNESS [place] Mata is a 64 y.o. female with PMHx significant for CVA, R hemiparesis, carotid stent on Plavix and HTN who presents to ED intubated and sedated following unwitnessed fall. Niece at bedside who provided independent history. She reports that her aunt got up during the night and experienced a fall. Her other aunt found her following the incident. At OSH,she was found to have retrobulbar hematoma s/p lateral canthotomy, scattered tSAH/contusions and facial fractures. Prior to transfer, she was intubated for airway protection. ENT consulted for facial fractures. REVIEW OF SYSTEMS A 14-point review of systems was performed and is negative except as noted in HPI. PAST MEDICAL HISTORY Past Medical History[1] PAST SURGICAL HISTORY Surgical History[2] ALLERGIES Allergies[3] FAMILY HISTORY Reviewed and non-contributory SOCIAL HISTORY Tobacco Use: Medium Risk (09/01/2024) Received from [facility] Patient History Smoking Tobacco Use: Former Smokeless Tobacco Use: Never Passive Exposure: Past Alcohol Use: Alcohol Misuse (07/20/2024) Received from [facility] AUDIT-C Q1: How often do you have a drink containing alcohol?: 4 or more times a week Q2: How many drinks containing alcohol do you have on a typical day when you are drinking?: 3 or 4 Q3: How often do you have six or more drinks on one occasion?: Patient declined MEDICATIONS: Current Medications[4] PHYSICAL EXAMINATION: 05/22/2023 3:03 PM 05/22/2023 3:22 PM 06/19/2023 3:29 PM 10/30/2024 12:18 AM 10/30/2024 2:28 AM 10/30/2024 2:31 AM 10/30/2024 2:59 AM Vitals Systolic 140 140 122 145 144 Diastolic 98 100 84 75 81 Heart Rate 108 74 75 81 86 Temp 36.9 C 36.5 C Resp 24 16 16 Height (cm) 160 cm 160 cm Weight (kg) 59.058 kg 58.9 kg 67.6 kg BMI 23.06 kg/m2 23 kg/m2 26.4 kg/m2 BSA (m2) 1.62 m2 1.62 m2 1.73 m2 Visit Report Report Report Report Gen: Intubated, sedated Head: Normocephalic, right periorbital edema and ecchymosis Eyes: No scleral icterus, ight periorbital edema and ecchymosis, s/p right lateral canthotomy with bloody drainage Ears: Pinnae without laceration or deformity, no drainage Nose: Nares patent, no drainage, minimal dried blood Mouth: Mucous membranes pink and moist, 7.0 ETT Neck: Soft, supple, no palpable masses Chest: Symmetric chest rise, unlabored breathing on MV CV: No cyanosis, no edema Ext: Full ROM, no gross deformities Skin: Warm, well perfused Psych: UTD LABS CBC WBC 18.78 (H) Hb 12.0 Plt 278 Hct 38.2 ANC ?? INR 1.1, PTT ??, Anti-Xa ?? BMP Na ?? Cl ?? BUN ?? Glu ?? K ?? Co2 ?? Cr ?? Ca ?? iCa 4.7 Mg ??, Phos ?? Lactate ?? IMAGING CT Face: Right tripod fracture with non-displaced zygomatic arch and comminuted right orbital floorfracture ASSESSMENT/PLAN [place] Mata is a 64 y.o. female with PMHx significant for CVA, R hemiparesis, carotid stent on Plavix and HTN who presents to ED intubated and sedated following unwitnessed fall. She was found to have right tripod fracture with non-displaced zygomatic arch and comminuted right orbital floor fracture. #Facial laceration - Use half-strength hydrogen peroxide on a Q-tip to clean the wound/sutures of crusting. Pat dry, then use thin layer of bacitracin twice daily on wound for 5 days. After 5 days, stop the antibiotic ointment, and use thin layer of Vaseline or Aquaphor until fully healed. - When showering, do not have wound in direct spray; let the soapy water run over the wound and do not scrub. Pat dry. May fully submerge in 3 days. -Once completely healed, use sunblock or physical protection (e.g., broad- brimmed hat) when out in the sun for 6 months to prevent hyperpigmentation. -Vitamin E or Mederma may be used in 1 month to reduce scarring. #Facial fractures - No immediate surgical intervention by ENT indicated at this time. - Will discuss possible operative intervention at Trauma conference on 11/02 - Pain management per primary team - Sinus Precautions: To decrease pressure in sinuses and avoid facial swelling and crepitus please: do not blow nose (gently wipe if runny) do not use straws sneeze with your mouth open do not smoke for 2 weeks use a stool softener while if constipated to avoid straining Thank you for involving us in the care of this patient. Please call with any questions or concerns. Georgette Song MD, PGY-3 Otolaryngology - Head and Neck Surgery [1] Past Medical History: Diagnosis Date Depression Fibromyalgia Hx of degenerative disc disease Hyperlipidemia Hypertension Neuropathy Stroke (CMS/HCC) [2] Past Surgical History: Procedure Laterality Date CAROTID STENT LUNG SURGERY ORAL SURGERY RENAL ARTERY STENT REPLACEMENT TOTAL HIP LATERAL POSITION TONSILLECTOMY [3] Allergies Allergen Reactions Cephalosporins Other - please document in the comment field Other Other - please document in the comment field Vicryl sutures Penicillin G Unknown - Patient states they do not know rxn details Penicillins Other - please document in the comment field [4] Current Facility-Administered Medications: HYDROmorphone (Dilaudid) bolus from bag, 0.25 mg, Intravenous, q10 min PRN OR HYDROmorphone (Dilaudid) bolus from bag, 0.5 mg, Intravenous, q10 min PRN, Katharine Savage MD hydromorphone 20 mg in NS 100 mL infusion (200 mcg/mL), 0.25-2 mg/hr, Intravenous, Titrated, Katharine Savage MD propofol (Diprivan) infusion 10 mg/mL, 10-50 mcg/kg/min, Intravenous, Titrated, Katharine Savage MD Current Outpatient Medications: amLODIPine (Norvasc) 5 MG tablet, Take 1 tablet (5 mg total) by mouth 1 (one) time each day., Disp:30 tablet, Rfl: 5 Aspirin Low Dose 81 MG EC tablet, Take 1 tablet (81 mg) by mouth 1 (one) time each day., Disp: , Rfl: atorvastatin (Lipitor) 40 MG tablet, Take 1 tablet (40 mg) by mouth 1 (one) time each day., Disp: ,Rfl: clopidogrel (Plavix) 75 MG tablet, 1 tablet (75 mg)., Disp: , Rfl: hydroCHLOROthiazide (HYDRODiuril) 25 MG tablet, Take 1 tablet (25 mg) by mouth 1 (one) time each day., Disp: , Rfl: hydrOXYzine pamoate (Vistaril) 25 MG capsule, TAKE 1 TO 2 CAPSULES BY MOUTH AT BEDTIME NIGHTLY NEEDED FOR SLEEP., Disp: , Rfl: levothyroxine (Synthroid, Levoxyl) 50 MCG tablet, Take 1 tablet (50 mcg) by mouth 1 (one) time eachday., Disp: , Rfl: Melatonin 10 MG tablet, Take by mouth., Disp: , Rfl: metoprolol succinate XL (Toprol-XL) 25 MG 24 hr tablet, Take 1 tablet (25 mg) by mouth 1 (one) timeeach day., Disp: , Rfl: mirtazapine (Remeron) 15 MG tablet, Take 1 tablet (15 mg) by mouth 1 (one) time each day., Disp: , Rfl: oxybutynin XL (Ditropan-XL) 5 MG 24 hr tablet, Take 1 tablet (5 mg) by mouth 1 (one) time each day., Disp: , Rfl: pramipexole (Mirapex) 1 MG tablet, pramipexole 1 mg tablet, Disp: , Rfl: QUEtiapine (SEROquel) 25 MG tablet, Take 1 tablet (25 mg) by mouth every night., Disp: 30 tablet, Rfl: 1 sertraline (Zoloft) 50 MG tablet, Take 1 tablet (50 mg) by mouth 1 (one) time each day., Disp: 30 tablet, Rfl: 1 Cosigned by Sandra Merritt MD at 11/08/2024 6:15 PM EDT * Consults - Angle Dumas MD - 10/30/2024 3:43 AM EDTAssociated Order(s): Inpatient consult to Neurosurgery Inpatient consult to Neurosurgery Consult performed by: Angle Dumas MD Consult ordered by: Katharine Savage MD Reason for Consult Mild-moderate TBI, low mechanism, tSAH, contusions Requesting Service SGT Requested Date/Time 10/30/2024 3:44 AM History Of Present Illness [place] Mata is a 64 y.o. female w/ PMH of recent CVA (baseline R hemiparesis), ASA, Plavix, HTN,HLD, carotid stent ([facility] [place], ), DDD who presents from OSH after unwitnessed fall out of bed, found with R orbital swelling and decreased vision. OSH imaging revealed R orbital tripod fracture, retrobulbar hematoma (IOP 55), and scattered tSAH/contusions Underwent emergent lateral canthotomy(IOP ? to 35). Initially GCS 14-15, intubated for airway pre- transfer. PMH significant for prior CVA with baseline R hemiparesis. On aspirin and Plavix. Vitals stable, Cr normal. Imaging: CTH: Small IVH, scattered tSAH, contusions, no large ICH, no significant midline shift. CTA no obvious aneurysms or vascular malformations Neuro Exam GCS (EMV): 461T Intubated Awake/alert/interactive R eye swollen shut Face symmetric Follows commands appropriately L>R Right side hemiparetic (baseline) Past Medical History[1] Surgical History[2] Tobacco Use: Medium Risk (09/01/2024) Received from [facility] Patient History Smoking Tobacco Use: Former Smokeless Tobacco Use: Never Passive Exposure: Past Current Scheduled Medications[3] Current Continuous Medications[4] Allergies[5] Impression This is a 64 y.o. female w/ scattered contusions/tSAH w/o MLS s/p low mechanism trauma 2/2 ophthalmologic emergency Plan: [] No acute neurosurgical intervention. [] Reverse ASA/Plavix w/ ddAVP per pharmacy [] Recommend continued neuro checks for at least the next 48 hours. [] Keep HOB > 45 degrees [] Wean off sedation as able [] F/u repeat CTH in 6 hrs from last scan [] Keppra bid x 1 week [] Maintain normoNa and normotension. [] Other injuries per respective teams [] Neurosurgery will continue to follow Please Call NSGY w/ any exam changes, questions, or concerns. Angle Dumas MD PGY-3, Neurosurgery [1] Past Medical History: Diagnosis Date Depression Fibromyalgia Hx of degenerative disc disease Hyperlipidemia Hypertension Neuropathy Stroke (CMS/HCC) [2] Past Surgical History: Procedure Laterality Date CAROTID STENT LUNG SURGERY ORAL SURGERY RENAL ARTERY STENT REPLACEMENT TOTAL HIP LATERAL POSITION TONSILLECTOMY [3] [4] HYDROmorphone, 0.25-2 mg/hr propofol, 10-50 mcg/kg/min [5] Allergies Allergen Reactions Cephalosporins Other - please document in the comment field Other Other - please document in the comment field Vicryl sutures Penicillin G Unknown - Patient states they do not know rxn details Penicillins Other - please document in the comment field Cosigned by Barney Osman MD at 10/30/2024 7:43 AM EDT Associated attestation - Barney Osman MD - 10/30/2024 7:43 AM EDT I saw and evaluated the patient with the resident/fellow. I discussed the case with the resident/fellow and agree with the findings and plan as documented. * H&P - Keri Patel MD - 10/30/2024 3:15 AM EDTAssociated Order(s): Consult to Trauma Surgery Trauma Alert? Yes Trauma Alert Consult to Trauma Surgery Consult performed by: Keri Patel MD Consult ordered by: Iker Reagan MD Time of Consultation: 229 Time of Trauma Evaluation: 239 Arrival Date: 10/30/24 Arrival Time: 229 Referring Hospital: [facility] Injury Date: 10/29/24 Injury Time: 190 Transport Mode: Mode of Arrival: Ambulance Mechanism of Injury Fall Distance from standing Farm Related Injury: no Work Related Injury: no History Of Present Illness [place] Mata is a 64 y.o. female presenting with history of CVA, right hemiparesis, carotid stenton Plavix and aspirin, hypertension who presents to the emergency department as a trauma alert for ground level unwitnessed fall. Patient was seen at outside hospital after a ground level mechanical fall, for the opportunity to be leg of retrobulbar hematoma requiring lateral canthotomy went outside hospital. Intra-ocular pressure upwards of 55 on the right, patient was subsequently intubated at outside hospital for transport. On arrival, patient intra-ocular pressures 17 and otherwise hemodynamically stable. Old Chart Reviewed: yes Total fluids given prior to arrival 0 ml. Loss of Consciousness: no Past Medical History She has a past medical history of Depression, Fibromyalgia, degenerative disc disease, Hyperlipidemia, Hypertension, Neuropathy, and Stroke ([facility] Reviewed as documented above Surgical History She has a past surgical history that includes Replacement total hip lateral position; Lung surgery;Tonsillectomy; oral surgery; Carotid stent; and Renal artery stent. Reviewed as documented above Family History Family History[1] Negative Social History She reports that she has quit smoking. Her smoking use included cigarettes. She has a 40 pack-year smoking history. She has never been exposed to tobacco smoke. She has never used smokeless tobacco. No history on file for alcohol use and drug use. Reviewed as documented above Allergies Cephalosporins, Other, Penicillin g, and Penicillins Reviewed as documented above Medications Current Medications[2] Reviewed as documented above Occupational History Occupational history[3] Employer: No address on file. Negative Immunizations reviewed VACCINE / DOSE DATE DATE DATE DATE DATE DATE Flu 10/08/2017 01/10/2019 11/02/2019 02/01/2021 02/03/2022 11/10/2022 Tetanus 07/16/2009 Pneumovax 07/16/2009 01/10/2019 Shingles Review of Systems Relevant review of systems was obtained as able and is negative unless stated above in HPI. Physical Exam Constitutional: Interventions: She is intubated. Cervical collar in place. HENT: Head: Comments: Right periorbital hematoma and ecchymoses, proptosis of right eye, s/p lateral canthotomy Eyes: Pupils: Pupils are equal, round, and reactive to light. Cardiovascular: Rate and Rhythm: Normal rate and regular rhythm. Pulmonary: Effort: She is intubated. Abdominal: General: Abdomen is flat. Palpations: Abdomen is soft. Skin: General: Skin is warm. Capillary Refill: Capillary refill takes less than 2 seconds. Neurological: GCS: GCS eye subscore is 1. GCS verbal subscore is 1. GCS motor subscore is 5. Rectal exam was deferred. Last Recorded Vitals Blood pressure (!) 86/38, pulse 83, temperature 36.4 ??C (97.5 ??F), resp. rate 16, weight 67.6 kg (149 lb 0.5 oz), SpO2 100%. [place] Benja Coma Scale Best Eye Response: Spontaneous Best Verbal Response: None Best Motor Response: Follows commands Benja Coma Scale Score: 11 Intubated Yes Oral Recent Results Labs in last 18 hours CBC WBC 12.35 (H) Hb 10.3 (L) Plt 218 Hct 32.9 (L) ANC ?? INR ??, PTT ??, Anti-Xa ?? BMP Na 139 Cl 105 BUN 15 Glu 119 (H) K 4.5 Co2 23 Cr 1.00 Ca 8.8 (L) iCa 4.7 Mg 1.8 (L), Phos 3.2 Lactate ?? LFT AST ?? AlkPhos ?? T Prot ?? ALK ?? Bili ?? Alb ?? D.Bili ?? Radiology FAST not performed / unindicated Images personally reviewed and consistent with the following: Plain Films: Chest x-ray, pelvic x-ray CT Scans: Patient underwent trauma pain scans at outside hospital, underwent repeat CT head here today Impression: Intraventricular hemorrhage, zygomatic arch fracture, globe injury of right eye, Assessment & Plan Intraventricular hemorrhage (CMS/HCC) Neurosurgery consulted and following Reverse Plavix with DDAVP Weaned sedation Zygomatic arch fracture (CMS/HCC) Injury of globe of eye, right, initial encounter Ophthalmology did not recommend acute intervention at this time when consulted in the emergency department Disposition: Admitted to Trauma ICU Keri Patel MD [1] Family History Problem Relation Name Age of Onset Diabetes Mother Diabetes Sister Diabetes Brother [2] Current Facility-Administered Medications Medication Dose Route Frequency Provider Last Rate Last Admin phenylephrine in NS (Avtar-Synephrine) 100 mcg/mL prefilled syringe - Pyxis Override Pull acetaminophen (Tylenol) tablet 1,000 mg 1,000 mg Oral q6h Erica Leone APRN EPINEPHrine (Adrenalin) 1 mg/10mL injection - Pyxis Override Pull HYDROmorphone (Dilaudid) bolus from bag 0.25 mg Intravenous q10 min PRN Katharine Savage MD Or HYDROmorphone (Dilaudid) bolus from bag 0.5 mg Intravenous q10 min PRN Katharine Savage MD hydromorphone 20 mg in NS 100 mL infusion (200 mcg/mL) 0.25-2 mg/hr Intravenous Titrated Kristen Savage MD 1.25 mL/hr at 10/30/24454 0.25 mg/hr at 10/30/24454 levETIRAcetam (Keppra) tablet 1,000 mg 1,000 mg Oral BID Erica Castillo APRN mupirocin (Bactroban) 2 % ointment 1 Application 1 Application Each Nostril BID Chirag Zambrano PA pantoprazole (Protonix) injection 40 mg 40 mg Intravenous Daily Chirag Zambrano PA propofol (Diprivan) infusion 10 mg/mL 10-50 mcg/kg/min Intravenous Titrated Katharine Savage MD 12.17 mL/hr at 10/30/24 0452 30 mcg/kg/min at 10/30/24 045 senna-docusate (Marley-Colace) 8.6-50 MG per tablet 2 tablet 2 tablet Oral BID Erica Castillo APRN sodium chloride 0.9 % flush 10 mL 10 mL Intravenous q12h Chirag Zambrano PA 10 mL at 10/30/247 And sodium chloride 0.9 % flush 10 mL 10 mL Intravenous PRN Chirag Zambrano PA sodium chloride 0.9 % infusion 75 mL/hr Intravenous Continuous Chirag Zambrano PA 75 mL/hr at 10/30/249 75 mL/hr at 10/30/24458 [3] Cosigned by Katharine Savage MD at 11/04/2024 2:20 PM EDT Associated attestation - Katharine Savage MD - 11/04/2024 2:20 PM EDT 64 yo female on ASA Plavix presenting from OSH after a fall from bed resulting in intraventricular hemorrhage, R eye retrobulbar hematoma requiring lateral canthotomy at OSH, and facial fracture. Reverse antiplatelet agents with DDAVP. Close neuro monitoring for TBI, will require repeat CT head and monitoring for hematoma expansion. Ophtho for R eye injury. Face. Admit to TICU. I saw and evaluated the patient with the resident/fellow. I discussed the case with the resident/fellow and agree with the findings and plan as documented. Critical Care Attestation: Patient is critically ill due to need for ongoing intensive neuromonitoring, cardiopulmonary monitoring, and respiratory monitoring and support. I have directly seen and delivered critical care services to this patient. Critical care time was spent personally by me on the following activities: Obtaining history from patient or surrogate, development of treatment plan with patient or surrogate, discussions with primary provider, evaluation of patient's response to treatment, examination of patient, ordering and performing treatments and interventions, ordering and review of laboratory studies, ordering and review of radiographic studies.I assumed subsequent critical care for this patient from a provider in my division on the same day:No. The total critical care time that I have personally invested is 40 minutes. Critical care time was exclusive of separately billable procedures, treating other patients, and teaching time. * ED Notes - Leia Ojeda RN - 10/30/2024 3:12 AM EDT Patient arrived intubated from outside hospital as a trauma alert. All ED documentation completed on paper prior to EPIC downtime resolving. * Consults - Hugo Flores - 10/30/2024 2:30 AM EDT Pastoral Care Note [employer] responded to trauma alert. Medical team tended to patient. No family present at this time. Pastoral Care Provided For: Patient Patient Profile: Consult Reasons: Trauma alert Unable to Assess: No family present at this time, Unavailable Spiritual Assessment: Interventions: Interventions Provided: Other (Comment) (medical team with patient. no family present.) Pastoral Care Outcomes: * Significant Event - Dereck Agrawal MD - 10/30/2024 2:28 AM EDT I was present at the trauma activation. I have spoken with the EM physician who is performing the evaluation. ATLS resuscitation is in process and I have assessed the need for immediate surgery, intervention and/or imaging. Ongoing workup and stabilization per EM physician. Trauma/Surgical Critical Care will be available as needed. Dereck Agrawal MD General Surgery - PGY4 * ED Provider Notes - Jacques Kelly, - 10/30/2024 2:28 AM EDT Images from the original note were not included. - HPI Chief Complaint Patient presents with Trauma Alert HPI Patient is a 64-year-old female with a past medical history of CVA, right hemiparesis, carotid stent on Plavix and aspirin, hypertension who presents to the emergency department as a trauma alert forground level unwitnessed fall. Patient was intubated at outside hospital. Family is able to provideadditional history report that she got up during the night and had a ground level fall. She was found by another family member. Patient unable to provide additional history due to being intubated upon arrival. EMS reports that patient had a lateral canthotomy completed outside hospital prior to transfer. Patient was intubated for airway protection. Patient History Past Medical History[1] Surgical History[2] Family History[3] Social History[4] Allergies: Allergies[5] Physical Exam ED Triage Vitals Temp Pulse Resp BP -- -- -- -- SpO2 Temp src Heart Rate Source Patient Position -- -- -- -- BP Location FiO2 (%) -- -- Physical Exam Vitals and nursing note reviewed. Constitutional: General: She is not in acute distress. Appearance: She is well-developed. HENT: Head: Normocephalic and atraumatic. Comments: Swelling and hematoma around the right eye. No other abrasions or lacerations around the head or neck. Right Ear: External ear normal. Left Ear: External ear normal. Eyes: Conjunctiva/sclera: Conjunctivae normal. Comments: Ocular pressure 17 mm Hg right eye, extraocular movements intact bilaterally. 3 mm and reactive to light bilaterally Cardiovascular: Rate and Rhythm: Normal rate and regular rhythm. Heart sounds: No murmur heard. Pulmonary: Effort: Pulmonary effort is normal. No respiratory distress. Breath sounds: Normal breath sounds. Abdominal: Palpations: Abdomen is soft. Tenderness: There is no abdominal tenderness. Musculoskeletal: General: No swelling. Cervical back: Neck supple. Skin: General: Skin is warm and dry. Capillary Refill: Capillary refill takes less than 2 seconds. Neurological: Mental Status: She is alert. Psychiatric: Mood and Affect: Mood normal. No data recorded ED Course & MDM - Assessment: 64 y.o. female presents to ED with complaint of unwitnessed ground level fall, transferred from OSH. It should be noted that the chronic conditions includes CVA, right hemiparesis, carotid stent on Plavix and aspirin, hypertension, which currently is not at goal therapy. This complicates the clinical picture because it Comorbidities: may be exacerbating symptoms, increases the amount and complexity of data to be reviewed, and increases the risk for morbidity per review of the chart from outsidehospital patient has a cerebral artery hemorrhage, tripod fracture of the right eye as well as retrobulbar hematoma. Status post lateral canthotomy at outside hospital. Differential Diagnosis: Hematoma, epidural hematoma, subdural hematoma, subarachnoid hemorrhage, intraparenchymal hemorrhage, contusion, concussion, TBI, facial fractures, pneumothorax, hemothorax, rib fractures, among other injuries In order to fully explore the differential diagnosis the following treatments and tests were ordered: ED Medication Administration from 10/30/2024 0020 to 10/30/2024 0319 Date/Time Order Dose Route Action 10/30/2024 0256 EDT desmopressin (DDAVP) 27 mcg in sodium chloride 0.9 % 50 mL IVPB 27 mcg Intravenous New Bag All Other Orders Ordered Status Ordering Provider 10/30/24 0300 Triglycerides Every Mon/Bia Comments: Please draw lab from area not near where Propofol is infusing. If Propofol is discontinued. Triglyceride monitoring is not indicated. Start Status Ordering Provider 10/31/24 0600 Scheduled DANIELLA, KATHARINE Bernstein 11/03/24 0600 Scheduled DANIELLA, KATHARINE S 11/07/24 0600 Scheduled DANIELLA, KATHARINE S 11/10/24 0600 Scheduled DANIELLA, KATHARINE S 11/14/24 0600 Scheduled DANIELLA, KATHARINE S 11/17/24 0600 Scheduled DANIELLA, KATHARINE S 11/21/24 0600 Scheduled DANIELLA, KATHARINE S 11/24/24 0600 Scheduled DANIELLA, KATHARINE S Ordered DANIELLA, KATHARINE S 10/30/24 0319 Consult to Trauma Surgery Once Specialty: Trauma Surgery Provider: (Not yet assigned) Ordered JACQUES KELLY 10/30/24 031 ED to floor bed request Once Ordered LETICIA JACQUES B 10/30/24 031 Consult to ENT/Otolaryngology Once Specialty: Otolaryngology Provider: (Not yet assigned) Ordered LETICIA JACQUES B 10/30/24 0309 XR Pelvis 1 or 2 Views Once In process IKER REAGAN 10/30/24 0308 Alcohol Profile Plasma Once Collected KATHARINE SAVAGE 10/30/24 030 XR Chest 1 View One time imaging In process IKER REAGAN MANSOOR S 10/30/24 0308 Blood gas, venous Once Final result KATHARINE SAVAGE 10/30/24 030 CBC W/O Differential Once Final result KATHARINE SAVAGE 10/30/24 030 APTT Once In process KATHARINE SAVAGE 10/30/24 0308 Protime-INR Once In process KATHARINE SAVAGE 10/30/24 0300 ICU Target Pain Score Until discontinued Comments: Initiate and titrate analgesia to attain goal CPOT first prior to initiating sedation unless otherwise ordered. Goal is to provide adequate pain management prior to initiating sedative agents. Target consistent patient goal CPOT as ordered. Document CPOT per nursing policy prior to and following PRN dosing and with any changes in infusionrate. Ordered KATHARINE SAVAGE 10/30/24 0300 Target arousal level - RASS: RASS 0 to -2 (Routine) Until discontinued Comments: Target consistent patient goal RASS as ordered. Document RASS every 2 hours and before and after PRN bolus dosing and with any changes in infusion rate. If deep sedation requested by provider, notify provider for updated RASS goal order. Ordered KATHARINE SAVAGE On initial evaluation patient is intubated, breath sounds equal bilaterally. 2+ radial pulses bilaterally. Patient has a no eye opening response but withdraws to pain and gives no vocal response. GCSof 6T as patient does have flexion withdrawal from pain. After initial primary examination measuredhigh pressure on the right side were lateral canthotomy was completed. Pressures were at 17 mm Hg compared to a pressures measured at 55 at outside hospital. There is some mild oozing of blood and hematoma and tenderness to palpation of the right maxilla. Otherwise no other intra oral trauma or other lacerations or hematomas in the head. No crepitus or tenderness of the chest wall. No obvious deformities or lacerations of the upper extremities or lower extremities. There is some swelling of thelateral aspect of the right hip. Abdomen is soft and nontender. 2+ dorsalis pedis pulses bilaterally. Consulted with the Ophthalmology and ENT who is covering face. Ophthalmology did not feel the need to evaluate the patient at the bedside due to normalization of eye pressure. ENT agreed to evaluate the patient at bedside. Trauma team at bedside agreed to consult with the neurosurgery. Patient otherwise remained stable in the emergency department and was put on a ventilator. Vitals were stable in the ED as well. No additional CT scans were completed as all trauma scans were completed outside hospital. Repeat chest x-ray does not show pneumothorax and ET tube was inappropriate position. Pelvic x-ray with no obvious fractures or open book E injury. Admitted to the trauma ICU immediately. Social Determinates of Health Risks (including Economic Stability, Education and level of understanding, Healthcare access and quality and concerning social factors): None identified on this visit Ultimately, this patient was Was admitted (Admission) There were no encounter diagnoses.. Patient believed to require admission for the listed diagnoses. The Trauma Surgery service was consulted for admission and was agreeable to admit to ICU. ED Prescriptions None Disposition Admit - [1] Past Medical History: Diagnosis Date Depression Fibromyalgia Hx of degenerative disc disease Hyperlipidemia Hypertension Neuropathy Stroke (CMS/HCC) [2] Past Surgical History: Procedure Laterality Date CAROTID STENT LUNG SURGERY ORAL SURGERY RENAL ARTERY STENT REPLACEMENT TOTAL HIP LATERAL POSITION TONSILLECTOMY [3] Family History Problem Relation Name Age of Onset Diabetes Mother Diabetes Sister Diabetes Brother [4] Tobacco Use Smoking status: Former Current packs/day: 1.00 Average packs/day: 1 pack/day for 40.0 years (40.0 ttl pk-yrs) Types: Cigarettes Passive exposure: Never Smokeless tobacco: Never [5] Allergies Allergen Reactions Cephalosporins Other - please document in the comment field Other Other - please document in the comment field Vicryl sutures Penicillin G Unknown - Patient states they do not know rxn details Penicillins Other - please document in the comment field Jacques Kelly DO Resident 10/30/24 0828 Cosigned by Iker Reagan MD at 10/30/2024 11:32 PM EDT Associated attestation - Iker Reagan MD - 10/30/2024 11:32 PM EDT I saw and evaluated the patient with the resident/fellow. I discussed the case with the resident/fellow and agree with the findings and plan as documented. * ED Triage Notes - Mague Ortez RN - 10/30/2024 2:28 AM EDT Pt presents from OSH after having unwitnessed fall, OSH found cerebral artery hemmorhage, ad tripodfx of rt eye. Pt initial GCS 15 upon arrival to OSH, before transport to pt was intubated. +BT plavix, unknown LOC, VSS documented in this encounter Plan of Treatment Upcoming Encounters Date Type Department Care Team (Latest Contact Info) Description 12/20/2024 2:00 PM EDT Pre-Admission Testing [facility] [address] [place] [address] 12/27/2024 7:30 AM EST Appointment [facility] [address] [place] [address] 12/30/2024 1:00 PM EST Office Visit [facility] [address] [place] [address] Yobani Benoit MD [address] [place] [address] 02/02/2025 9:00 AM EST Appointment [facility] [address] [place] [address] 05/24/2025 2:30 PM EDT Office Visit [facility] [address] [place] [id number] Navya Woody MD [address] [place] [address] 06/07/2025 2:00 PM EDT Consult [place] [facility] [address] [place] [address] Haseeb Dias MD [address] [place] [address] Scheduled Referrals Name Type Priority Associated Diagnoses Orde r Schedule Discharge Ambulatory referral to Neurosurgery Outpatient Referral Routine Fall, initial encounter Traumatic brain injury, with unknown loss of consciousness status, initial encounter ([facility]) Expected: 11/12/2024 (Approximate), Expires: 05/16/2026 Discharge Ambulatory referral to ENT Outpatient Referral Routine Fall, initial encounter Closed fracture of zygomatic arch, unspecified laterality, initial encounter ([facility]) Expected: 11/26/2024, Expires: 05/16/2026 documented as of this encounter Procedures Procedure Name Priority Date/Time Associated Diagnosis Comments CT CERVICAL SPINE WO IV CONTRAST Routine 11/12/2024 12:[address] HEAD WO IV CONTRAST STAT 12:44 AM EDT POCT GLUCOSE METER UNSOLICITED RESULTS Routine 11/11/2024 10:50 PM EDT OXYGEN THERAPY Routine 11/11/2024 8:00 AM EDT OXYGEN THERAPY Routine 11/10/2024 8:00 PM EDT OXYGEN THERAPY Routine 11/10/2024 8:00 AM EDT OXYGEN THERAPY Routine 11/09/2024 8:00 PM EDT OXYGEN THERAPY Routine 11/09/2024 8:00 AM EDT OXYGEN THERAPY Routine 11/08/2024 8:00 PM EDT OXYGEN THERAPY Routine 11/08/2024 8:00 AM EDT OXYGEN THERAPY Routine 11/07/2024 8:00 PM EDT OXYGEN THERAPY Routine 11/07/2024 8:00 AM EDT OXYGEN THERAPY Routine 11/06/2024 8:00 PM EDT OXYGEN THERAPY Routine 11/06/2024 8:00 AM EDT OXYGEN THERAPY Routine 11/05/2024 8:00 PM EDT OXYGEN THERAPY Routine 11/05/2024 8:00 AM EDT OXYGEN THERAPY Routine 11/04/2024 8:00 PM EDT WOUND CULTURE AND GRAM STAIN Routine 11/04/2024 11:57 AM EDT OXYGEN THERAPY Routine 11/04/2024 8:00 AM EDT OK CRITICAL CARE, E/M 30-74 MINUTES Routine 11/04/2024 7:05 AM EDT Fall, initial encounter Electrolyte abnormality Traumatic brain injury, with unknown loss of consciousness status, initial encounter ([facility]) Acute respiratory failure with hypoxia Hypertension, unspecified type CBC W/O DIFFERENTIAL Routine 11/04/2024 12:07 AM EDT PHOSPHORUS, PLASMA Routine 11/04/2024 12 :07 AM EDT MAGNESIUM, PLASMA Routine 11/04/2024 12: 07 AM EDT BASIC METABOLIC PANEL, PLASMA Routine 11/04/2024 12:07 AM EDT OXYGEN THERAPY Routine 11/03/2024 8:00 PM EDT CBC W/O DIFFERENTIAL Routine 11/03/2024 3:13 PM EDT XR FOOT RIGHT 3+ VIEWS Routine 12:43 PM EDT XR ANKLE RIGHT 3+ VIEWS Routine 11/03/2024 12:43 PM EDT OK CRITICAL CARE, E/M 30-74 MINUTES Routine 11/03/2024 11:16 AM EDT Fall, initial encounter Electrolyte abnormality Traumatic brain injury, with unknown loss of consciousness status, initial encounter ([facility]) Acute respiratory failure with hypoxia OXYGEN THERAPY Routine 11/03/2024 8:00 AM EDT XR CHEST 1 VIEW Timed 11/03/2024 7:03 AM EDT CBC WITH AUTO DIFFERENTIAL Routine 11/03/2024 2:08 AM EDT PHOSPHORUS, PLASMA Routine 11/03/2024 2: 08 AM EDT MAGNESIUM, PLASMA Routine 11/03/2024 2:0 8 AM EDT COMPREHENSIVE METABOLIC PANEL, PLASMA Routine 11/03/2024 2:08 AM EDT OXYGEN THERAPY Routine 11/02/2024 8:00 PM EDT FL MODIFIED BARIUM SWALLOW STAT 11/02/2024 3:21 PM EDT OXYGEN THERAPY Routine 11/02/2024 12:53 PM EDT OXYGEN THERAPY Routine 11/02/2024 12:53 PM EDT OK CRITICAL CARE, E/M 30-74 MINUTES Routine 11/02/2024 10:25 AM EDT Fall, initial encounter Traumatic brain injury, with unknown loss of consciousness status, initial encounter ([facility]) Acute respiratory failure with hypoxia Hypertension, unspecified type PEP THERAPY Routine 11/02/2024 10:[address] FACE WO IV CONTRAST STAT 9:12 AM EDT POCT ARTERIAL BLOOD GAS GEM UNSOLICITED RESULTS Routine 11/01/2024 6:41 PM EDT POCT GLUCOSE METER UNSOLICITED RESULTS Routine 11/01/2024 6:09 PM EDT CBC WITH AUTO DIFFERENTIAL Routine 11/01/2024 6:09 PM EDT PHOSPHORUS, PLASMA Routine 11/01/2024 6: 09 PM EDT MAGNESIUM, PLASMA Routine 11/01/2024 6:0 9 PM EDT COMPREHENSIVE METABOLIC PANEL, PLASMA Routine 11/01/2024 6:09 PM EDT OXYGEN THERAPY Routine 11/01/2024 3:15 PM EDT ORIF, FRACTURE, ORBIT, FLOOR 11/01/2024 1:40 PM EDT Closed fracture of right zygomatic arch, initial encounter ([facility]) OK OPEN RX COMPLX CHEEK BONE FRAC 11/01/2024 1:40 PM EDT Closed fracture of right zygomatic arch, initial encounter ([facility]) XR CHEST 1 VIEW STAT 11/01/2024 12:15 PM EDT POCT ARTERIAL BLOOD GAS GEM UNSOLICITED RESULTS Routine 11/01/2024 12:10 PM EDT CHEST PHYSIOTHERAPY / AIRWAY CLEARANCE Routine 11/01/2024 11:52 AM EDT CHEST PHYSIOTHERAPY / AIRWAY CLEARANCE Routine 11/01/2024 11:52 AM EDT OXYGEN THERAPY Routine 11/01/2024 11:50 AM EDT OXYGEN THERAPY Routine 11/01/2024 11:50 AM EDT XR HAND RIGHT 3+ VIEWS STAT 9:55 AM EDT XR WRIST RIGHT 3+ VIEWS STAT 11/01/2024 9:55 AM EDT XR FOREARM RIGHT 2 VIEWS STAT 11/01/2024 9:55 AM EDT XR ELBOW RIGHT 3+ VIEWS STAT 11/01/2024 9:55 AM EDT OK CRITICAL CARE, E/M 30-74 MINUTES Routine 11/01/2024 7:22 AM EDT Fall, initial encounter Hyperlipidemia, unspecified hyperlipidemia type Traumatic brain injury, with unknown loss of consciousness status, initial encounter ([facility]) Acute respiratory failure with hypoxia IONIZED CALCIUM, WHOLE BLOOD Routine 10/31/2024 11:49 PM EDT CBC W/O DIFFERENTIAL Routine 10/31/2024 11:49 PM EDT PHOSPHORUS, PLASMA Routine 10/31/2024 11 :49 PM EDT MAGNESIUM, PLASMA Routine 10/31/2024 11: 49 PM EDT BASIC METABOLIC PANEL, PLASMA Routine 10/31/2024 11:49 PM EDT OXYGEN THERAPY Routine 10/31/2024 1:47 PM EDT OXYGEN THERAPY Routine 10/31/2024 1:47 PM EDT OXYGEN THERAPY Routine 10/31/2024 1:47 PM EDT EXTUBATION Routine 10/31/2024 1:11 PM EDT OK CRITICAL CARE, E/M 30-74 MINUTES Routine 10/31/2024 10:48 AM EDT Intraventricular hemorrhage (CMS/HCC) Fall, initial encounter Electrolyte abnormality ABLA (acute blood loss anemia) TRIGLYCERIDES, PLASMA Timed 10/31/2024 6:56 AM EDT IONIZED CALCIUM, WHOLE BLOOD Routine 10/30/2024 11:11 PM EDT CBC W/O DIFFERENTIAL Routine 10/30/2024 11:11 PM EDT PHOSPHORUS, PLASMA Routine 10/30/2024 11 :11 PM EDT MAGNESIUM, PLASMA Routine 10/30/2024 11: 11 PM EDT BLOOD GAS PANEL, ARTERIAL Routine 10/30/2024 11:11 PM EDT BASIC METABOLIC PANEL, PLASMA Routine 10/30/2024 11:11 PM EDT POCT GLUCOSE METER UNSOLICITED RESULTS Routine 10/30/2024 6:23 PM EDT XR CHEST 1 VIEW STAT 10/30/2024 4:11 PM EDT CVC TRIPLE LUMEN (SMARTFORM LINK) Routine 10/30/2024 4:02 PM EDT Fall, initial encounter HC INSERT NON-TUNNEL CV CATH Routine 10/30/2024 4:02 PM EDT Fall, initial encounter OK INSERT NON-TUNNEL CV CATH Routine 10/30/2024 4:02 PM EDT Fall, initial encounter URINALYSIS MICROSCOPIC FOR UA REFLEX Routine 10/30/2024 2:11 PM EDT TRANSFUSION REACTION URINALYSIS Routine 10/30/2024 2:11 PM EDT URINALYSIS WITH REFLEX MICROSCOPIC Routine 10/30/2024 2:11 PM EDT TROPONIN T, HIGH SENSITIVITY, 2 HOUR, PLASMA Timed 10/30/2024 1:[address] HEAD WO IV CONTRAST Timed 12:06 PM EDT ECG ADULT STAT 10/30/2024 11:39 AM EDT TROPONIN T, HIGH SENSITIVITY, 0 HOUR, PLASMA, REFLEX TO 2 HOUR STAT 10/30/2024 11:25 AM EDT IONIZED CALCIUM, WHOLE BLOOD Routine 10/30/2024 11:25 AM EDT CBC W/O DIFFERENTIAL Routine 10/30/2024 11:25 AM EDT PHOSPHORUS, PLASMA Routine 10/30/2024 11 :25 AM EDT MAGNESIUM, PLASMA Routine 10/30/2024 11: 25 AM EDT BLOOD GAS PANEL, ARTERIAL Routine 10/30/2024 11:25 AM EDT BASIC METABOLIC PANEL, PLASMA Routine 10/30/2024 11:25 AM EDT EXTRA TUBE LIGHT BLUE TOP Routine 10/30/2024 11:20 AM EDT EXTRA TUBES Routine 10/30/2024 11:20 AM EDT TRANSFUSION REACTION, PATHOLOGIST INTERPRETATION Routine 10/30/2024 10:04 AM EDT TEG GLOBAL HEMOSTASIS WITH LYSIS STAT 10/30/2024 10:04 AM EDT TRANSFUSION REACTION INVESTIGATION Routine 10/30/2024 10:04 AM EDT OK CRITICAL CARE, ADDL 30 MIN Routine 10/30/2024 9:49 AM EDT Intraventricular hemorrhage (CMS/HCC) Fall, initial encounter Electrolyte abnormality ABLA (acute blood loss anemia) Closed fracture of right zygomatic arch, initial encounter (CMS/HCC) Hyperlipidemia, unspecified hyperlipidemia type Traumatic brain injury, with unknown loss of consciousness status, initial encounter (CMS/HCC) Acute respiratory failure with hypoxia Hypertension, unspecified type Injury of globe of eye, right, initial encounter Debility OK CRITICAL CARE, ADDL 30 MIN Routine 10/30/2024 9:49 AM EDT Intraventricular hemorrhage (CMS/HCC) Fall, initial encounter Electrolyte abnormality ABLA (acute blood loss anemia) Closed fracture of right zygomatic arch, initial encounter (CMS/HCC) Hyperlipidemia, unspecified hyperlipidemia type Traumatic brain injury, with unknown loss of consciousness status, initial encounter (CMS/HCC) Acute respiratory failure with hypoxia Hypertension, unspecified type Injury of globe of eye, right, initial encounter Debility HC INSERT CATH,ART,PERCUT,LOR ERM Routine 10/30/2024 9:11 AM EDT Intraventricular hemorrhage (CMS/HCC) OK INSERT CATH,ART,PERCUT,LOR ERM Routine 10/30/2024 9:11 AM EDT Intraventricular hemorrhage (CMS/HCC) POCT ARTERIAL BLOOD GAS GEM UNSOLICITED RESULTS Routine 10/30/2024 8:49 AM EDT TRANSFUSE PLATELETS Routine 10/30/2024 8 :41 AM EDT TRANSFUSE PLATELETS Routine 10/30/2024 8 :11 AM EDT END TIDAL CO2 MONITORING Routine 10/30/2024 8:00 AM EDT VENTILATOR - ADULT Routine 10/30/2024 8: 00 AM EDT PREPARE PLATELETS Routine 10/30/2024 7:1 5 AM EDT VENTILATOR - ADULT Routine 10/30/2024 6: 46 AM EDT VENTILATOR - ADULT Routine 10/30/2024 6: 46 AM EDT LACTATE, VENOUS Routine 10/30/2024 6:45 AM EDT CBC W/O DIFFERENTIAL STAT 10/30/2024 6:45 AM EDT PHOSPHORUS, PLASMA Routine 10/30/2024 6: 45 AM EDT MAGNESIUM, PLASMA Routine 10/30/2024 6:4 5 AM EDT BASIC METABOLIC PANEL, PLASMA STAT 10/30/2024 6:45 AM EDT SBT - SPONTANEOUS BREATHING TRIAL Routine 10/30/2024 6:[address] HEAD WO IV CONTRAST Timed 5:39 AM EDT VERONICA AURIS SURVEILLANCE BY PCR Routine 10/30/2024 4:47 AM EDT MULTI DRUG RESISTANCE TEST Routine 10/30/2024 4:47 AM EDT END TIDAL CO2 MONITORING Routine 10/30/2024 4:00 AM EDT END TIDAL CO2 MONITORING Routine 10/30/2024 4:00 AM EDT END TIDAL CO2 MONITORING Routine 10/30/2024 4:00 AM EDT SBT - SPONTANEOUS BREATHING TRIAL Routine 10/30/2024 4:00 AM EDT VENTILATOR - ADULT Routine 10/30/2024 4: 00 AM EDT POCT GLUCOSE METER UNSOLICITED RESULTS Routine 10/30/2024 3:18 AM EDT TYPE AND SCREEN Routine 10/30/2024 2:43 AM EDT EXTRA TUBE GOLD TOP Routine 10/30/2024 2 :40 AM EDT EXTRA TUBE GOLD TOP Routine 10/30/2024 2 :40 AM EDT EXTRA TUBES Routine 10/30/2024 2:40 AM EDT ALCOHOL PROFILE, PLASMA Routine 10/30/2024 2:40 AM EDT XR PELVIS 1 OR 2 VIEWS STAT 2:40 AM EDT XR CHEST 1 VIEW STAT 10/30/2024 2:40 AM EDT PROTHROMBIN TIME(PT) / INR Routine 10/30/2024 2:40 AM EDT CBC W/O DIFFERENTIAL Routine 10/30/2024 2:40 AM EDT BLOOD GAS PANEL, VENOUS Routine 10/30/2024 2:40 AM EDT documented in this encounter Results * CT Cervical Spine wo IV Contrast (11/12/2024 12:44 AM EDT) Anatomical Region Laterality Modality Spine, C-spine Computed Tomogra phy Impressions 11/12/2024 1:16 AM EDT No acute fracture or malalignment of the cervical spine. CRITICAL RESULT: No. COMMUNICATION: Per this written report. Drafted by Nathaniel Alcaraz MD on 11/12/2024 1:11 AM Final report signed by Nathaniel Alcaraz MD on 11/12/2024 1:16 AM Narrative 11/12/2024 1:16 AM EDT CLINICAL INDICATION: unwitnessed fall from bed and inability to disprove head strike, on anticoagulation TECHNIQUE: Imaging of the entire cervical spine (to include the cervicothoracic junction) was performed, using spiral technique, without contrast administration. Reformatted images in the coronal and sagittal planes were generated from the axial data set to facilitate diagnostic accuracy and/or surgical planning. Total DLP (Dose-Length Product): 1006.69 mGy.cm. Please note: The reported value represents the total of one or more individual components during the CT acquisition on this date and at this time, and as such, the same value may appear in more than one CT report depending on the interpreting/reporting physicians. COMPARISON: None. FINDINGS: Vertebrae: No acute fracture. Alignment: There is straightening of the typical cervical lordosis which may be secondary to position or muscle spasm. Paraspinal Soft Tissues: No paraspinal hematoma. Lung Apices: No pneumothorax at the lung apices. Other: Left internal carotid artery stent in place. Incompletely visualized left subclavian stent in place. 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 Procedure Note Nathaniel Alcaraz MD - 11/12/2024 CLINICAL INDICATION: unwitnessed fall from bed and inability to disprove head strike, onanticoagulation TECHNIQUE: Imaging of the entire cervical spine (to include the cervicothoracicjunction) was performed, using spiral technique, without contrastadministration. Reformatted images in the coronal and sagittal planes weregenerated from the axial data set to facilitate diagnostic accuracy and/orsurgical planning. Total DLP (Dose-Length Product): 1006.69 mGy.cm. Please note: The reportedvalue represents the total of one or more individual components during theCT acquisition on this date and at this time, and as such, the same valuemay appear in more than one CT report depending on theinterpreting/reporting physicians. COMPARISON: None. FINDINGS: Vertebrae: No acute fracture. Alignment: There is straightening of the typical cervical lordosis whichmay be secondary to position or muscle spasm. Paraspinal Soft Tissues: No paraspinal hematoma. Lung Apices: No pneumothorax at the lung apices. Other: Left internal carotid artery stent in place. Incompletelyvisualized left subclavian stent in place. Sequela of remote leftposterior cerebral artery territory infarct. IMPRESSION: No acute fracture or malalignment of the cervical spine. CRITICAL RESULT: No. COMMUNICATION: Per this written report. Drafted by Nathaniel Alcaraz MD on 11/12/2024 1:11 AM Final report signed by Nathaniel Alcaraz MD on 11/12/2024 1:16 AM Katharine Savage MD IMG CT PROCEDURES Final Result * CT Head wo IV Contrast (11/12/2024 12:44 AM EDT) Anatomical Region Laterality Modality Head Computed Tomogra phy Impressions 11/12/2024 1:26 AM EDT * There is no evidence of intracranial mass, hemorrhage, or acute territorial infarction. * Increasing soft tissue density in the floor of the right orbit which could reflect evolving postsurgical changes and/or hematoma. RECOMMENDATION: * Degree of white matter abnormalities, favored to reflect sequela of small vessel disease and sequela of remote infarcts, limit assessment for focal regions of possible acute ischemia. If there is concern for acute infarct, brain MRI could be considered. CRITICAL RESULT: No. COMMUNICATION: Per this written report. Drafted by Nathaniel Alcaraz MD on 11/12/2024 1:16 AM Final report signed by Nathaniel Alcaraz MD on 11/12/2024 1:26 AM Narrative 11/12/2024 1:26 AM EDT CLINICAL INDICATION: unwitnessed fall from bed and inability to disprove head strike, on anticoagulation TECHNIQUE: Spiral axial CT images of the head were obtained without contrast administration. Total DLP (Dose-Length Product): 1006.69 mGy.cm. Please note: The reported value represents the total of one or more individual components during the CT acquisition on this date and at this time, and as such, the same value may appear in more than one CT report depending on the interpreting/reporting physicians. COMPARISON: Head CT 10/30/2024 1 FINDINGS: Diagnostic Quality: Adequate. No midline shift, mass effect, parenchymal hemorrhage, or evidence of acute territorial infarct. There are nonspecific punctate and patchy hypodense foci in the periventricular and subcortical white matter which may represent sequela of small vessel disease. Sequela of remote infarcts in the right cerebellar hemisphere, basal ganglia, bilateral thalamocapsular regions, and left posterior cerebral artery territory. No extra-axial fluid collections. Prominence of the retrocerebellar space which communicates with the fourth ventricle which could reflect jerrell cisterna magna. Basal cisterns are patent. No hydrocephalus. There is mild prominence of the sulci, cisterns, and ventricles suggestive of generalized brain parenchymal volume loss without a regional predominance. The callosal angle is obtuse. There are scattered atherosclerotic calcifications within the carotid siphons. Soft tissue density along the floor the right maxillary sinus. Otherwise, the orbits and globes are unremarkable. Soft Tissues: No significant soft tissue swelling is present. Skull: Comminuted fracture of the right maxilla including the inferior orbital wall and medial and lateral benites of the maxillary sinus. There are postsurgical changes related to right inferior orbital wall blowout fracture repair and plate and screw fixation of the anterior maxilla. Unchanged fracture of the lateral right orbital wall. Sinuses and Mastoids: Trace undulating nasal septum. Opacification of the right mastoid tip. Near complete opacification of the right maxillary sinus. The remaining paranasal sinuses, mastoid air cells, and middle ear canals are well-aerated. Procedure Note Nathaniel Alcaraz MD - 11/12/2024 CLINICAL INDICATION: unwitnessed fall from bed and inability to disprove head strike, onanticoagulation TECHNIQUE: Spiral axial CT images of the head were obtained without contrastadministration. Total DLP (Dose-Length Product): 1006.69 mGy.cm. Please note: The reportedvalue represents the total of one or more individual components during theCT acquisition on this date and at this time, and as such, the same valuemay appear in more than one CT report depending on theinterpreting/reporting physicians. COMPARISON: Head CT 10/30/2024 1 FINDINGS: Diagnostic Quality: Adequate. No midline shift, mass effect, parenchymal hemorrhage, or evidence ofacute territorial infarct. There are nonspecific punctate and patchyhypodense foci in the periventricular and subcortical white matter whichmay represent sequela of small vessel disease. Sequela of remote infarctsin the right cerebellar hemisphere, basal ganglia, bilateralthalamocapsular regions, and left posterior cerebral artery territory. No extra-axial fluid collections. Prominence of the retrocerebellar spacewhich communicates with the fourth ventricle which could reflect megacisterna magna. Basal cisterns are patent. No hydrocephalus. There ismild prominence of the sulci, cisterns, and ventricles suggestive ofgeneralized brain parenchymal volume loss without a regional predominance.The callosal angle is obtuse. There are scattered atherosclerotic calcifications within the carotidsiphons. Soft tissue density along the floor the right maxillary sinus.Otherwise, the orbits and globes are unremarkable. Soft Tissues: No significant soft tissue swelling is present. Skull: Comminuted fracture of the right maxilla including the inferiororbital wall and medial and lateral benites of the maxillary sinus. Thereare postsurgical changes related to right inferior orbital wall blowoutfracture repair and plate and screw fixation of the anterior maxilla.Unchanged fracture of the lateral right orbital wall. Sinuses and Mastoids: Trace undulating nasal septum. Opacification of theright mastoid tip. Near complete opacification of the right maxillarysinus. The remaining paranasal sinuses, mastoid air cells, and middle earcanals are well-aerated. IMPRESSION: *There is no evidence of intracranial mass, hemorrhage, or acuteterritorial infarction. *Increasing soft tissue density in the floor of the right orbit whichcould reflect evolving postsurgical changes and/or hematoma. RECOMMENDATION: *Degree of white matter abnormalities, favored to reflect sequela ofsmall vessel disease and sequela of remote infarcts, limit assessment forfocal regions of possible acute ischemia. If there is concern for acuteinfarct, brain MRI could be considered. CRITICAL RESULT: No. COMMUNICATION: Per this written report. Drafted by Nathaniel Alcaraz MD on 11/12/2024 1:16 AM Final report signed by Nathaniel Alcaraz MD on 11/12/2024 1:26 AM Katharine Savage MD IMG CT PROCEDURES Final Result * (ABNORMAL) POCT glucose meter (11/11/2024 10:50 PM EDT) POCT Glucose 135(H) 74 - 99 mg/dL 11/11/2024 10:51 PM EDT [facility] Comment:Accuracy of a glucos e result obtained from a capillary whole blood specimen relies upon adequate, non-compromised capillary blood flow. If the capillary glucose result is not consistent with the patient's clinical signs and symptoms, glucose testing should be repeated with either an arterial or venous sample on the glucometer or sent to the main labortory for testing. Comment 11/11/2024 10:51 PM EDT [facility] Corset Fitter ID Zackery Cohen 11/12/19 10:51 PM EDT [facility] Device ID [id number] 11/11/2024 10:51 PM EDT HEALTHCARE LAB Specimen Type POC Capillary 11/11/2024 10:51 PM EDT HEALTHCARE LAB Blood Capillary blood specimen / Unknown 11/11/2024 10:50 PM EDT 11/11/2024 10:51 PM EDT Katharine Savage MD LAB POINT OF CARE TE ST DOCKED DEVICE UNSOLICITED RESULTS Final Result [facility] [address] [place] [address] * (ABNORMAL) Wound Culture and Gram Stain (11/04/2024 11:57 AM EDT) CULTURE READING WOUND Light Growth 11/07/2024 12:50 PM EDT [facility] CULTURE READING WOUND 1+ Methicillin-Resista nt Staphylococcus aureus(AA) GERMÁN 11/07/2024 12:50 PM EDT [facility] Comment: The organism value for this result has been updated. These results have been appended to the previously preliminary verified report. Edited result: Previously reported as Staphylococcus aureus on 11/05/2024 at 0710 EDT. Staphylococcus aureus has been updated to reportable. CULTURE READING WOUND 1+ Staphylococcus epidermidis(A) GERMÁN 11/07/2024 12:50 PM EDT [facility] Comment: This isolate has been identified using the FDA Approved [employer] System The organism value for this result has been updated. These results have been appended to the previously preliminary verified report. Gram Stain Result Few Polymorphonuclear leukocytes(A) 11/07/2024 12:50 PM EDT [facility] Gram Stain Result Few Gram positive cocci in clusters(A) 11/07/2024 12:50 PM EDT [facility] Swab Skin structure / Unknown Non-blood Collection / Unknown 11/04/2024 11:57 AM EDT 11/04/2024 12:17 PM EDT Narrative Organism Antibiotic Method Susceptibility Methicillin-Resistant Staphylococcus aureus Clindamycin GERMÁN <=0.5 ug/ml: Susceptible Methicillin-Resistant Staphylococcus aureus Daptomycin GERMÁN <=1 ug/ml: Susceptible Methicillin-Resistant Staphylococcus aureus Erythromycin GERMÁN >4 ug/ml: Resistant Methicillin-Resistant Staphylococcus aureus Gentamicin GERMÁN <=1 ug/ml: Susceptible Methicillin-Resistant Staphylococcus aureus Linezolid GERMÁN 2 ug/ml: Susceptible Methicillin-Resistant Staphylococcus aureus Minocycline GERMÁN <=1 ug/ml: Susceptible Methicillin-Resistant Staphylococcus aureus Oxacillin GERMÁN >2 ug/ml: Resistant Methicillin-Resistant Staphylococcus aureus Penicillin G GERMÁN >1 ug/ml: Resistant Methicillin-Resistant Staphylococcus aureus Tetracycline GERMÁN <=0.5 ug/ml: Susceptible Methicillin-Resistant Staphylococcus aureus Trimethoprim/Sulfamethoxa zole GERMÁN <=0.5/9.5 ug/ml: Susceptible Methicillin-Resistant Staphylococcus aureus Vancomycin GERMÁN 1 ug/ml: Susceptible us Micheal Espinoza MD LAB MICROBIOLOGY - GENERAL ORDERABLES Final Result [facility] [address] [place] [address] * [place] CRITICAL CARE, E/M 30-74 MINUTES (11/04/2024 7:05 AM EDT) Narrative Micheal Espinoza MD - 11/04/2024 7:05 AM EDT Micheal Espinoza MD 11/04/2024 1:15 PM Critical Care Performed by: Micheal Espinoza MD Authorized by: Micheal Espinoza MD Critical care provider statement: Critical care time (minutes): 30 Critical care time was exclusive of: Separately billable procedures and treating other patients and teaching time Critical care was time spent personally by me on the following activities: Evaluation of patient's response to treatment, examination of patient, ordering and review of radiographic studies, ordering and performing treatments and interventions, ordering and review of laboratory studies and discussions with consultants I assumed subsequent critical care for this patient from a provider in my division, on the same day: no Critical care statement: I saw and evaluated the patient with the resident/ fellow. I discussed the case with the resident/ fellow and agree with the findings and plan as documented. Comments: GCS remains 14. Keppra for seizure ppx until 11/05. Discussed with ENT who expressed pus from canthotomy site. Recommended abx. Will start augmentin. Hypertension. Resuming home dose of amlodipine. On 2L nasal cannula. Aggressive pulmonary toilet. On goal tube feeds. DIRECT CARE PROFESSIONAL evaluated and cleared for diet but PO intake remains poor. Will switch to nocturnal feeds and continue diet with protein supplementation during the day. Adequate urine output after 20mg lasix yesterday. Trial of void 11/05. Chemical VTE prophylaxis. Micheal Espinoza MD IN CLINIC/BEDSIDE ORDERABL ES Final Result * Phosphorus (11/04/2024 12:07 AM EDT) Phosphorus, Plasma 3.6 2.5 - 4.5 mg/dL 11/04/2024 12:48 AM EDT [facility] Blood Venous blood specimen / Unknown Venipuncture / Unknown 11/04/2024 12:07 AM EDT 11/04/2024 12:16 AM EDT [facility] BLOOD ORDERABLES Final R esult Performing Organization Address [facility] Co de Phone Number [facility] [address] [place] [address] * Magnesium (11/04/2024 12:07 AM EDT) Magnesium, Plasma 2.2 1.9 - 2.4 mg/dL 11/04/2024 12:48 AM EDT [facility] Blood Venous blood specimen / Unknown Venipuncture / Unknown 11/04/2024 12:07 AM EDT 11/04/2024 12:16 AM EDT Man[facility] BLOOD ORDERABLES Final R esult Performing Organization Address City/[facility]/ZIP Co de Phone Number [facility] [address] [place] [address] * (ABNORMAL) Basic metabolic panel (11/04/2024 12:07 AM EDT) Glucose, Plasma 114(H) 74 - 99 mg/dL 11/04/2024 12:48 AM EDT [facility] BUN, Plasma 21 8 - 23 mg/dL 11/04/2024 12:48 AM EDT [facility] Creatinine, Plasma 0.73 0.60 - 1.10 mg/dL 11/04/2024 12:48 AM EDT [facility] BUN/Creatinine Ratio 29 11/04/2024 12:48 AM EDT [facility] Sodium, Plasma 143 136 - 145 mmol/L 11/04/2024 12:48 AM EDT [facility] Potassium, Plasma 3.9 3.6 - 4.9 mmol/L 11/04/2024 12:48 AM EDT [facility] Chloride, Plasma 108(H) 97 - 107 mmol/L 11/04/2024 12:48 AM EDT [facility] CO2, Plasma 27 22 - 29 mmol/L 11/04/2024 12:48 AM EDT [facility] Anion Gap 8 6 - 16 mmol/L 11/04/2024 12:48 AM EDT [facility] Total Calcium, Plasma 7.9(L) 8.9 - 10.2 mg/dL 11/04/2024 12:48 AM EDT [facility] eGFRcr 90.8 mL/min/1.7 3m*2 11/04/2024 12:48 AM EDT [facility] Comment:Reported eGFRcr in m L/min/1.73m2 is based the CKD-EPI 2020 equation that does not use a race coefficient. Blood Venous blood specimen / Unknown Venipuncture / Unknown 11/04/2024 12:07 AM EDT 11/04/2024 12:16 AM EDT us Manisha [facility] BLOOD ORDERABLES Final R esult [facility] [address] [place] [address] * (ABNORMAL) CBC W/O Differential (11/04/2024 12:07 AM EDT) WBC Count 7.42 3.70 - 10.30 10*3/uL LAB HEMATOLOGY METHOD 11/04/2024 12:26 AM EDT [facility] RBC Count 2.89(L) 3.90 - 5.20 10*6/uL LAB HEMATOLOGY METHOD 11/04/2024 12:26 AM EDT [facility] HGB 7.9(L) 11.2 - 15.7 g/dL LAB HEMATOLOGY METHOD 11/04/2024 12:26 AM EDT [facility] HCT 25.5(L) 34.0 - 45.0 % LAB HEMATOLOGY METHOD 11/04/2024 12:26 AM EDT [facility] Platelet Count 229 155 - 369 10*3/uL LAB HEMATOLOGY METHOD 11/04/2024 12:26 AM EDT [facility] MCV 88 79 - 98 fL LAB HEMATOLOGY METHOD 11/04/2024 12:26 AM EDT [facility] MCH 27.3 26.0 - 32.0 pg LAB HEMATOLOGY METHOD 11/04/2024 12:26 AM EDT [facility] MCHC 31.0 30.7 - 35.5 g/dL LAB HEMATOLOGY METHOD 11/04/2024 12:26 AM EDT [facility] RDW 13.6 11.5 - 14.5 % LAB HEMATOLOGY METHOD 11/04/2024 12:26 AM EDT [facility] MPV 10.8 8.8 - 12.5 fL LAB HEMATOLOGY METHOD 11/04/2024 12:26 AM EDT [facility] nRBC 0.0 <=0.0 per 100 WBCs LAB HEMATOLOGY METHOD 11/04/2024 12:26 AM EDT [facility] Blood Venous blood specimen / Unknown Venipuncture / Unknown 11/04/2024 12:07 AM EDT 11/04/2024 12:18 AM EDT us Manisha [facility] LAB BLOOD ORDERABLES Final R esult [facility] [address] [place] [address] * (ABNORMAL) CBC W/O Differential (11/03/2024 3:13 PM EDT) WBC Count 9.52 3.70 - 10.30 10*3/uL LAB HEMATOLOGY METHOD 11/03/2024 3:46 PM EDT [facility] RBC Count 3.24(L) 3.90 - 5.20 10*6/uL LAB HEMATOLOGY METHOD 11/03/2024 3:46 PM EDT [facility] HGB 8.8(L) 11.2 - 15.7 g/dL LAB HEMATOLOGY METHOD 11/03/2024 3:46 PM EDT [facility] HCT 28.3(L) 34.0 - 45.0 % LAB HEMATOLOGY METHOD 11/03/2024 3:46 PM EDT [facility] Platelet Count 255 155 - 369 10*3/uL LAB HEMATOLOGY METHOD 11/03/2024 3:46 PM EDT [facility] MCV 87 79 - 98 fL LAB HEMATOLOGY METHOD 11/03/2024 3:46 PM EDT [facility] MCH 27.2 26.0 - 32.0 pg LAB HEMATOLOGY METHOD 11/03/2024 3:46 PM EDT [facility] MCHC 31.1 30.7 - 35.5 g/dL LAB HEMATOLOGY METHOD 11/03/2024 3:46 PM EDT [facility] RDW 13.5 11.5 - 14.5 % LAB HEMATOLOGY METHOD 11/03/2024 3:46 PM EDT [facility] MPV 11.1 8.8 - 12.5 fL LAB HEMATOLOGY METHOD 11/03/2024 3:46 PM EDT [facility] nRBC 0.0 <=0.0 per 100 WBCs LAB HEMATOLOGY METHOD 11/03/2024 3:46 PM EDT [facility] Blood Venous blood specimen / Unknown Venipuncture / Unknown 11/03/2024 3:13 PM EDT 11/03/2024 3:38 PM EDT us Micheal Espinoza MD LAB BLOOD ORDERABLES Final Result [facility] [address] [place] [address] * XR Ankle Right 3+ Views (11/03/2024 12:43 PM EDT) Anatomical Region Laterality Modality Lower Extremities, Ankle Right Digital Radiography Impressions 11/03/2024 12:50 PM EDT 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 No acute osseous or articular abnormality. CRITICAL RESULT: No. COMMUNICATION: Per this written report. Drafted by Zurdo Hsieh MD on 11/03/2024 12:48 PM Final report signed by Zurdo Hsieh MD on 11/03/2024 12:50 PM Narrative 11/03/2024 12:50 PM EDT CLINICAL INDICATION: pain TECHNIQUE: XR FOOT RIGHT 3+ VIEWS, XR ANKLE RIGHT 3+ VIEWS COMPARISON: None. FINDINGS: 3 views of the right ankle show normal tibiotalar joint space and alignment. Talar dome and subtalar joints are normal. Degenerative ossification of the distal tip of the medial malleolus. Degenerative posterior and plantar calcaneal spur. 3 views of the right foot show normal joint space and alignment. No fracture or erosive changes. Soft tissues are normal. Procedure Note Zurdo Hsieh MD - 11/03/2024 CLINICAL INDICATION: pain TECHNIQUE: XR FOOT RIGHT 3+ VIEWS, XR ANKLE RIGHT 3+ VIEWS COMPARISON: None. FINDINGS: 3 views of the right ankle show normal tibiotalar joint space andalignment. Talar dome and subtalar joints are normal. Degenerativeossification of the distal tip of the medial malleolus. Degenerativeposterior and plantar calcaneal spur. 3 views of the right foot show normal joint space and alignment. Nofracture or erosive changes. Soft tissues are normal. IMPRESSION: Degenerative ossification distal tip of the medial malleolus anddegenerative posterior and plantar calcaneal spur. No acute osseous orarticular abnormality. CRITICAL RESULT: No. COMMUNICATION: Per this written report. Drafted by Zurdo Hsieh MD on 11/03/2024 12:48 PM Final report signed by Zurdo Hsieh MD on 11/03/2024 12:50 PM us Manisha FORBES IMG XR PROCEDURES Final Resu lt * XR Foot Right 3+ Views (11/03/2024 12:43 PM EDT) Anatomical Region Laterality Modality Lower Extremities, Foot Right Digital Radiography Impressions 11/03/2024 12:50 PM EDT 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 No acute osseous or articular abnormality. CRITICAL RESULT: No. COMMUNICATION: Per this written report. Drafted by Zurdo Hsieh MD on 11/03/2024 12:48 PM Final report signed by Zurdo Hsieh MD on 11/03/2024 12:50 PM Narrative 11/03/2024 12:50 PM EDT CLINICAL INDICATION: pain TECHNIQUE: XR FOOT RIGHT 3+ VIEWS, XR ANKLE RIGHT 3+ VIEWS COMPARISON: None. FINDINGS: 3 views of the right ankle show normal tibiotalar joint space and alignment. Talar dome and subtalar joints are normal. Degenerative ossification of the distal tip of the medial malleolus. Degenerative posterior and plantar calcaneal spur. 3 views of the right foot show normal joint space and alignment. No fracture or erosive changes. Soft tissues are normal. Procedure Note Zurdo Hsieh MD - 11/03/2024 CLINICAL INDICATION: pain TECHNIQUE: XR FOOT RIGHT 3+ VIEWS, XR ANKLE RIGHT 3+ VIEWS COMPARISON: None. FINDINGS: 3 views of the right ankle show normal tibiotalar joint space andalignment. Talar dome and subtalar joints are normal. Degenerativeossification of the distal tip of the medial malleolus. Degenerativeposterior and plantar calcaneal spur. 3 views of the right foot show normal joint space and alignment. Nofracture or erosive changes. Soft tissues are normal. IMPRESSION: Degenerative ossification distal tip of the medial malleolus anddegenerative posterior and plantar calcaneal spur. No acute osseous orarticular abnormality. CRITICAL RESULT: No. COMMUNICATION: Per this written report. Drafted by Zurdo Hsieh MD on 11/03/2024 12:48 PM Final report signed by Zurdo Hsieh MD on 11/03/2024 12:50 PM us Manisha Maxwell PA IMG XR PROCEDURES Final Resu lt * [place] CRITICAL CARE, E/M 30-74 MINUTES (11/03/2024 11:16 AM EDT) Narrative Micheal Espinoza MD - 11/03/2024 11:16 AM EDT Micheal Espinoza MD 11/04/2024 5:46 AM Critical Care Performed by: Micheal Espinoza MD Authorized by: Micheal Espinoza MD Critical care provider statement: Critical care time (minutes): 30 Critical care time was exclusive of: Separately billable procedures and treating other patients Critical care was time spent personally by me on the following activities: Evaluation of patient's response to treatment, examination of patient, ordering and review of radiographic studies, ordering and performing treatments and interventions, ordering and review of laboratory studies and development of treatment plan with patient or surrogate I assumed subsequent critical care for this patient from a provider in my division, on the same day: no Comments: Seen and examined with the Advanced Practice Provider ([facility]). I attest to being personally involved in more than half the total time in patient care including obtaining and reviewing the history, performing and documenting the exam, and medical decision making. GCS 14/15. Occasionally somewhat confused. Otherwise neurologically appropriate. Continuing to wean supplemental oxygen therapy. Aggressive pulmonary hygiene, nebulizer therapy. Hemodynamically stable. Not requiring vasopressor support. Continue noninvasive monitoring. Hypophosphatemia-replaced per ICU protocol. Continue physical therapy and occupational therapy. Recommending subacute rehab. Chemical VTE prophylaxis. us Micheal Espinoza MD IN CLINIC/BEDSIDE ORDERABL ES Final Result * XR Chest 1 View (11/03/2024 7:03 AM EDT) Anatomical Region Laterality Modality Chest Digital Radiogra phy Impressions 11/03/2024 9:24 AM EDT Interval removal of right IJ central venous catheter. Possible leak of the nasogastric tube near the area of the fundus of the stomach. Progressive worsening aeration throughout the right lung, which may represent asymmetric edema versus airspace disease. CRITICAL RESULT: No. COMMUNICATION: Per this written report. By electronically signing this report, I, the attending physician, attest that I have personally reviewed the images/data for the above examination(s) and agree with the final edited report. Drafted by Tim Bernal MD on 11/03/2024 8:27 AM Final report signed by Ethan Grande MD on 11/03/2024 9:24 AM Narrative 11/03/2024 9:24 AM EDT CLINICAL INDICATION: O2 requirement TECHNIQUE: XR CHEST 1 VIEW COMPARISON: Chest x-ray 11/01/2024. FINDINGS: Interval removal of right IJ central venous catheter. Opacity surrounding nasogastric tube that lies in the area of the fundus of the stomach. Worse aeration of the right lung. Similar appearance of trace bilateral pleural effusions. Stable appearance of enlarged mediastinal silhouette. No pneumothorax. Procedure Note Ethan Grande MD - 11/03/2024 CLINICAL INDICATION: O2 requirement TECHNIQUE: XR CHEST 1 VIEW COMPARISON: Chest x-ray 11/01/2024. FINDINGS: Interval removal of right IJ central venous catheter. Opacity surroundingnasogastric tube that lies in the area of the fundus of the stomach. Worseaeration of the right lung. Similar appearance of trace bilateral pleuraleffusions. Stable appearance of enlarged mediastinal silhouette. Nopneumothorax. IMPRESSION: Interval removal of right IJ central venous catheter. Possible leak of the nasogastric tube near the area of the fundus of thestomach. Progressive worsening aeration throughout the right lung, which mayrepresent asymmetric edema versus airspace disease. CRITICAL RESULT: No. COMMUNICATION: Per this written report. By electronically signing this report, I, the attending physician, attestthat I have personally reviewed the images/data for the aboveexamination(s) and agree with the final edited report. Drafted by Tim Bernal MD on 11/03/2024 8:27 AM Final report signed by Ethan Grande MD on 11/03/2024 9:24 AM Micheal Espinoza MD IMG XR PROCEDURES Final Re sult * (ABNORMAL) Phosphorus (11/03/2024 2:08 AM EDT) Phosphorus, Plasma 2.1(L) 2.5 - 4.5 mg/dL 11/03/2024 3:24 AM EDT [facility] Blood Venous blood specimen / Unknown Venipuncture / Unknown 11/03/2024 2:08 AM EDT 11/03/2024 2:17 AM EDT Micheal Espinoza MD LAB BLOOD ORDERABLES Final Result [facility] [address] [place] [address] * Magnesium (11/03/2024 2:08 AM EDT) Magnesium, Plasma 2.1 1.9 - 2.4 mg/dL 11/03/2024 3:24 AM EDT [facility] Blood Venous blood specimen / Unknown Venipuncture / Unknown 11/03/2024 2:08 AM EDT 11/03/2024 2:17 AM EDT us Micheal Espinoza MD LAB BLOOD ORDERABLES Final Result [facility] [address] [place] [address] * (ABNORMAL) Comprehensive metabolic panel (11/03/2024 2:08 AM EDT) Glucose, Plasma 163(H) 74 - 99 mg/dL 11/03/2024 3:24 AM EDT [facility] BUN, Plasma 22 8 - 23 mg/dL 11/03/2024 3:24 AM EDT [facility] Creatinine, Plasma 0.78 0.60 - 1.10 mg/dL 11/03/2024 3:24 AM EDT [facility] BUN/Creatinine Ratio 28 11/03/2024 3:24 AM EDT [facility] Sodium, Plasma 142 136 - 145 mmol/L 11/03/2024 3:24 AM EDT [facility] Potassium, Plasma 4.1 3.6 - 4.9 mmol/L 11/03/2024 3:24 AM EDT [facility] Chloride, Plasma 109(H) 97 - 107 mmol/L 11/03/2024 3:24 AM EDT [facility] CO2, Plasma 25 22 - 29 mmol/L 11/03/2024 3:24 AM EDT [facility] Anion Gap 8 6 - 16 mmol/L 11/03/2024 3:24 AM EDT [facility] Total Calcium, Plasma 7.9(L) 8.9 - 10.2 mg/dL 11/03/2024 3:24 AM EDT [facility] Total Protein 5.5(L) 6.3 - 7.9 g/dL 11/03/2024 3:24 AM EDT [facility] Albumin, Plasma 2.8(L) 3.5 - 5.2 g/dL 11/03/2024 3:24 AM EDT [facility] AST, Plasma 32 10 - 35 U/L 11/03/2024 3:24 AM EDT [facility] ALT, Plasma 46(H) 10 - 35 U/L 11/03/2024 3:24 AM EDT [facility] Alkaline Phosphatase, Plasma 154(H) 46 - 142 U/L 11/03/2024 3:24 AM EDT [facility] Total Bilirubin, Plasma 0.3 0.2 - 1.1 mg/dL 11/03/2024 3:24 AM EDT [facility] eGFRcr 83.9 mL/min/1.7 3m*2 11/03/2024 3:24 AM EDT [facility] Comment:Reported eGFRcr in m L/min/1.73m2 is based the CKD-EPI 2020 equation that does not use a race coefficient. Blood Venous blood specimen / Unknown Venipuncture / Unknown 11/03/2024 2:08 AM EDT 11/03/2024 2:17 AM EDT Micheal Espinoza MD LAB BLOOD ORDERABLES Final Result [facility] [address] [place] [address] * (ABNORMAL) CBC and differential (11/03/2024 2:08 AM EDT) WBC Count 7.77 3.70 - 10.30 10*3/uL LAB HEMATOLOGY METHOD 11/03/2024 2:33 AM EDT [facility] RBC Count 2.74(L) 3.90 - 5.20 10*6/uL LAB HEMATOLOGY METHOD 11/03/2024 2:33 AM EDT [facility] HGB 7.6(L) 11.2 - 15.7 g/dL LAB HEMATOLOGY METHOD 11/03/2024 2:33 AM EDT [facility] HCT 24.4(L) 34.0 - 45.0 % LAB HEMATOLOGY METHOD 11/03/2024 2:33 AM EDT [facility] Platelet Count 193 155 - 369 10*3/uL LAB HEMATOLOGY METHOD 11/03/2024 2:33 AM EDT [facility] MCV 89 79 - 98 fL LAB HEMATOLOGY METHOD 11/03/2024 2:33 AM EDT [facility] MCH 27.7 26.0 - 32.0 pg LAB HEMATOLOGY METHOD 11/03/2024 2:33 AM EDT [facility] MCHC 31.1 30.7 - 35.5 g/dL LAB HEMATOLOGY METHOD 11/03/2024 2:33 AM EDT [facility] RDW 13.7 11.5 - 14.5 % LAB HEMATOLOGY METHOD 11/03/2024 2:33 AM EDT [facility] MPV 10.8 8.8 - 12.5 fL LAB HEMATOLOGY METHOD 11/03/2024 2:33 AM EDT [facility] nRBC 0.0 <=0.0 per 100 WBCs LAB HEMATOLOGY METHOD 11/03/2024 2:33 AM EDT [facility] Differential Type Automated LAB HEMATOLOGY METHOD 11/03/2024 2:33 AM EDT [facility] Neutrophils % 72 % LAB HEMATOLOGY METHOD 11/03/2024 2:33 AM EDT [facility] Lymphocytes % 21 % LAB HEMATOLOGY METHOD 11/03/2024 2:33 AM EDT [facility] Monocytes % 5 % LAB HEMATOLOGY METHOD 11/03/2024 2:33 AM EDT [facility] Eosinophils % 2 % LAB HEMATOLOGY METHOD 11/03/2024 2:33 AM EDT [facility] Basophils % 0 % LAB HEMATOLOGY METHOD 11/03/2024 2:33 AM EDT [facility] Immature Granulocytes % 0 % LAB HEMATOLOGY METHOD 11/03/2024 2:33 AM EDT [facility] Neutrophils Absolute 5.60 1.60 - 6.10 10*3/uL LAB HEMATOLOGY METHOD 11/03/2024 2:33 AM EDT [facility] Lymphocytes Absolute 1.62 1.20 - 3.90 10*3/uL LAB HEMATOLOGY METHOD 11/03/2024 2:33 AM EDT [facility] Monocytes Absolute 0.35 0.30 - 0.90 10*3/uL LAB HEMATOLOGY METHOD 11/03/2024 2:33 AM EDT [facility] Eosinophils Absolute 0.15 0.00 - 0.50 10*3/uL LAB HEMATOLOGY METHOD 11/03/2024 2:33 AM EDT [facility] Basophils Absolute 0.02 0.00 - 0.10 10*3/uL LAB HEMATOLOGY METHOD 11/03/2024 2:33 AM EDT [facility] Immature Granulocytes Absolute 0.03 0.00 - 0.06 10*3/uL LAB HEMATOLOGY METHOD 11/03/2024 2:33 AM EDT [facility] Blood Venous blood specimen / Unknown Venipuncture / Unknown 11/03/2024 2:08 AM EDT 11/03/2024 2:24 AM EDT Narrative [facility] - 11/03/2024 2:33 AM EDT Therapeutic decision making should be based on absolute values, rather than percentages. us Micheal Espinoza MD LAB BLOOD ORDERABLES Final Result [facility] [address] [place] [address] * FL Modified Barium Swallow (11/02/2024 3:21 PM EDT) Anatomical Region Laterality Modality Esophagus, stomach and duodenum Digital Radiography Impressions 11/02/2024 5:10 PM EDT No aspiration or laryngeal penetration. Vallecular residue with pudding and cracker. Please see separate note by Speech therapy team for dietary recommendations. CRITICAL RESULT: No. COMMUNICATION: Per this written report. By electronically signing this report, I, the attending physician, attest that I have personally reviewed the images/data for the above examination(s) and agree with the final edited report. Drafted by Kerwin Kennedy III, MD on 11/02/2024 4:35 PM Final report signed by Carter Palomo MD on 11/02/2024 5:10 PM Narrative 11/02/2024 5:10 PM EDT CLINICAL INDICATION: dysphagia, cognition TECHNIQUE: Modified barium swallow was performed utilizing video fluoroscopy in conjunction with the Speech Pathology team. The patient ingested barium media of varying consistencies. Fluoroscopy Time: 1.2 minutes. COMPARISON: None. FINDINGS: Swallowing: Thin consistency (IDDSI 0): There is no aspiration or laryngeal penetration by the teaspoon and cup. Pudding consistency (IDDSI 4): There is no aspiration or laryngeal penetration. Regular cracker consistency (IDDSI 7): There is no aspiration or laryngeal penetration. Other: There is vallecular residue with pudding and cracker. There are degenerative changes of the cervical spine. Procedure Note Carter Palomo MD - 11/02/2024 CLINICAL INDICATION: dysphagia, cognition TECHNIQUE: Modified barium swallow was performed utilizing video fluoroscopy inconjunction with the Speech Pathology team. The patient ingested bariummedia of varying consistencies. Fluoroscopy Time: 1.2 minutes. COMPARISON: None. FINDINGS: Swallowing: Thin consistency (IDDSI 0): There is no aspiration or laryngealpenetration by the teaspoon and cup. Pudding consistency (IDDSI 4): There is no aspiration or laryngealpenetration. Regular cracker consistency (IDDSI 7): There is no aspiration or laryngealpenetration. Other: There is vallecular residue with pudding and cracker. There aredegenerative changes of the cervical spine. IMPRESSION: No aspiration or laryngeal penetration. Vallecular residue with puddingand cracker. Please see separate note by Speech therapy team for dietaryrecommendations. CRITICAL RESULT: No. COMMUNICATION: Per this written report. By electronically signing this report, I, the attending physician, attestthat I have personally reviewed the images/data for the aboveexamination(s) and agree with the final edited report. Drafted by Kerwin Kennedy III, MD on 11/02/2024 4:35 PM Final report signed by Carter Palomo MD on 11/02/2024 5:10 PM us Micheal Espinoza MD IMG FLUOROSCOPY PROCEDURES Final Result * [place] CRITICAL CARE, E/M 30-74 MINUTES (11/02/2024 10:25 AM EDT) Narrative Micheal Espinoza MD - 11/02/2024 10:25 AM EDT Micheal Espinoza MD 11/02/2024 2:58 PM Critical Care Performed by: Micheal Espinoza MD Authorized by: Micheal Espinoza MD Critical care provider statement: Critical care time (minutes): 35 Critical care time was exclusive of: Separately billable procedures and treating other patients and teaching time Critical care was time spent personally by me on the following activities: Evaluation of patient's response to treatment, examination of patient, ordering and review of radiographic studies, ordering and performing treatments and interventions, ordering and review of laboratory studies, development of treatment plan with patient or surrogate and discussions with consultants I assumed subsequent critical care for this patient from a provider in my division, on the same day: no Critical care statement: I saw and evaluated the patient with the resident/ fellow. I discussed the case with the resident/ fellow and agree with the findings and plan as documented. Comments: Slightly confused this morning. GCS 14, stable from prior. Remains on Keppra for seizure prophylaxis. On Seroquel at bedtime. Restarted home Prozac. Went to OR with ENT yesterday for fixation of facial fractures. Underwent repeat CT of the face this morning. We will re-engage Ophthalmology to re-evaluate per ENT recommendations. Hypertension improved. On half of her home amlodipine dose. Continuing home Lipitor. On high-flow nasal cannula at 40 L 40%. Aggressive pulmonary hygiene, DuoNebs, weaned to nasal cannula. We will saline lock IV fluids. Adequate urine output, serum creatinine normal. Her urine output this morning has declined somewhat so giving small bolus of free water via Dobbhoff tube. Advancing tube feeds to goal of 65. On a bowel regimen. PT OT recommended subacute rehab. Right upper extremity x-ray was obtained and an avulsion fracture of the 5th metacarpal can not be completely excluded. There is no associated point tenderness. She is on her home levothyroxine. She has normal glycemic. White count stable. No indication for antibiotics. Hemoglobin stable, no indication for blood transfusion. Lovenox for chemical VTE prophylaxis. us Micheal Espinoza MD IN CLINIC/BEDSIDE ORDERABL ES Final Result * CT Face wo IV Contrast (11/02/2024 9:12 AM EDT) Anatomical Region Laterality Modality Facial bones Computed Tomogra phy Impressions 11/02/2024 9:58 AM EDT 1. There has been open reduction and internal fixation of the right maxillary sinus fractures with plate placement. There are again nondisplaced fractures of the right maxillary sinus medial wall. 2. There has been some reduction of the right lateral orbital wall fracture fragments, with residual fracture fragment displacement contacting the right lateral rectus muscle. 3. There has been mesh repair of the right orbital floor fracture, with fracture fragments again displaced into the right maxillary sinus, and a small fracture fragment along the superior aspect of the mesh. There is thin hematoma above the mesh. The mesh contacts and mildly elevates the midportion of the inferior rectus muscle. 4. Intramuscular hematoma and edema within the right inferior rectus muscle. Mild intraorbital fat edema-hemorrhage. Right globe proptosis is similar. 5. Similar appearance to nasal fractures which may be chronic. 6. Small fracture fragment of the right medial pterygoid plate or small foreign body along the right lateral nasopharyngeal wall. 7. Lucency along the medial aspect of the left C2 lateral mass extending to the foramen transversarium region may be related to vascular groove, although a subtle fracture is not excluded. 8. Similar ventricular enlargement with some redistribution of intraventricular hemorrhage as described. 9. Similar slightly displaced right lamina papyracea fractures. CRITICAL RESULT: No. COMMUNICATION: Per this written report. Drafted by Trevor Neal MD on 11/02/2024 9:26 AM Final report signed by Trevor Neal MD on 11/02/2024 9:58 AM Narrative 11/02/2024 9:58 AM EDT CLINICAL INDICATION: post operative. [Reduction internal fixation of right CMC fracture and right orbital floor fracture repair. TECHNIQUE: Spiral images were obtained through the face. Images were reconstructed in the axial plane in bone and soft tissue algorithm. Sagittal and coronal reformatted images were created. Total DLP (Dose-Length Product): 488.75 mGy.cm. Please note: The reported value represents the total of one or more individual components during the CT acquisition on this date and at this time, and as such, the same value may appear in more than one CT report depending on the interpreting/reporting physicians. COMPARISON: Head CT scan from October 30, 2024. Face CT scan from [facility] from October 29, 2024 FINDINGS: Diagnostic Quality: Mildly moderately motion degraded. There is dental material related artifact. The patient is somewhat rotated and tilted. Facial Bones: There has been interval open reduction internal fixation of the right maxillary sinus fractures. There are again the comminuted fractures of the anterior and posterior lateral benites of the right maxillary sinus. The overall fracture fragment position has been returned to near anatomic. Plates of been placed along the right maxillary sinus anterior wall extending inferiorly and along the inferior orbital rim. There are again nondisplaced fractures of the medial wall of the right maxillary sinus. There is again a mild sutural diastases were slightly distracted fracture of the right zygomatic arch. There are again the comminuted fractures of the right lateral orbital wall. There has been some reduction, although some of the fragments are mildly medially displaced and the anterior fragment is somewhat laterally displaced. There is the moderately depressed right orbital floor fracture involving the if orbital canal. Fracture fragments again extent into the right maxillary sinus. A mesh has been placed along the right orbital floor, reasonably symmetric with the contralateral orbital floor. There is hematoma below this and thin hematoma above this. The plate contacts the inferior aspect of the inferior rectus muscle. There are slightly displaced right lamina papyracea fractures, best seen on the coronal images. There is a similar appearance to nasal fractures. A left nasal tube is in place. There is again a small medial pterygoid plate fracture fragment or foreign body along the right lateral nasopharyngeal region on image 55 series 4. Linear low density in the left C2 lateral mass medial aspect may be a vascular groove, however a subtle fracture would not be excluded (image 43 series 4.) There are degenerative changes of the visualized portion of the cervical spine. Intracranial Compartment: Brain parenchymal evaluation is suboptimal, and better on the recent head CT scan. There is similar mild to moderate third and lateral ventriculomegaly, with the left lateral ventricle trigone and occipital horn more enlarged than the right, likely related in part vertex vacuo dilatation, with partially imaged encephalomalacia in this region. There is the intraventricular hemorrhage present, which is somewhat more dependent on the left, in the occipital horn, than on prior. Hemorrhage is again layering within the right occipital horn. The hemorrhage extending to the septum pellucidum is somewhat decreased. There are again probably old lacunar infarcts within the basal ganglia and partially imaged nonspecific but likely ischemic white matter lesions. Orbit Soft Tissues: The right globe is again somewhat proptotic. The inferior rectus muscle is thickened, likely related to intramuscular hematoma, and is contacted by the orbital floor mesh along its inferior aspect and is mildly elevated, best seen on the sagittal images (image 90 series 7). There is what is presumably a small bone fragment present along the lateral aspect of the inferior rectus muscle image 52 series 5. There is mild edema and blood within the intraorbital fat, including extending to the orbital apex. No large retrobulbar hematoma is present. There is a small amount of orbital air. The left orbital soft tissues are normal. There is right preseptal and periorbital soft tissue swelling. Paranasal Sinuses: The right maxillary sinus is largely opacified, predominantly due to hyper dense material which is probably blood. There is moderate opacification of the right ethmoid air cells anteriorly which may be due to blood. Mild presumed blood in the inferior aspect of the right frontal sinus. Additional mild sinus mucosal thickening. Small left maxillary sinus retention cysts. Nasal septal deviation towards the right. The right mastoid air cells are again somewhat under pneumatized and are mildly to moderately opacified with some surrounding sclerosis. There is mild left mastoid air cell opacification. The right tympanic membrane is somewhat thickened. Soft Tissues: There is right facial soft tissue swelling, extending from the mandible to the temporal scalp and in the preseptal and periorbital regions and along the right side of the nose. There is atherosclerotic vascular calcification. There is what is presumably a left carotid stent. Procedure Note Trevor Neal MD - 11/02/2024 CLINICAL INDICATION: post operative. [Reduction internal fixation of right CMC fracture andright orbital floor fracture repair. TECHNIQUE: Spiral images were obtained through the face. Images were reconstructed inthe axial plane in bone and soft tissue algorithm. Sagittal and coronalreformatted images were created. Total DLP (Dose-Length Product): 488.75 mGy.cm. Please note: The reportedvalue represents the total of one or more individual components during theCT acquisition on this date and at this time, and as such, the same valuemay appear in more than one CT report depending on theinterpreting/reporting physicians. COMPARISON: Head CT scan from October 30, 2024. Face CT scan from [facility] from October 29, 2024 FINDINGS: Diagnostic Quality: Mildly moderately motion degraded. There is dentalmaterial related artifact. The patient is somewhat rotated and tilted. Facial Bones: There has been interval open reduction internal fixation ofthe right maxillary sinus fractures. There are again the comminutedfractures of the anterior and posterior lateral benites of the rightmaxillary sinus. The overall fracture fragment position has been returnedto near anatomic. Plates of been placed along the right maxillary sinusanterior wall extending inferiorly and along the inferior orbital rim.There are again nondisplaced fractures of the medial wall of the rightmaxillary sinus. There is again a mild sutural diastases were slightly distracted fractureof the right zygomatic arch. There are again the comminuted fractures of the right lateral orbitalwall. There has been some reduction, although some of the fragments aremildly medially displaced and the anterior fragment is somewhat laterallydisplaced. There is the moderately depressed right orbital floor fracture involvingthe if orbital canal. Fracture fragments again extent into the rightmaxillary sinus. A mesh has been placed along the right orbital floor,reasonably symmetric with the contralateral orbital floor. There ishematoma below this and thin hematoma above this. The plate contacts theinferior aspect of the inferior rectus muscle. There are slightlydisplaced right lamina papyracea fractures, best seen on the coronalimages. There is a similar appearance to nasal fractures. A left nasal tube is inplace. There is again a small medial pterygoid plate fracture fragment or foreignbody along the right lateral nasopharyngeal region on image 55 series 4. Linear low density in the left C2 lateral mass medial aspect may be avascular groove, however a subtle fracture would not be excluded (image 43series 4.) There are degenerative changes of the visualized portion of thecervical spine. Intracranial Compartment: Brain parenchymal evaluation is suboptimal, andbetter on the recent head CT scan. There is similar mild to moderate thirdand lateral ventriculomegaly, with the left lateral ventricle trigone andoccipital horn more enlarged than the right, likely related in part vertexvacuo dilatation, with partially imaged encephalomalacia in this region.There is the intraventricular hemorrhage present, which is somewhat moredependent on the left, in the occipital horn, than on prior. Hemorrhage isagain layering within the right occipital horn. The hemorrhage extendingto the septum pellucidum is somewhat decreased. There are again probablyold lacunar infarcts within the basal ganglia and partially imagednonspecific but likely ischemic white matter lesions. Orbit Soft Tissues: The right globe is again somewhat proptotic. Theinferior rectus muscle is thickened, likely related to intramuscularhematoma, and is contacted by the orbital floor mesh along its inferioraspect and is mildly elevated, best seen on the sagittal images (image 90series 7). There is what is presumably a small bone fragment present alongthe lateral aspect of the inferior rectus muscle image 52 series 5. Thereis mild edema and blood within the intraorbital fat, including extendingto the orbital apex. No large retrobulbar hematoma is present. There is asmall amount of orbital air. The left orbital soft tissues are normal.There is right preseptal and periorbital soft tissue swelling. Paranasal Sinuses: The right maxillary sinus is largely opacified,predominantly due to hyper dense material which is probably blood. Thereis moderate opacification of the right ethmoid air cells anteriorly whichmay be due to blood. Mild presumed blood in the inferior aspect of theright frontal sinus. Additional mild sinus mucosal thickening. Small leftmaxillary sinus retention cysts. Nasal septal deviation towards the right.The right mastoid air cells are again somewhat under pneumatized and aremildly to moderately opacified with some surrounding sclerosis. There ismild left mastoid air cell opacification. The right tympanic membrane issomewhat thickened. Soft Tissues: There is right facial soft tissue swelling, extending fromthe mandible to the temporal scalp and in the preseptal and periorbitalregions and along the right side of the nose. There is atheroscleroticvascular calcification. There is what is presumably a left carotidstent. IMPRESSION: 1. There has been open reduction and internal fixation of the rightmaxillary sinus fractures with plate placement. There are againnondisplaced fractures of the right maxillary sinus medial wall. 2. There has been some reduction of the right lateral orbital wallfracture fragments, with residual fracture fragment displacementcontacting the right lateral rectus muscle. 3. There has been mesh repair of the right orbital floor fracture, withfracture fragments again displaced into the right maxillary sinus, and asmall fracture fragment along the superior aspect of the mesh. There isthin hematoma above the mesh. The mesh contacts and mildly elevates themidportion of the inferior rectus muscle. 4. Intramuscular hematoma and edema within the right inferior rectusmuscle. Mild intraorbital fat edema-hemorrhage. Right globe proptosis issimilar. 5. Similar appearance to nasal fractures which may be chronic. 6. Small fracture fragment of the right medial pterygoid plate or smallforeign body along the right lateral nasopharyngeal wall. 7. Lucency along the medial aspect of the left C2 lateral mass extendingto the foramen transversarium region may be related to vascular groove,although a subtle fracture is not excluded. 8. Similar ventricular enlargement with some redistribution ofintraventricular hemorrhage as described. 9. Similar slightly displaced right lamina papyracea fractures. CRITICAL RESULT: No. COMMUNICATION: Per this written report. Drafted by Trevor Neal MD on 11/02/2024 9:26 AM Final report signed by Trevor Neal MD on 11/02/2024 9:58 AM us Micheal Espinoza MD IMG CT PROCEDURES Final Re sult * (ABNORMAL) POCT arterial blood gas gem (11/01/2024 6:41 PM EDT) pH, Arterial 7.38 7.31 - 7.42 11/01/2024 6:42 PM EDT [facility] pCO2, Arterial 46 35 - 48 mm Hg 11/01/2024 6:42 PM EDT [facility] pO2, Arterial 72(L) >80 mm Hg 11/01/2024 6:42 PM EDT [facility] SO2, Arterial 97 94 - 98 % 11/01/2024 6:42 PM EDT [facility] FIO2 50.0 % 11/01/2024 6:42 PM EDT [facility] Base Excess, Arterial 1.7 -2 - 3 mmol/L 11/01/2024 6:42 PM EDT [facility] HCO3, Arterial 27.2(H) 22 - 26 mmol/L 11/01/2024 6:42 PM EDT [facility] Total Hemoglobin, Arterial, Whole Blood 8.9(L) 11.2 - 15.7 g/dL 11/01/2024 6:42 PM EDT [facility] Hematocrit, Arterial 27.0(L) 34.0 - 45.0 % 11/01/2024 6:42 PM EDT [facility] Sodium, Arterial 141 136 - 145 mmol/L 11/01/2024 6:42 PM EDT [facility] Potassium, Arterial 4.6 3.6 - 4.9 mmol/L 11/01/2024 6:42 PM EDT [facility] Chloride, Whole Blood 109(H) 97 - 107 mmol/L 11/01/2024 6:42 PM EDT [facility] Glucose, Arterial 122(H) 74 - 99 mg/dL 11/01/2024 6:42 PM EDT [facility] Ionized Calcium, Arterial 5.2(H) 4.6 - 5.1 mg/dL 11/01/2024 6:42 PM EDT [facility] Lactate, Arterial 0.8 0.5 - 1.6 mmol/L 11/01/2024 6:42 PM EDT [facility] Body Temperature 37.5 Celsius 11/01/2024 6:42 PM EDT [facility] pH, Temp Corrected, Arterial 7.37 7.31 - 7.42 11/01/2024 6:42 PM EDT [facility] pCO2, Temp Corrected, Arterial 47 35 - 48 mm Hg 11/01/2024 6:42 PM EDT [facility] pO2, Temp Corrected, Arterial 74(L) >80 mm Hg 11/01/2024 6:42 PM EDT [facility] Corset Fitter ID Edwin Sommers 11/01/2024 6:42 PM EDT [facility] Blood, Arterial Whole blood specimen / Unknown 11/01/2024 6:41 PM EDT 11/01/2024 6:42 PM EDT us Micheal Espinoza MD LAB POINT OF CARE TEST DOCKED DEVICE UNSOLICITED RESULTS Final Result Performing Organization Address City/State/[facility] Co de Phone Number [facility] [address] [place] [phone] * (ABNORMAL) POCT glucose meter (11/01/2024 6:09 PM EDT) POCT Glucose 102(H) 74 - 99 mg/dL 11/01/2024 6:11 PM EDT [facility] Comment:Accuracy of a glucos e result obtained from a capillary whole blood specimen relies upon adequate, non-compromised capillary blood flow. If the capillary glucose result is not consistent with the patient's clinical signs and symptoms, glucose testing should be repeated with either an arterial or venous sample on the glucometer or sent to the main labortory for testing. Comment 11/01/2024 6:11 PM EDT [facility] Corset Fitter ID Danitza Méndez 11/01/2024 6:11 PM EDT [facility] Device ID [id number] 11/01/2024 6:11 PM EDT [facility] Specimen Type POC Arterial 11/01/2024 6:11 PM EDT [facility] Blood Arterial blood specimen / Unknown 11/01/2024 6:09 PM EDT 11/01/2024 6:11 PM EDT us Micheal Espinoza MD LAB POINT OF CARE TEST DOCKED DEVICE UNSOLICITED RESULTS Final Result [facility] [address] [place] [address] * Phosphorus (11/01/2024 6:09 PM EDT) Phosphorus, Plasma 3.5 2.5 - 4.5 mg/dL 11/01/2024 6:53 PM EDT [facility] Blood Venous blood specimen / Unknown Venipuncture / Unknown 11/01/2024 6:09 PM EDT 11/01/2024 6:22 PM EDT us Micheal Espinoza MD LAB BLOOD ORDERABLES Final Result [facility] [address] [place] [address] * Magnesium (11/01/2024 6:09 PM EDT) Magnesium, Plasma 2.0 1.9 - 2.4 mg/dL 11/01/2024 6:53 PM EDT [facility] Blood Venous blood specimen / Unknown Venipuncture / Unknown 11/01/2024 6:09 PM EDT 11/01/2024 6:22 PM EDT us Micheal Espinoza MD LAB BLOOD ORDERABLES Final Result Performing Organization Address City/[facility]/ZIP Co de Phone Number [facility] [address] [place] [address] * (ABNORMAL) Comprehensive metabolic panel (11/01/2024 6:09 PM EDT) Glucose, Plasma 113(H) 74 - 99 mg/dL 11/01/2024 6:53 PM EDT [facility] BUN, Plasma 14 8 - 23 mg/dL 11/01/2024 6:53 PM EDT [facility] Creatinine, Plasma 0.78 0.60 - 1.10 mg/dL 11/01/2024 6:53 PM EDT [facility] BUN/Creatinine Ratio 18 11/01/2024 6:53 PM EDT [facility] Sodium, Plasma 142 136 - 145 mmol/L 11/01/2024 6:53 PM EDT [facility] Potassium, Plasma 4.4 3.6 - 4.9 mmol/L 11/01/2024 6:53 PM EDT [facility] Chloride, Plasma 109(H) 97 - 107 mmol/L 11/01/2024 6:53 PM EDT [facility] CO2, Plasma 22 22 - 29 mmol/L 11/01/2024 6:53 PM EDT [facility] Anion Gap 11 6 - 16 mmol/L 11/01/2024 6:53 PM EDT [facility] Total Calcium, Plasma 8.7(L) 8.9 - 10.2 mg/dL 11/01/2024 6:53 PM EDT [facility] Total Protein 6.2(L) 6.3 - 7.9 g/dL 11/01/2024 6:53 PM EDT [facility] Albumin, Plasma 3.2(L) 3.5 - 5.2 g/dL 11/01/2024 6:53 PM EDT [facility] AST, Plasma 72(H) 10 - 35 U/L 11/01/2024 6:53 PM EDT [facility] ALT, Plasma 84(H) 10 - 35 U/L 11/01/2024 6:53 PM EDT [facility] Alkaline Phosphatase, Plasma 194(H) 46 - 142 U/L 11/01/2024 6:53 PM EDT [facility] Total Bilirubin, Plasma 0.7 0.2 - 1.1 mg/dL 11/01/2024 6:53 PM EDT [facility] eGFRcr 83.9 mL/min/1.7 3m*2 11/01/2024 6:53 PM EDT [facility] Comment:Reported eGFRcr in m L/min/1.73m2 is based the CKD-EPI 2020 equation that does not use a race coefficient. Blood Venous blood specimen / Unknown Venipuncture / Unknown 11/01/2024 6:09 PM EDT 11/01/2024 6:22 PM EDT us Micheal Espinoza MD LAB BLOOD ORDERABLES Final Result [facility] [address] [place] [address] * (ABNORMAL) CBC and differential (11/01/2024 6:09 PM EDT) WBC Count 9.73 3.70 - 10.30 10*3/uL LAB HEMATOLOGY METHOD 11/01/2024 6:37 PM EDT [facility] RBC Count 3.48(L) 3.90 - 5.20 10*6/uL LAB HEMATOLOGY METHOD 11/01/2024 6:37 PM EDT [facility] HGB 9.4(L) 11.2 - 15.7 g/dL LAB HEMATOLOGY METHOD 11/01/2024 6:37 PM EDT [facility] HCT 30.8(L) 34.0 - 45.0 % LAB HEMATOLOGY METHOD 11/01/2024 6:37 PM EDT [facility] Platelet Count 198 155 - 369 10*3/uL LAB HEMATOLOGY METHOD 11/01/2024 6:37 PM EDT [facility] MCV 89 79 - 98 fL LAB HEMATOLOGY METHOD 11/01/2024 6:37 PM EDT [facility] MCH 27.0 26.0 - 32.0 pg LAB HEMATOLOGY METHOD 11/01/2024 6:37 PM EDT [facility] MCHC 30.5(L) 30.7 - 35.5 g/dL LAB HEMATOLOGY METHOD 11/01/2024 6:37 PM EDT [facility] RDW 13.3 11.5 - 14.5 % LAB HEMATOLOGY METHOD 11/01/2024 6:37 PM EDT [facility] MPV 10.9 8.8 - 12.5 fL LAB HEMATOLOGY METHOD 11/01/2024 6:37 PM EDT [facility] nRBC 0.0 <=0.0 per 100 WBCs LAB HEMATOLOGY METHOD 11/01/2024 6:37 PM EDT [facility] Differential Type Automated LAB HEMATOLOGY METHOD 11/01/2024 6:37 PM EDT [facility] Neutrophils % 94 % LAB HEMATOLOGY METHOD 11/01/2024 6:37 PM EDT [facility] Lymphocytes % 4 % LAB HEMATOLOGY METHOD 11/01/2024 6:37 PM EDT [facility] Monocytes % 1 % LAB HEMATOLOGY METHOD 11/01/2024 6:37 PM EDT [facility] Eosinophils % 0 % LAB HEMATOLOGY METHOD 11/01/2024 6:37 PM EDT [facility] Basophils % 0 % LAB HEMATOLOGY METHOD 11/01/2024 6:37 PM EDT [facility] Immature Granulocytes % 1 % LAB HEMATOLOGY METHOD 11/01/2024 6:37 PM EDT [facility] Neutrophils Absolute 9.13(H) 1.60 - 6.10 10*3/uL LAB HEMATOLOGY METHOD 11/01/2024 6:37 PM EDT [facility] Lymphocytes Absolute 0.40(L) 1.20 - 3.90 10*3/uL LAB HEMATOLOGY METHOD 11/01/2024 6:37 PM EDT [facility] Monocytes Absolute 0.12(L) 0.30 - 0.90 10*3/uL LAB HEMATOLOGY METHOD 11/01/2024 6:37 PM EDT [facility] Eosinophils Absolute 0.01 0.00 - 0.50 10*3/uL LAB HEMATOLOGY METHOD 11/01/2024 6:37 PM EDT [facility] Basophils Absolute 0.01 0.00 - 0.10 10*3/uL LAB HEMATOLOGY METHOD 11/01/2024 6:37 PM EDT [facility] Immature Granulocytes Absolute 0.06 0.00 - 0.06 10*3/uL LAB HEMATOLOGY METHOD 11/01/2024 6:37 PM EDT [facility] Blood Venous blood specimen / Unknown Venipuncture / Unknown 11/01/2024 6:09 PM EDT 11/01/2024 6:27 PM EDT Narrative [facility] - 11/01/2024 6:37 PM EDT Therapeutic decision making should be based on absolute values, rather than percentages. us Micheal Espinoza MD LAB BLOOD ORDERABLES Final Result [facility] [address] [place] [address] * XR Chest 1 View (11/01/2024 12:15 PM EDT) Anatomical Region Laterality Modality Chest Digital Radiogra phy Impressions 11/01/2024 12:57 PM EDT Worsening vascular congestion and interstitial edema. CRITICAL RESULT: No. COMMUNICATION: Per this written report. Drafted by Ethan Grande MD on 11/01/2024 12:56 PM Final report signed by Ethan Grande MD on 11/01/2024 12:57 PM Narrative 11/01/2024 12:57 PM EDT CLINICAL INDICATION: soa, inc o2 requirement TECHNIQUE: XR CHEST 1 VIEW COMPARISON: October 30, 2024. FINDINGS: Extubation. Feeding tube and right IJ central venous catheter remain in place. Worsening vascular congestion with trace interstitial edema. Trace bilateral pleural effusions. No pneumothorax. Enlarged cardiomediastinal silhouette. Procedure Note Ethan Grande MD - 11/01/2024 CLINICAL INDICATION: soa, inc o2 requirement TECHNIQUE: XR CHEST 1 VIEW COMPARISON: October 30, 2024. FINDINGS: Extubation. Feeding tube and right IJ central venous catheter remain inplace. Worsening vascular congestion with trace interstitial edema. Tracebilateral pleural effusions. No pneumothorax. Enlarged cardiomediastinalsilhouette. IMPRESSION: Worsening vascular congestion and interstitial edema. CRITICAL RESULT: No. COMMUNICATION: Per this written report. Drafted by Ethan Grande MD on 11/01/2024 12:56 PM Final report signed by Ethan Grande MD on 11/01/2024 12:57 PM Micheal Espinoza MD IMG XR PROCEDURES Final Re sult * (ABNORMAL) POCT arterial blood gas gem (11/01/2024 12:10 PM EDT) pH, Arterial 7.41 7.31 - 7.42 11/01/2024 12:12 PM EDT [facility] pCO2, Arterial 43 35 - 48 mm Hg 11/01/2024 12:12 PM EDT [facility] pO2, Arterial 114 >80 mm Hg 11/01/2024 12:12 PM EDT [facility] SO2, Arterial 100(H) 94 - 98 % 11/01/2024 12:12 PM EDT [facility] FIO2 70.0 % 11/01/2024 12:12 PM EDT [facility] Base Excess, Arterial 2.4 -2 - 3 mmol/L 11/01/2024 12:12 PM EDT [facility] HCO3, Arterial 27.3(H) 22 - 26 mmol/L 11/01/2024 12:12 PM EDT [facility] Total Hemoglobin, Arterial, Whole Blood 9.0(L) 11.2 - 15.7 g/dL 11/01/2024 12:12 PM EDT [facility] Hematocrit, Arterial 27.0(L) 34.0 - 45.0 % 11/01/2024 12:12 PM EDT [facility] Sodium, Arterial 142 136 - 145 mmol/L 11/01/2024 12:12 PM EDT [facility] Potassium, Arterial 3.9 3.6 - 4.9 mmol/L 11/01/2024 12:12 PM EDT [facility] Chloride, Whole Blood 110(H) 97 - 107 mmol/L 11/01/2024 12:12 PM EDT [facility] Glucose, Arterial 91 74 - 99 mg/dL 11/01/2024 12:12 PM EDT [facility] Ionized Calcium, Arterial 4.9 4.6 - 5.1 mg/dL 11/01/2024 12:12 PM EDT [facility] Lactate, Arterial 0.7 0.5 - 1.6 mmol/L 11/01/2024 12:12 PM EDT [facility] Body Temperature 37.2 Celsius 11/01/2024 12:12 PM EDT [facility] pH, Temp Corrected, Arterial 7.41 7.31 - 7.42 11/01/2024 12:12 PM EDT [facility] pCO2, Temp Corrected, Arterial 43 35 - 48 mm Hg 11/01/2024 12:12 PM EDT [facility] pO2, Temp Corrected, Arterial 115 >80 mm Hg 11/01/2024 12:12 PM EDT [facility] Corset Fitter ID Edwin Sommers 11/01/2024 12:12 PM EDT [facility] Blood, Arterial Whole blood specimen / Unknown 11/01/2024 12:10 PM EDT 11/01/2024 12:12 PM EDT us Micheal Espinoza MD LAB POINT OF CARE TEST DOCKED DEVICE UNSOLICITED RESULTS Final Result Performing Organization Address City/State/[facility] Co de Phone Number [facility] [address] [place] [phone] * XR Wrist Right 3+ Views (11/01/2024 9:55 AM EDT) Anatomical Region Laterality Modality Upper Extremities, Wrist Right Digital Radiography Impressions 11/01/2024 11:05 AM EDT Small ossific capacity at the dorsal medial base of the fifth metacarpal. Cannot exclude avulsion fracture if the patient is tender in this location. Otherwise no findings of acute osseous or articular abnormality of the right elbow, forearm, hand or wrist. CRITICAL RESULT: No. COMMUNICATION: Per this written report. Drafted by Zurdo Hsieh MD on 11/01/2024 11:01 AM Final report signed by Zurdo Hsieh MD on 11/01/2024 11:05 AM Narrative 11/01/2024 11:05 AM EDT CLINICAL INDICATION: fall from standing TECHNIQUE: XR WRIST RIGHT 3+ VIEWS, XR HAND RIGHT 3+ VIEWS, XR FOREARM RIGHT 2 VIEWS, XR ELBOW RIGHT 3+ VIEWS COMPARISON: None. FINDINGS: 3 views of the right elbow show normal joint space and alignment. No fracture or effusion. Posterior elbow soft tissue swelling. 2 views of the right forearm show nonspecific soft tissue swelling. No fracture or dislocation. 3 views of the right hand and 3 views of the left wrist show degenerative changes of interphalangeal joints with mature arthrodesis of the little finger PIP joint. Ossific capacity projects dorsal and ulnar to the base of the fifth metacarpal. Joint alignment is normal. Procedure Note Zurdo Hsieh MD - 11/01/2024 CLINICAL INDICATION: fall from standing TECHNIQUE: XR WRIST RIGHT 3+ VIEWS, XR HAND RIGHT 3+ VIEWS, XR FOREARM RIGHT 2 VIEWS,XR ELBOW RIGHT 3+ VIEWS COMPARISON: None. FINDINGS: 3 views of the right elbow show normal joint space and alignment. Nofracture or effusion. Posterior elbow soft tissue swelling. 2 views of the right forearm show nonspecific soft tissue swelling. Nofracture or dislocation. 3 views of the right hand and 3 views of the left wrist show degenerativechanges of interphalangeal joints with mature arthrodesis of the littlefinger PIP joint. Ossific capacity projects dorsal and ulnar to the baseof the fifth metacarpal. Joint alignment is normal. IMPRESSION: Small ossific capacity at the dorsal medial base of the fifth metacarpal.Cannot exclude avulsion fracture if the patient is tender in thislocation. Otherwise no findings of acute osseous or articular abnormalityof the right elbow, forearm, hand or wrist. CRITICAL RESULT: No. COMMUNICATION: Per this written report. Drafted by Zurdo Hsieh MD on 11/01/2024 11:01 AM Final report signed by Zurdo Hsieh MD on 11/01/2024 11:05 AM us Micheal Espinoza MD IMG XR PROCEDURES Final Re sult * XR Hand Right 3+ Views (11/01/2024 9:55 AM EDT) Anatomical Region Laterality Modality Upper Extremities, Hand Right Digital Radiography Impressions 11/01/2024 11:05 AM EDT Small ossific capacity at the dorsal medial base of the fifth metacarpal. Cannot exclude avulsion fracture if the patient is tender in this location. Otherwise no findings of acute osseous or articular abnormality of the right elbow, forearm, hand or wrist. CRITICAL RESULT: No. COMMUNICATION: Per this written report. Drafted by Zurdo Hsieh MD on 11/01/2024 11:01 AM Final report signed by Zurdo Hsieh MD on 11/01/2024 11:05 AM Narrative 11/01/2024 11:05 AM EDT CLINICAL INDICATION: fall from standing TECHNIQUE: XR WRIST RIGHT 3+ VIEWS, XR HAND RIGHT 3+ VIEWS, XR FOREARM RIGHT 2 VIEWS, XR ELBOW RIGHT 3+ VIEWS COMPARISON: None. FINDINGS: 3 views of the right elbow show normal joint space and alignment. No fracture or effusion. Posterior elbow soft tissue swelling. 2 views of the right forearm show nonspecific soft tissue swelling. No fracture or dislocation. 3 views of the right hand and 3 views of the left wrist show degenerative changes of interphalangeal joints with mature arthrodesis of the little finger PIP joint. Ossific capacity projects dorsal and ulnar to the base of the fifth metacarpal. Joint alignment is normal. Procedure Note Zurdo Hsieh MD - 11/01/2024 CLINICAL INDICATION: fall from standing TECHNIQUE: XR WRIST RIGHT 3+ VIEWS, XR HAND RIGHT 3+ VIEWS, XR FOREARM RIGHT 2 VIEWS,XR ELBOW RIGHT 3+ VIEWS COMPARISON: None. FINDINGS: 3 views of the right elbow show normal joint space and alignment. Nofracture or effusion. Posterior elbow soft tissue swelling. 2 views of the right forearm show nonspecific soft tissue swelling. Nofracture or dislocation. 3 views of the right hand and 3 views of the left wrist show degenerativechanges of interphalangeal joints with mature arthrodesis of the littlefinger PIP joint. Ossific capacity projects dorsal and ulnar to the baseof the fifth metacarpal. Joint alignment is normal. IMPRESSION: Small ossific capacity at the dorsal medial base of the fifth metacarpal.Cannot exclude avulsion fracture if the patient is tender in thislocation. Otherwise no findings of acute osseous or articular abnormalityof the right elbow, forearm, hand or wrist. CRITICAL RESULT: No. COMMUNICATION: Per this written report. Drafted by Zurdo Hsieh MD on 11/01/2024 11:01 AM Final report signed by Zurdo Hsieh MD on 11/01/2024 11:05 AM us Micheal Espinoza MD IMG XR PROCEDURES Final Re sult * XR Elbow Right 3+ View (11/01/2024 9:55 AM EDT) Anatomical Region Laterality Modality Upper Extremities, Elbow Right Digital Radiography Impressions 11/01/2024 11:05 AM EDT Small ossific capacity at the dorsal medial base of the fifth metacarpal. Cannot exclude avulsion fracture if the patient is tender in this location. Otherwise no findings of acute osseous or articular abnormality of the right elbow, forearm, hand or wrist. CRITICAL RESULT: No. COMMUNICATION: Per this written report. Drafted by Zurdo Hsieh MD on 11/01/2024 11:01 AM Final report signed by Zurdo Hsieh MD on 11/01/2024 11:05 AM Narrative 11/01/2024 11:05 AM EDT CLINICAL INDICATION: fall from standing TECHNIQUE: XR WRIST RIGHT 3+ VIEWS, XR HAND RIGHT 3+ VIEWS, XR FOREARM RIGHT 2 VIEWS, XR ELBOW RIGHT 3+ VIEWS COMPARISON: None. FINDINGS: 3 views of the right elbow show normal joint space and alignment. No fracture or effusion. Posterior elbow soft tissue swelling. 2 views of the right forearm show nonspecific soft tissue swelling. No fracture or dislocation. 3 views of the right hand and 3 views of the left wrist show degenerative changes of interphalangeal joints with mature arthrodesis of the little finger PIP joint. Ossific capacity projects dorsal and ulnar to the base of the fifth metacarpal. Joint alignment is normal. Procedure Note Zurdo Hsieh MD - 11/01/2024 CLINICAL INDICATION: fall from standing TECHNIQUE: XR WRIST RIGHT 3+ VIEWS, XR HAND RIGHT 3+ VIEWS, XR FOREARM RIGHT 2 VIEWS,XR ELBOW RIGHT 3+ VIEWS COMPARISON: None. FINDINGS: 3 views of the right elbow show normal joint space and alignment. Nofracture or effusion. Posterior elbow soft tissue swelling. 2 views of the right forearm show nonspecific soft tissue swelling. Nofracture or dislocation. 3 views of the right hand and 3 views of the left wrist show degenerativechanges of interphalangeal joints with mature arthrodesis of the littlefinger PIP joint. Ossific capacity projects dorsal and ulnar to the baseof the fifth metacarpal. Joint alignment is normal. IMPRESSION: Small ossific capacity at the dorsal medial base of the fifth metacarpal.Cannot exclude avulsion fracture if the patient is tender in thislocation. Otherwise no findings of acute osseous or articular abnormalityof the right elbow, forearm, hand or wrist. CRITICAL RESULT: No. COMMUNICATION: Per this written report. Drafted by Zurdo Hsieh MD on 11/01/2024 11:01 AM Final report signed by Zurdo Hsieh MD on 11/01/2024 11:05 AM us Micheal Espinoza MD IMG XR PROCEDURES Final Re sult * XR Forearm Right 2 View (11/01/2024 9:55 AM EDT) Anatomical Region Laterality Modality Upper Extremities, Forearm Right Digit al Radiography Impressions 11/01/2024 11:05 AM EDT Small ossific capacity at the dorsal medial base of the fifth metacarpal. Cannot exclude avulsion fracture if the patient is tender in this location. Otherwise no findings of acute osseous or articular abnormality of the right elbow, forearm, hand or wrist. CRITICAL RESULT: No. COMMUNICATION: Per this written report. Drafted by Zurdo Hsieh MD on 11/01/2024 11:01 AM Final report signed by Zurdo Hsieh MD on 11/01/2024 11:05 AM Narrative 11/01/2024 11:05 AM EDT CLINICAL INDICATION: fall from standing TECHNIQUE: XR WRIST RIGHT 3+ VIEWS, XR HAND RIGHT 3+ VIEWS, XR FOREARM RIGHT 2 VIEWS, XR ELBOW RIGHT 3+ VIEWS COMPARISON: None. FINDINGS: 3 views of the right elbow show normal joint space and alignment. No fracture or effusion. Posterior elbow soft tissue swelling. 2 views of the right forearm show nonspecific soft tissue swelling. No fracture or dislocation. 3 views of the right hand and 3 views of the left wrist show degenerative changes of interphalangeal joints with mature arthrodesis of the little finger PIP joint. Ossific capacity projects dorsal and ulnar to the base of the fifth metacarpal. Joint alignment is normal. Procedure Note Zurdo Hsieh MD - 11/01/2024 CLINICAL INDICATION: fall from standing TECHNIQUE: XR WRIST RIGHT 3+ VIEWS, XR HAND RIGHT 3+ VIEWS, XR FOREARM RIGHT 2 VIEWS,XR ELBOW RIGHT 3+ VIEWS COMPARISON: None. FINDINGS: 3 views of the right elbow show normal joint space and alignment. Nofracture or effusion. Posterior elbow soft tissue swelling. 2 views of the right forearm show nonspecific soft tissue swelling. Nofracture or dislocation. 3 views of the right hand and 3 views of the left wrist show degenerativechanges of interphalangeal joints with mature arthrodesis of the littlefinger PIP joint. Ossific capacity projects dorsal and ulnar to the baseof the fifth metacarpal. Joint alignment is normal. IMPRESSION: Small ossific capacity at the dorsal medial base of the fifth metacarpal.Cannot exclude avulsion fracture if the patient is tender in thislocation. Otherwise no findings of acute osseous or articular abnormalityof the right elbow, forearm, hand or wrist. CRITICAL RESULT: No. COMMUNICATION: Per this written report. Drafted by Zurdo Hsieh MD on 11/01/2024 11:01 AM Final report signed by Zurdo Hsieh MD on 11/01/2024 11:05 AM us Micheal Espinoza MD IMG XR PROCEDURES Final Re sult * [place] CRITICAL CARE, E/M 30-74 MINUTES (11/01/2024 7:22 AM EDT) Narrative Micheal Espinoza MD - 11/01/2024 7:22 AM EDT Micheal Espinoza MD 11/01/2024 1:55 PM Critical Care Performed by: Micheal Espinoza MD Authorized by: Micheal Espinoza MD Critical care provider statement: Critical care time (minutes): 38 Critical care time was exclusive of: Separately billable procedures and treating other patients Critical care was time spent personally by me on the following activities: Development of treatment plan with patient or surrogate, discussions with consultants, evaluation of patient's response to treatment, examination of patient, ordering and review of laboratory studies and ordering and performing treatments and interventions I assumed subsequent critical care for this patient from a provider in my division, on the same day: no Critical care statement: I saw and evaluated the patient with the resident/ fellow. I discussed the case with the resident/ fellow and agree with the findings and plan as documented. Comments: Neurosurgery following for TBI - 7 days of keppra for seizure prophylaxis. Ophtho planning dilated exam, appropriate today. ENT planning OR for fixation of facial fractures. Has been hemodynamically stable. On home statin. Tolerated extubation. Had episode of desaturation today requiring HFNC. Will delay OR to allow re-recruitment and sustained adequate oxygenation. Tube feeds per Dobhoff. Can resume today and hold in AM for possible OR. Continue bowel reg. Adequate urine output. Normoglycemic. No indication for supplemental insulin. No evidence of active systemic infection. No abx. Hgb downtrended. No signs of active bleeding. Monitoring, no blood transfusion indicated. Chemical VTE prophylaxis. Micheal Espinoza MD IN CLINIC/BEDSIDE ORDERABL ES Final Result * (ABNORMAL) Phosphorus, Plasma (10/31/2024 11:49 PM EDT) Phosphorus, Plasma 2.0(L) 2.5 - 4.5 mg/dL 11/01/2024 12:42 AM EDT [facility] Blood Venous blood specimen / Unknown Venipuncture / Unknown 10/31/2024 11:49 PM EDT 10/31/2024 11:59 PM EDT Erica Castillo APRN LAB BLOOD ORDERABLES Final Result Performing Organization Address [facility]/ZIP Co de Phone Number [facility] [address] [place] [address] * Magnesium, Plasma (10/31/2024 11:49 PM EDT) Magnesium, Plasma 1.9 1.9 - 2.4 mg/dL 11/01/2024 12:42 AM EDT [facility] Blood Venous blood specimen / Unknown Venipuncture / Unknown 10/31/2024 11:49 PM EDT 10/31/2024 11:59 PM EDT Jirafe Day Castillo PULL OUT OPERATOR LAB BLOOD ORDERABLES Final Result [facility] [address] [place] [address] * Ionized calcium, whole blood (10/31/2024 11:49 PM EDT) Ionized Calcium, Whole Blood 4.6 4.6 - 5.1 mg/dL LAB HEMATOLOGY METHOD 11/01/2024 12:01 AM EDT [facility] Blood Venous blood specimen / Unknown Venipuncture / Unknown 10/31/2024 11:49 PM EDT 10/31/2024 11:59 PM EDT Erica Castillo PULL OUT OPERATOR LAB BLOOD ORDERABLES Final Result [facility] [address] [place] [address] * (ABNORMAL) CBC W/O Differential (10/31/2024 11:49 PM EDT) WBC Count 9.34 3.70 - 10.30 10*3/uL LAB HEMATOLOGY METHOD 11/01/2024 12:32 AM EDT [facility] RBC Count 2.97(L) 3.90 - 5.20 10*6/uL LAB HEMATOLOGY METHOD 11/01/2024 12:32 AM EDT [facility] HGB 8.1(L) 11.2 - 15.7 g/dL LAB HEMATOLOGY METHOD 11/01/2024 12:32 AM EDT [facility] HCT 26.5(L) 34.0 - 45.0 % LAB HEMATOLOGY METHOD 11/01/2024 12:32 AM EDT [facility] Platelet Count 179 155 - 369 10*3/uL LAB HEMATOLOGY METHOD 11/01/2024 12:32 AM EDT [facility] MCV 89 79 - 98 fL LAB HEMATOLOGY METHOD 11/01/2024 12:32 AM EDT [facility] MCH 27.3 26.0 - 32.0 pg LAB HEMATOLOGY METHOD 11/01/2024 12:32 AM EDT [facility] MCHC 30.6(L) 30.7 - 35.5 g/dL LAB HEMATOLOGY METHOD 11/01/2024 12:32 AM EDT [facility] RDW 13.2 11.5 - 14.5 % LAB HEMATOLOGY METHOD 11/01/2024 12:32 AM EDT [facility] MPV 10.7 8.8 - 12.5 fL LAB HEMATOLOGY METHOD 11/01/2024 12:32 AM EDT [facility] nRBC 0.0 <=0.0 per 100 WBCs LAB HEMATOLOGY METHOD 11/01/2024 12:32 AM EDT [facility] Blood Venous blood specimen / Unknown Venipuncture / Unknown 10/31/2024 11:49 PM EDT 10/31/2024 11:59 PM EDT Erica Castillo PULL OUT OPERATOR LAB BLOOD ORDERABLES Final Result [facility] [address] [place] [address] * (ABNORMAL) Basic Metabolic Panel, Plasma (10/31/2024 11:49 PM EDT) Glucose, Plasma 133(H) 74 - 99 mg/dL 11/01/2024 12:42 AM EDT [facility] BUN, Plasma 16 8 - 23 mg/dL 11/01/2024 12:42 AM EDT [facility] Creatinine, Plasma 0.80 0.60 - 1.10 mg/dL 11/01/2024 12:42 AM EDT [facility] BUN/Creatinine Ratio 20 11/01/2024 12:42 AM EDT [facility] Sodium, Plasma 143 136 - 145 mmol/L 11/01/2024 12:42 AM EDT [facility] Potassium, Plasma 4.0 3.6 - 4.9 mmol/L 11/01/2024 12:42 AM EDT [facility] Chloride, Plasma 111(H) 97 - 107 mmol/L 11/01/2024 12:42 AM EDT [facility] CO2, Plasma 22 22 - 29 mmol/L 11/01/2024 12:42 AM EDT [facility] Anion Gap 10 6 - 16 mmol/L 11/01/2024 12:42 AM EDT [facility] Total Calcium, Plasma 7.7(L) 8.9 - 10.2 mg/dL 11/01/2024 12:42 AM EDT [facility] eGFRcr 81.4 mL/min/1.7 3m*2 11/01/2024 12:42 AM EDT [facility] Comment:Reported eGFRcr in m L/min/1.73m2 is based the CKD-EPI 2020 equation that does not use a race coefficient. Blood Venous blood specimen / Unknown Venipuncture / Unknown 10/31/2024 11:49 PM EDT 10/31/2024 11:59 PM EDT us Erica Castillo PULL OUT OPERATOR LAB BLOOD ORDERABLES Final Result [facility] [address] [place] [address] * [place] CRITICAL CARE, E/M 30-74 MINUTES (10/31/2024 10:48 AM EDT) Narrative Micheal Espinoza MD - 10/31/2024 10:48 AM EDT Micheal Espinoza MD 10/31/2024 1:26 PM Critical Care Performed by: Micheal Espinoza MD Authorized by: Micheal Espinoza MD Critical care provider statement: Critical care time (minutes): 38 Critical care time was exclusive of: Separately billable procedures and treating other patients Critical care was time spent personally by me on the following activities: Evaluation of patient's response to treatment, examination of patient, obtaining history from patient or surrogate, development of treatment plan with patient or surrogate, ordering and performing treatments and interventions, ordering and review of laboratory studies, ordering and review of radiographic studies and ventilator management Comments: Seen and examined with the Advanced Practice Provider ([facility]KA). I attest to being personally involved in more than half the total time in patient care including obtaining and reviewing the history, performing and documenting the exam, and medical decision making. Neurosurgery following, stable head CT. Following commands on exam with sedation off. Sequelae of transfusion reaction appear resolved. Off vasopressors. Switched to pressure support and taking good volumes. Plan extubation today. No significant infectious concerns. us Micheal Espinoza MD IN CLINIC/BEDSIDE ORDERABL ES Final Result * Triglycerides (10/31/2024 6:56 AM EDT) Triglycerides, Plasma 82 <150 mg/dL 10/31/2024 7:42 AM EDT [facility] Comment: Triglyceride Reference Range (age >17 years): Desirable: <150 mg/dL Borderline high: 150 to 199 mg/dL High: 200 to 499 mg/dL Very high: >499 mg/dL Increased risk of pancreatitis: >1000 mg/dL Fasting greater than or equal to 12 hours? No 10/31/2024 7:42 AM EDT [facility] Blood Venous blood specimen / Unknown Venipuncture / Unknown 10/31/2024 6:56 AM EDT 10/31/2024 7:09 AM EDT us Katharine Savage MD LAB BLOOD ORDERABLES Final Resul t [facility] [address] [place] [address] * (ABNORMAL) Blood gas, arterial (10/30/2024 11:11 PM EDT) pH, Arterial 7.41 7.31 - 7.42 LAB HEMATOLOGY METHOD 10/30/2024 11:19 PM EDT [facility] pCO2, Arterial 38 35 - 48 mmHg LAB HEMATOLOGY METHOD 10/30/2024 11:19 PM EDT [facility] pO2, Arterial 192 >80 mmHg LAB HEMATOLOGY METHOD 10/30/2024 11:19 PM EDT [facility] SO2, Measured, Arterial 100(H) 94 - 98 % LAB HEMATOLOGY METHOD 10/30/2024 11:19 PM EDT [facility] Base Excess, Arterial -0.2 -2.0 - 3.0 mmol/L LAB HEMATOLOGY METHOD 10/30/2024 11:19 PM EDT [facility] Bicarbonate, Calculated, Arterial 24 22 - 26 mmol/L LAB HEMATOLOGY METHOD 10/30/2024 11:19 PM EDT [facility] Hematocrit, Whole Blood 27.5(L) 34.0 - 45.0 % LAB HEMATOLOGY METHOD 10/30/2024 11:19 PM EDT [facility] Sodium, Whole Blood 140 136 - 145 mmol/L LAB HEMATOLOGY METHOD 10/30/2024 11:19 PM EDT [facility] Potassium, Whole Blood 4.0 3.6 - 4.9 mmol/L LAB HEMATOLOGY METHOD 10/30/2024 11:19 PM EDT [facility] Chloride, Whole Blood 110(H) 97 - 107 mmol/L LAB HEMATOLOGY METHOD 10/30/2024 11:19 PM EDT [facility] Glucose, Whole Blood 138(H) 74 - 99 mg/dL LAB HEMATOLOGY METHOD 10/30/2024 11:19 PM EDT [facility] Ionized Calcium, Whole Blood 4.4(L) 4.6 - 5.1 mg/dL LAB HEMATOLOGY METHOD 10/30/2024 11:19 PM EDT [facility] Lactate, Arterial, Whole Blood 1.5 0.5 - 1.6 mmol/L LAB HEMATOLOGY METHOD 10/30/2024 11:19 PM EDT [facility] Blood Arterial blood specimen / Unknown Arterial Puncture / Unknown 10/30/2024 11:11 PM EDT 10/30/2024 11:17 PM EDT Isabelle Soto MD LAB BLOOD ORDERABLES Evelyn l Result [facility] [address] [place] [address] * Phosphorus, Plasma (10/30/2024 11:11 PM EDT) Phosphorus, Plasma 2.9 2.5 - 4.5 mg/dL 10/30/2024 11:46 PM EDT [facility] Blood Venous blood specimen / Unknown Venipuncture / Unknown 10/30/2024 11:11 PM EDT 10/30/2024 11:17 PM EDT Erica Castillo APRN LAB BLOOD ORDERABLES Final Result Performing Organization Address City/[facility]/ZIP Co de Phone Number [facility] [address] [place] [address] * (ABNORMAL) Magnesium, Plasma (10/30/2024 11:11 PM EDT) Magnesium, Plasma 1.8(L) 1.9 - 2.4 mg/dL 10/30/2024 11:46 PM EDT [facility] Blood Venous blood specimen / Unknown Venipuncture / Unknown 10/30/2024 11:11 PM EDT 10/30/2024 11:17 PM EDT Erica Castillo PULL OUT OPERATOR LAB BLOOD ORDERABLES Final Result [facility] [address] [place] [address] * Ionized calcium, whole blood (10/30/2024 11:11 PM EDT) Ionized Calcium, Whole Blood 4.6 4.6 - 5.1 mg/dL LAB HEMATOLOGY METHOD 10/30/2024 11:19 PM EDT [facility] Blood Venous blood specimen / Unknown Venipuncture / Unknown 10/30/2024 11:11 PM EDT 10/30/2024 11:17 PM EDT Erica Bernstein Castillo AMY LAB BLOOD ORDERABLES Final Result [facility] [address] [place] [address] * (ABNORMAL) CBC W/O Differential (10/30/2024 11:11 PM EDT) Pathologist [facility] WBC Count 9.72 3.70 - 10.30 10*3/uL LAB HEMATOLOGY METHOD 10/30/2024 11:24 PM EDT [facility] RBC Count 3.36(L) 3.90 - 5.20 10*6/uL LAB HEMATOLOGY METHOD 10/30/2024 11:24 PM EDT [facility] HGB 9.2(L) 11.2 - 15.7 g/dL LAB HEMATOLOGY METHOD 10/30/2024 11:24 PM EDT [facility] HCT 29.8(L) 34.0 - 45.0 % LAB HEMATOLOGY METHOD 10/30/2024 11:24 PM EDT [facility] Platelet Count 250 155 - 369 10*3/uL LAB HEMATOLOGY METHOD 10/30/2024 11:24 PM EDT [facility] MCV 89 79 - 98 fL LAB HEMATOLOGY METHOD 10/30/2024 11:24 PM EDT [facility] MCH 27.4 26.0 - 32.0 pg LAB HEMATOLOGY METHOD 10/30/2024 11:24 PM EDT [facility] MCHC 30.9 30.7 - 35.5 g/dL LAB HEMATOLOGY METHOD 10/30/2024 11:24 PM EDT [facility] RDW 13.1 11.5 - 14.5 % LAB HEMATOLOGY METHOD 10/30/2024 11:24 PM EDT [facility] MPV 10.1 8.8 - 12.5 fL LAB HEMATOLOGY METHOD 10/30/2024 11:24 PM EDT [facility] nRBC 0.0 <=0.0 per 100 WBCs LAB HEMATOLOGY METHOD 10/30/2024 11:24 PM EDT [facility] Blood Venous blood specimen / Unknown Venipuncture / Unknown 10/30/2024 11:11 PM EDT 10/30/2024 11:17 PM EDT Erica Castillo APRN LAB BLOOD ORDERABLES Final Result [facility] [address] [place] [address] * (ABNORMAL) Basic Metabolic Panel, Plasma (10/30/2024 11:11 PM EDT) Glucose, Plasma 145(H) 74 - 99 mg/dL 10/30/2024 11:46 PM EDT [facility] BUN, Plasma 17 8 - 23 mg/dL 10/30/2024 11:46 PM EDT [facility] Creatinine, Plasma 0.99 0.60 - 1.10 mg/dL 10/30/2024 11:46 PM EDT [facility] BUN/Creatinine Ratio 17 10/30/2024 11:46 PM EDT [facility] Sodium, Plasma 141 136 - 145 mmol/L 10/30/2024 11:46 PM EDT [facility] Potassium, Plasma 4.3 3.6 - 4.9 mmol/L 10/30/2024 11:46 PM EDT [facility] Chloride, Plasma 110(H) 97 - 107 mmol/L 10/30/2024 11:46 PM EDT [facility] CO2, Plasma 22 22 - 29 mmol/L 10/30/2024 11:46 PM EDT [facility] Anion Gap 9 6 - 16 mmol/L 10/30/2024 11:46 PM EDT [facility] Total Calcium, Plasma 8.2(L) 8.9 - 10.2 mg/dL 10/30/2024 11:46 PM EDT [facility] eGFRcr 63.0 mL/min/1.7 3m*2 10/30/2024 11:46 PM EDT [facility] Comment:Reported eGFRcr in m L/min/1.73m2 is based the CKD-EPI 2020 equation that does not use a race coefficient. Blood Venous blood specimen / Unknown Venipuncture / Unknown 10/30/2024 11:11 PM EDT 10/30/2024 11:17 PM EDT Erica Day Jonathan REYES LAB BLOOD ORDERABLES Final Result Performing Organization Address City/[facility]/ZIP Co de Phone Number [facility] [address] [place] [address] * (ABNORMAL) POCT glucose meter (10/30/2024 6:23 PM EDT) POCT Glucose 159(H) 74 - 99 mg/dL 10/30/2024 6:24 PM EDT [facility] Comment:Accuracy of a glucos e result obtained from a capillary whole blood specimen relies upon adequate, non-compromised capillary blood flow. If the capillary glucose result is not consistent with the patient's clinical signs and symptoms, glucose testing should be repeated with either an arterial or venous sample on the glucometer or sent to the main labortory for testing. Comment 10/30/2024 6:24 PM EDT [facility] Corset Fitter ID Earline Ridley 10/30/2024 6:24 PM EDT [facility] Device ID [id number] 10/30/2024 6:24 PM EDT [facility] Specimen Type POC Arterial 10/30/2024 6:24 PM EDT [facility] Blood Arterial blood specimen / Unknown 10/30/2024 6:23 PM EDT 10/30/2024 6:24 PM EDT Isabelle Soto MD LAB POINT OF CARE TEST DOCKED DEVICE UNSOLICITED RESULTS Final Result Performing Organization Address City/[facility]/ZIP Co de Phone Number [facility]ALTHCARE LAB [address] [place] [address] * XR Chest 1 View (10/30/2024 4:11 PM EDT) Anatomical Region Laterality Modality Chest Digital Radiogra phy Impressions 10/30/2024 4:31 PM EDT Right IJ CVC tip in the SVC. No pneumothorax. Increased left pleural effusion and a similar opacities. CRITICAL RESULT: No. COMMUNICATION: Per this written report. Drafted by Nolvia Clements MD on 10/30/2024 4:29 PM Final report signed by Nolvia Clements MD on 10/30/2024 4:31 PM Narrative 10/30/2024 4:31 PM EDT CLINICAL INDICATION: Central line placement TECHNIQUE: XR CHEST 1 VIEW COMPARISON: October 30, 2024. FINDINGS: Enteric feeding tube terminates below the diaphragm. Right internal jugular central venous catheter tip in the SVC. Endotracheal tube remains in place. Increased left pleural effusion and basilar opacities. No pneumothorax. Stable cardiac silhouette. Procedure Note Nolvia Clements MD - 10/30/2024 CLINICAL INDICATION: Central line placement TECHNIQUE: XR CHEST 1 VIEW COMPARISON: October 30, 2024. FINDINGS: Enteric feeding tube terminates below the diaphragm. Right internaljugular central venous catheter tip in the SVC. Endotracheal tube remainsin place. Increased left pleural effusion and basilar opacities. Nopneumothorax. Stable cardiac silhouette. IMPRESSION: Right IJ CVC tip in the SVC. No pneumothorax. Increased left pleural effusion and a similar opacities. CRITICAL RESULT: No. COMMUNICATION: Per this written report. Drafted by Nolvia Clements MD on 10/30/2024 4:29 PM Final report signed by Nolvia Clements MD on 10/30/2024 4:31 PM us Isabelle Soto MD IMG XR PROCEDURES Final R esult * OK INSERT NON-TUNNEL CV CATH, HC INSERT NON-TUNNEL CV CATH, CVC TRIPLE LUMEN (SMARTFORM LINK) (10/30/2024 4:02 PM EDT) Narrative Isabelle Soto MD - 10/30/2024 4:02 PM EDT Isabelle Soto MD 11/02/2024 10:20 AM Central Line Performed by: Erica Castillo APRN Authorized by: Erica Castillo APRN Consent: Consent obtained: Written Consent given by: son. Risks, benefits, and alternatives were discussed: yes Alternatives discussed: No treatment [place] protocol: Imaging studies available: yes Site/side marked: yes Immediately prior to procedure, a time out was called: yes Patient identity confirmed: Arm band Attending Supervision?: yes Pre-procedure details: Indication(s): central venous access Hand hygiene: Hand hygiene performed prior to insertion Sterile barrier technique: All elements of maximal sterile technique followed Skin preparation: Chlorhexidine Skin preparation agent: Skin preparation agent completely dried prior to procedure Anesthesia: Anesthesia method: None Procedure details: Location: R internal jugular Patient position: Reverse Trendelenburg Procedural supplies: Triple lumen Landmarks identified: yes Ultrasound guidance: yes Ultrasound guidance timing: prior to insertion and real time Sterile ultrasound techniques: Sterile gel and sterile probe covers were used Number of attempts: 1 Successful placement: yes Post-procedure details: Post-procedure: Dressing applied and line sutured Assessment: Blood return through all ports and no pneumothorax on x-ray Procedure completion: Tolerated well, no immediate complications us Erica Castillo APRN IN CLINIC/BEDSIDE ORDERABL ES Final Result * Urinalysis Microscopic Examination (10/30/2024 2:11 PM EDT) Urine Urine specimen from urinary conduit / Unknown Non-blood Collection / Unknown 10/30/2024 2:11 PM EDT 10/30/2024 2:16 PM EDT us Erica Castillo APRN LAB URINE ORDERABLES Final Result [facility] [address] [place] [address] * (ABNORMAL) Urinalysis with reflex microscopic (Culture NOT Included) (10/30/2024 2:11 PM EDT) Color, Urine Dark Yellow LAB URINALYSIS - AUTOMATED METHOD 10/30/2024 2:36 PM EDT [facility] Clarity, Urine Cloudy LAB URINALYSIS - AUTOMATED METHOD 10/30/2024 2:36 PM EDT [facility] Spec [place], Urine >1.030(H) 1.005 - 1.030 LAB URINALYSIS - AUTOMATED METHOD 10/30/2024 2:36 PM EDT [facility] pH, Urine 5.5 5.0 - 8.0 LAB URINALYSIS - AUTOMATED METHOD 10/30/2024 2:36 PM EDT [facility] Protein, Urine 100(A) Negative mg/dL LAB URINALYSIS - AUTOMATED METHOD 10/30/2024 2:36 PM EDT [facility] Glucose, Urine Negative Negative mg/dL LAB URINALYSIS - AUTOMATED METHOD 10/30/2024 2:36 PM EDT [facility] Ketones, Urine Trace(A) Negative mg/dL LAB URINALYSIS - AUTOMATED METHOD 10/30/2024 2:36 PM EDT [facility] Blood, Urine Large(A) Negative LAB URINALYSIS - AUTOMATED METHOD 10/30/2024 2:36 PM EDT [facility] Bilirubin, Urine Negative Negative LAB URINALYSIS - AUTOMATED METHOD 10/30/2024 2:36 PM EDT [facility] Urobilinogen, Urine 1.0 0.2 to 1.0 mg/dL LAB URINALYSIS - AUTOMATED METHOD 10/30/2024 2:36 PM EDT [facility] Leukocytes, Urine Trace(A) Negative LAB URINALYSIS - AUTOMATED METHOD 10/30/2024 2:36 PM EDT [facility] Nitrite, Urine Negative Negative LAB URINALYSIS - AUTOMATED METHOD 10/30/2024 2:36 PM EDT [facility] RBC, Urine >50(A) 0 to 3 /HPF LAB URINALYSIS - AUTOMATED METHOD 10/30/2024 2:36 PM EDT [facility] WBC, Urine 6 - 10(A) 0 to 5 /HPF LAB URINALYSIS - AUTOMATED METHOD 10/30/2024 2:36 PM EDT [facility] Squamous Epithelial Cells 0 - 2 0 to 5 /HPF LAB URINALYSIS - AUTOMATED METHOD 10/30/2024 2:36 PM EDT [facility] Hyaline Casts 0 - 2 0 to 5 /LPF LAB URINALYSIS - AUTOMATED METHOD 10/30/2024 2:36 PM EDT [facility] Bacteria, Urine Negative Negative LAB URINALYSIS - AUTOMATED METHOD 10/30/2024 2:36 PM EDT [facility] Urine Urine specimen from urinary conduit / Unknown Non-blood Collection / Unknown 10/30/2024 2:11 PM EDT 10/30/2024 2:16 PM EDT Erica Castillo PULL OUT OPERATOR LAB URINE ORDERABLES Final Result Performing Organization Address [facility]/ZIP Co de Phone Number [facility] [address] [place] [address] * (ABNORMAL) Troponin T, High Sensitivity, 2 Hour, Plasma (10/30/2024 1:24 PM EDT) Troponin T, High Sensitivity, 2 Hour 418(H) <14 ng/L 10/30/2024 1:56 PM EDT [facility] Troponin Delta Interpretation Not Calculated 10/30/2024 1:56 PM EDT [facility] Comment:Specimen not collect ed within acceptable timeframe. Delta will not be calculated. Blood Arterial blood specimen / Unknown Arterial Puncture / Unknown 10/30/2024 1:24 PM EDT 10/30/2024 1:28 PM EDT Icera PULL OUT OPERATOR LAB BLOOD ORDERABLES Final Result Performing Organization Address [facility] de Phone Number [facility] [address] [place] [address] * CT Head wo IV Contrast (10/30/2024 12:06 PM EDT) Anatomical Region Laterality Modality Head Computed Tomogra phy Impressions 10/31/2024 2:45 AM EDT 1. Stable intraventricular hemorrhage. 2. Stable ventriculomegaly which may be due to central predominant brain volume loss or normal pressure hydrocephalus. 3. Stable chronic appearing lacunar infarcts and probable old left occipital infarct. CRITICAL RESULT: No. COMMUNICATION: Per this written report. Drafted by Gutierrez Schaefer MD on 10/31/2024 2:35 AM Final report signed by Gutierrez Schaefer MD on 10/31/2024 2:45 AM Narrative 10/31/2024 2:45 AM EDT CLINICAL INDICATION: Head trauma, moderate-severe TECHNIQUE: Spiral axial CT images of the head were obtained without contrast administration. Total DLP (Dose-Length Product): 706.49 mGy.cm. Please note: The reported value represents the total of one or more individual components during the CT acquisition on this date and at this time, and as such, the same value may appear in more than one CT report depending on the interpreting/reporting physicians. COMPARISON: Head CT October 30, 2024 0535 hours FINDINGS: Diagnostic Quality: Adequate. Stable intraventricular hemorrhage within the bilateral lateral ventricles, left greater than right. There is again encephalomalacia in the left occipital lobe with ex vacuo dilation of the occipital horn of the left lateral ventricle. Chronic appearing lacunar infarcts again noted within the deep mims nuclei bilaterally. No new intracranial hemorrhage. Stable mild to moderate lateral and third ventriculomegaly. There is no acute large cortical infarct or large mass on this noncontrast study. There is a moderate amount of non-specific but likely ischemic white matter lesions. Soft Tissues: No significant soft tissue swelling is present. Skull: There are no calvarial destructive lesions or fractures. Sinuses and Mastoids: Depressed right ZMC fracture again noted with opacification of the right maxillary sinus. The mastoid air cells are clear. Procedure Note Gutierrez Schaefer MD - 10/31/2024 CLINICAL INDICATION: Head trauma, moderate-severe TECHNIQUE: Spiral axial CT images of the head were obtained without contrastadministration. Total DLP (Dose-Length Product): 706.49 mGy.cm. Please note: The reportedvalue represents the total of one or more individual components during theCT acquisition on this date and at this time, and as such, the same valuemay appear in more than one CT report depending on theinterpreting/reporting physicians. COMPARISON: Head CT October 30, 2024 0535 hours FINDINGS: Diagnostic Quality: Adequate. Stable intraventricular hemorrhage within the bilateral lateralventricles, left greater than right. There is again encephalomalacia inthe left occipital lobe with ex vacuo dilation of the occipital horn ofthe left lateral ventricle. Chronic appearing lacunar infarcts again notedwithin the deep mims nuclei bilaterally. No new intracranial hemorrhage.Stable mild to moderate lateral and third ventriculomegaly. There is no acute large cortical infarct or large mass on this noncontraststudy. There is a moderate amount of non-specific but likely ischemicwhite matter lesions. Soft Tissues: No significant soft tissue swelling is present. Skull: There are no calvarial destructive lesions or fractures. Sinuses and Mastoids: Depressed right ZMC fracture again noted withopacification of the right maxillary sinus. The mastoid air cells areclear. IMPRESSION: 1.Stable intraventricular hemorrhage. 2.Stable ventriculomegaly which may be due to central predominant brainvolume loss or normal pressure hydrocephalus. 3.Stable chronic appearing lacunar infarcts and probable old leftoccipital infarct. CRITICAL RESULT: No. COMMUNICATION: Per this written report. Drafted by Gutierrez Schaefer MD on 10/31/2024 2:35 AM Final report signed by Gutierrez Schaefer MD on 10/31/2024 2:45 AM Erica Castillo APRN IMG CT PROCEDURES Final Re sult * ECG Adult (10/30/2024 11:39 AM EDT) EKG DIAGNOSIS CLASS Abnormal MUSE ECG Ventricular Rate 85 BPM MUSE ECG Atrial Rate 85 BPM MUSE ECG OK Interval 146 ms MUSE ECG QRSD Interval 84 ms MUSE ECG QT Interval 394 ms MUSE ECG QTC Interval 468 ms MUSE ECG P [place] 82 degrees MUSE ECG R [place] 51 degrees MUSE ECG T Wave [place] 184 degrees MUSE ECG Diagnosis Poor data quality, interpretation may be adversely affected MUSE ECG Diagnosis Normal sinus rhythm MUSE ECG Diagnosis Possible Left atrial enlargement MUSE ECG Diagnosis Possible Anterior infarct , age undetermined MUSE ECG Diagnosis T wave abnormality, consider inferolateral ischemia MUSE ECG Diagnosis Abnormal ECG MUSE ECG Diagnosis Need clinical information and correlation MUSE ECG Diagnosis Confirmed by Tristan Cooper ([id number]) on 10/30/2024 12:08:55 PM MUSE ECG 10/30/2024 11:3 9 AM EDT 10/30/2024 12:08 PM EDT Erica Castillo APRN ECG ORDERABLES Final Resu lt MUSE ECG * (ABNORMAL) Troponin T, High Sensitivity, 0 Hour Plasma, Reflex to 2 Hour (10/30/2024 11:25 AM EDT) Troponin T, High Sensitivity, 0 Hour 179(H) <14 ng/L 10/30/2024 12:01 PM EDT [facility] Blood Arterial blood specimen / Unknown Arterial Puncture / Unknown 10/30/2024 11:25 AM EDT 10/30/2024 11:32 AM EDT Erica Castillo PULL OUT OPERATOR LAB BLOOD ORDERABLES Final Result Performing Organization Address City/[facility]/[place] [address] * Phosphorus (10/30/2024 11:25 AM EDT) Phosphorus, Plasma 3.1 2.5 - 4.5 mg/dL 10/30/2024 12:01 PM EDT [facility] Blood Arterial blood specimen / Unknown Arterial Puncture / Unknown 10/30/2024 11:25 AM EDT 10/30/2024 11:32 AM EDT Erica Castillo PULL OUT OPERATOR LAB BLOOD ORDERABLES Final Result Performing Organization Address [facility]/[place] [address] * (ABNORMAL) Magnesium, Plasma (10/30/2024 11:25 AM EDT) Magnesium, Plasma 1.8(L) 1.9 - 2.4 mg/dL 10/30/2024 12:01 PM EDT [facility] Blood Arterial blood specimen / Unknown Arterial Puncture / Unknown 10/30/2024 11:25 AM EDT 10/30/2024 11:32 AM EDT Erica Castillo PULL OUT OPERATOR LAB BLOOD ORDERABLES Final Result Performing Organization Address City/[facility]/[place] [address] * Ionized calcium, whole blood (10/30/2024 11:25 AM EDT) Ionized Calcium, Whole Blood 4.7 4.6 - 5.1 mg/dL LAB HEMATOLOGY METHOD 10/30/2024 11:37 AM EDT [facility] Blood Arterial blood specimen / Unknown Arterial Puncture / Unknown 10/30/2024 11:25 AM EDT 10/30/2024 11:33 AM EDT Erica Castillo APRN LAB BLOOD ORDERABLES Final Result [facility] [address] [place] [address] * (ABNORMAL) Basic Metabolic Panel, Plasma (10/30/2024 11:25 AM EDT) Glucose, Plasma 124(H) 74 - 99 mg/dL 10/30/2024 12:01 PM EDT [facility] BUN, Plasma 18 8 - 23 mg/dL 10/30/2024 12:01 PM EDT [facility] Creatinine, Plasma 1.12(H) 0.60 - 1.10 mg/dL 10/30/2024 12:01 PM EDT [facility] BUN/Creatinine Ratio 16 10/30/2024 12:01 PM EDT [facility] Sodium, Plasma 144 136 - 145 mmol/L 10/30/2024 12:01 PM EDT [facility] Potassium, Plasma 3.7 3.6 - 4.9 mmol/L 10/30/2024 12:01 PM EDT [facility] Chloride, Plasma 107 97 - 107 mmol/L 10/30/2024 12:01 PM EDT [facility] CO2, Plasma 23 22 - 29 mmol/L 10/30/2024 12:01 PM EDT [facility] Anion Gap 14 6 - 16 mmol/L 10/30/2024 12:01 PM EDT [facility] Total Calcium, Plasma 8.6(L) 8.9 - 10.2 mg/dL 10/30/2024 12:01 PM EDT [facility] eGFRcr 54.3 mL/min/1.7 3m*2 10/30/2024 12:01 PM EDT [facility] Comment:Reported eGFRcr in m L/min/1.73m2 is based the CKD-EPI 2020 equation that does not use a race coefficient. Blood Arterial blood specimen / Unknown Arterial Puncture / Unknown 10/30/2024 11:25 AM EDT 10/30/2024 11:32 AM EDT us Erica Castillo APRN LAB BLOOD ORDERABLES Final Result [facility] [address] [place] [address] * (ABNORMAL) CBC W/O Differential (10/30/2024 11:25 AM EDT) WBC Count 9.31 3.70 - 10.30 10*3/uL LAB HEMATOLOGY METHOD 10/30/2024 11:39 AM EDT [facility] RBC Count 3.82(L) 3.90 - 5.20 10*6/uL LAB HEMATOLOGY METHOD 10/30/2024 11:39 AM EDT [facility] HGB 10.4(L) 11.2 - 15.7 g/dL LAB HEMATOLOGY METHOD 10/30/2024 11:39 AM EDT [facility] HCT 33.5(L) 34.0 - 45.0 % LAB HEMATOLOGY METHOD 10/30/2024 11:39 AM EDT [facility] Platelet Count 364 155 - 369 10*3/uL LAB HEMATOLOGY METHOD 10/30/2024 11:39 AM EDT [facility] MCV 88 79 - 98 fL LAB HEMATOLOGY METHOD 10/30/2024 11:39 AM EDT [facility] MCH 27.2 26.0 - 32.0 pg LAB HEMATOLOGY METHOD 10/30/2024 11:39 AM EDT [facility] MCHC 31.0 30.7 - 35.5 g/dL LAB HEMATOLOGY METHOD 10/30/2024 11:39 AM EDT [facility] RDW 13.0 11.5 - 14.5 % LAB HEMATOLOGY METHOD 10/30/2024 11:39 AM EDT [facility] MPV 10.0 8.8 - 12.5 fL LAB HEMATOLOGY METHOD 10/30/2024 11:39 AM EDT [facility] nRBC 0.0 <=0.0 per 100 WBCs LAB HEMATOLOGY METHOD 10/30/2024 11:39 AM EDT [facility] Blood Arterial blood specimen / Unknown Arterial Puncture / Unknown 10/30/2024 11:25 AM EDT 10/30/2024 11:32 AM EDT us Erica Castillo APRN LAB BLOOD ORDERABLES Final Result [facility] [address] [place] [address] * (ABNORMAL) Blood gas panel, arterial (10/30/2024 11:25 AM EDT) pH, Arterial 7.33 7.31 - 7.42 LAB HEMATOLOGY METHOD 10/30/2024 11:36 AM EDT [facility] pCO2, Arterial 49(H) 35 - 48 mmHg LAB HEMATOLOGY METHOD 10/30/2024 11:36 AM EDT [facility] pO2, Arterial 236 >80 mmHg LAB HEMATOLOGY METHOD 10/30/2024 11:36 AM EDT [facility] SO2, Measured, Arterial 100(H) 94 - 98 % LAB HEMATOLOGY METHOD 10/30/2024 11:36 AM EDT [facility] Base Excess, Arterial -0.4 -2.0 - 3.0 mmol/L LAB HEMATOLOGY METHOD 10/30/2024 11:36 AM EDT [facility] Bicarbonate, Calculated, Arterial 26 22 - 26 mmol/L LAB HEMATOLOGY METHOD 10/30/2024 11:36 AM EDT [facility] Hematocrit, Whole Blood 31.4(L) 34.0 - 45.0 % LAB HEMATOLOGY METHOD 10/30/2024 11:36 AM EDT [facility] Sodium, Whole Blood 143 136 - 145 mmol/L LAB HEMATOLOGY METHOD 10/30/2024 11:36 AM EDT [facility] Potassium, Whole Blood 3.5(L) 3.6 - 4.9 mmol/L LAB HEMATOLOGY METHOD 10/30/2024 11:36 AM EDT [facility] Chloride, Whole Blood 107 97 - 107 mmol/L LAB HEMATOLOGY METHOD 10/30/2024 11:36 AM EDT [facility] Glucose, Whole Blood 121(H) 74 - 99 mg/dL LAB HEMATOLOGY METHOD 10/30/2024 11:36 AM EDT [facility] Ionized Calcium, Whole Blood 4.7 4.6 - 5.1 mg/dL LAB HEMATOLOGY METHOD 10/30/2024 11:36 AM EDT [facility] Lactate, Arterial, Whole Blood 2.2(H) 0.5 - 1.6 mmol/L LAB HEMATOLOGY METHOD 10/30/2024 11:36 AM EDT [facility] Blood Arterial blood specimen / Unknown Arterial Puncture / Unknown 10/30/2024 11:25 AM EDT 10/30/2024 11:33 AM EDT Erica Bernstein Jonathan REYES LAB BLOOD ORDERABLES Final Result Performing Organization Address [facility]/ZIP Co de Phone Number [facility] [address] [place] [address] * Light Blue Top (10/30/2024 11:20 AM EDT) Extra Hold for add-ons 10/30/2024 2:02 PM EDT [facility] Comment:Auto resulted. Blood Venous blood specimen / Unknown 10/30/2024 11:20 AM EDT 10/30/2024 11:35 AM EDT Katharine Savage MD LAB BLOOD ORDERABLES Final Resul t Performing Organization Address [facility] [place] [place] [address] * Transfusion Reaction, Pathologist Interpretation (10/30/2024 10:04 AM EDT) Clinical Diagnosis, Transfusion Reaction Trauma 10/31/2024 12:41 PM EDT BLOOD BANK Interpretation , Transfusion Reaction Clerical Check: No errors, no hemolysis, and negative direct antiglobulin testing. There is no laboratory evidence of acute hemolytic transfusion reaction. Classification: Allergic Reaction, Severe or Life-Threatening Case Definition: Probable Severity: Severe Imputability: Probable Interpretation: Severe/life-threa tening allergic reactions are caused by preformed antibodies in the patient reacting with plasma proteins or other allergens in the blood product, resulting in respiratory and/or cardiovascular compromise. Respiratory signs and symptoms may be laryngeal (tightness in throat, dysphagia, dysphonia, hoarseness, stridor) or pulmonary (dyspnea, cough, wheezing, bronchospasm, hypoxemia). Other symptoms include severe hypotension, hypotonia, and syncope. Rarely, IgG antibodies against IgA may be present in the IgA-deficient patient. For major allergic reactions immediately stop the transfusion and administer epinephrine. Provide other medication/suppor tive care as needed. Note: TRALI investigation not indicated. A resident was involved in the service. I attest I examined the relevant preparations for the specimens and confirmed the diagnosis or interpretation. No defined reference value 10/31/2024 12:41 PM EDT BLOOD BANK Pathologist Signature, Transfusion Reaction Reviewed by: Albin Mascorro MD 10/31/2024 12:41 PM EDT BLOOD BANK Blood Venous blood specimen / Unknown Arterial Puncture / Unknown 10/30/2024 10:04 AM EDT 10/30/2024 10:30 AM EDT Erica Castillo APRN LAB BLOOD BANK TEST ORDERA BLES Final Result Performing Organization Address City/[facility] Co de Phone Number BLOOD BANK [address] [place] [address], * (ABNORMAL) TEG Global Hemostasis with Lysis (10/30/2024 10:04 AM EDT) R, Lysis 3.3(L) 4.6 - 9.1 min 10/30/2024 11:23 AM EDT [facility] MA, Rapid, Lysis 69.0 52.0 - 70.0 mm 10/30/2024 11:23 AM EDT [facility] MA, Fibrinogen, Lysis 28.0 15.0 - 32.0 mm 10/30/2024 11:23 AM EDT [facility] LY30 0.1 0.0 - 2.6 % 10/30/2024 11:23 AM EDT [facility] Blood Arterial blood specimen / Unknown Arterial Puncture / Unknown 10/30/2024 10:04 AM EDT 10/30/2024 10:17 AM EDT Erica Castillo PULL OUT OPERATOR LAB BLOOD ORDERABLES Final Result Performing Organization Address City/[facility]/ZIP Co de Phone Number [facility] [address] [place] [address] * Transfusion Reaction Investigation (10/30/2024 10:04 AM EDT) Pre-Transfusion Hemolysis No Visible Hemolysis 10/30/2024 9:10 AM EDT BLOOD BANK Post-Transfusion Hemolysis No Visible Hemolysis 10/30/2024 9:10 AM EDT BLOOD BANK Post Specimen ABO/Rh O Positive 10/30/2024 9:10 AM EDT BLOOD BANK LUCIANO, Polyspecific Negative 9:10 AM EDT BLOOD BANK Clerical Check Clerical Check OK 10/30/2024 9:10 AM EDT BLOOD BANK RN Clerical Check 9:10 AM EDT BLOOD BANK Unit Number & Component Type See Comment 10/30/2024 9:10 AM EDT BLOOD BANK Comment:2 LEUKOREDUCED PLATE LETS GIVEN- [id number]; [id number] O [id number] Donor Unit Culture Not Indicated 10/30/2024 9:10 AM EDT BLOOD BANK Pathologist Notification See Comment 10/30/2024 9:10 AM EDT BLOOD BANK Comment:Notified Roseline washington MD at 10/30/24 1155 KB Signs and Symptoms Hypotension Other(s) No defined reference value 10/30/2024 9:10 AM EDT BLOOD BANK Pathologist Interpretation and Classification 10/30/2024 9:10 AM EDT BLOOD BANK Blood Venous blood specimen / Unknown Arterial Puncture / Unknown 10/30/2024 10:04 AM EDT 10/30/2024 10:30 AM EDT Erica Castillo APRN LAB BLOOD BANK TEST ORDERA BLES Final Result Performing Organization Address [facility]/ZIP Co de Phone Number BLOOD BANK [address] [place] [address], * [place] CRITICAL CARE, ADDL 30 MIN, [place] CRITICAL CARE, ADDL 30 MIN (10/30/2024 9:49 AM EDT) Narrative Isabelle Soto MD - 10/30/2024 9:49 AM EDT Isabelle Soto MD 11/09/2024 7:49 PM Critical Care Performed by: Isabelle Soto MD Authorized by: Isabelle Soto MD Critical care provider statement: Critical care time (minutes): 65 Critical care time was exclusive of: Separately billable procedures and treating other patients and teaching time Critical care was time spent personally by me on the following activities: Development of treatment plan with patient or surrogate, discussions with consultants, evaluation of patient's response to treatment, examination of patient, ordering and performing treatments and interventions, ordering and review of laboratory studies, ordering and review of radiographic studies and ventilator management I assumed subsequent critical care for this patient from a provider in my division, on the same day: yes Comments: I attest to being involved in more than half the total time for 65 minutes in patient care. Repeat head CT this morning concerning for worsening intraventricular hemorrhage. Discussed with neurosurgery and transfused platelets due to home use of antiplatelet medications. Shortly after transfusion, patient developed diffuse rash with worsening opacities on CXR. Concern for possible transfusion reaction, suspected TRALI. Repeat physical exams without increasing ventilator requirements and significant improvement of rash after administration of benadryl. Medication list reviewed, no other new medication identified as a suspected cause for reaction. Ongoing supportive care with ventilator management, nebulized treatments, and avoidance of platelet transfusion. Added tylenol for multimodal pain control. Plan for placement of dobhoff tube today and initiation of tube feeds, advance to goal as tolerated. Q1 hour neuro exams. Isabelle Soto MD Result [facility] Isabelle Soto MD IN CLINIC/BEDSIDE ORDERAB LES Final Result * Transfuse platelets (10/30/2024 9:14 AM EDT) Erica Castillo APRN BLOOD TRANSFUSION ORDERABL ES Final Result * Transfuse platelets: 2 Units (10/30/2024 9:14 AM EDT) Erica Castillo APRN BLOOD TRANSFUSION ORDERABL ES Final Result * Transfuse platelets (10/30/2024 9:13 AM EDT) Erica Castillo APRN BLOOD TRANSFUSION ORDERABL ES Final Result * OK INSERT CATH,ART,PERCUT,SHORTTERM, HC INSERT CATH,ART,PERCUT,SHORTTERM (10/30/2024 9:11 AM EDT) Narrative Isabelle Soto MD - 10/30/2024 9:11 AM EDT Isabelle Soto MD 11/02/2024 10:22 AM Arterial line Performed by: Erica Castillo APRN Authorized by: Erica Castillo APRN Consent: Consent obtained: Written Consent given by: son. Risks discussed: Bleeding and infection [place] protocol: Imaging studies available: yes Site/side marked: yes Patient identity confirmed: Arm band Indications: Indications: hemodynamic monitoring and multiple ABGs Pre-procedure details: Skin preparation: Chlorhexidine Sedation: Sedation type: None Procedure details: Location: R radial Nathen's test performed: yes Needle gauge: 20 G Placement technique: Seldinger and ultrasound guided Number of attempts: 1 Transducer: waveform confirmed Post-procedure details: Post-procedure: Sterile dressing applied CMS: Normal Procedure completion: Tolerated well, no immediate complications Erica Castillo APRN IV THERAPY ORDERABLES Evelyn richardson Result * (ABNORMAL) POCT arterial blood gas gem (10/30/2024 8:49 AM EDT) pH, Arterial 7.39 7.31 - 7.42 10/30/2024 8:50 AM EDT [facility] pCO2, Arterial 40 35 - 48 mm Hg 10/30/2024 8:50 AM EDT [facility] pO2, Arterial 70(L) >80 mm Hg 10/30/2024 8:50 AM EDT [facility] SO2, Arterial 96 94 - 98 % 10/30/2024 8:50 AM EDT [facility] FIO2 40.0 % 10/30/2024 8:50 AM EDT [facility] Base Excess, Arterial -0.7 -2 - 3 mmol/L 10/30/2024 8:50 AM EDT [facility] HCO3, Arterial 24.2 22 - 26 mmol/L 10/30/2024 8:50 AM EDT [facility] Total Hemoglobin, Arterial, Whole Blood 9.4(L) 11.2 - 15.7 g/dL 10/30/2024 8:50 AM EDT [facility] Hematocrit, Arterial 28.0(L) 34.0 - 45.0 % 10/30/2024 8:50 AM EDT [facility] Sodium, Arterial 141 136 - 145 mmol/L 10/30/2024 8:50 AM EDT [facility] Potassium, Arterial 3.6 3.6 - 4.9 mmol/L 10/30/2024 8:50 AM EDT [facility] Chloride, Whole Blood 107 97 - 107 mmol/L 10/30/2024 8:50 AM EDT [facility] Glucose, Arterial 128(H) 74 - 99 mg/dL 10/30/2024 8:50 AM EDT [facility] Ionized Calcium, Arterial 4.6 4.6 - 5.1 mg/dL 10/30/2024 8:50 AM EDT [facility] Lactate, Arterial 2.2(H) 0.5 - 1.6 mmol/L 10/30/2024 8:50 AM EDT [facility] Body Temperature 36.2 Celsius 10/30/2024 8:50 AM EDT [facility] pH, Temp Corrected, Arterial 7.40 7.31 - 7.42 10/30/2024 8:50 AM EDT [facility] pCO2, Temp Corrected, Arterial 39 35 - 48 mm Hg 10/30/2024 8:50 AM EDT [facility] pO2, Temp Corrected, Arterial 66(L) >80 mm Hg 10/30/2024 8:50 AM EDT [facility] Corset Fitter ID Aria Pereira 10/30/2024 8:50 AM EDT [facility] Blood, Arterial Whole blood specimen / Unknown 10/30/2024 8:49 AM EDT 10/30/2024 8:50 AM EDT us Katharine Savage MD LAB POINT OF CARE TE ST DOCKED DEVICE UNSOLICITED RESULTS Final Result [facility] [address] [place] [address] * Prepare Leukocyte Reduced Platelets: 2 Units (10/30/2024 7:15 AM EDT) [facility] Signature Product Code [id number] BLOO D BANK Dispense Status Transfused BLOOD BANK Blood Expiration Date [id number] BLOOD BANK Unit Number [id number] CH B LOOD BANK Product Blood Type 7300 BLOOD BANK Blood Type B+ BLOOD BANK Product Code [id number] CH BLOO D BANK Dispense Status Transfused BLOOD BANK Blood Expiration Date [id number] BLOOD BANK Unit Number [id number] CH B LOOD BANK Product Blood Type 6200 BLOOD BANK Blood Type A+ BLOOD BANK Blood Venous blood specimen / Unknown Erica Garciaers PULL OUT OPERATOR BLOOD BANK PRODUCT ORDERAB LES Final Result BLO[facility] BANK [address] * (ABNORMAL) Lactate, venous (10/30/2024 6:45 AM EDT) Lactate, Venous, Whole Blood 2.8(H) 0.5 - 2.2 mmol/L LAB HEMATOLOGY METHOD 10/30/2024 6:58 AM EDT [facility] Blood Venous blood specimen / Unknown Venipuncture / Unknown 10/30/2024 6:45 AM EDT 10/30/2024 6:57 AM EDT Chirag Campoverdeel PA LAB BLOOD ORDERABLES Final Res ult Performing Organization Address City/[facility]/ZIP Co de Phone Number [facility] [address] [place] [address] * Phosphorus (10/30/2024 6:45 AM EDT) Phosphorus, Plasma 3.2 2.5 - 4.5 mg/dL 10/30/2024 7:24 AM EDT [facility] Blood Venous blood specimen / Unknown Venipuncture / Unknown 10/30/2024 6:45 AM EDT 10/30/2024 6:51 AM EDT Chirag Campoverdeel PA LAB BLOOD ORDERABLES Final Res ult [facility] [address] [place] [address] * (ABNORMAL) Magnesium (10/30/2024 6:45 AM EDT) Magnesium, Plasma 1.8(L) 1.9 - 2.4 mg/dL 10/30/2024 7:24 AM EDT [facility] Blood Venous blood specimen / Unknown Venipuncture / Unknown 10/30/2024 6:45 AM EDT 10/30/2024 6:51 AM EDT us Chirag FORBES LAB BLOOD ORDERABLES Final Res ult [facility] [address] [place] [address] * (ABNORMAL) Basic Metabolic Panel, Plasma (10/30/2024 6:45 AM EDT) Glucose, Plasma 119(H) 74 - 99 mg/dL 10/30/2024 7:24 AM EDT [facility] BUN, Plasma 15 8 - 23 mg/dL 10/30/2024 7:24 AM EDT [facility] Creatinine, Plasma 1.00 0.60 - 1.10 mg/dL 10/30/2024 7:24 AM EDT [facility] BUN/Creatinine Ratio 15 10/30/2024 7:24 AM EDT [facility] Sodium, Plasma 139 136 - 145 mmol/L 10/30/2024 7:24 AM EDT [facility] Potassium, Plasma 4.5 3.6 - 4.9 mmol/L 10/30/2024 7:24 AM EDT [facility] Comment:Hemolyzed, result ma y be falsely increased. Chloride, Plasma 105 97 - 107 mmol/L 10/30/2024 7:24 AM EDT [facility] CO2, Plasma 23 22 - 29 mmol/L 10/30/2024 7:24 AM EDT [facility] Anion Gap 11 6 - 16 mmol/L 10/30/2024 7:24 AM EDT [facility] Total Calcium, Plasma 8.8(L) 8.9 - 10.2 mg/dL 10/30/2024 7:24 AM EDT [facility] eGFRcr 62.3 mL/min/1.7 3m*2 10/30/2024 7:24 AM EDT [facility] Comment:Reported eGFRcr in m L/min/1.73m2 is based the CKD-EPI 2020 equation that does not use a race coefficient. Blood Venous blood specimen / Unknown Venipuncture / Unknown 10/30/2024 6:45 AM EDT 10/30/2024 6:51 AM EDT us Chirag FORBES LAB BLOOD ORDERABLES Final Res ult [facility] [address] [place] [address] * (ABNORMAL) CBC W/O Differential (10/30/2024 6:45 AM EDT) WBC Count 12.35(H) 3.70 - 10.30 10*3/uL LAB HEMATOLOGY METHOD 10/30/2024 7:21 AM EDT [facility] RBC Count 3.73(L) 3.90 - 5.20 10*6/uL LAB HEMATOLOGY METHOD 10/30/2024 7:21 AM EDT [facility] HGB 10.3(L) 11.2 - 15.7 g/dL LAB HEMATOLOGY METHOD 10/30/2024 7:21 AM EDT [facility] HCT 32.9(L) 34.0 - 45.0 % LAB HEMATOLOGY METHOD 10/30/2024 7:21 AM EDT [facility] Platelet Count 218 155 - 369 10*3/uL LAB HEMATOLOGY METHOD 10/30/2024 7:21 AM EDT [facility] MCV 88 79 - 98 fL LAB HEMATOLOGY METHOD 10/30/2024 7:21 AM EDT [facility] MCH 27.6 26.0 - 32.0 pg LAB HEMATOLOGY METHOD 10/30/2024 7:21 AM EDT [facility] MCHC 31.3 30.7 - 35.5 g/dL LAB HEMATOLOGY METHOD 10/30/2024 7:21 AM EDT [facility] RDW 12.9 11.5 - 14.5 % LAB HEMATOLOGY METHOD 10/30/2024 7:21 AM EDT [facility] MPV 10.6 8.8 - 12.5 fL LAB HEMATOLOGY METHOD 10/30/2024 7:21 AM EDT [facility] nRBC 0.0 <=0.0 per 100 WBCs LAB HEMATOLOGY METHOD 10/30/2024 7:21 AM EDT [facility] Blood Venous blood specimen / Unknown Venipuncture / Unknown 10/30/2024 6:45 AM EDT 10/30/2024 6:51 AM EDT us Chirag FORBES LAB BLOOD ORDERABLES Final Res ult [facility] [address] [place] [address] * CT Head wo IV Contrast (10/30/2024 5:39 AM EDT) Anatomical Region Laterality Modality Head Computed Tomogra phy Impressions 10/30/2024 7:04 PM EDT 1. Stable intraventricular hemorrhage which is similar to the recent CT head dated 10/30/2024 but increased compared to prior CT head dated 10/29/2024. Confluent periventricular hypodensity could represent nonspecific white matter changes due to chronic microvascular ischemia versus transependymal edema. 2. Encephalomalacic area in the left occipital lobe likely represent sequelae of remote ischemic injury. Lacunar infarcts in bilateral basal ganglia. 3. No calvarial fracture is seen. Fractures of the right orbital benites and the right maxillary sinus with hemosinus. Further evaluation with a CT face is recommended. CRITICAL RESULT: No. COMMUNICATION: Per this written report. Drafted by Mariia Domínguez MD on 10/30/2024 6:51 PM Final report signed by Mariia Domínguez MD on 10/30/2024 7:04 PM Narrative 10/30/2024 7:04 PM EDT CLINICAL INDICATION: repeat CTH TECHNIQUE: Spiral axial CT images of the head were obtained without contrast administration. Total DLP (Dose-Length Product): 802.35 mGy.cm. Please note: The reported value represents the total of one or more individual components during the CT acquisition on this date and at this time, and as such, the same value may appear in more than one CT report depending on the interpreting/reporting physicians. COMPARISON: CT head dated 10/29/[address] head dated 10/30/2024. FINDINGS: Diagnostic Quality: Adequate. There is redemonstration of intraventricular hemorrhage predominantly in the left lateral ventricle with prominence of the ventricular system and periventricular hypodensity which could represent transependymal edema versus nonspecific periventricular white matter changes. There is minimal hyperdensity along the tentorial leaves possibly representing small amount of subdural hemorrhage. These findings are similar to the recent CT head dated 10/30/2024; the intraventricular blood appears slightly increased compared to prior CT head dated 10/29/2024. There is a background of mild diffuse parenchymal volume loss, likely age- related, with patchy areas of hypoattenuation in the white matter of cerebral hemispheres which could represent sequelae of chronic microvascular ischemia. There are lacunar infarcts in bilateral basal ganglia (left greater than right). There is an encephalomalacic area in the left occipital region, likely sequelae of remote ischemic injury. The mims and white matter differentiation is maintained and is no evidence of acute ischemic injury. No significant mass effect or midline shift is seen. There is ex vacuo prominence of the sulcal spaces and the ventricular system and asymmetric prominence of the atrium and occipital horn of the left lateral ventricle due to adjacent encephalomalacic area. The basal cisterns are within normal limits. No abnormal extra-axial fluid collection is seen. Soft Tissues: No significant soft tissue swelling is present. Skull: There are no calvarial destructive lesions or fractures. Sinuses and Mastoids: There are displaced fractures of the lateral wall of the right orbit, benites of the right maxillary sinus with opacification of the sinus suggestive of hemosinus. There is possible fracture of the medial wall of the right orbit (series 4, image 15) with partial opacification of the adjacent anterior ethmoid air cells. The rest of the paranasal sinuses are clear. The mastoid air cells are clear. Procedure Note Mariia Domínguez MD - 10/30/2024 CLINICAL INDICATION: repeat CTH TECHNIQUE: Spiral axial CT images of the head were obtained without contrastadministration. Total DLP (Dose-Length Product): 802.35 mGy.cm. Please note: The reportedvalue represents the total of one or more individual components during theCT acquisition on this date and at this time, and as such, the same valuemay appear in more than one CT report depending on theinterpreting/reporting physicians. COMPARISON: CT head dated 10/29/[address] head dated 10/30/2024. FINDINGS: Diagnostic Quality: Adequate. There is redemonstration of intraventricular hemorrhage predominantly inthe left lateral ventricle with prominence of the ventricular system andperiventricular hypodensity which could represent transependymal edemaversus nonspecific periventricular white matter changes. There is minimalhyperdensity along the tentorial leaves possibly representing small amountof subdural hemorrhage. These findings are similar to the recent CT headdated 10/30/2024; the intraventricular blood appears slightly increasedcompared to prior CT head dated 10/29/2024. There is a background of mild diffuse parenchymal volume loss, likelyage- related, with patchy areas of hypoattenuation in the white matter ofcerebral hemispheres which could represent sequelae of chronicmicrovascular ischemia. There are lacunar infarcts in bilateral basalganglia (left greater than right). There is an encephalomalacic area inthe left occipital region, likely sequelae of remote ischemic injury. The mims and white matter differentiation is maintained and is no evidenceof acute ischemic injury. No significant mass effect or midline shift isseen. There is ex vacuo prominence of the sulcal spaces and the ventricularsystem and asymmetric prominence of the atrium and occipital horn of theleft lateral ventricle due to adjacent encephalomalacic area. The basalcisterns are within normal limits. No abnormal extra-axial fluidcollection is seen. Soft Tissues: No significant soft tissue swelling is present. Skull: There are no calvarial destructive lesions or fractures. Sinuses and Mastoids: There are displaced fractures of the lateral wall ofthe right orbit, benites of the right maxillary sinus with opacification ofthe sinus suggestive of hemosinus. There is possible fracture of themedial wall of the right orbit (series 4, image 15) with partialopacification of the adjacent anterior ethmoid air cells. The rest of theparanasal sinuses are clear. The mastoid air cells are clear. IMPRESSION: 1. Stable intraventricular hemorrhage which is similar to the recent CThead dated 10/30/2024 but increased compared to prior CT head dated10/29/2024. Confluent periventricular hypodensity could representnonspecific white matter changes due to chronic microvascular ischemiaversus transependymal edema. 2. Encephalomalacic area in the left occipital lobe likely representsequelae of remote ischemic injury. Lacunar infarcts in bilateral basalganglia. 3. No calvarial fracture is seen. Fractures of the right orbital benites andthe right maxillary sinus with hemosinus. Further evaluation with a CTface is recommended. CRITICAL RESULT: No. COMMUNICATION: Per this written report. Drafted by Mariia Domínguez MD on 10/30/2024 6:51 PM Final report signed by Mariia Domínguez MD on 10/30/2024 7:04 PM Katharine Savage MD IMG CT PROCEDURES Final Result * Veronica auris Surveillance by PCR (10/30/2024 4:47 AM EDT) Veronica auris PCR Result Not Detected Not Detected 10/31/2024 4:57 AM EDT [facility] Swab (Axilla and Groin) Non-blood Collection / Unknown 10/30/2024 4:47 AM EDT 10/30/2024 4:59 AM EDT Narrative [facility] - 10/31/2024 4:57 AM EDT This PCR assay was developed and its performance characteristics determined by [facility] as appropriate for clinical purposes. This assay has not been cleared or approved by the FDA, but is performed in a CLIA regulated laboratory that is qualified to perform high-complexity testing. Chirag Zambrano PA LAB MICROBIOLOGY - GENERAL ORD ERABLES Final Result [facility] [address] [place] [address] * Multi Drug Resistance Test (10/30/2024 4:47 AM EDT) Culture No growth at day 1 10/31/2024 6:37 AM EDT [facility] Swab (Nares and Marley Rectal) Non-blood Collection / Unknown 10/30/2024 4:47 AM EDT 10/30/2024 4:58 AM EDT Narrative [facility] - 10/31/2024 6:37 AM EDT This test was developed and its performance characteristics determined by the [facility]. Although the media is FDA-approved, it is not FDA-approved for all specimen types submitted. The FDA has determined that such clearance or approval is not necessary. This test is used for surveillance purposes. It should not be regarded as investigational or for research. The [facility] is certified under the Clinical Laboratory Improvement Amendments of 1988 (CLIA-88) as qualified to perform high complexity clinical laboratory testing. Chirag FORBES LAB MICROBIOLOGY - GENERAL ORD ERABLES Final Result [facility] [address] [place] [address] * (ABNORMAL) POCT glucose meter (10/30/2024 3:18 AM EDT) POCT Glucose 125(H) 74 - 99 mg/dL 10/30/2024 3:20 AM EDT [facility] Comment:Accuracy of a glucos e result obtained from a capillary whole blood specimen relies upon adequate, non-compromised capillary blood flow. If the capillary glucose result is not consistent with the patient's clinical signs and symptoms, glucose testing should be repeated with either an arterial or venous sample on the glucometer or sent to the main labortory for testing. Comment 10/30/2024 3:20 AM EDT [facility] Corset Fitter ID Doug Loya 3:20 AM EDT [facility] Device ID [id number] 10/30/2024 3:20 AM EDT [facility] Specimen Type POC Capillary 10/30/2024 3:20 AM EDT [facility] Blood Capillary blood specimen / Unknown 10/30/2024 3:18 AM EDT 10/30/2024 3:20 AM EDT us Generic Provider Poct LAB POINT OF CARE TEST DOCKED DEVICE UNSOLICITED RESULTS Final Result [facility] [address] [place] [address] * Type and Screen (10/30/2024 2:43 AM EDT) ABO/Rh O Positive 10/30/2024 4:18 AM EDT [facility] Comment:DOWNTIME RESULT ENTR Y : [id number] Antibody Screen Negative 10/30/2024 4:18 AM EDT [facility] Comment:DOWNTIME RESULT ENTR Y: [id number] Specimen Expiration 11/02/2024 23:59 10/30/2024 4:18 AM EDT [facility] Blood Venous blood specimen / Unknown Venipuncture / Unknown 10/30/2024 2:43 AM EDT 10/30/2024 4:35 AM EDT Katharine Savage MD LAB BLOOD BANK TEST ORDERABLES E dited Result - Final Performing Organization Address City/[facility]/ZIP Co de Phone Number BLOOD BANK [address] [place] [address], * Gold Top (10/30/2024 2:40 AM EDT) Extra Hold for add-ons 10/30/2024 6:02 AM EDT [facility] Comment:Auto resulted. Blood Venous blood specimen / Unknown 10/30/2024 2:40 AM EDT 10/30/2024 3:32 AM EDT Iker Reagan MD LAB BLOOD ORDERABLES Final Result [facility] [address] [place] [address] * Gold Top (10/30/2024 2:40 AM EDT) Extra Hold for add-ons 10/30/2024 6:02 AM EDT [facility] Comment:Auto resulted. Blood Venous blood specimen / Unknown 10/30/2024 2:40 AM EDT 10/30/2024 3:32 AM EDT Iker Reagan MD LAB BLOOD ORDERABLES Final Result Performing Organization Address [facility] Co de Phone Number [facility] [address] [place] [address] * Alcohol Profile Plasma (10/30/2024 2:40 AM EDT) Methanol Plasma <10 <10 mg/dL 7:04 AM EDT [facility] Acetone Plasma <10 <10 mg/dL 10/30/2024 7:04 AM EDT [facility] Isopropanol Plasma <10 <10 mg/dL 10/30/2024 7:04 AM EDT [facility] Ethanol Plasma <10 <10 mg/dL 10/30/2024 7:04 AM EDT [facility] Blood Venous blood specimen / Unknown Venipuncture / Unknown 10/30/2024 2:40 AM EDT 10/30/2024 3:22 AM EDT Narrative [facility] - 10/30/2024 7:04 AM EDT Test performed by Gas Chromatography at the [facility]. This test was developed and its performance characteristics determined by [facility]. It has not been cleared or approved by the FDA.The laboratory is regulated under CLIA as qualified to perform high-complexity testing. This test is used for clinical purposes only. Katharine Savage MD LAB BLOOD ORDERABLES Final Resul t Performing Organization Address [facility] Co de Phone Number [facility] [address] [place] [address] * Protime-INR (10/30/2024 2:40 AM EDT) Prothrombin Time 10/30/2024 4:59 AM EDT [facility] Comment: aPTT <20. Notified Baron Sofia of result correction. Corrected result: Previously reported as 13.9 sec on 10/30/2024 at 0336 EDT. INR LAB COAGULATION METHOD 10/30/2024 4:59 AM EDT [facility] Comment: aPTT <20. Notified Baron Sofia of result correction. Corrected result: Previously reported as 1.1 on 10/30/2024 at 0336 EDT. Blood Venous blood specimen / Unknown Venipuncture / Unknown 10/30/2024 2:40 AM EDT 10/30/2024 3:12 AM EDT Narrative [facility] - 10/30/2024 4:59 AM EDT aPTT <20. Notified Baron Black of result correction. us Katharine Savage MD LAB BLOOD ORDERABLES Edited Resu lt - Final [facility] [address] [place] [address] * (ABNORMAL) CBC W/O Differential (10/30/2024 2:40 AM EDT) WBC Count 18.78(H) 3.70 - 10.30 10*3/uL LAB HEMATOLOGY METHOD 10/30/2024 3:15 AM EDT [facility] [facility] RBC Count 4.41 3.90 - 5.20 10*6/uL LAB HEMATOLOGY METHOD 10/30/2024 3:15 AM EDT [facility] HGB 12.0 11.2 - 15.7 g/dL LAB HEMATOLOGY METHOD 10/30/2024 3:15 AM EDT [facility] HCT 38.2 34.0 - 45.0 % LAB HEMATOLOGY METHOD 10/30/2024 3:15 AM EDT [facility] Platelet Count 278 155 - 369 10*3/uL LAB HEMATOLOGY METHOD 10/30/2024 3:15 AM EDT [facility] MCV 87 79 - 98 fL LAB HEMATOLOGY METHOD 10/30/2024 3:15 AM EDT [facility] MCH 27.2 26.0 - 32.0 pg LAB HEMATOLOGY METHOD 10/30/2024 3:15 AM EDT [facility] MCHC 31.4 30.7 - 35.5 g/dL LAB HEMATOLOGY METHOD 10/30/2024 3:15 AM EDT [facility] RDW 12.6 11.5 - 14.5 % LAB HEMATOLOGY METHOD 10/30/2024 3:15 AM EDT [facility] MPV 10.1 8.8 - 12.5 fL LAB HEMATOLOGY METHOD 10/30/2024 3:15 AM EDT [facility] nRBC 0.0 <=0.0 per 100 WBCs LAB HEMATOLOGY METHOD 10/30/2024 3:15 AM EDT [facility] Blood Venous blood specimen / Unknown Venipuncture / Unknown 10/30/2024 2:40 AM EDT 10/30/2024 3:12 AM EDT us Katharine Savage MD LAB BLOOD ORDERABLES Final Resul t [facility] [address] [place] [address] * (ABNORMAL) Blood gas, venous (10/30/2024 2:40 AM EDT) pH, Venous 7.31(L) 7.32 - 7.43 LAB HEMATOLOGY METHOD 10/30/2024 3:18 AM EDT [facility] pCO2, Venous 53(H) 37 - 52 mmHg LAB HEMATOLOGY METHOD 10/30/2024 3:18 AM EDT [facility] pO2, Venous 33 25 - 40 mmHg LAB HEMATOLOGY METHOD 10/30/2024 3:18 AM EDT [facility] SO2, Measured, Venous 51(L) 65 - 80 % LAB HEMATOLOGY METHOD 10/30/2024 3:18 AM EDT [facility] Base Excess, Venous -0.4 -2.0 - 3.0 mmol/L LAB HEMATOLOGY METHOD 10/30/2024 3:18 AM EDT [facility] Bicarbonate, Calculated, Venous 27(H) 22 - 26 mmol/L LAB HEMATOLOGY METHOD 10/30/2024 3:18 AM EDT [facility] Hematocrit, Whole Blood 37.6 34.0 - 45.0 % LAB HEMATOLOGY METHOD 10/30/2024 3:18 AM EDT [facility] Sodium, Whole Blood 140 136 - 145 mmol/L LAB HEMATOLOGY METHOD 10/30/2024 3:18 AM EDT [facility] Potassium, Whole Blood 4.2 3.6 - 4.9 mmol/L LAB HEMATOLOGY METHOD 10/30/2024 3:18 AM EDT [facility] Chloride, Whole Blood 103 97 - 107 mmol/L LAB HEMATOLOGY METHOD 10/30/2024 3:18 AM EDT [facility] Glucose, Whole Blood 125(H) 74 - 99 mg/dL LAB HEMATOLOGY METHOD 10/30/2024 3:18 AM EDT [facility] Lactate, Venous, Whole Blood 3.3(H) 0.5 - 2.2 mmol/L LAB HEMATOLOGY METHOD 10/30/2024 3:18 AM EDT [facility] Ionized Calcium, Whole Blood 4.7 4.6 - 5.1 mg/dL LAB HEMATOLOGY METHOD 10/30/2024 3:18 AM EDT [facility] Blood Venous blood specimen / Unknown Venipuncture / Unknown 10/30/2024 2:40 AM EDT 10/30/2024 3:11 AM EDT us Katharine Savage MD LAB BLOOD ORDERABLES Final Resul t [facility] [address] [place] [address] * XR Pelvis 1 or 2 Views (10/30/2024 2:40 AM EDT) Anatomical Region Laterality Modality Body, Pelvis Digital Radiogra phy Impressions 10/30/2024 3:19 AM EDT Tip of the ET tube is 4 cm from the emily. Cardiomediastinal silhouette within normal limits. Left lung base opacity could be atelectasis or airspace disease. No pneumothorax. Sacrum is obscured by contrast. Otherwise no pelvic fracture CRITICAL RESULT: No. COMMUNICATION: Per this written report. Drafted by Leandro Escobar MD on 10/30/2024 3:17 AM Final report signed by Leandro Escobar MD on 10/30/2024 3:19 AM Narrative 10/30/2024 3:19 AM EDT CLINICAL INDICATION: trauma TECHNIQUE: XR PELVIS 1 OR 2 VIEWS, XR CHEST 1 VIEW COMPARISON: None. FINDINGS: Tip of the ET tube is 4 cm from the emily. Cardiomediastinal silhouette within normal limits. Left lung base opacity could be atelectasis or airspace disease. No pneumothorax. Sacrum is obscured by contrast. Otherwise no pelvic fracture. Procedure Note Leandro Escobar MD - 10/30/2024 CLINICAL INDICATION: trauma TECHNIQUE: XR PELVIS 1 OR 2 VIEWS, XR CHEST 1 VIEW COMPARISON: None. FINDINGS: Tip of the ET tube is 4 cm from the emily. Cardiomediastinal silhouettewithin normal limits. Left lung base opacity could be atelectasis orairspace disease. No pneumothorax. Sacrum is obscured by contrast.Otherwise no pelvic fracture. IMPRESSION: Tip of the ET tube is 4 cm from the emily. Cardiomediastinal silhouettewithin normal limits. Left lung base opacity could be atelectasis orairspace disease. No pneumothorax. Sacrum is obscured by contrast.Otherwise no pelvic fracture CRITICAL RESULT: No. COMMUNICATION: Per this written report. Drafted by Leandro Escobar MD on 10/30/2024 3:17 AM Final report signed by Leandro Escobar MD on 10/30/2024 3:19 AM Iker Reagan MD IMG XR PROCEDURES Fin al Result * XR Chest 1 View (10/30/2024 2:40 AM EDT) Anatomical Region Laterality Modality Chest Digital Radiogra phy Impressions 10/30/2024 3:19 AM EDT Tip of the ET tube is 4 cm from the emily. Cardiomediastinal silhouette within normal limits. Left lung base opacity could be atelectasis or airspace disease. No pneumothorax. Sacrum is obscured by contrast. Otherwise no pelvic fracture CRITICAL RESULT: No. COMMUNICATION: Per this written report. Drafted by Leandro Escobar MD on 10/30/2024 3:17 AM Final report signed by Leandro Escobar MD on 10/30/2024 3:19 AM Narrative 10/30/2024 3:19 AM EDT CLINICAL INDICATION: trauma TECHNIQUE: XR PELVIS 1 OR 2 VIEWS, XR CHEST 1 VIEW COMPARISON: None. FINDINGS: Tip of the ET tube is 4 cm from the emily. Cardiomediastinal silhouette within normal limits. Left lung base opacity could be atelectasis or airspace disease. No pneumothorax. Sacrum is obscured by contrast. Otherwise no pelvic fracture. Procedure Note Leandro Escobar MD - 10/30/2024 CLINICAL INDICATION: trauma TECHNIQUE: XR PELVIS 1 OR 2 VIEWS, XR CHEST 1 VIEW COMPARISON: None. FINDINGS: Tip of the ET tube is 4 cm from the emily. Cardiomediastinal silhouettewithin normal limits. Left lung base opacity could be atelectasis orairspace disease. No pneumothorax. Sacrum is obscured by contrast.Otherwise no pelvic fracture. IMPRESSION: Tip of the ET tube is 4 cm from the emily. Cardiomediastinal silhouettewithin normal limits. Left lung base opacity could be atelectasis orairspace disease. No pneumothorax. Sacrum is obscured by contrast.Otherwise no pelvic fracture CRITICAL RESULT: No. COMMUNICATION: Per this written report. Drafted by Leandro Escobar MD on 10/30/2024 3:17 AM Final report signed by Leandro Escobar MD on 10/30/2024 3:19 AM Iker Reagan MD IMG XR PROCEDURES Fin al Result documented in this encounter Visit Diagnoses Diagnosis Fall- Primary Unspecified fall Intraventricular hemorrhage (CMS/HCC) Fall, initial encounter Electrolyte abnormality Electrolyte and fluid disorders not elsewhere classified ABLA (acute blood loss anemia) Closed fracture of right zygomatic arch, initial encounter (CMS/HCC) Hyperlipidemia, unspecified hyperlipidemia type Traumatic brain injury, with unknown loss of consciousness status, initial encounter Acute respiratory failure with hypoxia Hypertension, unspecified type Injury of globe of eye, right, initial encounter Debility Unspecified debility Closed fracture of zygomatic arch, unspecified laterality, initial encounter Retrobulbar hematoma Brain bleed Intracerebral hemorrhage Zygomatic arch fracture (CMS/HCC) Malar and maxillary bones, closed fracture Injury of globe of eye, right, initial encounter TBI (traumatic brain injury) Intracranial injury of other and unspecified nature, without mention of open intracranial wound, unspecified state of consciousness Carotid stenosis Occlusion and stenosis of carotid artery without mention of cerebral infarction ABLA (acute blood loss anemia) Hyperglycemia Other abnormal glucose Acute respiratory failure with hypoxia Lactic acidosis Acidosis Electrolyte abnormality Electrolyte and fluid disorders not elsewhere classified MELISSA (acute kidney injury) Hypothyroidism Unspecified hypothyroidism Hypertension Unspecified essential hypertension Hyperlipidemia Other and unspecified hyperlipidemia CVA (cerebral vascular accident) ([facility]) Unspecified cerebral artery occlusion with cerebral infarction Overweight (BMI 25.0-29.9) Overweight Debility Unspecified debility Fracture of right orbital floor Malnutrition (CMS/HCC) Unspecified protein-calorie malnutrition MRSA (methicillin resistant staph aureus) culture positive Carrier or suspected carrier of Methicillin resistant Staphylococcus aureus Urinary retention Unspecified retention of urine documented in this encounter Admitting Diagnoses Diagnosis Intraventricular hemorrhage ([facility]) documented in this encounter Administered Medications Inactive Administered Medications - up to 3 most recent administrations Medication Order MAR Action Action Date Dose Rate Site acetaminophen (Tylenol) tablet 1,000 mg 1,000 mg, Oral, Every 6 hours scheduled, First dose on Thu10/30/24 at 1200, Until Discontinued, Routine Given 10/30/2024 11:23 AM EDT 1,000 mg acetaminophen (Tylenol) tablet 1,000 mg 1,000 mg, Nasogastric, Every 6 hours scheduled, First dose (after last modification) on Thu10/30/24 at 1800, Until Discontinued, Routine Given 11/03/2024 5:23 AM EDT 1,000 mg Given 11/03/2024 12:52 AM EDT 1,000 mg Given 11/02/2024 6:05 PM EDT 1,000 mg acetaminophen (Tylenol) tablet 1,000 mg 1,000 mg, Oral, Every 6 hours scheduled, First dose (after last modification) on [facility] 11/03/24 at 1230, Until Discontinued, Routine Given 11/08/2024 12:07 PM EDT 1,000 mg Given 11/07/2024 10:37 PM EDT 1,000 mg Given 11/07/2024 12:21 PM EDT 1,000 mg acetaminophen (Tylenol) tablet 500 mg 500 mg, Oral, 4 times daily, First dose (after last modification) on Thu11/08/24 at 1800, Until Discontinued, Routine Given 11/12/2024 2:02 PM EDT 500 mg Given 11/12/2024 9:27 AM EDT 500 mg Given 11/11/2024 9:05 PM EDT 500 mg amLODIPine (Norvasc) tablet 2.5 mg 2.5 mg, Oral, Daily, First dose on Thu11/01/24 at 1845, Until Discontinued, Routine, Recovery(Phase II-Outpatient)/On Unit(Inpatient) Given 11/04/2024 8:27 AM EDT 2.5 mg Given 11/03/2024 8:47 AM EDT 2.5 mg Given 11/02/2024 8:04 AM EDT 2.5 mg amLODIPine (Norvasc) tablet 5 mg 5 mg, Oral, Daily, First dose (after last modification) on 11/05/24 at 0900, Until Discontinued, Routine, Recovery(Phase II-Outpatient)/On Unit(Inpatient) Given 11/12/2024 9:27 AM EDT 5 mg Given 11/11/2024 8:43 AM EDT 5 mg Given 11/10/2024 8:39 AM EDT 5 mg amoxicillin-clavulanate (Augmentin) 875-125 MG per tablet 1 tablet 1 tablet (875 mg), Oral, Every 12 hours, 16 doses, First dose on Thu11/04/24 at 1015, Last dose on Thu11/11/24 at 2100, RoutineIndications:Odontogenic Infection Given 11/11/2024 9:28 PM EDT 1 t ablet Given 11/11/2024 8:42 AM EDT 1 tablet Given 11/10/2024 9:46 PM EDT 1 tablet atorvastatin (Lipitor) tablet 40 mg 40 mg, Nasogastric, Nightly, First dose (after last modification) on 10/30/24 at 2100, Until Discontinued, Routine Given 11/02/2024 8:15 PM EDT 40 mg Given 11/01/2024 9:15 PM EDT 40 mg Given 10/31/2024 8:04 PM EDT 40 mg atorvastatin (Lipitor) tablet 40 mg 40 mg, Oral, Nightly, First dose (after last modification) on Bia 11/03/24 at 2100, Until Discontinued, Routine Given 11/11/2024 8:49 PM EDT 40 mg Given 11/10/2024 9:45 PM EDT 40 mg Given 11/09/2024 8:04 PM EDT 40 mg bacitracin (425g jar) ointment 1 Jar 1 Jar, Topical, 2 times daily, 10 doses, First dose on Thu11/09/24 at 0900, Last dose on Thu11/13/24 at 2100, Routine Given 11/12/2024 9:28 AM EDT 1 Jar Given 11/11/2024 8:52 PM EDT 1 Jar Given 11/11/2024 1:04 PM EDT 1 Jar baclofen (Lioresal) tablet 5 mg 5 mg, Oral, 2 times daily, First dose (after last modification) on Thu11/09/24 at 2100, Until Discontinued, Routine Given 11/12/2024 9:27 AM EDT 5 mg Given 11/11/2024 8:49 PM EDT 5 mg Given 11/11/2024 8:42 AM EDT 5 mg barium sulfate (Varibar Pudding) 40 % oral paste 15 mL 15 mL, Oral, Once in imaging, 1 dose, Starting on Thu11/02/24 at 1510, Until Thu11/02/24 at 1522, Routine, Imaging Protocol Orders Given 11/02/2024 3:22 PM EDT 15 mL barium sulfate (Varibar THIN Liquid) 40 % suspension 120 mL 120 mL, Oral, Once in imaging, 1 dose, Starting on Thu11/02/24 at 1510, Until Thu11/02/24 at 1522, Routine, Imaging Protocol Orders Given 11/02/2024 3:22 PM EDT 120 mL [id number] 50-325-40 MG per tablet 1 tablet 1 tablet, Oral, Every 6 hours PRN, Starting on Tu11/08/24 at 1327, Until 11/12/24 at 1807, Routine, headaches dantrolene (Dantrium) capsule 25 mg 25 mg, Oral, 2 times daily, First dose on Bia 11/03/24 at 1430, Until Discontinued, Routine Given 11/07/2024 8:04 AM EDT 25 mg Given 11/06/2024 8:05 PM EDT 25 mg Given 11/06/2024 8:01 AM EDT 25 mg desmopressin (DDAVP) 27 mcg in sodium chloride 0.9 % 50 mL IVPB 27 mcg, Intravenous, Once, 1 dose, On 10/30/24 at 0305, at 123.5 mL/hr, Administer over 30 Minutes, Routine New Bag 10/30/2024 2:56 AM EDT 27 mcg 123.5 mL/hr diphenhydrAMINE (Benadryl) injection 50 mg 50 mg, Intravenous, Once, 1 dose, On Thu10/30/24 at 1000, Routine Given 10/30/2024 9:05 AM EDT 50 mg doxycycline (Vibra-Tabs) tablet 100 mg 100 mg, Oral, 2 times daily, 12 doses, First dose on Thu11/06/24 at 0900, Last dose on Thu11/11/24 at 2100, Routine Given 11/11/2024 8:49 PM EDT 100 mg Given 11/11/2024 8:42 AM EDT 100 mg Given 11/10/2024 9:45 PM EDT 100 mg enoxaparin (Lovenox) syringe 30 mg 30 mg, Subcutaneous, 2 times daily, First dose on Thu10/31/24 at 2100, Until Discontinued, Routine Given 11/12/2024 9:24 AM EDT 30 mg Left Lower Abdomen Given 11/11/2024 8:46 PM EDT 30 mg Le ft Lower Abdomen Given 11/11/2024 8:43 AM EDT 30 mg Ri ght Upper Abdomen erythromycin (Romycin) 5 MG/GM ophthalmic ointment 1 Application Both Eyes, Every 8 hours scheduled, First dose on Thu11/04/24 at 1400, Until Discontinued, Routine Given 11/12/2024 2:02 PM EDT 1 Application Given 11/12/2024 5:09 AM EDT 1 Application Given 11/11/2024 9:04 PM EDT 1 Application FLUoxetine (PROzac) 20 MG/5ML solution 20 mg 20 mg, Nasogastric, Daily, First dose on Thu10/30/24 at 1700, Until Discontinued, Routine Given 11/03/2024 8:48 AM EDT 20 mg Given 11/02/2024 8:04 AM EDT 20 mg Given 11/01/2024 8:02 AM EDT 20 mg FLUoxetine (PROzac) capsule 20 mg 20 mg, Oral, Daily, First dose on Thu11/04/24 at 0900, Until Discontinued, Routine Given 11/12/2024 9:27 AM EDT 20 mg Given 11/11/2024 8:42 AM EDT 20 mg Given 11/10/2024 8:39 AM EDT 20 mg furosemide (Lasix) injection 20 mg 20 mg, Intravenous, Once, 1 dose, On Bia 11/03/24 at 1230, Routine Given 11/03/2024 12:08 PM EDT 20 mg hydrALAZINE (Apresoline) injection 10 mg 10 mg, Intravenous, Every 4 hours PRN, Starting on Thu11/01/24 at 2001, Until Thu11/08/24 at 1327, Routine, high blood pressure, SBP>160 Given 11/07/2024 5:53 AM EDT 10 mg Given 11/04/2024 10:26 AM EDT 10 mg Given 11/01/2024 9:23 PM EDT 10 mg HYDROmorphone (Dilaudid) injection 0.25 mg 0.25 mg, Intravenous, Every 2 hour PRN, Starting on Thu10/31/24 at 1353, Until Thu11/04/24 at 0926, Routine, mild - moderate pain Given 11/04/2024 5:20 AM EDT 0.25 mg Given 11/02/2024 3:45 PM EDT 0.25 mg Given 11/02/2024 8:22 AM EDT 0.25 mg HYDROmorphone (Dilaudid) injection 0.5 mg 0.5 mg, Intravenous, Every 2 hour PRN, Starting on Thu10/31/24 at 1353, Until Thu11/04/24 at 0926, Routine, severe pain Given 11/04/2024 1:26 AM EDT 0.5 mg Given 11/03/2024 9:09 PM EDT 0.5 mg Given 11/03/2024 2:04 PM EDT 0.5 mg hydromorphone 20 mg in NS 100 mL infusion (200 mcg/mL) 0.25-2 mg/hr (1.25-10 mL/hr), 0.2 mg/mL, Intravenous, Titrated, Starting on 10/30/24 at 0305, Until Thu10/31/24 at 1353, Routine Rate/Dose Verify 10/30/2024 5:00 PM EDT 0.25 mg/hr 1.25 mL/hr Rate/Dose Verify 10/30/2024 4:00 PM EDT 0.25 mg/hr 1.25 mL /hr Rate/Dose Verify 10/30/2024 3:30 PM EDT 0.25 mg/hr 1.25 mL /hr hydrOXYzine pamoate (Vistaril) capsule 25 mg 25 mg, Oral, Every 8 hours PRN, Starting on Thu11/02/24 at 1646, Until 11/12/24 at 1807, Routine, itching Given 11/11/2024 8:49 PM EDT 25 mg Given 11/11/2024 8:42 AM EDT 25 mg Given 11/10/2024 10:58 PM EDT 25 mg ipratropium-albuterol (Duo-Neb) 0.5-2.5 mg/3 mL nebulizer solution - Pyxis Override Pull 1 dose, Starting on Thu10/30/24 at 0923, Until Thu10/30/24 at 0913 Given 10/30/2024 9:13 AM EDT ipratropium-albuterol (Duo-Neb) 0.5-2.5 mg/3 mL nebulizer solution - Pyxis Override Pull 1 dose, Starting on Thu11/01/24 at 1158, Until Thu11/01/24 at 1207 Given 11/01/2024 12:07 PM EDT 3 mL ipratropium-albuterol (Duo-Neb) 0.5-2.5 mg/3 mL nebulizer solution 3 mL 3 mL, Nebulization, Once, 1 dose, On Thu10/30/24 at 1000, Routine Given 10/30/2024 9:13 AM EDT 3 mL ipratropium-albuterol (Duo-Neb) 0.5-2.5 mg/3 mL nebulizer solution 3 mL 3 mL, Nebulization, Every 6 hours RT, First dose on Thu11/02/24 at 1130, Until Discontinued, Routine Given 11/06/2024 3:52 PM EDT 3 mL Given 11/06/2024 9:46 AM EDT 3 mL Given 11/06/2024 3:04 AM EDT 3 mL ipratropium-albuterol (Duo-Neb) 0.5-2.5 mg/3 mL nebulizer solution 3 mL 3 mL, Nebulization, Every 6 hours PRN, Starting on Thu11/07/24 at 1515, Until 11/12/24 at 1807, Routine, wheezing lactated Ringer's bolus 500 mL 500 mL, Intravenous, Once, 1 dose, On Thu10/31/24 at 1445, Administer over 1 Hours, Routine New Bag 10/31/2024 2:07 PM EDT 500 mL 500 mL/hr levETIRAcetam (Keppra) tablet 1,000 mg 1,000 mg, Oral, 2 times daily, 1400 doses, First dose on 10/30/24 at 0900, Last dose on 09/29/26 at 2100, Routine Given 10/30/2024 11:23 AM EDT 1,000 mg levETIRAcetam (Keppra) tablet 1,000 mg 1,000 mg, Nasogastric, 2 times daily, 13 doses, First dose (after last modification) on 10/30/24 at 2100, Last dose on 11/05/24 at 2100, Routine Given 11/03/2024 8:47 AM EDT 1,000 mg Given 11/02/2024 8:15 PM EDT 1,000 mg Given 11/02/2024 8:03 AM EDT 1,000 mg levETIRAcetam (Keppra) tablet 1,000 mg 1,000 mg, Oral, 2 times daily, 5 doses, First dose (after last modification) on Bia 11/03/24 at 2100, Last dose on 11/05/24 at 2100, Routine Given 11/05/2024 8:25 PM EDT 1,000 mg Given 11/05/2024 9:45 AM EDT 1,000 mg Given 11/04/2024 9:49 PM EDT 1,000 mg levothyroxine (Synthroid, Levoxyl) tablet 50 mcg 50 mcg, Oral, Every morning, First dose on Thu10/30/24 at 1030, Until Discontinued, Routine Given 10/30/2024 11:23 AM EDT 50 mcg levothyroxine (Synthroid, Levoxyl) tablet 75 mcg 75 mcg, Nasogastric, Every morning, First dose on Thu10/31/24 at 0600, Until Discontinued, Routine Given 11/03/2024 5:24 AM EDT 75 mcg Given 11/02/2024 5:32 AM EDT 75 mcg Given 11/01/2024 6:04 AM EDT 75 mcg levothyroxine (Synthroid, Levoxyl) tablet 75 mcg 75 mcg, Oral, Daily before breakfast, First dose (after last modification) on Thu11/04/24 at 0730, Until Discontinued, Routine Given 11/08/2024 8:02 AM EDT 75 mcg Given 11/07/2024 8:04 AM EDT 75 mcg Given 11/06/2024 6:37 AM EDT 75 mcg levothyroxine (Synthroid, Levoxyl) tablet 75 mcg 75 mcg, Oral, Every morning, First dose (after last modification) on Thu11/09/24 at 0600, Until Discontinued, Routine Given 11/12/2024 5:09 AM EDT 75 mcg Given 11/11/2024 5:37 AM EDT 75 mcg Given 11/10/2024 5:20 AM EDT 75 mcg magnesium sulfate IVPB 2 g 2 g, Intravenous, Once, 1 dose, On 10/31/24 at 0600, Routine New Bag 10/31/2024 6:49 AM EDT 2 g 25 mL/hr megestrol (Megace) 40 MG/ML suspension 400 mg 400 mg, Oral, Daily, Hazardous Drug-Tier 1 Precautions. Dispose in BLACK Hazardous Waste Container. Chemotherapy: refer to [id number]., First dose on Thu11/08/24 at 1215 Given 11/12/2024 9:57 AM EDT 400 mg Given 11/11/2024 8:43 AM EDT 400 mg Given 11/08/2024 12:07 PM EDT 400 mg mirtazapine (Remeron) tablet 15 mg 15 mg, Oral, Nightly, First dose on Thu11/04/24 at 2100, Until Discontinued, Routine Given 11/11/2024 8:49 PM EDT 15 mg Given 11/10/2024 9:45 PM EDT 15 mg Given 11/09/2024 8:04 PM EDT 15 mg mupirocin (Bactroban) 2 % ointment 1 Application Each Nostril, 2 times daily, 10 doses, First dose on 10/30/24 at 0900, Last dose on Bia 11/03/24 at 2100, Routine Given 11/03/2024 8:47 AM EDT 1 Ap plication Given 11/02/2024 8:15 PM EDT 1 Application Given 11/02/2024 8:03 AM EDT 1 Application mupirocin (Bactroban) 2 % ointment 1 Application Each Nostril, 2 times daily, 10 doses, First dose on Thu11/05/24 at 0900, Last dose on Thu11/09/24 at 2100, Routine Given 11/09/2024 9:07 AM EDT 1 Application Given 11/08/2024 8:01 PM EDT 1 Application Given 11/08/2024 8:02 AM EDT 1 Application mupirocin (Bactroban) 2 % ointment 1 Application Each Nostril, 2 times daily, 3 doses, First dose (after last reorder) on Thu11/09/24 at 2245, Last dose on Thu11/10/24 at 2100, Routine Given 11/10/2024 8:00 PM EDT 1 Application Given 11/10/2024 8:39 AM EDT 1 Application Given 11/09/2024 10:30 PM EDT 1 Application norepinephrine 8 mg/250 mL (0.032 mg/mL) infusion 0-0.4 mcg/kg/min 67.6 kg (0-50.7 mL/hr), 0.032 mg/mL, Intravenous, Titrated, Starting on Thu10/30/24 at 1000, Until Thu10/31/24 at 0931, STAT Restarted 10/31/2024 7:00 AM EDT 0.01 mcg/kg/min 1.27 mL/hr New Bag 10/31/2024 5:20 AM EDT 0.01 mcg/kg/min 1.27 mL/ hr New Bag 10/31/2024 4:45 AM EDT 0.02 mcg/kg/min 2.54 mL/ hr norepinephrine (Levophed) 0.032 mg/mL infusion - Pyxis Override Pull 1 dose, Starting on Thu10/30/24 at 0842, Until Thu10/30/24 at 1020 ondansetron (Zofran) injection 4 mg 4 mg, Intravenous, Every 6 hours PRN, Starting on Thu11/04/24 at 1639, Until 11/12/24 at 1807, Routine, nausea, vomiting Given 11/08/2024 10:45 AM EDT 4 mg Given 11/07/2024 6:36 PM EDT 4 mg Given 11/06/2024 11:59 AM EDT 4 mg ondansetron ODT (Zofran-ODT) disintegrating tablet 4 mg 4 mg, Oral, Every 6 hours PRN, Starting on Thu11/04/24 at 1639, Until 11/12/24 at 1807, Routine, nausea, vomiting oxyCODONE (Roxicodone) immediate release tablet 5 mg 5 mg, Oral, Every 4 hours PRN, Starting on Thu10/31/24 at 1352, Until Thu11/08/24 at 1327, Routine, moderate pain, severe pain Given 11/07/2024 10:37 PM EDT 5 mg Given 11/07/2024 8:04 AM EDT 5 mg Given 11/06/2024 11:54 PM EDT 5 mg oxyCODONE (Roxicodone) immediate release tablet 5 mg 5 mg, Oral, Every 8 hours PRN, Starting on Thu11/08/24 at 1327, Until Thu11/12/24 at 1807, Routine, severe pain Given 11/11/2024 8:47 PM EDT 5 mg Given 11/11/2024 8:42 AM EDT 5 mg Given 11/10/2024 10:58 PM EDT 5 mg pantoprazole (Protonix) injection 40 mg 40 mg, Intravenous, Daily, First dose on Thu10/30/24 at 0900, Until Discontinued, Routine Given 11/01/2024 8:03 AM EDT 40 mg Given 10/31/2024 8:12 AM EDT 40 mg Given 10/30/2024 10:02 AM EDT 40 mg phenylephrine in NS (Avtar-Synephrine) 100 mcg/mL prefilled syringe - Pyxis Override Pull 1 dose, Starting on Thu10/30/24 at 0830, Until Thu10/30/24 at 1052 Given 10/30/2024 10:52 AM EDT polyethylene glycol (Miralax) packet 17 g 17 g, Nasogastric, 2 times daily, First dose on Thu10/31/24 at 1015, Until Discontinued, Routine Given 11/03/2024 8:47 AM EDT 17 g Given 11/02/2024 8:16 PM EDT 17 g Given 11/02/2024 9:16 AM EDT 17 g polyethylene glycol (Miralax) packet 17 g 17 g, Oral, 2 times daily, First dose (after last modification) on Bia 11/03/24 at 2100, Until Discontinued, Routine Given 11/12/2024 9:28 AM EDT 17 g Given 11/11/2024 8:47 PM EDT 17 g Given 11/04/2024 9:50 PM EDT 17 g potassium & sodium phosphates (Phos-NaK) 280-160-250 MG packet 1 packet 1 packet, Nasogastric, Every 12 hours, 2 doses, First dose on Thu10/31/24 at 1030, Last dose on Thu10/31/24 at 2230, Routine Given 10/31/2024 10:03 PM EDT 1 packet Given 10/31/2024 10:11 AM EDT 1 packet propofol (Diprivan) infusion 10 mg/mL 10-50 mcg/kg/min 67.6 kg (4.056-20.28 mL/hr, rounded to 4.06-20.28 mL/hr), Intravenous, Titrated, Starting on Thu10/30/24 at 0305, Until Thu10/31/24 at 1353, Routine Rate/Dose Verify 10/30/2024 9:00 PM EDT 25 mcg/kg/min 10.14 mL/hr Rate/Dose Verify 10/30/2024 8:00 PM EDT 25 mcg/kg/min 10.1 4 mL/hr Rate/Dose Verify 10/30/2024 7:00 PM EDT 25 mcg/kg/min 10.1 4 mL/hr QUEtiapine (SEROquel) tablet 100 mg 100 mg, Oral, Nightly, First dose (after last modification) on Thu11/09/24 at 2100, Until Discontinued, Routine Given 11/11/2024 8:49 PM EDT 100 mg Given 11/10/2024 9:46 PM EDT 100 mg Given 11/09/2024 8:04 PM EDT 100 mg QUEtiapine (SEROquel) tablet 150 mg 150 mg, Nasogastric, Nightly, First dose (after last modification) on Thu10/30/24 at 2100, Until Discontinued, Routine Given 10/30/2024 8:33 PM EDT 150 mg QUEtiapine (SEROquel) tablet 50 mg 50 mg, Nasogastric, Nightly, First dose (after last modification) on Thu10/31/24 at 2100, Until Discontinued, Routine Given 11/02/2024 8:15 PM EDT 50 mg Given 11/01/2024 9:15 PM EDT 50 mg Given 10/31/2024 8:04 PM EDT 50 mg QUEtiapine (SEROquel) tablet 50 mg 50 mg, Oral, Nightly, First dose (after last modification) on [facility] 11/03/24 at 2100, Until Discontinued, Routine Given 11/08/2024 8:01 PM EDT 50 mg Given 11/07/2024 8:01 PM EDT 50 mg Given 11/06/2024 8:02 PM EDT 50 mg senna-docusate (Marley-Colace) 8.6-50 MG per tablet 2 tablet 2 tablet, Oral, 2 times daily, First dose on [place] 10/30/24 at 0915, Until Discontinued, Routine Given 10/30/2024 11:24 AM EDT 2 tablets senna-docusate (Marley-Colace) 8.6-50 MG per tablet 2 tablet 2 tablet, Nasogastric, 2 times daily, First dose (after last modification) on [place] 10/30/24 at 2100, Until Discontinued, Routine Given 11/03/2024 8:48 AM EDT 2 tablets Given 11/02/2024 8:15 PM EDT 2 tablets Given 11/02/2024 9:16 AM EDT 2 tablets senna-docusate (Marley-Colace) 8.6-50 MG per tablet 2 tablet 2 tablet, Oral, 2 times daily, First dose (after last modification) on [facility] 11/03/24 at 2100, Until Discontinued, Routine Given 11/12/2024 9:26 AM EDT 2 table ts Given 11/11/2024 8:47 PM EDT 2 tablets Given 11/05/2024 8:25 PM EDT 2 tablets sodium chloride 0.9 % bolus 1,000 mL 1,000 mL, Intravenous, Once, 1 dose, On [place] 10/30/24 at 0700, Administer over 15 Minutes, Routine New Bag 10/30/2024 6:45 AM EDT 1,000 mL 4000 mL/hr sodium chloride 0.9 % bolus 500 mL 500 mL, Intravenous, Once, 1 dose, On [place] 10/30/24 at 1345, Administer over 15 Minutes, Routine New Bag 10/30/2024 1:44 PM EDT 500 mL 2000 mL/hr sodium chloride 0.9 % bolus 500 mL 500 mL, Intravenous, Once, 1 dose, On Thu10/30/24 at 1615, Administer over 15 Minutes, Routine New Bag 10/30/2024 3:30 PM EDT 500 mL 2000 mL/hr sodium chloride 0.9 % flush 10 mL 10 mL, Intravenous, Every 12 hours, First dose on Thu10/30/24 at 0415, Until Discontinued, Routine Given 11/02/2024 4:19 AM EDT 10 mL Given 11/01/2024 3:29 AM EDT 10 mL Given 10/31/2024 3:28 PM EDT 10 mL sodium chloride 0.9 % flush 10 mL 10 mL, Intravenous, Every 12 hours, First dose on Thu10/30/24 at 1745, Until Discontinued, Routine Given 11/02/2024 5:11 AM EDT 10 mL Given 11/01/2024 4:48 AM EDT 10 mL Given 10/31/2024 5:25 PM EDT 10 mL sodium chloride 0.9 % flush 10 mL 10 mL, Intravenous, Every 12 hours, First dose on Thu10/30/24 at 1815, Until Discontinued, Routine Given 11/02/2024 5:32 AM EDT 10 mL Given 11/01/2024 6:25 PM EDT 10 mL Given 11/01/2024 6:04 AM EDT 10 mL sodium chloride 0.9 % flush 10 mL 10 mL, Intravenous, Every 12 hours, First dose on [place] 10/30/24 at 2200, Until Discontinued, Routine Given 11/01/2024 9:15 PM EDT 10 mL Given 11/01/2024 9:45 AM EDT 10 mL Given 10/31/2024 10:03 PM EDT 10 mL sodium chloride 0.9 % infusion 75 mL/hr, Intravenous, Continuous, Starting on Thu10/30/24 at 0415, Until Thu11/02/24 at 1018, Routine New Bag 11/01/2024 5:53 PM EDT 75 mL/ hr 75 mL/hr Restarted 11/01/2024 1:55 PM EDT Rate/Dose Verify 11/01/2024 10:00 AM EDT 75 mL/hr 75 mL/ hr Sodium Phosphate-NaCl IVPB 15 mmol 15 mmol, Intravenous, Once, 1 dose, On [place] 11/03/24 at 0430, Routine Given 11/03/2024 4:09 AM EDT 15 mmol 62.5 mL/hr sodium phosphates 30 mmol in sodium chloride 0.9 % 100 mL IVPB 30 mmol, Intravenous, Once, 1 dose, On Thu11/01/24 at 0200, Routine New Bag 11/01/2024 2:19 AM EDT 30 mmol 30 mL/hr tamsulosin (Flomax) 24 hr capsule 0.4 mg 0.4 mg, Oral, Daily with dinner, First dose on Thu11/03/24 at 1800, Until Discontinued, Routine Given 11/10/2024 5:35 PM EDT 0.4 mg Given 11/05/2024 6:17 PM EDT 0.4 mg Given 11/04/2024 5:48 PM EDT 0.4 mg vasopressin (Vasostrict) 20 Units in sodium chloride 0.9 % 100 mL (0.2 Units/mL) infusion 0.03 Units/min (9 mL/hr), 0.2 units/mL, Intravenous, Continuous, Starting on Thu10/30/24 at 1215, Until Thu10/31/24 at 0931, STAT New Bag 10/31/2024 1:49 AM EDT 0.03 Units/min 9 mL/hr Rate/Dose Verify 10/30/2024 9:00 PM EDT 0.03 Units/min 9 m L/hr Rate/Dose Verify 10/30/2024 8:00 PM EDT 0.03 Units/min 9 m L/hr documented in this encounter Active and Recently Administered Medications Times are shown in EDT. Scheduled Medication Order 11/10/2024 11/11/2024 11/12/2024 acetaminophen (Tylenol) tablet 500 mg 500 mg, Oral, 4 times daily, First dose (after last modification) on Thu11/08/24 at 1800, Until Discontinued, Routine 0823 (Not Given - Provider: Jelly Clay RN - Reason: Patient/family refused)1404 (Not Given - Provider: Junior Naila Raines - Reason: Patient/family refused)1743 (Not Given - Provider: Junior Naila Raines - Reason: Patient/family refused)2146 (Given - Provider: Pietro Valdovinos RN) 0842 (Given - Provider: Andreea Dean RN)1304 (Given - Provider: Andreea Dean RN)1710 (Given - Provider: Andreea Dean RN)2105 (Given - Provider: Jazmin Burton RN) 0927 (Given - Provider: Melony Maldonado)1402 (Given - Provider: Melony Maldonado)1800 (Canceled Entry - Provider: Automatic Discharge Provider - Comment: Automatically canceled at discontinue of medication order) amLODIPine (Norvasc) tablet 5 mg 5 mg, Oral, Daily, First dose (after last modification) on 11/05/24 at 0900, Until Discontinued, Routine, Recovery(Phase II-Outpatient)/On Unit(Inpatient) 0839 (Given - Provider: Jelly Clay RN) 0843 (Given - Provider: Andreea Dean RN) 0927 (Given - Provider: Melony Maldonado) amoxicillin-clavulanat e (Augmentin) 875-125 MG per tablet 1 tablet (COMPLETED) 1 tablet (875 mg), Oral, Every 12 hours, 16 doses, First dose on Thu11/04/24 at 1015, Last dose on Thu11/11/24 at 2100, Routine 0839 (Given - Provider: Jelly Clay RN)2146 (Given - Provider: Pietro Valdovinos RN) 0842 (Given - Provider: Andreea Dean RN)2127 (Given - Provider: Jazmin Burton, LUANNE) atorvastatin (Lipitor) tablet 40 mg 40 mg, Oral, Nightly, First dose (after last modification) on [place] 11/03/24 at 2100, Until Discontinued, Routine 214 (Given - Provider: Pietro Valdovinos, LUANNE) 2048 (Given - Provider: Jazmin Burton, LUANNE) bacitracin (425g jar) ointment 1 Jar 1 Jar, Topical, 2 times daily, 10 doses, First dose on Thu11/09/24 at 0900, Last dose on Thu11/13/24 at 2100, Routine 0840 (Given - Provider: Jelly Clay RN)2200 (Given - Provider: Pietro Valdovinos RN) 1304 (Given - Provider: Andreea Dean RN)205 (Given - Provider: Jazmin Burton RN) 0928 (Given - Provider: Melony Maldonado) baclofen (Lioresal) tablet 5 mg 5 mg, Oral, 2 times daily, First dose (after last modification) on Thu11/09/24 at 2100, Until Discontinued, Routine 0839 (Given - Provider: Jelly Clay RN)2143 (Given - Provider: Pietro Valdovinos RN) 0842 (Given - Provider: Andreea Dean RN)2048 (Given - Provider: Jazmin Burton RN) 0927 (Given - Provider: Melony Maldonado) doxycycline (Vibra-Tabs) tablet 100 mg (COMPLETED) 100 mg, Oral, 2 times daily, 12 doses, First dose on Thu11/06/24 at 0900, Last dose on Thu11/11/24 at 2100, Routine 0840 (Given - Provider: Jelly Clay RN)2144 (Given - Provider: Pietro Valdovinos RN) 0842 (Given - Provider: Andreea Dean RN)2048 (Given - Provider: Jazmin Burton RN) enoxaparin (Lovenox) syringe 30 mg 30 mg, Subcutaneous, 2 times daily, First dose on Thu10/31/24 at 2100, Until Discontinued, Routine 0839 (Given - Provider: Jelly Clay RN)2143 (Given - Provider: Pietro Valdovinos RN) 0843 (Given - Provider: Andreea Dean RN)2045 (Given - Provider: Jazmin Burton RN) 0924 (Given - Provider: Melony Maldonado) erythromycin (Romycin) 5 MG/GM ophthalmic ointment 1 Application Both Eyes, Every 8 hours scheduled, First dose on Thu11/04/24 at 1400, Until Discontinued, Routine 0541 (Given - Provider: Pietro Valdovinos RN)1401 (Given - Provider: Junior Naila Raines)2147 (Given - Provider: Pietro Valdovinos RN) 0543 (Given - Provider: Pietro Valdovinos RN)1304 (Given - Provider: Andreea Dean RN)210 (Given - Provider: Jazmin Burton RN) 050 (Given - Provider: Jazmin Burton RN)1402 (Given - Provider: Melony Maldonado) FLUoxetine (PROzac) capsule 20 mg 20 mg, Oral, Daily, First dose on Thu11/04/24 at 0900, Until Discontinued, Routine 0839 (Given - Provider: Jelly Clay RN) 0842 (Given - Provider: Andreea Dean RN) 0927 (Given - Provider: Melony Maldonado) levothyroxine (Synthroid, Levoxyl) tablet 75 mcg 75 mcg, Oral, Every morning, First dose (after last modification) on Thu11/09/24 at 0600, Until Discontinued, Routine 0520 (Given - Provider: Pietro Valdovinos RN) 0537 (Given - Provider: Pietro Valdovinos RN) 0509 (Given - Provider: Jazmin Burton, LUANNE) megestrol (Megace) 40 MG/ML suspension 400 mg 400 mg, Oral, Daily, Hazardous Drug-Tier 1 Precautions. Dispose in BLACK Hazardous Waste Container. Chemotherapy: refer to [id number]., First dose on Thu11/08/24 at 1215 0906 (Not Given - Provider: Jelly Clay RN - Reason: Patient/family refused) 0843 (Given - Provider: Andreea Dean RN) 0957 (Given - Provider: Melony Maldonado) mirtazapine (Remeron) tablet 15 mg 15 mg, Oral, Nightly, First dose on Thu11/04/24 at 2100, Until Discontinued, Routine 2145 (Given - Provider: Pietro Valdovinos RN) 2048 (Given - Provider: Jazmin Burton, LUANNE) mupirocin (Bactroban) 2 % ointment 1 Application (COMPLETED) Each Nostril, 2 times daily, 3 doses, First dose (after last reorder) on Thu11/09/24 at 2245, Last dose on Thu11/10/24 at 2100, Routine 0839 (Given - Provider: Jelly Clay RN)1999 (Given - Provider: Pietro Valdovinos RN) polyethylene glycol (Miralax) packet 17 g 17 g, Oral, 2 times daily, First dose (after last modification) on Thu11/03/24 at 2100, Until Discontinued, Routine 0822 (Not Given - Provider: Jelly Clay RN - Reason: Hold for condition: must add comment - Comment: multiple bm)2219 (Not Given - Provider: Pietro Valdovinos RN - Reason: Patient/family refused) 0843 (Not Given - Provider: Andreea Dean RN - Reason: Hold for condition: must add comment - Comment: bm)2046 (Given - Provider: Jazmin Burton RN) 0928 (Given - Provider: Melony Maldonado) QUEtiapine (SEROquel) tablet 100 mg 100 mg, Oral, Nightly, First dose (after last modification) on Thu11/09/24 at 2100, Until Discontinued, Routine 214 (Given - Provider: Pietro Valdovinos RN) 2048 (Given - Provider: Jazmin Burton RN) senna-docusate (Marley-Colace) 8.6-50 MG per tablet 2 tablet 2 tablet, Oral, 2 times daily, First dose (after last modification) on [place] 11/03/24 at 2100, Until Discontinued, Routine 0822 (Not Given - Provider: Jelly Clay RN - Reason: Epidural Placement or Removal - Comment: multiple bm)221 (Not Given - Provider: Pietro Valdovinos RN - Reason: Patient/family refused) 0842 (Not Given - Provider: Andreea Dean RN - Reason: Hold for condition: must add comment - Comment: bm)2046 (Given - Provider: Jazmin Burton RN) 09 (Given - Provider: Melony Maldonado) tamsulosin (Flomax) 24 hr capsule 0.4 mg 0.4 mg, Oral, Daily with dinner, First dose on [place] 11/03/24 at 1800, Until Discontinued, Routine 1735 (Given - Provider: Junior Naila Raines) 1710 (Not Given - Provider: Andreea Dean RN - Reason: Hold for condition: must add comment - Comment: cannot swallow it) 1800 (Canceled Entry - Provider: Automatic Discharge Provider - Comment: Automatically canceled at discontinue of medication order) PRN Medication Order 11/10/2024 11/11/2024 11/12/2024 [id number] feine 50-325-40 MG per tablet 1 tablet 1 tablet, Oral, Every 6 hours PRN, Starting on Tu11/08/24 at 1327, Until 11/12/24 at 1807, Routine, headaches hydrOXYzine pamoate (Vistaril) capsule 25 mg 25 mg, Oral, Every 8 hours PRN, Starting on Thu11/02/24 at 1646, Until 11/12/24 at 1807, Routine, itching 0000 (Given - Provider: Pietro Valdovinos RN)2257 (Given - Provider: Pietro Valdovinos RN) 0842 (Given - Provider: Andreea Dean RN)2048 (Given - Provider: Jazmin Burton, LUANNE) ipratropium-albuterol (Duo-Neb) 0.5-2.5 mg/3 mL nebulizer solution 3 mL 3 mL, Nebulization, Every 6 hours PRN, Starting on Thu11/07/24 at 1515, Until 11/12/24 at 1807, Routine, wheezing ondansetron (Zofran) injection 4 mg(Linked Group 1) 4 mg, Intravenous, Every 6 hours PRN, Starting on Thu11/04/24 at 1639, Until 11/12/24 at 1807, Routine, nausea, vomiting ondansetron ODT (Zofran-ODT) disintegrating tablet 4 mg(Linked Group 1) 4 mg, Oral, Every 6 hours PRN, Starting on Thu11/04/24 at 1639, Until 11/12/24 at 1807, Routine, nausea, vomiting oxyCODONE (Roxicodone) immediate release tablet 5 mg 5 mg, Oral, Every 8 hours PRN, Starting on Thu11/08/24 at 1327, Until 11/12/24 at 1807, Routine, severe pain 0000 (Given - Provider: Pietro Valdovinos RN)0907 (Return to Cabinet - Provider: Jelly Clay RN)2257 (Given - Provider: Pietro Valdovinos RN) 08 (Given - Provider: Andreea Dean, RN)2046 (Given - Provider: Jazmin Burton, LUANNE) Linked Groups Order Group 1: ondansetron ODT (Zofran-ODT) disintegrating tablet 4 mgJump to med 4 mg, Oral, Every 6 hours PRN, Starting on Thu11/04/24 at 1639, Until 11/12/24 at 1807, Routine, nausea, vomiting Or ondansetron (Zofran) injection 4 mgJump to med 4 mg, Intravenous, Every 6 hours PRN, Starting on 11/04/25 at 1639, Until 11/12/24 at 1807, Routine, nausea, vomiting documented in this encounter Additional Health Concerns 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
--- OUTSIDE RECORDS SUMMARY | 2024-11-01 12:56 | XMS_ITS | Encounter Summary ---
Author Organization Healthcare Address [address] [place] [address] Care Team Providers Care Marine Steward Name Role Phone Aman Hernandez MD Primary Care Provider Reason for Visit * Reason Comments Trauma Alert * Auth/Cert (Routine) Specialty Diagnoses / Procedures Referred By Contac t Referred To Contact Diagnoses Intraventricular hemorrhage (CMS/HCC) Fall, Retrobulbar hematoma, brain bleed Katharine Savage MD [address] [facility] [address] [place] [address] Phone: tel: fax: P[facility] A Inpatient [address] [place] [address] Phone: tel: Referral ID Status Reason Start Date Expiration Date Visits Re quested Visits Authorized [id number] 1 1 Encounter Details Date Type Department Care Team (Latest Contact Info) Description 11/01/2024 12:56 PM EDT - 11/01/2024 2:41 PM EDT Surgery PAV A OPERATING ROOM [address] [place] [address] Yobani Benoit MD [address] [facility] [address] [place] [address] ORIF, FRACTURE, ZYGOMATICOMAXILLARY COMPLEX [63470 (CPT )] Surgery Details Date/Time Status Location OR Service Patient Class Case Class Case Type Trauma Case? 11/01/2024 12:56 PM Posted [facility] ENT Inpatient E-Electiv e Panel 1 [...] any time in the past 12 m [facility], were you homeless or living in a senior care (including now)? Patient unable to answer 10/31/2024 [facility] Utilities Answer Date Recorded In the [...] Discharge Instructions * Discharge Instructions* Charles Velasco, HAND UMBRELLA TIPPER - 11/12/2024 1:10 PM EDT DVT prophylaxis: [...] date and time. Neelima0 [facility], Third Floor, [place] [address] # [phone] Ophtho: Follow up 11/21 @ 12:25. [facility], [address] [place] [address] #[phone] Neurosurgery: Clinic will contact with appointment date and time, [address], [facility], [facility], [address], [place] [address], SGT: [facility] Thursday Clinic as needed ; [address] [place], [place] [facility] First Floor, Wing [address] [place] [address], #[phone]. Questions or Concerns and Appointments If there are questions or concerns after discharge from the hospital, please call [phone] and ask for Blue Surgery Nurse. Working hours are Thursday - Thursday 8:00 AM to 4:00 PM. After hours, weekends and holidays please call [phone] and ask for the resident marketing communications associate for Blue Surgery. For appointments please call [phone]. Medication requests should be made between the hours of 9:00 AM to 3:00 PM Thursday thru Thursday. Please note that based upon recent changes to [place] law related to prescribing opioid pain medications, [...] 1.5 tablets by mouth nightly. HYDROcodone-acetami nophen ([place]) 5-325 MG tablet Take 1 tablet by [...] to 5 days. 20 tablet 11/12/2024 11/18/19 oxyCODONE (Roxicodone) 5 MG immediate release tablet Take 1 tablet by mouth every 8 hours as needed for severe pain for up to 3 days. 9 tablet 11/12/2024 11/16/19 polyethylene glycol (Miralax) 17 g packet Take [...] from the original note were not included. [id number] Oxycodone IMPORTANT WARNING: Oxycodone may be habit-forming. [...] Health Services Administration (SAMHSA) National Helpline at 4-760-904-YXWZ. Oxycodone may cause serious or life-threatening breathing [...] doctor or pharmacist will give you the automatic glove turner and former's patient information sheet (Medication Guide) when you begin your treatment with oxycodone and each time you fill your prescription. Read theinformation carefully and ask your doctor or pharmacist if you have any questions. You can also visit the Food and Drug Administration (FDA) website (https://www.fda.gov/Drugs/DrugSafety/itp795512.htm) or the automatic glove turner and former's website to obtain the Medication Guide. WHY [...] an extended-release capsule (Xtampza ER??) to take bynyuth. The solution, concentrated solution, tablet, and capsule [...] be awakened, immediately call emergency services at 151. While taking oxycodone, you should talk to [...] pharmacist for the instructions or visit the automatic glove turner and former's website to get the instructions. If symptoms [...] narrowing or widening of the pupils (dark wrangell in the eye) ? cold, clammy skin [...] of all of the prescription and nonprescription (bitn-oms-bedlinq) medicines, vitamins, minerals, and dietary supplements you [...] or pharmacist about specific clinical use. The [place] [employer] represents that the information provided hereunder was formulated with a reasonable standard of care, and in conformity with professional standards in the field. The [place] [employer] makes no representations or warranties, express or implied, including, but not limited to, any implied warranty of merchantability and/or fitness for a particular purpose, with respect to such information and specifically disclaims all such warranties. Users are advised that decisions regarding drug therapy are complex medical decisions requiring the independent, informed decision of an appropriate health day care center director, and the information is provided for informational purposes only. The entire monograph for a drug should be reviewed for a thorough understanding of the drug's actions, uses and side effects. The [place] [employer] does not endorse or recommend the use of any drug.The information is not a substitute for medical care. AHFS?? Patient Medication Information?. ?? Copyright, 2023. The [place] [employer]-System Pharmacists??, [address], [address], [place], [place]. All Rights Reserved. Duplication for commercial use must be authorized by [facility]. Selected Revisions: March 09, 2024. AHFS?? [...] controlled substances: ? Drug Enforcement Agency (BARBARA): http://www.deadiversion.MEDNAXoj.gov/drug_disposal/takeback/index.htm ? National Association of Drug Diversion Investigators (NADDI): http://rxdrugdropbox.org/ ? [place] Office of Drug Control Policy: http://odcp.ky.gov/Prescription+Drug+Drop+Box+Sites.htm Are [...] or purple What is a BASIA report? [facility] is a system that tracks prescriptions of controlled substances in [place]. The BASIA report tells your doctor if [...] or your doctor may then call the [place] Drug Enforcement and Professional Practices Branch at .This will start an investigation of the error. * Reyes CarmonaAdele RN - 11/12/2024 1:53 PM EDT Images from the original note were not included. [address] Preventing a Surgical Site Infection A risk [...] of infection. ? Controlled body temperature. A gjiux-pirh-dpakek temperature during or after surgery prevents oxygen [...] and water or with an alcohol-based hand dye mixer before and after caring for you. Don?t [...] away. Last Reviewed Date: 2024 00:00:00 ?? 9015-1449 [employer]. All rights reserved. This information is not intended as a substitute for professional medical care. Always follow your healthcare professional's instructions. * Reyes SamsonYUNG - Aedle Carmona RN - 11/12/2024 1:51 PM EDT [...] from the original note were not included. [id number] Fall Prevention Falls often take place due [...] medical history, your current prescriptions and your rlgl-upr-pvfzkwm medicines. As a general rule, the National [place] on Aging (NCA) recommends taking one-third of [...] often. Last Reviewed Date: 2024 00:00:00 ?? 5539-3836 [employer]. All rights reserved. This information is not intended as a substitute for professional medical care. Always follow your healthcare professional's instructions. * Reyes [facility] - Adele Carmona RN - 11/12/2024 1:51 PM EDT Images from the original note were not included. 106 Sinus Surgery After your sinus surgery, it is very important that you work with your doctor to keep your nasal and sinus cavities clean. Home care ? Use Your [place]! The more moist your nose is, the [...] have some congestion. You may take an ujah-iot-jjunkbw decongestant, like Sudafed. Do not take any [...] call and ask for the ENT resident marketing communications associate. * Reyes SamsonYUNG - Mathew, Adele Antonina, [...] refer you to a concussion specialist at [facility]. When should I call 911? Some [...] might refer you to a specialist at [facility]. ? For symptoms that last longer [...] PCP name and Address: Aman Hernandez MD [address] [facility] [address] / [facility] [address] Referring provider name and address: Alfonso Anderson MD [address] [place] [address] [place] [address] Chief Concern, Brief History of Present Illness, [...] the bedside, plan to transport her to [facility] by car on this day at 1630. Family and patient are agreeable to the plan. No further questions or concerns per patient form setter metal road forms. Physical therapy and occupational therapy evaluated the patient during hospitalization and recommend Subacute Rehab. At the time of discharge the patient was hemodynamically stable, tolerating PO, voiding spontaneously, normal bowel function, mobilizing appropriately, with their pain controlled with PO medication. At this time, the patient has obtained the maximum benefit from the present hospital stay, and so will be discharged to [facility]. DVT prophylaxis: Hold AC/AP for 2 weeks [...] date and time. [facility], [address] [place] [id number] # [phone] Ophtho: Follow up 11/21 @ 12:25. [facility], [address] [place] [address] #[phone] Neurosurgery: Clinic will contact with appointment date and time, Viv Orozco, First Floor, Wing C, [address], [place] [address], SGT: [facility] Thursday Clinic as needed ; [address] [place], [place] [facility] First Floor, Wing [address] [place] [address], #[phone]. Questions or Concerns and Appointments If there are questions or concerns after discharge from the hospital, please call [phone] and ask for Blue Surgery Nurse. Working hours are Thursday - Thursday 8:00 AM to 4:00 PM. After hours, weekends and holidays please call [phone] and ask for the resident marketing communications associate for Blue [facility]. For appointments please call [phone]. Medication requests should be made between the hours of 9:00 AM to 3:00 PM Thursday thru Thursday. Please note that based upon recent changes to [place] law related to prescribing opioid pain medications, [...] tablet by mouth 2 times a day. uwzluoabfp-ponvyuyhigjkx-jhbuuyke 50-325-40 MG tablet Take 1 tablet by [...] Your Medications These medications were sent to [facility] - [place], [place] - [address], [facility] [address] acetaminophen 500 MG tablet bacitracin (425g jar) 500 UNIT/GM ointment Baclofen 5 MG tablet kidrmuyyub-yqgqelcrfnyrm-squkcpfd 50-325-40 MG tablet erythromycin 5 MG/GM ophthalmic ointment hydrOXYzine pamoate 25 MG capsule megestrol 40 MG/ML suspension naloxone 4 mg/0.1 mL nasal spray ondansetron ODT 4 MG disintegrating tablet oxyCODONE 5 MG immediate release tablet polyethylene glycol 17 g packet senna-docusate 8.6-50 MG tablet tamsulosin 0.4 MG 24 hr capsule Discharge Diagnosis Medical Problems Active and Resolved Hospital Problems Hospital Zygomatic arch fracture ([facility]) Overview Addendum 11/06/2024 11:20 AM by Jenny [...] * (Principal) Fall TBI (traumatic brain injury) ([facility]) Carotid stenosis ABLA (acute blood loss anemia) Hyperglycemia Acute respiratory failure with hypoxia Lactic acidosis Electrolyte abnormality MELISSA (acute kidney injury) ([facility]) Hypothyroidism Hypertension Hyperlipidemia CVA (cerebral vascular accident) ([facility]) Overweight (BMI 25.0-29.9) Debility Fracture of right orbital floor ([facility]) Malnutrition ([facility]) Overview Signed 11/06/2024 11:22 AM by Jenny [...] Note [place] Mata 64 y.o. female CSN: [id number] Admission: 10/30/2024 2:57 AM Primary Problem: Fall Anticipated Discharge Date: 11/12/24 Has Discharge Plans Changed? No Medicare Second Notice: Housing Circumstances: Not Applicable Housing Circumstances Action Taken: Other na Medically Ready for Discharge: Ready Now Additional Comments Pt anticipated to discharge today at 4pm with family transport To: [facility] Report: [phone] Discharge Summary fax: [phone] / [phone] Escribe new meds/controls to: [facility]. SW will remain available through discharge if needs arise. Reanna Hyatt FRAMING MACHINE TENDER, CLINICAL LAB SCIENTIST Sports Marketing Coordinator * Care Plan - Jazmin Burton RN [...] Review/Management: medications reviewed * Significant Event - [place], Ramez Greenfield MD - 11/11/2024 11:26 PM [...] Ramez Villegas MD General Surgery, PGY-1 Pager: [phone] 12:07 AM 11/12/2024 * Nursing Note - [...] SGT ICU [x] Tertiary 10/31 Transfer to [facility] care 11/04 * Assessment & Plan Note - Yuli Gerardo PA - 11/11/2024 2:40 PM EDTAssociated Problem(s): TBI (traumatic brain injury) SAH, IVH NSGY consult DDAVP given at OSH PMR following * Assessment & Plan Note - Yuli Gerardo PA - 11/11/2024 2:40 PM EDTAssociated Problem(s): Carotid stenosis PRINCIPAL RESEARCH ECONOMIST and MCA stenosis Resume home meds as [...] PM EDTAssociated Problem(s): CVA (cerebral vascular accident) ([facility]) PMH CVA and R sided deficits Resume [...] debility after stroke earlier this year: recommend Szmroibzxk79dk BID Improved spasticity, however meds causing nausea; [...] No further questions or concerns per patient form setter metal road forms. Edited by: Yuli Gerardo PA at 11/11/2024 [...] SGT ICU [x] Tertiary 10/31 Transfer to [facility] care 11/04 TBI (traumatic brain injury) (CMS/HCC) Present on Admission: Yes SAH, IVH NSGY consult DDAVP given at OSH PMR following Carotid stenosis Present on Admission: Yes PRINCIPAL RESEARCH ECONOMIST and MCA stenosis Resume home meds as [...] debility after stroke earlier this year: recommend Ooyywpbeqw54lq BID Improved spasticity, however meds causing nausea; [...] Edited by: Yuli Gerardo PA at 11/11/2024 2546 ANDREI Beasley * Progress Notes - Sven Hwang MD - 11/11/2024 1:12 PM EDT Physical Medicine & Rehabilitation Inpatient Consult Followup cc: Fall Subjective: Patient seen and examined at bedside, sister at bedside. States that they are discharging tomorrow to [facility] rehab. She reports pt slept more yesterday [...] Center 11/21/2024 12:45 PM Navya Woody MD [facility] Mobility Orders Mobility Protocol: Ortho/Trauma/Spine Mobility Guidelines [...] PM&R will continue to follow. Please page [phone] with any questions, or resident on-call if [...] 0.4 mg, Oral, Daily with dinner [3] kjlyvfoqmr-ocasfttqzqpiv-ygjrwkwi, 1 tablet, Oral, q6h PRN hydrOXYzine pamoate, [...] Note [place] Mata 64 y.o. female CSN: [id number] Admission: 10/30/2024 2:57 AM Primary Problem: Fall [...] to notify family at bedside. Ron Selby [phone] [phone] [facility] Rani Dodson RN * Care [...] 4:36 PM EDT Associated Problem(s): Carotid stenosis PRINCIPAL RESEARCH ECONOMIST and MCA stenosis Resume home meds as [...] EDT Associated Problem(s): CVA (cerebral vascular accident) ([facility]) PMH CVA and R sided deficits Resume [...] debility after stroke earlier this year: recommend Rqpswemopi59rs BID Improved spasticity, however meds causing nausea; [...] SGT ICU [x] Tertiary 10/31 Transfer to [facility] 11/04 TBI (traumatic brain injury) ([facility]) Present on Admission: Yes SAH, IVH NSGY consult DDAVP given at OSH PMR following Carotid stenosis Present on Admission: Yes PRINCIPAL RESEARCH ECONOMIST and MCA stenosis Resume home meds as [...] recheck as necessary MELISSA (acute kidney injury) ([facility]/HCC) Present on Admission: Yes Avoid nephrotoxic [...] debility after stroke earlier this year: recommend Zhrneqgeqk36ie BID Improved spasticity, however meds causing nausea; [...] Ongoing, Progressing 11/10/2024 1549 by Junior Naila Raiens Outcome: Ongoing, Progressing Intervention: Identify and Manage [...] Flowsheets Taken 11/10/2024 0027 by Pietro Valdovinos, director of global talent Review/Management: medications reviewed Taken 11/01/20241999 by Javi [...] Note [place] Mata 64 y.o. female CSN: [id number] Admission: 10/30/2024 2:57 AM Primary Problem: Fall Anticipated Discharge Date: 9/23 Pt removed DHT and is agreeable to eating more if family brings food from home. Provider wants to continue to monitor oral intake. Pt may need DHT replaced if unable to take in enough calories. Referrals expanded to [facility] in case pt needs DHT replaced. [...] name and and knew she was in [place]. Pt did not know the place, current [...] Mobility Bed Mobility Exam: Scooting/Bridging Level of [place]: Dependent Physical/Nonphysical Assist: Verbal Cues, Nonverbal cues (demo/gestures), Additional assist utilized for safety, Moderate cues Bed Mobility Exam: Supine to Sit Level of [place]: Maximum assist (25% patient's effort) Physical/Nonphysical Assist: Verbal Cues, Nonverbal cues (demo/gestures), Additional assist utilized for safety, HOB elevated, Moderate cues Assistive Device: Bed rails Transfers Transfer Exam: Sit to stand Level of [place]: Maximum assist (25% patient's effort) Physical/Nonphysical Assist: Verbal Cues, Nonverbal cues (demo/gestures), Additional assist utilized for safety, Moderate cues Assistive Device: Hand held assist Transfer Exam: Stand to Sit Level of [place]: Maximum assist (25% patient's effort) Physical/Nonphysical Assist: Verbal Cues, Nonverbal cues (demo/gestures), Additional assist utilized for safety, Moderate cues Assistive Device: Hand held assist Transfer Exam: Bed to Chair/Chair to Bed Level of [place]: Maximum assist (25% patient's effort) Physical/Nonphysical Assist: [...] A x 2 forsit to stand with JOB BOSS and was able to stand for 10 sec before needing to sit back down. Pt stood again with Max A x 2 JOB BOSS and was able take a side step or to the chair with Max cues and weight shifting. Pt sat unsupported in the chair for 8 min with SBA to increase core strength for functional tasks. Pt completed sit to stand with Max A x 2 with JOB BOSS and required cues for posture. Pt was [...] care tasks and functional transfers to reduce patient care burden. OT Recommendations Discharge Destination: Subacute rehab [...] Family/Caregiver: Other (Specify) (Niece entered during session.) Medicaid Service Coordinator: Not Applicable Presentation Oxygen Therapy: None (Room [...] Mobility Bed Mobility Exam: Scooting/Bridging Level of [place]: Dependent Physical/Nonphysical Assist: Verbal Cues, Nonverbal cues (demo/gestures), Additional assist utilized for safety Bed Mobility Exam: Supine to Sit Level of [place]: Maximum assist (25% patient's effort) Physical/Nonphysical Assist: [...] Transfer Exam: Sit to stand Level of [place]: Maximum assist (25% patient's effort) Physical/Nonphysical Assist: Verbal Cues, Nonverbal cues (demo/gestures), Additional assist utilized for safety Assistive Device: Hand held assist Transfer Exam: Stand to Sit Level of [place]: Maximum assist (25% patient's effort) Physical/Nonphysical Assist: Verbal Cues, Nonverbal cues (demo/gestures), Additional assist utilized for safety Assistive Device: Hand held assist Transfer Exam: Bed to Chair/Chair to Bed Level of [place]: Maximum assist (25% patient's effort) Physical/Nonphysical Assist: [...] sit to stand transfers- 2x from the [facility] and 1x from the recliner chair. SPT [...] debility after stroke earlier this year: recommend Wzuvsunmfx44at BID Improved spasticity, however meds causing nausea; [...] SGT ICU [x] Tertiary 10/31 Transfer to [facility] care 11/04 * Assessment & Plan Note - Arnoldo Savage PA - 11/09/2024 5:57 PM EDT Associated Problem(s): TBI (traumatic brain injury) SAH, IVH NSGY consult DDAVP given at OSH PMR following * Assessment & Plan Note - Arnoldo Savage PA - 11/09/2024 5:57 PM EDT Associated Problem(s): Carotid stenosis PRINCIPAL RESEARCH ECONOMIST and MCA stenosis Resume home meds as [...] EDT Associated Problem(s): CVA (cerebral vascular accident) ([facility]) PMH CVA and R sided deficits Resume [...] Edited by: Arnoldo Savage PA at 11/09/2024 1682 Relevant review of systems was obtained as [...] SGT ICU [x] Tertiary 10/31 Transfer to [facility] 11/04 TBI (traumatic brain injury) (CMS/HCC) Present on Admission: Yes SAH, IVH NSGY consult DDAVP given at OSH PMR following Carotid stenosis Present on Admission: Yes PRINCIPAL RESEARCH ECONOMIST and MCA stenosis Resume home meds as [...] debility after stroke earlier this year: recommend Uuhrkpdjdy30qj BID Improved spasticity, however meds causing nausea; [...] 11/09/2024 1600 by Katie Childers Body Position: [place] chair Taken 11/09/2024 0426 by Jennifer Ayala Skin Protection: incontinence pads utilized 11/09/2024 1650 by Junior Naila Raines Flowsheets Taken 11/09/2024 1600 by Katie Childers Body Position: [place] chair Taken 11/09/2024 0426 by Jennifer Ayala [...] Ongoing, Progressing 11/09/2024 1639 by Junior Naila Raiens Outcome: Ongoing, Progressing Intervention: Monitor Pain and [...] Raines Flowsheets Taken 11/08/20241999 by Sindi Porter, director of global talent Review/Management: medications reviewed Taken 11/01/20241999 by Javi Frank, RN Self-Care Promotion: independence encouraged 11/09/20241649 by Junior Naila Raines Flowsheets Taken 11/08/20241999 by Sindi Porter, director of global talent Review/Management: medications reviewed Taken 11/01/20241999 by Javi [...] PM&R will continue to follow. Please page [phone] with any questions, or resident on-call if [...] 0.4 mg, Oral, Daily with dinner [3] cwtuersnef-zavktkvqvojjv-lbphihqo, 1 tablet, Oral, q6h PRN hydrOXYzine pamoate, [...] saw and evaluated the patient with the medical/QUALITY ENGINEER MEDICAL DEVICE/PA student. I discussed the case with the medical/QUALITY ENGINEER MEDICAL DEVICE/PA student and agree with the findings and [...] SGT ICU [x] Tertiary 10/31 Transfer to [facility] care 11/04 * Assessment & Plan Note - Comfort Bills APRN, DNP - 11/08/2024 3:07 PM EDT Associated Problem(s): TBI (traumatic brain injury) SAH, IVH NSGY consult DDAVP given at OSH PMR following * Assessment & Plan Note - Comfort Bills APRN, DNP - 11/08/2024 3:07 PM EDT Associated Problem(s): Carotid stenosis PRINCIPAL RESEARCH ECONOMIST and MCA stenosis Resume home meds as [...] EDT Associated Problem(s): CVA (cerebral vascular accident) ([facility]) PMH CVA and R sided deficits Resume [...] debility after stroke earlier this year: recommend Oupnhnvgvh32vg BID Improved spasticity, however meds causing nausea; [...] CM reports that next available bed at [facility] is on Thursday depending on DHT and TF. If unable to go to [facility], patient and family are acceptable in going to other facilities. Discussed plan of care with patient/family, RN, CM, and Pharm D who is in understanding. No further concerns per patient or nursing. Edited by: Comfort Bills, HAND UMBRELLA TIPPER, DNP at 11/08/2024 1448 Relevant review of [...] SGT ICU [x] Tertiary 10/31 Transfer to [facility] 11/04 TBI (traumatic brain injury) (CMS/HCC) Present on Admission: Yes SAH, IVH NSGY consult DDAVP given at OSH PMR following Carotid stenosis Present on Admission: Yes PRINCIPAL RESEARCH ECONOMIST and MCA stenosis Resume home meds as [...] debility after stroke earlier this year: recommend [id number] BID Improved spasticity, however meds causing nausea; [...] Note [place]ia Mata 64 y.o. female CSN: [id number] Admission: 10/30/2024 2:57 AM Primary Problem: Fall Anticipated Discharge Date: TBD DHT remains in place. Pt has not had adequate oral intake since cyclic feeds have been DC. Pt states she has N/V. [facility] will not have a bed available until Friday 11/10. [facility] when pt is medically ready. Rani Dodson RN * Consults - Jennifer Slater RD - 11/08/2024 9:46 AM EDT Adult Nutrition Evaluation Note [place]ia Mata 64 y.o. female CSN: [id number] Room/Bed 116/116A Nutrition evaluation type: follow-up Reason for evaluation: Hospital course: 64 y.o female admitted after fall. OSH found cerebral artery hemmorhage, ad tripodfx of rt eye. Zygomatic arch rx. Plan to extubate. OR 11/01 for ORIF zygomaticomaxillary complex fracture. NANNY CAREGIVER recs Easy to chew with thin liquids. [...] (Calculated): 24.26 Weight Evaluation: Overweight (BMI 25-29.9) [place] Body Weight (kg): 52.3 Percent [place] Body Weight: 129 Adjusted Body Weight (kg): [...] Easy to Chew diet - Continue Boost [facility] TID - Will send snacks [...] from the original note were not included. [facility] Department of Otolaryngology-Head and Neck Surgery [...] Doxycycline Present on Admission: Zygomatic arch fracture ([facility]/HCC) Injury of globe of eye, right, initial encounter Fall TBI (traumatic brain injury) (CMS/HCC) Carotid stenosis ABLA (acute blood loss anemia) Hyperglycemia Acute respiratory failure with hypoxia Lactic acidosis Electrolyte abnormality MELISSA (acute kidney injury) ([facility]/HCC) Hypothyroidism Hypertension Hyperlipidemia CVA (cerebral vascular accident) (CMS/HCC) Overweight (BMI 25.0-29.9) Debility Fracture of right orbital floor ([facility]/HCC) Plan: Albania Mata is a 64 [...] Edited by: Reanna Suggs MD at 11/08/2024 3111 Dispo: ENT will now sign-off Reanna Suggs MD General ENT Adult Inpatient Coverage and New Consults Pediatric ENT Inpatient Coverage and New Consults Head and Neck Cancer/Oncology Inpatient Coverage *If the above links do not work, please either go to the On-Call Finder in [employer] for appropriate coverage Cosigned by Yobani Benoit [...] Prevention: activity supervised assistive device/personal items within [facility] fall prevention program maintained clutter-free environment maintained lighting adjusted room organization consistent safety round/check completed Problem: Functional Deficit Goal: Improved Balance and Postural Control Outcome: Ongoing, Not Progressing Intervention: Optimize Balance and Safe Activity Flowsheets (Taken 11/07/20242199) Activity Management: activity adjusted per tolerance Safety Promotion/Fall Prevention: activity supervised assistive device/personal items within [facility] fall prevention program maintained clutter-free environment [...] Develop Pain Management Plan Flowsheets (Taken 11/07/2024 8155) Pain Management Interventions: medication (see MAR) Intervention: [...] 3:03 PM EDT Associated Problem(s): Carotid stenosis PRINCIPAL RESEARCH ECONOMIST and MCA stenosis Resume home meds as appropriate in 2 weeks dt tSAH and IVH * Assessment & Plan Note - Comfort Bills APRN, DNP - 11/07/2024 3:03 PM EDT Associated Problem(s): CVA (cerebral vascular accident) ([facility]) PMH CVA and R sided deficits Resume home meds as appropriate in 2 weeks due to tSAH and IVH * Assessment & Plan Note - Comfort Bills APRN, DNP - 11/07/2024 3:03 PM EDT Associated Problem(s): Debility PT/OT following Recommend ERIKA Possible PM&R consult for 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: recommend [id number] BID Improved spasticity, however meds causing nausea; [...] visual changes. Ophthalmology following. CM reports that [facility] will accept once DHT and TF has [...] Plan: Assessment & Plan Zygomatic arch fracture ([facility]) 11/01: OR with ENT for ORIF right [...] [x] Tertiary 10/31 TBI (traumatic brain injury) ([facility]) SAH, IVH NSGY consult DDAVP given at OSH PMR consult for Thursday Carotid stenosis PRINCIPAL RESEARCH ECONOMIST and MCA stenosis Resume home meds as [...] recheck as necessary MELISSA (acute kidney injury) ([facility]) Avoid nephrotoxic agents as able and renally dose medications IVF resuscitation as needed Hypothyroidism Resume home meds as appropriate Hypertension Resume home meds as appropriate Hyperlipidemia Resume home meds as appropriate CVA (cerebral vascular accident) ([facility]) PMH CVA and R sided deficits Resume home meds as appropriate in 2 weeks due to tSAH and IVH Overweight (BMI 25.0-29.9) Could complicate hospitalization and mobility Debility PT/OT following Recommend ERIKA Possible PM&R consult for 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: recommend [id number] BID Improved spasticity, however meds causing nausea; discontinue 11/07 Fracture of right orbital floor ([facility]) 11/01: OR with ENT for right orbital floor fracture repair ENT following ; Augmentin x7 days (11/11); Sinus precautions x 2 weeks Erythromycin ointment TID Malnutrition ([facility]) DHT w/TF Discontinue TF and encourage oral [...] -Delirium precautions -PT/OT Discharge Dispo: Subacute Rehab ([facility]) Edited by: Comfort Bills APRN, DNP at [...] Mobility Bed Mobility Exam: Scooting/Bridging Level of [place]: Dependent (scoot to HOB in supine and scoot back on bed in sitting) Physical/Nonphysical Assist: Verbal Cues, Maximal cues, Additional assist utilized for safety Bed Mobility Exam: Supine to Sit Level of [place]: Maximum assist (25% patient's effort) Physical/Nonphysical Assist: Verbal Cues, Nonverbal cues (demo/gestures), Additional assist utilized for safety, HOB elevated, Maximal cues Bed Mobility Exam: Sit to Supine Level of [place]: Maximum assist (25% patient's effort) Physical/Nonphysical Assist: Verbal Cues, Additional assist utilized for safety, Maximal cues, Nonverbal cues (demo/gestures) Transfers Transfer Exam: Sit to stand Level of [place]: Maximum assist (25% patient's effort) Physical/Nonphysical Assist: Verbal Cues, Nonverbal cues (demo/gestures), Additional assist utilized for safety Assistive Device: Hand held assist Transfer Exam: Stand to Sit Level of [place]: Maximum assist (25% patient's effort) Physical/Nonphysical Assist: [...] safety, decrease caregiver burden, and return to [facility] to facilitate a safe transition home. [...] Center 11/21/2024 12:45 PM Navya Woody MD [facility] Mobility Orders Mobility Protocol: Ortho/Trauma/Spine Mobility Guidelines [...] We will continue to follow. Please page [phone] with any questions, or resident on-call if [...] saw and evaluated the patient with the medical/QUALITY ENGINEER MEDICAL DEVICE/PA student. I discussed the case with the medical/QUALITY ENGINEER MEDICAL DEVICE/PA student and agree with the findings and [...] Note Albania Mata 64 y.o. female CSN: [id number] Admission: 10/30/2024 2:57 AM Primary Problem: Fall Anticipated Discharge Date: 11/10/24 Cyclic feeds DC but DHT remains in place. Pt was [facility] accepted [facility] but the bed wasgiven away since pt was not medically ready. [place] with [facility] will let CM know [...] 11:27 AM EDT Associated Problem(s): Carotid stenosis Universal Grinder Tool and mca stenosis Resume home meds as [...] debility after stroke earlier this year: recommend [id number] BID * Progress Notes - Jenny Miller [...] Thursday Carotid stenosis Present on Admission: Yes Universal Grinder Tool and mca stenosis Resume home meds as [...] debility after stroke earlier this year: recommend [id number] BID Fracture of right orbital floor (CMS/HCC) [...] -Delirium precautions - PT/OT Discharge dispo: ERIKA ([facility]) Edited by: Jenny Miller APRN at 11/06/2024 [...] 10:42 AM EDT Associated Problem(s): Carotid stenosis Universal Grinder Tool and mca stenosis Resume home meds as [...] EDT Associated Problem(s): CVA (cerebral vascular accident) ([facility]) PMH CVA and R sided deficits Resume [...] debility after stroke earlier this year: recommend [id number] BID * Progress Notes - Jenny Miller [...] Thursday Carotid stenosis Present on Admission: Yes Universal Grinder Tool and mca stenosis Resume home meds as [...] debility after stroke earlier this year: recommend [id number] BID Fracture of right orbital floor (CMS/HCC) Present on Admission: Unknown 11/01: OR with ENT for right orbital floor fracture repair ENT following Plan: -MMPC - Augmentin and erythromycin for her eye purulence; ophtho following -DHT w/TF; d/c once tolerating 50% meals -Pulm Hygiene -Bowel reg -Sinus precautions -Delirium precautions - PT/OT Discharge dispo: ERIKA ([facility]) Edited by: Jenny Miller APRN at 11/05/2024 [...] Outcome: Ongoing, Progressing 11/05/2024 1018 by Jelly Clya RN Outcome: Ongoing, Progressing Intervention: Optimize Balance [...] the bedside, plan to transport her to [facility] by car on this day at 1630. Family and patient are agreeable to the plan. No further questions or concerns per patient form setter metal road forms. Physical therapy and occupational therapy evaluated the patient during hospitalization and recommend Subacute Rehab. At the time of discharge the patient was hemodynamically stable, tolerating PO, voiding spontaneously, normal bowel function, mobilizing appropriately, with their pain controlled with PO medication. At this time, the patient has obtained the maximum benefit from the present hospital stay, and so will be discharged to [facility]. DVT prophylaxis: Hold AC/AP for 2 weeks [...] will call with appointment date and time. [address] [place] [address], Third Floor, Wing [address], [place] [address] # [phone] Ophtho: Follow up 11/21 @ 12:25. [address], [address] [place] [address] #[phone] Neurosurgery: Clinic will contact with appointment date and time, [address] [place] [address], First Floor, Wing C, [address], [place] [address], SGT: [facility] Thursday Clinic as needed ; [facility] First Floor, Wing [address] [address], #[phone]. Questions or Concerns and Appointments If there are questions or concerns after discharge from the hospital, please call [phone] and ask for [facility] Nurse. Working hours are Thursday - Thursday 8:00 AM to 4:00 PM. After hours, weekends and holidays please call [phone] and ask for the resident marketing communications associate for [facility]. For appointments please call [phone]. Medication requests should be made between the hours of 9:00 AM to 3:00 PM Thursday thru Thursday. Please note that based upon recent changes to [place] law related to prescribing opioid pain medications, our providers will not provide refills on controlled medications after your hospital discharge following a major surgery or trauma. [place], [place] 201 KAR9:260. * Transfer of Care - Keri Patel MD - 11/04/2024 4:40 PM EDT [facility] Transfer Note Patient is being transferred from T ICU to [facility] on 11/04/24 Reason for transfer: Downgrade [...] Date Noted Fracture of right orbital floor ([facility]) 11/03/2024 Debility 11/02/2024 Overweight (BMI 25.0-29.9) 10/31/2024 Zygomatic arch fracture ([facility]) 10/30/2024 Injury of globe of eye, right, initial encounter 10/30/2024 Fall 10/30/2024 TBI (traumatic brain injury) ([facility]) 10/30/2024 Carotid stenosis 10/30/2024 ABLA (acute blood loss anemia) 10/30/2024 Hyperglycemia 10/30/2024 Acute respiratory failure with hypoxia 10/30/2024 Lactic acidosis 10/30/2024 Electrolyte abnormality 10/30/2024 MELISSA (acute kidney injury) ([facility]) 10/30/2024 Hypothyroidism 10/30/2024 Hypertension 10/30/2024 Hyperlipidemia 10/30/2024 CVA (cerebral vascular accident) ([facility]) 10/30/2024 Antibiotics: amoxicillin-clavulanate Indication and duration: - [...] exam X 15% Respiratory rate 22 13% [place] coma scale 14 4% Hematocrit abnormal (25.5 [...] Note Albania Mata 64 y.o. female CSN: [id number] Admission: 10/30/2024 2:57 AM Primary Problem: Fall Anticipated Discharge Date: TBD Pt has been accepted to rehab at [facility]. Pt/family agreeable. Per liaison, pt will need to be stable off IV pain meds for 24/hrs prior to beginning pre- cert. Will also need feeding tube removed.Will reevaluate on Thursday for readiness. Jeane Cowan, FRAMING MACHINE TENDER, CLINICAL LAB SCIENTIST Trauma/General Surgery ICU * Consults - Nahed Zarco RD - 11/04/2024 10:20 AM EDT Adult Nutrition Evaluation Note Albania Mata 64 y.o. female CSN: [id number] Room/Bed 239/239A Nutrition evaluation type: follow-up Reason for evaluation: Hospital course: 64 y.o female admitted after fall. OSH found cerebral artery hemmorhage, ad tripodfx of rt eye. Zygomatic arch rx. Plan to extubate. OR 11/01 for ORIF zygomaticomaxillary complex fracture. NANNY CAREGIVER recs Easy to chew with thin liquids. [...] Supplemental oxygen O2 Delivery Method: Nasal cannula [place] Coma Scale Score: 13 Denis Scale Score: [...] (Calculated): 26.41 Weight Evaluation: Overweight (BMI 25-29.9) [place] Body Weight (kg): 52.3 Percent [place] Body Weight: 129 Adjusted Body Weight (kg): [...] Easy to Chew diet - Continue Boost [facility] TID - TF Recs: Cyclic [...] 7:05 AM EDT Associated Problem(s): Carotid stenosis Universal Grinder Tool and mca stenosis Resume home meds as [...] EDT Associated Problem(s): CVA (cerebral vascular accident) ([facility]) PMH CVA and R sided deficits Resume [...] debility after stroke earlier this year: recommend [id number] BID * Assessment & Plan Note - [...] Edited by: Keri Patel MD at 11/04/2024 0853 Relevant review of systems was obtained as [...] OSH Carotid stenosis Present on Admission: Yes Universal Grinder Tool and mca stenosis Resume home meds as [...] debility after stroke earlier this year: recommend [id number] BID Fracture of right orbital floor (CMS/HCC) [...] Edited by: Keri Patel MD at 11/04/2024 1439 Keri Patel MD Critical Care Performed by: [...] Aggressive pulmonary toilet. On goal tube feeds. NANNY CAREGIVER evaluated and cleared for diet but PO [...] PM EDT Associated Problem(s): Zygomatic arch fracture (CMS/[facility]) 11/01: OR with ENT for ORIF right [...] 6:35 PM EDT Associated Problem(s): Carotid stenosis Universal Grinder Tool and mca stenosis Resume home meds as [...] EDT Associated Problem(s): CVA (cerebral vascular accident) ([facility]) PMH CVA and R sided deficits Resume [...] debility after stroke earlier this year: recommend [id number] BID * Assessment & Plan Note - Micheal Espinoza MD - 11/03/2024 6:35 PM EDT Associated Problem(s): Fracture of right orbital floor 11/01: OR with ENT for right orbital floor fracture repair * Progress Notes - Reanna Suggs MD - 11/03/2024 2:47 PM EDT Images from the original note were not included. [facility] Department of Otolaryngology-Head and Neck Surgery [...] canthotomy at OSH TBI (traumatic brain injury) ([facility]/HCC) Carotid stenosis ABLA (acute blood loss [...] acidosis Electrolyte abnormality MELISSA (acute kidney injury) ([facility]/HCC) Hypothyroidism Hypertension Hyperlipidemia CVA (cerebral vascular [...] Edited by: Reanna Suggs MD at 11/03/2024 6133 Dispo: ENT will continue to follow Reanna Suggs MD General ENT Adult Inpatient Coverage and New Consults Pediatric ENT Inpatient Coverage and New Consults Head and Neck Cancer/Oncology Inpatient Coverage *If the above links do not work, please either go to the On-Call Finder in [employer] for appropriate coverage Cosigned by Yobani Benoit MD at 11/03/2024 4:02 PM EDT * Clinician Note - Claudia Guerrero PT - 11/03/2024 2:38 PM EDT Physical Therapy Attempt Patient Name: Albania Mata Today's Date: 11/03/2024 Patient was attempted to be seen by physical therapy 11/03/2024 for PT Treatment however bedside care in progress (NANNY CAREGIVER). Physical therapy team will follow-up as schedule [...] OSH Carotid stenosis Present on Admission: Yes Universal Grinder Tool and mca stenosis Resume home meds as [...] debility after stroke earlier this year: recommend Trhlmoxlcy80an BID Fracture of right orbital floor (CMS/HCC) [...] 11/03/2024 10:35 AM EDT Pastoral Care Note Ceramic Tile Setter visited with patient and family, sister and niece, at bedside and provided emotional support and a prayer per family request. Pastoral care will continue to be available as needed. Referral From: Ceramic Tile Setter Initiated Pastoral Care Provided For: Patient, Sibling(s), Extended family Patient Profile: Consult Reasons: Emotional support, Family support Spiritual Assessment: Support Systems/ Spiritual Resources: [place]idana, Family, Prayer Spiritual Needs: Emotional support, Prayer, Spiritual support Spiritual Issues: Trauma/ crisis Interventions: Interventions Provided: Emotional support, Family support, Prayer, Identify yazdanism/ spiritual coping, Introduced Patient/Family to Ceramic Tile Setter Services, Supportive Listening, Spiritual support Pastoral Care Outcomes: Patient Outcomes: Demonstrates lower level of Anxious(ness), Is knowledgeable about Call Center Team Leader Services, Identifies spiritual or yazdanism practices as helpful, Appreciative of Ceramic Tile Setter Support * Consults - Malaika Carol Ann - 11/03/2024 7:52 AM EDTAssociated Order(s): IP CONSULT TO PHYSICAL MEDICINE REHAB PHYSICAL MEDICINE & REHABILITATION INPATIENT CONSULT NOTE Patient: Albania Mata : 1960 PCP: Aman Hernandez MD at [address] [address] / [facility] [id number] Payor: [employer] MEDICARE / Plan: [employer] MEDICARE [...] Children: 2 Previous Residence: lives alone in [place], [place] in a one story house with [...] patient's stroke in June she went to [facility] until August. After discharge, she had [...] Abnormal Ventricular Rate 85 Atrial Rate 85 DC Interval 146 QRSD Interval 84 QT Interval 394 QTC Interval 468 P Calder 82 R Calder 51 T Wave Calder 184 Diagnosis Poor data quality, interpretation may be adversely affected Diagnosis Normal sinus rhythm Diagnosis Possible Left atrial enlargement Diagnosis Possible Anterior infarct , age undetermined Diagnosis T wave abnormality, consider inferolateral ischemia Diagnosis Abnormal ECG Diagnosis Need clinical information and correlation Diagnosis Confirmed by Tristan Cooper ([id number]) on 10/30/2024 12:08:55 PM *Note: Due to a large number of results and/or encounters for the requested time period, some results have not been displayed. A complete set of results can be found in Results Review. Current diet (full): Dietary Orders (From admission, onward) Start Ordered 11/02/24 7761 Adult diet Diet texture: Easy to Chew [...] Center 11/21/2024 12:45 PM Navya Woody MD [facility] Mobility Orders Mobility Protocol: Ortho/Trauma/Spine Mobility Guidelines [...] We will continue to follow. Please page [phone] with any questions, or resident on-call if [...] saw and evaluated the patient with the medical/QUALITY ENGINEER MEDICAL DEVICE/PA student. I discussed the case with the medical/QUALITY ENGINEER MEDICAL DEVICE/PA student and agree with the findings and [...] Plan of Care Review 11/03/2024345 by Phoenix Crupm Outcome: Ongoing, Progressing 11/03/2024345 by Phoenix Crump [...] Phoenix Crump Outcome: Ongoing, Progressing 11/03/2024345 by Phoeinx Crump Outcome: Ongoing, Progressing Goal: Optimal Range [...] Note Albania Mata 64 y.o. female CSN: [id number] Admission: 10/30/2024 2:57 AM Primary Problem: Fall Anticipated Discharge Date: TBD Pt is with subacute rehab recs. SW presented to bedside to discuss with pt, pt was receiving bedside care at that time. SW discussed rehab recs with family who were waiting outside pt's room. Pt's son stated that family is agreeable [facility] [place] [facility], [facility], [facility]. Referrals sent on this date. SW/CM will continue to follow for resource needs and dispo p coretta. Jeane Cowan MSW, CLINICAL LAB SCIENTIST Trauma/General Surgery ICU * Progress Notes - Renetta Mascorro, CCC-NANNY CAREGIVER - 11/02/2024 3:00 PM EDT Speech Language [...] Yes Family/Caregiver: Adult Son, Other (Specify) (brother) Medicaid Service Coordinator: Not Applicable Presentation Oxygen Therapy: Supplemental oxygen [...] into standing with max assist x 2 (JOB BOSS x 2) with max cues for b/l hand and feet placement, pt was then transferred over to b/s chair, pt with significant difficulty weight shifting and advancing LE's forward - ultimately requiring max assist x 2 (JOB BOSS x 2), once in chair additional time [...] at times, pt able to transfer to [facility] chair with max assist x 2 (JOB BOSS x 2) however mobility limited due to [...] execute a self care routine, family at [facility] are incredibly supportive to pt and will [...] 2:18 PM EDT Associated Problem(s): Carotid stenosis Universal Grinder Tool and mca stenosis Resume home meds as [...] EDT Associated Problem(s): CVA (cerebral vascular accident) ([facility]) PMH CVA and R sided deficits Resume [...] exam. * Progress Notes - Radha Huff CCC-NANNY CAREGIVER - 11/02/2024 11:40 AM EDT Speech Language [...] Positionin-90 degrees Feeding assistance: total assistance from NANNY CAREGIVER or caregiver Consistencies Administered: ice chips, thin [...] by mouth Goals MBSS. Radha Huff M.A., CCC-NANNY CAREGIVER Speech-Language Pathologist * Progress Notes - Micheal [...] Edited by: Keri Patel MD at 11/02/2024 1341 Relevant review of systems was obtained as [...] Airway None O2 Delivery Method: Nasal cannula DC SUP: 10 cm H20 Insp Time (sec): 2 sec FiO2 (%): 40 % S RR: 8 DC SUP: 10 cm H20 Output by Drain [...] OSH Carotid stenosis Present on Admission: Yes Universal Grinder Tool and mca stenosis Resume home meds as [...] at noon postop labs okay DC A-line NANNY CAREGIVER eval Downgrade Edited by: Keri Patel MD [...] Edited by: Vidal Ivey MD at 11/02/2024 8465 Vidal Ivey MD [1] acetaminophen, 1,000 mg, [...] 75 mL/hr, Last Rate: 75 mL/hr (11/01/24 8394) [3] PRN medications: hydrALAZINE, HYDROmorphone OR HYDROmorphone, [...] PM EDT Operative Note Date: 11/01/24 Location: [facility] Name: Albania Mata DOB: 1960, Diagnoses: Pre-op Diagnosis Closed fracture of right zygomatic arch, initial encounter ([facility]) Post-op Diagnosis Closed fracture of right zygomatic arch, initial encounter ([facility]) Procedure(s): Open reduction internal fixation right ZMC fracture Right orbital floor fracture repair Attending Surgeon(s): Yobani Espinosa - Primary Senior Oracle Applications Developer(s): * Raquel Paiz MD - Resident - [...] BARRIER FLOOR AND WALL - [phone] - [id number] Implanted Specimen: None Findings: Right ZMC fracture repaired with a midface places along orbital rim and anterior face of maxillary sinus Right infraorbital nerve identified and preserved Right orbital floor blowout fracture repaired with SynPOR prosthesis Indications: [place] Mata is an 64 y.o. female who is having surgery for Closed fracture of rightzygomatic arch, initial encounter ([facility]). Narrative: After informed consent was obtained from [...] 10:42 AM EDT Associated Problem(s): Carotid stenosis Universal Grinder Tool and mca stenosis Resume home meds as [...] - 11/01/2024 10:42 AM EDT Associated Problem(s): EMLISSA (acute kidney injury) Avoid nephrotoxic agents as [...] EDT Associated Problem(s): CVA (cerebral vascular accident) ([facility]) PMH CVA and R sided deficits Resume [...] from the original note were not included. [facility] of Medicine Department of [...] Please call with any questions or concerns. [phone] Robbin Nielson MD Resident Physician, PGY-2 Department of Neurosurgery [facility] Cosigned by Barney Osman MD at [...] ICU Daily Progress Note 11/01/24 [place] Mata [facility] [place] Mata is a 64 y/o F [...] OSH Carotid stenosis Present on Admission: Yes Universal Grinder Tool and mca stenosis Resume home meds as [...] Family/Caregiver: Adult Son, Other (Specify) (brother, niece) Medicaid Service Coordinator: Not Applicable Presentation Oxygen Therapy: Supplemental oxygen [...] chair Home Living Comments: Pt went to [facility] following CVA in June 2024. Since then, Pt has had 24/ assistance from family at home. Prior Level of Function Receives Help From: (Family) Level of Mobility: Ambulatory- household only (primarily household since CVA, occasional trips to grocery store) Mobility [place]: Independent gait with device (rolling walker) History [...] lethargy Bed Mobility Exam: Scooting/Bridging Level of [place]: Maximum assist (25% patient's effort) Physical/Nonphysical Assist: Verbal Cues, Nonverbal cues (demo/gestures), Additional assist utilized for safety Bed Mobility Exam: Supine to Sit Level of [place]: Dependent Physical/Nonphysical Assist: Verbal Cues, Nonverbal cues (demo/gestures), Additional assist utilized for safety Bed Mobility Exam: Sit to Supine Level of [place]: (pt was left seated OOBTC) Transfers Transfer Interventions: pt was instructed on b/l hand and feet placement when transitioning to upright, pt with overall fair carryover, pt with noted to have mild/moderate increase tone throughout right LE- limiting pt's ability to transition to upright Transfer Exam: Sit to stand Level of [place]: Maximum assist (25% patient's effort) (x2) Physical/Nonphysical Assist: Verbal Cues, Nonverbal cues (demo/gestures), Additional assist utilized for safety Assistive Device: Hand held assist Transfer Exam: Stand to Sit Level of [place]: Maximum assist (25% patient's effort) (x2) Physical/Nonphysical Assist: Verbal Cues, Nonverbal cues (demo/gestures), Additional assist utilized for safety Assistive Device: Hand held assist Transfer Exam: Bed to Chair/Chair to Bed Level of [place]: Maximum assist (25% patient's effort) (x2) Physical/Nonphysical [...] Standing - Interventions: max assist x 2 (JOB BOSS x 2), pt with liimited weight bearing throughout right LE due to increase tone Dynamic Standing Balance Dynamic Standing-Balance Support: Right upper extremity support, Left upper extremity support Dynamic Standing Level of Assistance: Maximum assistance Dynamic Standing - Interventions: pt required max assist x 2 (JOB BOSS x 2) stand pivot sit transfer to [...] as pt's son, niece, and brother at [facility], prior to pt's CVA in spring pt was completely independent and independently living alone, son reports after stroke pt went to [facility] for 1 week prior to discharging [...] and most all self cares, family at [facility] extremely supportive of pt, all quesions were [...] cares and mobility 2 weeks Written by Bridegtt Cha on 10/31/24 at 4:49 PM. * [...] disc disease, Hyperlipidemia, Hypertension, Neuropathy, and Stroke (CMS/[facility]). Past Surgical History Patient has a past surgical history that includes Replacement total hip lateral position; Lung surgery; Tonsillectomy; oral surgery; Carotid stent; and Renal artery stent. Precautions Medical Precautions: Fall precautions, Sinus Subjective Pt and family agreeable to PT. Participants in Care Family/Caregiver Present: Yes Family/Caregiver: Adult Son, Other (Specify) (brother, niece) Medicaid Service Coordinator: Not Applicable Presentation Oxygen Therapy: Supplemental oxygen [...] chair Home Living Comments: Pt went to [facility] following CVA in June 2024. Since then, Pt has had 24/ assistance from family at home. Prior Level of Function Receives Help From: (Family) Level of Mobility: Ambulatory- household only (primarily household since CVA, occasional trips to grocery store) Mobility [place]: Independent gait with device (rolling walker, wears [...] following. Bed Mobility Exam: Scooting/Bridging Level of [place]: Maximum assist (25% patient's effort) Physical/Nonphysical Assist: Verbal Cues, Nonverbal cues (demo/gestures), Additional assist utilized for safety Bed Mobility Exam: Supine to Sit Level of [place]: Dependent Physical/Nonphysical Assist: Verbal Cues, Nonverbal cues [...] Transfer Exam: Sit to stand Level of [place]: Maximum assist (25% patient's effort) Physical/Nonphysical Assist: Verbal Cues, Nonverbal cues (demo/gestures), Additional assist utilized for safety Assistive Device: Hand held assist Transfer Exam: Stand to Sit Level of [place]: Maximum assist (25% patient's effort) Physical/Nonphysical Assist: Verbal Cues, Nonverbal cues (demo/gestures), Additional assist utilized for safety Assistive Device: Hand held assist Transfer Exam: Bed to Chair/Chair to Bed Level of [place]: Maximum assist (25% patient's effort) Physical/Nonphysical Assist: [...] recommendations. Standardized Assessments Standardized Assessments Standardized Assessments: [facility] 6-Clicks Mobility Assessment [facility] 6-Clicks Mobility Assessment Difficulty patient has turning [...] climbing 3-5 steps with a railing?: Unable [facility] 6-Clicks Mobility Assessment Total : 10 Assessment [...] medical record. * Consults - Back, Nahed Yoo RD - 10/31/2024 11:28 AM EDT Adult Nutrition Evaluation Note [place]ia Mata 64 y.o. female CSN: [id number] Room/Bed 239/239A Nutrition evaluation type: assessment Reason for evaluation: [facility] course: 64 y.o female admitted after [...] (Calculated): 26.41 Weight Evaluation: Overweight (BMI 25-29.9) [place] Body Weight (kg): 52.3 Percent [place] Body Weight: 129 Adjusted Body Weight (kg): [...] Interventions and Recommendations: - PO diet per NANNY CAREGIVER - TF Recs: - Impact Peptide 1.5 [...] Note [place]ia Mata 64 y.o. female CSN: [id number] Admission: 10/30/2024 2:57 AM Primary Problem: Fall Mds Manager reviewed chart and spoke with patient's son Sami at bedside to complete this Initial Case Management Assessment. Pt remained intubated in ICU level care and could not participate in conversation. PCP: Aman Hernandez MD Emergency Contact: Extended Emergency Contact Information Primary Emergency Contact: Artemio Urbina Mobile Relation: Son Secondary Emergency Contact: SalazarTrice Mobile Relation: Relative Preferred language: Khmer Medicaid Service Coordinator needed? No Insurance: Primary Visit Coverage Payer Plan Sponsor Code Group Number Group Name HUMANA MEDICARE HUMANA MEDICARE [id number] Primary Visit Coverage Subscriber Subscriber ID Subscriber Name Subscriber N Subscriber Address [id number] ALBANIA MATA R [id number] [place] [address] Patient information: Primary Caregiver: Self Accompanied by/Relationship: Son Sami Support System: Immediate family, Extended family Daily Living Activities: Functional Status: Moderate assistance Living Arrangements: Alone Type of Residence: Private residence [address] [place] [address] Smoker in the Home?: N/A Current DME: [...] Services: None reported. Living Will/Advance Directive/Power of Flight Radio Officer /Guardian: Pt's two sons are her healthcare surrogates. Copy of advanced directive in blue chart. Social Drivers of Health Food Insecurity: Patient Unable To Answer (10/31/2024) Hunger Vital Sign Worried About Running Out of Food in the Last Year: Patient unable to answer Ran Out of Food in the Last Year: Patient unable to answer Alcohol Use: Alcohol Misuse (07/20/2024) Received from [facility] AUDIT-C Q1: How often do you have [...] Tobacco Use: Medium Risk (09/01/2024) Received from [facility] Patient History Smoking Tobacco Use: Former Smokeless Tobacco Use: Never Passive Exposure: Past Transportation Needs: Patient Unable To Answer (10/31/2024) PRAPARE - Transportation Lack of Transportation (Medical): Patient unable to answer Lack of Transportation (Non-Medical): Patient unable to answer Depression: Not at risk (09/01/2024) Received from [facility] PHQ-2 Patient Health Questionnaire-2 Score: 0 Utilities: Patient Unable To Answer (10/31/2024) [facility] Utilities Threatened with loss of utilities: Patient unable to answer Stress: Not on file Intimate Partner Violence: Patient Unable To Answer (10/31/2024) Humiliation, Afraid, Rape, and Kick questionnaire Fear of Current or Ex-Partner: Patient unable to answer Emotionally Abused: Patient unable to answer Physically Abused: Patient unable to answer Sexually Abused: Patient unable to answer Physical Activity: Inactive (07/20/2024) Received from [facility] Exercise Vital Sign On average, how many days per week do you engage in moderate to strenuous exercise (like a brisk walk)?: 0 days On average, how many minutes do you engage in exercise at this level?: 0 min Social Connections: Unknown (07/20/2024) Received from [facility] Family and Community Support If for any [...] stated that pt lives at home in [place], [place]. Sami stated that pt had a stroke earlier this year and since then family members have been staying with pt and she is rarely alone for more than a couple hours. Pt was at [facility] for rehab in June. Pt is currently intubated in ICU level care. SW/CM will continue to follow for resource needs and dispoplanning. 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 UOP 0.5ml/kg/hr. Hgb 9.2 from 10.4, likely dilutional. Tmax 100.4, WBC stable, no abx. Edited by: Kerwin Johnson MD at 10/31/2024 7228 Are there limits on this patient's care [...] OSH Carotid stenosis Present on Admission: Yes Universal Grinder Tool and mca stenosis Resume home meds as [...] Please call with any questions or concerns. [phone] [place] PGY-1 Pager: [phone] Cosigned by Barney Osman MD at 10/31/2024 [...] tobacco, and illicit drug use. Lives in [place], [place]. Review of Systems 14 point review [...] with questions. Shannon Mack MD Ophthalmology Pager: [phone] [1] Past Medical History: Diagnosis Date Depression [...] were discussed: yes Alternatives discussed: No treatment [place] protocol: Imaging studies available: yes Site/side marked: [...] with hypoxia; Fall, initial encounter; Intraventricular hemorrhage ([facility]/HCC); Injury of globe of eye, right, initial encounter; Hyperlipidemia, unspecified hyperlipidemia type; Closed fracture of right zygomatic arch, initial encounter ([facility]); ABLA (acute blood loss anemia); Hypertension, unspecified [...] Tmax 98.1, not on abx. Last BM PEANUT SEPARATOR, currently NPO. Edited by: Erica Castillo, HAND UMBRELLA TIPPER at 10/30/2024 0991 Patient Active Problem List Diagnosis Date Noted Zygomatic arch fracture ([facility]/HCC) 10/30/2024 Injury of globe of eye, right, initial encounter 10/30/2024 Fall 10/30/2024 TBI (traumatic brain injury) ([facility]CC) 10/30/2024 Carotid stenosis 10/30/2024 ABLA (acute blood loss anemia) 10/30/2024 Hyperglycemia 10/30/2024 Acute respiratory failure with hypoxia 10/30/2024 Lactic acidosis 10/30/2024 Electrolyte abnormality 10/30/2024 MELISSA (acute kidney injury) ([facility]) 10/30/2024 Hypothyroidism 10/30/2024 Hypertension 10/30/2024 Hyperlipidemia 10/30/2024 CVA (cerebral vascular accident) ([facility]) 10/30/2024 Plan: Transfused PLTS, concern for transfusion [...] by: son. Risks discussed: Bleeding and infection [place] protocol: Imaging studies available: yes Site/side marked: [...] MD Resident Physician, PGY-2 Department of Neurosurgery [facility] Cosigned by Barney Osman MD at [...] Tobacco Use: Medium Risk (09/01/2024) Received from [facility] Patient History Smoking Tobacco Use: Former Smokeless Tobacco Use: Never Passive Exposure: Past Alcohol Use: Alcohol Misuse (07/20/2024) Received from [facility] AUDIT-C Q1: How often do you have [...] R hemiparesis), ASA, Plavix, HTN,HLD, carotid stent ([facility], ), DDD who presents from OSH [...] Tobacco Use: Medium Risk (09/01/2024) Received from [facility] Patient History Smoking Tobacco Use: Former Smokeless [...] Date: 10/30/24 Arrival Time: 229 Referring Hospital: [facility] Date: 10/29/24 Injury Time: 190 Transport [...] disc disease, Hyperlipidemia, Hypertension, Neuropathy, and Stroke ([facility]). Reviewed as documented above Surgical History She [...] kg (149 lb 0.5 oz), SpO2 100%. Paauilo Pa[place]ilo Coma Scale Best Eye Response: Spontaneous Best Verbal Response: None Best Motor Response: Follows commands [place] Coma Scale Score: 11 Intubated Yes Oral [...] 10/30/2024 2:30 AM EDT Pastoral Care Note Ceramic Tile Setter responded to trauma alert. Medical team tended [...] and with any changes in infusionrate. Ordered ADNIELLA KATHARINE S 10/30/24 0300 Target arousal level [...] Description 12/20/2024 2:00 PM EDT Pre-Admission Testing [facility] [address] [place] [address] 12/27/2024 7:30 AM EST Appointment [facility] Interventional Radiology [address] [place] [id number] 12/30/2024 1:00 PM EST Office Visit [facility] [address] [place] [address] Yobani Benoit MD [address] [place] [address] 02/02/2025 9:00 AM EST Appointment [facility] Radiology [address] [place] [phone] 05/24/2025 2:30 PM EDT Office Visit [facility] [address] [place] [address] Navya Woody MD [address] [facility] [address] [place] [address] 06/07/2025 2:00 PM EDT Consult [facility] [address] [place] [address] Haseeb Dias MD [address] [place] [address] Scheduled Referrals Name Type Priority Associated Diagnoses Orde r Schedule Discharge Ambulatory referral to Neurosurgery Outpatient Referral Routine Fall, initial encounter Traumatic brain injury, with unknown loss of consciousness status, initial encounter ([facility]) Expected: 11/12/2024 (Approximate), Expires: 05/16/2026 Discharge Ambulatory referral to ENT Outpatient Referral Routine Fall, initial encounter Closed fracture of zygomatic arch, unspecified laterality, initial encounter ([facility]) Expected: 11/26/2024, Expires: 05/16/2026 documented as of [...] OXYGEN THERAPY Routine 11/04/2024 8:00 AM EDT DC CRITICAL CARE, E/M 30-74 MINUTES Routine 11/04/2024 7:05 AM EDT Fall, initial encounter Electrolyte abnormality Traumatic brain injury, with unknown loss of consciousness status, initial encounter ([facility]) Acute respiratory failure with hypoxia Hypertension, unspecified [...] 3+ VIEWS Routine 11/03/2024 12:43 PM EDT DC CRITICAL CARE, E/M 30-74 MINUTES Routine 11/03/2024 11:16 AM EDT Fall, initial encounter Electrolyte abnormality Traumatic brain injury, with unknown loss of consciousness status, initial encounter ([facility]) Acute respiratory failure with hypoxia OXYGEN THERAPY [...] OXYGEN THERAPY Routine 11/02/2024 12:53 PM EDT DC CRITICAL CARE, E/M 30-74 MINUTES Routine 11/02/2024 10:25 AM EDT Fall, initial encounter Traumatic brain injury, with unknown loss of consciousness status, initial encounter ([facility]) Acute respiratory failure with hypoxia Hypertension, unspecified [...] fracture of right zygomatic arch, initial encounter ([facility]) DC OPEN RX COMPLX CHEEK BONE FRAC 11/01/2024 1:40 PM EDT Closed fracture of right zygomatic arch, initial encounter ([facility]) XR CHEST 1 VIEW STAT 11/01/2024 12:15 [...] 3+ VIEWS STAT 11/01/2024 9:55 AM EDT DC CRITICAL CARE, E/M 30-74 MINUTES Routine 11/01/2024 7:22 AM EDT Fall, initial encounter Hyperlipidemia, unspecified hyperlipidemia type Traumatic brain injury, with unknown loss of consciousness status, initial encounter ([facility]) Acute respiratory failure with hypoxia IONIZED CALCIUM, [...] EDT EXTUBATION Routine 10/31/2024 1:11 PM EDT DC CRITICAL CARE, E/M 30-74 MINUTES Routine 10/31/2024 10:48 AM EDT Intraventricular hemorrhage ([facility]) Fall, initial encounter Electrolyte abnormality ABLA (acute [...] 10/30/2024 4:02 PM EDT Fall, initial encounter DC INSERT NON-TUNNEL CV CATH Routine 10/30/2024 4:02 [...] REACTION INVESTIGATION Routine 10/30/2024 10:04 AM EDT DC CRITICAL CARE, ADDL 30 MIN Routine 10/30/2024 9:49 AM EDT Intraventricular hemorrhage (CMS/HCC) Fall, initial encounter Electrolyte abnormality ABLA (acute blood loss anemia) Closed fracture of right zygomatic arch, initial encounter ([facility]) Hyperlipidemia, unspecified hyperlipidemia type Traumatic brain injury, with unknown loss of consciousness status, initial encounter ([facility]) Acute respiratory failure with hypoxia Hypertension, unspecified type Injury of globe of eye, right, initial encounter Debility DC CRITICAL CARE, ADDL 30 MIN Routine 10/30/2024 9:49 AM EDT Intraventricular hemorrhage (CMS/HCC) Fall, initial encounter Electrolyte abnormality ABLA (acute blood loss anemia) Closed fracture of right zygomatic arch, initial encounter ([facility]) Hyperlipidemia, unspecified hyperlipidemia type Traumatic brain injury, with unknown loss of consciousness status, initial encounter ([facility]) Acute respiratory failure with hypoxia Hypertension, unspecified type Injury of globe of eye, right, initial encounter Debility HC INSERT CATH,ART,PERCUT,LOR ERM Routine 10/30/2024 9:11 AM EDT Intraventricular hemorrhage (CMS/HCC) DC INSERT CATH,ART,PERCUT,LOR ERM Routine 10/30/2024 9:11 AM [...] POCT glucose meter (11/11/2024 10:50 PM EDT) Pathologist [facility] POCT Glucose 135(H) 74 - 99 mg/dL [...] Comment 11/11/2024 10:51 PM EDT HEALTHCARE LAB Primary School Teacher ID Zackery Cohen 11/12/19 25 10:51 PM EDT HEALTHCARE LAB Device ID [id number] 11/11/2024 10:51 PM EDT HEALTHCARE LAB Specimen Type POC Capillary 11/11/2024 10:51 PM EDT HEALTHCARE LAB Blood Capillary blood specimen / Unknown 11/11/2024 10:50 PM EDT 11/11/2024 10:51 PM EDT Katharine Savage MD LAB POINT OF CARE TE ST DOCKED DEVICE UNSOLICITED RESULTS Final Result Performing Organization Address City/State/[facility] Co de Phone Number [facility] [address] [place] [address] * (ABNORMAL) Wound Culture and Gram Stain (11/04/2024 11:57 AM EDT) [facility] CULTURE READING WOUND Light Growth 11/07/2024 12:50 PM EDT [facility] CULTURE READING WOUND 1+ Methicillin-Resista nt Staphylococcus aureus(AA) [place]ER[place]N 11/07/2024 12:50 PM EDT [facility] Comment: The organism value for this result has been updated. These results have been appended to the previously preliminary verified report. Edited result: Previously reported as Staphylococcus aureus on 11/05/2024 at 0710 EDT. Staphylococcus aureus has been updated to reportable. CULTURE READING WOUND 1+ Staphylococcus epidermidis(A) [place] 11/07/2024 12:50 PM EDT [facility] Comment: This isolate has been identified using the FDA Approved [employer] [place] System The organism value for this result has been updated. These results have been appended to the previously preliminary verified report. Gram Stain Result Few Polymorphonuclear leukocytes(A) 11/07/2024 12:50 PM EDT [facility] Gram Stain Result Few Gram positive cocci in clusters(A) 11/07/2024 12:50 PM EDT [facility] Swab Skin structure / Unknown [...] GENERAL ORDERABLES Final Result Performing Organization Address City/State/[facility] Co de Phone Number [facility] [address] [place] [address] * DC CRITICAL CARE, E/M 30-74 MINUTES (11/04/2024 7:05 [...] Aggressive pulmonary toilet. On goal tube feeds. NANNY CAREGIVER evaluated and cleared for diet but PO intake remains poor. Will switch to nocturnal feeds and continue diet with protein supplementation during the day. Adequate urine output after 20mg lasix yesterday. Trial of void 11/05. Chemical VTE prophylaxis. us Micheal Espinoza MD IN CLINIC/BEDSIDE ORDERABL ES Final Result * Phosphorus (11/04/2024 12:07 AM EDT) Phosphorus, Plasma 3.6 2.5 - 4.5 mg/dL 11/04/2024 12:48 AM EDT [facility] Blood Venous blood specimen / Unknown Venipuncture / Unknown 11/04/2024 12:07 AM EDT 11/04/2024 12:16 AM EDT us Manisha FORBES LAB BLOOD ORDERABLES Final R esult [facility] [address] [place] [address] * Magnesium (11/04/2024 12:07 AM EDT) Magnesium, Plasma 2.2 1.9 - 2.4 mg/dL 11/04/2024 12:48 AM EDT [facility] Blood Venous blood specimen / Unknown Venipuncture / Unknown 11/04/2024 12:07 AM EDT 11/04/2024 12:16 AM EDT us Manisha FORBES LAB BLOOD ORDERABLES Final R esult [facility] [facility] [address] [place] [address] * (ABNORMAL) Basic metabolic panel (11/04/2024 12:07 AM EDT) Glucose, Plasma 114(H) 74 - 99 mg/dL 11/04/2024 12:48 AM EDT [facility] BUN, Plasma 21 8 - 23 mg/dL 11/04/2024 12:48 AM EDT [facility] Creatinine, Plasma 0.73 0.60 - 1.10 mg/dL 11/04/2024 12:48 AM EDT [facility] BUN/Creatinine Ratio 29 11/04/2024 12:48 AM EDT [facility] Sodium, Plasma 143 136 - 145 mmol/L 11/04/2024 12:48 AM EDT [facility] Potassium, Plasma 3.9 3.6 - 4.9 mmol/L 11/04/2024 12:48 AM EDT [facility] Chloride, Plasma 108(H) 97 - 107 mmol/L 11/04/2024 12:48 AM EDT [facility] CO2, Plasma 27 22 - 29 mmol/L 11/04/2024 12:48 AM EDT [facility] Anion Gap 8 6 - 16 mmol/L 11/04/2024 12:48 AM EDT [facility] Total Calcium, Plasma 7.9(L) 8.9 - 10.2 mg/dL 11/04/2024 12:48 AM EDT [facility] eGFRcr 90.8 mL/min/1.7 3m*2 11/04/2024 12:48 AM EDT [facility] Comment:Reported eGFRcr in m L/min/1.73m2 is based the CKD-EPI 2020 equation that does not use a race coefficient. Blood Venous blood specimen / Unknown Venipuncture / Unknown 11/04/2024 12:07 AM EDT 11/04/2024 12:16 AM EDT us Manisha FORBES LAB BLOOD ORDERABLES Final R esult [facility] [address] [place] [address] * (ABNORMAL) CBC W/O Differential (11/04/2024 12:07 AM EDT) WBC Count 7.42 3.70 - 10.30 10*3/uL LAB HEMATOLOGY METHOD 11/04/2024 12:26 AM EDT [facility] RBC Count 2.89(L) 3.90 - 5.20 10*6/uL LAB HEMATOLOGY METHOD 11/04/2024 12:26 AM EDT [facility] HGB 7.9(L) 11.2 - 15.7 g/dL LAB HEMATOLOGY METHOD 11/04/2024 12:26 AM EDT [facility] HCT 25.5(L) 34.0 - 45.0 % LAB HEMATOLOGY METHOD 11/04/2024 12:26 AM EDT [facility] Platelet Count 229 155 - 369 10*3/uL LAB HEMATOLOGY METHOD 11/04/2024 12:26 AM EDT [facility] MCV 88 79 - 98 fL LAB HEMATOLOGY METHOD 11/04/2024 12:26 AM EDT [facility] MCH 27.3 26.0 - 32.0 pg LAB HEMATOLOGY METHOD 11/04/2024 12:26 AM EDT [facility] MCHC 31.0 30.7 - 35.5 g/dL LAB HEMATOLOGY METHOD 11/04/2024 12:26 AM EDT [facility] RDW 13.6 11.5 - 14.5 % LAB HEMATOLOGY METHOD 11/04/2024 12:26 AM EDT [facility] MPV 10.8 8.8 - 12.5 fL LAB HEMATOLOGY METHOD 11/04/2024 12:26 AM EDT [facility] nRBC 0.0 <=0.0 per 100 WBCs LAB HEMATOLOGY METHOD 11/04/2024 12:26 AM EDT [facility] Blood Venous blood specimen / Unknown Venipuncture / Unknown 11/04/2024 12:07 AM EDT 11/04/2024 12:18 AM EDT us Manisha FORBES LAB BLOOD ORDERABLES Final R esult [facility] [address] [place] [address] * (ABNORMAL) CBC W/O Differential (11/03/2024 3:13 PM EDT) WBC Count 9.52 3.70 - 10.30 10*3/uL LAB HEMATOLOGY METHOD 11/03/2024 3:46 PM EDT [facility] RBC Count 3.24(L) 3.90 - 5.20 10*6/uL LAB HEMATOLOGY METHOD 11/03/2024 3:46 PM EDT [facility] HGB 8.8(L) 11.2 - 15.7 g/dL LAB HEMATOLOGY METHOD 11/03/2024 3:46 PM EDT [facility] HCT 28.3(L) 34.0 - 45.0 % LAB HEMATOLOGY METHOD 11/03/2024 3:46 PM EDT [facility] Platelet Count 255 155 - 369 10*3/uL LAB HEMATOLOGY METHOD 11/03/2024 3:46 PM EDT [facility] MCV 87 79 - 98 fL LAB HEMATOLOGY METHOD 11/03/2024 3:46 PM EDT [facility] MCH 27.2 26.0 - 32.0 pg LAB HEMATOLOGY METHOD 11/03/2024 3:46 PM EDT [facility] MCHC 31.1 30.7 - 35.5 g/dL LAB HEMATOLOGY METHOD 11/03/2024 3:46 PM EDT [facility] RDW 13.5 11.5 - 14.5 % LAB HEMATOLOGY METHOD 11/03/2024 3:46 PM EDT [facility] MPV 11.1 8.8 - 12.5 fL LAB HEMATOLOGY METHOD 11/03/2024 3:46 PM EDT [facility] nRBC 0.0 <=0.0 per 100 WBCs LAB HEMATOLOGY METHOD 11/03/2024 3:46 PM EDT [facility] Blood Venous blood specimen / Unknown Venipuncture / Unknown 11/03/2024 3:13 PM EDT 11/03/2024 3:38 PM EDT us Micheal Espinoza MD LAB BLOOD ORDERABLES Final Result [facility] [address] [place] [address] * XR Ankle Right 3+ Views (11/03/2024 [...] IMG XR PROCEDURES Final Resu lt * DC CRITICAL CARE, E/M 30-74 MINUTES (11/03/2024 11:16 [...] - 4.5 mg/dL 11/03/2024 3:24 AM EDT [facility] Blood Venous blood specimen / Unknown Venipuncture / Unknown 11/03/2024 2:08 AM EDT 11/03/2024 2:17 AM EDT us Micheal Espinoza MD LAB BLOOD ORDERABLES Final Result [facility] [address] [place] [address] * Magnesium (11/03/2024 2:08 AM EDT) Magnesium, Plasma 2.1 1.9 - 2.4 mg/dL 11/03/2024 3:24 AM EDT [facility] Blood Venous blood specimen / Unknown Venipuncture / Unknown 11/03/2024 2:08 AM EDT 11/03/2024 2:17 AM EDT us Micheal Espinoza MD LAB BLOOD ORDERABLES Final Result [facility] [address] [place] [address] * (ABNORMAL) Comprehensive metabolic panel (11/03/2024 2:08 AM EDT) Glucose, Plasma 163(H) 74 - 99 mg/dL 11/03/2024 3:24 AM EDT [facility] BUN, Plasma 22 8 - 23 mg/dL 11/03/2024 3:24 AM EDT [facility] Creatinine, Plasma 0.78 0.60 - 1.10 mg/dL 11/03/2024 3:24 AM EDT [facility] BUN/Creatinine Ratio 28 11/03/2024 3:24 AM EDT [facility] Sodium, Plasma 142 136 - 145 mmol/L 11/03/2024 3:24 AM EDT [facility] Potassium, Plasma 4.1 3.6 - 4.9 mmol/L 11/03/2024 3:24 AM EDT [facility] Chloride, Plasma 109(H) 97 - 107 mmol/L 11/03/2024 3:24 AM EDT [facility] CO2, Plasma 25 22 - 29 mmol/L 11/03/2024 3:24 AM EDT [facility] Anion Gap 8 6 - 16 mmol/L 11/03/2024 3:24 AM EDT [facility] Total Calcium, Plasma 7.9(L) 8.9 - 10.2 mg/dL 11/03/2024 3:24 AM EDT [facility] Total Protein 5.5(L) 6.3 - 7.9 g/dL 11/03/2024 3:24 AM EDT [facility] Albumin, Plasma 2.8(L) 3.5 - 5.2 g/dL 11/03/2024 3:24 AM EDT [facility] AST, Plasma 32 10 - 35 U/L 11/03/2024 3:24 AM EDT [facility] ALT, Plasma 46(H) 10 - 35 U/L 11/03/2024 3:24 AM EDT [facility] Alkaline Phosphatase, Plasma 154(H) 46 - 142 U/L 11/03/2024 3:24 AM EDT [facility] Total Bilirubin, Plasma 0.3 0.2 - 1.1 mg/dL 11/03/2024 3:24 AM EDT [facility] eGFRcr 83.9 mL/min/1.7 3m*2 11/03/2024 3:24 AM EDT [facility] Comment:Reported eGFRcr in m L/min/1.73m2 is based the CKD-EPI 2020 equation that does not use a race coefficient. Blood Venous blood specimen / Unknown Venipuncture / Unknown 11/03/2024 2:08 AM EDT 11/03/2024 2:17 AM EDT us Micheal Espinoza MD LAB BLOOD ORDERABLES Final Result [facility] [address] [place] [address] * (ABNORMAL) CBC and differential (11/03/2024 2:08 AM EDT) [facility] Signature WBC Count 7.77 3.70 - 10.30 10*3/uL LAB HEMATOLOGY METHOD 11/03/2024 2:33 AM EDT [facility] RBC Count 2.74(L) 3.90 - 5.20 10*6/uL LAB HEMATOLOGY METHOD 11/03/2024 2:33 AM EDT [facility] HGB 7.6(L) 11.2 - 15.7 g/dL LAB HEMATOLOGY METHOD 11/03/2024 2:33 AM EDT [facility] HCT 24.4(L) 34.0 - 45.0 % LAB HEMATOLOGY METHOD 11/03/2024 2:33 AM EDT [facility] Platelet Count 193 155 - 369 10*3/uL LAB HEMATOLOGY METHOD 11/03/2024 2:33 AM EDT [facility] MCV 89 79 - 98 fL LAB HEMATOLOGY METHOD 11/03/2024 2:33 AM EDT [facility] MCH 27.7 26.0 - 32.0 pg LAB HEMATOLOGY METHOD 11/03/2024 2:33 AM EDT [facility] MCHC 31.1 30.7 - 35.5 g/dL LAB HEMATOLOGY METHOD 11/03/2024 2:33 AM EDT [facility] RDW 13.7 11.5 - 14.5 % LAB HEMATOLOGY METHOD 11/03/2024 2:33 AM EDT [facility] MPV 10.8 8.8 - 12.5 fL LAB HEMATOLOGY METHOD 11/03/2024 2:33 AM EDT [facility] nRBC 0.0 <=0.0 per 100 WBCs LAB HEMATOLOGY METHOD 11/03/2024 2:33 AM EDT [facility] Differential Type Automated LAB HEMATOLOGY METHOD 11/03/2024 2:33 AM EDT [facility] Neutrophils % 72 % LAB HEMATOLOGY METHOD 11/03/2024 2:33 AM EDT [facility] Lymphocytes % 21 % LAB HEMATOLOGY METHOD 11/03/2024 2:33 AM EDT [facility] Monocytes % 5 % LAB HEMATOLOGY METHOD 11/03/2024 2:33 AM EDT [facility] Eosinophils % 2 % LAB HEMATOLOGY METHOD 11/03/2024 2:33 AM EDT [facility] Basophils % 0 % LAB HEMATOLOGY METHOD 11/03/2024 2:33 AM EDT [facility] Immature Granulocytes % 0 % LAB HEMATOLOGY METHOD 11/03/2024 2:33 AM EDT [facility] Neutrophils Absolute 5.60 1.60 - 6.10 10*3/uL LAB HEMATOLOGY METHOD 11/03/2024 2:33 AM EDT [facility] Lymphocytes Absolute 1.62 1.20 - 3.90 10*3/uL LAB HEMATOLOGY METHOD 11/03/2024 2:33 AM EDT [facility] Monocytes Absolute 0.35 0.30 - 0.90 10*3/uL LAB HEMATOLOGY METHOD 11/03/2024 2:33 AM EDT [facility] Eosinophils Absolute 0.15 0.00 - 0.50 10*3/uL LAB HEMATOLOGY METHOD 11/03/2024 2:33 AM EDT [facility] Basophils Absolute 0.02 0.00 - 0.10 10*3/uL LAB HEMATOLOGY METHOD 11/03/2024 2:33 AM EDT [facility] Immature Granulocytes Absolute 0.03 0.00 - 0.06 10*3/uL LAB HEMATOLOGY METHOD 11/03/2024 2:33 AM EDT [facility] Blood Venous blood specimen / Unknown Venipuncture / Unknown 11/03/2024 2:08 AM EDT 11/03/2024 2:24 AM EDT Narrative [facility] - 11/03/2024 2:33 AM EDT Therapeutic decision making should be based on absolute values, rather than percentages. us Micheal Espinoza MD LAB BLOOD ORDERABLES Final Result [facility] [address] [place] [address] * [place] Modified Barium Swallow (11/02/2024 3:21 [...] Carter Palomo MD on 11/02/2024 5:10 PM Micheal Espinoza MD IMG FLUOROSCOPY PROCEDURES Final Result * DC CRITICAL CARE, E/M 30-74 MINUTES (11/02/2024 10:25 [...] October 30, 2024. Face CT scan from [facility] from October 29, 2024 FINDINGS: Diagnostic Quality: [...] 7.31 - 7.42 11/01/2024 6:42 PM EDT [facility] pCO2, Arterial 46 35 - 48 mm Hg 11/01/2024 6:42 PM EDT [facility] pO2, Arterial 72(L) >80 mm Hg 11/01/2024 6:42 PM EDT [facility] SO2, Arterial 97 94 - 98 % 11/01/2024 6:42 PM EDT [facility] FIO2 50.0 % 11/01/2024 6:42 PM EDT [facility] Base Excess, Arterial 1.7 -2 - 3 mmol/L 11/01/2024 6:42 PM EDT [facility] HCO3, Arterial 27.2(H) 22 - 26 mmol/L 11/01/2024 6:42 PM T [facility] Total Hemoglobin, Arterial, Whole Blood 8.9(L) 11.2 - 15.7 g/dL 11/01/2024 6:42 PM T [facility] Hematocrit, Arterial 27.0(L) 34.0 - 45.0 % 11/01/2024 6:42 PM T [facility] Sodium, Arterial 141 136 - 145 mmol/L 11/01/2024 6:42 PM T [facility] Potassium, Arterial 4.6 3.6 - 4.9 mmol/L 11/01/2024 6:42 PM T [facility] Chloride, Whole Blood 109(H) 97 - 107 mmol/L 11/01/2024 6:42 PM T [facility] Glucose, Arterial 122(H) 74 - 99 mg/dL 11/01/2024 6:42 PM T [facility] Ionized Calcium, Arterial 5.2(H) 4.6 - 5.1 mg/dL 11/01/2024 6:42 PM T [facility] Lactate, Arterial 0.8 0.5 - 1.6 mmol/L 11/01/2024 6:42 PM T [facility] Body Temperature 37.5 Celsius 11/01/2024 6:42 PM T [facility] pH, Temp Corrected, Arterial 7.37 7.31 - 7.42 11/01/2024 6:42 PM T [facility] pCO2, Temp Corrected, Arterial 47 35 - 48 mm Hg 11/01/2024 6:42 PM T [facility] pO2, Temp Corrected, Arterial 74(L) >80 mm Hg 11/01/2024 6:42 PM T [facility] [employer] ID Edwin Sommers 11/01/2024 6:42 PM T [facility] Blood, Arterial Whole blood specimen / Unknown 11/01/2024 6:41 PM EDT 11/01/2024 6:42 PM EDT Micheal Espinoza MD LAB POINT OF CARE TEST DOCKED DEVICE UNSOLICITED RESULTS Final Result Performing Organization Address City/[facility]/ZIP Co de Phone Number [facility]ALTH[facility] [address] [place] [address] * (ABNORMAL) POCT glucose meter (11/01/2024 6:09 PM EDT) [facility] POCT Glucose 102(H) 74 - 99 mg/dL 11/01/2024 6:11 PM EDT [facility] Comment:Accuracy of a [...] Comment 11/01/2024 6:11 PM EDT [facility] [employer] ID Danitza Méndez 11/01/2024 6:11 PM EDT [facility]ALTH[facility] Device ID [id number] 11/01/2024 6:11 PM EDT [facility] Specimen Type POC Arterial 11/01/2024 6:11 PM EDT [facility] Blood Arterial blood specimen / Unknown 11/01/2024 6:09 PM EDT 11/01/2024 6:11 PM EDT Micheal Espinoza MD LAB POINT OF CARE TEST DOCKED DEVICE UNSOLICITED RESULTS Final Result Performing Organization Address [facility] Co de Phone Number [facility]ALTHCARE [facility] [address] [place] [address] * Phosphorus (11/01/2024 6:09 PM EDT) [facility] Phosphorus, Plasma 3.5 2.5 - 4.5 mg/dL 11/01/2024 6:53 PM EDT [facility] Blood Venous blood specimen / Unknown Venipuncture / Unknown 11/01/2024 6:09 PM EDT 11/01/2024 6:22 PM EDT Micheal Espinoza MD LAB BLOOD ORDERABLES Final Result Performing Organization Address City/[facility]/ZIP Co de Phone Number [facility] [address] [place] [address] * Magnesium (11/01/2024 6:09 PM EDT) Magnesium, Plasma 2.0 1.9 - 2.4 mg/dL 11/01/2024 6:53 PM EDT [facility] Blood Venous blood specimen / Unknown Venipuncture / Unknown 11/01/2024 6:09 PM EDT 11/01/2024 6:22 PM EDT us Micheal Espinoza MD LAB BLOOD ORDERABLES Final Result [facility] [address] [place] [address] * (ABNORMAL) Comprehensive metabolic panel (11/01/2024 6:09 PM EDT) Glucose, Plasma 113(H) 74 - 99 mg/dL 11/01/2024 6:53 PM EDT [facility] BUN, Plasma 14 8 - 23 mg/dL 11/01/2024 6:53 PM EDT [facility] Creatinine, Plasma 0.78 0.60 - 1.10 mg/dL 11/01/2024 6:53 PM EDT [facility] BUN/Creatinine Ratio 18 11/01/2024 6:53 PM EDT [facility] Sodium, Plasma 142 136 - 145 mmol/L 11/01/2024 6:53 PM EDT [facility] Potassium, Plasma 4.4 3.6 - 4.9 mmol/L 11/01/2024 6:53 PM EDT [facility] Chloride, Plasma 109(H) 97 - 107 mmol/L 11/01/2024 6:53 PM EDT [facility] CO2, Plasma 22 22 - 29 mmol/L 11/01/2024 6:53 PM EDT [facility] Anion Gap 11 6 - 16 mmol/L 11/01/2024 6:53 PM EDT [facility] Total Calcium, Plasma 8.7(L) 8.9 - 10.2 mg/dL 11/01/2024 6:53 PM EDT [facility] Total Protein 6.2(L) 6.3 - 7.9 g/dL 11/01/2024 6:53 PM EDT [facility] Albumin, Plasma 3.2(L) 3.5 - 5.2 g/dL 11/01/2024 6:53 PM EDT [facility] AST, Plasma 72(H) 10 - 35 U/L 11/01/2024 6:53 PM EDT [facility] ALT, Plasma 84(H) 10 - 35 U/L 11/01/2024 6:53 PM EDT [facility] Alkaline Phosphatase, Plasma 194(H) 46 - 142 U/L 11/01/2024 6:53 PM EDT [facility] Total Bilirubin, Plasma 0.7 0.2 - 1.1 mg/dL 11/01/2024 6:53 PM EDT [facility] eGFRcr 83.9 mL/min/1.7 3m*2 11/01/2024 6:53 PM EDT [facility] Comment:Reported eGFRcr in m L/min/1.73m2 is based the CKD-EPI 2020 equation that does not use a race coefficient. Blood Venous blood specimen / Unknown Venipuncture / Unknown 11/01/2024 6:09 PM EDT 11/01/2024 6:22 PM EDT us Micheal Espinoza MD LAB BLOOD ORDERABLES Final Result [facility] [address] [place] [address] * (ABNORMAL) CBC and differential (11/01/2024 6:09 PM EDT) WBC Count 9.73 3.70 - 10.30 10*3/uL LAB HEMATOLOGY METHOD 11/01/2024 6:37 PM EDT [facility] RBC Count 3.48(L) 3.90 - 5.20 10*6/uL LAB HEMATOLOGY METHOD 11/01/2024 6:37 PM EDT [facility] HGB 9.4(L) 11.2 - 15.7 g/dL LAB HEMATOLOGY METHOD 11/01/2024 6:37 PM EDT [facility] HCT 30.8(L) 34.0 - 45.0 % LAB HEMATOLOGY METHOD 11/01/2024 6:37 PM EDT [facility] Platelet Count 198 155 - 369 10*3/uL LAB HEMATOLOGY METHOD 11/01/2024 6:37 PM EDT [facility] MCV 89 79 - 98 fL LAB HEMATOLOGY METHOD 11/01/2024 6:37 PM EDT [facility] MCH 27.0 26.0 - 32.0 pg LAB HEMATOLOGY METHOD 11/01/2024 6:37 PM EDT [facility] MCHC 30.5(L) 30.7 - 35.5 g/dL LAB HEMATOLOGY METHOD 11/01/2024 6:37 PM EDT [facility] RDW 13.3 11.5 - 14.5 % LAB HEMATOLOGY METHOD 11/01/2024 6:37 PM EDT [facility] MPV 10.9 8.8 - 12.5 fL LAB HEMATOLOGY METHOD 11/01/2024 6:37 PM EDT [facility] nRBC 0.0 <=0.0 per 100 WBCs LAB HEMATOLOGY METHOD 11/01/2024 6:37 PM EDT [facility] Differential Type Automated LAB HEMATOLOGY METHOD 11/01/2024 6:37 PM EDT [facility] Neutrophils % 94 % LAB HEMATOLOGY METHOD 11/01/2024 6:37 PM EDT [facility] Lymphocytes % 4 % LAB HEMATOLOGY METHOD 11/01/2024 6:37 PM EDT [facility] Monocytes % 1 % LAB HEMATOLOGY METHOD 11/01/2024 6:37 PM EDT [facility] Eosinophils % 0 % LAB HEMATOLOGY METHOD 11/01/2024 6:37 PM EDT [facility] Basophils % 0 % LAB HEMATOLOGY METHOD 11/01/2024 6:37 PM EDT [facility] Immature Granulocytes % 1 % LAB HEMATOLOGY METHOD 11/01/2024 6:37 PM EDT [facility] Neutrophils Absolute 9.13(H) 1.60 - 6.10 10*3/uL LAB HEMATOLOGY METHOD 11/01/2024 6:37 PM EDT [facility] Lymphocytes Absolute 0.40(L) 1.20 - 3.90 10*3/uL LAB HEMATOLOGY METHOD 11/01/2024 6:37 PM EDT [facility] Monocytes Absolute 0.12(L) 0.30 - 0.90 10*3/uL LAB HEMATOLOGY METHOD 11/01/2024 6:37 PM EDT [facility] Eosinophils Absolute 0.01 0.00 - 0.50 10*3/uL LAB HEMATOLOGY METHOD 11/01/2024 6:37 PM EDT [facility] Basophils Absolute 0.01 0.00 - 0.10 10*3/uL LAB HEMATOLOGY METHOD 11/01/2024 6:37 PM EDT [facility] Immature Granulocytes Absolute 0.06 0.00 - 0.06 10*3/uL LAB HEMATOLOGY METHOD 11/01/2024 6:37 PM EDT [facility] Blood Venous blood specimen / Unknown Venipuncture / Unknown 11/01/2024 6:09 PM EDT 11/01/2024 6:27 PM EDT Narrative [facility] - 11/01/2024 6:37 PM EDT Therapeutic decision making should be based on absolute values, rather than percentages. us Micheal Espinoza MD LAB BLOOD ORDERABLES Final Result [facility] [address] [place] [address] * XR Chest 1 View (11/01/2024 12:15 [...] 7.31 - 7.42 11/01/2024 12:12 PM EDT [facility] pCO2, Arterial 43 35 - 48 mm Hg 11/01/2024 12:12 PM EDT [facility] pO2, Arterial 114 >80 mm Hg 11/01/2024 12:12 PM EDT [facility] SO2, Arterial 100(H) 94 - 98 % 11/01/2024 12:12 PM EDT [facility] FIO2 70.0 % 11/01/2024 12:12 PM EDT [facility] Base Excess, Arterial 2.4 -2 - 3 mmol/L 11/01/2024 12:12 PM EDT [facility] HCO3, Arterial 27.3(H) 22 - 26 mmol/L 11/01/2024 12:12 PM EDT [facility] Total Hemoglobin, Arterial, Whole Blood 9.0(L) 11.2 - 15.7 g/dL 11/01/2024 12:12 PM EDT [facility] Hematocrit, Arterial 27.0(L) 34.0 - 45.0 % 11/01/2024 12:12 PM EDT [facility] Sodium, Arterial 142 136 - 145 mmol/L 11/01/2024 12:12 PM EDT [facility] Potassium, Arterial 3.9 3.6 - 4.9 mmol/L 11/01/2024 12:12 PM EDT [facility] Chloride, Whole Blood 110(H) 97 - 107 mmol/L 11/01/2024 12:12 PM EDT [facility] Glucose, Arterial 91 74 - 99 mg/dL 11/01/2024 12:12 PM EDT [facility] Ionized Calcium, Arterial 4.9 4.6 - 5.1 mg/dL 11/01/2024 12:12 PM EDT [facility] Lactate, Arterial 0.7 0.5 - 1.6 mmol/L 11/01/2024 12:12 PM EDT [facility] Body Temperature 37.2 Celsius 11/01/2024 12:12 PM EDT [facility] pH, Temp Corrected, Arterial 7.41 7.31 - 7.42 11/01/2024 12:12 PM EDT [facility] pCO2, Temp Corrected, Arterial 43 35 - 48 mm Hg 11/01/2024 12:12 PM EDT [facility] pO2, Temp Corrected, Arterial 115 >80 mm Hg 11/01/2024 12:12 PM EDT [facility] [employer] Edwin Sommers 11/01/2024 12:12 PM EDT [facility] Blood, Arterial Whole blood specimen / Unknown 11/01/2024 12:10 PM EDT 11/01/2024 12:12 PM EDT Micheal Espinoza MD LAB POINT OF CARE TEST DOCKED DEVICE UNSOLICITED RESULTS Final Result Performing Organization Address City/State/[facility] Co de Phone Number [facility] [address] [place] [phone] * XR Wrist Right 3+ Views (11/01/2024 [...] Zurdo Hsieh MD on 11/01/2024 11:05 AM Micheal Espinoza MD IMG XR PROCEDURES Final Re sult * DC CRITICAL CARE, E/M 30-74 MINUTES (11/01/2024 7:22 [...] - 4.5 mg/dL 11/01/2024 12:42 AM EDT [facility] Blood Venous blood specimen / Unknown Venipuncture / Unknown 10/31/2024 11:49 PM EDT 10/31/2024 11:59 PM EDT Erica Castillo APRN LAB BLOOD ORDERABLES Final Result [facility] [address] [place] [address] * Magnesium, Plasma (10/31/2024 11:49 PM EDT) Magnesium, Plasma 1.9 1.9 - 2.4 mg/dL 11/01/2024 12:42 AM EDT [facility] Blood Venous blood specimen / Unknown Venipuncture / Unknown 10/31/2024 11:49 PM EDT 10/31/2024 11:59 PM EDT us Erica Garciaers [employer] LAB BLOOD ORDERABLES Final Result Performing Organization Address City/[facility]/ZIP Co de Phone Number [facility] [address] [place] [address] * Ionized calcium, whole blood (10/31/2024 11:49 PM EDT) Ionized Calcium, Whole Blood 4.6 4.6 - 5.1 mg/dL LAB HEMATOLOGY METHOD 11/01/2024 12:01 AM EDT [facility] Blood Venous blood specimen / Unknown Venipuncture / Unknown 10/31/2024 11:49 PM EDT 10/31/2024 11:59 PM EDT us Erica Garciaers [employer] LAB BLOOD ORDERABLES Final Result Performing Organization Address [facility] Co de Phone Number [facility] [address] [place] [address] * (ABNORMAL) CBC W/O Differential (10/31/2024 11:49 PM EDT) WBC Count 9.34 3.70 - 10.30 10*3/uL LAB HEMATOLOGY METHOD 11/01/2024 12:32 AM EDT [facility] RBC Count 2.97(L) 3.90 - 5.20 10*6/uL LAB HEMATOLOGY METHOD 11/01/2024 12:32 AM EDT [facility] HGB 8.1(L) 11.2 - 15.7 g/dL LAB HEMATOLOGY METHOD 11/01/2024 12:32 AM EDT [facility] HCT 26.5(L) 34.0 - 45.0 % LAB HEMATOLOGY METHOD 11/01/2024 12:32 AM EDT [facility] Platelet Count 179 155 - 369 10*3/uL LAB HEMATOLOGY METHOD 11/01/2024 12:32 AM EDT [facility] MCV 89 79 - 98 fL LAB HEMATOLOGY METHOD 11/01/2024 12:32 AM EDT [facility] MCH 27.3 26.0 - 32.0 pg LAB HEMATOLOGY METHOD 11/01/2024 12:32 AM EDT [facility] MCHC 30.6(L) 30.7 - 35.5 g/dL LAB HEMATOLOGY METHOD 11/01/2024 12:32 AM EDT [facility] RDW 13.2 11.5 - 14.5 % LAB HEMATOLOGY METHOD 11/01/2024 12:32 AM EDT [facility] MPV 10.7 8.8 - 12.5 fL LAB HEMATOLOGY METHOD 11/01/2024 12:32 AM EDT [facility] nRBC 0.0 <=0.0 per 100 WBCs LAB HEMATOLOGY METHOD 11/01/2024 12:32 AM EDT [facility] Blood Venous blood specimen / Unknown Venipuncture / Unknown 10/31/2024 11:49 PM EDT 10/31/2024 11:59 PM EDT Erica Castillo APRN LAB BLOOD ORDERABLES Final Result [facility] [address] [place] [address] * (ABNORMAL) Basic Metabolic Panel, Plasma (10/31/2024 11:49 PM EDT) Glucose, Plasma 133(H) 74 - 99 mg/dL 11/01/2024 12:42 AM EDT [facility] BUN, Plasma 16 8 - 23 mg/dL 11/01/2024 12:42 AM EDT [facility] Creatinine, Plasma 0.80 0.60 - 1.10 mg/dL 11/01/2024 12:42 AM EDT [facility] BUN/Creatinine Ratio 20 11/01/2024 12:42 AM EDT [facility] Sodium, Plasma 143 136 - 145 mmol/L 11/01/2024 12:42 AM EDT [facility] Potassium, Plasma 4.0 3.6 - 4.9 mmol/L 11/01/2024 12:42 AM EDT [facility] Chloride, Plasma 111(H) 97 - 107 mmol/L 11/01/2024 12:42 AM EDT [facility] CO2, Plasma 22 22 - 29 mmol/L 11/01/2024 12:42 AM EDT [facility] Anion Gap 10 6 - 16 mmol/L 11/01/2024 12:42 AM EDT [facility] Total Calcium, Plasma 7.7(L) 8.9 - 10.2 mg/dL 11/01/2024 12:42 AM EDT [facility] eGFRcr 81.4 mL/min/1.7 3m*2 11/01/2024 12:42 AM EDT [facility] Comment:Reported eGFRcr in m L/min/1.73m2 is based the CKD-EPI 2020 equation that does not use a race coefficient. Blood Venous blood specimen / Unknown Venipuncture / Unknown 10/31/2024 11:49 PM EDT 10/31/2024 11:59 PM EDT us Erica Castillo [employer] LAB BLOOD ORDERABLES Final Result Performing Organization Address City/State/[facility] Co de Phone Number [facility] [address] [place] [address] * DC CRITICAL CARE, E/M 30-74 MINUTES (10/31/2024 10:48 [...] 82 <150 mg/dL 10/31/2024 7:42 AM EDT [facility] Comment: Triglyceride Reference Range (age >17 years): Desirable: <150 mg/dL Borderline high: 150 to 199 mg/dL High: 200 to 499 mg/dL Very high: >499 mg/dL Increased risk of pancreatitis: >1000 mg/dL Fasting greater than or equal to 12 hours? No 10/31/2024 7:42 AM EDT [facility] Blood Venous blood specimen / Unknown Venipuncture / Unknown 10/31/2024 6:56 AM EDT 10/31/2024 7:09 AM EDT us Katharine Savage MD LAB BLOOD ORDERABLES Final Resul t [facility] [address] [place] [address] * (ABNORMAL) Blood gas, arterial (10/30/2024 11:11 PM EDT) pH, Arterial 7.41 7.31 - 7.42 LAB HEMATOLOGY METHOD 10/30/2024 11:19 PM EDT [facility] pCO2, Arterial 38 35 - 48 mmHg LAB HEMATOLOGY METHOD 10/30/2024 11:19 PM EDT [facility] pO2, Arterial 192 >80 mmHg LAB HEMATOLOGY METHOD 10/30/2024 11:19 PM EDT [facility] SO2, Measured, Arterial 100(H) 94 - 98 % LAB HEMATOLOGY METHOD 10/30/2024 11:19 PM EDT [facility] Base Excess, Arterial -0.2 -2.0 - 3.0 mmol/L LAB HEMATOLOGY METHOD 10/30/2024 11:19 PM EDT [facility] Bicarbonate, Calculated, Arterial 24 22 - 26 mmol/L LAB HEMATOLOGY METHOD 10/30/2024 11:19 PM EDT [facility] Hematocrit, Whole Blood 27.5(L) 34.0 - 45.0 % LAB HEMATOLOGY METHOD 10/30/2024 11:19 PM EDT [facility] Sodium, Whole Blood 140 136 - 145 mmol/L LAB HEMATOLOGY METHOD 10/30/2024 11:19 PM EDT [facility] Potassium, Whole Blood 4.0 3.6 - 4.9 mmol/L LAB HEMATOLOGY METHOD 10/30/2024 11:19 PM EDT [facility] Chloride, Whole Blood 110(H) 97 - 107 mmol/L LAB HEMATOLOGY METHOD 10/30/2024 11:19 PM EDT [facility] Glucose, Whole Blood 138(H) 74 - 99 mg/dL LAB HEMATOLOGY METHOD 10/30/2024 11:19 PM EDT [facility] Ionized Calcium, Whole Blood 4.4(L) 4.6 - 5.1 mg/dL LAB HEMATOLOGY METHOD 10/30/2024 11:19 PM EDT [facility] Lactate, Arterial, Whole Blood 1.5 0.5 - 1.6 mmol/L LAB HEMATOLOGY METHOD 10/30/2024 11:19 PM EDT [facility] Blood Arterial blood specimen / Unknown Arterial Puncture / Unknown 10/30/2024 11:11 PM EDT 10/30/2024 11:17 PM EDT us Isabelle Soto MD LAB BLOOD ORDERABLES Evelyn l Result [facility] [address] [place] [address] * Phosphorus, Plasma (10/30/2024 11:11 PM EDT) Phosphorus, Plasma 2.9 2.5 - 4.5 mg/dL 10/30/2024 11:46 PM EDT [facility] Blood Venous blood specimen / Unknown Venipuncture / Unknown 10/30/2024 11:11 PM EDT 10/30/2024 11:17 PM EDT us Erica Castillo APRN LAB BLOOD ORDERABLES Final Result [facility] [address] [place] [address] * (ABNORMAL) Magnesium, Plasma (10/30/2024 11:11 PM EDT) Magnesium, Plasma 1.8(L) 1.9 - 2.4 mg/dL 10/30/2024 11:46 PM EDT [facility] Blood Venous blood specimen / Unknown Venipuncture / Unknown 10/30/2024 11:11 PM EDT 10/30/2024 11:17 PM EDT Erica Bernstein Castillo [employer] LAB BLOOD ORDERABLES Final Result Performing Organization Address City/[facility]/ZIP Co de Phone Number [facility] [address] [place] [address] * Ionized calcium, whole blood (10/30/2024 11:11 PM EDT) Ionized Calcium, Whole Blood 4.6 4.6 - 5.1 mg/dL LAB HEMATOLOGY METHOD 10/30/2024 11:19 PM EDT [facility] Blood Venous blood specimen / Unknown Venipuncture / Unknown 10/30/2024 11:11 PM EDT 10/30/2024 11:17 PM EDT Erica Garciaers [employer] LAB BLOOD ORDERABLES Final Result [facility] [address] [place] [address] * (ABNORMAL) CBC W/O Differential (10/30/2024 11:11 PM EDT) WBC Count 9.72 3.70 - 10.30 10*3/uL LAB HEMATOLOGY METHOD 10/30/2024 11:24 PM EDT [facility] RBC Count 3.36(L) 3.90 - 5.20 10*6/uL LAB HEMATOLOGY METHOD 10/30/2024 11:24 PM EDT [facility] HGB 9.2(L) 11.2 - 15.7 g/dL LAB HEMATOLOGY METHOD 10/30/2024 11:24 PM EDT [facility] HCT 29.8(L) 34.0 - 45.0 % LAB HEMATOLOGY METHOD 10/30/2024 11:24 PM EDT [facility] Platelet Count 250 155 - 369 10*3/uL LAB HEMATOLOGY METHOD 10/30/2024 11:24 PM EDT [facility] MCV 89 79 - 98 fL LAB HEMATOLOGY METHOD 10/30/2024 11:24 PM EDT [facility] MCH 27.4 26.0 - 32.0 pg LAB HEMATOLOGY METHOD 10/30/2024 11:24 PM EDT [facility] MCHC 30.9 30.7 - 35.5 g/dL LAB HEMATOLOGY METHOD 10/30/2024 11:24 PM EDT [facility] RDW 13.1 11.5 - 14.5 % LAB HEMATOLOGY METHOD 10/30/2024 11:24 PM EDT [facility] MPV 10.1 8.8 - 12.5 fL LAB HEMATOLOGY METHOD 10/30/2024 11:24 PM EDT [facility] nRBC 0.0 <=0.0 per 100 WBCs LAB HEMATOLOGY METHOD 10/30/2024 11:24 PM EDT [facility] Blood Venous blood specimen / Unknown Venipuncture / Unknown 10/30/2024 11:11 PM EDT 10/30/2024 11:17 PM EDT Erica Castillo APRN LAB BLOOD ORDERABLES Final Result [facility] [address] [place] [address] * (ABNORMAL) Basic Metabolic Panel, Plasma (10/30/2024 11:11 PM EDT) Glucose, Plasma 145(H) 74 - 99 mg/dL 10/30/2024 11:46 PM EDT [facility] BUN, Plasma 17 8 - 23 mg/dL 10/30/2024 11:46 PM EDT [facility] Creatinine, Plasma 0.99 0.60 - 1.10 mg/dL 10/30/2024 11:46 PM EDT [facility] BUN/Creatinine Ratio 17 10/30/2024 11:46 PM EDT [facility] Sodium, Plasma 141 136 - 145 mmol/L 10/30/2024 11:46 PM EDT [facility] Potassium, Plasma 4.3 3.6 - 4.9 mmol/L 10/30/2024 11:46 PM EDT [facility] Chloride, Plasma 110(H) 97 - 107 mmol/L 10/30/2024 11:46 PM EDT [facility] CO2, Plasma 22 22 - 29 mmol/L 10/30/2024 11:46 PM EDT [facility] Anion Gap 9 6 - 16 mmol/L 10/30/2024 11:46 PM EDT [facility] Total Calcium, Plasma 8.2(L) 8.9 - 10.2 mg/dL 10/30/2024 11:46 PM EDT [facility] eGFRcr 63.0 mL/min/1.7 3m*2 10/30/2024 11:46 PM EDT [facility] Comment:Reported eGFRcr in m L/min/1.73m2 is based the CKD-EPI 2020 equation that does not use a race coefficient. Blood Venous blood specimen / Unknown Venipuncture / Unknown 10/30/2024 11:11 PM EDT 10/30/2024 11:17 PM EDT Erica Castillo APRN LAB BLOOD ORDERABLES Final Result [facility] [address] [place] [address] * (ABNORMAL) POCT glucose meter (10/30/2024 6:23 PM EDT) POCT Glucose 159(H) 74 - 99 mg/dL 10/30/2024 6:24 PM EDT [facility] Comment:Accuracy of a glucos e result [...] 10/30/2024 6:24 PM EDT [facility] [employer] ID Earline Ridley 10/30/2024 6:24 PM EDT [facility] Device ID [id number] 10/30/2024 6:24 PM EDT [facility] Specimen Type POC Arterial 10/30/2024 6:24 PM EDT [facility] Blood Arterial blood specimen / Unknown 10/30/2024 6:23 PM EDT 10/30/2024 6:24 PM EDT Isabelle Soto MD LAB POINT OF CARE TEST DOCKED DEVICE UNSOLICITED RESULTS Final Result [facility] [address] [place] [id number] * XR Chest 1 View (10/30/2024 4:11 [...] IMG XR PROCEDURES Final R esult * DC INSERT NON-TUNNEL CV CATH, HC INSERT NON-TUNNEL [...] were discussed: yes Alternatives discussed: No treatment [place] protocol: Imaging studies available: yes Site/side marked: [...] Castillo APRN LAB URINE ORDERABLES Final Result [facility] [address] [place] [address] * (ABNORMAL) Urinalysis with reflex microscopic (Culture NOT Included) (10/30/2024 2:11 PM EDT) Color, Urine Dark Yellow LAB URINALYSIS - AUTOMATED METHOD 10/30/2024 2:36 PM EDT [facility] Clarity, Urine Cloudy LAB URINALYSIS - AUTOMATED METHOD 10/30/2024 2:36 PM EDT [facility] Spec [place], Urine >1.030(H) 1.005 - 1.030 LAB URINALYSIS - AUTOMATED METHOD 10/30/2024 2:36 PM EDT [facility] pH, Urine 5.5 5.0 - 8.0 LAB URINALYSIS - AUTOMATED METHOD 10/30/2024 2:36 PM EDT [facility] Protein, Urine 100(A) Negative mg/dL LAB URINALYSIS - AUTOMATED METHOD 10/30/2024 2:36 PM EDT [facility] Glucose, Urine Negative Negative mg/dL LAB URINALYSIS - AUTOMATED METHOD 10/30/2024 2:36 PM EDT [facility] Ketones, Urine Trace(A) Negative mg/dL LAB URINALYSIS - AUTOMATED METHOD 10/30/2024 2:36 PM EDT [facility] Blood, Urine Large(A) Negative LAB URINALYSIS - AUTOMATED METHOD 10/30/2024 2:36 PM EDT [facility] Bilirubin, Urine Negative Negative LAB URINALYSIS - AUTOMATED METHOD 10/30/2024 2:36 PM EDT [facility] Urobilinogen, Urine 1.0 0.2 to 1.0 mg/dL LAB URINALYSIS - AUTOMATED METHOD 10/30/2024 2:36 PM EDT [facility] Leukocytes, Urine Trace(A) Negative LAB URINALYSIS - AUTOMATED METHOD 10/30/2024 2:36 PM EDT [facility] Nitrite, Urine Negative Negative LAB URINALYSIS - AUTOMATED METHOD 10/30/2024 2:36 PM EDT [facility] RBC, Urine >50(A) 0 to 3 /HPF LAB URINALYSIS - AUTOMATED METHOD 10/30/2024 2:36 PM EDT [facility] WBC, Urine 6 - 10(A) 0 to 5 /HPF LAB URINALYSIS - AUTOMATED METHOD 10/30/2024 2:36 PM EDT [facility] Squamous Epithelial Cells 0 - 2 0 to 5 /HPF LAB URINALYSIS - AUTOMATED METHOD 10/30/2024 2:36 PM EDT [facility] Hyaline Casts 0 - 2 0 to 5 /LPF LAB URINALYSIS - AUTOMATED METHOD 10/30/2024 2:36 PM EDT [facility] Bacteria, Urine Negative Negative LAB URINALYSIS - AUTOMATED METHOD 10/30/2024 2:36 PM EDT [facility] Urine Urine specimen from urinary conduit / Unknown Non-blood Collection / Unknown 10/30/2024 2:11 PM EDT 10/30/2024 2:16 PM EDT [facility] LAB URINE ORDERABLES Final Result Performing Organization Address City/[facility]/ZIP Co de Phone Number [facility] [address] [place] [address] * (ABNORMAL) Troponin T, High Sensitivity, 2 Hour, Plasma (10/30/2024 1:24 PM EDT) Troponin T, High Sensitivity, 2 Hour 418(H) <14 ng/L 10/30/2024 1:56 PM EDT [facility] Troponin Delta Interpretation Not Calculated 10/30/2024 1:56 PM EDT [facility] Comment:Specimen not collect ed within acceptable timeframe. Delta will not be calculated. Blood Arterial blood specimen / Unknown Arterial Puncture / Unknown 10/30/2024 1:24 PM EDT 10/30/2024 1:28 PM EDT [facility] LAB BLOOD ORDERABLES Final Result Performing Organization Address [facility]/ZIP Co de Phone Number [facility] [address] [place] [address] * CT Head wo IV Contrast (10/30/2024 [...] MD on 10/31/2024 2:45 AM Erica Castillo HAND [employer] IMG CT PROCEDURES Final Re sult * ECG Adult (10/30/2024 11:39 AM EDT) EKG DIAGNOSIS CLASS Abnormal MUSE ECG Ventricular Rate 85 BPM MUSE ECG Atrial Rate 85 BPM MUSE ECG DC Interval 146 ms MUSE ECG QRSD Interval 84 ms MUSE ECG QT Interval 394 ms MUSE ECG QTC Interval 468 ms MUSE ECG P Calder 82 degrees MUSE ECG R Calder 51 degrees MUSE ECG T Wave Calder 184 degrees MUSE ECG Diagnosis Poor data [...] MUSE ECG Diagnosis Confirmed by Tristan Cooper ([id number]) on 10/30/2024 12:08:55 PM MUSE ECG 10/30/2024 11:3 9 AM EDT 10/30/2024 12:08 PM EDT Erica Castillo HAND [employer] ECG ORDERABLES Final Resu lt Performing Organization Address City/[facility]/ZIP Co de Phone Number MUSE ECG * (ABNORMAL) Troponin T, High Sensitivity, 0 Hour Plasma, Reflex to 2 Hour (10/30/2024 11:25 AM EDT) Troponin T, High Sensitivity, 0 Hour 179(H) <14 ng/L 10/30/2024 12:01 PM EDT [facility] Blood Arterial blood specimen / Unknown Arterial Puncture / Unknown 10/30/2024 11:25 AM EDT 10/30/2024 11:32 AM EDT Erica Castillo HAND [employer] LAB BLOOD ORDERABLES Final Result Performing Organization Address [facility] Co de Phone Number [facility] [address] [place] [address] * Phosphorus (10/30/2024 11:25 AM EDT) Pathologist [facility] Phosphorus, Plasma 3.1 2.5 - 4.5 mg/dL 10/30/2024 12:01 PM EDT [facility] Blood Arterial blood specimen / Unknown Arterial Puncture / Unknown 10/30/2024 11:25 AM EDT 10/30/2024 11:32 AM EDT Erica Castillo APRN LAB BLOOD ORDERABLES Final Result Performing Organization Address City/[facility] Co de Phone Number [facility] [address] [place] [address] * (ABNORMAL) Magnesium, Plasma (10/30/2024 11:25 AM EDT) Magnesium, Plasma 1.8(L) 1.9 - 2.4 mg/dL 10/30/2024 12:01 PM EDT [facility] Blood Arterial blood specimen / Unknown Arterial Puncture / Unknown 10/30/2024 11:25 AM EDT 10/30/2024 11:32 AM EDT Erica Garciaers HAND [employer] LAB BLOOD ORDERABLES Final Result Performing Organization Address [facility]/ZIP Co de Phone Number [facility] [address] [place] [address] * Ionized calcium, whole blood (10/30/2024 11:25 AM EDT) Ionized Calcium, Whole Blood 4.7 4.6 - 5.1 mg/dL LAB HEMATOLOGY METHOD 10/30/2024 11:37 AM EDT [facility] Blood Arterial blood specimen / Unknown Arterial Puncture / Unknown 10/30/2024 11:25 AM EDT 10/30/2024 11:33 AM EDT Erica Garciaers [employer] LAB BLOOD ORDERABLES Final Result Performing Organization Address City/[facility]/ZIP Co de Phone Number [facility] [address] [place] [address] * (ABNORMAL) Basic Metabolic Panel, Plasma (10/30/2024 11:25 AM EDT) Glucose, Plasma 124(H) 74 - 99 mg/dL 10/30/2024 12:01 PM EDT [facility] BUN, Plasma 18 8 - 23 mg/dL 10/30/2024 12:01 PM EDT [facility] Creatinine, Plasma 1.12(H) 0.60 - 1.10 mg/dL 10/30/2024 12:01 PM EDT [facility] BUN/Creatinine Ratio 16 10/30/2024 12:01 PM EDT [facility] Sodium, Plasma 144 136 - 145 mmol/L 10/30/2024 12:01 PM EDT [facility] Potassium, Plasma 3.7 3.6 - 4.9 mmol/L 10/30/2024 12:01 PM EDT [facility] Chloride, Plasma 107 97 - 107 mmol/L 10/30/2024 12:01 PM EDT [facility] CO2, Plasma 23 22 - 29 mmol/L 10/30/2024 12:01 PM EDT [facility] Anion Gap 14 6 - 16 mmol/L 10/30/2024 12:01 PM EDT [facility] Total Calcium, Plasma 8.6(L) 8.9 - 10.2 mg/dL 10/30/2024 12:01 PM EDT [facility] eGFRcr 54.3 mL/min/1.7 3m*2 10/30/2024 12:01 PM EDT [facility] Comment:Reported eGFRcr in m L/min/1.73m2 is based the CKD-EPI 2020 equation that does not use a race coefficient. Blood Arterial blood specimen / Unknown Arterial Puncture / Unknown 10/30/2024 11:25 AM EDT 10/30/2024 11:32 AM EDT Erica Castillo APRN LAB BLOOD ORDERABLES Final Result [facility] [address] [place] [address] * (ABNORMAL) CBC W/O Differential (10/30/2024 11:25 AM EDT) WBC Count 9.31 3.70 - 10.30 10*3/uL LAB HEMATOLOGY METHOD 10/30/2024 11:39 AM EDT [facility] RBC Count 3.82(L) 3.90 - 5.20 10*6/uL LAB HEMATOLOGY METHOD 10/30/2024 11:39 AM EDT [facility] HGB 10.4(L) 11.2 - 15.7 g/dL LAB HEMATOLOGY METHOD 10/30/2024 11:39 AM EDT [facility] HCT 33.5(L) 34.0 - 45.0 % LAB HEMATOLOGY METHOD 10/30/2024 11:39 AM EDT [facility] Platelet Count 364 155 - 369 10*3/uL LAB HEMATOLOGY METHOD 10/30/2024 11:39 AM EDT [facility] MCV 88 79 - 98 fL LAB HEMATOLOGY METHOD 10/30/2024 11:39 AM EDT [facility] MCH 27.2 26.0 - 32.0 pg LAB HEMATOLOGY METHOD 10/30/2024 11:39 AM EDT [facility] MCHC 31.0 30.7 - 35.5 g/dL LAB HEMATOLOGY METHOD 10/30/2024 11:39 AM EDT [facility] RDW 13.0 11.5 - 14.5 % LAB HEMATOLOGY METHOD 10/30/2024 11:39 AM EDT [facility] MPV 10.0 8.8 - 12.5 fL LAB HEMATOLOGY METHOD 10/30/2024 11:39 AM EDT [facility] nRBC 0.0 <=0.0 per 100 WBCs LAB HEMATOLOGY METHOD 10/30/2024 11:39 AM EDT [facility] Blood Arterial blood specimen / Unknown Arterial Puncture / Unknown 10/30/2024 11:25 AM EDT 10/30/2024 11:32 AM EDT Erica Castillo APRN LAB BLOOD ORDERABLES Final Result [facility] [address] [place] [address] * (ABNORMAL) Blood gas panel, arterial (10/30/2024 11:25 AM EDT) pH, Arterial 7.33 7.31 - 7.42 LAB HEMATOLOGY METHOD 10/30/2024 11:36 AM EDT [facility] pCO2, Arterial 49(H) 35 - 48 mmHg LAB HEMATOLOGY METHOD 10/30/2024 11:36 AM EDT [facility] pO2, Arterial 236 >80 mmHg LAB HEMATOLOGY METHOD 10/30/2024 11:36 AM EDT [facility] SO2, Measured, Arterial 100(H) 94 - 98 % LAB HEMATOLOGY METHOD 10/30/2024 11:36 AM EDT [facility] Base Excess, Arterial -0.4 -2.0 - 3.0 mmol/L LAB HEMATOLOGY METHOD 10/30/2024 11:36 AM EDT [facility] Bicarbonate, Calculated, Arterial 26 22 - 26 mmol/L LAB HEMATOLOGY METHOD 10/30/2024 11:36 AM EDT [facility] Hematocrit, Whole Blood 31.4(L) 34.0 - 45.0 % LAB HEMATOLOGY METHOD 10/30/2024 11:36 AM EDT [facility] Sodium, Whole Blood 143 136 - 145 mmol/L LAB HEMATOLOGY METHOD 10/30/2024 11:36 AM EDT [facility] Potassium, Whole Blood 3.5(L) 3.6 - 4.9 mmol/L LAB HEMATOLOGY METHOD 10/30/2024 11:36 AM EDT [facility] Chloride, Whole Blood 107 97 - 107 mmol/L LAB HEMATOLOGY METHOD 10/30/2024 11:36 AM EDT [facility] Glucose, Whole Blood 121(H) 74 - 99 mg/dL LAB HEMATOLOGY METHOD 10/30/2024 11:36 AM EDT [facility] Ionized Calcium, Whole Blood 4.7 4.6 - 5.1 mg/dL LAB HEMATOLOGY METHOD 10/30/2024 11:36 AM EDT [facility] Lactate, Arterial, Whole Blood 2.2(H) 0.5 - 1.6 mmol/L LAB HEMATOLOGY METHOD 10/30/2024 11:36 AM EDT [facility] Blood Arterial blood specimen / Unknown Arterial Puncture / Unknown 10/30/2024 11:25 AM EDT 10/30/2024 11:33 AM EDT us Erica Castillo APRN LAB BLOOD ORDERABLES Final Result Performing Organization Address City/[facility]/ZIP Co de Phone Number [facility] [address] [place] [address] * Light Blue Top (10/30/2024 11:20 AM EDT) Extra Hold for add-ons 10/30/2024 2:02 PM EDT [facility] Comment:Auto resulted. Blood Venous blood specimen / Unknown 10/30/2024 11:20 AM EDT 10/30/2024 11:35 AM EDT us Katharine Savage MD LAB BLOOD ORDERABLES Final Resul t [facility] [address] [place] [address] * Transfusion Reaction, Pathologist Interpretation (10/30/2024 10:04 [...] 10/30/2024 10:30 AM EDT us Erica Castillo APRN LAB BLOOD BANK TEST ORDERA BLES Final Result BLOOD BANK [address] [place] [address], * (ABNORMAL) TEG Global Hemostasis with Lysis (10/30/2024 10:04 AM EDT) R, Lysis 3.3(L) 4.6 - 9.1 min 10/30/2024 11:[address] [facility] MA, Rapid, Lysis 69.0 52.0 - 70.0 mm 10/30/2024 11:23 AM EDT [facility] MA, Fibrinogen, Lysis 28.0 15.0 - 32.0 mm 10/30/2024 11:23 AM EDT [facility] LY30 0.1 0.0 - 2.6 % 10/30/2024 11:23 AM EDT [facility] Blood Arterial blood specimen / Unknown Arterial Puncture / Unknown 10/30/2024 10:04 AM EDT 10/30/2024 10:17 AM EDT Erica Bernstein Jonathan REYES LAB BLOOD ORDERABLES Final Result [facility] [address] [place] [address] * Transfusion Reaction Investigation (10/30/2024 10:04 AM [...] Comment:2 LEUKOREDUCED PLATE LETS GIVEN- [id number] D [id number]; [id number] O [id number] Donor Unit Culture Not Indicated 10/30/2024 9:10 [...] ORDERA BLES Final Result BLOOD BANK [address] [place] [address], * DC CRITICAL CARE, ADDL 30 MIN, DC CRITICAL CARE, ADDL 30 MIN (10/30/2024 9:49 [...] Q1 hour neuro exams. Isabelle Soto MD Isabelle Soto MD IN CLINIC/BEDSIDE ORDERAB LES Final Result * Transfuse platelets (10/30/2024 9:14 AM EDT) Result [facility] Erica Bernstein Jonathan REYES BLOOD TRANSFUSION ORDERABL ES Final Result * Transfuse platelets: 2 Units (10/30/2024 9:14 AM EDT) Result [facility] Erica Bernstein Jonathan REYES BLOOD TRANSFUSION ORDERABL ES Final Result * Transfuse platelets (10/30/2024 9:13 AM EDT) Result [facility] Erica Bernstein Jonathan REYES BLOOD TRANSFUSION ORDERABL ES Final Result * DC INSERT CATH,ART,PERCUT,SHORTTERM, HC INSERT CATH,ART,PERCUT,SHORTTERM (10/30/2024 9:11 AM EDT) Narrative Isabelle Soto MD - 10/30/2024 9:11 AM EDT Isabelle Soto MD 11/02/2024 10:22 AM Arterial line Performed by: Erica Castillo APRN Authorized by: Erica Castillo APRN Consent: Consent obtained: Written Consent given by: son. Risks discussed: Bleeding and infection [place] protocol: Imaging studies available: yes Site/side marked: [...] completion: Tolerated well, no immediate complications Result [facility] Erica Castillo APRN IV THERAPY ORDERABLES Evelyn l Result * (ABNORMAL) POCT arterial blood gas gem (10/30/2024 8:49 AM EDT) pH, Arterial 7.39 7.31 - 7.42 10/30/2024 8:50 AM EDT [facility] pCO2, Arterial 40 35 - 48 mm Hg 10/30/2024 8:50 AM EDT [facility] pO2, Arterial 70(L) >80 mm Hg 10/30/2024 8:50 AM [facility] SO2, Arterial 96 94 - 98 % 10/30/2024 8:50 AM [facility] FIO2 40.0 % 10/30/2024 8:50 AM [facility] Base Excess, Arterial -0.7 -2 - 3 mmol/L 10/30/2024 8:50 AM [facility] HCO3, Arterial 24.2 22 - 26 mmol/L 10/30/2024 8:50 AM [facility] Total Hemoglobin, Arterial, Whole Blood 9.4(L) 11.2 - 15.7 g/dL 10/30/2024 8:50 AM [facility] Hematocrit, Arterial 28.0(L) 34.0 - 45.0 % 10/30/2024 8:50 AM [facility] Sodium, Arterial 141 136 - 145 mmol/L 10/30/2024 8:50 AM [facility] Potassium, Arterial 3.6 3.6 - 4.9 mmol/L 10/30/2024 8:50 AM [facility] Chloride, Whole Blood 107 97 - 107 mmol/L 10/30/2024 8:50 AM [facility] Glucose, Arterial 128(H) 74 - 99 mg/dL 10/30/2024 8:50 AM [facility] Ionized Calcium, Arterial 4.6 4.6 - 5.1 mg/dL 10/30/2024 8:50 AM [facility] Lactate, Arterial 2.2(H) 0.5 - 1.6 mmol/L 10/30/2024 8:50 AM [facility] Body Temperature 36.2 Celsius 10/30/2024 8:50 AM [facility] pH, Temp Corrected, Arterial 7.40 7.31 - 7.42 10/30/2024 8:50 AM [facility] pCO2, Temp Corrected, Arterial 39 35 - 48 mm Hg 10/30/2024 8:50 AM [facility] pO2, Temp Corrected, Arterial 66(L) >80 mm Hg 10/30/2024 8:50 AM [facility] [employer] Teacher ID Asiya Pereiraine 10/30/2024 8:50 AM [facility] Blood, Arterial Whole blood specimen / Unknown 10/30/2024 8:49 AM EDT 10/30/2024 8:50 AM EDT us Katharine Savage MD LAB POINT OF CARE TE ST DOCKED DEVICE UNSOLICITED RESULTS Final Result Performing Organization Address City/[facility]/ZIP Co de Phone Number [facility] [address] [place] [address] * Prepare Leukocyte Reduced Platelets: 2 Units (10/30/2024 7:15 AM EDT) Product Code [id number] CH BLOO D BANK Dispense Status Transfused BLOOD BANK Blood Expiration Date [id number] BLOOD BANK Unit Number [id number] CH B LOOD BANK Product Blood Type 7300 BLOOD BANK Blood Type B+ CH BLOOD BANK Product Code [id number] CH BLOO D BANK Dispense Status Transfused BLOOD BANK Blood Expiration Date [id number] BLOOD BANK Unit Number [id number] CH B LOOD BANK Product Blood Type 6200 BLOOD BANK Blood Type A+ CH BLOOD BANK Blood Venous blood specimen / Unknown us Erica Castillo APRN BLOOD BANK PRODUCT ORDERAB LES Final Result Performing Organization Address [facility] Co de Phone Number BLOOD BANK [address] [place] [address] * (ABNORMAL) Lactate, venous (10/30/2024 6:45 AM EDT) Lactate, Venous, Whole Blood 2.8(H) 0.5 - 2.2 mmol/L LAB HEMATOLOGY METHOD 10/30/2024 6:58 AM EDT [facility] Blood Venous blood specimen / Unknown Venipuncture / Unknown 10/30/2024 6:45 AM EDT 10/30/2024 6:57 AM EDT us Chirag Zambrano PA LAB BLOOD ORDERABLES Final Res ult Performing Organization Address City/[facility]/ZIP Co de Phone Number [facility] [address] [place] [address] * Phosphorus (10/30/2024 6:45 AM EDT) Phosphorus, Plasma 3.2 2.5 - 4.5 mg/dL 10/30/2024 7:24 AM EDT [facility] Blood Venous blood specimen / Unknown Venipuncture / Unknown 10/30/2024 6:45 AM EDT 10/30/2024 6:51 AM EDT Chirag S Nintexhernandez PA LAB BLOOD ORDERABLES Final Res ult [facility] [address] [place] [address] * (ABNORMAL) Magnesium (10/30/2024 6:45 AM EDT) Magnesium, Plasma 1.8(L) 1.9 - 2.4 mg/dL 10/30/2024 7:24 AM EDT [facility] Blood Venous blood specimen / Unknown Venipuncture / Unknown 10/30/2024 6:45 AM EDT 10/30/2024 6:51 AM EDT Chirag Nintexhernandez PA LAB BLOOD ORDERABLES Final Res ult [facility] [address] [place] [address] * (ABNORMAL) Basic Metabolic Panel, Plasma (10/30/2024 6:45 AM EDT) Glucose, Plasma 119(H) 74 - 99 mg/dL 10/30/2024 7:24 AM EDT [facility] BUN, Plasma 15 8 - 23 mg/dL 10/30/2024 7:24 AM EDT [facility] Creatinine, Plasma 1.00 0.60 - 1.10 mg/dL 10/30/2024 7:24 AM EDT [facility] BUN/Creatinine Ratio 15 10/30/2024 7:24 AM EDT [facility] Sodium, Plasma 139 136 - 145 mmol/L 10/30/2024 7:24 AM EDT [facility] Potassium, Plasma 4.5 3.6 - 4.9 mmol/L 10/30/2024 7:24 AM EDT [facility] Comment:Hemolyzed, result ma y be falsely increased. Chloride, Plasma 105 97 - 107 mmol/L 10/30/2024 7:24 AM EDT [facility] CO2, Plasma 23 22 - 29 mmol/L 10/30/2024 7:24 AM EDT [facility] Anion Gap 11 6 - 16 mmol/L 10/30/2024 7:24 AM EDT [facility] Total Calcium, Plasma 8.8(L) 8.9 - 10.2 mg/dL 10/30/2024 7:24 AM EDT [facility] eGFRcr 62.3 mL/min/1.7 3m*2 10/30/2024 7:24 AM EDT [facility] Comment:Reported eGFRcr in m L/min/1.73m2 is based the CKD-EPI 2020 equation that does not use a race coefficient. Blood Venous blood specimen / Unknown Venipuncture / Unknown 10/30/2024 6:45 AM EDT 10/30/2024 6:51 AM EDT us Chirag FORBES LAB BLOOD ORDERABLES Final Res ult [facility] [address] [place] [address] * (ABNORMAL) CBC W/O Differential (10/30/2024 6:45 AM EDT) WBC Count 12.35(H) 3.70 - 10.30 10*3/uL LAB HEMATOLOGY METHOD 10/30/2024 7:21 AM EDT [facility] RBC Count 3.73(L) 3.90 - 5.20 10*6/uL LAB HEMATOLOGY METHOD 10/30/2024 7:21 AM EDT [facility] HGB 10.3(L) 11.2 - 15.7 g/dL LAB HEMATOLOGY METHOD 10/30/2024 7:21 AM EDT [facility] HCT 32.9(L) 34.0 - 45.0 % LAB HEMATOLOGY METHOD 10/30/2024 7:21 AM EDT [facility] Platelet Count 218 155 - 369 10*3/uL LAB HEMATOLOGY METHOD 10/30/2024 7:21 AM EDT [facility] MCV 88 79 - 98 fL LAB HEMATOLOGY METHOD 10/30/2024 7:21 AM EDT [facility] MCH 27.6 26.0 - 32.0 pg LAB HEMATOLOGY METHOD 10/30/2024 7:21 AM EDT [facility] MCHC 31.3 30.7 - 35.5 g/dL LAB HEMATOLOGY METHOD 10/30/2024 7:21 AM EDT [facility] RDW 12.9 11.5 - 14.5 % LAB HEMATOLOGY METHOD 10/30/2024 7:21 AM EDT [facility] MPV 10.6 8.8 - 12.5 fL LAB HEMATOLOGY METHOD 10/30/2024 7:21 AM EDT [facility] nRBC 0.0 <=0.0 per 100 WBCs LAB HEMATOLOGY METHOD 10/30/2024 7:21 AM EDT [facility] Blood Venous blood specimen / Unknown Venipuncture / Unknown 10/30/2024 6:45 AM EDT 10/30/2024 6:51 AM EDT us Chirag FORBES LAB BLOOD ORDERABLES Final Res ult [facility] [address] [place] [address] * CT Head wo IV Contrast (10/30/2024 [...] Detected Not Detected 10/31/2024 4:57 AM EDT [facility] Swab (Axilla and Groin) Non-blood Collection / Unknown 10/30/2024 4:47 AM EDT 10/30/2024 4:59 AM EDT Narrative [facility] - 10/31/2024 4:57 AM EDT This PCR assay was developed and its performance characteristics determined by [facility] as appropriate for clinical purposes. This assay has not been cleared or approved by the FDA, but is performed in a CLIA regulated laboratory that is qualified to perform high-complexity testing. Chirag S Imhernandez ND LAB MICROBIOLOGY - GENERAL ORD ERABLES Final Result Performing Organization Address [facility] Co de Phone Number [facility] [address] [place] [address] * Multi Drug Resistance Test (10/30/2024 4:47 AM EDT) Pathologist [facility] Culture No growth at day 1 10/31/2024 6:[address] [facility] Swab (Nares and Marley Rectal) Non-blood Collection / Unknown 10/30/2024 4:47 AM EDT 10/30/2024 4:58 AM EDT Narrative [facility] - 10/31/2024 6:37 AM EDT This test was developed and its performance characteristics determined by the [facility]. Although the media is FDA-approved, it is not FDA-approved for all specimen types submitted. The FDA has determined that such clearance or approval is not necessary. This test is used for surveillance purposes. It should not be regarded as investigational or for research. The [facility] is certified under the Clinical Laboratory Improvement Amendments of 1988 (CLIA-88) as qualified to perform high complexity clinical laboratory testing. [facility] - GENERAL ORD ERABLES Final Result Performing Organization Address [facility] Co de Phone Number [facility] [address] [place] [address] * (ABNORMAL) POCT glucose meter (10/30/2024 3:18 AM EDT) Pathologist [facility] POCT Glucose 125(H) 74 - 99 mg/dL 10/30/2024 3:20 AM EDT [facility] Comment:Accuracy of a glucos e result [...] Comment 10/30/2024 3:20 AM EDT [facility] [employer] Teacher ID Doug Loya 3:20 AM EDT [facility] LAB Device ID [id number] 10/30/2024 3:20 AM EDT [facility] Specimen Type POC Capillary 10/30/2024 3:20 AM EDT [facility] Blood Capillary blood specimen / Unknown 10/30/2024 3:18 AM EDT 10/30/2024 3:20 AM EDT Generic Provider Poct LAB POINT OF CARE TEST DOCKED DEVICE UNSOLICITED RESULTS Final Result Performing Organization Address City/[facility]/ZIP Co de Phone Number [facility]ALTH[facility] LAB [address] [place] [address] * Type and Screen (10/30/2024 2:43 AM EDT) ABO/Rh O Positive 10/30/2024 4:18 AM EDT BLOOD BANK Comment:DOWNTIME RESULT ENTR Y : [id number] Antibody Screen Negative 10/30/2024 4:18 AM EDT BLOOD BANK Comment:DOWNTIME RESULT ENTR Y: [id number] Specimen Expiration 11/02/2024 23:59 10/30/2024 4:18 AM EDT BLOOD BANK Blood Venous blood specimen / Unknown Venipuncture / Unknown 10/30/2024 2:43 AM EDT 10/30/2024 4:35 AM EDT Katharine Savage MD LAB BLOOD BANK TEST ORDERABLES E dited Result - Final BLOOD BANK [address] [place] [address], * Gold Top (10/30/2024 2:40 AM EDT) Extra Hold for add-ons 10/30/2024 6:02 AM EDT [facility] Comment:Auto resulted. Blood Venous blood specimen / Unknown 10/30/2024 2:40 AM EDT 10/30/2024 3:32 AM EDT Iker Reagan MD LAB BLOOD ORDERABLES Final Result [facility] [address] [place] [address] * Gold Top (10/30/2024 2:40 AM EDT) Extra Hold for add-ons 10/30/2024 6:02 AM EDT [facility] Comment:Auto resulted. Blood Venous blood specimen / Unknown 10/30/2024 2:40 AM EDT 10/30/2024 3:32 AM EDT Iker Reagan MD LAB BLOOD ORDERABLES Final Result Performing Organization Address City/[facility]/ZIP Co de Phone Number [facility] [address] [place] [address] * Alcohol Profile Plasma (10/30/2024 2:40 AM EDT) Pathologist [facility] Methanol Plasma <10 <10 mg/dL 7:04 AM EDT [facility] Acetone Plasma <10 <10 mg/dL 10/30/2024 7:04 AM EDT [facility] Isopropanol Plasma <10 <10 mg/dL 10/30/2024 7:04 AM EDT [facility] Ethanol Plasma <10 <10 mg/dL 10/30/2024 7:04 AM EDT [facility] Blood Venous blood specimen / Unknown Venipuncture / Unknown 10/30/2024 2:40 AM EDT 10/30/2024 3:22 AM EDT Narrative [facility] - 10/30/2024 7:04 AM EDT Test performed by Gas Chromatography at the [facility]. This test was developed and its performance characteristics determined by [facility]. It has not been cleared or approved by the FDA.The laboratory is regulated under CLIA as qualified to perform high-complexity testing. This test is used for clinical purposes only. us Katharine Savage MD LAB BLOOD ORDERABLES Final Resul t Performing Organization Address [facility]/ZIP Co de Phone Number [facility] [address] [place] [address] * Protime-INR (10/30/2024 2:40 AM EDT) Prothrombin Time 10/30/2024 4:59 AM EDT [facility] Comment: aPTT <20. Notified Baron Sofia of result correction. Corrected result: Previously reported as 13.9 sec on 10/30/2024 at 0336 EDT. INR LAB COAGULATION METHOD 10/30/2024 4:59 AM EDT [facility] Comment: aPTT <20. Notified Baron Sofia of result correction. Corrected result: Previously reported as 1.1 on 10/30/2024 at 0336 EDT. Blood Venous blood specimen / Unknown Venipuncture / Unknown 10/30/2024 2:40 AM EDT 10/30/2024 3:12 AM EDT Narrative [facility] - 10/30/2024 4:59 AM EDT aPTT <20. Notified Baron Sofia of result correction. us Katharine Savage MD LAB BLOOD ORDERABLES Edited Resu lt - Final Performing Organization Address [facility] Co de Phone Number [facility] [address] [place] [address] * (ABNORMAL) CBC W/O Differential (10/30/2024 2:40 AM EDT) WBC Count 18.78(H) 3.70 - 10.30 10*3/uL LAB HEMATOLOGY METHOD 10/30/2024 3:15 AM EDT [facility] RBC Count 4.41 3.90 - 5.20 10*6/uL LAB HEMATOLOGY METHOD 10/30/2024 3:15 AM EDT [facility] HGB 12.0 11.2 - 15.7 g/dL LAB HEMATOLOGY METHOD 10/30/2024 3:15 AM EDT [facility] HCT 38.2 34.0 - 45.0 % LAB HEMATOLOGY METHOD 10/30/2024 3:15 AM EDT [facility] Platelet Count 278 155 - 369 10*3/uL LAB HEMATOLOGY METHOD 10/30/2024 3:15 AM EDT [facility] MCV 87 79 - 98 fL LAB HEMATOLOGY METHOD 10/30/2024 3:15 AM EDT [facility] MCH 27.2 26.0 - 32.0 pg LAB HEMATOLOGY METHOD 10/30/2024 3:15 AM EDT [facility] MCHC 31.4 30.7 - 35.5 g/dL LAB HEMATOLOGY METHOD 10/30/2024 3:15 AM EDT [facility] RDW 12.6 11.5 - 14.5 % LAB HEMATOLOGY METHOD 10/30/2024 3:15 AM EDT [facility] MPV 10.1 8.8 - 12.5 fL LAB HEMATOLOGY METHOD 10/30/2024 3:15 AM EDT [facility] nRBC 0.0 <=0.0 per 100 WBCs LAB HEMATOLOGY METHOD 10/30/2024 3:15 AM EDT [facility] Blood Venous blood specimen / Unknown Venipuncture / Unknown 10/30/2024 2:40 AM EDT 10/30/2024 3:12 AM EDT us Katharine Savage MD LAB BLOOD ORDERABLES Final Resul t [facility] [address] [place] [address] * (ABNORMAL) Blood gas, venous (10/30/2024 2:40 AM EDT) pH, Venous 7.31(L) 7.32 - 7.43 LAB HEMATOLOGY METHOD 10/30/2024 3:18 AM EDT [facility] pCO2, Venous 53(H) 37 - 52 mmHg LAB HEMATOLOGY METHOD 10/30/2024 3:18 AM EDT [facility] pO2, Venous 33 25 - 40 mmHg LAB HEMATOLOGY METHOD 10/30/2024 3:18 AM EDT [facility] SO2, Measured, Venous 51(L) 65 - 80 % LAB HEMATOLOGY METHOD 10/30/2024 3:18 AM EDT [facility] Base Excess, Venous -0.4 -2.0 - 3.0 mmol/L LAB HEMATOLOGY METHOD 10/30/2024 3:18 AM EDT [facility] Bicarbonate, Calculated, Venous 27(H) 22 - 26 mmol/L LAB HEMATOLOGY METHOD 10/30/2024 3:18 AM EDT [facility] Hematocrit, Whole Blood 37.6 34.0 - 45.0 % LAB HEMATOLOGY METHOD 10/30/2024 3:18 AM EDT [facility] Sodium, Whole Blood 140 136 - 145 mmol/L LAB HEMATOLOGY METHOD 10/30/2024 3:18 AM EDT [facility] Potassium, Whole Blood 4.2 3.6 - 4.9 mmol/L LAB HEMATOLOGY METHOD 10/30/2024 3:18 AM EDT [facility] Chloride, Whole Blood 103 97 - 107 mmol/L LAB HEMATOLOGY METHOD 10/30/2024 3:18 AM EDT [facility] Glucose, Whole Blood 125(H) 74 - 99 mg/dL LAB HEMATOLOGY METHOD 10/30/2024 3:18 AM EDT [facility] Lactate, Venous, Whole Blood 3.3(H) 0.5 - 2.2 mmol/L LAB HEMATOLOGY METHOD 10/30/2024 3:18 AM EDT [facility] Ionized Calcium, Whole Blood 4.7 4.6 - 5.1 mg/dL LAB HEMATOLOGY METHOD 10/30/2024 3:18 AM EDT [facility] Blood Venous blood specimen / Unknown Venipuncture / Unknown 10/30/2024 2:40 AM EDT 10/30/2024 3:11 AM EDT us Katharine Savage MD LAB BLOOD ORDERABLES Final Resul t [facility] [address] [place] [address] * XR Pelvis 1 or 2 Views [...] and unspecified hyperlipidemia CVA (cerebral vascular accident) ([facility]) Unspecified cerebral artery occlusion with cerebral infarction Overweight (BMI 25.0-29.9) Overweight Closed fracture of right zygomatic arch, initial encounter ([facility]) documented in this encounter Admitting Diagnoses Diagnosis Intraventricular hemorrhage ([facility]) documented in this encounter Administered Medications Inactive [...] Given 11/11/2024 8:42 AM EDT 5 mg illcefuzjn-cxdryuoxulddj-nirj eine 50-325-40 MG per tablet 1 tablet [...] EDT 75 mcg lidocaine-EPINEPHrine (Xylocaine W/EPI) 1 %-1:111923 injection As needed, Starting on Thu11/01/24 at [...] Routine 0839 (Given - Provider: Jelly Clay RN)2145 (Given - Provider: Pietro Valdovinos, LUANNE) 08 (Given - Provider: Andreea Dean RN)2127 [...] Jelly Clay RN)2200 (Given - Provider: Pietro Valdovinos, LUANNE) 1304 (Given - Provider: Andreea Dean RN)2051 [...] Routine 0840 (Given - Provider: Jelly Clay RN)2145 (Given - Provider: Pietro Valdovinos RN) 0842 (Given - Provider: Andreea Dean RN)204 (Given - Provider: Jazmin Burton RN) enoxaparin [...] Valdovinos RN) 0537 (Given - Provider: Pietro Y Aruna, RN) 0509 (Given - Provider: Jazmin Burton RN) megestrol (Megace) 40 MG/ML suspension 400 mg [...] 2048 (Given - Provider: Jazmin Burton RN) mupirocin (Bactroban) 2 % ointment 1 Application (COMPLETED) Each Nostril, 2 times daily, 3 doses, First dose (after last reorder) on Thu11/09/24 at 2245, Last dose on Thu11/10/24 at 2100, Routine 0839 (Given - Provider: eJlly Clay RN)1999 (Given - Provider: Pietro Valdovinos RN) polyethylene glycol (Miralax) packet 17 g 17 g, Oral, 2 times daily, First dose (after last modification) on Thu11/03/24 at 2100, Until Discontinued, Routine 0822 (Not Given - Provider: Jelly Clay RN - Reason: Hold for condition: must add comment - Comment: multiple bm)2215 (Not Given - Provider: Pietro Valdovinos RN [...] Valdovinos RN) 2048 (Given - Provider: Jazmin Josephine, RN) senna-docusate (Marley-Colace) 8.6-50 MG per tablet 2 tablet 2 tablet, Oral, 2 times daily, First dose (after last modification) on Bia 11/03/24 at 2100, Until Discontinued, Routine 0822 (Not Given - Provider: Jelly Clay RN - Reason: Epidural Placement or Removal - Comment: multiple bm)2215 (Not Given - Provider: Pietro Valdovinos RN - Reason: Patient/family refused) 08 (Not Given - Provider: Andreea Dean RN - Reason: Hold for condition: must add comment - Comment: bm)2046 (Given - Provider: Jazmin Burton, LUANNE) 925 (Given - Provider: Melony Maldonado) tamsulosin [...] order) PRN Medication Order 11/10/2024 11/11/2024 11/12/2024 [id number]-yimhwtedqljar-mfg feine 50-325-40 MG per tablet 1 tablet 1 tablet, Oral, Every 6 hours PRN, Starting on Thu11/08/24 at 1327, Until 11/12/24 at 1807, Routine, headaches hydrOXYzine pamoate (Vistaril) capsule 25 mg 25 mg, Oral, Every 8 hours PRN, Starting on Thu11/02/24 at 1646, Until 11/12/24 at 1807, Routine, itching 0000 (Given - Provider: Pietro Valdovinos RN)2258 (Given - Provider: Pietro Valdovinos RN) [...] - Provider: Pietro Valdovinos RN)0907 [facility] - Provider: Jelly Clay RN)2258 (Given - Provider: Pietro Valdovinos RN) 0842 (Given - Provider: Andreea Dean RN)2047 (Given - Provider: Jazmin Burton, LUANNE) Linked [...] documented as of this encounter Care Teams Marine Steward Relationship Specialty Start Date End Date Aman Hernandez MD [address] [address] PCP - General Family Medicine 06/18/21 documented as of this encounter
--- OUTSIDE RECORDS SUMMARY | 2024-11-01 13:55 | XMS_ITS | Encounter Summary ---
Author Organization Healthcare Address [address] [place] [address] Care Team Providers Care Employee Benefits Director Name Role Phone Aman Hernandez MD Primary Care Provider Reason for Visit * Auth/Cert (Routine) Specialty Diagnoses / Procedures Referred By Contac t Referred To Contact Diagnoses Intraventricular hemorrhage (CMS/HCC) Fall, Retrobulbar hematoma, brain bleed Katharine Savage MD [address] [facility] [address] [place] [address] Phone: tel: fax: [facility] Inpatient [address] [place] [address] Phone: tel: Referral ID Status Reason Start Date Expiration Date Visits Re quested Visits Authorized [id number] 1 1 Encounter Details Date Type Department Care Team (Late st Contact Info) Description 11/01/2024 1:55 PM EDT Anesthesia Event [facility] OPERATING ROOM [address] [place] [address] Vernon Lim MD [address] [place] [address] Jelly Tapia PA [address] [facility] [address] [place] [address] Anesthesia Record Procedure Summary Procedure [...] Earline Ridley RN 11/12/24 0430 by Jazmin Burton RN Peripheral IV Orientation: Anterio r, Left; [...] 11/09/24; Removal Time: 0141 10/30/[address] 11/09/24 0141 by Sindi Porter [...] any time in the past 12 [address] [place] [place], were you homeless or living in a half-way (including now)? Patient unable to answer 10/31/2024 [facility] Utilities Answer Date Recorded In the past [...] ABG No results found for: PHART , YAB0OHY , PO2ART , SO2ART , BEART , GFF2KNN , HCTART , SODIUMART , POTASSIUMART , [...] Plan was reviewed with: attending, resident and SHOP MECHANIC Anesthesia technique(s) discussed with the patient/family: general Anesthesia plan agreed upon was: general Anesthetic plan and risks discussed with patient and healthcare power of family law attorney. Use of blood products discussed with patient and healthcare power of family law attorney who consented to blood products. ROS [...] Description 12/20/2024 2:00 PM EDT Pre-Admission Testing [facility] [address], [address] [place] [address] 12/27/2024 7:30 AM EST Appointment [facility] Interventional Radiology [address] [place] [address] 12/30/2024 1:00 PM EST Office Visit [facility] Otol[facility] [address] [place] [id number] Yobani Benoit MD [address] [facility] [address] [place] [address] 02/02/2025 9:00 AM EST Appointment [facility] Radiology [address] [place] [address] 05/24/2025 2:30 PM EDT Office Visit [facility] [address] [place] [address] Navya Woody MD [address] [place] [address] 06/07/2025 2:00 PM EDT Consult [facility] [address] [place] [address] Haseeb Dias MD [address] [address] [place] [address] documented as of this encounter Procedures Procedure Name Priority Date/Time Associated Diagnosis Comments PB ANESTHESIA PLACEHOLDER Routine 11/01/2024 2:10 PM EDT OR AN ELECTIVE ENDOTRACHEAL AIRWAY Routine 11/01/2024 2:10 PM EDT documented in this encounter Results * OR AN ELECTIVE ENDOTRACHEAL AIRWAY, PB ANESTHESIA PLACEHOLDER (11/01/2024 2:10 PM EDT) Narrative Masha Juraod CRNA - 11/01/2024 2:10 PM EDT Masha Jurado CRNA 11/01/2024 2:30 PM Airway Date/Time: 11/01/2024 2:10 PM Reason: elective Airway not difficult General Information and Staff Patient location during procedure: OR Performed: SHOP MECHANIC Patient Condition Indications for airway management: anesthesia [...] Noted Time PHQ-9 Depression Total Score: 24 05/21/2 024 3:18 PM EDT A fall risk assessment has been complete d for the patient 07/08/2021 2:00 PM EDT A Body Mass Index follow-up plan has been documented for the patient 11/12/2024 2:21 PM EDT documented as of this encounter Care Teams Employee Benefits Director Relationship Specialty Start Date End Date Aman Hernandez MD [address] [facility] [address] [place] [address] PCP - General Family Medicine 06/18/21 documented as of this encounter
--- OUTSIDE RECORDS SUMMARY | 2024-11-15 10:30 | XMS_ITS ---
Author Organization [facility] D [facility] Address [address] [facility] [address] [place] [address] Care Team Providers Care Wastewater Treatment Engineer Name Role Phone Yonny Scott Primary Care Provider Reanna Perdomo [phone] Allergies Allergen (clinical drug ingredient) Drug/Non Drug Allergy documented on EMR Reaction Allergy Type Onset Date Status Penicillin Unknown Drug Allergy Active REASON FOR VISIT [facility] Medications Medication SIG (Take, Route, Frequency, [...] Notes Problem Late effects of cerebrovascular disease (968187310) History of CVA with residual deficit (I69.30) Active confirmed Problem Recurrent falls (630007952) Frequent falls (R29.6) Active confirmed Problem Chronic pain (91890399) Other chronic pain (G89.29) Active confirmed Vital Signs Temperature 97.3 degrees Fahrenheit 11/16/19 25 Blood pressure systolic 129 mm Hg 11/16/19 25 Blood pressure diastolic 59 mm Hg 025 Heart Rate 70 /min 11/15/2024 Height 63.5 in 11/15/2024 Weight 121 lbs 11/15/2024 BMI 21.1 kg/m2 11/15/2024 Encounters Encounter Location Date Provider Diagnosis [address] [address] 11/15/2024 Reanna Perdomo Multiple closed frac tures [...] 4 Weeks, Reason: Progress Notes * [place] JORDNA RaeDOB:[birth year] (64 yo F)Acc No.[id number]:11/15/2024 Patient: [place] CHISHOLM Rae Provider: MADELIN Reid :1960 A ge:64 Y S ex:Female Date:11/15/2024 Address:[address] [facility] [address], [id number] Pcp:Yonny Scott Subjective: * Chief Complaints: * 1 . [place] [facility] Admission. * HPI: I ntrim History: Transition [...] discontinued, changed or added). Seen today at [place] for transition from [facility]. Admitted there after sufferring a fall, [...] down kidneys , rt hip replacement 07/28/2016, [facility]- stroke 11/2022, [facility] 05/2024, Stroke 07/19/2024, [facility] - fall with facial trauma 10/2024. [...] 11/15/2024 Generated for Mik olmos/Karen/Gina on: 1 12:45 PM EDT History and Physical Notes * HPI (History of Present Illness) Category Sub-Category Detail Notes Category Not es [place] History Transition of care visit from hospital Date of admission to hospital:: 10/30/2024 Seen today at [place] for transition from [facility]. Admitted there after sufferring a fall, [...]
--- OUTSIDE RECORDS SUMMARY | 2024-11-16 05:30 | XMS_ITS ---
Author Organization [facility] Address [address] [facility] [address] [facility] [address] [place] [address] Care Team Providers Care Manager Account Management Name Role Phone Yonny Scott Primary Care Provider [phone] Reanna Perdomo [phone] REASON FOR VISIT 6 wk FU Encounters Encounter Location Date Provider Diagnosis [facility] [address] [facility] [address] [facility] [address] [place], [place] [address] 11/16/2024 Yonny Scott Plan Of Treatment No Information Progress Notes * [place] JORDAN RaeDOB:[birth year] (64 yo F)Acc No.[id number]:11/16/2024 Progress Notes Patient: [place] CHISHOLM Provider: Day Scott MD :1960 A ge:64 Y S ex:Female Date:11/16/2024 [address]1944 [address] [id number] Subjective: * Chief Complaints: * 1 . 6 wk FU. * Medical History: Objective: * Vitals: Assessment: Plan: * Treatment: * * Electronic signature of William Scott MD FAAP on 12/19/2024 at 12:46 PM EDT Sign off status: Pending * Provider: Day Scott MD Date: 0 11/16/2024 Generated for Printi ng/Faxing/eTransmitting on: 1 12:46 PM EDT
--- OUTSIDE RECORDS SUMMARY | 2024-11-25 13:15 | XMS_ITS | Encounter Summary ---
Author Organization Healthcare Address [address] [place] [address] Care Team Providers Care Comb Machine Operator Name Role Phone Aman Hernandez MD Primary Care Provider Reason for Referral * Consultation (Urgent) - Closed Specialty Diagnoses / Procedures Referred By Zoe guevara Referred To Contact Ophthalmology Diagnoses Injury of globe of eye, right, initial encounter Yobani Benoit MD [address] [facility] [address] [place] [address] Phone: tel: fax: [facility] [address] [place] [address] Phone: tel: fax: Referral ID Status Reason Start Date Expiration Date V isits Requested Visits Authorized [id number] Closed Specialty Services Required 11/25/2024 05/27/2026 1 1 Scheduling Instructions Please schedule patient within one week. Patient with acute vision loss, seen inpatient by ophtho. Previous appointments rescheduled/cancelled seems to have been a misunderstanding Reason for Visit * Reason Comments Post-op * Consultation (Routine) - Closed Specialty Diagnoses / Procedures Referred By Contac t Referred To Contact Otolaryngology Diagnoses Fall, initial encounter Closed fracture of zygomatic arch, unspecified laterality, initial encounter Charles Velasco, ABSTRACT MANAGER [address] [facility] [address] [place] [address] Phone: tel: fax: [facility] [address] [place] [address] Phone: tel: fax: Referral ID Status Reason Start Date Expiration Date V isits Requested Visits Authorized [id number] Closed Specialty Services Required 11/12/2024 05/14/2026 1 1 Encounter Details Date Type Department Care Team (Late st Contact Info) Description 11/25/2024 1:15 PM EDT Office Visit [facility] [address] [place] [address] Yobani Benoit MD [address] [facility] [address] [place] [address] Injury of globe of eye, right, initial encounter (Primary Dx); Closed fracture of right zygomatic arch with routine healing, subsequent encounter Social History Tobacco Use Types Packs/Day [...] any time in the past 12 m [facility], were you homeless or living in a correction (including now)? Patient unable to answer 10/31/2024 [facility] Utilities Answer Date Recorded In the past 12 months has e [employer], gas, oil, or water [employer] threatened to shut off services in your [...] Sign Reading Time Taken Comments Blood Pressure 103/65 11/25/2024 1:42 PM EDT Pulse 88 11/25/2024 1:42 PM EDT Temperature - - Respiratory Rate - - Oxygen Saturation - - Inhaled Oxygen Concentration - - Weight 58.5 kg (129 lb) 11/25/2024 1:42 PM EDT Height 157.5 cm (5' 2 ) 11/25/2024 1:42 PM EDT Body Mass Index 23.59 11/25/2024 1:42 PM EDT documented in this encounter Miscellaneous Notes * Progress Notes - Andrew De La Fuente MD - 11/25/2024 1:15 PM EDT [place] Mata is a 64 year old female with a medical history significant for prior CVA with resultant right hemiparesis, as well as peripheral arterial disease with carotid stent and use of Plavix who presented to the emergency department on 10/30 after an unwitnessed fall resulting in a right zygoma ticomaxillary complex fracture and right orbital floor fracture. Notably, she had orbital trauma and underwent a lateral canthotomy at an outside hospital prior to her presentation to . She was admitted to the trauma surgery for further evaluation and observation; her other injuries included a subarachnoid hemorrhage and intraventricular hemorrhage. She underwent open reduction and internal fixation of these fractures on 11/01. Postoperatively, her course was complicated by pupillary changes, apparent changes in visual acuity, and some restriction in extraocular movements. Ophthalmology was consulted for evaluation, but patient had significantly altered mental status and limited ability to participate in exam. She presents today for follow up after discharge on 11/12. She was discharged to subacute rehab, and her family, who accompanies her today, report that she has made substantial improvements since working with rehab. However, she was unable to make an appointment with a neuro-wellness assistant which was scheduled a few days ago on 11/21 and had been previously established for evaluation of visual changes related to a stroke several months ago. She has been continuing to use erythromycin eye ointment to the right eye, which he feels is helping with some occasional dryness in that eye. She reports sensitivity to light perception but otherwise minimal visual acuity in her right eye. 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 Her extraocular movements appear intact, and pupils are equal, round, and reactive to light. Her bony contour appears symmetric and significantly improved from pre-operatively. There is some dehiscence of the right intra-oral incision with some visible hardware. I reviewed her post-operative CT from 11/02 which demonstrates appropriate post- op changes with hardware in good position. From a fracture standpoint, she appears to be generally healing well after her ORIF right ZMC and orbital floor. However, she continues to endorse minimal vision in the right eye which is not her pre-injury baseline; unfortunately she has not been able to follow-up with ophthalmology, and we will place an urgent referral. I also encouraged them to reach out if they have not heard about an appointment in the next few days. We discussed that she should continue keeping the right eye moist until she is able to have her canthotomy repaired. I would like to see her back in about 4 weeks to ensure that her intraoral incision continues to heal and that she has been able to follow-up about her eye. Cosigned by Yobani Benoit MD at 12/01/2024 3:54 PM EDT Associated attestation - Yobani Benoit MD - 12/01/2024 3:54 PM EDT I saw and evaluated the patient with the resident/fellow. I discussed the case with the resident/fellow and agree with the findings and plan as documented. documented in this encounter Plan of Treatment Upcoming Encounters Date Type Department Care Team (Latest Contact Info) Description 12/20/2024 2:00 PM EDT Pre-Admission Testing [facility] [address] [place] [address] 12/27/2024 7:30 AM EST Appointment [facility] [address] [place] [address] 12/30/2024 1:00 PM EST Office Visit [facility] [address] [place] [phone] Yobani Benoit MD [address] [facility] [address] [place] [address] 02/02/2025 9:00 AM EST Appointment [facility] [address] [place] [address] 05/24/2025 2:30 PM EDT Office Visit [facility] [address] [place] [phone] Navya Woody MD [address] [facility] [address] [place] [address] 06/07/2025 2:00 PM EDT Consult [facility] [address] [place] [phone] Haseeb Dias MD [address] [facility] [address] [place] [address] Scheduled Referrals Name Type Priority Associated Diagnoses Order Schedule Ambulatory referral to Ophthalmology Outpatient Referral Routine Injury of globe of eye, right, initial encounter Expected: 11/25/2024 (Approximate), Expires: 05/29/2026 documented as of this encounter Visit Diagnoses Diagnosis Injury of globe of eye, right, initial encounter- Primary Closed fracture of right zygomatic arch with routine healing, subsequent encounter documented in this encounter Additional Health Concerns [...] documented as of this encounter Care Teams Comb Machine Operator Relationship Specialty Start Date End Date Aman Hernandez MD [address] [phone] PCP - General Family Medicine 06/18/21 documented as of this encounter
--- OUTSIDE RECORDS SUMMARY | 2024-11-29 08:00 | XMS_ITS ---
Author Organization [facility] [place] Address [address] [facility] [address] [place] [address] Care Team Providers Care Internal Specialist Name Role Phone Yonny Scott Primary Care Provider Reanna Perdomo [phone] Allergies Allergen (clinical drug ingredient) Drug/Non Drug Allergy documented on EMR Reaction Allergy Type Onset Date Status Penicillin Unknown Drug Allergy Active REASON FOR VISIT [facility] Medications Medication SIG (Take, Route, Frequency, Duration) Notes Start Date End Date Status Atorvastatin Calcium 40 MG 1 tablet Oral ly Once a day; Duration: 90 days Active Aspirin 81 MG 1 tablet Orally Once a day Active Baclofen 5 MG 1 tablet Orally twic e a day Active Mirtazapine 15 MG 1 tablet at bedtime Orally Once a day; Duration: 90 days 07/11/2024 Active Erythromycin 5 MG/GM 1 application into the lower eyelid of affected eye Ophthalmic Four times a day Active Losartan Potassium 50 MG 1 tablet Orally Once a day Active Multigen Folic 70-150-2-1 MG 1 tablet Orally Once a day Active Furosemide 20 MG 1 tablet Orally Once a day Active Tamsulosin HCl 0.4 MG 1 capsule Orally O nce a day Active FLUoxetine HCl 20 mg TAKE 1 CAPSULE BY M OUTH ONCE A DAY; Duration: 30 Active Levothyroxine Sodium 75 MCG 1 tablet in the morning on an empty stomach Orally Once a day; Duration: 30 days 09/26/2024 Active QUEtiapine Fumarate 150 MG 1 tablet at b edtime Orally Once a day 08/22/2024 Active Clopidogrel Bisulfate 75 MG 1 tablet Colette candelaria Once a day; Duration: 90 days 08/31/2024 Active Vital Signs Temperature 98.3 degrees Fahrenheit 11/30/19 25 Blood pressure systolic 113 mm Hg 11/30/19 25 Blood pressure diastolic 72 mm Hg 025 Heart Rate 91 /min 11/29/2024 Height 63.5 in 11/29/2024 Weight 128.8 lbs 11/29/2024 BMI 22.46 kg/m2 11/29/2024 Encounters Encounter Location Date Provider Diagnosis [address] [address] 11/29/2024 Reanna Perdomo Multiple closed frac tures of [...] G25.81 ; PVD (peripheral vascular disease) I73.9 and Other chronic pain G89.29 Assessments Encounter Date Diagnosis (ICD Code) Assessment Notes Treatment Notes Treatment Clinical Notes Section Notes 11/29/2024 Multiple closed fractures of facial bone, sequela (ICD-10 - S02.92XS) Plan is to discharge home with sister at the end of the week. Recommend continue PT/OT. Hospital bed for assistance with mobility, edema, prevention of aspiration. Antibiotics and sinus precautions completed. Continue AC for stroke prevention and PVD management. FU with ENT recommended 11/29/2024 Other specified postprocedural states (ICD-10 - Z98.890) 11/29/2024 Personal history of (healed) traumatic fracture (ICD-10 - Z87.81) 11/29/2024 Physical debility (ICD-10 - R53.81) therapies as indicated 11/29/2024 History of CVA with residual deficit (ICD-10 - I69.30) continue statin, DAPT 11/29/2024 Mood disorder (ICD-10 - F39) continue seroquel, mirtazepine 11/29/2024 Frequent falls (ICD-10 - R29.6) PT/OT following 11/29/2024 Acquired hypothyroidism (ICD-10 - E03.9) continue daily replacement 11/29/2024 Chronic insomnia (ICD-10 - F51.04) seroquel, mirtazepine as noted 11/29/2024 RLS (restless legs syndrome) (ICD-10 - G25.81) has PRN order for mirapex 11/29/2024 PVD (peripheral vascular disease) (ICD-10 - I73.9) continue statin, aspirin and refrain from smoking 11/29/2024 Other chronic pain (ICD-10 - G89.29) no pain complaints today, monitor, continue baclofen post-stroke Plan Of Treatment Next Appt Details Follow Up: 4 Weeks, Reason: Progress Notes * [place] JORDANOB:[birth year] (64 yo F)Acc No.[id number]:11/29/2024 Patient: Antonina [place] MAC Provider: MADELIN Reid :1960 A ge:64 Y S ex:Female Date:11/29/2024 Address:[address] [facility] [address], [id number] Pcp:Yonny Scott Subjective: * Chief Complaints: * 1 . [place] FU. * HPI: g en: Seen today at [place] in anticipation of DC from facility. Recall she was admitted from [facility]. Admitted there after sufferring a fall, at her sister's home, and striking her face. Required ORIF right zygomatic arch and right orbital wall. Sinus precautions complete and AC has been resumed. Sister is with her today. She has done well since admission, no significant compllications. She did have some edema in her lower extremities but that is completely resolved today since stopping amlodipine and adding lasix daily. Blood pressures have been normal, averaging 120-130 systolic. At time of exam she is up with therapy. Has been walking with assistance. Denies pain. She reports sleeping well but her recall is poor and sister reports that she is sometimes awake throughout the night. Is to have outpatient FU with ENT. * ROS: R ESPIRATORY: Reviewed, No Symptoms Reported: Y es. C ARDIOLOGY: no C hest pain. L eg edema y es, i mproving with RX. C ONSTITUTIONAL: no L oss of appetite. n o F ever. W eakness?yes, i mproving. D ERMATOLOGY: no R cinthia. G ASTROENTEROLOGY: no V omiting. n o A bdominal pain. n o D iarrhea. C onstipation y es, i mproved with treatment. N EUROLOGY: no S eizures. n o I nsomnia. M casa loss y es, b aseline. P SYCHOLOGY: Depression y es. U ROLOGY: no D ifficulty urinating, o n flomax. * Medical History: H ypothyroidism, Fibromyalgia, HTN, Insomnia, Degenerative Disc Disease, Restless Leg Syndrome, Possible seizure, Alcoholism - recovering, Chronic pain, myofascial and degenerative joint disease, Stroke 03/2020, Stroke 11/2022, Fall with facial trauma 10/2024. * Medications: T aking Furosemide 20 MG Tablet 1 tablet Orally Once a day , Taking Multigen Folic 70-150-2-1 MG Tablet 1 tablet [...] tablet Orally Once a day , Taking Atorvastatin Calcium 40 MG Tablet [...] BY MOUTH ONCE A DAY , Discontinued amLODIPine Besylate 5 mg Tablet one tab orally daily , Discontinued oxyBUTYnin Chloride ER 5 MG Tablet Extended Release 24 Hour 1 tablet Orally Once a day , Medication List reviewed and reconciled with the patient * Allergies: P enicillin. Objective: * Vitals: P ain: 0, Temp: 98.3, RR: 18, HR: 91, BP: 113/72, Ht: 63.5, Wt: 128.8, BMI:22.46. * Examination: G eneral Examination: General P leasant and Cooperative, NAD on RA, frail appearing. Oral cavity: M oist membranes. Heart: R egular Rate and Rhythm,. HEENT: n o facial swelling or ecchymosis but abnormal contour right lower lid. Lungs: f aint rhonchi that clear with cough. Abdomen: s oft, NT/ND, BS present. Neurologic Exam: A lert and oriented x 2, poor recall. Skin: w ithout acute rashes. Peripheral pulses: d iminished. Extremities: n o edema, arthritic changes multiple joints.? neck s upple,. Psych N ormal Mood/Affect. [...] 2. O ther chronic pain - G89.29 Plan: * Treatment: 2. P hysical debility Clinical Notes: therapies as indicated 3. H istory of CVA with residual [...] pain Clinical Notes: no pain complaints today, monitor, continue baclofen post-stroke * Follow Up: 4 Weeks * * Sign off status: Completed Addendum: * true * Provider: MADELIN Reid Date: Generated for Mik olmos/Karen/Gina on: 12:45 PM EDT History and Physical Notes * HPI (History of Present Illness) Category Sub-Category Detail Notes Category Not es gen Seen today at [place] in anticipation of DC from facility. Recall she was admitted from [facility]. Admitted there after sufferring a fall, at her sister's home, and striking her face. Required ORIF right zygomatic arch and right orbital wall. Sinus precautions complete and AC has been resumed. Sister is with her today. She has done well since admission, no significant compllications. She did have some edema in her lower extremities but that is completely resolved today since stopping amlodipine and adding lasix daily. Blood pressures have been normal, averaging 120-130 systolic. At time of exam she is up with therapy. Has been walking with assistance. Denies pain. She reports sleeping well but her recall is poor and sister reports that she is sometimes awake throughout the night. Is to have outpatient FU with ENT. Examination Category Sub-Category Detail Notes Category Not es General Examination HEENT: no facial sw elling or ecchymosis but abnormal contour right lower lid Heart: Regular Rate and Rhy thm, Lungs: faint rhonchi that c lear with cough Abdomen: soft, NT/ND, BS pres ent Extremities: no edema, arthritic changes multiple joints Skin: without acute rashes Neurologic Exam: Alert and oriented x 2, poor recall Oral cavity: Moist membranes Peripheral pulses: diminished neck supple, General Pleasant and Coopera tive, NAD on RA, frail appearing Psych Normal Mood/Affect
--- OUTSIDE RECORDS SUMMARY | 2024-12-01 07:40 | XMS_ITS | Encounter Summary ---
Author Organization [facility] Address [address] [place] [address] Care Team Providers Care Saw Feeder Name Role Phone Aman Hernandez MD Primary Care Provider Encounter Details Date Type Department Care Team (Late st Contact Info) Description 12/01/2024 7:40 AM EDT Ancillary Procedure [facility] [address] [place] [address] Social History Tobacco Use Types [...] time in the past 12 m [facility], were you homeless or living in a penitentiary (including now)? Patient unable to answer 10/31/2024 [facility] Utilities Answer Date Recorded In [...] Description 12/20/2024 2:00 PM EDT Pre-Admission Testing [facility] Pre-op Clinic [address], [address] [place] [address] 12/27/2024 7:30 AM EST Appointment [facility] Interventional Radiology [address] [place] [address] 12/30/2024 1:00 PM EST Office Visit [facility] Otolaryngology [address], [address]rd [place] [address] Yobani Benoit MD [address] [facility] [address] [place] [address] 02/02/2025 9:00 AM EST Appointment [facility] Radiology [address] [place] [address] 05/24/2025 2:30 PM EDT Office Visit [facility] [address] [place] [address] Navya Woody MD [address] [facility] [address] [place] [phone] 06/07/2025 2:00 PM EDT Consult [facility] [address], [address] [place] [address] Haseeb Dias MD [address] [facility] [address] [place] [address] documented as of this encounter Procedures Procedure Name Priority Date/Time Associated Diagnosis Comments OCT, RETINA - OU - BOTH EYES Routine 12/01/2024 11:22 AM EDT Vision loss documented in this encounter Results * OCT, Retina - OU - Both Eyes (12/01/2024 11:22 AM EDT) Anatomical Region Laterality Modality Head Optical Coherenc e Tomography Narrative 12/01/2024 11:22 AM EDT Right Eye Quality was good. Findings include normal observations. Left Eye Quality was good. Findings include normal observations. 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
--- OUTSIDE RECORDS SUMMARY | 2024-12-01 07:40 | XMS_ITS | Encounter Summary ---
Author Organization [facility] Address [address] [place] [address] Care Team Providers Care Coutierier Name Role Phone Aman Hernandez MD Primary Care Provider Encounter Details Date Type Department Care Team (Late st Contact Info) Description 12/01/2024 7:40 AM EDT Ancillary Procedure [facility] Care [address] [place] [address] Social History Tobacco Use Types [...] any time in the past 12 m [facility], were you homeless or living in a nursing home (including now)? Patient unable to answer 10/31/2024 [facility] Utilities Answer Date Recorded In the [...] 12/20/2024 2:00 PM EDT Pre-Admission Testing [facility] Pre-op Clinic [address], [address] [place] [address] 12/27/2024 7:30 AM EST Appointment [facility] Interventional Radiology [address] [place] [address] 12/30/2024 1:00 PM EST Office Visit [facility] Otolaryngology [address], [address] [place] [address] Yobani Benoit MD [address] [facility] [address] [place] [address] 02/02/2025 9:00 AM EST Appointment [facility] Radiology [address] [place] [address] 05/24/2025 2:30 PM EDT Office Visit [facility] Advanced Eye Care [address] [place] [address] Navya Woody MD [address] [facility] [address] [place] [address] 06/07/2025 2:[address] [facility] Clinic [address], [address] [place] [address] Haseeb Dias MD [address] [facility] [address] [place] [address] documented as of this encounter [...] documented as of this encounter Care Teams Coutierier Relationship Specialty Start Date End Date Aman Hernandez MD [address] [facility] [address] [place] [address] PCP - General Family Medicine 06/18/21 documented as of this encounter
--- OUTSIDE RECORDS SUMMARY | 2024-12-01 07:45 | XMS_ITS | Encounter Summary ---
Author Organization [facility] Address [address] [place] [address] Care Team Providers Care Access Database Developer Name Role Phone Aman Hernandez MD Primary Care Provider Encounter Details Date Type Department Care Team (Late st Contact Info) Description 12/01/2024 7:45 AM EDT Ancillary Procedure [facility] Care [address] [place] [address] Social History Tobacco Use Types [...] time in the past 12 m [facility], were you homeless or living in a alf (including now)? Patient unable to answer 10/31/2024 [facility] Utilities Answer Date Recorded In [...] Description 12/20/2024 2:00 PM EDT Pre-Admission Testing [facility] Pre-op Clinic [address], [address] [place] [address] 12/27/2024 7:30 AM EST Appointment [facility] Interventional Radiology [address] [place] [address] 12/30/2024 1:00 PM EST Office Visit [facility] Otolaryngology [address] [place] [address] Yobani Benoit MD [address] [facility] [address] [place] [address] 02/02/2025 9:00 AM EST Appointment [facility] Radiology [address] [place] [address] 05/24/2025 2:30 PM EDT Office Visit [facility] [address] [place] [address] Navya Woody MD [address] [facility] [address] [place] [address] 06/07/2025 2:00 PM EDT Consult [facility] Clinic [address], [address] [place] [address] Haseeb Dias MD [address] [facility] [address] [place] [address] documented as of this encounter Procedures Procedure Name Priority Date/Time Associated Diagnosis Comments OCT, OPTIC NERVE - OU - BOTH EYES Routine 12/01/2024 11:21 AM EDT Vision loss documented in this encounter Results * OCT, Optic Nerve - OU - Both Eyes (12/01/2024 11:21 AM EDT) Anatomical Region Laterality Modality Head Optical Coherenc e Tomography Narrative 12/01/2024 11:21 AM EDT Right Eye Images reviewed. To assess optic nerve function and for use in future follow-up. Reliability: good and adequate. Left Eye Images reviewed. To assess optic nerve function and for use in future follow-up. Reliability: good and adequate. Notes Right eye (OD) - average RNFL measures 90 microns Left eye (OS) - average RNFL measures 90 microns Both eyes (OU) ganglion cell analysis is intact OD nasal GCL loss OS temp GCL loss us Navya Woody MD OPHTH TOMOGRAPHY Final [...] documented as of this encounter Care Teams Access Database Developer Relationship Specialty Start Date End Date Aman Hernandez MD [address] [address] PCP - General Family Medicine 06/18/21 documented as of this encounter
--- OUTSIDE RECORDS SUMMARY | 2024-12-01 09:00 | XMS_ITS | Encounter Summary ---
Author Organization Healthcare Address [address] [place] [address] Care Team Providers Care Dressage Judge Name Role Phone Aman Hernandez MD Primary Care Provider Reason for Referral * Consultation (Routine) - Authorized Specialty Diagnoses / Procedures Referred By Zoe guevara Referred To Contact Oculoplastics Ophthalmology / Ophthalmology Diagnoses Ectropion of left lower eyelid, unspecified ectropion type Navya Woody MD [address] [address] Phone: tel: fax: [facility] [address] [place] [phone] Phone: tel: fax: Referral ID Status Reason Start Date Expiration Date V isits Requested Visits Authorized [id number] Authorized 12/01/2024 06/02/2026 1 1 * Consultation (Routine) - Authorized Specialty Diagnoses / Procedures Referred By Zoe t Referred To Contact Neurology Diagnoses Ectropion of left lower eyelid, unspecified ectropion type Navya Woody MD [address] [address] Phone: tel: fax: Referral ID Status Reason Start Date Expiration Date Visits Requested Visits Authorized [id number] Authorized Specialty Services Required 12/01/2024 06/02/2026 1 1 Scheduling Instructions Stroke please * Imaging (Routine) - Pending Review Specialty Diagnoses / Procedures Referred By Zoe guevara Referred To Contact Radiology Diagnoses Homonymous hemianopia, right Procedures MR Head w and wo IV Contrast Navya Woody MD [address] [address] Phone: tel: fax: Referral ID Status Reason Start Date Expiration Date V isits Requested Visits Authorized [id number] Pending Review 12/01/2024 06/02/2026 1 1 Reason for Visit * Consultation (Routine) - Closed Specialty Diagnoses / Procedures Referred By Zoe guevara Referred To Contact Ophthalmology Diagnoses Personal history of transient cerebral ischemia Unspecified visual loss Yonny Scott MD [address] [facility] [address] [place] [address] Phone: tel: fax: [facility] [address] [place] [address] Phone: tel: fax: Referral ID Status Reason Start Date Expiration Date V isits Requested Visits Authorized [id number] Closed Specialty Services Required 07/11/2024 01/10/2026 1 1 Encounter Details Date Type Department Care Team (Latest Contact Info) Description 12/01/2024 9:00 AM EDT Office Visit [facility] [address] [place] [phone] Navya Woody MD [address] [phone] Vision loss (Primary Dx); Homonymous hemianopia, right; Ectropion of left lower eyelid, unspecified ectropion type; Bilateral profound visual loss; Other localized visual field defect, bilateral; Nuclear sclerotic cataract of both eyes; Intraventricular hemorrhage (CMS/HCC); Lagophthalmos of right lower eyelid, unspecified lagophthalmos type Social History Tobacco Use Types Packs/Day Years [...] any time in the past 12 m [facility], were you homeless or living in a nursing home (including now)? Patient unable to answer 10/31/2024 [facility] Utilities Answer Date Recorded In the past [...] as of this encounter Miscellaneous Notes * Progress Notes - Navya Woody MD - 12/01/2024 9:00 AM EDT Referring provider : Yonny Scott MD I am seeing this patient in consultation at the request of the above provider and my complete evaluation follows. Chief complaint: Neuro-Ophthalmology exam after stroke History of present illness Patient ID: [place] Mata is a 64 y.o. female referred to Neuro-Ophthalmology for evaluation of vision changes following the stroke. She is wheelchair-bound. She is accompanied to the visit by her brother and niece. Patient has uncontrolled hypertension, vascular disease with carotid artery disease status post left carotid stent in December/2022 and smoking, presented to [facility] in June/2024 with 2 weeks of right-sided weakness. MRI brain revealed subacute lacunar infarct in left thalamic/posterior left basal ganglia area. Patient was recommended dual antiplatelets with aspirin and Plavix and Lipitor was increased to 80 mg. Was advised to control blood pressure and sent to [facility] for rehab. There was significant right ICA stenosis but she was asymptomatic and she was asked to follow-up with neurosurgeon outpatient for management. This is still pending. MRI head without in June 2024 showed 1.Subacute lacunar type infarct left thalamic/posterior left basal ganglia area. 2.T2 signal changes involving the cerebral hemispheres, brainstem and cerebellar hemispheres that could reflect more chronic small vessel ischemic change. 3.Scattered foci of susceptibility artifact involving the cerebral hemispheres, brainstem and cerebellum. This could relate to amyloid angiopathy. This also could be seen with hypertension. 4.Ballooning of the occipital horn left lateral ventricle that could relate to old insult involving the left occipital lobe. Duplex Carotid Ultrasound Interpretation Summary Right internal carotid artery demonstrates greater than 70% stenosis but less than near occlusion. Right vertebral flow not noted. Vessel is possibly occluded. Left carotid stent is patent without evidence of in-stent restenosis. Antegrade left vertebral flow. Patient was admitted to in October/2024 after unwitnessed fall out of bed at home. Outside hospital imaging showed R orbital tripod fracture, retrobulbar hematoma (IOP 55), and scattered tSAH/contusions Underwent emergent lateral canthotomy (IOP ? to 35). Treated at [facility]. Initially GCS 14-15, intubated for airway pre-transfer. Reversed Anticoagulation with DDAVP. Injuries include: tSAH, IVH, R tripod fx with non-displaced ZMG, R globe hematoma s/p lateral canthotomy at OSH. Ophthalmology attempted to see her during that admission but were unable to assess vision secondaryto mental status. Intra-ocular pressure was normal and pupil was reacting to light in both the eyes. Patient had very edematous eyelids on the right with dried blood. Had undergone lateral canthotomy,there was severe conjunctival chemosis. Extraocular movements were restricted in all directions. Fundus exam seemed okay OU. Patient - / fall, found to have right tripod fracture with non-displaced zygomatic arch and comminuted right orbital floor fracture. Neurosurgery also saw this patient and did not recommend acute intervention. CTH: Small IVH, scattered tSAH, contusions, no large ICH, no significant midline shift. CTA no obvious aneurysms or vascular malformations Follow-up CT head at discharge There is no evidence of intracranial mass, hemorrhage, or acute territorial infarction. * Increasing soft tissue density in the floor of the right orbit which could reflect evolving postsurgical changes and/or hematoma. Discharged to [facility] Since discharge she has been back on the aspirin and atorvastatin Interval History - No changes since leaving the hospital in October/2024. Family reports improvement with her mobility. Previously was unable to sit up. Family reports ongoing right sided weakness however has much more truncal stability and strength. Prior to the stroke she had decent mobility. They state after the fall 5-6 weeks ago her mobility has regressed. Her first stroke they report was 3 years ago needing minimal assistance after PT- went to [facility] They report it was due to BP due to med noncompliance. Vision is blurred OU. No diplopia. Speech is affected, can't get words out. No headache. Last eye exam longtime ago. Past Medical History[1] RLS, hypothyroidism Family medical history family history includes Arthritis in her mother's brother; Diabetes in her brother, brother, mother, and sister. Social history reports that she has quit smoking. Her smoking use included cigarettes. She has a 40 pack-year smoking history. She has never been exposed to tobacco smoke. She has never used smokeless tobacco. Denies history of smoking, EtOH abuse or illicit substance use. Currently lives in a assisted Review of systems Review of systems: 14 point review of systems was negative except as documented above Allergies : Cephalosporins, Other, Penicillin g, and Penicillins Medications Current Outpatient Medications (Ophthalmic Drugs) Medication Sig erythromycin (Romycin) 5 MG/GM ophthalmic ointment Apply 1 Application to both eyes every 8 hours. No current facility-administered medications for this visit. (Ophthalmic Drugs) Current Outpatient Medications (Other) Medication Sig acetaminophen (Tylenol) 500 MG tablet Take 1 tablet by mouth 4 times a day for 7 days. amLODIPine (Norvasc) 5 MG tablet Take 1 tablet (5 mg total) by mouth 1 (one) time each day. Aspirin Low Dose 81 MG EC tablet Take 1 tablet by mouth daily. atorvastatin (Lipitor) 40 MG tablet Take 1 tablet by mouth daily. bacitracin, 425g jar, 500 UNIT/GM ointment Apply to face BID baclofen 5 MG tablet Take 1 tablet by mouth 2 times a day. clopidogrel (Plavix) 75 MG tablet 1 tablet. FLUoxetine (PROzac) 20 MG capsule Take 1 capsule by mouth every morning. folic acid (Folvite) 800 MCG tablet Take 1 tablet by mouth daily. hydrOXYzine pamoate (Vistaril) 25 MG capsule Take 1 capsule by mouth every 8 hours as needed for itching. levothyroxine (Synthroid, Levoxyl) 75 MCG tablet Take 1 tablet by mouth daily. megestrol (Megace) 40 MG/ML suspension Take 10 mL by mouth daily for 7 days. Shake well just beforeyou measure a dose. Measure with a special dose-measuring spoon or medicine cup, not with a regulartable spoon. If you do not have a dose- measuring device, ask your pharmacist for one. mirtazapine (Remeron) 15 MG tablet Take 1 tablet by mouth nightly. naloxone (Narcan) 4 mg/0.1 mL nasal spray 1. Give 1 spray in nostril for no/slow breathing or cannot wake after opioid use 2. Call 911 3. Repeat in other nostril if symptoms continue oxybutynin XL (Ditropan-XL) 5 MG 24 hr tablet Take 1 tablet by mouth daily. pramipexole (Mirapex) 1 MG tablet Take 1 tablet by mouth 3 times a day as needed. QUEtiapine (SEROquel) 100 MG tablet Take 1.5 tablets by mouth nightly. tamsulosin (Flomax) 0.4 MG 24 hr capsule Take 1 capsule by mouth 1 time each day with dinner. No current facility-administered medications for this visit. (Other) Alert and oriented X 3, mood and affect normal Objective Base Eye Exam Visual Acuity (Snellen - Linear) Right Left Dist sc 20/200 20/200 Dist ph sc NI NI Unable to get near vision Tonometry (Tonopen, 9:55 AM) Right Left Pressure 18 22 Pupils Pupils APD Right PERRL None Left PERRL None Visual Salazar Right homonymous hemianopia Extraocular Movement Right Left Full Full Neuro/Psych Oriented x3: Yes Mood/Affect: Normal Dilation Both eyes: 1% Tropicamide, 2.5% Phenylephrine @ 10:15 AM Additional Tests Color Right Left Ishihara 0/14 0/14 Stereo Fly: - Animals: 0/3 Circles: 0/9 Glare Testing Medium Right unable Left unable Slit Lamp and Fundus Exam External Exam Right Left External Normal Normal Slit Lamp Exam Right Left Lids/Lashes Normal for age, lower eyelid ectropion, lateral canthotomy, lagophthalmos Normal for age Conjunctiva/Sclera Normal Normal Cornea Clear and compact Clear and compact Anterior Chamber Deep and quiet Deep and quiet Iris Normal pupil size and shape Normal pupil size and shape Lens Ns +cortical cat Ns +cortical cat Vitreous Normal Normal Fundus Exam Right Left Disc No edema; no vascularization; good color (Jay 78 d Lens) No edema; no vascularization; good color, PPA (Jay 78 d Lens) C/D Ratio 0.2 0.2 Macula Normal reflex; without edema Normal reflex; without edema Vessels Perfused; no tortuosity or abnormality Perfused; no tortuosity or abnormality Periphery Attached; no retinal or choroidal lesions Attached; no retinal or choroidal lesions Refraction Wearing Rx Sphere Cylinder Dorothy Add Right +0.50 +0.75 175 +3.00 Left +0.50 +1.00 145 +3.00 Wearing Rx #2 Sphere Cylinder Dorothy Add Right +0.75 +0.50 005 +2.75 Left +0.25 +1.00 164 +2.75 Manifest Refraction (Auto) Sphere Cylinder Dorothy Right +1.00 +1.25 162 Left +1.00 +0.50 178 On sensory motor exam extraocular motility was full. Ductions and versions are normal. Patient was orthophoric for distance . Saccades and smooth pursuit were within normal limits. I personally reviewed notes from referring provider and gathered information about her stroke and then subsequently intraventricular hemorrhage and subarachnoid hemorrhage after the fall I personally reviewed imaging: CTH: Small IVH, scattered tSAH, contusions, no large ICH, no significant midline shift. CTA no obvious aneurysms or vascular malformations CT head wo Stable intraventricular hemorrhage. 2.Stable ventriculomegaly which may be due to central predominant brain volume loss or normal pressure hydrocephalus. 3.Stable chronic appearing lacunar infarcts and probable old left occipital infarct. Follow-up CT head at discharge There is no evidence of intracranial mass, hemorrhage, or acute territorial infarction. * Increasing soft tissue density in the floor of the right orbit which could reflect evolving postsurgical changes and/or hematoma. I personally reviewed labs: CBC in October/2024 showed low hemoglobin and hematocrit Automated Visual Field, Extended - OU - Both Eyes OU unable to do OCT, Retina - OU - Both Eyes Right Eye Quality was good. Findings include normal observations. Left Eye Quality was good. Findings include normal observations. OCT, Optic Nerve - OU - Both Eyes Right Eye Images reviewed. To assess optic [...] nasal GCL loss OS temp GCL loss No results found for this or any previous visit. Assessment and plan Assessment/Plan Problem List Items Addressed This Visit Eye/Vision problems Nuclear sclerotic cataract of both eyes Other localized visual field defect, bilateral Bilateral profound visual loss Ectropion of left lower eyelid Relevant Orders Ambulatory referral to Neurology Ophthalmology Oculoplastics Homonymous hemianopia, right Relevant Orders MR Head w and wo IV Contrast Vision loss - Primary Relevant Orders OCT, Retina - OU - Both Eyes (Completed) OCT, Optic Nerve - OU - Both Eyes (Completed) Automated Visual Field, Extended - OU - Both Eyes (Completed) Lagophthalmos of right lower eyelid Other Intraventricular hemorrhage (CMS/HCC) [place] Mata is a 64 y.o. female presents in Neuro-Ophthalmology for an exam. Patient had a left thalamic/basal ganglia infarct in June/2024. At that time MRI head already showed an old left occipital infarct. Subsequently had a fall in October/2024 and developed subarachnoid hemorrhage and intraventricular hemorrhage that was managed conservatively. On neuro-ophthalmology exam visual acuity is 20/200 in each eye- was having aphasia and difficulty in getting words out of the mouth , color vision is severely impaired in both the eyes , contrast sensitivity is severely impaired in both the eyes ,stereopsis is poor . There was no afferent pupillary defect. Extraocular movements were full. The patient was orthophoric for distance. Anterior segment exam was unremarkable in both the eyes showing nuclear sclerosis and cortical cataract . There waslower eyelid ectropion in the right eye with lagophthalmos and evidence of previous lateral canthotomy. Fundus exam showed healthy optic discs and no other retinal abnormalities of significance . Formal visual salazar could not be completed Confrontation Visual salazar showed right homonymous hemianopia . Retinal nerve fiber analysis looked robust in both the eyes. Ganglion cell analysis showed nasal sector loss in the right eye and temporal sector loss in the left eye . Macular OCT showed no abnormalities of concern . Unclear cause of severe vision loss in both the eyes. Could be cortical but aphasia also interfering with testing. 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 The patient will return for a follow-up in 4 months. Thank you for requesting this consult. I spent more than 80 minutes in this patient encounter which includes reviewing both external and internal historical documentation, reviewing investigations like imaging and labs and examination findings with the patient, discussing management plan with the patient and documenting all findings in the note and counseling, excluding separately reportable procedure /imaging time. [1] Past Medical History: Diagnosis Date Anxiety Arthritis Depression Fibromyalgia Headache Hx of degenerative disc disease Hyperlipidemia Hypertension Neuropathy Otitis media A couple months ago. Stroke (CMS/[facility]) documented in this encounter Plan of Treatment Upcoming Encounters Date Type Department Care Team (Latest Contact Info) Description 12/20/2024 2:00 PM EDT Pre-Admission Testing [facility] [address] [place] [address] 12/27/2024 7:30 AM EST Appointment [facility] Interventional Radiology [address] [place] [address] 12/30/2024 1:00 PM EST Office Visit [facility] [address] [place] [address] Yobani Benoit MD [address] [place] [address] 02/02/2025 9:00 AM EST Appointment [facility] [address] [place] [address] 05/24/2025 2:30 PM EDT Office Visit [facility] [address] [place] [phone] Navya Woody MD [address] [address] 06/07/2025 2:00 PM EDT Consult [place] [facility] [address] [place] [address] Haseeb Dias MD [address] [facility] [place] [address] Scheduled Orders Name Type Priority Associated Diagnoses Orde r Schedule MR Head w and wo IV Contrast Imaging Routine Homonymous hemianopia, right Expected: 12/01/2024, Expires: 06/04/2026 Scheduled Referrals Name Type Priority Associated Diagnoses Order Schedule Ambulatory referral to Neurology Outpatient Referral Routine Ectropion of left lower eyelid, unspecified ectropion type 1 Occurrences starting 12/01/2024 until 06/04/2026 Ophthalmology Oculoplastics Outpatient Referral Routine Ectropion of left lower eyelid, unspecified ectropion type 1 Occurrences starting 12/01/2024 until 06/04/2026 documented as of this encounter Procedures Procedure Name Priority Date/Time Associated Diagnosis Comments OCT, RETINA - OU - BOTH EYES Routine 12/01/2024 11:22 AM EDT Vision loss OCT, OPTIC NERVE - OU - BOTH EYES Routine 12/01/2024 11:21 AM EDT Vision loss AUTOMATED VISUAL FIELD, EXTENDED - OU - [...] Woody MD OPHTH TOMOGRAPHY Final Resul t * OCT, Optic Nerve - OU - [...] Woody MD OPHTH TOMOGRAPHY Final Resul t * Automated Visual Field, Extended - OU - Both Eyes (12/01/2024 11:17 AM EDT) Anatomical Region Laterality Modality Head Visual Field Narrative 12/01/2024 11:17 AM EDT OU unable to do us Navya Woody MD OPHTH VISUAL FIELD Final Res ult documented in this encounter Visit Diagnoses Diagnosis Vision loss- Primary Unspecified visual loss Homonymous hemianopia, right Ectropion of left lower eyelid, unspecified ectropion type Bilateral profound visual loss Other localized visual field defect, bilateral Nuclear sclerotic cataract of both eyes Senile nuclear sclerosis Intraventricular hemorrhage (CMS/HCC) Lagophthalmos of right lower eyelid, unspecified lagophthalmos type documented in this encounter Additional Health Concerns Infection Onset Date Last Indicated Resolved Time 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
--- OUTSIDE RECORDS SUMMARY | 2024-12-13 10:37 | XMS_ITS | Encounter Summary ---
Author Organization Healthcare Address [address] [place] [address] Care Team Providers Care Pyrotechnics Press Tender Name Role Phone Aman Hernandez MD Primary Care Provider Reason for Referral * Imaging (Routine) - Closed Specialty Diagnoses / Procedures Referred By Contac t Referred To Contact Radiology Diagnoses SDH (subdural hematoma) (CMS/HCC) Procedures CT Head wo IV Contrast Miranda Garcias PA [address] [address] Phone: tel: fax: Referral ID Status Reason Start Date Expiration Date Visits Re quested Visits Authorized [id number] Closed 11/17/2024 05/19/2026 1 1 Reason for Visit * Imaging (Routine) - Closed Specialty Diagnoses / Procedures Referred By Contac t Referred To Contact Radiology Diagnoses SDH (subdural hematoma) (CMS/HCC) Procedures CT Head wo IV Contrast Miranda Garcias PA [address] [address] Phone: tel: fax: Referral ID Status Reason Start Date Expiration Date Visits Re quested Visits Authorized [id number] Closed 11/17/2024 05/19/2026 1 1 Encounter Details Date Type Department Care Team (Latest Contact Info) Description 12/13/2024 10:37 AM EDT - 12/13/2024 11:59 PM EDT Hospital Encounter [facility] [address] [place] [address] SDH (subdural hematoma) (CMS/HCC) Discharge Disposition: Home [...] any time in the past 12 m [facility], were you homeless or living in a halfway (including now)? Patient unable to answer 10/31/2024 [facility] Utilities Answer Date Recorded In [...] tablet Take 1.5 tablets by mouth nightly. Fe Asp Xgr-Osbe-R-Thre-B12 -FA (Multigen Folic) 70-150-2-1 MG tablet Take 1 tablet by mouth. furosemide (Lasix) 20 MG tablet 1 tablet. 12/02/2024 HYDROcodone-acetami nophen ([place]) 5-325 MG tablet Take 1 tablet by mouth every 6 hours as needed. 05/24/2024 lisinopril 20 MG tablet Take 1 tablet by mouth daily. 10/18/2024 losartan (Cozaar) 50 MG tablet Take 1 tablet by mouth. ondansetron ODT (Zofran-ODT) 4 MG disintegrating tablet 1 tablet. 12/02/2024 tamsulosin (Flomax) 0.4 MG 24 hr capsule Take 1 capsule by mouth 1 time each day with dinner. 30 capsule 11/12/2024 12/16/19 25 documented as of this encounter Plan of Treatment Upcoming Encounters Date Type Department Care Team (Latest Contact Info) Description 12/20/2024 2:00 PM EDT Pre-Admission Testing [facility] [address] [place] [address] 12/27/2024 7:30 AM EST Appointment [facility] [address] [place] [phone] 12/30/2024 1:00 PM EST Office Visit [facility] [address] [place] [address] Yobani Benoit MD [address] [facility] [address] [place] [address] 02/02/2025 9:00 AM EST Appointment [facility] [address] [place] [address] 05/24/2025 2:30 PM EDT Office Visit [facility] [address] [place] [address] Navya Woody MD [address] [place] [address] 06/07/2025 2:00 PM EDT Consult [facility] [address] [place] [phone] Haseeb Dias MD [address] [place] [address] documented as of this encounter Procedures Procedure Name Priority Date/Time Associated Diagnosis Comments CT HEAD WO IV CONTRAST Routine 12/13/2024 10:45 AM EDT SDH (subdural hematoma) (CMS/HCC) documented in this encounter Results * CT Head wo IV Contrast (12/13/2024 10:45 AM EDT) Anatomical Region Laterality Modality Head Computed Tomogra phy Impressions 12/14/2024 7:08 AM EDT No acute intracranial process. Case finalized on 12/14/24 07:08 EDT Alon Dubois M.D. This report has been electronically signed and verified by the Radiologist whose name is printed above. This report contains privileged and confidential information and is intended solely for the use of the individual or entity to which it is addressed. If you are not the intended recipient of this report, you are hereby notified that any copying, distribution, dissemination or action taken in relation to the contents of this report is strictly prohibited and may be unlawful. If you have received this report in error, please notify the sender immediately at [phone] and permanently delete the original report and destroy any copies or printouts. Narrative 12/14/2024 7:08 AM EDT [facility] NAME: [place] Mata DATE OF EXAM: 12/13/2024 Patient No: [id number] Physician: Geno Date of : 1960 Past Medical/Surgical History (entered by technologist): Symptoms/Reason For Exam (entered by technologist): SDH (subdural hematoma)/sah Tech Notes (entered by technologist): No contrast given Indication: Subdural hematoma. Technique: Noncontrast CT of the head with coronal and sagittal reformats. Comparison: Head CT from 11/12/2024 Findings: No acute appearing intracranial mass. No extra-axial fluid collections. No mass effect, midline shift, herniation, or hydrocephalus. Chronic left IS/IT PROJECT MANAGER infarct with encephalomalacia and ex vacuo dilatation of the left temporal horn. Likely chronic bilateral basal ganglia infarcts. Sequelae of small vessel ischemic changes. Stable ventricular size and configuration. Basal cisterns are patent. Moderate opacification of right maxillary sinus. Postsurgical changes of the floor of the right orbit with associated soft tissue density, decreased compared to prior study. Calvarium and overlying soft tissues appear stable. Procedure Note Alon Dubois MD - 12/14/2024 [facility] NAME: [place] Mata Rae DATE OF EXAM: 12/13/2024 Patient No: [id number] Physician: Geno Date of : 1960 Past Medical/Surgical History (entered by technologist): Symptoms/Reason For Exam (entered by technologist): SDH (subduralhematoma)/sah Tech Notes (entered by technologist): No contrast given Indication: Subdural hematoma. Technique: Noncontrast CT of the head with coronal and sagittalreformats. Comparison: Head CT from 11/12/2024 Findings: No acute appearing intracranial mass. No extra-axial fluid collections.No mass effect, midline shift, herniation, or hydrocephalus. Chronic left IS/IT PROJECT MANAGER infarct with encephalomalacia and ex vacuo dilatation ofthe left temporal horn. Likely chronic bilateral basal ganglia infarcts.Sequelae of small vessel ischemic changes. Stable ventricular size andconfiguration. Basal cisterns are patent. Moderate opacification of right maxillary sinus. Postsurgical changes ofthe floor of the right orbit with associated soft tissue density,decreased compared to prior study. Calvarium and overlying soft tissues appear stable. IMPRESSION: No acute intracranial process. Case finalized on 12/14/24 07:08 EDT Alon Dubois M.D. This report has been electronically signed and verified by the Radiologistwhose name is printed above. This report contains privileged and confidential information and isintended solely for the use of the individual or entity to which it isaddressed. If you are not the intended recipient of this report, you arehereby notified that any copying, distribution, dissemination or actiontaken in relation to the contents of this report is strictly prohibitedand may be unlawful. If you have received this report in error, pleasenotify the sender immediately at [phone] and permanently delete theoriginal report and destroy any copies or printouts. 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
--- OUTSIDE RECORDS SUMMARY | 2024-12-13 13:00 | XMS_ITS | Encounter Summary ---
Author Organization Healthcare Address [address] [place] [address] Care Team Providers Care Advertising Production Manager Name Role Phone Aman Hernandez MD Primary Care Provider Reason for Referral * Imaging (Routine) - Closed Specialty Diagnoses / Procedures Referred By Zoe guevara Referred To Contact Cardiology Diagnoses Occlusion and stenosis of bilateral carotid arteries Procedures VAS US Carotid Duplex Bilateral Ezio Estrada PA [address] [facility] [address] [place] [address] Phone: tel: fax: Referral ID Status Reason Start Date Expiration Date V isits Requested Visits Authorized [id number] Closed Perform Procedure 12/13/2024 06/14/2026 1 1 Reason for Visit * Consultation (Routine) - Closed Specialty Diagnoses / Procedures Referred By Zoe t Referred To Contact Neurosurgery Diagnoses Fall, initial encounter Traumatic brain injury, with unknown loss of consciousness status, initial encounter Charles Velasco, CHROME CLEANER [address] [facility] [address] [place] [address] Phone: tel: fax: [place] [facility] [address] [place] [address] Phone: tel: fax: Referral ID Status Reason Start Date Expiration Date V isits Requested Visits Authorized [id number] Closed Specialty Services Required 11/12/2024 05/14/2026 1 1 Encounter Details Date Type Department Care Team (Late st Contact Info) Description 12/13/2024 1:00 PM EDT Consult [place] [facility] [address] [place] [address] Ezio Estrada PA [address] [place] [address] Occlusion and stenosis of bilateral [...] any time in the past 12 m [facility], were you homeless or living in a [place] [facility] [place] facility (including now)? Patient unable to answer 10/31/2024 [facility] Utilities Answer Date Recorded In [...] Otitis media (A couple months ago.), andStroke ([facility] Surgical History She has a past surgical [...] stenosis S/p left carotid stent 2022 at [facility] Left carotid stent patent, right [...] Ezio Estrada PA-C I saw the patient [id number], obtained and documented the medical history, performed and documented the physical exam, and reviewed imaging. I documented the plan of care in the EMR prior to any revisions made by the attending physician. Thank you. If there are any questions or concerns please feel free to contact us: [facility] Department of Neurosurgery [address] [place] [address] [place] [address] ; [1] Family History Problem [...] 12/20/2024 2:00 PM EDT Pre-Admission Testing [facility] [address] [place] [address] 12/27/2024 7:30 AM EST Appointment [facility] [address] [place] [address] 12/30/2024 1:00 PM EST Office Visit [facility] Otolaryngology [address] [place] [address] Yobani Benoit MD [address] [facility] [address] [place] [address] 02/02/2025 9:00 AM EST Appointment [facility] [address] [place] [address] 05/24/2025 2:30 PM EDT Office Visit [facility] [address] [place] [phone] Navya Woody MD [address] [facility] [address] [place] [address] 06/07/2025 2:[address] [facility] [address] [place] [address] Haseeb Dias MD [address] [facility] [address] [place] [address] documented as of this encounter Results * VAS US Carotid Duplex Bilateral (12/15/2024 12:34 PM EDT) Anatomical Region Laterality Modality Head, Neck, Vascular Ultrasound Impressions 12/15/2024 4:03 PM EDT Right: Moderate irregular heterogenous plaque is demonstrated in the distal CCA, bifurcation and prox ICA. Flow is present in the CCA, ICA, and ECA. Elevated ICA velocities demonstrate evidence of a hemodynamically significant stenosis (50-69%). Avascular structure is noted in the neck measuring 1.0 cm x 0.6 cm Left: Irregular heterogenous plaque is demonstrated in the distal CCA. Homogenous hypoechoic plaque is demonstrated in the ECA and Subclavian artery. A patent stent is noted in the ICA. Flow is present in the CCA and ICA. No flow is detected at the origin of the ECA, retrograde flow is noted in a branch of the ECA. ICA velocities do not demonstrate evidence of a hemodynamically significant stenosis (less than 50%). No flow is detected in the right vertebral artery. Left vertebral artery flow is antegrade. Subclavian artery flow is multiphasic, bilaterally. Left Subclavian artery velocities are elevated. COMMUNICATION: Per this written report. Preliminary report signed by Millie Contreras on 12/15/2024 1:37 PM By electronically signing this report, I, the attending physician, attest that I have personally reviewed the images/data for the above examination(s) and I agree with the final edited report. Drafted by Millie Contreras on 12/15/2024 1:22 PM Final report signed by Cecy Archer MD on 12/15/2024 4:03 PM Narrative 12/15/2024 4:03 PM EDT CLINICAL INDICATION: Surveillance for carotid artery intervention TECHNIQUE: Non-invasive, real time duplex exam of the extracranial carotid circulation with Doppler ultrasonic waveform and spectral analysis was performed. COMPARISON: None. FINDINGS: Right: CCA: 77 cm/sec. ECA: 554 cm/sec. ICA: 234/64 cm/sec. ICA/CCA ratio: 3 Vertebral A: 0 cm/sec. Subclavian A: 323 cm/sec. Left: CCA-ICA stent Prox to: 44 cm/s Prox: 62 cm/s Mid: 58 cm/s Distal: 69 cm/s Distal to: 95 cm/s ECA: 0 cm/sec. Vertebral A: 96 cm/sec. Subclavian A: 419 cm/sec. Procedure Note Cecy Archer MD - 12/15/2024 CLINICAL INDICATION: Surveillance for carotid artery intervention TECHNIQUE: Non-invasive, real time duplex exam of the extracranial carotidcirculation with Doppler ultrasonic waveform and spectral analysis wasperformed. COMPARISON: None. FINDINGS: Right: CCA: 77 cm/sec. ECA: 554 cm/sec. ICA: 234/64 cm/sec. ICA/CCA ratio: 3 Vertebral A: 0 cm/sec. Subclavian A: 323 cm/sec. Left: CCA-ICA stent Prox to: 44 cm/s Prox: 62 cm/s Mid: 58 cm/s Distal: 69 cm/s Distal to: 95 cm/s ECA: 0 cm/sec. Vertebral A: 96 cm/sec. Subclavian A: 419 cm/sec. IMPRESSION: Right: Moderate irregular heterogenous plaque is demonstrated in thedistal CCA, bifurcation and prox ICA. Flow is present in the CCA, ICA,and ECA. Elevated ICA velocities demonstrate evidence of ahemodynamically significant stenosis (50- 69%). Avascular structure is noted in the neck measuring 1.0 cm x 0.6 cm Left: Irregular heterogenous plaque is demonstrated in the distal CCA.Homogenous hypoechoic plaque is demonstrated in the ECA and Subclavianartery. A patent stent is noted in the ICA. Flow is present in the CCA andICA. No flow is detected at the origin of the ECA, retrograde flow isnoted in a branch of the ECA. ICA velocities do not demonstrate evidenceof a hemodynamically significant stenosis (less than 50%). No flow is detected in the right vertebral artery. Left vertebral artery flow is antegrade. Subclavian artery flow is multiphasic, bilaterally. Left Subclavian artery velocities are elevated. COMMUNICATION: Per this written report. Preliminary report signed by Millie Contreras on 12/15/2024 1:37 PM By electronically signing this report, I, the attending physician, attestthat I have personally reviewed the images/data for the aboveexamination(s) and I agree with the final edited report. Drafted by Millie Contreras on 12/15/2024 1:22 PM Final report signed by Cecy Archer MD on 12/15/2024 4:03 PM [facility] VASCULAR PROCEDURES Evelyn l Result documented in this encounter Visit Diagnoses Diagnosis Occlusion and stenosis of bilateral carotid arteries- Primary Occlusion and stenosis of bilateral carotid arteries documented in this encounter Additional Health Concerns [...] documented as of this encounter Care Teams Advertising Production Manager Relationship Specialty Start Date End Date Aman Hernandez MD [address] [facility] [address] [place] [address] PCP - General Family Medicine 06/18/21 documented as of this encounter
--- OUTSIDE RECORDS SUMMARY | 2024-12-15 11:17 | XMS_ITS | Encounter Summary ---
Author Organization [facility] Address [address] [place] [address] Care Team Providers Care Manager Student Services Name Role Phone Aman Hernandez MD Primary Care Provider Reason for Referral * Imaging (Routine) - Closed Specialty Diagnoses / Procedures Referred By Contac t Referred To Contact Cardiology Diagnoses Occlusion and stenosis of bilateral carotid arteries Procedures VAS US Carotid Duplex Bilateral Ezio Estrada PA [address] [address] Phone: tel: fax: Referral ID Status Reason Start Date Expiration Date V isits Requested Visits Authorized [id number] Closed Perform Procedure 12/13/2024 06/14/2026 1 1 Reason for Visit * Imaging (Routine) - Closed Specialty Diagnoses / Procedures Referred By Contac t Referred To Contact Cardiology Diagnoses Occlusion and stenosis of bilateral carotid arteries Procedures VAS US Carotid Duplex Bilateral Ezio Estrada PA [address] [address] Phone: tel: fax: Referral ID Status Reason Start Date Expiration Date V isits Requested Visits Authorized [id number] Closed Perform Procedure 12/13/2024 06/14/2026 1 1 Encounter Details Date Type Department Care Team (Latest Contact Info) Description 12/15/2024 11:17 AM EDT - 12/15/2024 11:59 PM EDT Hospital Encounter [facility] Vascular Lab [address] [address] Occlusion and stenosis of bilateral carotid arteries Discharge Disposition: Home or Self Care Social [...] in the past 12 m [facility], were you homeless or living in a [facility] (including now)? Patient unable to answer 10/31/2024 [facility] Utilities Answer Date Recorded In [...] Take 1 tablet by mouth daily. 09/26/2024 levothyroxine (Synthroid, Levoxyl) 75 MCG tablet Take [...] 1.5 tablets by mouth nightly. Fe Asp Ara-Zmzc-D-Thre-B12 -FA (Multigen Folic) 70-150-2-1 MG tablet Take 1 tablet by mouth. furosemide (Lasix) 20 MG tablet 1 tablet. 12/02/2024 HYDROcodone-acetami nophen ([place]) 5-325 MG tablet Take 1 tablet by mouth every 6 hours as needed. 05/24/2024 lisinopril 20 MG tablet Take 1 tablet by mouth daily. 10/18/2024 losartan (Cozaar) 50 MG tablet Take 1 tablet by mouth. ondansetron ODT (Zofran-ODT) 4 MG disintegrating tablet 1 tablet. 12/02/2024 documented as of this encounter Plan of Treatment Upcoming Encounters Date Type Department Care Team (Latest Contact Info) Description 12/20/2024 2:00 PM EDT Pre-Admission Testing [facility] [address] [place] [address] 12/27/2024 7:30 AM EST Appointment [facility] Interventional Radiology [address] [place] [address] 12/30/2024 1:00 PM EST Office Visit [facility] Otolaryngology [address], 3[address] [place] [address] Yobani Benoit MD [address] [place] [address] 02/02/2025 9:00 AM EST Appointment [facility] Radiology [address] [place] [address] 05/24/2025 2:30 PM EDT Office Visit [facility] [address] [place] [address] Navya Woody MD [address] [place] [address] 06/07/2025 2:[address] [facility] [address], [address] [place] [address] Haseeb Dias MD [address] [place] [address] documented as of this encounter Goals Goal Patient Goal Type Associated Problems Recent Progress Patient-Stated? Author Autogenerat ed Goal Care Plan Autogenerated Problem No Alexandra Burgess documented as of this encounter Procedures Procedure Name Priority Date/Time Associated Diagnosis Comments VAS US CAROTID DUPLEX BILATERAL Routine 12/15/2024 12:34 PM EDT Occlusion and stenosis of bilateral carotid arteries documented in this encounter Results * VAS US Carotid [...] Cecy Archer MD on 12/15/2024 4:03 PM us Ezio FORBES CV VASCULAR PROCEDURES Evelyn l Result documented in this encounter Visit Diagnoses Diagnosis Occlusion and stenosis of bilateral carotid arteries documented in this encounter Additional Health Concerns Active Problems Noted Date Diagnosed Date Autogenerated Problem 12/15/2024 Infection Onset Date Last Indicated Resolved Time MRSA 11/04/2024 11/04/2024 Assessment Noted Time PHQ-9 Depression Total Score: 24 05/21/ 024 3:18 PM EDT A fall risk assessment has been complete d for the patient 12/15/2024 12:46 PM EDT A Body Mass Index follow-up plan has been documented for the patient 12/15/2024 5:34 PM EDT documented as of this encounter Care Teams Manager Student Services Relationship Specialty Start Date End Date Aman Hernandez MD [address] [phone] PCP - General Family Medicine 06/18/21 documented as of this encounter
--- OUTSIDE RECORDS SUMMARY | 2024-12-15 13:30 | XMS_ITS | Encounter Summary ---
Author Organization Healthcare Address [address] [place] [address] Care Team Providers Care Canvas Products Sales Representative Name Role Phone Aman Hernandez MD Primary Care Provider Encounter Details Date Type Department Care Team (Late st Contact Info) Description 12/15/2024 1:30 PM EDT [facility] Visit [facility] [address] [place] [address] Raymond Nuñez MD [address] [place] [address] Occlusion and stenosis of bilateral carotid arteries (Primary Dx); Pre-op exam Social History Tobacco Use Types Packs/Day Years [...] Patient unable to answer 10/31/2024 [facility] Utilities Answer Date Recorded In the past [...] Sign Reading Time Taken Comments Blood Pressure 148/90 12/15/2024 12:47 PM EDT Pulse 92 12/15/2024 12:47 PM EDT Temperature - - Respiratory Rate - - Oxygen Saturation 97% 12/15/2024 12:47 PM EDT Inhaled Oxygen Concentration - - Weight 57.7 kg (127 lb 3.3 oz) 12/15/2024 12:47 PM EDT Height - - Body Mass Index 23.27 12/13/2024 12:41 PM EDT documented in this encounter Miscellaneous Notes * Progress Notes - Ezio Estrada PA - 12/15/2024 1:30 PM EDT Images from the original note were not included. Patient IJonn Mata Date of 1960 Encounter Date 12/15/2024 Chief Complaint SAH, IVH History Of Present Illness [place] Mata is a 64 y.o. 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 Also notable zygomatic fracture with surgical intervention and right globehematoma s/p lateral canthotomy at OSH. Still at rehab, doing well, but still getting confused and having balance issues. Held ASA/plavix 2 weeks and has resumed. No new stroke symptoms. Accompanied by family. I saw her 2 days ago in my clinic for her head bleed (resolved) with CT and they expressed interest in establishing care for her carotid disease at as well, so I had them follow-up todayin Dr. Nuñez's clinic given prior US in June with >70% right carotid stenosis. Past Medical History She has a past medical history of Anxiety, Arthritis, Depression, Fibromyalgia, Headache, degenerative disc disease, Hyperlipidemia, Hypertension, Neuropathy, Otitis media (A couple months ago.), andStroke ([facility]/HCC). Surgical History She has a past surgical [...] smoke. She has never used smokeless tobacco. She reports that she does not currently use alcohol. She reports that she does not use drugs. Medications Current Medications[2] Allergies Cephalosporins, Other, Penicillin [...] 5/5 LLE 5/5 MUSCULOSKELETAL: Appropriate station and nonmagnetic gait PSYCHIATRIC: Pleasant mood and appropriate affect Imaging The following was personally independently reviewed: US: 50-69% right carotid stenosis and <50% left carotid stenosis, with right carotid occlusion. Assessment and Plan Carotid stenosis S/p left carotid stent [address] [facility] Left carotid stent patent, right carotid 70% stenosis on US in June, 80% on CTA. US today shows 50-69% right carotid stenosis and <50% left carotid stenosis, with right carotid occlusion Asymptomatic as far as right carotid stenosis goes (no left sided symptoms) Given severity of right carotid stenosis on recent reports even with newest report being a little less severe, patient is riding the line between a level for which treatment would be recommended and possible conservative management recommended. We recommend diagnostic cerebral angiogram with possible right carotid stent placement on 12/27/24 to definitively evaluate Decision for major surgery right diagnostic angiogram with possible right carotid stent placement on 12/27/24 Ordering labs: BMP CBC PTT PT/INR P2Y12 Remain on ASA and plavix Has EKG October NPO after midnight on the night before the procedure Risk Discussion and Counseling: We discussed the risks and benefits including but not limited to hemorrhage, stroke, infection, bleeding, adverse reaction to anesthesia, need for further surgery. They understood and elected to proceed. Consent was signed as benefits outweigh risks. Specific risk factors include prior CVA, vertebral artery occlusion The patient was counseled on the importance of: - aspirin therapy for management of atherosclerosis - statin therapy for control of hyperlipidemia and plaque stabilization - diabetes management's role in management of atherosclerosis - plavix therapy for stroke prevention Vertebral artery occlusion Right vertebral artery occluded, left patent Stable on US Lateral canthotomy right My team reached out regarding oculoplastics referral pending from Dr. Woody. The response was that first availability would be February, which this is a non emergent issue so that seems reasonable.Requested wait list per patient. Counseling: The patient and family was counseled [...] OF SERVICE: Patient was seen by myself and Dr. Raymond Nuñez Total time in minutes spent on face to face and qualifying non-face to face patient care related activities as outlined above on the date of service = 30 MADDISON ATTESTATION by: Ezio Estrada PA-C I saw the patient [id number], obtained and documented the medical history, performed and documented the physical exam, and reviewed imaging. I documented the plan of care in the EMR prior to any revisions made by the attending physician. Thank you. If there are any questions or concerns please feel free to contact us: [facility] Department of Neurosurgery [address] [place] [address] [place] [address] ; [1] Family History Problem Relation Name Age of Onset Diabetes Mother Diabetes Sister None Diabetes Brother Arthritis Mother's Brother GB Lucia Diabetes Brother None [2] Current Outpatient Medications Medication Sig Dispense Refill amLODIPine (Norvasc) 5 MG tablet Take 1 tablet (5 mg total) by mouth 1 (one) time each day. (Patient not taking: Reported on 12/13/2024) 30 tablet 5 Aspirin Low Dose 81 [...] eyes every 8 hours. 3.5 g 0 Fe Asp Xfg-Kcyy-B-Thre-B12-FA (Multigen Folic) 70-150-2-1 MG tablet Take 1 tablet by mouth. FLUoxetine (PROzac) 20 MG capsule Take 1 capsule by mouth every morning. folic acid (Folvite) 800 MCG tablet Take 1 tablet by mouth daily. (Patient not taking: Reported on 12/13/2024) furosemide (Lasix) 20 MG tablet 1 tablet. HYDROcodone-acetaminophen ([place]) 5-325 MG tablet Take 1 tablet by mouth every 6 hours as needed. hydrOXYzine pamoate (Vistaril) 25 MG capsule Take 1 capsule by mouth every 8 hours as needed for itching. 15 capsule 0 levothyroxine (Synthroid, Levoxyl) 75 MCG tablet Take 1 tablet by mouth daily. lisinopril 20 MG tablet Take 1 tablet by mouth daily. losartan (Cozaar) 50 MG tablet Take 1 tablet by mouth. mirtazapine (Remeron) 15 MG tablet Take 1 tablet by mouth nightly. naloxone (Narcan) 4 mg/0.1 mL nasal spray 1. Give 1 spray in nostril for no/slow breathing or cannot wake after opioid use 2. Call 911 3. Repeat in other nostril if symptoms continue (Patient not takin. Give 1 spray in nostril for no/slow breathing or cannot wake after opioid use 2. Call 911 3.Repeat in other nostril if symptoms continue Reported on 12/13/2024) 1 each 0 ondansetron ODT (Zofran-ODT) 4 MG disintegrating tablet 1 tablet. oxybutynin XL (Ditropan-XL) 5 MG 24 hr tablet Take 1 tablet by mouth daily. (Patient not taking: Reported on 12/13/2024) pramipexole (Mirapex) 1 MG tablet Take 1 tablet by mouth 3 times a day as needed. QUEtiapine (SEROquel) 100 MG tablet Take 1.5 tablets by mouth nightly. (Patient not taking: Reported on 12/13/2024) No current facility-administered medications for this visit. Cosigned by Raymond Nuñez MD at 12/18/2024 5:22 PM EDT Associated attestation - Raymond Nuñez MD - 12/18/2024 5:22 PM EDT I saw and examined the patient with the ALKA. I agree with the assessment and plan. A substantive portion of care was provided by the ALKA. documented in this encounter Plan of Treatment Upcoming Encounters Date Type Department Care Team (Latest Contact Info) Description 12/20/2024 2:00 PM EDT Pre-Admission Testing [facility] Pre-op Clinic [address] [place] [address] 12/27/2024 7:30 AM EST Appointment [facility] Interventional Radiology [address] [place] [address] 12/30/2024 1:00 PM EST Office Visit [facility] Otolaryngology [address], [address] [place] [address] Yobani Benoit MD [address] [place] [address] 02/02/2025 9:00 AM EST Appointment [facility] [address] [place] [address] 05/24/2025 2:30 PM EDT Office Visit [facility] [address] [place] [address] Navya Woody MD [address] [place] [address] 06/07/2025 2:00 PM EDT Consult [place] [facility] [address] [place] [address] Haseeb Dias MD [address] [place] [address] documented as of this encounter Goals Goal Patient Goal Type Associated Problems Recent Progress Patient-Stated? Author Autogenerat ed Goal Care Plan Autogenerated Problem No Alexandra Burgess documented as of this encounter Results * (ABNORMAL) P2Y12 platelet function (12/15/2024 1:53 PM EDT) P2Y12 PRU 43(L) 194 - 418 PRU 12/15/2024 2:57 PM EDT [facility] Blood Venous blood specimen / Unknown Venipuncture / Unknown 12/15/2024 1:53 PM EDT 12/15/2024 1:55 PM EDT Narrative [facility] - 12/15/2024 2:57 PM EDT P2Y12 Result Interpretation: P2Y12 values < 194 PRU (low end of reference range) are specific evidence of a P2Y12 inhibitor effect. Test results are in P2Y12 reaction units (PRU). This measures the extent of platelet aggregation in the presence of P2Y12 inhibitor drugs such as clopidogrel (Plavix), prasugrel (Effient), ticagrelor (Brilinta), and ticlopidine (Ticlid). Patients who have been treated with Glycoprotein IIb/IIIa inhibitors should not be tested until platelet function has recovered. This time period is approximately 14 days after discontinuation of abciximab (ReoPro) and up to 48 hours after discontinuation of eptifibatide (Integrilin) and tirofiban (Aggrastat). Result may not be valid for platelet counts < 120 k/uL. The P2Y12 test results should be interpreted in conjunction with other clinical and laboratory data available to the clinician. Testing performed in the [facility]. us Raymond Nuñez MD LAB BLOOD ORDERABLES Final Result Performing Organization Address City/[facility]/ZIP Co de Phone Number [facility] [address] [place] [address] * (ABNORMAL) Prealbumin (12/15/2024 1:53 PM EDT) Prealbumin, Plasma 19.1(L) 20.0 - 41.0 mg/dL 12/15/2024 3:05 PM EDT [facility] Blood Venous blood specimen / Unknown Venipuncture / Unknown 12/15/2024 1:53 PM EDT 12/15/2024 1:55 PM EDT Raymond Nuñez MD LAB BLOOD ORDERABLES Final Result Performing Organization Address City/[facility]/ZIP Co de Phone Number [facility] [address] [place] [address] * (ABNORMAL) Comprehensive metabolic panel (12/15/2024 1:53 PM EDT) Glucose, Plasma 97 74 - 99 mg/dL 12/15/2024 3:05 PM EDT [facility] BUN, Plasma 12 8 - 23 mg/dL 12/15/2024 3:05 PM EDT [facility] Creatinine, Plasma 0.90 0.60 - 1.10 mg/dL 12/15/2024 3:05 PM EDT [facility] BUN/Creatinine Ratio 13 12/15/2024 3:05 PM EDT [facility] Sodium, Plasma 142 136 - 145 mmol/L 12/15/2024 3:05 PM EDT [facility] Potassium, Plasma 3.9 3.6 - 4.9 mmol/L 12/15/2024 3:05 PM EDT [facility] Chloride, Plasma 108(H) 97 - 107 mmol/L 12/15/2024 3:05 PM EDT [facility] CO2, Plasma 26 22 - 29 mmol/L 12/15/2024 3:05 PM EDT [facility] Anion Gap 8 6 - 16 mmol/L 12/15/2024 3:05 PM EDT [facility] Total Calcium, Plasma 9.5 8.9 - 10.2 mg/dL 12/15/2024 3:05 PM EDT [facility] Total Protein 7.3 6.3 - 7.9 g/dL 12/15/2024 3:05 PM EDT [facility] Albumin, Plasma 4.4 3.5 - 5.2 g/dL 12/15/2024 3:05 PM EDT [facility] AST, Plasma 18 10 - 35 U/L 12/15/2024 3:05 PM EDT [facility] ALT, Plasma 18 10 - 35 U/L 12/15/2024 3:05 PM EDT [facility] Alkaline Phosphatase, Plasma 125 46 - 142 U/L 12/15/2024 3:05 PM EDT [facility] Total Bilirubin, Plasma 0.4 0.2 - 1.1 mg/dL 12/15/2024 3:05 PM EDT [facility] eGFRcr 70.7 mL/min/1.7 3m*2 12/15/2024 3:05 PM EDT [facility] Comment:Reported eGFRcr in m L/min/1.73m2 is based the CKD-EPI 2020 equation that does not use a race coefficient. Blood Venous blood specimen / Unknown Venipuncture / Unknown 12/15/2024 1:53 PM EDT 12/15/2024 1:55 PM EDT us Raymond Nuñez MD LAB BLOOD ORDERABLES Final Result Performing Organization Address City/[facility] Co de Phone Number [facility] [address] [place] [address] * Protime-INR (12/15/2024 1:53 PM EDT) Prothrombin Time 14.0 12.0 - 14.3 sec LAB COAGULATION METHOD 12/15/2024 3:12 PM EDT [facility] INR 1.0 0.9 - 1.1 LAB COAGULATION METHOD 12/15/2024 3:12 PM EDT [facility] Blood Venous blood specimen / Unknown Venipuncture / Unknown 12/15/2024 1:53 PM EDT 12/15/2024 1:55 PM EDT Narrative [facility] - 12/15/2024 3:12 PM EDT OPTIMAL INR RANGES FOR PATIENT ON ORAL ANTICOAGULANT THERAPY Prevention of venous thromboembolism INR 2.0 to 3.0 In patients with heart disease: Atrial fibrillation INR 2.0 to 3.0 Valvular heart disease INR 2.0 to 3.0 Tissue heart valves INR 2.0 to 3.0 Mechanical prosthetic valves INR 2.5 to 3.5 Prevention of recurrent MT INR 2.5 to 3.5 Raymond Nuñez MD LAB BLOOD ORDERABLES Final Result Performing Organization Address [facility] Co de Phone Number [facility] [address] [place] [address] * (ABNORMAL) APTT (12/15/2024 1:53 PM EDT) aPTT 23(L) 25 - 35 sec LAB COAGULATION METHOD 12/15/2024 3:12 PM EDT [facility] Blood Venous blood specimen / Unknown Venipuncture / Unknown 12/15/2024 1:53 PM EDT 12/15/2024 1:55 PM EDT Raymond Nuñez MD LAB BLOOD ORDERABLES Final Result Performing Organization Address City/[facility]/ZIP Co de Phone Number [facility] [address] [place] [address] * (ABNORMAL) CBC and differential (12/15/2024 1:53 PM EDT) WBC Count 8.41 3.70 - 10.30 10*3/uL LAB HEMATOLOGY METHOD 12/15/2024 5:32 PM EDT [facility] RBC Count 3.88(L) 3.90 - 5.20 10*6/uL LAB HEMATOLOGY METHOD 12/15/2024 5:32 PM EDT [facility] HGB 10.8(L) 11.2 - 15.7 g/dL LAB HEMATOLOGY METHOD 12/15/2024 5:32 PM EDT [facility] HCT 34.6 34.0 - 45.0 % LAB HEMATOLOGY METHOD 12/15/2024 5:32 PM EDT [facility] Platelet Count 303 155 - 369 10*3/uL LAB HEMATOLOGY METHOD 12/15/2024 5:32 PM EDT [facility] MCV 89 79 - 98 fL LAB HEMATOLOGY METHOD 12/15/2024 5:32 PM EDT [facility] MCH 27.8 26.0 - 32.0 pg LAB HEMATOLOGY METHOD 12/15/2024 5:32 PM EDT [facility] MCHC 31.2 30.7 - 35.5 g/dL LAB HEMATOLOGY METHOD 12/15/2024 5:32 PM EDT [facility] RDW 13.8 11.5 - 14.5 % LAB HEMATOLOGY METHOD 12/15/2024 5:32 PM EDT [facility] MPV 10.1 8.8 - 12.5 fL LAB HEMATOLOGY METHOD 12/15/2024 5:32 PM EDT [facility] nRBC 0.0 <=0.0 per 100 WBCs LAB HEMATOLOGY METHOD 12/15/2024 5:32 PM EDT [facility] Differential Type Manual LAB HEMATOLOGY METHOD 12/15/2024 5:32 PM EDT [facility] Blood Venous blood specimen / Unknown Venipuncture / Unknown 12/15/2024 1:53 PM EDT 12/15/2024 1:55 PM EDT Narrative [facility] - 12/15/2024 5:32 PM EDT Therapeutic decision making should be based on absolute values, rather than percentages. The previously reported component Neutrophils % is no longer being reported.The previously reported component Lymphocytes % is no longer being reported.The previously reported component Monocytes % is no longer being reported.The previously reported component Eosinophils % is no longer being reported.The previously reported component Basophils % is no longer being reported.The previously reported component Immature Granulocytes % is no longer being reported.The previously reported component Absolute Neutrophils is no longer being reported.The previously reported component Absolute Lymphocytes is no longer being reported.The previously reported component Absolute Monocytes is no longer being reported.The previously reported component Absolute Eosinophils is no longer being reported.The previously reported component Absolute Basophils is no longer being reported.The previously reported component Absolute Immature Granulocytes is no longer being reported. us Raymond Nuñez MD LAB BLOOD ORDERABLES Final Result [facility] [address] [place] [address] documented in this encounter Visit Diagnoses Diagnosis Occlusion and stenosis of bilateral carotid arteries- Primary Pre-op exam documented in this encounter Additional Health Concerns [...] documented as of this encounter Care Teams Can[employer] Sales Representative Relationship Specialty Start Date End Date Aman Hernandez MD [address] [facility] [address] [place] [address] PCP - General Family Medicine 06/18/21 documented as of this encounter
[2024-12-19] VITALS (9 sets, daily range): BP systolic 114–204; BP diastolic 52–96; PULSE 65–98; RESP 20–21; TEMP 36.7–36.8; O2SAT 91–99; BMI 22.1
--- NOTE | 2024-12-19 12:33 | PC.NURSE ---
Pt A&O to person and place, has some confusion on time and situation. Pt family bedside states this is her baseline.
[2024-12-19 12:37] LABS: POC Glucose,Bedside 138 gm/dL (70-110)
--- OUTSIDE RECORDS SUMMARY | 2024-12-19 12:39 | XMS_ITS | Clinical Summary ---
Author Organization [facility] Address [address] [place] [address] Phone Care Team Providers Care Mdm Developer Name Role Phone Jovanni Kelly MD [ ] Conditions or Problems Problem Name Problem Code Onset Date Status Entry Date Provider Comment Standard Description Annotate Pneumonia, organism unspecified 997981409 (SNOMED CT) Active 05/09 Katherine W Pneumonia [...] 05/09 Katherine W Pyothorax without fistula Fever 802772882 (SNOMED CT) Active 05/09 Katherine W Fever Leukocytosis 129669724 (SNOMED CT) Active 05/09 Katherine W Leukocytosis PLEURITIC CHEST PAIN 5062182 (SNOMED CT) Active 05/09 Katherine W Pleuritic pain THRUSH 45203580 (SNOMED CT) Active 05/09 Katherine W Candidiasis ETOH F10.20 (ICD-10-CM) Active 05/09 Katherine W Alcohol dependence, uncomplicated TOBACCO ABUSE 02620492 (SNOMED CT) Active 05/09 Katherine Neal Tobacco dependence syndrome Medications Medication Instructions Start Date Stop Date Generic Name NDC Provider CEFTRIAXONE SODIUM 2 GM SOLR 2gm IV daily [facility] x6197 [facility] 05/31 CEFTRIAXONE SODIUM 21193161459 Eva Horvath RN CYCLOBENZAPRINE HCL TABLET CYCLOBENZAPRINE HCL TABS 90702387564 Smita Helena LOPRESSOR TABS METOPROLOL TARTRATE TABS 59129369050 Smita Z LEVOTHYROXINE SODIUM TABS 05/31 LEVOTHYROXINE SODIUM TABS 14817816086 Smita Malik DIFLUCAN 150 MG TABS 1 po daily 05/31 FLUCONAZOLE 58941237030 Smita Malik HYDROCODONE-ACETAM INOPHEN TABS HYDROCODONE-ACETA MINOPHEN TABS 28894438414 Jovanni Kelly MD DIAZEPAM TABS DIAZEPAM TABS 28534729424 Jovanni Kelly MD TEMAZEPAM CAPS TEMAZEPAM CAPS [id number] Jovanni Kelly MD METOPROLOL TARTRATE TABS 05/19 METOPROLOL TARTRATE TABS 54876213912 Jovanni Kelly MD SIMVASTATIN TABLET 05/19 SIMVASTATIN TABS 42966041638 Jovanni Kelly MD DIFLUCAN 150 MG TABS 1 po daily 0 08/31 FLUCONAZOLE 10083128470 Jovanni Kelly MD CEFTRIAXONE SODIUM 2 GM SOLR 2gm IV daily [facility] x6197 [facility] 05/31 CEFTRIAXONE SODIUM 18772040047 Jolie Pineda RN LEVOTHYROXINE SODIUM TABS 0 05/24 LEVOTHYROXINE SODIUM TABS 31231685191 Jovanni Kelly MD SIMVASTATIN TABLET 0 07/05 SIMVASTATIN TABS 60809706736 Jovanni Kelly MD METOPROLOL TARTRATE TABS 0 05/24 METOPROLOL TARTRATE TABS 57884069236 Jovanni Kelly MD LISINOPRIL TABS LISINOPRIL TABS 12810847783 Jovanni Kelly MD CEFTRIAXONE SODIUM 2 GM SOLR 2gm IV daily [facility] x6197 OP ONC FOR PICC CARE x6564 05/10 CEFTRIAXONE SODIUM 14207105169 Jolie Pineda RN Medications Administered No information [...]
--- OUTSIDE RECORDS SUMMARY | 2024-12-19 12:40 | XMS_ITS | Encounter Summary ---
Author Organization Healthcare Address [address] [place] [address] Care Team Providers Care Regional Sales Representative Name Role Phone Aman Hernandez MD Primary Care Provider Encounter Details Date Type Department Care Team (Late st Contact Info) Description 12/05/2024 [facility]phone [place] [facility] [address], [address] [place] [address] Messi Medrano Social History Tobacco [...] any time in the past [address] [facility], were you homeless or living in a snf (including now)? Patient unable to answer 10/31/2024 [facility] Utilities Answer Date Recorded In the past 12 months has e [employer], gas, oil, or water [employer] threatened to shut off services in your [...] Description 12/20/2024 2:00 PM EDT Pre-Admission Testing [facility] Pre-op Clinic [address] [place] [address] 12/27/2024 7:30 AM EST Appointment [facility] Inter[facility] Radiology [address] [place] [address] 12/30/2024 1:00 PM EST Office Visit [facility] Otolaryngology [address] [place] [address] Yobani Benoit MD [address] [facility] [address] [place] [address] 02/02/2025 9:00 AM EST Appointment [facility] [address] [place] [address] 05/24/2025 2:30 PM EDT Office Visit [facility] [address] [place] [address] Navya Woody MD [address] [place] [address] 06/07/2025 2:00 PM EDT Consult [place] [facility] [address] [place] [address] Haseeb Dias MD [address] [place] [address] documented as of this encounter [...] documented as of this encounter Care Teams Regional Sales Representative Relationship Specialty Start Date End Date Aman Hernandez MD [address] [place] [address] PCP - General Family Medicine 06/18/21 documented as of this encounter
--- OUTSIDE RECORDS SUMMARY | 2024-12-19 12:40 | XMS_ITS | Encounter Summary ---
Author Organization [facility] Address [address] [place] [address] Care Team Providers Care Cpr Ambulance Driver Name Role Phone Aman Hernandez MD [...] (including now)? Patient unable to answer 10/31/2024 [facility] Utilities Answer Date Recorded In [...] Description 12/20/2024 2:00 PM EDT Pre-Admission Testing [facility] [address], [address] [place] [address] 12/27/2024 7:30 AM EST Appointment [facility] Interventional Radiology [address] [place] [address] 12/30/2024 1:00 PM EST Office Visit [facility] Otolaryngology [address], [address]rd [place] [address] Yobani Benoit MD [address] [facility] [address] [place] [address] 02/02/2025 9:00 AM EST Appointment [facility] Radiology [address] [place] [address] 05/24/2025 2:30 PM EDT Office Visit [facility] [address] [place] [phone] Navya Woody MD [address] [facility] [address] [place] [address] 06/07/2025 2:00 PM EDT Consult [facility] [address], [address] [place] [address] Haseeb Dias MD [address] [facility] [address] [place] [address] documented as of this encounter Visit Diagnoses [...] documented as of this encounter Care Teams Cpr Ambulance Driver Relationship Specialty Start Date End Date Aman Hernandez MD [address] [facility] [address] [place] [address] PCP - General Family Medicine 06/18/21 documented as of this encounter
--- OUTSIDE RECORDS SUMMARY | 2024-12-19 12:40 | XMS_ITS | Encounter Summary ---
Author Organization Healthcare Address [address] [place] [address] Care Team Providers Care Tipple Repairer Name Role Phone Aman Hernandez MD Primary Care Provider Encounter Details Date Type Department Care Team (Late st Contact Info) Description 12/13/2024 [facility] [address] [place] [address] Aroldo Cam MD [address] [address] Social History Tobacco Use Types [...] any time in the past 12 m [facility], were you homeless or living in a assisted (including now)? Patient unable to answer 10/31/2024 [facility] Utilities Answer Date Recorded In the past [...] Description 12/20/2024 2:00 PM EDT Pre-Admission Testing [facility] Pre-op Clinic [address], 1st [place] [address] 12/27/2024 7:30 AM EST Appointment [facility] Interventional Radiology [address] [place] [address] 12/30/2024 1:00 PM EST Office Visit [facility] Otolaryngology [address], 3rd [place] [address] Yobani Benoit MD [address] [place] [address] 02/02/2025 9:00 AM EST Appointment [facility]iology [address] [place] [address] 05/24/2025 2:30 PM EDT Office Visit [facility] [address] [place] [address] Navya Woody MD [address] [place] [address] 06/07/2025 2:00 PM EDT Consult [place] [facility] [address], 1[address] [place] [address] Haseeb Dais MD [address] [place] [address] documented as of this encounter [...] documented as of this encounter Care Teams Tipple Repairer Relationship Specialty Start Date End Date Aman Hernandez MD [address] [place] [address] PCP - General Family Medicine 06/18/21 documented as of this encounter
--- OUTSIDE RECORDS SUMMARY | 2024-12-19 12:40 | XMS_ITS | Encounter Summary ---
Author Organization [facility] [address] [facility] [place] [address] Care Team Providers Care Fur Dry Cleaner Hand Name Role Phone Aman Hernandez MD Primary Care Provider Encounter Details Date Type Department Care Team (Late st Contact Info) Description 11/30/2024 Telephone [facility] [address] [place] [address] Navya Woody MD [address] [facility] [address] [place] [address] Social History Tobacco Use Types [...] time in the past 12 m [facility], were you homeless or living in a intermediate (including now)? Patient unable to answer 10/31/2024 [facility] Utilities Answer Date Recorded [...] moved up please. Best contact number: Other: [phone] Optimal time of day to reach caller: [...] Description 12/20/2024 2:00 PM EDT Pre-Admission Testing [facility] Pre-op Clinic [address], [address] [place] [address] 12/27/2024 7:30 AM EST Appointment [facility] Interventional Radiology [address] [place] [address] 12/30/2024 1:00 PM EST Office Visit [facility] Otolaryngology [address], 3rd [place] [address] Yobani Benoit MD [address] [place] [address] 02/02/2025 9:00 AM EST Appointment [facility] Radiology [address] [place] [address] 05/24/2025 2:30 PM EDT Office Visit [facility] [address] [place] [address] Navya Woody MD [address] [place] [address] 06/07/2025 2:00 PM EDT Consult [place] [facility] [address], [address] [place] [address] Haseeb Dias MD [address] [place] [address] documented as of this encounter [...] documented as of this encounter Care Teams Fur Dry Cleaner Hand Relationship Specialty Start Date End Date Aman Hernandez MD [address] [facility] [address] [place] [address] PCP - General Family Medicine 06/18/21 documented as of this encounter
--- OUTSIDE RECORDS SUMMARY | 2024-12-19 12:40 | XMS_ITS | Encounter Summary ---
Author Organization Healthcare Address [address] [place] [address] Care Team Providers Care Crust Sorter Name Role Phone Aman Hernandez MD Primary [...] any time in the past 12 m [facility], were you homeless or living in a penitentiary (including now)? Patient unable to answer 10/31/2024 [facility] Utilities Answer Date Recorded In [...] Description 12/20/2024 2:00 PM EDT Pre-Admission Testing [facility] Pre-op Clinic [address], [address] [place] [address] 12/27/2024 7:30 AM EST Appointment [facility] Interventional Radiology [address] [place] [address] 12/30/2024 1:00 PM EST Office Visit [facility] Otolaryngology [address], 3rd [place] [address] Yobani Benoit MD [address] [facility] [address] [place] [address] 02/02/2025 9:00 AM EST Appointment [facility] Radiology [address] [place] [address] 05/24/2025 2:30 PM EDT Office Visit [facility] [address] [place] [address] Navya Woody MD [address] [place] [address] 06/07/2025 2:00 PM EDT Consult [facility] [address], [address] [place] [address] Haseeb Dias MD [address] [place] [address] documented as of this encounter Visit Diagnoses [...] documented as of this encounter Care Teams Crust Sorter Relationship Specialty Start Date End Date Aman Hernandez MD [address] [facility] [address] [place] [address] PCP - General Family Medicine 06/18/21 documented as of this encounter
--- OUTSIDE RECORDS SUMMARY | 2024-12-19 12:40 | XMS_ITS | Encounter Summary ---
Author Organization Healthcare Address [address] [place] [address] Care Team Providers Care Excelsior Machine Tender Name Role Phone Aman Hernandez MD [...] any time in the past 12 m [facility], were you homeless or living in a longterm (including now)? Patient unable to answer 10/31/2024 [facility] Utilities Answer Date Recorded In [...] [facility] [address], [address] [place] [address] 12/27/2024 7:30 AM EST Appointment [facility] Interventional Radiology [address] [place] [address] 12/30/2024 1:00 PM EST Office Visit [facility] Otolaryngology [address], 3rd [place] [address] Yobani Benoit MD [address] [facility] [address] [place] [address] 02/02/2025 9:00 AM EST Appointment [facility] Radiology [address] [place] [address] 05/24/2025 2:30 PM EDT Office Visit [facility] [address] [place] [address] Navya Woody MD [address] [place] [address] 06/07/2025 2:00 PM EDT Consult [facility] [address], [address] [place] [address] Haseeb Dias MD [address] [place] [address] documented as of this encounter Visit Diagnoses [...] documented as of this encounter Care Teams Excelsior Machine Tender Relationship Specialty Start Date End Date Aman Hernandez MD [address] [facility] [address] [place] [address] PCP - General Family Medicine 06/18/21 documented as of this encounter
--- OUTSIDE RECORDS SUMMARY | 2024-12-19 12:41 | XMS_ITS | Data Portability ---
Author Organization [facility] CARA MunozS DEL[facility] CLOSED Address [address] [facility] [place] [address] Assessment Encounter Date Assessment Date Assessment LastModified [...] Woodall MD [facility] (In House Lab), [address] [facility], [place], [address], 8 08:30:20 Procedures None recorded. Surgeries None recorded. Imaging None recorded. Medication Orders Cortisone (hydrocort isone) 1 % topical cream 2018 019 INTERFACE [facility], [address] [facility] [address] [place], [place], [id number], 9 12:23:49 Savella 100 mg tablet 2018 019 INTERFACE [facility], [address] , [place], [address], 9 12:12:52 nabumetone 750 mg tablet 2018 019 INTERFACE [facility], [address] , [place], [address], 9 12:12:51 Depo-Medro l 80 mg/mL suspension for injection 2018 019 [email or web address] Not available 9 11:57:03 amitriptyl ine 100 mg tablet 2018 019 INTERFACE [facility], [address] [facility], [place], [address], 9 12:12:52 Savella 100 mg tablet 2018 019 INTERFACE [facility], [address] [facility], [place], [address], 9 11:45:20 nabumetone 750 mg tablet 2018 019 INTERFACE [facility], [address] [facility], [place], [address], 9 11:46:16 Depo-Medro l 80 mg/mL suspension for injection 2018 019 [email or web address] Not available 9 12:00:45 amitriptyl ine 100 mg tablet 2018 019 INTERFACE [facility], [address] [facility], [place], [address], 9 11:45:20 nabumetone 750 mg tablet 2017 018 INTERFACE [facility], [address] [facility], [place], [address], 8 11:57:29 Savella 100 mg tablet 2017 018 INTERFACE [facility], [address] , [place], [address], 8 11:57:30 Depo-Medro l 80 mg/mL suspension for injection 2017 018 Not available 9 11:34:24 amitriptyl ine 100 mg tablet 2017 018 INTERFACE [facility], [address], [place], [address], 8 11:57:29 nabumetone 750 mg tablet 2017 018 INTERFACE [facility], [address], [place], [address], 8 12:12:01 Savella 100 mg tablet 2017 018 INTERFACE [facility], [address], [place], [address], 8 12:05:04 amitriptyl ine 100 mg tablet 2017 018 INTERFACE [facility], [address], [place], [address], 8 12:10:22 Savella 100 mg tablet 2017 018 INTERFACE [facility], [address], [place], [address], 8 13:57:49 cyclobenza antonio 10 mg tablet 2017 018 [email or web address] [facility], [address], [place], [address], 8 12:00:12 amitriptyl ine 75 mg tablet 2017 018 [email or web address] [facility], [address], [place], [address], 8 11:42:42 Patient TargetsNo targets recorded. Patient Instructions Encounter Date Encounter Id Patient Instructions Last Modified By Organization Details Last Modified Time 07/17/2017 [id number] chronic pain: care instructions smoberly Not available 07/17/2017 13:57:48 neuropathic pain : care instructions smoberly Not available 07/17/2017 13:57:48 Quitting Tobacco : Care Instructions smoberly Not available 07/17/2017 13:57:48 10/16/2017 [id number] arthritis: care instructions smoberly Not available 10/16/2017 12:12:00 osteoarthritis: care instructions smoberly Not available 10/16/2017 12:12:00 chronic pain: care instructions smoberly Not available 10/16/2017 12:05:02 neuropathic pain : care instructions smoberly Not available 10/16/2017 12:05:02 Quitting Tobacco : Care Instructions smoberly Not available 10/16/2017 12:05:02 01/13/2018 [id number] arthritis: care instructions smoberly Not available 01/13/2018 11:57:27 osteoarthritis: care instructions smoberly Not available 01/13/2018 11:57:27 chronic pain: care instructions smoberly Not available 01/13/2018 11:57:27 neuropathic pain : care instructions smoberly Not available 01/13/2018 11:57:27 Quitting Tobacco : Care Instructions smoberly Not available 01/13/2018 11:57:27 04/14/2018 [id number] chronic pain: care instructions smoberly Not available 04/14/2018 11:45:18 neuropathic pain : care instructions smoberly Not available 04/14/2018 11:45:18 arthritis: care instructions smoberly Not available 04/14/2018 11:45:18 osteoarthritis: care instructions smoberly Not available 04/14/2018 11:45:18 Quitting Tobacco : Care Instructions smoberly Not available 04/14/2018 11:45:18 10/12/2018 [id number] chronic pain: care instructions smoberly Not available [...] racquel: Terrence, Gallo;Stat us: Active Not Available [facility] 6 01:37:07 Fibromyal diamond 394271307 Active 2016 NANCY BARKER, INVENTORY CONTROL ASSISTANT [address] [place], [address] , [facility] 7 10:20:34 Problem Notes None recorded. Procedures Surgical History Date Name Laterality Status Provider Name and Address Organization Details Recorded Time Carpal tunnel surgery completed Nicolasa Barnhart [facility] 06/23/2016 10:23:06 Other completed Amairani Hilton [facility] 09/08/2016 10:57:20 Imaging Results None recorded. Procedure Notes None recorded. Medical Equipment None Reported. Allergies Allergen ID Allergen Name Allergen Category Reaction Reaction Severity Criticality Documentation Date Start Date Code Code System Note Provider Name and Address Organization Details Recorded Time 845741 Product containin g penicilli n (product) medicatio n Not available Not available Not available 01/18/20162006 58990 8001 SNOMED Comme nt: Creat ed By: Heather De Anda Creat ed Date: 2006 10:03 :06 AM; Not Available [facility] 6 04:22:16 Medications Name Sig Start Date [...] mg by injectio n route. 10/16 completed [facility] #[id number] 06-02 Not Available Not Available Not [...] mg by injectio n route. 2018 active [facility] #[id number] 63-01 Not Available Not Available Not [...] Updated DateTime 9 160.02 cm 24.8 kg/m2 84379.9 3 g 18 /min 86 /min 127/50 mm[Hg] Perri Kaba [facility] 9 11:34:13 Date Recorded Body height Body mass index (BMI) Body weight Heart rate Systolic And Diastolic Provider Name and Address Organization Details Last Updated DateTime 07/17/2017 160.02 cm 21.1 kg/m2 23000.49 g 105 /min 205/103 mm[Hg] Amairani Hilton [facility] 07/17/2017 13:10:11 Date Recorded Body height Body mass index (BMI) Body weight Heart rate Respiratory rate Systolic And Diastolic Provider Name and Address Organization Details Last Updated DateTime 9 160.02 cm 25.7 kg/m2 69412.8 9 g 93 /min 18 /min 184/93 mm[Hg] Laurence Worley [facility] 9 12:05:58 Date Recorded Body height Body mass index (BMI) Body weight Heart rate Systolic And Diastolic Provider Name and Address Organization Details Last Updated DateTime 10/16/2017 160.02 cm 23.2 kg/m2 73723.6 g 99 /min 186/103 mm[Hg] Amairani Hilton [facility] 10/16/2017 11:39:42 Date Recorded Body height Body mass index (BMI) Body weight Heart rate Systolic And Diastolic Provider Name and Address Organization Details Last Updated DateTime 01/13/2018 160.02 cm 24.1 kg/m2 85490.56 g 76 /min 136/60 mm[Hg] Amairani Hilton [facility] 01/13/2018 11:44:37 Social History Question Answer Notes LastModified by Organizat ion Details LastModified Time Tobacco Smoking Status Former Smoker Laurence Worley [facility] 10/12/2018 12:01:03 How Much Tobacco Do You Chew? None [email or web address] Information not available 10/12/2018 What Was The [...] used smokeless tobacco? Never used smokeless tobacco [email or web address] Information not available 10/12/2018 Do you or have you ever used e-cigarettes or vape? Never used electronic cigarettes [email or web address] Information not available 10/12/2018 Mental Status None recorded. Family History Relationship Description Onset Age of this Age Resolved Age Notes LastModified by Organization Details LastModified Time Father Myocardial infarction 71 [email or web address] Not available 12/25 11:42:17 Father Arthritis [email or web address] Not availa ble 09/08/2016 10:56:47 Maternal Aunt Cerebrovascu lar accident [email or web address] Not available 11:42:17 Brother Arthritis [email or web address] Not avail able 09/08/2016 10:56:54 Sister Arthritis [email or web address] Not availa ble 09/08/2016 10:56:59 Notes: old [...] ICD10 Code Diagnosis IMO Codes Diagnosis Note [id number] NANCY BARKER APRN [facility] [address] [place] [address] 06/23/2016 09:56:50 06/23/2016 10:51:34 Pain of multiple joints 02148072 M25.50 chronic and recurring bilateral hand pains and stiffnessg rip is decreasedm ultiple nodular activity on hands and feetpredni sone trial x 3 weeks and then f/u in 1 month [id number] NANCY BARKER APRN [facility]OL OGJonathan [address] [place] [address] 09/08/2016 09:55:07 09/08/2016 11:30:21 Neuropathy 205872112 G62.9 chronic and recurring neuropathi c burning and tingling into bilateral upper and lower extremitie s exacerbate d by aleah butler provide with gabapentin refills and have her sign a controlled substance agreementk asper today Fibromyalgia 141894643 M 79.7 refills today labs are good normal systemic exam [id number] NANCY BARKER APRN [facility] O[place] [id number] 1 12/22/2016 09:11:25 12/23/2016 08:26:18 Neuropathy 350003699 G62.9 chronic and recurring neuropathi c burning and tingling into bilateral upper and lower extremitie s exacerbate d by aleah butler provide with gabapentin refills and have her sign a controlled substance agreementk asper today Fibromyalgia 062029161 M 79.7 refills today labs are good normal systemic exam Chronic low back pain 27 8740713 M54.5 with left sided stiffness; sciatica worsenedwi ll provide with 120 mg IM injection in the left buttocks today [id number] NANCY BARKER APRN RHE[facility]OL [place] [address] 1 03/24/2017 11:07:54 03/24/2017 14:21:04 Fibromyalgia 385388905 M79.7 refills today labs are good normal systemic exam Neuropathy 716738138 G62 .9 chronic and recurring neuropathi c burning and tingling into bilateral upper and lower extremitie s exacerbate d by aleah varghesetopped the neurontin on her ownwill start her on amitriptyl ine Chronic low back pain 27 9649494 M54.5 with left sided stiffness; sciatica worsened bilaterall ywill provide with 120 mg IM injection in the left buttocks today [id number] NANCY BARKER APRN RHEUMATOL [place] [id number] 1 07/17/2017 12:57:55 07/17/2017 14:09:03 Fibromyalgia 860584854 M79.7 refills todaylabs are goodsympto matic complaints will continue savella and increase the amitriptyl ine Neuropathy 884189929 G62 .9 chronic and recurring neuropathi c burning and tingling into bilateral upper and lower extremitie s exacerbate d by aleah varghesetopped the neurontin on her owncontinu e her on amitriptyl ine Chronic low back pain 27 2847738 M54.5 with left sided stiffness; sciatica continues Chronic pain 83311096 G8 9.29 recurring pain and tenderness secondary to oa, fibromyalg ia with being off pain meds she is crying and worsening I discussed with her and she would like a pain management evaluation [id number] NANCY BARKER APRN RHEUMATOL [facility] [address] [place] [address] 10/16/2017 11:19:27 10/16/2017 13:01:12 Fibromyalgia 025870778 M79.7 refills todaylabs are goodsympto matic complaints will continue savella and increase the amitriptyl ine Neuropathy 039423524 G62 .9 chronic and recurring neuropathi c burning and tingling into bilateral upper and lower extremitie s exacerbate d by fibromyalg iastopped the neurontin on her owncontinu e her on amitriptyl inefailed lyrica and gabapentin Chronic low back pain 27 6907586 M54.5 with left sided stiffness; sciatica continues Chronic pain 90878694 G8 9.29 recurring pain and tenderness secondary to oa, fibromyalg ia with being off pain meds she is crying and worsening I discussed with her and she did go to the pain management and they told her they couldn't help her she reports she is feeling like a drug addict, but she reports she is off her Osteoarthritis 413688109 M19.90 [id number] NANCY BARKER APRN RHEUMATOL [facility] [address] [place] [address] 01/13/2018 11:18:09 01/13/2018 12:11:34 Fibromyalgia 286990846 M79.7 refills todaylabs are goodsympto matic complaints will continue savella and increase the amitriptyl ine Neuropathy 354013740 G62 .9 chronic and recurring neuropathi c burning and tingling into bilateral upper and lower extremitie s exacerbate d by fibromyalg iastopped the neurontin on her owncontinu e her on amitriptyl inefailed lyrica and gabapentin Chronic low back pain 27 1412097 M54.5 with left sided stiffness; sciatica continues Chronic pain 27239262 G8 9.29 recurring pain and tenderness secondary to oa, fibromyalg ia with being off pain meds she is crying and worsening I discussed with her and she did go to the pain management and they told her they couldn't help her she reports she is feeling like a drug addict, but she reports she is off her Osteoarthritis 651898760 M19.90 chronic recurring degenerati ve joint changes will continue with nabumetone Pain of le ft hip joint 6905564398 34175 M25.552 chronic and recurring degenerati ve changes she reports left hip pain recurring with muscle pain and tenderness will provide with an IM injection of 80 mg depo medrol today [id number] NANCY BARKER APRN [facility] [place] [address] [place] [address] 04/14/2018 11:22:52 04/14/2018 11:58:25 Osteoarthritis 235695849 M19.90 chronic recurring degenerati ve joint changes will continue with nabumetone Fibromyalgia 095478549 M 79.7 refills todaylabs are goodsympto matic complaints will continue savella and increase the amitriptyl ine Neuropathy 342327285 G62 .9 chronic and recurring neuropathi c burning and tingling into bilateral upper and lower extremitie s exacerbate d by fibromyalg iastopped the neurontin on her owncontinu e her on amitriptyl inefailed lyrica and gabapentin Chronic low back pain 27 7952086 M54.5 with left sided stiffness; sciatica continues Chronic pain 92283840 G8 9.29 recurring pain and tenderness secondary to oa, fibromyalg ia with being off pain meds she is crying and worsening I discussed with her and she did go to the pain management and they told her they couldn't help her she reports she is feeling like a drug addict, but she reports she is off her Pain of le ft hip joint 5834322815 09672 M25.552 chronic and recurring degenerati ve changes she reports left hip pain recurring with muscle pain and tenderness will provide with an IM injection of 120 mg depo medrol today due to sciatica [id number] NANCY BARKER APRN [facility] [place] [address] [place] [address] 10/12/2018 11:03:28 10/19/2018 15:43:40 Fibromyalgia 308225192 M79.7 refills todaylabs are goodsympto matic complaints will continue savella and increase the amitriptyl ine Osteoarthritis 161136764 M19.90 chronic recurring degenerati ve joint changes will continue with nabumetone Neuropathy 684773538 G62 .9 chronic and recurring neuropathi c burning and tingling into bilateral upper and lower extremitie s exacerbate d by fibromyalg iastopped the neurontin on her owncontinu e her on amitriptyl inefailed lyrica and gabapentin Chronic low back pain 27 7799231 M54.5 with left sided stiffness; sciatica continues Chronic pain 14814712 G8 9.29 recurring pain and tenderness secondary to oa, fibromyalg ia with being off pain meds she is crying and worsening I discussed with her and she did go to the pain management and they told her they couldn't help her she reports she is feeling like a drug addict, but she reports she is off her Pain of le ft hip joint 2513971050 72436 M25.552 chronic and recurring degenerati ve changes she reports left hip pain recurring with muscle pain and tenderness will provide with an IM injection of 120 mg depo medrol today due to sciatica 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 Photograph [...] (MEDICARE REPLACEMENT/ ADVANTAGE - PPO) [place] [id number] [place] Notes Date Note Type Note [...] all others are negative [place], [address], [facility] 07/17/2017 14:05:13 10/16/2017 text/html ROS as [...] all others are negative AMY ORTEGAAna [place], [address], [facility] 10/22/2017 20:40:54 01/13/2018 text/html ROS as [...] all others are negative [place]Y [place], [address], [facility] 01/13/2018 12:03:16 04/14/2018 text/html ROS as noted in the HPI left hip pain with sciatica is improved; she has just returned from [place] and had very little issues while there, but returning to our cold, wet weather has caused grief; she reports she is without interval infection; no s/e from medications; she currently denies bowel or bladder changes, chest pain, shortness of air, rashes, fevers and all others are negative NANCY BARKER APRN [address] [place], [address], [facility] 04/14/2018 11:48:30 10/12/2018 text/html ROS as [...] are negative NANCY BARKER APRN [address] [place], [address], [facility] 10/17/2018 17:27:40 OBGyn Episode No OBEpisode recorded.
--- OUTSIDE RECORDS SUMMARY | 2024-12-19 12:41 | XMS_ITS | Patient Health Record ---
Author Organization [facility] Address [address] [place] [address] Care Team Providers Care Director Of Radio Services Name Role Phone Yonny Scott Primary Care Provider [phone] Reanna Perdomo Unavailable [phone] Migration, Provider Unavailable Unavailable Allergies Allergen (clinical drug ingredient) Drug/Non Drug Allergy documented on EMR Reaction Allergy Type Onset Date Status Penicillin Unknown Drug Allergy Active Results Component Value Reference Range Notes VITAMIN D,25-OH,TOTAL,IA (17 306) Reviewed date:09/26/2024 03:13:22 PM Interpretation: Performing Lab:[place] [facility] [address] [facility] Micheal Hilton Notes/Report: NON-FASTING; NON-FASTING; NON-FASTING; NON-FASTING; [...] D, (D2,D3), LC/MS/MS is recommended: order code 19295 (patients >2yrs). See Note 1 Note 1 For additional information, please refer to http://education.Cheyipai/faq/VEZ782 (This link is being provided for informational/ educational purposes only.) FERRITIN (457) Reviewed date:09/26/2024 03:13:22 PM Interpretation: Performing Lab:[place] [facility] [address], [place] Micheal Hilton Notes/Report: NON-FASTING; NON-FASTING; NON-FASTING; NON-FASTING; NON-FAST FERRITIN 41 16-288 ng/mL VITAMIN B12/FOLATE, SERUM PA ADA (7018) Reviewed date:09/26/2024 03:13:21 PM Interpretation: Performing Lab:[place] [facility] [address], [place] Micheal Hilton Notes/Report: NON-FASTING; NON-FASTING; NON-FASTING; NON-FASTING; NON-FAST VITAMIN B12 370 451-5179 pg/mL FOLATE, SERUM 4.4 Reference Range Low: <3.4 Borderline: 3.4-5.4 Normal: >5.4 CBC (INCLUDES DIFF/PLT) (639 9) Reviewed date:09/26/2024 03:13:21 PM Interpretation: Performing Lab:[place] [facility] [address], [place] Micheal Hilton Notes/Report: NON-FASTING; NON-FASTING; NON-FASTING; NON-FASTING; [...] MPV 10.1 7.5-12.5 fL ABSOLUTE NEUTROPHILS 5032 3785-7623 cells/uL ABSOLUTE LYMPHOCYTES 2559 850-3900 cells/uL ABSOLUTE MONOCYTES 621 200-950 cells/uL ABSOLUTE EOSINOPHILS 230 15-500 cells/uL ABSOLUTE BASOPHILS 60 0-200 cells/uL NEUTROPHILS 59.2 LYMPHOCYTES 30.1 MONOCYTES 7.3 EOSINOPHILS 2.7 BASOPHILS 0.7 COMPREHENSIVE METABOLIC PANE L (47085) Reviewed date:09/26/2024 03:13:21 PM Interpretation: Performing Lab:[place] [facility] [id number] [facility] Micheal Hilton Notes/Report: NON-FASTING; NON-FASTING; NON-FASTING; NON-FASTING; [...] 14 10-35 U/L ALT 14 6-29 U/L THYROID PANEL WITH TSH (7444 ) Reviewed date:09/26/2024 03:13:21 PM Interpretation: Performing Lab:[place] [facility] [id number] [facility] Micheal Hilton Notes/Report: NON-FASTING; NON-FASTING; NON-FASTING; NON-FASTING; NON-FAST T3 UPTAKE 28 22-35 % T4 (THYROXINE), TOTAL 6.1 5.1-11.9 mcg/dL FREE T4 INDEX (T7) 1.7 1.4-3.8 TSH 19.85 0.40-4.50 mIU/L EEG Reviewed date:09/26/2024 03:13:22 PM Interpretation: Performing Lab: Notes/Report: Reason For Referral Reason Home Health- PT, OT and Nursing Diagnosis 1 Multilevel degenerat miguel disc disease (M53.9) Diagnosis 2 Idiopathic periphera l neuropathy (G60.9) Diagnosis 3 Occipital stroke (I6 3.9) Diagnosis 4 Malignant hypertensi on (I10) Diagnosis 5 Ataxia (R27.0) Referral Organization [facility] Referring Provider First Name Yonny Referring Provider Last Name Tyler Referring Provider Speciality Internal M edicine Referred Provider Specialty Home Health General Notes sent to caretenders, amedysis and VNA Referral Priority Routine Reason EEG and MRI brain w/ o - ataxia Referral Organization [facility] Referring Provider First Name Yonny Referring Provider Last Name Tyler Referring Provider Speciality Internal edicine Referred Organization [facility] Referred Address [address] [place] [address], [place], [place],[address], Referred Provider Specialty Diagnostic R adiology General Notes Gisele Young 2024 02:33:23 PM >sent to [facility] and [facility] Referral Priority Routine Medications Medication SIG [...] W/U Status Risk Notes Problem Anxiety disorder (518661568) Anxiety disorder, unspecified (F41.9) Active confirmed Problem Primary insomnia (5310329) Primary insomnia (F51.01) Active confirmed Problem Mucopurulent chronic bronchitis (56934837) Mucopurulent chronic bronchitis (J41.1) Active confirmed Problem Panlobular emphysema (4228901) Panlobular emphysema (J43.1) Active confirmed Problem Fibromyalgia (217071274) Fibromyalgia (M79.7) Active confirmed Problem Mixed incontinence (052186450) Mixed incontinence (N39.46) Active confirmed Problem Headache (25343020) Headache (R51) Active confirmed Problem Peripheral vascular disease (369239545) PVD (peripheral vascular disease) (I73.9) Active confirmed Problem Mixed anxiety and depressive disorder (359665079) Depression with anxiety (F41.8) Active confirmed Problem Paresthesia (87036391) Paresthesia (R20.2) Active confirmed Problem Tobacco use (549757121) Tobacco use disorder (Z72.0) Active confirmed Problem Hyperlipidaemia (34246323) Hyperlipidemia LDL goal <100 (E78.5) Active confirmed Problem Insomnia (513397867) Insomnia (G47.00) Active confirmed Problem Essential hypertension (44182177) Essential hypertension (I10) Active confirmed Problem Acute exacerbation of chronic obstructive airways disease (339199793) COPD exacerbation (J44.1) Active confirmed Problem Idiopathic peripheral neuropathy (77291921) Idiopathic peripheral neuropathy (G60.9) Active confirmed Problem Restless legs (17560422) RLS (restless legs syndrome) (G25.81) Active confirmed Problem Malaise (817715222) Malaise (R53.81) Active confirmed Problem Chronic pain (77049870) Other chronic pain (G89.29) Active confirmed Problem Liver enzymes abnormal (593607887) Abnormal liver enzymes (R74.8) Active confirmed Problem Acquired hypothyroidism (229514295) Acquired hypothyroidism (E03.9) Active confirmed Problem Recurrent falls (293108626) Frequent falls (R29.6) Active confirmed Problem New daily persistent headache (872152676761364) New daily persistent headache (G44.52) Active confirmed Problem Chronic insomnia (571298251) Chronic insomnia (F51.04) Active confirmed Problem Arthropathy (518867965) Arthropathy, multiple sites (M12.9) Active confirmed Problem Ataxia (13148307) Ataxia (R27.0) Active confirm ed Problem Mood disorder (68320751) Mood disorder (F39) Active confirmed Problem Delusional disorder (33135221) Delusional disorder (F22) Active confirmed Problem Degeneration of intervertebral disc (41180845) Multilevel degenerative disc disease (M53.9) Active confirmed Problem Fibromyalgia (667792052) Diffuse myofascial pain syndrome (M79.7) Active confirmed Problem Overactive urinary bladder (disorder) (765559085) OAB (overactive bladder) (N32.81) Active confirmed Problem Sequelae of cerebral infarction (001491270) CVA, old, disturbances of vision (I69.398) Active confirmed Problem Insomnia (034206089) Insomnia, unspecified type (G47.00) Active confirmed Problem Osteoarthritis (074761455) Osteoarthritis, unspecified osteoarthritis type, unspecified site (M19.90) Active confirmed Problem Localized, primary osteoarthritis of the pelvic region and thigh (052711074) Primary osteoarthritis of right hip (M16.11) Active confirmed Problem Hemiplegia of dominant side as late effect of cerebrovascular disease (009195415) Hemiparesis affecting right side as late effect of cerebrovascular accident (I69.351) Active confirmed Problem History of cerebrovascular accident without residual deficits (658786214) History of CVA (cerebrovascular accident) (Z86.73) Active confirmed Problem Transient altered mental status (087126451) Altered level of consciousness (R40.4) Active confirmed Problem Hypertensive emergency (903835324832036) Hypertensive emergency (I16.1) Active confirmed Problem Residual 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 accident (679539046) Other symptoms and signs involving cognitive functions following cerebral infarction (I69.318) Active confirmed Problem Late effects of cerebrovascular disease (694355481) History of CVA with residual deficit (I69.30) Active confirmed Problem Renal artery stenosis (174777221) Renal artery stenosis (I70.1) Active confirmed Problem Inflammatory and toxic neuropathy (051461720) Peripheral polyneuropathy (G62.9) Active confirmed Problem Functional visual loss (054048810) Vision loss (H54.7) Active confirmed Problem Moderate major depression, single episode (82821599) Current moderate episode of major depressive disorder, unspecified whether recurrent (F32.1) Active confirmed Problem Cerebral infarction (620504475) Occipital stroke (I63.9) Active confirmed Problem Ataxia due to and following cerebrovascular accident (disorder) (597775958332396) Ataxia due to and not concurrent with cerebrovascular accident (CVA) (I69.393) Active confirmed Problem Dysphagia as a late effect of cerebrovascular accident (disorder) (022854827) CVA, old, dysphagia (I69.391) Active confirmed Problem Aphasia as late effect of cerebrovascular accident (027670509) 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) Active confirmed Vital Signs Heart Rate 91 /min 11/29/2024 Temperature 98.3 degrees Fahrenheit 11/29/2024 Blood pressure diastolic 72 mm Hg 11/29/2024 Height 63.5 in 11/29/2024 Blood pressure systolic 113 mm Hg 11/29/2024 Weight 128.8 lbs 11/29/2024 BMI 22.46 kg/m2 11/29/2024 Encounters Encounter Location Date Provider Diagnosis [facility] [address] [place] [address] 05/28/2024 Provider Migration Essential hypertension I10 ; Diffuse myofascial pain syndrome M79.7 and Mood disorder F39 [facility] [address] [place] [address] 05/31/2024 Reanna Perdomo Chronic insomnia F51 .04 ; Essential hypertension I10 and History of CVA (cerebrovascular accident) Z86.73 [facility] [address] [place] [address] 06/27/2024 Yonny Scott Malignant hypertensi on I10 ; Occipital stroke I63.9 ; Acquired hypothyroidism E03.9 and Hospital discharge follow-up Z09 [facility] [address] [place] [address] 07/11/2024 Yonny Scott Pain in right hip M25.551 ; Pain in left hip M25.552 ; Multilevel degenerative disc disease M53.9 ; History of CVA (cerebrovascular accident) Z86.73 ; Current moderate episode of major depressive disorder, unspecified whether recurrent F32.1 ; Vision loss H54.7 ; Essential hypertension I10 and Routine medical exam Z00.00 [facility] [address] [address] 07/19/2024 Yonny Scott History of CVA (cerebrovascular accident) Z86.73 ; Mood disorder F39 ; Vision loss H54.7 and Essential hypertension I10 [facility] [address] [place] [address] 2024 Yonny Scott History of CVA (cerebrovascular accident) Z86.73 ; Panlobular emphysema J43.1 ; Primary insomnia F51.01 and Hospital discharge follow-up Z09 [facility] [address] [place] [address] 08/22/2024 Yonny Scott History of CVA (cerebrovascular accident) Z86.73 and Insomnia G47.00 [facility] [address] [place] [address] 09/21/2024 Yonny Scott Idiopathic periphera l neuropathy G60.9 ; Paresthesia R20.2 ; Mood disorder F39 and Insomnia, unspecified type G47.00 [facility] [address] [address] 10/05/2024 Yonny Scott History of CVA (cerebrovascular accident) Z86.73 ; Essential hypertension I10 ; Hemiparesis affecting right side as late effect of cerebrovascular accident I69.351 and Mood disorder F39 [facility] [address] [address] 10/18/2024 Yonny Scott Essential hypertensi on I10 ; Acquired hypothyroidism E03.9 and Hemiparesis affecting right side as late effect of cerebrovascular accident I69.[address] [address] 11/15/2024 Reanna Perdomo Multiple closed fractures of [...] pain G89.29 and Hospital discharge follow-up Z09 [address] [address] 11/29/2024 Reanna Perdomo Multiple closed fractures of [...] disease) I73.9 and Other chronic pain G89.29 [facility] [address] [address] 07/13/2024 Yonny Scott [facility] [address] [place] [address] 07/13/2024 Yonny Besson [facility] [address] [place] [address] 07/13/2024 Yonny Besson Ataxia R27.0 [facility] [address] [place] [address] 07/13/2024 Yonny Besson [facility] [address] [place] [address] 07/14/2024 Yonny Besson [facility] [place] [address] [place] [address] 07/15/2024 Reanna Monsivaisence [facility] [address] [place] [address] 07/19/2024 Yonny Besson [facility] [address] [place] [address] 07/19/2024 Yonny Besson [facility] [address] [place] [address] 08/01/2024 Yonny Besson [facility] [address] [place] [address] 08/04/2024 Yonny Besson [facility] [address] [place] [address] 08/09/2024 Yonny Besson [facility] [address] [place] [address] 08/31/2024 Yonny Besson Insomnia G47.00 ; Essential hypertension I10 ; Malignant hypertension I10 and Primary insomnia F51.01 [facility] [address] [place] [address] 09/02/2024 Yonny Besson [facility] [address] [place] [address] 09/14/2024 Yonny Besson [facility] [address] [place] [address] 09/26/2024 Yonny Besson [facility] [address] [place] [address] 11/07/2024 Yonny Scott Assessments Encounter Date Diagnosis (ICD Code) Assessment Notes Treatment Notes Treatment Clinical Notes Section Notes 11/15/2024 Other specified postprocedural states (ICD-10 - Z98.890) 11/15/2024 Multiple closed fractures of facial bone, sequela (ICD-10 - S02.92XS) Hospital documentation reviewed. Antibiotics and sinus precautions completed. Has resumed AC for stroke prevention and PVD management. FU with ENT recommended Will stop megace 11/29/2024 Other specified postprocedural states (ICD-10 - Z98.890) 11/29/2024 Multiple closed fractures of facial bone, sequela (ICD-10 - S02.92XS) Plan is to discharge home with sister at the end of the week. Recommend continue PT/OT. Hospital bed for assistance with mobility, edema, prevention of aspiration. Antibiotics and sinus precautions completed. Continue AC for stroke prevention and PVD management. FU with ENT recommended 10/05/2024 Essential hypertension (ICD-10 - I10) Blood pressure stable and well-controlled 10/05/2024 History of CVA (cerebrovascular accident) (ICD-10 - Z86.73) Blood pressure under good control, remains on antiplatelet agent. No evidence of recurrence of stroke disease 05/28/2024 Essential hypertension (ICD-10 - I10) 05/31/2024 Essential hypertension (ICD-10 - I10) she has no interest in management at this point but we did review importance 05/31/2024 Chronic insomnia (ICD-10 - F51.04) chart reviewed and has been on temazepam, valium, elavil, seroquel, duloxetine, abilify, trazodone. rec trial of mirtazepine, may need higher dose. FU in 3-4 weeks 06/27/2024 Malignant hypertension (ICD-10 - I10) Blood [...] will be set up. I performed a [id number] evaluation on this patient today, and determined that this patient cannot leave home without significant difficulty based on pain, immobility and ataxia issues. They qualify for home health evaluation for PT/OT evaluation as well as nursing care, home safety and follow-up medical care. 07/11/2024 Pain in right hip (ICD-10 - M25.551) Check x-rays. Will see if PT coming to her house can help with exercises for back pain and hip pain. Will discuss x-ray results at next visit. 07/11/2024 Pain in left hip (ICD-10 - M25.552) 07/13/2024 Ataxia (ICD-10 - R27.0) 07/19/2024 History of CVA (cerebrovascular accident) (ICD-10 [...] window but does need eval for rehab. 2024 Panlobular emphysema (ICD-10 - J43.1) Start [...] Does have neurology appointment on the with [facility] neurology 08/22/2024 Insomnia (ICD-10 - G47.00) On mirtazapine. [...] good, supportive family, home health in place 09/21/2024 Paresthesia (ICD-10 - R20.2) We will check her B12, ferritin, folate, magnesium, CBC, Vitamin D, CMP and thyroid panel levels today in lab. 09/21/2024 Idiopathic peripheral neuropathy (ICD-10 - G60.9) We will check her B12, ferritin, folate, magnesium, CBC, CMP, Vitamin D and thyroid panel levels today in lab. 10/18/2024 Essential hypertension (ICD-10 - I10) Pt [...] contributing to elevated blood pressure over baseline 08/31/2024 Insomnia (ICD-10 - G47.00) 08/31/2024 Essential hypertension (ICD-10 - I10) 10/18/2024 Hemiparesis affecting right side as late effect of cerebrovascular accident (ICD-10 - I69.351) Overall doing well, using walker. No falls. Continue home observation from family members 11/15/2024 Personal history of (healed) traumatic fracture (ICD-10 - Z87.81) 09/21/2024 Mood disorder (ICD-10 - F39) We [...] initiating fluoxetine is reasonable with close observation 07/19/2024 Mood disorder (ICD-10 - F39) 2024 Primary insomnia (ICD-10 - F51.01) Restart mirtazapine. 05/28/2024 Diffuse myofascial pain syndrome (ICD-10 - M79.7) 07/11/2024 Multilevel degenerative disc disease (ICD-10 - M53.9) 05/31/2024 History of CVA (cerebrovascular accident) (ICD-10 - Z86.73) 06/27/2024 Acquired hypothyroidism (ICD-10 - E03.9) Back on levothyroxine. Will check TSH at appropriate time interval 10/05/2024 Hemiparesis affecting right side as late effect of cerebrovascular accident (ICD-10 - I69.351) Continuing to do home PT, using walker, no falls 11/29/2024 Personal history of (healed) traumatic fracture (ICD-10 - Z87.81) 11/15/2024 Physical debility (ICD-10 - R53.81) PT, OT, ST to eval and treat as indicated. Was quite debilitated prior to this fall with fracture, rehab potential is guarded 10/05/2024 Mood disorder (ICD-10 - F39) Fluoxetine seems to have helped augment her Seroquel. No changes in plan at this point. Follow-up 6 weeks 11/29/2024 Physical debility (ICD-10 - R53.81) therapies as indicated 06/27/2024 Hospital discharge follow-up (ICD-10 - Z09) Personally reviewed H&P and discharge summary as available from hospital discharge documentation. Reviewed pertinent labs and test done in the hospital. Personally reconciled medication. 05/28/2024 Mood disorder (ICD-10 - F39) 07/11/2024 History of CVA (cerebrovascular accident) (ICD-10 - Z86.73) Blood pressure not at goal. Add amlodipine as noted below 07/19/2024 Vision loss (ICD-10 - H54.7) 2024 Hospital discharge follow-up (ICD-10 - Z09) Personally reviewed H&P and discharge summary as available from hospital discharge documentation. Reviewed pertinent labs and test done in the hospital. Personally reconciled medication. 09/21/2024 Insomnia, unspecified type (ICD-10 - G47.00) We will keep her on 100 mg of seroquel every night to help with her insomnia and night terrors she experiences. Sleep has been a long-term issue for her. Family reports that they are waiting to hear from [facility] about a sleep medicine referral 08/31/2024 Malignant hypertension (ICD-10 - I10) 08/31/2024 Primary insomnia (ICD-10 - F51.01) 07/19/2024 Essential hypertension (ICD-10 - I10) -BP poorly controlled on 20mg lisinopril and 5mg amlodipine -Does need evaluation inpatient as noted in ED 07/11/2024 Current moderate episode of major depressive disorder, unspecified whether recurrent (ICD-10 - F32.1) Add mirtazapine for sleep and depression issues. 11/29/2024 History of CVA with residual deficit (ICD-10 - I69.30) continue statin, DAPT 11/15/2024 History of CVA with residual deficit (ICD-10 - I69.30) continue statin, DAPT 11/29/2024 Mood disorder (ICD-10 - F39) continue seroquel, mirtazepine 07/11/2024 Vision loss (ICD-10 - H54.7) Refer to [facility] for evaluation 11/15/2024 Mood disorder (ICD-10 - F39) continue seroquel, mirtazepine 11/15/2024 Frequent falls (ICD-10 - R29.6) PT/OT following 07/11/2024 Essential hypertension (ICD-10 - I10) 11/29/2024 Frequent falls (ICD-10 - R29.6) PT/OT [...] statin, aspirin and refrain from smoking 11/29/2024 PVD (peripheral vascular disease) (ICD-10 - I73.9) continue statin, aspirin and refrain from smoking 11/29/2024 Other chronic pain (ICD-10 - G89.29) no pain complaints today, monitor, continue baclofen post-stroke 11/15/2024 Other chronic pain (ICD-10 - G89.29) [...] 05/03/2015 H-TSH 05/03/2015 H-MISCELLANEOUS TEST 07/02/2015 C-CBC 05/26/2019 C-CBC 06/19/2016 C-CBC 01/10/2019 C-CBC 08/23/2018 C-CBC 06/29/2015 C-Sed Rate (ESR) 08/23/2018 C-BASIC METABOLIC 06/19/2016 C-CMP 05/26/2019 C-CMP 04/24/2020 C-CMP 04/11/2016 C-CMP 06/29/2015 C-CMP 08/23/2018 C-CMP 01/10/2019 C-CMP 11/25/2017 C-LIPID PANEL 11/25/2017 C-LIPID PANEL 01/10/2019 C-LIPID PANEL 08/23/2018 C-LIPID PANEL 04/24/2020 C-LIPID PANEL 05/26/2019 C-MAGNESIUM 11/25/2017 C-TSH 08/23/2018 C-TSH 01/10/2019 C-TSH 06/29/2015 C-TSH 04/11/2016 C-TSH 05/26/2019 C-HEPATITIS PANEL 06/08/2017 C-VITAMIN B12 06/29/2015 C-HGBA1C 04/26/2020 C-PTT 06/19/2016 C-PT/INR 06/19/2016 C-URINALYSIS 06/19/2016 C-URINALYSIS 06/29/2015 C-VITAMIN D, 25-HYDROXY 01/10/2019 C-VITAMIN D, 25-HYDROXY 08/23/2018 C-VITAMIN D, 25-HYDROXY 05/26/2019 C-DRUG SCREEN 12 PANEL 06/29/2015 C-DRUG SCREEN 12 PANEL 01/11/2018 C-DRUG SCREEN 12 PANEL 11/25/2017 12 PANEL DRUG SCREEN, URINE 06/11/2017 M-Complete [...] End Date [employer] [address] [address] [place] [address] [id number] [place] Mata Self - patient is the [...] hip replacement 07/28/2016 Hospitalization History Reason Date(Month/Year) [facility] - fall with facial trauma 10/2024 Stroke 07/19/2024 [facility] 05/2024 [facility]- stroke 11/2022 rt hip replacement 07/28/2016 shut down kidneys broken pelvic bone child x 2 times pneumonia x 8-10 times
--- OUTSIDE RECORDS SUMMARY | 2024-12-19 12:41 | XMS_ITS | Encounter Summary ---
Author Organization [facility] Address [address] 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 Son calling to check status of her being scheduled this week from referral placed 11/25 Best contact number: [phone] Optimal time of day to reach caller: ANYTIME Additional comments/information from caller: Note: Please do not reply to this message. Follow-up communication and further actions as a result of this message need to be communicated with the patient directly, if the patient is not active onMyChart. If the patient is active on MyChart, they will receive notification of the communication/outcome via Verslyhart. documented in this encounter Plan of Treatment Upcoming Encounters Date Type Department Care Team (Latest Contact Info) Description 12/20/2024 2:00 PM EDT Pre-Admission Testing [facility] [address], [address] [place] [address] 12/27/2024 7:30 AM EST Appointment [facility] Interventional Radiology [address] [place] [address] 12/30/2024 1:00 PM EST Office Visit [facility] Otolaryngology [address], 3rd [place] [address] Yobani Benoit MD [address] [place] [address] 02/02/2025 9:00 AM EST Appointment [facility] Radiology [address] [place] [address] 05/24/2025 2:30 PM EDT Office Visit [facility] [address] [place] [address] Navya Woody MD [address] [facility] [address] [place] [address] 06/07/2025 2:00 PM EDT Consult [place] [facility] [address], 1[address] [place] [address] Haseeb Dias MD [address] [facility] [address] [place] [address] documented as of this encounter [...] documented as of this encounter Care Teams Mill Tender Relationship Specialty Start Date End Date Aman Hernandez MD [address] [place] [address] PCP - General Family Medicine 06/18/21 documented as of this encounter
--- OUTSIDE RECORDS SUMMARY | 2024-12-19 12:41 | XMS_ITS | Encounter Summary ---
Author Organization Healthcare Address [address] [place] [address] Care Team Providers Care Hand Bunch Maker Name Role Phone Aman Hernandez MD Primary Care Provider Encounter Details Date Type Department Care Team (Late st Contact Info) Description 11/30/2024 Telephone [facility] [address] [place] [address] Monique Barnhart [address] [place] [address] Social History Tobacco Use Types Packs/Day [...] any time in the past 12 m [facility], were you homeless or living in a custodial (including now)? Patient unable to answer 10/31/2024 [facility] Utilities Answer Date Recorded In [...] Description 12/20/2024 2:00 PM EDT Pre-Admission Testing [facility] [address], 1st [place] [address] 12/27/2024 7:30 AM EST Appointment [facility] Interventional Radiology [address] [place] [address] 12/30/2024 1:00 PM EST Office Visit [facility] Otolaryngology [address], 3rd [place] [address] Yobani Benoit MD [address] [facility] [address] [place] [address] 02/02/2025 9:00 AM EST Appointment [facility] Radiology [address] [place] [address] 05/24/2025 2:30 PM EDT Office Visit [facility] [address] [place] [address] Navya Woody MD [address] [facility] [address] [place] [address] 06/07/2025 2:00 PM EDT Consult [facility] [address], 1st [place] [address] Haseeb Dias MD [address] [place] [address] documented as of this encounter [...] documented as of this encounter Care Teams Hand Bunch Maker Relationship Specialty Start Date End Date Aman Hernandez MD [address] [place] [address] PCP - General Family Medicine 06/18/21 documented as of this encounter
--- OUTSIDE RECORDS SUMMARY | 2024-12-19 12:41 | XMS_ITS | Encounter Summary ---
Author Organization Healthcare Address [address] [place] [address] Care Team Providers Care Screening Specialist Name Role Phone Aman Hernandez MD Primary Care Provider Reason for Visit * Reason Onset Date Comments HCN Clinical Concern/Question 11/30/2024 Encounter Details Date Type Department Care Team (Late st Contact Info) Description 11/30/2024 Telephone [facility] Ot[facility] [address], 3rd [place] [address] Yobani Benoit MD [address] [place] [address] HCN Clinical Concern/Question Social History [...] now)? Patient unable to answer 10/31/2024 [facility] Utilities Answer Date Recorded In [...] status of the appts. Best contact number: [phone] Optimal time of day to reach caller: Additional comments/information from caller: Note: Please do not reply to this message. Follow-up communication and further actions as a result of this message need to be communicated with the patient directly, if the patient is not active onMyChart. If the patient is active on MyChart, they will receive notification of the communication/outcome via [employer] Mediahart. documented in this encounter Plan of Treatment Upcoming Encounters Date Type Department Care Team (Latest Contact Info) Description 12/20/2024 2:00 PM EDT Pre-Admission Testing [facility] Clinic [address], 1st [place] [address] 12/27/2024 7:30 AM EST Appointment [facility] Interventional Radiology [address] [place] [address] 12/30/2024 1:00 PM EST Office Visit [facility] [address], 3rd [place] [address] Yobani Benoit MD [address] [place] [address] 02/02/2025 9:00 AM EST Appointment [facility]iology [address] [place] [address] 05/24/2025 2:30 PM EDT Office Visit [facility] [address] [facility] [place] [address] Navya Woody MD [address] [place] [address] 06/07/2025 2:00 PM EDT Consult [facility] [address], 1st [place] [address] Haseeb Dias MD [address] [facility] [address] [place] [address] documented as of this [...] documented as of this encounter Care Teams Screening Specialist Relationship Specialty Start Date End Date Aman Hernandez MD [address] [facility] [address] [place] [address] PCP - General Family Medicine 06/18/21 documented as of this encounter
--- OUTSIDE RECORDS SUMMARY | 2024-12-19 12:42 | XMS_ITS | Encounter Summary ---
Author Organization Healthcare Address [address] [place] [address] Care Team Providers Care Structural Steel Worker Helper Name Role Phone Aman Hernandez MD [...] (including now)? Patient unable to answer 10/31/2024 [facility] Utilities Answer Date Recorded In the [...] Description 12/20/2024 2:00 PM EDT Pre-Admission Testing [facility] Pre-op Clinic [address], 1st [place] [address] 12/27/2024 7:30 AM EST Appointment [facility] Interventional Radiology [address] [place] [address] 12/30/2024 1:00 PM EST Office Visit [facility] Otolaryngology [address], 3rd [place] [address] Yobani Benoit MD [address] [facility] [address] [place] [address] 02/02/2025 9:00 AM EST Appointment [facility] Radiology [address] [place] [address] 05/24/2025 2:30 PM EDT Office Visit [facility] [address] [place] [address] Navya Woody MD [address] [facility] [address] [place] [address] 06/07/2025 2:00 PM EDT Consult [facility] [address], 1st [place] [address] Haseeb Dias MD [address] [place] [address] documented as of this [...] documented as of this encounter Care Teams Structural Steel Worker Helper Relationship Specialty Start Date End Date Aman Hernandez MD [address] [place] [address] PCP - General Family Medicine 06/18/21 documented as of this encounter
--- OUTSIDE RECORDS SUMMARY | 2024-12-19 12:42 | XMS_ITS | Encounter Summary ---
Author Organization Healthcare Address [address] [place] [address] Care Team Providers Care Assistant Athletic Trainer Name Role Phone Aman Hernandez MD Primary [...] any time in the past 12 m [facility], were you homeless or living in a fpc (including now)? Patient unable to answer 10/31/2024 [facility] Utilities Answer Date Recorded In the [...] Description 12/20/2024 2:00 PM EDT Pre-Admission Testing [facility] Pre-op Clinic [address], 1st [place] [address] 12/27/2024 7:30 AM EST Appointment [facility] Interventional Radiology [address] [place] [address] 12/30/2024 1:00 PM EST Office Visit [facility] Otolaryngology [address], 3rd [place] [address] Yobani Benoit MD [address] [facility] [address] [place] [address] 02/02/2025 9:00 AM EST Appointment [facility] Radiology [address] [place] [address] 05/24/2025 2:30 PM EDT Office Visit [facility] [address] [place] [address] Navya Woody MD [address] [place] [address] 06/07/2025 2:00 PM EDT Consult [facility] [address], 1st [place] [address] Haseeb Dias MD [address] [place] [address] documented as of this encounter Visit Diagnoses [...] documented as of this encounter Care Teams Assistant Athletic Trainer Relationship Specialty Start Date End Date Aman Hernandez MD [address] [facility] [address] [place] [address] PCP - General Family Medicine 06/18/21 documented as of this encounter
--- OUTSIDE RECORDS SUMMARY | 2024-12-19 12:42 | XMS_ITS | Encounter Summary ---
Author Organization [facility] Address [address] [place] [address] Care Team Providers Care Hydrological Technical Officer Name Role Phone Aman Hernandez MD Primary Care Provider Encounter Details Date Type Department Care Team (Latest Contact Info) Description 12/15/2024 Travel Social History Tobacco Use Types Packs/Day [...] the past 12 m [facility], were you homeless or living in a assisted (including now)? Patient unable to answer 10/31/2024 [facility] Utilities Answer Date Recorded [...] Description 12/20/2024 2:00 PM EDT Pre-Admission Testing [facility] [address], 1st [place] [address] 12/27/2024 7:30 AM EST Appointment [facility] Interventional Radiology [address] [place] [address] 12/30/2024 1:00 PM EST Office Visit [facility] Otolaryngology [address], 3rd [place] [address] Yobani Benoit MD [address] [facility] [address] [place] [address] 02/02/2025 9:00 AM EST Appointment [facility] Radiology [address] [place] [address] 05/24/2025 2:30 PM EDT Office Visit [facility] [address] [place] [address] Navya Woody MD [address] [facility] [address] [place] [address] 06/07/2025 2:00 PM EDT Consult [facility] [address], 1st [place] [address] Haseeb Dias MD [address] [facility] [address] [place] [address] documented as of this encounter Goals Goal Patient Goal Type Associated Problems Recent Progress Patient-Stated? Author Autogenerat ed Goal Care Plan Autogenerated Problem Alexandra Hager documented as of this encounter Visit Diagnoses Not on filedocumented in this encounter Additional Health Concerns Active [...] documented as of this encounter Care Teams Hydrological Technical Officer Relationship Specialty Start Date End Date Aman Hernandez MD [address] [address] PCP - General Family Medicine 06/18/21 documented as of this encounter
--- OUTSIDE RECORDS SUMMARY | 2024-12-19 12:42 | XMS_ITS | Encounter Summary ---
Author Organization Healthcare Address [address] [place] [address] Care Team Providers Care Grip Boss Name Role Phone Aman Hernandez MD Primary Care Provider Encounter Details Date Type Department Care Team (Late st Contact Info) Description 11/01/2024 Ophth Exam [facility] [address] [place] [address] Jovanni Lima MD [address] [place] [address] Social History Tobacco Use Types [...] time in the past 12 m [facility], were you homeless or living in [...] 2:00 PM EDT Pre-Admission Testing [facility] Pre-op Clinic [address], 1st [place] [address] 12/27/2024 7:30 AM EST Appointment [facility] Interventional Radiology [address] [place] [address] 12/30/2024 1:00 PM EST Office Visit [facility] Ot[facility] [address], 3rd [place] [address] Yobani Benoit MD [address] [place] [address] 02/02/2025 9:00 AM EST Appointment [facility] [address] [place] [address] 05/24/2025 2:30 PM EDT Office Visit [facility] Care [address] [place] [address] Navya Woody MD [address] [place] [address] 06/07/2025 2:00 PM EDT Consult [facility] [address], 1st [place] [address] Haseeb Dias MD [address] [facility] [address] [place] [address] documented as of this encounter [...] documented as of this encounter Care Teams Grip Boss Relationship Specialty Start Date End Date Aman Hernandez MD [address] [place] [address] PCP - General Family Medicine 06/18/21 documented as of this encounter
--- OUTSIDE RECORDS SUMMARY | 2024-12-19 12:42 | XMS_ITS | Clinical Summary ---
Author Organization [facility] [place] [address] Care Team Providers Care Materials Research Engineer Name Role Phone Unavailable Primary Care Provider [...] Density Screening 08/09/2023 COVID-19 Vaccine ( - 2024-2 6 season) 2024 Influenza Vaccine (#1) 2024 Hepatitis B Vaccine Aged Out No longe r eligible based on patient's age to complete this topic Meningococcal B Vaccine Aged Out No l onger eligible based on patient's age to complete this topic
--- OUTSIDE RECORDS SUMMARY | 2024-12-19 12:42 | XMS_ITS | Encounter Summary ---
Author Organization Healthcare Address [address] [place] [address] Care Team Providers Care Electronics Supervisor Name Role Phone Aman Hernandez MD Primary Care Provider Encounter Details Date Type Department Care Team (Late st Contact Info) Description 11/14/2024 Telephone [facility] [address], 3rd [place] [address] Vianey Mascorro Social History Tobacco [...] Patient unable to answer 10/31/2024 [facility] Utilities Answer Date Recorded In the [...] Description 12/20/2024 2:00 PM EDT Pre-Admission Testing [facility] Pre[facility] Clinic [address], 1st [place] [address] 12/27/2024 7:30 AM EST Appointment [facility] Interventional Radiology [address] [place] [address] 12/30/2024 1:00 PM EST Office Visit [facility] Otolaryngology [address], 3rd [place] [address] Yobani Benoit MD [address] [facility] [address] [place] [address] 02/02/2025 9:00 AM EST Appointment [facility] Rad[facility] [address] [place] [address] 05/24/2025 2:30 PM EDT Office Visit [facility] [address] [place] [address] Navya Woody MD [address] [facility] [address] [place] [address] 06/07/2025 2:00 PM EDT Consult [facility] [address], 1st [place] [address] Haseeb Dias MD [address] [facility] [address] [place] [address] documented as of this encounter Visit Diagnoses [...] as of this encounter Care Teams Electronics Supervisor Relationship Specialty Start Date End Date Aman Hernandez MD [address] [address] PCP - General Family Medicine 06/18/21 documented as of this encounter
--- OUTSIDE RECORDS SUMMARY | 2024-12-19 12:42 | XMS_ITS | Encounter Summary ---
Author Organization Healthcare Address [address] [place] [address] Care Team Providers Care Bottom Pounder Cement Shoes Name Role Phone Aman Hernandez MD Primary [...] any time in the past 12 m [facility], were you homeless or living in a custodial (including now)? Patient unable to answer 10/31/2024 [facility] Utilities Answer Date Recorded In [...] Description 12/20/2024 2:00 PM EDT Pre-Admission Testing [facility] Pre-op Clinic [address], 1st [place] [address] 12/27/2024 7:30 AM EST Appointment [facility] Interventional Radiology [address] [place] [address] 12/30/2024 1:00 PM EST Office Visit [facility] Otolaryngology [address], 3rd [place] [address] Yobani Benoit MD [address] [place] [address] 02/02/2025 9:00 AM EST Appointment [facility] [address] [place] [address] 05/24/2025 2:30 PM EDT Office Visit [facility] [address] [place] [address] Navya Woody MD [address] [place] [address] 06/07/2025 2:00 PM EDT Consult [facility] [address], 1st [place] [address] Haseeb Dias MD [address] [place] [address] documented as of this encounter Visit Diagnoses [...] documented as of this encounter Care Teams Bottom Pounder Cement Shoes Relationship Specialty Start Date End Date Aman Hernandez MD [address] [address] PCP - General Family Medicine 06/18/21 documented as of this encounter
--- OUTSIDE RECORDS SUMMARY | 2024-12-19 12:42 | XMS_ITS | Encounter Summary ---
Author Organization Healthcare Address [address] [place] [address] Care Team Providers Care Supply Crib Attendant Name Role Phone Aman Hernandez MD Primary Care Provider Reason for Referral * Imaging (Routine) - Closed Specialty Diagnoses / Procedures Referred By Zoe guevara Referred To Contact Radiology Diagnoses SDH (subdural hematoma) (CMS/HCC) Procedures CT Head wo IV Contrast Miranda Garcias PA [id number] [place] [address] Phone: tel: fax: Referral ID Status Reason Start Date Expiration Date Visits Re quested Visits Authorized [id number] Closed 11/17/2024 05/19/2026 1 1 Encounter Details Date Type Department Care Team (Late st Contact Info) Description 11/17/2024 Orders Only [place] [facility] [address], 1st [place] [address] Miranda Garcias PA [address] [facility] [address] [place] [address] SDH (subdural hematoma) (CMS/HCC) (Primary [...] were you homeless or living in a fdc (including now)? Patient unable to answer 10/31/2024 [facility] Utilities Answer Date Recorded In [...] Description 12/20/2024 2:00 PM EDT Pre-Admission Testing [facility] Pre-op Clinic [address], 1st [place] [address] 12/27/2024 7:30 AM EST Appointment [facility] Interventional Radiology [address] [place] [address] 12/30/2024 1:00 PM EST Office Visit [facility] [address], 3rd [place] [address] Yobani Benoit MD [address] [facility] [address] [place] [address] 02/02/2025 9:00 AM EST Appointment [facility] [address] [place] [address] 05/24/2025 2:30 PM EDT Office Visit [facility] [address] [place] [address] Navya Woody MD [address] [place] [address] 06/07/2025 2:00 PM EDT Consult [place] [facility] [address], [address] [place] [address] Haseeb Dias MD [address] [place] [address] documented as of this encounter Results * CT Head wo [...] error, please notify the sender immediately at [phone] and permanently delete the original report and destroy any copies or printouts. Narrative 12/14/2024 7:08 AM EDT [facility] - [facility] Outpatient NAME: Albania Mata DATE OF EXAM: 12/13/2024 Patient No: [id number] Physician: Geno Date of : 1960 Past [...] midline shift, herniation, or hydrocephalus. 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 Case finalized on 12/14/24 07:08 TIESHA Dubois M.D. This report has been electronically [...] in error, pleasenotify the sender immediately at [phone] and permanently delete theoriginal report and destroy any copies or printouts. us Miranda FORBES IMG CT PROCEDURES Final Resul t documented in this encounter Visit Diagnoses Diagnosis SDH (subdural hematoma) (CMS/HCC)- Primary Subdural hemorrhage SDH (subdural hematoma) (CMS/HCC) Subdural hemorrhage documented [...] as of this encounter Care Teams Supply Crib Attendant Relationship Specialty Start Date End Date Aman Hernandez MD [address] [place] [id number] PCP - General Family Medicine 06/18/21 documented as of this encounter
--- OUTSIDE RECORDS SUMMARY | 2024-12-19 12:42 | XMS_ITS | Encounter Summary ---
Author Organization Healthcare Address [address] [place] [address] Care Team Providers Care Mortgage Clerk Name Role Phone Aman Hernandez MD [...] any time in the past 12 m [facility], were you homeless or living in a [place] [facility] facility (including now)? Patient unable to answer 10/31/2024 [facility] Utilities Answer Date Recorded In the past [...] [facility] Clinic [address], 1st [place] [address] 12/27/2024 7:30 AM EST Appointment [facility] Inter[facility] Radiology [address] [place] [address] 12/30/2024 1:00 PM EST Office Visit [facility] Otolaryngology [address] [facility] [address] [facility] [place] [address] Yobani Benoit MD [address] [facility] [address] [place] [address] 02/02/2025 9:00 AM EST Appointment [facility] [address] [place] [address] 05/24/2025 2:30 PM EDT Office Visit [facility] Eye Care [address] [facility] [place] [address] Navya Woody MD [address] [facility] [address] [place] [address] 06/07/2025 2:00 PM EDT Consult [facility] [address], 1[address] [place] [address] Haseeb Dias MD [address] [place] [address] documented as of this encounter [...] documented as of this encounter Care Teams Mortgage Clerk Relationship Specialty Start Date End Date Aman Hernandez MD [address] [place] [address] PCP - General Family Medicine 06/18/21 documented as of this encounter
--- OUTSIDE RECORDS SUMMARY | 2024-12-19 12:42 | XMS_ITS | Encounter Summary ---
Author Organization Healthcare Address [address] [place] [address] Care Team Providers Care Senior Recruitment Consultant Name Role Phone Aman Hernandez MD [...] any time in the past 12 m [facility], were you homeless or living in a halfway (including now)? Patient unable to answer 10/31/2024 [facility] Utilities Answer Date Recorded In the [...] 1 Month) No 11/03/2024 8:00 PM EDT Karthik Manuelito 6. Suicidal Behavior (Lifetime) No 8:00 PM EDT KarthikManuelito documented as of this encounter Plan of Treatment Upcoming Encounters Date Type Department Care Team (Latest Contact Info) Description 12/20/2024 2:00 PM EDT Pre-Admission Testing [facility] [address], 1[address] [place] [address] 12/27/2024 7:30 AM EST Appointment [facility] Interventional Radiology [address] [place] [address] 12/30/2024 1:00 PM EST Office Visit [facility] Ot[facility]ology [address], 3rd [place] [address] Yobani Benoit MD [address] [place] [address] 02/02/2025 9:00 AM EST Appointment [facility] Radiology [address] [place] [address] 05/24/2025 2:30 PM EDT Office Visit [facility] [address] [place] [address] Navya Woody MD [address] [place] [address] 06/07/2025 2:00 PM EDT Consult [facility] [address], 1st [place] [address] Haseeb Dias MD [address] [place] [address] documented as of this encounter [...] as of this encounter Care Teams Senior Recruitment Consultant Relationship Specialty Start Date End Date Aman Hernandez MD [address] [place] [address] PCP - General Family Medicine 06/18/21 documented as of this encounter
--- OUTSIDE RECORDS SUMMARY | 2024-12-19 12:44 | XMS_ITS | Encounter Summary ---
Author Organization Healthcare Address [address] [place] [address] Care Team Providers Care Learning Consultant Name Role Phone Aman Hernandez MD Primary Care Provider Encounter Details Date Type Department Care Team (Late st Contact Info) Description 11/27/2022 Orders Only External Location [address] [place] [address] Provider, External Social History Tobacco Use Types [...] Description 12/20/2024 2:00 PM EDT [facility]mission Testing [facility] [address], 1[address] [place] [address] 12/27/2024 7:30 AM EST Appointment [facility] Interventional Radiology [address] [place] [address] 12/30/2024 1:00 PM EST Office Visit [facility] Otolaryngology [address], 3rd [place] [address] Yobani Benoit MD [address] [place] [address] 02/02/2025 9:00 AM EST Appointment [facility] Radiology [address] [place] [address] 05/24/2025 2:30 PM EDT Office Visit [facility] [address] [place] [address] Navya Woody MD [address] [facility] [address] [place] [address] 06/07/2025 2:00 PM EDT Consult [facility] [address], 1st [place] [address] Haseeb Dias MD [address] [facility] [address] [place] [address] documented as of this encounter Procedures Procedure [...] documented as of this encounter Care Teams Learning Consultant Relationship Specialty Start Date End Date Aman Hernandez MD [address] [address] PCP - General Family Medicine 06/18/21 documented as of this encounter
--- OUTSIDE RECORDS SUMMARY | 2024-12-19 12:44 | XMS_ITS | Encounter Summary ---
Author Organization Healthcare Address [address] [place] [address] Care Team Providers Care Community Service Manager Name Role Phone Aman Hernandez MD Primary Care Provider Encounter Details Date Type Department Care Team (Late st Contact Info) Description 11/26/2022 Orders Only External Location [address] [place] [address] Delfino Etienne, [place] 1210 [facility] 36 [place], [place] [id number] Social History Tobacco Use Types Packs/Day Years [...] Description 12/20/2024 2:00 PM EDT [facility]mission Testing [facility] [address], 1st [place] [address] 12/27/2024 7:30 AM EST Appointment [facility] Interventional Radiology [address] [place] [address] 12/30/2024 1:00 PM EST [facility] [address], 3rd [place] [address] Yobani Benoit MD [address] [place] [address] 02/02/2025 9:00 AM EST Appointment [facility] Radiology [address] [place] [address] 05/24/2025 2:30 PM EDT Office Visit [facility] [address] [place] [address] Navya Woody MD [address] [facility] [address] [place] [address] 06/07/2025 2:00 PM EDT Consult [facility] [address], 1[address] [place] [address] Haseeb Dias MD [address] [place] [address] documented as of this encounter Procedures Procedure Name Priority Date/Time Associated Diagnosis Comments IR OUTSIDE IMAGES 11/26/2022 7:07 AM EDT documented in this encounter Results * IR OUTSIDE IMAGES (11/26/2022 7:07 AM EDT) Anatomical Region Laterality Modality X-Ray Angiograph y 11/26/2022 7:07 AM EDT Delfino FORBES IMJudson IR PROCEDURES Final Result documented in this encounter Visit Diagnoses Not on filedocumented in this encounter Additional Health Concerns Infection Onset 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
--- OUTSIDE RECORDS SUMMARY | 2024-12-19 12:44 | XMS_ITS | Encounter Summary ---
Author Organization [facility] Address [address] [place] [address] Care Team Providers Care Photovoltaic Solar Cell Designer Name Role Phone Donald Driscoll MD Primary Care Provider + [phone] Aman Hernandez MD Primary Care Provider Freedom Salazar Unavailable Unavailable Encounter Details Date Type Department Care Team (Late st Contact Info) Description 06/17/2021 Orders Only External Location [address] [place] [address] Aman Hernandez MD 2195 [facility] 125 [place] [address] Social History Tobacco Use Types [...] Description 12/20/2024 2:00 PM EDT Pre-Admission Testing [facility] [address], 1st [place] [address] 12/27/2024 7:30 AM EST Appointment [facility] Interventional Radiology [address] [place] [address] 12/30/2024 1:00 PM EST Office Visit [facility] Otolaryngology [address], 3rd [place] [address] Yobani Benoit MD [address] [facility] [address] [place] [address] 02/02/2025 9:00 AM EST Appointment [facility] Radiology [address] [place] [address] 05/24/2025 2:30 PM EDT Office Visit [facility] [address] [place] [address] Navya Woody MD [address] [facility] [address] [place] [address] 06/07/2025 2:00 PM EDT Consult [place] [facility] [address], 1st [place] [address] Haseeb Dias MD [phone] [place] [address] documented as of this encounter [...] documented as of this encounter Care Teams Photovoltaic Solar Cell Designer Relationship Specialty Start Date End Date Donald Driscoll MD [address] [place] [address] PCP - General 07/06/20 06/17/21 [place] [address] [place] [address] [address] [place] [address] PCP - General Family Medicine 06/18/21 Freedom Salazar [address] [place] [place] [address] Community Health Worker Hay Stacker 07/08/2107/09 documented as of this encounter
--- OUTSIDE RECORDS SUMMARY | 2024-12-19 12:44 | XMS_ITS | Encounter Summary ---
Author Organization Healthcare Address [address] [place] [address] Care Team Providers Care Chemical Maker Name Role Phone Aman Hernandez MD Primary Care Provider Encounter Details Date Type Department Care Team (Late st Contact Info) Description 10/20/2022 Orders Only External Location [address] [place] [address] Nathaniel Gomez MD [address] [place] [address] Social History Tobacco Use Types Packs/Day [...] Description 12/20/2024 2:00 PM EDT [facility]mission Testing [facility] [address], 1st [place] [address] 12/27/2024 7:30 AM EST Appointment [facility] Interventional Radiology [address] [place] [address] 12/30/2024 1:00 PM EST Office Visit [facility] Otolaryngology [address], 3rd [place] [address] Yobani Benoit MD [address] [place] [address] 02/02/2025 9:00 AM EST Appointment [facility] Radiology [address] [place] [address] 05/24/2025 2:30 PM EDT Office Visit [facility] [address] [place] [address] Navya Woody MD [address] [place] [address] 06/07/2025 2:00 PM EDT Consult [facility] [address], 1[address] [place] [address] Haseeb Dias MD [address] [place] [address] documented as of this encounter [...] documented as of this encounter Care Teams Chemical Maker Relationship Specialty Start Date End Date Aman Hernandez MD [address] [address] PCP - General Family Medicine 06/18/21 documented as of this encounter
--- OUTSIDE RECORDS SUMMARY | 2024-12-19 12:44 | XMS_ITS | Encounter Summary ---
Author Organization Healthcare Address [address] [place] [address] Care Team Providers Care Terrazzo Journeyman Name Role Phone Aman Hernandez MD Primary Care Provider Encounter Details Date Type Department Care Team (Late st Contact Info) Description 11/18/2024 Telephone [facility] Ot[facility] [address], 3rd [place] [address] Vianey Mascorro Social History Tobacco [...] (including now)? Patient unable to answer 10/31/2024 [facility] Utilities Answer Date Recorded In the [...] 12/20/2024 2:00 PM EDT Pre-Admission Testing [facility] Pre-op Clinic [address], 1st [place] [address] 12/27/2024 7:30 AM EST Appointment [facility] Interventional Radiology [address] [place] [address] 12/30/2024 1:00 PM EST Office Visit [facility] Otolaryngology [address], 3rd [place] [address] Yobani Benoit MD [address] [facility] [address] [place] [address] 02/02/2025 9:00 AM EST Appointment [facility] Radiology [address] [place] [address] 05/24/2025 2:30 PM EDT Office Visit [facility] [address] [place] [address] Navya Woody MD [address] [facility] [address] [place] [address] 06/07/2025 2:[address] [facility] [address], 1st [place] [address] Haseeb Dias MD [address] [facility] [address] [place] [address] documented as of this encounter Visit Diagnoses [...] documented as of this encounter Care Teams Terrazzo Journeyman Relationship Specialty Start Date End Date Aman Hernandez MD [address] [address] PCP - General Family Medicine 06/18/21 documented as of this encounter
--- OUTSIDE RECORDS SUMMARY | 2024-12-19 12:44 | XMS_ITS | Encounter Summary ---
Author Organization Healthcare Address [address] [place] [address] Care Team Providers Care Automated Logistics Specialist Name Role Phone Aman Hernandez MD Primary Care Provider Encounter Details Date Type Department Care Team (Late st Contact Info) Description 10/20/2022 Orders Only External Location [address] [place] [address] Nathaniel Gomez MD [address] [place] [address] Social History Tobacco Use Types Packs/Day [...] Description 12/20/2024 2:00 PM EDT [facility] [address], 1st [place] [address] 12/27/2024 7:30 AM EST Appointment [facility] Interventional Radiology [address] [place] [address] 12/30/2024 1:00 PM EST Office Visit [facility] Otolaryngology [address], 3rd [place] [address] Yobani Benoit MD [address] [place] [address] 02/02/2025 9:00 AM EST Appointment [facility] Radiology [address] [place] [address] 05/24/2025 2:30 PM EDT Office Visit [facility] Eye [facility] [address] [place] [address] Navya Woody MD [address] [facility] [address] [place] [address] 06/07/2025 2:00 PM EDT Consult [facility] [address], 1st [place] [address] Haseeb Dias MD [address] [place] [address] documented as of this encounter [...] documented as of this encounter Care Teams Automated Logistics Specialist Relationship Specialty Start Date End Date Aman Hernandez MD [address] [address] PCP - General Family Medicine 06/18/21 documented as of this encounter
--- OUTSIDE RECORDS SUMMARY | 2024-12-19 12:44 | XMS_ITS | Encounter Summary ---
Author Organization [facility] Address [address] [place] [address] Care Team Providers Care Shine Worker Name Role Phone Donald Driscoll MD Primary Care Provider + [phone] Aman Hernandez MD Primary Care Provider Freedom Salazar Unavailable Unavailable Encounter Details Date Type Department Care Team (Late st Contact Info) Description 06/17/2021 Orders Only External Location [address] [place] [address] Aman Hernandez MD 2195 [facility] 125 [place] [address] Social History Tobacco Use Types [...] Description 12/20/2024 2:00 PM EDT Pre-Admission Testing [facility] Pre[facility]op Clinic [address], 1st [place] [address] 12/27/2024 7:30 AM EST Appointment [facility] Interventional Radiology [address] [place] [address] 12/30/2024 1:00 PM EST Office Visit [facility] Otolaryngology [address], 3rd [place] [address] Yobani Benoit MD [address] [facility] [address] [place] [address] 02/02/2025 9:00 AM EST Appointment [facility] Radiology [address] [place] [address] 05/24/2025 2:30 PM EDT Office Visit [facility] [address] [place] [address] Navya Woody MD [address] [facility] [address] [place] [address] 06/07/2025 2:00 PM EDT Consult [place] [facility] [address], 1[address] [place] [address] Haseeb Dias MD [address] [place] [address] documented as of this encounter [...] documented as of this encounter Care Teams Shine Worker Relationship Specialty Start Date End Date Donald Driscoll MD [address] [place] [address] PCP - General 07/06/20 06/17/21 [place] [address] [place] [address] [address] [place] [address] PCP - General Family Medicine 06/18/21 Freedom Salazar [address] [place] [address] Community Health Worker Timber Watchman 07/08/2107/09 documented as of this encounter
--- OUTSIDE RECORDS SUMMARY | 2024-12-19 12:44 | XMS_ITS | Encounter Summary ---
Author Organization Healthcare Address [address] [place] [address] Care Team Providers Care Meat Supervisor Name Role Phone Aman Hernandez MD Primary Care Provider Encounter Details Date Type Department Care Team (Late st Contact Info) Description 10/20/2022 Orders Only External Location [address] [place] [address] Nathaniel Gomez MD [address] [place] [address] Social History Tobacco Use Types Packs/Day [...] Description 12/20/2024 2:00 PM EDT Pre-Admission Testing [facility] [address], 1st [place] [address] 12/27/2024 7:30 AM EST Appointment [facility] Interventional Radiology [address] [place] [address] 12/30/2024 1:00 PM EST Office Visit [facility] Otolaryngology [address], 3rd [place] [address] Yobani Benoit MD [address] [place] [address] 02/02/2025 9:00 AM EST Appointment [facility] Radiology [address] [place] [address] 05/24/2025 2:30 PM EDT Office Visit [facility] [address] [place] [address] Navya Woody MD [address] [facility] [address] [place] [address] 06/07/2025 2:[address] [facility] [address], [address] [place] [address] Haseeb Dias MD [address] [place] [address] documented as of this encounter [...] documented as of this encounter Care Teams Meat Supervisor Relationship Specialty Start Date End Date Aman Hernandez MD [address] [address] PCP - General Family Medicine 06/18/21 documented as of this encounter
--- OUTSIDE RECORDS SUMMARY | 2024-12-19 12:44 | XMS_ITS | Encounter Summary ---
Author Organization Healthcare Address [address] [place] [address] Care Team Providers Care Infection Control Preventionist Name Role Phone Aman Hernandez MD Primary Care Provider Encounter Details Date Type Department Care Team (Late st Contact Info) Description 10/20/2022 Orders Only External Location [address] [place] [address] Nathaniel Gomez MD [address] [place] [address] Social History Tobacco Use Types Packs/Day [...] Description 12/20/2024 2:00 PM EDT Pre-Admission Testing [facility] [address], 1[address] [place] [address] 12/27/2024 7:30 AM EST Appointment [facility] Interventional Radiology [address] [place] [address] 12/30/2024 1:00 PM EST Office Visit [facility] [address], 3rd [place] [address] Yobani Benoit MD [address] [place] [address] 02/02/2025 9:00 AM EST Appointment [facility] Radiology [address] [place] [address] 05/24/2025 2:30 PM EDT Office Visit [facility] Eye Care [address] [place] [address] Navya Woody MD [address] [facility] [address] [place] [address] 06/07/2025 2:00 PM EDT Consult [facility] [address], 1[address] [place] [address] Haseeb Dias MD [address] [place] [address] documented as of this encounter Procedures Procedure Name Priority Date/Time Associated Diagnosis Comments CT ANGIO HEAD 10/20/2022 12:34 PM EDT documented in this encounter Results * CT Angio Head (10/20/2022 12:34 PM EDT) Anatomical Region Laterality Modality [place] Computed Tomogr aphy 10/20/2022 12:3 [...] documented as of this encounter Care Teams Infection Control Preventionist Relationship Specialty Start Date End Date Aman Hernandez MD [address] [address] PCP - General Family Medicine 06/18/21 documented as of this encounter
--- OUTSIDE RECORDS SUMMARY | 2024-12-19 12:44 | XMS_ITS | Clinical Summary ---
Author Organization [facility] Address [address] [place] [address] Care Team Providers Care Printing Sign Machine Operator Name Role Phone Yonny Scott MD Primary Care Provider + [phone] Allergies Active Allergy Reactions Criticality Noted Date [...] Type Department Care Team Description 12/06/2024 Telephone [facility] NEUROLOGY [address] [facility] [address] [place] [address] Julissa Kenney APRN 12/06/2024 Telephone [facility] NEUROLOG[facility] 17[address] [facility] [address] [place] [address] Julissa Kenney, AMY from Last 3 Months Social History Tobacco Use Types Packs/Day Years Used Date Smoking Tobacco: Former Cigarettes 0.3 50 Passive Smoke Exposure: Past Smokeless Tobacco: Never Tobacco Cessation:Counseling Given: No Alcohol Use Standard Drinks/Week Comments Not Currently 19 (1 standard drink = 0.6 oz pu re alcohol) [facility] Utilities Answer Date Recorded In the past 12 months has [employer], [employer], or water [employer] threatened to shut off services in your [...] GED or equivalent No 07/20/2024 Preferred Language Bhutanese 07/20/2024 PHQ-2 Answer Date Recorded Patient Health [...] 05/22/2023, 024 Medical Devices Implanted Type Area Radiation Oncology Nurse Device Identifier Shelf Expiration Date Model / Serial / Lot Stent Implanted:Qty: 3 Stent Description:2 renal stents a nd 1 subclavian Stnt Carotid Xact Tpr 10 To 8x40mm - [id number] Implanted:Qty: 1 on 01/07/2023 by Pedro Dwyer MD at [facility] Stent YA VASCULAR 820 [id number] / / [id number] Procedures Procedure Name Priority Date/Time Associated Diagnosis Comments LIPID PANEL STAT 07/20/2024 9:27 AM EDT from Last 3 Months or Most Recently Relevant to Health Maintenance Results * Lipid Panel (07/20/2024 9:27 AM EDT) Total Cholesterol 112 0 - 200 mg/dL 07/20/2024 10:08 AM EDT [facility] Triglycerides 131 0 - 150 mg/dL 07/20/2024 10:08 AM EDT [facility] HDL Cholesterol 42 40 - 60 mg/dL 07/20/2024 10:08 AM EDT [facility] LDL Cholesterol 47 0 - 100 mg/dL 07/20/2024 10:08 AM EDT [facility] VLDL Cholesterol 23 5 - 40 mg/dL 07/20/2024 10:08 AM EDT [facility] LDL/HDL Ratio 1.04 07/20/2024 10:08 AM EDT [facility] Blood Venipuncture / Unknown 07/20/2024 9:27 AM EDT 07/20/2024 9:33 AM EDT Narrative [facility] - 07/20/2024 10:08 AM EDT Cholesterol [...] using the NIH LDL-C calculation. Bro Callumkristy SAP BASIS LAB BLOOD ORDERABLES Final [facility] Organization Address City/State/ZIP Co de Phone Number [facility]
[address] [place] [address], from Last 3 Months or Most Recently Relevant to Health Maintenance Insurance [facility] MEDICARE ADVANTAGE Member Subscriber Plan / Payer (Ef fective 2022-Present) Name:[place] Mata Relation to Subscriber:Self Name:[place] Mata Payer ID:[id number] (NAIC) Type:Medicare Replacement Address: [place] [phone] [facility] MEDICARE ADVANTAGE PPO Advance Directives Documents on File Type Date Recorded Patient Payroll Lead Expl anation PATIENT ADVANCE DIRECTIVES - SCAN [...] Of Support Discussed With: Patient Care Teams Printing Sign Machine Operator Relationship Specialty Start Date End Date Yonny Scott MD [facility] [address] [address] PCP - General Adolescent Medicine 07/19/24
--- OUTSIDE RECORDS SUMMARY | 2024-12-19 12:44 | XMS_ITS | Encounter Summary ---
Author Organization Healthcare Address [address] [place] [address] Care Team Providers Care Steel Fabricator Name Role Phone Aman Hernandez MD Primary Care Provider Reason for Referral * Consultation (Routine) - Closed Specialty Diagnoses / Procedures Referred By Zoe guevara Referred To Contact Ophthalmology Diagnoses Personal history of transient cerebral ischemia Unspecified visual loss Yonny Scott MD [facility] [address] [place] [address] Phone: tel: fax: [facility] [address] [place] [address] Phone: tel: fax: Referral ID Status Reason Start Date Expiration Date V isits Requested Visits Authorized [id number] Closed Specialty Services Required 07/11/2024 01/10/2026 1 1 Encounter Details Date Type Department Care Team (Late st Contact Info) Description 07/11/2024 [facility] [address] [place] [address] Yonny Scott MD [facility] [address] [place] [address] Personal history of transient cerebral [...] place to sleep or slept in a snf (including now)? No 05/22/2023 PHQ-9 Answer Date [...] Recorded In the past 12 months has [employer] gas, oil, or water [employer] threatened to shut off services in your [...] [facility] [address], [address]st [place] [address] 12/27/2024 7:30 AM EST Appointment [facility] Interventional Radiology [address] [place] [address] 12/30/2024 1:00 PM EST Office Visit [facility] Otolaryngology [address], 3rd [place] [address] Yobani Benoit MD [address] [facility] [address] [place] [address] 02/02/2025 9:00 AM EST Appointment [facility] Rad[facility] [address] [place] [address] 05/24/2025 2:30 PM EDT Office Visit [facility] [address] [place] [address] Navya Woody MD [address] [place] [address] 06/07/2025 2:00 PM EDT Consult [place] [facility] [address], [address] [place] [address] Haseeb Dias MD [address] [place] [address] Scheduled Referrals Name Type Priority [...] documented as of this encounter Care Teams Steel Fabricator Relationship Specialty Start Date End Date Aman Hernandez MD [address] [place] [address] PCP - General Family Medicine 06/18/21 documented as of this encounter
--- OUTSIDE RECORDS SUMMARY | 2024-12-19 12:44 | XMS_ITS | Encounter Summary ---
Author Organization Healthcare Address [address] [place] [address] Care Team Providers Care Tight Barrel Inspector Name Role Phone Aman Hernandez MD Primary Care Provider Encounter Details Date Type Department Care Team (Late st Contact Info) Description 11/18/2022 Orders Only External Location [address] [place] [address] [place], [place] [address] [facility] [address] [place], [place] [id number] Social History Tobacco Use Types Packs/Day Years [...] Description 12/20/2024 2:00 PM EDT [facility] [address], [address] [place] [address] 12/27/2024 7:30 AM EST Appointment [facility] Interventional Radiology [address] [place] [address] 12/30/2024 1:00 PM EST Office Visit [facility] Otolaryngology [address] 3[address] [place] [address] Yobani Benoit MD [address] [place] [address] 02/02/2025 9:00 AM EST Appointment [facility]iology [address] [place] [address] 05/24/2025 2:30 PM EDT Office Visit [facility] [address] [place] [address] Navya Woody MD [address] [place] [address] 06/07/2025 2:00 PM EDT Consult [facility] [address] [place] [address] Haseeb Dias MD [address] [place] [address] documented as of this encounter [...] documented as of this encounter Care Teams Tight Barrel Inspector Relationship Specialty Start Date End Date Aman Hernandez MD [address] [address] PCP - General Family Medicine 06/18/21 documented as of this encounter
--- OUTSIDE RECORDS SUMMARY | 2024-12-19 12:45 | XMS_ITS | Encounter Summary ---
Author Organization [facility] Address [address] [place] [address] Care Team Providers Care Director Of Accounts Payable Name Role Phone Aman Hernandez MD Primary Care Provider Encounter Details Date Type Department Care Team (Late st Contact Info) Description 10/30/2024 Orders Only External Location [address] [place] [address] Provider, External Social History Tobacco Use Types [...] (including now)? Patient unable to answer 10/31/2024 [facility] Utilities Answer Date Recorded In [...] Description 12/20/2024 2:00 PM EDT Pre-Admission Testing [facility] Pre-op Clinic [address], 1[address] [place] [address] 12/27/2024 7:30 AM EST Appointment [facility] Interventional Radiology [address] [place] [address] 12/30/2024 1:00 PM EST Office Visit [facility] Otolaryngology [address] 3rd [place] [address] Yobani Benoit MD [address] [facility] [address] [place] [address] 02/02/2025 9:00 AM EST Appointment [facility] [address] [place] [address] 05/24/2025 2:30 PM EDT Office Visit [facility] [address] [place] [address] Navya Woody MD [address] [place] [address] 06/07/2025 2:00 PM EDT Consult [place] [facility] [address] 1[address] [place] [address] Haseeb Dias MD [address] [place] [address] documented as of this encounter [...] of this encounter Care Teams Director Of Accounts Payable Relationship Specialty Start Date End Date Aman Hernandez MD [address] [place] [address] PCP - General Family Medicine 06/18/21 documented as of this encounter
--- OUTSIDE RECORDS SUMMARY | 2024-12-19 12:45 | XMS_ITS | Encounter Summary ---
Author Organization [facility] Address [address] [place] [address] Care Team Providers Care Care Nurse Rn Name Role Phone Aman Hernandez MD Primary Care Provider Encounter Details Date Type Department Care Team (Late st Contact Info) Description 10/29/2024 Orders Only External Location [address] [place] [address] Provider, External Social History Tobacco Use Types [...] (including now)? Patient unable to answer 10/31/2024 [facility] Utilities Answer Date Recorded In [...] Description 12/20/2024 2:00 PM EDT Pre-Admission Testing [facility]op Clinic [address], 1[address] [place] [address] 12/27/2024 7:30 AM EST Appointment [facility] Interventional Radiology [address] [place] [address] 12/30/2024 1:00 PM EST Office Visit [facility] Otolaryngology [address], 3rd [place] [address] Yobani Benoit MD [address] [facility] [address] [place] [address] 02/02/2025 9:00 AM EST Appointment [facility] [address] [place] [address] 05/24/2025 2:30 PM EDT Office Visit [facility] [address] [facility] [place] [address] Navya Woody MD [address] [facility] [address] [place] [address] 06/07/2025 2:00 PM EDT Consult [facility] [address], [address] [place] [address] Haseeb Dias MD [address] [facility] [address] [place] [address] documented as of this encounter Procedures Procedure Name Priority Date/Time Associated Diagnosis Comments CT NEURO OUTSIDE IMAGES 10/29/2024 11:32 PM EDT documented in this encounter Results * CT NEURO OUTSIDE IMAGES (10/29/2024 11:32 PM EDT) Anatomical Region Laterality Modality Computed Tomogra phy 10/29/2024 11:3 2 PM EDT us External Provider IMG CT [...] documented as of this encounter Care Teams Care Nurse Rn Relationship Specialty Start Date End Date Aman Hernandez MD [address] [id number] PCP - General Family Medicine 06/18/21 documented as of this encounter
--- OUTSIDE RECORDS SUMMARY | 2024-12-19 12:45 | XMS_ITS | Encounter Summary ---
Author Organization [facility] Address [address] 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 Patient unable to answer 10/31/2024 [facility] Utilities Answer Date Recorded In the [...] Low Risk 11/03/2024 8:00 PM EDT Rosi Angelse * Question Answer Date of Assessment Author [...] Testing [facility] Pre-op Clinic [address], 1[address] [place] [address] 12/27/2024 7:30 AM EST Appointment [facility] Interventional Radiology [address] [place] [address] 12/30/2024 1:00 PM EST Office Visit [facility] Otolaryngology [address] 3rd [place] [address] Yobani Benoit MD [address] [place] [address] 02/02/2025 9:00 AM EST Appointment [facility] [address] [place] [address] 05/24/2025 2:30 PM EDT Office Visit [facility] [address] [place] [address] Navya Woody MD [address] [place] [address] 06/07/2025 2:00 PM EDT [facility] [address], [address] [place] [address] Haseeb Dias MD [address] [place] [address] documented as of this encounter Procedures Procedure Name Priority Date/Time Associated Diagnosis Comments MULTI DRUG RESISTANCE TEST Routine 10/31/2024 5:30 PM EDT Encounter for general adult medical examination without abnormal findings documented in this encounter Results * Multi Drug Resistance Test (10/31/2024 5:30 PM EDT) Culture No growth at day 1 11/01/2024 8:21 PM EDT [facility] Swab (Nares and Marley Rectal) 10/31/2024 5:30 PM EDT 10/31/2024 6:42 PM EDT Narrative [facility] - 11/01/2024 8:21 PM EDT This test was developed and its performance characteristics determined by the [facility]. Although the media is FDA-approved, it is not FDA-approved for all specimen types submitted. The FDA has determined that such clearance or approval is not necessary. This test is used for surveillance purposes. It should not be regarded as investigational or for research. The [facility] is certified under the Clinical Laboratory Improvement Amendments of 1988 (CLIA-88) as qualified to perform high complexity clinical laboratory testing. 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
--- OUTSIDE RECORDS SUMMARY | 2024-12-19 12:45 | XMS_ITS | Clinical Summary ---
Author Organization [facility] Address [address] [place] [address] Care Team Providers Care Stock Digger Name Role Phone Aman Hernandez MD Primary [...] Active Additional Information Patient not taking.Reported on 12/15/2024 Aspirin Low Dose 81 MG EC tablet [...] Active Additional Information Patient not taking.Reported on 12/15/2024 Fe Asp Avn-Ewqk-W-Thre-B1 2-FA (Multigen Folic) 70-150-2-1 MG tablet Take 1 tablet by mouth. Active furosemide (Lasix) 20 MG tablet 1 tablet. 12/03/19 Active HYDROcodone-acetam inophen (Reeder) 5-325 MG tablet Take 1 tablet by mouth every 6 hours as needed. 05/25/19 Active lisinopril 20 MG tablet Take 1 tablet by mouth daily. 10/19/19 25 Active losartan (Cozaar) 50 MG tablet Take 1 tablet by mouth. Active ondansetron ODT (Zofran-ODT) 4 MG disintegrating tablet 1 tablet. 12/03/19 Active acetaminophen (Tylenol) 500 MG tablet Take 1 tablet by mouth 4 times a day for 7 days. 28 tablet 11/13/19 25 megestrol (Megace) 40 MG/ML suspension Take 10 mL by mouth daily for 7 days. Shake well just before you measure a dose. Measure with a special dose-measuring spoon or medicine cup, not with a regular table spoon. If you do not have a dose-measuring device, ask your pharmacist for one. 70 mL 11/13/19 25 025 tamsulosin (Flomax) 0.4 MG 24 hr capsule Take 1 capsule by mouth 1 time each day with dinner. 30 capsule 11/13/19 Active Problems Problem Noted Date Diagnosed Date [...] [x] Tertiary 9/8 Transfer to progressive care 9/12 Assessment & Plan (11/07/2024 3:03 PM EDT): [...] Assessment & Plan (11/11/2024 2:40 PM EDT): LAP REGULATOR and MCA stenosis Resume home meds as appropriate in 2 weeks dt tSAH and IVH Assessment & Plan (11/10/2024 4:36 PM EDT): LAP REGULATOR and MCA stenosis Resume home meds as appropriate in 2 weeks dt tSAH and IVH Assessment & Plan (11/09/2024 5:57 PM EDT): LAP REGULATOR and MCA stenosis Resume home meds as appropriate in 2 weeks dt tSAH and IVH Assessment & Plan (11/08/2024 3:07 PM EDT): LAP REGULATOR and MCA stenosis Resume home meds as appropriate in 2 weeks dt tSAH and IVH Assessment & Plan (11/07/2024 3:03 PM EDT): LAP REGULATOR and MCA stenosis Resume home meds as appropriate in 2 weeks dt tSAH and IVH Assessment & Plan (11/06/2024 11:27 AM EDT): Correctional Corporal and mca stenosis Resume home meds as appropriate Assessment & Plan (11/05/2024 10:42 AM EDT): Correctional Corporal and mca stenosis Resume home meds as appropriate Assessment & Plan (11/04/2024 1:15 PM EDT): Correctional Corporal and mca stenosis Resume home meds as appropriate Assessment & Plan (11/04/2024 5:46 AM EDT): Correctional Corporal and mca stenosis Resume home meds as appropriate Assessment & Plan (11/02/2024 2:58 PM EDT): Correctional Corporal and mca stenosis Resume home meds as appropriate Assessment & Plan (11/01/2024 1:55 PM EDT): Correctional Corporal and mca stenosis Resume home meds as appropriate Assessment & Plan (10/31/2024 1:26 PM EDT): Correctional Corporal and mca stenosis Resume home meds as [...] Encounters Date Type Department Care Team Description 12/15/2024 1:30 PM EDT Office Visit [facility] [address], [address] [place] [address] Raymond Nuñez MD Occlusion and stenosis of bilateral carotid arteries (Primary Dx); Pre-op exam 12/15/2024 11:17 AM EDT - 12/15/2024 11:59 PM EDT Hospital Encounter [facility] [address] [address] Occlusion and stenosis of bilateral carotid arteries Discharge Disposition: Home or Self Care 12/15/2024 Travel 12/13/2024 1:00 PM EDT Consult [facility] [address], [address] [place] [address] Ezio Estrada PA Occlusion and stenosis of bilateral carotid arteries (Primary Dx) 12/13/2024 10:37 AM EDT - 12/13/2024 11:59 PM EDT Hospital Encounter [facility] [address], [address] [place] [address] SDH (subdural hematoma) ([facility]) Discharge Disposition: Home or Self Care 12/13/2024 Telephone [facility] [address] [place] [address] Aroldo Cam MD 12/13/2024 Travel 12/05/2024 Telephone [facility] [address], [address] [place] [address] Messi Medrano 12/01/2024 9:00 AM EDT Office Visit [facility] [address] [place] [address] Navya Woody MD Vision loss (Primary Dx); Homonymous hemianopia, right; Ectropion of left lower eyelid, unspecified ectropion type; Bilateral profound visual loss; Other localized visual field defect, bilateral; Nuclear sclerotic cataract of both eyes; Intraventricular hemorrhage (CMS/HCC); Lagophthalmos of right lower eyelid, unspecified lagophthalmos type 12/01/2024 7:45 AM EDT Ancillary Procedure [facility] [address] [place] [address] 12/01/2024 7:40 AM EDT Ancillary Procedure [facility] [place] [address] [place] [address] 12/01/2024 7:40 AM EDT Ancillary Procedure [facility] [address] [place] [address] 12/01/2024 Travel 11/30/2024 Telephone [facility] [address] [place] [address] Navya Woody MD 11/30/2024 Telephone [facility] [address], [address] [place] [address] Yobani Benoit MD HCN Clinical Concern/Question 11/30/2024 Telephone [facility] [address] [place] [address] Monique Barnhart 11/29/2024 Telephone [facility] [address] [place] [address] Aroldo Cam MD HCN - Patient Message 11/25/2024 1:15 PM EDT Office Visit [facility] [address] [place] [address] Yobani Benoit MD Injury of globe of eye, right, initial encounter (Primary Dx); Closed fracture of right zygomatic arch with routine healing, subsequent encounter 11/25/2024 Travel 11/18/2024 Telephone [facility] [address], [address] [place] [address] Vianey Mascorro 11/17/2024 Orders Only [facility] [address], [address] [place] [address] Miranda Garcias PA SDH (subdural hematoma) (CMS/HCC) (Primary Dx) 11/14/2024 Telephone [facility] [address], [address] [place] [address] Vianey Mascorro 11/12/2024 Travel 11/11/2024 Travel 11/03/2024 Travel 11/02/2024 Travel 11/01/2024 1:55 PM EDT Anesthesia Event [facility] [address] [place] [address] Vernon Lim MD Rock, Holly R, PA 11/01/2024 12:56 PM EDT - 11/01/2024 2:41 PM EDT Surgery [facility] [address] [place] [address] Yobani Benoit MD ORIF, FRACTURE, ZYGOMATICOMAXILLARY COMPLEX [70400 (CPT )] 11/01/2024 Ophth Exam [facility] [address] [place] [address] Jovanni Lima MD 11/01/2024 Travel 10/31/2024 Lab Requisition [facility] [address] [place] [address] Benito Waggoner MD Encounter for general adult medical examination without abnormal findings 10/30/2024 2:57 AM EDT - 11/12/2024 4:07 PM EDT Hospital Encounter [facility] [address] [place] [address] Aroldo Simms MD Wei, Helen S, MD Wheelock, Brittany N, MD Pecoraro, Anthony R, MD Coile, Evelyn B, MD Griffen, Margaret M, MD Fall, initial encounter (Primary Dx); Intraventricular [...] initial encounter (CMS/HCC); Retrobulbar hematoma; Brain bleed (CMS/HCC) Discharge Disposition: Rehab Facility 10/30/2024 Ophth Exam [facility] [address] [place] [address] Shannon Mack MD 10/30/2024 Travel 10/30/2024 Orders Only External Location [address] [place] [address] Provider, External 10/29/2024 Orders Only External Location [address] [place] [address] Provider, External 10/29/2024 Orders Only External Location [address] [place] [address] Provider, External 10/29/2024 Orders Only External Location [address] [place] [address] Provider, External 10/29/2024 Orders Only External Location [address] [place] [address] Provider, External 10/29/2024 Orders Only External Location [address] [place] [address] Provider, External 10/29/2024 Orders Only External Location [address] [place] [address] Provider, External 10/29/2024 Orders Only External Location [address] [place] [address] Provider, External 10/29/2024 Orders Only External Location [address] [place] [address] Provider, External 10/29/2024 Orders Only External Location [address] [place] [address] Provider, External from Last 3 Months Immunizations [...] None Diabetes Mother Arthritis Mother's Brother GB [facility] Diabetes Sister None Relation Name Status Comments Brother 1 Brother 2 None Alive Mother Mother's Brother GB [facility] Alive Sister None Social History Tobacco Use [...] any time in the past 12 m [facility], were you homeless or living in a alf (including now)? Patient unable to answer 10/31/2024 [facility] Utilities Answer Date Recorded In the [...] Pulse 92 12/15/2024 12:47 PM EDT Temperature 36.6 C (97.8 F) 11/12/2024 11:32 AM EDT Respiratory Rate 16 11/11/2024 11:02 PM EDT Oxygen Saturation 97% 12/15/2024 12:47 PM EDT Inhaled Oxygen Concentration - - Weight 57.7 kg (127 lb 3.3 oz) 12/15/2024 12:47 PM EDT Height 157.5 cm (5' 2 ) 12/13/2024 12:41 PM EDT Body Mass Index 23.27 12/13/2024 12:41 PM EDT Plan of Treatment Upcoming Encounters Date Type Department Care Team (Latest Contact Info) Description 12/20/2024 2:00 PM EDT Pre-Admission Testing [facility] [address], [address] [place] [address] 12/27/2024 7:30 AM EST Appointment [facility] [address] [place] [address] 12/30/2024 1:00 PM EST Office Visit [facility] [address], [address] [place] [address] Yobani Benoit MD [address] [place] [address] 02/02/2025 9:00 AM EST Appointment [facility] [address] [place] [address] 05/24/2025 2:30 PM EDT Office Visit [facility] [address] [place] [address] Navya Woody MD [address] [address] 06/07/2025 2:00 PM EDT Consult [place] [facility] [address], [address] [place] [address] Haseeb Dias MD [address] [place] [address] Health Maintenance Due Date Last Done Comments [facility]-Bone Density Scan 1960 [facility]-Medicare Annual Wellness (AWV) 1960 [facility]-/Child/Adol SDOH Screenings 1960 [address] Colonography 08/09/2003 Colonoscopy 08/09/2003 FIT-DNA 08/09/2003 FIT 08/09/2003 FOBT 08/09/2003 Sigmoidoscopy 08/09/2003 [facility]-Colorectal Cancer Screening 08/09/2003 [facility]-Breast Cancer Screening 06/30/2013 07/01/2011 [facility]-RSV Vaccine: 60+ Years or (1 - Risk 60-74 years 1-dose series) 2018 [facility]-Zoster Vaccines (2 of 2) 11/16/2023 09/21/2023 [facility]-Depression Screening 05/21/2024 05/22/2023, 04/24 [id number] Vaccine ( season) 2024 02/03/2022, 02/01/2021, 06/06/2020, Additional history [...] on patient's age to complete this topic Goals Goal Patient Goal Type Associated Problems Recent Progress Patient-Stated? Author Autogenerat ed Goal Care Plan Autogenerated Problem No Alexandra Burgess Medical Devices Implanted Type Area Gyroscopic Instrument Mechanic Device Identifier Shelf Expiration Date Model / Serial / Lot Barrier Floor And Wall - [id number] - [id number] Implanted:Qty: 1 on 11/01/2024 by Yobani Benoit MD at [facility] Implant [id number] 520.220S / 220S / Plate Matric Orbital Rim Plate 12 Holes 0.5mm - [id number] - [id number] Implanted:Qty: 1 on 11/01/2024 by Yobani Benoit MD at [facility] Plate [id number] / / Plate Matric Oblique L-Pl 3x4 Holes-Rt/0.8mm - [id number] - [id number] Implanted:Qty: 1 on 11/01/2024 by Yobani Benoit MD at [facility] Plate [id number]. / / Screw Screw Matrix Self-Drill 4mm - [id number]. - [id number] Implanted:Qty: 1 on 11/01/2024 by Yobani Benoit MD at [facility] Screw [id number] .. / . / Screw Matrix Self-Drill 5mm - [id number]. - [id number] Implanted:Qty: 10 on 11/01/2024 by Yobani Benoit MD at [facility] Scre[id number] . / . / Procedures Procedure Name Priority Date/Time Associated Diagnosis Comments MORPHOLOGY Routine 12/15/2024 1:53 PM EDT Occlusion and stenosis of bilateral carotid arteries Pre-op exam MANUAL DIFFERENTIAL Routine 12/15/2024 1 :53 PM EDT Occlusion and stenosis of bilateral carotid arteries Pre-op exam CBC WITH AUTO DIFFERENTIAL Routine 12/15/2024 1:53 PM EDT Occlusion and stenosis of bilateral carotid arteries Pre-op exam APTT Routine 12/15/2024 1:53 PM EDT Occlusion and stenosis of bilateral carotid arteries Pre-op exam PROTHROMBIN TIME(PT) / INR Routine 12/15/2024 1:53 PM EDT Occlusion and stenosis of bilateral carotid arteries Pre-op exam COMPREHENSIVE METABOLIC PANEL, PLASMA Routine 12/15/2024 1:53 PM EDT Occlusion and stenosis of bilateral carotid arteries Pre-op exam PREALBUMIN, PLASMA Routine 12/15/2024 1: 53 PM EDT Occlusion and stenosis of bilateral carotid arteries Pre-op exam PLATELET P2Y12 RECEPTOR BLOCKADE, VERIFY NOW PRU Routine 12/15/2024 1:53 PM EDT Occlusion and stenosis of bilateral carotid arteries Pre-op exam VAS US CAROTID DUPLEX BILATERAL Routine 12/15/2024 12:34 PM EDT Occlusion and stenosis of bilateral carotid arteries CT HEAD WO IV CONTRAST Routine 10:45 AM EDT SDH (subdural hematoma) (CMS/HCC) OCT, RETINA - OU - BOTH EYES [...] OXYGEN THERAPY Routine 11/04/2024 8:00 AM EDT AL CRITICAL CARE, E/M 30-74 MINUTES Routine 11/04/2024 7:05 AM EDT Fall, initial encounter Electrolyte abnormality Traumatic brain injury, with unknown loss of consciousness status, initial encounter ([facility]) Acute respiratory failure with hypoxia Hypertension, [...] RIGHT 3+ VIEWS Routine 12:43 PM EDT AL CRITICAL CARE, E/M 30-74 MINUTES Routine 11/03/2024 11:16 AM EDT Fall, initial encounter Electrolyte abnormality Traumatic brain injury, with unknown loss of consciousness status, initial encounter ([facility]) Acute respiratory failure with hypoxia OXYGEN [...] OXYGEN THERAPY Routine 11/02/2024 12:53 PM EDT AL CRITICAL CARE, E/M 30-74 MINUTES Routine 11/02/2024 10:25 AM EDT Fall, initial encounter Traumatic brain injury, with unknown loss of consciousness status, initial encounter ([facility]) Acute respiratory failure with hypoxia Hypertension, [...] ANESTHESIA PLACEHOLDER Routine 11/01/2024 2:10 PM EDT AL AN ELECTIVE ENDOTRACHEAL AIRWAY Routine 11/01/2024 2:10 PM EDT ORIF, FRACTURE, ORBIT, FLOOR 11/01/2024 1:40 PM EDT Closed fracture of right zygomatic arch, initial encounter ([facility]) AL OPEN RX COMPLX CHEEK BONE FRAC 11/01/2024 1:40 PM EDT Closed fracture of right zygomatic arch, initial encounter ([facility]) XR CHEST 1 VIEW STAT 11/01/2024 [...] 2 VIEWS STAT 11/01/2024 9:55 AM EDT AL CRITICAL CARE, E/M 30-74 MINUTES Routine 11/01/2024 7:22 AM EDT Fall, initial encounter Hyperlipidemia, unspecified hyperlipidemia type Traumatic brain injury, with unknown loss of consciousness status, initial encounter ([facility]) Acute respiratory failure with hypoxia PHOSPHORUS, PLASMA [...] EDT EXTUBATION Routine 10/31/2024 1:11 PM EDT AL CRITICAL CARE, E/M 30-74 MINUTES Routine 10/31/2024 [...] 10/30/2024 4:02 PM EDT Fall, initial encounter AL INSERT NON-TUNNEL CV CATH Routine 10/30/2024 4:02 [...] REACTION INVESTIGATION Routine 10/30/2024 10:04 AM EDT AL CRITICAL CARE, ADDL 30 MIN Routine 10/30/2024 [...] globe of eye, right, initial encounter Debility AL CRITICAL CARE, ADDL 30 MIN Routine 10/30/2024 [...] 10/30/2024 9:11 AM EDT Intraventricular hemorrhage (CMS/HCC) AL INSERT CATH,ART,PERCUT,LOR ERM Routine 10/30/2024 9:11 AM [...] WO IV CONTRAST Timed 5:39 AM EDT MELISSA AURIS SURVEILLANCE BY PCR Routine 10/30/2024 4:47 [...] Recently Relevant to Health Maintenance Results * Morphology (12/15/2024 1:53 PM EDT) RBC Morphology RBC Morphology Consistent with Indices and RDW LAB HEMATOLOGY METHOD 12/15/2024 5:32 PM EDT [facility] Platelet Estimate Platelet smear estimate consistent with automated count LAB HEMATOLOGY METHOD 12/15/2024 5:32 PM EDT [facility] Blood Venous blood specimen / Unknown Venipuncture / Unknown 12/15/2024 1:53 PM EDT 12/15/2024 1:55 PM EDT Raymond Nuñez MD LAB BLOOD ORDERABLES Final Result [facility] [address] [place] [address] * (ABNORMAL) Manual Differential (12/15/2024 1:53 PM EDT) Blasts % 0 % LAB HEMATOLOGY METHOD 12/15/2024 5:32 PM EDT [facility] Promyelocytes % 0 % LAB HEMATOLOGY METHOD 12/15/2024 5:32 PM EDT [facility] Myelocytes % 0 % LAB HEMATOLOGY METHOD 12/15/2024 5:32 PM EDT [facility] Metamyelocytes % 0 % LAB HEMATOLOGY METHOD 12/15/2024 5:32 PM EDT [facility] Neutrophils % 73 % LAB HEMATOLOGY METHOD 12/15/2024 5:32 PM EDT [facility] Lymphocytes % 24 % LAB HEMATOLOGY METHOD 12/15/2024 5:32 PM EDT [facility] Reactive Lymphocytes % 0 % LAB HEMATOLOGY METHOD 12/15/2024 5:32 PM EDT [facility] Monocytes % 2 % LAB HEMATOLOGY METHOD 12/15/2024 5:32 PM EDT [facility] Eosinophils % 0 % LAB HEMATOLOGY METHOD 12/15/2024 5:32 PM EDT [facility] Basophils % 1 % LAB HEMATOLOGY METHOD 12/15/2024 5:32 PM EDT [facility] Blasts Absolute LAB HEMATOLOGY METHOD 12/15/2024 5:32 PM EDT [facility] Promyelocytes Absolute LAB HEMATOLOGY METHOD 12/15/2024 5:32 PM EDT [facility] Myelocytes Absolute LAB HEMATOLOGY METHOD 12/15/2024 5:32 PM EDT [facility] Metamyelocytes Absolute LAB HEMATOLOGY METHOD 12/15/2024 5:32 PM EDT [facility] Neutrophils Absolute 6.14(H) 1.60 - 6.10 10*3/uL LAB HEMATOLOGY METHOD 12/15/2024 5:32 PM EDT [facility] Lymphocytes Absolute 2.02 1.20 - 3.90 10*3/uL LAB HEMATOLOGY METHOD 12/15/2024 5:32 PM EDT [facility] Reactive Lymphocytes Absolute LAB HEMATOLOGY METHOD 12/15/2024 5:32 PM EDT [facility] Monocytes Absolute 0.17(L) 0.30 - 0.90 10*3/uL LAB HEMATOLOGY METHOD 12/15/2024 5:32 PM EDT [facility] Eosinophils Absolute LAB HEMATOLOGY METHOD 12/15/2024 5:32 PM EDT [facility] Basophils Absolute 0.08 0.00 - 0.10 10*3/uL LAB HEMATOLOGY METHOD 12/15/2024 5:32 PM EDT [facility] Blood Venous blood specimen / Unknown Venipuncture / Unknown 12/15/2024 1:53 PM EDT 12/15/2024 1:55 PM EDT Raymond Nuñez MD LAB BLOOD ORDERABLES Final Result [facility] [address] [place] [address] * (ABNORMAL) P2Y12 platelet function (12/15/2024 1:53 PM EDT) P2Y12 PRU 43(L) 194 - 418 PRU 12/15/2024 2:57 PM EDT [facility] Blood Venous blood specimen / Unknown Venipuncture / Unknown 12/15/2024 1:53 PM EDT 12/15/2024 1:55 PM EDT Narrative [facility] - 12/15/2024 2:57 PM EDT P2Y12 [...] to the clinician. Testing performed in the [facility] for Special Coagulation. Raymond Nuñez MD LAB BLOOD ORDERABLES Final Result Performing Organization Address City/[facility]/ZIP Co de Phone Number [facility] [address] [place] [address] * (ABNORMAL) APTT (12/15/2024 1:53 PM EDT) [facility] aPTT 23(L) 25 - 35 sec LAB COAGULATION METHOD 12/15/2024 3:12 PM EDT [facility] Blood Venous blood specimen / Unknown Venipuncture / Unknown 12/15/2024 1:53 PM EDT 12/15/2024 1:55 PM EDT Raymond Nuñez MD LAB BLOOD ORDERABLES Final Result Performing Organization Address City/[facility]/ZIP Co de Phone Number [facility] [address] [place] [address] * Protime-INR (12/15/2024 1:53 PM EDT) Only the most recent of2 resultswithin the time period is included. [facility] Prothrombin Time 14.0 12.0 - 14.3 sec LAB COAGULATION METHOD 12/15/2024 3:12 PM EDT [facility] INR 1.0 0.9 - 1.1 LAB COAGULATION METHOD 12/15/2024 3:12 PM EDT [facility] Blood Venous blood specimen / Unknown Venipuncture / Unknown 12/15/2024 1:53 PM EDT 12/15/2024 1:55 PM EDT Narrative [facility] - 12/15/2024 3:12 PM EDT OPTIMAL INR RANGES FOR PATIENT ON ORAL ANTICOAGULANT THERAPY Prevention of venous thromboembolism INR 2.0 to 3.0 In patients with heart disease: Atrial fibrillation INR 2.0 to 3.0 Valvular heart disease INR 2.0 to 3.0 Tissue heart valves INR 2.0 to 3.0 Mechanical prosthetic valves INR 2.5 to 3.5 Prevention of recurrent SD INR 2.5 to 3.5 us Raymond Nuñez MD LAB BLOOD ORDERABLES Final Result [facility] [address] [place] [address] * (ABNORMAL) CBC and differential (12/15/2024 1:53 PM EDT) Only the most recent of3 resultswithin the time period is included. WBC Count 8.41 3.70 - 10.30 10*3/uL LAB HEMATOLOGY METHOD 12/15/2024 5:32 PM EDT [facility] RBC Count 3.88(L) 3.90 - 5.20 10*6/uL LAB HEMATOLOGY METHOD 12/15/2024 5:32 PM EDT [facility] HGB 10.8(L) 11.2 - 15.7 g/dL LAB HEMATOLOGY METHOD 12/15/2024 5:32 PM EDT [facility] HCT 34.6 34.0 - 45.0 % LAB HEMATOLOGY METHOD 12/15/2024 5:32 PM EDT [facility] Platelet Count 303 155 - 369 10*3/uL LAB HEMATOLOGY METHOD 12/15/2024 5:32 PM EDT [facility] MCV 89 79 - 98 fL LAB HEMATOLOGY METHOD 12/15/2024 5:32 PM EDT [facility] MCH 27.8 26.0 - 32.0 pg LAB HEMATOLOGY METHOD 12/15/2024 5:32 PM EDT [facility] MCHC 31.2 30.7 - 35.5 g/dL LAB HEMATOLOGY METHOD 12/15/2024 5:32 PM EDT [facility] RDW 13.8 11.5 - 14.5 % LAB HEMATOLOGY METHOD 12/15/2024 5:32 PM EDT [facility] MPV 10.1 8.8 - 12.5 fL LAB HEMATOLOGY METHOD 12/15/2024 5:32 PM EDT [facility] nRBC 0.0 <=0.0 per 100 WBCs LAB HEMATOLOGY METHOD 12/15/2024 5:32 PM EDT [facility] Differential Type Manual LAB HEMATOLOGY METHOD 12/15/2024 5:32 PM EDT [facility] Blood Venous blood specimen / Unknown Venipuncture / Unknown 12/15/2024 1:53 PM EDT 12/15/2024 1:55 PM EDT Narrative [facility] - 12/15/2024 5:32 PM EDT Therapeutic [...] Immature Granulocytes is no longer being reported. Raymond Nuñez MD LAB BLOOD ORDERABLES Final Result [facility] [address] [place] [address] * (ABNORMAL) Prealbumin (12/15/2024 1:53 PM EDT) Prealbumin, Plasma 19.1(L) 20.0 - 41.0 mg/dL 12/15/2024 3:05 PM EDT [facility] Blood Venous blood specimen / Unknown Venipuncture / Unknown 12/15/2024 1:53 PM EDT 12/15/2024 1:55 PM EDT Raymond Nuñez MD LAB BLOOD ORDERABLES Final Result [facility] [address] [place] [address] * (ABNORMAL) Comprehensive metabolic panel (12/15/2024 1:53 PM EDT) Only the most recent of3 resultswithin the time period is included. Pathologist [facility] Glucose, Plasma 97 74 - 99 mg/dL 12/15/2024 3:05 PM EDT [facility] BUN, Plasma 12 8 - 23 mg/dL 12/15/2024 3:05 PM EDT [facility] Creatinine, Plasma 0.90 0.60 - 1.10 mg/dL 12/15/2024 3:05 PM EDT [facility] BUN/Creatinine Ratio 13 12/15/2024 3:05 PM EDT [facility] Sodium, Plasma 142 136 - 145 mmol/L 12/15/2024 3:05 PM EDT [facility] Potassium, Plasma 3.9 3.6 - 4.9 mmol/L 12/15/2024 3:05 PM EDT [facility] Chloride, Plasma 108(H) 97 - 107 mmol/L 12/15/2024 3:05 PM EDT [facility] CO2, Plasma 26 22 - 29 mmol/L 12/15/2024 3:05 PM EDT [facility] Anion Gap 8 6 - 16 mmol/L 12/15/2024 3:05 PM EDT [facility] Total Calcium, Plasma 9.5 8.9 - 10.2 mg/dL 12/15/2024 3:05 PM EDT [facility] Total Protein 7.3 6.3 - 7.9 g/dL 12/15/2024 3:05 PM EDT [facility] Albumin, Plasma 4.4 3.5 - 5.2 g/dL 12/15/2024 3:05 PM EDT [facility] AST, Plasma 18 10 - 35 U/L 12/15/2024 3:05 PM EDT [facility] ALT, Plasma 18 10 - 35 U/L 12/15/2024 3:05 PM EDT [facility] Alkaline Phosphatase, Plasma 125 46 - 142 U/L 12/15/2024 3:05 PM EDT [facility] Total Bilirubin, Plasma 0.4 0.2 - 1.1 mg/dL 12/15/2024 3:05 PM EDT [facility] eGFRcr 70.7 mL/min/1.7 3m*2 12/15/2024 3:05 PM EDT [facility] Comment:Reported eGFRcr in m L/min/1.73m2 is based the CKD-EPI 2020 equation that does not use a race coefficient. Blood Venous blood specimen / Unknown Venipuncture / Unknown 12/15/2024 1:53 PM EDT 12/15/2024 1:55 PM EDT us Raymond Nuñez MD LAB BLOOD ORDERABLES Final Result [facility] [address] [place] [address] * VAS US Carotid Duplex Bilateral (12/15/2024 [...] FORBES CV VASCULAR PROCEDURES Evelyn l Result * CT Head wo IV Contrast (12/13/2024 10:45 AM EDT) Only the most recent of4 [...] error, please notify the sender immediately at [phone] and permanently delete the original report and destroy any copies or printouts. Narrative 12/14/2024 7:08 AM EDT [facility] Outpatient NAME: [place] Mata DATE OF EXAM: 12/13/2024 Patient No: [id number] Physician: Dieter^Jacquie Date of : 1960 Past Medical/Surgical History [...] midline shift, herniation, or hydrocephalus. 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 Miranda FORBES IMG CT PROCEDURES Final Resul t * OCT, Retina - OU - Both Eyes (12/01/2024 11:22 AM EDT) Anatomical Region Laterality Modality Head Optical Coherenc e Tomography Narrative 12/01/2024 11:22 AM EDT Right Eye Quality was good. Findings include normal observations. Left Eye Quality was good. Findings include normal observations. Navya Woody MD OPHTH TOMOGRAPHY Final Resul [...] nasal GCL loss OS temp GCL loss Navya Woody MD OPH TOMOGRAPHY Final Resul t * Automated Visual Field, Extended - OU - Both Eyes (12/01/2024 11:17 AM EDT) Anatomical Region Laterality Modality Head Visual Field Narrative 12/01/2024 11:17 AM EDT OU unable to do us Navya Woody MD OPH VISUAL FIELD Final Res ult * CT [...] of4 resultswithin the time period is included. [facility] POCT Glucose 135(H) 74 - 99 [...] Comment 11/11/2024 10:51 PM EDT [facility] Employment Consultant ID Zackery Cohen 11/12/19 10:51 PM EDT [facility] Device ID [id number] 11/11/2024 10:51 PM EDT [facility] Specimen Type POC Capillary 11/11/2024 10:51 PM EDT [facility] Blood Capillary blood specimen / Unknown 11/11/2024 10:50 PM EDT 11/11/2024 10:51 PM EDT Katharine Savage MD LAB POINT OF CARE TE ST DOCKED DEVICE UNSOLICITED RESULTS Final Result Performing Organization Address City/State/[facility] Co de Phone Number [facility] [address] [place] [address] * (ABNORMAL) Wound Culture and Gram Stain (11/04/2024 11:57 AM EDT) [facility] CULTURE READING WOUND Light Growth 11/07/2024 12:50 PM EDT [facility] CULTURE READING WOUND 1+ Methicillin-Resista nt Staphylococcus aureus(AA) GERMÁN 11/07/2024 12:50 PM EDT [facility] Comment: The organism value for this result has been updated. These results have been appended to the previously preliminary verified report. Edited result: Previously reported as Staphylococcus aureus on 11/05/2024 at 0710 EDT. Staphylococcus aureus has been updated to reportable. CULTURE READING WOUND 1+ Staphylococcus epidermidis(A) GERMÁN 11/07/2024 12:50 PM EDT [facility] Comment: This isolate has been identified using the FDA Approved CiRBA CA System The organism value for this result has been updated. These results have been appended to the previously preliminary verified report. Gram Stain Result Few Polymorphonuclear leukocytes(A) 11/07/2024 12:50 PM EDT [facility] Gram Stain Result Few Gram positive cocci in clusters(A) 11/07/2024 12:50 PM EDT [facility] Swab Skin structure / Unknown [...] GENERAL ORDERABLES Final Result Performing Organization Address City/State/[facility] Co de Phone Number [facility] [address] [place] [address] * AL CRITICAL CARE, E/M 30-74 MINUTES (11/04/2024 7:05 [...] Aggressive pulmonary toilet. On goal tube feeds. 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 SERVICES CASE WORKER evaluated and cleared for diet but PO [...] LAB HEMATOLOGY METHOD 11/04/2024 12:26 AM EDT [facility] RBC Count 2.89(L) 3.90 - 5.20 10*6/uL LAB HEMATOLOGY METHOD 11/04/2024 12:26 AM EDT [facility] HGB 7.9(L) 11.2 - 15.7 g/dL LAB HEMATOLOGY METHOD 11/04/2024 12:26 AM EDT [facility] HCT 25.5(L) 34.0 - 45.0 % LAB HEMATOLOGY METHOD 11/04/2024 12:26 AM EDT [facility] Platelet Count 229 155 - 369 10*3/uL LAB HEMATOLOGY METHOD 11/04/2024 12:26 AM EDT [facility] MCV 88 79 - 98 fL LAB HEMATOLOGY METHOD 11/04/2024 12:26 AM EDT [facility] MCH 27.3 26.0 - 32.0 pg LAB HEMATOLOGY METHOD 11/04/2024 12:26 AM EDT [facility] MCHC 31.0 30.7 - 35.5 g/dL LAB HEMATOLOGY METHOD 11/04/2024 12:26 AM EDT [facility] RDW 13.6 11.5 - 14.5 % LAB HEMATOLOGY METHOD 11/04/2024 12:26 AM EDT [facility] MPV 10.8 8.8 - 12.5 fL LAB HEMATOLOGY METHOD 11/04/2024 12:26 AM EDT [facility] nRBC 0.0 <=0.0 per 100 WBCs LAB HEMATOLOGY METHOD 11/04/2024 12:26 AM EDT [facility] Blood Venous blood specimen / Unknown Venipuncture / Unknown 11/04/2024 12:07 AM EDT 11/04/2024 12:18 AM EDT Manisha Maxwell PA LAB BLOOD ORDERABLES Final R esult [facility] [address] [place] [address] * Phosphorus (11/04/2024 12:07 AM EDT) Only the most recent of7 resultswithin the time period is included. Phosphorus, Plasma 3.6 2.5 - 4.5 mg/dL 11/04/2024 12:48 AM EDT [facility] Blood Venous blood specimen / Unknown Venipuncture / Unknown 11/04/2024 12:07 AM EDT 11/04/2024 12:16 AM EDT us Manisha Maxwell PA LAB BLOOD ORDERABLES Final R esult [facility] [address] [place] [address] * Magnesium (11/04/2024 12:07 AM EDT) Only the most recent of7 resultswithin the time period is included. Magnesium, Plasma 2.2 1.9 - 2.4 mg/dL 11/04/2024 12:48 AM EDT [facility] Blood Venous blood specimen / Unknown Venipuncture / Unknown 11/04/2024 12:07 AM EDT 11/04/2024 12:16 AM EDT us Manisha FORBES LAB BLOOD ORDERABLES Final R esult [facility] [address] [place] [address] * (ABNORMAL) Basic metabolic panel (11/04/2024 12:07 AM EDT) Only the most recent of5 resultswithin the time period is included. Glucose, Plasma 114(H) 74 - 99 mg/dL 11/04/2024 12:48 AM EDT [facility] BUN, Plasma 21 8 - 23 mg/dL 11/04/2024 12:48 AM EDT [facility] Creatinine, Plasma 0.73 0.60 - 1.10 mg/dL 11/04/2024 12:48 AM EDT [facility] BUN/Creatinine Ratio 29 11/04/2024 12:48 AM EDT [facility] Sodium, Plasma 143 136 - 145 mmol/L 11/04/2024 12:48 AM EDT [facility] Potassium, Plasma 3.9 3.6 - 4.9 mmol/L 11/04/2024 12:48 AM EDT [facility] Chloride, Plasma 108(H) 97 - 107 mmol/L 11/04/2024 12:48 AM EDT [facility] CO2, Plasma 27 22 - 29 mmol/L 11/04/2024 12:48 AM EDT [facility] Anion Gap 8 6 - 16 mmol/L 11/04/2024 12:48 AM EDT [facility] Total Calcium, Plasma 7.9(L) 8.9 - 10.2 mg/dL 11/04/2024 12:48 AM EDT [facility] eGFRcr 90.8 mL/min/1.7 3m*2 11/04/2024 12:48 AM EDT [facility] Comment:Reported eGFRcr in m L/min/1.73m2 is based the CKD-EPI 2020 equation that does not use a race coefficient. Blood Venous blood specimen / Unknown Venipuncture / Unknown 11/04/2024 12:07 AM EDT 11/04/2024 12:16 AM EDT us Manisha FORBES LAB BLOOD ORDERABLES Final R esult [facility] [address] [place] [address] * XR Foot Right 3+ Views (11/03/2024 [...] Zurdo Hsieh MD on 11/03/2024 12:50 PM Manisha FORBES IMG XR PROCEDURES Final Resu lt * AL CRITICAL CARE, E/M 30-74 MINUTES (11/03/2024 11:16 [...] IMG XR PROCEDURES Final Re sult * FL Modified Barium Swallow (11/02/2024 3:21 [...] MD IMG FLUOROSCOPY PROCEDURES Final Result * AL CRITICAL CARE, E/M 30-74 MINUTES (11/02/2024 10:25 [...] October 30, 2024. Face CT scan from [facility] from October 29, 2024 FINDINGS: Diagnostic [...] October 30, 2024. Face CT scan from [facility] from October 29, 2024 FINDINGS: Diagnostic [...] of3 resultswithin the time period is included. [facility] pH, Arterial 7.38 7.31 - 7.42 11/01/2024 6:42 PM EDT [facility] pCO2, Arterial 46 35 - 48 mm Hg 11/01/2024 6:42 PM [facility] pO2, Arterial 72(L) >80 mm Hg 11/01/2024 6:42 PM [facility] SO2, Arterial 97 94 - 98 % 11/01/2024 6:42 PM T [facility] FIO2 50.0 % 11/01/2024 6:42 PM [facility] Base Excess, Arterial 1.7 -2 - 3 mmol/L 11/01/2024 6:42 PM [facility] HCO3, Arterial 27.2(H) 22 - 26 mmol/L 11/01/2024 6:42 PM [facility] Total Hemoglobin, Arterial, Whole Blood 8.9(L) 11.2 - 15.7 g/dL 11/01/2024 6:42 PM [facility] Hematocrit, Arterial 27.0(L) 34.0 - 45.0 % 11/01/2024 6:42 PM [facility] Sodium, Arterial 141 136 - 145 mmol/L 11/01/2024 6:42 PM [facility] Potassium, Arterial 4.6 3.6 - 4.9 mmol/L 11/01/2024 6:42 PM [facility] Chloride, Whole Blood 109(H) 97 - 107 mmol/L 11/01/2024 6:42 PM [facility] Glucose, Arterial 122(H) 74 - 99 mg/dL 11/01/2024 6:42 PM [facility] Ionized Calcium, Arterial 5.2(H) 4.6 - 5.1 mg/dL 11/01/2024 6:42 PM [facility] Lactate, Arterial 0.8 0.5 - 1.6 mmol/L 11/01/2024 6:42 PM [facility] Body Temperature 37.5 Celsius 11/01/2024 6:42 PM [facility] pH, Temp Corrected, Arterial 7.37 7.31 - 7.42 11/01/2024 6:42 PM [facility] pCO2, Temp Corrected, Arterial 47 35 - 48 mm Hg 11/01/2024 6:42 PM EDT [facility] pO2, Temp Corrected, Arterial 74(L) >80 mm Hg 11/01/2024 6:42 PM EDT [facility] Employment Consultant ID Edwin Sommers 11/01/2024 6:42 PM EDT [facility] Blood, Arterial Whole blood specimen / Unknown 11/01/2024 6:41 PM EDT 11/01/2024 6:42 PM EDT Micheal Espinoza MD LAB POINT OF CARE TEST DOCKED DEVICE UNSOLICITED RESULTS Final Result Performing Organization Address City/State/[facility] Co de Phone Number [facility] [address] [place] [address] * AL AN ELECTIVE ENDOTRACHEAL AIRWAY, PB ANESTHESIA PLACEHOLDER (11/01/2024 2:10 PM EDT) Narrative Masha Jurado CRNA - 11/01/2024 2:10 PM EDT Masha Jurado CRNA 11/01/2024 2:30 PM Airway Date/Time: 11/01/2024 2:10 PM Reason: elective Airway not difficult General Information and Staff Patient location during procedure: OR Performed: RBOY Patient Condition Indications for airway management: anesthesia [...] IMG XR PROCEDURES Final Re sult * AL CRITICAL CARE, E/M 30-74 MINUTES (11/01/2024 7:22 [...] of3 resultswithin the time period is included. Ionized Calcium, Whole Blood 4.6 4.6 - 5.1 mg/dL LAB HEMATOLOGY METHOD 11/01/2024 12:01 AM EDT [facility] Blood Venous blood specimen / Unknown Venipuncture / Unknown 10/31/2024 11:49 PM EDT 10/31/2024 11:59 PM EDT us Erica Castillo APRN LAB BLOOD ORDERABLES Final Result [facility] [address] [place] [address] * Multi Drug Resistance Test (10/31/2024 5:30 PM EDT) Only the most recent of2 resultswithin the time period is included. Culture No growth at day 1 11/01/2024 8:21 PM EDT [facility] Swab (Nares and Marley Rectal) 10/31/2024 5:30 PM EDT 10/31/2024 6:42 PM EDT Narrative [facility] - 11/01/2024 8:21 PM EDT This test was developed and its performance characteristics determined by the [facility]. Although the media is FDA-approved, it is not FDA-approved for all specimen types submitted. The FDA has determined that such clearance or approval is not necessary. This test is used for surveillance purposes. It should not be regarded as investigational or for research. The [facility] is certified under the Clinical Laboratory Improvement Amendments of 1988 (CLIA-88) as qualified to perform high complexity clinical laboratory testing. us Benito Waggoner MD LAB MICROBIOLOGY - GEN ERAL ORDERABLES Final Result [facility] [address] [place] [address] * AL CRITICAL CARE, E/M 30-74 MINUTES (10/31/2024 10:48 [...] 82 <150 mg/dL 10/31/2024 7:42 AM EDT [facility] Comment: Triglyceride Reference Range (age >17 years): Desirable: <150 mg/dL Borderline high: 150 to 199 mg/dL High: 200 to 499 mg/dL Very high: >499 mg/dL Increased risk of pancreatitis: >1000 mg/dL Fasting greater than or equal to 12 hours? No 10/31/2024 7:42 AM EDT [facility] Blood Venous blood specimen / Unknown Venipuncture / Unknown 10/31/2024 6:56 AM EDT 10/31/2024 7:09 AM EDT us Katharine Savage MD LAB BLOOD ORDERABLES Final Resul t [facility] [address] [place] [address] * (ABNORMAL) Blood gas, arterial (10/30/2024 11:11 PM EDT) Only the most recent of2 resultswithin the time period is included. pH, Arterial 7.41 7.31 - 7.42 LAB HEMATOLOGY METHOD 10/30/2024 11:19 PM EDT [facility] pCO2, Arterial 38 35 - 48 mmHg LAB HEMATOLOGY METHOD 10/30/2024 11:19 PM EDT [facility] pO2, Arterial 192 >80 mmHg LAB HEMATOLOGY METHOD 10/30/2024 11:19 PM EDT [facility] SO2, Measured, Arterial 100(H) 94 - 98 % LAB HEMATOLOGY METHOD 10/30/2024 11:19 PM EDT [facility] Base Excess, Arterial -0.2 -2.0 - 3.0 mmol/L LAB HEMATOLOGY METHOD 10/30/2024 11:19 PM EDT [facility] Bicarbonate, Calculated, Arterial 24 22 - 26 mmol/L LAB HEMATOLOGY METHOD 10/30/2024 11:19 PM EDT [facility] Hematocrit, Whole Blood 27.5(L) 34.0 - 45.0 % LAB HEMATOLOGY METHOD 10/30/2024 11:19 PM EDT [facility] Sodium, Whole Blood 140 136 - 145 mmol/L LAB HEMATOLOGY METHOD 10/30/2024 11:19 PM EDT [facility] Potassium, Whole Blood 4.0 3.6 - 4.9 mmol/L LAB HEMATOLOGY METHOD 10/30/2024 11:19 PM EDT [facility] Chloride, Whole Blood 110(H) 97 - 107 mmol/L LAB HEMATOLOGY METHOD 10/30/2024 11:19 PM EDT [facility] Glucose, Whole Blood 138(H) 74 - 99 mg/dL LAB HEMATOLOGY METHOD 10/30/2024 11:19 PM EDT [facility] Ionized Calcium, Whole Blood 4.4(L) 4.6 - 5.1 mg/dL LAB HEMATOLOGY METHOD 10/30/2024 11:19 PM EDT [facility] Lactate, Arterial, Whole Blood 1.5 0.5 - 1.6 mmol/L LAB HEMATOLOGY METHOD 10/30/2024 11:19 PM EDT [facility] Blood Arterial blood specimen / Unknown Arterial Puncture / Unknown 10/30/2024 11:11 PM EDT 10/30/2024 11:17 PM EDT us Isabelle Soto MD LAB BLOOD ORDERABLES Evelyn richardson Result [facility] [address] [place] [address] * AL INSERT NON-TUNNEL CV CATH, HC INSERT NON-TUNNEL [...] were discussed: yes Alternatives discussed: No treatment [place] protocol: Imaging studies available: yes Site/side marked: [...] Castillo APRN LAB URINE ORDERABLES Final Result [facility] [address] [place] [address] * (ABNORMAL) Urinalysis with reflex microscopic (Culture NOT Included) (10/30/2024 2:11 PM EDT) Color, Urine Dark Yellow LAB URINALYSIS - AUTOMATED METHOD 10/30/2024 2:36 PM EDT [facility] Clarity, Urine Cloudy LAB URINALYSIS - AUTOMATED METHOD 10/30/2024 2:36 PM EDT [facility] Spec [place], Urine >1.030(H) 1.005 - 1.030 LAB URINALYSIS - AUTOMATED METHOD 10/30/2024 2:36 PM EDT [facility] pH, Urine 5.5 5.0 - 8.0 LAB URINALYSIS - AUTOMATED METHOD 10/30/2024 2:36 PM EDT [facility] Protein, Urine 100(A) Negative mg/dL LAB URINALYSIS - AUTOMATED METHOD 10/30/2024 2:36 PM EDT [facility] Glucose, Urine Negative Negative mg/dL LAB URINALYSIS - AUTOMATED METHOD 10/30/2024 2:36 PM EDT [facility] Ketones, Urine Trace(A) Negative mg/dL LAB URINALYSIS - AUTOMATED METHOD 10/30/2024 2:36 PM EDT [facility] Blood, Urine Large(A) Negative LAB URINALYSIS - AUTOMATED METHOD 10/30/2024 2:36 PM EDT [facility] Bilirubin, Urine Negative Negative LAB URINALYSIS - AUTOMATED METHOD 10/30/2024 2:36 PM EDT [facility] Urobilinogen, Urine 1.0 0.2 to 1.0 mg/dL LAB URINALYSIS - AUTOMATED METHOD 10/30/2024 2:36 PM EDT [facility] Leukocytes, Urine Trace(A) Negative LAB URINALYSIS - AUTOMATED METHOD 10/30/2024 2:36 PM EDT [facility] Nitrite, Urine Negative Negative LAB URINALYSIS - AUTOMATED METHOD 10/30/2024 2:36 PM EDT [facility] RBC, Urine >50(A) 0 to 3 /HPF LAB URINALYSIS - AUTOMATED METHOD 10/30/2024 2:36 PM EDT [facility] WBC, Urine 6 - 10(A) 0 to 5 /HPF LAB URINALYSIS - AUTOMATED METHOD 10/30/2024 2:36 PM EDT [facility] Squamous Epithelial Cells 0 - 2 0 to 5 /HPF LAB URINALYSIS - AUTOMATED METHOD 10/30/2024 2:36 PM EDT [facility] Hyaline Casts 0 - 2 0 to 5 /LPF LAB URINALYSIS - AUTOMATED METHOD 10/30/2024 2:36 PM EDT [facility] Bacteria, Urine Negative Negative LAB URINALYSIS - AUTOMATED METHOD 10/30/2024 2:36 PM EDT [facility] Urine Urine specimen from urinary conduit / Unknown Non-blood Collection / Unknown 10/30/2024 2:11 PM EDT 10/30/2024 2:16 PM EDT Erica Castillo APRN LAB URINE ORDERABLES Final Result Performing Organization Address [facility] Co wi Phone Number [facility] [address] [place] [address] * (ABNORMAL) Troponin T, High Sensitivity, 2 Hour, Plasma (10/30/2024 1:24 PM EDT) [facility] Troponin T, High Sensitivity, 2 Hour 418(H) <14 ng/L 10/30/2024 1:56 PM EDT [facility] Troponin Delta Interpretation Not Calculated 10/30/2024 1:56 PM EDT [facility] Comment:Specimen not collect ed within acceptable timeframe. Delta will not be calculated. Blood Arterial blood specimen / Unknown Arterial Puncture / Unknown 10/30/2024 1:24 PM EDT 10/30/2024 1:28 PM EDT Erica Castillo APRN LAB BLOOD ORDERABLES Final Result Performing Organization Address [facility] Phone Number [facility] [address] [place] [address] * ECG Adult (10/30/2024 11:39 AM EDT) EKG DIAGNOSIS CLASS Abnormal MUSE ECG Ventricular Rate 85 BPM MUSE ECG Atrial Rate 85 BPM MUSE ECG AL Interval 146 ms MUSE ECG QRSD Interval 84 ms MUSE ECG QT Interval 394 ms MUSE ECG QTC Interval 468 ms MUSE ECG P [place] 82 degrees MUSE ECG R [place] 51 degrees MUSE ECG T Wave [place] 184 degrees MUSE ECG Diagnosis Poor [...] MUSE ECG Diagnosis Confirmed by Tristan Cooper ([id number]) on 10/30/2024 12:08:55 PM MUSE ECG 10/30/2024 11:3 9 AM EDT 10/30/2024 12:08 PM EDT Erica Castillo PROP AND EFFECTS DESIGNER ECG ORDERABLES Final Resu lt MUSE ECG * (ABNORMAL) Troponin T, High Sensitivity, 0 Hour Plasma, Reflex to 2 Hour (10/30/2024 11:25 AM EDT) Pathologist [facility] [place] Troponin T, High Sensitivity, 0 Hour 179(H) <14 ng/L 10/30/2024 12:01 PM EDT [facility] Blood Arterial blood specimen / Unknown Arterial Puncture / Unknown 10/30/2024 11:25 AM EDT 10/30/2024 11:32 AM EDT Erica Castillo AMY LAB BLOOD ORDERABLES Final Result Performing Organization Address City/[facility]/ZIP Co de Phone Number [facility] [address] [place] [address] * Light Blue Top (10/30/2024 11:20 AM EDT) Pathologist [facility] [place] Extra Hold for add-ons 10/30/2024 2:02 PM EDT [facility] Comment:Auto resulted. Blood Venous blood specimen / Unknown 10/30/2024 11:20 AM EDT 10/30/2024 11:35 AM EDT Katharine Savage MD LAB BLOOD ORDERABLES Final Resul t Performing Organization Address City/[facility]/ZIP Co de Phone Number [facility] [address] [place] [address] * Transfusion Reaction, Pathologist Interpretation (10/30/2024 10:04 AM EDT) Pathologist [facility] [place] Clinical Diagnosis, Transfusion Reaction Trauma 10/31/2024 12:41 [...] ORDERA BLES Final Result Performing Organization Address City/State/[facility] Co de Phone Number BLOOD BANK [address] [place] [address], * (ABNORMAL) TEG Global Hemostasis with Lysis (10/30/2024 10:04 AM EDT) R, Lysis 3.3(L) 4.6 - 9.1 min 10/30/2024 11:23 AM EDT [facility] MA, Rapid, Lysis 69.0 52.0 - 70.0 mm 10/30/2024 11:23 AM EDT [facility] MA, Fibrinogen, Lysis 28.0 15.0 - 32.0 mm 10/30/2024 11:23 AM EDT [facility] LY30 0.1 0.0 - 2.6 % 10/30/2024 11:23 AM EDT [facility] Blood Arterial blood specimen / Unknown Arterial Puncture / Unknown 10/30/2024 10:04 AM EDT 10/30/2024 10:17 AM EDT Erica Castillo APRN LAB BLOOD ORDERABLES Final Result [facility] [address] [place] [address] * Transfusion Reaction Investigation (10/30/2024 10:04 AM [...] Comment:2 LEUKOREDUCED PLATE LETS GIVEN- [id number]; [id number] Donor Unit Culture Not Indicated 10/30/2024 9:10 [...] ORDERA BLES Final Result BLOOD BANK [address] [place] [address], * AL CRITICAL CARE, ADDL 30 MIN, AL CRITICAL CARE, ADDL 30 MIN (10/30/2024 9:49 [...] BLOOD TRANSFUSION ORDERABL ES Final Result * AL INSERT CATH,ART,PERCUT,SHORTTERM, HC INSERT CATH,ART,PERCUT,SHORTTERM (10/30/2024 9:11 AM EDT) Narrative Isabelle Soto MD - 10/30/2024 9:11 AM EDT Isabelle Soto MD 11/02/2024 10:22 AM Arterial line Performed by: Erica Castillo APRN Authorized by: Erica Castillo APRN Consent: Consent obtained: Written Consent given by: son. Risks discussed: Bleeding and infection [place] protocol: Imaging studies available: yes Site/side marked: [...] Units (10/30/2024 7:15 AM EDT) Product Code [id number] BLOO D BANK Dispense Status Transfused BLOOD BANK Blood Expiration Date [id number] BLOOD BANK Unit Number [id number] CH B LOOD BANK Product Blood Type 7300 BLOOD BANK Blood Type B+ BLOOD BANK Product Code [id number] BLOO D BANK Dispense Status Transfused BLOOD BANK Blood Expiration Date [id number] BLOOD BANK Unit Number [id number] CH B LOOD BANK Product Blood Type 6200 BLOOD BANK Blood Type A+ BLOOD BANK Blood Venous blood specimen / Unknown Erica Castillo APRN BLOOD BANK PRODUCT ORDERAB LES Final Result BLOOD BANK [address] [place] [address], * (ABNORMAL) Lactate, venous (10/30/2024 6:45 AM EDT) [facility] Lactate, Venous, Whole Blood 2.8(H) 0.5 - 2.2 mmol/L LAB HEMATOLOGY METHOD 10/30/2024 6:58 AM EDT [facility] Blood Venous blood specimen / Unknown Venipuncture / Unknown 10/30/2024 6:45 AM EDT 10/30/2024 6:57 AM EDT [facility] LAB BLOOD ORDERABLES Final Res ult Performing Organization Address [facility] Co de Phone Number [facility] [address] [place] [address] * Melissa auris Surveillance by PCR (10/30/2024 4:47 AM EDT) [facility] Melissa auris PCR Result Not Detected Not Detected 10/31/2024 4:57 AM EDT [facility] Swab (Axilla and Groin) Non-blood Collection / Unknown 10/30/2024 4:47 AM EDT 10/30/2024 4:59 AM EDT Narrative [facility] - 10/31/2024 4:57 AM EDT This PCR assay was developed and its performance characteristics determined by [facility] as appropriate for clinical purposes. This assay has not been cleared or approved by the FDA, but is performed in a CLIA regulated laboratory that is qualified to perform high-complexity testing. [facility] FOR[facility] LAB MICROBIOLOGY - GENERAL ORD ERABLES Final Result Performing Organization Address City/[facility]/[place] [address] * Type and Screen (10/30/2024 2:43 AM EDT) [facility] ABO/Rh O Positive 10/30/2024 4:18 AM EDT BLOOD BANK Comment:DOWNTIME RESULT ENTR Y : [id number] Antibody Screen Negative 10/30/2024 4:18 AM EDT BLOOD BANK Comment:DOWNTIME RESULT ENTR Y: [id number] Specimen Expiration 11/02/2024 23:59 10/30/2024 4:18 AM EDT BLOOD BANK Blood Venous blood specimen / Unknown Venipuncture / Unknown 10/30/2024 2:43 AM EDT 10/30/2024 4:35 AM EDT Katharine Savage MD LAB BLOOD BANK TEST ORDERABLES E dited Result - Final Performing Organization Address City/[facility]/ZIP Co de Phone Number BLOOD BANK [address] [place] [address], * Gold Top (10/30/2024 2:40 AM EDT) Only the most recent of2 resultswithin the time period is included. Extra Hold for add-ons 10/30/2024 6:02 AM EDT [facility] Comment:Auto resulted. Blood Venous blood specimen / Unknown 10/30/2024 2:40 AM EDT 10/30/2024 3:32 AM EDT Aroldo Simms MD LAB BLOOD ORDERABLES Final Result Performing Organization Address City/[facility]/ZIP Co de Phone Number [facility] [address] [place] [address] * Alcohol Profile Plasma (10/30/2024 2:40 AM EDT) Methanol Plasma <10 <10 mg/dL 7:04 AM EDT [facility] Acetone Plasma <10 <10 mg/dL 10/30/2024 7:04 AM EDT [facility] Isopropanol Plasma <10 <10 mg/dL 10/30/2024 7:04 AM EDT [facility] Ethanol Plasma <10 <10 mg/dL 10/30/2024 7:04 AM EDT [facility] Blood Venous blood specimen / Unknown Venipuncture / Unknown 10/30/2024 2:40 AM EDT 10/30/2024 3:22 AM EDT Narrative [facility] - 10/30/2024 7:04 AM EDT Test performed by Gas Chromatography at the [facility]. This test was developed and its performance characteristics determined by [facility]. It has not been cleared or approved by the FDA.The laboratory is regulated under CLIA as qualified to perform high-complexity testing. This test is used for clinical purposes only. Katharine Savage MD LAB BLOOD ORDERABLES Final Resul t [facility] [address] [place] [address] * XR Pelvis 1 or 2 Views [...] Leandro Escobar MD on 10/30/2024 3:19 AM Aroldo Simms MD IMG XR PROCEDURES Fin al Result * (ABNORMAL) Blood gas, venous (10/30/2024 2:40 AM EDT) pH, Venous 7.31(L) 7.32 - 7.43 LAB HEMATOLOGY METHOD 10/30/2024 3:18 AM EDT [facility] pCO2, Venous 53(H) 37 - 52 mmHg LAB HEMATOLOGY METHOD 10/30/2024 3:18 AM EDT [facility] pO2, Venous 33 25 - 40 mmHg LAB HEMATOLOGY METHOD 10/30/2024 3:18 AM EDT [facility] SO2, Measured, Venous 51(L) 65 - 80 % LAB HEMATOLOGY METHOD 10/30/2024 3:18 AM EDT [facility] Base Excess, Venous -0.4 -2.0 - 3.0 mmol/L LAB HEMATOLOGY METHOD 10/30/2024 3:18 AM EDT [facility] Bicarbonate, Calculated, Venous 27(H) 22 - 26 mmol/L LAB HEMATOLOGY METHOD 10/30/2024 3:18 AM EDT [facility] Hematocrit, Whole Blood 37.6 34.0 - 45.0 % LAB HEMATOLOGY METHOD 10/30/2024 3:18 AM EDT [facility] Sodium, Whole Blood 140 136 - 145 mmol/L LAB HEMATOLOGY METHOD 10/30/2024 3:18 AM EDT [facility] Potassium, Whole Blood 4.2 3.6 - 4.9 mmol/L LAB HEMATOLOGY METHOD 10/30/2024 3:18 AM EDT [facility] Chloride, Whole Blood 103 97 - 107 mmol/L LAB HEMATOLOGY METHOD 10/30/2024 3:18 AM EDT [facility] Glucose, Whole Blood 125(H) 74 - 99 mg/dL LAB HEMATOLOGY METHOD 10/30/2024 3:18 AM EDT [facility] Lactate, Venous, Whole Blood 3.3(H) 0.5 - 2.2 mmol/L LAB HEMATOLOGY METHOD 10/30/2024 3:18 AM EDT [facility] Ionized Calcium, Whole Blood 4.7 4.6 - 5.1 mg/dL LAB HEMATOLOGY METHOD 10/30/2024 3:18 AM EDT [facility] Blood Venous blood specimen / Unknown Venipuncture / Unknown 10/30/2024 2:40 AM EDT 10/30/2024 3:11 AM EDT us Katharine Savage MD LAB BLOOD ORDERABLES Final Resul t [facility] [address] [place] [address] * XR OUTSIDE IMAGES (10/30/2024 1:15 AM [...] 4:08 PM EDT 05/22/2023 4:08 PM EDT Ana Paula Adhikari PROP AND EFFECTS DESIGNER LAB BLOOD ORDERABLES Evelyn l Result Performing Organization Address City/[facility] Co de Phone Number [facility] [address] [place] [address] * (ABNORMAL) Hemoglobin A1c (05/22/2023 4:08 PM [...] Adults <6.0% Children and Adolescents <7.5% Source: [place] [employer]. Standards of medical care in diabetes,2017. Diabetes Care.2017:40 (suppl 1):S1-S135. HbA1c assay performed by an ion-exchange chromatography method that is certified traceable to the DCCT. 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 [address] [place] [address] PCP - General Family Medicine 06/18/21
--- OUTSIDE RECORDS SUMMARY | 2024-12-19 12:45 | XMS_ITS | Encounter Summary ---
Author Organization [facility] Address [address] [place] [address] Care Team Providers Care Crib Attendant Name Role Phone Aman Hernandez MD Primary Care Provider Encounter Details Date Type Department Care Team (Late st Contact Info) Description 10/29/2024 Orders Only External Location [address] [place] [address] Provider, External Social History Tobacco Use Types [...] (including now)? Patient unable to answer 10/31/2024 [facility] Utilities Answer Date Recorded In the [...] Description 12/20/2024 2:00 PM EDT Pre-Admission Testing [facility] [address], [address]st [place] [address] 12/27/2024 7:30 AM EST Appointment [facility] Interventional Radiology [address] [place] [address] 12/30/2024 1:00 PM EST Office Visit [facility] Otolaryngology [address], 3rd [place] [address] Yobani Benoit MD [address] [facility] [address] [place] [address] 02/02/2025 9:00 AM EST Appointment [facility] Radiology [address] [place] [address] 05/24/2025 2:30 PM EDT Office Visit [facility] [address] [place] [address] Navya Woody MD [address] [facility] [address] [place] [address] 06/07/2025 2:00 PM EDT Consult [facility] [address], [address] [place] [address] Haseeb Dias MD [address] [facility] [address] [place] [address] documented as of this encounter Procedures Procedure [...] documented as of this encounter Care Teams Crib Attendant Relationship Specialty Start Date End Date Aman Hernandez MD [address] [phone] PCP - General Family Medicine 06/18/21 documented as of this encounter
--- OUTSIDE RECORDS SUMMARY | 2024-12-19 12:45 | XMS_ITS | Encounter Summary ---
Author Organization Healthcare Address [address] [place] [address] Care Team Providers Care Utility Service Worker Name Role Phone Aman Hernandez MD Primary Care Provider Encounter Details Date Type Department Care Team (Late st Contact Info) Description 10/30/2024 Ophth Exam [facility] [address] [place] [address] Shannon Mack MD [address] [place] [address] Social History Tobacco Use Types [...] (including now)? Patient unable to answer 10/31/2024 [facility] Utilities Answer Date Recorded In the past 12 months has th e [employer], gas, oil, or water company threatened to [...] Description 12/20/2024 2:00 PM EDT Pre-Admission Testing [facility] [address], 1st [place] [address] 12/27/2024 7:30 AM EST Appointment [facility] Interventional Radiology [address] [place] [address] 12/30/2024 1:00 PM EST Office Visit [facility] Otolaryngology [address], 3rd [place] [address] Yobani Benoit MD [address] [place] [address] 02/02/2025 9:00 AM EST Appointment [facility] [address] [place] [address] 05/24/2025 2:30 PM EDT Office Visit [facility] [address] [place] [address] Navya Woody MD [address] [place] [address] 06/07/2025 2:00 PM EDT Consult [facility] [address], [address] [place] [address] Haseeb Dias MD [address] [place] [address] documented as of this encounter [...] documented as of this encounter Care Teams Utility Service Worker Relationship Specialty Start Date End Date Aman Hernandez MD [address] [place] [address] PCP - General Family Medicine 06/18/21 documented as of this encounter
--- OUTSIDE RECORDS SUMMARY | 2024-12-19 12:45 | XMS_ITS | Clinical Summary ---
Author Organization [facility] Address [address] [place] [address] Care Team Providers Care Swiss Machinist Name Role Phone Reanna Perdomo Naila MONIQUE Primary Care Provider [phone] Source Comments This information has been disclosed [...] therelease of HIV test results or diagnoses. [id number] Allergies Active Allergy Reactions Criticality Noted [...] Insurance [employer] P[employer] MEDICARE Care Teams Swiss Machinist Relationship Specialty Start Date End Date Reanna Perdomo APN [address] [facility] [address] [place] [address] PCP - General Family Medicine 09/02/18
--- OUTSIDE RECORDS SUMMARY | 2024-12-19 12:45 | XMS_ITS | Encounter Summary ---
Author Organization Healthcare Address [address] [place] [address] Care Team Providers Care Extruding Press Adjuster Name Role Phone Aman Hernandez MD Primary [...] any time in the past 12 m [facility], were you homeless or living in a assisted (including now)? Patient unable to answer 10/31/2024 [facility] Utilities Answer Date Recorded In the [...] Testing [facility] [address], 1st [place] [address] 12/27/2024 7:30 AM EST Appointment [facility] Interventional Radiology [address] [place] [address] 12/30/2024 1:00 PM EST Office Visit [facility] Otolaryngology [address], 3rd [place] [address] Yobani Benoit MD [address] [place] [address] 02/02/2025 9:00 AM EST Appointment [facility] [address] [place] [address] 05/24/2025 2:30 PM EDT Office Visit [facility] [address] [place] [address] Navya Woody MD [address] [place] [address] 06/07/2025 2:00 PM EDT Consult [facility] [address], 1st [place] [address] Haseeb Dias MD [address] [place] [address] documented as of this encounter Visit Diagnoses [...] documented as of this encounter Care Teams Extruding Press Adjuster Relationship Specialty Start Date End Date Aman Hernandez MD [address] [address] PCP - General Family Medicine 06/18/21 documented as of this encounter
--- OUTSIDE RECORDS SUMMARY | 2024-12-19 12:46 | XMS_ITS | Encounter Summary ---
Author Organization [facility] Address [address] [place] [address] Care Team Providers Care Systems Test Technician Name Role Phone Aman Hernandez MD Primary Care Provider Encounter Details Date Type Department Care Team (Late st Contact Info) Description 10/29/2024 Orders Only External Location [address] [place] [address] Provider, External Social History Tobacco Use Types [...] in the past 12 m [facility], were you homeless or living in a long term (including now)? Patient unable to answer 10/31/2024 [facility] Utilities Answer Date Recorded In the past [...] Testing [facility] [address], [address]st [place] [address] 12/27/2024 7:30 AM EST Appointment [facility] Interventional Radiology [address] [place] [address] 12/30/2024 1:00 PM EST Office Visit [facility] Otolaryngology [address], 3rd [place] [address] Yobani Benoit MD [address] [facility] [address] [place] [address] 02/02/2025 9:00 AM EST Appointment [facility] [address] [place] [address] 05/24/2025 2:30 PM EDT Office Visit [facility] [address] [facility] [place] [address] Navya Woody MD [address] [facility] [address] [place] [address] 06/07/2025 2:00 PM EDT Consult [facility] [address], 1st [place] [address] Haseeb Dias MD [address] [facility] [address] [place] [address] documented as of this encounter Procedures Procedure [...] documented as of this encounter Care Teams Systems Test Technician Relationship Specialty Start Date End Date Aman Hernadnez MD [address] [phone] PCP - General Family Medicine 06/18/21 documented as of this encounter
--- OUTSIDE RECORDS SUMMARY | 2024-12-19 12:46 | XMS_ITS | Encounter Summary ---
Author Organization [facility] Address [address] [place] [address] Care Team Providers Care Mining Machinery Assembler Name Role Phone Aman Hernandez MD Primary Care Provider Encounter Details Date Type Department Care Team (Late st Contact Info) Description 10/29/2024 Orders Only External Location [address] [place] [address] Provider, External Social History Tobacco Use Types [...] any time in the past 12 m [facility], were you homeless or living in a alf (including now)? Patient unable to answer 10/31/2024 [facility] Utilities Answer Date Recorded In the [...] Description 12/20/2024 2:00 PM EDT Pre-Admission Testing [facility] Pre-op Clinic [address], 1st [place] [address] 12/27/2024 7:30 AM EST Appointment [facility] Interventional Radiology [address] [place] [address] 12/30/2024 1:00 PM EST Office Visit [facility] Otolaryngology [address], 3rd [place] [address] Yobani Benoit MD [address] [facility] [address] [place] [address] 02/02/2025 9:00 AM EST Appointment [facility] Radiology [address] [place] [address] 05/24/2025 2:30 PM EDT Office Visit [facility] [address] [place] [address] Navya Woody MD [address] [facility] [address] [place] [address] 06/07/2025 2:00 PM EDT Consult [facility] [address], [address] [place] [address] Haseeb Dias MD [address] [facility] [address] [place] [address] documented as of this encounter Procedures Procedure [...] documented as of this encounter Care Teams Mining Machinery Assembler Relationship Specialty Start Date End Date Aman Hernandez MD [address] [phone] PCP - General Family Medicine 06/18/21 documented as of this encounter
--- NOTE | 2024-12-19 12:47 | ECG_ITS ---
APPROVED REPORT Exam: Resting ECG HR:91 bpm ECG Measurements Heart Rate 91 AXES WA 138 P 53 QRSd 85 QRS 74 QT 372 T 29 QTc 421 Conclusion SINUS RHYTHM NONSPECIFIC ST & T-WAVE ABNORMALITY BORDERLINE ECG UNCONFIRMED REPORT Electronically signed by : ANDREW CABELLO, 12/20/2024 06:27:10
--- OUTSIDE RECORDS SUMMARY | 2024-12-19 12:47 | XMS_ITS | Encounter Summary ---
[facility] Address [address] [place] [address] Care Team Providers Care Toy Department Manager Name Role Phone Yonny Scott MD Primary Care Provider + [phone] Encounter Details Date Type Department Care Team (Late st Contact Info) Description 12/06/2024 Telephone [facility] NEUROLOGY [address] [facility] [address] [place] [address] Julissa Kenney, PRODUCTION POTTER [address] [facility] [address] [address] Social History Tobacco Use Types Packs/Day Years Used Date Smoking Tobacco: Former Cigarettes 0.3 50 Passive Smoke Exposure: Past Smokeless Tobacco: Never Alcohol Use Standard Drinks/Week Comments Not Currently 19 (1 standard drink = 0.6 oz pu re alcohol) [facility] Utilities Answer Date Recorded In the past 12 months has [employer], oil, or water [employer] threatened to shut off services in your [...] GED or equivalent No 07/20/2024 Preferred Language Israeli 07/20/2024 PHQ-2 Answer Date Recorded Patient Health [...] on filedocumented in this encounter Care Teams Toy Department Manager Relationship Specialty Start Date End Date Yonny Scott MD [facility] [address] [address] PCP - General Adolescent Medicine 07/19/24 documented as of this encounter
--- OUTSIDE RECORDS SUMMARY | 2024-12-19 12:47 | XMS_ITS | Encounter Summary ---
Author Organization [facility] Address [address] [place] [address] Care Team Providers Care Building Construction Supervisor Name Role Phone Aman Hernandez MD Primary Care Provider Encounter Details Date Type Department Care Team (Late st Contact Info) Description 10/29/2024 Orders Only External Location [address] [place] [address] Provider, External Social History Tobacco Use Types [...] any time in the past 12 m [facility], were you homeless or living in a chcf (including now)? Patient unable to answer 10/31/2024 [facility] Utilities Answer Date Recorded In [...] 12/20/2024 2:00 PM EDT Pre-Admission Testing [facility] Pre-op Clinic [address], 1st [place] [address] 12/27/2024 7:30 AM EST Appointment [facility] Interventional Radiology [address] [place] [address] 12/30/2024 1:00 PM EST Office Visit [facility] Otolaryngology [address], 3rd [place] [address] Yobani Benoit MD [address] [facility] [address] [place] [address] 02/02/2025 9:00 AM EST Appointment [facility] Radiology [address] [place] [address] 05/24/2025 2:30 PM EDT Office Visit [facility] Advanced Eye Care [address] [facility] [place] [address] Navya Woody MD [address] [facility] [address] [place] [address] 06/07/2025 2:00 PM EDT Consult [facility] [address], [address] [place] [address] Haseeb Dias MD [address] [facility] [address] [place] [address] documented as of this encounter Procedures Procedure [...] documented as of this encounter Care Teams Building Construction Supervisor Relationship Specialty Start Date End Date Aman Hernandez MD [address] [place] [address] PCP - General Family Medicine 06/18/21 documented as of this encounter
--- OUTSIDE RECORDS SUMMARY | 2024-12-19 12:47 | XMS_ITS | Encounter Summary ---
Author Organization [facility] Address [address] [place] [address] Care Team Providers Care Typewriter Operator Automatic Name Role Phone Aman Hernandez MD Primary Care Provider Encounter Details Date Type Department Care Team (Late st Contact Info) Description 10/29/2024 Orders Only External Location [address] [place] [address] Provider, External Social History Tobacco Use Types [...] time in the past [address] [facility], were you homeless or living in a correction (including now)? Patient unable to answer 10/31/[address] [facility] Utilities Answer Date Recorded In the [...] Description 12/20/2024 2:00 PM EDT Pre-Admission Testing [facility] Pre-op Clinic [address], [address] [place] [address] 12/27/2024 7:30 AM EST Appointment [facility] Interventional Radiology [address] [place] [address] 12/30/2024 1:00 PM EST Office Visit [facility] Otolaryngology [address], 3rd [place] [address] Yobani Benoit MD [address] [facility] [address] [place] [address] 02/02/2025 9:00 AM EST Appointment [facility] Radiology [address] [place] [address] 05/24/2025 2:30 PM EDT Office Visit [facility] Advanced Eye Care [address] [facility] [place] [address] Navya Woody MD [address] [facility] [address] [place] [address] 06/07/2025 2:00 PM EDT Consult [facility] [address], [address] [place] [address] Haseeb Disa MD [address] [facility] [address] [place] [address] documented as of this encounter Procedures Procedure Name Priority Date/Time Associated Diagnosis Comments CT NEURO OUTSIDE IMAGES 10/29/2024 11:25 PM EDT documented in this encounter Results * CT NEURO OUTSIDE IMAGES (10/29/2024 11:25 PM EDT) Anatomical Region Laterality Modality Computed Tomogra phy 10/29/2024 11:2 5 PM EDT us External Provider IMG CT [...] documented as of this encounter Care Teams Typewriter Operator Automatic Relationship Specialty Start Date End Date Aman Hernandez MD [address] [phone] PCP - General Family Medicine 06/18/21 documented as of this encounter
--- OUTSIDE RECORDS SUMMARY | 2024-12-19 12:47 | XMS_ITS | Encounter Summary ---
Author Organization [facility] Address [address] [place] [address] Care Team Providers Care Photographer Model Name Role Phone Aman Hernandez MD Primary Care Provider Encounter Details Date Type Department Care Team (Late st Contact Info) Description 10/29/2024 Orders Only External Location [address] [place] [address] Provider, External Social History Tobacco Use Types [...] any time in the past 12 m [facility], were you homeless or living in a jail (including now)? Patient unable to answer 10/31/2024 [...] [facility] [address], [address] [place] [address] 12/27/2024 7:30 AM EST Appointment [facility] Interventional Radiology [address] [place] [address] 12/30/2024 1:00 PM EST Office Visit [facility] Otolaryngology [address]rd [place] [address] Yobani Benoit MD [address] [facility] [address] [place] [address] 02/02/2025 9:00 AM EST Appointment [facility] Radiology [address] [place] [address] 05/24/2025 2:30 PM EDT Office Visit [facility] [address] [facility] [place] [address] Navya Woody MD [address] [facility] [address] [place] [address] 06/07/2025 2:00 PM EDT Consult [facility] [address], [address] [place] [address] Haseeb Dias MD [address] [facility] [address] [place] [address] documented as of this encounter Procedures Procedure [...] documented as of this encounter Care Teams Photographer Model Relationship Specialty Start Date End Date Aman Hernandez MD [address] [place] [phone] PCP - General Family Medicine 06/18/21 documented as of this encounter
--- OUTSIDE RECORDS SUMMARY | 2024-12-19 12:47 | XMS_ITS | Encounter Summary ---
Author Organization [facility] Address [address] [place] [address] Care Team Providers Care Fence Erector Name Role Phone Aman Hernandez MD Primary Care Provider Encounter Details Date Type Department Care Team (Late st Contact Info) Description 10/29/2024 Orders Only External Location [address] [place] [address] Provider, External Social History Tobacco Use Types [...] any time in the past 12 m [facility], were you homeless or living in a [place] [facility] facility (including now)? Patient unable to answer 10/31/2024 [facility] Utilities Answer Date Recorded In [...] Testing [facility] [address], [address] [place] [address] 12/27/2024 7:30 AM EST Appointment [facility] Interventional Radiology [address] [place] [address] 12/30/2024 1:00 PM EST Office Visit [facility] Otolaryngology [address] 3[address] [place] [address] Yobani Benoit MD [address] [facility] [address] [place] [address] 02/02/2025 9:00 AM EST Appointment [facility] Radiology [address] [place] [address] 05/24/2025 2:30 PM EDT Office Visit [facility] [address] [facility] [place] [address] Navya Woody MD [address] [facility] [address] [place] [address] 06/07/2025 2:00 PM EDT Consult [facility] [address], [address] [place] [address] Haseeb Dias MD [address] [facility] [address] [place] [address] documented as of this encounter Procedures Procedure [...] documented as of this encounter Care Teams Fence Erector Relationship Specialty Start Date End Date Aman Hernandez MD [address] [place] [address] PCP - General Family Medicine 06/18/21 documented as of this encounter
--- OUTSIDE RECORDS SUMMARY | 2024-12-19 12:47 | XMS_ITS | Encounter Summary ---
Author Organization [facility] Address [address] [place] [address] Care Team Providers Care Med Care Manager Name Role Phone Aman Hernandez MD Primary Care Provider Encounter Details Date Type Department Care Team (Late st Contact Info) Description 10/29/2024 Orders Only External Location [address] [place] [address] Provider, External Social History Tobacco Use Types [...] answer 10/31/2024 Housing Stability Vital Sign Answer Lucaino e Recorded In the last 12 months, was t here a time when you were not able to pay the mortgage or rent on time? Patient unable to answer 10/31/2024 Number of Times Moved in the Last Year Not on fi le 10/31/2024 At any time in the past 12 m [facility], were you homeless or living in a long-term (including now)? Patient unable to answer 10/31/2024 [facility] Utilities Answer Date Recorded In the past [...] Description 12/20/2024 2:00 PM EDT Pre-Admission Testing [facility] Pre-op Clinic [address] [place] [address] 12/27/2024 7:30 AM EST Appointment [facility] Interventional Radiology [address] [place] [address] 12/30/2024 1:00 PM EST Office Visit [facility] Otolaryngology [address] [place] [address] Yobani Benoit MD [address] [facility] [address] [place] [address] 02/02/2025 9:00 AM EST Appointment [facility] Radiology [address] [place] [address] 05/24/2025 2:30 PM EDT Office Visit [facility] [address] [facility] [place] [address] Navya Woody MD [address] [facility] [address] [place] [address] 06/07/2025 2:00 PM EDT Consult [facility] [address], [address] [place] [address] Haseeb Dias MD [address] [facility] [address] [place] [address] documented as of this encounter Procedures Procedure [...] documented as of this encounter Care Teams Med Care Manager Relationship Specialty Start Date End Date Aman Hernandez MD [address] [place] [address] PCP - General Family Medicine 06/18/21 documented as of this encounter
--- OUTSIDE RECORDS SUMMARY | 2024-12-19 12:48 | XMS_ITS | Encounter Summary ---
Author Organization [facility] Address [address] [place] [address] Care Team Providers Care Wader Boot Top Assembler Name Role Phone Yonny Scott MD Primary Care Provider + [phone] Encounter Details Date Type Department Care Team (Late st Contact Info) Description 12/06/2024 Telephone [facility] NEUROLOGY [address] [facility] [address] [place] [address] Julissa Kenney, CEMENT RUBBER [address] [facility] [address] [address] Social History Tobacco Use Types Packs/Day Years Used Date Smoking Tobacco: Former Cigarettes 0.3 50 Passive Smoke Exposure: Past Smokeless Tobacco: Never Alcohol Use Standard Drinks/Week Comments Not Currently 19 (1 standard drink = 0.6 oz pu re alcohol) [facility] Utilities Answer Date Recorded In the past 12 months has [employer], oil, or water [employer] threatened to shut off services in your [...] GED or equivalent No 07/20/2024 Preferred Language Grenadian 07/20/2024 PHQ-2 Answer Date Recorded Patient Health [...] on filedocumented in this encounter Care Teams Wader Boot Top Assembler Relationship Specialty Start Date End Date Yonny Scott MD [facility] [address] [address] PCP - General Adolescent Medicine 07/19/24 documented as of this encounter
--- NOTE | 2024-12-19 12:49 | CT_ITS ---
FINAL REPORT TECHNIQUE: Axial images were obtained of the cervical spine by computed tomography. Coronal and sagittal reconstruction process performed. This study was performed with techniques to keep radiation doses as low as reasonably achievable (ALARA). Individualized dose reduction techniques using automated exposure control or adjustment of mA and/or kV according to the patient''s size were employed. CLINICAL HISTORY: fall COMPARISON: 10/29/2024 FINDINGS: Cervical vertebrae show normal height. Moderate disc space narrowing C3-4, C4-5, C5-6, and C6-7. There is no malalignment. There is posterior osteophyte formation in the midline and eccentric to the right at C4-5 and C5-6. Bilateral neural foraminal narrowing is noted at C4-5, C5-6, and C6-7 and on the right at C3-4. There are dense vascular calcifications of the carotid bifurcations. Left internal carotid artery stent is present. IMPRESSION: No acute bony abnormality. No significant change in chronic/degenerative changes. Reviewed, Interpreted and Dictated by Partha Rome MD Transcribed by Zabrina Jackson Authenticated and [facility]
--- NOTE | 2024-12-19 12:49 | CT_ITS ---
FINAL REPORT TECHNIQUE: multiple axial CT images were performed from the foramen magnum to the vertex without enhancement. CLINICAL HISTORY: fall COMPARISON: 10/29/2024 FINDINGS: There is mild atrophy. Marked ventriculomegaly is noted. There is patchy decreased attenuation in the deep white matter. Encephalomalacia in the left occipital lobe is noted. There is ex vacuo dilatation of the left lateral ventricle. 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 The previously noted hematoma along the septum pellucidum has resolved. There is no evidence of acute hemorrhage. No masses are identified. No extra-axial fluid is seen. There is extensive mucoperiosteal thickening of the right maxillary sinus. Postsurgical changes from repair of the right maxillary sinus are noted. IMPRESSION: No acute intracranial abnormality. Extensive changes of chronic right maxillary sinusitis. 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 Extensive changes of chronic microvascular ischemia. Reviewed, Interpreted and Dictated by Partha Rome MD Transcribed by Zabrina Jackson Authenticated and [facility]
--- NOTE | 2024-12-19 12:51 | CT_ITS ---
FINAL REPORT TECHNIQUE: Axial images through the pelvis were performed by computed tomography. Sagittal and coronal reconstruction images were performed. This study was performed with techniques to keep radiation doses as low as reasonably achievable (ALARA). Individualized dose reduction techniques using automated exposure control or adjustment of mA and/or kV according to the patient's size were employed. CLINICAL HISTORY: fall, right hip pain COMPARISON: None FINDINGS: There is streak artifact from right hip prosthesis. No acute fracture is identified. No dislocation identified. There are advanced changes of degenerative disc disease in the lower lumbar spine. Hypertrophic changes of the right iliac crest may be due to prior bone graft harvest site. No soft tissue abnormality. IMPRESSION: No acute bony abnormality. Reviewed, Interpreted and Dictated by Partha Rome MD Transcribed by Zabrina Jackson Authenticated and [facility]
--- NOTE | 2024-12-19 13:02 | PC.NURSE ---
PT TO CT
--- NOTE | 2024-12-19 13:08 | ED_ITS ---
<Statement entered by Delfino Tyson MD - 12/19/24 20:27> I was consulted by the ALKA, and we discussed the complexity of the problems being addressed. I approve the treatment and management plan for this patient's care in the emergency department, thus performing a substantive portion of the medical decision making. Delfino Tyson MD Discharge Plan Disposition Patient Disposition: Home, Self-Care Prescriptions Prescriptions: No Action pramipexole 1 mg tablet 1 mg PO TIDP PRN (Reason: Restless Leg(S)) Qty: 90 1RF atorvastatin 40 mg Tablet 40 mg PO HS 30 Days Qty: 30 0RF clopidogrel 75 mg Tablet 75 mg PO DAILY 20 Days Qty: 20 0RF levothyroxine [Synthroid] 50 mcg Tablet 50 mcg PO DAILYDM 30 Days Qty: 30 0RF lisinopril 10 mg Tablet 10 mg PO DAILY 30 Days Qty: 30 0RF aspirin 81 mg Tablet,Delayed Release (Dr/Ec) 81 mg PO DAILY 30 Days Qty: 30 0RF Referrals Follow up/Referrals: Reanna Perdomo APRN [Primary Care Provider, Medical] - See instructions Activity Restrictions/Add. Instructions Additional Instructions/Restrictions: half-way to make changes to avoid falls for patient. May use bed alarms. I talked to family about possibly requesting these if this is possible. Clinical Impressions Clinical Impression: Acute pain of right hip, At risk for falls Instructions Patient Instructions: DI for Chronic Pain in Adults, DI for Acute Pain in Adults Print Language Print Language: Ukrainian Discharge ED Provider: Delfino Tyson General Adult HPI <Meaghan Farrar (ED), AMY - Last Filed: 12/19/24 16:56> General Chief complaint: PAIN Stated complaint: AO-12/19/24- fall, Pain in R hip Time Seen by Provider: 12/19/24 12:42 Mode of Arrival: Wheelchair Source of Information: Patient and Relative Description of Symptoms (Recalled from ER Triage Doc. by RN): PT has had a history of falls over the last 6 months. Pt fell around a week ago and hurt her right hip. Pt fell at around 2000 last night and again hurt her right hip. Pt is on multiple blood thinners for stroke protocol according to family. History of Present Illness HPI narrative: 64-year-old female presents to the ED after falling on her right hip last night around 1999. This was the second fall that she has had recently. The first fall she spent some time in on a vent. She is now in rehab at [facility] and wheelchair-bound. Patient does complain of right hip pain. Related Data Previous Rx's ?Medication ?Instructions ?Recorded aspirin 81 mg tablet,delayed 81 mg PO DAILY 30 days #3 0 tabs 12/01/22 release pramipexole 1 mg tablet 1 mg PO TIDP PRN Restless Le g(S) 05/27/24 #90 tabs atorvastatin 40 mg tablet 40 mg PO HS 30 days #30 tabs 06/22/24 clopidogrel 75 mg tablet 75 mg PO DAILY 20 days #20 t abs 06/22/24 levothyroxine 50 mcg tablet 50 mcg PO DAILYDM 30 days #30 tabs 06/22/24 (Synthroid) lisinopril 10 mg tablet 10 mg PO DAILY 30 days #30 t abs 06/22/24 Allergies Allergy/AdvReac Type Severity Reaction Status Date / Time Cephalosporins Allergy Unknown Unknown Verified 12/28/23 11:12 allergy reaction Penicillins Allergy Unknown Unknown Verified 12/28/23 11:12 allergy reaction Sutures Allergy Unknown Verified 12/28/23 11:12 allergy reaction PFSH <Meaghan Farrar (ED), CORE FITTER - Last Filed: 12/19/24 16:56> [facility] Disclaimer: The information contained in this section may have been updated after the patient was seen, as this information can be updated by other users. Medical History Cardiomyopathy History of CVA (cerebrovascular accident) Incontinence Renal artery stenosis Smoker Insomnia Acquired hypothyroidism IFG (impaired fasting glucose) Left leg paresthesias Abnormal head CT MARTINA (obstructive sleep apnea) History of paresthesia RLS (restless legs syndrome) Essential hypertension Carotid artery stenosis Left carotid bruit Cardiac murmur Restless sleeper Family history of early CAD Claudication Dyspnea Edema Ex-smoker Abnormal EKG HLD (hyperlipidemia) HTN (hypertension) Surgical History History of carpal tunnel surgery Hx of tonsillectomy Hx of tubal ligation Hx of cholecystectomy History of thoracotomy History of right hip replacement Family History Mother Hypertension Diabetes Other Hyperlipidemia Social History Smoking Status: Never smoker years smoked: 51 quit status: not considering quitting second hand exposure: No alcohol intake: current substance use type: denies use current occupational status: disabled Travel in the last 8 weeks?: None household members: other housing: house caffeine: Yes Have you lived/traveled outside [place] in past 30 days?: No Contact w/someone who lives/traveled outside US past 30 days?: No Exposure to someone with infectious disease in past 14 days?: No Do you have a fever (greater than 100.4 F or 38 C)?: No Have you tested positive for COVID-19?: No Exposed to someone with COVID-19 in past 14 days?: No Do you have a sore throat?: No Do you have a cough?: No Do you have any weakness?: No Do you have any diarrhea?: No Are you experiencing any unusual bleeding?: No Do you have any muscle aches/pain?: No Do you have any abdominal pain?: No Are you experiencing loss of taste or smell?: No Other Medical History Have you received the Flu Vaccine for this season: No Have you received the Pneumonia Vaccine: No <Meaghan Farrar (ED), CORE FITTER - Last Filed: 12/19/24 16:56> ROS Obtained: Yes Systems reviewed as appropriate & no additional complaints except as documented Constitutional Constitutional: Reports as per HPI Physical Exam <Meaghan Farrar (ED), CORE FITTER - Last Filed: 12/19/24 16:56> General General appearance: alert and in no apparent distress Head Head exam: normocephalic Eye Eye exam: Present PERRL and EOMI ENT ENT exam: Present normal oropharynx and mucous membranes moist Neck Neck exam: Present full ROM and trachea midline Respiratory Respiratory exam: Present normal lung sounds bilaterally Cardiovascular Cardiovascular exam: Present regular rate, normal rhythm, normal heart sounds, +S1 and +S2 Abdominal Exam Abdominal exam: Present soft and normal bowel sounds Extremities Exam Extremities exam: Present full ROM and normal capillary refill Neurological Exam Neurological exam: Present alert and oriented X3 Skin Skin exam: Present warm and dry Medical Decision Making <Meaghan Farrar (ED), CORE FITTER - Last Filed: 12/19/24 16:56> Medical Records Screening: Per USPSTF and CDC recommendations, given the prevalence of disease in our region, it is our hospital?s policy to screen for HIV and viral Hepatitis for all patients aged 18 and over and those with ongoing risk factors. Hardeep Inquiry Pt receiving controlled substance: No Hardeep was queried for this patient: No Vital Signs: 12/19/24 12:20 12/19/24 12:44 12/19/24 13:29 Temperature 98.0 F Temperature Source Temporal Artery Scan Pulse Rate 93 H 94 H Pulse Rate [Right] 65 Respiratory Rate 21 Blood Pressure 115/69 139/52 L Blood Pressure [Right Arm] 114/56 L Blood Pressure Mean Blood Pressure Mean [Right Arm] 75 Blood Pressure Source [Right Arm] Automatic Cuff Blood Pressure Position [Right Arm] Sitting 02 Sat by Pulse Oximetry 94 L 98 96 Oxygen Delivery Method Room Air 12/19/24 14:53 12/19/24 15:00 12/19/24 15:30 Temperature Temperature Source Pulse Rate 82 81 83 Pulse Rate [Right] Respiratory Rate Blood Pressure 149/59 H 154/72 H 165/63 H Blood Pressure [Right Arm] Blood Pressure Mean 85 Blood Pressure Mean [Right Arm] Blood Pressure Source [Right Arm] Blood Pressure Position [Right Arm] 02 Sat by Pulse Oximetry 99 97 91 L Oxygen Delivery Method 12/19/24 16:01 12/19/24 16:31 Temperature Temperature Source Pulse Rate 98 H 98 H Pulse Rate [Right] Respiratory Rate Blood Pressure 146/88 H 204/96 H Blood Pressure [Right Arm] Blood Pressure Mean 96 132 Blood Pressure Mean [Right Arm] Blood Pressure Source [Right Arm] Blood Pressure Position [Right Arm] 02 Sat by Pulse Oximetry 96 95 Oxygen Delivery Method Lab Data Lab Results 12/19/24 12:31: POC Glucose 138 H 12/19/24 13:10: SARS-CoV-2 (PCR) Not detected, Influenza A Untype (PCR) Not detected, Influenza Type B (PCR) Not detected 12/19/24 13:15: WBC 12.4 H, RBC 3.60 L, Hgb 9.8 L, Hct 32.4 L, MCV 90.0, MCH 27.2, MCHC 30.2 L, RDW 13.5, Plt Count 289, MPV 9.9, Neut % (Auto) 78.8, Lymph % (Auto) 15.0, Bath % (Auto) 5.5, Eos % (Auto) 0.1, Baso % (Auto) 0.2, Neut # (Auto) 9.8 H, Lymph # (Auto) 1.9, Bath # (Auto) 0.7, Eos # (Auto) 0.0, Baso # (Auto) 0.0, PT 11.4, INR 1.03, APTT 21.9 L, Sodium 135 L, Potassium 3.9, Chloride 102, Carbon Dioxide 28, Anion Gap 8.9, BUN 13, Creatinine 1.10 H, Estimated Creat Clear 45, Estimated GFR 50 L, Est GFR ( Amer) 60, Glucose 116 H, Calcium 8.9, Magnesium 1.9, Total Bilirubin 0.5, AST 25, ALT 20, Alkaline Phosphatase 131 H, Troponin I < 0.01, Total Protein 7.0, Albumin 3.2 L, Globulin 3.8 H, Albumin/Globulin Ratio 0.8 L, Lipase 42 12/19/24 16:16: Urine Color Yellow, Urine Appearance Clear, Urine pH 5.5, Ur Specific Wyatt 1.025, Urine Protein Negative, Urine Glucose (UA) Negative, Urine Ketones Trace, Urine Blood Negative, Urine Nitrate Negative, Urine Bilirubin 1+ A, Urine Urobilinogen 1.0, Ur Leukocyte Esterase Negative, Urine RBC None, Urine WBC Occasional, Ur Squamous Epith Cells Occasional, Urine Bacteria Trace 12/19/24 13:15 12/19/24 13:15 Orders (Tests/Meds): ED MEDICATIONS Discontinued Medications Generic Name Dose Route Start Last Admin Trade Name Aashish PRN Reason Stop Dose Admin Acetaminophen 1,000 mg 12/19/24 12:52 12/19/24 13:29 Acetaminophen 1,000mg/100ml Vial IV 12/19/24 12:53 1,000 mg ONCE ONE Administration Sodium Chloride 1,000 mls @ 999 mls/hr 12/19/24 14:39 12/19/24 16:46 Sod Chlor 0.9% 1000ml Bag IV 12/19/24 15:39 Infused .Q1H1M ONE Infusion Morphine Sulfate 4 mg 12/19/24 13:06 12/19/24 13:29 Morphine 4mg/Ml Syringe IV 12/19/24 13:07 4 mg ONCE ONE Administration Ondansetron HCl 4 mg 12/19/24 13:06 12/19/24 13:28 Ondansetron 4mg/2ml Vial IV 12/19/24 13:07 4 mg ONCE ONE Administration Oxycodone HCl 5 mg 12/19/24 12:53 12/19/24 14:40 Oxycodone 5mg Immediate Release Tablet PO 12/19/24 12:54 Not Given ONCE ONE ORDERS Category Date Time Status CT bony pelvis Stat Cat Scan 12/19/24 12:[address] cervical spine wo con Stat Cat Scan 12/19/24 12:[address] head/brain wo con Stat Cat Scan 12/19/24 12:49 Completed CBC [Complete Blood Count Auto Diff] Stat Lab 12/19/24 13:15 Completed Comprehensive Metabolic Panel Stat Lab 12/19/24 13:15 Completed Lipase Stat Lab 12/19/24 13:15 Completed Magnesium Stat Lab 12/19/24 13:15 Completed POC Glucose,Bedside Routine Lab 12/19/24 12:31 Completed PT INR [Prothrombin Time INR] Stat Lab 12/19/24 13:15 Completed PTT [Activated Partial Thrombo Time] Stat Lab 12/19/24 13:15 Completed Rapid PCR Covid and Flu A/B Stat Lab 12/19/24 13:10 Completed Trop I [Troponin I] Stat Lab 12/19/24 13:15 Completed Troponin I Q3H Lab 12/19/24 16:00 Ordered Troponin I Q3H Lab 12/19/24 19:00 Ordered UA [Urinalysis and Microscopic] Stat Lab 12/19/24 16:16 Completed Medical Decision Narrative: patient is a 64-year-old female presenting to the emergency department for evaluation of right hip pain after a fall last night. Patient is hemodynamically stable and nontoxic-appearing upon arrival, afebrile. Differential diagnosis includes right hip fracture versus sprain or strain. Workup will be conducted with hematologic labs, specific imaging, provocative tests. Initial inventions include crystalloid bolus, analgesics, antibiotics. Initial workup reviewed by me hematologic labs are remarkable forWhite count is 12.4, creatinine 1.1, GFR is 50,. We are awaiting CT of head neck and pelvis to be read at this time. Patient is comfortable at this time. Nurse tried to In-N-Out catheter but had no urine. I will give her some fluids. We will try to In-N-Out cath to get a urine after that. This CT bony pelvis showed no acute bony abnormality. There is a right hip prosthesis with no acute fracture or dislocation. Patient's urine showed trace ketones occasional white cells with no leuks. Patient is ready to go home. She and I discussed falls. Patient will be [facility] to [facility] as she is [facility] for rehab. Patient is safe for discharge home. <Delfino Tyson MD - Last Filed: 12/19/24 13:14> Vital Signs: 12/19/24 12:20 12/19/24 12:44 12/19/24 13:29 Temperature 98.0 F Temperature Source Temporal Artery Scan Pulse Rate 93 H 94 H Pulse Rate [Right] 65 Respiratory Rate 21 Blood Pressure 115/69 139/52 L Blood Pressure [Right Arm] 114/56 L Blood Pressure Mean Blood Pressure Mean [Right Arm] 75 Blood Pressure Source [Right Arm] Automatic Cuff Blood Pressure Position [Right Arm] Sitting 02 Sat by Pulse Oximetry 94 L 98 96 Oxygen Delivery Method Room Air 12/19/24 14:53 12/19/24 15:00 12/19/24 15:30 Temperature Temperature Source Pulse Rate 82 81 83 Pulse Rate [Right] Respiratory Rate Blood Pressure 149/59 H 154/72 H 165/63 H Blood Pressure [Right Arm] Blood Pressure Mean 85 Blood Pressure Mean [Right Arm] Blood Pressure Source [Right Arm] Blood Pressure Position [Right Arm] 02 Sat by Pulse Oximetry 99 97 91 L Oxygen Delivery Method 12/19/24 16:01 12/19/24 16:31 Temperature Temperature Source Pulse Rate 98 H 98 H Pulse Rate [Right] Respiratory Rate Blood Pressure 146/88 H 204/96 H Blood Pressure [Right Arm] Blood Pressure Mean 96 132 Blood Pressure Mean [Right Arm] Blood Pressure Source [Right Arm] Blood Pressure Position [Right Arm] 02 Sat by Pulse Oximetry 96 95 Oxygen Delivery Method Lab Data Lab Results 12/19/24 12:31: POC Glucose 138 H 12/19/24 13:10: SARS-CoV-2 (PCR) Not detected, Influenza A Untype (PCR) Not detected, Influenza Type B (PCR) Not detected 12/19/24 13:15: WBC 12.4 H, RBC 3.60 L, Hgb 9.8 L, Hct 32.4 L, MCV 90.0, MCH 27.2, MCHC 30.2 L, RDW 13.5, Plt Count 289, MPV 9.9, Neut % (Auto) 78.8, Lymph % (Auto) 15.0, Bath % (Auto) 5.5, Eos % (Auto) 0.1, Baso % (Auto) 0.2, Neut # (Auto) 9.8 H, Lymph # (Auto) 1.9, Bath # (Auto) 0.7, Eos # (Auto) 0.0, Baso # (Auto) 0.0, PT 11.4, INR 1.03, APTT 21.9 L, Sodium 135 L, Potassium 3.9, Chloride 102, Carbon Dioxide 28, Anion Gap 8.9, BUN 13, Creatinine 1.10 H, Estimated Creat Clear 45, Estimated GFR 50 L, Est GFR ( Amer) 60, Glucose 116 H, Calcium 8.9, Magnesium 1.9, Total Bilirubin 0.5, AST 25, ALT 20, Alkaline Phosphatase 131 H, Troponin I < 0.01, Total Protein 7.0, Albumin 3.2 L, Globulin 3.8 H, Albumin/Globulin Ratio 0.8 L, Lipase 42 12/19/24 16:16: Urine Color Yellow, Urine Appearance Clear, Urine pH 5.5, Ur Specific Wyatt 1.025, Urine Protein Negative, Urine Glucose (UA) Negative, Urine Ketones Trace, Urine Blood Negative, Urine Nitrate Negative, Urine Bilirubin 1+ A, Urine Urobilinogen 1.0, Ur Leukocyte Esterase Negative, Urine RBC None, Urine WBC Occasional, Ur Squamous Epith Cells Occasional, Urine Bacteria Trace Orders (Tests/Meds): ED MEDICATIONS Discontinued Medications Generic Name Dose Route Start Last Admin Trade Name Freq PRN Reason Stop Dose Admin Acetaminophen 1,000 mg 12/19/24 12:52 12/19/24 13:29 Acetaminophen 1,000mg/100ml Vial IV 12/19/24 12:53 1,000 mg ONCE ONE Administration Sodium Chloride 1,000 mls @ 999 mls/hr 12/19/24 14:39 12/19/24 16:46 Sod Chlor 0.9% 1000ml Bag IV 12/19/24 15:39 Infused .Q1H1M ONE Infusion Morphine Sulfate 4 mg 12/19/24 13:06 12/19/24 13:29 Morphine 4mg/Ml Syringe IV 12/19/24 13:07 4 mg ONCE ONE Administration Ondansetron HCl 4 mg 12/19/24 13:06 12/19/24 13:28 Ondansetron 4mg/2ml Vial IV 12/19/24 13:07 4 mg ONCE ONE Administration Oxycodone HCl 5 mg 12/19/24 12:53 12/19/24 14:40 Oxycodone 5mg Immediate Release Tablet PO 12/19/24 12:54 Not Given ONCE ONE ORDERS Category Date Time Status CT bony pelvis Stat Cat Scan 12/19/24 12:[address] cervical spine wo con Stat Cat Scan 12/19/24 12:[address] head/brain wo con Stat Cat Scan 12/19/24 12:49 Completed CBC [Complete Blood Count Auto Diff] Stat Lab 12/19/24 13:15 Completed Comprehensive Metabolic Panel Stat Lab 12/19/24 13:15 Completed Lipase Stat Lab 12/19/24 13:15 Completed Magnesium Stat Lab 12/19/24 13:15 Completed POC Glucose,Bedside Routine Lab 12/19/24 12:31 Completed PT INR [Prothrombin Time INR] Stat Lab 12/19/24 13:15 Completed PTT [Activated Partial Thrombo Time] Stat Lab 12/19/24 13:15 Completed Rapid PCR Covid and Flu A/B Stat Lab 12/19/24 13:10 Completed Trop I [Troponin I] Stat Lab 12/19/24 13:15 Completed Troponin I Q3H Lab 12/19/24 16:00 Ordered Troponin I Q3H Lab 12/19/24 19:00 Ordered UA [Urinalysis and Microscopic] Stat Lab 12/19/24 16:16 Completed ECG Data Tracing #1: I reviewed this ECG and interpreted as documented below: NSR. No ST elevation or depression. QTc normal at 421 Critical Care <Meaghan Farrar (ED), CORE FITTER - Last Filed: 12/19/24 16:56> Critical Care Time Critical Care Time: No
[2024-12-19 13:16] LABS: Coronavirus 19, PCR Not Detected (NotDetected); Influenza A, PCR Not Detected (NotDetected); Influenza B, PCR Not Detected (NotDetected)
[2024-12-19] MEDS: ONDANSETRON 4MG/2ML VIAL 4 MG IV (13:28)
[2024-12-19 13:29] LABS: Hematocrit 32.4 % (37.0-47.0); Hemoglobin 9.8 g/dL (12.2-16.2); Immature Granulocytes % 0.4 %; Mean Corpuscular HGB Conc 30.2 g/dL (31.8-35.4); Mean Corpuscular Hemoglobin 27.2 pg (27.0-31.2); Mean Corpuscular Volume 90.0 fl (81-99); Nucleated Red Blood Cells % 0 %; Platelet Count 289 K/mm3 (142-424); Red Blood Count 3.60 M/mm3 (4.20-5.40); Red Cell Distribution Width-SD 44.6 fL; White Blood Count 12.4 K/mm3 (4.8-10.8)
[2024-12-19] MEDS: MORPHINE 4MG/ML SYRINGE 4 MG IV (13:29)
[2024-12-19] MEDS: ACETAMINOPHEN 1,000MG/100ML VIAL 1000 MG IV (13:29)
[2024-12-19 13:34] LABS: Albumin Level 3.2 g/dl (3.5-5.0); Chloride 102 mmol/L (98-107); Potassium 3.9 mmoL/L (3.5-5.1); Sodium 135 mmol/L (136-145)
[2024-12-19 13:36] LABS: Blood Urea Nitrogen 13 mg/dl (7-17); Creatinine Clearance Estimated 45 mL/min (50-200); Creatinine,Serum 1.10 mg/dl (0.52-1.04); Estimated Glomerular Filt Rate 50 ml/min (>60); GFR (African American) 60 ML/MIN (>60)
[2024-12-19 13:37] LABS: Alanine Aminotransferase 20 U/L (12-78); Albumin/Globulin Ratio 0.8 (1.1-1.8); Alkaline Phosphatase 131 U/L (38-126); Anion Gap 8.9 mEq/L (5-15); Aspartate Amino Transferase 25 U/L (14-36); Bilirubin,Total 0.5 mg/dl (0.2-1.3); Calcium 8.9 mg/dl (8.4-10.2); Carbon Dioxide 28 mmol/L (22.0-30.0); Globulin 3.8 g/dL (1.3-3.2); Glucose 116 mg/dl (74-100); Lipase 42 U/L (23-300); Magnesium 1.9 mg/dl (1.6-2.3); Total Protein,Serum 7.0 g/dl (6.3-8.2)
[2024-12-19 13:51] LABS: Activated Partial Thrombo Time 21.9 seconds (22.8-30.6); INR 1.03 (0.9-1.1); Prothrombin Time 11.4 seconds (10.1-12.5); Troponin I < 0.01 ng/ml (0.00-0.034)
--- NOTE | 2024-12-19 14:38 | PC.NURSE ---
attempted to in and out cath patient for sterile urine specimen and no urine was obtained, have sent for bladder scanner
[2024-12-19] MEDS: 0.9 % SODIUM CHLORIDE 1000ML 1,000 ML 999 ML IV (14:42)
[2024-12-19 16:20] LABS: Microscopic, Urine URINE MICROSCOPIC (MICROSCOPIC)
[2024-12-19 16:25] LABS: Color,Urine YELLOW (Yellow); Glucose,Urine (UA) Negative (Negative); Ketones,Urine TRACE (Negative); Leukocyte Esterase,Urine Negative (Negative); PH,Urine 5.5 (5.0-8.5); Protein,Urine Negative (Negative); Specific Gravity, Urine 1.025 (1.005-1.030); Urobilinogen,Urine 1.0 EU/dl (0.2)
[2024-12-19 16:38] LABS: Bilirubin,Urine 1+ (Negative)
[2024-12-19 16:39] LABS: Bacteria,Urine Trace /lpf; Squamous Epithelial Cell,Urine Occasional #/hpf (0-5); WBC,Urine Occasional #/hpf (0-3)
== END 2024-12-19 17:14 | disposition home or self-care (01) ==
PROVIDERS: Nurse Practitioner; Emergency Provider Student in an Organized Health Care Education/Training Program; PCP Nurse Practitioner Family
DX: M25.551 Pain in right hip (principal); R29.6 Repeated falls; I10 Essential (primary) hypertension; E78.5 Hyperlipidemia, unspecified; Z86.79 Personal history of other diseases of the circulatory system; Z79.01 Long term (current) use of anticoagulants; W19.XXXA Unspecified fall, initial encounter; Z87.891 Personal history of nicotine dependence
CPT/HCPCS: 70450; 72125; 72192; 80053; 81001; 82962; 83690; 83735; 84484; 85025; 85610; 85730; 87636; 93005; 96361; 96374; 96375; 99285; J0131; J2270; J2405; J7030